=== PATIENT | female | born 1975 | race Caucasian/White ===

== ENCOUNTER 2021-09-25 18:17 | Emergency (ER) | payer OTHER, SELFPAY ==
[2021-09-25 18:35] VITALS: BP 117/68; PULSE 74; RESP 18; TEMP 36.6; O2SAT 99
--- NOTE | 2021-09-25 18:44 | ED.URI ---
HPI - URI/Sore Throat General Chief Complaint: Upper Respiratory Infection Stated Complaint: sorethroat,rt ear pain Source: patient Mode of arrival: ambulatory Limitations: no limitations History of Present Illness HPI Narrative: 46-year-old female presents to [facility] with complaints of right ear pain on and off for the past 2 weeks. Patient reports that pain became worse over the past couple days. Patient has been taking [id number] ibuprofen with minimal relief. Patient reports that she had COVID 1 month ago and continues with a dry lingering cough. Patient denies fever, bodies, chills, shortness of breath or wheezing. Patient is a non-smoker. Patient denies sick contacts. Patient denies recent travel MD elicited complaint: other (right ear pain ) Onset (ago): week(s) (2) Consistency: constant Able to tolerate fluids by mouth: Yes Exacerbating factors: swallowing Treatments prior to arrival: ibuprofen Related Data Home Medications Medication Instructions Recorded Confirmed atorvastatin 10 mg PO DAILY 09/25/21 09/25/21 citalopram 40 mg PO DAILY 09/25/21 09/25/21 levothyroxine 175 mcg PO DAILY 09/25/21 09/25/21 losartan 100 mg PO DAILY 09/25/21 09/25/21 Allergies Allergy/AdvReac Type Severity Reaction Status Date / Time Cephalosporins Allergy Intermediate Rash Verified 09/25/21 18:42 Review of Systems Constitutional: Constitutional: Denies chills, Denies fatigue, Denies fever(s) and Denies weakness ENT: Denies dysphagia, Denies dizziness, Denies epistaxis and Denies sore throat Comments: Right ear pain Cardiovascular: Cardiovascular: Denies chest pain, Denies rapid heart rate and Denies slow heart rate Respiratory: Respiratory: Denies chest congestion, Denies cough and Denies wheezing Gastrointestinal: Gastrointestinal: Denies abdominal pain, Denies diarrhea, Denies nausea and Denies vomiting Integumentary/Breasts: Skin/Breast: Denies rash Neurologic: Denies dizziness PMF Surgical History Surgical History (Updated 09/25/21 @ 18:48 by Emma Goldsmith APRN) H/O: hysterectomy History of carpal tunnel release Family History Family History (Updated 09/25/21 @ 18:48 by Emma Goldsmith APRN) Father Lung cancer Social History Social History (Updated 09/25/21 @ 18:48 by MARIBELL Post Smoking status: Never smoker Comments At time of signature, I agree with nursing past medical, surgical, social and family history. There is no relevant family history pertinent to the presenting complaint. Exam Const: General: no acute distress and alert Nutritional Appearance: well nourished Orientation/consciousness: patient oriented x3 HENMT: Head: normal to inspection Ears: external ears normal, EAC's normal and TM abnormal with fluid behind the TM on the right; not erythematous General nose exam: Normal external nose present and no nasal discharge noted Mouth: Yes moist mucous membranes Throat: posterior oropharynx normal and uvula midline Neck: Neck: normal visual inspection Resp: Effort & Inspection: normal respiratory effort, not labored and not tachypneic Auscultation: clear to auscultation bilaterally Cardio: Rate: regular rate, not bradycardic and not tachycardic Rhythm: regular rhythm Skin: General skin exam: normal color Rashes: no rashes Wounds: no wounds Neuro: General: patient oriented x3, moves all extremities and no meningeal signs Speech: normal speech Extrem: General: normal to inspection Psych: Appearance: grossly normal Mental Status: mental status grossly normal Affect: normal affect Attitude: cooperative Thought content: Yes Normal thought content present Course Course Level of Care: Express Care Visit Vital Signs Vital signs: Vital Signs Temperature 36.6 C 09/25/21 18:35 Pulse Rate 74 09/25/21 18:35 Respiratory Rate 18 09/25/21 18:35 Blood Pressure 117/68 09/25/21 18:35 Pulse Oximetry 99 09/25/21 18:35 Temperature 36.6
== END 2021-09-25 18:58 | disposition home or self-care (01) ==
PROVIDERS: Emergency Provider Nurse Practitioner Family
DX: H65.01 Acute serous otitis media, right ear (principal); E78.00 Pure hypercholesterolemia, unspecified; I10 Essential (primary) hypertension; E03.9 Hypothyroidism, unspecified
CPT/HCPCS: 87081; 87880; 99213; G0463

== ENCOUNTER 2023-07-12 10:56 | Emergency (ER) | payer OTHER, SELFPAY ==
[2023-07-12 11:09] VITALS: BP 130/67; PULSE 83; RESP 16; TEMP 36.7; O2SAT 99
--- NOTE | 2023-07-12 11:29 | ED.URI ---
HPI - URI/Sore Throat General Chief Complaint: Upper Respiratory Infection Stated Complaint: cough,congestion,bilateral ear pain Source: patient Mode of arrival: ambulatory Limitations: no limitations History of Present Illness HPI Narrative: 48-year-old female presents to [facility] with complaints of bilateral ear pain, left is worse than right, runny nose, cough and congestion since this morning. Patient reports that she traveled to [place] last week. Patient denies sick contacts. Patient is nonsmoker. Patient has been taking [id number] Zyrtec and ibuprofen with minimal relief. Patient denies nausea, vomiting, diarrhea, shortness of breath or wheezing. MD elicited complaint: rhinorrhea and nasal congestion Onset (ago): day(s) (1) Able to tolerate fluids by mouth: Yes Treatments prior to arrival: ibuprofen Related Data Home Medications Medication Instructions Recorded Confirmed citalopram 40 mg tablet 40 mg PO DAILY 09/25/21 07/12/23 levothyroxine 175 mcg tablet 175 mcg PO DAILY 09/25/21 07/12/23 losartan 100 mg tablet 100 mg PO DAILY 09/25/21 07/12/23 Allergies Allergy/AdvReac Type Severity Reaction Status Date / Time Cephalosporins AdvReac Mild Hives Verified 07/12/23 11:02 Review of Systems Constitutional: Constitutional: Denies chills, Denies fatigue, Denies fever(s) and Denies weakness ENT: Denies epistaxis, Reports nasal congestion and Denies sore throat Cardiovascular: Cardiovascular: Denies chest pain Respiratory: Respiratory: Reports cough, Denies dyspnea and Denies wheezing Gastrointestinal: Gastrointestinal: Denies diarrhea, Denies nausea and Denies vomiting Musculoskeletal: Musculoskeletal: Denies arthralgias and Denies joint swelling Integumentary/Breasts: Skin/Breast: Denies rash Neurologic: Denies vertigo, Denies dizziness, Denies syncope and Denies headache(s) [facility] Surgical History Surgical History H/O: hysterectomy History of carpal tunnel release Family History Family History Father Lung cancer Social History Social History Smoking status: Never smoker Comments At time of signature, I agree with nursing past medical, surgical, social and family history. There is no relevant family history pertinent to the presenting complaint. Exam Const: General: healthy appearing and no acute distress Nutritional Appearance: well nourished Orientation/consciousness: patient oriented x3 Limitations: no limitations HENMT: Head: normal to inspection Ears: external ears normal, EAC's normal and TM abnormal wth effusion serous bilateral and erythematous on the left Face and sinus: normal facial exam Mouth: Yes Normal oral and palatal mucosa present and Yes moist mucous membranes Teeth and gingiva: dentition normal Throat: posterior oropharynx normal and uvula midline Other: Bilateral nasal congestion noted Eyes: Conjunctivae: conjunctivae normal Neck: Neck: normal visual inspection Resp: Effort & Inspection: normal respiratory effort and not labored Auscultation: clear to auscultation bilaterally, no crackles, no rales, no rhonchi and no wheezes Cardio: Rate: regular rate Rhythm: regular rhythm Skin: General skin exam: normal color Rashes: no rashes Neuro: General: patient oriented x3 Speech: normal speech Gait exam (Neuro): Normal gait present Psych: Affect: normal affect Attitude: cooperative Course Course Level of Care: Express Care Visit Vital Signs Vital signs: Vital Signs Temperature 36.7 C 07/12/23 11:09 Pulse Rate 83 07/12/23 11:09 Respiratory Rate 16 07/12/23 11:09 Blood Pressure 130/67 07/12/23 11:09 Pulse Oximetry 99 07/12/23 11:09 Oxygen Delivery Room Air 07/12/23 11:09 Temperature 36.7 C 07/12/23 11:09 Pulse Rate 83 07/12/23 11:09 Respirator
== END 2023-07-12 11:38 | disposition home or self-care (01) ==
PROVIDERS: Emergency Provider Nurse Practitioner Family
DX: H66.92 Otitis media, unspecified, left ear (principal)
CPT/HCPCS: 99213; G0463

== ENCOUNTER 2023-07-29 10:14 | Emergency (ER) | payer OTHER, SELFPAY ==
--- NOTE | ~2023-07-29 | XR_ITS ---
EXAMINATION: XR chest 2V 07/29/2023 11:29 INDICATION: Cough and fever PROCEDURE: 2 view chest COMPARISON: No prior studies for comparison. FINDINGS: The lungs are clear. The cardiomediastinal silhouette is within normal limits. There are no pleural effusions. There is no pneumothorax suspected. IMPRESSION: 1: NO ACUTE CARDIOPULMONARY DISEASE. Reviewed, dictated and finalized at location L. K TECHNICIAN
[2023-07-29 10:32] VITALS: BP 119/68; PULSE 87; RESP 18; TEMP 36.8; O2SAT 100
--- NOTE | 2023-07-29 11:06 | ED.URI ---
HPI - URI/Sore Throat General Chief Complaint: Upper Respiratory Infection Stated Complaint: Cough/Ears/Fever Time Seen by Provider: 07/29/23 11:06 Source: patient, RN notes reviewed and old records reviewed Mode of arrival: ambulatory Limitations: no limitations History of Present Illness HPI Narrative: 48-year-old female presents to the [facility] with complaints of cough, continued ear discomfort and fevers. Symptoms started prior to the 12 of July. Patient is a smoker Onset (ago): week(s) Treatments prior to arrival: antibiotics and other (steriod) Related Data Home Medications Medication Instructions Recorded Confirmed citalopram 40 mg tablet 40 mg PO DAILY 09/25/21 07/29/23 levothyroxine 175 mcg tablet 175 mcg PO DAILY 09/25/21 07/29/23 losartan 100 mg tablet 100 mg PO DAILY 09/25/21 07/29/23 evolocumab 140 mg/mL subcutaneous 140 mg subcut [id number] 07/29/23 07/29/23 syringe (Repatha Syringe) Allergies Allergy/AdvReac Type Severity Reaction Status Date / Time Cephalosporins AdvReac Mild Hives Verified 07/29/23 10:38 Review of Systems Review of Systems: All systems reviewed & are unremarkable except as noted in HPI and below Constitutional: Constitutional: Reports no additional constitutional complaints Eyes: Eyes: Reports no additional eye complaints ENT: Reports as per HPI and Reports sore throat Cardiovascular: Cardiovascular: Reports no additional cardiovascular complaints, Denies chest pain and Denies dyspnea Respiratory: Respiratory: Reports as per HPI, Denies chest congestion, Denies cough and Denies dyspnea Gastrointestinal: Gastrointestinal: Reports no additional gastrointestinal complaints, Denies abdominal pain, Denies nausea and Denies vomiting Musculoskeletal: Musculoskeletal: Reports no additional musculoskeletal complaints Integumentary/Breasts: Skin/Breast: Reports system reviewed and no additional complaints, except as docu Neurologic: Reports system reviewed and no additional complaints, except as documented Psychiatric: Psychiatric: Reports no additional psychiatric complaints Allergic/Immunologic: Allergic/Immunologic: Reports no additional allergic/immunologic complaints [facility] Surgical History Surgical History H/O: hysterectomy History of carpal tunnel release Family History Family History Father Lung cancer Social History Social History Smoking status: Never smoker Comments At the time of my signature, I reviewed and agree with the nursing past medical, surgical, social, and family history. There is no relevant family history pertinent to the patient complaint. Exam Const: General: cooperative, healthy appearing, comfortable, no acute distress, well developed, alert and well nourished Nutritional Appearance: well nourished Orientation/consciousness: patient oriented x3 Limitations: no limitations HENMT: Head: normal to inspection Ears: hearing grossly normal bilaterally, external ears normal, mastoids normal, no periauricular adenopathy and TM abnormal wth effusion serous bilateral Face/Nose/Sinus: Normal external nose present, Normal nares present, Normal nasal mucous membranes and turbinates present, normal facial exam and face symmetric Face and sinus: normal facial exam and face symmetric Mouth: Yes Normal oral and palatal mucosa present, Yes lip normal and Yes moist mucous membranes Throat: posterior oropharynx normal and uvula midline Eyes: General: appearance normal, both eyes and all related structures Alignment and Position: alignment normal Periorbital: periorbital findings normal Pupils: Equal, round and reactive pupils present EOM: EOMs intact bilaterally Neck: Neck: normal visual inspection, full ROM, no lymphadenopathy and no meningeal signs Chest: Chest palpation & inspection:
== END 2023-07-29 11:57 | disposition home or self-care (01) ==
PROVIDERS: Emergency Provider Nurse Practitioner
DX: J40 Bronchitis, not specified as acute or chronic (principal); J32.9 Chronic sinusitis, unspecified; H65.03 Acute serous otitis media, bilateral; Z79.899 Other long term (current) drug therapy
CPT/HCPCS: 71046; 99213; G0463

== ENCOUNTER 2024-08-03 05:16 | Emergency (ER) | payer SELFPAY ==
[2024-08-03 05:19] VITALS: BP 150/45; PULSE 83; RESP 16; TEMP 36.9; O2SAT 96
--- NOTE | 2024-08-03 07:10 | PC.NURSE ---
PT NOT FOUND IN WAITING ROOM.
--- NOTE | 2024-08-03 07:10 | PC.NURSE ---
Patient did not answer page
--- OUTSIDE RECORDS SUMMARY | 2024-08-09 23:26 | XMS_ITS | Clinical Summary ---
Author Organization [facility] Address [facility] 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 Role Phone Unavailable Primary Care Provider Unavailabl e Social History Tobacco Use Types Packs/Day Years Used Date Smoking Tobacco: Never Assessed Comments Unknown Sex and Gender Information Value Date Recorded Sex Assigned at Not on file Legal Sex Female 7:02 PM CDT Gender Identity Not on file Sexual Orientation Not on file Plan of Treatment Health Maintenance Due Date Last Done Comments Cervical Cancer Screening Pa p Smear (Age 30 to 64) Every 3 Years 1973 Colorectal Cancer Screening Colonoscopy (10 Years) 1973 Annual Physical 02/01/1976 Hepatitis C 1991 DTaP, Tdap and Td Vaccines ( 1 - Tdap) 02/01/1992 Hepatitis B Vaccines (1 of 3 - 19+ 3-dose series) 02/01/1992 Cervical Cancer Screening Pa p with HPV Testing (Age 30 to 64) Every 5 Years 2003 Cervical Cancer Screening with HPV 2003 Mammogram Screening 2013 Zoster Vaccines (1 of 2) 2023 COVID-19 Vaccine (2023-2 5 season) 2024 Influenza Adult (#1) 2024 Meningococcal Vaccine Aged Out No majo janeth eligible based on patient's age to complete this topic Pneumococcal Vaccine: Pediat rics (0 to 5 Years) and At-Risk Patients (6 to 64 Years) Aged Out No longer eligible b ased on patient's age to complete this topic RSV Immunizations Under 20 Months Aged Out No longer eligible based on patient's age to complete this topic
--- OUTSIDE RECORDS SUMMARY | 2024-08-09 23:26 | XMS_ITS ---
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 Role Phone Cassius Ortega Primary Care Provider Anjali Zendejas [phone] REASON FOR VISIT RT achilles tendonitis Encounters Encounter Location Date Provider Diagnosis 1 OF Meenakshi Andrade [place] [address] [employer] [address] [address] 03/06/2024 Anjali Varela Plan Of Treatment No Information Progress Notes * Rafita ALFORDOB:[birth year] (49 yo F)Acc No.[id number]:03/06/2024 Progress Notes Patient:?Deejay ALFORD Provider:?Anjali Varela DPM :1975???Age:49 Y???Sex:Female D ate:03/06/2024 Address: [facility] Pcp:Cassius Ortega Subjective: * Chief Complaints: * ???1. RT achilles tendonitis . * HPI: ???MA assisting with visit::?HPI/Rooming:?......?Primary reason for visit::?Follow-up:?49 y/o female RTO for f/u of RT achilles tendonitis. At last visit, she was advised to continue doing her stretching exercises, RICE, try wearing her previous CAM walker boot consistently. Today, she reports.? * Medical History:? Objective: * Vitals:? * Examination: ???General Examination: ?Constitutional / Appearance: ?No acute distress , Well nourished, Appropriate personal hygiene.?Mental status: ?Cooperative, Oriented to person, place and time, Mood and affect: normal, Judgement and intellect: normal with appropriate response to questions.?Shoes today:?XXXXXX.?Lower Extremity VASCULAR: : ?Pulses:?DP and PT pulses, palpable, bilateral.?Temperature gradient: ?warm from proximal to distal, bilateral.?Pedal hair: ?present, bilateral.?Capillary refill at distal toes?less than 3 seconds.?Lower Extremity DERM: : ?Skin: ?well hydrated , no suspicious lesions, without interdigital maceration, bilateral.?Lower Extremity NEURO: : ?Neurological status: ?normal sensation to sharp/ dull with normal and symmetric muscle tone bilateral.?Lower Extremity MSK: : ?Gait?Gait unremarkable with normal posture, propulsion and balance.?Left lower extremity inspection and palpation: ?No palpable masses or nodules noted..?Right lower extremity inspection and palpation: ?No palpable masses or nodules noted. .? Assessment: Plan: * Treatment: * Images: * Electronic signature of Rosalind Varela DPM on 08/09/2024 at 11:26 PM CLINIC ASSISTANT Sign off status: Pending * Provider:?Anjali Varela DPM Date:?2023 Generated for Edwina marc/Deana/Yomaira on:?08/09/2024 11:26 PM CLINIC ASSISTANT History and Physical Notes * HPI (History of Present Illness) Category Sub-Category Detail Notes Category Not es Primary reason for visit: Follow-up: 49 y/o female RTO for f/u of RT achilles tendonitis. At last visit, she was advised to continue doing her stretching exercises, RICE, try wearing her previous CAM walker boot consistently. Today, she reports MA assisting with visit: HPI/Rooming: ..... Examination Category Sub-Category Detail Notes Category Not es General Examination Mental status: Cooperative, Oriented to person, place and time, Mood and affect: normal, Judgement and intellect: normal with appropriate response to questions Shoes today: XXXXXX Constitutional / Appearance: No acute di stress , Well nourished, Appropriate personal hygiene Lower Extremity VASCULAR: Pulses: DP and PT pulse s, palpable, bilateral Temperature gradient: warm from proximal to distal, bilateral Pedal hair: present, bilateral Capillary refill at distal toes less sandrita n 3 seconds Lower Extremity NEURO: Neurological status: norm al sensation to sharp/ dull with normal and symmetric muscle tone bilateral Lower Extremity MSK: Left lower extremit y inspection and palpation: No palpable masses or nodules noted. Right lower extremity inspec tion and palpation: No palpable masses or nodules noted. Gait Gait unremarkable wi th normal posture, propulsion and balance Lower Extremity DERM: Skin: well hydra dominique , no suspicious lesions, without interdigital maceration, bilateral
--- OUTSIDE RECORDS SUMMARY | 2024-08-09 23:26 | XMS_ITS | Patient Health Record ---
Author Organization 1 OF Meenakshi alexander [facility] Address [address] [place] [address] Care Team Providers Care Test Specialist Name Role Phone Cassius Ortega Primary Care Provider Anjali Zendejas Unavailable [phone] Allergies Allergen (clinical drug ingredient) Drug/Non Drug Allergy documented on EMR Reaction Allergy Type Onset Date Status Medicinal cephalosporin and acting as antibacterial agent (FN) Cephalosporins (uncoded) Unknown Allergy Active Reason For Referral No Information Medications Medication SIG (Take, Route, Fr equency, Duration) Notes Start Date End Date Status CeleXA Active Levothyroxine Sodium Active ibuprofen Active Repatha 140 MG/ML 1 mL Subcutaneous Active Losartan Potassium A ctive Social History Tobacco Use: Social History Observation Description Date Details (start date - stop date) Never Smoker NA - NA Tobacco Use/Smoking Question Answer Notes Are you a nonsmoker Tobacco Control (Standard) Question Answer Notes Tobacco use: Nonsmoker Problems Problem Type SNOMED Code ICD Code Onset Dates Problem Status W/U Status Risk Notes Problem 669232182 Gastrocnemius equinus of left lower extremity (M21.6X2) Active confirmed Vital Signs Height 65 in 02/02/2024 Weight 200 lbs 02/02/2024 BMI 33.28 kg/m2 02/02/2024 Encounters Encounter Location Date Provider Diagnosis 1 OF Meenakshi Andrade [facility] [address] [place] [address] 02/02/2024 Anjali Varela Right Achilles tendinitis M76.61 and Right foot pain M79.671 Assessments Encounter Date Diagnosis (ICD Code) Assessment Notes Treatment Notes Treatment Clinical Notes Section Notes 02/02/2024 Right foot pain (ICD-10 - M79.671) 02/02/2024 Right Achilles tendinitis (ICD-10 - M76.61) Patient visit today included a review of medical history, review of systems, physical exam and discussion of exam findings, diagnostic test results, and discussion of diagnoses and treatment options. Recommended initial treatment today consisting of resting the foot as much as possible, icing of the foot, continued use of the topical and oral anti-inflammatory medications. She was advised to continue doing the exercises that she was given by her friend. I discussed the potential use of heel lifts in her shoes. I recommended that she try wearing the Cam Walker boot that she has at home consistently to reduce inflammation in the Achilles tendon. I discussed the potential of ordering an MRI if her symptoms do not improve. All questions and concerns were addressed. Plan Of Treatment No Information Insurance Providers Payer Name Payer Address Payer Phone Subscriber Number Group Number Insured Name Patient Relationship to Insured Coverage Start Date Coverage End Date [address] [place] [address] [phone] [id number] Deejay Paz Self - patient is the insured Medical (General) History Medical History History ICD Code Anemia, GERD, high blood pressure, thyro id problems Surgical History Surgery Date(Month/Year) hysterectomy
--- OUTSIDE RECORDS SUMMARY | 2024-08-09 23:26 | XMS_ITS ---
Author Organization 1 OF Meenakshi alexander [facility] Address [address] [facility] [address] [place] [address] Care Team Providers Care Candy Supervisor Name Role Phone Cassius Ortega Primary Care Provider Anjali Zendejas Unavailable [phone] Allergies Allergen (clinical drug ingredient) Drug/Non Drug Allergy documented on EMR Reaction Allergy Type Onset Date Status Medicinal cephalosporin and acting as antibacterial agent (FN) Cephalosporins (uncoded) Unknown Allergy Active REASON FOR VISIT RT Achilles Medications Medication SIG (Take, Route, Fr equency, Duration) Notes Start Date End Date Status CeleXA Active Levothyroxine Sodium Active ibuprofen Active Repatha 140 MG/ML 1 mL Subcutaneous Active Losartan Potassium A ctive Social History Tobacco Use: Social History Observation Description Date Details (start date - stop date) Never Smoker NA - NA Tobacco Control (Standard) Question Answer Notes Tobacco use: Nonsmoker Vital Signs Height 65 in 02/02/2024 Weight 200 lbs 02/02/2024 BMI 33.28 kg/m2 02/02/2024 Encounters Encounter Location Date Provider Diagnosis 1 OF Meenakshi Andrade [facility] [address] [address] 02/02/2024 Anjali Varela Right Achilles tendinitis M76.61 and Right foot pain M79.671 Assessments Encounter Date Diagnosis (ICD Code) Assessment Notes Treatment Notes Treatment Clinical Notes Section Notes 02/02/2024 Right Achilles tendinitis (ICD-10 - M76.61) [...] improve. All questions and concerns were addressed. 02/02/2024 Right foot pain (ICD-10 - M79.671) Plan Of Treatment Treatment Notes Assessment Notes Right Achilles tendinitis Patient visit today included a review of [...] improve. All questions and concerns were addressed. Next Appt Details Follow Up: 1 month,Perlita barger on: Progress Notes * Rafita L[birth year]OB:[birth year] (49 yo F)Acc No.[id number]:02/02/2024 Progress Notes Patient:?Deejay ALFORD Provider:?Anjali Varela DPM :1975???Age:49 Y???Sex:Female D ate:02/02/2024 [facility] Pcp:Cassius Ortega Subjective: * Chief Complaints: * ???RT Achilles * HPI: ???MA assisting with visit::?HPI/Rooming:?Janie.?Primary reason for visit::?New Patient Evaluation: ?49 year old female, previous patient, PTO with chief complaint of RT heel pain of 6 months duration. Pt describes pain as sharp, aching, and burning and rates it as 7/10. Pt states the condition has worsened over time. Pt reports she has been RICEing and takes ibuprofen for the pain but has felt little relief.?Pt reports she had a similar issue in her LT heel a few years ago which has improved, but now states that the treatments she had used in the past are not helping her RT heel. She has been using diclofenac gel. She has her old CAM walker boot at home that she tried for one weekend. She states that her friend is a physical therapist and has been giving her exercises for it.? She denies any injury to it..? * ROS:?GENERAL:?NAUSEA, FEVER OR CHILLS?denies,?denies.?UNEXPLAINED LOSS OR GAIN OF WEIGHT?denies.?UNEXPLAINED FATIGUE OR LACK OF ENERGY?denies.?RECENT FALL?denies.?PERIPHERAL VASCULAR:?FATIGUE IN CALF MUSCLE WHILE WALKING? admits.?PAIN, SWELLING OR FEELING OF TIGHTNESS IN LEG ?denies.?FREQUENT OR CHRONIC SWELLING OF LEGS?denies.?TOES TURN BLUE, WHITE, PAINFUL WITH COLD TEMPERATURE?denies.?NEUROLOGICAL:?DIZZINESS, LIGHT HEADED OR FAINTING?denies.?WEAKNESS OR PARALYSIS?denies.?DIFFICULTY WITH BALANCE?denies.?PERIPHERAL NEUROLOGICAL:?BURNING, TINGLING, STINGING SENSATION OF FEET?denies.?NUMBNESS OF FOOT / FEET?denies.?WEAKNESS OF FOOT / FEET?denies.?GASTROINTESTINAL:?ABDOMINAL PAIN?denies.?BLOODY STOOL?denies.?FREQUENT HEARTBURN? admits.?FREQUENT NAUSEA OR VOMITING?denies.?SKIN:?EXCESSIVE SWEATING OF FEET / HANDS?denies.?CHRONIC OR RECURRENT SKIN RASH?denies.?NONHEALING SKIN LESIONS?denies.?TENDENCY TO FORM THICK SCARS (KELOIDS)?denies.?MUSCULOSKELETAL:?LOW BACK PAIN? admits.?HIP PAIN? admits.?KNEE PAIN?denies.?SWELLING / STIFFNESS JOINTS OF HANDS / FEET?denies.?ENDOCRINE:?DELAYED HEALING OF WOUNDS?denies.?INTOLERANCE TO HEAT OR COLD?denies.?EXCESSIVE THIRST?denies.?FREQUENT URINATION?denies.?HEMATOLOGY/ONCOLOGY:?ANEMIA?denies.?BLEED or BRUISE EASILY?denies.?ANTI-COAGULANT USE?denies.? * Medical History:? * Surgical History:?hysterecto my * Hospitalization/Major Diagno stic Procedure:? * Family History:? rheumatoid arthritis, cancer. * Social History:?Tobacco Use:?Tobacco Control (Standard)?Tobacco use:?Nonsmoker ???Drugs/Alcohol:?Alcohol use: Social alcohol use. ?Recreational drugs: Patient denies recreational drug use. ???Miscellaneous:?Exercise: Moderate. ?Living with: family. 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 * Medications:?TakingRepatha 1 40 MG/ML Solution Prefilled Syringe 1 mL Subcutaneous Losartan Potassium CeleXA Levothyroxine Sodium ibuprofen Medication List reviewed and reconciled with the patientTaking Repatha 140 MG/ML Solution Prefilled Syringe 1 mL Subcutaneous Taking Losartan Potassium Taking CeleXA Taking Levothyroxine Sodium Taking ibuprofen Medication List reviewed and reconciled with the patient * Allergies:?Cephalosporins Objective: * Vitals:?Wt:200lbs, Wt-k .72 kg, Ht:65in, BMI:33.28Index. * Examination: ???General Examination: ?Constitutional / Appearance: ?No acute distress , Well nourished, Appropriate personal hygiene.?Mental status: ?Cooperative, Oriented to person, place and time, Mood and affect: normal, Judgement and intellect: normal with appropriate response to questions.?Shoes today:?flip flops.?Lower Extremity VASCULAR: : ?Pulses:?DP and PT pulses, palpable, bilateral.?Temperature gradient: ?warm from proximal to distal, bilateral.?Pedal hair: ?present, bilateral.?Venous insufficiency edema:?No edema noted to the right ankle..?Capillary refill at distal toes? less than 3 seconds, bilateral.?Lower Extremity DERM: : ?Skin: ?well hydrated , no suspicious lesions, no ecchymosis, bilateral.?Lower Extremity MSK: : ?Gait? Gait unremarkable with normal posture, propulsion and balance.?Muscle strength: ?5/5, all 4 quadrants tested, bilateral.?Left lower extremity inspection and palpation: ?No palpable masses or nodules noted..?Right lower extremity inspection and palpation: ?No palpable masses or nodules noted. The Achilles tendon is intact. Pain with palpation along the course of the Achilles tendon, especially at the insertion. No significant thickening of the Achilles tendon noted. Pain with dorsiflexion of the foot against resistance.?Less than 10 degrees of ankle joint dorsiflexion noted with the knee extended, which increases with the knee flexed. No pain with lateral squeeze test of the calcaneus..?Lower Extremity NEURO: : ?General sensation appears? intact, bilateral.?Muscle tone? within normal limits, bilateral.?Diagnostic Studies: : ?X-rays of right lower extremity:?3 views of right foot: No acute fractures or dislocations noted.? No acute abnormalities noted to the calcaneus.? Small posterior calcaneal enthesopathy noted.? Pes cavus foot type with increased calcaneal inclination angle, decreased talar declination angle..? Assessment: * Assessment: 1.?Right foot pain - M79.671 ???2.?Right Achilles tendinitis - M76.61 (Primary)??? Plan: * Treatment: * Procedure Codes:?37763 X-RAY FOOT (3 views), Modifiers: RT * Follow Up:?1 month,prn * Images: * Sign off status: Completed true * Provider:Helga Varela DPM Date:?2023 Generated for Edwina marc/Deana/Yomaira on:?08/09/2024 11:26 PM BURRER OPERATOR History and Physical Notes * HPI (History of Present Illness) Category Sub-Category Detail Notes Category Not es Primary reason for visit: New Patient Evaluation: 49 year old female, previous patient, PTO with chief complaint of RT heel pain of 6 months duration. Pt describes pain as sharp, aching, and burning and rates it as 7/10. Pt states the condition has worsened over time. Pt reports she has been RICEing and takes ibuprofen for the pain but has felt little relief. Pt reports she had a similar issue in her LT heel a few years ago which has improved, but now states that the treatments she had used in the past are not helping her RT heel. She has been using diclofenac gel. She has her old CAM walker boot at home that she tried for one weekend. She states that her friend is a physical therapist and has been giving her exercises for it. She denies any injury to it. MA assisting with visit: HPI/Rooming: Janie Examination Category Sub-Category Detail Notes Category Not es General Examination Mental status: Cooperative, Oriented to person, place and time, Mood and affect: normal, Judgement and intellect: normal with appropriate response to questions Shoes today: flip flops Constitutional / Appearance: No acute di stress , Well nourished, Appropriate personal hygiene Lower Extremity VASCULAR: Venous insufficiency e donal: No edema noted to the right ankle. Pulses: DP and PT pulses, pa lpable, bilateral Temperature gradient: warm from proximal to distal, bilateral Pedal hair: present, bilateral Capillary refill at distal toes less sandrita n 3 seconds, bilateral Lower Extremity NEURO: General sensation appears intac t, bilateral Muscle tone within normal limits , bilateral Lower Extremity MSK: Muscle strength: 5/5, all 4 quadr ants tested, bilateral Left lower extremity inspect ion and palpation: No palpable masses or nodules noted. Right lower extremity inspec tion and palpation: No palpable masses or nodules noted. The Achilles tendon is intact. Pain with palpation along the course of the Achilles tendon, especially at the insertion. No significant thickening of the Achilles tendon noted. Pain with dorsiflexion of the foot against resistance. Less than 10 degrees of ankle joint dorsiflexion noted with the knee extended, which increases with the knee flexed. No pain with lateral squeeze test of the calcaneus. Gait Gait unremarkable wi th normal posture, propulsion and balance Diagnostic Studies: X-rays of right lowe r extremity: 3 views of right foot: No acute fractures or dislocations noted. No acute abnormalities noted to the calcaneus. Small posterior calcaneal enthesopathy noted. Pes cavus foot type with increased calcaneal inclination angle, decreased talar declination angle. Lower Extremity DERM: Skin: well hydra dominique , no suspicious lesions, no ecchymosis, bilateral
--- OUTSIDE RECORDS SUMMARY | 2024-08-09 23:27 | XMS_ITS | Encounter Summary ---
Author Organization [facility] Address [facility] [facility] [place] [address] [place] [address] Care Team Providers Care Meat Molder Name Role Phone Unavailable Primary Care Provider Unavailabl e Encounter Details Date Type Department Care Team (Late st Contact Info) Description 10/28/2014 Abstract [facility] [address] [place] [address] Eunice Benites MD [address] [place] [address] Social History Tobacco Use Types Packs/Day Years Used Date Smoking Tobacco: Never Assessed Comments Unknown Sex and Gender Information Value Date Recorded Sex Assigned at Not on file Legal Sex Female 7:02 PM CDT Gender Identity Not on file Sexual Orientation Not on file documented as of this encounter Plan of Treatment Not on file documented as of this encounter Visit Diagnoses Diagnosis Acute bronchitis documented in this encounter
--- OUTSIDE RECORDS SUMMARY | 2024-08-09 23:27 | XMS_ITS | Encounter Summary ---
Author Organization [facility] Address [facility] [place] [address] [place] [address] Care Team Providers Care Roll Wrapper Name Role Phone Unavailable Primary Care Provider Unavailabl e Encounter Details Date Type Department Care Team (Late st Contact Info) Description 12/22/2003 Abstract [facility] Emergency Services [address] [facility] [place] [id number] Raphael Gilbert, DO [address] [place] [id number] Social History Tobacco Use Types Packs/Day Years Used Date Smoking Tobacco: Never Assessed Comments Unknown Sex and Gender Information Value Date Recorded Sex Assigned at Not on file Legal Sex Female 7:02 PM CDT Gender Identity Not on file Sexual Orientation Not on file documented as of this encounter Plan of Treatment Not on file documented as of this encounter Visit Diagnoses Not on filedocumented in this encounter
--- OUTSIDE RECORDS SUMMARY | 2024-08-09 23:27 | XMS_ITS | Encounter Summary ---
Author Organization [facility] Address [facility] [facility] [place] [address] [place] [address] Care Team Providers Care Terrazzo Mechanic Name Role Phone Unavailable Primary Care Provider Unavailabl e Encounter Details Date Type Department Care Team (Late st Contact Info) Description 12/23/2014 Abstract [facility] [address] [place] [address] Eunice Benites MD [address] [place] [address] Social History Tobacco Use Types [...]
--- OUTSIDE RECORDS SUMMARY | 2024-08-09 23:27 | XMS_ITS | Encounter Summary ---
Author Organization [facility] Address [facility] [place] [address] [place] [address] Care Team Providers Care Continuous Improvement Specialist Name Role Phone Unavailable Primary Care Provider Unavailabl e Encounter Details Date Type Department Care Team (Late st Contact Info) Description 06/04/2013 Abstract [facility] Emergency Services [address] [place] [address] Omar Castañeda [place] [address] Social History Tobacco Use Types Packs/Day Years [...]
--- OUTSIDE RECORDS SUMMARY | 2024-08-09 23:28 | XMS_ITS | Encounter Summary ---
Author Organization [facility] Address [address] [place] [address] Care Team Providers Care Wallcovering Hanger Name Role Phone Cassius Ortega NP Primary Care Provider [phone] Roya Andre Unavailable [phone] Encounter Details Date Type Department Care Team (Late st Contact Info) Description 12/10/2023 3:30 PM CDT Lab [address] [address] Primary hypertension Social History Tobacco Use Types Packs/Day Years Used Date Smoking Tobacco: Never Cigarettes Smokeless Tobacco: Never Alcohol Use Standard Drinks/Week Comments Yes 0 (1 standard drink = 0.6 oz pur e alcohol) socially AUDIT-C Answer Date Recorded Q1: How often do you have a drink containing alc ohol? Monthly or less 04/09/2022 Average Number of Drinks Not on file 022 Frequency of Binge Drinking Not on file 03/2022 PHQ-2 Answer Date Recorded PHQ-2 Total Score (If total score is 3 or more points, staff should administer the PHQ-9) 0 01/08/2023 Personal Safety Answer Date Recorded Have you ever been in or are you currently in a harmful physical or emotional relationship or is someone making you feel afraid or unsafe? 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 <170 mg/dL ??Borderline high: ??170-199 mg/dL ??High: ? >or= 200 mg/dL Ages > or = 20 years ??Desirable: ?<200 mg/dL ??Borderline high: ??200-239 mg/dL ??High: ? >or= 240 mg/dL Literature References: 1. Expert Panel on Integrated Guidelines for Cardiovascular Health and Risk Reduction in Children and Adolescents. Pediatrics 2011;128:S213 2. NCEP Expert Panel. Circulation 2004;110:227 Current Interpretive Data was last revised on 2018. Triglycerides 137 <=149 mg/dL [facility] Comment: Interpretive Data Ages < or = 9 years ??Acceptable: ? <75 mg/dL ??Borderline high: ??75-99 mg/dL ??High: ? >or= 100 mg/dL Ages 10 to 20 years ??Acceptable: ? <90 mg/dL ??Borderline high: ??90-129 mg/dL ??High: ? >or= 130 mg/dL Ages > or = 20 years ??Desirable: ?<150 mg/dL ??Borderline high: ??150-199 mg/dL ??High: ? 200-499 mg/dL ?Very high: ?? >or= 499 mg/dL Literature References: 1. Expert Panel on Integrated Guidelines for Cardiovascular Health and Risk Reduction in Children and Adolescents. Pediatrics 2011;128:S213 2. NCEP Expert Panel. Circulation 2004;110:227 Current Interpretive Data was last revised on 2018. HDL 49 >=40 mg/dL [facility] Comment: Interpretive Data Ages < or = 19 years ??Acceptable: ? >45 mg/dL ??Borderline low: ?? 40-45 mg/dL ??Low: ? <40 mg/dL Ages > or = 20 years ??Desirable: ?>or= 60 mg/dL ??Low: ? <40 mg/dL Literature References: 1. Expert Panel on Integrated Guidelines for Cardiovascular Health and Risk Reduction in Children and Adolescents. Pediatrics 2011;128:S213 2. NCEP Expert Panel. Circulation 2004;110:227 Current Interpretive Data was last revised on 2018. LDL, calculated 59 <=129 mg/dL [facility] Comment: Interpretive Data Ages < or = 19 years ??Acceptable: ? <110 mg/dL ??Borderline high: ??110-129 mg/dL ??High: ?>or= 130 mg/dL Ages > or = 20 years ??Optimal: ? <100 mg/dL ??Near optimal: ?100-129 mg/dL ??Borderline high: ?? 130-159 mg/dL ??High: ?>160 mg/dL Literature References: 1. Expert Panel on Integrated Guidelines for Cardiovascular Health and Risk Reduction in Children and Adolescents. Pediatrics 2011;128:S213 2. NCEP Expert Panel. Circulation 2004;110:227 Current Interpretive Data was last revised on 2018. Non-HDL Cholesterol 86 mg/dL [facility] Comment: Interpretive Data Ages < or = 19 years ??Acceptable: ?<120 mg/dL ??Borderline high: ??120-144 mg/dL ??High: ?>145 mg/dL Ages > or = 20 years ??When triglycerides are >200 mg/dL, Non-HDL cholesterol is a secondary target of ? therapy with treatment goals that are 30 mg/dL greater than the LDL cholesterol target. ? Literature References: 1. Expert Panel on Integrated Guidelines for Cardiovascular Health and Risk Reduction in Children and Adolescents. Pediatrics 2011;128:S213 2. NCEP Expert Panel. Circulation 2004;110:227 Current Interpretive Data was last revised on 2018. Chol/HDL ratio 3 [facility] Blood 12/10/2023 3:29 PM CDT 12/10/2023 6:57 PM CDT us Charly Olson MD LAB BLOOD ORDERABLES Final Res ult [facility] [address] [address] Department [place] [address] documented in this encounter Visit Diagnoses Diagnosis Primary hypertension Unspecified essential hypertension documented in this encounter Care Teams Wallcovering Hanger Relationship Specialty Start [place] [address] [address] [place] [address] PCP - General Family Medicine 02/21/19 Roya Andre PA [address] [place] [address] [facility] [address] [place] [address] Physician Cook [employer]s Orthopedic Surgery 04/09/22 Alina Higginbotham LCSW [address] [facility] [address] [employer] Infectious Diseases 10/08/22 documented as of this encounter
--- OUTSIDE RECORDS SUMMARY | 2024-08-09 23:28 | XMS_ITS | Referral Summary ---
Author Organization [facility] Address [address] [place] [address] Care Team Providers Care In Store Banker Name Role Phone Cassius Ortega NP Primary Care Provider Roya Andre Unavailable Encounters Date Type Department Care Team Description 08/03/2024 9:02 PM RADIOLOGIST PHYSICIAN - 08/04/2024 12:58 AM RADIOLOGIST PHYSICIAN Emergency [facility] Emergency Department [address] [place] [address] Corby Mills MD Knight, Caleb, MD Carpal tunnel syndrome of right wrist (Primary Dx); Wrist swelling, right Discharge Disposition: Discharge to home or self care 08/03/2024 2:55 PM RADIOLOGIST PHYSICIAN Ancillary Procedure [facility] Imaging at [address] [address] Swelling of right hand 08/03/2024 2:50 PM RADIOLOGIST PHYSICIAN Ancillary Procedure [facility] Imaging at [address] [address] Swelling of right hand 08/03/2024 2:15 PM RADIOLOGIST PHYSICIAN Office Visit [facility] Convenient Care at [address] [address] Jane Petty NP Swelling of right hand (Primary Dx); Pain and swelling of right wrist 08/03/2024 Nurse Triage Family Care at [address] [address] Cassius Ortega, NAWAF from Last 3 Months Allergies Active Allergy Reactions Criticality Noted Date Comments Cefazolin Blisters,Redness High Xfwhmwg-Rer-Pzf Reductase Inhibitors Muscle pain,Joint pain Medium 03/26/2022 Medications ALPRAZolam (XANAX) 0.25 mg tablet Take 1 tablet (0.25 mg total) by mouth nightly as needed for anxiety 30 tablet 4 Active losartan (COZAAR) 100 mg tablet TAKE 1 TABLET BY MOUTH DAILY 90 tablet 3 4 Active citalopram (CeleXA) 40 mg tablet TAKE 1 TABLET BY MOUTH EVERY MORNING 90 tablet 3 4 Active levothyroxine (SYNTHROID) 175 mcg tablet TAKE 1 TABLET BY MOUTH DAILY 90 tablet 3 4 Active evolocumab (Repatha Syringe) syringe syringe Inject 1 mL (140 mg total) under the skin every 2 (two) weeks 6 mL 3 4 02/23/20 25 Active semaglutide (WEGOVY) 2.4 mg/0.75 mL auto-injector Inject 0.75 mL (2.4 mg total) under the skin every 7 days 3 mL 3 4 Active Additional Information Patient not taking.Reported on 08/03/2024 Active Problems Problem Noted Date Diagnosed Date Class 1 obesity due to exces s calories with serious comorbidity and body mass index (BMI) of 34.0 to 34.9 in adult 11/25/2023 Assessment & Plan (11/25/2023 11:21 AM CDT): Plan for weight loss is to decrease calories in diet and increase activity Multiple persistent symptoms after COVID-19 10/31 History of COVID-19 11/11/2022 Moderate obstructive sleep apnea 05/07/2021 Assessment & Plan (05/07/2021 2:36 PM CDT): Her sleep study from 05/01/2021 showed moderate sleep apnea. I recommend that she be on CPAP for treatment of her sleep apnea. I have initiated in order for CPAP at [facility] but I would like her to be evaluated by a sleep specialist for further adjustments of her CPAP. I have ordered a refer to Sleep Medicine for further evaluation and treatment. Achilles tendinitis of left lower extremity 08/03 Urinary frequency 09/22/2019 Primary hypertension 05/15/2019 Assessment & Plan (12/10/2023 3:33 PM CDT): Well controlled. Continue losartan. Assessment & Plan (02/19/2023 11:25 AM CDT): B/p goal <140/90 Today - 94/64 Continue - losartan Chronic stable condition Assessment & Plan (11/06/2022 3:14 PM CDT): Normal BP, Continue losartan. Assessment & Plan (05/08/2022 4:01 PM CDT): Continue losartan. Assessment & Plan (10/28/2021 3:31 PM CDT): -Well controlled continue current losartan 100 mg daily Assessment & Plan (05/02/2021 12:49 PM CDT): Controlled Assessment & Plan (04/14/2021 1:56 PM CDT): Continue losartan b/p stable and to goal at 126/76 - goal of less than 135/85 Assessment & Plan (11/01/2020 12:28 PM CDT): Continue on increased Losartan. Monitor BP at home. Assessment & Plan (05/15/2019 9:49 AM CDT): Nontraumatic incomplete tear of right rotator cu ff 08/11/2018 Overview (08/11/2018): Added automatically from request for surgery [id number] Arthritis of right acromioclavicular joint 08/11 Overview (08/11/2018): Added automatically from request for surgery [id number] Impingement syndrome of right shoulder 9 Overview (08/11/2018): Added automatically from request for surgery [id number] Biceps tendinitis of right upper extremity 08/11 Overview (08/11/2018): Added automatically from request for surgery [id number] Bloating 01/19/2018 Assessment & Plan (01/19/2018 8:51 PM CDT): Worsening. She was counseled about diet. Counseled to avoid dairy products and certain green vegetables such as broccoli, brussel sprouts. Anxiety 09/09/2017 Assessment & Plan (11/25/2023 11:20 AM CDT): Continue citalopram at this time Continue alprazolam as needed Revisit anxiety in November at next visit to determine if changes in SSRI are warranted Assessment & Plan (09/09/2017 9:21 AM RADIOLOGIST PHYSICIAN): Uncontrolled with recent stress with marriage and separation. Plan to increase Citalopram to 40 mg daily. Start Xanax 0.5 mg 1 every 8hrs prn. BMI 37.0-37.9, adult 09/09/2017 Assessment & Plan (10/28/2021 3:30 PM CDT): Weight Loss to Achieve Healthy BMI (18.5-24.9) ?? Eat a variety of vegetables such as dark green, red, and orange vegetables. You can also include canned vegetables low in sodium (salt) and frozen vegetables without added butter or sauces. ?? Eat a variety of fresh fruits , canned fruit in 100% juice, frozen fruit, and dried fruit. ?? Include whole grains. At least half of the grains you eat should be whole grains. Examples include whole-wheat bread, wheat pasta, brown rice, and whole-grain cereals such as oatmeal. ?? Eat a variety of protein foods such as seafood (fish and shellfish), lean meat, and poultry without skin (turkey and chicken). Examples of lean meats include pork leg, shoulder, or tenderloin, and beef round, sirloin, tenderloin, and extra lean ground beef. Other protein foods include eggs and egg substitutes, beans, peas, soy products, nuts, and seeds. ?? Choose low-fat dairy products such as skim or 1% milk or low-fat yogurt, cheese, and cottage cheese. ?? Limit unhealthy fats such as butter, hard margarine, and shortening. Assessment & Plan (10/29/2020 3:56 PM CDT): Continue working on weight loss Assessment & Plan (09/09/2017 9:22 AM RADIOLOGIST PHYSICIAN): Weight is unchanged. Discussed the patient's BMI. The BMI is above average; BMI management plan is completed. General weight loss/lifestyle modification strategies discussed (elicit support from others; identify saboteurs; non-food rewards, etc). Right upper quadrant abdominal pain 01/20/2017 Assessment & Plan (01/19/2018 8:46 PM CDT): Recurrent abdominal pain. Associated with tenderness. Differential diagnosis includes GB disease, biliary dyskinesia vs IBS However, US GB (2016) was negative for stones or wall thickness. Plan: Request Repeat US RUQ, HFP, CBC. If US negative, I will obtain HIDA scan with GB EF. Assessment & Plan (01/20/2017 3:06 PM CDT): New onset last 3 weeks. No improvement with PPI. Assoc with foods. RUQ pain on exam. Suspect GB pathology. ER precautions for worsening symptoms. Labs and GB US Vitamin D deficiency 12/16/2013 Overview (11/05/2016): Vitamin D deficiency Impaired fasting glucose 12/16/2013 Overview (11/05/2016): Impaired fasting glucose Hyperlipidemia 12/16/2013 Overview (11/05/2016): Hyperlipidemia Assessment & Plan (12/10/2023 3:33 PM CDT): Check lipid panel. Continue Repatha. Assessment & Plan (11/06/2022 3:15 PM CDT): Resume Repatha. Check labs including LFTs in 3 months. Assessment & Plan (05/08/2022 4:02 PM CDT): The patient to start Praluent and will check lipid panel in 3 months. Hypothyroidism 12/16/2013 Overview (04/13/2018): Hypothyroidism Assessment & Plan (02/19/2023 11:22 AM CDT): No new symptoms, condition stable on current dose of levothyroxine Assessment & Plan (10/28/2021 3:32 PM CDT): -No current symptoms, TSH today -Continue current levothyroxine 175 mcg am daily Assessment & Plan (04/14/2021 1:57 PM CDT): Needs TSH Spinal stenosis of lumbar region 07/24/2013 Benign neoplasm of skin of face 02/04/2012 Encounter for weight loss counseling 02/04/2012 Assessment & Plan (01/08/2023 10:01 AM CDT): Concerned about medication side effects history of PVCs- discussed avoiding phentermine history of anxiety- bupropion may be an option, Sent to pharmacy patient will consider diet and lifestyle changes encouraged Arthralgia of shoulder 07/22/2011 Carpal tunnel syndrome 05/26/2011 Resolved Problems Problem Noted Date Diagnosed Date Resolved Date Abnormal uterine bleeding 09/22/2019 Well female exam with routin e gynecological exam 09/09/2017 01/09/2020 Assessment & Plan (09/09/2017 9:18 AM RADIOLOGIST PHYSICIAN): Pap smear done. Will follow ACOG guidelines. Plan to obtain HSV, RPR, and HIV Screening for malignant neoplasm of cervix 09/09/2017 01/09/2020 Assessment & Plan (09/09/2017 9:18 AM RADIOLOGIST PHYSICIAN): As above. Screening mammogram, encounter for 09/09/2017 01/09/2020 Assessment & Plan (09/09/2017 9:18 AM RADIOLOGIST PHYSICIAN): RX for mammogram Mammogram abnormal 03/26/2014 0 Class 2 severe obesity due t o excess calories with serious comorbidity and body mass index (BMI) of 37.0 to 37.9 in adult 12/16/2013 4 Overview (11/04/2016): Obesity Assessment & Plan (02/19/2023 11:22 AM CDT): She has lost 8 lbs in a month with ozempic at 0.25 mg weekly, will increase to 0.5 mg weekly Continue diet and exercise Assessment & Plan (01/08/2023 9:51 AM CDT): Weight loss to achieve healthy BMI, diet and exercise counseling provided at today's visit Body mass index is 37.15 kg/m??. depression 12/16/20132019 Overview (11/05/2016): Depression Immunizations Name Administration Dates Next Due Hep B Vaccine 07/01/2021,04/14/2021 Influenza, Quadrivalent, Spl it, Preservative Free, Intramuscular 06/15/2022,05/07/2021 Influenza, Trivalent, Cell Culture-based MDCK, Preservative Free, Antibiotic Free, Intramuscular 05/30/2023 Influenza, Trivalent, IM (MDV) 05/02/2014,2008 Influenza, Unspecified 07/02/2022(Deferr ed: Patient Refused),03/02/2022(Deferred: Patient Refused),05/02/2019,05/02/2018, 017 Pfizer SARS-CoV-2 Monovalent Vaccination (12+ Yrs) PURPLE 10/09/2020,09/16/2020 Tdap 12/04/2020,06/18/2009 Social History Tobacco Use Types Packs/Day Years Used Date Smoking Tobacco: Never Cigarettes Smokeless Tobacco: Never Tobacco Cessation:Counseling Given: Not Answered Alcohol Use Standard Drinks/Week Comments Yes 0 [...] making you feel afraid or unsafe? 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 Not on file Last Filed Vital Signs Vital Sign Reading Time Taken Comments Blood Pressure 155/91 08/03/2024 7:29 PM RADIOLOGIST PHYSICIAN Pulse 72 08/03/2024 7:29 PM RADIOLOGIST PHYSICIAN Temperature 36.8 ??C (98.2 ??F) 08/03/2024 7:29 PM CS T Respiratory Rate 18 08/03/2024 5:24 PM RADIOLOGIST PHYSICIAN Oxygen Saturation 100% 08/03/2024 7:29 PM RADIOLOGIST PHYSICIAN Inhaled Oxygen Concentration - - Weight 99.8 kg (220 lb) 08/03/2024 5:24 PM RADIOLOGIST PHYSICIAN Height 165.1 cm (5' 5 ) 08/03/2024 5:24 PM RADIOLOGIST PHYSICIAN Body Mass Index 36.61 08/03/2024 5:24 PM RADIOLOGIST PHYSICIAN Plan of Treatment Not on file Medical Devices Implanted Type Area Brake Specialist Device Identifier Shelf Expiration Date Model / Serial / Lot [employer] Set Implant [employer] Fibertak Biceps Sterile Latex Free [id number]-[id number] - [id number] Implanted:Qty: 1 on 04/09/2022 by Cuate Mcmullen MD at [facility] Right: Shoulder [employer] 08/01/2026 AR-[id number] / / [id number] Procedures Procedure Name Priority Date/Time Associated Diagnosis Comments EGFR STAT 08/03/2024 10:19 PM RADIOLOGIST PHYSICIAN DIFFERENTIAL AUTO STAT 08/03/2024 10: 19 PM RADIOLOGIST PHYSICIAN CRP (ACUTE PHASE) STAT 08/03/2024 10: 19 PM RADIOLOGIST PHYSICIAN ERYTHROCYTE SEDIMENTATION RATE STAT 08/03/2024 10:19 PM RADIOLOGIST PHYSICIAN COMPREHENSIVE METABOLIC PANEL STAT 08/03/2024 10:19 PM RADIOLOGIST PHYSICIAN CBC WITH AUTO DIFFERENTIAL STAT 08/03/2024 10:19 PM RADIOLOGIST PHYSICIAN XR WRIST RIGHT 3 OR MORE VIEWS Schedule SRI, Read SRI (Appt Today, Awaiting Results) 08/03/2024 2:53 PM RADIOLOGIST PHYSICIAN Swelling of right hand XR HAND RIGHT 3 OR MORE VIEWS Schedule SRI, Read SRI (Appt Today, Awaiting Results) 08/03/2024 2:53 PM RADIOLOGIST PHYSICIAN Swelling of right hand SCREENING MAMMOGRAM BILATERAL W NGHIA Schedule Routine, Read Routine (OP Routine) 01/29/2023 8:17 AM CDT Encounter for screening mammogram for malignant neoplasm of breast HEPATITIS C ANTIBODY Routine 12/24/2022 2:16 PM CDT Routine screening for STI (sexually transmitted infection) COLONOSCOPY REPORT 02/25/2017 from Last 3 Months or Most Recently Relevant to Health Maintenance Results * eGFR (08/03/2024 10:19 PM RADIOLOGIST PHYSICIAN) eGFR >90 >=60 mL/min/1. 73 m2 Comment: Interpretive Data Reference Interval Normal ?>/= 90 mL/min/1.73m2 Mildly decreased* ? 60 - 89 mL/min/1.73m2 Mildly to moderately decreased ?45 - 59 mL/min/1.73m2 Moderately to severely decreased ??30 - 44 mL/min/1.73m2 Severely decreased ?15 - 29 mL/min/1.73m2 Kidney Failure ?< 15 ??mL/min/1.73m2 *Relative to young adult level Estimated glomerular filtration rate is determined by the 2020 CKD-EPI equation recommended by the National Kidney Foundation (A Unifying Approach to GFR Estimation: Recommendations of the NKF-ASK Task Force on Reassessing the Inclusion of Race in Diagnosing Kidney Disease, JASN 2020). The CKD-EPI equation should not be used for patients with unstable renal function and has not been validated in children and those over 70. Current interpretive data was last reviewed 2021. Blood 08/03/2024 10:1 9 PM RADIOLOGIST PHYSICIAN 08/03/2024 10:27 PM RADIOLOGIST PHYSICIAN us Andrea Martinez MD LAB BLOOD ORDERABLES Final Res ult [facility] Department [place] [address] * (ABNORMAL) Differential, auto (08/03/2024 10:19 PM RADIOLOGIST PHYSICIAN) Neutrophil abs 6.0 1.5 - 6.5 K/cumm Imm gran abs 0.0 0.0 - 0.1 K/cumm [facility] Lymphocyte abs 3.8(H) 0.8 - 3.3 K/cumm [facility] Monocyte abs 0.9(H) 0.2 - 0.8 K/cumm [facility] Eosinophil abs 0.1 0.0 - 0.5 K/cumm [facility] Basophil abs 0.0 0.0 - 0.1 K/cumm [facility] Neutrophil pct 55.4 % [facility] Comment: Interpretive Data Percent cell count reference ranges are not reported, since discordance with absolute values may lead to misinterpretation of CBC data. Current Interpretive Data was last revised on 2017. Imm gran pct 0.3 % [facility] Comment: Interpretive Data Percent cell count reference ranges are not reported, since discordance with absolute values may lead to misinterpretation of CBC data. Current Interpretive Data was last revised on 2017. Lymphocyte pct 34.8 % [facility] Comment: Interpretive Data Percent cell count reference ranges are not reported, since discordance with absolute values may lead to misinterpretation of CBC data. Current Interpretive Data was last revised on 2017. Monocyte pct 8.3 % [facility] Comment: Interpretive Data Percent cell count reference ranges are not reported, since discordance with absolute values may lead to misinterpretation of CBC data. Current Interpretive Data was last revised on 2017. Eosinophil pct 0.8 % [facility] Comment: Interpretive Data Percent cell count reference ranges are not reported, since discordance with absolute values may lead to misinterpretation of CBC data. Current Interpretive Data was last revised on 2017. Basophil pct 0.4 % [facility] Comment: Interpretive Data Percent cell count reference ranges are not reported, since discordance with absolute values may lead to misinterpretation of CBC data. Current Interpretive Data was last revised on 2017. Blood 08/03/2024 10:1 9 PM RADIOLOGIST PHYSICIAN 08/03/2024 10:27 PM RADIOLOGIST PHYSICIAN us Andrea Martinez MD LAB BLOOD ORDERABLES Final Res ult [facility] [place] [address] * (ABNORMAL) CBC with auto differential (08/03/2024 10:19 PM RADIOLOGIST PHYSICIAN) WBC 10.8(H) 3.8 - 9.9 K/cumm Hgb 11.7(L) 11.9 - 15.5 g/dL [facility] Hct 34.8(L) 35.6 - 45.5 % [facility] Plt 275 150 - 400 K/cumm [facility] MPV 9.0(L) 9.1 - 12.3 fL [facility] RBC 4.00 3.90 - 5.20 M/cumm [facility] MCV 87.0 81.3 - 96.4 fL [facility] MCH 29.3 27.1 - 33.3 pg [facility] MCHC 33.6 32.3 - 35.7 g/dL [facility] RDW CV 13.4 11.1 - 14.9 % [facility] RDW SD 41.9 35.7 - 48.1 fL [facility] NRBC abs 0.00 0.00 - 0.01 K/cumm [facility] Blood 08/03/2024 10:1 9 PM RADIOLOGIST PHYSICIAN 08/03/2024 10:27 PM RADIOLOGIST PHYSICIAN Andrea Martinez MD LAB BLOOD ORDERABLES Final Res ult Performing Organization Address [facility] Co de Phone Number [facility] Department [place] [address] * Erythrocyte sedimentation rate (08/03/2024 10:19 PM RADIOLOGIST PHYSICIAN) Erythrocyte sedimentation rate 21 1 - 30 mm/hr Blood 08/03/2024 10:1 9 PM RADIOLOGIST PHYSICIAN 08/03/2024 10:27 PM RADIOLOGIST PHYSICIAN Andrea Martinez MD LAB BLOOD ORDERABLES Final Res ult Performing Organization Address [facility] de Phone Number [facility] [place] [address] * (ABNORMAL) CRP (acute phase) (08/03/2024 10:19 PM RADIOLOGIST PHYSICIAN) CRP 13.7(H) <=10.0 mg/L Blood 08/03/2024 10:1 9 PM RADIOLOGIST PHYSICIAN 08/03/2024 10:27 PM RADIOLOGIST PHYSICIAN us Andrea Martinez MD LAB BLOOD ORDERABLES Final Res ult [facility] [place] [address] * Comprehensive metabolic panel (08/03/2024 10:19 PM RADIOLOGIST PHYSICIAN) Sodium 140 135 - 145 mmol/L Potassium, pl 4.1 3.3 - 4.9 mmol/L [facility] Chloride 104 97 - 110 mmol/L [facility] CO2 26 22 - 32 mmol/L [facility] Anion gap 10 2 - 15 mmol/L [facility] BUN 14 6 - 25 mg/dL [facility] Creatinine 0.67 0.60 - 1.10 mg/dL [facility] Glucose 102 70 - 199 mg/dL [facility] Comment: Interpretive Data Fasting glucose >/= 126 mg/dl is diagnostic for diabetes. ?? Fasting is defined as no caloric intake for at least 8 hours. Fasting glucose between 100 mg/dl to 125 mg/dl is diagnostic of prediabetes. In a patient with classic symptoms of hyperglycemia or hyperglycemic crisis, a random glucose >/= 200 mg/dl is diagnostic for diabetes. In the absence of unequivocal hyperglycemia, results should be confirmed by repeat testing. The classification and Diagnosis of Diabetes Diabetes Care 202; 46: S19-S40. Current interpretive data was last revised 2022. Calcium 9.9 8.5 - 10.3 mg/dL [facility] Bilirubin, total 0.3 0.1 - 1.2 mg/dL [facility] Protein, pl 7.9 6.5 - 8.5 g/dL [facility] Albumin 4.7 3.5 - 5.0 g/dL [facility] Alk phos 80 40 - 130 Units/L [facility] ALT 20 7 - 45 Units/L [facility] AST 20 10 - 45 Units/L [facility] Blood 08/03/2024 10:1 9 PM RADIOLOGIST PHYSICIAN 08/03/2024 10:27 PM RADIOLOGIST PHYSICIAN Andrea Martinez MD LAB BLOOD ORDERABLES Final Res ult [facility] [place] [address] * XR Wrist Right 3+ Vw (08/03/2024 2:53 PM RADIOLOGIST PHYSICIAN) Anatomical Region Laterality Modality Upper Extremities, Wrist Right Digital Radiography 08/03/2024 4:05 PM RADIOLOGIST PHYSICIAN Narrative 08/03/2024 4:09 PM RADIOLOGIST PHYSICIAN EXAM DESCRIPTION: XR WRIST RIGHT 3 OR MORE VIEWS; XR HAND RIGHT 3 OR MORE VIEWS REASON FOR STUDY: Septic arthritis suspected, wrist, no prior imaging ?? Pt complains of anterior right hand and wrist pain x 2 days. No known injury or prior surgery. Unable to flatten hand ??; Hand swelling/redness, cellulitis suspected ?? Pt complains of anterior right hand and wrist pain x 2 days. No known injury or prior surgery. Unable to flatten hand ? FINDINGS: Three views right wrist and three views right hand submitted without comparison. No acute fractures are identified. ??There is mild triscaphe joint osteoarthritis. ??There is polyarticular interphalangeal joint osteoarthritis. ?? Volar wrist calcification is present. ??There is no dorsal wrist soft tissue swelling. 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 Volar wrist calcification. ??This is nonspecific and can be further evaluated with cross-sectional imaging. THIS IS AN ELECTRONICALLY VERIFIED FINAL REPORT 08/03/2024 4:09 PM - Electronically signed by ??Raphael Flores M.D. D: ??08/03/2024 4:09 PM T: Report ID: [id number] Reading Location: ??[id number] Procedure Note Raphael Flores MD - 08/03/2024 EXAM DESCRIPTION: XR WRIST RIGHT 3 OR MORE VIEWS; XR HAND RIGHT 3 OR MORE VIEWS REASON FOR STUDY: Septic arthritis suspected, wrist, no prior imaging Pt complains of anterior right hand and wrist pain x 2 days. No knowninjury or prior surgery. Unable to flatten hand ; Hand swelling/redness,cellulitis suspected Pt complains of anterior right hand and wrist pain x 2 days. No knowninjury or prior surgery. Unable to flatten hand FINDINGS: Three views right wrist and three views right hand submittedwithout comparison. No acute fractures are identified. There is mild triscaphe joint osteoarthritis. There is polyarticular interphalangeal jointosteoarthritis. Volar wrist calcification is present. There is no dorsal wrist softtissue swelling. IMPRESSION: Mild right triscaphe and polyarticular interphalangeal jointosteoarthritis. Volar wrist calcification. This is nonspecific and can be furtherevaluated with cross-sectional imaging. THIS IS AN ELECTRONICALLY VERIFIED FINAL REPORT 08/03/2024 4:09 PM - Electronically signed by Raphael Flores M.D. T: Report ID: [id number] Reading Location: [place] [address] us Jane Petty NP IMG XR PROCEDURES Final Re sult * XR Hand Right 3+ Vw (08/03/2024 2:53 PM RADIOLOGIST PHYSICIAN) Anatomical Region Laterality Modality Upper Extremities, Hand Right Digital Radiography 08/03/2024 4:05 PM RADIOLOGIST PHYSICIAN Narrative 08/03/2024 4:09 PM RADIOLOGIST PHYSICIAN EXAM DESCRIPTION: XR WRIST RIGHT 3 OR MORE VIEWS; XR HAND RIGHT 3 OR MORE VIEWS REASON FOR STUDY: Septic arthritis suspected, wrist, no prior imaging ?? Pt complains of anterior right hand and wrist pain x 2 days. No known injury or prior surgery. Unable to flatten hand ??; Hand swelling/redness, cellulitis suspected ?? Pt complains of anterior right hand and wrist pain x 2 days. No known injury or prior surgery. Unable to flatten hand ? FINDINGS: Three views right wrist and three views right hand submitted without comparison. No acute fractures are identified. ??There is mild triscaphe joint osteoarthritis. ??There is polyarticular interphalangeal joint osteoarthritis. ?? Volar wrist calcification is present. ??There is no dorsal wrist soft tissue swelling. 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 Volar wrist calcification. ??This is nonspecific and can be further evaluated with cross-sectional imaging. THIS IS AN ELECTRONICALLY VERIFIED FINAL REPORT 08/03/2024 4:09 PM - Electronically signed by ??Raphael Flores M.D. D: ??08/03/2024 4:09 PM T: Report ID: [id number] Reading Location: ??[id number] Procedure Note Raphael Flores MD - 08/03/2024 EXAM DESCRIPTION: XR WRIST RIGHT 3 OR MORE VIEWS; XR HAND RIGHT 3 OR MORE VIEWS REASON FOR STUDY: Septic arthritis suspected, wrist, no prior imaging Pt complains of anterior right hand and wrist pain x 2 days. No knowninjury or prior surgery. Unable to flatten hand ; Hand swelling/redness,cellulitis suspected Pt complains of anterior right hand and wrist pain x 2 days. No knowninjury or prior surgery. Unable to flatten hand FINDINGS: Three views right wrist and three views right hand submittedwithout comparison. No acute fractures are identified. There is mild triscaphe joint osteoarthritis. There is polyarticular interphalangeal jointosteoarthritis. Volar wrist calcification is present. There is no dorsal wrist softtissue swelling. IMPRESSION: Mild right triscaphe and polyarticular interphalangeal jointosteoarthritis. Volar wrist calcification. This is nonspecific and can be furtherevaluated with cross-sectional imaging. THIS IS AN ELECTRONICALLY VERIFIED FINAL REPORT 08/03/2024 4:09 PM - Electronically signed by Raphael Flores M.D. T: Report ID: [id number] Reading Location: [id number] Jane Petty NP IMG XR PROCEDURES Final Re sult * SCREENING MAMMOGRAM BILATERAL W NGHIA (01/29/2023 8:17 AM CDT) Anatomical Region Laterality Modality Breast Bilateral Mammography 01/29/2023 8:26 AM CDT Impressions 01/29/2023 8:26 AM CDT No evidence of malignancy in either breast. FINAL ASSESSMENT: BI-RADS Category 1: Negative. RECOMMENDATION: Recommend return for annual screening mammogram in 12 months. ?? Electronically signed by: Omar Paulson II, D.O. Narrative 01/29/2023 8:26 AM CDT EXAMINATION: BILATERAL SCREENING MAMMOGRAM COMPARISON: Multiple prior studies, most recently 01/22/2022 and dating back to 12/10/2015. TECHNIQUE: Full-field 2D and digital breast tomosynthesis (DBT) images were obtained. CAD was utilized. BREAST PARENCHYMAL COMPOSITION: ??There are scattered areas of fibroglandular density. FINDINGS: There is no suspicious mass, calcification, or distortion in either breast. There has been no significant interval change from the prior study. Result [facility] Oma Crespo NP IMG MAMMO PROCEDURES Fi nal Result * Hepatitis C antibody (12/24/2022 2:16 PM CDT) Hep C Ab Nonreactive Nonreactive [facility] ([facility]) Comment: Interpretive Data Nonreactive: Antibodies to HCV not detected. Does NOT exclude the possibility of recent exposure to HCV. Equivocal: Equivocal for HCV antibodies. Supplemental molecular testing will be automatically performed to determine infection status in accordance with current CDC screening recommendations. ?? Reactive: Positive for HCV antibodies. ??This may represent current or past HCV infection. Supplemental molecular testing will be automatically performed to determine ??current infection status in accordance with current CDC screening recommendations. Interpretive data was last revised on 2019. Testing performed by: [facility], [address] [place] [address]., [address] Blood 12/24/2022 2:16 PM CDT 12/24/2022 6:01 PM CDT Oma Crespo NP LAB MICROBIOLOGY - GENE RAL ORDERABLES Edited Result - Final [facility] ([facility]) 1 [facility] [place] [address] * COLONOSCOPY REPORT (02/25/2017) Anatomical Region Laterality Modality Other Provider Scanning GI PROCEDURE ORDERABLES Final Result from Last 3 Months or Most Recently Relevant to Health Maintenance Insurance [facility] OPEN ACCESS [facility] O Advance Directives For more information, please contact: [phone] * Full Code (Latest Code Status on File) Date Activated Date Inactivated Comments 12/28/2019 12:36 PM 12/29/2019 4:32 PM Care Teams In Store Banker Relationship Specialty [place] [address] [address] [address] PCP - General Family Medicine 02/21/19 Roya Andre PA [address] [place] [address] [address] Physician Wind Turbine Mechanical Engineer Orthopedic Surgery 04/09/22 Alina Higginbotham, [facility] [address] [facility] [address] Principal Developer Infectious Diseases 10/08/22
--- OUTSIDE RECORDS SUMMARY | 2024-08-09 23:28 | XMS_ITS | Encounter Summary ---
Author Organization [facility] Healthcare Address [address] [place] [address] Care Team Providers Care Marking Room Supervisor Name Role Phone Cassius Ortega NP Primary Care Provider Roya Andre Unavailable [phone] Encounter Details Date Type Department Care Team (Late st Contact Info) Description 12/10/2023 Orders Only [place] Vocational Ed Instructor [address] [place] [id number] Charly Olson MD [address] [place] [address] [address] Primary hypertension (Primary Dx) Social History Tobacco Use Types Packs/Day Years [...] on file 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 Gender Identity Not on file Sexual Orientation [...] as of this encounter Visit Diagnoses Diagnosis Primary hypertension- Primary Unspecified essential hypertension documented in this encounter Care Teams Marking Room Supervisor Relationship Specialty [place] [address] [address] [address] PCP - General Family Medicine 02/21/19 Roya Andre PA [address] [place] [address] [facility] [address], [place] [address] Physician Family Lawyer Orthopedic Surgery 04/09/22 Alina Higginbotham LCSW [address] [facility] [address] Instrumentation Instructor Infectious Diseases 10/08/22 documented as of this encounter
--- OUTSIDE RECORDS SUMMARY | 2024-08-09 23:28 | XMS_ITS | Encounter Summary ---
Author Organization [facility] Healthcare Address [address] [place] [address] Care Team Providers Care Director Of Cardiac Rehabilitation Name Role Phone Cassius Ortega NP Primary Care Provider [phone] Roya Andre Unavailable [phone] Reason for Visit * Reason Onset Date Comments Documentation 04/28/2024 Encounter Details Date Type Department Care Team (Late st Contact Info) Description 04/28/2024 Telephone Family Care at [address] [phone] Cassius Ortega NP [address] [place] [address] [address] Documentation Social History Tobacco Use Types Packs/Day Years [...] on file 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 * Telephone Encounter - Yari Amaral MA - 05/01/2024 11:50 AM CDT PA response received: Has the patient lost at least 5 percent of baseline body weight OR has the patient continued to maintain their initial 5 percent weight loss? ACTION REQUIRED: If yes, then documentation is required for approval. Document the patient's weight prior to starting drug therapy for weight loss and the pat ient's current weight, including the dates the weights were taken: YES NO Yes was selected and per office note, pt has not lost at least 5% of base weight since being on this medication. Request denied. PA notes: RE: Denial of request for coverage of Wegovy (semaglutide injection) Dear DEEJAY ALFORD: You or your doctor recently requested prescription coverage for Wegovy (semaglutide injection). To approve or deny this request, we needed additional clinical information from your doctor. Because we did not receive this information within the time allowed to make a decision, the request is denied. This letter and the enclosed information will explain your options and help you decide what to do next. Why your request was denied: Your plan only covers this drug when you experience benefits from taking the drug. We have denied your request because you did not have good outcomes from the drug. We reviewed the information we had. Your request has been denied. Your doctor can send us any new or missing information for us to review. For this drug, you may have to meet other criteria. * Telephone Encounter - Yari Amaral MA - 04/28/2024 2:55 PM CDT PA started for Wegovy 2.4mg pen via Covermymeds. ([place]: [id number]) Rx #: [id number] documented in this encounter Plan of Treatment Not on file documented as of this encounter Visit Diagnoses Not on filedocumented in this encounter Care Teams Director Of Cardiac Rehabilitation Relationship Specialty Start [place] [address] [address]G [address] [place] [address] PCP - General Family Medicine 02/21/19 Roya Andre PA [address] [place] [address] [address] [address] Physician Neurology Technologist Orthopedic Surgery 04/09/22 Alina Higginbotham, SPECIMEN PREPARATION ASSISTANT [address] [facility] [address] Geospatial Applications Developer Infectious Diseases 10/08/22 documented as of this encounter
--- OUTSIDE RECORDS SUMMARY | 2024-08-09 23:28 | XMS_ITS | Clinical Summary ---
Author Organization [facility] Address [address] [place] [address] Care Team Providers Care Level Vial Setter Name Role Phone Cassius Ortega NP Primary Care Provider [phone] Roya Andre Unavailable [phone] Allergies Active Allergy Reactions Criticality Noted Date Comments Cefazolin Blisters,Redness High Swsdgph-Qhz-Oqy Reductase Inhibitors Muscle pain,Joint pain Medium 03/26/2022 [...] skin every 7 days 3 mL 3 Active Additional Information Patient not taking.Reported on [...] have initiated in order for CPAP at [facility] but I would like her to be [...] (08/11/2018): Added automatically from request for surgery [id number] Arthritis of right acromioclavicular joint 08/11 Overview (08/11/2018): Added automatically from request for surgery [id number] Impingement syndrome of right shoulder 9 Overview (08/11/2018): Added automatically from request for surgery [id number] Biceps tendinitis of right upper extremity 08/11 Overview (08/11/2018): Added automatically from request for surgery [id number] Bloating 01/19/2018 Assessment & Plan (01/19/2018 8:51 [...] warranted Assessment & Plan (09/09/2017 9:21 AM PACKER FUSER): Uncontrolled with recent stress with marriage and [...] loss Assessment & Plan (09/09/2017 9:22 AM PACKER FUSER): Weight is unchanged. Discussed the patient's BMI. The BMI is above average; BMI management plan is completed. General weight loss/lifestyle modification strategies discussed (elicit support from others; identify saboteurs; non-food rewards, etc). Right upper quadrant abdominal pain 01/20/2017 Assessment & Plan (01/19/2018 8:46 PM CDT): Recurrent abdominal pain. Associated with tenderness. Differential diagnosis includes GB disease, biliary dyskinesia vs IBS However, US GB (2017) was negative for stones or wall thickness. [...] 01/09/2020 Assessment & Plan (09/09/2017 9:18 AM PACKER FUSER): Pap smear done. Will follow ACOG guidelines. Plan to obtain HSV, RPR, and HIV Screening for malignant neoplasm of cervix 09/09/2017 01/09/2020 Assessment & Plan (09/09/2017 9:18 AM PACKER FUSER): As above. Screening mammogram, encounter for 09/09/2017 01/09/2020 Assessment & Plan (09/09/2017 9:18 AM PACKER FUSER): RX for mammogram Mammogram abnormal 03/26/2014 0 [...] 37.15 kg/m??. depression 12/16/20132019 Overview (11/05/2016): Depression Encounters Date Type Department Care Team Description 08/03/2024 9:02 PM PACKER FUSER - 08/04/2024 12:58 AM PACKER FUSER Emergency [facility] Emergency Department [address] [place] [address] Corby Mills MD Knight, Caleb, MD Carpal tunnel syndrome of right wrist (Primary Dx); Wrist swelling, right Discharge Disposition: Discharge to home or self care 08/03/2024 2:55 PM PACKER FUSER Ancillary Procedure [facility] Imaging at [address] [address] Swelling of right hand 08/03/2024 2:50 PM PACKER FUSER Ancillary Procedure [facility] Medical [facility] Imaging at [address] [address] Swelling of right hand 08/03/2024 2:15 PM PACKER FUSER Office Visit [facility] Con[facility] Care at [address] [address] Jane Petty NP Swelling of right hand (Primary Dx); Pain and swelling of right wrist 08/03/2024 Nurse Triage Family Care at [address] [id number] Cassius Ortega NP from Last 3 Months Immunizations Name Administration Dates Next Due Hep B Vaccine 07/01/2021,04/14/2021 Influenza, Quadrivalent, Spl it, Preservative Free, Intramuscular 06/15/2022,05/07/2021 Influenza, Trivalent, Cell Culture-based MDCK, Preservative Free, Antibiotic Free, Intramuscular 05/30/2023 Influenza, Trivalent, IM (MDV) 05/02/2014,2008 Influenza, Unspecified 07/02/2022(Deferr ed: Patient Refused),03/02/2022(Deferred: Patient Refused),05/02/2019,05/02/2018, 017 Pfizer SARS-CoV-2 Monovalent Vaccination (12+ Yrs) PURPLE 10/09/2020,09/16/2020 Tdap 12/04/2020,06/18/2009 Surgical History Surgery Date Site/Laterality Comments TUBAL LIGATION 08/02/2008 - 08/01/2009 Bilateral tubal ligation BREAST BIOPSY NEG LEFT LUMBAR SPINE SURGERY 08/02/2012 - 08/01/2013 herniated disc l4-5: lumbar spine surgery Dr. Burkett DILATION AND CURETTAGE OF UTERUS 08/02/2004 - 08/01/2005 D&C SECTION HYSTERECTOMY CARPAL TUNNEL RELEASE Bilateral with ulnar release SHOULDER ARTHROTOMY 04/09/2022 Right SPINE SURGERY 06/01/13 Medical History Medical History Date Comments Hypertension Thyroid disease Post depression 2003 +PPD Delayed emergence from general anesthesia slow to wake up PONV (postoperative nausea and vomiting) SHREYA (obstructive sleep apnea) 05/07/2021 Interstitial lung disease (CMS/HCC) (HCC) GERD (gastroesophageal reflux disease) 02/15 Family History Medical History Relation Name Comments Hyperlipidemia Brother Trevor Hyperlipidemi a; Cancer Father Red Lung cancer Father Red Cancer -lung; C ause of : Cancer -lung/Cancer, lung; Cause of : Cancer, lung Cancer Father's Sister 1 Joni Kidney disease Father's Sister 2 Mare Diabetes Maternal Grandmother Nilsa Hyperlipidemia Mother The warden Hyperlipidemi a; Hypertension Mother The warden Hypertension; Hypothyroidism Mother The warden hypothyroidis m; Thyroid disease Mother The warden Thyroid diso rder; Hypertension Other 1 Family history of Hypertension; Diabetes type II Other 2 Family hist ory of Diabetes -Type II; Coronary artery disease Other 3 Fami ly history of Coronary artery disease; Stroke Other 4 Family history of Stroke; Stroke Paternal Grandfather Marcel Arthritis Sister 1 Prachi Other Sister 1 Prachi hpothyroidism; Skin cancer Sister 2 Cancer, skin; Breast cancer Neg Hx Ovarian cancer Neg Hx Relation Name Status Comments Brother Trevor Father Red Father's Sister 1 Joni Father's Sister 2 Mare Maternal Grandmother Nilsa Mother The warden Other 1 Other 2 Other 3 Other 4 Paternal Grandfather Marcel Sister 1 Prachi Sister 2 Social History Tobacco Use Types Packs/Day Years [...] on file Legal Sex Female 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 AM PACKER FUSER Gender Identity Not on file Sexual Orientation Not on file 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 Not on file Obstetrics History Para Term AB IAB SAB Ectopic Multiple Livin g Live Births 3 2 2 1 1 2 2 Date Outcome GA Total Labor Labor/2nd/3rd Weight Sex Type Anes PTL Yoselyn A1 A5 Name Clin 2004 SAB 2006 Term CS-LT ranv Living 2008 Term CS-LT ranv Living Last Filed Vital Signs Vital Sign Reading Time Taken Comments Blood Pressure 155/91 08/03/2024 7:29 PM PACKER FUSER Pulse 72 08/03/2024 7:29 PM PACKER FUSER Temperature 36.8 ??C (98.2 ??F) 08/03/2024 7:29 PM CS T Respiratory Rate 18 08/03/2024 5:24 PM PACKER FUSER Oxygen Saturation 100% 08/03/2024 7:29 PM PACKER FUSER Inhaled Oxygen Concentration - - Weight 99.8 kg (220 lb) 08/03/2024 5:24 PM PACKER FUSER Height 165.1 cm (5' 5 ) 08/03/2024 5:24 PM PACKER FUSER Body Mass Index 36.61 08/03/2024 5:24 PM PACKER FUSER Plan of Treatment Health Maintenance Due Date Last Done Comments Zoster Vaccine (1 of 2) 2023 Regular Well Visit/Exam 18-64 12/24/2023 12/23/2022, 12/04/2020, 05/15/2019, Additional history exists Depression Screening 01/09/2024 01/08/2023, 12/08/2021, 12/04/2020, Additional history exists Breast Cancer Screening-Mammogram 01/30/2024 01/29/2023, 01/22/2022, 06/20/2020, Additional history exists Covid-19 Vaccine (3 - 2023- season) 2024 10/09/2020, 09/16/2020 Colon Cancer Screening-Colonoscopy 02/25/2027 02/25/2017 DTaP/Tdap/Td Vaccine (3 - Td or Tdap) 12/04/2030 12/04/2020, 06/18/2009 Hepatitis C Screening Completed 12/24/2022 Influenza Vaccine Completed 05/11/2024, , 06/15/2022, Additional history exists Pneumococcal vaccine <65 Aged Out No longer eligible based on patient's age to complete this topic Medical Devices Implanted Type Area Teacher Education Director Device Identifier Shelf Expiration Date Model / Serial / Lot [employer] Set Implant [employer]rex Fibertak Biceps Sterile Latex Free Ar-3670 - [id number] Implanted:Qty: 1 on 04/09/2022 by Cuate Mcmullen MD at [facility] Right: Shoulder [employer] 08/01/2026 AR-3670 / / [id number] Procedures Procedure Name Priority Date/Time Associated Diagnosis Comments EGFR STAT 08/03/2024 10:19 PM PACKER FUSER DIFFERENTIAL AUTO STAT 08/03/2024 10: 19 PM PACKER FUSER CRP (ACUTE PHASE) STAT 08/03/2024 10: 19 PM PACKER FUSER ERYTHROCYTE SEDIMENTATION RATE STAT 08/03/2024 10:19 PM PACKER FUSER COMPREHENSIVE METABOLIC PANEL STAT 08/03/2024 10:19 PM PACKER FUSER CBC WITH AUTO DIFFERENTIAL STAT 08/03/2024 10:19 PM PACKER FUSER XR WRIST RIGHT 3 OR MORE VIEWS Schedule SRI, Read SRI (Appt Today, Awaiting Results) 08/03/2024 2:53 PM PACKER FUSER Swelling of right hand XR HAND RIGHT 3 OR MORE VIEWS Schedule SRI, Read SRI (Appt Today, Awaiting Results) 08/03/2024 2:53 PM PACKER FUSER Swelling of right hand SCREENING MAMMOGRAM BILATERAL W GNHIA Schedule Routine, Read Routine (OP Routine) 01/29/2023 8:17 AM CDT Encounter for screening mammogram for malignant neoplasm of breast HEPATITIS C ANTIBODY Routine 12/24/2022 2:16 PM CDT Routine screening for STI (sexually transmitted infection) COLONOSCOPY REPORT 02/25/2017 from Last 3 Months or Most Recently Relevant to Health Maintenance Results * eGFR (08/03/2024 10:19 PM PACKER FUSER) eGFR >90 >=60 mL/min/1. 73 m2 Comment: [...] reviewed 2021. Blood 08/03/2024 10:1 9 PM PACKER FUSER 08/03/2024 10:27 PM PACKER FUSER us Andrea Martinez MD LAB BLOOD ORDERABLES Final Res ult [facility] One [facility] Department [place] [address] * (ABNORMAL) Differential, auto (08/03/2024 10:19 PM PACKER FUSER) Neutrophil abs 6.0 1.5 - 6.5 K/cumm Imm gran abs 0.0 0.0 - 0.1 K/cumm [facility] Lymphocyte abs 3.8(H) 0.8 - 3.3 K/cumm [facility] Monocyte abs 0.9(H) 0.2 - 0.8 K/cumm [facility] Eosinophil abs 0.1 0.0 - 0.5 K/cumm [facility] Basophil abs 0.0 0.0 - 0.1 K/cumm [facility] Neutrophil pct 55.4 % [facility] Comment: Interpretive Data Percent cell count reference ranges are not reported, since discordance with absolute values may lead to misinterpretation of CBC data. Current Interpretive Data was last revised on 2017. Imm gran pct 0.3 % [facility] Comment: Interpretive Data Percent cell count reference ranges are not reported, since discordance with absolute values may lead to misinterpretation of CBC data. Current Interpretive Data was last revised on 2017. Lymphocyte pct 34.8 % [facility] Comment: Interpretive Data Percent cell count reference ranges are not reported, since discordance with absolute values may lead to misinterpretation of CBC data. Current Interpretive Data was last revised on 2017. Monocyte pct 8.3 % [facility] Comment: Interpretive Data Percent cell count reference ranges are not reported, since discordance with absolute values may lead to misinterpretation of CBC data. Current Interpretive Data was last revised on 2017. Eosinophil pct 0.8 % [facility] Comment: Interpretive Data Percent cell count reference ranges are not reported, since discordance with absolute values may lead to misinterpretation of CBC data. Current Interpretive Data was last revised on 2017. Basophil pct 0.4 % [facility] Comment: Interpretive Data Percent cell count reference ranges are not reported, since discordance with absolute values may lead to misinterpretation of CBC data. Current Interpretive Data was last revised on 2017. Blood 08/03/2024 10:1 9 PM PACKER FUSER 08/03/2024 10:27 PM PACKER FUSER Andrea Martinez MD LAB BLOOD ORDERABLES Final Res ult [facility] [place] [address] * (ABNORMAL) CBC with auto differential (08/03/2024 10:19 PM PACKER FUSER) WBC 10.8(H) 3.8 - 9.9 K/cumm Hgb 11.7(L) 11.9 - 15.5 g/dL [facility] Hct 34.8(L) 35.6 - 45.5 % [facility] Plt 275 150 - 400 K/cumm [facility] MPV 9.0(L) 9.1 - 12.3 fL [facility] RBC 4.00 3.90 - 5.20 M/cumm [facility] MCV 87.0 81.3 - 96.4 fL [facility] MCH 29.3 27.1 - 33.3 pg [facility] MCHC 33.6 32.3 - 35.7 g/dL [facility] RDW CV 13.4 11.1 - 14.9 % [facility] RDW SD 41.9 35.7 - 48.1 fL [facility] NRBC abs 0.00 0.00 - 0.01 K/cumm [facility] Blood 08/03/2024 10:1 9 PM PACKER FUSER 08/03/2024 10:27 PM PACKER FUSER us Andrea Martinez MD LAB BLOOD ORDERABLES Final Res ult Performing Organization Address City/[facility]/ZIP Co de Phone Number [facility] Department [place] [address] * Erythrocyte sedimentation rate (08/03/2024 10:19 PM PACKER FUSER) Erythrocyte sedimentation rate 21 1 - 30 mm/hr Blood 08/03/2024 10:1 9 PM PACKER FUSER 08/03/2024 10:27 PM PACKER FUSER Andrea Martinez MD LAB BLOOD ORDERABLES Final Res ult Performing Organization Address [facility]/ZIP Co de Phone Number [facility] Department [place] [address] * (ABNORMAL) CRP (acute phase) (08/03/2024 10:19 PM PACKER FUSER) Pathologist [facility] CRP 13.7(H) <=10.0 mg/L Blood 08/03/2024 10:1 9 PM PACKER FUSER 08/03/2024 10:27 PM PACKER FUSER Andrea Martinez MD LAB BLOOD ORDERABLES Final Res ult Performing Organization Address [facility] Co de Phone Number [facility] [place] [address] * Comprehensive metabolic panel (08/03/2024 10:19 PM PACKER FUSER) Pathologist [facility] Sodium 140 135 - 145 mmol/L Potassium, pl 4.1 3.3 - 4.9 mmol/L [facility] Chloride 104 97 - 110 mmol/L [facility] CO2 26 22 - 32 mmol/L [facility] Anion gap 10 2 - 15 mmol/L [facility] BUN 14 6 - 25 mg/dL [facility] Creatinine 0.67 0.60 - 1.10 mg/dL [facility] Glucose 102 70 - 199 mg/dL [facility] Comment: Interpretive Data Fasting glucose >/= [...] classification and Diagnosis of Diabetes Diabetes Care 2021; 46: S19-S40. Current interpretive data was last revised 2022. Calcium 9.9 8.5 - 10.3 mg/dL [facility] Bilirubin, total 0.3 0.1 - 1.2 mg/dL [facility] Protein, pl 7.9 6.5 - 8.5 g/dL [facility] Albumin 4.7 3.5 - 5.0 g/dL [facility] Alk phos 80 40 - 130 Units/L [facility] ALT 20 7 - 45 Units/L [facility] AST 20 10 - 45 Units/L [facility] Blood 08/03/2024 10:1 9 PM PACKER FUSER 08/03/2024 10:27 PM PACKER FUSER us Andrea Martinez MD LAB BLOOD ORDERABLES Final Res ult [facility] One [facility] Department [place] [address] * XR Wrist Right 3+ Vw (08/03/2024 2:53 PM PACKER FUSER) Anatomical Region Laterality Modality Upper Extremities, Wrist Right Digital Radiography 08/03/2024 4:05 PM PACKER FUSER Narrative 08/03/2024 4:09 PM PACKER FUSER EXAM DESCRIPTION: XR WRIST RIGHT 3 OR [...] D: ??08/03/2024 4:09 PM T: Report ID: [id number] Reading Location: ??[id number] Procedure Note Raphael Flores MD - 08/03/2024 [...] by Raphael Flores M.D. T: Report ID: [id number] Reading Location: [id number] Jane Petty NP IMG XR PROCEDURES Final Re sult * XR Hand Right 3+ Vw (08/03/2024 2:53 PM PACKER FUSER) Anatomical Region Laterality Modality Upper Extremities, Hand Right Digital Radiography 08/03/2024 4:05 PM PACKER FUSER Narrative 08/03/2024 4:09 PM PACKER FUSER EXAM DESCRIPTION: XR WRIST RIGHT 3 OR [...] D: ??08/03/2024 4:09 PM T: Report ID: [id number] Reading Location: ??[id number] Procedure Note Raphael Flores MD - 08/03/2024 [...] by Raphael Flores M.D. T: Report ID: [id number] Reading Location: [place] [address] Jane Petty NP IMG XR PROCEDURES Final [...] significant interval change from the prior study. Oma Crespo CONTRACT PREPARER IMG MAMMO PROCEDURES Fi nal Result * [...] last revised on 2019. Testing performed by: [facility], [address] [place] [address], [place]., [address] Blood 12/24/2022 2:16 PM CDT 12/24/2022 6:01 PM CDT Oma Crespo NP LAB MICROBIOLOGY - [facility] ORDERABLES Edited Result - Final [facility] 1 [facility] Department [place] [address] * COLONOSCOPY REPORT (02/25/2017) Anatomical Region Laterality Modality Other us Provider Scanning GI PROCEDURE ORDERABLES Final Result from Last 3 Months or Most Recently Relevant to Health Maintenance Insurance [facility] OPEN ACCESS [facility] [address] [address] [facility] HMO Advance Directives For more information, please contact: [phone] * Full Code (Latest Code Status on File) Date Activated Date Inactivated Comments 12/28/2019 12:36 PM 12/29/2019 4:32 PM Care Teams Level Vial Setter Relationship Specialty [place] [address] [facility] [address] [address] PCP - General Family Medicine 02/21/19 Roya Andre PA [address] [place] [address] [address] [facility] [place] [address] Physician Marine Equipment Research Engineer Orthopedic Surgery 04/09/22 Alina Higginbotham, [address] [address] Wildlife Biostation Research Ecologist Infectious Diseases 10/08/22
--- OUTSIDE RECORDS SUMMARY | 2024-08-09 23:29 | XMS_ITS | Encounter Summary ---
Author Organization [facility] Healthcare Address [address] [place] [address] Care Team Providers Care Project Mgr Name Role Phone Cassius Ortega NP Primary Care Provider [phone] Roya Andre Unavailable [phone] Encounter Details Date Type Department Care Team (Late st Contact Info) Description 12/24/2022 2:10 PM CDT [address] [address] Screening for HIV (human immunodeficiency virus); Routine screening for STI (sexually transmitted infection) Social History Tobacco Use Types Packs/Day Years Used Date Smoking Tobacco: Never Smokeless Tobacco: Never Alcohol Use Standard Drinks/Week [...] points, staff should administer the PHQ-9) 0 12/08/2021 Comments No Sex and Gender Information Value Date Recorded Sex Assigned at Not on file 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 Gender Identity Not on file Sexual Orientation [...] Procedure Name Priority Date/Time Associated Diagnosis Comments HIV 1/2 ANTIBODY PLUS P24 ANTIGEN Routine 12/24/2022 2:16 PM CDT Screening for HIV (human immunodeficiency virus) HEPATITIS C ANTIBODY Routine 12/24/2022 2:16 PM CDT Routine screening for STI (sexually transmitted infection) RPR Routine 12/24/2022 2:16 PM CDT Routine screening for STI (sexually transmitted infection) documented in this encounter Results * RPR Blood (12/24/2022 2:16 PM CDT) RPR Nonreactive Nonreactive [facility] Comment:Testing performed by : [facility], [address] [place] [address], [facility] Blood 12/24/2022 2:16 PM CDT 12/24/2022 6:01 PM CDT Oma Crespo NP LAB MICROBIOLOGY - [facility] ORDERABLES Final Result [facility] 1 [facility] Department [place] [address] * Hepatitis C antibody (12/24/2022 2:16 PM [...] last revised on 2019. Testing performed by: [facility], [address] [place] [address]., [address] Blood 12/24/2022 2:16 PM CDT 12/24/2022 6:01 PM CDT Oma Crespo NP LAB MICROBIOLOGY - GENE RAL ORDERABLES Edited Result - Final Performing Organization Address [facility]/ZIP Co de Phone Number [facility] 1 [facility] [place] [address] * HIV 1/2 Antibody plus p24 Antigen Blood (12/24/2022 2:16 PM CDT) [facility] HIV 1/2 ab + p24 ag Nonreactive Nonreactive [facility] Comment: Nonreactive for HIV-1 antigen and HIV-1/HIV-2 antibodies. No laboratory evidence of HIV infection. If acute HIV infection is suspected, consider testing for HIV-1 RNA. Testing performed by: [facility], [address] [place] [address]., [address] Blood 12/24/2022 2:16 PM CDT 12/24/2022 6:01 PM CDT Oma Crespo NP LAB MICROBIOLOGY - GENE RAL ORDERABLES Final Result Performing Organization Address [facility] de Phone Number [facility] [address] [place] [address] documented in this encounter Visit Diagnoses Diagnosis Screening for HIV (human immunodeficiency virus) Special screening examination for other specified viral diseases Routine screening for STI (sexually transmitted infection) Screening examination for venereal disease documented in this encounter Care Teams Project Mgr Relationship Specialty Start [place] [address] [facility] [address] [address] PCP - General Family Medicine 02/21/19 Roya Andre PA [address] [place] [address] [facility] [address] [address] Physician Engravings Polisher Orthopedic Surgery 04/09/22 Alina Higginbotham LCSW [address] [facility] [address] Mapping Analyst Infectious Diseases 10/08/22 documented as of this encounter
--- OUTSIDE RECORDS SUMMARY | 2024-08-09 23:29 | XMS_ITS | Encounter Summary ---
Author Organization [facility] Healthcare Address [address] [place] [address] Care Team Providers Care Field Crop Ii Farmworker Name Role Phone Cassius Ortega NP Primary Care Provider [phone] Roya Andre Unavailable [phone] Encounter Details Date Type Department Care Team (Latest Contact Info) Description 10/08/2022 9:39 AM OFFENSIVE COORDINATOR - 10/08/2022 11:59 PM [facility] Hospital Encounter [address] [address] Discharge Disposition: Discharge to home or self care Social History Tobacco Use Types Packs/Day Years [...] on file Legal Sex Female 1:09 AM OFFENSIVE COORDINATOR Gender Identity Not on file Sexual Orientation Not on file 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 documented as of this encounter Medications at Time of Discharge alirocumab 150 mg/mL pen injector Inject 150 mg under the skin every 14 (fourteen) days 6 mL 1 05/14/2022 3 ascorbic acid (VITAMIN C) 500 mg tablet,chewable Take 1 tablet/chew tab (500 mg total) by mouth 2 (two) times a day 60 tablet/chew tab 04/09/2022 3 cholecalciferol (VITAMIN D-3) 2000 unit capsule Take 1 capsule (2,000 Units total) by mouth daily 30 capsule 04/09/2022 3 citalopram (CeleXA) 40 mg tablet TAKE 1 TABLET BY MOUTH EVERY DAY IN THE MORNING 90 tablet 1 09/24/2022 3 evolocumab (REPATHA) syringe syringe Inject 1 mL (140 mg total) under the skin every 14 (fourteen) days 6 mL 1 05/14/2022 3 levothyroxine (SYNTHROID) 175 mcg tablet TAKE 1 TABLET BY MOUTH EVERY DAY 90 tablet 1 09/24/2022 3 losartan (COZAAR) 100 mg tablet TAKE 1 TABLET BY MOUTH EVERY DAY 90 tablet 1 09/24/2022 3 ondansetron (ZOFRAN) 4 mg tabletIndication s:Prevention of Post-Operative Nausea and Vomiting Take 1 tablet (4 mg total) by mouth every 6 (six) hours as needed for nausea or vomiting 30 tablet 1 04/09/2022 3 oxyCODONE-acetam inophen (PERCOCET) 5-325 mg per tabletIndication s:Pain Take 1-2 tablets every 4-6 hours as needed for pain 30 tablet 04/09/2022 3 senna-docusate (PERICOLACE) 8.6-50 mg 1-2 times daily as needed for constipation 30 tablet 1 04/09/2022 3 documented as of this encounter Discharge Disposition Disposition Code Departure Means Destination Discharge to home or self care documented in this encounter Plan of Treatment Not on file documented as of this encounter Procedures Procedure Name Priority Date/Time Associated Diagnosis Comments BLOOD MISC TO [place] Routine 10/08/2022 9: 39 AM OFFENSIVE COORDINATOR documented in this encounter Results * BLOOD MISC TO [place] (10/08/2022 9:39 AM OFFENSIVE COORDINATOR) Test name, chem CCP EDGAR DEJESUS Misc See Footnote EDGAR DEJESUS Comment: Test ?Result ??Flag ??Unit ??RefValue Cyclic Citrullinated Peptide Ab, ?<15.6 ? U ??S ?-- REFERENCE VALUE -- ?<20.0 (Negative) ?Test Performed by: ?[facility] ?[address] [place] [address] ?Elementary Education Teacher: Timothy Renae M.D. Ph.D.; CLIA# [id number] Blood 10/08/2022 9:39 AM OFFENSIVE COORDINATOR 10/08/2022 2:01 PM OFFENSIVE COORDINATOR us Mray Quiroz MD LAB BLOOD ORDERABLES Final Result T[facility]OWILLIE ANJELICA [facility] Department [place] [address] documented in this encounter Visit Diagnoses Not on filedocumented in this encounter Care Teams Field Crop Ii Farmworker Relationship Specialty [place] [address] [address] [place] [address] PCP - General Family Medicine 02/21/19 Roya Andre PA [address] [place] [address] [address] [place] [address] Physician Rib Knitter Orthopedic Surgery 04/09/22 Alina Higginbotham [facility] [address] [facility] [address] Latex Thread Machine Operator Infectious Diseases 10/08/22 documented as of this encounter
--- OUTSIDE RECORDS SUMMARY | 2024-08-09 23:29 | XMS_ITS | Encounter Summary ---
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 [address], [place] [address] Physician Digital Operations Analyst Orthopedic Surgery 04/09/22 Alina Higginbotham LCSW [address] [place] [id number] Intake Assessor Infectious Diseases 10/08/22 documented as of this encounter
--- OUTSIDE RECORDS SUMMARY | 2024-08-09 23:29 | XMS_ITS | Encounter Summary ---
Author Organization [facility] Healthcare Address [address] [place] [address] Care Team Providers Care Social Director Name Role Phone Cassius Ortega NP Primary Care Provider [phone] Roya Andre Unavailable [phone] Encounter Details Date Type Department Care Team (Late st Contact Info) Description 05/06/2023 Telephone Family Care at [address] [address] Cassius Ortega NP [address] [place] [address] [address] Social History Tobacco Use Types Packs/Day Years [...] on file Legal Sex Female 1:09 AM ASL INTERPRETER Gender Identity Not on file Sexual Orientation Not on file 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 * Telephone Encounter - Amelia Amaral - 05/06/2023 10:23 AM CDT Called to get 06/04 appt r/s. Patient mentioned that she has been out of her ozempic for over a weekand needs a refil. She also states that she was on a different medication that she couldn't remember the name of but it had prefilled syringes and she would like a call back about that . documented in this encounter Plan of Treatment Not on file documented as of this encounter Visit Diagnoses Not on filedocumented in this encounter Care Teams Social Director Relationship Specialty [place] [address] [facility] [address] [place] [address] PCP - General Family Medicine 02/21/19 Roya Andre PA [address] [place] [address] [facility] [address] [address] Physician Mailroom Clerk Orthopedic Surgery 04/09/22 Alina Higginbotham, [facility] [address] [facility] [address] Project Executive Infectious Diseases 10/08/22 documented as of this encounter
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
--- OUTSIDE RECORDS SUMMARY | 2024-08-09 23:29 | XMS_ITS | Encounter Summary ---
Author Organization [facility] Address [address] [address] Care Team Providers Care Cream Dipper Name Role Phone Cassius Ortega NP Primary Care Provider [phone] Roya Andre Unavailable [phone] Reason for Visit * Reason Comments Weight Loss Weight loss Encounter Details Date Type Department Care Team (Late st Contact Info) Description 01/08/2023 8:45 AM CDT Office Visit [facility] at [facility] [address] [address] [place] [id number] [place] [address] Encounter for weight loss counseling (Primary Dx); Class 2 severe obesity due to excess calories with serious comorbidity and body mass index (BMI) of 37.0 to 37.9 in adult (HCC) Social History Tobacco Use Types Packs/Day Years Used Date Smoking Tobacco: Never Smokeless Tobacco: Never Tobacco Cessation:Counseling Given: Not [...] staff should administer the PHQ-9) 0 01/08/2023 Comments No Sex and Gender Information Value Date Recorded Sex Assigned at Not on file 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 Gender Identity Not on file Sexual Orientation Not on file 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 Not on file documented as of this encounter Last Filed Vital Signs Vital Sign Reading Time Taken Comments Blood Pressure 114/72 01/08/2023 8:43 AM CDT Pulse 60 01/08/2023 8:43 AM CDT Temperature 36.6 ??C (97.8 ??F) 01/08/2023 8:43 AM CD T Respiratory Rate 18 01/08/2023 8:43 AM CDT Oxygen Saturation 99% 01/08/2023 8:43 AM CDT Inhaled Oxygen Concentration - - Weight 99.7 kg (219 lb 12.8 oz) 01/08/2023 8:43 AM CDT Height 163.8 cm (5' 4.5 ) 01/08/2023 8:43 AM CDT Body Mass Index 37.15 01/08/2023 8:43 AM CDT documented in this encounter Ordered Prescriptions Prescription Sig Dispense Quantity Refills Last Filled Start Date End Date buPROPion XL (WELLBUTRIN XL) 150 mg 24 hr tabletIndications: Encounter for weight loss counseling Take 1 tablet (150 mg total) by mouth every morning 30 tablet 1 01/08/2023 3 documented in this encounter Progress Notes * Brook Powers NP - 01/08/2023 8:45 AM CDT Images from the original note were not included. Subjective/Objective Patient ID: Deejay Paz is a 47 y.o. female. Vital Signs Vitals: 01/08/23 0843 BP: 114/72 BP Location: Left arm Patient Position: Sitting Pulse: 60 Resp: 18 Temp: 36.6 ??C (97.8 ??F) SpO2: 99% Weight: 99.7 kg (219 lb 12.8 oz) Height: 163.8 cm (5' 4.5 ) Chief Complaint Weight Loss (Weight loss) Working on weight loss, reports unable to lose weight despite dietary changes and exercise. Interested in something to help jump-start weight loss. Concerned about possible side effects and cost of medications, declines referral to weight management due to time constraints. Review of Systems Constitutional: Negative for chills, fatigue and fever. HENT: Negative. Respiratory: Negative for chest tightness and shortness of breath. Cardiovascular: Negative for chest pain. Gastrointestinal: Negative for abdominal pain. Endocrine: Negative. Genitourinary: Negative. Musculoskeletal: Negative. Skin: Negative. Neurological: Negative. Negative for weakness. Psychiatric/Behavioral: Negative. Physical Exam Vitals reviewed. Constitutional: Appearance: Normal appearance. She is obese. HENT: Head: Normocephalic. Right Ear: Tympanic membrane normal. Left Ear: Tympanic membrane normal. Nose: Nose normal. Mouth/Throat: Mouth: Mucous membranes are moist. Eyes: Pupils: Pupils are equal, round, and reactive to light. Cardiovascular: Rate and Rhythm: Normal rate and regular rhythm. Heart sounds: Normal heart sounds. Pulmonary: Effort: Pulmonary effort is normal. Breath sounds: Normal breath sounds. Abdominal: General: Bowel sounds are normal. Palpations: Abdomen is soft. Musculoskeletal: General: Normal range of motion. Cervical back: Normal range of motion and neck supple. Skin: General: Skin is warm and dry. Neurological: General: No focal deficit present. Mental Status: She is alert and oriented to person, place, and time. Psychiatric: Mood and Affect: Mood normal. Judgment: Judgment normal. Assessment/Plan Diagnoses and all orders for this visit: Encounter for weight loss counseling (Z71.3) (Primary) Assessment & Plan: Concerned about medication side effects history of PVCs- discussed avoiding phentermine history of anxiety- bupropion may be an option, Sent to pharmacy patient will consider diet and lifestyle changes encouraged Orders: - buPROPion XL (WELLBUTRIN XL) 150 mg 24 hr tablet; Take 1 tablet (150 mg total) by mouth every morning Class 2 severe obesity due to excess calories with serious comorbidity and body mass index (BMI) of37.0 to 37.9 in adult (HCC) (E66.01, Z68.37) Assessment & Plan: Weight loss to achieve healthy BMI, diet and exercise counseling provided at today's visit Body mass index is 37.15 kg/m??. Brook Powers NP This note was generated in part or in whole with voice recognition software. Voice recognition is usually quite accurate but there are speech language pathologist travel areas that can and often occur. All attempts were made to correct these areas. I apologize for any typographical errors that were not detected and corrected. documented in this encounter Miscellaneous Notes * Assessment & Plan Note - Brook Powers NP - 01/08/2023 10:00 AM CDT Associated Problem(s): Encounter for weight loss counseling Concerned about medication side effects history of PVCs- discussed avoiding phentermine history of anxiety- bupropion may be an option, Sent to pharmacy patient will consider diet and lifestyle changes encouraged * Assessment & Plan Note - Brook Powers NP - 01/08/2023 9:51 AM CDT Associated Problem(s): Class 2 severe obesity due to excess calories with serious comorbidity and body mass index (BMI) of 37.0 to 37.9 in adult (HCC) (Resolved 11/25/2023) Weight loss to achieve healthy BMI, diet and exercise counseling provided at today's visit Body mass index is 37.15 kg/m??. documented in this encounter Plan of Treatment Not on file documented as of this encounter Visit Diagnoses Diagnosis Encounter for weight loss counseling- Primary Class 2 severe obesity due to excess calories with serious comorbidity and body mass index (BMI) of 37.0 to 37.9 in adult (HCC) documented in this encounter Care Teams Cream Dipper Relationship Specialty Start [place] [address] [address] [facility] [address] [address] PCP - General Family Medicine 02/21/19 Roya Andre PA [address] [place] [address] [place] [address] Physician Ergonomics Engineer Orthopedic Surgery 04/09/22 Alina Higginbotham, [facility] [address] [facility] [address] Production Line Infectious Diseases 10/08/22 documented as of this encounter
--- OUTSIDE RECORDS SUMMARY | 2024-08-09 23:29 | XMS_ITS | Encounter Summary ---
Author Organization [facility] Address [address] [place] [address] Care Team Providers Care Geoscience Specialist Name Role Phone Cassius Ortega NP Primary Care Provider [phone] Roya Andre Unavailable [phone] Reason for Referral * Diagnostic Imaging (Routine) - Closed Specialty Diagnoses / Procedures Referred By Cara alvarez Referred To Contact Diagnoses Encounter for screening mammogram for malignant neoplasm of breast Procedures SCREENING MAMMOGRAM BILATERAL W Oma Goff NP Phone: tel: fax: [facility] Referral ID Status Reason Start Date Expiration Date Visits Re quested Visits Authorized [id number] Closed 12/23/2022 01/22/2024 1 1 Reason for Visit * Diagnostic Imaging (Routine) - Closed Specialty Diagnoses / Procedures Referred By Cara alvarez Referred To Contact Diagnoses Encounter for screening mammogram for malignant neoplasm of breast Procedures SCREENING MAMMOGRAM BILATERAL W Oma Goff NP Phone: tel: fax: [facility] Referral ID Status Reason Start Date Expiration Date Visits Re quested Visits Authorized [id number] Closed 12/23/2022 01/22/2024 1 1 Encounter Details Date Type Department Care Team (Latest Contact Info) Description 01/29/2023 7:53 AM CDT - 01/29/2023 11:59 PM CDT Hospital Encounter [facility] Imaging and Radiology [address] [place] [address] Encounter for screening mammogram for malignant neoplasm of breast Discharge Disposition: Discharge to home or self [...] on file 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 Gender Identity Not on file Sexual Orientation [...] 01/11/2023 02/19/2023 documented as of this encounter Discharge Disposition Disposition Code Departure Means Destination Discharge to home or self care documented in this encounter Plan of Treatment Not on file documented as of this encounter Procedures Procedure Name Priority Date/Time Associated Diagnosis Comments SCREENING MAMMOGRAM BILATERAL W NGHIA Schedule Routine, Read Routine (OP Routine) 01/29/2023 8:17 AM CDT Encounter for screening mammogram for malignant neoplasm of breast documented in this encounter Results * SCREENING MAMMOGRAM BILATERAL W NGHIA (01/29/2023 [...] change from the prior study. Oma Crespo ALUMNI RELATIONS MANAGER IMG MAMMO PROCEDURES Fi nal Result documented in this encounter Visit Diagnoses Diagnosis Encounter for screening mammogram for malignant neoplasm of breast documented in this encounter Care Teams Geoscience Specialist Relationship Specialty Start [place] [address] [address] [facility] 2 [facility] [address] [place] [address] PCP - General Family Medicine 02/21/19 Roya Andre PA 4 [facility] [address] [address] Physician Chicken Boner Orthopedic Surgery 04/09/22 Alina Higginbotham, [facility] [address] [facility] [address] Director Of User Experience Infectious Diseases 10/08/22 documented as of this encounter
--- OUTSIDE RECORDS SUMMARY | 2024-08-09 23:29 | XMS_ITS | Encounter Summary ---
Author Organization [facility] Address [address] [facility] [address] [place] [address] Care Team Providers Care Spud Sorter Name Role Phone Cassius Ortega NP Primary Care Provider Roya Andre Unavailable Encounter Details Date Type Department Care Team (Late st Contact Info) Description 05/22/2022 Orders Only [facility] Orthopedics and Sports Medicine [address] [facility] [address] [place] [address] Cuate Mcmullen MD [address] [place] [address] [address] [facility] [address] [place] [address] Aftercare following surgery of the musculoskeletal system (Primary Dx) Social History Tobacco Use Types [...] on file 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 Gender Identity Not on file Sexual Orientation Not on file 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 documented as of this encounter Plan of Treatment Not on file documented as of this encounter Visit Diagnoses Diagnosis Aftercare following surgery of the musculoskeletal system- Primary Aftercare following surgery of the musculoskeletal system, NEC documented in this encounter Care Teams Spud Sorter Relationship Specialty [place] [address] [address] PCP - General Family Medicine 02/21/19 Roya Andre PA [address] [facility] [address], [place] [address] Physician Final Finisher Forging Dies Orthopedic Surgery 04/09/22 documented as of this encounter
--- OUTSIDE RECORDS SUMMARY | 2024-08-09 23:29 | XMS_ITS | Encounter Summary ---
Author Organization [facility] Address [address] [facility] [address] [place] [address] Phone Care Team Providers Care Roller Mill Operator Name Role Phone Cassius Ortega NP Primary Care Provider [phone] Roya Andre Unavailable [phone] Encounter Details Date Type Department Care Team (Late st Contact Info) Description 12/25/2022 Orders Only [facility] Obstetrics and Gynecology [address] [facility] 7th [address] [place] [address] Oma Crespo NP [address] [address] Social History Tobacco Use Types Packs/Day Years [...] on file 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 Gender Identity Not on file Sexual Orientation Not on file 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 Not on file documented as of this encounter Ordered Prescriptions Prescription Sig Dispense Quantity Refills Last Filled Start Date End Date metroNIDAZOLE (FLAGYL) 500 mg tablet Take 1 tablet (500 mg total) by mouth 2 (two) times a day for 7 days 14 tablet 12/25/2022 01/01/2023 documented in this encounter Plan of Treatment Not on file documented as of this encounter Visit Diagnoses Not on filedocumented in this encounter Care Teams Roller Mill Operator Relationship Specialty [place] [address] [address] PCP - General Family Medicine 02/21/19 Roya Andre PA [address] [facility] [address], [place] [address] Physician Supervisor Scenic Arts Orthopedic Surgery 04/09/22 Alina Higginbotham [facility] [address] [facility] [address] Diamond Sorter Infectious Diseases 10/08/22 documented as of this encounter
--- OUTSIDE RECORDS SUMMARY | 2024-08-09 23:29 | XMS_ITS | Encounter Summary ---
Author Organization [facility] Address [address] [facility] [address] [place] [address] Care Team Providers Care Slot Manager Name Role Phone Cassius Ortega NP Primary Care Provider [phone] Roya Andre Unavailable [phone] Reason for Referral * Consultation (Routine) - Closed Specialty Diagnoses / Procedures Referred By Cara alvarez Referred To Contact Infectious Diseases Diagnoses Multiple persistent symptoms after COVID-19 [place] [address] [address] [place] [address] Phone: tel: fax: [facility] Infectious Diseases [address] 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 Encounter Details Date Type Department Care Team (Late st Contact Info) Description 08/26/2022 Orders Only [facility] at [facility] [address] [address] [place] [address] [facility] [facility] [address] [place] [address] Multiple persistent symptoms after COVID-19 (Primary Dx) Social History Tobacco Use Types [...] on file 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 Gender Identity Not on file Sexual Orientation Not on file 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 documented as of this encounter Plan of Treatment Scheduled Referrals Name Type Priority Associated Diagnoses Order Schedule Ambulatory referral to Infectious Disease Outpatient Referral Routine Multiple persistent symptoms after COVID-19 Expected: 09/09/2022 (Approximate), Expires: 08/26/2023 documented as of this encounter Visit Diagnoses Diagnosis Multiple persistent symptoms after COVID-19- Primary documented in this encounter Care Teams Slot Manager Relationship Specialty Start [place] [address] [address] [address] PCP - General Family Medicine 02/21/19 Roya Andre PA [address] [place] [address] [address], [place] [address] Physician Ship Cleaner Orthopedic Surgery 04/09/22 documented as of this encounter
--- OUTSIDE RECORDS SUMMARY | 2024-08-09 23:29 | XMS_ITS | Encounter Summary ---
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 documented as of this encounter Plan of Treatment Not on file documented as of this encounter Procedures Procedure Name Priority Date/Time Associated Diagnosis Comments HEPATIC FUNCTION PANEL Routine 09/02/2022 3:16 PM ELECTRIC OPERATOR documented in this encounter Results * (ABNORMAL) Hepatic function panel (09/02/2022 3:16 PM ELECTRIC OPERATOR) Bilirubin, total 0.3 0.1 - 1.2 mg/dL [facility] Bilirubin, direct <0.2 0.1 - 0.3 mg/dL [facility] Protein, pl 7.4 6.5 - 8.5 g/dL [facility] Albumin 4.3 3.5 - 5.0 g/dL [facility] Alk phos 90 40 - 130 Units/L [facility] ALT 72(H) 7 - 45 Units/L [facility] AST 48(H) 10 - 45 Units/L [facility] Blood 09/02/2022 3:16 PM ELECTRIC OPERATOR 09/02/2022 3:22 PM ELECTRIC OPERATOR us Timothy Crouch MD LAB BLOOD ORDERABLES Fi nal Result [facility] [address] [address] Department [place] [address] documented in this encounter Visit Diagnoses Not on filedocumented in this encounter Care Teams Java J2Ee Software Engineer Relationship Specialty Start [place] [address] [address] [facility] [address] [place] [address] PCP - General Family Medicine 02/21/19 Roya Andre PA [address] [place] [address] [address] [place] [address] Physician Lard Tub Washer Orthopedic Surgery 04/09/22 documented as of this encounter
--- OUTSIDE RECORDS SUMMARY | 2024-08-09 23:29 | XMS_ITS | Encounter Summary ---
Author Organization [facility] Address [address] [place] [address] Phone Care Team Providers Care Financial Institution Branch Manager Name Role Phone Cassius Ortega NP Primary Care Provider [phone] Roya Andre Unavailable [phone] Reason for Referral * Diagnostic Imaging (Routine) - Closed Specialty Diagnoses / Procedures Referred By Cara alvarez Referred To Contact Diagnoses Encounter for screening mammogram for malignant neoplasm of breast Procedures SCREENING MAMMOGRAM BILATERAL W Oma Goff NP Phone: tel: fax: [facility] Referral ID Status Reason Start Date Expiration Date Visits Re quested Visits Authorized [id number] Closed 12/23/2022 01/22/2024 1 1 Reason for Visit * Reason Comments Gynecologic Exam Encounter Details Date Type Department Care Team (Latest Contact Info) Description 12/23/2022 7:15 AM CDT Office Visit [facility] Obstetrics and Gynecology [address] [facility] 1st [address] [place] [address] Oma Crespo NP [id number] [address] 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) w abnormal findings (Primary Dx); Urinary urgency; Routine screening for STI (sexually transmitted infection); Screening for HIV (human immunodeficiency virus); Vaginal discharge; Encounter for screening mammogram for malignant neoplasm of breast Social History Tobacco Use Types Packs/Day Years [...] on file Legal Sex Female 1:09 AM [employer] Gender Identity Not on file Sexual Orientation Not on file 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 Not on file documented as of this encounter Last Filed Vital Signs Vital Sign Reading Time Taken Comments Blood Pressure 134/88 12/23/2022 7:22 AM CDT aut omatic Pulse 69 12/23/2022 7:22 AM CDT Temperature - - Respiratory Rate - - Oxygen Saturation - - Inhaled Oxygen Concentration - - Weight 101.7 kg (224 lb 3.2 oz) 12/23/2022 7:22 AM CDT Height 163.8 cm (5' 4.49 ) 12/23/2022 7:22 AM CD T Body Mass Index 37.9 12/23/2022 7:22 AM CDT documented in this encounter Patient Instructions * Patient Instructions* Oma Crespo NP - 12/23/2022 7:15 AM CDT Images from the original note were not included. Treating Hot Flashes Hot flashes are the most common bothersome symptom of menopause. Your hot flashes may occur during the day or at night (also known as night sweats). Your hot flashes may be mild and tolerable, moderate and troublesome, or severe and debilitating. Hot flashes get better with time. Although most women have hot flashes for a few years, some women have them for decades. It is not known why some womenhave severe hot flashes for many years while others have no hot flashes or mild ones that resolve quickly. If your hot flashes are mild or moderate, you may find relief by changing your lifestyle. Ifyou have severe hot flashes, you may still benefit from lifestyle changes, but also may choose to ta ke a nonprescription remedy or a prescription medication, including hormones to help you manage your symptoms. Lifestyle changes Researchers find that women with hot flashes have more sensitive thermostats in their brain, so arecomfortable only in a small range of temperatures. Staying cool and reducing stress are the principal lifestyle changes to treat your hot flashes. Some women can find relief with these options: Avoid warm rooms, hot drinks, hot foods, alcohol, caffeine, excess stress, and cigarette smoking. Wear layers of clothing made from light, breathable fabrics, removing a layer or two when you're hot and replacing them when you're cooler. Cooling products, including sprays, gels, and the Chillow pillow may be helpful. To reduce stress and promote more restful sleep, exercise regularly, but not too close to bedtime. Meditation, yoga, qigong, lexii chi, biofeedback, acupuncture, or massage also will lower your stress levels. When a hot flash is starting, try ???paced respiration?? --slow, deep, abdominal breathing, in through your nose and out through your mouth. Breathe only 5 to 7 times per minute, much more slowly than usual. Try different strategies to stay cool while sleeping. Dress in light, breathable nightclothes. Use layered bedding that can be easily removed during the night. Cool down with a bedside fan. Keep a frozen cold pack or bag of frozen peas under your pillow, and turn the pillow often so that your head is always resting on a cool surface. If you wake at night, sip cool water. Try different techniques for getting back to sleep, such as meditation, paced respiration, or getting out of bed and reading until you become sleepy. Women who are overweight have more hot flashes, so maintain a healthy weight and exercise regularlyto decrease bothersome hot flashes and improve your overall health. Nonprescription remedies Although many nonprescription remedies reduce hot flashes, it's likely that this is because of the ???placebo effect.?? When nonprescription treatments are studied scientifically, they typically areas effective as a placebo (inactive medication). Even if relief is because of the placebo effect, you can expect your hot flashes to decrease by approximately 30% with most nonprescription remedies such as soy, herbs, or acupuncture. Nonprescription products do not receive careful oversight from the government and generally are notstudied carefully enough to know all potential risks and side effects, especially with long-term use. Consider purchasing products made in [facility] that follow good manufacturing practices. Let your healthcare provider know if you are taking a nonprescription remedy. Nonprescription remedies you may consider for hot flash relief include Soy: Eat one or two servings of soy foods daily (containing isoflavones), such as low-fat varietiesof tofu, tempeh, soymilk, or roasted soy nuts. Supplements containing soy isoflavones, such as Promensil, reduce hot flashes in some studies. Herbs: Supplements containing certain herbs like black cohosh, such as Remifemin, decrease hot flashes in some studies. Prescription therapies The following prescription medications reduce hot flashes more than placebos in scientific studies.They may be good options if you have frequent, bothersome hot flashes. Every medication has risks and side effects. Review your medical history with your healthcare provider when considering a prescription medication. Hormone options Prescription hormone therapy with estrogen is the most effective treatment for hot flashes. Although using hormones can increase your risk of breast cancer and cardiovascular disease, studies show that benefits may outweigh risks for healthy women younger than age 60 with moderate to severe hot flashes. The goal is to use the lowest dose of hormone therapy that treats your symptoms for the shortest time necessary. Women with a uterus need to combine estrogen with a progestogen. A new option for women with a uterus combines estrogen with bazedoxifene to protect the uterus (Tom). Bazedoxifene is an estrogen agonist/antagonist, which means it works like estrogen in some tissues and opposes estrogen's actions in others. If it has not been a full year since your last period and you are a healthy nonsmoker, you may consider a combination estrogen-progestin control pill. This will provide contraception, hot flashrelief, and regular periods. Nonhormone options You also may consider nonhormone medications. They are more effective than placebo in scientific studies, although not as effective as hormone therapy. Low-dose paroxetine (Brisdelle) is the only government-approved nonhormone option for treating hot flashes. Certain drugs approved to treat depression reduce hot flashes in women without depression. Effective drugs include paroxetine (Paxil), venlafaxine (Effexor), and escitalopram (Lexapro). You should not take paroxetine if you take tamoxifen for breast cancer. Gabapentin (Neurontin) is a drug approved to treat epilepsy, migraine, and nerve pain, but it also reduces hot flashes. It can cause excessive sleepiness, so it is an especially good option if you have bothersome night sweats and take your gabapentin at bedtime. Sleeping medications such as Ambien, Lunesta, and Benadryl will not reduce your hot flashes but mayhelp you sleep through them. Available by prescription and nonprescription. This MenoNote, developed by the Consumer Education Committee of [employer], provides current general information but not specific medical advice. It is not intended to substitute for the judgment of a person's healthcare provider. Additional information can be found at www. menopause.org. Copyright ?? 2015 [employer]. All rights reserved. [facility] grants permissionto healthcare providers to reproduce this MenoNote for distribution to women in their quest for good health. Made possible by donations to the [facility] Education and Research Fund. Deciding About Hormone Therapy Use Many women experience hot flashes, vaginal dryness, and other physical changes with menopause. For some women, the symptoms are mild and do not require any treatment. For others, symptoms are moderate or severe and interfere with daily activities. Hot flashes improve with time, but some women have bothersome hot flashes for many years. Menopause symptoms often improve with lifestyle changes and nonprescription remedies, but prescription therapies also are available, if needed. Government-approved treatments for bothersome hot flashes include hormone therapy (HT) containing estrogen, as well as a nonhormone medication (paroxetine). Hormone therapy involves taking estrogen in doses high enough to raise the level of estrogen in your blood in order to treat hot flashes and other symptoms. Because estrogen stimulates the lining of the uterus, women with a uterus need to take an additional hormone, progestogen, to protect the uterus. Women without a uterus just take estrogen. If you are bothered only by vaginal dryness, you can use very low doses of estrogen placed directly into the vagina. These low doses generally do not raise blood estrogen levels above postmenopause levels and do not treat hot flashes. You do not need totake a progestogen when using only low doses of estrogen in the vagina. (The MenoNote ???Vaginal Dryness?? covers this topic in detail.) Every woman is different, and you will decide about whether to use HT based on the severity of yoursymptoms, your personal and family health history, and your own beliefs about menopause treatments.Your healthcare professional will be able to help you with your decision. Potential benefits Hormone therapy is one of the most effective treatments available for bothersome hot flashes and night sweats. If hot flashes and night sweats are disrupting your daily activities and sleep, HT may improve sleep and fatigue, mood, ability to concentrate, and overall quality of life. Treatment of bothersome hot flashes and night sweats is the principal reason women use HT. Hormone therapy also simon ts vaginal dryness and painful sex associated with menopause. Hormone therapy keeps your bones strong by preserving bone density and decreasing your risk of osteoporosis and fractures. If preserving bone density is your only concern, and you do not have bothersome hot flashes, other treatments may be recommended instead of HT. Potential risks As with all medications, HT is associated with some potential risks. For healthy women with bothersome hot flashes aged younger than 60 years or within 10 years of menopause, the benefits of HT generally outweigh the risks. Hormone therapy might slightly increase your risk of stroke or blood clots in the legs or lungs (especially if taken in pill form). If started in women aged older than 65 years , HT might increase the risk of dementia. If you have a uterus and take estrogen with progestogen, there is no increased risk of cancer of the uterus. Hormone therapy (combined estrogen and progestogen) might slightly increase your risk of breast cancer if used for more than 4 to 5 years. Using estrogen alone (for women without a uterus) does not increase breast cancer risk at 7 years but may increase risk if used for a longer time. Some studies suggest that HT might be good for your heart if you start before age 60 or within 10 years of menopause. However, if you start HT further from menopause or after age 60, HT might slightly increase your risk of heart disease. Although there are risks associated with taking HT, they are not common, and most go away after you stop treatment. Potential adverse events Hormone therapy can cause breast tenderness, nausea, and irregular bleeding or spotting. These adverse effects are not serious but can be bothersome. Reducing your dose of HT or switching the form ofHT you use often can decrease adverse effects. Weight gain is a common problem for midlife women, associated with both aging and hormone changes. Hormone therapy is not associated with weight gain and may lower the chance of developing diabetes. Hormone therapy options Each woman must make her own decision about HT with the help of a healthcare professional. If you decide to take HT, the next step is to choose between the many HT options available to find the best dose and route for you. With guidance from your healthcare professional, you can try different formsof HT until you find the type and dose that treats your symptoms with few adverse effects. Pill or non-pill Hormone therapy is available as a daily pill, but it also may be taken as a skin patch, gel, cream,spray, or vaginal ring. Non-pill forms may be more convenient. Hormone therapy pills need to be taken every day, but skin patches are changed only once or twice weekly, and the HT vaginal ring is changed only every 3 months. Hormone therapy taken in non-pill form enters your blood stream more directly, with less effect on the liver. Studies suggest that this may lower the risk of blood clots in the legs and lungs compared with HT taken as a pill. Estrogen alone or estrogen plus progestogen If you have a uterus, you will need to take progestogen with your estrogen. Many pills and some patches contain both hormones together. Otherwise, you will need to take two separate hormones (eg, estrogen pill with progestogen pill or estrogen patch with progestogen pill). Taking both hormones every day usually results in no bleeding. Women who prefer regular periods can take estrogen every day and progestogen for about 2 weeks each month. Another option is to take estrogen combined with a nonhormone medication (bazedoxifene) to protect the uterus. If you do not have a uterus, you can take estrogen alone, without a progestogen. Dose of estrogen As with all medications, you should take the lowest dose of estrogen that relieves your hot flashes. You can work with your healthcare professional to find the right dose for you. It typically takes about 8 to 12 weeks for HT to have its full effect, so doses should be adjusted slowly. Even low doses of estrogen will preserve your bone density and reduce your risk of a fracture. Stopping hormone therapy There is no ???right?? time to stop HT. Many women try to stop HT after 4 to 5 years because of concerns about potential increased risk of breast cancer. Other women may lower doses or change to non-pill forms of HT. Hot flashes may or may not return after you stop HT. Although not proven by studies, slowly decreasing your dose of estrogen over several months or even over several years may reduce the chance that your hot flashes will come back. You and your healthcare professional will work together to decide the best time to stop HT. If very bothersome hot flashes or night sweats return when you stop HT, you will need to reassess your individual risks and benefits to decide whether to continue HT. Because there may be greater risks with longer duration of use and as you age, you and your healthcare professional will work together to decide what is the best option for you. This MenoNote, developed by the [employer] Education Committee of [employer] [place] [employer], provides current general information but not specific medical advice. It is not intended to substitute for the judgment of a person's healthcare professional. Additional information can be found at www. menopause.org. Copyright ?? 2021 The [employer]. All rights reserved. [facility] grants permissionto healthcare professionals to reproduce this MenoNote for distribution to women in their quest [facility]. Made possible by donations to the [facility] Education and Research Fund. Bioidentical Hormone Therapy: Custom Compounded versus Government Approved Many types of hormone therapy are available for you to use for your menopause symptoms. These include hormones that are manufactured to be chemically identical to the naturally occurring hormones produced by your ovaries during the reproductive years, principally estradiol, progesterone, and testosterone. Many of these products are derived from natural sources, including yams or soy. Although theterm bioidentical hormones often is used to refer to these identical copies of natural hormones (typically prescribed as custom mixes or compounds for an individual woman), bioidentical hormones is aterm invented by marketers and has no clear scientific meaning. Although natural hormones are not necessarily safer or more effective than other forms of estrogen and progestogen, some women prefer to use hormones after menopause that are identical to those theirovaries produced when they were younger. If you prefer to treat your bothersome menopause symptoms with hormones that are chemically identical to those you produced naturally before menopause, ask your healthcare provider to prescribe estradiol and progesterone products that are scientifically tested and government approved. Estradiol is available as an oral tablet, skin patch, topical gel, topical spray, and vaginal ring. Low doses of e stradiol used in the vagina (to treat vaginal dryness and painful intercourse but not hot flashes) are available as a vaginal tablet, cream, and ring. Progesterone is available as an oral capsule (see table below for product names). Bioidentical custom-compounded hormones Some healthcare providers prescribe custom-mixed (custom-compounded) bioidentical hormones containing one or more natural hormones mixed in differing amounts. These products not only contain the active hormone(s) but also other ingredients to create a cream, gel, lozenge, tablet, spray, or skin pellet. Healthcare providers who prescribe bioidentical hormones often claim that these products are more safe and effective than clinically tested and government- approved hormones produced by large pharmaceutical companies. They also may assert that bioidentical hormones slow the aging process. There is no scientific evidence to support any of these claims. Government-approved hormone products are required by law to come with a package insert that describes possible risks and side effects. Custom-compounded hormones are not required to come with this information, but this does not mean they are safer. They contain the same active hormones (such as estradiol and progesterone), so they share the same risks. Custom-compounded hormones allow for individualized doses and mixtures; however, this may result inreduced efficacy or greater risk. These compounds do not have government approval because individually mixed recipes are not tested to verify that the right amount of hormone is absorbed to provide predictable hormone levels in blood and tissue. If you have a uterus, there are no studies showing that the amount of progesterone in these custom-mixed hormones is enough to protect you from developing uterine cancer. There is a long history of pharmacies providing a wide range of compounded products, typically whenan equivalent government-approved product is not available. Because preparation methods vary from one pharmacist to another and between pharmacies, you may receive different amounts of active medication every time you fill the prescription. Inactive ingredients may vary from batch to batch as well.Sterile production technique and freedom from undesired contaminants are additional concerns. Expense is another issue, because most custom-compounded preparations are viewed as experimental drugs and are not covered by insurance plans. Determining the right dose The right dose of hormones for you is the lowest dose of estrogen that treats your menopause symptoms combined with enough progestogen to protect your uterus from cancer. It is not necessary to checkblood, urine, or saliva hormone levels to find the right dose. During reproductive life, estrogen levels vary throughout the menstrual cycle and during each day, so there is no perfect hormone level for any woman. Recommendations for natural hormone therapy options If you prefer to use hormones for your menopause symptoms that are identical to the hormones you produced naturally before menopause, ask your healthcare provider for government-approved products containing estradiol and progesterone. There is no benefit to using custom-compounded hormones, and there may be additional risks. Government-Approved Natural Hormone Therapy Products Systemic doses of estradiol/progesterone for treatment of hot flashes Estradiol oral tablet: Estrace, generics Estradiol skin patch: Karolyn, Climara, Esclim, Menostar, Vivelle (Dot), Estraderm, generics Estradiol skin gel/cream: EstroGel, Elestrin, Divigel, Estrasorb Estradiol skin spray: Evamist Estradiol vaginal ring: Femring Progesterone oral tablet: Prometrium, generics Estradiol plus progesterone combined oral capsule: Bijuva Low doses of vaginal estradiol for treatment of vaginal dryness and pain with intercourse Vaginal cream: Estrace vaginal cream Vaginal ring: Estring Vaginal tablet: Vagifem Vaginal insert: Imvexxy This MenoNote, developed by [employer], provides current general information but not specific medical advice. It is not intended to substitute for the judgment of a person'shealthcare provider. Additional information can be found at www.menopause.org. Copyright ?? 2020 The [employer]. All rights reserved. [facility] grants permissionto healthcare providers to reproduce this MenoNote for distribution to women in their quest for good health. Made possible by donations to the [facility] Education and Research Fund. Menopause and Sleep Problems Some women experience menopause-related sleep problems, especially if hormone changes cause hot flashes or sweats during the night. Lack of sleep and poor- quality sleep can make you tired, irritable,and keating. When you are tired, you may have difficulty concentrating, remembering things, working efficiently, and coping with daily stresses. You may be less patient with family and friends. Difficulty coping can lead to more stress, which can make sleep problems even worse. Adequate sleep is required for good health. You have had enough sleep when you can function in an alert state during waking hours. Most adults need between 7 and 9 hours of sleep each night. During the menopause transition, you may find that you have more trouble falling asleep, staying asleep, or waking up feeling refreshed. These interventions may improve your sleep: Lifestyle changes Maintain an environment that promotes sleep. Think quiet, cool, and dark. A white noise machine maybe helpful. If you have night sweats, try a bedside fan, light pajamas and bedding, and placing an ice pack under your pillow--turning the pillow over during the night so that your face rests on the cool side. Try relaxation techniques such as meditation or slow deep-breathing exercises. You can learn these techniques through books, videos, and classes. Avoid TV, computer screens, smart phones, and electronic readers for at least an hour before bedtime, because the light from these devices may disrupt sleep. Follow the 15-minute rule. If you do not fall asleep within 15 minutes, get up, leave the bedroom, and do something relaxing in another room, such as reading a book or magazine or listening to quiet music. Return to bed when you are drowsy. Follow a regular sleep routine. Try to wake up and go to bed at about the same time each day, even on weekends. Use the bedroom only for sleep and sex. Avoid stimulants such as alcohol, caffeine, and nicotine throughout the entire day, not just duringthe evening. Although alcohol is initially a sedative, it often results in disrupted sleep. The stimulant effects of caffeine may last up to 20 hours. Coffee, tea, and cola are not the only culprits.Many pain relievers, diuretics, allergy and cold medications, and weight-control aids also contain caffeine. Avoid eating a large meal or sweets right before bedtime. This may disrupt sleep--and also promote weight gain. If your sleep is disrupted by your partner's late-night activities or snoring, discuss how this is affecting your sleep and consider solutions. Snoring may be a sign of sleep apnea, so your partner may benefit from seeing his or her healthcare provider. Exercise almost every day. Daily exercise improves sleep, but avoid strenuous exercise close to bedtime. If your sleep problems do not respond to lifestyle changes, consult your healthcare provider about other treatment options and to rule out specific causes of sleep problems such as thyroid abnormalities, depression, anxiety, allergies, restless leg syndrome, or sleep apnea (breathing problems during sleep). Women with serious sleep disturbances may benefit from consultation with a sleep specialist. Treatments Herbs and supplements: Melatonin, valerian, chamomile, lavender, lemon balm, and passion flower maybe mild sedatives, although scientific data are limited. Government oversight of herbs and supplements is limited, so purchase products made in the [place] under good manufacturing practices. [id number] sleep aids: Many contain diphenhydramine (eg, Benadryl) and may help you fall asleep and stay asleep. Try low doses (25 mg or less) to reduce the risk of morning grogginess. Cognitive behavioral therapy (CBT): CBT is a specific form of psychotherapy that effectively treatsmany sleep problems. Prescription sleep medications: Medications approved to treat sleep problems may be helpful to break a cycle of insomnia but ideally should be used only as a short-term solution. Some result in morning fatigue, they can become less effective over time, and they can be habit forming. The grogginess associated with sleep medications can increase the risk of falls, so try to avoid sleep medications if you are at increased risk of falling. Treatments for night sweats: If you have bothersome hot flashes and/or night sweats that disrupt sleep, consider treating your nighttime symptoms to improve your sleep. Effective treatments for nightsweats include hormone therapy and nonhormonal medications such as certain low-dose antidepressants. Hormone therapy has other benefits and risks, so you should speak with your healthcare provider tosee whether hormones or other medications that treat night sweats are right for you. With any medication you choose for sleep, always use the lowest dose that treats your sleep problems for the shortest time needed. For more information about sleep problems, review Your Guide to Healthy Sleep (www.nhlbi.nih.gov/files/docs/public/sleep/healthy_sleep.pdf) from the National Heart, Lung, and Blood [place], as wellas the National Sleep Foundation website, www.sleepfoundation.org. This MenoNote, developed by the Consumer Education Committee of [employer], provides current general information but not specific medical advice. It is not intended to substitute for the judgment of a person's healthcare provider. Additional information can be found at www. menopause.org. Copyright ?? 2015 The [employer] [place] [employer]. All rights reserved. [facility] grants permissionto healthcare providers to reproduce this MenoNote for distribution to women in their quest for good health. Made possible by donations to the [facility] Education and Research Fund. Menopause and Depression Sensitivity to reproductive events In addition to the physical changes (hot flashes, night sweats, and vaginal dryness) that may happen as you transition into menopause, many women experience mood changes, depressive symptoms, and sometimes, severe depression during this time. Although each woman is different, many women have found that they are very sensitive to changes in hormone levels. These women may experience increases in symptoms such as depression and/or anxiety during times of hormone changes, such as during the premenstrual period, , and after having a baby (), as well as during the menopause transition or perimenopause. Like many women, you may find that you are experiencing depressive symptomsas you transition through menopause. Depressive and menopause symptoms Depressive symptoms may include being sad and anxious, not being interested in or enjoying your usual activities, being very tired and lacking energy, experiencing sleep problems and appetite changes, feeling hopeless and worthless, and having thoughts of or suicide. Depression, which also is described as a major depressive disorder or clinical depression, is a serious disorder that affectsyour daily life and activities. If you have these symptoms for 2 weeks or longer, you may be diagnosed with depression. It is important to note that not all midlife women experience mood problems, but some women are more vulnerable than others to developing either depressive symptoms or an episode of clinical depression during the menopause transition, especially those women who have had depression previously. The menopause transition is a time of physical and psychological change for many midlife women. Often the symptoms you may experience during perimenopause, such as hot flashes, night sweats, sleep and sexual disturbances, weight and energy changes, and memory lapses, can overlap with symptoms of depression, so it may be difficult for your healthcare practitioner to diagnose and treat you accordingly. In addition, you may be experiencing life stressors (changing lifestyle, aging parents, children leaving or returning home, financial issues, body image, and relationship problems) during midlifethat may affect your mood. Recognizing depressive symptoms and depression When you are transitioning into menopause, you should notify your healthcare practitioner whether you have suffered from depression in the past or whether you were particularly sensitive to hormone changes and have experienced premenstrual syndrome or depression. Be alert and notice whether these mood changes are mild and do not greatly affect your quality of life or whether they are severe and debilitating and interfere with your daily activities. Your healthcare practitioner will be aware of the factors that can put you at risk for depressive symptoms or even a severe depression during this time and can do an appropriate evaluation. This may include identifying what menopause stage you are in, assessing both your menopause and depressive symptoms, considering any additional risk factors you may have, and in some cases, asking you to complete a test to screen you for depression. Treatment Treatment will vary depending on whether you are suffering from mood symptoms or experiencing clinical depression. If you are having a major depressive episode, therapies that have been proven to help depression, such as antidepressants, cognitive behavior therapy, and other types of psychotherapy,will be recommended. Antidepressants. There are several antidepressant medications that have been shown to be effective and well tolerated. If you have had medication in the past that was helpful in treating depression, your healthcare practitioner will probably choose the same medication if the depression reoccurs during perimenopause. For those midlife women who are experiencing clinical depression for the first time, the effectiveness of the antidepressant medications, their side effects, and how they interact with the other medications you take will be considered. Many antidepressants used to treat menopause-related depression also have been shown to help improve menopause symptoms such as hot flashes. It also may be helpful to treat the sleep disturbances and night sweats that can occur at the same time as your depressive symptoms. Psychotherapy. Most healthcare practitioners will recommend some type of psychotherapy such as cognitive behavior therapy either alone or in combination with your antidepressant medication. Psychotherapy also will help you to cope with the stresses and losses that you may be experiencing during midlife. Estrogen therapy. Although FDA has not approved estrogen therapy to treat mood disorders, researchers have found that it may be almost as effective as the antidepressant medications typically used totreat depression in perimenopausal women, even when they're not suffering from hot flashes. Estrogen therapy also seems to improve mood and well-being in perimenopausal women, including those who arenot depressed. However, estrogen therapy isn't effective for treating depression in postmenopausal women. In addition, since most of the research only examined the effect of estrogen alone, more information is needed about different hormone therapies and combination regimens. Complementary medicine. There is not enough evidence to support whether complementary/alternative medicine, herbs, or supplements help to treat depression in perimenopausal women, but the consensus is that exercise may be useful in alleviating depressive symptoms. This MenoNote, developed by the MenoNotes Task Force of [employer], provides current general information but not specific medical advice. It is not intended to substitute for the judgment of a person's healthcare provider. Additional information can be found at www.menopause.org. Copyright ?? 2018 [employer]. All rights reserved. [facility] grants permissionto healthcare providers to reproduce this MenoNote for distribution to women in their quest for good health. Made possible by donations to the [facility] Education and Research Fund. Vaginal Dryness The genitourinary syndrome of menopause (GSM) includes bothersome vaginal, vulvar (lips of the vagina), and urinary symptoms that can affect quality of life, sexual satisfaction, and even your relationship with your partner. Unlike hot flashes, which typically improve with time, GSM usually worsensover time without treatment. Menopause and aging can affect the genitourinary system in these ways: Loss of estrogen at menopause may cause the vaginal tissues to become thin and dry, with decreased elasticity and lubrication, often resulting in pain with sexual activity, routine pelvic examinations, and even discomfort wiping after urination or wearing certain clothing. Symptoms such as burning, itching, or irritation of the vulva; lack of lubrication and vaginal dryness; and discomfort or pain with sexual activity are common Burning on urination, increased frequency or urgency of urination, and increased risk for urinary tract infections also can occur. Symptoms may be more severe in women who undergo menopause as a result of the surgical removal of both ovaries (surgical menopause) or because of chemotherapy for cancer treatment and in those who receive aromatase inhibitors for prevention or treatment of breast cancers. Treatment options There are many effective treatment options for GSM, including cmun-src-nkqhtie and prescription therapies. First-line therapies for less severe symptoms include nonhormone dnbw-srh-ljwlybr lubricantsused as needed for sexual activity and moisturizers used regularly (several times per week) to maintain moisture. Prescription therapies include low-dose vaginal estrogens, vaginal dehydroepiandrosterone inserts, and oral ospemifene. Nonhormone lubricants and moisturizers can be combined for optimal symptom relief and can be used in combination with prescription therapies for more severe symptoms. Nonhormone remedies Vaginal lubricants are used with sexual activity and reduce discomfort and increase pleasure by decreasing friction. These include water-, silicone-, and oil-based products. Oil-based lubricants may damage condoms and may increase the risk of vaginal infections. Lubricants should not contain flavors (sugar), warming properties, or solvents and preservatives such as propylene glycol and parabens that may cause irritation in some women. Vaginal moisturizers are used regularly, often several times weekly to maintain vaginal moisture, with a goal of reducing the daily symptoms of GSM. Regular sexual stimulation promotes vaginal blood flow and secretions. Sexual stimulation with a partner, alone, or with a device (such as a vibrator) can improve vaginal health. Expanding your views of sexual pleasure to include outercourse options, such as extended caressing,mutual masturbation, and massage, provide a way to remain sexually intimate in place of intercourse. Vaginal dilators can stretch and enlarge the vagina if it has become too short and narrow or if involuntary tightening occurs, preventing comfortable sexual activity. Dilators can be purchased and used with the guidance of a cold roll operator, physical therapist, or sex therapist. You can find dilators online or at specialty stores. Pelvic floor exercises can strengthen weak pelvic floor muscles and relax tight ones. Pelvic floor physical therapy is available with trained therapists or there are at-home devices to help strengthen the pelvic floor and treat incontinence. Vaginal hormone therapy An effective and safe treatment, low-dose local estrogen applied directly to the vagina relieves vaginal dryness and discomfort with sexual activity. Improvements usually occur within a few weeks or months with consistent use. FDA-approved low-dose vaginal estrogen products are available by prescription as vaginal creams (used two or three nights/wk), a vaginal estradiol tablet or insert (used twice/wk), and an estradiol vaginal ring (changed every 3 mo). Dehydroepiandrosterone (DHEA; prasterone) is a hormone-containing insert placed in the vagina nightly that reduces vaginal dryness and discomfort with sexual activity. Low-dose vaginal estrogen or DHEA may be options for women with a history of breast or uterine cancer after careful consideration of risks and benefits in collaboration with their primary patient care provider and their oncologists. Systemic estrogen therapy Systemic estrogen therapy provided for treatment hot flashes also treats vaginal dryness, although some women still benefit from additional low-dose vaginal hormone treatment. If only vaginal symptoms are present, low-dose vaginal hormone treatments are recommended. Other therapies Ospemifene is a prescription selective estrogen receptor modulator(SERM) available as an oral tablet taken daily for the treatment of vaginal dryness and sexual pain. Vaginal laser therapy such as fractional CO2 laser or radiofrequency devices are FDA cleared for vaginal use but not specifically for treatment of GSM. Treatments are costly and generally not coveredby insurance. Additional, longer- term studies are needed to establish efficacy and safety before these therapies can be routinely recommended for treatment of GSM. Treatment Options Summary Vaginal lubricants (nonprescription). Many available products. Vaginal moisturizers (nonprescription). Many available products. Vaginal estrogen therapy (prescription required). Estrace or Premarin vaginal cream (0.5-1 g placed in vagina 2-3 times/wk: generic available). Estring (small, flexible estradiol ring placed in vagina and changed every 3 mo: 7.5 ??g/d). Vagifem (estradiol tablet placed in vagina twice/wk, 10 ??g: generic available). Imvexxy (estradiol softgel insert placed in vagina twice/wk: 4 ??g, 10 ??g). Intravaginal dehydroepiandrosterone (Intrarosa; prescription required). A 6.5 mg vaginal insert used nightly. Ospemifene (Osphena; prescription required). Oral 60 mg tablet taken once daily. Vaginal ???exercise?? Sexual activity (with or without a partner). Stretching exercises with lubricated vaginal dilators. Pelvic floor physical therapy. Notes: Vaginal and vulvar symptoms not related to menopause include yeast infections, allergic reactions, and certain skin conditions, so consult your healthcare professional if symptoms do not improve with treatment. Compounded vaginal estrogen and testosterone are not FDA regulated or recommended for treatment of GSM in most cases. This MenoNote, developed by the [facility] Education Committee of [employer], provides current general information but not specific medical advice. It is not intended to substitute for the judgment of a person's healthcare professional. Additional information can be found at www. menopause.org. Copyright ?? 2021 [employer]. All rights reserved. [facility] grants permissionto healthcare professionals to reproduce this MenoNote for distribution to women in their quest forgood health. Made possible by donations to the [facility] Education and Research Postmenopausal Osteoporosis What are osteoporosis and osteopenia? Osteoporosis is a thinning of bones caused by a decrease of bone density beginning around the time of menopause. Bone loss is particularly rapid in the 5 to 10 years around the menopause transition because of loss of estrogen. During that rapid bone loss, the delicate structure of the skeleton is damaged, weakening the bone, increasing the risk of a broken bone or fracture. Osteoporosis is a risk factor for all fractures except those of the face, hands, and feet. Other important risk factors for fracture include older age, frequent falls, and a history of previous fracture, especially if the fracture happened in the previous year. In addition, many medical conditions such as celiac disease and medicines such as prednisone and aromatase inhibitors may contribute to bone loss and osteoporosis. The diagnosis of postmenopausal osteoporosis is made in women who have had a spine or hip fracture or who have a T-score of ?2.5 or less on a bone density test. Postmenopausal women with T-scores between ?1.0 and ?2.5 have low bone density or osteopenia. This category includes many women with low normal bone density who are at low fracture risk but also includes older women who have other risk factors placing them at high risk. Who should be tested? Bone density testing and fracture risk assessment should be performed in all postmenopausal women with risk factors for osteoporosis. This includes all postmenopausal women who have had a fracture, all women aged 65 years or older, and younger postmenopausal women with other risk factors including being thin, a family history of osteoporosis, smoking, or diseases or medicines that harm the bones. How can osteoporosis be prevented? General measures, including a healthy diet, regular weight-bearing activities such as walking, and avoiding harmful habits such as smoking, are important for bone health. A daily intake of 1,000 mg to 1,200 mg of calcium is recommended. For women with low dairy intake, supplements of 600 mg calciumdaily may be useful (a dairy-free diet usually contains about 300 mg of calcium). Vitamin D supplements of 1,000 IU to 2,000 IU daily are recommended for women known to have osteoporosis and for those at risk for vitamin D deficiency, including marked obesity or gastrointestinal problems affecting absorption. Higher doses of calcium and vitamin D are not helpful. Weight-bearing activity can slow bone loss, especially in older women, but none of these general measures can prevent the bone loss that happens around menopause, and none are adequate treatment for osteoporosis. Estrogen therapy should be considered to prevent bone loss in younger postmenopausal women at risk for osteoporosis, especially in women with menopause symptoms. Bone loss happens quickly when estrogen is stopped but can be prevented by switching to a bisphosphonate, a drug approved for osteoporosis prevention and treatment for a few years. For women who cannot take estrogen, bisphosphonates can prevent the rapid bone loss in early menopause and for some women may only be needed for a few years. How is osteoporosis treated? For women with osteoporosis, drug therapy, in addition to the general measures noted earlier, is necessary to strengthen the skeleton and decrease the risk of fracture. Because the benefits of all treatments go away when the drugs are stopped, managing osteoporosis requires long-term treatment. Formost patients, using different drugs in various sequences is the best way to treat osteoporosis. Raloxifene is an antiestrogen approved for the prevention and treatment of osteoporosis. It is lesspotent than the other bone medications and does not completely prevent bone loss in early menopauseor prevent hip fractures in women with osteoporosis. Raloxifene is also approved to prevent breast cancer in high- risk women. It increases hot flashes in some women but is an option for women with osteoporosis who are at high risk for breast cancer but not for hip fracture. Bisphosphonates and denosumab are the drugs most often used to treat osteoporosis. They work by slowing the activity of both the bone-dissolving cells and the bone-forming cells. These drugs increasebone density (4%-10% over 3 years), strengthen the bones, and significantly decrease the risk of spine, hip, and other fractures, but they do not rebuild the damaged bone structure. Bisphosphonates are available as tablets taken once weekly or monthly or as an intravenous infusiongiven once yearly or less often. Side effects of oral bisphosphonates include stomach upset and muscle pains, which are usually mild and temporary. Flu-like symptoms can occur after the first dose ofintravenous bisphosphonates but rarely occur with the next doses and can be minimized with acetaminophen. Bisphosphonates have been associated with poor healing after a dental implant or tooth extraction, a rare condition called osteonecrosis of the jaw. The risk of that happening is decreased by good dental hygiene before and careful prevention of infection during the procedure. The risk of unusual (atypical) fractures is very low during the first 5 years of bisphosphonate therapy but increases to about 1 in 1,000 patients after 8 to 10 years of treatment. Limiting bisphosphonate therapy to no more than 5 years at a time minimizes that risk. After 3 to 5 years of treatment, bisphosphonates can be temporarily stopped for a few years in women at modestrisk of fracture. However, for patients who remain at high risk of fracture, continuing treatment with a different drug is usually considered. Denosumab, a human antibody, is given as an injection every 6 months and can be used for many years. Bone density increases over at least 10 years of treatment. Side effects may include skin rash andhypersensitivity (allergy-like) reactions. Concern about an increased risk of infection was not observed in a large 10-year study. As with estrogen, bone density decreases rapidly, and protection from spine fractures is quickly lost when denosumab is stopped unless treatment with a bisphosphonate is begun. Osteoanabolic agents (bone-building drugs), including teriparatide, abaloparatide, and romosozumab,stimulate new bone formation and rebuild bone structure. Bone-building drugs are more effective than bisphosphonates at increasing bone density and reducing fractures. They are recommended for patient s at very high risk of fracture, including older women with very-low bone density or with recent ormultiple fractures. These drugs are given for 12 to 24 months at a time and are then followed by either a bisphosphonate or denosumab to maintain the bone-building benefits. Fall prevention Most fractures happen after a fall. Programs to improve muscle strength and balance such as Lexii Chi, correcting poor vision, and removing fall hazards from the home can reduce fall risk. Summary. All postmenopausal women experience bone loss and are at risk for osteoporosis. Estrogen therapy can prevent osteoporosis when started at the time of menopause. For women with osteoporosis, multiple treatment options are available that quickly and safely reduce the risk of painful and serious fractures. This MenoNote, developed by the NAMS Education Committee of The [employer], provides current general information but not specific medical advice. It is not intended to substitute for the judgment of a person's healthcare professional. Additional information can be found at www. menopause.org. Copyright ?? 2021 The [employer]. All rights reserved. [facility] grants permissionto healthcare professionals to reproduce this MenoNote for distribution to women in their [facility]. Made possible by donations to the [facility] Education and Research Fund. documented in this encounter Progress Notes * Oma Crespo NP - 12/23/2022 7:15 AM CDT Well Woman Exam Subjective Deejay Paz is a 47 y.o. female who presents for a well woman exam. S/p TLH/BS/Cysto 01/21 for AUB and urinary frequency. Pt states urgency is worse. 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 States she can get out of car , try to get stuff out of the trunk and have leaking. Working on losing wt and core exercises. Friend is a PF PT. Interested in a referral. Does endorse drinking water and diet Dr. Bryan Desires STI screening, no known exposure. VMS seem to be subsiding. Patient is . Menstrual History: Menarche Age: 12 years Patient's last menstrual period was 10/23/2019. Period Pattern: None Sexual History: Sexual History Gender of sexual partners: Men Sexually Transmitted Infection History: None OB History 3 Para 2 Term 2 AB 1 Living 2 SAB 1 IAB Ectopic Multiple Live Births 2 # Outcome Date GA Labor/2nd Weight Sex Delivery Anes PTL Lv A1 A5 1 SAB 2005 2 Term 2007 CS-LTranv Living 3 Term 2008 CS-LTranv Living Screening History Date of Last Pap if Known: 09/01/2019 negative hpv- History of Abnormal Paps: No Ever had an HPV vaccine?: No Ever used Hormone Replacement Therapy?: No Ever had a mammogram?: Yes Date of Mammogram: 01/22/2022 Mammogram result: Normal Ever had a colonoscopy?: Yes Date of Colonoscopy: 01/2017 Colonoscopy Result: Normal Ever had a bone-density test?: No Patient Active Problem List Diagnosis Adiposity Vitamin D deficiency Impaired fasting glucose Hyperlipidemia Hypothyroidism Right upper quadrant abdominal pain Anxiety BMI 37.0-37.9, adult Bloating Benign neoplasm of skin of face Carpal tunnel syndrome Spinal stenosis of lumbar region Arthralgia of shoulder Nontraumatic incomplete tear of right rotator cuff Arthritis of right acromioclavicular joint Impingement syndrome of right shoulder Biceps tendinitis of right upper extremity Primary hypertension Urinary frequency Achilles tendinitis of left lower extremity Moderate obstructive sleep apnea Multiple persistent symptoms after COVID-19 History of COVID-19 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 Thyroid disease Past Surgical History: Procedure Laterality Date BREAST BIOPSY NEG LEFT CARPAL TUNNEL RELEASE Bilateral with ulnar release SECTION DILATION AND CURETTAGE OF UTERUS 2005 D&C HYSTERECTOMY LUMBAR SPINE SURGERY 2013 herniated disc l4-5: lumbar spine surgery Dr. 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 Tobacco Use Smoking status: Never Smokeless tobacco: Never Vaping Use Vaping Use: Never used Substance and Sexual Activity Alcohol use: Yes Comment: socially Drug use: No Sexual activity: Yes Partners: Male control/protection: Tubal Ligation Other Topics Concern Not on file Social History Narrative Not on file Social Determinants of Health Financial Resource Strain: Not on file Food Insecurity: Not on file Transportation Needs: Not on file Physical Activity: Not on file Stress: Not on file Social Connections: Not on file Intimate Partner Violence: Not on file Housing Stability: Not on file Family History Problem Relation Age of Onset [...] Brother Hyperlipidemia; Skin cancer Sister Cancer, skin; Current Outpatient Medications: citalopram (CeleXA) 40 mg tablet, TAKE 1 TABLET BY MOUTH EVERY DAY IN THE MORNING, Disp: 90 tablet,Rfl: 1 levothyroxine (SYNTHROID) 175 mcg tablet, TAKE 1 TABLET BY MOUTH EVERY DAY, Disp: 90 tablet, Rfl: 1 losartan (COZAAR) 100 mg tablet, TAKE 1 TABLET BY MOUTH EVERY DAY, Disp: 90 tablet, Rfl: 1 Praluent Pen 150 mg/mL pen injector, INJECT 150 MG UNDER THE SKIN EVERY 14 (FOURTEEN) DAYS, Disp: 6mL, Rfl: 1 Allergies: Cefazolin and Remgszy-hya-cau reductase inhibitors Objective Vitals BP 134/88 (BP Location: Left arm, Patient Position: Sitting) Pulse 69 Ht 163.8 cm (5' 4.49 ) Wt 224 lb 3.2 oz (101.7 kg) LMP 10/23/2019 BMI 37.90 kg/m?? BP Readings from Last 3 Encounters: 12/23/22 134/88 11/06/22 118/78 10/08/22 126/80 Wt Readings from Last 3 Encounters: 12/23/22 224 lb 3.2 oz (101.7 kg) 11/06/22 221 lb (100.2 kg) 10/08/22 221 lb (100.2 kg) Exam Chaperoned by: Rae Jack Physical Exam Constitutional: Appearance: Normal appearance. She is well-developed. She is obese. HENT: Head: Normocephalic and atraumatic. Eyes: Pupils: Pupils are equal, round, and reactive to light. Neck: Thyroid: No thyromegaly. Cardiovascular: Comments: Normal peripheral vascular exam Pulmonary: Effort: Pulmonary effort is normal. Chest: Breasts: Right: Normal. No mass or skin change. Left: Normal. No mass or skin change. Abdominal: General: There is no distension. Palpations: Abdomen is soft. Tenderness: There is no abdominal tenderness. There is no guarding. Genitourinary: Pelvic exam was performed with patient supine. Right labia: normal. There is no rash, tenderness or lesion on the right labia. Left Labia: normal. There is no rash, tenderness or lesion on the left labia. Vaginal discharge present. Right adnexa: normal. Left adnexa: normal. Cervix is absent. Cervix: Surgically Absent. Uterus is Surgically absent. Rectum: No anal fissure or external hemorrhoid. Genitourinary Comments: White, homogeneous discharge Musculoskeletal: General: Normal range of motion. Cervical back: Normal range of motion. Lymphadenopathy: Upper Body: Right upper body: No axillary adenopathy. Left upper body: No axillary adenopathy. Lower Body: No right inguinal adenopathy. No left inguinal adenopathy. Skin: General: Skin is warm and dry. Neurological: Mental Status: She is alert and oriented to person, place, and time. Psychiatric: Speech: Speech normal. Behavior: Behavior normal. Thought Content: Thought content normal. Judgment: Judgment normal. Lipids/DM: Lab Results Component Value Date CHOL 238 (H) 03/26/2022 CHOL 266 (H) 07/16/2020 CHOL 229 (H) 05/15/2019 Lab Results Component Value Date HDL 41 03/26/2022 HDL 51 07/16/2020 HDL 45 05/15/2019 Lab Results Component Value Date LDLCALC 148 (H) 03/26/2022 LDLCALC 148 (H) 07/16/2020 LDLCALC 152 (H) 05/15/2019 LDL 163 (H) 04/06/2014 Lab Results Component Value Date TRIG 247 (H) 03/26/2022 TRIG 337 (H) 07/16/2020 TRIG 160 (H) 05/15/2019 Assessment and Plan Deejay Paz is a 47 y.o. female who presents for a well woman exam. 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) w abnormal findings Urinary urgency - Ambulatory referral order to Physical Therapy -; Future - Discussed bladder irritants Routine screening for STI (sexually transmitted infection)/Vaginal discharge - Hepatitis C antibody; Future - RPR Blood; Future - Sureswab(R) Advanced Vaginitis Plus, TMA Endocervical/vaginal; Future Screening for HIV (human immunodeficiency virus) - HIV 1/2 Antibody plus p24 Antigen Blood; Future Encounter for screening mammogram for malignant neoplasm of breast - SCREENING MAMMOGRAM BILATERAL W NGHIA; Future Pap smear: no longer indicated Breast health reviewed: SBE discussed, Mammogram: Recommended 01/22 STI screening: Performed Bone health: Calcium and vitamin D intake discussed. Dexa Scan: not indicated Colon Cancer Screening: Colonoscopy: Up to date 10 yr rpt Diet and exercise discussed. Body mass index is 37.9 kg/m??.; Reviewed recommendation/goal of >/= 150 minutes/week moderate-intensity aerobic exercise. Preventative health labs including lipid and diabetes screening per PCP Handouts provided: JEIMY Ayala Lifestyle habits RTO 1 year/prn Oma Crespo APRN, JESSI, NCMP 12/23/2022 documented in this encounter Miscellaneous Notes * Addendum Note - Kerri Church CLT - 12/23/2022 7:15 AM CDTAddended by: KERRI CHURCH on: 12/24/2022 02:11 PM Modules accepted: Orders documented in this encounter Plan of Treatment Not on file documented as of this encounter Procedures Procedure Name Priority Date/Time Associated Diagnosis Comments SURESWAB(R) ADVANCED VAGINITIS PLUS, TMA Routine 12/23/2022 7:40 AM CDT Routine screening for STI (sexually transmitted infection) Vaginal discharge documented in this encounter Results * SCREENING [...] change from the prior study. Oma Crespo NP IMG MAMMO PROCEDURES Fi nal Result * HIV 1/2 Antibody plus p24 Antigen Blood (12/24/2022 2:16 PM CDT) HIV 1/2 ab + p24 ag Nonreactive Nonreactive [facility] (REMSEN) Comment: Nonreactive for HIV-1 antigen and HIV-1/HIV-2 antibodies. No laboratory evidence of HIV infection. If acute HIV infection is suspected, consider testing for HIV-1 RNA. Testing performed by: [facility], [address] [place] [address], [place] [id number] Blood 12/24/2022 2:16 PM CDT 12/24/2022 6:01 PM CDT Oma Crespo NP LAB MICROBIOLOGY - GENE [facility] ORDERABLES Final Result EDGAR REGINALDO (IRMA) 1 [facility] Department of Laboratories [place] [id number] * Hepatitis C antibody (12/24/2022 2:16 PM CDT) Hep C Ab Nonreactive Nonreactive EDG[facility] (IRMA) Comment: Interpretive Data Nonreactive: Antibodies to [...] last revised on 2019. Testing performed by: [facility], [address] [place] [address], [place] [id number] Blood 12/24/2022 2:16 PM CDT 12/24/2022 6:01 PM CDT Oma Crespo NP LAB MICROBIOLOGY - GENE RAL ORDERABLES Edited Result - Final [facility] (REMSEN) 1 [facility] [place] [address] * RPR Blood (12/24/2022 2:16 PM CDT) RPR Nonreactive Nonreactive [facility] (REMSEN) Comment:Testing performed by : [facility], [address] [place] [address], [id number] Blood 12/24/2022 2:16 PM CDT 12/24/2022 6:01 PM CDT Oma Crespo NP LAB MICROBIOLOGY - GENE RAL ORDERABLES Final Result Performing Organization Address [facility]/ZIP Co de Phone Number [facility] (REMSEN) 1 [place] [address] * (ABNORMAL) Sureswab(R) Advanced Vaginitis Plus, TMA Endocervical/vaginal (12/23/2022 7:40 AM CDT) Pathologist [facility] SureSwab(R) ADV Bacterial vaginosis (BV), TMA POSITIVE(A) NEGATIVE [facility] Lulú species NOT DETECTED NOT DETECTED [facility] Lulú glabrata NOT DETECTED NOT DETECTED [facility] Comment: Lulú species C. albicans, C. tropicalis, C. parapsilosis, and/or C. dubliniensis can be detected, but not differentiated, in the Lulú spp. result. Trichomonas vaginalis (TV), TMA NOT DETECTED NOT DETECTED [facility] C. trachomatis RNA NOT DETECTED NOT DETECTED [facility] N. 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) w abnormal findings- Primary Urinary urgency Urgency of urination Routine screening for STI (sexually transmitted infection) Screening examination for venereal disease Screening for HIV (human immunodeficiency virus) Special screening examination for other specified viral diseases Vaginal discharge Leukorrhea, not specified as infective Encounter for screening mammogram for malignant neoplasm of breast Encounter for screening mammogram for malignant neoplasm of breast documented in this encounter Discontinued Medications Medication Sig Discontinue Reason Start Date End Da te ascorbic acid (VITAMIN C) 500 mg tablet,chewable Take 1 tablet/chew tab (500 mg total) by mouth 2 (two) times a day Patient Discharge 04/09/2022 12/23/2022 cholecalciferol (VITAMIN D-3) 2000 unit capsule Take 1 capsule (2,000 Units total) by mouth daily Patient Discharge 04/09/2022 12/23/2022 evolocumab (REPATHA) syringe syringe Inject 1 mL (140 mg total) under the skin every 14 (fourteen) days Patient Discharge 05/14/2022 12/23/2022 ondansetron (ZOFRAN) 4 mg tabletIndications:Pre vention of Post-Operative Nausea and Vomiting Take 1 tablet (4 mg total) by mouth every 6 (six) hours as needed for nausea or vomiting Patient Discharge 04/09/2022 12/23/2022 oxyCODONE-acetaminoph en (PERCOCET) 5-325 mg per tabletIndications:Murray n Take 1-2 tablets every 4-6 hours as needed for pain Patient Discharge 04/09/2022 12/23/2022 senna-docusate (PERICOLACE) 8.6-50 mg 1-2 times daily as needed for constipation Patient Discharge 04/09/2022 12/23/2022 documented as of this encounter Care Teams Financial Institution Branch Manager Relationship Specialty [place] [address] [address] PCP - General Family Medicine 02/21/19 Roya Andre PA [address] [place] [address] [facility] [address] [address] Physician Vat House Laborer Orthopedic Surgery 04/09/22 Alina Higginbotham LCSW [address] [facility] [address] Public Relations Supervisor Infectious Diseases 10/08/22 documented as of this encounter
--- OUTSIDE RECORDS SUMMARY | 2024-08-09 23:29 | XMS_ITS | Encounter Summary ---
Author Organization [facility] Address [address] [address] Care Team Providers Care Elementary Assistant Principal Name Role Phone Cassius Ortega NP Primary Care Provider Roya Andre Unavailable Reason for Visit * Reason Comments Follow-up Encounter Details Date Type Department Care Team (Late st Contact Info) Description 05/28/2022 11:15 AM CDT Office Visit [facility] Orthopedic and Sports Medicine [address] [place] [id number] Roya Andre PA [address] [place] [address] [address] Aftercare following surgery of the musculoskeletal system (Primary Dx); S/P arthroscopy of right shoulder Social History Tobacco Use Types Packs/Day Years [...] on file 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 Gender Identity Not on file Sexual Orientation Not on file 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 Post-Op Visit Note HPI: Patient is 7 weeks s/p right shoulder arthroscopy with subacromial decompression, distal clavicle excision, subpec biceps tenodesis, and rotator cuff debridement. Pain is well controlled. Patient is currently taking Tylenol or Aleve prn for pain. They report compliance with sling and HEP/activity re commendations. She has been completing outpatient PT at [facility] in [facility] Vital signs: height is 165.1 cm (5' 5 ) and weight is 102.5 kg (226 lb). Her blood pressure is 122/64 and her pulse is 66. Exam: Well approximated healing post operative portal holes. No active erythema, draining, or signs of infection present. Neurovascular status is intact. Full AROM of elbow, wrist and hand. PROM: 135 flexion; 110 abduction (as of 05/19 PT progress note). Today ROM is roughly 140 passive flexion/scaption and 100 active. Assessment: Diagnosis Plan 1. Aftercare following surgery of the musculoskeletal system 2. S/P arthroscopy of right shoulder Plan: Procedure, medications and post operative expectations reviewed with patient Continue PT Discussed RTW; will likely return in 2-4 week. 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 HEP reviewed as were activity restrictions/recommendations Follow up in 4-6 weeks. Patient demonstrates atrophy and weakness of right shoulder and would benefit from home E stim device. Questions were answered. Patient expressed full understanding and agreement of plan. Roya Andre PA-C ENT MANAGER documented in this encounter Plan of Treatment Not on file documented as of this encounter Visit Diagnoses Diagnosis Aftercare following surgery of the musculoskeletal system- Primary Aftercare following surgery of the musculoskeletal system, NEC S/P arthroscopy of right shoulder documented in this encounter Care Teams Elementary Assistant Principal Relationship Specialty [place] [address] [address] PCP - General Family Medicine 02/21/19 Roya Andre PA [address] [place] [address] [address] Physician Math Professor Orthopedic Surgery 04/09/22 documented as of this encounter
--- OUTSIDE RECORDS SUMMARY | 2024-08-09 23:29 | XMS_ITS | Encounter Summary ---
Author Organization [facility] Address [address] [facility] [address] [place] [address] Phone Care Team Providers Care Assistant Office Manager Name Role Phone Cassius Ortega NP Primary Care Provider [phone] Roya Andre Unavailable [phone] Encounter Details Date Type Department Care Team (Late st Contact Info) Description 12/01/2022 Telephone [facility] Obstetrics and Gynecology [facility] [place] [address] Gabriela Barnes BS Social History Tobacco Use Types Packs/Day Years [...] on file 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 PT is requesting check up with [facility] regarding hysterectomy done in 1999 per voicemail. documented in this encounter Plan of Treatment Not on file documented as of this encounter Visit Diagnoses Not on filedocumented in this encounter Care Teams Assistant Office Manager Relationship Specialty Start [place] [address] [address] [facility] [address] [address] PCP - General Family Medicine 02/21/19 Roya Andre PA [address] [place] [address] [facility] [address] [address] Physician Community Product Specialist Orthopedic Surgery 04/09/22 Alina Higginbotham LCSW [address] [place] [address] Incubator Operator Infectious Diseases 10/08/22 documented as of this encounter
--- OUTSIDE RECORDS SUMMARY | 2024-08-09 23:29 | XMS_ITS | Encounter Summary ---
Author Organization [facility] Healthcare Address [address] [place] [address] Care Team Providers Care Rabbit Dresser Name Role Phone Cassius Ortega NP Primary Care Provider [phone] Roya Andre Unavailable Reason for Visit * Reason Comments Hyperlipidemia Hypertension Encounter Details Date Type Department Care Team (Late st Contact Info) Description 12/10/2023 2:45 PM CDT Office Visit [place] [employer] Fermentation Attendant [address] [place] [phone] Cahrly Olson MD [address] [place] [address] [address] Primary hypertension (Primary Dx); Mixed hyperlipidemia Social History Tobacco Use Types Packs/Day Years [...] on file 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 Gender Identity Not on file Sexual Orientation Not on file 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 Not on file documented as of this encounter Last Filed Vital Signs Vital Sign Reading Time Taken Comments Blood Pressure 110/62 12/10/2023 2:55 PM CDT Pulse 70 12/10/2023 2:55 PM CDT Temperature - - Respiratory Rate 16 12/10/2023 2:55 PM CDT Oxygen Saturation 97% 12/10/2023 2:55 PM CDT Inhaled Oxygen Concentration - - Weight 92.5 kg (204 lb) 12/10/2023 2:55 PM CDT Height - - Body Mass Index 33.95 11/25/2023 8:15 AM CDT documented in this encounter Progress Notes * Charly Olson MD - 12/10/2023 2:45 PM CDT Cardiology note Reason for Office Visit: Chief Complaint Patient presents with Hyperlipidemia Hypertension History of Present Illness: Deejay Paz is a 48 y.o. female seen in follow up for HTN and Hyperlipidemia. She is intoleranty of statins with diffuse myalgia. She recently had right rotator cuff repair. Stress Echo on 05/09/20 was normal. 11/06/22:Doing well. Recovered for Covid. She had increase in LFT's with Covid , so PSK9 inhibitor onhold. 12/10/23: The patient is doing well. She is back on Repatha blood pressure is well controlled. She is exercising and has lost about 10 lb. Past Medical History: Diagnosis Date Delayed emergence from general anesthesia slow to wake up GERD (gastroesophageal reflux disease) 02/15 Hypertension Interstitial lung disease (CMS/HCC) (HCC) SHREYA (obstructive sleep apnea) 05/07/2021 PONV (postoperative nausea and vomiting) Post depression 2003 +PPD Thyroid disease Review of systems: Review of Systems All other systems reviewed and are negative. Family and Social history Family History Problem Relation Age of Onset Hypertension Mother Hypertension; Hypothyroidism Mother hypothyroidism; Hyperlipidemia Mother Hyperlipidemia; Thyroid disease Mother Thyroid disorder; Other Sister hpothyroidism; Arthritis Sister Skin cancer Sister Cancer, skin; Lung cancer Father 39 Cancer -lung; Cause of : Cancer -lung/Cancer, lung; Cause of : Cancer, lung Cancer Father Hyperlipidemia Brother Hyperlipidemia; Hypertension Other Family history of Hypertension; Diabetes type II Other Family history of Diabetes -Type II; Coronary artery disease Other Family history of Coronary artery disease; Stroke Other Family history of Stroke; Diabetes Maternal Grandmother Stroke Paternal Grandfather Cancer Father's Sister Kidney disease Father's Sister Breast cancer Neg Hx Ovarian cancer Neg Hx Social History Tobacco Use Smoking status: Never Smokeless tobacco: Never Substance and Sexual Activity Drug use: No Sexual activity: Yes Partners: Male control/protection: Tubal Ligation Alcohol Use: Unknown (04/09/2022) AUDIT-C Frequency of Alcohol Consumption: Monthly or less Average Number of Drinks: Not on file Frequency of Binge Drinking: Not on file Recent Concern: Alcohol Use - Alcohol Misuse (03/31/2022) AUDIT-C Frequency of Alcohol Consumption: 2-4 times a month Average Number of Drinks: 1 or 2 Frequency of Binge Drinking: Less than monthly Allergies Allergen Reactions Cefazolin Blisters and Redness Dzuqgyw-Sni-Mkk Reductase Inhibitors Muscle pain and Joint pain Medications: Current Outpatient Medications Medication Sig Dispense Refill ALPRAZolam (XANAX) 0.25 mg tablet Take 1 tablet (0.25 mg total) by mouth nightly as needed for anxiety 30 tablet 0 citalopram (CeleXA) 40 mg tablet Take 1 tablet (40 mg total) by mouth every morning 63 tablet 0 evolocumab (REPATHA) syringe syringe Inject 1 mL (140 mg total) under the skin every 14 (fourteen) days 6 mL 3 levothyroxine (SYNTHROID) 175 mcg tablet Take 1 tablet (175 mcg total) by mouth daily 63 tablet 0 losartan (COZAAR) 100 mg tablet Take 1 tablet (100 mg total) by mouth daily 63 tablet 0 cyclobenzaprine (FLEXERIL) 10 mg tablet Take 1 tablet (10 mg total) by mouth 2 (two) times a day asneeded for muscle spasms (Patient not taking: Reported on 11/25/2023) 20 tablet 0 Praluent Pen 150 mg/mL pen injector INJECT 150 MG UNDER THE SKIN EVERY 14 (FOURTEEN) DAYS (Patient not taking: Reported on 11/25/2023) 6 mL 1 semaglutide (WEGOVY) 1 mg/0.5 mL auto-injector Inject 0.5 mL (1 mg total) under the skin every 7 days At the end of the script call for the next higher dose (Patient not taking: Reported on 12/10/2023) 2 mL 0 No current facility-administered medications for this visit. Vital Signs: Vitals BP 110/62 (BP Location: Right arm, Patient Position: Sitting) Pulse 70 Resp 16 Wt 92.5 kg (204 lb) LMP 10/23/2019 SpO2 97% BMI 33.95 kg/m?? Vitals: 12/10/23 1455 BP: 110/62 Pulse: 70 Resp: 16 SpO2: 97% Wt Readings from Last 3 Encounters: 12/10/23 92.5 kg (204 lb) 11/25/23 92.8 kg (204 lb 9.6 oz) 02/19/23 95.7 kg (211 lb) Physical Exam: Physical Exam Vitals reviewed. Vitals reviewed. Constitutional: Appearance: Normal appearance. HENT: Head: Normocephalic and atraumatic. Eyes: General: No scleral icterus. Pupils: Pupils are equal, round, and reactive to light. Neck: Vascular: No carotid bruit. Cardiovascular: Rate and Rhythm: Normal rate and regular rhythm. Pulses: Normal pulses. Heart sounds: Normal heart sounds. Pulmonary: Effort: Pulmonary effort is normal. Breath sounds: Normal breath sounds. Abdominal: General: Bowel sounds are normal. Palpations: Abdomen is soft. Musculoskeletal: General: Normal range of motion. Cervical back: Normal range of motion and neck supple. Right lower leg: No edema. Left lower leg: No edema. Skin: General: Skin is warm and dry. Neurological: General: No focal deficit present. Mental Status: She is alert and oriented to person, place, and time. Labs: No lab exists for component: KPLASMA No lab exists for component: LABALBU Lab Results Component Value Date CHOL 139 01/19/2023 TRIG 167 (H) 01/19/2023 HDL 44 01/19/2023 LDL 163 (H) 04/06/2014 Lab Results Component Value Date TSH 0.52 10/08/2022 T3FREE 3.00 04/05/2013 FREET4 1.36 10/27/2021 Testing: No results found. No results found for this or any previous visit.] CARDIOGRAPHICS: ECG: SR, Normal ECG Impression and Plan: Diagnoses and all orders for this visit: Primary hypertension (Primary) Assessment & Plan: Well controlled. Continue losartan. Orders: - ECG 12 lead - Lipid panel; Future Mixed hyperlipidemia Assessment & Plan: Check lipid panel. Continue Repatha. DICTATION DISCLAIMER: This note is transcribed using the [employer] direct voice recognition system without human tier truck driver. In an effort to expedite patient care, this note has not been adjusted for typographical, grammatical, and syntax by a trained medical laboratory technicians. Portions of this note have been copied from the medical record, but edited appropriately to accurately reflect the patient's current clinical state. Thank you for the consult. We will be happy to follow in this patient's care. Charly Olson, MARTELL@3:34 PM Cc:Cassius Ortega EMBEDDED HARDWARE ENGINEER documented in this encounter Miscellaneous Notes * Assessment & Plan Note - Charly Olson MD - 12/10/2023 3:33 PM CDT Associated Problem(s): Primary hypertension Well controlled. Continue losartan. * Assessment & Plan Note - Charly Olson MD - 12/10/2023 3:33 PM CDT Associated Problem(s): Hyperlipidemia Check lipid panel. Continue Repatha. documented in this encounter Plan of Treatment Not on file documented as of this encounter Procedures Procedure Name Priority Date/Time Associated Diagnosis Comments ECG 12-LEAD Routine 12/10/2023 Primary hypertension documented in this encounter Results [...] on 2018. HDL 49 >=40 mg/dL [facility] FLOR Comment: Interpretive Data Ages [...] 3:29 PM CDT 12/10/2023 6:57 PM CDT Charly Olson MD LAB BLOOD ORDERABLES Final Res ult [facility] [address] [address] Department [place] [address] * ECG 12 lead (12/10/2023) Charly Olson MD ECG ORDERABLES Final Result documented in this encounter Visit Diagnoses Diagnosis Primary hypertension- Primary Unspecified essential hypertension Mixed hyperlipidemia documented in this encounter Discontinued Medications Medication Sig Discontinue Reason Start Date End Da te Praluent Pen 150 mg/mL pen injector INJECT 150 MG UNDER THE SKIN EVERY 14 (FOURTEEN) DAYS 11/10/2022 12/10/2023 cyclobenzaprine (FLEXERIL) 10 mg tablet Take 1 tablet (10 mg total) by mouth 2 (two) times a day as needed for muscle spasms 01/20/2023 12/10/2023 documented as of this encounter Care Teams Rabbit Dresser Relationship Specialty [place] [address] [facility] 2 [facility] [address] [place] [address] PCP - General Family Medicine 02/21/19 Roya Andre PA [address] [place] [address] [address], [place] [address] Physician Electrical Accessories I Assembler Orthopedic Surgery 04/09/22 Alina Higginbotham LCSW [address] [facility] [address] Direct Mail Clerk Infectious Diseases 10/08/22 documented as of this encounter
--- OUTSIDE RECORDS SUMMARY | 2024-08-09 23:29 | XMS_ITS | Encounter Summary ---
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 Gender Identity Not on file Sexual Orientation [...] Refills Last Filled Start Date End Date semaglutide (Wegovy) 0.5 mg/0.5 mL auto-injector Inject 0.5 mL (0.5 mg total) under the skin every 7 days 2 mL 10/12/2023 11/17/2023 documented in this encounter Plan of Treatment Not on file documented as of this encounter Visit Diagnoses Not on filedocumented in this encounter Care Teams Director Of Bands Relationship Specialty [place] [address] [address] PCP - General Family Medicine 02/21/19 Roya Andre PA [address] [place] [address] [address] Physician Director Microbiology Orthopedic Surgery 04/09/22 FOREIGN GoW [address] [facility] [address] Front Load Trash Truck Driver Infectious Diseases 10/08/22 documented as of this encounter
--- OUTSIDE RECORDS SUMMARY | 2024-08-09 23:29 | XMS_ITS | Encounter Summary ---
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 Llamas: [id number] ELING RAMPMAN documented in this encounter Plan of Treatment Not on file documented as of this encounter Visit Diagnoses Not on filedocumented in this encounter Care Teams Photo Stylist Relationship Specialty [place] [address] [address] [facility] [address] [address] PCP - General Family Medicine 02/21/19 Roya Andre PA [address] [facility] [address] [address] Physician Assembler Truck Trailer Orthopedic Surgery 04/09/22 Alina Higginbotham, [facility] [address] [facility] [address] Jet Operator Infectious Diseases 10/08/22 documented as of this encounter
--- OUTSIDE RECORDS SUMMARY | 2024-08-09 23:29 | XMS_ITS | Encounter Summary ---
Author Organization [facility] Healthcare Address [address] [place] [address] Care Team Providers Care Laborer Chemical Processing Name Role Phone Cassius Ortega NP Primary Care Provider [phone] Roya Andre Unavailable [phone] Reason for Referral * MRI/CAT/PET Scan (Routine) - Closed Specialty Diagnoses / Procedures [facility] Referred To Contact Radiology Diagnoses Other nonspecific abnormal finding of lung field Procedures [place] [address] [address] Phone: tel: fax: [address] [phone] Referral ID Status Reason Start Date Expiration Date Visits Re quested Visits Authorized [id number] Closed 10/07/2022 04/05/2023 1 1 Reason for Visit * MRI/CAT/PET Scan (Routine) - Closed Specialty Diagnoses / Procedures Referred By Cara alvarez Referred To Contact Radiology Diagnoses Other nonspecific abnormal finding of lung field Procedures [place] [address] [place] [address] Phone: tel: fax: [facility] [address] [place] [phone] Referral ID Status Reason Start Date Expiration Date Visits Re quested Visits Authorized [id number] Closed 10/07/2022 04/05/2023 1 1 Encounter Details Date Type Department Care Team (Latest Contact Info) Description 11/04/2022 11:30 AM CDT - 11/04/2022 11:59 PM CDT Hospital Encounter 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 Electronically signed by: Omar Paulson II, D.O. Narrative 11/04/2022 12:02 PM CDT EXAMINATION: ??Computed tomography of the chest without intravenous contrast HISTORY: Nonspecific lung abnormality. TECHNIQUE: ??Transaxial computed tomographic images of the chest were obtained without intravenous contrast according to the standard protocol. COMPARISON: None. FINDINGS: ?? No pulmonary nodule, pleural effusion, or pulmonary consolidation. Thoracic inlet structures are unremarkable. ??No mediastinal or hilar lymphadenopathy. ??No pericardial effusion. ??Nonobstructive nephrolithiasis in the left kidney. ??No acute osseous abnormality. Procedure Note Omar Paulson II, DO - 11/04/2022 EXAMINATION: Computed tomography of the chest without intravenous contrast HISTORY: Nonspecific lung abnormality. TECHNIQUE: Transaxial computed tomographic images of the chest were obtained without intravenous contrast according to the standard protocol. COMPARISON: None. FINDINGS: No pulmonary nodule, pleural effusion, or pulmonary consolidation. Thoracic inlet structures are unremarkable. No mediastinal or hilar lymphadenopathy. No pericardial effusion. Nonobstructive nephrolithiasis in the left kidney. No acute osseous abnormality. IMPRESSION: Normal noncontrast CT of the chest. Electronically signed by: Omar Paulson II, D.O. Timothy Crouch MD IMG CT PROCEDURES Final Result documented in this encounter Visit Diagnoses Diagnosis Other nonspecific abnormal finding of lung field documented in this encounter Care Teams Laborer Chemical Processing Relationship Specialty Start [place] [address] [facility] [address] [place] [address] PCP - General Family Medicine 02/21/19 Roya Andre PA [address] [place] [address] [address] [place] [address] Physician Ornamental Ironworking Supervisor Orthopedic Surgery 04/09/[address] [address] Tip Banding Machine Operator Infectious Diseases 10/08/22 documented as of this encounter
--- OUTSIDE RECORDS SUMMARY | 2024-08-09 23:29 | XMS_ITS | Encounter Summary ---
Author Organization [facility] Address [address] [facility] [address] [place] [address] Care Team Providers Care Supervisor International Reservations Name Role Phone Cassius Ortega NP Primary Care Provider [phone] Roya Andre Unavailable [phone] Encounter Details Date Type Department Care Team (Latest Contact Info) Description 11/06/2022 Orders Only [employer] Cyber Analyst [address] 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 documented as of this encounter Plan of Treatment Not on file documented as of this encounter Results * Hepatic function panel (01/19/2023 10:03 AM CDT) Bilirubin, total 0.5 0.1 - 1.2 mg/dL [facility] Bilirubin, direct <0.2 0.1 - 0.3 mg/dL [facility] Protein, pl 7.7 6.5 - 8.5 g/dL [facility] Albumin 4.7 3.5 - 5.0 g/dL [facility] Alk phos 70 40 - 130 Units/L [facility] ALT 28 7 - 45 Units/L [facility] AST 25 10 - 45 Units/L [facility] Blood 01/19/2023 10:0 3 AM CDT 01/19/2023 10:03 AM CDT us Charly Olson MD LAB BLOOD ORDERABLES Final Res ult [facility] [address] [address] Department of Laboratories [place] [id number] * (ABNORMAL) Lipid panel (01/19/2023 10:03 AM CDT) Cholesterol 139 30 - 199 mg/dL [facility] Comment: Interpretive Data Ages < or = [...] Data was last revised on 2018. Triglycerides 167(H) <=149 mg/dL [facility] Comment: Interpretive Data Ages < [...] Data was last revised on 2018. HDL 44 >=40 mg/dL [facility]AR Comment: Interpretive Data Ages [...] was last revised on 2018. LDL, calculated 62 <=129 mg/dL [facility] Comment: Interpretive Data Ages < [...] was last revised on 2018. Non-HDL Cholesterol 95 mg/dL [facility] FLOR Comment: Interpretive Data Ages [...] revised on 2018. Chol/HDL ratio 3 [facility] Blood 01/19/2023 10:0 3 AM CDT 01/19/2023 10:03 AM CDT us Charly Olson MD LAB BLOOD ORDERABLES Final Res ult [facility] [address] [address] Department [place] [address] documented in this encounter Visit Diagnoses Diagnosis Hypercholesterolemia- Primary Pure hypercholesterolemia documented in this encounter Care Teams Supervisor International Reservations Relationship Specialty Start [place] [address] [address] [place] [address] PCP - General Family Medicine 02/21/19 Roya Andre PA [address] [facility] [address], [place] [address] Physician Overlock Sewing Machine Operator Orthopedic Surgery 04/09/22 Alina Higginbotham, TOOL BUILDER [address] [facility] [address] Entertainment Usher Infectious Diseases 10/08/22 documented as of this encounter
--- OUTSIDE RECORDS SUMMARY | 2024-08-09 23:29 | XMS_ITS | Encounter Summary ---
Author Organization [facility] Address [address] [facility] [address] [place] [address] Phone Care Team Providers Care Contract Loader Name Role Phone Cassius Ortega NP Primary Care Provider [phone] Roya Andre Unavailable [phone] Reason for Visit * Reason Comments New Patient * Consultation (Routine) - Closed Specialty Diagnoses / Procedures Referred By Cara t Referred To Contact Infectious Diseases Diagnoses Multiple persistent symptoms after COVID-[place] [address] [place] [address] Phone: tel: fax: [facility] Infectious Diseases [address], [place] [address] Phone: tel: fax: Referral ID Status Reason Start Date Expiration Date V isits Requested Visits Authorized [id number] Closed Specialty Services Required 08/26/2022 09/25/2023 1 1 Encounter Details Date Type Department Care Team (Late st Contact Info) Description 10/08/2022 8:20 AM NUCLEAR POWERPLANT SUPERVISOR Office Visit [facility] Infectious Diseases [address] 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 documented as of this encounter Last Filed Vital Signs Vital Sign Reading Time Taken Comments Blood Pressure 126/80 10/08/2022 8:32 AM NUCLEAR POWERPLANT SUPERVISOR Pulse 62 10/08/2022 8:32 AM NUCLEAR POWERPLANT SUPERVISOR Temperature 36.6 ??C (97.8 ??F) 10/08/2022 8:32 AM CS T Respiratory Rate - - Oxygen Saturation - - Inhaled Oxygen Concentration - - Weight 100.2 kg (221 lb) 10/08/2022 8:32 AM NUCLEAR POWERPLANT SUPERVISOR Height 165 cm (5' 4.96 ) 10/08/2022 8:32 AM NUCLEAR POWERPLANT SUPERVISOR Body Mass Index 36.82 10/08/2022 8:32 AM NUCLEAR POWERPLANT SUPERVISOR documented in this encounter Patient Instructions * Patient Instructions* Mary Quiroz MD - 10/08/2022 8:20 AM NUCLEAR POWERPLANT SUPERVISOR Fatigue Management & Maximizing Energy: Returning to Daily Activities and Meaningful Occupations Fatigue is common in those recovering from COVID-19 and can be one of the most debilitating and long lasting symptoms. It is defined as ???a feeling of weariness, tiredness or lack or energy. It can be physical, cognitive, or emotional, mild to severe, intermittent to persistent, and impact a person???s energy, motivation and concentration.?? . These symptoms can fluctuate and while they typically slowly improve over time, additional interventions should be considered if the condition lasts longer than four weeks, is severe, or is negatively impacting an individual???s quality of life and ability to participate in meaningful activities oroccupations. (Flex et al., 202) All patients can benefit from self-management strategies such as the ???Stop, Rest, Pace?? and consider referring those with persistent fatigue to an Occupation Therapist to support patients return to activities and meaningful occupations. Common descriptors of fatigue in those recovering from COVID-19 include: Severe exhaustion after minimal physical or mental exertion The sense of being weighed down all day After having a ???good day??? of increased activity level, the feeling of ???crashing??? requiring several days recovery Persistent tiredness or exhaustion after sleep/upon waking Post-COVID fatigue may be multifactorial and influenced by sleep, nutrition, drug reactions, mood- anxiety/ depression, changes in routine, autoimmune, cardiac, respiratory, or endocrine disorders. These conditions should be addressed concurrently as part of a fatigue management plan. According to Noemi, et al. (202), the definitions of fatigue used in the Myalgic Encephalomyelitis/Chronic Fatigue Syndrome (ME/CFS) Clinical guideline (2007) can also be applied to Post-COVID fatigue: Mild Fatigue: independent with mobility, ADLs, and light housework (with difficulty); May be able to return to work/school but not participate in other, non-essential activities; May require modifications to daily routines or schedules. Moderate Fatigue: Decreased community mobility and Instrumental Activities of Daily Living (IADL); generally stop work/school and require frequent rest periods or naps. Severe Fatigue: Decreased Basic Activities of Daily Living (BADL) and mobility; mostly confined to home - leaving home may lead to prolonged after effects. Traditionally, fatigue management strategies have used the term energy conservation. Recently, however, the term energy maximization is being adopted as it emphasizes a strength-based, positive approach and better aligns with patient???s goals. Patients have expressed they do not want to ???save or conserve??? their energy but strive to utilize energy as efficiently as possible in order to participate in the activities or occupations that are most important to them. Using energy maximization strategies can help patients to avoid PostExertional Symptom Exacerbation (PESE)/Post-Exertional Malaise (PEM). Red Flags Significant Dyspnea Unexplained chest pain or tightness Yellow Flags Elevated heart rate o Heart rate (HR) may increase quickly due to significant deconditioning. HR and heart rate recovery (HRR) should be monitored closely during exercise. Psychological Changes o Repeated reports of ???low energy??? in combination with low mood, changes in appetite and/or sleep may be indicators of depression and may warrant further screening. Treatment Considerations: Principles and strategies for Energy Maximization Most COVID 19 patients anticipated a short-term illness and are coming to terms with making lifestyle adjustments to manage their recovery. It is not uncommon for those affected to experience anxiety, shame and frustration resulting from the experiencing a prolonged recovery and an inability to return to your usual routine. Collaborative goal setting conversations can be the first step in identifying goals and priorities for allocating and maximizing energy. Once goals have been established, tracking current activities and energy levels (and other post exertional symptoms) can be a valuable tool to understand energy utilization patterns and occupational participation. Symptom tracking including Rate of Perceived Exertion or Activity and Symptom trackers can support and develop an understanding of your current energy budget. It is important to develop awareness of your energy ???budget?? and the cost associated with individual PESE triggers. Ensure you have considered not just the cost of physical tasks but also emotional and cognitive energy outputs. There is a ???Push and Crash?? or ???Boom and Bust?? cycle that often has a causational relation to PESE/PEM. It is important to note that there can be a delay in experiencing a ???crash?? of 12- 72 hours. Recovery experience can be non-linear and progression of activity level should be based onavoidance of symptom exacerbation. Energy maximization strategies like pacing, are ways to avoid PESE and is a way to reduce symptoms, regain control, and support improvement. It is important for patients and families to understand that participating in cognitively, emotionally, or spiritually demanding activities also requires energy and that thoughts and emotions can be a barrier to successful implementation of energy maximization techniques. Energy Budget explained: ???Just like with money it is important to know how much energy you have so you don???t over spend and go into overdraft (PESE is like overdraft - you pay high interest when you take out more than you have). All activities require energy. Developing an understanding of your current energy budget and the cost of individual activities can help you plan to spend wisely and avoid PESE. You can make deposits to your account thru restorative activities like quality rest, deep breathing and relaxation. The Six P???s of Energy Maximization 1. Pacing with precaution - Identify your energy budget and problem solve around how you can pace yourself to stay within this budget. Breaking up activities and proactively building in frequent restbreaks are important features of pacing. 2. Positioning - Modify activities so they are more energy efficient. This can include the use of gadgets/aids and equipment as well as your body position during activities. Aids such as bathing or mobility aids may be useful in maximizing energy. 3. Planning - Using a journal/planner scheduler/agenda can assist with planning tasks on a daily or weekly basis as well as help reflection on energy reserves to avoid over exertion. Develop a sustainable routine with rest as the foundation and include activities that restore energy or rejuvenate you. 4. Prioritizing - Identify priorities for the day/week; ???what matters most to you???. Consider which activities you must complete and which could be delegated. 5. Problem solving - Look for new and energy efficient ways to engage in activities. Recognizing and celebrate successes. 6. Permission - Give yourself permission to do things differently than before COVID. It is important to be patient with yourself and acknowledge recovery can take time. Self - compassion skills can support this. Rules for rest Rest before you are fatigued. If you rest when you start to get tired rather than after you are exhausted you will require less recovery time. Take short, frequent rests. They can add up to less overall rest time. [place] with timing and length of rest. Plan rest into your schedule first, then schedule activities around rest. Think of rest as an activity and plan it into your day. Make rest a habit. To use budgeting terms, resting is making a deposit into your energy bank account. Progressing Activities Physical therapy clinic will help you to develop a symptom-guided rehabilitation program with shortand long goods drier goals where progressions are not based on timelines but are titrated based on the avoidance of symptom exacerbation. In order to break the Push/Crash Cycle, patients must develop new activity patterns by: 1. Recognizing individual symptoms of fatigue (PESE) and triggers. 2. Finding a current activity budget (activity levels that do not result in PESE) 3. Adapting activity budgets (learning to work within your budget) 4. Expanding limits based base on absence of symptom exacerbation [place]ORD MESSAGES: ? Guided discussions including activity analysis can support patients to incorporate the 6 P???s atthe task/day/week levels. ? Increasing or adding new activities is not based solely on target dates but on the absence of PESE. ? Support the development of new routines with an emphasis on pacing and avoidance of push/ crash cycles. ? A ashford feature of maximizing energy is rest and quaker SPECIAL AREAS FOR CONSIDERATION: Return to Work (RTW) or return to school for children, youth and young adults. In an online survey of 3762 individuals whose illness lasted over 28 days, Merrick et al (2020) found45.2% required a reduced work schedule compared to pre-illness and an additional 22.3% were not working at all due to illness. By seven months, many patients had not yet recovered (mainly from systemic and neurological/cognitive symptoms) and had not returned to previous levels of work. Determining readiness A successful return the work plan needs to be sustainable. Before looking at returning to work, it is important to consider if you are managing home life within your energy budget. Managing home lifecan be characterized by the ability to minimize push/crash cycles while engage in most home life activities. You still need to be able to prepare meals, do laundry, shower and commute to work in addition to doing your paid occupation. Having a plan to mitigate the home life energy demands through the use of strategies such as delegation may allow for return to work despite not yet returning to full home life activities. This will depend on the your priorities. Consider beginning by progressively practicing return to work activities like waking up closer to your work hours and simulating job duties. Making a plan to reduce the anxiety of RTW is also important, as this can be a trigger for PESE. Activity/ symptom logs can help determine if current activity levels are supportive of RTW. Abilityto engage in cognitive, physical, and emotional activities without frequent and prolonged PESE as well as adequate sleep schedules are factors that support return to work. Once it is determined that t here is a manageable home life plan, engaging in a job duty activity analysis can support making recommendations for appropriate accommodations (if needed) and return to work schedule. Job duty analysis can include developing a list the job demands (duties/tasks) and identifying physical, cognitiveand emotional PESE triggers. Once carriers/challenges as well as strengths for return to work are identified, you can problem solve through these barriers and enhance strengths. Return to work plans should be individualized and based on clinical judgement. Consider if aids, adaptation or work duty/ hours are required. Depending on the your needs, adaptations and aids could include ergonomic work environments, computer accessibility features, assistive devices and technology, mental wellness supports, a place to take rest break. Pacing and rest breaks are a ashford features in managing fatigue so accommodations in length of work day / days of work, frequency/ length of breaks can be supportive. If patients are using energy maximization strategies in their daily lives, they may find it useful to apply similar strategies in the work place. It is also important to consider that managing an illness takes energy and should be built this into RTW plan. Medical appointments should ideally be consider part of the work day. During the patient???s first few weeks returning to work, it can be supportive to reducethe home life work load by delegating, planning ahead and prioritizing. Progressive return to work planning People with Post COVID may require a more gradual RTW plan when compared to a musculoskeletal injury population. Progression should not be based on timelines but on ability to manage/ avoid PESE. If timelines are required, it is can be helpful to build an option in the plan to re-adjust timelines if progressions are not manageable. Avoid progressing more than one variable at a time (example: hours of work, days of work, duties). Working from home can reduce the energy demands of commuting. Sex and Intimacy Post COVID patients have expressed barriers to sex/intimacy including fatigue, brain fog, erectile dysfunction and irregular periods. Open communication between partners is essential to support sexual wellness when recovering from Post-COVID. Communication can support shared problem solving and combats the tendency to isolate. Consider applying the 6 P???s to sex/intimacy. Planning intimacy for atime of day when ones energy is best, is a supportive strategy. As well, consider positions that are energy efficient. Pacing can be supportive as some extra time may be required to support arousal. Relaxation techniques can also support managing anxiety and help support setting the scene for intimacy and connection. It can alsobe supportive to look at alternatives to intercourse for intimacy. EAR POWERPLANT SUPERVISOR EAR POWERPLANT SUPERVISOR EAR POWERPLANT SUPERVISOR EAR POWERPLANT SUPERVISOR * Attachments The following attachments cannot be sent through Care Everywhere. * Chronic Fatigue Syndrome (Discharge Care) (Yi) documented in this encounter Progress Notes * Mary Quiroz MD - 10/08/2022 8:20 AM CST [facility] Care and Recovery (CARE) from COVID Clinic Initial Visit Chief Complaint: Chief Complaint Patient presents with New Patient Fatigue, shortness of breath HPI: Олег Paz is a 47 y.o. White female presenting to [facility] for long COVID evaluation. Patient name: Олег Paz : 1975 P[place] [address] [address] [address] Race: White Sex at : female Gender identity: female Patient reports fatigue, way more tired than she has been. Trying to move more, she has started yoga and other exercises which have definitely helped with symptoms. One of things she has noticed is she has been sleeping through alarms which is new for her. She feels exhausted even after waking up after sleeping. Last year, she had body aches, muscle pains and was diagnosed with statin induced myopathy in the context of increased CK, elevated AST/ALT. All these normalized on follow up labs after statin was stopped. This was interesting for her because she had been on statins for quite some time when she developed these symptoms. Myalgia also resolved after being off statins. Symptoms particularly flared up after second infection in July. In August her PCP got autoimmune labs on her and BALDOMERO was highpositive, C3 was low and immunoglobulins were deranged. Initial COVID test in Jul was negative, butsymptoms continued to August. She had cough, shortness of breath. Never required hospital admission, O2 supplementation. Reports shortness of breath with exertion. If she walks up the stairs. Its ok when she sets her ownpace. Had sleep study and is waiting on her BIPAP. All CXR have been normal. PFTs have gotten worseover time. Meteorological Technician is planning on CT chest scan later. Currently no symptoms of fever, chills, rash, night sweats, weight loss, headache, swollen joints, muscle pain. She has no personal or immediate family history of autoimmune diseases or immunocompromising states. No h/o recurrent URI infections/ pneumonias/ SSTIs. 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 She has no past medical history of Acute respiratory failure requiring reintubation (CMS/HCC) ([facility]), Breast cancer (CMS/HCC) ([facility]), History of chemotherapy, History of radiation therapy, Postoperative delirium, Seizures (CMS/HCC) ([facility]), Smoking, or Stroke (CMS/HCC) ([facility]). Past Surgical History has a past surgical history that includes Tubal ligation (2008); Breast biopsy; Lumbar spine surgery (2012); Dilation and curettage of uterus (2004); section (); Hysterectomy; Carpal tunnel release (Bilateral); and Shoulder arthrotomy (Right, 04/09/2022). Past Social History reports that she has never smoked. She has never used smokeless tobacco. She reports that she does not use drugs. Medications Current Outpatient Medications: alirocumab 150 mg/mL pen injector, Inject 150 mg under the skin every 14 (fourteen) days, Disp: 6 mL, Rfl: 1 ascorbic acid (VITAMIN C) 500 mg tablet,chewable, Take 1 tablet/chew tab (500 mg total) by mouth 2 (two) times a day, Disp: 60 tablet/chew tab, Rfl: 0 cholecalciferol (VITAMIN D-3) 2000 unit capsule, Take 1 capsule (2,000 Units total) by mouth daily (Patient not taking: Reported on 05/08/2022), Disp: 30 capsule, Rfl: 0 citalopram (CeleXA) 40 mg tablet, TAKE 1 TABLET BY MOUTH EVERY DAY IN THE MORNING, Disp: 90 tablet,Rfl: 1 evolocumab (REPATHA) syringe syringe, Inject 1 mL (140 mg total) under the skin every 14 (fourteen)days, Disp: 6 mL, Rfl: 1 levothyroxine (SYNTHROID) 175 mcg tablet, TAKE 1 TABLET BY MOUTH EVERY DAY, Disp: 90 tablet, Rfl: 1 losartan (COZAAR) 100 mg tablet, TAKE 1 TABLET BY MOUTH EVERY DAY, Disp: 90 tablet, Rfl: 1 ondansetron (ZOFRAN) 4 mg tablet, Take 1 tablet (4 mg total) by mouth every 6 (six) hours as neededfor nausea or vomiting (Patient not taking: Reported on 05/28/2022), Disp: 30 tablet, Rfl: 1 oxyCODONE-acetaminophen (PERCOCET) 5-325 mg per tablet, Take 1-2 tablets every 4-6 hours as needed for pain, Disp: 30 tablet, Rfl: 0 senna-docusate (PERICOLACE) 8.6-50 mg, 1-2 times daily as needed for constipation (Patient not taking: Reported on 05/08/2022), Disp: 30 tablet, Rfl: 1 Allergies Allergies Allergen Reactions Cefazolin Blisters and Redness Gdkgjbs-Usd-Uel Reductase Inhibitors Muscle pain and Joint pain Family History Family history has been reviewed and is pertinent for: Father - lung cancer, sister - cervical cancer and SCC cancer. Dad's sister - lupus and Crohn's . Family History Problem Relation Age of Onset [...] Brother Hyperlipidemia; Skin cancer Sister Cancer, skin; Exam: LMP 10/23/2019 Comment: currently taking progesterone since November 2019- has breakthrough bleeding Physical Exam General: well dressed, well nourished, NAD HENT: NC/AT, EOMI, PERRL Neck: supple, no JVD, no cervical lymphadenopathy CV: RRR, S1 and S2, no m/g/r Pulm: CTAB, no wheezes, rales, or rhonchi GI: abdomen is soft, NT, ND, active bowel sounds Skin: warm and well perfused, no edema Neuro: A&Ox4, no focal deficits Psych: appropriate mood and affect Assessment & Plan: Post-Acute Sequelae of COVID-19 (PASC): no specific testing is currently available for [facility]. Initial assessment includes evaluating for non-COVID conditions that could be contributing to symptoms andevidence of end-organ dysfunction. Assessment and management derived from CDC guidelines, consensus statements, and expert guidance. Fatigue, PESE: most common symptom in [facility]. No current evidence of end-organ damage (e.g., heart failure, pulmonary fibrosis). Another concern here is her untreated SHREYA. Possible symptoms will get better with initiation of BIPAP. - Lab evaluation for reversible etiologies: CBC with differential, CMP, TSH, CK - [facility] behavioral recommendations: discussed importance of energy conservation, pacing, and rest. Reviewed need to avoid overexertion or activity that leads to increased fatigue or flares in symptoms(e.g., PEM/PESE). - Recommend activity tracking to identify triggers for PEM / PESE, particularly as flares can be delayed 12-48 hours after activity - Reviewed medications; no current medications likely to be contributing - Support and referrals: [facility] [place] ([facility]) Shortness of breath or dyspnea: patient had mild-moderate illness without hypoxemia and with SpO2>92% in office today. Patients who did not require hospitalization commonly experience dyspnea of unclear cause. - Patient already established with Pulmonology and has abnormal PFT and has been recommended BiPAP. - low concern for cardiac dyspnea based on history and exam; no current indication for cardiac evaluation such as TTE or stress testing Disrupted Sleep: - reviewed sleep hygiene, resources provided - has already been prescribed BIPAP for recently diagnosed SHREYA. Possible autoimmune condition - PCP evaluation in August showed elevated BALDOMERO, altered complements and Immunoglobulin panels. - repeated today BALDOMERO, RF, anti-CCP, ANCA, CK - Recommended patient get established with Rheumatology. COVID-19 Vaccination Eligible for vaccine. Since recent infection was in July, she will wait until October for booster. Cardiopulmonary Symptoms None Note and recommendations sent to patient's PCP, Cassius Ortega, TILE LAYER SUPERVISOR RTC PRN. Instructed to contact clinic with any concerns or questions. My total encounter time on 10/08/2022 was 65 minutes which was spent in the activities documented above. This includes time spent prior to the visit and after the visit in direct care of the patient.This time does not include time spent in any separately reportable services. Mary Quiroz MD * Alina Higginbotham LCSW - 10/08/2022 8:20 AM CST SW met with patient in the ID exam room. Introduced self and role within the COVID Clinic. Providedcontact information and encouraged patient to reach out with questions/concerns, or if she is needing Community Resources or any [employer] assistance. Patient acknowledged. Patient voiced good support from family. 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 No needs identified or expressed atthis time. SW will remain available to patient as needed. Cosigned by Mary Quiroz MD at 10/08/2022 10:18 AM NUCLEAR POWERPLANT SUPERVISOR EAR POWERPLANT SUPERVISOR EAR POWERPLANT SUPERVISOR documented in this encounter Plan of Treatment Not on file documented as of this encounter Procedures Procedure Name Priority Date/Time Associated Diagnosis Comments BALDOMERO QUALITATIVE WITH REFLEX TO BALDOMERO QUANTITATIVE Routine 10/08/2022 9:39 AM NUCLEAR POWERPLANT SUPERVISOR Multiple persistent symptoms after COVID-19 EGFR Routine 10/08/2022 9:39 AM NUCLEAR POWERPLANT SUPERVISOR Multiple persistent symptoms after COVID-19 DIFFERENTIAL AUTO Routine 10/08/2022 9:3 9 AM NUCLEAR POWERPLANT SUPERVISOR Multiple persistent symptoms after COVID-19 THYROID FUNCTION CASCADE Routine 10/08/2022 9:39 AM NUCLEAR POWERPLANT SUPERVISOR Multiple persistent symptoms after COVID-19 CBC WITH AUTO DIFFERENTIAL Routine 10/08/2022 9:39 AM NUCLEAR POWERPLANT SUPERVISOR Multiple persistent symptoms after COVID-19 CYCLIC CITRUL PEPTIDE ANTIBODY, IGG Routine 10/08/2022 9:39 AM NUCLEAR POWERPLANT SUPERVISOR Multiple persistent symptoms after COVID-19 RHEUMATOID FACTOR Routine 10/08/2022 9:3 9 AM NUCLEAR POWERPLANT SUPERVISOR Multiple persistent symptoms after COVID-19 PHOSPHORUS Routine 10/08/2022 9:39 AM NUCLEAR POWERPLANT SUPERVISOR Multiple persistent symptoms after COVID-19 MAGNESIUM Routine 10/08/2022 9:39 AM NUCLEAR POWERPLANT SUPERVISOR Multiple persistent symptoms after COVID-19 VITAMIN B12 Routine 10/08/2022 9:39 AM NUCLEAR POWERPLANT SUPERVISOR Multiple persistent symptoms after COVID-19 CREATINE KINASE (CK), TOTAL Routine 10/08/2022 9:39 AM NUCLEAR POWERPLANT SUPERVISOR Multiple persistent symptoms after COVID-19 COMPREHENSIVE METABOLIC PANEL Routine 10/08/2022 9:39 AM NUCLEAR POWERPLANT SUPERVISOR Multiple persistent symptoms after COVID-19 documented in this encounter Results * eGFR (10/08/2022 9:39 AM NUCLEAR POWERPLANT SUPERVISOR) eGFR >90 90 - 130 mL/min/1. 73 m2 [facility] Comment: Interpretive Data Reference Interval Normal ?>/= [...] interpretive data was last reviewed 2021. Blood 10/08/2022 9:39 AM NUCLEAR POWERPLANT SUPERVISOR 10/08/2022 2:01 PM NUCLEAR POWERPLANT SUPERVISOR Mary Quiroz MD LAB BLOOD ORDERABLES Final Result [facility] One [facility] [place] [address] * Differential, auto (10/08/2022 9:39 AM NUCLEAR POWERPLANT SUPERVISOR) Neutrophil abs 4.1 1.7 - 6.5 K/cumm [facility] Imm gran abs 0.0 0.0 - 0.1 K/cumm [facility] Lymphocyte abs 2.8 0.8 - 3.3 K/cumm [facility] Monocyte abs 0.6 0.2 - 0.8 K/cumm [facility] Eosinophil abs 0.1 0.0 - 0.5 K/cumm [facility] Basophil abs 0.0 0.0 - 0.1 K/cumm [facility] Neutrophil pct 53.5 % [facility] Comment: Interpretive Data Percent cell count reference ranges are not reported, since discordance with absolute values may lead to misinterpretation of CBC data. Current Interpretive Data was last revised on 2017. Imm gran pct 0.3 % [facility] Comment: Interpretive Data Percent cell count reference ranges are not reported, since discordance with absolute values may lead to misinterpretation of CBC data. Current Interpretive Data was last revised on 2017. Lymphocyte pct 36.5 % [facility] Comment: Interpretive Data Percent cell count reference ranges are not reported, since discordance with absolute values may lead to misinterpretation of CBC data. Current Interpretive Data was last revised on 2017. Monocyte pct 8.3 % [facility] Comment: Interpretive Data Percent cell count reference ranges are not reported, since discordance with absolute values may lead to misinterpretation of CBC data. Current Interpretive Data was last revised on 2017. Eosinophil pct 0.9 % [facility] Comment: Interpretive Data Percent cell count reference ranges are not reported, since discordance with absolute values may lead to misinterpretation of CBC data. Current Interpretive Data was last revised on 2017. Basophil pct 0.5 % [facility] Comment: Interpretive Data Percent cell count reference ranges are not reported, since discordance with absolute values may lead to misinterpretation of CBC data. Current Interpretive Data was last revised on 2017. Blood 10/08/2022 9:39 AM NUCLEAR POWERPLANT SUPERVISOR 10/08/2022 1:56 PM NUCLEAR POWERPLANT SUPERVISOR us Mary Quiroz MD LAB BLOOD ORDERABLES Final Result [facility] One [facility] Department [place] [address] * Phosphorus (10/08/2022 9:39 AM NUCLEAR POWERPLANT SUPERVISOR) Phosphorus, pl 3.3 2.3 - 4.5 mg/dL [facility] Blood 10/08/2022 9:39 AM NUCLEAR POWERPLANT SUPERVISOR 10/08/2022 1:56 PM NUCLEAR POWERPLANT SUPERVISOR us Mary Quiroz MD LAB BLOOD ORDERABLES Final Result Performing Organization Address [facility] [place] [address] * Magnesium (10/08/2022 9:39 AM NUCLEAR POWERPLANT SUPERVISOR) Magnesium 2.1 1.4 - 2.5 mg/dL [facility] Blood 10/08/2022 9:39 AM NUCLEAR POWERPLANT SUPERVISOR 10/08/2022 1:56 PM NUCLEAR POWERPLANT SUPERVISOR us Mary Quiroz MD LAB BLOOD ORDERABLES Final Result Performing Organization Address [facility] de Phone Number [facility] [employer] [place] [address] * Vitamin B12 (10/08/2022 9:39 AM NUCLEAR POWERPLANT SUPERVISOR) Vitamin B12 652 230 - 1,250 pg/mL [facility] Blood 10/08/2022 9:39 AM NUCLEAR POWERPLANT SUPERVISOR 10/08/2022 1:56 PM NUCLEAR POWERPLANT SUPERVISOR us Mary Quiroz MD LAB BLOOD ORDERABLES Final Result Performing Organization Address City/[facility] Co de Phone Number [facility] [place] [place] [address] * Creatine kinase (CK), total (10/08/2022 9:39 AM NUCLEAR POWERPLANT SUPERVISOR) CK 182 30 - 200 Units/L [facility] Blood 10/08/2022 9:39 AM NUCLEAR POWERPLANT SUPERVISOR 10/08/2022 1:56 PM NUCLEAR POWERPLANT SUPERVISOR us Mary Quiroz MD LAB BLOOD ORDERABLES Final Result Performing Organization Address City/[facility]/ZIP Co de Phone Number [facility] [place] [address] * TSH reflex to free T4 (10/08/2022 9:39 AM NUCLEAR POWERPLANT SUPERVISOR) [facility] TSH 0.52 0.30 - 4.20 mcIUnit/mL [facility] Blood 10/08/2022 9:39 AM NUCLEAR POWERPLANT SUPERVISOR 10/08/2022 1:56 PM NUCLEAR POWERPLANT SUPERVISOR Mary Quiroz MD LAB BLOOD ORDERABLES Final Result Performing Organization Address [facility] Co de Phone Number [facility] [place] [address] * (ABNORMAL) CBC with auto differential (10/08/2022 9:39 AM NUCLEAR POWERPLANT SUPERVISOR) [facility] WBC 7.7 3.8 - 9.9 K/cumm [facility] Hgb 11.8(L) 11.9 - 15.5 g/dL [facility] Hct 36.8 35.6 - 45.5 % [facility] Plt 283 150 - 400 K/cumm [facility] MPV 9.1 9.1 - 12.3 fL [facility] RBC 4.04 3.90 - 5.20 M/cumm [facility] MCV 91.1 81.3 - 96.4 fL [facility] MCH 29.2 27.1 - 33.3 pg [facility] MCHC 32.1(L) 32.3 - 35.7 g/dL [facility] RDW CV 14.6 11.1 - 14.9 % [facility] RDW SD 49.7(H) 35.7 - 48.1 fL [facility] NRBC abs 0.00 0.00 - 0.01 K/cumm [facility] Blood 10/08/2022 9:39 AM NUCLEAR POWERPLANT SUPERVISOR 10/08/2022 1:56 PM NUCLEAR POWERPLANT SUPERVISOR Result [facility] Mary Quiroz MD LAB BLOOD ORDERABLES Final Result Performing Organization Address [facility] de Phone Number [facility] [employer] [place] [address] * Cyclic citrul peptide antibody, IgG (10/08/2022 9:39 AM NUCLEAR POWERPLANT SUPERVISOR) Pathologist [facility] CCP Ab See Comment <=2.9 [facility] Comment: Testing performed by: [place] [address]. ??Results to follow. Interpretive data Negative: <3 units/mL Positive: > or equal to 3 units/mL Current interpretive data was last revised on 2016. Blood 10/08/2022 9:39 AM NUCLEAR POWERPLANT SUPERVISOR 10/08/2022 1:56 PM NUCLEAR POWERPLANT SUPERVISOR Result [facility] Mary Quiroz MD LAB BLOOD ORDERABLES Final Result Performing Organization Address [facility] de Phone Number [facility] [place] [address] * Rheumatoid factor (10/08/2022 9:39 AM NUCLEAR POWERPLANT SUPERVISOR) [facility] Rheumatoid factor, quant <10.0 0.1 - 15.0 IUnits/mL [facility] Blood 10/08/2022 9:39 AM NUCLEAR POWERPLANT SUPERVISOR 10/08/2022 1:56 PM NUCLEAR POWERPLANT SUPERVISOR Result [facility] Mary Quiroz MD LAB BLOOD ORDERABLES Final Result Performing Organization Address [facility] [place] [address] * BALDOMERO qualitative with reflex to BALDOMERO Quantitative (10/08/2022 9:39 AM NUCLEAR POWERPLANT SUPERVISOR) [facility] BALDOMERO Positive [facility] Comment: Interpretive Data Normal range for BALDOMERO Qualitative Antibody = Negative. 1. BALDOMERO is performed using indirect immunofluorescence against HEp-2 cells 2. BALDOMERO titers are performed on all positive qualitative results. 3. A significantly positive BALDOMERO result is defined as a positive nuclear fluorescence at a titer of 1:80 or greater. 4. 15% of normal people above age 65 have significantly positive BALDOMERO results. ??5% or less of normal people age 65 or under have significantly positive BALDOMERO results. Current interpretive data was last revised on 2020. BALDOMERO, quant 1:320 titer [facility] BALDOMERO, interp Speckled [facility] Blood 10/08/2022 9:39 AM NUCLEAR POWERPLANT SUPERVISOR 10/08/2022 1:56 PM NUCLEAR POWERPLANT SUPERVISOR Mary Quiroz MD LAB BLOOD ORDERABLES Final Result [facility] One [facility] Department [place] [address] * Comprehensive metabolic panel (10/08/2022 9:39 AM NUCLEAR POWERPLANT SUPERVISOR) Sodium 140 135 - 145 mmol/L [facility] Potassium, pl 3.9 3.3 - 4.9 mmol/L [facility] Chloride 103 97 - 110 mmol/L [facility] CO2 28 22 - 32 mmol/L [facility] Anion gap 9 2 - 15 mmol/L [facility] BUN 12 8 - 25 mg/dL [facility] Creatinine 0.69 0.60 - 1.10 mg/dL [facility] Glucose 77 70 - 199 mg/dL [facility] Comment: Interpretive Data Fasting glucose >/= 126 [...] interpretive data was last revised 2022. Calcium 9.8 8.5 - 10.3 mg/dL [facility] Bilirubin, total 0.3 0.1 - 1.2 mg/dL [facility] Protein, pl 8.2 6.5 - 8.5 g/dL [facility] Albumin 4.8 3.5 - 5.0 g/dL [facility] Alk phos 69 40 - 130 Units/L [facility] ALT 31 7 - 45 Units/L [facility] AST 28 10 - 45 Units/L [facility] Blood 10/08/2022 9:39 AM NUCLEAR POWERPLANT SUPERVISOR 10/08/2022 1:56 PM NUCLEAR POWERPLANT SUPERVISOR us Mary Quiroz MD LAB BLOOD ORDERABLES Final Result [facility] One [facility] Department [place] [address] documented in this encounter Visit Diagnoses Diagnosis Multiple persistent symptoms after COVID-19- Primary History of COVID-19 documented in this encounter Orders Outpatient Referral Count Last Ordered Date Fir st Ordered Date AMB REFERRAL TO INFECTIOUS DISEASE 1 2022 documented in this encounter Care Teams Contract Loader Relationship Specialty [place] [address] [address] [facility] [address] [place] [address] PCP - General Family Medicine 02/21/19 Roya Andre PA [address] [facility] [address] [place] [address] Physician Value Analyst Orthopedic Surgery 04/09/22 Alina Higginbotham LCSW [address] [facility] [address] Conduit Mechanic Infectious Diseases 10/08/22 documented as of this encounter
--- OUTSIDE RECORDS SUMMARY | 2024-08-09 23:29 | XMS_ITS | Encounter Summary ---
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 Denied due to pt not having a DM diagnosis. * Telephone Encounter - Yari Amaral MA - 05/11/2023 7:52 AM CDT PA started for Ozempic 2mg pen via [employer]. Llamas: [id number] documented in this encounter Plan of Treatment Not on file documented as of this encounter Visit Diagnoses Not on filedocumented in this encounter Care Teams Community Life Director Relationship Specialty [place] [address] [address] [facility] [address] [address] PCP - General Family Medicine 02/21/19 Roya Andre PA [address] [place] [address] [address] [place] [address] Physician Rock Splitter Orthopedic Surgery 04/09/22 Alina Higginbotham, [facility] [address] [facility] [address] Lip Of Shank Cutter Infectious Diseases 10/08/22 documented as of this encounter
--- OUTSIDE RECORDS SUMMARY | 2024-08-09 23:29 | XMS_ITS | Encounter Summary ---
Author Organization [facility] Healthcare Address [address] [place] [address] Care Team Providers Care Bath Mixer Name Role Phone Cassius Ortega NP Primary Care Provider [phone] Roya Andre Unavailable [phone] Reason for Visit * Reason Comments Anxiety Anxiety and stress f /u Stress Encounter Details Date Type Department Care Team (Late st Contact Info) Description 11/25/2023 8:15 AM CDT Office Visit Family Care at [address] [address] Cassius Ortega NP [address] [place] [address] [address] Anxiety (Primary Dx); Class 1 obesity due to excess calories with serious comorbidity and body mass index (BMI) of 34.0 to 34.9 in adult Social History Tobacco Use Types Packs/Day Years Used Date Smoking Tobacco: Never Smokeless Tobacco: Never Alcohol Use Standard Drinks/Week Comments Yes 0 (1 standard drink = 0.6 oz pur e alcohol) socially AUDIT-C Answer Date Recorded Q1: How often do you have a drink containing alc ohol? 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 Subjective/Objective Patient ID: Deejay Paz is a 48 y.o. female. Chief Complaint Anxiety (Anxiety and stress f/u) and Stress Pt here for follow up on her stress and anxiety which has increased recently. She feels overwhelmedand has moments she has emotional reactions sometimes through crying and other times just feeling like there is too much going on. 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 She states she has been on celexa for about 17 years and not sure if it is still helping. She states she has taken some previously prescribed xanax during an exacerbation of her anxiety and this has helped. Anxiety Presents for follow-up visit. Symptoms include decreased concentration, depressed mood, nervous/anxious behavior, palpitations and restlessness. Patient reports no chest pain, nausea or shortness of breath. Symptoms occur most days. The severity of symptoms is moderate. The quality of sleep is fair. Nighttime awakenings: occasional. Review of Systems Constitutional: Negative for fatigue and fever. HENT: Negative for congestion, rhinorrhea and sore throat. Respiratory: Negative for cough, chest tightness and shortness of breath. Cardiovascular: Positive for palpitations. Negative for chest pain and leg swelling. Gastrointestinal: Negative for abdominal pain and nausea. Endocrine: Negative for cold intolerance and heat intolerance. Neurological: Negative for headaches. Psychiatric/Behavioral: Positive for decreased concentration. Negative for sleep disturbance. The patient is nervous/anxious. Physical Exam Vitals reviewed. Constitutional: Appearance: She is well-developed. HENT: Head: Normocephalic and atraumatic. Right Ear: External ear normal. Left Ear: External ear normal. Nose: Nose normal. Eyes: General: No scleral icterus. Right eye: No discharge. Left eye: No discharge. Conjunctiva/sclera: Conjunctivae normal. Pupils: Pupils are equal, round, and reactive to light. Neck: Thyroid: No thyromegaly. Vascular: No JVD. Cardiovascular: Rate and Rhythm: Normal rate and regular rhythm. Heart sounds: Normal heart sounds. No murmur heard. No friction rub. No gallop. Pulmonary: Effort: Pulmonary effort is normal. No respiratory distress. Breath sounds: Normal breath sounds. No wheezing or rales. Chest: Chest wall: No tenderness. Abdominal: General: Bowel sounds are normal. Palpations: Abdomen is soft. Tenderness: There is no abdominal tenderness. Musculoskeletal: General: Normal range of motion. Cervical back: Normal range of motion and neck supple. Lymphadenopathy: Cervical: No cervical adenopathy. Skin: General: Skin is warm and dry. Neurological: Mental Status: She is alert and oriented to person, place, and time. Psychiatric: Behavior: Behavior normal. Assessment/Plan Diagnoses and all orders for this visit: Anxiety (F41.9) (Primary) Assessment & Plan: Continue citalopram at this time Continue alprazolam as needed Revisit anxiety in November at next visit to determine if changes in SSRI are warranted Class 1 obesity due to excess calories with serious comorbidity and body mass index (BMI) of 34.0 to 34.9 in adult (E66.09, Z68.34) Assessment & Plan: Plan for weight loss is to decrease calories in diet and increase activity Cassius Ortega NP documented in this encounter Miscellaneous Notes * Assessment & Plan Note - Cassius Ortega NP - 11/25/2023 11:21 AM CDT Associated Problem(s): Class 1 obesity due to excess calories with serious comorbidity and body mass index (BMI) of 34.0 to 34.9 in adult Plan for weight loss is to decrease calories in diet and increase activity * Assessment & Plan Note - Cassius Ortega NP - 11/25/2023 11:20 AM CDT Associated Problem(s): Anxiety Continue citalopram at this time Continue alprazolam as needed Revisit anxiety in November at next visit to determine if changes in SSRI are warranted documented in this encounter Plan of Treatment Not on file documented as of this encounter Visit Diagnoses Diagnosis Anxiety- Primary Anxiety state, unspecified Class 1 obesity due to excess calories with serious comorbidity and body mass index (BMI) of 34.0 to 34.9 in adult documented in this encounter Discontinued Medications Medication Sig Discontinue Reason Start Date End Da te buPROPion XL (WELLBUTRIN XL) 150 mg 24 hr tabletIndications:Encoun ter for weight loss counseling Take 1 tablet (150 mg total) by mouth every morning 02/18/2023 11/25/2023 documented as of this encounter Care Teams Bath Mixer Relationship Specialty Start [place] [address] [address] [facility] [address] [place] [address] PCP - General Family Medicine 02/21/19 Roya Andre PA [address] [place] [address] [address], [place] [address] Physician Home Builder Orthopedic Surgery 04/09/22 Alina Higginbotham, LAP CHECKER [address] [facility] [address] Layout Operator Infectious Diseases 10/08/22 documented as of this encounter
--- OUTSIDE RECORDS SUMMARY | 2024-08-09 23:29 | XMS_ITS | Encounter Summary ---
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 Triglycerides 167(H) <=149 mg/dL [facility]OR Comment: Interpretive Data [...] revised on 2018. Non-HDL Cholesterol 95 mg/dL [facility] Comment: Interpretive Data Ages [...] last revised on 2018. Chol/HDL ratio 3 [facility] Blood 01/19/2023 10:0 3 AM CDT 01/19/2023 10:03 AM CDT Charly Olson MD LAB BLOOD ORDERABLES Final Res ult Performing Organization Address City/State/[facility] [place] [address] [address] Department [place] [address] * Hepatic function panel (01/19/2023 10:03 AM [...] 3 AM CDT 01/19/2023 10:03 AM CDT Charly Olson MD LAB BLOOD ORDERABLES Final Res ult Performing Organization Address City/State/[facility] Co de Phone Number ED[facility] FLOR [address] [address] Department [place] [address] documented in this encounter Visit Diagnoses Diagnosis Hypercholesterolemia Pure hypercholesterolemia documented in this encounter Care Teams Digester Operator Relationship Specialty [place] [address] [address] [place] [address] PCP - General Family Medicine 02/21/19 Roya Andre PA 4 [facility] [address], [place] [address] Physician Pigment Pusher Orthopedic Surgery 04/09/22 Alina Higginbotham SALES REPRESENTATIVE GIRLS[employer]PAR[employer] 620 [facility] [address] Sewing Machine Operator Floorperson Infectious Diseases 10/08/22 documented as of this encounter
--- OUTSIDE RECORDS SUMMARY | 2024-08-09 23:29 | XMS_ITS | Encounter Summary ---
Author Organization [facility] Address [address] 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 Gender Identity Not on file Sexual Orientation [...] Refills Last Filled Start Date End Date evolocumab (REPATHA) syringe syringe Inject 1 mL (140 mg total) under the skin every 14 (fourteen) days 6 mL 3 03/17/2023 02/23/2024 documented in this encounter Plan of Treatment Not on file documented as of this encounter Visit Diagnoses Not on filedocumented in this encounter Care Teams J2Ee Java Developer Relationship Specialty [place] [address] [address] PCP - General Family Medicine 02/21/19 Roya Andre PA [address] [place] [address] [address] Physician Test Boring Crew Chief Orthopedic Surgery 04/09/22 Alina Higginbotham [address] [address] Horse Breaker Infectious Diseases 10/08/22 documented as of this encounter
--- OUTSIDE RECORDS SUMMARY | 2024-08-09 23:29 | XMS_ITS | Encounter Summary ---
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 DEEJAY ALFORD (Llamas: [id number]) - [phone] Wegovy 0.25MG/0.5ML auto-injectors Status: Created: August 04, [address] [facility] #[id number] ING PILOT INSTRUCTOR documented in this encounter Plan of Treatment Not on file documented as of this encounter Visit Diagnoses Not on filedocumented in this encounter Care Teams Sub Master Relationship Specialty [place] [address] [facility] [address] [address] PCP - General Family Medicine 02/21/19 Roya Andre PA [address] [place] [address] [facility] [address] [address] Physician Director Workforce Management Orthopedic Surgery 04/09/22 Alina Higginbotham LCSW 620 [facility] [address] Biometry Teacher Infectious Diseases 10/08/22 documented as of this encounter
--- OUTSIDE RECORDS SUMMARY | 2024-08-09 23:29 | XMS_ITS | Encounter Summary ---
Author Organization [facility] Address [address] [facility] [address] [place] [address] Phone Care Team Providers Care Licensed Prosthetist/Orthotist Name Role Phone Cassius Ortega NP Primary Care Provider [phone] Roya Andre Unavailable [phone] Encounter Details Date Type Department Care Team (Late st Contact Info) Description 01/08/2023 Orders Only [facility]ne[facility] [address] [facility] 7th Floor [address] [place] [address] Kelly Irizarry MD [facility]1 [facility] [phone] [place], [place] [id number] Social History Tobacco Use Types Packs/Day Years [...] on file 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 Gender Identity Not on file Sexual [...] on filedocumented in this encounter Care Teams Licensed Prosthetist/Orthotist Relationship Specialty [place] [address] [address] [facility] [address] [address] PCP - General Family Medicine 02/21/19 Roya Andre PA 4 [facility] [address] [address] Physician Emergency Vehicle Dispatcher Orthopedic Surgery 04/09/22 Alina Higginbotham, [facility] 620 [facility] [address] Museum Curator Infectious Diseases 10/08/22 documented as of this encounter
--- OUTSIDE RECORDS SUMMARY | 2024-08-09 23:29 | XMS_ITS | Encounter Summary ---
Author Organization [facility] Address [address] [address] Care Team Providers Care Network Security Architect Name Role Phone Cassius Ortega NP Primary Care Provider [phone] Roya Andre Unavailable [phone] Reason for Visit * Reason Comments Weight Check 1 month weight loss check this morning her weight is 208.0 lb Encounter Details Date Type Department Care Team (Late st Contact Info) Description 02/19/2023 9:15 AM CDT Office Visit Family Care at [address] [address] Cassius Ortega NP [address] [place] [address] Primary hypertension (Primary Dx); Hypothyroidism, unspecified type; Class 2 severe obesity due to excess [...] on file 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 Gender Identity Not on file Sexual Orientation Not on file 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 Not on file documented as of this encounter Last Filed Vital Signs Vital Sign Reading Time Taken Comments Blood Pressure 94/64 02/19/2023 9:08 AM CDT Pulse 68 02/19/2023 9:08 AM CDT Temperature - - Respiratory Rate - - Oxygen Saturation - - Inhaled Oxygen Concentration - - Weight 95.7 kg (211 lb) 02/19/2023 9:08 AM CDT Height 165.1 cm (5' 5 ) 02/19/2023 9:08 AM CDT Body Mass Index 35.11 02/19/2023 9:08 AM CDT documented in this encounter Ordered Prescriptions Prescription Sig Dispense Quantity Refills Last Filled Start Date End Date semaglutide 0.25 mg or 0.5 mg (2 mg/3 mL) pen injector injectionIndicatio ns:Weight Loss Management for Obese Patient (BMI >= 30) Inject 0.5 mg under the skin every 7 days 3 mL 02/19/2023 03/23/2023 documented in this encounter Progress Notes * Cassius Ortega, BANKING REPRESENTATIVE - 02/19/2023 9:15 AM CDT Subjective/Objective Patient ID: Deejay Paz is a 48 y.o. female. Chief Complaint Weight Check (1 month weight loss check this morning her weight is 208.0 lb ) Pt states she has lost weight and feeling like her clothes are loose on her. She states she has been able to take the ozempic with some mild nausea at times. She states she has been walking more and feeling better. Hypertension This is a chronic problem. The current episode started more than 1 year ago. The problem is unchanged. The problem is controlled. Pertinent negatives include no anxiety, chest pain, headaches, palpitations, peripheral edema, shortness of breath or sweats. The current treatment provides significant improvement. There are no compliance problems. Review of Systems Constitutional: Negative for fatigue and fever. HENT: Negative for congestion, rhinorrhea and sore throat. Respiratory: Negative for cough, chest tightness and shortness of breath. Cardiovascular: Negative for chest pain, palpitations and leg swelling. Gastrointestinal: Negative for abdominal pain and nausea. Endocrine: Negative for cold intolerance and heat intolerance. Neurological: Negative for headaches. Psychiatric/Behavioral: Negative for sleep disturbance. Physical Exam Vitals reviewed. Constitutional: Appearance: She [...] all orders for this visit: Primary hypertension (I10) (Primary) Assessment & Plan: B/p goal <140/90 Today - 94/64 Continue - losartan Chronic stable condition Hypothyroidism, unspecified type (E03.9) Assessment & Plan: No new symptoms, condition stable on current dose of levothyroxine Class 2 severe obesity due to excess calories with serious comorbidity and body mass index (BMI) of37.0 to 37.9 in adult (HCC) (E66.01, Z68.37) Assessment & Plan: She has lost 8 lbs in a month with ozempic at 0.25 mg weekly, will increase to 0.5 mg weekly Continue diet and exercise Orders: - semaglutide 0.25 mg or 0.5 mg (2 mg/3 mL) pen injector injection; Inject 0.5 mg under the skin every 7 days documented in this encounter Miscellaneous Notes * Assessment & Plan Note - Cassius Ortega NP - 02/19/2023 11:25 AM CDT Associated Problem(s): Primary hypertension B/p goal <140/90 Today - /64 Continue - losartan Chronic stable condition * Assessment & Plan Note - Cassius Ortega NP - 02/19/2023 11:22 AM CDT Associated Problem(s): Class 2 severe obesity due to excess calories with serious comorbidity and body mass index (BMI) of 37.0 to 37.9 in adult (HCC) (Resolved 11/25/2023) She has lost 8 lbs in a month with ozempic at 0.25 mg weekly, will increase to 0.5 mg weekly Continue diet and exercise * Assessment & Plan Note - Cassius Ortega NP - 02/19/2023 11:22 AM CDT Associated Problem(s): Hypothyroidism No new symptoms, condition stable on current dose of levothyroxine documented in this encounter Plan of Treatment Not on file documented as of this encounter Visit Diagnoses Diagnosis Primary hypertension- Primary Unspecified essential hypertension Hypothyroidism, unspecified type Class 2 severe obesity due to excess calories with serious comorbidity and body mass index (BMI) of 37.0 to 37.9 in adult (HCC) documented in this encounter Discontinued Medications Medication Sig Discontinue Reason Start Date End Da te semaglutide 0.25 mg or 0.5 mg (2 mg/3 mL) pen injector injectionIndications:Yuri ght Loss Management for Obese Patient (BMI >= 30) Inject 0.25 mg under the skin every 7 days Reorder 01/11/2023 02/19/2023 documented as of this encounter Care Teams Network Security Architect Relationship Specialty [place] [address] [address] [facility] [address] [address] PCP - General Family Medicine 02/21/19 Roya Andre PA [address] [facility] [address] [address] Physician Railroad Passenger Agent Orthopedic Surgery 04/09/22 Alina Higginbotham, [facility] 620 [facility] [address] Supervisor Force Adjustment Infectious Diseases 10/08/22 documented as of this encounter
--- OUTSIDE RECORDS SUMMARY | 2024-08-09 23:29 | XMS_ITS | Encounter Summary ---
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 Suggest further testing for anti-myeloperoxidase (anti-MPO) antibodies, if clinically indicated. ADDITIONAL INFORMATION This test was developed and its performance characteristics determined by [facility] in a manner consistent with CLIA requirements. This test has not been cleared or approved by the U.S. Food and Drug Administration. Test Performed by: [facility] [place] [address] [employer] Teacher: Timothy Renae M.D. Ph.D.; CLIA# [id number] Blood 10/26/2022 10:2 5 AM CDT 10/26/2022 10:56 AM CDT Timothy Crouch MD LAB BLOOD ORDERABLES [facility] Result [facility] [address] [address] Department [place] [address] * Hepatic function panel (10/26/2022 10:25 AM CDT) Bilirubin, total 0.3 0.1 - 1.2 mg/dL [facility] CH Bilirubin, direct <0.2 0.1 - 0.3 mg/dL [facility] Protein, pl 7.8 6.5 - 8.5 g/dL [facility] Albumin 4.6 3.5 - 5.0 g/dL [facility] Alk phos 73 40 - 130 Units/L [facility] ALT 27 7 - 45 Units/L [facility] AST 25 10 - 45 Units/L [facility] Blood 10/26/2022 10:2 5 AM CDT 10/26/2022 10:25 AM CDT us Timothy Crouch MD LAB BLOOD ORDERABLES nal Result [facility] [address] [address] Department [place] [address] documented in this encounter Visit Diagnoses Not on filedocumented in this encounter Care Teams Anesthetist Relationship Specialty [place] [address] [address] [email or web address] [address] [place] [address] PCP - General Family Medicine 02/21/19 Roya Andre PA [address] [place] [address] [facility] [[email or web address] [address] [address] Physician Oncology Research Rn Orthopedic Surgery 04/09/22 Alina Higginbotham LCSW 620 [facility] [address] Clean Out Driller Infectious Diseases 10/08/22 documented as of this encounter
--- OUTSIDE RECORDS SUMMARY | 2024-08-09 23:29 | XMS_ITS | Encounter Summary ---
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 Gender Identity Not on file Sexual Orientation Not on file 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 documented as of this encounter Plan of Treatment Not on file documented as of this encounter Procedures Procedure Name Priority Date/Time Associated Diagnosis Comments PULMONARY - RESULT SCAN 09/02/2022 documented in this encounter Results * PULMONARY - RESULT SCAN (09/02/2022) Anatomical Region Laterality Modality Other us Provider Scanning Final Result documented in this encounter Visit Diagnoses Not on filedocumented in this encounter Care Teams Sales Estimator Relationship Specialty [place] [address] [address] [facility] [address] [place] [address] PCP - General Family Medicine 02/21/19 Roya Andre PA [address] [place] [address] [address] [place] [address] Physician Assistant Golf Course Superintendent Orthopedic Surgery 04/09/22 Alina Higginbotham LCSW 620 [facility] [address] Customer Relations Coordinator Infectious Diseases 10/08/22 documented as of this encounter
--- OUTSIDE RECORDS SUMMARY | 2024-08-09 23:29 | XMS_ITS | Encounter Summary ---
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 Gender Identity Not on file Sexual Orientation Not on file 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 Not on file documented as of this encounter Medications at Time of Discharge ALPRAZolam (XANAX) 0.25 mg tablet Take 1 tablet (0.25 mg total) by mouth nightly as needed for anxiety 30 tablet 11/25/2023 citalopram (CeleXA) 40 mg tablet Take 1 tablet (40 mg total) by mouth every morning 63 tablet 10/05/2023 12/13/2023 cyclobenzaprine (FLEXERIL) 10 mg tablet Take 1 tablet (10 mg total) by mouth 2 (two) times a day as needed for muscle spasms 20 tablet 01/20/2023 12/10/2023 evolocumab (REPATHA) syringe syringe Inject 1 mL (140 mg total) under the skin every 14 (fourteen) days 6 mL 3 03/17/2023 02/23/2024 levothyroxine (SYNTHROID) 175 mcg tablet Take 1 tablet (175 mcg total) by mouth daily 63 tablet 10/05/2023 12/13/2023 losartan (COZAAR) 100 mg tablet Take 1 tablet (100 mg total) by mouth daily 63 tablet 10/05/2023 12/13/2023 Praluent Pen 150 mg/mL pen injector INJECT 150 MG UNDER THE SKIN EVERY 14 (FOURTEEN) DAYS 6 mL 1 11/10/2022 12/10/2023 semaglutide (WEGOVY) 1 mg/0.5 mL auto-injector Inject 0.5 mL (1 mg total) under the skin every 7 days At the end of the script call for the next higher dose 2 mL 11/17/2023 01/21/2024 documented as of this encounter Discharge Disposition Disposition Code Departure Means Destination Discharge to home or self care documented in this encounter Plan of Treatment Not on file documented as of this encounter Procedures Procedure Name Priority Date/Time Associated Diagnosis Comments XR CHEST PA LATERAL 2 VIEWS Schedule Routine, Read Routine (OP Routine) 12/08/2023 10:02 AM CDT Tuberculosis screening documented in this encounter Results * XR Chest PA Lateral 2 Views (12/08/2023 10:02 AM CDT) Anatomical Region Laterality Modality Body, Chest N/A Computed Radiogr aphy 12/08/2023 10:0 7 AM CDT Impressions 12/08/2023 10:07 AM CDT Normal study. Electronically signed by: Mehdi Law M.D. Narrative 12/08/2023 10:07 AM CDT EXAMINATION: XR CHEST PA LATERAL 2 VIEWS HISTORY: Suspect tuberculosis screening FINDINGS: Compared with study of 03/04/2022, heart size normal. ??Lungs clear. No radiographic evidence of active TB. Procedure Note Mehdi Law MD - 12/08/2023 EXAMINATION: XR CHEST PA LATERAL 2 VIEWS HISTORY: Suspect tuberculosis screening FINDINGS: Compared with study of 03/04/2022, heart size normal. Lungs clear. No radiographic evidence of active TB. IMPRESSION: Normal study. Electronically signed by: Mehdi Law M.D. Cassius Ortega DEVELOPMENT MANAGER IMG XR PROCEDURES Final Resul t documented in this encounter Visit Diagnoses Diagnosis Tuberculosis screening Screening examination for pulmonary tuberculosis documented in this encounter Care Teams Medical Scientist Relationship Specialty Start [place] [address] [address] [address] PCP - General Family Medicine 02/21/19 Roya Andre PA [address] [place] [address] [address] Physician House Parent Orthopedic Surgery 04/09/22 Alina Higginbotham, NEUROLOGICAL SURGEON 620 [facility] [address] Sales Producer Infectious Diseases 10/08/22 documented as of this encounter
--- OUTSIDE RECORDS SUMMARY | 2024-08-09 23:29 | XMS_ITS | Encounter Summary ---
Author Organization [facility] Address [address] [facility] [address] [place] [address] Care Team Providers Care Circuit Board Drafter Name Role Phone Cassius Ortega NP Primary Care Provider Roya Andre Unavailable [phone] Reason for Visit * Reason Comments Follow-up Encounter Details Date Type Department Care Team (Late st Contact Info) Description 11/06/2022 2:15 PM CDT Office Visit Shiro Lead Warehouse Associate [address] [address] Charly Olson MD [address] [place] [address] [address] Mixed hyperlipidemia (Primary Dx); Primary hypertension Social History Tobacco Use Types [...] on file 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 Gender Identity Not on file Sexual Orientation Not on file 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 documented as of this encounter Last Filed Vital Signs Vital Sign Reading Time Taken Comments Blood Pressure 118/78 11/06/2022 2:09 PM CDT Pulse 88 11/06/2022 2:09 PM CDT Temperature - - Respiratory Rate 16 11/06/2022 2:09 PM CDT Oxygen Saturation 96% 11/06/2022 2:09 PM CDT Inhaled Oxygen Concentration - - Weight 100.2 kg (221 lb) 11/06/2022 2:09 PM CDT Height 163.8 cm (5' 4.5 ) 11/06/2022 2:09 PM CDT Body Mass Index 37.35 11/06/2022 2:09 PM CDT documented in this encounter Progress Notes * Charly Olson MD - 11/06/2022 2:15 PM CDT Cardiology note Reason for Office Visit: Chief Complaint Patient presents with Follow-up History of Present Illness: Deejay Paz is a 47 y.o. female seen in follow up for HTN and Hyperlipidemia. She is intoleranty of statins with diffuse myalgia. She recently had right rotator cuff repair. Stress Echo on 05/09/20 was normal. 11/06/22:Doing well. Recovered for Covid. She had increase in LFT's with Covid , so PSK9 inhibitor onhold. 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 Thyroid disease Review of systems: Review [...] Partners: Male control/protection: Tubal Ligation Alcohol Use: Not At Risk Frequency of Alcohol Consumption: Monthly or less Average Number of Drinks: 1 or 2 Frequency of Binge Drinking: Less than monthly Allergies Allergen Reactions Cefazolin Blisters and Redness Yqugeaf-Tcj-Ojb Reductase Inhibitors Muscle pain and Joint pain Medications: Current Outpatient Medications Medication Sig Dispense Refill citalopram (CeleXA) 40 mg tablet TAKE 1 TABLET BY MOUTH EVERY DAY IN THE MORNING 90 tablet 1 levothyroxine (SYNTHROID) 175 mcg tablet TAKE 1 TABLET BY MOUTH EVERY DAY 90 tablet 1 losartan (COZAAR) 100 mg tablet TAKE 1 TABLET BY MOUTH EVERY DAY 90 tablet 1 alirocumab 150 mg/mL pen injector Inject 150 mg under the skin every 14 (fourteen) days (Patient not taking: Reported on 11/06/2022) 6 mL 1 ascorbic acid (VITAMIN C) 500 mg tablet,chewable Take 1 tablet/chew tab (500 mg total) by mouth 2 (two) times a day 60 tablet/chew tab 0 cholecalciferol (VITAMIN D-3) 2000 unit capsule Take 1 capsule (2,000 Units total) by mouth daily (Patient not taking: Reported on 05/08/2022) 30 capsule 0 evolocumab (REPATHA) syringe syringe Inject 1 mL (140 mg total) under the skin every 14 (fourteen) days (Patient not taking: Reported on 11/06/2022) 6 mL 1 ondansetron (ZOFRAN) 4 mg tablet Take 1 tablet (4 mg total) by mouth every 6 (six) hours as needed for nausea or vomiting (Patient not taking: Reported on 05/28/2022) 30 tablet 1 oxyCODONE-acetaminophen (PERCOCET) 5-325 mg per tablet Take 1-2 tablets every 4- 6 hours as needed for pain (Patient not taking: Reported on 11/06/2022) 30 tablet 0 senna-docusate (PERICOLACE) 8.6-50 mg 1-2 times daily as needed for constipation (Patient not taking: Reported on 05/08/2022) 30 tablet 1 No current facility-administered medications for this visit. Vital Signs: Vitals BP 118/78 (BP Location: Left arm, Patient Position: Sitting) Pulse 88 Resp 16 Ht 163.8 cm (5' 4.5 ) Wt 100.2 kg (221 lb) LMP 10/23/2019 SpO2 96% BMI 37.35 kg/m?? Vitals: 11/06/22 1409 BP: 118/78 Pulse: 88 Resp: 16 SpO2: 96% Wt Readings from Last 3 Encounters: 11/06/22 100.2 kg (221 lb) 10/08/22 100.2 kg (221 lb) 07/03/22 103.5 kg (228 lb 3.2 oz) Physical Exam: Physical Exam Vitals reviewed. Constitutional: Appearance: Normal appearance. HENT: [...] LABALBU Lab Results Component Value Date CHOL 238 (H) 03/26/2022 TRIG 247 (H) 03/26/2022 HDL 41 03/26/2022 LDL 163 (H) 04/06/2014 Lab Results Component Value Date TSH 0.52 10/08/2022 T3FREE 3.00 04/05/2013 FREET4 1.36 10/27/2021 Testing: No results found. No results found for this or any previous visit.] CARDIOGRAPHICS: Impression and Plan: Diagnoses and all orders for this visit: Mixed hyperlipidemia (Primary) Assessment & Plan: Resume Repatha. Check labs including LFTs in 3 months. Primary hypertension Assessment & Plan: Normal BP, Continue losartan. DICTATION DISCLAIMER: This note is transcribed using the Time Warden direct voice recognition system without human retail advisor. In an effort to expedite patient care, this note has not been adjusted for typographical, grammatical, and syntax by a trained front office medical assistant. Portions of this note have been copied from the medical record, but edited appropriately to accurately reflect the patient's current clinical state. Thank you for the consult. We will be happy to follow in this patient's care. MARTELL Campbell@3:15 PM Cc:Cassius Ortega NP documented in this encounter Miscellaneous Notes * Assessment & Plan Note - Charly Olson MD - 11/06/2022 3:14 PM CDT Associated Problem(s): Hyperlipidemia Resume Repatha. Check labs including LFTs in 3 months. * Assessment & Plan Note - Charly Olson MD - 11/06/2022 3:14 PM CDT Associated Problem(s): Primary hypertension Normal BP, Continue losartan. documented in this encounter Plan of Treatment Not on file documented as of this encounter Visit Diagnoses Diagnosis Mixed hyperlipidemia- Primary Primary hypertension Unspecified essential hypertension documented in this encounter Care Teams Circuit Board Drafter Relationship Specialty [place] [address] [address] PCP - General Family Medicine 02/21/19 Roya Andre PA [address] [place] [address] [address] [address] Physician Music Mixer Orthopedic Surgery 04/09/22 Alina Higginbotham, CAMPAIGN MARKETING SPECIALIST [address] [facility] [address] Glass Products Inspector Infectious Diseases 10/08/22 documented as of this encounter
--- OUTSIDE RECORDS SUMMARY | 2024-08-09 23:29 | XMS_ITS | Encounter Summary ---
Author Organization [facility] Address [address] [address] Care Team Providers Care Batch Roller Operator Name Role Phone Cassius Ortega NP Primary Care Provider Roya Andre Unavailable [phone] Reason for Visit * Reason Comments Follow-up Encounter Details Date Type Department Care Team (Latest Contact Info) Description 07/03/2022 1:45 PM JUNIOR LOAN PROCESSOR Office Visit [facility] Orthopedics and Sports Medicine [address] [facility] [address] [place] [id number] Roya Andre PA [address] [place] [address] [address] [place] [address] Aftercare following surgery of the musculoskeletal system [...] on file Legal Sex Female 1:09 AM JUNIOR 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 PROCESSOR Gender Identity Not on file Sexual Orientation Not on file 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 documented as of this encounter Last Filed Vital Signs Vital Sign Reading Time Taken Comments Blood Pressure 136/88 07/03/2022 1:45 PM JUNIOR LOAN PROCESSOR Pulse 73 07/03/2022 1:45 PM JUNIOR LOAN PROCESSOR Temperature - - Respiratory Rate - - Oxygen Saturation - - Inhaled Oxygen Concentration - - Weight 103.5 kg (228 lb 3.2 oz) 07/03/2022 1:45 PM JUNIOR LOAN PROCESSOR Height 165.1 cm (5' 5 ) 07/03/2022 1:45 PM JUNIOR LOAN PROCESSOR Body Mass Index 37.97 07/03/2022 1:45 PM JUNIOR LOAN PROCESSOR documented in this encounter Progress Notes * Roya Andre PA - 07/03/2022 1:45 PM CST Images from the original note were not included. Post-Op Visit Note HPI: Patient is 3 mos s/p right shoulder arthroscopy with subacromial decompression, distal clavicle excision, subpec biceps tenodesis, and rotator cuff debridement. She has been completing outpatient PT at [facility] in [facility] and is making great functional improvement. She denies any pain. She is back to full work duties. She overall is happy with current ROM and function. Vital signs: height is 165.1 cm (5' 5 ) and weight is 103.5 kg (228 lb 3.2 oz). Her blood pressure is 136/88 andher pulse is 73. Exam: Well approximated healing post operative portal holes. No active erythema, draining, or signs of infection present. Neurovascular status is intact. Full AROM of elbow, wrist and hand. Near full AROM of shoulder when compared bilaterally (limitations functional IR, although improving) Strength 5-/5 ER; 5/5 IR; 5-/5 flexion and scaption; 4+/5 supraspinatus Assessment: Diagnosis Plan 1. Aftercare following surgery of the musculoskeletal system 2. S/P arthroscopy of right shoulder Plan: Discussed with patient and reviewed ongoing expectations. Post surgical recommendations and precautions reviewed. The patient understands that continuing their prescribed physical therapy exercises is a necessary part of recovery and will help them regain functional use of the extremity. They will finish remaining outpatient physical therapy and continue advancing activities as tolerated and HEP. Follow up in prn. She was advised to contact us sooner if any worsening symptoms or concerns. Questions answered and patient expressed understanding of plan. Roya Andre PA-C OR LOAN PROCESSOR documented in this encounter Plan of Treatment Not on file documented as of this encounter Visit Diagnoses Diagnosis Aftercare following surgery of the musculoskeletal system- Primary Aftercare following surgery of the musculoskeletal system, NEC S/P arthroscopy of right shoulder documented in this encounter Care Teams Batch Roller Operator Relationship Specialty [place] [address] [address] [address] PCP - General Family Medicine 02/21/19 Roya Andre PA [address] [place] [address] [address], [place] [address] Physician Shoe Lay Out Planner Orthopedic Surgery 04/09/22 documented as of this encounter
--- OUTSIDE RECORDS SUMMARY | 2024-08-09 23:30 | XMS_ITS | Encounter Summary ---
Author Organization [facility] Address [address] [facility] [address] [place] [address] Care Team Providers Care Ground Water Contractor Name Role Phone Cassius Ortega NP Primary Care Provider [phone] Reason for Visit * Reason Onset Date Comments Surgical Clearance 04/01/2022 Encounter Details Date Type Department Care Team (Late st Contact Info) Description 04/01/2022 Telephone [facility] Orthopedics and Sports Medicine [address] [place] [address] [address], [place] [address] Allison Harris MA Surgical Clearance Social History Tobacco Use Types Packs/Day Years Used Date Smoking Tobacco: Never Smokeless Tobacco: Never Alcohol Use Standard Drinks/Week Comments Yes 0 (1 standard drink = 0.6 oz pur e alcohol) socially AUDIT-C Answer Date Recorded Q1: How often do you have a drink containing alc ohol? 2-4 times a month 03/31/2022 Q2: How many drinks containi ng alcohol do you have on a typical day when you are drinking? 1 or 2 03/31/2022 Q3: How often do you have si x or more drinks on one occasion? 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 Olson. Letter sent through [employer] * Telephone Encounter - Allison Harris MA - 04/01/2022 2:08 PM CDT Called and spoke with Kevin @ PCP office in regards to PCP clearance. She is sending message back to the clinical team and someone from their office will be in contact with me. * Telephone Encounter - Allison Harris MA - 04/01/2022 11:27 AM CDT Patient has been cleared for surgery by Pulmonology. Clearance scanned into media. Patient has been cleared for surgery by Cardiology. Letter sent through [employer]. documented in this encounter Plan of Treatment Not on file documented as of this encounter Visit Diagnoses Not on filedocumented in this encounter Care Teams Ground Water Contractor Relationship Specialty [place] [address] [address] [facility] [address] [address] PCP - General Family Medicine 02/21/19 documented as of this encounter
--- OUTSIDE RECORDS SUMMARY | 2024-08-09 23:30 | XMS_ITS | Encounter Summary ---
Author Organization [facility] Healthcare Address [address] [place] [address] Care Team Providers Care Shrinker Name Role Phone Cassius Ortega NP Primary Care Provider Roya Andre Unavailable [phone] Encounter Details Date Type Department Care Team (Late st Contact Info) Description 04/09/2022 9:43 AM CDT Anesthesia Event [facility] Operating Room [address] [place] [address] [place] [address] [facility] [address] [place] [address] Sunny Bullard MD [address] [place] [id number] Anesthesia Record Procedure Summary Procedure Name Responsible Anesthesiologist Anesthesia Start Time Anesthesia Stop Time Right shoulder arthroscopy, distal claviculectomy including distal articular surface, decompression of subacromial space with partial acromioplasty with coracoacromial release, and subpec biceps tenodesis (Right) Katy Tran MD 04/09/22 0943 04/09/22 1133 Events Date Time Event Comment 04/09/2022 0830 0943 An Start 0943 An Start Data 0944 In Room 0950 An Induction The patient was reevaluated immediately before moderate or deep sedation use and before anesthesia induction. 0951 An Intubation 0954 Anesthesia Ready [address] Tran gi ves break to Rigo Duque CRNA. ROLLER HAND remains immediately available. 1033 Proc Start 1035 Incision Start 1125 Quick Note 1128 Proc Fin 1132 An Extubation 1132 Out of Room 1132 an stop data 1133 An Stop Meds Name Total midazolam 2 mg fentaNYL 100 mcg propofol 200 mg lidocaine (cardiac) syringe 2 % 100 mg succinylcholine 120 mg ePHEDrine 15 mg ondansetron 4 mg EPINEPHrine 1:200,000-bupivacaine 0.25 % 20 mL tranexamic acid (CYKLOKAPRON) 2,000 mg i n sodium chloride 0.9% 100 mL 2,000 mg diphenhydrAMINE 12.5 mg dexamethasone 10 mg/mL 8 mg esmolol 50 mg famotidine (PEPCID) injection 20 mg 20 m g phenylephrine (IVAN-SYNEPHRIN E) 25,000 mcg in sodium chloride 0.9% 250 mL (100 mcg/mL) infusion 1.52 mg Lactated Ringer's (LR) infusion 1,000 mL * Agents Name O2 Air Sevoflurane Inspired Sevoflurane * Blood No blood administrations on file. Lines, Drains, and Airways Type Details Placement Removal RETIRED Surgical Site 12/28/19; 922; Abdomen; 07/04/24 (Retired LDA, Removed/Completed by [facility] with LDA Utility); 1213 (Retired LDA, Removed/Completed by [facility] with LDA Utility) 12/28/19922 by Arian Vizcaino RN 07/04/24 1213 by Discharge Provider, Automatic Peripheral IV Placement Date: 04/09/22; Placement Time: 826; Orientation: Left, Posterior; Location: Wrist; Site Prep: Chlorhexidine; Insertion Attempts: 1; Patient Tolerance: Tolerated well; Removal Date: 04/09/22; Removal Time: 1416; Removal Reason: Discharge 04/09/22826 by Bree Lamb, ELTON 04/09/221416 by Bree Lamb, RN PNB catheter Placement Date: 04/09/22; Placement Time: 925 (created via procedure documentation); Inserted by: Katy Tran MD; Pt Tolerance: brachial plexus - interscalene; Removal Date: Injectable, Topical, None; Removal Time: Tolerated well; 08/04/24; 0058 (not present on arrival) 04/09/22 09 by Katy Tran MD 08/04/24 0058 by Daysi Stinson RN ETT Placement Date: 04/09/22; Placement Time: 1011 (created via procedure documentation); Mask Ventilation: 0; Technique: Direct laryngoscopy; Type: ETT - single; Single Lumen Tube Size: 7 mm; Cuffed: Yes; Laryngoscope: Ortega; Blade Size: 2; Grade View: Grade IIa; Insertion Attempts: 1; Placement Verification: Auscultation, Capnometry; Removal Date: 04/09/22; Removal Time: 1132 04/09/22 1011 by Bethany Duque, ROLLER HAND 04/09/22 1132 by Katy Tran MD RETIRED Surgical Site 04/09/22; 1038; Right; Shoulder; 07/04/24 (Retired LDA, Removed/Completed by [facility] with LDA Utility); 1213 (Retired LDA, Removed/Completed by [facility] with LDA Utility) 04/09/22 1038 by Gladys Carlson RN 07/04/24 1213 by Discharge Provider, Automatic documented in this encounter Social History Tobacco Use Types Packs/Day Years [...] on file Legal Sex Female 1:09 AM [employer] Gender Identity Not on file Sexual Orientation Not on file 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 documented as of this encounter OR Notes * Anesthesia Postprocedure Evaluation - Katy Tran MD - 04/09/2022 3:34 PM CDT Patient: Deejay Paz Procedure Summary Date: 04/09/22 Room / Location: [address] OPERATING ROOM Anesthesia Start: 942 Anesthesia Stop: 1132 Procedure: Right shoulder arthroscopy, distal claviculectomy including distal articular surface, decompression of subacromial space with partial acromioplasty with coracoacromial release, and subpec biceps tenodesis (Right) Diagnosis: Impingement syndrome of right shoulder Biceps tendinitis on right Arthritis of right acromioclavicular joint Nontraumatic incomplete tear of right rotator cuff (Impingement syndrome of right shoulder [M75.41]) (Biceps tendinitis on right [M75.21]) (Arthritis of right acromioclavicular joint [M19.011]) (Nontraumatic incomplete tear of right rotator cuff [M75.111]) Providers: Cuate Mcmullen MD Responsible Provider: Katy Tran MD Anesthesia Type: general, regional for postop pain per surgeon request, PNB - continuous catheter ASA Status: 3 Anesthesia Type: general, regional for postop pain per surgeon request, PNB - continuous catheter Last vitals BP 110/61 Pulse 77 Temp 36.3 ??C (97.3 ??F) (Temporal) Resp 18 SpO2 96% Anesthesia Post Evaluation Patient location during evaluation: PACU Patient participation: complete - patient participated Level of consciousness: fully awake Pain management: satisfactory to patient Airway patency: adequate Cardiovascular status: acceptable Respiratory status: acceptable Hydration status: acceptable Pt is: normothermic Nausea/Vomiting status: none No notable events documented. * Anesthesia Procedure Notes - Bethany Duque CRNA - 04/09/2022 10:11 AM CDTAssociated Order(s): Airway Airway Patient location: OR Urgency: elective Indications for airway management: anesthesia Difficult airway: no Staff: Placed by: ROLLER HAND: Bethany Duque CRNA Emergent airway documentation: Risks and benefits discussed: yes Consent obtained: yes Consent given by: patient Airway prep: Preoxygenated: yes Patient position: sniffing Mask difficulty assessment: 0 - not attempted Spontaneous ventilation during airway: absent Sedation level during airway: GA Final airway details: Final airway type: endotracheal airway Tube type: ETT ETT size: 7.0 mm Cuffed: yes Technique used for successful ETT placement: direct laryngoscopy Blade type: Ortega Blade size: 2 Cormack-Lehane (direct): grade IIa - partial view of glottis Cuff volume: 7 mL Cuff inflated with: air ETT to lips: 21 cm Placement verified by: auscultation and CO2 detection Airway secured with: silk tape Number of attempts: 1no * Anesthesia Procedure Notes - Katy Tran MD - 04/09/2022 9:26 AM CDTAssociated Order(s): Peripheral Block Peripheral Block Patient location during procedure: block room End time: 04/09/2022 9:20 AM Reason for block: post-op pain management per surgeon request Ultrasound image in chart or stored: yes Block type: catheter continuous infusion Laterality: right Block type: brachial plexus - interscalene Staff: Placed by: Anesthesiologist: Katy Tran MD Procedure prep: Preprocedure checklist: patient identified, procedure contraindications assessed, site marked, procedure consent, surgical consent, IV checked, risks, benefits and alternatives discussed, monitors and equipment checked and timeout performed Patient position: supine and head of bed elevated Procedure performed while patient: sedate with meaningful contact Monitoring: ECG, oximetry, blood pressure and capnography Supplemental O2: nasal cannula Prep solution: chlorhexidine/alcohol PPE: provider hat/mask, sterile gloves, sterile drape and sterile probe cover and gel Skin infiltrated with lidocaine 1%: yes Peripheral nerve block: Technique: ultrasound guided Needle type: insulated Needle gauge: 18 G Needle length: 100 mm Injection assessment: injection made incrementally with constant monitoring, local visualized surrounding nerve on ultrasound, negative aspiration for heme, no paresthesias noted and see flowsheet for medication details Assessment: Block success: full evaluation pending Events: patient tolerated procedure well with no complications * Anesthesia Preprocedure Evaluation - Katy Tran MD - 04/09/2022 8:16 AM CDT Images from the original note were not included. Anesthesia Evaluation Deejay Paz is a 47 y.o. female Procedure(s): Right shoulder arthroscopy, distal claviculectomy including distal articular surface, decompressionof subacromial space with partial acromioplasty with coracoacromial release, rotator cuff repair and subpec biceps tenodesis arthroscopy equipment, Montalvo/Nephew vapor, Breg Sling shot 2 sling with abd uction pillow, NMES, Montalvo/Nephew anchors, Spider, Arthrex anchors, beach chair, polar care, bicepstenodesis set Arthrex on hold (subpec) Art/Arabella conf 04/02 BS) Pre-Op Diagnosis Codes: * Impingement syndrome of right shoulder [M75.41] * Biceps tendinitis on right [M75.21] * Arthritis of right acromioclavicular joint [M19.011] * Nontraumatic incomplete tear of right rotator cuff [M75.111] HISTORY Past Medical History Information obtained from: patient and chart. Cardiovascular + Hypertension Respiratory + Sleep apnea (SHREYA) Prescribed device: CPAP. Musculoskeletal/Pain + Osteoarthritis Endocrine / Other + Thyroid disease - hypothyroidism + Obesity (BMI >30) Day of Surgery assessments + Possibility of assessed - ruled out by patient's provided history. Patient Active Problem List Diagnosis ??? Adiposity ??? Vitamin D deficiency ??? Impaired fasting glucose ??? Hyperlipidemia ??? Hypothyroidism ??? Right upper quadrant abdominal pain ??? Anxiety ??? BMI 37.0-37.9, adult ??? Bloating ??? Benign neoplasm of skin of face ??? Carpal tunnel syndrome ??? Spinal stenosis of lumbar region ??? Arthralgia of shoulder ??? Nontraumatic incomplete tear of right rotator cuff ??? Arthritis of right acromioclavicular joint ??? Impingement syndrome of right shoulder ??? Biceps tendinitis of right upper extremity ??? Hypertension ??? Urinary frequency ??? Achilles tendinitis of left lower extremity ??? Moderate obstructive sleep apnea Past Medical History: Diagnosis Date ??? Delayed emergence from general anesthesia slow to wake up ??? Hypertension ??? Interstitial lung disease (CMS/HCC) (HCC) ??? SHREYA (obstructive sleep apnea) 05/07/2021 ??? PONV (postoperative nausea and vomiting) ??? 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 Thyroid disease Past Surgical History: Procedure Laterality Date ??? BREAST BIOPSY NEG LEFT ??? CARPAL TUNNEL RELEASE Bilateral with ulnar release ??? SECTION ??? DILATION AND CURETTAGE OF UTERUS 2005 D&C ??? HYSTERECTOMY ??? LUMBAR SPINE SURGERY 2013 herniated disc l4-5: lumbar spine surgery Dr. Burkett ??? TUBAL LIGATION 2008 Bilateral tubal ligation OB History 3 Para 2 Term 2 AB 1 Living 2 SAB 1 IAB Ectopic Multiple Live Births 2 Allergies Allergen Reactions ??? Cefazolin Blisters and Redness ??? Uqserwh-Ilp-Rap Reductase Inhibitors Muscle pain and Joint pain Med List Status: Nurse Complete Set By: Kelly Moncada RN at 03/31/2022 4:25 PM Taking? Last Dose Start Date End Date Provider alirocumab (Praluent Pen) 150 mg/mL pen injector -- 03/27/22 -- Charly Olson MD Inject 150 mg under the skin every 14 (fourteen) days Notes: Replaces Repatha citalopram (CeleXA) 40 mg tablet -- 03/27/22 -- Charly Olson MD TAKE 1 TABLET BY MOUTH EVERY MORNING levothyroxine (SYNTHROID) 175 mcg tablet -- 03/27/22 -- Charly Olson MD TAKE 1 TABLET BY MOUTH EVERY DAY losartan (COZAAR) 100 mg tablet -- 03/27/22 -- Charly Olson MD TAKE 1 TABLET BY MOUTH EVERY DAY Current Facility-Administered Medications: ??? acetaminophen (TYLENOL) tablet 1,000 mg, 1,000 mg, oral, Once ??? benzoyl peroxide 5 % external liquid, , topical, Once ??? Carrier Fluids for Secondary Infusion - 0.9% Sodium Chloride, 30 mL, intravenous, PRN ??? celecoxib (CeleBREX) capsule 200 mg, 200 mg, oral, Once ??? clindamycin (CLEOCIN) 900 mg/50 mL in dextrose 5% (premix) 900 mg, 900 mg, intravenous, Once ??? EPINEPHrine 3 mg in Lactated Ringer's (LR) 3,000 mL irrigation solution, , irrigation, Once ??? EPINEPHrine 3 mg in Lactated Ringer's (LR) 3,000 mL irrigation solution, , irrigation, Once ??? Lactated Ringer's (LR) infusion, 30 mL/hr, intravenous, Continuous ??? scopolamine patch 72 hour 1 patch, 1 patch, transdermal, Once ??? sodium chloride 0.9% flush 0.5-20 mL, 0.5-20 mL, intra-catheter, PRN ??? tranexamic acid (CYKLOKAPRON) 2,000 mg in sodium chloride 0.9% 100 mL, 15 mg/kg, intravenous, Once ??? vancomycin 1500 mg/250 mL in sodium chloride 0.9% (premix) 1,500 mg, 1,500 mg, intravenous, Once Social History Tobacco Use Smoking Status Never Smokeless Tobacco Never Alcohol Use: Heavy Drinker ??? Frequency of Alcohol Consumption: 2-4 times a month ??? Average Number of Drinks: 1 or 2 ??? Frequency of Binge Drinking: Less than monthly Substance and Sexual Activity Drug Use No Family History Problem Relation Age of Onset ??? Lung cancer Father 39 Cancer -lung; Cause of : Cancer -lung/Cancer, lung; Cause of : Cancer, lung ??? Hypertension Mother Hypertension; ??? Hypothyroidism Mother hypothyroidism; ??? Hyperlipidemia Mother Hyperlipidemia; ??? Thyroid disease Mother Thyroid disorder; ??? Hypertension Other Family history of Hypertension; ??? Diabetes type II Other Family history of Diabetes -Type II; ??? Coronary artery disease Other Family history of Coronary artery disease; ??? Stroke Other Family history of Stroke; ??? Other Sister hpothyroidism; ??? Hyperlipidemia Brother Hyperlipidemia; ??? Skin cancer Sister Cancer, skin; There were no vitals filed for this visit. PT: No results found for requested labs within last 720 hours. INR: No results found for requested labs within last 720 hours. APTT: No results found for requested labs within last 720 hours. Hgb A1C: No results found for requested labs within last 720 hours. CBC RBC: No results found for requested labs within last 720 hours. RDW: No results found for requested labs within last 720 hours. MCHC: No results found for requested labs within last 720 hours. MCH: No results found for requested labs within last 720 hours. MCV: No results found for requested labs within last 720 hours. Hct: No results found for requested labs within last 720 hours. Hgb: No results found for requested labs within last 720 hours. WBC: No results found for requested labs within last 720 hours. MPV: No results found for requested labs within last 720 hours. Platelets: No results found for requested labs within last 720 hours. RDW CV: No results found for requested labs within last 720 hours. RDW Sd: No results found for requested labs within last 720 hours. BMP Glucose: No results found for requested labs within last 720 hours. Calcium: No results found for requested labs within last 720 hours. Sodium: No results found for requested labs within last 720 hours. Potassium: No results found for requested labs within last 720 hours. CO2: No results found for requested labs within last 720 hours. Chloride: No results found for requested labs within last 720 hours. BUN: No results found for requested labs within last 720 hours. Creatinine: No results found for requested labs within last 720 hours. STOP-Bang Total Score: 4 DOS Physical Exam Medical history, medications, and allergies reviewed. Attestation: This PAT evaluation 04/09/2022. Airway Exam: Mallampati: II Cervical ROM: FROM TM distance: >4 Cardiovascular Exam: Rate: regular Rhythm: regular Pulmonary Exam: LCTA, bilat Current state: Patient's current state is cooperative. Anesthesia Plan ASA 3 My patient is approved for the Anesthesia Controlled Medication protocol when under care of a ROLLER HAND Planned anesthesia: General, regional for postop pain per surgeon request and PNB - continuous catheter Team communication plan: oral ET tube Upper extremity: brachial plexus - interscalene Induction: Induction: intravenous. Postoperative Plan: Postoperative administration opioids intended. No postoperative mechanical ventilation intended. Informed Consent: Discussed plan with attending. Anesthesia plan and risks discussed with patient. Consent and Attending signature: I and/or my designee have discussed the anesthesia plan, benefits, possible alternatives, parental presence at time of induction (if indicated), and clinically relevant risks that may include dental injury, unintentional awareness, and/or other complications. The patient and/or parent/legal guardian understand, and agree to proceed. All questions answered. documented in this encounter Plan of Treatment Not on file documented as of this encounter Procedures Procedure Name Priority Date/Time Associated Diagnosis Comments [place] AN ELECTIVE ENDOTRACHEAL AIRWAY Routine 04/09/2022 10:11 AM CDT ANESTHESIA PERIPHERAL BLOCK Routine 04/09/2022 9:26 AM CDT documented in this encounter Results * IL AN ELECTIVE ENDOTRACHEAL AIRWAY (04/09/2022 10:11 AM CDT) Narrative Bethany Duque CRNA - 04/09/2022 10:11 AM CDT Bethany Duque CRNA ? 04/09/2022 10:11 AM Airway Patient location: OR Urgency: elective Indications for airway management: anesthesia Difficult airway: no Staff: Placed by: ROLLER HAND: Bethany Duque CRNA Emergent airway documentation: Risks and benefits discussed: yes Consent obtained: yes Consent given by: patient Airway prep: Preoxygenated: yes Patient position: sniffing Mask difficulty assessment: 0 - not attempted Spontaneous ventilation during airway: absent Sedation level during airway: GA Final airway details: Final airway type: endotracheal airway Tube type: ETT ETT size: 7.0 mm Cuffed: yes Technique used for successful ETT placement: direct laryngoscopy Blade type: Ortega Blade size: 2 Cormack-Lehane (direct): grade IIa - partial view of glottis Cuff volume: 7 mL Cuff inflated with: air ETT to lips: 21 cm Placement verified by: auscultation and CO2 detection Airway secured with: silk tape Number of attempts: 1no us Katy Tran MD ANESTHESIA ORDERABLES Fi nal Result * BW IP ANE LDA PERIPHERAL NERVE CATHETER (04/09/2022 9:26 AM CDT) Narrative Katy Tran MD - 04/09/2022 9:26 AM CDT Katy Tran MD ? 04/09/2022 ??9:26 AM Peripheral Block Patient location during procedure: block room End time: 04/09/2022 9:20 AM Reason for block: post-op pain management per surgeon request Ultrasound image in chart or stored: yes Block type: catheter continuous infusion Laterality: right Block type: brachial plexus - interscalene Staff: Placed by: Anesthesiologist: Katy Tran MD Procedure prep: Preprocedure checklist: patient identified, procedure contraindications assessed, site marked, procedure consent, surgical consent, IV checked, risks, benefits and alternatives discussed, monitors and equipment checked and timeout performed Patient position: supine and head of bed elevated Procedure performed while patient: sedate with meaningful contact Monitoring: ECG, oximetry, blood pressure and capnography Supplemental O2: nasal cannula Prep solution: chlorhexidine/alcohol PPE: provider hat/mask, sterile gloves, sterile drape and sterile probe cover and gel Skin infiltrated with lidocaine 1%: yes Peripheral nerve block: Technique: ultrasound guided Needle type: insulated Needle gauge: 18 G Needle length: 100 mm Injection assessment: injection made incrementally with constant monitoring, local visualized surrounding nerve on ultrasound, negative aspiration for heme, no paresthesias noted and see flowsheet for medication details Assessment: Block success: full evaluation pending Events: patient tolerated procedure well with no complications us Katy Tran MD ANESTHESIA ORDERABLES Fi nal Result documented in this encounter Visit Diagnoses Not on filedocumented in this encounter Administered Medications Inactive Administered Medications - up to 3 most recent administrations Medication Order MAR Action Action Date Dose Rate Site bupivacaine-EPINEPHrine (MARCAINE with EPI) 0.25 %-1:200,000 preservative free injection other, As needed, Starting on Jacquie 04/09/22 at 0915, Anesthesia Intra-op Given 04/09/2022 9:15 AM CDT 20 mL dexAMETHasone (DECADRON) injection solution intravenous, Administer over 2 Minutes, As needed, Starting on Jacquie 04/09/22 at 1008, Anesthesia Intra-op Given 04/09/2022 10:08 AM CDT 8 mg diphenhydrAMINE (BENADRYL) injection intravenous, Administer over 2 Minutes, As needed, Starting on Jacquie 04/09/22 at 1008, Anesthesia Intra-op Given 04/09/2022 10:08 AM CDT 12.5 mg ePHEDrine injection intravenous, Administer over 5 Minutes, As needed, Starting on Jacquie 04/09/22 at 1036, Anesthesia Intra-op Given 04/09/2022 10:51 AM CDT 10 mg Given 04/09/2022 10:36 AM CDT 5 mg esmoloL (BREVIBLOC) injection intravenous, Administer over 1 Minutes, As needed, Starting on Jacquie 04/09/22 at 0950, Anesthesia Intra-op Given 04/09/2022 9:50 AM CDT 50 mg famotidine (PEPCID) injection 20 mg 20 mg, intravenous, Administer over 2 Minutes, Once, On Jacquie 04/09/22 at 1045, For 1 dose, Intra-Op Given 04/09/2022 10:16 AM CDT 20 mg fentaNYL (SUBLIMAZE) preservative free injection intravenous, As needed, Starting on Jacquie 04/09/22 at 0915, Anesthesia Intra-op Given 04/09/2022 9:15 AM CDT 100 mcg Lactated Ringer's (LR) infusion 30 mL/hr, intravenous, Continuous, Starting on Jacquie 04/09/22 at 0900, Pre-Op, Restarted 04/09/2022 9:43 AM CDT New Bag 04/09/2022 8:39 AM CDT 30 mL/hr 30 mL/hr lidocaine (XYLOCAINE) 20 mg/mL (2 %) preservative free injection intravenous, As needed, Starting on Jacquie 04/09/22 at 0950, Anesthesia Intra-op Given 04/09/2022 9:50 AM CDT 100 mg midazolam (VERSED) 1 mg/mL preservative free injection intravenous, Administer over 2 Minutes, As needed, Starting on Jacquie 04/09/22 at 0915, Anesthesia Intra-op Given 04/09/2022 9:15 AM CDT 2 mg ondansetron (ZOFRAN) injection intravenous, Administer over 2 Minutes, As needed, Starting on Jacquie 04/09/22 at 1122, Anesthesia Intra-op Given 04/09/2022 11:22 AM CDT 4 mg phenylephrine (IVAN-SYNEPHRINE) 25,000 mcg in sodium chloride 0.9% 250 mL (100 mcg/mL) infusion intravenous, Continuous PRN, Starting on Jacquie 04/09/22 at 1000, Anesthesia Intra-op New Bag 04/09/2022 10:00 AM CDT 0.5 mcg/kg/min 30.39 mL/hr propofoL (DIPRIVAN) 10 mg/mL IV intravenous, As needed, Starting on Jacquie 04/09/22 at 0950, Anesthesia Intra-op Given 04/09/2022 9:50 AM CDT 200 mg succinylcholine (ANECTINE) injection intravenous, As needed, Starting on Jacquie 04/09/22 at 0950, Anesthesia Intra-op Given 04/09/2022 9:50 AM CDT 120 mg tranexamic acid (CYKLOKAPRON) 2,000 mg in sodium chloride 0.9% 100 mL 2,000 mg (rounded from 1,525.5 mg = 15 mg/kg ? 101.7 kg), intravenous, Once, On Jacquie 04/09/22 at 0900, For 1 dose, Intra-Op, Administer at time of incision, Indications: Prophylaxis, SurgicalIndications:Prophylax is, Surgical New Bag 04/09/2022 10:06 AM CDT 2,000 mg documented in this encounter Care Teams Shrinker Relationship Specialty [place] [address] [address] [address] PCP - General Family Medicine 02/21/19 Roya Andre PA [address] [place] [address] DR CAMPOS [address] [place] [id number] Physician Corporate Administrator Orthopedic Surgery 04/09/22 documented as of this encounter
--- OUTSIDE RECORDS SUMMARY | 2024-08-09 23:30 | XMS_ITS | Encounter Summary ---
Author Organization [facility] Address [address] [facility] [address] [place] [address] Care Team Providers Care Lead Retail Sales Associate Name Role Phone Cassius Ortega NP Primary Care Provider [phone] Roya Andre Unavailable [phone] Encounter Details Date Type Department Care Team (Late st Contact Info) Description 04/09/2022 Telephone [facility] [address] [facility] [address] [place] [address] Daniele Morse MD [address] [place] [address] [address] [place] [address] Social History Tobacco Use Types Packs/Day Years [...] on file Legal Sex Female 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 * Telephone Encounter - Jv Mckeon - 04/09/2022 2:39 PM CDT Whitney from [facility] is requesting the next step for patient's after most recent sleep study. Isshe needing to be switched to a Bipap? Please advise. documented in this encounter Plan of Treatment Not on file documented as of this encounter Visit Diagnoses Not on filedocumented in this encounter Care Teams Lead Retail Sales Associate Relationship Specialty [place] [id number] [facility] [address] [address] PCP - General Family Medicine 02/21/19 Roya Andre PA [address] [place] [address] [facility] [address] [place] [address] Physician Head Sulfide Operator Orthopedic Surgery 04/09/22 documented as of this encounter
--- OUTSIDE RECORDS SUMMARY | 2024-08-09 23:30 | XMS_ITS | Encounter Summary ---
Author Organization [facility] Healthcare Address [address] [place] [address] Care Team Providers Care Vp Production Name Role Phone Cassius Ortega NP Primary Care Provider [phone] Roya Andre Unavailable [phone] Encounter Details Date Type Department Care Team (Latest Contact Info) Description 04/09/2022 7:53 AM CDT - 04/09/2022 2:33 PM CDT Hospital Encounter [facility] Operating Room [address] [place] [address] Cuate Mcmullen MD [address] [place] [address] [address] [place] [address] Discharge Disposition: Discharge to home or self [...] on file 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 Gender Identity Not on file Sexual Orientation Not on file 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 documented as of this encounter Last Filed Vital Signs Vital Sign Reading Time Taken Comments Blood Pressure 110/61 04/09/2022 1:28 PM CDT Pulse 77 04/09/2022 1:28 PM CDT Temperature 36.3 ??C (97.3 ??F) 04/09/2022 1 2:35 PM CDT Respiratory Rate 18 04/09/2022 1:28 PM CDT Oxygen Saturation 96% 04/09/2022 1:28 PM CDT Inhaled Oxygen Concentration - - Weight 101.3 kg (223 lb 5.2 oz) 04/09/2022 8:28 AM CDT Height 165.1 cm (5' 5 ) 04/09/2022 8:28 AM CDT Body Mass Index 37.16 04/09/2022 8:28 AM CDT documented in this encounter Discharge Diagnoses Diagnosis Incomplete rotator cuff tear or rupture of right shoulder, not specified as traumatic - INCOMPLETE ROTATOR CUFF TEAR OR RUPTURE OF RIGHT SHOULDER, NOT SPECIFIED TRAUMATIC Impingement syndrome of right shoulder - IMPINGEMENT SYNDROME OF RIGHT SHOULDER Bicipital tendinitis, right shoulder - BICIPITAL TENDINITIS, RIGHT SHOULDER Primary osteoarthritis, right shoulder - PRIMARY OSTEOARTHRITIS, RIGHT SHOULDER Other articular cartilage disorders, right shoulder - OTHER ARTICULAR CARTILAGE DISORDERS, RIGHT SHOULDER Essential (primary) hypertension - ESSENTIAL (PRIMARY) HYPERTENSION Unspecified essential hypertension Obstructive sleep apnea (adult) (pediatric) - OBSTRUCTIVE SLEEP APNEA (ADULT) (PEDIATRIC) Hypothyroidism, unspecified - HYPOTHYROIDISM, UNSPECIFIED Obesity, unspecified - OBESITY, UNSPECIFIED Body mass index (BMI) 37.0-37.9, adult - BODY MASS INDEX [BMI] 37.0-37.9, ADULT Other jail (current) drug therapy - OTHER SHELTER (CURRENT) DRUG THERAPY documented in this encounter Discharge Instructions * Attachments The following attachments cannot be sent through Care Everywhere. * General Anesthesia (Discharge Care) ([place]) * Ascorbic Acid (Vitamin C) (By mouth) ([place]) * Vitamin D (By mouth) ([place]) * Ondansetron (By mouth, Into the mouth) ([place]) * Oxycodone/Acetaminophen (By mouth) ([place]) * Senna (By mouth) ([place]) * Peripheral Nerve Block (Discharge Care) ([place]) documented in this encounter Medications at Time of Discharge alirocumab (Praluent Pen) 150 mg/mL pen injector Inject 150 mg under the skin every 14 (fourteen) days 6 mL 1 03/27/2022 2 ascorbic acid (VITAMIN C) 500 mg tablet,chewable Take 1 tablet/chew tab (500 mg total) by mouth 2 (two) times a day 60 tablet/chew tab 04/09/2022 3 cholecalciferol (VITAMIN D-3) 2000 unit capsule Take 1 capsule (2,000 Units total) by mouth daily 30 capsule 04/09/2022 3 citalopram (CeleXA) 40 mg tablet TAKE 1 TABLET BY MOUTH EVERY MORNING 90 tablet 03/27/2022 2 levothyroxine (SYNTHROID) 175 mcg tablet TAKE 1 TABLET BY MOUTH EVERY DAY 90 tablet 03/27/2022 2 losartan (COZAAR) 100 mg tablet TAKE 1 TABLET BY MOUTH EVERY DAY 90 tablet 1 03/27/2022 3 ondansetron (ZOFRAN) 4 mg tabletIndication s:Prevention [...] 04/09/2022 3 documented as of this encounter Ordered Prescriptions Prescription Sig Dispense Quantity Refills Last Filled Start Date End Date oxyCODONE-acetami nophen (PERCOCET) 5-325 mg per tabletIndications :Pain Take 1-2 tablets every 4-6 hours as needed for pain 30 tablet 04/09/2022 3 senna-docusate (PERICOLACE) 8.6-50 mg 1-2 times daily as needed for constipation 30 tablet 1 04/09/2022 3 ondansetron (ZOFRAN) 4 mg tabletIndications :Prevention of Post-Operative Nausea and Vomiting Take 1 tablet (4 mg total) by mouth every 6 (six) hours as needed for nausea or vomiting 30 tablet 1 04/09/2022 3 cholecalciferol (VITAMIN D-3) 2000 unit capsule Take 1 capsule (2,000 Units total) by mouth daily 30 capsule 04/09/2022 3 ascorbic acid (VITAMIN C) 500 mg tablet,chewable Take 1 tablet/chew tab (500 mg total) by mouth 2 (two) times a day 60 tablet/chew tab 04/09/2022 3 documented in this encounter Discharge Disposition Disposition Code Departure Means Destination Discharge to home or self care documented in this encounter H&P Notes * Cuate Mcmullen MD - 04/09/2022 8:26 AM CDT I have reviewed the H&P, examined the patient, and endorse the findings as written. Plan of Care : Based on the above findings, I consider Deejay Paz to be an acceptable risk for : Procedure(s): Right shoulder arthroscopy, distal claviculectomy including distal articular surface, decompressionof subacromial space with partial acromioplasty with coracoacromial release, rotator cuff repair and subpec biceps tenodesis arthroscopy equipment, Montalvo/Nephew vapor, Breg Sling shot 2 sling with abd uction pillow, NMES, Montalvo/Nephew anchors, Spider, Arthrex anchors, beach chair, polar care, bicepstenodesis set Arthrex on hold (subpec) Art/Arabella barth 04/02 BS) Source Note - Kelechi Gloria NP - 04/08/2022 4:17 PM CDT Images from the original note were not included. NEW PATIENT VISIT This patient has been reviewed and COVID-19 risk has been assessed. Based on our clinical judgement, we find it appropriate to see this patient in clinic today. Our staff performed proper precautionsand wore appropriate PPE when caring for this patient in office today. Both myself and the patient wore a mask throughout the visit. The patient understands current COVID-19 risks and wished to be seen today. Subjective CHIEF COMPLAINT She had concerns including Pain of the Right Shoulder. HISTORY OF PRESENT ILLNESS Patient chief complaint right shoulder pain going on for 4 years is gotten worse the last 3 months.Problem started with her activities of daily living. Pain is burning dull and achy moderate to severe she uses Voltaren gel every day Aleve rest makes her better and activity of daily makes it worse her pain is continuous she has had physical therapy steroid injections massage anti- inflammatories without relief she has been trying to put off surgery for over 2 years now her pain is keeps getting worse she like discuss surgical options. Infrastructure Consultant completed by using M*Modal Fluency Direct speaking software, therefore, transcriptionvariances may occur. Pain Assessment Pain Assessment: 0-10 Pain Score: 6 PAST MEDCIAL HISTORY She has a past medical history of Delayed emergence from general anesthesia, Hypertension, SHREYA (obstructive sleep apnea) (05/07/2021), PONV (postoperative nausea and vomiting), Post depression (2002), and Thyroid disease. She has no past medical history of Acute respiratory failure requiring reintubation ([facility]) ([facility]), Breast cancer ([facility]) ([facility]), History of chemotherapy, History of radiation therapy, Postoperative delirium, or Smoking. PAST SURGICAL HISTORY She has a past surgical history that includes Tubal ligation (2008); Breast biopsy; Lumbar spine surgery (2012); Dilation and curettage of uterus (2004); section (); and Hysterectomy. MEDICATIONS She has a current medication list which includes the following prescription(s): atorvastatin, citalopram, levothyroxine, losartan, albuterol hfa, and azithromycin. ALLERGIES She is allergic to cefazolin. SOCIAL HISTORY She reports that she has never smoked. She has never used smokeless tobacco. She reports current alcohol use. She reports that she does not use drugs. FAMILY HISTORY Her family history includes Coronary artery disease in an other family member; Diabetes type II in an other family member; Hyperlipidemia in her brother and mother; Hypertension in her mother and another family member; Hypothyroidism in her mother; Lung cancer (age of onset: 39) in her father; Other in her sister; Skin cancer in her sister; Stroke in an other family member; Thyroid disease in hermother. REVIEW OF SYSTEMS Review of Systems Constitutional: Negative for activity change, appetite change, chills and fever. HENT: Negative for congestion, dental problem, ear pain, hearing loss and voice change. Eyes: Negative for pain and visual disturbance. Respiratory: Positive for cough. Negative for apnea, chest tightness and shortness of breath. Cardiovascular: Negative for chest pain, palpitations and leg swelling. Gastrointestinal: Negative for blood in stool, constipation, diarrhea, nausea and vomiting. Endocrine: Negative for cold intolerance and heat intolerance. Genitourinary: Negative for difficulty urinating and hematuria. Skin: Negative for color change, rash and wound. Allergic/Immunologic: Negative for environmental allergies. Neurological: Negative for dizziness, syncope, numbness and headaches. Hematological: Negative for adenopathy. Does not bruise/bleed easily. Psychiatric/Behavioral: Negative for confusion. The patient is not nervous/anxious and is not hyperactive. Objective PHYSICAL EXAM BP (!) 129/1 Pulse 63 Ht 165.1 cm (5' 5 ) Wt 101.1 kg (222 lb 14.4 oz) LMP 10/23/2019 Comment: currently taking progesterone since November 2019- has breakthrough bleeding BMI 37.09 kg/m?? Right shoulder Inspection Erythema: absent Swelling: absent Skin temperature: normal AC joint deformity: absent Surgical scar/wound: absent. Palpation Tenderness is present. The patient has tenderness in the biceps tendon, acromioclavicular joint, aneterior shoulder and lateral shoulder area(s). Range of motion The patient has reduced range of motion of the right shoulder. The patient does not have pain with range of motion of the right shoulder. Active forward flexion: 150 degrees. Active external rotation at 0 degrees: 60 degrees. Active abduction: 160 degrees. Active adduction: 40 degrees. Stability Th patient has normal stability of the right shoulder. Strength The patient has 5/5 strength throughout the right shoulder. Shoulder abduction: 5/5 and painful External rotation 5/5 and pain free Supraspinatus: painful and 4/5 Bicep: 4/5 and painful Neurovascular The patient has normal vascular on the right side of her body. She has normal sensation on the right side of her body. Median: normal Radial: normal Ulnar: normal Tests Apprehension: negative Belly press: negative Cross arm: positive Hawkin's test: positive Impingement signs: positive Maicol's: positive Speed's: positive Comments: Severe tenderness bicipital groove Left shoulder The patient has normal inspection, palpation, range of motion, strength, and stability of the left shoulder. REVIEW OF X-RAYS/STUDIES/LABS XR Shoulder Right 2 or More Views Four views right shoulder show no fracture subluxation dislocation type 2 acromion AC joint arthritis COMPARISON: 09/03/2014 TECHNIQUE: Axial proton density SPAIR and T1; Coronal T2 fat sat, proton density, and proton density SPAIR; Sagittal T2. FINDINGS: Again noted is thickening and increased signal in the supraspinous tendon suggesting tendinosis or partial tear. The presence of fluid in the subacromial bursa suggest a tear. The subscapularis, teres minor tendons appear intact. The long head of the biceps is maintained in an anatomic location. No muscular atrophy is noted. No fluid is seen in the subacromial or subdeltoid bursa. Spurring of the acromioclavicular joint is seen. No obvious abnormality of the labral capsular complex is seen. IMPRESSION: 1. Tendinosis or partial tear of the supraspinatus tendon. 2. Osteoarthrosis of the acromioclavicular joint. Assessment Assessment/Plan Deejay was seen today for pain. Diagnoses and all orders for this visit: Right shoulder pain, unspecified chronicity - XR Shoulder Right 2 or More Views Pre-operative exam - XR Chest Pa Lateral 2 Views; Future - Erythrocyte sedimentation rate; Future - CRP (acute phase); Future - D-dimer, quantitative; Future Impingement syndrome of right shoulder Biceps tendinitis of right upper extremity Arthritis of right acromioclavicular joint Nontraumatic incomplete tear of right rotator cuff Procedures PLAN I discussed the nature of the patient's condition in the clinic today. We discussed arthroscopic rotator cuff repair rotation medical implant, distal clavicle excision, with subacromial decompression, sub Pec biceps tenodesis. Risks and benefits of the procedure were discussed the patient to include bleeding, infection, damage to surrounding structures including nerves and vessels, persistent stiffness, retear, and possible fracture. The patient understood these risks and agreed to proceed withsurgery as described above and informed consent was established in the office today. TARIK Strong MD Reviewed and no changes to surgical plan since patient was last evaluated and consent was established. Kelechi Gloria NP Cosigned by Cuate Mcmullen MD at 04/09/2022 8:26 AM CDT * Kelechi Gloria NP - 04/08/2022 4:17 PM CDT Images from the original note were not included. NEW PATIENT VISIT This patient has been reviewed and COVID-19 risk has been assessed. Based on our clinical judgement, we find it appropriate to see this patient in clinic today. Our staff performed proper precautionsand wore appropriate PPE when caring for this patient in office today. Both myself and the patient wore a mask throughout the visit. The patient understands current COVID-19 risks and wished to be seen today. Subjective CHIEF COMPLAINT She had concerns including Pain of the Right Shoulder. HISTORY OF PRESENT ILLNESS Patient chief complaint right shoulder pain going on for 4 years is gotten worse the last 3 months. Problem started with her activities of daily living. Pain is burning dull and achy moderate to severe she uses Voltaren gel every day Aleve rest makes her better and activity of daily makes it worseher pain is continuous she has had physical therapy steroid injections massage anti-inflammatories w ithout relief she has been trying to put off surgery for over 2 years now her pain is keeps gettingworse she like discuss surgical options. Infrastructure Consultant completed by using M*Modal Fluency Direct speaking software, therefore, transcriptionvariances may occur. Pain Assessment Pain Assessment: 0-10 Pain Score: 6 PAST MEDCIAL HISTORY She has a past medical history of Delayed emergence from general anesthesia, Hypertension, SHREYA (obstructive sleep apnea) (05/07/2021), PONV (postoperative nausea and vomiting), Post depression (2002), and Thyroid disease. She has no past medical history of Acute respiratory failure requiring reintubation ([facility]) ([facility]), Breast cancer ([facility]) ([facility]), History of chemotherapy, History of radiation therapy, Postoperative delirium, or Smoking. PAST SURGICAL HISTORY She has a past surgical history that includes Tubal ligation (2008); Breast biopsy; Lumbar spine surgery (2012); Dilation and curettage of uterus (2004); section (); and Hysterectomy. MEDICATIONS She has a current medication list which includes the following prescription(s): atorvastatin, citalopram, levothyroxine, losartan, albuterol hfa, and azithromycin. ALLERGIES She is allergic to cefazolin. SOCIAL HISTORY She reports that she has never smoked. She has never used smokeless tobacco. She reports current alcohol use. She reports that she does not use drugs. FAMILY HISTORY Her family history includes Coronary artery disease in an other family member; Diabetes type II in an other family member; Hyperlipidemia in her brother and mother; Hypertension in her mother and another family member; Hypothyroidism in her mother; Lung cancer (age of onset: 39) in her father; Other in her sister; Skin cancer in her sister; Stroke in an other family member; Thyroid disease in hermother. REVIEW OF SYSTEMS Review of Systems Constitutional: Negative for activity change, appetite change, chills and fever. HENT: Negative for congestion, dental problem, ear pain, hearing loss and voice change. Eyes: Negative for pain and visual disturbance. Respiratory: Positive for cough. Negative for apnea, chest tightness and shortness of breath. Cardiovascular: Negative for chest pain, palpitations and leg swelling. Gastrointestinal: Negative for blood in stool, constipation, diarrhea, nausea and vomiting. Endocrine: Negative for cold intolerance and heat intolerance. Genitourinary: Negative for difficulty urinating and hematuria. Skin: Negative for color change, rash and wound. Allergic/Immunologic: Negative for environmental allergies. Neurological: Negative for dizziness, syncope, numbness and headaches. Hematological: Negative for adenopathy. Does not bruise/bleed easily. Psychiatric/Behavioral: Negative for confusion. The patient is not nervous/anxious and is not hyperactive. Objective PHYSICAL EXAM BP (!) 129/1 Pulse 63 Ht 165.1 cm (5' 5 ) Wt 101.1 kg (222 lb 14.4 oz) LMP 10/23/2019 Comment: currently taking progesterone since November 2019- has breakthrough bleeding BMI 37.09 kg/m?? Right shoulder Inspection Erythema: absent Swelling: absent Skin temperature: normal AC joint deformity: absent Surgical scar/wound: absent. Palpation Tenderness is present. The patient has tenderness in the biceps tendon, acromioclavicular joint, aneterior shoulder and lateral shoulder area(s). Range of motion The patient has reduced range of motion of the right shoulder. The patient does not have pain with range of motion of the right shoulder. Active forward flexion: 150 degrees. Active external rotation at 0 degrees: 60 degrees. Active abduction: 160 degrees. Active adduction: 40 degrees. Stability Th patient has normal stability of the right shoulder. Strength The patient has 5/5 strength throughout the right shoulder. Shoulder abduction: 5/5 and painful External rotation 5/5 and pain free Supraspinatus: painful and 4/5 Bicep: 4/5 and painful Neurovascular The patient has normal vascular on the right side of her body. She has normal sensation on the right side of her body. Median: normal Radial: normal Ulnar: normal Tests Apprehension: negative Belly press: negative Cross arm: positive Hawkin's test: positive Impingement signs: positive Maciol's: positive Speed's: positive Comments: Severe tenderness bicipital groove Left shoulder The patient has normal inspection, palpation, range of motion, strength, and stability of the left shoulder. REVIEW OF X-RAYS/STUDIES/LABS XR Shoulder Right 2 or More Views Four views right shoulder show no fracture subluxation dislocation type 2 acromion AC joint arthritis COMPARISON: 09/03/2014 TECHNIQUE: Axial proton density SPAIR and T1; Coronal T2 fat sat, proton density, and proton density SPAIR; Sagittal T2. FINDINGS: Again noted is thickening and increased signal in the supraspinous tendon suggesting tendinosis or partial tear. The presence of fluid in the subacromial bursa suggest a tear. The subscapularis, teres minor tendons appear intact. The long head of the biceps is maintained in an anatomic location. No muscular atrophy is noted. No fluid is seen in the subacromial or subdeltoid bursa. Spurring of the acromioclavicular joint is seen. No obvious abnormality of the labral capsular complex is seen. IMPRESSION: 1. Tendinosis or partial tear of the supraspinatus tendon. 2. Osteoarthrosis of the acromioclavicular joint. Assessment Assessment/Plan Deejay was seen today for pain. Diagnoses and all orders for this visit: Right shoulder pain, unspecified chronicity - XR Shoulder Right 2 or More Views Pre-operative exam - XR Chest Pa Lateral 2 Views; Future - Erythrocyte sedimentation rate; Future - CRP (acute phase); Future - D-dimer, quantitative; Future Impingement syndrome of right shoulder Biceps tendinitis of right upper extremity Arthritis of right acromioclavicular joint Nontraumatic incomplete tear of right rotator cuff Procedures PLAN I discussed the nature of the patient's condition in the clinic today. We discussed arthroscopic rotator cuff repair rotation medical implant, distal clavicle excision, with subacromial decompression, sub Pec biceps tenodesis. Risks and benefits of the procedure were discussed the patient to include bleeding, infection, damage to surrounding structures including nerves and vessels, persistent stiffness, retear, and possible fracture. The patient understood these risks and agreed to proceed withsurgery as described above and informed consent was established in the office today. TARIK Strong MD Reviewed and no changes to surgical plan since patient was last evaluated and consent was established. Kelechi Gloria NP Cosigned by Cuate Mcmullen MD at 04/09/2022 8:26 AM CDT documented in this encounter Nursing Notes * Kelly Moncada RN - 03/31/2022 4:34 PM CDT 03/31/22 1617 Sleep Apnea Questions Have you ever had a sleep study? Yes Have you ever been diagnosed with sleep apnea? Yes Do you use a machine to help you breathe at night? No STOP-Bang Questionnaire Do you snore loudly? 1 Do you often feel tired or fatigued after you sleep? 0 Has anyone ever observed you stop breathing in your sleep? 1 Do you have or are you being treated for high blood pressure? 1 Recent BMI (Calculated) 37.3 Is BMI greater than 35 kg/m2? 1=Yes Age older than 50 years old? 0=No Neck Circumference Greater Than (17 inches Male) or (16 inches Female) 0 Gender - Male 0=No STOP-Bang Total Score 4 Discharge instructions for sleep apnea placed in patients chart. documented in this encounter Miscellaneous Notes * Perioperative Nursing Note - Bree Lamb RN - 04/09/2022 2:18 PM CDT Pt ambulatory with no difficulty at time of discharge and was able to void. * Op Note - Cuate Mcmullen MD - 04/09/2022 10:35 AM CDT Images from the original note were not included. Operative Report SURGEON: Cuate Mcmullen MD Permanent Waver: Gladys Mcgraw Scrub: Mc Vaughn RN; Tamara Amin ST MD ASST: Nolan Bernard PA SURGICAL TEAM: Surgeon(s) and Role: * Cuate Mcmullen MD - Primary DATE OF SURGERY : 04/09/2022 PREOPERATIVE DIAGNOSIS: See preoperative H and P POSTOPERATIVE DIAGNOSIS: Post-op Diagnosis * Impingement syndrome of right shoulder [M75.41] * Biceps tendinitis on right [M75.21] * Arthritis of right acromioclavicular joint [M19.011] * Nontraumatic incomplete tear of right rotator cuff [M75.111] PROCEDURE: Right shoulder arthroscopy, distal claviculectomy including distal articular surface, decompressionof subacromial space with partial acromioplasty with coracoacromial release, and subpec biceps tenodesis rotator cuff debridement (R) ANESTHESIA: General with other Regional IMPLANTS: Implant Name Type Inv. Item Serial No. Real Estate Inspector Lot No. LRB No. Used Action [employer] SET IMPLANT AR[employer] FIBERTAK BICEPS STERILE LATEX FREE [id number] - [id number] AR[employer] INCSET IMPLANT AR[employer]REX FIBERTAK BICEPS STERILE LATEX FREE AR- 3670 [employer] [id number] Right 1 Implanted Estimated Blood Loss: 10 mL Operation in detail: Patient taken OR general is form placed in a beach chair position all extremities well-padded rightupper extremity was cleaned with alcohol and prepped and draped in standard sterile technique. Arm placed in spider arm white after time-out was performed bony landmarks were marked posterior capsule and subacromial space was injected with lidocaine with epi. Standard posterior portals placed diagnostic arthroscopy performed posterior inferior labral tear was noted biceps tendonitis was noted using outside in technique anterior ports placed and the shoulder was inspected the rotator cuff was noted be undersurface tear less than 10% this was debrided with a shaver. the biceps was cut at the superior labrum was debrided. Went to the subacromial space debride the subacromial subdeltoid bursal tissue released the coracoacromial ligament using outside in technique a lateral portals placed. Remove soft tissue off the distal clavicle. Using standard cutting block technique with a type 2 acromion to a type 1 acromion. Using the bur approximately 10 mm distal clavicle was removed. suction was used remove arthroscopic fluid Approximately 2.5 cm incision was marked and the axillary crease just below the pack. Blunt dissection was taken down to the along with the biceps tendon retractors placed to pull the pectoralis major laterally. The tendon was pulled out. The bicipital groove was prepared with small drill holes. And then drilled unit cortically all tape anchor was impacted and excellent fixation was obtained. Themuscle tendinous junction of the biceps was then whip stitch and then pulled in tied down to complete the biceps tenodesis. portals closed with 4 Monocryl Mastisol Steri-Strips Xeroform 4x4s ABDs Medipore tape a sling was placed. The patient was extubated taken recovery in stable condition needle count sponge counts were counts correct in the case postoperative plan patient loss standard biceps tenodesis protocol. Complications: None Condition on Discharge from the operating room was stable Cuate Mcmullen MD Date: 04/09/2022 Time: 11:57 AM Infrastructure Consultant completed by using M*Modal Fluency Direct speaking software, therefore, transcriptionvariances may occur. * Perioperative Nursing Note - Kelly Moncada RN - 03/31/2022 4:32 PM CDT Covid screening on 04-07-22 here at [facility]. * Pre-Procedure Instructions - Kelly Moncada RN - 03/31/2022 4:25 PM CDT We are pleased that you and your doctor have chosen [facility] for your surgery. We hope that the following information will help make your visit a pleasant one. Surgery Date: 04/09/2022 Before your surgery: Notify your doctor of ANY change in your health such as a cold, sore throat, fever, any infection or a change in the problem for which you are having your surgery. Follow any instructions given to you by your doctor or surgeon. Check with your doctor if you need to STOP taking: Aspirin (ordered by your doctor) Plavix Coumadin One week before surgery STOP taking: All herbal supplements Aspirin (not ordered by your doctor) Aleve, Advil, Motrin, Ibuprofen, or other similar medications (Tylenol is okay). 24 hours before your surgery: No smoking or alcoholic drinks. Night before your surgery: Do not eat or drink anything after midnight. Follow surgeon's instructions for anti-bacterial shower night before and morning of surgery. Day of surgery: Do not swallow any water when you brush your teeth. ONLY take these pills with a tiny sip of water. Pre-Surgery Instructions: Medication Instructions alirocumab (Praluent Pen) 150 mg/mL pen injector Stop taking 1 days prior to surgery citalopram (CeleXA) 40 mg tablet Take morning of surgery levothyroxine (SYNTHROID) 175 mcg tablet Take morning of surgery losartan (COZAAR) 100 mg tablet Take morning of surgery Use no make-up, nail zambian, lotions, oils or powders on your skin. Wear comfortable clothes that will not be tight in the area of your surgery. Leave all valuables and jewelry (including all body piercing jewelry) at home. If you use a CPAP machine, please bring it with you to wear after your surgery. Please bring your a photo ID and insurance cards with you. After your Outpatient Surgery: You must have a responsible adult to drive you home, you will not be allowed to drive or take a cabhome. We recommend you have someone stay with you for 24 hours after your surgery. What to bring if you are spending the night with us: Bring toiletry items such as: robe, slippers, toothbrush, toothpaste, brush or comb. Bring contact lens, hearing aids, glass cases and denture container if you use any of these items. The hospital will provide you with a gown. Questions or concerns: If you have any questions or concerns regarding your procedure, contact your surgeon as soon as possible. If you have questions regarding your Pre-Admission Testing, please call us. We can be reached at the number posted at the top of the page. documented in this encounter Plan of Treatment Not on file documented as of this encounter Procedures Procedure Name Priority Date/Time Associated Diagnosis Comments ARTHROSCOPY SHOULDER 04/09/2022 9:24 AM CDT Impingement syndrome of right shoulder Biceps tendinitis on right Arthritis of right acromioclavicular joint Nontraumatic incomplete tear of right rotator cuff Special Needs arthroscopy equipment, Montalvo/Nephew vapor, Breg Sling shot 2 sling with abduction pillow, NMES, Montalvo/Nephew anchors, Spider, Arthrex anchors, beach chair, polar care, biceps tenodesis set Arthrex on hold (subpec) documented in this encounter Visit Diagnoses Diagnosis Impingement syndrome of right shoulder Biceps tendinitis of right upper extremity Arthritis of right acromioclavicular joint Nontraumatic incomplete tear of right rotator cuff documented in this encounter Admitting Diagnoses Diagnosis Impingement syndrome of right shoulder Biceps tendinitis of right upper extremity Arthritis of right acromioclavicular joint Nontraumatic incomplete tear of right rotator cuff documented in this encounter Administered Medications Inactive Administered Medications - up to 3 most recent administrations Medication Order MAR Action Action Date Dose Rate Site acetaminophen (TYLENOL) tablet 1,000 mg 1,000 mg, oral, Once, On Jacquie 04/09/22 at 0900, For 1 dose, Pre-Op, Indications: Pre-Emptive AnalgesiaIndications:Pre-Empti ve Analgesia Given 04/09/2022 8:39 AM CDT 1,000 mg bupivacaine preservative free 0.125 % in On-Q reservoir 640 ML 6 mL/hr, perineural, Continuous, Starting on Jacquie 04/09/22 at 1100, Phase I & Post-op Floor, Do NOT squeeze the On-Q pump. Make sure tubing clamp is open. If the tubing appears kinked/crimped, massage area of tubing to facilitate flow. Make sure the dressing over the catheter site remains clean and dry. Do NOT remove remove dressing as this may dislodge the catheter. If wound drainage is present and/or dressing is not secure, reinforce and call MD. Do NOT tape over the in-line filter. This can affect flow rate. Do NOT use cold therapy or ice around the infuser. To be started during procedure., Catheter Site: Interscalene, Catheter Side: Right, Indications: Postoperative PainIndications:Postoperative Pain New Bag 04/09/2022 11:56 AM CDT 6 mL/hr 6 mL/hr celecoxib (CeleBREX) capsule 200 mg 200 mg, oral, Once, On Jacquie 04/09/22 at 0900, For 1 dose, Pre-Op, Indications: Pre-Emptive PainIndications:Pre-Emptive Pain Given 04/09/2022 8:39 AM CDT 200 mg clindamycin (CLEOCIN) 900 mg/50 mL in dextrose 5% (premix) 900 mg 900 mg, intravenous, Once, On Jacquie 04/09/22 at 0900, For 1 dose, Pre-Op, Indications: Prophylaxis, SurgicalIndications:Prophylaxi s, Surgical New Bag 04/09/2022 8:41 AM CDT 900 mg Lactated Ringer's (LR) infusion 30 mL/hr, intravenous, Continuous, Starting on Jacquie 04/09/22 at 0900, Pre-Op, Restarted 04/09/2022 9:43 AM CDT New Bag 04/09/2022 8:39 AM CDT 30 mL/hr 30 mL/hr scopolamine patch 72 hour 1 patch 1 patch, transdermal, Administer over 72 Hours, Once, On Jacuqie 04/09/22 at 0900, For 1 dose, Pre-Op Medication Applied 04/09/2022 8:40 AM CDT 1 patch Behind Left Ear vancomycin 1500 mg/250 mL in sodium chloride 0.9% (premix) 1,500 mg 1,500 mg, intravenous, Administer over 90 Minutes, Once, On Jacquie 04/09/22 at 0900, For 1 dose, Pre-Op, Administer within 120 minutes of incision., Indications: Prophylaxis, SurgicalIndications:Pro phylaxis, Surgical New Bag 04/09/2022 9:25 AM CDT 1,500 mg documented in this encounter Discontinued Medications Medication Sig Discontinue Reason Start Date End Da te albuterol HFA (PROVENTIL HFA,VENTOLIN HFA,PROAIR HFA) 90 mcg/actuation inhaler INHALE 2 PUFFS BY MOUTH EVERY 6 HOURS NEEDED FOR WHEEZING Therapy completed 01/13/2022 03/31/2022 loratadine (CLARITIN) 10 mg tablet Take 10 mg by mouth daily Therapy completed 09/25/2021 03/31/2022 promethazine-codeine (PHENERGAN with CODEINE) 1.25-2 mg/mL syrup Take 5-10 mL by mouth every 4 (four) hours as needed for cough Therapy completed 12/15/2021 03/31/2022 documented as of this encounter Active and Recently Administered Medications Times are shown in CDT. Scheduled Medication Order 04/07/2022 04/08/2022 04/09/2022 acetaminophen (TYLENOL) tablet 1,000 mg (COMPLETED) 1,000 mg, oral, Once, On Jacquie 04/09/22 at 0900, For 1 dose, Pre-Op, Indications: Pre-Emptive Analgesia 0839 (Given - Provid er: Bree Lamb RN) celecoxib (CeleBREX) capsule 200 mg (COMPLETED) 200 mg, oral, Once, On Jacquie 04/09/22 at 0900, For 1 dose, Pre-Op, Indications: Pre-Emptive Pain 0839 (Given - Provid er: Bree Lamb RN) clindamycin (CLEOCIN) 900 mg/50 mL in dextrose 5% (premix) 900 mg (COMPLETED) 900 mg, intravenous, Once, On Jacquie 04/09/22 at 0900, For 1 dose, Pre-Op, Indications: Prophylaxis, Surgical 0841 (New Bag - Prov ider: Bree Lamb RN) EPINEPHrine 3 mg in Lactated Ringer's (LR) 3,000 mL irrigation solution (COMPLETED) irrigation, Once, On Jacquie 04/09/22 at 0900, For 1 dose, Intra-Op, Bag #1 0900 (Due)1035 (Give n - Provider: Cuate Mcmullen MD) EPINEPHrine 3 mg in Lactated Ringer's (LR) 3,000 mL irrigation solution (COMPLETED) irrigation, Once, On Jacquie 04/09/22 at 0900, For 1 dose, Intra-Op, Bag #2 0900 (Due)1035 (Give n - Provider: Cuate Mcmullen MD) famotidine (PEPCID) injection 20 mg (COMPLETED) 20 mg, intravenous, Administer over 2 Minutes, Once, On Jacquie 04/09/22 at 1045, For 1 dose, Intra-Op 1016 (Given - Provid er: Bethany Duque CRNA) scopolamine patch 72 hour 1 patch 1 patch, transdermal, Administer over 72 Hours, Once, On Jacquie 04/09/22 at 0900, For 1 dose, Pre-Op 0840 (Medication Nayely lied - Provider: Bree Lamb RN)1433 (Due: Medication Removed - Provider: Automatic Discharge Provider - Comment: Time automatically adjusted from order being discontinued) tranexamic acid (CYKLOKAPRON) 2,000 mg in sodium chloride 0.9% 100 mL (COMPLETED) 2,000 mg (rounded from 1,525.5 mg = 15 mg/kg ? 101.7 kg), intravenous, Once, On Jacquie 04/09/22 at 0900, For 1 dose, Intra-Op, Administer at time of incision, Indications: Prophylaxis, Surgical 1006 (New Bag - Prov ider: Bethany Duque CRNA) vancomycin 1500 mg/250 mL in sodium chloride 0.9% (premix) 1,500 mg (COMPLETED) 1,500 mg, intravenous, Administer over 90 Minutes, Once, On Jacquie 04/09/22 at 0900, For 1 dose, Pre-Op, Administer within 120 minutes of incision., Indications: Prophylaxis, Surgical 0925 (New Bag - Prov ider: Bree Lamb RN) Continuous Medication Order 04/07/2022 04/08/2022 04/09/2022 bupivacaine preservative free 0.125 % in On-Q reservoir 640 ML 6 mL/hr, perineural, Continuous, Starting on Jacquie 04/09/22 at 1100, Phase I & Post-op Floor, Do NOT squeeze the On-Q pump. Make sure tubing clamp is open. If the tubing appears kinked/crimped, massage area of tubing to facilitate flow. Make sure the dressing over the catheter site remains clean and dry. Do NOT remove remove dressing as this may dislodge the catheter. If wound drainage is present and/or dressing is not secure, reinforce and call MD. Do NOT tape over the in-line filter. This can affect flow rate. Do NOT use cold therapy or ice around the infuser. To be started during procedure., Catheter Site: Interscalene, Catheter Side: Right, Indications: Postoperative Pain 1156 (New Bag - Prov ider: Tawanna Teixeira RN)1833 (Due: Stopped) Lactated Ringer's (LR) infusion 30 mL/hr, intravenous, Continuous, Starting on Jacquie 04/09/22 at 0900, Pre-Op, 0839 (New Bag - Prov ider: Bree Lamb RN)0942 (Paused - Provider: Bethany Duque CRNA - Comment: Switch to gravity)0943 (Restarted - Provider: Bethany Duque CRNA)1055 (Anesthesia Volume Adjustment - Provider: Bethany Duque CRNA)1833 (Due: Stopped) PRN Medication Order 04/07/2022 04/08/2022 04/09/2022 Lactated Ringer's (LR) irrigation (CANCELED) As needed, Starting on Jacquie 04/09/22 at 1113, Intra-Op 1113 (Given - Provid er: Cuate Mcmullen MD) lidocaine-EPINEPHrine (XYLOCAINE with EPI) 1 %-1:200,000 preservative free injection (CANCELED) As needed, Starting on Jacquie 04/09/22 at 1036, Intra-Op, Indications: Administration of Local Anesthesia 1036 (Given - Provid er: Cuate Mcmullen MD) documented in this encounter Orders Medications Ordered That Segundo ht Not Have Been Administered Count Last Ordered Date First Ordered Date benzoyl peroxide 5 % external liquid 1 03/2022 bupivacaine-EPINEPHrine (MAR DANIELLE with EPI) 0.25 %-1:200,000 preservative free injection - ADS Override Pull 1 04/09/2022 Carrier Fluids for Secondary Infusion - 0.9% Sodium Chloride 1 04/09/2022 diphenhydrAMINE (BENADRYL) i njection 12.5 mg 1 04/09/2022 ePHEDrine 50 mg/mL injection - ADS Override Pull 1 04/09/2022 EPINEPHrine 3 mg in Lactated Ringer's (LR) 3,000 mL irrigation solution 2 04/09/2022 famotidine (PEPCID) injection 20 mg 1 04/09 fentaNYL (SUBLIMAZE) 50 mcg/ mL preservative free injection - ADS Override Pull 2 04/09/2022 fentaNYL (SUBLIMAZE) preserv ative free injection 25 mcg 1 04/09/2022 Lactated Ringer's (LR) irrigation 1 022 lidocaine-EPINEPHrine (XYLOC LUISANA with EPI) 1 %-1:200,000 preservative free injection 1 04/09/2022 midazolam (VERSED) 1 mg/mL p reservative free injection - ADS Override Pull 1 04/09/2022 naloxone (NARCAN) 0.4 mg/mL injection 0.04-0.4 mg 1 04/09/2022 ondansetron (ZOFRAN) injection 4 mg 1 04/09 prochlorperazine (COMPAZINE) injection 10 mg 1 04/09/2022 sodium chloride 0.9% flush 0.5-20 mL 1 03/2022 tranexamic acid (CYKLOKAPRON ) 2,000 mg in sodium chloride 0.9% 100 mL 1 04/09/2022 Diet Count Last Ordered Date First Orde red Date ADULT DISCHARGE DIET 1 04/09/2022 Nursing Count Last Ordered Date First Orde red Date DISCHARGE ACTIVITY 5 04/09/2022 DISCHARGE CALL PROVIDER 5 04/09/2022 DISCHARGE DRESSING 2 04/09/2022 DISCHARGE INSTRUCTIONS 2 04/09/2022 FOLLOW UP WITH ESTABLISHED PROVIDER 1 04/09 documented in this encounter Care Teams Vp Production Relationship Specialty [place] [id number] [address] [facility] [address] [address] PCP - General Family Medicine 02/21/19 Roya Andre PA [address] [place] [address] [address] [place] [id number] Physician Salesperson Women'S Dresses Orthopedic Surgery 04/09/22 documented as of this encounter
--- OUTSIDE RECORDS SUMMARY | 2024-08-09 23:30 | XMS_ITS | Encounter Summary ---
Author Organization [facility] Address [address] [facility] [address] [place] [address] Care Team Providers Care Food Runner Name Role Phone Cassius Ortega NP Primary Care Provider [phone] Roya Andre Unavailable [phone] Reason for Visit * Reason Comments Follow-up Encounter Details Date Type Department Care Team (Late st Contact Info) Description 05/08/2022 1:00 PM CDT Office Visit [facility] [id number] [id number] Charly Olson MD [address] [place] [address] [id number] Regular check-up (Primary Dx); Primary hypertension; Moderate obstructive sleep apnea; Mixed hyperlipidemia Social History Tobacco Use Types [...] on file Legal Sex Female 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 Gender Identity Not on file Sexual Orientation Not on file 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 documented as of this encounter Last Filed Vital Signs Vital Sign Reading Time Taken Comments Blood Pressure 130/78 05/08/2022 1:17 PM CDT Pulse 82 05/08/2022 1:17 PM CDT Temperature - - Respiratory Rate 16 05/08/2022 1:17 PM CDT Oxygen Saturation 96% 05/08/2022 1:17 PM CDT Inhaled Oxygen Concentration - - Weight 102.6 kg (226 lb 3.2 oz) 05/08/2022 1:17 PM CDT Height 165.1 cm (5' 5 ) 05/08/2022 1:17 PM CDT Body Mass Index 37.64 05/08/2022 1:17 PM CDT documented in this encounter Progress Notes * Charly Olson MD - 05/08/2022 1:00 PM CDT Cardiology note Reason for Office Visit: Chief Complaint Patient presents with Follow-up History of Present Illness: Deejay Paz is a 47 y.o. female seen in follow up for HTN and Hyperlipidemia. She is intoleranty of statins with diffuse myalgia. She recently had right rotator cuff repair. Stress Echo on 05/09/20 was normal. Past Medical History: Diagnosis Date Delayed emergence [...] Allergies Allergen Reactions Cefazolin Blisters and Redness Gheiuxq-Igy-Abt Reductase Inhibitors Muscle pain and Joint pain Medications: Current Outpatient Medications Medication Sig Dispense Refill alirocumab (Praluent Pen) 150 mg/mL pen injector Inject 150 mg under the skin every 14 (fourteen) days 6 mL 1 ascorbic acid (VITAMIN C) 500 mg tablet,chewable Take 1 tablet/chew tab (500 mg total) by mouth 2 (two) times a day 60 tablet/chew tab 0 citalopram (CeleXA) 40 mg tablet TAKE 1 TABLET BY MOUTH EVERY MORNING 90 tablet 0 levothyroxine (SYNTHROID) 175 mcg tablet TAKE 1 TABLET BY MOUTH EVERY DAY 90 tablet 0 losartan (COZAAR) 100 mg tablet TAKE 1 TABLET BY MOUTH EVERY DAY 90 tablet 1 ondansetron (ZOFRAN) 4 mg tablet Take 1 tablet (4 mg total) by mouth every 6 (six) hours as needed for nausea or vomiting 30 tablet 1 cholecalciferol (VITAMIN D-3) 2000 unit capsule Take 1 capsule (2,000 Units total) by mouth daily (Patient not taking: Reported on 05/08/2022) 30 capsule 0 oxyCODONE-acetaminophen (PERCOCET) 5-325 mg per tablet Take 1-2 tablets every 4- 6 hours as needed for pain (Patient not taking: No sig reported) 30 tablet 0 senna-docusate (PERICOLACE) 8.6-50 mg 1-2 times daily as needed for constipation (Patient not taking: Reported on 05/08/2022) 30 tablet 1 No current facility-administered medications for this visit. Vital Signs: Vitals BP 130/78 (BP Location: Left arm, Patient Position: Sitting) Pulse 82 Resp 16 Ht 165.1 cm (5' 5 ) Wt 102.6 kg (226 lb 3.2 oz) LMP 10/23/2019 SpO2 96% BMI 37.64 kg/m?? Vitals: 05/08/22 1317 BP: 130/78 Pulse: 82 Resp: 16 SpO2: 96% Wt Readings from Last 3 Encounters: 05/08/22 102.6 kg (226 lb 3.2 oz) 04/22/22 101.2 kg (223 lb) 04/09/22 101.3 kg (223 lb 5.2 oz) Physical Exam: Physical Exam Vitals reviewed. [...] 04/06/2014 Lab Results Component Value Date TSH 0.21 (L) 10/27/2021 T3FREE 3.00 04/05/2013 FREET4 1.36 10/27/2021 Testing: No results found. No results found for this or any previous visit.] CARDIOGRAPHICS: ECG: SR, Normal ECG Impression and Plan: Diagnoses and all orders for this visit: Regular check-up (Primary) - ECG 12 lead Primary hypertension Assessment & Plan: Continue losartan. Moderate obstructive sleep apnea Mixed hyperlipidemia Assessment & Plan: The patient to start Praluent and will check lipid panel in 3 months. Thank you for the consult. We will be happy to follow in this patient's care. Charly Olson, MARTELL@4:02 PM Cc:Cassius Ortega NP documented in this encounter Miscellaneous Notes * Assessment & Plan Note - Charly Olson MD - 05/08/2022 4:02 PM CDT Associated Problem(s): Hyperlipidemia The patient to start Praluent and will check lipid panel in 3 months. * Assessment & Plan Note - Charly Olson MD - 05/08/2022 4:01 PM CDT Associated Problem(s): Primary hypertension Continue losartan. documented in this encounter Plan of Treatment Not on file documented as of this encounter Procedures Procedure Name Priority Date/Time Associated Diagnosis Comments ECG 12-LEAD Routine 05/08/2022 Regular check-up documented in this encounter Results * ECG 12 lead (05/08/2022) Charly Olson MD ECG ORDERABLES Edited Result - Final documented in this encounter Visit Diagnoses Diagnosis Regular check-up- Primary Routine general medical examination at a health care facility Primary hypertension Unspecified essential hypertension Moderate obstructive sleep apnea Mixed hyperlipidemia documented in this encounter Care Teams Food Runner Relationship Specialty [place] [address] [address] [facility] [address] [place] [address] PCP - General Family Medicine 02/21/19 Roya Andre PA [address] [facility] [address], [place] [address] Physician Care Support Representative Orthopedic Surgery 04/09/22 documented as of this encounter
--- OUTSIDE RECORDS SUMMARY | 2024-08-09 23:30 | XMS_ITS | Encounter Summary ---
Author Organization [facility] Healthcare Address [address] [place] [address] Care Team Providers Care Community Liaison Officer Name Role Phone Cassius Ortega NP Primary Care Provider [phone] Reason for Referral * Sleep Medicine (Routine) - Closed Specialty Diagnoses / Procedures Referred By Cara alvarez Referred To Contact Diagnoses SHREYA (obstructive sleep apnea) Procedures PSG-Sleep Provider Use Only Daniele Morse MD Phone: tel: fax: [address] [phone] Referral ID Status Reason Start Date Expiration Date Visits Re quested Visits Authorized [id number] Closed 03/20/2022 09/16/2022 1 1 Reason for Visit * Sleep Medicine (Routine) - Closed Specialty Diagnoses / Procedures Referred By Cara alvarez Referred To Contact Diagnoses SHREYA (obstructive sleep apnea) Procedures PSG-Sleep Provider Use Only Daniele Morse MD Phone: tel: fax: [address] [phone] Referral ID Status Reason Start Date Expiration Date Visits Re quested Visits Authorized [id number] Closed 03/20/2022 09/16/2022 1 1 Encounter Details Date Type Department Care Team (Latest Contact Info) Description 03/26/2022 6:19 PM CDT - 03/26/2022 11:59 PM CDT Hospital Encounter [facility] [address] [place] [address] Daniele Morse MD [address] [place] [address] [address] CATES [address] [place] [address] SHREYA (obstructive sleep apnea) Discharge Disposition: Discharge to home or self [...] on file Legal Sex 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 Gender Identity Not on file Sexual Orientation Not on file 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 documented as of this encounter Medications at Time of Discharge albuterol HFA (PROVENTIL HFA,VENTOLIN HFA,PROAIR HFA) 90 mcg/actuation inhaler INHALE 2 PUFFS BY MOUTH EVERY 6 HOURS NEEDED FOR WHEEZING 8.5 g 1 01/13/2022 2 citalopram (CeleXA) 40 mg tablet TAKE 1 TABLET BY MOUTH EVERY MORNING 90 tablet 12/30/2021 2 evolocumab (REPATHA) syringe syringeIndication s:Statin intolerance Inject 1 mL (140 mg total) under the skin every 14 (fourteen) days 6 mL 1 03/26/2022 08/26/202 2 levothyroxine (SYNTHROID) 175 mcg tablet TAKE 1 TABLET BY MOUTH EVERY DAY 90 tablet 12/30/2021 2 loratadine (CLARITIN) 10 mg tablet Take 10 mg by mouth daily 09/25/2021 2 losartan (COZAAR) 100 mg tablet TAKE 1 TABLET BY MOUTH EVERY DAY 90 tablet 1 10/01/2021 2 promethazine-code ine (PHENERGAN with CODEINE) 1.25-2 mg/mL syrup Take 5-10 mL by mouth every 4 (four) hours as needed for cough 120 mL 12/15/2021 2 documented as of this encounter Discharge Disposition Disposition Code Departure Means Destination Discharge to home or self care documented in this encounter Progress Notes * Daniele Morse MD - 03/26/2022 7:00 PM CDT Indication for study: Ms Paz is a 47-year-old with status diagnosis of moderate obstructive sleep apnea syndrome who demonstrates poor tolerance to continuous positive pressure therapy. The present study was ordered as a titration study to assess palpable therapy and mask fit. vital statistics: Age: 47 years Height: 65 in Weight: 224 lb BMI: 37.3 Procedure: A polysomnographic sleep study was performed. Variables monitored and recorded during the study; EEG, EOG, EKG, Chin EMG, snoring, lower extremity EMG, nasal and oral airflow, chest and abdominal wall movements, oxygen saturation and audio/video monitoring . Unless otherwise noted, polysomnogram was recorded and scored in accordance with recommended parameters as outlined in the AASM Manual for the Scoring of Sleep and Associated Events, Version 2.6. Hypopneas were scored in accordance with acceptable parameters as outlined in Chapter VIII, Part 1: Rules for Adults, Category D, Section 1B. Description of polysomnographic findings: The patient's total time in bed was 449.3 minute. 392 minutes of total sleep was present. Sleep efficiency was 87.3%. Latency from lights out to stage N1 was 10 minutes, latency to stage N2 from sleep onset was 0.5 minute, latency stage N3 from sleep onset was 18 minutes, and latency to REM from sleep was 116.5 minute. Sleep stage recording revealed stage wake of 58 minutes. Stage non-REM comprised 265 minutes (67.7% of total sleep time). This included stage N1 of 18 minute (4.6% of total sleep time), stage N2 of 226 minute (57.7% of total sleep time), and stage N3 of 21.5 minutes (5.5% total sleep time). Stage REM comprised 126.5 minute (32.3% of total sleep time). Positive pressure therapy was attempted , and continuous positive pressure therapy of 6-9 cm water were obtained. Subsequently bilevel therapy was initiated. Inspiratory positive airway pressure of 9-13 cm, and expiratory positive airway pressure 5-8 cm were attempted. Bilevel therapy with inspiratory positive airway pressure of 13 cm, and expiratory positive airway pressure of 8 cm seems to be the optimal settings. Total recording time was 75.5 minutes. Sleep efficiency was 94.7%. Adequate REMsupine was obtained. The residual AHI was 0 . The lowest saturation was 93%. A Eson size small maskwas used. Limb movement recording did not reveal any periodic limb movements. Average heart rate during wake was 63.7, and during sleep was 61.4. Impression: 1. Mild reduction of sleep efficiency. 2. Bilevel therapy with inspiratory positive airway pressure of 13 cm and expiratory positive airway pressure of 8 cm was found to be optimal 3. Eson size small mask was used. 4. Sleep hygiene should be reviewed to assess factors that may improve sleep quality. 5.Weight management and regular exercise should be initiated or continued 6.Avoid alcohol sedatives and other ENGINEERING OPERATOR depression that may worsen sleep apnea and disrupt normal sleep architecture 7. Patients with sleep apnea may have significant daytime hypersomnolence. If that is the case, driving or handling heavy machinery should be avoided until the apnea and excessive sleepiness have resolved. documented in this encounter Plan of Treatment Not on file documented as of this encounter Procedures Procedure Name Priority Date/Time Associated Diagnosis Comments PSG (COMPLEX) Routine 03/30/2022 SHREYA (obstructive sleep apnea) documented in this encounter Results * PSG-Sleep Provider Use Only (03/30/2022) Impressions Daniele Morse MD - 03/30/2022 Indication for study: Ms Paz is a 47-year-old with status diagnosis of moderate obstructive sleep apnea syndrome who demonstrates poor tolerance to continuous positive pressure therapy. ??The present study was ordered as a titration study to assess palpable therapy and mask fit. ?? vital statistics: ??Age: ??47 years ?? Height: ??65 in ?Weight: 224 lb ?BMI: ??37.3 Procedure: ??A polysomnographic sleep study was performed. Variables monitored and recorded during the study; EEG, EOG, EKG, Chin EMG, snoring, lower extremity EMG, nasal and oral airflow, chest and abdominal wall movements, oxygen saturation and ??audio/video monitoring . Unless otherwise noted, polysomnogram was recorded and scored in accordance with recommended parameters as outlined in the AASM Manual for the Scoring of Sleep and Associated Events, Version 2.6. Hypopneas were scored in accordance with acceptable parameters as outlined in Chapter VIII, Part 1: Rules for Adults, Category D, Section 1B. Description of polysomnographic findings: ??The patient's total time in bed ??was 449.3 minute. ??392 minutes of total sleep was present. ??Sleep efficiency was 87.3%. ?? Latency from lights out to stage N1 was 10 minutes, latency to stage N2 from sleep onset was 0.5 minute, latency stage N3 from sleep onset was 18 minutes, and latency to REM from sleep was 116.5 minute. ??Sleep stage recording revealed stage wake of 58 minutes. ??Stage non-REM comprised 265 minutes (67.7% ??of total sleep time). ??This included stage N1 of 18 minute (4.6% of total sleep time), stage N2 of 226 minute (57.7% of total sleep time), and stage N3 of 21.5 minutes (5.5% total sleep time). ??Stage REM comprised 126.5 minute (32.3% of total sleep time). Positive pressure therapy was attempted , and continuous positive pressure therapy of 6-9 cm water were obtained. ??Subsequently bilevel therapy was initiated. ??Inspiratory positive airway pressure of 9-13 cm, and expiratory positive airway pressure 5-8 cm were attempted. ??Bilevel therapy with inspiratory positive airway pressure of 13 cm, and expiratory positive airway pressure of 8 cm seems to be the optimal settings. ??Total recording time was 75.5 minutes. ??Sleep efficiency was 94.7%. ??Adequate REM supine was obtained. ??The residual AHI was 0 . ??The lowest saturation was 93%. ??A Eson size small mask was used. ?? Limb movement recording did not reveal any periodic limb movements. ??Average heart rate during wake was 63.7, and during sleep was 61.4. ?? Impression: 1. Mild reduction of sleep efficiency. ?? 2. Bilevel therapy with inspiratory positive airway pressure of 13 cm and expiratory positive airway pressure of 8 cm was found to be optimal 3. Eson size small mask was used. ?? 4. Sleep hygiene should be reviewed to assess factors that may improve sleep quality. 5.Weight management and regular exercise should be initiated or continued 6.Avoid alcohol sedatives and other ENGINEERING OPERATOR depression that may worsen sleep apnea and disrupt normal sleep architecture 7. Patients with sleep apnea may have significant daytime hypersomnolence. If that is the case, driving or handling heavy machinery should be avoided until the apnea and excessive sleepiness have resolved. Narrative Daniele Morse MD - 03/30/2022 In lab study is ready for review us Daniele Morse MD SLEEP CENTER ORDERABLES Final Re sult documented in this encounter Visit Diagnoses Diagnosis SHREYA (obstructive sleep apnea) Obstructive sleep apnea (adult) (pediatric) documented in this encounter Care Teams Community Liaison Officer Relationship Specialty [place] [address] [address] [facility] [address] [address] PCP - General Family Medicine 02/21/19 documented as of this encounter
--- OUTSIDE RECORDS SUMMARY | 2024-08-09 23:30 | XMS_ITS | Encounter Summary ---
Author Organization [facility] Address [address] [facility] [address] [place] [address] Care Team Providers Care Boil Off Worker Name Role Phone Cassius Ortega NP Primary Care Provider [phone] Reason for Referral * Sleep Medicine (Routine) - Closed Specialty Diagnoses / Procedures Referred By Contac t Referred To Contact Diagnoses SHREYA (obstructive sleep apnea) Procedures PSG-Sleep Provider Use Only Daniele Morse MD Phone: tel: fax: [facility] [address] [place] [address] Referral ID Status Reason Start Date Expiration Date Visits Re quested Visits Authorized [id number] Closed 03/20/2022 09/16/2022 1 1 Encounter Details Date Type Department Care Team (Late st Contact Info) Description 02/26/2022 1:15 PM CDT Office Visit [facility] [address] [facility] [address] [place] [address] Daniele Morse MD [address] [place] [address] [address] [place] [address] SHREYA (obstructive sleep apnea) (Primary Dx); Hypersomnia with sleep apnea; Severe obesity (BMI 35.0-35.9 with comorbidity) (CMS/HCC) (HCC) Social History Tobacco Use Types Packs/Day Years Used Date Smoking Tobacco: Never Smokeless Tobacco: Never Alcohol Use Standard Drinks/Week Comments Yes 0 (1 standard drink = 0.6 oz pur e alcohol) socially AUDIT-C Answer Date Recorded Q1: How often do you have a drink containing alc ohol? Monthly or less 12/08/2021 Q2: How many drinks containi ng alcohol do you have on a typical day when you are drinking? 1 or 2 12/08/2021 Q3: How often do you have si x or more drinks on one occasion? 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 Moderate obstructive sleep apnea syndrome Ms.. Paz presents for follow- up. She is a very pleasant 46-year-old with recent diagnosis of moderate obstructive sleep apnea syndrome following herinitial visit in August was set up with automatic positive pressure therapy. She reports compliance above therapy. She reports that she goes to bed between 10 and 11:00 p.m., and awakens between 6 and 8:00 a.m.. Takes 15 minutes to fall asleep. Patient reports continued struggle with positive pressure therapy. She is intolerant to the mask as well as the Continuous positive airway pressure. She takes the mask off in the middle of the night. As a consequence she awakens unrested 2. Hypersomnia with sleep apnea: Endorses persistent daytime fatigue. Watson Sleepiness Scale score is 5. 3. Severe obesity: Stable weight since last visit Physical Exam BP 103/70 Pulse 71 Ht 165.1 cm (5' 5 ) Wt 101.7 kg (224 lb 3.2 oz) LMP 10/23/2019 Comment: currently taking progesterone since November 2019- has breakthrough bleeding BMI 37.31 kg/m?? Constitutional: Obese female in no distress HENT: Head: Normocephalic and atraumatic. Mouth/Throat: Oropharynx is clear and moist. Eyes: Conjunctivae and EOM are normal. eye exhibits no discharge. No scleral icterus. Neck: Normal range of motion. Neck supple. No thyromegaly present. Cardiovascular: Normal rate, regular rhythm and normal heart sounds. Exam reveals no gallop and no friction rub. No murmur heard. Pulmonary/Chest: Effort normal and breath sounds normal. No respiratory distress. has no wheezes. has no rales. Exhibits no tenderness. Abdominal: Soft. exhibits no distension and no mass. There is no tenderness. Musculoskeletal: Normal passive range of movements; no muscle tenderness Neurological: Alert and oriented to person, place, and time. No cranial nerve deficit. Exhibits normal muscle tone. Skin: Skin is warm. No rash noted. No erythema. Psychiatric: normal mood and affect. Judgment normal. Review of data: Screening mammography from 01/22/2022: No evidence of malignancy. CBC from 12/15/2021 WBC 9.7, hemoglobin 11.8, hematocrit 37.1 platelets 191923. Progress notes from 12/24/2021 of Ms. Everett NP was reviewed summary of the report reveals a 47-year-old with allergic rhinitis and dysfunction of both eustachian tube. Has evidence of recurrent ear congestion. Uses Q-tips. Onset of bronchitis in July. Had COVID in September. Recommend discontinuation of Q- tips. Saline and Flonase daily. Follow-up in 1 month with audiogram. AP 1. Moderate Obstructive sleep apnea syndrome: Patient has moderate obstructive sleep apnea syndrome. Has demonstrated poor tolerance to continuous positive pressure therapy. Recommend the patient undergo a Continuous positive airway pressure/Bilevel positive airway pressure titration study to assess optimal therapy. Mask fitting was also be an issue. The physiology of sleep disordered breathing and its increased association with hypertension, diabetes, heart arrhythmia, strokes, heart attacks, heart failure, hypersomnia, obesity and mood disorders was discussed. Verbalizes understanding. Patient's compliance download reveals 57% usage averaging 1 hour 18 minutes of therapy. Residual AHI 1.3. 2. Hypersomnia with sleep apnea: Continue to monitor. 3. Severe obesity: Stable weight since last visit. The effects of obesity obstructive sleep apnea syndrome and other morbidities was discussed. Recommended diet and exercise in losing weight. Patientverbalizes an understanding. documented in this encounter Plan of Treatment Not on file documented as of this encounter Results * PSG-Sleep Provider Use [...] or continued 6.Avoid alcohol sedatives and other PROCESS DEVELOPMENT ENGINEER depression that may worsen sleep apnea and disrupt normal sleep architecture 7. Patients with sleep apnea may have significant daytime hypersomnolence. If that is the case, driving or handling heavy machinery should be avoided until the apnea and excessive sleepiness have resolved. Narrative Daniele Morse MD - 03/30/2022 In lab study is ready for review Daniele Morse MD SLEEP CENTER ORDERABLES Final Re sult * COVID-19 Coronavirus RNA Nasopharyngeal (03/25/2022 10:33 AM CDT) COVID-19 RNA Not Detected [facility] ([facility]) Comment: Interpretive Data Synonyms for this test include: PCR and NAAT . ??Testing performed by the [facility] Molecular Infectious Disease Laboratory. The 2019-Novel Coronavirus Assay (COVID-19) Real Time RT-PCR assay is for in vitro diagnostic use under FDA emergency use authorization only. A negative RT-PCR result does not preclude infection with COVID-19 and should not be used as the sole basis for treatment or other patient management decisions. ??Additional sample types have been validated according to CLIA regulations. ?? Current Interpretive Data was last revised on September 05, 2020. Testing performed by: [facility], [address] [place]., [address] Nasopharyngeal 03/25/2022 10 :33 AM CDT 03/25/2022 2:15 PM CDT Narrative [facility] ([facility]) - 03/26/2022 5:19 AM CDT Is the patient experiencing any symptoms consistent with COVID (eg. Fever, cough, shortness of breath)?->No What is the reason for testing?->Screening prior to scheduled??procedure or surgery??(Batched) Daniele Morse MD LAB MICROBIOLOGY - GENERAL ORDER NOAH Final Result [facility] ([facility]) [address] [facility] Department of Laboratories [place], [place] [id number] documented in this encounter Visit Diagnoses Diagnosis SHREYA (obstructive sleep apnea)- Primary Obstructive sleep apnea (adult) (pediatric) Hypersomnia with sleep apnea Hypersomnia with sleep apnea, unspecified Severe obesity (BMI 35.0-35.9 with comorbidity) (HCC) SHREYA (obstructive sleep apnea) Obstructive sleep apnea (adult) (pediatric) SHREYA (obstructive sleep apnea) Obstructive sleep apnea (adult) (pediatric) documented in this encounter Care Teams Boil Off Worker Relationship Specialty [place] [address] [address] [facility] [address] [place] [phone] PCP - General Family Medicine 02/21/19 documented as of this encounter
--- OUTSIDE RECORDS SUMMARY | 2024-08-09 23:30 | XMS_ITS | Encounter Summary ---
Author Organization [facility] Address [address] [facility] [address] [place] [address] Care Team Providers Care Pheresis Specialist Name Role Phone Cassius Ortega NP Primary Care Provider [phone] Encounter Details Date Type Department Care Team (Late st Contact Info) Description 03/26/2022 Telephone [facility] Orthopedics and Sports Medicine [address] [facility] [address] [place] [address] Cuate Mcmullen MD [address] [place] [address] [address] [place] [address] Social History Tobacco Use Types Packs/Day Years [...] on file 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 They approved rotator cuff repair however they do not approve patches. Either a complete repair or just debridement * Telephone Encounter - Vaishali Burton - 03/26/2022 10:13 AM CDT Partial denial for surgery. Peer to peer set up for 4 pm today documented in this encounter Plan of Treatment Not on file documented as of this encounter Visit Diagnoses Not on filedocumented in this encounter Care Teams Pheresis Specialist Relationship Specialty [place] [address] [address] [facility] [address] [address] PCP - General Family Medicine 02/21/19 documented as of this encounter
--- OUTSIDE RECORDS SUMMARY | 2024-08-09 23:30 | XMS_ITS | Encounter Summary ---
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 Gender Identity Not on file Sexual Orientation Not on file 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 documented as of this encounter Discharge Disposition Disposition Code Departure Means Destination Discharge to home or self care documented in this encounter Plan of Treatment Not on file documented as of this encounter Procedures Procedure Name Priority Date/Time Associated Diagnosis Comments COVID-19 CORONAVIRUS RNA Routine 03/25/2022 10:33 AM CDT SHREYA (obstructive sleep apnea) documented in this encounter Results * COVID-19 Coronavirus RNA Nasopharyngeal (03/25/2022 10:33 AM CDT) COVID-19 RNA Not Detected [facility] ([facility]) Comment: Interpretive Data Synonyms for this test include: PCR and NAAT . ??Testing performed by the [facility] Molecular Infectious Disease Laboratory. The 2019-Novel [...] on September 05, 2020. Testing performed by: [facility], [address] [place]., [address] Nasopharyngeal 03/25/2022 10 :33 AM CDT 03/25/2022 2:15 PM CDT Narrative [facility] ([facility]) - 03/26/2022 5:19 AM CDT Is the patient experiencing any symptoms consistent with COVID (eg. Fever, cough, shortness of breath)?->No What is the reason for testing?->Screening prior to scheduled??procedure or surgery??(Batched) Daniele Morse MD LAB MICROBIOLOGY - GENERAL ORDER NOAH Final Result [facility]) [address] [facility] [place] [address] documented in this encounter Visit Diagnoses Diagnosis SHREYA (obstructive sleep apnea) Obstructive sleep apnea (adult) (pediatric) documented in this encounter Care Teams Automatic Coil Machine Operator Relationship Specialty Start [place] [address] [address] [facility] [address] [place] [address] PCP - General Family Medicine 02/21/19 documented as of this encounter
--- OUTSIDE RECORDS SUMMARY | 2024-08-09 23:30 | XMS_ITS | Encounter Summary ---
Author Organization [facility] Address [address] [facility] [address] [place] [address] Care Team Providers Care Weaving Teacher Name Role Phone Cassius Ortega NP Primary Care Provider [phone] Roya Andre Unavailable [phone] Encounter Details Date Type Department Care Team (Late st Contact Info) Description 04/10/2022 Telephone [facility] Orthopedics and Sports Medicine 4 [facility] [address] [place] [address] Cuate Mcmullen MD [address] [place] [address] [address] CATES [facility] [address] [place] [address] Social History Tobacco Use Types [...] on file Legal Sex Female 1:09 AM C ARCHITECT Gender Identity Not on file Sexual Orientation Not on file 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 documented as of this encounter Miscellaneous Notes * Telephone Encounter - Kalyani Covarrubias - 04/10/2022 4:08 PM CDT Patient left message for you to call her back--has some questions documented in this encounter Plan of Treatment Not on file documented as of this encounter Visit Diagnoses Not on filedocumented in this encounter Care Teams Weaving Teacher Relationship Specialty [place] [address] [address] [facility] [address] [address] PCP - General Family Medicine 02/21/19 Roya Andre PA [address] [place] [address] [address]OS [address] [place] [address] Physician Metal Trim Erector Orthopedic Surgery 04/09/22 documented as of this encounter
--- OUTSIDE RECORDS SUMMARY | 2024-08-09 23:30 | XMS_ITS | Encounter Summary ---
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 Triglycerides 247(H) <=149 mg/dL [facility] ([facility]) Comment: Interpretive Data Ages < or = [...] Data was last revised on 2018. HDL 41 >=40 mg/dL [facility] ([facility]) Comment: Interpretive Data Ages < or = [...] was last revised on 2018. LDL, calculated 148(H) <=129 mg/dL [facility] ([facility]) Comment: Interpretive Data Ages < or = [...] was last revised on 2018. Non-HDL Cholesterol 197 mg/dL [facility] ([facility]) Comment: Interpretive Data Ages < or = [...] was last revised on 2018. Chol/HDL ratio 6 [facility] ([facility]) Blood 03/26/2022 12:4 5 PM CDT 03/26/2022 1:48 PM CDT us Charly Olson MD LAB BLOOD ORDERABLES Final Res ult [facility] ([facility]) 1 [facility] [place] [address] * Hepatic function panel (03/26/2022 12:45 PM CDT) Bilirubin, total 0.2 0.1 - 1.2 mg/dL [facility] ([facility]) Bilirubin, direct <0.2 0.1 - 0.3 mg/dL [facility] ([facility]) Protein, pl 7.2 6.5 - 8.5 g/dL [facility] ([facility]) Albumin 4.5 3.5 - 5.0 g/dL [facility] ([facility]) Alk phos 62 40 - 130 Units/L [facility] ([facility]) ALT 20 7 - 45 Units/L [facility] ([facility]) AST 19 10 - 45 Units/L [facility] ([facility]) Blood 03/26/2022 12:4 5 PM CDT 03/26/2022 1:48 PM CDT us Charly Olson MD LAB BLOOD ORDERABLES Final Res ult [facility] ([place]) 1 [facility] Department [place] [address] documented in this encounter Visit Diagnoses Diagnosis Statin intolerance documented in this encounter Care Teams Retention Manager Relationship Specialty [place] [address] [address] [facility] [address] [address] PCP - General Family Medicine 02/21/19 documented as of this encounter
--- OUTSIDE RECORDS SUMMARY | 2024-08-09 23:30 | XMS_ITS | Encounter Summary ---
Author Organization [facility] Healthcare Address [address] [place] [address] Care Team Providers Care Impregnator Operator Name Role Phone Cassius Ortega NP Primary Care Provider [phone] Reason for Referral * Diagnostic Imaging (Routine) - Closed Specialty Diagnoses / Procedures Referred By Cara alvarez Referred To Contact Diagnoses Other forms of dyspnea Procedures XR Chest Pa Lateral 2 Views Timothy Crouch MD [address] [place], [place] [id number] Phone: tel: fax: [address] [address] Referral ID Status Reason Start Date Expiration Date Visits Re quested Visits Authorized [id number] Closed 03/04/2022 04/03/2023 1 1 Reason for Visit * Diagnostic Imaging (Routine) - Closed Specialty Diagnoses / Procedures Referred By Cara alvarez Referred To Contact Diagnoses Other forms of dyspnea Procedures XR Chest Pa Lateral 2 Views Timothy Crouch MD [address] [place] [address] Phone: tel: fax: [address] [address] Referral ID Status Reason Start Date Expiration Date Visits Re quested Visits Authorized [id number] Closed 03/04/2022 04/03/2023 1 1 Encounter Details Date Type Department Care Team (Latest Contact Info) Description 03/04/2022 12:13 PM CDT - 03/04/2022 11:59 PM CDT Hospital Encounter [facility] Diagnostic Imaging [address] [id number] [place] [address] [facility] [address] [place] [address] Other forms of dyspnea Discharge Disposition: Discharge to home or self [...] on file 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 Gender Identity Not on file Sexual Orientation Not on file 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 documented as of this encounter Medications at Time of Discharge albuterol HFA (PROVENTIL HFA,VENTOLIN HFA,PROAIR HFA) 90 mcg/actuation inhaler INHALE 2 PUFFS BY MOUTH EVERY 6 HOURS NEEDED FOR WHEEZING 8.5 g 1 01/13/2022 03/31/2022 atorvastatin (LIPITOR) 10 mg tablet TAKE 1 TABLET BY MOUTH EVERY DAY 90 tablet 12/30/2021 03/26/2022 citalopram (CeleXA) 40 mg tablet TAKE 1 TABLET BY MOUTH EVERY MORNING 90 tablet 12/30/2021 03/27/2022 levothyroxine (SYNTHROID) 175 mcg tablet TAKE 1 TABLET BY MOUTH EVERY DAY 90 tablet 12/30/2021 03/27/2022 loratadine (CLARITIN) 10 mg tablet Take 10 mg by mouth daily 09/25/2021 03/31/2022 losartan (COZAAR) 100 mg tablet TAKE 1 TABLET BY MOUTH EVERY DAY 90 tablet 1 10/01/2021 03/27/2022 promethazine-cod eine (PHENERGAN with CODEINE) 1.25-2 mg/mL syrup Take 5-10 mL by mouth every 4 (four) hours as needed for cough 120 mL 12/15/2021 03/31/2022 documented as of this encounter Discharge Disposition Disposition Code Departure Means Destination Discharge to home or self care documented in this encounter Plan of Treatment Not on file documented as of this encounter Procedures Procedure Name Priority Date/Time Associated Diagnosis Comments XR CHEST PA LATERAL 2 VIEWS Schedule Routine, Read Routine (OP Routine) 03/04/2022 12:19 PM CDT Other forms of dyspnea documented in this encounter Results * XR Chest Pa Lateral 2 Views (03/04/2022 12:19 PM CDT) Anatomical Region Laterality Modality Body, Chest N/A Computed Radiogr aphy 03/04/2022 12:2 0 PM CDT Impressions 03/04/2022 12:20 PM CDT NO ACUTE PULMONARY CHANGE. Electronically signed by: Александр Underwood M.D. Narrative 03/04/2022 12:20 PM CDT EXAMINATION: XR CHEST PA LATERAL 2 VIEWS HISTORY: Dyspnea ORDER DATE: 03/04/2022 12:15 PM FINDINGS: The lungs are clear of infiltrate. ??The cardiac and mediastinal outlines are unremarkable. There are no significant pleural effusions . No significant abnormalities are noted in the spine or remainder of the bony thorax. Procedure Note Александр Underwood MD - 03/04/2022 EXAMINATION: XR CHEST PA LATERAL 2 VIEWS HISTORY: Dyspnea ORDER DATE: 03/04/2022 12:15 PM FINDINGS: The lungs are clear of infiltrate. The cardiac and mediastinal outlines are unremarkable. There are no significant pleural effusions . No significant abnormalities are noted in the spine or remainder of the bony thorax. IMPRESSION: NO ACUTE PULMONARY CHANGE. Electronically signed by: Александр Underwood M.D. Timothy Crouch MD IMG XR PROCEDURES Final Result documented in this encounter Visit Diagnoses Diagnosis Other forms of dyspnea documented in this encounter Care Teams Impregnator Operator Relationship Specialty [place] [address] [facility] [facility] [address] [address] PCP - General Family Medicine 02/21/19 documented as of this encounter
--- OUTSIDE RECORDS SUMMARY | 2024-08-09 23:30 | XMS_ITS | Encounter Summary ---
Author Organization [facility] Address [address] [facility] [address] [place] [address] Care Team Providers Care Strategic Planning Analyst Name Role Phone Cassius Ortega NP Primary Care Provider [phone] Roya Andre Unavailable [phone] Reason for Visit * Reason Onset Date Comments disability paperwork 04/13/2022 Encounter Details Date Type Department Care Team (Late st Contact Info) Description 04/13/2022 Telephone [facility] Orthopedics and Sports Medicine [address] [place] [address] [address], [place] [address] Minal [place], [place] disability paperwork Social History Tobacco Use Types Packs/Day Years [...] on file 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 documented in this encounter Plan of Treatment Not on file documented as of this encounter Visit Diagnoses Not on filedocumented in this encounter Care Teams Strategic Planning Analyst Relationship Specialty [place] [address] [address] [facility] [address] [address] PCP - General Family Medicine 02/21/19 Roya Andre PA [address] [place] [address] [facility] [address] [place] [address] Physician Marketing Strategy Lead Orthopedic Surgery 04/09/22 documented as of this encounter
--- OUTSIDE RECORDS SUMMARY | 2024-08-09 23:30 | XMS_ITS | Encounter Summary ---
Author Organization [facility] Address [address] [facility] [address] [place] [address] Care Team Providers Care Gas Generator Operator Name Role Phone Cassius Ortega NP Primary Care Provider [phone] Encounter Details Date Type Department Care Team (Late st Contact Info) Description 03/26/2022 Orders Only [place] [employer] Supervisor [address] [facility] [address] [place] [address] Charly Olson MD [address] [place] [address] [address] Statin intolerance (Primary Dx) Social History Tobacco Use Types [...] on file 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 Olson patient sent him a message documented in this encounter Plan of Treatment Not on file documented as of this encounter Results * Hepatic function panel (03/26/2022 12:45 PM [...] Final Res ult [facility] ([facility]) [address] [facility] Department [place] [address] * (ABNORMAL) Lipid panel (03/26/2022 12:45 PM CDT) [facility] Cholesterol 238(H) 30 - 199 mg/dL [facility] [...] revised on 2018. Non-HDL Cholesterol 197 mg/dL [facility] ([facility]) Comment: Interpretive Data [...] last revised on 2018. Chol/HDL ratio 6 [facility] ([facility]) Blood 03/26/2022 12:4 5 PM CDT 03/26/2022 1:48 PM CDT us Charly Olson MD LAB BLOOD ORDERABLES Final Res ult [facility] ([place]) [address] [facility] Department [place] [address] documented in this encounter Visit Diagnoses Diagnosis Statin intolerance- Primary documented in this encounter Discontinued Medications Medication Sig Discontinue Reason Start Date End Da te atorvastatin (LIPITOR) 10 mg tablet TAKE 1 TABLET BY MOUTH EVERY DAY Side effects 12/30/2021 03/26/2022 documented as of this encounter Care Teams Gas Generator Operator Relationship Specialty [place] [address] [address] [facility] [address] [address] PCP - General Family Medicine 02/21/19 documented as of this encounter
--- OUTSIDE RECORDS SUMMARY | 2024-08-09 23:30 | XMS_ITS | Encounter Summary ---
Author Organization [facility] Healthcare Address [address] [place], [place] [address] Care Team Providers Care Marketing Co Op Name Role Phone Cassius Ortega NP Primary Care Provider [phone] Reason for Referral * Diagnostic Imaging (Routine) - Closed Specialty Diagnoses / Procedures Referred By Cara avlarez Referred To Contact Diagnoses Encounter for screening mammogram for malignant neoplasm of breast Procedures Screening Mammogram Bilateral W Kelly Madera MD [address] [facility] [phone] [place] [address] Phone: tel: fax: [address] [address] Referral ID Status Reason Start Date Expiration Date Visits Re quested Visits Authorized [id number] Closed 01/22/2022 02/21/2023 1 1 Reason for Visit * Diagnostic Imaging (Routine) - Closed Specialty Diagnoses / Procedures Referred By Cara alvarez Referred To Contact Diagnoses Encounter for screening mammogram for malignant neoplasm of breast Procedures Screening Mammogram Bilateral W Kelly Madera MD [address] [facility] [phone] [place] [address] Phone: tel: fax: [address] [address] Referral ID Status Reason Start Date Expiration Date Visits Re quested Visits Authorized [id number] Closed 01/22/2022 02/21/2023 1 1 Encounter Details Date Type Department Care Team (Latest Contact Info) Description 01/22/2022 10:39 AM CDT - 01/22/2022 11:59 PM CDT Hospital Encounter [facility] Imaging and Radiology [address] [place] [address] Kelly Irizarry MD [address] 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 FINAL ASSESSMENT: BI-RADS Category 1: Negative. RECOMMENDATION: Recommend return for annual screening mammogram in 12 months. ?? Electronically signed by: Ana Reinoso 01/22/2022 12:53 PM CDT EXAMINATION: BILATERAL SCREENING MAMMOGRAM COMPARISON: Multiple prior studies, most recently 06/20/2020 and dating back to 02/16/2014. TECHNIQUE: Full-field 2D and digital breast tomosynthesis (DBT) images were obtained. CAD was utilized. BREAST PARENCHYMAL COMPOSITION: ??There are scattered areas of fibroglandular density. FINDINGS: There is no suspicious mass, calcification, or distortion in either breast. There has been no significant interval change from the prior study. us Kelly Maria Irizarry MD IMG MAMMO PROC EDURES Final Result documented in this encounter Visit Diagnoses Diagnosis Encounter for screening mammogram for malignant neoplasm of breast documented in this encounter Care Teams Marketing Co Op Relationship Specialty [place] [address] [address] [address] PCP - General Family Medicine 02/21/19 documented as of this encounter
--- OUTSIDE RECORDS SUMMARY | 2024-08-09 23:30 | XMS_ITS | Encounter Summary ---
Author Organization [facility] Medical Group Address [address] [facility] [address] [place] [address] Care Team Providers Care Lead Software Test Engineer Name Role Phone Cassius Ortega NP Primary Care Provider [phone] Encounter Details Date Type Department Care Team (Late st Contact Info) Description 03/27/2022 Orders Only [place] [employer] [place] [address] [facility] [address] [place] [address] Charly Olson MD [address] [place] [address] [address] CAMPOS [address] [place] [address] Social History Tobacco Use Types Packs/Day Years [...] on file 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 Gender Identity Not on file Sexual Orientation Not on file 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 documented as of this encounter Ordered Prescriptions Prescription Sig Dispense Quantity Refills Last Filled Start Date End Date alirocumab (Praluent Pen) 150 mg/mL pen injector Inject 150 mg under the skin every 14 (fourteen) days 6 mL 1 03/27/2022 05/14/2022 documented in this encounter Plan of Treatment Not on file documented as of this encounter Visit Diagnoses Not on filedocumented in this encounter Discontinued Medications Medication Sig Discontinue Reason Start Date End Da te evolocumab (REPATHA) syringe syringeIndications:Statin intolerance Inject 1 mL (140 mg total) under the skin every 14 (fourteen) days Alternate therapy 03/26/2022 03/27/2022 documented as of this encounter Care Teams Lead Software Test Engineer Relationship Specialty [place] [address] [address] [facility] [address] [address] PCP - General Family Medicine 02/21/19 documented as of this encounter
--- OUTSIDE RECORDS SUMMARY | 2024-08-09 23:30 | XMS_ITS | Encounter Summary ---
Author Organization [facility] Medical Group Address [address] [facility] [address] [place] [address] Care Team Providers Care Hide Dyer Name Role Phone Cassius Ortega NP Primary Care Provider [phone] Reason for Visit * Reason Onset Date Comments Medical Question/Miscellaneous 04/01/2022 Encounter Details Date Type Department Care Team (Late st Contact Info) Description 04/01/2022 Telephone Family Care at [address] [address] Cassius Ortega NP [address] [place] [address] [address] Medical Question/Miscellaneous Social History Tobacco Use Types Packs/Day Years [...] on file 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 Gender Identity Not on file Sexual Orientation Not on file 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 Please f/u. Caller???s Call back #: [phone] Does message need to be routed?Yes-Action Needed documented in this encounter Plan of Treatment Not on file documented as of this encounter Visit Diagnoses Not on filedocumented in this encounter Care Teams Hide Dyer Relationship Specialty [place] [address] [facility] [address] [place] [address] PCP - General Family Medicine 02/21/19 documented as of this encounter
--- OUTSIDE RECORDS SUMMARY | 2024-08-09 23:30 | XMS_ITS | Encounter Summary ---
Author Organization [facility] Address [address] [facility] [address] [place] [address] Care Team Providers Care Antisqueak Filler Name Role Phone Cassius Ortega NP Primary Care Provider [phone] Roya Andre Unavailable [phone] Reason for Visit * Reason Comments Post-op Encounter Details Date Type Department Care Team (Latest Contact Info) Description 04/22/2022 1:15 PM CDT Office Visit [facility] Orthopedics and Sports Medicine [address] [facility] [address] [place] [phone] Roya Andre PA [address] [place] [address] [address] [place] [address] Aftercare following surgery of the musculoskeletal system [...] on file 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 Gender Identity Not on file Sexual Orientation Not on file 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 Post-Op Visit Note HPI: Patient is 2 weeks s/p right shoulder arthroscopy with subacromial decompression, distal clavicle excision, subpec biceps tenodesis, and rotator cuff debridement. Pain is well controlled. Patient is currently taking Tylenol or Aleve prn for pain. They report compliance with sling and HEP/activity re commendations. She has started outpatient PT at [facility] in [facility] Vital signs: height is 165.1 cm (5' 5 ) and weight is 101.2 kg (223 lb). Her blood pressure is 123/74 and her pulse is 85. Exam: Well approximated healing post operative portal holes. No active erythema, draining, or signs of infection present. Neurovascular status is intact. Full AROM of elbow, wrist and hand. PROM: 100 flexion; 80 abduction Assessment: Diagnosis Plan 1. Aftercare following surgery of the musculoskeletal system 2. S/P arthroscopy of right shoulder Plan: Procedure, medications and post operative expectations reviewed with patient Continue PT Discussed RTW; will likely return 6-8 weeks. 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 HEP reviewed as were activity restrictions/recommendations Follow up in 4 weeks and reassess for possible RTW. Patient demonstrates atrophy and weakness of right shoulder and would benefit from home E stim device. Questions were answered. Patient expressed full understanding and agreement of plan. Roya Andre PA-C documented in this encounter Plan of Treatment Not on file documented as of this encounter Visit Diagnoses Diagnosis Aftercare following surgery of the musculoskeletal system- Primary Aftercare following surgery of the musculoskeletal system, NEC S/P arthroscopy of right shoulder documented in this encounter Care Teams Antisqueak Filler Relationship Specialty Start [place] [address] [address] [facility] [address] [address] PCP - General Family Medicine 02/21/19 Roya Andre PA [address] [place] [address] [address], [place] [address] Physician Heating Fixture Tender Orthopedic Surgery 04/09/22 documented as of this encounter
--- OUTSIDE RECORDS SUMMARY | 2024-08-09 23:30 | XMS_ITS | Encounter Summary ---
Author Organization [facility] Address [address] [place] [address] Care Team Providers Care Medical Superintendent Name Role Phone Cassius Ortega NP Primary Care Provider [phone] Roya Andre Unavailable Encounter Details Date Type Department Care Team (Late st Contact Info) Description 04/09/2022 9:50 AM CDT - 04/09/2022 12:10 PM CDT Surgery [facility] Operating Room [address] [place] [address] Cuate Mcmullen MD [address] [place] [address] DR CATES [address] [place] [address] Right shoulder arthroscopy, distal claviculectomy including distal articular surface, decompression of subacromial space with partial acromioplasty with coracoacromial release, and subpec biceps tenodesis Surgery Details Date/Time Status Location OR Service Patient Class Case Class Case Type Trauma Case? 04/09/2022 9:50 AM Posted [facility] OPERATING RO[facility] OR Orthopaedics Outpatient Elective Panel 1 Procedure LRB Anes Op Region Wound Class Comments Right shoulder arthroscopy, distal claviculectomy including distal articular surface, decompression of subacromial space with partial acromioplasty with coracoacromial release, and subpec biceps tenodesis Right General with other Regional Class I - Clean on q pain pump Surgeon Surgeon Role Service Panel Cuate Mcmullen MD Primary Orthopaedics 1 Special Needs arthroscopy equipment, Montalvo/Nephew vapor, Breg Sling shot 2 sling with abduction pillow, NMES, Montalvo/Nephew anchors, Spider, Arthrex anchors, beach chair, polar care, biceps tenodesis set Arthrex on hold (subpec) documented in this encounter Social History Tobacco [...] on file 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 Gender Identity Not on file Sexual Orientation Not on file 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 documented as of this encounter Last Filed Vital Signs Vital Sign Reading Time Taken Comments Blood Pressure 123/59 04/09/2022 12:10 PM CDT Pulse 85 04/09/2022 12:10 PM CDT Temperature 36.5 ??C (97.7 ??F) 04/09/2022 1 1:36 AM CDT Respiratory Rate 26 04/09/2022 12:1 0 PM CDT Oxygen Saturation 94% 04/09/2022 12: 10 PM CDT Inhaled Oxygen Concentration - - Weight 101.3 kg (223 lb 5.2 oz) 04/09/2022 8:28 AM CDT Height 165.1 cm (5' 5 ) 04/09/2022 8:28 AM CDT Body Mass Index 37.16 04/09/2022 8:28 AM CDT documented in this encounter Discharge Instructions * Attachments The following attachments cannot be sent through Care Everywhere. * General Anesthesia (Discharge Care) (Zambian) * Ascorbic Acid (Vitamin C) (By mouth) ([place]ian) * Vitamin D (By mouth) ([place]ian) * Ondansetron (By mouth, Into the mouth) ([place]ian) * Oxycodone/Acetaminophen (By mouth) ([place]ian) * Senna (By mouth) ([place]ian) * Peripheral Nerve Block (Discharge Care) ([place]ian) documented in this encounter Medications at Time [...] Based on the above findings, I consider Олег Paz to be an acceptable risk for [...] Art/Arabella barth 04/02 BS) Source Note - FaizanKelechiNAWAF - 04/08/2022 4:17 PM CDT Images from [...] getting worse she like discuss surgical options. Service Center Supervisor completed by using M*Modal Fluency Direct speaking [...] Acute respiratory failure requiring reintubation (CMS/HCC) ([facility]), Breast cancer (CMS/HCC) ([facility]), History of chemotherapy, History of radiation therapy, [...] Osteoarthrosis of the acromioclavicular joint. Assessment Assessment/Plan Олег was seen today for pain. Diagnoses and [...] getting worse she like discuss surgical options. Service Center Supervisor completed by using M*Modal Fluency Direct speaking [...] history of Acute respiratory failure requiring reintubation ([facility]) ([facility]), Breast cancer ([facility]) ([facility]), History of chemotherapy, History of radiation therapy, [...] Osteoarthrosis of the acromioclavicular joint. Assessment Assessment/Plan Олег was seen today for pain. Diagnoses and [...] understood these risks and agreed to proceed with surgery as described above and informed consent was established in the office today. TARIK Strong MD Reviewed and no changes to surgical plan since patient was last evaluated and consent was established. Kelechi Gloria NP Cosigned by Cuate Mcmullen MD at 04/09/2022 8:26 AM CDT documented in this encounter Nursing Notes * Kelly Moncada RN - 03/31/2022 4:34 PM CDT 03/31/22 6097 Sleep Apnea Questions Have you ever had [...] included. Operative Report SURGEON: Cuate Mcmullen MD Director Of Promotions: Gladys Mcgraw Scrub: Mc Vaughn RN; Tamara [...] Implant Name Type Inv. Item Serial No. Field Enumerator Lot No. LRB No. Used Action [employer] SET IMPLANT AR[employer]REX FIBERTAK BICEPS STERILE LATEX FREE AR-3670 - [id number] [employer] SET IMPLANT ARTHREX FIBERTAK BICEPS STERILE LATEX FREE AR-3670 [employer] [id number] Right 1 Implanted Estimated Blood Loss: 10 [...] Mcmullen MD Date: 04/09/2022 Time: 11:57 AM Service Center Supervisor completed by using M*Modal Fluency Direct speaking software, therefore, transcriptionvariances may occur. * Perioperative Nursing Note - Kelly Moncada RN - 03/31/2022 4:32 PM CDT Covid screening on 04-07-22 here at [facility] AT [facility]. * Pre-Procedure Instructions - Kelly Moncada RN - 03/31/2022 4:25 PM CDT We are pleased that you and your doctor have chosen [facility] for your surgery. We hope that the [...] morning of surgery Use no make-up, nail grenadian, lotions, oils or powders on your skin. [...] Nontraumatic incomplete tear of right rotator cuff Impingement syndrome of right shoulder Biceps tendinitis [...] 0900, For 1 dose, Pre-Op, Indications: Pre-Emptive AnalgesiaIndications:Pre- Emptive Analgesia Given 04/09/2022 8:39 AM CDT 1,000 [...] Site: Interscalene, Catheter Side: Right, Indications: Postoperative PainIndications:Postopera tive Pain New Bag 04/09/2022 11:56 AM CDT 6 mL/hr 6 mL/hr celecoxib (CeleBREX) capsule 200 mg 200 mg, oral, Once, On Jacquie 04/09/22 at 0900, For 1 dose, Pre-Op, Indications: Pre-Emptive PainIndications:Pre-Empti ve Pain Given 04/09/2022 8:39 AM CDT 200 mg clindamycin (CLEOCIN) 900 mg/50 mL in dextrose 5% (premix) 900 mg 900 mg, intravenous, Once, On Jacquie 04/09/22 at 0900, For 1 dose, Pre-Op, Indications: Prophylaxis, SurgicalIndications:Proph ylaxis, Surgical New Bag 04/09/2022 8:41 AM CDT 900 mg EPINEPHrine 3 mg in Lactated Ringer's (LR) 3,000 mL irrigation solution irrigation, Once, On Jacquie 04/09/22 at 0900, For 1 dose, Intra-Op, Bag #1 Given 04/09/2022 10:35 AM CDT 3,000 mL Surgical Site EPINEPHrine 3 mg in Lactated Ringer's (LR) 3,000 mL irrigation solution irrigation, Once, On Jacquie 04/09/22 at 0900, For 1 dose, Intra-Op, Bag #2 Given 04/09/2022 10:35 AM CDT 3,000 mL Surgical Site Lactated Ringer's (LR) infusion 30 mL/hr, intravenous, Continuous, Starting on Jacquie 04/09/22 at 0900, Pre-Op, Restarted 04/09/2022 9:43 AM CDT New Bag 04/09/2022 8:39 AM CDT 30 mL/hr 30 mL/hr Lactated Ringer's (LR) irrigation As needed, Starting on Jacquie 04/09/22 at 1113, Intra-Op Given 04/09/2022 11:13 AM CDT 3,000 mL Surgical Site lidocaine-EPINEPHrine (XYLOCAINE with EPI) 1 %-1:200,000 preservative free injection As needed, Starting on Jacquie 04/09/22 at 1036, Intra-Op, Indications: Administration of Local AnesthesiaIndications:Adm inistration of Local Anesthesia Given 04/09/2022 10:36 AM CDT 20 mL Surgical Site scopolamine patch 72 hour 1 patch 1 [...] within 120 minutes of incision., Indications: Prophylaxis, SurgicalIndications:Proph ylaxis, Surgical New Bag 04/09/2022 9:25 AM CDT [...] injection - ADS Override Pull 1 04/09/2022 famotidine (PEPCID) injection 20 mg 1 04/09 fentaNYL (SUBLIMAZE) 50 mcg/ mL preservative free injection - ADS Override Pull 2 04/09/2022 fentaNYL (SUBLIMAZE) preserv ative free injection 25 mcg 1 04/09/2022 midazolam (VERSED) 1 mg/mL p [...] 04/09 documented in this encounter Care Teams Medical Superintendent Relationship Specialty Start [place] [address] [facility] [address] [address] PCP - General Family Medicine 02/21/19 Roya Andre PA [address] [place] [address] DR CAMPOS [address] [place] [id number] Physician Coil Maker Orthopedic Surgery 04/09/22 documented as of this encounter
--- OUTSIDE RECORDS SUMMARY | 2024-08-09 23:30 | XMS_ITS | Encounter Summary ---
Author Organization [facility] Address [address] [address] Care Team Providers Care Systems Analyst Engineer Name Role Phone Cassius Ortega NP Primary Care Provider [phone] Roya Andre Unavailable Reason for Visit * Reason Onset Date Comments Post-op 04/10/2022 Encounter Details Date Type Department Care Team (Late st Contact Info) Description 04/10/2022 Telephone [facility] Orthopedic and Sports Medicine [address] [place] [id number] Eliane Mattson ATC Post-op Social History Tobacco Use Types Packs/Day Years [...] on file Legal Sex Female 1:09 AM BREAKER UP Gender Identity Not on file Sexual Orientation Not on file 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 She informed me that she re-read her discharge paperworkand she has no questions at this time. Pt denies s/s of infection at this time. Pt did not have PO PT set up so an order was faxed to [facility] per pt's request. PO appointment verified. She is to call the office with any issues. Understanding with POC was met and call ended. * Telephone Encounter - Eliane Mattson ATC - 04/10/2022 1:44 PM CDT I called the pt and left a VM asking her to call the office back with an update for PO day 1. documented in this encounter Plan of Treatment Not on file documented as of this encounter Visit Diagnoses Diagnosis S/P arthroscopy of right shoulder- Primary documented in this encounter Care Teams Systems Analyst Engineer Relationship Specialty [place] [address] [facility] [address] [place] [address] PCP - General Family Medicine 02/21/19 Roya Andre PA [address] [place] [address] [address], [place] [address] Physician Strip Cleaner Orthopedic Surgery 04/09/22 documented as of this encounter
--- OUTSIDE RECORDS SUMMARY | 2024-08-09 23:30 | XMS_ITS | Encounter Summary ---
Author Organization [facility] Address [address] [place] [address] Care Team Providers Care Senior International Tax Manager Name Role Phone Cassius Ortega NP Primary Care Provider [phone] Encounter Details Date Type Department Care Team (Late st Contact Info) Description 04/07/2022 9:50 AM CDT Lab [address] [phone] Cuate Mcmullen MD [address] [place] [address] [address] CATES [address] [address] Impingement syndrome of right shoulder; Biceps tendinitis on right; Arthritis of right acromioclavicular joint; Nontraumatic incomplete tear of right rotator cuff Discharge Disposition: Discharge to home or self [...] on file 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 ??Testing performed by the [facility] Molecular Infectious Disease Laboratory. The 2019-Novel Coronavirus [...] on September 05, 2020. Testing performed by: [facility], [address] [facility], [place]., [address] Nasopharyngeal 04/07/2022 9: 48 AM CDT 04/07/2022 3:15 PM CDT Narrative [facility] ([facility]) - 04/08/2022 12:24 AM CDT Is the patient experiencing any symptoms consistent with COVID (eg. Fever, cough, shortness of breath)?->No What is the reason for testing?->Screening prior to scheduled??procedure or surgery??(Batched) us Cuate Mcmullen MD LAB MICROBIOLOGY - GENERAL O RDERACHASE Final Result [facility] ([place]) 1 [facility] Department [place] [address] documented in this encounter Visit Diagnoses Diagnosis Impingement syndrome of right shoulder Biceps tendinitis on right Arthritis of right acromioclavicular joint Nontraumatic incomplete tear of right rotator cuff documented in this encounter Care Teams Senior International Tax Manager Relationship Specialty [place] [address] [address] [facility] [address] [address] PCP - General Family Medicine 02/21/19 documented as of this encounter
--- OUTSIDE RECORDS SUMMARY | 2024-08-09 23:30 | XMS_ITS | Encounter Summary ---
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 documented in this encounter Plan of Treatment Not on file documented as of this encounter Visit Diagnoses Not on filedocumented in this encounter Care Teams Strategic Buyer Relationship Specialty [place] [address] [address] [facility] [address] [address] PCP - General Family Medicine 02/21/19 documented as of this encounter
--- OUTSIDE RECORDS SUMMARY | 2024-08-09 23:31 | XMS_ITS | Encounter Summary ---
Author Organization [facility] Address [address] [address] Care Team Providers Care Switchgear Repairer Name Role Phone Cassius Ortega NP Primary Care Provider [phone] Reason for Referral * Diagnostic Imaging (Routine) - Closed Specialty Diagnoses / Procedures Referred By Contac t Referred To Contact Diagnoses Right shoulder pain, unspecified chronicity Procedures XR Shoulder Right 2 or More Views Cuate Mcmullen MD [address] [facility] [address] [place] [address] [address] Phone: tel: fax: [facility] Referral ID Status Reason Start Date Expiration Date Visits Re quested Visits Authorized [id number] Closed 09/12/2021 10/12/2022 1 1 CE FILLER Reason for Visit * Reason Comments Pain Encounter Details Date Type Department Care Team (Latest Contact Info) Description 09/12/2021 10:00 AM TIERCE FILLER Office Visit [facility] Orthopedic and Sports Medicine [address] [place] [phone] Cuate Mcmullen MD [address] [facility] [address] [place] [address] [place] [address] Right shoulder pain, unspecified chronicity (Primary Dx); Pre-operative exam; Impingement syndrome of right shoulder; Biceps tendinitis of right upper extremity; Arthritis of right acromioclavicular joint; Nontraumatic incomplete tear of right rotator cuff Social History Tobacco Use Types Packs/Day Years Used Date Smoking Tobacco: Never Smokeless Tobacco: Never Alcohol Use Standard Drinks/Week Comments Yes 0 (1 standard drink = 0.6 oz pur e alcohol) socially PHQ-2 Answer Date Recorded PHQ-2 Total Score (If total score is 3 or more points, staff should administer the PHQ-9) 2 12/04/2020 Comments No Sex and Gender Information Value Date Recorded Sex Assigned at Not on file Legal Sex Female 1:09 AM TIERCE FILLER Gender Identity Not on file Sexual Orientation Not on file 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 documented as of this encounter Last Filed Vital Signs Vital Sign Reading Time Taken Comments Blood Pressure 129/1 09/12/2021 10:05 AM TIERCE FILLER Pulse 63 09/12/2021 10:05 AM TIERCE FILLER Temperature - - Respiratory Rate - - Oxygen Saturation - - Inhaled Oxygen Concentration - - Weight 101.1 kg (222 lb 14.4 oz) 2021 10:05 AM TIERCE FILLER Height 165.1 cm (5' 5 ) 09/12/2021 10:0 5 AM TIERCE FILLER Body Mass Index 37.09 09/12/2021 10:05 AM TIERCE FILLER documented in this encounter Progress Notes * Cuate Mcmullen MD - 09/12/2021 10:00 AM CST Images from the original note were [...] getting worse she like discuss surgical options. Vision Mixer completed by using M*Modal Fluency Direct speaking [...] history of Acute respiratory failure requiring reintubation ([facility]) ([facility]), Breast cancer ([facility]) ([facility]), History of chemotherapy, History of [...] 2 acromion AC joint arthritis COMPARISON: 09/03/2014 ?? TECHNIQUE: Axial proton density SPAIR and T1; Coronal T2 fat sat, proton density, and proton density SPAIR; Sagittal T2. ?? FINDINGS: Again noted is thickening and increased [...] of the labral capsular complex is seen. ?? IMPRESSION: ?? 1. Tendinosis or partial tear of the supraspinatus tendon. 2. Osteoarthrosis of the acromioclavicular joint. Assessment/Plan Олег was seen today for pain. [...] in the office today. TARIK Strong MD CE FILLER documented in this encounter Plan of Treatment Not on file documented as of this encounter Procedures Procedure Name Priority Date/Time Associated Diagnosis Comments XR SHOULDER RIGHT 2 OR MORE VIEWS Schedule Routine, Read Routine (OP Routine) 09/12/2021 10:15 AM TIERCE FILLER Right shoulder pain, unspecified chronicity documented in this encounter Results * XR Shoulder Right 2 or More Views (09/12/2021 10:15 AM TIERCE FILLER) Anatomical Region Laterality Modality Upper Extremities, Shoulder Right Digi joe Radiography Narrative 09/12/2021 10:54 AM TIERCE FILLER Four views right shoulder show no fracture subluxation dislocation type 2 acromion AC joint arthritis us Cuate Mcmullen MD IMG XR PROCEDURES Final Resu lt documented in this encounter Visit Diagnoses Diagnosis Right shoulder pain, unspecified chronicity- Primary Pre-operative exam Unspecified pre-operative examination Impingement syndrome of right shoulder Biceps tendinitis of right upper extremity Arthritis of right acromioclavicular joint Nontraumatic incomplete tear of right rotator cuff documented in this encounter Care Teams Switchgear Repairer Relationship Specialty [place] [address] [address] [facility] [address] [address] PCP - General Family Medicine 02/21/19 documented as of this encounter
--- OUTSIDE RECORDS SUMMARY | 2024-08-09 23:31 | XMS_ITS | Encounter Summary ---
Author Organization [facility] Address [address] [facility] [address] [place] [address] Care Team Providers Care Ton Container Shipper Name Role Phone Cassius Ortega NP Primary Care Provider Reason for Visit * Cardiology (Routine) - Closed Specialty Diagnoses / Procedures Referred By Cara alvarez Referred To Contact Diagnoses Palpitations Procedures Event Monitor, 30 Day Event Charly Olson MD Phone: tel: fax: 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 The basic rhythm was sinusrhythm with sinus tachycardia. There were PVCs including ventricular trigeminy. There was no atrialfibrillation or supraventricular tachycardia. There was no ventricular tachycardia. There was no pauses or bradycardic events.. Catheterization there were 53 patient triggered events which were sinusrhythm sinus tachycardia with isolated PVCs. documented in this encounter Plan of Treatment Not on file documented as of this encounter Procedures Procedure Name Priority Date/Time Associated Diagnosis Comments EVENT MONITOR Routine 01/05/2022 9:39 AM CDT Palpitations documented in this encounter Results * Event Monitor, 30 Day Event (01/05/2022 9:39 AM CDT) Anatomical Region Laterality Modality Electrocardiogra phy Charly Olson MD [facility] PROCEDURES Edited Result - Final documented in this encounter Visit Diagnoses Diagnosis Palpitations documented in this encounter Care Teams Ton Container Shipper Relationship Specialty Start [place] [address] [facility] [address] [place] [address] PCP - General Family Medicine 02/21/19 documented as of this encounter
--- OUTSIDE RECORDS SUMMARY | 2024-08-09 23:31 | XMS_ITS | Encounter Summary ---
Author Organization [facility] Medical Group Address [address] [facility] [address] [place] [address] Care Team Providers Care Manager Trust Name Role Phone Cassius Ortega NP Primary Care Provider [phone] Encounter Details Date Type Department Care Team (Late st Contact Info) Description 12/15/2021 10:15 AM CDT Telemedicine Family Care at [address] [address] Cassius Ortega NP [address] [place] [address] [address] Long COVID (Primary Dx); Cough; Fatigue, unspecified type Social History Tobacco Use Types Packs/Day Years [...] on file Legal Sex Female 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 Subjective/Objective Patient ID: Deejay Paz is a 46 y.o. female. Chief Complaint No chief complaint on file. Pt having coughing, congestion, fatigue off and on from July. She tested positive for Covid in August. She has had several rounds of steroid. She states she feels like she never really improved completely. Review of Systems Constitutional: Positive for fatigue. Negative for fever. HENT: Negative for congestion, rhinorrhea and sore throat. Respiratory: Positive for cough and shortness of breath. Negative for chest tightness. Cardiovascular: Negative for chest pain and leg swelling. Gastrointestinal: Negative for abdominal pain and nausea. Endocrine: Negative for cold intolerance and heat intolerance. Neurological: Positive for weakness. Negative for headaches. Psychiatric/Behavioral: Negative for sleep disturbance. Physical Exam Assessment/Plan Diagnoses and all orders for this visit: Long COVID (U09.9) (Primary) Comments: she was referred to the long covid clinic at [facility]. Cough (R05.9) Comments: will get chest xray to check for any other source of cough. get labs also Fatigue, unspecified type (R53.83) Comments: check labs for source of fatigue This was a telemedicine visit with Deejay Paz alone which took place via Telephone No Internet/Computer. During the visit, I was located in the office and the patient was located in her home in the state of [place]. The patient visit started at 1115 and ended at 1145. My total encounter time on 12/15/2021 was 30 minutes which was spent in the activities documented in the note. This includes timespent prior to the visit and after the visit in direct care of the patient. This time does not include time spent in any separately reportable services. The patient: has been informed that the visit may not be secure and acknowledged the information. The option of participating in a telephone or video visit during the COVID-19 [facility] center emergencywas explained to them. After being given an opportunity to ask questions about and discuss this type of visit, they verbally consented to proceeding with the telephone/video visit and understand thatthis service replaces an office visit. documented in this encounter Plan of Treatment Not on file documented as of this encounter Visit Diagnoses Diagnosis Long COVID- Primary Cough Fatigue, unspecified type documented in this encounter Care Teams Manager Trust Relationship Specialty Start [place] [address] JAIR ARNOLD [facility] [address] [address] PCP - General Family Medicine 02/21/19 documented as of this encounter
--- OUTSIDE RECORDS SUMMARY | 2024-08-09 23:31 | XMS_ITS | Encounter Summary ---
Author Organization [facility] Medical Group Address [address] [address] Care Team Providers Care Food Clerk Name Role Phone Cassius Ortega NP Primary Care Provider [phone] Reason for Visit * Cardiology (Routine) - Closed Specialty Diagnoses / Procedures Referred By Contac t Referred To Contact Diagnoses SOB (shortness of breath) Procedures Transthoracic Echo Complete W Doppler/CF Charly Olson MD Phone: tel: fax: [facility] Referral ID Status Reason Start Date Expiration Date Visits Re quested Visits Authorized [id number] Closed 12/18/2021 01/17/2023 1 1 Encounter Details Date Type Department Care Team (Latest Contact Info) Description 01/02/2022 9:00 AM CDT Ancillary Procedure [facility] [address] [address] SOB (shortness of breath) Social History Tobacco Use Types Packs/Day Years [...] on file 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 Gender Identity Not on file Sexual Orientation Not on file 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 documented as of this encounter Plan of Treatment Not on file documented as of this encounter Procedures Procedure Name Priority Date/Time Associated Diagnosis Comments TRANSTHORACIC ECHO (TTE) COMPLETE W DOPPLER/CF WO CONTRAST Routine 01/02/2022 9:38 AM CDT SOB (shortness of breath) documented in this encounter Results * TRANSTHORACIC ECHO (TTE) COMPLETE W DOPPLER/CF WO CONTRAST (01/02/2022 9:38 AM CDT) Anatomical Region Laterality Modality Ultrasound us Charly Olson MD CV ECHO PROCEDURES Final Resul t documented in this encounter Visit Diagnoses Diagnosis SOB (shortness of breath) Shortness of breath documented in this encounter Care Teams Food Clerk Relationship Specialty [place] [address] JAIR ARNOLD [facility] [address] [address] PCP - General Family Medicine 02/21/19 documented as of this encounter
--- OUTSIDE RECORDS SUMMARY | 2024-08-09 23:31 | XMS_ITS | Encounter Summary ---
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 Gender Identity Not on file Sexual Orientation Not on file 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
--- OUTSIDE RECORDS SUMMARY | 2024-08-09 23:31 | XMS_ITS | Encounter Summary ---
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 73 m2 [facility] Comment: Interpretive Data Reference Interval Normal ?>/= [...] interpretive data was last reviewed 2021. Blood 12/15/2021 12:4 4 PM CDT 12/15/2021 5:14 PM CDT us Cassius Ortega NP LAB BLOOD ORDERABLES Final Re sult [facility] [id number] [address] Department [place] [address] * (ABNORMAL) Differential, auto (12/15/2021 12:44 PM CDT) Neutrophil abs 7.8(H) 1.7 - 6.5 K[facility]cumm [facility] Imm gran abs 0.1 0.0 - 0.1 K/cumm [facility] Lymphocyte abs 1.6 0.8 - 3.3 K/cumm [facility] Monocyte abs 0.2 0.2 - 0.8 K/cumm [facility] Eosinophil abs 0.0 0.0 - 0.5 K/cumm [facility] Basophil abs 0.0 0.0 - 0.1 K/cumm [facility] Neutrophil pct 81.1 % [facility] Comment: Interpretive Data Percent cell count reference ranges are not reported, since discordance with absolute values may lead to misinterpretation of CBC data. Current Interpretive Data was last revised on 2017. Imm gran pct 0.6 % [facility] Comment: Interpretive Data Percent cell count reference ranges are not reported, since discordance with absolute values may lead to misinterpretation of CBC data. Current Interpretive Data was last revised on 2017. Lymphocyte pct 16.3 % [facility] Comment: Interpretive Data Percent cell count reference ranges are not reported, since discordance with absolute values may lead to misinterpretation of CBC data. Current Interpretive Data was last revised on 2017. Monocyte pct 1.6 % [facility] Comment: Interpretive Data Percent cell count reference ranges are not reported, since discordance with absolute values may lead to misinterpretation of CBC data. Current Interpretive Data was last revised on 2017. Eosinophil pct 0.1 % [facility] Comment: Interpretive Data Percent cell count reference ranges are not reported, since discordance with absolute values may lead to misinterpretation of CBC data. Current Interpretive Data was last revised on 2017. Basophil pct 0.3 % [facility] Comment: Interpretive Data Percent cell count reference ranges are not reported, since discordance with absolute values may lead to misinterpretation of CBC data. Current Interpretive Data was last revised on 2017. Blood 12/15/2021 12:4 4 PM CDT 12/15/2021 4:40 PM CDT us Cassius Ortega INVESTIGATOR FRAUD LAB BLOOD ORDERABLES Final Re sult [facility] [address] [address] Department [place] [address] * (ABNORMAL) CBC with auto differential (12/15/2021 12:44 PM CDT) WBC 9.7 3.8 - 9.9 K/cumm [facility] Hgb 11.8(L) 11.9 - 15.5 g/dL [facility] Hct 37.1 35.6 - 45.5 % [facility] Plt 275 150 - 400 K/cumm [facility] MPV 9.4 9.1 - 12.[address] [facility] RBC 4.02 3.90 - 5.20 M/cumm [facility] MCV 92.3 81.3 - 96.[address] [facility] MCH 29.4 27.1 - 33.[address] [facility] MCHC 31.8(L) 32.3 - 35.7 g/dL [facility] RDW CV 13.4 11.1 - 14.9 % [facility] RDW SD 45.3 35.7 - 48.[address] [facility] NRBC abs 0.00 0.00 - 0.01 K/cumm [facility] Blood 12/15/2021 12:4 4 PM CDT 12/15/2021 4:40 PM CDT us Cassius Ortega INVESTIGATOR FRAUD LAB BLOOD ORDERABLES Final Re sult [facility] [address] [address] Department [place] [address] * (ABNORMAL) Comprehensive metabolic panel (12/15/2021 12:44 PM CDT) Pathologist [facility] Sodium 138 135 - 145 mmol/L [facility] Potassium, pl 4.0 3.3 - 4.9 mmol/L [facility] Chloride 101 97 - 110 mmol/L [facility] CO2 21(L) 22 - 32 mmol/L [facility] Anion gap 16(H) 2 - 15 mmol/L [facility] BUN 13 8 - 25 mg/dL [facility] Creatinine 0.73 0.60 - 1.10 mg/dL [facility] Glucose 242(H) 70 - 199 mg/dL [facility] Comment: Interpretive Data Fasting glucose >/= 126 [...] classification and Diagnosis of Diabetes Diabetes Care 2017;40 (Suppl. 1):S11. Current interpretive data was last revised 2017. Calcium 9.6 8.5 - 10.3 mg/dL [facility] Bilirubin, total 0.2 0.1 - 1.2 mg/dL [facility] Protein, pl 7.4 6.5 - 8.5 g/dL [facility] Albumin 4.3 3.5 - 5.0 g/dL [facility] Alk phos 62 40 - 130 Units/L [facility] ALT 21 7 - 45 Units/L [facility] AST 19 10 - 45 Units/L [facility] Blood 12/15/2021 12:4 4 PM CDT 12/15/2021 4:40 PM CDT us Cassius Ortega NP LAB BLOOD ORDERABLES Final Re sult [facility] [address] [address] Department [place] [address] documented in this encounter Visit Diagnoses Diagnosis Cough documented in this encounter Care Teams Plant Electrical Engineer Relationship Specialty Start Date End Date Cassius Ortega, NAWAF [address] [address] [place] [address] PCP - General Family Medicine 02/21/19 documented as of this encounter
--- OUTSIDE RECORDS SUMMARY | 2024-08-09 23:31 | XMS_ITS | Encounter Summary ---
Author Organization [facility] Medical Group Address [address] [address] Care Team Providers Care Healthcare Facility Administrator Name Role Phone Cassius Ortega NP Primary Care Provider Reason for Visit * Reason Comments Earache Encounter Details Date Type Department Care Team (Late st Contact Info) Description 12/08/2021 12:45 PM CDT Office Visit Family Care at [address] [address] Cassius Ortega NP [address] [place] [address] [address] Non-recurrent acute serous otitis media of right ear (Primary Dx) Social History Tobacco Use Types [...] on file 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28 12/08/2021 12:45 PM CDT documented in this encounter Ordered Prescriptions Prescription Sig Dispense Quantity Refills Last Filled Start Date End Date predniSONE (DELTASONE) 20 mg tablet Take 2 tablets (40 mg) by mouth daily for 5 days 10 tablet 12/08/2021 documented in this encounter Progress Notes * Cassius Ortega, DRAFTER LANDSCAPE - 12/08/2021 12:45 PM CDT Images from the original note were not included. Subjective/Objective Patient ID: Deejay Paz is a 46 y.o. female. Chief Complaint Earache Pt states she has had pains in her right ear for about a month. She had covid twice and has had earpain after each infection, this time the pains have persisted. She has no fever, no cough, no congestion no rhinorrhea just the ear pains. Review of Systems Constitutional: Negative for fatigue and fever. HENT: Positive for ear pain. Negative for congestion, rhinorrhea and sore throat. Respiratory: Negative for cough, chest tightness and shortness of breath. Cardiovascular: Negative for chest pain and leg swelling. Gastrointestinal: Negative for abdominal pain and nausea. Endocrine: Negative for cold intolerance and heat intolerance. Neurological: Negative for headaches. Psychiatric/Behavioral: Negative for sleep disturbance. Physical Exam Vitals reviewed. Constitutional: Appearance: She is well-developed. HENT: Head: Normocephalic and atraumatic. Right Ear: External ear normal. Tenderness present. A middle ear effusion is present. Left Ear: External ear normal. Nose: Nose [...] Diagnoses and all orders for this visit: Non-recurrent acute serous otitis media of right ear (H65.01) (Primary) Comments: will give afive days course of prednisone and if not better refer to ENT Other orders - predniSONE (DELTASONE) 20 mg tablet; Take 2 tablets (40 mg) by mouth daily for 5 days documented in this encounter Plan of Treatment Not on file documented as of this encounter Visit Diagnoses Diagnosis Non-recurrent acute serous otitis media of right ear- Primary documented in this encounter Care Teams Healthcare Facility Administrator Relationship Specialty Start [place] [address] [address] [address] PCP - General Family Medicine 02/21/19 documented as of this encounter
--- OUTSIDE RECORDS SUMMARY | 2024-08-09 23:31 | XMS_ITS | Encounter Summary ---
Author Organization [facility] Medical [facility] Address [address] [facility] [address] [place] [address] Care Team Providers Care Fish Egg Packer Name Role Phone Cassius Ortega NP Primary Care Provider [phone] Reason for Referral * Cardiology (Routine) - Closed Specialty Diagnoses / Procedures Referred By Contac t Referred To Contact Diagnoses SOB (shortness of breath) Procedures Transthoracic Echo Complete W Doppler/CF Charly Olson MD Phone: tel: fax: [facility] Referral ID Status Reason Start Date Expiration Date Visits Re quested Visits Authorized [id number] Closed 12/18/2021 01/17/2023 1 1 Encounter Details Date Type Department Care Team (Late st Contact Info) Description 12/18/2021 Orders Only [place] Continuous Improvement Manager [address] [facility] [address] [place] [address] Charly Olson MD [address] [place] [address] [address] [place] [id number] SOB (shortness of breath) (Primary Dx) Social History Tobacco Use Types [...] on file 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 Gender Identity Not on file Sexual Orientation Not on file 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 documented as of this encounter Plan of Treatment Not on file documented as of this encounter Results * TRANSTHORACIC ECHO (TTE) COMPLETE W DOPPLER/CF WO CONTRAST (01/02/2022 9:38 AM CDT) Anatomical Region Laterality Modality Ultrasound us Charly Olson MD CV ECHO PROCEDURES Final Resul t documented in this encounter Visit Diagnoses Diagnosis SOB (shortness of breath)- Primary Shortness of breath documented in this encounter Care Teams Fish Egg Packer Relationship Specialty Start [place] [address] JAIR AR[address] [facility] [address] [address] PCP - General Family Medicine 02/21/19 documented as of this encounter
--- OUTSIDE RECORDS SUMMARY | 2024-08-09 23:31 | XMS_ITS | Encounter Summary ---
Author Organization [facility] Medical Group Address [address] [facility] [address] [place] [address] Care Team Providers Care Configuration Management Specialist Name Role Phone Cassius Ortega NP Primary Care Provider [phone] Reason for Referral * Consultation (Routine) - Closed Specialty Diagnoses / Procedures Referred By Cara alvarez Referred To Contact Otolaryngology Diagnoses Bilateral chronic serous otitis media Cassius Ortega NP [address] [place] [address] [address] Phone: tel: fax: [facility]) - [facility] ENT [address] [place] [address] Medical Office Building [address] [place] [address] Phone: tel: fax: Referral ID Status Reason Start Date Expiration Date V isits Requested Visits Authorized [id number] Closed Specialty Services Required 12/15/2021 08/01/2022 12 12 Question Answer Please select the performing region: [facility] (All Locations) [[id number]] # of visits: 1 Comments [facility] Encounter Details Date Type Department Care Team (Late st Contact Info) Description 12/15/2021 Orders Only Family Care at [address] [place] [address] [place] [address] [facility] 2 [facility] [address] [place] [address] Bilateral chronic serous otitis media (Primary Dx); Long COVID Social History Tobacco Use Types Packs/Day Years [...] on file 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 Gender Identity Not on file Sexual Orientation Not on file 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 documented as of this encounter Ordered Prescriptions Prescription Sig Dispense Quantity Refills Last Filled Start Date End Date albuterol HFA (PROVENTIL HFA,VENTOLIN HFA,PROAIR HFA) 90 mcg/actuation inhaler Inhale 2 puffs every 6 (six) hours as needed for wheezing 1 each 12/15/2021 2 documented in this encounter Plan of Treatment Scheduled Referrals Name Type Priority Associated Diagnoses Order Schedule Ambulatory referral to ENT Outpatient Referral Routine Bilateral chronic serous otitis media Expected: 12/29/2021 (Approximate), Expires: 12/15/2022 documented as of this encounter Visit Diagnoses Diagnosis Bilateral chronic serous otitis media- Primary Simple or unspecified chronic serous otitis media Long COVID documented in this encounter Care Teams Configuration Management Specialist Relationship Specialty Start [place] [address] [facility] 2 [facility] [address] [place] [address] PCP - General Family Medicine 02/21/19 documented as of this encounter
--- OUTSIDE RECORDS SUMMARY | 2024-08-09 23:31 | XMS_ITS | Encounter Summary ---
Author Organization [facility] Healthcare Address [address] [place] [address] Care Team Providers Care Street Department Dispatcher Name Role Phone Cassius Ortega NP Primary Care Provider [phone] Reason for Referral * Diagnostic Imaging (Routine) - Closed Specialty Diagnoses / Procedures Referred By Cara t Referred To Contact Diagnoses Cough Procedures XR Chest Pa Lateral 2 [place] [address] [address] [facility] [address] [place] [id number] Phone: tel: fax: [address] [address] Referral ID Status Reason Start Date Expiration Date Visits Re quested Visits Authorized [id number] Closed 12/15/2021 01/14/2023 1 1 Reason for Visit * Diagnostic Imaging (Routine) - Closed Specialty Diagnoses / Procedures Referred By Contac t Referred To Contact Diagnoses Cough Procedures XR Chest Pa Lateral 2 [place] [address] [address] [facility] [address] [place] [id number] Phone: tel: fax: [address] [phone] Referral ID Status Reason Start Date Expiration Date Visits Re quested Visits Authorized [id number] Closed 12/15/2021 01/14/2023 1 1 Encounter Details Date Type Department Care Team (Latest Contact Info) Description 12/15/2021 1:07 PM CDT - 12/15/2021 11:59 PM CDT Hospital Encounter [facility] Diagnostic Imaging [address] [place] [address] [place] [address] 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 documented as of this encounter Medications at Time of Discharge albuterol HFA (PROVENTIL HFA,VENTOLIN HFA,PROAIR HFA) 90 mcg/actuation inhaler Inhale 2 puffs every 6 (six) hours as needed for wheezing 1 each 12/15/2021 01/12/2022 atorvastatin (LIPITOR) 10 mg tablet Take 1 tablet (10 mg total) by mouth daily 90 tablet 3 02/20/2021 12/30/2021 citalopram (CeleXA) 40 mg tabletIndication s:Anxiety with Depression Take 1 tablet (40 mg total) by mouth every morning 90 tablet 3 02/20/2021 12/30/2021 levothyroxine (SYNTHROID) 175 mcg tablet Take 1 tablet (175 mcg total) by mouth daily 30 tablet 11 02/20/2021 12/30/2021 loratadine (CLARITIN) 10 mg tablet Take 10 [...] VIEWS Schedule Routine, Read Routine (OP Routine) 12/15/2021 1:10 PM CDT Cough documented in this encounter Results * XR Chest Pa Lateral 2 Vw (12/15/2021 1:10 PM CDT) Anatomical Region Laterality Modality Body, Chest N/A Computed Radiogr aphy 12/15/2021 1:15 PM CDT Impressions 12/15/2021 1:15 PM CDT Normal study. Electronically signed by: Mehdi Law M.D. Narrative 12/15/2021 1:15 PM CDT EXAMINATION: XR CHEST PA LATERAL 2 VIEWS HISTORY: Coughing for 5 months 46-year-old woman 2 views FINDINGS: Comparison is made to study of 12/04/2020. Heart size normal. No infiltrates fluid or failure Procedure Note Mehdi Law MD - 12/15/2021 EXAMINATION: XR CHEST PA LATERAL 2 VIEWS HISTORY: Coughing for 5 months 46-year-old woman 2 views FINDINGS: Comparison is made to study of 12/04/2020. Heart size normal. No infiltrates fluid or failure IMPRESSION: Normal study. Electronically signed by: Mehdi Law M.D. Cassius Ortega VULCANIZING PRESS OPERATOR IMG XR PROCEDURES Final Resul t documented in this encounter Visit Diagnoses Diagnosis Cough documented in this encounter Care Teams Street Department Dispatcher Relationship Specialty Start Date End Date Cassius Ortega, NAWAF [address] [address] [facility] [address] [address] PCP - General Family Medicine 02/21/19 documented as of this encounter
--- OUTSIDE RECORDS SUMMARY | 2024-08-09 23:31 | XMS_ITS | Encounter Summary ---
Author Organization [facility] Address [address] [place] [address] Care Team Providers Care Rail Filler Name Role Phone Cassius Ortega NP Primary Care Provider Encounter Details Date Type Department Care Team (Late st Contact Info) Description 10/13/2021 Telephone [facility] Orthopedics and Sports Medicine [address] [facility] [address] [place] [address] Cuate Mcmullen MD [address] [place] [address] [address] [place] [address] Social History Tobacco Use Types Packs/Day Years [...] on file Legal Sex Female 1:09 AM SOFTWARE APPLICATIONS ARCHITECT Gender Identity Not on file Sexual Orientation Not on file 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 * Telephone Encounter - Roya Blanchard - 10/14/2021 1:15 PM CDT Left message for patient to call the office to schedule 2 week post op. * Telephone Encounter - Vaishali Burton - 10/13/2021 3:42 PM CDT Patient needing to move her surgery from 10 30 21 until after November 10. Patient's new surgery date will be 12 10 documented in this encounter Plan of Treatment Not on file documented as of this encounter Visit Diagnoses Not on filedocumented in this encounter Care Teams Rail Filler Relationship Specialty [place] [address] [address] [facility] [address] [address] PCP - General Family Medicine 02/21/19 documented as of this encounter
--- OUTSIDE RECORDS SUMMARY | 2024-08-09 23:31 | XMS_ITS | Encounter Summary ---
Author Organization [facility] Address [address] [address] Care Team Providers Care Senior Compliance Analyst Name Role Phone Cassius Ortega NP Primary Care Provider [phone] Encounter Details Date Type Department Care Team (Late st Contact Info) Description 07/17/2021 3:00 PM SEPARATOR OPERATOR Office Visit [facility] Respiratory Clinic [address] [place] [address] Inocencio Greenwood MD [address] [place] [address] [address] Bronchitis (Primary Dx) Social History Tobacco Use Types [...] on file Legal Sex Female 1:09 AM SEPARATOR OPERATOR Gender Identity Not on file Sexual Orientation Not on file 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 documented as of this encounter Last Filed Vital Signs Vital Sign Reading Time Taken Comments Blood Pressure - - Pulse - - Temperature 36.3 ??C (97.4 ??F) 07/17/2021 2:55 PM CS T Respiratory Rate - - Oxygen Saturation 99% 07/17/2021 2:55 PM SEPARATOR OPERATOR Inhaled Oxygen Concentration - - Weight - - Height - - Body Mass Index - - documented in this encounter Ordered Prescriptions Prescription Sig Dispense Quantity Refills Last Filled Start Date End Date guaiFENesin-codein e (GUAITUSS AC) liquid 100-10 mg/5 mLIndications:Coug h Take 10 mL by mouth 3 (three) times a day as needed for cough for up to 7 days 240 mL 1 07/17/2021 07/24/2021 azithromycin (ZITHROMAX) 250 mg tabletIndications: Bronchitis Take 2 tabs (500 mg) by mouth today, than 1 daily for 4 days. 6 tablet 07/17/2021 10/28/2021 documented in this encounter Progress Notes * Inocencio Greenwood MD - 07/17/2021 3:00 PM CST Images from the original note were not included. [facility] Res[facility] @ [facility] (Covid-19) Visit date: 07/17/2021 Patient presents to clinic for assessment of No chief complaint on file. . Focused HPI: HPI Patient ID: Олег Paz is a 46 y.o. female followed by Cassius Ortega NP Олег Paz contacted the Respiratory Clinic today for Respiratory/Covid- 19 evaluation. Covid Vaccinated Yes Last Covid tested NA The patient-submitted questionnaire was assessed for pertinent information and the patient's problem list, medication list, and allergies were reviewed. The chart was updated to identify any changes in these areas. Symptoms: Wet Cough Duration: 1week(s) Plus High Risk Comorbidity : none Exposure risk (travel or close contact): No Past Medical History: Diagnosis Date ??? Delayed emergence from general anesthesia slow to wake up ??? Hypertension ??? SHREYA (obstructive sleep apnea) 05/07/2021 ??? PONV (postoperative nausea and vomiting) ??? 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 Thyroid disease Past Surgical History: Procedure Laterality Date ??? BREAST BIOPSY NEG LEFT ??? SECTION ??? DILATION AND CURETTAGE OF UTERUS 2005 D&C ??? HYSTERECTOMY ??? LUMBAR SPINE SURGERY 2013 herniated disc l4-5: lumbar spine surgery Dr. Burkett ??? TUBAL LIGATION 2008 Bilateral tubal ligation Allergies Allergen Reactions ??? Cefazolin Blisters and Redness Social History Tobacco Use ??? Smoking status: Never Smoker ??? Smokeless tobacco: Never Used Substance Use Topics ??? Alcohol use: Yes Comment: socially Family History Problem Relation Age of Onset [...] Hyperlipidemia; ??? Skin cancer Sister Cancer, skin; Immunization History Administered Date(s) Administered ??? Hep B Vaccine 04/14/2021, 07/01/2021 ??? Influenza, Trivalent, Intramuscular 05/02/2009, 05/02/2014 ??? Influenza, Unspecified 06/02/2017, 05/02/2018, 05/02/2019 ??? Pfizer SARS-CoV-2 Vaccination (12+ yrs) 09/16/2020, 10/09/2020 ??? Tdap 06/18/2009, 12/04/2020 Social History Tobacco Use Smoking Status Never Smoker Smokeless Tobacco Never Used Current Medications: Outpatient Encounter Medications as of 07/17/2021 Medication Sig Dispense Refill ??? atorvastatin (LIPITOR) 10 mg tablet Take 1 tablet (10 mg total) by mouth daily 90 tablet 3 ??? azithromycin (ZITHROMAX) 250 mg tablet Take 2 tabs (500 mg) by mouth today, than 1 daily for 4 days. 6 tablet 0 ??? citalopram (CeleXA) 40 mg tablet Take 1 tablet (40 mg total) by mouth every morning 90 tablet 3 ??? guaiFENesin-codeine (GUAITUSS AC) liquid 100-10 mg/5 mL Take 10 mL by mouth 3 (three) times a day as needed for cough for up to 7 days 240 mL 1 ??? levothyroxine (SYNTHROID) 175 mcg tablet Take 1 tablet (175 mcg total) by mouth daily 30 [id number] ??? losartan (COZAAR) 100 mg tablet Take 1 tablet (100 mg total) by mouth daily 30 tablet 11 ??? methylPREDNISolone (MEDROL DOSEPACK) 4 mg Dosepack Take as directed on package 1 packet 0 No facility-administered encounter medications on file as of 07/17/2021. No flowsheet data found. Review of Systems: Please see HPI. Review of Systems Constitutional: Negative for fatigue, fever and unexpected weight change. Respiratory: Positive for cough. Negative for shortness of breath. Cardiovascular: Negative for chest pain and palpitations. Gastrointestinal: Negative for abdominal pain. Endocrine: Negative for cold intolerance and heat intolerance. Skin: Negative for rash. Neurological: Negative for headaches. Psychiatric/Behavioral: Negative for agitation, behavioral problems and confusion. Physical exam Vitals: 07/17/21 1455 Temp: 36.3 ??C (97.4 ??F) TempSrc: Temporal SpO2: 99% General appearance: In obvious distress No Neuro: Alert Yes Physical Exam Vitals and nursing note reviewed. Constitutional: General: She is not in acute distress. Appearance: She is well-developed. She is not diaphoretic. HENT: Head: Normocephalic and atraumatic. Eyes: Pupils: Pupils are equal, round, and reactive to light. Cardiovascular: Rate and Rhythm: Normal rate and regular rhythm. Heart sounds: Normal heart sounds. Pulmonary: Effort: Pulmonary effort is normal. Breath sounds: Normal breath sounds. Musculoskeletal: Cervical back: Normal range of motion and neck supple. Neurological: Mental Status: She is alert and oriented to person, place, and time. Psychiatric: Behavior: Behavior normal. Thought Content: Thought content normal. Judgment: Judgment normal. Assessment and Recommendations: Patient does not meet both criteria of COVID-19 specific symptoms and high risk comorbidities COVID testing indicated No Diagnoses and all orders for this visit: Bronchitis (Primary) - azithromycin (ZITHROMAX) 250 mg tablet; Take 2 tabs (500 mg) by mouth today, than 1 daily for 4 days. - guaiFENesin-codeine (GUAITUSS AC) liquid 100-10 mg/5 mL; Take 10 mL by mouth 3 (three) times a day as needed for cough for up to 7 days Antibiotics: as prescribed. No orders of the defined types were placed in this encounter. Additional guidance: 1. Recommend Over the counter symptomatic treatment or seek PCP's advise or ER depending on worsening degree of symptoms. 2. Patient to look at [employer] for additional specific information regarding COVID-19 or See patientinstructions for test center selection. Discussed COVID testing reasoning Reviewed isolation/quarantine protocols Discussed symptomatic relief of symptoms Discussed need to return to ER for further evaluation including worsening fevers, shortness of breath, of other concerning symptoms Advised to rest and stay adequately hydrated Advised to stay out of work and excuse given explaining when patient can return to work The patient was given information regarding any new medication(s) prescribed, if applicable, as well as any [id number] remedies. she was given instructions regarding follow up and timeframe if symptoms worsen or don???t improve. These instructions were included in the [employer] message reply tothe patient. Patient Instructions were included in the message reply to patient. Inocencio Greenwood MD RATOR OPERATOR documented in this encounter Plan of Treatment Not on file documented as of this encounter Visit Diagnoses Diagnosis Bronchitis- Primary Bronchitis, not specified as acute or chronic documented in this encounter Additional Health Concerns Infection Onset Date Last Indicated Resolved Time COVID: Suspected 07/15/2021 07/15/2021 07/29/2021 3:05 AM SEPARATOR OPERATOR documented as of this encounter Care Teams Senior Compliance Analyst Relationship Specialty Start [place] [address] [address] [address] PCP - General Family Medicine 02/21/19 documented as of this encounter
--- OUTSIDE RECORDS SUMMARY | 2024-08-09 23:31 | XMS_ITS | Encounter Summary ---
Author Organization [facility] Address [address] [address] Care Team Providers Care Carroting Machine Operator Name Role Phone Cassius Ortega NP Primary Care Provider Encounter Details Date Type Department Care Team (Late st Contact Info) Description 08/25/2021 Telephone [facility] Orthopedic and Sports Medicine [address] [place] [phone] Allison Harris MA Social History Tobacco Use Types Packs/Day [...] on file Legal Sex Female 1:09 AM RASPBERRY CHECKER Gender Identity Not on file Sexual Orientation Not on file 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 Mcmullen per patients request BERRY CHECKER * Telephone Encounter - Allison Harris MA - 08/25/2021 5:24 PM RASPBERRY CHECKER Patient called and left voicemail. She would like to schedule with Dr. Mcmullen to discuss surgery. Please call patient to schedule. BERRY CHECKER documented in this encounter Plan of Treatment Not on file documented as of this encounter Visit Diagnoses Not on filedocumented in this encounter Care Teams Carroting Machine Operator Relationship Specialty [place] [address] [address] PCP - General Family Medicine 02/21/19 documented as of this encounter
--- OUTSIDE RECORDS SUMMARY | 2024-08-09 23:31 | XMS_ITS | Encounter Summary ---
Author Organization [facility] Address [address] [address] Care Team Providers Care Furniture Painter Name Role Phone Cassius Ortega NP Primary Care Provider [phone] Reason for Visit * Diagnostic Imaging (Routine) - Closed Specialty Diagnoses / Procedures Referred By Contac t Referred To Contact Diagnoses Right shoulder pain, unspecified chronicity Procedures XR Shoulder Right 2 or More Views Cuate Mcmullen MD [address] [place] [address] [address] CATES [address] [address] Phone: tel: fax: [facility] Referral ID Status Reason Start Date Expiration Date Visits Re quested Visits Authorized [id number] Closed 09/12/2021 10/12/2022 1 1 Encounter Details Date Type Department Care Team (Late st Contact Info) Description 09/12/2021 8:05 AM POTATO CHIP PACKAGING MACHINE OPERATOR Ancillary Procedure [facility] Imaging at [address] [address] Social History Tobacco Use Types Packs/Day Years [...] on file Legal Sex Female 1:09 AM POTATO CHIP PACKAGING MACHINE OPERATOR Gender Identity Not on file [...] Read Routine (OP Routine) 09/12/2021 10:15 AM POTATO CHIP PACKAGING MACHINE OPERATOR Right shoulder pain, unspecified chronicity documented in this encounter Results * XR Shoulder Right 2 or More Views (09/12/2021 10:15 AM POTATO CHIP PACKAGING MACHINE OPERATOR) Anatomical Region Laterality Modality Upper Extremities, Shoulder Right Digi joe Radiography Narrative 09/12/2021 10:54 AM POTATO CHIP PACKAGING MACHINE OPERATOR Four views right shoulder show no fracture subluxation dislocation type 2 acromion AC joint arthritis us Cuate Mcmullen MD IMG XR PROCEDURES Final Resu lt documented in this encounter Visit Diagnoses Not on filedocumented in this encounter Care Teams Furniture Painter Relationship Specialty [place] [address] [address] [address] [address] PCP - General Family Medicine 02/21/19 documented as of this encounter
--- OUTSIDE RECORDS SUMMARY | 2024-08-09 23:31 | XMS_ITS | Encounter Summary ---
Author Organization [facility] Address [address] [facility] [address] [place] [address] Phone Care Team Providers Care Paint Stock Clerk Name Role Phone Cassius Ortega NP Primary Care Provider [phone] Reason for Visit * Reason Comments Ear Problem Fluid in ear * Consultation (Routine) - Closed Specialty Diagnoses / Procedures Referred By Cara alvarez Referred To Contact Otolaryngology Diagnoses Bilateral chronic [place] [address] [facility] [address] [place] [address] Phone: tel: fax: [facility]) - [facility] ENT [address] [facility] Office Building [address] [place] [address] Phone: tel: fax: Referral ID Status Reason Start Date Expiration Date V isits Requested Visits Authorized [id number] Closed Specialty Services Required 12/15/2021 08/01/2022 12 12 Encounter Details Date Type Department Care Team (Late st Contact Info) Description 12/24/2021 2:00 PM CDT [facility] Visit [facility] [address] [facility] 2nd Floor, [address] [place] [address] Kennedi Floyd NP [address] [place] [address] Allergic rhinitis, unspecified seasonality, unspecified trigger (Primary Dx); Dysfunction of both eustachian tubes; Nasal congestion; TMJ arthralgia; COVID-19 long hauler Social History Tobacco Use Types Packs/Day Years [...] on file Legal Sex Female 1:[address] PLANE CAPTAIN Gender Identity Not on file Sexual Orientation Not on file 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 Paz is seen for ear concerns. Chief Complaints: (J30.9) Allergic rhinitis, unspecified seasonality, unspecified trigger (primary encounter diagnosis) (H69.83) Dysfunction of both eustachian tubes Plan: Ambulatory referral to ENT (R09.81) Nasal congestion (M26.629) TMJ arthralgia HPI: Олег Paz is a 46 y.o. female who presents today for evaluation of ears. Recurrent earcongestion, discomfort. Uses qtips. Onset after bronchitis in July. Flew in September. Had covid. Treated with antibiotics, oral steroids. Worse in September with allergy flare. In October told she had fluid. Started Cpap in Sep., has had difficulty with adjusting to cpap. Has been clenching jaw. Is un bonny stress. Sense of taste and smell fluctuate. Hearing flutuates. Will be flying in a few weeks. Review of Systems: As above and on the new patients intake form, otherwise the balance of 11 systems was negative. Vital Signs: LMP 10/23/2019 Comment: currently taking progesterone since November 2019- has breakthrough bleeding Exam: Ears: Right external normal, auditory canal overly cleaned tympanic membrane intact, middle ear space aerated. Left external ear normal, auditory canaloverly cleaned tympanic membrane intact, middle space aerated. Tympanic sclerosis both ears. Nose: Inflamed, bluish mucosa, clear rhinnorhea, no deviation of nasal septum. Mouth: Uvula midline, pink mucosa, no lesions. Squeezed but patent oropharynx. Neck: no masses. ASSESSMENT (J30.9) Allergic rhinitis, unspecified seasonality, unspecified trigger (primary encounter diagnosis) (H69.83) Dysfunction of both eustachian tubes Plan: Ambulatory referral to ENT (R09.81) Nasal congestion (M26.629) TMJ arthralgia PLAN: 1. DC qtips 2. Saline, flonase daily 3. Fu 1 month with audiogram 4. Discussed tmj arthalgia, NSAID, analgesic cream and moist heat documented in this encounter Plan of Treatment Not on file documented as of this encounter Visit Diagnoses Diagnosis Allergic rhinitis, unspecified seasonality, unspecified trigger- Primary Dysfunction of both eustachian tubes Nasal congestion Other diseases of nasal cavity and sinuses TMJ arthralgia Arthralgia of temporomandibular joint COVID-19 cynthia yun documented in this encounter Orders Outpatient Referral Count Last Ordered Date Fir st Ordered Date AMB REFERRAL TO ENT 1 12/24/2021 documented in this encounter Care Teams Paint Stock Clerk Relationship Specialty Start [place] [address] [place] [address] PCP - General Family Medicine 02/21/19 documented as of this encounter
--- OUTSIDE RECORDS SUMMARY | 2024-08-09 23:31 | XMS_ITS | Encounter Summary ---
Author Organization [facility] Medical Group Address [address] [facility] [address] [place] [address] Care Team Providers Care Manager Council Name Role Phone Cassius Ortega NP Primary Care Provider Encounter Details Date Type Department Care Team (Late st Contact Info) Description 08/19/2021 1:15 PM SENIOR ELECTRICAL CONTROLS ENGINEER Office Visit [facility] [address] [facility] [address] [place] [address] Daniele Morse MD [address] [place] [address] [address] [place] [address] Moderate obstructive sleep apnea (Primary Dx); Hypersomnia with sleep apnea; Severe obesity (BMI 35.0-35.9 with comorbidity) (CMS/HCC) ([facility]) Social History Tobacco Use Types Packs/Day Years [...] file Legal Sex Female 1:09 AM SENIOR ELECTRICAL CONTROLS ENGINEER Gender Identity Not on file Sexual Orientation Not on file 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 documented as of this encounter Last Filed Vital Signs Vital Sign Reading Time Taken Comments Blood Pressure 119/79 08/19/2021 1:19 PM SENIOR ELECTRICAL CONTROLS ENGINEER Pulse 67 08/19/2021 1:19 PM SENIOR ELECTRICAL CONTROLS ENGINEER Temperature - - Respiratory Rate - - Oxygen Saturation - - Inhaled Oxygen Concentration - - Weight 102.2 kg (225 lb 3.2 oz) 08/19/2021 1:19 PM SENIOR ELECTRICAL CONTROLS ENGINEER Height 165.1 cm (5' 5 ) 08/19/2021 1:19 PM SENIOR ELECTRICAL CONTROLS ENGINEER Body Mass Index 37.48 08/19/2021 1:19 PM SENIOR ELECTRICAL CONTROLS ENGINEER documented in this encounter Progress Notes * Daniele Morse MD - 08/19/2021 1:15 PM CST Chief complaints: Snoring, unrefereshing sleep and hypersomnia HPI Mr. Paz presents for consultation. She has been requested seen in consult by Mr. Jordan NP for opinion regarding her above symptoms. She is a very pleasant 46-year-old reports that she goes tobed between 10 and 11:00 p.m., and awakens between 6 and 8:00 a.m.. Takes 15 minutes to fall asleep. Endorses symptoms of loud snoring awakening gasping for air, talking sleep and awakening with transplanter orchid headaches. Denies witnessed stoppage with while sleeping, restless sleep, talking walking sleep, creepy crawly feeling legs, leg jerks, urge to move her legs and nighttime wheezing awakens 2-3 times, occasionally go to the restroom. Takes less than 5 minutes to fall asleep. Awakens with a p erception of usually non refreshing sleep. Does feel fatigued and tired in the daytime [place] Sleepiness Scale score is 4. Does not take daytime naps. Denies symptoms of cataplexy, hypnagogic hallucinations sleep paralysis. Patient underwent a sleep study in May. Review of Systems Past Medical History: Diagnosis Date ??? Delayed emergence from general anesthesia slow to wake up ??? Hypertension ??? SHREYA (obstructive sleep apnea) 05/07/2021 ??? PONV (postoperative nausea and vomiting) ??? 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 Thyroid disease Social History Socioeconomic History ??? Marital status: Spouse name: Not on file ??? Number of children: 2 ??? Years of education: Not on file ??? Highest education level: Not on file Occupational History ??? Occupation: Addictive Employer: [employer] Tobacco Use ??? Smoking status: Never Smoker ??? Smokeless tobacco: Never Used Vaping Use ??? Vaping Use: Never used Substance and Sexual Activity ??? Alcohol use: Yes Comment: socially ??? Drug use: No ??? Sexual activity: Yes Partners: Male control/protection: Tubal Ligation Other Topics Concern ??? Not on file Social History Narrative ??? Not on file Social Determinants of Health [...] Hyperlipidemia; ??? Skin cancer Sister Cancer, skin; Physical Exam BP 119/79 Pulse 67 Ht 165.1 cm (5' 5 ) Wt 102.2 kg (225 lb 3.2 oz) LMP 10/23/2019 Comment: currently taking progesterone since November 2019- has breakthrough bleeding BMI 37.48 kg/m?? Constitutional: Pleasant female in no distress HENT: Head: Normocephalic [...] and affect. Judgment normal. Review of data: X-ray of the chest from 12/04/2020: Negative TSH: 0.33 CBC: WBC 9.6 hemoglobin 12.5 hematocrit 38.2 platelets [address] Mendieta from 07/17/2021 was reviewed summer the report reveals a 46-year-old presenting for weight coughing going on for the past 1 week. Recommend azithromycin and 1 if Anacin. Did not meet criteria for COVID-19. AP 1. Moderate Obstructive sleep apnea: Endorses symptoms suggestive of obstructive sleep apnea syndrome. Patient's home polysomnography from 05/2021 confirms moderate obstructive sleep apnea syndrome with severe in the supine position. The physiology of sleep disordered breathing and its increased association with hypertension, diabetes, heart arrhythmia, strokes, heart attacks, heart failure, hypersomnia, obesity and mood disorders was discussed. The patient would be set automatic positive therapy 4-14 cm with a N 30 I mask. Optimize therapy further with compliance download. Patient's polysomnography was reviewed baseline AHI 16.7. Supine AHI 38.4. 2. Hypersomnia with sleep at: Primarily from sleep fragmentation associated with uncontrolled sleepdisordered breathing. Monitor response to therapy for the above. 3. Severe Obesity:The effects of obesity obstructive sleep apnea syndrome and other morbidities wasdiscussed. Recommended diet and exercise in losing weight. Patient verbalizes an understanding. OR ELECTRICAL CONTROLS ENGINEER OR ELECTRICAL CONTROLS ENGINEER documented in this encounter Plan of Treatment Not on file documented as of this encounter Visit Diagnoses Diagnosis Moderate obstructive sleep apnea- Primary Hypersomnia with sleep apnea Hypersomnia with sleep apnea, unspecified Severe obesity (BMI 35.0-35.9 with comorbidity) ([facility]) documented in this encounter Care Teams Manager Council Relationship Specialty [place] [address] [place] [address] PCP - General Family Medicine 02/21/19 documented as of this encounter
--- OUTSIDE RECORDS SUMMARY | 2024-08-09 23:31 | XMS_ITS | Encounter Summary ---
Author Organization [facility] Medical Group Address [address] [facility] [address] [place] [address] Care Team Providers Care Machine Marker Name Role Phone Cassius Ortega NP Primary Care Provider [phone] Reason for Referral * Cardiology (Routine) - Closed Specialty Diagnoses / Procedures Referred By Contjennifer alvarez Referred To Contact Diagnoses Palpitations Procedures Event Monitor, 30 Day Event Charly Olson MD Phone: tel: fax: [facility] Medical Group Referral ID Status Reason Start Date Expiration Date Visits Re quested Visits Authorized [id number] Closed 01/05/2022 02/04/2023 1 1 Encounter Details Date Type Department Care Team (Late st Contact Info) Description 01/05/2022 Orders Only [place] Director Of Instruction [id number] [facility] [address] [place] [address] Charly Olson MD [address] [place] [address] [place] [address] Palpitations (Primary Dx) Social History Tobacco Use Types [...] on file 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 Gender Identity Not on file Sexual Orientation Not on file 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 documented as of this encounter Plan of Treatment Not on file documented as of this encounter Results * Event Monitor, 30 Day Event (01/05/2022 9:39 AM CDT) Anatomical Region Laterality Modality Electrocardiogra phy Charly Olson MD [facility] CARDIAC SERVICES PROCEDURES Edited Result - Final documented in this encounter Visit Diagnoses Diagnosis Palpitations- Primary documented in this encounter Care Teams Machine Marker Relationship Specialty [place] [address] [address] [facility] [address] [facility] [address] [place] [address] PCP - General Family Medicine 02/21/19 documented as of this encounter
--- OUTSIDE RECORDS SUMMARY | 2024-08-09 23:31 | XMS_ITS | Encounter Summary ---
Author Organization [facility] Medical Group Address [address] [address] Care Team Providers Care Education General Manager Name Role Phone Cassius Ortega NP Primary Care Provider Encounter Details Date Type Department Care Team (Late st Contact Info) Description 07/15/[address] 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 Date of Symptom Onset 07/12/2021 ?? Testing site patient will be sent to: [facility] ?? Date testing requested: 07/15/2021 ?? Testin-in-1--(COVID, FLU A/B) ?? Does the patient currently work in a healthcare facility with direct patient contact? No ?? Is the patient a resident of a congregate care or living setting? No ?? ? No ?? Please select the performing region: [facility] ?? Referral Notes ID SUPERINTENDENT documented in this encounter Plan of Treatment Not on file documented as of this encounter Visit Diagnoses Diagnosis Exposure to SARS-associated coronavirus- Primary documented in this encounter Additional Health Concerns Infection Onset Date Last Indicated Resolved Time COVID: Suspected 07/15/2021 07/15/2021 07/29/2021 3:05 AM ORCHID SUPERINTENDENT documented as of this encounter Care Teams Education General Manager Relationship Specialty [place] [address] [address] [facility] [address] [address] PCP - General Family Medicine 02/21/19 documented as of this encounter
--- OUTSIDE RECORDS SUMMARY | 2024-08-09 23:31 | XMS_ITS | Encounter Summary ---
Author Organization [facility] Medical Group Address [address] [facility] [address] [place] [address] Care Team Providers Care Abstract Manager Name Role Phone Cassius Ortega NP Primary Care Provider [phone] Reason for Visit * Reason Comments Follow-up Thyroid levels and h ep B vaccine Encounter Details Date Type Department Care Team (Late st Contact Info) Description 10/27/2021 3:00 PM CDT Office Visit [facility] [address] [address] [place] [address] [address] Primary hypertension (Primary Dx); Hypothyroidism, unspecified type; BMI 37.0-37.9, adult Social History Tobacco Use Types Packs/Day [...] on file 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 Gender Identity Not on file Sexual Orientation Not on file 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 documented as of this encounter Last Filed Vital Signs Vital Sign Reading Time Taken Comments Blood Pressure 100/64 10/27/2021 2:57 PM CDT Pulse 70 10/27/2021 2:57 PM CDT Temperature 36.1 ??C (97 ??F) 10/27/2021 2:57 PM CDT Respiratory Rate - - Oxygen Saturation 97% 10/27/2021 2:57 PM CDT Inhaled Oxygen Concentration - - Weight 102.5 kg (226 lb) 10/27/2021 2:57 PM CDT Height 165.1 cm (5' 5 ) 10/27/2021 2:57 PM CDT Body Mass Index 37.61 10/27/2021 2:57 PM CDT documented in this encounter Progress Notes * Brook Powers, NAWAF - 10/27/2021 3:00 PM CDT Images from the original note were not included. Subjective/Objective Patient ID: Deejay Paz is a 46 y.o. female. Vital Signs Vitals: 10/27/21 1457 BP: 100/64 BP Location: Left arm Patient Position: Sitting Pulse: 70 Temp: 36.1 ??C (97 ??F) SpO2: 97% Weight: 102.5 kg (226 lb) Height: 165.1 cm (5' 5 ) Chief Complaint Follow-up (Thyroid levels and hep B vaccine) Hypertension This is a chronic problem. The current episode started more than 1 year ago. The problem is controlled. Pertinent negatives include no anxiety, blurred vision, chest pain, headaches or peripheral edema. Agents associated with hypertension include thyroid hormones. Risk factors for coronary artery disease include obesity. Past treatments include angiotensin blockers. The current treatment providessignificant improvement. There is no history of angina, kidney disease, CAD/CT or CVA. Identifiablecauses of hypertension include a thyroid problem. Thyroid Problem Presents for follow-up visit. Patient reports no depressed mood, dry skin or fatigue. The symptoms have been stable. Review of Systems Constitutional: Negative for fatigue. Eyes: Negative for blurred vision. Cardiovascular: Negative for chest pain. Neurological: Negative for headaches. Physical Exam Vitals reviewed. Constitutional: Appearance: Normal [...] Primary hypertension (I10) (Primary) Assessment & Plan: -Well controlled continue current losartan 100 mg daily Orders: - Comprehensive metabolic panel; Future Hypothyroidism, unspecified type (E03.9) Assessment & Plan: -No current symptoms, TSH today -Continue current levothyroxine 175 mcg am daily Orders: - TSH reflex to free T4; Future BMI 37.0-37.9, adult (Z68.37) Assessment & Plan: Weight Loss to Achieve Healthy BMI (18.5-24.9) ?? Eat a variety of vegetables such as dark green, red, and orange vegetables. You can also includecanned vegetables low in sodium (salt) and frozen vegetables without added butter or sauces. ?? Eat a variety of fresh fruits , canned fruit in 100% juice, frozen fruit, and dried fruit. ?? Include whole grains. At least half of the grains you eat should be whole grains. Examples include whole-wheat bread, wheat pasta, brown rice, and whole- grain cereals such as oatmeal. ?? Eat a variety of protein foods such as seafood (fish and shellfish), lean meat, and poultry without skin (turkey and chicken). Examples of lean meats include pork leg, shoulder, or tenderloin, andbeef round, sirloin, tenderloin, and extra lean ground beef. Other protein foods include eggs and egg substitutes, beans, peas, soy products, nuts, and seeds. ?? Choose low-fat dairy products such as skim or 1% milk or low-fat yogurt, cheese, and cottage cheese. ?? Limit unhealthy fats such as butter, hard margarine, and shortening. Brook Powers NP This note was generated in part or in whole with voice recognition software. Voice recognition is usually quite accurate but there are power reactor supervisor areas that can and often occur. All attempts were made to correct these areas. I apologize for any typographical errors that were not detected and corrected. documented in this encounter Miscellaneous Notes * Assessment & Plan Note - Brook Powers NP - 10/28/2021 3:31 PM CDT Associated Problem(s): Hypothyroidism -No current symptoms, TSH today -Continue current levothyroxine 175 mcg am daily * Assessment & Plan Note - Brook Powers NP - 10/28/2021 3:30 PM CDT Associated Problem(s): Primary hypertension -Well controlled continue current losartan 100 mg daily * Assessment & Plan Note - Brook Powers NP - 10/28/2021 3:29 PM CDT Associated Problem(s): BMI 37.0-37.9, adult Weight Loss to Achieve Healthy BMI (18.5-24.9) ?? Eat a variety of vegetables such as dark green, red, and orange vegetables. You can also includecanned vegetables low in sodium (salt) and frozen vegetables without added butter or sauces. ?? Eat a variety of fresh fruits , canned fruit in 100% juice, frozen fruit, and dried fruit. ?? Include whole grains. At least half of the grains you eat should be whole grains. Examples include whole-wheat bread, wheat pasta, brown rice, and whole- grain cereals such as oatmeal. ?? Eat a variety of protein foods such as seafood (fish and shellfish), lean meat, and poultry without skin (turkey and chicken). Examples of lean meats include pork leg, shoulder, or tenderloin, andbeef round, sirloin, tenderloin, and extra lean ground beef. Other protein foods include eggs and egg substitutes, beans, peas, soy products, nuts, and seeds. ?? Choose low-fat dairy products such as skim or 1% milk or low-fat yogurt, cheese, and cottage cheese. ?? Limit unhealthy fats such as butter, hard margarine, and shortening. documented in this encounter Plan of Treatment Not on file documented as of this encounter Results * (ABNORMAL) Comprehensive metabolic panel (10/27/2021 3:44 PM CDT) Pathologist [facility] Sodium 138 135 - 145 mmol/L [facility] Potassium, pl 4.2 3.3 - 4.9 mmol/L [facility] Chloride 103 97 - 110 mmol/L [facility] CO2 23 22 - 32 mmol/L [facility] Anion gap 12 2 - 15 mmol/L [facility] BUN 12 8 - 25 mg/dL [facility] Creatinine 0.58(L) 0.60 - 1.10 mg/dL [facility] Glucose 93 70 - 199 mg/dL CERNER Comment: Interpretive Data Fasting glucose >/= 126 [...] interpretive data was last revised 2017. Calcium 9.3 8.5 - 10.3 mg/dL [facility] Bilirubin, total 0.2 0.1 - 1.2 mg/dL [facility] Protein, pl 7.3 6.5 - 8.5 g/dL [facility] Albumin 4.5 3.5 - 5.0 g/dL [facility] Alk phos 60 40 - 130 Units/L [facility] ALT 23 7 - 45 Units/L [facility] AST 21 10 - 45 Units/L [facility] Blood 10/27/2021 3:44 PM CDT 10/27/2021 8:55 PM CDT Brook Powers FLEET MANAGER LAB BLOOD ORDERABLES Final Result Performing Organization Address City/[facility]/ZIP Co de Phone Number [facility] [address] [address] [employer] [place], [place] [id number] * (ABNORMAL) TSH reflex to free T4 (10/27/2021 3:44 PM CDT) TSH 0.21(L) 0.30 - 4.20 mcIUnit/mL [facility] CH Blood 10/27/2021 3:44 PM CDT 10/27/2021 8:55 PM CDT Brook Powers FLEET MANAGER LAB BLOOD ORDERABLES Final Result Performing Organization Address [facility] Co de Phone Number [facility] [address] [address] [place] [address] documented in this encounter Visit Diagnoses Diagnosis Primary hypertension- Primary Unspecified essential hypertension Hypothyroidism, unspecified type BMI 37.0-37.9, adult documented in this encounter Discontinued Medications Medication Sig Discontinue Reason Start Date End Da te albuterol HFA (ProAir HFA) 90 mcg/actuation inhaler Inhale 2 puffs every 4 (four) hours as needed for wheezing or shortness of breath 08/05/2021 10/28/2021 azithromycin (ZITHROMAX) 250 mg tabletIndications:Bronc hitis Take 2 tabs (500 mg) by mouth today, than 1 daily for 4 days. 07/17/2021 10/28/2021 documented as of this encounter Historical Medications * This list may reflect changes made after this encounter. loratadine (CLARITIN) 10 mg tablet Take 10 mg by mouth daily 09/25/2021 03/31/2022 added in this encounter Care Teams Abstract Manager Relationship Specialty [place] [address] [address] [facility] [address] [address] PCP - General Family Medicine 02/21/19 documented as of this encounter
--- OUTSIDE RECORDS SUMMARY | 2024-08-09 23:31 | XMS_ITS | Encounter Summary ---
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 Thanks documented in this encounter Plan of Treatment Not on file documented as of this encounter Procedures Procedure Name Priority Date/Time Associated Diagnosis Comments EGFR Routine 10/27/2021 3:44 PM CDT Primary hypertension THYROID FUNCTION CASCADE Routine 10/27/2021 3:44 PM CDT Hypothyroidism, unspecified type T4, FREE Routine 10/27/2021 3:44 PM CDT Hypothyroidism, unspecified type COMPREHENSIVE METABOLIC PANEL Routine 10/27/2021 3:44 PM CDT Primary hypertension documented in this encounter Results * eGFR (10/27/2021 3:44 PM CDT) [facility] eGFR 112 mL/min/1. 73 m2 [facility] Comment: Interpretive [...] of Race in Diagnosing Kidney Disease, JASN 202). The CKD-EPI equation should not be used for patients with unstable renal function and has not been validated in children and those over 70. Current interpretive data was last reviewed 2021. Blood 10/27/2021 3:44 PM CDT 10/27/2021 8:58 PM CDT Brook Powers REED CLEANER LAB BLOOD ORDERABLES Final Result Performing Organization Address City/[facility] Co de Phone Number [facility] [address] [address] Department of [employer] [place] [address] * T4, free (10/27/2021 3:44 PM CDT) Free T4 1.36 0.90 - 1.70 ng/dL [facility] Blood 10/27/2021 3:44 PM CDT 10/27/2021 8:58 PM CDT Brook Powers NP LAB BLOOD ORDERABLES Final Result Performing Organization Address City/[facility] Co de Phone Number [facility] [address] [address] Department of [employer] [address] * (ABNORMAL) Comprehensive metabolic panel (10/27/2021 3:44 PM CDT) Sodium 138 135 - 145 mmol/L CERNER [...] Glucose 93 70 - 199 mg/dL [facility] CH Comment: [...] CDT 10/27/2021 8:55 PM CDT Brook Powers REED CLEANER LAB BLOOD ORDERABLES Final Result Performing Organization Address City/[facility]/ZIP Co de Phone Number [facility] [place] [address] [address] [place] [address] * (ABNORMAL) TSH reflex to free T4 (10/27/2021 3:44 PM CDT) TSH 0.21(L) 0.30 - 4.20 mcIUnit/mL [facility] Blood 10/27/2021 3:44 PM CDT 10/27/2021 8:55 PM CDT Brook Powers NP LAB BLOOD ORDERABLES Final Result Performing Organization Address City/[facility]/ZIP Co de Phone Number [facility] [place] [address] [address] Department of [facility] [place] [address] documented in this encounter Visit Diagnoses Diagnosis Hypothyroidism, unspecified type Primary hypertension Unspecified essential hypertension documented in this encounter Care Teams Hand Folder Relationship Specialty Start [place] [address] [address] [facility] [address] [place] [address] PCP - General Family Medicine 02/21/19 documented as of this encounter
--- OUTSIDE RECORDS SUMMARY | 2024-08-09 23:31 | XMS_ITS | Encounter Summary ---
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 ? MILD difficulty breathing (e.g., minimal/no SOB at rest, SOB with walking, pulse <100) and still present when not coughing Protocols used: [id number] ACTION NEEDED: Please call Pt [phone] to schedule appointment tomorrow. Pt states on Wednesday started to have a cough, sore throat, felt winded walking. Pt took Home Covid-19 test-negative Wednesday. Pt had E-visit yesterday and was prescribed Medrol dose pack. Pt states her Niece is a PAPER MILL SUPERINTENDENT and was told left lung diminished breath sounds, ears are good. Pt states she has a little phlegm but not able to cough it up, throat is not as sore as it was, cough is bad, feels SOB with walking or a lot of talking. Pt denies fever, severe difficulty breathing, bluish discoloration to face or lips, chest pain, wheezing, SOB at rest. Hx HTN, HLD, SHREYA. Go to office now. Pt wants to be seen in person. RN unable to schedule at [facility] and called backline Lashell who advised RN to task to Admin to schedule OV. Care advice: Fluids,warm fluids, cough drops, normal saline nasal spray, humidifier, warm salt water gargle, steamy bathroom. Call Back If: Difficulty breathing, chest pain, severe pain, fever, wheezing,or any worsening sx. Pt verbalizes understanding and is agreeable with this plan. HP TASK ADMIN. MARSHAL * Telephone Encounter - Ko Martin RN - 07/16/2021 1:50 PM AIR MARSHAL Regarding: Cough, winded ----- Message from Janeth Martin sent at 07/16/2021 1:45 PM AIR MARSHAL ----- Symptom Based Call Chief Complaint: Cough, winded Did you review 911/Red Flag List?Yes Duration: Started on Wednesday Why was appointment not scheduled? Red Flag Caller's Callback #: [phone] Additional Comments: Pt is calling stating she is winded and did a evisit yesterday on [employer]. Pt states she is on a z noy but think she has bronchitis. Pt states her niece who is a PAPER MILL SUPERINTENDENT listened to her and stated she has congestion in her lung Does message need to be routed? Yes-Action Needed Symptoms:(!) Yes (Cough, congestion, runny nose, congestion) (07/16/2021 1:41 PM)Exposure: No (07/16/2021 1:41 PM)Positive COVID-19 test within the last 14 days:No (07/16/2021 1:41 PM) Following [facility] COVID-19 Scheduling Guidelines MARSHAL documented in this encounter Plan of Treatment Not on file documented as of this encounter Visit Diagnoses Not on filedocumented in this encounter Additional Health Concerns Infection Onset Date Last Indicated Resolved Time COVID: Suspected 07/15/2021 07/15/2021 07/29/2021 3:05 AM AIR MARSHAL documented as of this encounter Care Teams City Auditor Relationship Specialty [place] [address] [address] [address] PCP - General Family Medicine 02/21/19 documented as of this encounter
--- OUTSIDE RECORDS SUMMARY | 2024-08-09 23:31 | XMS_ITS | Encounter Summary ---
Author Organization [facility] Address [address] [address] Care Team Providers Care Tile Layer Name Role Phone Cassius Ortega NP Primary Care Provider [phone] Reason for Referral * Diagnostic Imaging (Routine) - Closed Specialty Diagnoses / Procedures Referred By Contjennifer t Referred To Contact Diagnoses Cough Procedures XR Chest Pa Lateral 2 [place] [address] [address] [facility] [address] [address] Phone: tel: fax: [address] [address] Referral ID Status Reason Start Date Expiration Date Visits Re quested Visits Authorized [id number] Closed 12/15/2021 01/14/2023 1 1 Encounter Details Date Type Department Care Team (Late st Contact Info) Description 12/15/2021 Orders Only Family Care at [address] [address] [place] [address] [address] [facility] [address] [address] Cough (Primary Dx) Social History Tobacco Use Types [...] on file 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 Electronically signed by: Mehdi Law M.D. us Cassius Ortega PNEUMATIC HOIST OPERATOR IMG XR PROCEDURES Final Resul t * (ABNORMAL) Comprehensive metabolic panel (12/15/2021 12:44 PM CDT) Sodium 138 135 - 145 [...] 12/15/2021 4:40 PM CDT us Cassius Ortega PNEUMATIC HOIST OPERATOR LAB BLOOD ORDERABLES Final Re sult [facility] [address] [address] Department [place] [address] * (ABNORMAL) CBC with auto differential (12/15/2021 12:44 PM CDT) WBC 9.7 3.8 - 9.9 K/cumm [facility] Hgb 11.8(L) 11.9 - 15.5 g/dL [facility] Hct 37.1 35.6 - 45.5 % [facility] Plt 275 150 - 400 K/cumm [facility] MPV 9.4 9.1 - 12.3 fL [facility] RBC 4.02 3.90 - 5.20 M/cumm [facility] MCV 92.3 81.3 - 96.4 fL [facility] MCH 29.4 27.1 - 33.3 pg [facility] MCHC 31.8(L) 32.3 - 35.7 g/dL [facility] RDW CV 13.4 11.1 - 14.9 % [facility] RDW SD 45.3 35.7 - 48.1 fL [facility] NRBC abs 0.00 0.00 - 0.01 K/cumm [facility] Blood 12/15/2021 12:4 4 PM CDT 12/15/2021 4:40 PM CDT us Cassius Ortega PNEUMATIC HOIST OPERATOR LAB BLOOD ORDERABLES Final Re sult [facility] [address] [address] Department [place] [address] documented in this encounter Visit Diagnoses Diagnosis Cough- Primary Cough documented in this encounter Care Teams Tile Layer Relationship Specialty Start Date End Date Cassius Ortega, NAWAF [address] [address] [place] [address] PCP - General Family Medicine 02/21/19 documented as of this encounter
--- OUTSIDE RECORDS SUMMARY | 2024-08-09 23:31 | XMS_ITS | Encounter Summary ---
Author Organization [facility] Address [address] [facility] [address] [place] [address] Care Team Providers Care Missile Technician Name Role Phone Cassius Ortega NP Primary Care Provider [phone] Reason for Visit * Reason Onset Date Comments surgery clearance 11/17/2021 Encounter Details Date Type Department Care Team (Late st Contact Info) Description 11/17/2021 Telephone [facility] Orthopedics and Sports Medicine [address] [place] [address] [address] [place] [address] Tiffanie Majano RMA surgery clearance Social History Tobacco Use Types Packs/Day Years [...] on file 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 Clearance scanned into media. * Telephone Encounter - Allison Harris MA - 11/26/2021 1:08 PM CDT Noted and updated in clearance book. * Telephone Encounter - Vaishali Burton - 11/24/2021 3:40 PM CDT Spoke with patient and she has moved surgery to [id number] * Telephone Encounter - Vaishali Burton - 11/21/2021 10:38 AM CDT Called patient and message was left * Telephone Encounter - Tiffanie Majano MA - 11/17/2021 11:21 AM CDT Called patient to check on surgery clearances from her PCP and human services professional. She stated that she needs to reschedule her surgery. Please call the patient to schedule. She would like sometime in fall. documented in this encounter Plan of Treatment Not on file documented as of this encounter Visit Diagnoses Not on filedocumented in this encounter Care Teams Missile Technician Relationship Specialty [place] [address] [address] [facility] [address] [place] [address] PCP - General Family Medicine 02/21/19 documented as of this encounter
--- OUTSIDE RECORDS SUMMARY | 2024-08-09 23:31 | XMS_ITS | Encounter Summary ---
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 Gender Identity Not on file Sexual Orientation Not on file 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 The patient-submitted questionnaire was assessed for pertinent information and the patient's problem list, medication list, and allergies were reviewed as part of the e-visit. The chart was updated to identify any changes in these areas. Assessment: Diagnosis Plan 1. Viral upper respiratory tract infection with cough Plan: The patient was given information regarding any new medication(s) prescribed, if applicable, as well as any ksbi-mip-[id number] remedies. She was given instructions regarding follow up and timeframe if symptoms worsen or don???t improve. These instructions were included in the [employer] message reply tothe patient. Patient Instructions were included in the message reply to patient. New Medications Ordered This Visit ??? methylPREDNISolone (MEDROL DOSEPACK) 4 mg Dosepack Sig: Take as directed on package Dispense: 1 packet Refill: 0 Orders Placed This Encounter Procedures ??? Request for Ambulatory Collection Site Testing - Adult Standing Status: Future Standing Expiration Date: 07/15/2022 Referral Priority: Routine Referral Type: Consultation Referral Reason: Specialty Services Required Referral Location: [facility] Requested Specialty: Family Medicine Number of Visits Requested: 1 Martha Norton NP STRIAL TRUCK MECHANIC documented in this encounter Plan of Treatment Not on file documented as of this encounter Visit Diagnoses Diagnosis Viral upper respiratory tract infection with cough- Primary documented in this encounter Care Teams Applied Biology Professor Relationship Specialty [place] [address] [address] [facility] [address] [place] [address] PCP - General Family Medicine 02/21/19 documented as of this encounter
--- OUTSIDE RECORDS SUMMARY | 2024-08-09 23:32 | XMS_ITS | Encounter Summary ---
Author Organization [facility] Address [address] [facility] [address] [place] [address] Care Team Providers Care Mixer Helper Name Role Phone Cassius Ortega NP Primary Care Provider Reason for Visit * Reason Comments Hypertension Follow-up Dizziness light headed Encounter Details Date Type Department Care Team (Late st Contact Info) Description 11/01/2020 10:30 AM CDT Office Visit [place] [employer] [address] [address] Charly Olson MD [address] [place] [address] [address] Essential hypertension (Primary Dx); Lightheadedness Social History Tobacco Use Types Packs/Day Years Used Date Smoking Tobacco: Never Smokeless Tobacco: Never Alcohol Use Standard Drinks/Week Comments Yes 0 (1 standard drink = 0.6 oz pur e alcohol) socially PHQ-2 Answer Date Recorded PHQ-2 Total Score (If total score is 3 or more points, staff should administer the PHQ-9) 0 10/29/2020 Comments No Sex and Gender Information Value Date Recorded Sex Assigned at Not on file 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 Gender Identity Not on file Sexual Orientation Not on file 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 documented as of this encounter Last Filed Vital Signs Vital Sign Reading Time Taken Comments Blood Pressure 110/80 11/01/2020 10:30 AM CDT Pulse 91 11/01/2020 10:30 AM CDT Temperature 36.8 ??C (98.2 ??F) 11/01/2020 10:30 AM C DT Respiratory Rate 18 11/01/2020 10:30 AM CDT Oxygen Saturation 96% 11/01/2020 10:30 AM CDT Inhaled Oxygen Concentration - - Weight 101.2 kg (223 lb) 11/01/2020 10:30 AM CDT Height 165.1 cm (5' 5 ) 11/01/2020 10:30 AM CDT Body Mass Index 37.11 11/01/2020 10:30 AM CDT documented in this encounter Progress Notes * Charly Olson MD - 11/01/2020 10:30 AM CDT Cardiology note Reason for Office Visit: Chief Complaint Patient presents with ??? Hypertension ??? Follow-up ??? Dizziness light headed History of Present Illness: Олег Paz is a 45 y.o. female seen in follow up for HTN. Stress Echo on 05/09/20 was normal. She is here today for rising BP Her losartan was doubled two days ago, She was having headaches. Also her TSH has been rising and her thyroid dose has been adjusted. Past Medical History: Diagnosis Date ??? Delayed emergence from general anesthesia slow to wake up ??? Hypertension ??? PONV (postoperative nausea and vomiting) ??? 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 Thyroid disease Review of systems: Review of Systems Neurological: Positive for headaches. All other systems reviewed and are negative. [...] Hyperlipidemia; ??? Skin cancer Sister Cancer, skin; Social History Tobacco Use ??? Smoking status: Never Smoker ??? Smokeless tobacco: Never Used Substance Use Topics ??? Alcohol use: Yes Comment: socially ??? Drug use: No Allergies Allergen Reactions ??? Cefazolin Blisters and Redness Medications: Current Outpatient Medications Medication Sig Dispense Refill ??? atorvastatin (LIPITOR) 10 mg tablet Take 1 tablet (10 mg total) by mouth daily 90 tablet 3 ??? citalopram (CeleXA) 40 mg tablet Take 1 tablet (40 mg total) by mouth every morning 90 tablet 3 ??? ibuprofen (ADVIL,MOTRIN) 600 mg tablet Take 1 tablet (600 mg total) by mouth 4 (four) times a day as needed for pain (pain) 90 tablet 0 ??? levothyroxine (SYNTHROID) 175 mcg tablet Take 1 tablet (175 mcg total) by mouth daily 30 [id number] ??? losartan (COZAAR) 50 mg tablet Take 1 tablet by mouth once daily 90 tablet 0 No current facility-administered medications for this visit. Vital Signs: Vitals BP 110/80 Pulse 91 Temp 36.8 ??C (98.2 ??F) Resp 18 Ht 165.1 cm (5' 5 ) Wt 101.2 kg (223 lb) LMP 10/23/2019 SpO2 96% BMI 37.11 kg/m?? Vitals: 11/01/20 1030 BP: 110/80 Pulse: 91 Resp: 18 Temp: 36.8 ??C (98.2 ??F) SpO2: 96% Wt Readings from Last 3 Encounters: 11/01/20 101.2 kg (223 lb) 08/14/20 101.2 kg (223 lb) 07/01/20 103.2 kg (227 lb 9.6 oz) Physical Exam: Physical Exam Constitutional: She appears well-developed and well-nourished. HENT: Head: Normocephalic and atraumatic. Eyes: No scleral icterus. Cardiovascular: Normal rate and regular rhythm. No murmur heard. Pulmonary/Chest: Effort normal and breath sounds normal. Labs: Recent Labs Lab Units 10/29/20 1446 SODIUM mmol/L 136 POTASSIUM PLASMA mmol/L 4.3 CHLORIDE mmol/L 104 CO2 mmol/L 24 BUN SERUM mg/dL 15 CREATININE mg/dL 0.71 NLO-OLO-ZJLQUHP mL/min/1.73 m2 101 GLUCOSE mg/dL 89 CALCIUM mg/dL 9.4 ALBUMIN g/dL 4.6 Recent Labs Lab Units 10/29/20 1446 ALK PHOS Units/L 63 BILIRUBIN TOTAL mg/dL 0.2 TOTAL PROTEIN g/dL 7.5 ALT Units/L 22 AST Units/L 23 Recent Labs Lab Units 10/29/20 1446 WBC K/cumm 9.6 HEMOGLOBIN g/dL 12.5 HEMATOCRIT % 38.4 PLATELETS K/cumm 293 Lab Results Component Value Date CHOL 266 (H) 07/16/2020 TRIG 337 (H) 07/16/2020 HDL 51 07/16/2020 LDL 163 (H) 04/06/2014 Lab Results Component Value Date TSH 10.02 (H) 10/29/2020 T3FREE 3.00 04/05/2013 FREET4 1.01 04/05/2013 Testing: No results found. No results found for this or any previous visit.] CARDIOGRAPHICS: ECG: Sinus Rhythm, LAE Impression and Plan: Diagnoses and all orders for this visit: Essential hypertension (Primary) Assessment & Plan: Continue on increased Losartan. Monitor BP at home. Lightheadedness Thank you for the consult. We will be happy to follow in this patient's care. MARTELL Campbell@12:28 PM Cc:Cassius Ortega NP documented in this encounter Miscellaneous Notes * Assessment & Plan Note - Charly Olson MD - 11/01/2020 12:23 PM CDT Associated Problem(s): Primary hypertension Continue on increased Losartan. Monitor BP at home. documented in this encounter Plan of Treatment Not on file documented as of this encounter Visit Diagnoses Diagnosis Essential hypertension- Primary Unspecified essential hypertension Lightheadedness Dizziness and giddiness documented in this encounter Care Teams Mixer Helper Relationship Specialty Start [place] [address] [facility] [address] [place] [address] PCP - General Family Medicine 02/21/19 documented as of this encounter
--- OUTSIDE RECORDS SUMMARY | 2024-08-09 23:32 | XMS_ITS | Encounter Summary ---
Author Organization 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 Gender Identity Not on file Sexual [...] Priority Date/Time Associated Diagnosis Comments EGFR Routine 10/29/2020 2:46 PM CDT Fatigue, unspecified type Bradycardia DIFFERENTIAL AUTO Routine 10/29/2020 2:4 6 PM CDT Fatigue, unspecified type Bradycardia CBC WITH AUTO DIFFERENTIAL Routine 10/29/2020 2:46 PM CDT Fatigue, unspecified type Bradycardia TSH Routine 10/29/2020 2:46 PM CDT Fatigue, unspecified type Bradycardia COMPREHENSIVE METABOLIC PANEL Routine 10/29/2020 2:46 PM CDT Fatigue, unspecified type Bradycardia documented in this encounter Results * eGFR (10/29/2020 2:46 PM CDT) [facility] eGFR 101 mL/min/1.7 3 m2 [facility] Comment: Interpretive Data Reference Interval Normal ?>/= 90 mL/min/1.73m2 Mildly decreased* ? 60 - 89 mL/min/1.73m2 Mildly to moderately decreased ?45 - 59 mL/min/1.73m2 Moderately to severely decreased ??30 - 44 mL/min/1.73m2 Severely decreased ?15 - 29 mL/min/1.73m2 Kidney Failure ?< 15 ??mL/min/1.73m2 *Relative to young adult level Estimated glomerular filtration rate is determined by the CKD-EPI equation recommended by the National Kidney Foundation (KDIGO 2012 Clinical Practice Guideline for the Evaluation and Management of Chronic Kidney Disease. Kidney Intnl Suppl Aug 2012;3:1). The CKD-EPI equation should not be used for patients with unstable renal function and has not been validated in children and those over 70. Current interpretive data was last reviewed 2020 Blood specimen (specimen) 10/29/2020 2:46 PM CDT 10/29/2020 4:15 PM CDT us Cassius Ortega BUFF WHEEL FABRICATOR LAB BLOOD ORDERABLES Final Re sult [facility] [address] Department [place] [address] * Differential, auto (10/29/2020 2:46 PM CDT) Neutrophil abs 6.4 1.7 - 6.5 K/cumm [facility] Imm gran abs 0.0 0.0 - 0.1 K/cumm [facility] Lymphocyte abs 2.3 0.8 - 3.3 K[facility]cumm [facility] Monocyte abs 0.7 0.2 - 0.8 K/cumm [facility] Eosinophil abs 0.1 0.0 - 0.5 K/cumm [facility] Basophil abs 0.0 0.0 - 0.1 K/cumm [facility] Neutrophil pct 66.7 % [facility] Comment: Interpretive Data Percent cell count reference ranges are not reported, since discordance with absolute values may lead to misinterpretation of CBC data. Current Interpretive Data was last revised on 2017. Imm gran pct 0.4 % [facility] Comment: Interpretive Data Percent cell count reference ranges are not reported, since discordance with absolute values may lead to misinterpretation of CBC data. Current Interpretive Data was last revised on 2017. Lymphocyte pct 24.5 % [facility] Comment: Interpretive Data Percent cell count reference ranges are not reported, since discordance with absolute values may lead to misinterpretation of CBC data. Current Interpretive Data was last revised on 2017. Monocyte pct 7.2 % [facility] Comment: Interpretive Data Percent cell count reference ranges are not reported, since discordance with absolute values may lead to misinterpretation of CBC data. Current Interpretive Data was last revised on 2017. Eosinophil pct 0.8 % [facility] Comment: Interpretive Data Percent cell count reference ranges are not reported, since discordance with absolute values may lead to misinterpretation of CBC data. Current Interpretive Data was last revised on 2017. Basophil pct 0.4 % [facility] Comment: Interpretive Data Percent cell count reference ranges are not reported, since discordance with absolute values may lead to misinterpretation of CBC data. Current Interpretive Data was last revised on 2017. Blood specimen (specimen) 10/29/2020 2:46 PM CDT 10/29/2020 3:13 PM CDT Cassius Ortega BUFF WHEEL FABRICATOR LAB BLOOD ORDERABLES Final Re sult [facility] [address] Department [place] [address] * CBC with auto differential (10/29/2020 2:46 PM CDT) WBC 9.6 3.8 - 9.9 K/cumm [facility] Hgb 12.5 11.9 - 15.5 g/dL [facility] Hct 38.4 35.6 - 45.5 % [facility] Plt 293 150 - 400 K/cumm [facility] MPV 9.2 9.1 - 12.3 fL [facility] RBC 4.15 3.90 - 5.20 M/cumm [facility] MCV 92.5 81.3 - 96.4 fL [facility] MCH 30.1 27.1 - 33.3 pg [facility] MCHC 32.6 32.3 - 35.7 g/dL [facility] RDW CV 13.1 11.1 - 14.9 % [facility] RDW SD 44.8 35.7 - 48.1 fL [facility] NRBC abs 0.00 0.00 - 0.01 K/cumm [facility] Blood specimen (specimen) 10/29/2020 2:46 PM CDT 10/29/2020 3:13 PM CDT Cassius Ortega BUFF WHEEL FABRICATOR LAB BLOOD ORDERABLES Final Re sult Performing Organization Address City/[facility]/ZIP Co de Phone Number [facility] [address] Department [place] [address] * Comprehensive metabolic panel (10/29/2020 2:46 PM CDT) Sodium 136 135 - 145 mmol/L [facility] Potassium, pl 4.3 3.3 - 4.9 mmol/L [facility] Chloride 104 97 - 110 mmol/L [facility] CO2 24 22 - 32 mmol/L [facility] Anion gap 8 2 - 15 mmol/L [facility] BUN 15 8 - 25 mg/dL [facility] Creatinine 0.71 0.60 - 1.10 mg/dL [facility] Glucose 89 70 - 199 mg/dL [facility] Comment: [...] interpretive data was last revised 2017. Calcium 9.4 8.5 - 10.3 mg/dL [facility] Bilirubin, total 0.2 0.1 - 1.2 mg/dL [facility] Protein, pl 7.5 6.5 - 8.5 g/dL [facility] Albumin 4.6 3.5 - 5.0 g/dL [facility] Alk phos 63 40 - 130 Units/L [facility] ALT 22 7 - 45 Units/L [facility] AST 23 10 - 45 Units/L [facility] Blood specimen (specimen) 10/29/2020 2:46 PM CDT 10/29/2020 3:13 PM CDT Cassius Ortega BUFF WHEEL FABRICATOR LAB BLOOD ORDERABLES Final Re sult [facility] [address] Department [place] [address] * (ABNORMAL) TSH (10/29/2020 2:46 PM CDT) Thyroid Stimulating Hormone 10.02(H) 0.30 - 4.20 mcIUnit/mL [facility] Blood specimen (specimen) 10/29/2020 2:46 PM CDT 10/29/2020 3:13 PM CDT Cassius Ortega NP LAB BLOOD ORDERABLES Final Re sult Performing Organization Address [facility] Co de Phone Number [facility] [address] Department [place] [address] documented in this encounter Visit Diagnoses Diagnosis Fatigue, unspecified type Bradycardia Other specified cardiac dysrhythmias documented in this encounter Care Teams Printing Machine Operator Tape Rules Relationship Specialty [place] [address] [address] [facility] [address] [place] [address] PCP - General Family Medicine 02/21/19 documented as of this encounter
--- OUTSIDE RECORDS SUMMARY | 2024-08-09 23:32 | XMS_ITS | Encounter Summary ---
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 documented in this encounter Plan of Treatment Not on file documented as of this encounter Visit Diagnoses Not on filedocumented in this encounter Care Teams Contact Worker Relationship Specialty [place] [address] [address] [address] PCP - General Family Medicine 02/21/19 documented as of this encounter
--- OUTSIDE RECORDS SUMMARY | 2024-08-09 23:32 | XMS_ITS | Encounter Summary ---
Author Organization [facility] Medical Group Address [address] [facility] [address] [place] [address] Care Team Providers Care Etcher Hand Name Role Phone Cassius Ortega NP Primary Care Provider [phone] Reason for Visit * Reason Onset Date Comments Staff Anesthesiologist any - General Medical Question 03/24/2021 Encounter Details Date Type Department Care Team (Late st Contact Info) Description 03/24/2021 Telephone Family Care at [address] [address] Cassius Ortega NP [address] [place] [address] [address] Nawaf ortega - General Medical Question Social History Tobacco Use Types Packs/Day Years [...] file 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 * Telephone Encounter - Cassius Ortega NP - 03/24/2021 2:16 PM CDT We need to see her and check her pressure. * Telephone Encounter - Che Durán - 03/24/2021 11:27 AM CDT General Medical Question/Miscellaneous-Sent Message: Caller's Concern: Due to patient's busy schedule, wants to know if she can just have labs done and then come in if needed. Ok if NAWAF Ortega wants an appointmen. Caller's Callback #: [phone] Did you relay expectation for processing (up to 24 hours)? yes documented in this encounter Plan of Treatment Not on file documented as of this encounter Visit Diagnoses Not on filedocumented in this encounter Care Teams Etcher Hand Relationship Specialty [place] [address] [address] PCP - General Family Medicine 02/21/19 documented as of this encounter
--- OUTSIDE RECORDS SUMMARY | 2024-08-09 23:32 | XMS_ITS | Encounter Summary ---
Author Organization [facility] Medical Group Address [address] [place] [address] [place] [address] Care Team Providers Care Project Lead Name Role Phone Cassius Ortega NP Primary Care Provider [phone] Reason for Visit * Reason Onset Date Comments Medical Question/Miscellaneous 06/16/2021 Encounter Details Date Type Department Care Team (Late st Contact Info) Description 06/16/2021 Telephone Family Care at [facility] [address] [address] Cassius Ortega NP [address] [place] [address] 2 [facility] [address] [place] [address] Medical Question/Miscellaneous Social History Tobacco Use [...] on file 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 Transferred to backline Caller???s Call back #: [phone] Does message need to be routed?No COORDINATOR documented in this encounter Plan of Treatment Not on file documented as of this encounter Visit Diagnoses Not on filedocumented in this encounter Additional Health Concerns Infection Onset Date Last Indicated Resolved Time COVID: Suspected 07/15/2021 07/15/2021 07/29/2021 3:05 AM ACO COORDINATOR documented as of this encounter Care Teams Project Lead Relationship Specialty [place] [address] [address] [facility] [address] [address] PCP - General Family Medicine 02/21/19 documented as of this encounter
--- OUTSIDE RECORDS SUMMARY | 2024-08-09 23:32 | XMS_ITS | Encounter Summary ---
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 Gender Identity Not on file Sexual Orientation [...] Procedure Name Priority Date/Time Associated Diagnosis Comments TSH Routine 05/02/2021 11:59 AM CDT Hypothyroidism, unspecified type documented in this encounter Results * TSH (05/02/2021 11:59 AM CDT) Thyroid Stimulating Hormone 0.33 0.30 - 4.20 mcIUnit/mL [facility] Blood 05/02/2021 11:5 9 AM CDT 05/02/2021 5:14 PM CDT us Cassius Ortega NP LAB BLOOD ORDERABLES Final Re sult [facility] [address] [address] Department [place] [address] documented in this encounter Visit Diagnoses Diagnosis Hypothyroidism, unspecified type documented in this encounter Care Teams Director Sports Relationship Specialty Start [place] [address] [address] [place] [address] PCP - General Family Medicine 02/21/19 documented as of this encounter
--- OUTSIDE RECORDS SUMMARY | 2024-08-09 23:32 | XMS_ITS | Encounter Summary ---
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 documented in this encounter Plan of Treatment Not on file documented as of this encounter Visit Diagnoses Not on filedocumented in this encounter Discontinued Medications Medication Sig Discontinue Reason Start Date End Da te losartan (COZAAR) 50 mg tablet Take 1 tablet by mouth once daily 10/21/2020 11/26/2020 documented as of this encounter Care Teams Bus Assistant Relationship Specialty [place] [address] [facility] [address] [address] PCP - General Family Medicine 02/21/19 documented as of this encounter
--- OUTSIDE RECORDS SUMMARY | 2024-08-09 23:32 | XMS_ITS | Encounter Summary ---
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 Jordan - nurse visit 11/21/2020 Encounter Details Date Type Department Care Team (Late st Contact Info) Description 11/21/2020 Telephone Family Care at [address] [address] Cassius Ortega, NAWAF [address] [place] [address] [address] COMMERCIAL CONSTRUCTION ESTIMATOR Jordan - nurse visit Social History Tobacco Use Types Packs/Day Years [...] on file 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 * Telephone Encounter - Lita Murguia MA - 11/21/2020 10:23 AM CDT Left message to call office regarding inject. Pt has not been seen since 2019. Pt needs an visit with Cassius Ortega before a shot can be given. * Telephone Encounter - Savita Garcia - 11/21/2020 8:38 AM CDT Initial request for labs, injections, and/or nurse visit: Type of Service Requested: nurse visit Reason for request (reason/symptom): tetanus shot for work Does patient want to have service performed at practice? Yes If patient wants service performed outside of practice, where (facility name, address, phone, and/or fax or is patient picking up order): no Caller???s Callback #: [phone] Additional Comments: Did you relay expectation for processing (allow up to 24 hours for call back)? Yes documented in this encounter Plan of Treatment Not on file documented as of this encounter Visit Diagnoses Not on filedocumented in this encounter Care Teams Supplier Specialist Relationship Specialty [place] [address] [facility] [address] [place] [address] PCP - General Family Medicine 02/21/19 documented as of this encounter
--- OUTSIDE RECORDS SUMMARY | 2024-08-09 23:32 | XMS_ITS | Encounter Summary ---
Author Organization [facility] Medical Group Address [address] [facility] [address] [place] [address] Care Team Providers Care Agency Sales Management Assistant Name Role Phone Cassius Ortega NP Primary Care Provider Reason for Visit * Reason Onset Date Comments Test Results 10/30/2020 Ortega- Call Back 10/30/2020 Encounter Details Date Type Department Care Team (Late st Contact Info) Description 10/30/2020 Telephone Family Care at [address] [place] [address] Lita Murguia CMA Test Results; Ortega- Call Back Social History Tobacco Use Types Packs/Day Years [...] on file 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 HAKEEM relayed message from below and patient expressed understanding. * Telephone Encounter - Lita Murguia MA - 10/30/2020 11:49 AM CDT Left message to call office regarding test results. * Telephone Encounter - Lita Murguia MA - 10/30/2020 11:47 AM CDT ----- Message from Cassius Ortega NP sent at 10/30/2020 8:23 AM CDT ----- Please let the pt know her thyroid level is elevated, I will send in an increased dose of thyroid medication. She will need to repeat the test in 8 weeks. documented in this encounter Plan of Treatment Not on file documented as of this encounter Visit Diagnoses Not on filedocumented in this encounter Care Teams Agency Sales Management Assistant Relationship Specialty Start [place] [address] [address] [address] PCP - General Family Medicine 02/21/19 documented as of this encounter
--- OUTSIDE RECORDS SUMMARY | 2024-08-09 23:32 | XMS_ITS | Encounter Summary ---
Author Organization 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 Gender Identity Not on file Sexual Orientation Not on file 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
--- OUTSIDE RECORDS SUMMARY | 2024-08-09 23:32 | XMS_ITS | Encounter Summary ---
Author Organization [facility] Healthcare Address [address] [place] [address] Care Team Providers Care Manager Of Quality Name Role Phone Cassius Ortega NP Primary Care Provider [phone] Reason for Visit * Reason Onset Date Comments COVID-19 EVALUATION 10/28/2020 Encounter Details Date Type Department Care Team (Late st Contact Info) Description 10/28/2020 Telephone [facility] [address] [place] [address] Room 3420 (Third Floor) [place] [address] Aye Ballard, RN COVID-19 EVALUATION Social History Tobacco Use Types Packs/Day Years [...] on file 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 Gender Identity Not on file Sexual Orientation Not on file 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 Employee Employee Employee Employer: [employer] Employee Facility: [facility] Does your job primarily involve providing care for bone marrow transplant patients? 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 On-site On-site On-site Have you been tested for Covid-19 previously? Yes Yes Yes What was the date of your prior test? 12/26/2019 - - What was the result of your prior test? Negative - - Have you ever had a positive COVID-19 swab or saliva test? - No No What was the date of your most recent negative test? - 05/03/2020 05/03/2020 Have you had a known, specific COVID exposure within the last 14 days? Yes No Yes Did the exposure take place at work / on campus? No - No Date of exposure: 05/01/2020 - 10/23/2020 Date of Exposure Comment - - Symptoms began 10/20/2020 Name of the COVID-19 positive person to whom you were exposed: Arsalan Paz - Александр Was the person to whom you were exposed wearing a mask/face covering? No - No Date of the COVID-19 test for the person to whom you were exposed: 05/03/2020 - 10/28/2020 Test result of the person to whom you were exposed: Positive - Positive What PPE was employee wearing? 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 Yes No Yes Symptoms at Work Comment - - was at work fo two hours Date symptoms started: 05/03/2020 10/10/2020 10/25/2020 Date last worked: 05/03/2020 10/09/2020 10/28/2020 Do you currently live with, or have ongoing contact with, someone known or suspected to have COVID-19? No No No Live with Someone Comment Person does not live with patient - - Exposure Risk (See Exposure Guide): High No known or low risk exposure Known significant exposure Assessment: Symptomatic, non-occupational Symptomatic, unknown exposure Symptomatic, non-occupational Plan: (A) Stay home and test (F) Vaccine Reaction - Defer testing (A) Stay home and test for symptoms Testing Site Location: [facility] Notes: - - Patient will have someone drive her to the testing site as she is still dizzy or will wait until she is feeling better Script A1 (Stay home and test) for symptomatic HCW with known significant exposure Given your symptoms, you should not come to work and will be referred for testing. ??? Please go to the employee testing site at [place] [address] [place] [address]. ??? You will be tested for both COVID-19 and Influenza A and B ??? While you are awaiting testing and results, you must remain off work. ??? While waiting for results, home quarantine guidance still applies. You should isolate yourself at home, avoid contact with any household members as much as possible, and stay in your home withoutleaving except for medical care. If your symptoms worsen, please call back or call 911 - let your providers, ER or EMS know that you are being tested for COVID-19. ??? Once your results are back, you will receive further instruction from Occupational Health. Don't return to work until you hear from [facility]. 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 ??? Should your test result positive, [facility] will work with you to identify any close contacts you may have had at work. [facility] will then alert your work contacts directly; you do not have to. Your supervisor bonding should consult with [facility] if they have any questions and before any communication with coworkers about a positive test. [facility] will help ensure that coworkers potentially at risk are notified and given appropriate advice without unnecessary disclosure of personal health information. ??? We will send you an email with self-quarantine instructions (see [facility] Guidance for At-Home Isolation: Employees). ??? You must follow any additional isolation or quarantine instructions provided to you from federal, state or local public health authorities. ??? You should let your supervisor bonding know that you will not be coming to work. Although the Call Center will email your supervisor bonding to confirm that you have been instructed not to come to work, it is still your responsibility to notify your supervisor bonding as you would for any other work absence. You should receive an email from the call center with these instructions. The email will come from [email or web address]; if you do not receive it, please check to see if your email traffic observer has automatically routed it to [email or web address]. documented in this encounter Plan of Treatment Not on file documented as of this encounter Results * Influenza A/B and COVID-19 PCR ([facility] ONLY) Nasopharyngeal (10/28/2020 3:21 PM CDT) COVID-19 RNA Not Detected [facility] Comment: Interpretive Data Synonyms for this test include: PCR and NAAT . ??Testing performed by the [facility]. The 2019-Novel Coronavirus [...] was last revised on September 05, 2020. Influenza A RNA Not Detected [facility] Influenza B RNA Not Detected [facility] Comment: Interpretive Data Testing performed by the [facility]. This test is performed using the jessica Influenza A/B Assay. This is a real-time RT-PCR test for the qualitative detection of nucleic acid from Influenza A and Influenza B. This assay has been reviewed by the FDA for Emergency Use Authorization (EUA). The performance characteristics have been verified by the [facility]. Results should be interpreted in combination with clinical context and a negative result does not rule out infection. ?? Interpretive data last revised 2020. First COVID-19 test? No [facility] Employeed in healthcare? Yes [facility] status? No [facility] Group care resident? No [facility] Hospitalized? No [facility] Is patient in ICU? No [facility] Symptomatic as defined by CDC? Yes [facility] Nasopharyngeal 10/28/2020 3: 21 PM CDT 10/28/2020 7:23 PM CDT Narrative [facility] - 10/29/2020 6:14 AM CDT Patient is employed by/enrolled at:->[employer] Date of Symptom Onset->10/25/20 us Alley Ricketts MD LAB MICROBIOLOGY - GENERAL ORDERABLES Final Result [facility] Department [place] [address] documented in this encounter Visit Diagnoses Diagnosis Diarrhea, unspecified type- Primary Diarrhea, unspecified type documented in this encounter Additional Health Concerns Infection Onset Date Last Indicated Resolved Time COVID: Suspected 10/28/2020 10/28/2020 10/29/2020 6:16 AM CDT documented as of this encounter Care Teams Manager Of Quality Relationship Specialty [place] [address] [address] PCP - General Family Medicine 02/21/19 documented as of this encounter
--- OUTSIDE RECORDS SUMMARY | 2024-08-09 23:32 | XMS_ITS | Encounter Summary ---
Author Organization [facility] Medical Group Address [address] [address] Care Team Providers Care Ferry Engineer Name Role Phone Cassius Ortega NP Primary Care Provider [phone] Reason for Referral * Sleep Medicine (Routine) - Closed Specialty Diagnoses / Procedures Referred By Cara alvarez Referred To Contact Diagnoses Obstructive sleep apnea syndrome Procedures Portable/[place] [address] [address] [facility] [address] [address] Phone: tel: fax: [address] [address] Referral ID Status Reason Start Date Expiration Date Visits Re quested Visits Authorized [id number] Closed 04/18/2021 07/17/2021 1 1 Encounter Details Date Type Department Care Team (Late st Contact Info) Description 04/14/2021 9:30 AM CDT Office Visit Family Care at [address] [address] [place] [address] [address] [facility] [address] [address] Hypothyroidism, unspecified type (Primary Dx); Obstructive sleep apnea syndrome; Need for hepatitis B vaccination; Primary hypertension Social History Tobacco Use Types [...] on file 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 Gender Identity Not on file Sexual Orientation Not on file 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 female. Chief Complaint No chief complaint on file. Pt here for follow up on her htn and hypothyroidism. She states she has had a couple of episodes ofheart fluttering/palpitations which was directly followed by a cough. She states she has been told she has sleep apnea - a RIB CLOTH KNITTER advised her that when she was sedated she had sleep apnea. She states she has been told she snores vigorously. She states she has gained weight since her hysterectomy and this concerns her. Hypertension This is a chronic problem. The current episode started more than 1 year ago. The problem is unchanged. The problem is controlled. Pertinent negatives include no anxiety, chest pain, headaches or shortness of breath. The current treatment provides significant improvement. Review of Systems Constitutional: Negative for fatigue [...] Diagnoses and all orders for this visit: Hypothyroidism, unspecified type (E03.9) (Primary) Assessment & Plan: Needs TSH Orders: - TSH; Future Obstructive sleep apnea syndrome (G47.33) Comments: will have home sleep study Orders: - Portable/Home Sleep Study; Future Need for hepatitis B vaccination (Z23) - Hepatitis B vaccine adult IM Primary hypertension (I10) Assessment & Plan: Continue losartan b/p stable and to goal at 126/76 - goal of less than 135/85 documented in this encounter Miscellaneous Notes * Assessment & Plan Note - Cassius Ortega NP - 04/14/2021 1:56 PM CDT Associated Problem(s): Hypothyroidism Needs TSH * Assessment & Plan Note - Cassius Ortega NP - 04/14/2021 1:56 PM CDT Associated Problem(s): Primary hypertension Continue losartan b/p stable and to goal at 126/76 - goal of less than 135/85 documented in this encounter Plan of Treatment Not on file documented as of this encounter Results * Portable/Home Sleep Study (05/05/2021) Impressions Daniele Morse MD - 05/05/2021 Indication for study: ??Ms. Paz is a 46-year-old with chief complaints of snoring, unrefreshing sleep and excessive daytime fatigue and sleepiness. ?? Vital statistics: ??Age: ??46 years ? Height: ??65 in ? Weight: ??227 lb ?BMI: ??37.9 ?? Procedure: ??The patient underwent a ??single night diagnostic study utilizing unattended FDA approved ResMed apnea link home air portable monitoring device investigating for obstructive sleep apnea. ??The patient was provided instruction of the device and application by the registered mechatronics technologist at the [facility]. ??The study included channels of heart rate, body position, respiratory effort, respiratory airflow, snoring and oxygen saturation analysis. ??The study was a analyzed by the mechatronics technologist and the raw data was reviewed by the board certified sleep physician. ?? Description of polysomnography findings: ??The patient had 7 hours and 25 minutes of monitored time. ??6 hours and 41 minutes of flow evaluation was present. ??7 hours and 9 minutes of oxygen saturation analysis was present. ?? The apnea-hypopnea index was 16.7. ??The AHI was 38.4 in supine position, and 8.5 in the nonsupine position. ??There were 13 obstructive apneas and 99 hypopneas recorded. ??Baseline oxygen saturation 97%. ??Lowest oxygen saturation was 77%. ??Average oxygen saturation was 94%. ??The oxygen desaturation index was 21.1. ??There were 151 oxygen desaturation episodes recorded. ?? Pulse evaluation revealed maximum 106 beats per minute, minimum 56 beats minute average of 66 beats per minute. ?? Impression: 1. Moderate obstructive sleep apnea syndrome. 2. This is severe in the supine position. 3. Consider Positive Airway Pressure (PAP) devices such as continuous PAP (CPAP), auto-adjusting PAP (APAP), and bi-level PAP (Bi-PAP). 4. CPAP titration to determine optimal pressure required to alleviate sleep disordered breathing 5. Sleep hygiene should be reviewed to assess factors that may improve sleep quality. 6. Weight management and regular exercise should be initiated or continued 7. Avoid alcohol sedatives and other PREDATORY ANIMAL EXTERMINATOR depression that may worsen sleep apnea and disrupt normal sleep architecture 8. Patients with sleep apnea may have significant daytime hypersomnolence. If that is the case, driving or handling heavy machinery should be avoided until the apnea and excessive sleepiness have resolved. ? Limitations of the study: 1. A sleep EEG was not recorded; therefore, the actual amount of time spent in sleep, stages of sleep and respiratory events associated with arousals cannot be determined by this study. 2. All indexes are computed against monitoring time, not total sleep time. For this reason, the degree of severity may be underestimated 3. The severity of the sleep apnea may vary from night to night depending on body position during sleep, REM sleep and sleep efficiency. These factors should be taken into consideration.? * Please note: The severity of the sleep apnea may vary from night to night depending on body position during sleep, REM sleep and sleep efficiency. These factors should be taken into consideration. us Cassius Ortega CO FOUNDER [employer] CTO SLEEP CENTER ORDERABLES Final Result * TSH (05/02/2021 11:59 AM CDT) Thyroid Stimulating Hormone 0.33 0.30 - 4.20 mcIUnit/mL [facility] Blood 05/02/2021 11:5 9 AM CDT 05/02/2021 5:14 PM CDT us Cassius Ortega NP LAB BLOOD ORDERABLES Final Re sult [facility] [address] [address] Department [place] [address] documented in this encounter Visit Diagnoses Diagnosis Hypothyroidism, unspecified type- Primary Obstructive sleep apnea syndrome Obstructive sleep apnea (adult) (pediatric) Need for hepatitis B vaccination Primary hypertension Unspecified essential hypertension Obstructive sleep apnea syndrome Obstructive sleep apnea (adult) (pediatric) documented in this encounter Orders Immunization/Injection Count Last Ordered Date First Ordered Date HEPATITIS B VACCINE ADULT IM 1 04/14/2021 documented in this encounter Care Teams Ferry Engineer Relationship Specialty Start Date End Date Cassius Ortega, NAWAF [address] [address] [facility] [address] [address] PCP - General Family Medicine 02/21/19 documented as of this encounter
--- OUTSIDE RECORDS SUMMARY | 2024-08-09 23:32 | XMS_ITS | Encounter Summary ---
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 [employer]LE[employer] Gender Identity Not on file Sexual Orientation Not on file 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 documented as of this encounter Ordered Prescriptions Prescription Sig Dispense Quantity Refills Last Filled Start Date End Date levothyroxine (SYNTHROID) 175 mcg tablet Take 1 tablet (175 mcg total) by mouth daily 30 tablet 11 10/30/2020 02/20/2021 documented in this encounter Plan of Treatment Not on file documented as of this encounter Visit Diagnoses Not on filedocumented in this encounter Discontinued Medications Medication Sig Discontinue Reason Start Date End Da te levothyroxine (SYNTHROID) 150 mcg tabletIndications:hypot hyroidism Take 1 tablet (150 mcg total) by mouth weight loss sales consultant before breakfast 07/01/2020 10/30/2020 documented as of this encounter Care Teams Reservations Agent Relationship Specialty [place] [address] [address] [facility] [address] [address] PCP - General Family Medicine 02/21/19 documented as of this encounter
--- OUTSIDE RECORDS SUMMARY | 2024-08-09 23:32 | XMS_ITS | Encounter Summary ---
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 * Telephone Encounter - Lita Murguia MA - 12/04/2020 2:51 PM CDT ----- Message from Cassius Ortega NP sent at 12/04/2020 2:50 PM CDT ----- Please let the pt know her xray was normal documented in this encounter Plan of Treatment Not on file documented as of this encounter Visit Diagnoses Not on filedocumented in this encounter Care Teams Senior Integration Architect Relationship Specialty Start [place] [address] [address] [address] PCP - General Family Medicine 02/21/19 documented as of this encounter
--- OUTSIDE RECORDS SUMMARY | 2024-08-09 23:32 | XMS_ITS | Encounter Summary ---
Author Organization [facility] Healthcare Address [address] [place] [address] Care Team Providers Care Skewer Up Name Role Phone Cassius Ortega NP Primary Care Provider [phone] Reason for Referral * Diagnostic Imaging (Routine) - Closed Specialty Diagnoses / Procedures Referred By Cara alvarez Referred To Contact Diagnoses Screening-pulmonary TB Procedures XR Chest 1 [place] [address] [address] [facility] [address] [place] [id number] Phone: tel: fax: [address] [address] Referral ID Status Reason Start Date Expiration Date Visits Re quested Visits Authorized [id number] Closed 12/04/2020 01/03/2022 1 1 Reason for Visit * Diagnostic Imaging (Routine) - Closed Specialty Diagnoses / Procedures Referred By Contac t Referred To Contact Diagnoses Screening-pulmonary TB Procedures XR Chest 1 [place] [address] [address] [facility] [address] [place] [id number] Phone: tel: fax: [address] [phone] Referral ID Status Reason Start Date Expiration Date Visits Re quested Visits Authorized [id number] Closed 12/04/2020 01/03/2022 1 1 Encounter Details Date Type Department Care Team (Latest Contact Info) Description 12/04/2020 1:20 PM CDT - 12/04/2020 11:59 PM CDT Hospital Encounter [facility] Imaging [address] [place] [address] [place] [address] [address] [place] [address] [facility] [address] [address] Screening-pulmonary TB Discharge Disposition: Discharge to home or self [...] on file Legal Sex Female 1:09 AM COP Gender Identity Not on file Sexual Orientation Not on file 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 documented as of this encounter Medications at Time of Discharge ibuprofen (ADVIL,MOTRIN) 600 mg tablet Take 1 tablet (600 mg total) by mouth 4 (four) times a day as needed for pain (pain) 90 tablet 12/29/2019 12/28/2020 atorvastatin (LIPITOR) 10 mg tablet Take 1 tablet (10 mg total) by mouth daily 90 tablet 3 07/23/2020 02/20/2021 citalopram (CeleXA) 40 mg tabletIndications :Anxiety with Depression Take 1 tablet (40 mg total) by mouth every morning 90 tablet 3 07/01/2020 02/20/2021 levothyroxine (SYNTHROID) 175 mcg tablet Take 1 tablet (175 mcg total) by mouth daily 30 tablet 11 10/30/2020 02/20/2021 losartan (COZAAR) 100 mg tablet Take 1 tablet (100 mg total) by mouth daily 30 tablet 11 11/26/2020 02/20/2021 documented as of this encounter Discharge Disposition Disposition Code Departure Means Destination Discharge to home or self care documented in this encounter Plan of Treatment Not on file documented as of this encounter Procedures Procedure Name Priority Date/Time Associated Diagnosis Comments XR CHEST 1 VIEW Schedule Routine, Read Routine (OP Routine) 12/04/2020 1:26 PM CDT Screening-pulmonar y TB documented in this encounter Results * XR Chest 1 Vw (12/04/2020 1:26 PM CDT) Anatomical Region Laterality Modality Body, Chest N/A Computed Radiogr aphy 12/04/2020 1:29 PM CDT Impressions 12/04/2020 1:29 PM CDT Negative study. Electronically signed by: Jostin Barger M.D. Narrative 12/04/2020 1:29 PM CDT EXAMINATION: XR CHEST 1 VIEW HISTORY: The patient is a 45-year-old female has a positive skin test for TB. Comparison is made with the previous study dated 04/13/2019. TECHNIQUE: Single PA view of the chest. FINDINGS: Lungs clear. ??Cardiovascular structures unremarkable. Procedure Note Jostin Barger MD - 12/04/2020 EXAMINATION: XR CHEST 1 VIEW HISTORY: The patient is a 45-year-old female has a positive skin test for TB. Comparison is made with the previous study dated 04/13/2019. TECHNIQUE: Single PA view of the chest. FINDINGS: Lungs clear. Cardiovascular structures unremarkable. IMPRESSION: Negative study. Electronically signed by: Jostin Barger M.D. Cassius Ortega NP IMG XR PROCEDURES Final Resul t documented in this encounter Visit Diagnoses Diagnosis Screening-pulmonary TB Screening examination for pulmonary tuberculosis documented in this encounter Care Teams Skewer Up Relationship Specialty Start [place] [address] [address] [facility] [address] [address] PCP - General Family Medicine 02/21/19 documented as of this encounter
--- OUTSIDE RECORDS SUMMARY | 2024-08-09 23:32 | XMS_ITS | Encounter Summary ---
Author Organization [facility] Healthcare Address [address] [place] [address] Care Team Providers Care Route Delivery Supervisor Name Role Phone Cassius Ortega NP Primary Care Provider [phone] Reason for Referral * Sleep Medicine (Routine) - Closed Specialty Diagnoses / Procedures Referred By Cara alvarez Referred To Contact Diagnoses Obstructive sleep apnea syndrome Procedures Portable/[place] [address] [address] [facility] [address] [place] [address] Phone: tel: fax: [address] [phone] Referral ID Status Reason Start Date Expiration Date Visits Re quested Visits Authorized [id number] Closed 04/18/2021 07/17/2021 1 1 Reason for Visit * Sleep Medicine (Routine) - Closed Specialty Diagnoses / Procedures Referred By Cara alvarez Referred To Contact Diagnoses Obstructive sleep apnea syndrome Procedures Portable/[place] [address] [address] [facility] [address] [place] [address] Phone: tel: fax: [address] [phone] Referral ID Status Reason Start Date Expiration Date Visits Re quested Visits Authorized [id number] Closed 04/18/2021 07/17/2021 1 1 Encounter Details Date Type Department Care Team (Latest Contact Info) Description 05/01/2021 2:00 PM CDT - 05/01/2021 11:59 PM CDT Hospital Encounter [facility] [address] [place] [phone] [place] [address] [facility] [address] [place] [address] [place] [address] [address] [facility] [address] [place] [address] Obstructive sleep apnea syndrome Discharge Disposition: Discharge to home or self [...] on file 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 Gender Identity Not on file Sexual Orientation Not on file 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 documented as of this encounter Medications at Time of Discharge atorvastatin (LIPITOR) 10 mg tablet Take 1 tablet (10 mg total) by mouth daily 90 tablet 3 02/20/2021 12/30/2021 citalopram (CeleXA) 40 mg tabletIndications :Anxiety with Depression Take 1 tablet (40 mg total) by mouth every morning 90 tablet 3 02/20/2021 12/30/2021 levothyroxine (SYNTHROID) 175 mcg tablet Take 1 tablet (175 mcg total) by mouth daily 30 tablet 11 02/20/2021 12/30/2021 losartan (COZAAR) 100 mg tablet Take 1 tablet (100 mg total) by mouth daily 30 tablet 11 02/20/2021 10/01/2021 documented as of this encounter Discharge Disposition Disposition Code Departure Means Destination Discharge to home or self care documented in this encounter Progress Notes * Daniele Morse MD - 05/01/2021 2:00 PM CDT Indication for study: Ms. Paz is a 46-year-old with chief complaints of snoring, unrefreshingsleep and excessive daytime fatigue and sleepiness. Vital statistics: Age: 46 years Height: 65 in Weight: 227 lb BMI: 37.9 Procedure: The patient underwent a single night diagnostic study utilizing unattended FDA approved [employer] apnea link home air portable monitoring device investigating for obstructive sleep apnea. Thepatient was provided instruction of the device and application by the registered chief cardiopulmonary technologist at the [facility]. The study included channels of heart rate, body position, respiratory effort, respiratory airflow, snoring and oxygen saturation analysis. The study was a analyzed by the chief cardiopulmonary technologist and the raw data was reviewed by the board certified sleep physician. Description of polysomnography findings: The patient had 7 hours and 25 minutes of monitored time. 6 hours and 41 minutes of flow evaluation was present. 7 hours and 9 minutes of oxygen saturation analysis was present. The apnea-hypopnea index was 16.7. The AHI was 38.4 in supine position, and 8.5 in the nonsupine position. There were 13 obstructive apneas and 99 hypopneas recorded. Baseline oxygen saturation 97%. Lowest oxygen saturation was 77%. Average oxygen saturation was 94%. The oxygen desaturation index was 21.1. There were 151 oxygen desaturation episodes recorded. Pulse evaluation revealed maximum 106 beats per minute, minimum 56 beats minute average of 66 beatsper minute. Impression: 1. Moderate obstructive sleep apnea syndrome. [...] continued 7. Avoid alcohol sedatives and other FEED MANAGER depression that may worsen sleep apnea and disrupt normal sleep architecture 8. Patients with sleep apnea may have significant daytime hypersomnolence. If that is the case, driving or handling heavy machinery should be avoided until the apnea and excessive sleepiness have resolved. Limitations of the study: 1. A sleep [...] efficiency. These factors should be taken into consideration.?? * Please note: The severity of the sleep apnea may vary from night to night depending on body position during sleep, REM sleep and sleep efficiency. These factors should be taken into consideration. documented in this encounter Miscellaneous Notes * Addendum Note - Daniele Morse MD - 05/01/2021 2:00 PM CDTEncounter addended by: Daniele Morse MD on: 05/05/2021 12:38 PM Actions taken: Clinical Note Signed, Charge Capture section accepted, Result filed documented in this encounter Plan of Treatment Not on file documented as of this encounter Procedures Procedure Name Priority Date/Time Associated Diagnosis Comments PORTABLE/HOME SLEEP STUDY Routine 05/05/2021 Obstructive sleep apnea syndrome documented in this encounter Results * Portable/Home Sleep Study [...] the device and application by the registered chief cardiopulmonary technologist at the [facility]. ??The study included channels of heart rate, body position, respiratory effort, respiratory airflow, snoring and oxygen saturation analysis. ??The study was a analyzed by the chief cardiopulmonary technologist and the raw data was reviewed [...] continued 7. Avoid alcohol sedatives and other FEED MANAGER depression that may worsen sleep apnea and [...] These factors should be taken into consideration. Cassius Ortega NP SLEEP CENTER ORDERABLES Final Result documented in this encounter Visit Diagnoses Diagnosis Obstructive sleep apnea syndrome Obstructive sleep apnea (adult) (pediatric) documented in this encounter Care Teams Route Delivery Supervisor Relationship Specialty Start Date End Date Cassius Ortega, NAWAF [address] [address] [facility] [address] [address] PCP - General Family Medicine 02/21/19 documented as of this encounter
--- OUTSIDE RECORDS SUMMARY | 2024-08-09 23:32 | XMS_ITS | Encounter Summary ---
Author Organization [facility] Healthcare Address [address] [place] [address] Care Team Providers Care Frame Assembler Name Role Phone Cassius Ortega NP Primary Care Provider [phone] Reason for Visit * Reason Onset Date Comments COVID-19 EVALUATION 10/11/2020 Encounter Details Date Type Department Care Team (Late st Contact Info) Description 10/11/2020 Telephone [facility] Healthcare Occupaticount includes the [facility] Health [address] [place] [address] Room [address] (Third Floor) [place] [address] Irene Wang RN COVID-19 EVALUATION Social History Tobacco Use Types Packs/Day Years Used Date Smoking Tobacco: Never Smokeless Tobacco: Never Alcohol Use Standard Drinks/Week Comments Yes 0 (1 standard drink = 0.6 oz pur e alcohol) socially PHQ-2 Answer Date Recorded PHQ-2 Score 2 05/15/2019 Comments No Sex and Gender Information Value Date Recorded Sex Assigned at Not on file Legal Sex Female 1:09 AM INFORMATION DIRECTOR Gender Identity Not on file Sexual Orientation Not on file 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 Employee Employee Employer: [employer] Employee Facility: [facility] Does your job primarily involve providing care for bone marrow transplant patients? 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 On-site On-site Have you been tested for Covid-19 previously? Yes Yes What was the date of your prior test? 12/26/2019 - What was the result of your prior test? Negative - Have you ever had a positive COVID-19 swab or saliva test? - No What was the date of your most recent negative test? - 05/03/2020 Have you had a known, specific COVID exposure within the last 14 days? Yes No Did the exposure take place at work / on campus? No - Date of exposure: 05/01/2020 - Name of the COVID-19 positive person to whom you were exposed: Arsalan Paz - Was the person to whom you were exposed wearing a mask/face covering? No - Date of the COVID-19 test for the person to whom you were exposed: 05/03/2020 - Test result of the person to whom you were exposed: Positive - What PPE was employee wearing? None - Description of exposure: Working together putting in a ceiling fan - Employee Symptoms: Yes Yes Date of employee symptom onset: 05/03/2020 10/10/2020 Date of Symptoms Comment - pm Description of Symptoms: Sore Throat Fever;Other Temperature: - 99.8 Other Symptoms: - headache Did you have symptoms at work? Yes No Date symptoms started: 05/03/2020 10/10/2020 Date last worked: 05/03/2020 10/09/2020 Do you currently live with, or have ongoing contact with, someone known or suspected to have COVID-19? No No Live with Someone Comment Person does not live with patient - Exposure Risk (See Exposure Guide): High No known or low risk exposure Assessment: Symptomatic, non-occupational Symptomatic, unknown exposure Plan: (A) Stay home and test (F) Vaccine Reaction - Defer testing Testing Site Location: [facility] - Because you have symptoms, you should NOT report to work (or school). Because your symptoms might be due to a vaccine reaction, if your symptoms completely resolve within 48 hours, you may go back towork (or school) without restrictions. If your symptoms persist for more than 48 hours, you should call back for re-assessment. i. Because your symptoms may be a vaccine reaction, we do not recommend COVID testing at this time. ii. You should monitor your symptoms at home. If you develop any respiratory symptoms (cough, congestion, shortness of breath), please call us back for re-assessment. iii. You should let your telesales supervisor know that you will not be coming to work. Although the Call Center will email your telesales supervisor to confirm that you have been instructed not to come to work, it is still your responsibility to notify your telesales supervisor as you would for any other work absence. RMATION DIRECTOR documented in this encounter Plan of Treatment Not on file documented as of this encounter Visit Diagnoses Not on filedocumented in this encounter Care Teams Frame Assembler Relationship Specialty [place] [address] [address] PCP - General Family Medicine 02/21/19 documented as of this encounter
--- OUTSIDE RECORDS SUMMARY | 2024-08-09 23:32 | XMS_ITS | Encounter Summary ---
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 Gender Identity Not on file Sexual Orientation [...] Procedure Name Priority Date/Time Associated Diagnosis Comments MEASLES IGG ANTIBODY Routine 12/04/2020 1:00 PM CDT Annual physical exam HEPATITIS B CORE ANTIBODY, TOTAL Routine 12/04/2020 1:00 PM CDT Annual physical exam RUBELLA IGG Routine 12/04/2020 1:00 PM CDT Annual physical exam VARICELLA ZOSTER ANTIBODY, IGG Routine 12/04/2020 1:00 PM CDT Annual physical exam MUMPS IGG ANTIBODY Routine 12/04/2020 1: 00 PM CDT Annual physical exam documented in this encounter Results * (ABNORMAL) Mumps antibody, IgG (12/04/2020 1:00 PM CDT) Mumps IgG Positive( A) Negative [facility] Comment: Interpretive Data Negative: No detectable IgG antibody to mumps. Such individuals are presumed to be uninfected with the mumps and to be susceptible to primary infection. Equivocal: Presence or absence of the Mumps IgG antibody cannot be determined. Positive: Indicates presence of detectable IgG antibody to mumps. Indicative of current or previous infection or vaccination. The individual may be at risk of transmitting mumps infection, but is not necessarily currently contagious. Current interpretive data was last revised on 2016. Testing performed by: [facility], [address] [facility], [place]., [address] Blood specimen (specimen) 12/04/2020 1:00 PM CDT 12/05/2020 8:49 AM CDT us Cassius Ortega NP LAB MICROBIOLOGY - GENERAL OR DERABLES Final Result [facility] [address] [place] [address] * Rubella IgG (12/04/2020 1:00 PM CDT) Pathologist [facility] Rubella IgG Reactive [facility] Comment: Interpretive Data Nonreactive: ??No detectable antibody to rubella. Such individuals are presumed to be uninfected with rubella and to be susceptible to primary infection. Equivocal: Presence or absence of detectable antibody to rubella cannot be determined and test should be repeated. ?? Reactive: Indicates the presence of detectable antibody to rubella. ??Indicative of current or past infection or vaccination. Current Interpretive Data was last revised on 2020. Testing performed by: [facility], [address] [place] [address]., [address] Blood specimen (specimen) 12/04/2020 1:00 PM CDT 12/05/2020 8:49 AM CDT Cassius Ortega NP LAB MICROBIOLOGY - GENERAL OR DERABLES Final Result Performing Organization Address [facility] de Phone Number [facility] [address] [facility] [place] [address] * (ABNORMAL) Rubeola antibody IgG (12/04/2020 1:00 PM CDT) Pathologist [facility] Measles IgG Positive(A ) Negative [facility] Comment:Testing performed by : [facility], [address] [place] [address]., [address] Blood specimen (specimen) 12/04/2020 1:00 PM CDT 12/05/2020 8:49 AM CDT Cassius Ortega NP LAB MICROBIOLOGY - GENERAL OR DERABLES Final Result Performing Organization Address [facility] Co de Phone Number [facility] [address] [place] [address] * Varicella Zoster (VZV) IgG Blood (12/04/2020 1:00 PM CDT) VZV IgG Reactive Nonreactive [facility] Comment: IgG antibodies to Varicella Zoster virus detected.?? This may indicate that the patient was exposed to Varicella Zoster through??infection or vaccination. Testing performed by: [facility], [address] [place] [address]., [address] Blood specimen (specimen) 12/04/2020 1:00 PM CDT 12/05/2020 8:49 AM CDT Cassius Ortega NP LAB MICROBIOLOGY - GENERAL OR DERABLES Final Result [facility] [address] [place] [address] * Hepatitis B core antibody, total (12/04/2020 1:00 PM CDT) Pathologist [facility] Hep B core IgG/IgM Nonreactive Nonreactive [facility] Comment:Testing performed by : [facility], [address] [facility], [place]., [address] Blood specimen (specimen) 12/04/2020 1:00 PM CDT 12/05/2020 8:50 AM CDT Cassius Ortega NP LAB MICROBIOLOGY - GENERAL OR DERABLES Edited Result - Final [facility] [address] [place] [address] documented in this encounter Visit Diagnoses Diagnosis Annual physical exam Routine general medical examination at a health care facility documented in this encounter Care Teams Yeast Maker Relationship Specialty [place] [address] [address] [facility] [address] [place] [address] PCP - General Family Medicine 02/21/19 documented as of this encounter
--- OUTSIDE RECORDS SUMMARY | 2024-08-09 23:32 | XMS_ITS | Encounter Summary ---
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 * Telephone Encounter - Cassius Ortega NP - 12/09/2020 11:13 AM CDT I have sent the letter through [employer]. * Telephone Encounter - Lita Murguia MA - 12/09/2020 10:45 AM CDT Pt was given her test results and states that Cassius Ortega will be putting this all in a letter forher. * Telephone Encounter - Lita Murguia MA - 12/09/2020 10:43 AM CDT ----- Message from Cassius Ortega NP sent at 12/09/2020 10:12 AM CDT ----- Please let the pt know her titers are back, the only one she did not show immunity to was her hep B. documented in this encounter Plan of Treatment Not on file documented as of this encounter Visit Diagnoses Not on filedocumented in this encounter Care Teams Quality Control Relationship Specialty Start [place] [address] [address] [facility] [address] [address] PCP - General Family Medicine 02/21/19 documented as of this encounter
--- OUTSIDE RECORDS SUMMARY | 2024-08-09 23:32 | XMS_ITS | Encounter Summary ---
Author Organization [facility] Medical Group Address [address] [address] Care Team Providers Care Environmental Health Manager Name Role Phone Cassius Ortega NP Primary Care Provider [phone] Reason for Referral * Diagnostic Imaging (Routine) - Closed Specialty Diagnoses / Procedures Referred By Contjennifer t Referred To Contact Diagnoses Screening-pulmonary TB Procedures XR Chest 1 [place] [address] [address] [address] Phone: tel: fax: [address] [address] Referral ID Status Reason Start Date Expiration Date Visits Re quested Visits Authorized [id number] Closed 12/04/2020 01/03/2022 1 1 Reason for Visit * Reason Comments Preventative Care physical exam Encounter Details Date Type Department Care Team (Late st Contact Info) Description 12/04/2020 12:30 PM CDT Office Visit Family Care at [address] [address] [place] [address] [address] [address] Annual physical exam (Primary Dx); Need for tetanus booster; Screening-pulmonary TB; Hypothyroidism, unspecified type Social History Tobacco Use Types [...] on file 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 Gender Identity Not on file Sexual Orientation Not on file 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 documented as of this encounter Last Filed Vital Signs Vital Sign Reading Time Taken Comments Blood Pressure 104/67 12/04/2020 12:29 PM CDT Pulse 77 12/04/2020 12:29 PM CDT Temperature 36.8 ??C (98.2 ??F) 12/04/2020 1 2:29 PM CDT Respiratory Rate - - Oxygen Saturation - - Inhaled Oxygen Concentration - - Weight 103.3 kg (227 lb 12.8 oz) 2020 12:29 PM CDT Height 165.1 cm (5' 5 ) 12/04/2020 12:2 9 PM CDT Body Mass Index 37.91 12/04/2020 12:29 PM CDT documented in this encounter Progress Notes * Cassius Ortega NUMERICAL CONTROL DRILL PRESS OPERATOR - 12/04/2020 12:30 PM CDT Images from the original note were not included. Subjective/Objective Patient ID: Олег Paz is a 45 y.o. female. Chief Complaint Preventative Care (physical exam ) Pt here for physical/preventative exam. She states she has been feeling generally well. She has no chest pain or shortness of breath. Her heart rate has become normal. Her blood pressure is stable. She has been taking her blood pressure medications regularly. She is starting a new job and requiringtesting for Tb and titers for routine immunizations. Review of Systems Constitutional: Negative for fatigue [...] rhythm. Heart sounds: Normal heart sounds. No murmur. No friction rub. No gallop. Pulmonary: Effort: [...] Diagnoses and all orders for this visit: Annual physical exam (Z00.00) (Primary) - Mumps antibody, IgG; Future - Rubella IgG; Future - Rubeola antibody IgG; Future - Varicella Zoster (VZV) IgG Blood; Future - Hepatitis B core antibody, total; Future Need for tetanus booster (Z23) - Tdap vaccine greater than or equal to 7yo IM Screening-pulmonary TB (Z11.1) - XR Chest 1 Vw; Future Hypothyroidism, unspecified type (E03.9) - TSH; Future documented in this encounter Plan of Treatment Not on file documented as of this encounter Results * XR Chest 1 [...] NP IMG XR PROCEDURES Final Resul t * Hepatitis B core antibody, total (12/04/2020 1:00 PM CDT) Pathologist [facility] Hep B core IgG/IgM Nonreactive Nonreactive [facility] Comment:Testing performed by : [facility], [address] [facility], [place]., [address] Blood specimen (specimen) 12/04/2020 1:00 PM CDT 12/05/2020 8:50 AM CDT Cassius Ortega NP LAB MICROBIOLOGY - GENERAL OR DERABLES Edited Result - Final [facility] [address] [address] Department [place] [address] * Varicella Zoster (VZV) IgG Blood (12/04/2020 1:00 PM CDT) VZV IgG Reactive Nonreactive [facility] Comment: IgG antibodies to Varicella Zoster virus detected.?? This may indicate that the patient was exposed to Varicella Zoster through??infection or vaccination. Testing performed by: [facility], [address] [place] [address]., [address] Blood specimen (specimen) 12/04/2020 1:00 PM CDT 12/05/2020 8:49 AM CDT Cassius Ortega NUMERICAL CONTROL DRILL PRESS OPERATOR LAB MICROBIOLOGY - GENERAL OR DERABLES Final Result Performing Organization Address [facility] Co de Phone Number [facility] [address] [address] [facility] [place] [address] * (ABNORMAL) Rubeola antibody IgG (12/04/2020 1:00 PM CDT) Pathologist [facility] Measles IgG Positive(A ) Negative [facility] Comment:Testing performed by : [facility], [address] [place] [address]., [address] Blood specimen (specimen) 12/04/2020 1:00 PM CDT 12/05/2020 8:49 AM CDT Cassius Ortega NUMERICAL CONTROL DRILL PRESS OPERATOR LAB MICROBIOLOGY - GENERAL OR DERABLES Final Result Performing Organization Address [facility] Co de Phone Number [facility] [address] [address] [facility] [place] [address] * Rubella IgG (12/04/2020 1:00 PM CDT) Pathologist [facility] Rubella IgG Reactive [facility] Comment: Interpretive Data Nonreactive: ??No detectable antibody [...] last revised on 2020. Testing performed by: [facility], [address] [place] [address] [place]., [address] Blood specimen (specimen) 12/04/2020 1:00 PM CDT 12/05/2020 8:49 AM CDT Cassius Ortega NP LAB MICROBIOLOGY - GENERAL OR DERABLES Final Result Performing Organization Address [facility] Co de Phone Number [place] [address] [address] [place] [address] * (ABNORMAL) Mumps antibody, IgG (12/04/2020 1:00 [...] last revised on 2016. Testing performed by: [facility], [address] [place]., [address] Blood specimen (specimen) 12/04/2020 1:00 PM CDT 12/05/2020 8:49 AM CDT Cassius Ortega NP LAB MICROBIOLOGY - GENERAL OR DERABLES Final Result Performing Organization Address [facility] Co de Phone Number [facility] [address] [address] [place] [address] documented in this encounter Visit Diagnoses Diagnosis Annual physical exam- Primary Routine general medical examination at a health care facility Need for tetanus booster Screening-pulmonary TB Screening examination for pulmonary tuberculosis Hypothyroidism, unspecified type Screening-pulmonary TB Screening examination for pulmonary tuberculosis documented in this encounter Orders Immunization/Injection Count Last Ordered Date First Ordered Date TDAP VACCINE GREATER THAN OR EQUAL TO 7YO IM 1 12/04/2020 documented in this encounter Care Teams Environmental Health Manager Relationship Specialty [place] [address] [address] [facility] [address] [place] [address] PCP - General Family Medicine 02/21/19 documented as of this encounter
--- OUTSIDE RECORDS SUMMARY | 2024-08-09 23:32 | XMS_ITS | Encounter Summary ---
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 ??Testing performed by the [facility] Molecular Infectious Disease Laboratory. The 2018-Novel Coronavirus Assay (COVID-19) Real Time RT-PCR assay [...] 05, 2020. Influenza A RNA Not Detected [facility] Influenza B RNA Not Detected [facility] Comment: Interpretive Data Testing performed by the [facility] Molecular Infectious Disease Laboratory. This test is performed using the jessica Influenza A/B Assay. This is a real-time RT-PCR test for the qualitative detection of nucleic acid from Influenza A and Influenza B. This assay has been reviewed by the FDA for Emergency Use Authorization (EUA). The performance characteristics have been verified by the [facility] Laboratory. Results should be interpreted in combination with clinical context and a negative result does not rule out infection. ?? Interpretive data last revised 2020. First COVID-19 test? No [facility] Employeed in healthcare? Yes [facility] status? No [facility] Group care resident? No [facility] Hospitalized? No [facility] Is patient in ICU? No [facility] Symptomatic as defined by CDC? Yes [facility] Nasopharyngeal 10/28/2020 3: 21 PM CDT 10/28/2020 7:23 PM CDT Narrative [facility] - 10/29/2020 6:14 AM CDT Patient is employed by/enrolled at:->[employer] Date of Symptom Onset->3/26/21 us Alley Ricketts MD LAB MICROBIOLOGY - GENERAL ORDERABLES Final Result [facility] Department [place] [address] documented in this encounter Visit Diagnoses Diagnosis Diarrhea, unspecified type documented in this encounter Additional Health Concerns Infection Onset Date Last Indicated Resolved Time COVID: Suspected 10/28/2020 10/28/2020 10/29/2020 6:16 AM CDT documented as of this encounter Care Teams Hog Ringer Relationship Specialty Start [place] [address] [address] [facility] [address] [address] PCP - General Family Medicine 02/21/19 documented as of this encounter
--- OUTSIDE RECORDS SUMMARY | 2024-08-09 23:32 | XMS_ITS | Encounter Summary ---
Author Organization [facility] Medical Group Address [address] [facility] [address] [place] [address] Care Team Providers Care Legal Collector Name Role Phone Cassius Ortega NP Primary Care Provider [phone] Reason for Visit * Reason Comments Dizziness Fatigue Encounter Details Date Type Department Care Team (Late st Contact Info) Description 10/29/2020 1:00 PM CDT Telemedicine Family Care at [address] [address] Cassius Ortega NP [address] [place] [address] [address] Fatigue, unspecified type (Primary Dx); Bradycardia; BMI 37.0-37.9, adult Social History Tobacco Use [...] on file 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 Gender Identity Not on file Sexual Orientation Not on file 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 Subjective/Objective Patient ID: Deejay Paz is a 45 y.o. female. Chief Complaint Dizziness and Fatigue Pt states she had some episodes of GI distress over the weekend. The next day she felt a little dizzy and fatigued. When she got to work her blood pressure was a little elevated and her heart rate was 55 which is low for her. She states she has been feeling off for the last few days. She had covid in June and the vaccine in September then a possible exposure again in September. She does not feel likeshe has the energy she had had before this weekend. Review of Systems Constitutional: Positive for fatigue. Negative for fever. HENT: Negative for congestion, rhinorrhea and sore throat. Respiratory: Negative for cough, chest tightness and shortness of breath. Cardiovascular: Negative for chest pain and leg swelling. Gastrointestinal: Negative for abdominal pain and nausea. Endocrine: Negative for cold intolerance and heat intolerance. Neurological: Positive for dizziness, weakness and light-headedness. Negative for headaches. Psychiatric/Behavioral: Negative for sleep disturbance. Physical Exam Constitutional: Appearance: Normal appearance. HENT: Head: Normocephalic and atraumatic. Pulmonary: Effort: Pulmonary effort is normal. Neurological: Mental Status: She is alert. Assessment/Plan Diagnoses and all orders for this visit: Fatigue, unspecified type (R53.83) (Primary) Comments: check labs for thyroid, anemia, electrolyte, glucose changes - return to cardiology for evaluation of bradycardia Orders: - CBC with auto differential; Future - Comprehensive metabolic panel; Future - TSH; Future Bradycardia (R00.1) Comments: return to cardiology for evaluation of bradycardia Orders: - CBC with auto differential; Future - Comprehensive metabolic panel; Future - TSH; Future BMI 37.0-37.9, adult (Z68.37) Assessment & Plan: Continue working on weight loss documented in this encounter Miscellaneous Notes * Assessment & Plan Note - Cassius Ortega NP - 10/29/2020 3:56 PM CDT Associated Problem(s): BMI 37.0-37.9, adult Continue working on weight loss documented in this encounter Plan of Treatment Not on file documented as of this encounter Results * (ABNORMAL) TSH (10/29/2020 2:46 PM CDT) Thyroid Stimulating Hormone 10.02(H) 0.30 - 4.20 mcIUnit/mL [facility] Blood specimen (specimen) 10/29/2020 2:46 PM CDT 10/29/2020 3:13 PM CDT Cassius Ortega NP LAB BLOOD ORDERABLES Final Re sult [facility] [address] [address] Department [place] [address] * Comprehensive metabolic panel (10/29/2020 2:46 PM CDT) Sodium 136 135 - 145 mmol/L [facility] Potassium, pl 4.3 3.3 - 4.9 mmol/L [facility] Chloride 104 97 - 110 mmol/L [facility] CH CO2 24 22 - 32 mmol/L [facility] Anion gap 8 2 - 15 mmol/L [facility] BUN 15 8 - 25 mg/dL [facility] Creatinine 0.71 0.60 - 1.10 mg/dL [facility] Glucose 89 70 - 199 mg/dL [facility] Comment: Interpretive Data Fasting glucose >/= 126 [...] CDT 10/29/2020 3:13 PM CDT Cassius Ortega RN HOUSE SUPERVISOR LAB BLOOD ORDERABLES Final Re sult [facility] [address] [place] [address] * CBC with auto differential (10/29/2020 2:46 PM CDT) WBC 9.6 3.8 - 9.9 K/cumm [facility] Hgb 12.5 11.9 - 15.5 g/dL [facility] CH Hct 38.4 35.6 - 45.5 % [facility] CH Plt 293 150 - 400 K/cumm [facility] CH MPV 9.2 9.1 - 12.3 fL [facility] CH RBC 4.15 3.90 - 5.20 M/cumm [facility] CH MCV 92.5 81.3 - 96.4 fL [facility] MCH 30.1 27.1 - 33.3 pg [facility] MCHC 32.6 32.3 - 35.7 g/dL [facility] RDW CV 13.1 11.1 - 14.9 % [facility] RDW SD 44.8 35.7 - 48.1 fL [facility] NRBC abs 0.00 0.00 - 0.01 K/cumm [facility] Blood specimen (specimen) 10/29/2020 2:46 PM CDT 10/29/2020 3:13 PM CDT Cassius Ortega NP LAB BLOOD ORDERABLES Final Re sult [facility] [address] [address] Department [place] [address] documented in this encounter Visit Diagnoses Diagnosis Fatigue, unspecified type- Primary Bradycardia Other specified cardiac dysrhythmias BMI 37.0-37.9, adult documented in this encounter Care Teams Legal Collector Relationship Specialty Start Date End Date Cassius Ortega, RN HOUSE SUPERVISOR [address] [address] [place] [address] PCP - General Family Medicine 02/21/19 documented as of this encounter
--- OUTSIDE RECORDS SUMMARY | 2024-08-09 23:32 | XMS_ITS | Encounter Summary ---
Author Organization [facility] Medical Group Address [address] [facility] [address] [place] [address] Care Team Providers Care Plasterer Spot Name Role Phone Cassius Ortega NP Primary Care Provider [phone] Reason for Visit * Reason Onset Date Comments Dizziness 10/28/2020 Encounter Details Date Type Department Care Team (Late st Contact Info) Description 10/28/2020 Nurse Triage Family Care at [facility] [address] [place] [address] Cassius Ortega NP [address] [place] [address] [address] Social History Tobacco Use Types [...] on file 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 Spinning or tilting sensation (vertigo) present now Protocols used: [id number]-SP 45 y/o pt c/o severe dizziness when she got to work. Room spinning, off balance, swaying, and lightheaded. Had to lay down, fell asleep. BP 101/62 HR 55, now 127/68 HR 66. Had coffee on way to work and water. Denies H/A, sinus symptoms, ear symptoms, N/V. Has had some loose stools x 5 days, but feels she drinks enough water. Takes Losartan. Denies any Hx of vertigo. Works at [employer], but declines wanting to go to ED. Advised NAWAF Ortega out of office, UC for evaluation today. Pt having someone pick her up from work, and plans UC. Will call back with f/u needs. Advised less caffeine, more water, and add gatorade if having loose stools. Verbalized understanding. * Telephone Encounter - Leilani Streeter RN - 10/28/2020 9:06 AM CDT Regarding: Really dizzy (red flag), not feeling well ----- Message from Seema Cooper sent at 10/28/2020 8:56 AM CDT ----- Symptom Based Call COVID-19 Screening: Symptoms: No (10/28/2020 8:54 AM) Exposure: No (10/28/2020 8:54 AM) Positive COVID-19 test within the last 14 days: No (10/28/2020 8:54 AM) Chief Complaint: Really dizzy (red flag), not feeling well Duration: This morning Why was appointment not scheduled?attempted no soon Caller's Callback #: [phone] Additional Comments: N/a Did you relay expectation for call back (sugar refiner: Red Flag 10-15 min; non- emergent up to 3 hours)(Practice: Red Flag warm transfer; non-emergent up to 24 hours)? Yes documented in this encounter Plan of Treatment Not on file documented as of this encounter Visit Diagnoses Not on filedocumented in this encounter Care Teams Plasterer Spot Relationship Specialty [place] [address] [address] [facility] [address] [place] [address] PCP - General Family Medicine 02/21/19 documented as of this encounter
--- OUTSIDE RECORDS SUMMARY | 2024-08-09 23:32 | XMS_ITS | Encounter Summary ---
Author Organization [facility] Medical Group Address [address] [facility] [address] [place] [address] Care Team Providers Care Transportation Agent Name Role Phone Cassius Ortega NP Primary Care Provider [phone] Reason for Visit * Reason Comments Hypertension Follow-up Encounter Details Date Type Department Care Team (Late st Contact Info) Description 05/02/2021 11:15 AM CDT Office Visit [place] Slubber Operator [address] [place] [phone] Charly Olson MD [address] [place] [address] [address] Primary hypertension (Primary Dx); Hyperlipidemia, unspecified hyperlipidemia type; Hypothyroidism, unspecified type Social History Tobacco Use [...] on file 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 Gender Identity Not on file Sexual Orientation Not on file 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 documented as of this encounter Last Filed Vital Signs Vital Sign Reading Time Taken Comments Blood Pressure 112/68 05/02/2021 11:07 AM CDT Large Adult Cuff Pulse 76 05/02/2021 11:07 AM CDT Temperature - - Respiratory Rate 16 05/02/2021 11:0 7 AM CDT Oxygen Saturation 98% 05/02/2021 11: 07 AM CDT Inhaled Oxygen Concentration - - Weight 101.2 kg (223 lb 3.2 oz) 05/02/2021 11:07 AM CDT Height 165.1 cm (5' 5 ) 05/02/2021 11:0 7 AM CDT Body Mass Index 37.14 05/02/2021 11:07 AM CDT documented in this encounter Progress Notes * Charly Olson MD - 05/02/2021 11:15 AM CDT Cardiology note Reason for Office Visit: Chief Complaint Patient presents with ??? Hypertension ??? Follow-up History of Present Illness: Deejay Paz is a 46 y.o. female seen in follow up for HTN. Stress Echo on 05/09/20 was normal.?? She did sleep study last night. Has had palpitations with cough,. Otherwise no symptoms. Past Medical History: Diagnosis Date ??? Delayed [...] Use ??? Vaping Use: Never used Substance Use Topics ??? Alcohol use: Yes [...] mouth every morning 90 tablet 3 ??? levothyroxine (SYNTHROID) 175 mcg tablet Take 1 tablet (175 mcg total) by mouth daily 30 [id number] ??? losartan (COZAAR) 100 mg tablet Take 1 tablet (100 mg total) by mouth daily 30 tablet 11 No current facility-administered medications for this visit. Vital Signs: Vitals BP 112/68 (BP Location: Left arm, Patient Position: Sitting) Pulse 76 Resp 16 Ht 165.1 cm (5' 5 ) Wt 101.2 kg (223 lb 3.2 oz) LMP 10/23/2019 SpO2 98% BMI 37.14 kg/m?? Vitals: 05/02/21 1107 BP: 112/68 Comment: Large Adult Cuff Pulse: 76 Resp: 16 SpO2: 98% Wt Readings from Last 3 Encounters: 05/02/21 101.2 kg (223 lb 3.2 oz) 04/14/21 102.2 kg (225 lb 3.2 oz) 12/04/20 103.3 kg (227 lb 12.8 oz) Physical Exam: Physical Exam Constitutional: She appears??well-developed??and well-nourished. HENT: Head:??Normocephalic??and atraumatic. Eyes:??No scleral icterus. Cardiovascular:??Normal rate??and regular rhythm.?? No murmur??heard. Pulmonary/Chest:??Effort normal??and breath sounds normal.? Labs: No lab exists for component: KPLASMA No lab exists for component: LABALBU Lab Results Component Value Date CHOL 266 [...] visit: Primary hypertension (Primary) Assessment & Plan: Controlled Hyperlipidemia, unspecified hyperlipidemia type Hypothyroidism, unspecified type Thank you for the consult. We will be happy to follow in this patient's care. MARTELL Campbell@12:53 PM Cc:Cassius Ortega NP documented in this encounter Miscellaneous Notes * Assessment & Plan Note - Charly Olson MD - 05/02/2021 12:48 PM CDT Associated Problem(s): Primary hypertension Controlled documented in this encounter Plan of Treatment Not on file documented as of this encounter Visit Diagnoses Diagnosis Primary hypertension- Primary Unspecified essential hypertension Hyperlipidemia, unspecified hyperlipidemia type Hypothyroidism, unspecified type documented in this encounter Care Teams Transportation Agent Relationship Specialty [place] [address] [address] [address] PCP - General Family Medicine 02/21/19 documented as of this encounter
--- OUTSIDE RECORDS SUMMARY | 2024-08-09 23:32 | XMS_ITS | Encounter Summary ---
Author Organization [facility] Address [address] 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 Order has been faxed * Assessment & Plan Note - Marisol West NP - 05/07/2021 2:35 PM CDT Associated Problem(s): Moderate obstructive sleep apnea Her sleep study from 05/01/2021 showed moderate sleep apnea. I recommend that she be on CPAP for treatment of her sleep apnea. I have initiated in order for CPAP at [facility] but I would like her to be evaluated by a sleep specialist for further adjustments of her CPAP. I have ordered a refer to Sleep Medicine for further evaluation and treatment. * Telephone Encounter - Marisol West NP - 05/07/2021 2:35 PM CDT Please call patient with results: Her sleep study from 05/01/2021 showed moderate sleep apnea. I recommend that she be on CPAP for treatment of her sleep apnea. I have initiated in order for CPAP at [facility] but I would like her to be evaluated by a sleep specialist for further adjustments of her CPAP. I have ordered a refer to Sleep Medicine for further evaluation and treatment. documented in this encounter Plan of Treatment Not on file documented as of this encounter Visit Diagnoses Diagnosis SHREYA (obstructive sleep apnea)- Primary Obstructive sleep apnea (adult) (pediatric) documented in this encounter Care Teams Supervisor Intermediates Relationship Specialty [place] [address] [address] [place] [address] PCP - General Family Medicine 02/21/19 documented as of this encounter
--- OUTSIDE RECORDS SUMMARY | 2024-08-09 23:33 | XMS_ITS | Encounter Summary ---
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
--- OUTSIDE RECORDS SUMMARY | 2024-08-09 23:33 | XMS_ITS | Encounter Summary ---
Author Organization [facility] Healthcare Address [address] [place] [address] Care Team Providers Care Bank Cashier Name Role Phone Cassius Ortega NP Primary Care Provider [phone] Reason for Referral * Diagnostic Imaging (Routine) - Closed Specialty Diagnoses / Procedures Referred By Cara alvarez Referred To Contact Radiology Diagnoses Achilles tendinitis, left leg Procedures MRI Ankle Left WO Contrast Anjali Varela DPM Phone: tel: fax: [place] [address] [place] [address] Referral ID Status Reason Start Date Expiration Date Visits Re quested Visits Authorized [id number] Closed 05/01/2020 10/28/2020 1 1 Reason for Visit * Diagnostic Imaging (Routine) - Closed Specialty Diagnoses / Procedures Referred By Cara alvarez Referred To Contact Radiology Diagnoses Achilles tendinitis, left leg Procedures MRI Ankle Left WO Contrast Anjali Varela DPM Phone: tel: fax: [place] [address] [place] [address] Referral ID Status Reason Start Date Expiration Date Visits Re quested Visits Authorized [id number] Closed 05/01/2020 10/28/2020 1 1 Encounter Details Date Type Department Care Team (Latest Contact Info) Description 05/23/2020 5:05 PM CDT - 05/23/2020 11:59 PM CDT Hospital Encounter [facility] [address] [place] [id number] Anjali Varela, DPOlivia [address] [address] Achilles tendinitis, left leg Discharge Disposition: Discharge to home or self [...] on file 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 Gender Identity Not on file Sexual Orientation [...] needed for pain (pain) 90 tablet 12/29/2019 1 citalopram (CeleXA) 40 mg tablet Take 1 tablet (40 mg total) by mouth daily 90 tablet 3 05/17/2019 0 levothyroxine (SYNTHROID) 150 mcg tablet Take 1 tablet (150 mcg total) by mouth potato chip packaging machine operator before breakfast 90 tablet 3 05/17/2019 0 losartan (COZAAR) 50 mg tablet Take 1 tablet (50 mg total) by mouth daily 90 tablet 3 04/22/2020 0 documented as of this encounter Discharge Disposition Disposition Code Departure Means Destination Discharge to home or self care documented in this encounter Plan of Treatment Not on file documented as of this encounter Procedures Procedure Name Priority Date/Time Associated Diagnosis Comments MRI ANKLE LEFT WO CONTRAST Schedule Routine, Read Routine (OP Routine) 05/23/2020 5:59 PM CDT Achilles tendinitis, left leg documented in this encounter Results * MRI Ankle Left WO Contrast (05/23/2020 5:59 PM CDT) Anatomical Region Laterality Modality Lower Extremities Left Magnetic Reson ance 05/23/2020 6:04 PM CDT Impressions 05/23/2020 6:12 PM CDT 1. Mild to moderate Achilles tendinopathy. 2. ??Mild peroneus longus and brevis tendinopathy. 3. ??Mild degenerative changes. Electronically signed by: Omero Corbin M.D. Narrative 05/23/2020 6:12 PM CDT EXAM: ??MRI OF THE LEFT ANKLE HISTORY: ??Left Achilles tendinitis. ??Left ankle pain. COMPARISON: ??None available. TECHNIQUE: Standard MR imaging of the ankle was performed. FINDINGS: Joint spaces, cartilage and marrow: There is mild tibiotalar, subtalar and midfoot degenerative change. ??There is no evidence of fracture or malalignment. ??No osteocartilaginous defects are identified. Anterior tendon group: The extensor hallucis longus, extensor digitorum longus and anterior tibialis tendons are intact and within normal limits for age. Medial tendon group: The posterior tibial, flexor digitorum longus and flexor hallucis longus tendons are intact. The tendons are normal for age. Lateral tendon group: There is mild peroneus longus and brevis tendinopathy. Achilles tendon: There is mild to moderate Achilles tendinopathy. Plantar fascia: The plantar fascia is intact. Anterior and posterior tibiofibular ligament: The ligaments are intact. There is no evidence of strain or tear. Anterior and posterior talofibular ligament: The ligaments are intact. There is no evidence of strain or tear. Deltoid ligament: The ligament is intact. There is no evidence of strain or tear. Calcaneofibular ligament: The ligament is intact. There is no evidence of strain or tear. Joint fluid: There is a physiologic amount of joint fluid. Soft tissues: The overlying soft tissues are normal. No abnormal mass or fluid collection is identified. Procedure Note Omero Corbin MD - 05/23/2020 EXAM: MRI OF THE LEFT ANKLE HISTORY: Left Achilles tendinitis. Left ankle pain. COMPARISON: None available. TECHNIQUE: Standard MR imaging of the ankle was performed. FINDINGS: Joint spaces, cartilage and marrow: There is mild tibiotalar, subtalar and midfoot degenerative change. There is no evidence of fracture or malalignment. No osteocartilaginous defects are identified. Anterior tendon group: The extensor hallucis longus, extensor digitorum longus and anterior tibialis tendons are intact and within normal limits for age. Medial tendon group: The posterior tibial, flexor digitorum longus and flexor hallucis longus tendons are intact. The tendons are normal for age. Lateral tendon group: There is mild peroneus longus and brevis tendinopathy. Achilles tendon: There is mild to moderate Achilles tendinopathy. Plantar fascia: The plantar fascia is intact. Anterior and posterior tibiofibular ligament: The ligaments are intact. There is no evidence of strain or tear. Anterior and posterior talofibular ligament: The ligaments are intact. There is no evidence of strain or tear. Deltoid ligament: The ligament is intact. There is no evidence of strain or tear. Calcaneofibular ligament: The ligament is intact. There is no evidence of strain or tear. Joint fluid: There is a physiologic amount of joint fluid. Soft tissues: The overlying soft tissues are normal. No abnormal mass or fluid collection is identified. IMPRESSION: 1. Mild to moderate Achilles tendinopathy. 2. Mild peroneus longus and brevis tendinopathy. 3. Mild degenerative changes. Electronically signed by: Omero Corbin M.D. Anjali Varela DPOlivia IMG MRI PROCEDURES Final Res ult documented in this encounter Visit Diagnoses Diagnosis Achilles tendinitis, left leg documented in this encounter Care Teams Bank Cashier Relationship Specialty [place] [address] [address] [address] PCP - General Family Medicine 02/21/19 documented as of this encounter
--- OUTSIDE RECORDS SUMMARY | 2024-08-09 23:33 | XMS_ITS | Encounter Summary ---
Author Organization [facility] Medical Group Address [address] [facility] [address] [place] [address] Care Team Providers Care Veterans Rehabilitation Counselor Name Role Phone Cassius Ortega NP Primary Care Provider [phone] Encounter Details Date Type Department Care Team (Late st Contact Info) Description 07/17/2020 Telephone [place] Printer Slotter Helper [address] [facility] [address] [place] [address] Charly Olson MD [address] [place] [address] [address] Social History Tobacco Use Types Packs/Day Years Used Date Smoking Tobacco: Never Smokeless Tobacco: Never Alcohol Use Standard Drinks/Week Comments Yes 0 (1 standard drink = 0.6 oz pur e alcohol) socially PHQ-2 Answer Date Recorded PHQ-2 Score 2 05/15/2019 Comments No Sex and Gender Information Value Date Recorded Sex Assigned at Not on file Legal Sex Female 1:09 AM SURVEILLANCE OFFICER Gender Identity Not on file Sexual Orientation Not on file 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 documented as of this encounter Ordered Prescriptions Prescription Sig Dispense Quantity Refills Last Filled Start Date End Date atorvastatin (LIPITOR) 10 mg tablet Take 1 tablet (10 mg total) by mouth daily 90 tablet 3 07/23/2020 02/20/2021 documented in this encounter Miscellaneous Notes * Addendum Note - Pavan Jackson MA - 07/23/2020 11:48 AM CSTAddended by: PAVAN JACKSON on: 07/23/2020 11:48 AM Modules accepted: Orders EILLANCE OFFICER * Telephone Encounter - Pavan Jackson MA - 07/23/2020 11:45 AM CST Pt aware otp and would like rx to go to [facility] EILLANCE OFFICER * Telephone Encounter - Pavan Jackson MA - 07/23/2020 9:30 AM CST lmom lt EILLANCE OFFICER * Telephone Encounter - Charly Olson MD - 07/23/2020 8:57 AM CST Total Chol 266, LDL-C 148 Start atorvastatin 10 mg daily Recheck lipids in 4 weeks. EILLANCE OFFICER * Telephone Encounter - Pavan Jackson MA - 07/17/2020 8:52 AM CST There is a new lab in the chart for you to view. Results? EILLANCE OFFICER documented in this encounter Plan of Treatment Not on file documented as of this encounter Visit Diagnoses Not on filedocumented in this encounter Care Teams Veterans Rehabilitation Counselor Relationship Specialty [place] [address] [address] [facility] [address] [address] PCP - General Family Medicine 02/21/19 documented as of this encounter
--- OUTSIDE RECORDS SUMMARY | 2024-08-09 23:33 | XMS_ITS | Encounter Summary ---
Author Organization [facility] Medical Group Address [address] [facility] [address] [place] [address] Care Team Providers Care Gridcap Machine Operator Name Role Phone Cassius Ortega NP Primary Care Provider [phone] Reason for Visit * Reason Onset Date Comments Appointment 07/03/2020 Encounter Details Date Type Department Care Team (Late st Contact Info) Description 07/03/2020 Telephone Family Care at [address] [address] Lita Murguia CMA Appointment Social History Tobacco Use Types Packs/Day Years Used Date Smoking Tobacco: Never Smokeless Tobacco: Never Alcohol Use Standard Drinks/Week Comments Yes 0 (1 standard drink = 0.6 oz pur e alcohol) socially PHQ-2 Answer Date Recorded PHQ-2 Score 2 05/15/2019 Comments No Sex and Gender Information Value Date Recorded Sex Assigned at Not on file Legal Sex Female 1:09 AM TRIAGE CLINICIAN Gender Identity Not on file Sexual Orientation Not on file 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 GE CLINICIAN * Telephone Encounter - Lita Murguia MA - 07/03/2020 3:10 PM CST Received a fax from Dr Mcmullen office asking for medical clearnce to be faxed for pt's surgery. Per cassius Ortega, patient needs an appointment for clearance before this can be done. Left message to call office regarding appt. GE CLINICIAN documented in this encounter Plan of Treatment Not on file documented as of this encounter Visit Diagnoses Not on filedocumented in this encounter Care Teams Gridcap Machine Operator Relationship Specialty [place] [address] [address] PCP - General Family Medicine 02/21/19 documented as of this encounter
--- OUTSIDE RECORDS SUMMARY | 2024-08-09 23:33 | XMS_ITS | Encounter Summary ---
Author Organization [facility] Medical Group Address [address] [facility] [address] [place] [address] Care Team Providers Care Psychologist Military Personnel Name Role Phone Cassius Ortega NP Primary Care Provider [phone] Reason for Visit * Reason Comments Hyperlipidemia Hypertension Follow-up Encounter Details Date Type Department Care Team (Late st Contact Info) Description 07/16/2020 2:30 PM COASTAL/HARBOR DEFENSE OFFICER Office Visit [place] Tongue Stitcher [address] [place] [address] Charly Olson MD [address] [place] [address] [address] Essential hypertension (Primary Dx); Hyperlipidemia, unspecified hyperlipidemia type Social History Tobacco Use Types Packs/Day Years Used Date Smoking Tobacco: Never Smokeless Tobacco: Never Alcohol Use Standard Drinks/Week Comments Yes 0 (1 standard drink = 0.6 oz pur e alcohol) socially PHQ-2 Answer Date Recorded PHQ-2 Score 2 05/15/2019 Comments No Sex and Gender Information Value Date Recorded Sex Assigned at Not on file Legal Sex Female 1:09 AM COASTAL/HARBOR DEFENSE OFFICER Gender Identity Not on file Sexual Orientation Not on file 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 documented as of this encounter Last Filed Vital Signs Vital Sign Reading Time Taken Comments Blood Pressure 126/78 07/16/2020 2:27 PM COASTAL/HARBOR DEFENSE OFFICER Pulse 80 07/16/2020 2:27 PM COASTAL/HARBOR DEFENSE OFFICER Temperature 36.9 ??C (98.4 ??F) 07/16/2020 2:27 PM CS T Respiratory Rate 18 07/16/2020 2:27 PM COASTAL/HARBOR DEFENSE OFFICER Oxygen Saturation 96% 07/16/2020 2:27 PM COASTAL/HARBOR DEFENSE OFFICER Inhaled Oxygen Concentration - - Weight - - Height 165.1 cm (5' 5 ) 07/16/2020 2:27 PM COASTAL/HARBOR DEFENSE OFFICER Body Mass Index - - documented in this encounter Progress Notes * Charly Olson MD - 07/16/2020 2:30 PM CST Cardiology note Reason for Office Visit: Chief Complaint Patient presents with ??? Hyperlipidemia ??? Hypertension ??? Follow-up History of Present Illness: Олег Paz is a 45 y.o. female seen in follow up for HTN. Stress Echo on 05/09/20 was normal. Since last visit she has had hysterectomy and now has acute achilles tendonitis-- wearing a boot. No chest pain or shortness of breath. She asks about lipid therapy Past Medical History: Diagnosis Date ??? Delayed [...] Outpatient Medications Medication Sig Dispense Refill ??? citalopram (CeleXA) 40 mg tablet Take 1 tablet (40 mg total) by mouth every morning 90 tablet 3 ??? ibuprofen (ADVIL,MOTRIN) 600 mg tablet Take 1 tablet (600 mg total) by mouth 4 (four) times a day as needed for pain (pain) 90 tablet 0 ??? levothyroxine (SYNTHROID) 150 mcg tablet Take 1 tablet (150 mcg total) by mouth network operations technician before breakfast 90 tablet 3 ??? losartan (COZAAR) 50 mg tablet Take 1 tablet (50 mg total) by mouth daily 30 tablet 0 No current facility-administered medications for this visit. Vital Signs: Vitals BP 126/78 Pulse 80 Temp 36.9 ??C (98.4 ??F) Resp 18 Ht 165.1 cm (5' 5 ) LMP 10/23/2019 SpO2 96% BMI 37.87 kg/m?? Vitals: 07/16/20 1427 BP: 126/78 Pulse: 80 Resp: 18 Temp: 36.9 ??C (98.4 ??F) SpO2: 96% Wt Readings from Last 3 Encounters: 07/01/20 103.2 kg (227 lb 9.6 oz) 01/24/20 98 kg (216 lb) 01/08/20 97.6 kg (215 lb 3.2 oz) Physical Exam: Physical Exam Constitutional: She appears well-developed and well-nourished. HENT: Head: Normocephalic and atraumatic. Eyes: No scleral icterus. Cardiovascular: Normal rate and regular rhythm. No murmur heard. Pulmonary/Chest: Effort normal and breath sounds normal. Labs: No lab exists for component: KPLASMA No lab exists for component: LABALBU Lab Results Component Value Date CHOL 229 (H) 05/15/2019 TRIG 160 (H) 05/15/2019 HDL 45 05/15/2019 LDL 163 (H) 04/06/2014 Lab Results Component Value Date TSH 0.87 05/15/2019 T3FREE 3.00 04/05/2013 FREET4 1.01 04/05/2013 Testing: No results found. No results found for this or any previous visit.] Impression and Plan: Diagnoses and all orders for this visit: Essential hypertension (Primary) Hyperlipidemia, unspecified hyperlipidemia type Get updated lipid panel. Probably start atorvastatin. Continue losartan for HTN. RTC 1year Thank you for the consult. We will be happy to follow in this patient's care. MARTELL Campbell@4:00 PM Cc:Cassius Ortega NP TAL/HARBOR DEFENSE OFFICER documented in this encounter Plan of Treatment Not on file documented as of this encounter Visit Diagnoses Diagnosis Essential hypertension- Primary Unspecified essential hypertension Hyperlipidemia, unspecified hyperlipidemia type documented in this encounter Care Teams Psychologist Military Personnel Relationship Specialty Start [place] [address] [address] [facility] [address] [address] PCP - General Family Medicine 02/21/19 documented as of this encounter
--- OUTSIDE RECORDS SUMMARY | 2024-08-09 23:33 | XMS_ITS | Encounter Summary ---
Author Organization [facility] Address [address] [facility] [address] [place] [address] Phone Care Team Providers Care Shadowgraph Operator Name Role Phone Cassius Ortega NP Primary Care Provider [phone] Reason for Visit * Reason Comments Post-op Visit Encounter Details Date Type Department Care Team (Late st Contact Info) Description 01/08/2020 2:30 PM CDT Office Visit [facility] Obstetrics and Gynecology [facility] Outpatient Health 7th Floor [address] [place] [address] Kelly Irizarry MD [address] [place] [address] MSC [phone] [place] [address] Hematuria, unspecified type (Primary Dx); Postop check Social History Tobacco Use Types Packs/Day Years Used Date Smoking Tobacco: Never Smokeless Tobacco: Never Alcohol Use Standard Drinks/Week Comments Yes 0 (1 standard drink = 0.6 oz pur e alcohol) socially PHQ-2 Answer Date Recorded PHQ-2 Score 2 05/15/2019 Comments No Sex and Gender Information Value Date Recorded Sex Assigned at Not on file Legal Sex Female 1:09 AM FLAT LOCK OPERATOR Gender Identity Not on file Sexual Orientation Not on file 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 documented as of this encounter Last Filed Vital Signs Vital Sign Reading Time Taken Comments Blood Pressure 136/82 01/08/2020 2:26 PM CDT Pulse - - Temperature - - Respiratory Rate - - Oxygen Saturation - - Inhaled Oxygen Concentration - - Weight 97.6 kg (215 lb 3.2 oz) 01/08/2020 2:26 P M CDT Height 165.1 cm (5' 5 ) 01/08/2020 2:26 PM CDT Body Mass Index 35.81 01/08/2020 2:26 PM CDT documented in this encounter Progress Notes * Kelly Irizarry MD - 01/08/2020 2:30 PM CDT RATE QUOTING OPERATOR visit note Chief Complaint: Chief Complaint Post-op Visit Subjective: Олег Paz is a 44 y.o. year old female who presents for evaluation of possible blood in herurine. Post op from Vaginal hysterectomy by 1.5 weeks. She states that she had bleeding starting 2 days ago when she had been very active. It was on a pad and she thought it was in the urine. Afterward, she has had a small amount of bleeding when she wipes. It has lightened up today, but she is still seeing it. Additionally, she has had a little nausea and cramping, kind of like when her menses were coming in the past with dysmenorrhea. She noticed blood on her pad, but felt like it was more inthe front, so likely from the bladder. Menstrual History: No LMP recorded. Sexual History: OB History 3 Para 2 Term 2 AB 1 Living 2 SAB 1 TAB Ectopic Multiple Live Births 2 # Outcome Date GA Labor/2nd Weight Sex Delivery Anes PTL Lv A1 A5 1 SAB 2005 2 Term 2007 CS-LTranv Living 3 Term 2009 CS-LTranv Living Patient Active Problem List Diagnosis ??? Adiposity ??? depression ??? Vitamin D deficiency ??? Impaired fasting glucose ??? Hyperlipidemia ??? Hypothyroidism ??? Right upper quadrant abdominal pain ??? Well female exam with routine gynecological exam ??? Screening for malignant neoplasm of cervix ??? Anxiety ??? Screening mammogram, encounter for ??? BMI 35.0-35.9,adult ??? Bloating ??? Benign neoplasm of skin of face ??? Carpal tunnel syndrome ??? Encounter for cosmetic surgery ??? Spinal stenosis of lumbar region ??? Mammogram abnormal ??? Arthralgia of shoulder ??? Incomplete tear of right rotator cuff ??? Arthritis of right acromioclavicular joint ??? Impingement syndrome of right shoulder ??? Biceps tendinitis of right upper extremity ??? Hypertension ??? Abnormal uterine bleeding ??? Urinary frequency Past Medical History: Diagnosis Date ??? Delayed emergence from general anesthesia slow to wake up ??? Hypertension ??? PONV (postoperative nausea and vomiting) ??? 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 Thyroid disease Past Surgical History: Procedure Laterality Date ??? BREAST BIOPSY NEG LEFT ??? SECTION 2006/2008 ??? DILATION AND CURETTAGE OF UTERUS 2005 D&C ??? LUMBAR SPINE SURGERY 2013 herniated disc l4-5: lumbar spine surgery Dr. Burkett ??? TUBAL LIGATION 2009 Bilateral tubal ligation Social History Socioeconomic History ??? Marital status: Spouse name: None ??? Number of children: 2 ??? Years of education: None ??? Highest education level: None Occupational History ??? 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 Financial resource strain: None ??? Food insecurity Worry: None Inability: None ??? Transportation needs Medical: None Non-medical: None Tobacco Use ??? Smoking status: Never Smoker ??? Smokeless tobacco: Never Used Substance and Sexual Activity ??? Alcohol use: Yes Comment: socially ??? Drug use: No ??? Sexual activity: Defer Partners: Male control/protection: Tubal Ligation Lifestyle ??? Physical activity Days per week: None Minutes per session: None ??? Stress: None Relationships ??? Social connections Talks on phone: None Gets together: None Attends mandaeism service: None Active member of club or organization: None Attends meetings of clubs or organizations: None Relationship status: None ??? Intimate partner violence Fear of current or ex partner: None Emotionally abused: None Physically abused: None Forced sexual activity: None Other Topics Concern ??? None Social History Narrative ??? None Allergies: Allergies Allergen Reactions ??? Cefazolin Blisters and Redness Medications: Current Outpatient Medications: ??? acetaminophen 500 mg capsule, Take 2 capsules (1,000 mg total) by mouth every 6 (six) hours, Disp: 30 tablet, Rfl: 0 ??? citalopram (CeleXA) 40 mg tablet, Take 1 tablet (40 mg total) by mouth daily (Patient taking differently: Take 40 mg by mouth every morning ), Disp: 90 tablet, Rfl: 3 ??? ibuprofen (ADVIL,MOTRIN) 600 mg tablet, Take 1 tablet (600 mg total) by mouth 4 (four) times a day as needed for pain (pain), Disp: 90 tablet, Rfl: 0 ??? levothyroxine (SYNTHROID) 150 mcg tablet, Take 1 tablet (150 mcg total) by mouth operations support specialist before breakfast (Patient taking differently: Take 150 mcg by mouth operations support specialist before breakfast ), Disp: 90 tablet, Rfl: 3 ??? losartan (COZAAR) 50 mg tablet, Take 50 mg by mouth every morning , Disp: , Rfl: 3 ??? polyethylene glycol (MIRALAX) 17 gram packet, Take 1 packet (17 g total) by mouth 2 (two) timesa day, Disp: 15 packet, Rfl: 0 ??? ferrous sulfate (iron) 325 mg (65 mg of elemental iron) tablet, Take 65 mg of elemental iron bymouth every other day , Disp: , Rfl: Family History Problem Relation Age of Onset [...] Hyperlipidemia; ??? Skin cancer Sister Cancer, skin; Review of Systems: Review of Systems Objective: BP 136/82 Ht 165.1 cm (5' 5 ) Wt 215 lb 3.2 oz (97.6 kg) BMI 35.81 kg/m?? Physical Exam Genitourinary: Labia: Right: No rash or tenderness. Left: No rash or tenderness. Comments: Vaginal cuff with a small amount of pink discharge. No active bleeding, no abnormal discharge. Vaginal cuff appears intact and no sutures are visible. Straight cath of bladder performed after cleaning urethra with hibiclens. Clear yellow urine drained. UA from cath without blood on urine dip. Neurological: Mental Status: She is alert. Assessment and Plan: Олег Paz is a 44 y.o. female Олег was seen today for post-op visit. Diagnoses and all orders for this visit: Hematuria, unspecified type - POCT urinalysis dipstick - Cancel: Urine culture Urine, in and out catheter; Future - Urine culture Urine, in and out catheter; Future Bleeding consistent with vaginal cuff bleeding and is minimal now. Cath specimen without blood. Will send culture. Reassuring. Kelly Irizarry MD 01/08/2020 documented in this encounter Plan of Treatment Not on file documented as of this encounter Procedures Procedure Name Priority Date/Time Associated Diagnosis Comments POCT URINALYSIS DIPSTICK Routine 01/08/2020 2:45 PM CDT Hematuria, unspecified type documented in this encounter Results * Urine culture Urine, in and out catheter (01/08/2020 3:01 PM CDT) Report Final Report: No growth [facility] Urine, in and out catheter 01/08/2020 3:01 PM CDT 01/08/2020 6:06 PM CDT Narrative [facility] - 01/09/2020 7:25 PM CDT Testing performed by [facility] ([phone]) us Kelly Irizarry MD LAB MICROBIOLO GY - GENERAL ORDERABLES Final Result [facility] Department [place] [address] * (ABNORMAL) POCT urinalysis dipstick (01/08/2020 2:45 PM CDT) Color, Urine, POC Yellow Clarity, ur, POC Cloudy(A) Clear Glucose, ur, POC Negative Negative mg/dL Bilirubin, ur, POC Negative Negative, Small, Moderate, Large Ketones, ur, POC Negative Negative Specific [place], POC 1.010 1.005 - 1.030 Blood, ur, POC Small(A) Negative pH, ur, POC 6.0 5.0 - 8.0 Protein, ur, POC Negative Negative Urobilinogen, urine, POC 0.2 0.2 - 1.0 mg/dL Nitrite, ur, POC Negative Negative Leukocytes, ur, POC Negative Negative Lot Number [id number] Urine 01/08/2020 2:45 PM CDT Kelly Irizarry MD POINT OF CARE TEST ORDERABLES Final Result documented in this encounter Visit Diagnoses Diagnosis Hematuria, unspecified type- Primary Postop check Follow-up examination, following unspecified surgery Hematuria, unspecified type documented in this encounter Discontinued Medications Medication Sig Discontinue Reason Start Date End Da te docusate sodium (COLACE) 250 mg capsule Take 1 capsule (250 mg total) by mouth daily for 10 days Therapy completed 12/29/2019 01/08/2020 oxyCODONE (ROXICODONE) 5 mg immediate release tabletIndications:Pain Take 1 tablet (5 mg total) by mouth every 4 (four) hours as needed for pain Therapy completed 12/29/2019 01/08/2020 documented as of this encounter Care Teams Shadowgraph Operator Relationship Specialty [place] [address] [address] [address] PCP - General Family Medicine 02/21/19 documented as of this encounter
--- OUTSIDE RECORDS SUMMARY | 2024-08-09 23:33 | XMS_ITS | Encounter Summary ---
Author Organization [facility] Address [address] [place] [address] Care Team Providers Care Lock And Dam Repairer Name Role Phone Cassius Ortega NP Primary Care Provider [phone] Reason for Visit * Reason Onset Date Comments COVID-19 EVALUATION 05/03/2020 Encounter Details Date Type Department Care Team (Late st Contact Info) Description 05/03/2020 Telephone [facility] [address] [place] [address] Room 3420 (Third Floor) [place] [address] Aye Ballard RN COVID-19 EVALUATION Social History Tobacco Use Types Packs/Day Years Used Date Smoking Tobacco: Never Smokeless Tobacco: Never Alcohol Use Standard Drinks/Week Comments Yes 0 (1 standard drink = 0.6 oz pur e alcohol) socially PHQ-2 Answer Date Recorded PHQ-2 Score 2 05/15/2019 Comments No Sex and Gender Information Value Date Recorded Sex Assigned at Not on file Legal Sex Female 1:09 AM COLLECTION SYSTEMS ADMINISTRATOR Gender Identity Not on file Sexual Orientation Not on file 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 Employee Employer: [employer] Employee Facility: [facility] Does your job primarily involve providing care for bone marrow transplant patients? 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 On-site Have you been tested for Covid-19 previously? Yes What was the date of your prior test? 12/26/2019 What was the result of your prior test? Negative Have you had a known, specific COVID exposure? Yes Did the exposure take place at work / on campus? No Date of exposure: 05/01/2020 Name of the COVID-19 positive person to whom you were exposed: Arsalan Troy Was the person to whom you were exposed wearing a mask/face covering? No Date of the COVID-19 test for the person to whom you were exposed: 05/03/2020 Test result of the person to whom you were exposed: Positive What PPE was employee wearing? None Description of exposure: Working together putting in a ceiling fan Employee Symptoms: Yes Date of employee symptom onset: 05/03/2020 Description of Symptoms: Sore Throat Did you have symptoms at work? Yes Date symptoms started: 05/03/2020 Date last worked: 05/03/2020 Do you currently live with, or have ongoing contact with, someone known or suspected to have COVID-19? No Live with Someone Comment Person does not live with patient Exposure Risk (See Exposure Guide): High Assessment: Symptomatic, non-occupational Plan: (A) Stay home and test Testing Site Location: [facility] Script A (Stay home and test) Based on your symptoms and/or exposures, you should not come to work and will be referred for testing. ?? If you are working on site, you must leave work now. Notify your power plant supervisor that you have been directed to do so by the Occupational Health Employee Covid- 19 Call Center. ?? Please go to the testing site as directed for a Covid-19 test. They should be expecting you; if there is any confusion, please call us at [phone]. ?? While you are awaiting testing and results, you must remain away from any on- site work. You should isolate yourself at home, avoid contact with any household members as much as possible, and stay in your home without leaving except for medical care. If you are in a role that you can perform remotely at home, please discuss with your perennial house manager. ?? If your symptoms worsen, please call your physician or call 911 - let your providers, ER or EMS now that you are being tested for COVID19 and provide them results once you know them. ?? Once your results are back, you will receive further instruction from Occupational Health. Don'treturn to on-site work until you hear from Occupational Health. Occupational Health will notify youand your manager environmental services when you can return to work. ?? Should your test result positive, Occupational Health (OH) will work with you to identify any close contacts you may have had at work. OH will then alert your work contacts directly; you do not have to. Your power plant supervisor should consult with OH if they have any questions and before any communication with coworkers about a positive test. [facility] will help ensure that coworkers potentially at risk are no tified and given appropriate advice without unnecessary disclosure of personal health information. ?? You must follow any additional isolation or quarantine instructions provided to you from federal, state or local public health authorities. ?? We will notify you of your results, which are usually available within 24-48 hours. Your resultswill also post to your [facility] account ([email or web address]) We will send you an email with home quarantine instructions. If you have any questions, please callus at [phone] documented in this encounter Plan of Treatment Not on file documented as of this encounter Results * COVID-19 Coronavirus RNA Nasopharyngeal (05/03/2020 11:45 AM CDT) COVID-19 RNA Not Detected [facility] Comment: Interpretive Data Testing performed at [facility] Molecular Infectious Disease Laboratory. The 2019-Novel Coronavirus Assay (COVID-19) Real Time RT-PCR assay is for in vitro diagnostic use under FDA emergency use authorization only. A negative RT-PCR result does not preclude infection with COVID-19 and should not be used as the sole basis for treatment or other patient management decisions. Additional sample types have been validated according to CLIA regulations. ?? Current Interpretive Data was last revised on 2019. Testing performed by: [facility], [address] [place] [address], [id number] First COVID-19 test? No [facility] Comment:Testing performed by : [facility], [address] [place] [address], [id number] Employeed in healthcare? Yes [facility] Comment:Testing performed by : [facility], [address] [place] [address], [id number] status? No [facility] Comment:Testing performed by : [facility], [address] [place] [address], [id number] Group care resident? No [facility] Comment:Testing performed by : [facility], [address] [facility], [address] Hospitalized? No [facility] Comment:Testing performed by : [facility], [address] [place] [address], [id number] Is patient in ICU? No [facility] Comment:Testing performed by : [facility], [address] [place] [address], [address] Symptomatic as defined by CDC? Yes [facility] Comment:Testing performed by : [address], [address] Nasopharyngeal 05/03/2020 11 :45 AM CDT 05/04/2020 8:25 AM CDT Narrative [facility] - 05/04/2020 5:02 PM CDT Patient is employed by/enrolled at:->[facility] What is the reason for testing?->Symptoms compatible with COVID-19 in high-risk group (defined above in process inst.) Date of symptom onset->05/03/20 us Alley Ricketts MD LAB MICROBIOLOGY - GENERAL ORDERABLES Final Result [facility] [address] Department [place] [address] documented in this encounter Visit Diagnoses Diagnosis Sore throat- Primary Acute pharyngitis Sore throat Acute pharyngitis documented in this encounter Additional Health Concerns Infection Onset Date Last Indicated Resolved Time COVID: Suspected 05/03/2020 05/03/2020 05/04/2020 5:04 PM CDT documented as of this encounter Care Teams Lock And Dam Repairer Relationship Specialty [place] [address] [address] [facility] [address] [address] PCP - General Family Medicine 02/21/19 documented as of this encounter
--- OUTSIDE RECORDS SUMMARY | 2024-08-09 23:33 | XMS_ITS | Encounter Summary ---
Author Organization [facility] Healthcare Address [address] [place] [address] Care Team Providers Care An/Sqq 89(V)15 Sonar System Journeyman Name Role Phone Cassius Ortega NP Primary Care Provider [phone] Encounter Details Date Type Department Care Team (Late st Contact Info) Description 07/16/2020 3:40 PM HIGH WORKER Lab [address] [address] Charly Olson MD [address] [place] [address] [address] Hyperlipidemia, unspecified hyperlipidemia type Discharge Disposition: Discharge to home or [...] on file Legal Sex Female 1:09 AM HIGH WORKER Gender Identity Not on file Sexual [...] Date/Time Associated Diagnosis Comments LIPID PANEL Routine 07/16/2020 3:39 PM HIGH WORKER Hyperlipidemia, unspecified hyperlipidemia type documented in this encounter Results * (ABNORMAL) Lipid panel (07/16/2020 3:39 PM HIGH WORKER) Cholesterol 266(H) 30 - 199 mg/dL [facility] Comment: [...] Data was last revised on 2018. Triglycerides 337(H) <=149 mg/dL [facility] Comment: Interpretive Data [...] Data was last revised on 2018. HDL 51 >=40 mg/dL [facility] Comment: Interpretive Data [...] 2018. LDL, calculated 148(H) <=129 mg/dL [facility] Comment: Interpretive Data [...] was last revised on 2018. Non-HDL Cholesterol 215 mg/dL [facility] Comment: Interpretive Data Ages [...] was last revised on 2018. Chol/HDL ratio 5 [facility] Blood specimen (specimen) 07/16/2020 3:39 PM HIGH WORKER 07/16/2020 7:50 PM HIGH WORKER us Charly Olson MD LAB BLOOD ORDERABLES Final Res [place] [address] [address] Department [place] [address] documented in this encounter Visit Diagnoses Diagnosis Hyperlipidemia, unspecified hyperlipidemia type documented in this encounter Care Teams An/Sqq 89(V)15 Sonar System Journeyman Relationship Specialty [place] [address] [address] [place] [address] PCP - General Family Medicine 02/21/19 documented as of this encounter
--- OUTSIDE RECORDS SUMMARY | 2024-08-09 23:33 | XMS_ITS | Encounter Summary ---
Author Organization [facility] Address [address] [facility] [address] [place] [address] Phone Care Team Providers Care Trash Hauler Name Role Phone Cassius Ortega NP Primary Care Provider [phone] Encounter Details Date Type Department Care Team (Late st Contact Info) Description 01/08/2020 Telephone [facility] Obstetrics and Gynecology [address] [facility] Outpatient Health 7th Floor [address] [place] [address] Shila Hatch NP [address] [address] Social History Tobacco Use Types Packs/Day Years Used Date Smoking Tobacco: Never Smokeless Tobacco: Never Alcohol Use Standard Drinks/Week Comments Yes 0 (1 standard drink = 0.6 oz pur e alcohol) socially PHQ-2 Answer Date Recorded PHQ-2 Score 2 05/15/2019 Comments No Sex and Gender Information Value Date Recorded Sex Assigned at Not on file Legal Sex Female 1:09 AM DISH CARRIER Gender Identity Not on file Sexual Orientation Not on file 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 For now she is on the OB team ( we had room ). So she will be in rooms 4-8. I will add to your calendar. * Telephone Encounter - Kelly Irizarry MD - 01/08/2020 9:14 AM CDT Can I see her in the office today or tomorrow for the blood in her urine? * Telephone Encounter - Shila Hatch RN - 01/08/2020 9:08 AM CDT Pt called and report blood in her urine. She denies cramping, frequency or pain with urination.No blood noted on underwear from vagina or rectum. 1st urine of the day no blood, but after the 2nd all day. Started 01/06/20. 11 days post op. documented in this encounter Plan of Treatment Not on file documented as of this encounter Visit Diagnoses Not on filedocumented in this encounter Care Teams Trash Hauler Relationship Specialty [place] [address] [address] [address] PCP - General Family Medicine 02/21/19 documented as of this encounter
--- OUTSIDE RECORDS SUMMARY | 2024-08-09 23:33 | XMS_ITS | Encounter Summary ---
Author Organization [facility] Address [address] [facility] [address] [place] [address] Care Team Providers Care Distribution Designer Name Role Phone Cassius Ortega NP Primary Care Provider [phone] Reason for Visit * Reason Comments Pain Encounter Details Date Type Department Care Team (Latest Contact Info) Description 07/01/2020 11:30 AM SCIENTIFIC DIRECTOR Office Visit [facility] Orthopedics and Sports Medicine [address] [facility] [address] [place] [id number] Cuate Mcmullen MD [address] [place] [address] [facility] [address] [place] [address] Nontraumatic incomplete tear of right rotator cuff (Primary Dx); Biceps tendinitis of right upper extremity; Arthritis of right acromioclavicular joint Social History Tobacco Use Types Packs/Day Years Used Date Smoking Tobacco: Never Smokeless Tobacco: Never Alcohol Use Standard Drinks/Week Comments Yes 0 (1 standard drink = 0.6 oz pur e alcohol) socially PHQ-2 Answer Date Recorded PHQ-2 Score 2 05/15/2019 Comments No Sex and Gender Information Value Date Recorded Sex Assigned at Not on file Legal Sex Female 1:09 AM SCIENTIFIC DIRECTOR Gender Identity Not on file Sexual Orientation Not on file 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 documented as of this encounter Last Filed Vital Signs Vital Sign Reading Time Taken Comments Blood Pressure 111/78 07/01/2020 11:34 AM SCIENTIFIC DIRECTOR Pulse 67 07/01/2020 11:34 AM SCIENTIFIC DIRECTOR Temperature 35.9 ??C (96.7 ??F) 07/01/2020 1 1:34 AM SCIENTIFIC DIRECTOR Respiratory Rate - - Oxygen Saturation - - Inhaled Oxygen Concentration - - Weight 103.2 kg (227 lb 9.6 oz) 020 11:34 AM SCIENTIFIC DIRECTOR Height 165.1 cm (5' 5 ) 07/01/2020 11:3 4 AM SCIENTIFIC DIRECTOR Body Mass Index 37.87 07/01/2020 11:34 AM SCIENTIFIC DIRECTOR documented in this encounter Progress Notes * Cuate Mcmullen MD - 07/01/2020 11:30 AM CST Images from the original note [...] the Right Shoulder. HISTORY OF PRESENT ILLNESS Right shoulder pain for the past 2 years the pain has gotten worse the past month. Problem started when using her knee roller. Her pain is burning dull and achy. It is moderate in severity. Aleve Janette someone make her better. Using her shoulder and reaching out makes her worse. Her pain is continuous activity related and she has night pain. She has had steroid injections massage physical therapyanti-inflammatories the past if she is not here for surgical consultation. Collar Stay Fuser Tender completed by using M*Modal Fluency Direct speaking software, therefore, transcriptionvariances may occur. Pain Assessment Pain Assessment: 0-10 Pain Score: 7 PAST MEDCIAL HISTORY She has a past medical history of Delayed emergence from general anesthesia, Hypertension, PONV (postoperative nausea and vomiting), Post depression (2002), and Thyroid disease. She also has no past medical history of Acute respiratory failure requiring reintubation ([facility]), Breast cancer ([facility]), History of chemotherapy, History of radiation therapy, Postoperative delirium, or Smoking. PAST SURGICAL HISTORY She has a past surgical history that includes Tubal ligation (2008); Breast biopsy; Lumbar spine surgery (2012); Dilation and curettage of uterus (2004); section (); and Hysterectomy. MEDICATIONS She has a current medication list which includes the following prescription(s): ibuprofen, citalopram, levothyroxine, and losartan. ALLERGIES She is allergic to cefazolin. SOCIAL [...] pain and visual disturbance. Respiratory: Negative for apnea, cough, chest tightness and shortness of breath. [...] is not hyperactive. Objective PHYSICAL EXAM BP 111/78 Pulse 67 Temp (!) 35.9 ??C (96.7 ??F) Ht 165.1 cm (5' 5 ) Wt 103.2 kg (227 lb 9.6oz) LMP 10/23/2019 Comment: currently taking progesterone since November 2019- has breakthrough bleeding BMI 37.87 kg/m?? Right shoulder Inspection Erythema: absent Swelling: absent Skin temperature: normal AC joint deformity: absent Surgical scar/wound: present. The surgical scar/wound is healed and no evidence of infection. Thereis no drainage present. Palpation Tenderness is present. The patient has [...] 5/5 and pain free Supraspinatus: painful and 3/5 Bicep: 4/5 and painful Neurovascular The patient has normal vascular on the right side of her body. She has normal sensation on the right side of her body. Median: normal Radial: normal Ulnar: normal Tests Apprehension: negative Belly press: negative Cross arm: positive Hawkin's test: positive Impingement signs: positive Maicol's: positive Speed's: positive Left shoulder The patient has normal inspection, palpation, range of motion, strength, and stability of the left shoulder. REVIEW OF X-RAYS/STUDIES/LABS EXAM: Right shoulder MRI 2017 ?? HISTORY: Pain in right shoulder. ?? COMPARISON: 09/03/2014 ?? TECHNIQUE: Axial proton density [...] Diagnoses and all orders for this visit: Nontraumatic incomplete tear of right rotator cuff Biceps tendinitis of right upper extremity Arthritis of right acromioclavicular joint Procedures PLAN I discussed the nature of the patient's condition in the clinic today. We discussed arthroscopic rotator cuff repair possible bioinductive medical implant, distal clavicle excision, with subacromial decompression, biceps tenodesis. Risks and benefits of the procedure were discussed the patient to in clude bleeding, infection, damage to surrounding structures including nerves and vessels, persistent stiffness, retear, and possible fracture. The patient understood these risks and agreed to proceedwith surgery as described above and informed consent was established in the office today. Recommenddecreasing BMI prior to surgery goal decreasing BMI below 30. TARIK Thomas MD NTIFIC DIRECTOR documented in this encounter Plan of Treatment Not on file documented as of this encounter Visit Diagnoses Diagnosis Nontraumatic incomplete tear of right rotator cuff- Primary Biceps tendinitis of right upper extremity Arthritis of right acromioclavicular joint documented in this encounter Care Teams Distribution Designer Relationship Specialty [place] [address] [address] [address] PCP - General Family Medicine 02/21/19 documented as of this encounter
--- OUTSIDE RECORDS SUMMARY | 2024-08-09 23:33 | XMS_ITS | Encounter Summary ---
Author Organization [facility] Healthcare Address [address] [place] [address] Care Team Providers Care Industrial Cafeteria Manager Name Role Phone Cassius Ortega NP Primary Care Provider [phone] Roya Andre Unavailable [phone] Encounter Details Date Type Department Care Team (Late st Contact Info) Description 05/22/[address] [facility] - Imaging [address] [place] [address] Transcribed Order, Provider Social History Tobacco Use Types Packs/Day Years Used Date Smoking Tobacco: Never Smokeless Tobacco: Never Alcohol Use Standard Drinks/Week Comments Yes 0 (1 standard drink = 0.6 oz pur e alcohol) socially PHQ-2 Answer Date Recorded PHQ-2 Score 2 05/15/2019 Comments No Sex and Gender Information Value Date Recorded Sex Assigned at Not on file Legal Sex Female 1:09 AM PATTERNMAKER PLASTICS Gender Identity Not on file Sexual Orientation [...] Suspected 10/28/2020 10/28/2020 10/29/2020 6:16 AM CDT COVID: Suspected 07/15/2021 07/15/2021 07/29/2021 3:05 AM PATTERNMAKER PLASTICS documented as of this encounter Care Teams Industrial Cafeteria Manager Relationship Specialty [place] [address] [address] [facility] [address] [facility] [address] [place] [address] PCP - General Family Medicine 02/21/19 Roya Andre PA [address] [place] [address] [facility] [address] [address] Physician Air Pumper Orthopedic Surgery 04/09/22 Alina Higginbotham, [facility] [address] [facility] [address] Rag Boiler Infectious Diseases 10/08/22 documented as of this encounter
--- OUTSIDE RECORDS SUMMARY | 2024-08-09 23:33 | XMS_ITS | Encounter Summary ---
Author Organization [facility] Healthcare Address [address] [place] [address] Care Team Providers Care Manager Care Name Role Phone Cassius Ortega NP Primary Care Provider [phone] Reason for Referral * Diagnostic Imaging (Routine) - Closed Specialty Diagnoses / Procedures Referred By Cara t Referred To Contact Diagnoses Encounter for screening mammogram for malignant neoplasm of breast Procedures Screening Mammogram Bilateral W [place] Screening Mammogram, Self [address] [address] Referral ID Status Reason Start Date Expiration Date Visits Re quested Visits Authorized [id number] Closed 06/19/2020 07/19/2021 1 1 NSTRATOR KNITTING Reason for Visit * Diagnostic Imaging (Routine) - Closed Specialty Diagnoses / Procedures Referred By Cara alvarez Referred To Contact Diagnoses Encounter for screening mammogram for malignant neoplasm of breast Procedures Screening Mammogram Bilateral [place] Screening Mammogram, Self [address] [address] Referral ID Status Reason Start Date Expiration Date Visits Re quested Visits Authorized [id number] Closed 06/19/2020 07/19/2021 1 1 Encounter Details Date Type Department Care Team (Latest Contact Info) Description 06/20/2020 4:23 PM DEMONSTRATOR KNITTING - 06/20/2020 11:59 PM DEMONSTRATOR KNITTING Hospital Encounter [facility] Imaging and Radiology [address] [place] [address] Screening Mammogram, Self Encounter for screening mammogram for malignant neoplasm [...] on file Legal Sex Female 1:09 AM DEMONSTRATOR KNITTING Gender Identity Not on file Sexual Orientation [...] 1 tablet (150 mcg total) by mouth repairing calibrator before breakfast 90 tablet 3 05/17/2019 0 [...] NGHIA Schedule Routine, Read Routine (OP Routine) 06/20/2020 4:41 PM DEMONSTRATOR KNITTING Encounter for screening mammogram for malignant neoplasm of breast documented in this encounter Results * Screening Mammogram Bilateral W [place] (06/20/2020 4:41 PM DEMONSTRATOR KNITTING) Anatomical Region Laterality Modality Breast Bilateral Mammography 06/21/2020 7:33 AM DEMONSTRATOR KNITTING Impressions 06/21/2020 7:37 AM DEMONSTRATOR KNITTING BI-RADS Category 2, benign. ?? Annual screening mammography. ?? Electronically signed by: Izabella Patton M.D. Narrative 06/21/2020 7:37 AM DEMONSTRATOR KNITTING Examination: Bilateral screening digital mammography with CAD and tomosynthesis Order Date: 06/20/2020 4:30 PM History: Routine screening, benign left breast biopsy 2013 Comparison: 05/15/2019, 12/22/2016, 11/20/2015, Findings: Craniocaudal and mediolateral oblique views of both breasts were obtained utilizing full field digital mammography. The breasts are almost entirely fatty. The parenchymal pattern is stable. There is no suspicious dominant mass, clustered microcalcification or architectural distortion. This examination has been subjected to R2/CAD analysis. us Self Screening Mammogram IMG MAMMO PROCEDURES Fi nal Result documented in this encounter Visit Diagnoses Diagnosis Encounter for screening mammogram for malignant neoplasm of breast documented in this encounter Care Teams Manager Care Relationship Specialty [place] [address] [address] [facility] [address] [address] PCP - General Family Medicine 02/21/19 documented as of this encounter
--- OUTSIDE RECORDS SUMMARY | 2024-08-09 23:33 | XMS_ITS | Encounter Summary ---
Author Organization [facility] Healthcare Address [address] [place] [address] Care Team Providers Care Interior Wirer Name Role Phone Cassius Ortega NP Primary Care Provider [phone] Encounter Details Date Type Department Care Team (Late st Contact Info) Description 01/08/2020 5:50 PM CDT Lab [address] [address] Hematuria, unspecified type Social History Tobacco Use Types Packs/Day Years Used Date Smoking Tobacco: Never Smokeless Tobacco: Never Alcohol Use Standard Drinks/Week Comments Yes 0 (1 standard drink = 0.6 oz pur e alcohol) socially PHQ-2 Answer Date Recorded PHQ-2 Score 2 05/15/2019 Comments No Sex and Gender Information Value Date Recorded Sex Assigned at Not on file Legal Sex Female 1:09 AM 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 Gender Identity Not on file Sexual Orientation Not on file 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 documented as of this encounter Plan of Treatment Not on file documented as of this encounter Procedures Procedure Name Priority Date/Time Associated Diagnosis Comments URINE CULTURE Routine 01/08/2020 3:01 PM CDT Hematuria, unspecified type documented in this encounter Results * Urine culture Urine, in and out catheter (01/08/2020 3:01 PM CDT) Report Final Report: [facility] Urine, in and out catheter 01/08/2020 3:01 PM CDT 01/08/2020 6:06 PM CDT Narrative EDGAR HARDIN - 01/09/2020 7:25 PM CDT Testing performed by [facility] Microbiology Laboratory ([phone]) us Kelly Maria Irizarry MD LAB MICROBIOLO GY - GENERAL ORDERABLES Final Result [facility] Department [place] [address] documented in this encounter Visit Diagnoses Diagnosis Hematuria, unspecified type documented in this encounter Care Teams Interior Wirer Relationship Specialty [place] [address] [facility] [address] [place] [address] PCP - General Family Medicine 02/21/19 documented as of this encounter
--- OUTSIDE RECORDS SUMMARY | 2024-08-09 23:33 | XMS_ITS | Encounter Summary ---
Author Organization [facility] Address [address] [facility] [address] [place] [address] Care Team Providers Care Wares Sorter Name Role Phone Cassius Ortega NP Primary Care Provider [phone] Encounter Details Date Type Department Care Team (Late st Contact Info) Description 07/30/2020 Telephone [facility] Orthopedics and Sports Medicine [address] [facility] [address] [place] [address] Cuate Mcmullen MD [address] [place] [address] [address] [place] [address] Social History Tobacco Use Types Packs/Day Years Used Date Smoking Tobacco: Never Smokeless Tobacco: Never Alcohol Use Standard Drinks/Week Comments Yes 0 (1 standard drink = 0.6 oz pur e alcohol) socially PHQ-2 Answer Date Recorded PHQ-2 Score 2 05/15/2019 Comments No Sex and Gender Information Value Date Recorded Sex Assigned at Not on file Legal Sex Female 1:09 AM PROPAGATOR LABORER Gender Identity Not on file Sexual Orientation Not on file 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 Patient was going check herschedule and call back AGATOR LABORER documented in this encounter Plan of Treatment Not on file documented as of this encounter Visit Diagnoses Not on filedocumented in this encounter Care Teams Wares Sorter Relationship Specialty [place] [address] [address] [facility] [address] [address] PCP - General Family Medicine 02/21/19 documented as of this encounter
--- OUTSIDE RECORDS SUMMARY | 2024-08-09 23:33 | XMS_ITS | Encounter Summary ---
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 - not OB, had question about surgery Encounter Details Date Type Department Care Team (Late st Contact Info) Description 01/07/2020 Nurse Triage [address] [address] Ashley Blanchard, RN Social History Tobacco Use Types Packs/Day Years Used Date Smoking Tobacco: Never Smokeless Tobacco: Never Alcohol Use Standard Drinks/Week Comments Yes 0 (1 standard drink = 0.6 oz pur e alcohol) socially PHQ-2 Answer Date Recorded PHQ-2 Score 2 05/15/2019 Comments No Sex and Gender Information Value Date Recorded Sex Assigned at Not on file Legal Sex Female 1:09 AM 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 [1] Vaginal discharge is main symptom AND [2] small amount of blood Answer Assessment - Initial Assessment Questions 1. AMOUNT: Describe the bleeding that you are having. - SPOTTING: spotting, or pinkish / brownish mucous discharge; does not fill panti-liner or pad - MILD: less than 1 pad / hour; less than patient's usual menstrual bleeding - MODERATE: 1-2 pads / hour; small-medium blood clots (e.g., pea, grape, small coin) - SEVERE: soaking 2 or more pads/hour for 2 or more hours; bleeding not contained by pads or continuous red blood from vagina; large blood clots (e.g., golf ball, large coin) Spotting, noticed some blood when she urinated 2. ONSET: When did the bleeding begin? Is it continuing now? today 3. MENSTRUAL PERIOD: When was the last normal menstrual period? How is this different than your period? POD 10 from hysterectomy 4. REGULARITY: How regular are your periods? POD 10 from laparoscopic hysterectomy 5. ABDOMINAL PAIN: Do you have any pain? How bad is the pain? (e.g., Scale 1-10; mild, moderate, or severe) - MILD (1-3): doesn't interfere with normal activities, abdomen soft and not tender to touch - MODERATE (4-7): interferes with normal activities or awakens from sleep, tender to touch - SEVERE (8-10): excruciating pain, doubled over, unable to do any normal activities Dull , mild pain in lower belly 6. : Could you be ? Are you sexually active? Did you recently give ? no 7. : Are you ? no 8. HORMONES: Are you taking any hormone medications, prescription or OTC? (e.g., control pills, estrogen) *No Answer* 9. BLOOD THINNERS: Do you take any blood thinners? (e.g., Coumadin/warfarin, Pradaxa/dabigatran, aspirin) *No Answer* 10. CAUSE: What do you think is causing the bleeding? (e.g., recent peoplesoft hrms developer surgery, recent peoplesoft hrms developer procedure; known bleeding disorder, cervical cancer, polycystic ovarian disease, fibroids) Post surgical, I over did things today . 11. HEMODYNAMIC STATUS: Are you weak or feeling lightheaded? If so, ask: Can you stand and walk normally? no, not weak Yes, can walk normally 12. OTHER SYMPTOMS: What other symptoms are you having with the bleeding? (e.g., passed tissue, vaginal discharge, fever, menstrual-type cramps) feeling a little nauseated Answer Assessment - Initial Assessment Questions 1. DISCHARGE: Describe the discharge. (e.g., white, yellow, green, mccormick, foamy, cottage cheese-like) blood 2. ODOR: Is there a bad odor? none 3. ONSET: When did the discharge begin? today 4. RASH: Is there a rash in that area? If so, ask: Describe it. (e.g., redness, blisters, sores, bumps) no 5. ABDOMINAL PAIN: Are you having any abdominal pain? If yes: What does it feel like? (e.g., crampy, dull, intermittent, constant) Lower pressure 6. ABDOMINAL PAIN SEVERITY: If present, ask: How bad is it? (e.g., mild, moderate, severe) - MILD - doesn't interfere with normal activities - MODERATE - interferes with normal activities or awakens from sleep - SEVERE - patient doesn't want to move (R/O peritonitis) mild 7. CAUSE: What do you think is causing the discharge? Have you had the same problem before? Whathappened then? From my surgery, I over did it today 8. OTHER SYMPTOMS: Do you have any other symptoms? (e.g., fever, itching, vaginal bleeding, pain with urination, injury to genital area, vaginal foreign body) none 9. : Is there any chance you are ? When was your last menstrual period? no Protocols used: VAGINAL BLEEDING - [id number], VAGINAL [id number] After speaking with the pt. She states I over did it today and has some lower abd pain , she is POD 10 from a hysterectomy done laparoscopically. She noticed some blood when she urinated. The bleeding was scant. Denies pain upon urination. She said she is due for some ibuprofen and was going to rest. I told her if her pain or the bleeding get worse to go to the ED. I also advised her to call Dr. Irizarry office first thing tomorrow to see if they would like to see her prior to her appointment on 01/24/20. documented in this encounter Plan of Treatment Not on file documented as of this encounter Visit Diagnoses Not on filedocumented in this encounter Care Teams Ingot Caster Relationship Specialty [place] [address] [address] [address] [address] PCP - General Family Medicine 02/21/19 documented as of this encounter
--- OUTSIDE RECORDS SUMMARY | 2024-08-09 23:33 | XMS_ITS | Encounter Summary ---
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 The 2018-Novel Coronavirus [...] last revised on 2019. Testing performed by: [facility], [address] [place] [address], [id number] First COVID-19 test? No [facility] Comment:Testing performed by : 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, [address] [place] [address], [address] status? No [facility] Comment:Testing performed by : [facility], [address] [place] [address], [address] Group care resident? No [facility] Comment:Testing performed by : [facility], [address] [place] [address], [address] Hospitalized? No [facility] Comment:Testing performed by : [address], [address] Is patient in ICU? No [facility] Comment:Testing performed by : [address], [address] Symptomatic as defined by CDC? Yes [facility] Comment:Testing performed by : [facility], [address] [facility], [place]., [address] Nasopharyngeal 05/03/2020 11 :45 AM CDT 05/04/2020 8:25 AM CDT [facility]ative [facility] - 05/04/2020 5:02 PM CDT Patient is employed by/enrolled at:->[facility] What is the reason for testing?->Symptoms compatible with COVID-19 in high-risk group (defined above in process inst.) Date of symptom onset->05/03/20 us Alley Ricketts MD LAB MICROBIOLOGY - GENERAL ORDERABLES Final Result [facility] [address] Department of Laboratories [place], [place] [id number] documented in this encounter Visit Diagnoses Diagnosis Sore throat Acute pharyngitis documented in this encounter Additional Health Concerns Infection Onset Date Last Indicated Resolved Time COVID: Suspected 05/03/2020 05/03/2020 05/04/2020 5:04 PM CDT documented as of this encounter Care Teams Technical Support 1 Software Engineer Relationship Specialty [place] [address] [address] [facility] [address] [address] PCP - General Family Medicine 02/21/19 documented as of this encounter
--- OUTSIDE RECORDS SUMMARY | 2024-08-09 23:33 | XMS_ITS | Encounter Summary ---
Author Organization [facility] Medical Group Address [address] [facility] [address] [place] [address] Care Team Providers Care Grocery Clerk Marking Name Role Phone Cassius Ortega NP Primary Care Provider Encounter Details Date Type Department Care Team (Late st Contact Info) Description 07/16/2020 [place] [address] [facility] [address] [place] [address] Charly Olson MD [address] [place] [address] [address] Hyperlipidemia, unspecified hyperlipidemia type (Primary Dx) Social History Tobacco Use Types Packs/Day Years Used Date Smoking Tobacco: Never Smokeless Tobacco: Never Alcohol Use Standard Drinks/Week Comments Yes 0 (1 standard drink = 0.6 oz pur e alcohol) socially PHQ-2 Answer Date Recorded PHQ-2 Score 2 05/15/2019 Comments No Sex and Gender Information Value Date Recorded Sex Assigned at Not on file Legal Sex Female 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 AM 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 ASSISTANT Gender Identity Not on file Sexual Orientation Not on file 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 documented as of this encounter Plan of Treatment Not on file documented as of this encounter Results * (ABNORMAL) Lipid panel (07/16/2020 3:39 PM CARPENTER ASSISTANT) [facility] Cholesterol 266(H) 30 - 199 mg/dL ED[facility] [...] FLOR Blood specimen (specimen) 07/16/2020 3:39 PM CARPENTER ASSISTANT 07/16/2020 7:50 PM CARPENTER ASSISTANT us Charly Olson MD LAB BLOOD ORDERABLES Final Res ult [place] [address] [address] Department [place] [address] documented in this encounter Visit Diagnoses Diagnosis Hyperlipidemia, unspecified hyperlipidemia type- Primary documented in this encounter Care Teams Grocery Clerk Marking Relationship Specialty [place] [address] [address] [facility] [address] [place] [address] PCP - General Family Medicine 02/21/19 documented as of this encounter
--- OUTSIDE RECORDS SUMMARY | 2024-08-09 23:33 | XMS_ITS | Encounter Summary ---
Author Organization [facility] Medical Group Address [address] [facility] [address] [place] [address] Care Team Providers Care Disease Case Manager Rn Name Role Phone Cassius Ortega NP Primary Care Provider Encounter Details Date Type Department Care Team (Late st Contact Info) Description 04/15/2020 Telephone Emery Housing Installer [address] [facility] [address] [place] [address] Charly Olson MD [address] [place] [id number] Social History Tobacco Use Types Packs/Day Years Used Date Smoking Tobacco: Never Smokeless Tobacco: Never Alcohol Use Standard Drinks/Week Comments Yes 0 (1 standard drink = 0.6 oz pur e alcohol) socially PHQ-2 Answer Date Recorded PHQ-2 Score 2 05/15/2019 Comments No Sex and Gender Information Value Date Recorded Sex Assigned at Not on file Legal Sex Female 1:09 AM SAMPLE 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 * Telephone Encounter - Britton Youngblood MA - 04/15/2020 12:27 PM CDT Pt is requesting a refill on losartan. Has never been seen in office besides stress echo 05/2019. Would you like to fill? documented in this encounter Plan of Treatment Not on file documented as of this encounter Visit Diagnoses Not on filedocumented in this encounter Care Teams Disease Case Manager Rn Relationship Specialty [place] [address] [address] [facility] [address] [address] PCP - General Family Medicine 02/21/19 documented as of this encounter
--- OUTSIDE RECORDS SUMMARY | 2024-08-09 23:33 | XMS_ITS | Encounter Summary ---
Author Organization [facility] Medical Group Address [address] [address] Care Team Providers Care Tobacco Prizer Name Role Phone Cassius Ortega NP Primary Care Provider [phone] Reason for Visit * Reason Comments Pain Encounter Details Date Type Department Care Team (Late st Contact Info) Description 08/14/2020 3:45 PM SEA FOAM KISS MAKER Office Visit [facility] Orthopedics and Sports Medicine [address] [place] [phone] Cuate Mcmullen MD [address] [place] [address] [address] CATES [address] [address] Achilles tendinitis of left lower extremity (Primary Dx); Body mass index (BMI) 37.0-37.9, adult Social History Tobacco Use Types Packs/Day Years Used Date Smoking Tobacco: Never Smokeless Tobacco: Never Alcohol Use Standard Drinks/Week Comments Yes 0 (1 standard drink = 0.6 oz pur e alcohol) socially PHQ-2 Answer Date Recorded PHQ-2 Score 2 05/15/2019 Comments No Sex and Gender Information Value Date Recorded Sex Assigned at Not on file Legal Sex Female 1:09 AM SEA FOAM KISS MAKER Gender Identity Not on file Sexual Orientation Not on file 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 documented as of this encounter Last Filed Vital Signs Vital Sign Reading Time Taken Comments Blood Pressure 127/74 08/14/2020 3:58 PM SEA FOAM KISS MAKER Pulse 72 08/14/2020 3:58 PM SEA FOAM KISS MAKER Temperature 36.4 ??C (97.6 ??F) 08/14/2020 3:58 PM CS T Respiratory Rate - - Oxygen Saturation - - Inhaled Oxygen Concentration - - Weight 101.2 kg (223 lb) 08/14/2020 3:58 PM SEA FOAM KISS MAKER Height 165.1 cm (5' 5 ) 08/14/2020 3:58 PM SEA FOAM KISS MAKER Body Mass Index 37.11 08/14/2020 3:58 PM SEA FOAM KISS MAKER documented in this encounter Progress Notes * Cuate Mcmullen MD - 08/14/2020 3:45 PM CST Images from the original note were not included. NEW PATIENT VISIT This patient has been reviewed and COVID-19 risk has been assessed. Based on our clinical judgment,we find it appropriate to see this patient in clinic today. Or staff performed proper precautions and wore appropriate PPE when caring for this patient in office today. Both myself and the patient wore a mask throughout the visit. The patient understands current COVID-19 risks and wished to be seen today. Subjective CHIEF COMPLAINT She had concerns including Pain of the Left Ankle. HISTORY OF PRESENT ILLNESS Left Achilles tendon pain for the past 1 year. The pain is not recently gotten worse. Problem started walking. Pain is burning dull and achy in severe. A boot NSAIDs cream and oral medications make her. No move makes her worse. Her pain is activity related and she has night pain. She has miss work because his problem. She had physical therapy massage anti-inflammatories and a boot and is here for 2nd opinion. Diesel Power Mechanic completed by using M*Modal Fluency Direct speaking software, therefore, transcriptionvariances may occur. Pain Assessment Pain Assessment: 0-10 Pain Score: 3 Pain Location: Ankle Pain Orientation: Left Pain Descriptors: Aching, Burning, Dull Pain Frequency: Constant/continuous PAST MEDCIAL HISTORY She has a past medical history of Delayed emergence from general anesthesia, Hypertension, PONV (postoperative nausea and vomiting), Post depression (2002), and Thyroid disease. She also has no past medical history of Acute respiratory failure requiring reintubation ([facility]), Breast cancer ([facility]), History of chemotherapy, History of radiation therapy, Postoperative delirium, or Smoking. PAST SURGICAL HISTORY She has a past surgical history that includes Tubal ligation (2008); Breast biopsy; Lumbar spine surgery (2012); Dilation and curettage of uterus (2004); section (); and Hysterectomy. MEDICATIONS She has a current medication list which includes the following prescription(s): atorvastatin, citalopram, ibuprofen, levothyroxine, and losartan. ALLERGIES She is allergic [...] is not hyperactive. Objective PHYSICAL EXAM BP 127/74 Pulse 72 Temp 36.4 ??C (97.6 ??F) Ht 165.1 cm (5' 5 ) Wt 101.2 kg (223 lb) LMP 10/23/2019 Comment: currently taking progesterone since November 2019- has breakthrough bleeding BMI 37.11 kg/m?? Right foot/ankle The patient has normal inspection, palpation, range of motion, strength, and stability of the rightfoot. Left foot Inspection The patient has normal inspection of the left foot. Deformity: absent Edema: absent Gait: antalgic Heel: Achilles insertion: yes Achilles non insertion: yes Haglands: no Med-Lat compression: yes .Range of motion The patient has normal range of motion of the left foot and ankle. The patient has pain with range of motion of the left foot and ankle. Stability The patient has normal stability of the left foot and ankle. Strength The patient has 5/5 strength throughout with exceptions as noted below. Gastroc/Soleus (sitting) (S1,S2): 4/5 and pain limits strength Neurovascular The patient has normal vascular on the left side of their body. The patient has normal sensation on the left side of their body. REVIEW OF X-RAYS/STUDIES/LABS Assessment/Plan Олег was seen today for pain. Diagnoses and all orders for this visit: Achilles tendinitis of left lower extremity Body mass index (BMI) 37.0-37.9, adult Other orders - Estrogens, fractionated Procedures PLAN Recommend the patient to see a weight loss specialist or a weight loss surgeon recommend decreasingBMI below 30. Possible Aqua PT along with home exercise program. Continue non op treatment. TARIK Juarez MD FOAM KISS MAKER documented in this encounter Plan of Treatment Not on file documented as of this encounter Procedures Procedure Name Priority Date/Time Associated Diagnosis Comments ESTROGENS, FRACTIONATED Routine 08/20/2020 8:38 AM SEA FOAM KISS MAKER documented in this encounter Results * Estrogens, fractionated (08/20/2020 8:38 AM SEA FOAM KISS MAKER) Estrone 81 pg/mL [facility] Comment: REFERENCE VALUE Premenopausal :17-200 Postmenopausal : 7-40 ADDITIONAL INFORMATION This test was developed and its performance characteristics determined by [facility] in a manner consistent with CLIA requirements. This test has not been cleared or approved by the U.S. Food and Drug Administration. Estradiol 33 pg/mL [facility] FLOR Comment: REFERENCE VALUE Premenopausal: 15-350 (E2 levels vary widely through the menstrual cycle.) Postmenopausal: <10 ADDITIONAL INFORMATION This test was developed and its performance characteristics determined by [facility] in a manner consistent with CLIA requirements. This test has not been cleared or approved by the U.S. Food and Drug Administration. Test Performed by: [facility] [place] [address] Continuous Churn Buttermaker: Timothy Renae M.D. Ph.D.; CLIA# [id number] Blood specimen (specimen) 08/20/2020 8:38 AM SEA FOAM KISS MAKER 08/20/2020 11:51 AM SEA FOAM KISS MAKER Anjali Varela DPM LAB BLOOD ORDERABLES Final R esult [place] [address] [address] Department [place] [address] documented in this encounter Visit Diagnoses Diagnosis Achilles tendinitis of left lower extremity- Primary Body mass index (BMI) 37.0-37.9, adult documented in this encounter Care Teams Tobacco Prizer Relationship Specialty [place] [address] [address] [facility] [address] [place] [address] PCP - General Family Medicine 02/21/19 documented as of this encounter
--- OUTSIDE RECORDS SUMMARY | 2024-08-09 23:33 | XMS_ITS | Encounter Summary ---
Author Organization [facility] Medical Group Address [address] [facility] [address] [place] [address] Care Team Providers Care Irrigation Equipment Remover Name Role Phone Cassius Ortega NP Primary Care Provider Encounter Details Date Type Department Care Team (Late st Contact Info) Description 07/22/2020 Telephone [facility] Orthopedics and Sports Medicine [address] [facility] [address] [address] Eva Spann MA Social History Tobacco Use Types Packs/Day Years Used Date Smoking Tobacco: Never Smokeless Tobacco: Never Alcohol Use Standard Drinks/Week Comments Yes 0 (1 standard drink = 0.6 oz pur e alcohol) socially PHQ-2 Answer Date Recorded PHQ-2 Score 2 05/15/2019 Comments No Sex and Gender Information Value Date Recorded Sex Assigned at Not on file Legal Sex Female 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 Quinonez LE INSPECTOR * Telephone Encounter - Eva Spann MA - 07/22/2020 3:09 PM CST Patient is requesting a second opinion from you. The patient has been under the care of Dr. Varela, Achilles tendinitis, left leg. She continues to have issues and would like your advice. Please advise. Thank you MRI Report scanned into [employer] [phone] LE INSPECTOR documented in this encounter Plan of Treatment Not on file documented as of this encounter Visit Diagnoses Not on filedocumented in this encounter Care Teams Irrigation Equipment Remover Relationship Specialty [place] [address] [address] [facility] [address] [address] PCP - General Family Medicine 02/21/19 documented as of this encounter
--- OUTSIDE RECORDS SUMMARY | 2024-08-09 23:33 | XMS_ITS | Encounter Summary ---
Author Organization [facility] Address [address] [facility] [address] [place] [address] Phone Care Team Providers Care Corporate Scheduler Name Role Phone Cassius Ortega NP Primary Care Provider Reason for Visit * Reason Comments Follow-up Encounter Details Date Type Department Care Team (Late st Contact Info) Description 01/24/2020 1:20 PM CDT Office Visit [facility] Obstetrics and Gynecology [address] [facility] [address] [place] [address] Kelly Irizarry MD [address] [place] [address] [facility] [phone] [place] [address] Postop check (Primary Dx) Social History Tobacco Use Types Packs/Day Years Used Date Smoking Tobacco: Never Smokeless Tobacco: Never Alcohol Use Standard Drinks/Week Comments Yes 0 (1 standard drink = 0.6 oz pur e alcohol) socially PHQ-2 Answer Date Recorded PHQ-2 Score 2 05/15/2019 Comments No Sex and Gender Information Value Date Recorded Sex Assigned at Not on file Legal Sex Female 1:09 AM STAMP PAD FINISHER Gender Identity Not on file Sexual Orientation Not on file 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 female who presents to the office 4 weeks status post TLH/BSfor abnormal uterine bleeding and fibroids. Eating a regular diet without difficulty. Bowel movements are normal. The patient is not having any pain. She continues to have leakage of urine with coughing, sneezing, etc. Crampy RLQ pain, improving and mostly with walking long distances. Vitals BP 136/84 Ht 165.1 cm (5' 5 ) Wt 216 lb (98 kg) LMP 10/23/2019 BMI 35.94 kg/m?? General: appears stated age and cooperative Abdomen: soft, non-tender Incision: healing well, no drainage, no erythema, no hernia, no seroma, no swelling, no dehiscence,incision well approximated Vaginal cuff intact, still a small amount of non-foul light pink drainage Assessment/Plan Олег Paz is Doing well postoperatively. Operative findings again reviewed. Pathology report discussed. Leakage of urine consistent with stress incontinence. Given uterus was adhesed to her bladder, completed hysterectomy prior to determining if need for TVT. Kegel is 4/5 today, Will start kegel exercises and plan referral to urogyn in 2- 3 months if inadequate improvement. 1. Continue any current medications. 2. Wound care discussed. 3. Activity restrictions: work after 6 weeks, no heavy lifting until after 6 weeks, walking OK, swimming OK 4. Anticipated return to work: 2-3 weeks. 5. Follow up: 1 year. documented in this encounter Plan of Treatment Not on file documented as of this encounter Visit Diagnoses Diagnosis Postop check- Primary Follow-up examination, following unspecified surgery documented in this encounter Discontinued Medications Medication Sig Discontinue Reason Start Date End Da te polyethylene glycol (MIRALAX) 17 gram packetIndications:const ipation Take 1 packet (17 g total) by mouth 2 (two) times a day Therapy completed 12/29/2019 01/24/2020 ferrous sulfate (iron) 325 mg (65 mg of elemental iron) tabletIndications:Iron Deficiency Anemia Take 65 mg of elemental iron by mouth every other day Therapy completed 01/24/2020 acetaminophen 500 mg capsuleIndications:Pain Take 2 capsules (1,000 mg total) by mouth every 6 (six) hours 12/29/2019 01/24/2020 documented as of this encounter Care Teams Corporate Scheduler Relationship Specialty [place] [address] [address] [facility] [address] [address] PCP - General Family Medicine 02/21/19 documented as of this encounter
--- OUTSIDE RECORDS SUMMARY | 2024-08-09 23:34 | XMS_ITS | Encounter Summary ---
Author Organization [facility] Address [address] [facility] [address] [place] [address] Phone Care Team Providers Care City Plant Supervisor Name Role Phone Cassius Ortega NP Primary Care Provider [phone] Encounter Details Date Type Department Care Team (Late st Contact Info) Description 12/27/2019 Orders Only [facility] Obstetrics and Gynecology [address] [facility] [facility] 7[address] [place] [address] Kelly Irizarry MD [address] [facility] [phone] [place] [address] Social History Tobacco Use Types Packs/Day Years Used Date Smoking Tobacco: Never Smokeless Tobacco: Never Alcohol Use Standard Drinks/Week Comments Yes 0 (1 standard drink = 0.6 oz pur e alcohol) socially PHQ-2 Answer Date Recorded PHQ-2 Score 2 05/15/2019 Comments No Sex and Gender Information Value Date Recorded Sex Assigned at Not on file Legal Sex Female 1:09 AM HEALTH INFORMATICS INSTRUCTOR Gender Identity Not on file Sexual Orientation Not on file 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 Fermín is on back up, that we will planfor TLH/BS/cysto, but will do a LYNNE/BS/Cysto if needed, which would mostl likely be due to bladder adhesions. If stage 4 endo and it looks like best treatment would be BSO, she is OK with that, but otherwise wants to keep her ovaries. documented in this encounter Plan of Treatment Not on file documented as of this encounter Visit Diagnoses Not on filedocumented in this encounter Care Teams City Plant Supervisor Relationship Specialty [place] [address] [address] [address] [address] PCP - General Family Medicine 02/21/19 documented as of this encounter
--- OUTSIDE RECORDS SUMMARY | 2024-08-09 23:34 | XMS_ITS | Encounter Summary ---
Author Organization [facility] Address [address] [facility] [address] [place] [address] Care Team Providers Care Rabies Inspector Name Role Phone Cassius Ortega NP Primary Care Provider [phone] Reason for Visit * Reason Onset Date Comments Test Results 05/17/2019 Encounter Details Date Type Department Care Team (Late st Contact Info) Description 05/17/2019 Telephone Family Care at [address] [id number] Lita Murguia CMA Test Results Social History Tobacco Use Types Packs/Day Years Used Date Smoking Tobacco: Never Smokeless Tobacco: Never Alcohol Use Standard Drinks/Week Comments Yes 0 (1 standard drink = 0.6 oz pur e alcohol) PHQ-2 Answer Date Recorded PHQ-2 Score 2 05/15/2019 Comments No Sex and Gender Information Value Date Recorded Sex Assigned at Not on file Legal Sex Female 1:09 AM [employer] Gender Identity Not on file Sexual Orientation Not on file 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 Patient does not want any additional medications and will work on diet to lower her cholesterol. * Telephone Encounter - Lita Murguia MA - 05/17/2019 8:42 AM CDT ----- Message from Cassius Ortega NP sent at 05/16/2019 1:14 PM CDT ----- Please let the pt know her mammogram was normal, she should repeat this in one year. Please let thepatient know their cholesterol is too high. Elevated cholesterol can increase the risk for vasculardisease like heart attack and stroke. They can help lower this by eating more fresh vegetables and fiber and less red meats and fried foods. They can also take a medication for this . If they would like a medication please let me know and I will call it in. Her LDL was 152 this year. documented in this encounter Plan of Treatment Not on file documented as of this encounter Visit Diagnoses Not on filedocumented in this encounter Care Teams Rabies Inspector Relationship Specialty [place] [id number] [facility] [address] [id number] PCP - General Family Medicine 02/21/19 documented as of this encounter
--- OUTSIDE RECORDS SUMMARY | 2024-08-09 23:34 | XMS_ITS | Encounter Summary ---
Author Organization [facility] Healthcare Address [address] [place] [address] Care Team Providers Care Woods Boss Name Role Phone Cassius Ortega NP Primary Care Provider [phone] Encounter Details Date Type Department Care Team (Late st Contact Info) Description 12/28/2019 7:30 AM CDT - 12/28/2019 10:50 AM CDT Surgery [facility] Operating Room [address] [place] [address] Kelly Irizarry MD [address] [facility] [phone] [place] [address] LAPAROSCOPIC HYSTERECTOMY Surgery Details Date/Time Status Location OR Service Patient Class Case Cl ass Case Type Trauma Case? 12/28/2019 7:[address] 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 No / Unsure 10/20/2019 8:17 AM CDT documented as of this encounter Last Filed Vital Signs Vital Sign Reading Time Taken Comments Blood Pressure 116/56 12/28/2019 10:50 AM CDT Pulse 83 12/28/2019 10:50 AM CDT Temperature 36.4 ??C (97.5 ??F) 12/28/2019 10:36 AM C DT Respiratory Rate 14 12/28/2019 10:50 AM CDT Oxygen Saturation 98% 12/28/2019 10:50 AM CDT Inhaled Oxygen Concentration - - Weight - - Height - - Body Mass Index - - documented in this encounter Discharge Summaries * Lorraine Sheth MD - 12/29/2019 7:01 AM CDT Inpatient Discharge Summary BRIEF OVERVIEW Admitting Provider: Kelly Irizarry MD Discharge Provider: Kelly Irizarry MD Primary Care Physician at Discharge: Cassius Ortega NP [phone] Admission Date: 12/28/2019 Discharge Date: 12/29/2019 Admission Location: [facility] Problems/Diagnoses: Active Problems: Abnormal uterine bleeding Urinary frequency Resolved Problems: No resolved hospital problems. DETAILS OF HOSPITAL STAY Presenting Problem/History of Present Illness: Jaz Alford??is a 44 y.o.??year old female??who presents for evaluation of abnormal uterine bleeding. She is having very heavy menses as below.? Besides history below, also frequent urination Pain and discharge with ovulation. ?? Prior hx per Christin Alan??Has been having heavy menses??for the last year. However she did have 2 menses in July. Her monthly menses last about 7 days. 3/7 are heavy using at least 10 or more pads those heavy days. Her GP physician did a pap on her 3 years ago and this was normal. Hasn't seen a [employer] in at least [address] Irizarry. Hx of Thyroid disorder and is on meds for this. Had labs done from different physician in May and Hbg was 11.5. No pelvic pain but does have intermittent pelvic pressure. Hx of BTL. Had coitus last 06/2019 with not a regular partner. Ok for std testing today. Has noticed for couple of months when she ovulates has excessive watery discharge that only last a few days during ovulation. No abnl vag discharge any other time.?? Hospital Course: Patient underwent an uncomplicated TLH/BS/Cysto and was subsequently admitted for routine postoperative care. 1) Infectious disease - The patient received IV Gent/Clinda prior to skin incision. The patient wasafebrile and had no other signs or symptoms of infection throughout her hospital course. 2) Heme - The patient had an estimated blood loss of 25 mL. Her hemoglobin preoperatively was 11.4 and subsequently found to be 10.7 on postoperative day #1. Patient had no signs or symptoms of acuteblood loss anemia. 3) Cardiovascular/Pulmonary - The patient's vital signs were stable throughout her admission. She was weaned to room air on postoperative day #0 and was encouraged to use her incentive spirometer q1hr while awake. Her losartan was held on admission and was restarted on POD#1. 4) Gastrointestinal/Genitourinary - The patient was advanced to a regular diet on the evening of surgery, which she tolerated well. Patient was initiated on a bowel regimen postoperatively and sent home with a prescription for Miralax. Patient passed her VT on POD #0 and was voiding spontaneously prior to discharge. 5) Neurologic- Patient's pain was initially controlled with IV toradol, PO tylenol, and PO oxycodone. On POD #1 her IV Toradol was transitioned to ibuprofen. Patient pain was adequately controlled upon discharge and she was discharged home with prescriptions for her pain medications. She was continued on her home SSRI on admission. 6) Endocrine- Patient's home Synthroid was continued throughout admission. 7) Prophylaxis- Patient had sequential compression devices placed prior to surgery and were maintained throughout her admission. Active Issues Requiring Follow-up: Post-operative follow up Test Results Pending at Discharge: Pending Labs Order Current Status Surgical pathology In process Operative Procedures Performed: Procedure(s): LAPAROSCOPIC HYSTERECTOMY CYSTOSCOPY SALPINGO-OOPHORECTOMY Other Procedures: None Pertinent Test Results: None Discharge Details Physical Exam at Discharge: Discharge Condition: good Pulse: 70 Resp: 17 BP: 127/61 Temp: 98.1 ??F Weight: 216 lb (98 kg) Pertinent Exam Findings at Discharge: See progress note from day of discharge Discharge Disposition: Code Status at Discharge: Full Code Discharge Instructions: See AVS Discharge Medications: Current Medications TAKE these medications acetaminophen 500 mg capsule Take 2 capsules (1,000 mg total) by mouth every 6 (six) hours For: pain citalopram 40 mg tablet Take 1 tablet (40 mg total) by mouth daily Commonly known as: CeleXA docusate sodium 250 mg capsule Take 1 capsule (250 mg total) by mouth daily for 10 days Commonly known as: COLACE ibuprofen 600 mg tablet Take 1 tablet (600 mg total) by mouth 4 (four) times a day as needed for pain (pain) Commonly known as: ADVILMOTRIN iron 325 mg (65 mg of elemental iron) tablet Take 65 mg of elemental iron by mouth every other day For: anemia from inadequate iron Generic drug: ferrous sulfate levothyroxine 150 mcg tablet Take 1 tablet (150 mcg total) by mouth collator before breakfast Commonly known as: SYNTHROID losartan 50 mg tablet Take 50 mg by mouth every morning For: high blood pressure Commonly known as: COZAAR oxyCODONE 5 mg immediate release tablet Take 1 tablet (5 mg total) by mouth every 4 (four) hours as needed for pain For: pain Commonly known as: ROXICODONE polyethylene glycol 17 gram packet Take 1 packet (17 g total) by mouth 2 (two) times a day For: constipation Commonly known as: MIRALAX Outpatient Follow-Up: To be arranged by office Cosigned by Kelly Irizarry MD at 12/29/2019 1:48 PM CDT documented in this encounter Discharge Instructions * Discharge Instructions* Lorraine Sheth MD - 12/29/2019 12:03 PM CDT Call Your Doctor If: * You have a fever more than 101 degrees. * You have nausea or vomiting that is not controlled with medication. * You do not have a bowel movement for 3 days. * Your pain medication is not helping with your pain. * You have foul smelling drainage from your vagina or your incision. * You are bleeding more than you do during your regular period or you have heavy vaginal bleeding that fills 1 or more sanitary pads in 1 hour Diet: * You may eat a regular diet. * Drink at least 8-10 cups of water a day. * Avoid alcohol and caffeine. Activity: * Do NOT drive if you are taking narcotic pain medications. It is safe to drive when you are no longer taking pain medication and you can move your foot from the gas to the break without hesitation. * Do NOT place anything in your vagina for 6 weeks or until the doctor says it???s OK. (No tampons,douching or sexual intercourse.) * It is normal to have vaginal dryness after surgery. When you return to having sexual intercourse,you may need to use a water-soluble lubricant in your vagina, such as K-Y Jelly. Longer foreplay may also help. * Do not lift objects heavier than 25 pounds for 6 weeks. * It is OK to slowly climb stairs. * Staying active is very important to keep your bowels moving and improving circulation. * Take short walks every day. * Do NOT do any strenuous activity for 2 weeks. Care Instructions: Wound/Skin Care: * You may shower. Let the water run over incision. Pat wounds dry with a clean towel. Do not rub. * No tub baths/soaking or pools/hot tubs for 4 weeks or as directed. * Keep incision clean and dry between showers. * You may have paper strips over your wound. It is OK to shower but do NOT scrub them. The paper strips will fall off in 5-7 days. If they don???t fall off on their own you may remove them. Special Instructions: Normal Changes After Surgery: * You feel puffy and bloated for 1-2 weeks. * You may have some bruising on your belly. * A small amount of bleeding from your incision is normal. * You may have bleeding and discharge from your vagina for up to 6 weeks. * You may have mild shoulder pain from gas used during your surgery; this will get better with time. Follow Up: * It is important that you keep your follow up appointment in 6 weeks. * If you have not been notified with an appointment within 48h, please call the office. * If you need to make changes to your scheduled appointment, please call the office. Medications: -You should alternate between ibuprofen and tylenol. You can take 600mg Ibuprofen (three regular strength tablets) every 6 hours and 1000mg tylenol (two extra strength tablets) every 6 hours. -We recommend you alternate every 3 hours, so take tylenol then 3 hours later take ibuprofen then 3hours later take Tylenol again. -Take Oxycodone only as needed, do not take it if your pain is controlled with ibuprofen and tylenol. -Take Miralax as needed because you can be constipated after surgery or with oxycodone use. Take a capful once a day and if after a couple days you are still constipated, you may increase to twice a day. If you begin to experience diarrhea, decrease usage to only as needed. documented in this encounter Medications at Time of Discharge ibuprofen (ADVIL,MOTRIN) 600 mg tablet Take 1 tablet (600 mg total) by mouth 4 (four) times a day as needed for pain (pain) 90 tablet 12/29/2019 1 acetaminophen 500 mg capsuleIndicatio ns:Pain Take 2 capsules (1,000 mg total) by mouth every 6 (six) hours 30 tablet 12/29/2019 0 citalopram (CeleXA) 40 mg tablet Take 1 tablet (40 mg total) by mouth daily 90 tablet 3 05/17/2019 0 docusate sodium (COLACE) 250 mg capsule Take 1 capsule (250 mg total) by mouth daily for 10 days 30 capsule 12/29/2019 0 ferrous sulfate (iron) 325 mg (65 mg of elemental iron) tabletIndication s:Iron Deficiency Anemia Take 65 mg of elemental iron by mouth every other day 0 levothyroxine (SYNTHROID) 150 mcg tablet Take 1 tablet (150 mcg total) by mouth collator before breakfast 90 tablet 3 05/17/2019 0 losartan (COZAAR) 50 mg tabletIndication s:hypertension Take 50 mg by mouth every morning 3 05/09/2019 0 oxyCODONE (ROXICODONE) 5 mg immediate release tabletIndication s:Pain Take 1 tablet (5 mg total) by mouth every 4 (four) hours as needed for pain 20 tablet 12/29/2019 0 polyethylene glycol (MIRALAX) 17 gram packetIndication s:constipation Take 1 packet (17 g total) by mouth 2 (two) times a day 15 packet 12/29/2019 0 documented as of this encounter Ordered Prescriptions Prescription Sig Dispense Quantity Refills Last Filled Start Date End Date oxyCODONE (ROXICODONE) 5 mg immediate release tabletIndications: Pain Take 1 tablet (5 mg total) by mouth every 4 (four) hours as needed for pain 20 tablet 12/29/2019 0 docusate sodium (COLACE) 250 mg capsule Take 1 capsule (250 mg total) by mouth daily for 10 days 30 capsule 12/29/2019 0 ibuprofen (ADVIL,MOTRIN) 600 mg tablet Take 1 tablet (600 mg total) by mouth 4 (four) times a day as needed for pain (pain) 90 tablet 12/29/2019 1 polyethylene glycol (MIRALAX) 17 gram packetIndications: constipation Take 1 packet (17 g total) by mouth 2 (two) times a day 15 packet 12/29/2019 0 oxyCODONE (ROXICODONE) 5 mg immediate release tabletIndications: Pain Take 1 tablet (5 mg total) by mouth every 4 (four) hours as needed for pain 10 tablet 12/29/2019 0 acetaminophen 500 mg capsuleIndications :Pain Take 2 capsules (1,000 mg total) by mouth every 6 (six) hours 30 tablet 12/29/2019 0 documented in this encounter Discharge Disposition Disposition Code Departure Means Destination Discharge to home or self care documented in this encounter Progress Notes * Emily Canela RN - 12/29/2019 10:00 AM CDT 12/29/19 1000 Discharge Summary Chart reviewed For Medical Necessity Does patient have a planned readmission to hospital planned? No Discharge Disposition Home Equipment/Provider Needs No Home Needs Identified Discharge Additional Assistance Does the patient need discharge transport arranged? No Discharging to home, pod 1 tlh. No home care needs indicated. CM available for any discharge assistance. Add 12/29/19 * Lorraine Sheth MD - 12/29/2019 6:38 AM CDT 12/29/19 Jaz Alford is a 44 y.o. POD#1 s/p total laparoscopic hysterectomy, bilateral salpingectomy, cystoscopy. No acute events overnight. Denies fevers/chills/CP/SOB/N/V. Pain well controlled. Tolerating PO. Voiding spontaneously. Minimal vaginal spotting. Vital signs: BP 127/61 (BP Location: Left arm, Patient Position: Lying) Pulse 70 Temp 98.1 ??F (Oral) Resp 17 Ht 165.1 cm (5' 5 ) Wt 216 lb (98 kg) SpO2 99% BMI 35.94 kg/m?? UOP: 200/1000/1000 Gen: NAD. Sitting up in chair. A&Ox4. CV: RRR, no appreciable m/r/g. Pulm: CTAB, no wheezing/crackles. Unlabored. Abdomen: Soft, non-distended, appropriately tender to palpation. No guarding/rebound. Incision: Port sites c/d/i with bandages overtop Extremities: WWP. No b/l JOYCE/CT. Labs: Recent Results (from the past 12 hour(s)) CBC without differential Collection Time: 12/28/19 9:38 PM Result Value Ref Range WBC 12.7 (H) 3.8 - 9.9 K/cumm Hgb 10.7 (L) 11.9 - 15.5 g/dL Hct 32.1 (L) 35.6 - 45.5 % Plt 299 150 - 400 K/cumm MPV 9.4 9.1 - 12.3 fL RBC 3.63 (L) 3.90 - 5.20 M/cumm MCV 88.4 81.3 - 96.4 fL MCH 29.5 27.1 - 33.3 pg MCHC 33.3 32.3 - 35.7 g/dL RDW CV 13.9 11.1 - 14.9 % RDW SD 44.8 35.7 - 48.1 fL NRBC abs 0.00 0.00 - 0.01 K/cumm A/P: 44 y.o. POD#1 s/p total laparoscopic hysterectomy, bilateral salpingectomy, cystoscopy 1. ID: Afebrile. Status post perioperative Gent/clinda. No signs/symptoms infection. 2. Heme: EBL 25cc. Preoperative Hgb 11.4 to postoeprative Hgb 10.7. No signs/symptoms acute blood loss anemia. 3. CV/Pulm: VSS. Asymptomatic. #HTN- continue home anti-hypertensives 4. GI/: Tolerating regular diet. Voiding spontaneously. SLIV. 5. Pain: Well controlled. Continue oral regimen. 6. PPx: SCDs, ambulating. 7. Psych: #Anx/depression- continue home SSRI 8. Endo- #HypoT: continue home synthroid 9. Dispo: Stable for discharge home today Lorraine Sheth MD Cosigned by Kelly Irizarry MD at 12/29/2019 1:48 PM CDT Associated attestation - Kelly Irizarry MD - 12/29/2019 1:48 PM CDT I have seen and examined the patient on 12/29/19. I agree with the findings and plan of care as documented in the resident's/fellow's note. * Carmel Andrade MD - 12/28/2019 1:31 PM CDT Surgery: total laparoscopic hysterectomy, bilateral salpingectomy, cystoscopy Subjective: The patient's pain is well controlled. She denies nausea, vomiting, chest pain, shortness of breath. VS: BP 108/53 (BP Location: Left arm, Patient Position: Lying) Pulse 84 Temp 98.1 ??F (Oral) Resp 18 Ht 165.1 cm (5' 5 ) Wt 216 lb (98 kg) SpO2 97% BMI 35.94 kg/m?? Exam: NAD RRR CTAB Abd: non-tender, mildly distended, incisions clean/dry/intact with bandaids on place SCDs in place Plan: ID: afebrile, sp periop Clinda/Gent Heme: EBL No blood loss documented. Check AM CBC. CV/Pulm: VS normal. Encourage IS. GI/: undergoing void trial. Adult Diet Regular diet PPx: SCDs and ambulation Pain: toradol, tylenol, oxycodone Carmel Andrade MD PGY4 documented in this encounter H&P Notes * Carmel Andrade MD - 12/28/2019 6:39 AM CDT CLINICAL SUPPORT TECH Pre-Op Chief Complaint: scheduled surgery HPI: Jaz Alford is a 44 y.o. year old female who presents for evaluation of abnormal uterine bleeding. She is having very heavy menses as below. ?? Besides history below, also frequent urination Pain and discharge with ovulation. ?? Prior hx per Christin Alan Has been having heavy menses??for the last year. However she did have 2menses in July. Her monthly menses last about 7 days. 3/7 are heavy using at least 10 or more pads those heavy days. Her GP physician did a pap on her 3 years ago and this was normal. Hasn't jesus [employer] in at least [address] Irizarry. Hx of Thyroid disorder and is on meds for this. Had labs done from different physician in May and Hbg was 11.5. No pelvic pain but does have intermittent pelvic pressure. Hx of BTL. Had coitus last 06/2019 with not a regular partner. Ok for std testing today. Has noticed for couple of months when she ovulates has excessive watery discharge that only last a few days during ovulation. No abnl vag discharge any other time.?? Past Medical History: Diagnosis Date ??? Delayed [...] ??? TUBAL LIGATION 2008 Bilateral tubal ligation CLINICAL SUPPORT TECH History: No LMP recorded. Pap History: No history of abnormal pap HRT: Premenopausal OB History Para Term AB Living 3 2 2 0 1 2 SAB TAB Ectopic Multiple Live Births 1 0 0 0 2 HOME MEDICATIONS : citalopram (CeleXA) 40 mg tablet ferrous sulfate (iron) 325 mg (65 mg of elemental iron) tablet levothyroxine (SYNTHROID) 150 mcg tablet losartan (COZAAR) 50 mg tablet norethindrone (AYGESTIN) 5 mg tablet Family History Problem Relation Age of Onset [...] Skin cancer Sister Cancer, skin; Social History Socioeconomic History ??? Marital status: Spouse name: Not on file ??? Number of children: 2 ??? Years of education: Not on file ??? Highest education level: Not on file Tobacco Use ??? Smoking status: Never Smoker ??? Smokeless tobacco: Never Used Substance and Sexual Activity ??? Alcohol use: Yes Comment: socially ??? Drug use: No ??? Sexual activity: Defer Partners: Male control/protection: Tubal Ligation Review of Systems: Review of systems per HPI and otherwise all other systems are negative VITALS: Vitals: 12/28/19 0557 12/28/19 0600 BP: 125/69 Pulse: 70 Resp: 11 Temp: 97.5 ??F TempSrc: Temporal SpO2: 99% Physical Exam: General: NAD, mood appropriate Pulmonary: non-labored and clear to ausculation bilaterally Cardiovascular: Regular rate and rhythm Abdomen: Soft, non-tender, non-distended and palpable mass Extremities: Warm and well perfused Lymphatic: not assessed GENITAL EXAM: Deferred Lab/Imaging Review No results found for: CA125 Recent Labs Lab Units 12/26/19 1507 WBC K/cumm 9.8 HEMOGLOBIN g/dL 11.4* HEMATOCRIT % 35.1* PLATELETS K/cumm 323 SODIUM mmol/L 141 POTASSIUM PLASMA mmol/L 4.0 ANIONGAP mmol/L 9 CREATININE mg/dL 0.76 GLUCOSE mg/dL 91 CALCIUM mg/dL 9.2 Screening Mammogram Bilateral W Connor Narrative: RESULT: Examination: Bilateral screening digital mammography with CAD and tomosynthesis History: Routine screening, benign left breast biopsy. Comparison: 12/22/2016, 11/28/2015, 02/16/2014. Findings: Craniocaudal and mediolateral oblique views of both breasts were obtained utilizing full field digital mammography. The breasts are predominantly fatty. Bilateral stable scattered fibroglandular densities are seen. Mild distortion of the upper part of the left breast is seen due to previous biopsy. There is no suspicious dominant mass, clustered microcalcification . This examination has been subjected to R2/CAD analysis. Impression: 1. BI-RADS Category 2, benign. 2. Annual screening mammography, monthly self breast examinations and yearly breast examination by a physician are recommended. Electronically signed by: Ana Reinoso is a 44 y.o. with AUB who is being admitted for scheduled surgery. #AUB -Patient counseled about risks/benefits/alternatives of surgery. Discussed plan for TLH/BS/Cysto, however possible conversion to LYNEN may be needed due to history of two prior CS. Discussed if evidence of stage IV endo, would like to proceed with bilateral salpingo-oophorectomy. -Plan to admit overnight for observation -All questions answered Carmel Andrade MD 206:39 AM Cosigned by Kelly Irizarry MD at 12/28/2019 7:28 AM CDT Associated attestation - Kelly Irizarry MD - 12/28/2019 7:28 AM CDT I have seen and examined the patient on 12/28/19. I agree with the findings and plan of care as documented in the resident's/fellow's note. documented in this encounter Nursing Notes * Shantel Lin RN - 12/29/2019 12:23 PM CDT Patient is being discharged to home care. RN has gone over post op discharge plans with her and shestates understanding. Her sister is picking her up to take her home from the hospital. Patient reports no pain and met all discharge needs. documented in this encounter Miscellaneous Notes * Plan of Care - Shantel Lin RN - 12/29/2019 8:57 AM CDT Problem: Health Behavior: Goal: Understanding of discharge needs will improve Outcome: Progressing Problem: Bowel/Gastric: Goal: Gastrointestinal status for postoperative course will improve Outcome: Progressing Goals: Clinical Goals for the Shift: void by 1630, pain control, tolerate food Summary: patient will be discharged to home care this afternoon * Plan of Care - Dexter Hernandez RN - 12/29/2019 6:45 AM CDT Goals: Pain management Summary: patient is progressing toward goals. * Hospital Course - Lorraine Sheth MD - 12/28/2019 5:30 PM CDT Patient underwent an uncomplicated TLH/BS/Cysto and was subsequently admitted for routine postoperative care. 1) Infectious disease - The patient received IV Gent/Clinda prior to skin incision. The patient wasafebrile and had no other signs or symptoms of infection throughout her hospital course. 2) Heme - The patient had an estimated blood loss of 25 mL. Her hemoglobin preoperatively was 11.4 and subsequently found to be 10.7 on postoperative day #1. Patient had no signs or symptoms of acuteblood loss anemia. 3) Cardiovascular/Pulmonary - The patient's vital signs were stable throughout her admission. She was weaned to room air on postoperative day #0 and was encouraged to use her incentive spirometer q1hr while awake. Her losartan was held on admission and was restarted on POD#1. 4) Gastrointestinal/Genitourinary - The patient was advanced to a regular diet on the evening of surgery, which she tolerated well. Patient was initiated on a bowel regimen postoperatively and sent home with a prescription for Miralax. Patient passed her VT on POD #0 and was voiding spontaneously prior to discharge. 5) Neurologic- Patient's pain was initially controlled with IV toradol, PO tylenol, and PO oxycodone. On POD #1 her IV Toradol was transitioned to ibuprofen. Patient pain was adequately controlled upon discharge and she was discharged home with prescriptions for her pain medications. She was continued on her home SSRI on admission. 6) Endocrine- Patient's home Synthroid was continued throughout admission. 7) Prophylaxis- Patient had sequential compression devices placed prior to surgery and were maintained throughout her admission. * Plan of Care - Juyd Omer RN - 12/28/2019 3:19 PM CDT Goals: Clinical Goals for the Shift: void by 1630, pain control, tolerate food Problem: Health Behavior: Goal: Understanding of discharge needs will improve Outcome: Progressing Problem: Bowel/Gastric: Goal: Gastrointestinal status for postoperative course will improve Outcome: Progressing Problem: Lack of Knowledge: Goal: Understanding of discharge needs will improve Outcome: Progressing Problem: Physical Regulation: Goal: Postoperative complications will be avoided or minimized Outcome: Progressing Problem: Respiratory: Goal: Will maintain a patent airway Outcome: Progressing Problem: Sensory: Goal: Pain level will decrease Outcome: Progressing Problem: Skin Integrity: Goal: Will remain free from wound infection Outcome: Progressing Summary: Patient arrived to floor at 1230 and is progressing towards all goals. Patient reports pain 4/10, which is manageable, but started her on oral medications and educated her on pain medicationregimen. Patient attempted to void but has not be able to yet. Void trial due at 1630. Patient reports no nausea but has not had an appetite yet. She is tolerating clear liquids. Surgical incisions are clean, dry, and covered with TX bandaids. There is scant shadowing on the R dressing. Will continue to monitor patient's progress. * Op Note - Carmel Andrade MD - 12/28/2019 8:07 AM CDT Total Laparoscopic Hysterectomy Operative Note Patient Name: Jaz Alford Date of Service: 12/28/2019 Surgeon: Kelly Irizarry MD Assistants: Surgeon(s) and Role: * Kelly Irizarry MD - Primary * Carmel Andrade MD - Resident - Assisting Anesthesia: General, endotracheal Preoperative Diagnosis: 1. Abnormal uterine bleeding Postoperative Diagnosis: same Name of Operation: 1. Total laparoscopic hysterectomy 2. bilateral salpingectomy 3. Cysto Indication for Procedure: This is a 44 y.o. presenting with abnormal uterine bleeding. She was initially managed withhormonal therapy but continued to have bothersome bleeding and bothersome bladder symptoms so the patient desired definitive management. She was counseled regarding risks, benefits and alternatives. Consents were signed. Operative Findings: EUA: Mobile, non-enlarged uterus. No palpable masses Laparoscopic: Adhesions from omentum to the anterior abdominal wall without involvement of the bowel. Normal appearing uterus but with adhesions noted to the anterior abdominal wall and the bladder, normal bilateral tubes (prior partial salpingectomy noted) and ovaries, normal appearing liver and upper abdomen. Rectus muscle diastasis was noted. Cysto: Bilateral uterteral jets seen with no evidence of accidental cystotomy or stitches in the bladder Description of Procedure: After obtaining the appropriate operative consents, the patient was takento the operating room, where SCDs were placed for VTE prophylaxis. General anesthesia was obtained without difficulty and found to be adequate. She was positioned in the dorsal lithotomy position in yellowfins and examined under anesthesia with the above operative findings. She was then prepped and draped in the normal sterile fashion. A bivalve speculum was placed in thepatient's vagina, and a single tooth tenaculum was placed on the anterior lip of the cervix and a V-care uterine manipulator was inserted in the usual fashion. The single tooth tenaculum and bivalve speculum were removed. A mendoza catheter was inserted.The patient received gentamycin and clindamycinprior to incision due to Ancef allergy. Attention was then turned to the patient???s abdomen where 0.25% marcaine was infiltrated into the inferior aspect of the umbilical fold and a 5 mm skin incision was then made at this site. Abdominalaccess was obtained using direct optical insertion technique. Pneumoperitoneum was obtained and a survey of the abdomen and pelvis was performed with the above findings noted. 5mm skin incisions werethen made in the right and left lower quadrants and two 5 millimeter trocars were placed under direct visualization. The laparoscope was then replaced in a lateral trocar to visualize the umbilical trocar and found to be without injusry. Laparoscope was returned to the midline port. The ligasure was then used to take down omental adhesions. No bowel was involved in the adhesions. The ureters were identified bilaterally and traced down to the cardinal ligament along the pelvic sidewall. Blunt graspers and marylands were used to take down adhesions from the uterus to the anterior abdominal wall and bladder. The Ligasure device was then used to coagulate and cut the round ligament on the left. The anterior and posterior leaflets of the broad were opened and a bladder flap was created. The mesosalpinx was incised to separate the fallopian tube from the ovary and the uterineovarian vessels were coagulated and cut. The remnants of the fallopian tubes were then removed fromthe lateral trocars. The posterior leaf of the broad was taken down and the uterine arteries were taken just above the level of the cup. The same procedure was then repeated on the right. The uterus was inspected and noted to be devascularized. 200ml of sterile saline was then instilled into the bladder and the bladder was noted to have been taken down from the bladder flap. Esperanza type crossbody bites were taken to drop the uterine pedicles down just past the level of the cervical cup andthe bladder flap was further continued until the pubovesical cervical fascia was exposed anteriorly. Colpotomy was then performed using the Bovie L hook device and additional bites with the Ligasure as needed to ensure hemostasis. The uterus was then pulled through the vagina. An Acepto bulb was placed in the vagina with a 0-V-lock 180 suture to maintain pneumoperitoneum. The right uterine pediclewas noted to have some oozing which was coagulated with the ligasure device after the ureter was identified and noted to be running inferior and lateral to the area of bleeding. The vaginal cuff was then closed using 0-V-Lock 180 suture in a running fashion with incorporation of the uterosacral ligaments. 5ml floseal was then placed on the R uterine pedicle. The pressure was brought down to <8mm Hg and no bleeding was noted. All pedicles were noted to be hemostatic. Cystoscopy was performed with above operative findings. The trocars were then removed and the gas was allowed to escape. The incisions were closed with 4-0 Monocryl sub-dermal stitches. Bandaids wereapplied. Patient was taken to recovery room in stable condition. Complications: none Estimated Blood Loss: 25cc Intraoperative Fluids: 1000cc crystalloid Urine Output: 125cc clear urine at end of procedure Sponge/Instrument/Needle Counts: The sponge, lap and needle counts were correct x2. Specimens Removed: uterus and bilateral tubes The attending, Kelly Irizarry MD, was present for the entire procedure. Carmel Andrade MD Cosigned by Kelly Irizarry MD at 12/29/2019 1:49 PM CDT Associated attestation - Kelly Irizarry MD - 12/29/2019 1:49 PM CDT I was present for the entire procedure. documented in this encounter Plan of Treatment Not on file documented as of this encounter Procedures Procedure Name Priority Date/Time Associated Diagnosis Comments CBC WITHOUT DIFFERENTIAL Routine 12/28/2019 9:38 PM CDT SURGICAL PATHOLOGY Routine 12/28/2019 9: 44 AM CDT Abnormal uterine bleeding Urinary frequency SALPINGO-OOPHORECTOM Y 12/28/2019 7:30 AM CDT Abnormal uterine bleeding Urinary frequency Case Notes Tier 2a - Proceed 12/28/19 bcsCOVID CYSTOSCOPY 12/28/2019 7:30 AM CDT Abnormal uterine bleeding Urinary frequency Case Notes Tier 2a - Proceed 12/28/19 bcsCOVID LAPAROSCOPIC HYSTERECTOMY - ABDOMINAL BILATERAL SALPINGO-OOPHORECTOM Y 12/28/2019 7:30 AM CDT Abnormal uterine bleeding Urinary frequency Case Notes Tier 2a - Proceed 12/28/19 bcsCOVID POCT HCG, URINE Routine 12/28/2019 6:27 AM CDT CBC WITHOUT DIFFERENTIAL STAT 12/28/2019 6:10 AM CDT BASIC METABOLIC PANEL STAT 12/28/2019 6:10 AM CDT documented in this encounter Results * (ABNORMAL) CBC without differential (12/28/2019 9:38 PM CDT) WBC 12.7(H) 3.8 - 9.9 K/cumm [facility] Hgb 10.7(L) 11.9 - 15.5 g/dL [facility] Hct 32.1(L) 35.6 - 45.5 % [facility] Plt 299 150 - 400 K/cumm [facility] MPV 9.4 9.1 - 12.3 fL [facility] RBC 3.63(L) 3.90 - 5.20 M/cumm [facility] MCV 88.4 81.3 - 96.4 fL [facility] MCH 29.5 27.1 - 33.3 pg [facility] MCHC 33.3 32.3 - 35.7 g/dL [facility] RDW CV 13.9 11.1 - 14.9 % [facility] RDW SD 44.8 35.7 - 48.1 fL [facility] NRBC abs 0.00 0.00 - 0.01 K/cumm [facility] Blood specimen (specimen) 12/28/2019 9:38 PM CDT 12/28/2019 10:29 PM CDT us Kelly Irizarry MD LAB BLOOD ORDLukas WOLFE Final Result [facility] [place] [address] * Surgical pathology (12/28/2019 9:44 AM CDT) Tissue (Uterus with/without tubes & ovaries, Non-neoplastic) 12/28/2019 9:44 AM CDT Narrative PATHOLOGY [facility] - 01/02/2020 3:34 PM CDT EPIC results best viewed via link to PDF [facility] [place] [address] SURGICAL PATHOLOGY REPORT FINAL Patient Name: ?? JAZ ALFORD Gender: ??F : ??1975 (Age: 44) Address: ??[address], [place], [place] ??[address] Hospital #: ??[id number] Taken:12/28/2019 Received:12/28/2019 Reported: 01/02/2020 Patient Type: [facility] Observation ?? Service: Surgery Location: [facility] 4239 Physician(s): ??Kelly Irizarry M.D. Cassius Ortega NP Diagnosis: Uterus, cervix, and bilateral tubes, laparoscopic hysterectomy and bilateral salpingectomy ? - Endometrium ? - Glandular and stromal breakdown - No evidence of hyperplasia or malignancy ? - Myometrium ? - Leiomyoma ? - Serosa ? - Adhesions ? - Cervix ? - Microglandular hyperplasia with squamous metaplasia ? - Fallopian tubes, right and left ? - No histopathologic abnormality [facility]/01/01/2020 14:06 By this signature, I attest that the above diagnosis is based upon my personal examination of the slides(and/or other material indicated in the diagnosis). Edilberto Norwood M.D., Ph.D. Report Electronically Reviewed and Signed Out By ??Edilberto Norwood M.D., Ph.D. 01/02/2020 15:34:07 Microscopic Description and Comment: Microscopic examination substantiates the above cited diagnosis. García Keene D.O. History: The patient is a 44-year-old woman with abnormal uterine bleeding and urinary frequency. Operative procedure: hysterectomy. Specimen(s) Received: A: Uterus,cervix,bilateral tubes and ovaries Gross Description: Received in a single formalin filled container labeled with the patient's name and uterus, cervix, bilateral tubes is a 170 g uterus (10.0 cm from fundus to cervix by 8.1 cm from cornu to cornu by 5.9 cm from anterior to posterior) with detached, bilateral, unoriented, fimbriated, purple-mccormick fallopian tubes (3.7 cm in length by 0.5 cm in diameter, and 5.4 cm in length by 0.5 cm in diameter). ??The serosa is pink-shaffer, smooth, and glistening with roughening on the anterior surface. ??The ectocervix is covered by unremarkable, glistening, pale pink-shaffer mucosa, measures 3.2 x 2.8 cm, and has an eccentrically located, oval-shaped os measuring 0.4 cm in diameter. ??Sections through the cervix show a rubbery, white-shaffer, fibrous cut surface with scattered nabothian cysts. ??The endocervical canal is lined by glistening, purple-shaffer mucosa and measures 3.5 cm in length by 0.3 cm in diameter. ??The triangular shaped endometrial cavity measures 3.2 x 3.0 cm and is lined by glistening, brown-shaffer endometrium measuring 0.1 cm in thickness. ??Sections through the uterus show rubbery, trabecular pink-shaffer myometrium measuring 2.5 cm in thickness. ??Sections through the tubes show pinpoint lumens. ??Labeled A1 to A2 - 12 and 6 o'clock cervix, respectively; A3 to A4 - anterior endomyometrium, installation service representative full-thickness sections with roughened serosa included in A3; A5 to A6 - posterior endomyometrium, bisected installation service representative full-thickness section; A7 - installation service representative shorter fallopian tube; A8 - installation service representative longer fallopian tube. ??Jar 2. mr2/12/29/2019 09:25 PA(s): Maria Arias MS, PA ([facility]) By this signature, I attest that the above diagnosis is based upon my personal examination of the slides(and/or other material). The performance characteristics of some immunohistochemical stains, fluorescence in-situ hybridization tests and immunophenotyping by flow cytometry cited in this report (if any) were determined by the Surgical Pathology Department at [facility] as part of an ongoing quality consultant program and in compliance with federally mandated regulations drawn from the Clinical Laboratory Improvement Act of 1988 (CLIA '88). ??Some of these tests rely on the use of analyte specific reagents and are subject to specific labeling requirements by the US Food and Drug Administration. ??Such diagnostic tests may only be performed in a facility that is certified by the Department of Health and Human Services as a high complexity laboratory under CLIA '88. ??The FDA has determined that such clearance or approval is not necessary. ??This test is used for clinical purposes. ??It should not be regarded as investigational or for research. ??Nevertheless, federal rules concerning the medical use of analyte specific reagents require that the following disclaimer be attached to the report: This test was developed and its performance characteristics determined by the Surgical Pathology Department of [facility]. ??It has not been cleared or approved by the U. S. Food and Drug Administration. IMAGES AND SCANNED DOCUMENTS, IF INCLUDED, ONLY VIEWABLE IN PDF VERSION OF REPORT us Kelly Maria Irizarry MD LAB PATHOLOGY ORDERABLES Final Result PATHOLOGY [facility] 3rd Floor [place], [place] [phone] * POCT hCG, urine (12/28/2019 6:27 AM CDT) HCG, ur, POC Negative Lot Number [id number] QC Backgroud Clear Acceptable QC Control Line Acceptable Urine 12/28/2019 6:27 AM CDT Shonna Knight NP POINT OF CARE TEST ORDERABLES Final Result * (ABNORMAL) CBC without differential (12/28/2019 6:10 AM CDT) Pathologist [facility] WBC 7.5 3.8 - 9.9 K/cumm [facility] Hgb 11.4(L) 11.9 - 15.5 g/dL [facility] Hct 34.5(L) 35.6 - 45.5 % [facility] Plt 283 150 - 400 K/cumm [facility] MPV 9.0(L) 9.1 - 12.3 fL [facility] RBC 3.98 3.90 - 5.20 M/cumm [facility] MCV 86.7 81.3 - 96.4 fL [facility] MCH 28.6 27.1 - 33.3 pg [facility] MCHC 33.0 32.3 - 35.7 g/dL [facility] RDW CV 13.8 11.1 - 14.9 % [facility] RDW SD 43.6 35.7 - 48.1 fL [facility] NRBC abs 0.00 0.00 - 0.01 K/cumm [facility] Blood specimen (specimen) 12/28/2019 6:10 AM CDT 12/28/2019 6:27 AM CDT us Kellyfam Irizarry MD LAB BLOOD ORDE RABLES Final Result [facility] [place] [address] * (ABNORMAL) Basic metabolic panel (12/28/2019 6:10 AM CDT) Sodium 136 135 - 145 mmol/L [facility] Potassium, pl 4.2 3.3 - 4.9 mmol/L [facility] Chloride 105 97 - 110 mmol/L [facility] CO2 21(L) 22 - 32 mmol/L [facility] Anion gap 10 2 - 15 mmol/L [facility] BUN 8 8 - 25 mg/dL [facility] Creatinine 0.67 0.60 - 1.10 mg/dL [facility] Glucose 100 70 - 199 mg/dL [facility] Comment: Interpretive Data Fasting glucose >/= [...] interpretive data was last revised 2017. Calcium 9.0 8.5 - 10.3 mg/dL [facility] Blood specimen (specimen) 12/28/2019 6:10 AM CDT 12/28/2019 6:27 AM CDT us Kelly Irizarry MD LAB BLOOD SETH WOLFE Final Result [facility] [place] [address] documented in this encounter Visit Diagnoses Diagnosis Abnormal uterine bleeding Unspecified disorder of menstruation and other abnormal bleeding from female genital tract Urinary frequency Abnormal uterine bleeding Unspecified disorder of menstruation and other abnormal bleeding from female genital tract Urinary frequency Abnormal uterine bleeding Unspecified disorder of menstruation and other abnormal bleeding from female genital tract Urinary frequency documented in this encounter Admitting Diagnoses Diagnosis Abnormal uterine bleeding Unspecified disorder of menstruation and other abnormal bleeding from female genital tract Urinary frequency documented in this encounter Administered Medications Inactive Administered Medications - up to 3 most recent administrations Medication Order MAR Action Action Date Dose Rate Site acetaminophen (TYLENOL) tablet 1,000 mg 1,000 mg, oral, Every 6 hours scheduled, First dose on Wed12/29/19 at 0300, When NSAIDS are ordered, alternate acetaminophen with NSAIDS (03:00; 9:00, 15:00, 21:00), Indications: PainIndications:Pain Given 12/29/2019 8:41 AM CDT 1,000 mg Given 12/29/2019 3:46 AM CDT 1,000 mg bupivacaine (MARCAINE) 0.25 % (2.5 mg/mL) preservative free injection As needed, Starting on Jacquie 12/28/19 at 0807, Intra-Op Given 12/28/2019 8:07 AM CDT 20 mL citalopram (CeleXA) tablet 40 mg 40 mg, oral, Every morning, First dose on Wed12/29/19 at 0900, Indications: Anxiety with DepressionIndications:Anxiety with Depression Given 12/29/2019 8:41 AM CDT 40 mg fentaNYL (SUBLIMAZE) preservative free injection 50 mcg 50 mcg, intravenous, Once as needed, breakthrough pain, Starting on Jacquie 12/28/19 at 1033, For 1 dose, Phase I, Administer for uncontrolled or increasing pain while in PACU only. Then proceed to PACU 1st line analgesic., Indications: PainIndications:Pain Given 12/28/2019 10:50 AM CDT 50 mcg HYDROmorphone (DILAUDID) injection 0.2 mg 0.2 mg, intravenous, Administer over 2 Minutes, Every 10 min PRN, 1st line for pain, Starting on Jacquie 12/28/19 at 1033, Phase I, Notify Anesthesiologist if total PACU dose reaches 2 mg and pain score 5/10 or more., Indications: PainIndications:Pain Given 12/28/2019 11:32 AM CDT 0. 2 mg ketorolac (TORADOL) injection 30 mg 30 mg, intravenous, Every 6 hours scheduled, First dose on Jacquie 12/28/19 at 1630, For 24 hours, Indications: PainIndications:Pain Given 12/29/2019 5:46 AM CDT 30 mg Given 12/29/2019 12:28 AM CDT 30 mg Given 12/28/2019 4:30 PM CDT 30 mg Lactated Ringer's (LR) infusion 30 mL/hr, intravenous, Continuous, Starting on Jacquie 12/28/19 at 0630 New Bag 12/28/2019 6:25 AM CDT 30 mL/hr 30 mL/hr Lactated Ringer's (LR) infusion 125 mL/hr, intravenous, Continuous, Starting on Wed12/28/19 at 1130, Phase I & Post-op Floor, Saline lock when tolerating PO well. New Bag 12/28/2019 10:52 AM CDT 125 mL/hr 125 mL/hr levothyroxine (SYNTHROID) tablet 150 mcg 150 mcg, oral, Daily (early AM), First dose on Wed12/29/19 at 0600, Administer on an empty stomach, preferably 30 minutes before breakfast. Take 4 hours apart from antacids, iron and calcium products. Given 12/29/2019 5:47 AM CDT 150 mcg ondansetron (ZOFRAN) injection 4 mg 4 mg, intravenous, Administer over 2 Minutes, Every 6 hours PRN, nausea, vomiting, if not tolerating PO, Starting on Wed12/28/19 at 1236, Indications: Nausea and VomitingIndications:Nausea and Vomiting ondansetron ODT (ZOFRAN-ODT) disintegrating tablet 4 mg 4 mg, oral, Every 6 hours PRN, nausea, vomiting, Starting on Wed12/28/19 at 1236, Indications: Nausea and VomitingIndications:Nausea and Vomiting oxyCODONE (ROXICODONE) tablet 5 mg 5 mg, oral, Every 4 hours PRN, 1st line for pain, Starting on Wed12/28/19 at 1236, Indications: PainIndications:Pain Given 12/29/2019 10:25 AM CDT 5 mg Given 12/28/2019 9:28 PM CDT 5 mg Given 12/28/2019 1:17 PM CDT 5 mg polyethylene glycol (MIRALAX) packet 17 g 17 g, oral, 2 times daily, First dose on Wed12/28/19 at 1315, Hold if diarrhea., Indications: constipationIndications:co nstipation Given 12/29/2019 8:41 AM CDT 17 g scopolamine patch 72 hour 1 patch 1 patch, transdermal, Administer over 72 Hours, Once, On Jacquie 12/28/19 at 0730, For 1 dose Medication Applied 12/28/2019 7:25 AM CDT 1 patch Behind Right Ear simethicone (MYLICON) chewable tablet 80 mg 80 mg, oral, 4 times daily PRN, flatulence, bloating, fullness, and discomfort of gastrointestinal gas, Starting on Jacquie 12/28/19 at 1236, Indications: FlatulenceIndications:Flat ulence Given 12/28/2019 9:29 PM CDT 80 mg sodium chloride 0.9 % irrigation As needed, Starting on Jacquie 12/28/19 at 0908, Intra-Op Given 12/28/2019 9:08 AM CDT 1,000 mL Surgical Site Given 12/28/2019 8:07 AM CDT 2,000 mL Vera rgical Site sterile water irrigation As needed, Starting on Jacquie 12/28/19 at 0807, Intra-Op Given 12/28/2019 8:07 AM CDT 1,000 mL Other (Comment) documented in this encounter Discontinued Medications Medication Sig Discontinue Reason Start Date End Da te oxyCODONE (ROXICODONE) 5 mg immediate release tabletIndications:Pain Take 1 tablet (5 mg total) by mouth every 4 (four) hours as needed for pain 12/29/2019 12/29/2019 norethindrone (AYGESTIN) 5 mg tablet Take 2 tablets (10 mg total) by mouth daily Stop Taking at Discharge 11/30/2019 12/29/2019 documented as of this encounter Active and Recently Administered Medications Times are shown in CDT. Scheduled Medication Order 12/27/2019 12/28/2019 12/29/2019 acetaminophen (TYLENOL) tablet 1,000 mg 1,000 mg, oral, Every 6 hours scheduled, First dose on Wed12/29/19 at 0300, When NSAIDS are ordered, alternate acetaminophen with NSAIDS (03:00; 9:00, 15:00, 21:00), Indications: Pain 0346 (Given - Provid er: Dexter Hernandez RN)0841 (Given - Provider: Shantel Lin RN) citalopram (CeleXA) tablet 40 mg 40 mg, oral, Every morning, First dose on Wed12/29/19 at 0900, Indications: Anxiety with Depression 0841 (Given - Provid er: Shantel Lin RN) clindamycin (CLEOCIN) 900 mg/50 mL in sodium chloride 0.9% (premix) piggyback 900 mg (COMPLETED)(Linked Group 1) 900 mg, intravenous, at 100 mL/hr, Administer over 30 Minutes, Once, On Jacquie 12/28/19 at 0630, For 1 dose, Pre-Op, Administer within in 60 minutes of incision., Indications: Prophylaxis, Surgical 0750 (Given - Provider: Micaela Murguia CRNA) gentamicin (GARAMYCIN) 370 mg in sodium chloride 0.9% 37 mL (10 mg/mL) syringe (COMPLETED)(Linked Group 1) 370 mg (rounded from 367 mg = 5 mg/kg ? 73.4 kg Adjusted weight), intravenous, Administer over 30 Minutes, Once, On Jacquie 12/28/19 at 0630, For 1 dose, Pre-Op, Administer within 60 minutes of incision., Indications: Prophylaxis, Surgical 0748 (New Bag - Provider: Micaela Murguia CRNA) ketorolac (TORADOL) injection 30 mg 30 mg, intravenous, Every 6 hours scheduled, First dose on Jacquie 12/28/19 at 1630, For 24 hours, Indications: Pain 1630 (Given - Provider: Judy Omer RN) 0028 (Given - Provider: Dexter Hernandez RN)0546 (Given - Provider: Dexter Hernandez RN)1200 (Due) levothyroxine (SYNTHROID) tablet 150 mcg 150 mcg, oral, Daily (early AM), First dose on Wed12/29/19 at 0600, Administer on an empty stomach, preferably 30 minutes before breakfast. Take 4 hours apart from antacids, iron and calcium products. 0547 (Given - Provid er: Dexter Hernandez RN) polyethylene glycol (MIRALAX) packet 17 g 17 g, oral, 2 times daily, First dose on Jacquie 12/28/19 at 1315, Hold if diarrhea., Indications: constipation 1317 (Not Given - Provider: Judy Omer RN - Reason: Other - Comment: not tolerating PO yet)2128 (Not Given - Provider: Dexter Hernandez RN - Reason: Patient/family refused) 0841 (Given - Provider: Shantel Lin RN) scopolamine patch 72 hour 1 patch (COMPLETED) 1 patch, transdermal, Administer over 72 Hours, Once, On Jacquie 12/28/19 at 0730, For 1 dose 0725 (Medication Applied - Provider: Helen Yeboah RN)1530 (Medication Removed - Provider: Judy Omer RN) sodium chloride 0.9% flush 0.5-20 mL 0.5-20 mL, intra-catheter, Every 8 hours scheduled, First dose on Jacquie 12/28/19 at 1400, Flush volume based on line type and size. , Indications: Flushing 1317 (Not Given - Provider: Judy Omer RN - Reason: IV Infusing)212 (Lab Draw - Provider: Dexter Hernandez RN) 0542 (Not Given - Provider: Dexter Hernandez RN - Reason: Other) Continuous Medication Order 12/27/2019 12/28/2019 12/29/2019 Lactated Ringer's (LR) infusion (CANCELED) 30 mL/hr, intravenous, Continuous, Starting on Jacquie 12/28/19 at 0630 0625 (New Bag - Provider: Helen Yeboah RN)1028 (Anesthesia Volume Adjustment - Provider: Micaela Murguia CRNA) Lactated Ringer's (LR) infusion 125 mL/hr, intravenous, Continuous, Starting on Jacquie 12/28/19 at 1130, Phase I & Post-op Floor, Saline lock when tolerating PO well. 1052 (New Bag - Provider: Ira Tineo, ELTON)1630 (Stopped - Provider: Judy Omer, ELTON) PRN Medication Order 12/27/2019 12/28/2019 12/29/2019 bupivacaine (MARCAINE) 0.25 % (2.5 mg/mL) preservative free injection (CANCELED) As needed, Starting on Jacquie 12/28/19 at 0807, Intra-Op 0807 (Given - Provider: Kelly Irizarry MD) calcium carbonate (TUMS) chewable tablet 500 mg 500 mg, oral, 4 times daily PRN, heartburn, Starting on Jacquie 12/28/19 at 1236, Indications: Dyspepsia fentaNYL (SUBLIMAZE) preservative free injection 50 mcg (COMPLETED) 50 mcg, intravenous, Once as needed, breakthrough pain, Starting on Jacquie 12/28/19 at 1033, For 1 dose, Phase I, Administer for uncontrolled or increasing pain while in PACU only. Then proceed to PACU 1st line analgesic., Indications: Pain 1050 (Given - Provider: Ira Tineo RN) HYDROmorphone (DILAUDID) injection 0.2 mg (CANCELED) 0.2 mg, intravenous, Administer over 2 Minutes, Every 10 min PRN, 1st line for pain, Starting on Jacquie 12/28/19 at 1033, Phase I, Notify Anesthesiologist if total PACU dose reaches 2 mg and pain score 5/10 or more., Indications: Pain 1132 (Given - Provider: Ira Tineo RN) ondansetron (ZOFRAN) injection 4 mg(Linked Group 2) 4 mg, intravenous, Administer over 2 Minutes, Every 6 hours PRN, nausea, vomiting, if not tolerating PO, Starting on Jacquie 12/28/19 at 1236, Indications: Nausea and Vomiting ondansetron ODT (ZOFRAN-ODT) disintegrating tablet 4 mg(Linked Group 2) 4 mg, oral, Every 6 hours PRN, nausea, vomiting, Starting on Jacquie 12/28/19 at 1236, Indications: Nausea and Vomiting oxyCODONE (ROXICODONE) tablet 5 mg 5 mg, oral, Every 4 hours PRN, 1st line for pain, Starting on Jacquie 12/28/19 at 1236, Indications: Pain 1317 (Given - Provider: Judy Omer RN)2128 (Given - Provider: Dexter Hernandez RN) 1025 (Given - Provider: Shantel Lin RN) simethicone (MYLICON) chewable tablet 80 mg 80 mg, oral, 4 times daily PRN, flatulence, bloating, fullness, and discomfort of gastrointestinal gas, Starting on Jacquie 12/28/19 at 1236, Indications: Flatulence 2128 (Given - Provider: Dexter Hernandez, ELTON) sodium chloride 0.9 % irrigation (CANCELED) As needed, Starting on Jacquie 12/28/19 at 0908, Intra-Op 0807 (Given - Provider: Kelly Irizarry MD)0908 (Given - Provider: Carmel Andrade MD) sodium chloride 0.9% flush 0.5-20 mL 0.5-20 mL, intra-catheter, As needed, line care, Starting on Jacquie 12/28/19 at 1236, Flush volume based on line type and size. Flush before and after each use. , Indications: Flushing sterile water irrigation (CANCELED) As needed, Starting on Jacquie 12/28/19 at 0807, Intra-Op 0807 (Given - Provider: Kelly Irizarry MD - Comment: Instruments) Linked Groups Order Group 1: clindamycin (CLEOCIN) 900 mg/50 mL in sodium chloride 0.9% (premix) piggyback 900 mg (COMPLETED)Jump to med 900 mg, intravenous, at 100 mL/hr, Administer over 30 Minutes, Once, On Jacquie 12/28/19 at 0630, For 1 dose, Pre-Op, Administer within in 60 minutes of incision., Indications: Prophylaxis, Surgical And gentamicin (GARAMYCIN) 370 mg in sodium chloride 0.9% 37 mL (10 mg/mL) syringe (COMPLETED)Jump to med 370 mg (rounded from 367 mg = 5 mg/kg ? 73.4 kg Adjusted weight), intravenous, Administer over 30 Minutes, Once, On Jacquie 12/28/19 at 0630, For 1 dose, Pre-Op, Administer within 60 minutes of incision., Indications: Prophylaxis, Surgical Group 2: ondansetron ODT (ZOFRAN-ODT) disintegrating tablet 4 mgJump to med 4 mg, oral, Every 6 hours PRN, nausea, vomiting, Starting on Jacquie 12/28/19 at 1236, Indications: Nausea and Vomiting Or ondansetron (ZOFRAN) injection 4 mgJump to med 4 mg, intravenous, Administer over 2 Minutes, Every 6 hours PRN, nausea, vomiting, if not tolerating PO, Starting on Jacquei 12/28/19 at 1236, Indications: Nausea and Vomiting documented in this encounter Orders Medications Ordered That Segundo ht Not Have Been Administered Count Last Ordered Date First Ordered Date calcium carbonate (TUMS) kendra wable tablet 500 mg 1 12/28/2019 clindamycin (CLEOCIN) 900 mg /50 mL in sodium chloride 0.9% (premix) piggyback 900 mg 1 12/28/2019 gentamicin (GARAMYCIN) 370 m g in sodium chloride 0.9% 37 mL (10 mg/mL) syringe 1 12/28/2019 naloxone (NARCAN) 0.4 mg/mL injection 0.04-0.4 mg 1 12/28/2019 ondansetron (ZOFRAN) injection 4 mg 2 12/27 ondansetron ODT (ZOFRAN-ODT) disintegrating tablet 4 mg 1 12/28/2019 prochlorperazine (COMPAZINE) injection 10 mg 1 12/28/2019 sodium chloride 0.9% flush 0.5-20 mL 4 12/01 CORE MEASURES Count Last Ordered Date First Ord ered Date REASON FOR NO VTE PROPHYLAXIS AT ADMISSION 1 12/28/2019 documented in this encounter Care Teams Woods Boss Relationship Specialty [place] [address] [address] [facility] [address] [address] PCP - General Family Medicine 02/21/19 documented as of this encounter
--- OUTSIDE RECORDS SUMMARY | 2024-08-09 23:34 | XMS_ITS | Encounter Summary ---
Author Organization [facility] Healthcare Address [address] [place] [address] Care Team Providers Care Box Toe Flanger Stitchdowns Name Role Phone Cassius Ortega NP Primary Care Provider [phone] Encounter Details Date Type Department Care Team (Late st Contact Info) Description 05/15/2019 10:20 AM CDT Lab [address] [address] Brittani Agosto [place] [id number] [place] [address] [place] [address] [employer] [facility] [facility] [address] [place] [address] Annual physical exam; Hypothyroidism, unspecified type; Essential hypertension Discharge Disposition: Discharge to home or [...] on file 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 Gender Identity Not on file Sexual [...] Priority Date/Time Associated Diagnosis Comments EGFR Routine 05/15/2019 10:17 AM CDT Annual physical exam Hypothyroidism, unspecified type Essential hypertension DIFFERENTIAL AUTO Routine 05/15/2019 10: 17 AM CDT Annual physical exam Hypothyroidism, unspecified type Essential hypertension CBC WITH AUTO DIFFERENTIAL Routine 05/15/2019 10:17 AM CDT Annual physical exam Hypothyroidism, unspecified type Essential hypertension TSH Routine 05/15/2019 10:17 AM CDT Annual physical exam Hypothyroidism, unspecified type Essential hypertension HEMOGLOBIN A1C Routine 05/15/2019 10:17 AM CDT Annual physical exam Hypothyroidism, unspecified type Essential hypertension LIPID PANEL Routine 05/15/2019 10:17 AM CDT Annual physical exam Hypothyroidism, unspecified type Essential hypertension COMPREHENSIVE METABOLIC PANEL Routine 05/15/2019 10:17 AM CDT Annual physical exam Hypothyroidism, unspecified type Essential hypertension documented in this encounter Results * eGFR (05/15/2019 10:17 AM CDT) [facility] eGFR 109 mL/min/1.7 3 m2 [facility] Comment: Interpretive Data Reference Interval Normal ?>/= 90 mL/min/1.73m2 Mildly decreased* ? 60 - 89 mL/min/1.73m2 Mildly to moderately decreased ?45 - 59 mL/min/1.73m2 Moderately to severely decreased ??30 - 44 mL/min/1.73m2 Severely decreased ?15 - 29 mL/min/1.73m2 Kidney Failure ?< 15 ??mL/min/1.73m2 *Relative to young adult level If -Haitian multiply value by 1.16. Estimated glomerular filtration rate is determined by [...] 70. Current interpretive data was last reviewed 2016. Blood specimen (specimen) 05/15/2019 10:17 AM CDT 05/15/2019 12:15 PM CDT us Cassius Ortega NP LAB BLOOD ORDERABLES Final Re sult [facility] [address] [place] [address] * Differential, auto (05/15/2019 10:17 AM CDT) Neutrophil abs 4.3 1.7 - 6.5 K/cumm [facility] Imm gran abs 0.0 0.0 - 0.1 K/cumm [facility] Lymphocyte abs 2.2 0.8 - 3.3 K/cumm [facility] Monocyte abs 0.6 0.2 - 0.8 K/cumm [facility] Eosinophil abs 0.1 0.0 - 0.5 K/cumm [facility] Basophil abs 0.0 0.0 - 0.1 K/cumm [facility] Neutrophil pct 59.9 % [facility] Comment: Interpretive Data Percent cell count reference ranges are not reported, since discordance with absolute values may lead to misinterpretation of CBC data. Current Interpretive Data was last revised on 2017. Imm gran pct 0.4 % [facility] Comment: Interpretive Data Percent cell count reference ranges are not reported, since discordance with absolute values may lead to misinterpretation of CBC data. Current Interpretive Data was last revised on 2017. Lymphocyte pct 30.4 % [facility] Comment: Interpretive Data Percent cell count reference ranges are not reported, since discordance with absolute values may lead to misinterpretation of CBC data. Current Interpretive Data was last revised on 2017. Monocyte pct 7.6 % [facility] Comment: Interpretive Data Percent cell count reference ranges are not reported, since discordance with absolute values may lead to misinterpretation of CBC data. Current Interpretive Data was last revised on 2017. Eosinophil pct 1.3 % [facility] Comment: Interpretive Data Percent cell count reference ranges are not reported, since discordance with absolute values may lead to misinterpretation of CBC data. Current Interpretive Data was last revised on 2017. Basophil pct 0.4 % [facility] Comment: Interpretive Data Percent cell count reference ranges are not reported, since discordance with absolute values may lead to misinterpretation of CBC data. Current Interpretive Data was last revised on 2017. Blood specimen (specimen) 05/15/2019 10:17 AM CDT 05/15/2019 11:30 AM CDT Cassius Ortega NP LAB BLOOD ORDERABLES Final Re sult [facility] [address] [place] [address] * (ABNORMAL) CBC with auto differential (05/15/2019 10:17 AM CDT) WBC 7.2 3.8 - 9.9 K/cumm [facility] Hgb 11.5(L) 11.9 - 15.5 g/dL [facility] Hct 36.1 35.6 - 45.5 % [facility] Plt 328 150 - 400 K/cumm [facility] MPV 9.5 9.1 - 12.3 fL [facility] RBC 4.17 3.90 - 5.20 M/cumm [facility] MCV 86.6 81.3 - 96.4 fL [facility] MCH 27.6 27.1 - 33.3 pg [facility] MCHC 31.9(L) 32.3 - 35.7 g/dL [facility] RDW CV 13.7 11.1 - 14.9 % [facility] RDW SD 43.5 35.7 - 48.1 fL [facility] NRBC abs 0.00 0.00 - 0.01 K/cumm [facility] Blood specimen (specimen) 05/15/2019 10:17 AM CDT 05/15/2019 11:30 AM CDT Cassius Ortega CLOSER ON LAB BLOOD [place] [address] [place] [address] * Comprehensive metabolic panel (05/15/2019 10:17 AM CDT) Sodium 138 135 - 145 mmol/L [facility] Potassium, pl 4.2 3.3 - 4.9 mmol/L [facility] Chloride 102 97 - 110 mmol/L [facility] CO2 25 22 - 32 mmol/L [facility] Anion gap 11 2 - 15 mmol/L [facility] BUN 10 8 - 25 mg/dL [facility] Creatinine 0.60 0.60 - 1.10 mg/dL [facility] Glucose [...] interpretive data was last revised 2017. Calcium 9.5 8.5 - 10.3 mg/dL [facility] Bilirubin, total 0.3 0.1 - 1.2 mg/dL [facility] Protein, pl 8.0 6.5 - 8.5 g/dL [facility] Albumin 4.7 3.5 - 5.0 g/dL [facility] Alk phos 53 40 - 130 Units/L [facility] ALT 19 7 - 45 Units/L [facility] AST 21 10 - 45 Units/L [facility] Blood specimen (specimen) 05/15/2019 10:17 AM CDT 05/15/2019 11:30 AM CDT us Cassius Ortega CLOSER ON LAB BLOOD ORDERABLES Final Re sult [facility] [address] [place] [address] * (ABNORMAL) Lipid panel (05/15/2019 10:17 AM CDT) Cholesterol 229(H) 30 - 199 mg/dL [facility] Comment: Interpretive Data Ages < [...] Data was last revised on 2018. Triglycerides 160(H) <=149 mg/dL [facility] Comment: Interpretive Data Ages [...] Data was last revised on 2018. HDL 45 >=40 mg/dL [facility] Comment: Interpretive Data [...] was last revised on 2018. LDL, calculated 152(H) <=129 mg/dL [facility] Comment: Interpretive Data [...] was last revised on 2018. Non-HDL Cholesterol 184 mg/dL [facility] Comment: Interpretive Data Ages [...] revised on 2018. Chol/HDL ratio 5 [facility] Blood specimen (specimen) 05/15/2019 10:17 AM CDT 05/15/2019 11:30 AM CDT Cassius Ortega CLOSER ON LAB BLOOD ORDERABLES Final Re sult Performing Organization Address [facility] de Phone Number [facility] [address] [place] [address] * TSH (05/15/2019 10:17 AM CDT) Thyroid Stimulating Hormone 0.87 0.30 - 4.20 mcIUnit/mL [facility] Blood specimen (specimen) 05/15/2019 10:17 AM CDT 05/15/2019 11:30 AM CDT Cassius Ortega CLOSER ON LAB BLOOD ORDERABLES Final Re sult Performing Organization Address [facility] de Phone Number [facility] [address] [place] [address] * Hemoglobin A1c (05/15/2019 10:17 AM CDT) Hgb A1C 5.6 4.0 - 5.6 % [facility] Estimated Average Glucose 114 mg/dL [facility] Comment: The ADA recommends reporting an estimated Average Glucose (eAG) with all Hemoglobin A1c results using the equation derived from a study of 507 normal and diabetic adults. ??Minority populations were underrepresented and children were not included. ?? (Diabetes Care 31:2823-0163, 2008). ??The eAG is not equivalent to a fasting glucose. Blood specimen (specimen) 05/15/2019 10:17 AM CDT 05/15/2019 11:30 AM CDT Cassius Ortega NP LAB BLOOD ORDERABLES Final Re sult Performing Organization Address City/State/[facility] Co de Phone Number [facility] [address] [place] [address] documented in this encounter Visit Diagnoses Diagnosis Annual physical exam Routine general medical examination at a health care facility Hypothyroidism, unspecified type Essential hypertension Unspecified essential hypertension documented in this encounter Care Teams Box Toe Flanger Stitchdowns Relationship Specialty [place] [address] [facility] [address] [address] PCP - General Family Medicine 02/21/19 documented as of this encounter
--- OUTSIDE RECORDS SUMMARY | 2024-08-09 23:34 | XMS_ITS | Encounter Summary ---
Author Organization [facility] Healthcare Address [address] [place] [address] Care Team Providers Care Generator Switchboard Operator Name Role Phone Cassius Ortega NP Primary Care Provider [phone] Reason for Referral * Diagnostic Imaging (Routine) - Closed Specialty Diagnoses / Procedures Referred By Cara alvarez Referred To Contact Diagnoses Screening mammogram, encounter for Annual physical exam Hypothyroidism, unspecified type Essential hypertension Procedures Screening Mammogram Bilateral W Cassius Palmer NP Phone: tel: fax: [address] [phone] Referral ID Status Reason Start Date Expiration Date Visits Re quested Visits Authorized [id number] Closed 05/15/2019 11/23/2020 1 1 Reason for Visit * Diagnostic Imaging (Routine) - Closed Specialty Diagnoses / Procedures Referred By Cara alvarez Referred To Contact Diagnoses Screening mammogram, encounter for Annual physical exam Hypothyroidism, unspecified type Essential hypertension Procedures Screening Mammogram Bilateral W Cassius Palmer NP Phone: tel: fax: [address] [phone] Referral ID Status Reason Start Date Expiration Date Visits Re quested Visits Authorized [id number] Closed 05/15/2019 11/23/2020 1 1 Encounter Details Date Type Department Care Team (Latest Contact Info) Description 05/15/2019 11:19 AM CDT - 05/15/2019 11:59 PM CDT Hospital Encounter [facility] Imaging and Radiology [address] [phone] [place] [address] [id number] [place] [address] [facility] [address] [address] Screening mammogram, encounter for; Annual physical exam; Hypothyroidism, unspecified type; Essential [...] on file 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 30 tablet 09/09/2017 0 citalopram (CeleXA) 40 mg tablet Take 1 tablet (40 mg total) by mouth daily 15 tablet 05/02/2019 9 levothyroxine (SYNTHROID) 150 mcg tablet Take 1 tablet (150 mcg total) by mouth early years teacher before breakfast 15 tablet 05/02/2019 9 losartan (COZAAR) 50 mg tabletIndication s:hypertension Take 50 mg by mouth every morning 3 05/09/2019 0 documented as of this encounter Discharge Disposition Disposition Code Departure Means Destination Discharge to home or self care documented in this encounter Plan of Treatment Not on file documented as of this encounter Procedures Procedure Name Priority Date/Time Associated Diagnosis Comments SCREENING MAMMOGRAM BILATERAL W CONNOR Schedule Routine, Read Routine (OP Routine) 05/15/2019 11:58 AM CDT Screening mammogram, encounter for Annual physical exam Hypothyroidism, unspecified type Essential hypertension documented in this encounter Results * Screening Mammogram Bilateral W Connor (05/15/2019 11:58 AM CDT) Anatomical Region Laterality Modality Breast Bilateral Mammography 05/16/2019 7:51 AM CDT Impressions 05/16/2019 7:55 AM CDT 1. ??BI-RADS Category 2, benign. 2. ??Annual screening mammography, monthly self breast examinations and yearly breast examination by a physician are recommended. Electronically signed by: Izabella Patton M.D. Narrative 05/16/2019 7:55 AM CDT RESULT: Examination: Bilateral screening digital mammography with CAD and tomosynthesis History: Routine screening, benign left breast biopsy. ?? Comparison: 12/22/2016, 11/28/2015, 02/16/2014. Findings: Craniocaudal and mediolateral oblique views of both breasts were obtained utilizing full field digital mammography. The breasts are predominantly fatty. ??Bilateral stable scattered fibroglandular densities are seen. ??Mild distortion of the upper part of the left breast is seen due to previous biopsy. ??There is no suspicious dominant mass, clustered microcalcification . This examination has been subjected to R2/CAD analysis. us Cassius Ortega NP IMG MAMMO PROCEDURES Final Re sult documented in this encounter Visit Diagnoses Diagnosis Screening mammogram, encounter for Annual physical exam Routine general medical examination at a health care facility Hypothyroidism, unspecified type Essential hypertension Unspecified essential hypertension documented in this encounter Care Teams Generator Switchboard Operator Relationship Specialty [place] [address] [address] [facility] [address] [address] PCP - General Family Medicine 02/21/19 documented as of this encounter
--- OUTSIDE RECORDS SUMMARY | 2024-08-09 23:34 | XMS_ITS | Encounter Summary ---
Author Organization [facility] Address [address] [facility] [[email or web address]] [address] [place] [address] Phone Care Team Providers Care Freight Breaker Name Role Phone Cassius Ortega NP Primary Care Provider [phone] Encounter Details Date Type Department Care Team (Late st Contact Info) Description 10/24/2019 Orders Only [facility] Obstetrics and Gynecology [address] [facility] 7th Floor [address] [place] [address] Kelly Irizarry MD [address] [facility] [phone] [place] [address] Social History Tobacco Use Types Packs/Day Years Used Date Smoking Tobacco: Never Smokeless Tobacco: Never Alcohol Use Standard Drinks/Week Comments Yes 0 (1 standard drink = 0.6 oz pur e alcohol) PHQ-2 Answer Date Recorded PHQ-2 Score 2 05/15/2019 Comments No Sex and Gender Information Value Date Recorded Sex Assigned at Not on file 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 She agrees and will start the norethindrone 2.5mg daily to see if she can get some relief from her dysmenorrhea. documented in this encounter Plan of Treatment Not on file documented as of this encounter Visit Diagnoses Not on filedocumented in this encounter Care Teams Freight Breaker Relationship Specialty [place] [address] [address] [address] PCP - General Family Medicine 02/21/19 documented as of this encounter
--- OUTSIDE RECORDS SUMMARY | 2024-08-09 23:34 | XMS_ITS | Encounter Summary ---
Author Organization [facility] Facility Care Team Providers Care Adoption Specialist Name Role Phone Cassius Ortega NP Primary Care Provider Encounter Details Date Type Department Care Team (Latest Contact Info) Description 10/20/2019 Travel Social History Tobacco Use Types Packs/Day Years Used Date Smoking Tobacco: Never Smokeless Tobacco: Never Alcohol Use Standard Drinks/Week Comments Yes 0 (1 standard drink = 0.6 oz pur e alcohol) PHQ-2 Answer Date Recorded PHQ-2 Score 2 05/15/2019 Comments No Sex and Gender Information Value Date Recorded Sex Assigned at Not on file 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
--- OUTSIDE RECORDS SUMMARY | 2024-08-09 23:34 | XMS_ITS | Encounter Summary ---
Author Organization [facility] Facility Care Team Providers Care Ruffler Name Role Phone Cassius Ortega NP Primary Care Provider [phone] Encounter Details Date Type Department Care Team (Latest Contact Info) Description 05/15/2019 Travel Social History Tobacco Use Types Packs/Day Years Used Date Smoking Tobacco: Never Smokeless Tobacco: Never Alcohol Use Standard Drinks/Week Comments Yes 0 (1 standard drink = 0.6 oz pur e alcohol) PHQ-2 Answer Date Recorded PHQ-2 Score 2 05/15/2019 Comments No Sex and Gender Information Value Date Recorded Sex Assigned at Not on file 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
--- OUTSIDE RECORDS SUMMARY | 2024-08-09 23:34 | XMS_ITS | Encounter Summary ---
Author Organization [facility] Healthcare Address [address] [place] [address] Care Team Providers Care Agricultural Research Technician Name Role Phone Cassius Ortega NP Primary Care Provider Encounter Details Date Type Department Care Team (Late st Contact Info) Description 12/28/2019 7:25 AM CDT Anesthesia Event [facility] Operating Room [address] [place] [id number] Janeth Soares MD [address] [place] [address] Melquiades Porter MD [address] [place] [address] Anesthesia Record Procedure Summary Procedure Name Responsible Anesthesiologist Anesthesia Start Time Anesthesia Stop Time LAPAROSCOPIC HYSTERECTOMY (Abdomen) Janeth Soares MD 12/28/19 0725 12/28/19 1038 Events Date Time Event Comment 12/28/2019 0705 0725 An Start 0730 An Start Data 0730 In Room 0738 An Induction The patient was reevaluated immediately before moderate or deep sedation use and before anesthesia induction. 0740 An Intubation 0741 Anesthesia Ready 0745 IV Placed 0747 Proc Start 0807 Incision Start 1022 Proc Fin 1026 An Extubation 1030 an stop data 1030 Out of Room 1038 Handoff to RN I completed my handoff to the receiving nurse during which we: 1. Patient identified 2. Responsible provider identified 3. Pertinent medical history reviewed 4. Procedure type and surgical course discussed 5. Intraoperative anesthetic management and any significant issues discussed 6. Expectations and concerns for postop period discussed 7. Questions solicited from receiving nurse 8. Patient disposition at the time of handoff: PACU 1038 An Stop Meds Name Total midazolam PF 2 mg lidocaine 1 % PF 100 mg fentaNYL 250 mcg propofol 150 mg rocuronium 60 mg succinylcholine 100 mg phenylephrine 100 mcg/mL 100 mcg ePHEDrine 25 mg HYDROmorphone 2 mg/mL 0.6 mg ondansetron PF (ZOFRAN) 2 mg/mL injectio n 4 mg glycopyrrolate 1 mg neostigmine injection 1 mg/mL 5 mg gentamicin (GARAMYCIN) 370 m g in sodium chloride 0.9% 37 mL (10 mg/mL) syringe 370 mg clindamycin (CLEOCIN) 900 mg /50 mL in sodium chloride 0.9% (premix) piggyback 900 mg 900 mg dexamethasone 4 mg/ml 4 mg famotidine PF 20 mg ketorolac 30 mg LR 300 mL Lactated Ringer's (LR) infusion 900 mL * Agents Name O2% N2O O2 Air Sevoflurane Inspired Sevoflurane * Blood No blood administrations on file. Lines, Drains, and Airways Type Details Placement Removal Peripheral IV Placement Date: 04/13/19; Placement Time: 917; Existing LDA Placed by: EMS; Catheter Size: 20 G; Orientation: Right; Location: Antecubital; Removal Date: 04/09/22; Removal Time: 825; Removal Reason: Removal date unknown/not present on admission 04/13/19917 by Mark Lee RN 04/09/22825 by Bree Lamb RN Peripheral IV Placement Date: 12/28/19; Placement Time: 623; Catheter Size: 20 G; Orientation: Left; Location: Hand; Site Prep: Chlorhexidine; Inserted by: Helen Yeboah RN; Insertion Attempts: 1; Patient Tolerance: Tolerated well; Removal Date: 12/28/19; Removal Time: 181; Removal Reason: Removed by patient 12/28/19623 by Helen Yeboah RN 12/28/19 1815 by Judy Snowden NP ETT Placement Date: 12/28/19; Placement Time: 0740 (created via procedure documentation); Mask Ventilation: 0; Technique: Direct laryngoscopy; Type: ETT - single; Single Lumen Tube Size: 7 mm; Cuffed: Yes; Blade Size: 2; Location: Oral; Grade View: Grade IIa; Insertion Attempts: 1; Placement Verification: Auscultation, Capnometry; Removal Date: 12/28/19; Removal Time: 1026 12/28/19 0740 by Micaela Murguia CRNA 12/28/19 1026 by Micaela Murguia CRNA Peripheral IV Placement Date: 12/28/19; Placement Time: 0745 (created via procedure documentation); Catheter Size: 18 G; Orientation: Right; Location: Hand; Site Prep: Alcohol; Insertion Attempts: 1; Removal Date: 12/29/19; Removal Time: 1208; Removal Reason: Per protocol 12/28/19 0745 by Micaela Murguia CRNA 12/29/19 1208 by Shantel Lin RN Urethral Catheter Placement Date: 12/28/19; Placement Time: 0755; Inserted by: Clive Andrade MD ; Type: Non-latex, Straight-tip; Size: 16 Fr.; Balloon Size: 10 mL; Urine Returned: Yes; Removal Date: 12/28/19; Removal Time: 1021 12/28/19 0755 by Arian Vizcaino RN 12/28/19 1021 by Arian Vizcaino, ELTON RETIRED Surgical Site 12/28/19; 0923; Abdomen; 07/04/24 (Retired LDA, Removed/Completed by Crisp[employer] with LDA Utility); 1213 (Retired LDA, Removed/Completed by [employer] with LDA Utility) 12/28/19 0923 by Arian Vizcaino, ELTON 07/04/24 1213 by Discharge Provider, Automatic RETIRED Surgical Site 12/28/19; 0923; Perineum; 04/09/22; 0828; Removal date unknown/not present on admission 12/28/19 0923 by Arian Vizcaino RN 04/09/22 0828 by Bree Lamb, RN documented in this encounter Social History Tobacco [...] on file 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 Gender Identity Not on file Sexual Orientation Not on file 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 documented as of this encounter OR Notes * Anesthesia Postprocedure Evaluation - Janeth Soares MD - 12/28/2019 11:31 AM CDT Patient: Олег Paz Procedure Summary Date: 12/28/19 Room / Location: [facility] OR POD 1 ROOM 321 / [facility] OR POD 1 Anesthesia Start: 724 Anesthesia Stop: 1038 Procedures: LAPAROSCOPIC HYSTERECTOMY (N/A Abdomen) CYSTOSCOPY (N/A Urethra) SALPINGO-OOPHORECTOMY (Bilateral Abdomen) Diagnosis: Abnormal uterine bleeding Urinary frequency (Abnormal uterine bleeding [N93.9]) (Urinary frequency [R35.0]) Surgeon: Kelly Irizarry MD Responsible Provider: Janeth Soares MD Anesthesia Type: general ASA Status: 3 Anesthesia Type: general Last vitals BP 109/69 Pulse 85 Temp 36.4 ??C (97.5 ??F) Resp 12 SpO2 (!) 88% Anesthesia Post Evaluation Patient location during evaluation: PACU Patient participation: complete - patient participated Level of consciousness: fully awake Pain score: 4 Pain management: satisfactory to patient Airway patency: adequate Evidence of recall: no Anesthetic complications: no Cardiovascular status: acceptable, hemodynamically stable and blood pressure returned to baseline Respiratory status: acceptable and room air Hydration status: acceptable Pt is: normothermic Nausea/Vomiting status: none Comments: Олег Paz has been evaluated and is comfortable and ready for discharge from the PACU. * Anesthesia Procedure Notes - Micaela Murguia CRNA - 12/28/2019 8:05 AM CDTAssociated Order(s): Peripheral IV Catheter Peripheral IV Catheter Patient location: OR Start time: 12/28/2019 7:45 AM End time: 12/28/2019 7:45 AM Staff: Placed by: TRANSITION MANAGER: Micaela Murguia CRNA Preprocedure prep: Prep solution: alcohol PPE: gloves and provider hat/mask PIV line: Laterality: right Site: hand Catheter size: 18 g Technique: direct visualization Procedure details: good blood return and occlusive dressing applied Number of attempts: 1 Assessment: Events: patient tolerated procedure well with no complications * Anesthesia Procedure Notes - Micaela Murguia CRNA - 12/28/2019 8:02 AM CDTAssociated Order(s): Airway Airway Patient location: OR Urgency: elective Date/time: 12/28/2019 7:40 AM Indications for airway management: anesthesia Difficult airway: no Staff: Supervising provider: Janeth Soares MD Placed by: TRANSITION MANAGER: Micaela Murguia CRNA Emergent airway documentation: Risks and benefits [...] used for successful ETT placement: direct laryngoscopy Devices/Methods used in placement: intubating stylet Insertion site: oral Blade size: 2 Cormack-Lehane (direct): grade IIa - partial view of glottis Cuff volume: 8 mL Cuff inflated with: air ETT to teeth: 21 cm Placement verified by: auscultation and CO2 detection Airway secured with: silk tape Number of attempts: 1 * Anesthesia Preprocedure Evaluation - Janeth Soares MD - 12/26/2019 3:00 PM CDT Images from the original note were not included. [facility] Preoperative [facility] Planning Preoperative Evaluation Record Evaluation type/location: CPAP [facility] Planned procedure site: [facility] PVT OR (Pod 1) Date: 12/26/19 Anesthesia Evaluation Олег Paz is a 44 y.o. female Procedure(s): LAPAROSCOPIC HYSTERECTOMY CYSTOSCOPY SALPINGO-OOPHORECTOMY Pre-Op Diagnosis Codes: * Abnormal uterine bleeding [N93.9] * Urinary frequency [R35.0] HISTORY HPI Олег Paz is a 44 y.o. female who is being evaluated prior to undergoing laparoscopic hysterectomy, salpingo-oophorectomy and cystoscopy with Dr. Irizarry. Past Medical History Information obtained from: patient and chart. Neurological + Psychiatric history - anxiety and depression Pertinent negatives: seizures; neuromuscular disease; CVA/stroke; TIA; CEA; ICA stenosis; dementia/mild cognitive impairment and carotid artery stent Cardiovascular + Hypertension Hypertension year diagnosed: 2018. Typical systolic BP - 120 Typical diastolic BP - 70 + Hyperlipidemia (not currently on statin therapy) Pertinent negatives: CAD ; MD ; CABG ; valvular heart disease; valve replacement; atrial fibrillation; arrhythmia; pacemaker/ICD; PVD; DVT/PE; negative for CHF; drug-eluting stent(s); bare metal stent(s) and coronary angioplasty Comments: Follows with Dr. King TERRELL 06/2019 Respiratory wheezing negative Pertinent negatives: COPD; asthma; sleep apnea (SHREYA); pulmonary hypertension; no O2 use outside thehospital and non-smoker Hepatic / Heme + History of anemia (on oral supplement ) - iron deficiency Pertinent negatives: liver disease; history of thrombocytopenia and history of Nishi positive Gastrointestinal + GERD - PRN medication use only. Asymptomatic. Pertinent negatives: hiatal hernia Renal / Pertinent negatives: renal disease; dialysis and nephrolithiasis Musculoskeletal/Pain Pertinent negatives: chronic pain; chronic opioid use and previous treatment for opioid use disorder Endocrine / Other + Thyroid disease - hypothyroidism + Obesity (BMI >30) (BMI 35.9) Pertinent negatives: diabetes mellitus; cancer history; rheumatological disease and transplanted organ Functional Capacity Functional capacity: 4-6 METs Comments: Can climb 2 flights of stairs without CP or SOB at moderate pace Review of Systems + heavy menses (history of, currently on progesterone) + vision loss (wears corrective lenses) Pertinent negatives: productive cough; wheezing; SOB; recent cold/flu; fever; chest pain; palpitations; orthopnea; pedal edema; PND; Sickle Cell disease/trait; previous transfusion; transfusion reaction; melena/hematochezia; easy bruising; bleeding problems; syncope; dizziness; muscle weakness; chronic pain; numbness/tingling; hard of hearing; heartburn; nausea; dysphagia; diarrhea; dentures/partials; chipped/loose teeth; abdominal pain; diaphoresis and no unexpected weight change PAT Summary and Plans Cardiac risk classification of planned procedure: intermediate cardiac risk. Preoperative assessment status: complete pending laboratory results. Additional comments: Олег Paz is a 44 y.o. female who is being evaluated prior to undergoing an intermediate cardiac risk surgery. Revised Cardiac Risk Index factors are (none) for a total RCRI of 0 out of 6. Functional capacity is 4-6 METs. Obstructive sleep apnea (SHREYA) screening status is STOP-Bang=3 suggesting moderate risk for SHREYA, bicarbonate value pending. The patient is at elevated risk for obstructive sleep apnea (SHREYA) per STOP-BANG screening questionnaire results. Patient informed of the possibility that they have undiagnosed SHREYA, which may increasetheir risk for perioperative respiratory events. Patient also informed of the possible long-term health problems associated with SHREYA. Because we do not feel that preoperative SHREYA testing is likely tooutweigh the downsides of delaying surgery, we have recommended that the patient talk to their primary doctor or other clinician after surgery about getting tested for SHREYA. Blood bank needs for day of procedure: Type and Screen only Pending labs/tests include: CBC BMP T&S Patient with No known exposure to COVID19 and no concerning symptoms of COVID19. Plan for pre-procedure COVID19 testing: Surgery date within 3 days. Pre- procedure COVID19 testing performed at CPAP. Result pending. Preoperative evaluation performed by Shonna Knight NP on 12/26/19 at 3:03 PM. I have interviewed and examined the patient and agree with this Pre-Procedural Assessment performedby the above primary evaluating ONLINE TUTOR, who is currently in the CPAP ONLINE TUTOR Orientation interval. Signed by: Kelly Terrazas NP on 12/26/19 at 3:30 PM . Follow up note Labs reviewed and are without significant findings. Surgeon's office reviews laboratory results independently. CPAP process complete. Follow-up completed by: Lola Bentley NP on 12/27/19 at 7:58 AM Patient Active Problem List Diagnosis ??? Adiposity [...] ??? TUBAL LIGATION 2009 Bilateral tubal ligation OB History 3 Para 2 Term 2 AB 1 Living 2 SAB 1 TAB Ectopic Multiple Live Births 2 Allergies Allergen Reactions ??? Cefazolin Blisters and Redness Med List Status: Provider Complete Set By: Isabel Espitia RN at 12/26/2019 2:49 PM Taking? Last Dose Start Date End Date Provider citalopram (CeleXA) 40 mg tablet 05/17/19 -- Cassius Ortega NP Take 1 tablet (40 mg total) by mouth daily Patient taking differently: Take 40 mg by mouth every morning ferrous sulfate (iron) 325 mg (65 mg of elemental iron) tablet -- -- Historical Provider, levothyroxine (SYNTHROID) 150 mcg tablet 05/17/19 -- Cassius Ortega NP Take 1 tablet (150 mcg total) by mouth medical doctor before breakfast Patient taking differently: Take 150 mcg by mouth medical doctor before breakfast losartan (COZAAR) 50 mg tablet 05/09/19 -- Historical Provider, norethindrone (AYGESTIN) 5 mg tablet 11/30/19 11/29/20 Klely Irizarry MD Take 2 tablets (10 mg total) by mouth daily Patient taking differently: Take 10 mg by mouth every morning Current Outpatient Medications: ??? citalopram (CeleXA) 40 mg tablet ??? ferrous sulfate (iron) 325 mg (65 mg of elemental iron) tablet ??? levothyroxine (SYNTHROID) 150 mcg tablet ??? losartan (COZAAR) 50 mg tablet ??? norethindrone (AYGESTIN) 5 mg tablet Social History Tobacco Use Smoking Status Never Smoker Smokeless Tobacco Never Used Substance and Sexual Activity Alcohol Use Yes Comment: socially Substance and Sexual Activity Drug Use No [...] Hyperlipidemia; ??? Skin cancer Sister Cancer, skin; PAT Physical Exam Airway Exam: Mallampati: II Cervical ROM: FROM TM distance: 3 Cardiovascular Exam: Rate: regular Rhythm: regular Negative for Murmur No extra heart sounds appreciated Negative for peripheral edema Pulmonary Exam: LCTA negative EENT Exam: trachea midline Dental Exam: Appears intact Skin Exam: Skin is warm and dry. Abdominal exam: Abdomen is soft. Bowel sounds are present. Current state: Patient's current state is cooperative. Vitals: 12/26/19 1449 12/26/19 1450 BP: 118/67 123/68 Pulse: 76 Resp: 18 SpO2: 98% Relevant diagnostics: ECG(s): 04/13/19 Sinus rhythm 72 bpm Possible left atrial enlargement Possible right ventricular conduction delay Echocardiogram(s): 04/13/19 Conclusions: Normal left ventricular size. Normal left ventricular systolic function with no focal wall motion abnormalities. Normal left ventricular diastolic function. Ejection fraction is measured at 71 %. Normal Doppler with normal valvular structure and function. Stress test(s): N/A Cardiac catheterization(s): N/A PFT(s): N/A Vascular studies: N/A Other: N/A PT: No results found for requested labs [...] within last 720 hours. STOP-Bang Total Score: 3 Johann index score: 100 DOS Physical Exam Medical history, medications, and allergies reviewed. Attestation: I endorse the findings of the anesthesia pre-evaluation assessment dated: 12/26/2019. Airway Exam: Mallampati: III Cervical ROM: FROM TM distance: 3.5 Jaw ROM: full Cardiovascular Exam: Rate: regular Rhythm: regular Negative for Murmur Pulmonary Exam: LCTA, bilat Rhonchi negative Wheezing negative Rales negative EENT Exam: trachea midline Dental Exam: Appears intact Skin Exam: Skin is warm. Abdominal Exam: Abdomen is soft. Current state: Patient's current state is cooperative and interactive. Anesthesia Plan ASA 3 My patient is approved for the Anesthesia Controlled Medication protocol when under care of a TRANSITION MANAGER Planned anesthesia: General Team communication plan: oral ET tube Induction: Induction: intravenous. Postoperative Plan: Postoperative administration opioids intended. Informed Consent: Discussed plan with TRANSITION MANAGER. Anesthesia plan and risks discussed with patient. [...] Procedure Name Priority Date/Time Associated Diagnosis Comments KS AN PROCEDURE PLACEHOLDER Routine 12/28/2019 8:05 AM CDT KS AN PROCEDURE PLACEHOLDER Routine 12/28/2019 8:02 AM CDT KS AN ELECTIVE ENDOTRACHEAL AIRWAY Routine 12/28/2019 8:02 AM CDT documented in this encounter Results * KS AN PROCEDURE PLACEHOLDER (12/28/2019 8:05 AM CDT) Micaela Pelayo CRNA - 12/28/2019 8:05 AM CDT Micaela Murguia CRNA ? 12/28/2019 ??8:06 AM Peripheral IV Catheter Patient location: OR Start time: 12/28/2019 7:45 AM End time: 12/28/2019 7:45 AM Staff: Placed by: TRANSITION MANAGER: Micaela Murguia CRNA Preprocedure prep: Prep solution: alcohol PPE: gloves and provider hat/mask PIV line: Laterality: right Site: hand Catheter size: 18 g Technique: direct visualization Procedure details: good blood return and occlusive dressing applied Number of attempts: 1 Assessment: Events: patient tolerated procedure well with no complications Janeth Soares MD ANESTHESIA ORDERABLE S Final Result * KS AN ELECTIVE ENDOTRACHEAL AIRWAY, KS AN PROCEDURE PLACEHOLDER (12/28/2019 8:02 AM CDT) Micaela Pelayo CRNA - 12/28/2019 8:02 AM CDT Micaela Murguia CRNA ? 12/28/2019 ??8:04 AM Airway Patient location: OR Urgency: elective Date/time: 12/28/2019 7:40 AM Indications for airway management: anesthesia Difficult airway: no Staff: Supervising provider: Janeth Soares MD Placed by: TRANSITION MANAGER: Micaela Murguia CRNA Emergent airway documentation: Risks and benefits [...] used for successful ETT placement: direct laryngoscopy Devices/Methods used in placement: intubating stylet Insertion site: oral Blade size: 2 Cormack-Lehane (direct): grade IIa - partial view of glottis Cuff volume: 8 mL Cuff inflated with: air ETT to teeth: 21 cm Placement verified by: auscultation and CO2 detection Airway secured with: silk tape Number of attempts: 1 Janeth Soares MD ANESTHESIA ORDERABLE S Final Result documented in this encounter Visit Diagnoses Not on filedocumented in this encounter Administered Medications Inactive Administered Medications - up to 3 most recent administrations Medication Order MAR Action Action Date Dose Rate Site clindamycin (CLEOCIN) 900 mg/50 mL in sodium chloride 0.9% (premix) piggyback 900 mg 900 mg, intravenous, at 100 mL/hr, Administer over 30 Minutes, Once, On Jacquie 12/28/19 at 0630, For 1 dose, Pre-Op, Administer within in 60 minutes of incision., Indications: Prophylaxis, SurgicalIndications:Prophylaxis, Surgical Given 12/28/2019 7:50 AM CDT 900 mg dexAMETHasone (DECADRON) 4 mg/mL injection Administer over 2 Minutes, As needed, Starting on Jacquie 12/28/19 at 0830, Anesthesia Intra-op Given 12/28/2019 8:30 AM CDT 4 mg ePHEDrine injection intravenous, Administer over 5 Minutes, As needed, Starting on Jacquie 12/28/19 at 0749, Anesthesia Intra-op Given 12/28/2019 7:58 AM CDT 5 mg Given 12/28/2019 7:53 AM CDT 10 mg Given 12/28/2019 7:49 AM CDT 10 mg famotidine (PEPCID) injection Administer over 2 Minutes, As needed, Starting on Jacquie 12/28/19 at 0830, Anesthesia Intra-op Given 12/28/2019 8:30 AM CDT 20 mg fentaNYL (SUBLIMAZE) preservative free injection intravenous, As needed, Starting on Jacquie 12/28/19 at 0745, Anesthesia Intra-op Given 12/28/2019 7:45 AM CDT 100 mcg Given 12/28/2019 7:38 AM CDT 150 mcg gentamicin (GARAMYCIN) 370 mg in sodium chloride 0.9% 37 mL (10 mg/mL) syringe 370 mg (rounded from 367 mg = 5 mg/kg ? 73.4 kg Adjusted weight), intravenous, Administer over 30 Minutes, Once, On Jacquie 12/28/19 at 0630, For 1 dose, Pre-Op, Administer within 60 minutes of incision., Indications: Prophylaxis, SurgicalIndications:Prophylaxis, Surgical New Bag 12/28/2019 7:48 AM CDT 370 mg glycopyrrolate (ROBINUL) injection intravenous, Administer over 1 Minutes, As needed, Starting on Jacquie 12/28/19 at 1020, Anesthesia Intra-op Given 12/28/2019 10:20 AM CDT 1 mg HYDROmorphone (DILAUDID) injection intravenous, Administer over 2 Minutes, As needed, Starting on Jacquie 12/28/19 at 1034, Anesthesia Intra-op Given 12/28/2019 10:34 AM CDT 0.6 mg ketorolac (TORADOL) injection As needed, Starting on Jacquie 12/28/19 at 1023, Anesthesia Intra-op Given 12/28/2019 10:23 AM CDT 30 mg Lactated Ringer's (LR) infusion Continuous PRN, Starting on Jacquie 12/28/19 at 0745, Anesthesia Intra-op New Bag 12/28/2019 7:45 AM CDT lidocaine PF (XYLOCAINE) 10 mg/mL (1 %) preservative free injection As needed, Starting on Jacquie 12/28/19 at 0738, Anesthesia Intra-op Given 12/28/2019 7:38 AM CDT 100 mg midazolam (VERSED) preservative free injection intravenous, Administer over 2 Minutes, As needed, Starting on Jacquie 12/28/19 at 0725, Anesthesia Intra-op Given 12/28/2019 7:25 AM CDT 2 mg neostigmine (PROSTIGMIN) injection intravenous, Administer over 3 Minutes, As needed, Starting on Jacquie 12/28/19 at 1020, Anesthesia Intra-op Given 12/28/2019 10:20 AM CDT 5 mg ondansetron (ZOFRAN) injection intravenous, Administer over 2 Minutes, As needed, Starting on Jacquie 12/28/19 at 1023, Anesthesia Intra-op Given 12/28/2019 10:23 AM CDT 4 mg phenylephrine (IVAN-SYNEPHRINE) 0.5 mg/5 mL (100 mcg/mL) in sodium chloride 0.9% (premix) intravenous, As needed, Starting on Jacquie 12/28/19 at 0805, Anesthesia Intra-op Given 12/28/2019 8:05 AM CDT 100 mcg propofoL (DIPRIVAN) IV intravenous, As needed, Starting on Jacquie 12/28/19 at 0738, Anesthesia Intra-op Given 12/28/2019 7:38 AM CDT 150 mg rocuronium (ZEMURON) injection intravenous, As needed, Starting on Jacquie 12/28/19 at 0745, Anesthesia Intra-op Given 12/28/2019 9:33 AM CDT 20 mg Given 12/28/2019 8:26 AM CDT 20 mg Given 12/28/2019 7:45 AM CDT 20 mg succinylcholine (ANECTINE) injection intravenous, As needed, Starting on Jacquie 12/28/19 at 0739, Anesthesia Intra-op Given 12/28/2019 7:39 AM CDT 100 mg documented in this encounter Care Teams Agricultural Research Technician Relationship Specialty Start [place] [address] [address] [address] PCP - General Family Medicine 02/21/19 documented as of this encounter
--- OUTSIDE RECORDS SUMMARY | 2024-08-09 23:34 | XMS_ITS | Encounter Summary ---
Author Organization [facility] Address [address] [facility] [address] [place] [address] Phone Care Team Providers Care Yard Stocker Name Role Phone Cassius Ortega NP Primary Care Provider [phone] Reason for Visit * Reason Onset Date Comments Med Refill 09/22/2019 Encounter Details Date Type Department Care Team (Late st Contact Info) Description 09/22/2019 Telephone [facility] Obstetrics and Gynecology [facility] Out[facility] Health 7th Floor [address] [place] [address] Kelly Irizarry MD [facility] [phone] [place] [address] Med Refill Social History Tobacco Use Types Packs/Day Years Used Date Smoking Tobacco: Never Smokeless Tobacco: Never Alcohol Use Standard Drinks/Week Comments Yes 0 (1 standard drink = 0.6 oz pur e alcohol) PHQ-2 Answer Date Recorded PHQ-2 Score 2 05/15/2019 Comments No Sex and Gender Information Value Date Recorded Sex Assigned at Not on file Legal Sex Female 1:09 AM BLEACH CHLORINATOR Gender Identity Not on file Sexual Orientation Not on file 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 Thanks! CH CHLORINATOR * Telephone Encounter - Bethany Holder - 09/22/2019 9:00 AM CST Please clarify norethindrone dose and instructions. Rx has two different direction on it. Thank you CH CHLORINATOR documented in this encounter Plan of Treatment Not on file documented as of this encounter Visit Diagnoses Not on filedocumented in this encounter Care Teams Yard Stocker Relationship Specialty [place] [address] [address] [facility] [address] [address] PCP - General Family Medicine 02/21/19 documented as of this encounter
--- OUTSIDE RECORDS SUMMARY | 2024-08-09 23:34 | XMS_ITS | Encounter Summary ---
Author Organization [facility] Address [address] [facility] [address] [place] [address] Phone Care Team Providers Care Solid Glass Rod Dowel Machine Operator Name Role Phone Cassius Ortega NP Primary Care Provider [phone] Reason for Referral * Diagnostic Imaging (Routine) - Closed Specialty Diagnoses / Procedures Referred By Cara alvarez Referred To Contact Diagnoses Abnormal uterine bleeding (AUB) Bulky or enlarged uterus Procedures US Pelvis Complete Christin Morrison NP [address] [facility] [phone] [place] [address] Phone: tel: fax: [facility] (All Locations) Referral ID Status Reason Start Date Expiration Date Visits Re quested Visits Authorized [id number] Closed 09/01/2019 03/12/2021 1 1 CARE PHYSICAL THERAPIST Reason for Visit * Reason Comments irregular cycles Encounter Details Date Type Department Care Team (Late st Contact Info) Description 09/01/2019 9:00 AM HOME CARE PHYSICAL THERAPIST Office Visit [facility] Obstetrics and Gynecology [address] [place] [address] Health 7th Floor [address] [place] [address] Christin Morrison NP [address] [facility] [phone] [place] [address] Abnormal uterine bleeding (AUB) (Primary Dx); Bulky or enlarged uterus; Vaginal odor Social History Tobacco Use Types Packs/Day Years Used Date Smoking Tobacco: Never Smokeless Tobacco: Never Alcohol Use Standard Drinks/Week Comments Yes 0 (1 standard drink = 0.6 oz pur e alcohol) PHQ-2 Answer Date Recorded PHQ-2 Score 2 05/15/2019 Comments No Sex and Gender Information Value Date Recorded Sex Assigned at Not on file Legal Sex Female 1:09 AM HOME CARE PHYSICAL THERAPIST Gender Identity Not on file Sexual Orientation Not on file 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 documented as of this encounter Last Filed Vital Signs Vital Sign Reading Time Taken Comments Blood Pressure 124/80 09/01/2019 9:11 AM HOME CARE PHYSICAL THERAPIST Pulse - - Temperature - - Respiratory Rate - - Oxygen Saturation - - Inhaled Oxygen Concentration - - Weight 96.1 kg (211 lb 12.8 oz) 09/01/2019 9:11 AM HOME CARE PHYSICAL THERAPIST Height 165.1 cm (5' 5 ) 09/01/2019 9:11 AM HOME CARE PHYSICAL THERAPIST Body Mass Index 35.25 09/01/2019 9:11 AM HOME CARE PHYSICAL THERAPIST documented in this encounter Ordered Prescriptions Prescription Sig Dispense Quantity Refills Last Filled Start Date End Date metroNIDAZOLE (FLAGYL) 500 mg tablet Take 1 tablet (500 mg total) by mouth 2 (two) times a day for 7 days 14 tablet 09/01/2019 09/08/2019 documented in this encounter Progress Notes * Christin Morrison NP - 09/01/2019 9:00 AM CST Problem Visit SUBJECTIVE HPI: Олег Paz is a 44 y.o. 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 Previous pt of Dr Irizarry. Has been having heavy menses for the last year. However she didhave 2 menses in July. Her monthly menses last about 7 days. 3/7 are heavy using at least 10 ormore pads those heavy days. Her GP physician did a pap on her 3 years ago and this was normal. Hasn't seen a Sales And Marketing Manager in at least 5 years. Last saw [...] of months when she ovulates has excessive waterydischarge that only last a few days during ovulation. No abnl vag discharge any other time. Problem List Unprioritized Carpal tunnel syndrome Arthralgia of shoulder Benign neoplasm of skin of face Encounter for cosmetic surgery Spinal stenosis of lumbar region Adiposity Hyperlipidemia Hypothyroidism Impaired fasting glucose depression Vitamin D deficiency Mammogram abnormal Right upper quadrant abdominal pain Anxiety BMI 35.0-35.9,adult Screening for malignant neoplasm of cervix Screening mammogram, encounter for Well female exam with routine gynecological exam Bloating Arthritis of right acromioclavicular joint Biceps tendinitis of right upper extremity Impingement syndrome of right shoulder Incomplete tear of right rotator cuff Hypertension OB History Para Term AB Living 3 2 2 1 2 SAB TAB Ectopic Multiple Live Births 1 2 # Outcome Date GA Lbr Chad/2nd Weight Sex Delivery Anes PTL Lv 3 Term 2008 CS-LTranv NII 2 Term 2007 CS-LTranv NII 1 SAB 2004 Past Medical History: Diagnosis Date ??? HX OTHER MEDICAL 2003 +PPD ??? HX OTHER MEDICAL herniated disc l4-5 ??? HX OTHER MEDICAL 2006 Caesarean section; Comments: [facility] 04/06/2014 - ??? HX OTHER MEDICAL 2008 C section; Comments: [facility] 04/06/2014 - ??? HX OTHER MEDICAL 05/2013 l4/l5 dissection; Comments: [facility] 04/06/2014 - ??? HX OTHER MEDICAL 2008 Tubaligation; Comments: [facility] 04/06/2014 - ??? 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 HX OTHER MEDICAL asymmetrical breast mass ??? Hypertension ??? Thyroid disease Past Surgical History: Procedure Laterality Date ??? BREAST BIOPSY NEG LEFT ??? OTHER SURGICAL HISTORY 2002 +PPD: Drug therapy ??? OTHER SURGICAL HISTORY 2005 D&C ??? OTHER SURGICAL HISTORY 2012 herniated disc l4-5: lumbar spine surgery Dr. Burkett ??? OTHER SURGICAL HISTORY asymmetrical breast mass: planning stereotatic bx ??? TUBAL LIGATION 2009 Bilateral tubal ligation Social History Socioeconomic History ??? Marital status: Spouse name: Not on file ??? Number of children: 2 ??? Years of education: Not on file ??? Highest education level: Not on file Occupational History ??? 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 Financial resource strain: Not on file ??? Food insecurity: Worry: Not on file Inability: Not on file ??? Transportation needs: Medical: Not on file Non-medical: Not on file Tobacco Use ??? Smoking status: Never Smoker ??? Smokeless tobacco: Never Used Substance and Sexual Activity ??? Alcohol use: Yes ??? Drug use: No ??? Sexual activity: Yes Partners: Male Lifestyle ??? Physical activity: Days per week: Not on file Minutes per session: Not on file ??? Stress: Not on file Relationships ??? Social connections: Talks on phone: Not on file Gets together: Not on file Attends sabianism service: Not on file Active member of club or organization: Not on file Attends meetings of clubs or organizations: Not on file Relationship status: Not on file ??? Intimate partner violence: Fear of current or ex partner: Not on file Emotionally abused: Not on file Physically abused: Not on file Forced sexual activity: Not on file Other Topics Concern ??? Not on file Social History Narrative ??? Not on file Family History Problem Relation [...] Hyperlipidemia; ??? Skin cancer Sister Cancer, skin; Allergies Allergen Reactions ??? Cefazolin Blisters and Redness Reaction: redness, blister, Current Outpatient Medications: ??? citalopram (CeleXA) 40 mg tablet, Take 1 tablet (40 mg total) by mouth daily, Disp: 90 tablet, Rfl: 3 ??? levothyroxine (SYNTHROID) 150 mcg tablet, Take 1 tablet (150 mcg total) by mouth fly tier before breakfast, Disp: 90 tablet, Rfl: 3 ??? losartan (COZAAR) 50 mg tablet, Take 50 mg by mouth daily, Disp: , Rfl: 3 ??? metroNIDAZOLE (FLAGYL) 500 mg tablet, Take 1 tablet (500 mg total) by mouth 2 (two) times a dayfor 7 days, Disp: 14 tablet, Rfl: 0 Review of Systems OBJECTIVE Vitals: Arrival Vitals [09/01/19 0911] Temp Pulse Resp BP 124/80 SpO2 Temp src Heart Rate Source Patient Position BP Location FiO2 (%) Physical Exam Genitourinary: General: Normal vulva. Exam position: Supine. Labia: Right: No rash or lesion. Left: No rash or lesion. Vagina: Normal. No vaginal discharge or erythema. Cervix: Normal. Uterus: Not enlarged (enlarged 16-18 week size/bulky), not fixed and not tender. Adnexa: Right adnexa normal and left adnexa normal. Right: No mass, tenderness or fullness. Left: No mass, tenderness or fullness. ASSESSMENT / PLAN Олег Paz is a 44 y.o. female 1. AUB 2. Significantly enlarged/bulky uterus 3. STD testing w/ Pap today 4. After exam pt feels like she has an odor. No appreciate discharge on exam 5. --r/o BV Plan: Pap w/cotesting collected with std DNA Labs: CBC ordered Pelvic us ordered- Rx Flagyl 500mg po bid #14 F/u appt with Dr Irizarry in 3-4 weeks to discuss results/management Christin Morrison NP 09/01/2019 CARE PHYSICAL THERAPIST documented in this encounter Plan of Treatment Not on file documented as of this encounter Results * US Pelvis Complete (09/18/2019 2:58 PM HOME CARE PHYSICAL THERAPIST) Cul de Sac No free fluid visualized [facility] Endometrial Thickness 7.9 mm&millim eters [facility] Anatomical Region Laterality Modality Pelvis N/A Ultrasound 09/18/2019 3:00 PM HOME CARE PHYSICAL THERAPIST Christin Morrison NP IMG US PROCEDURES Final Re sult * (ABNORMAL) CBC with auto differential (09/01/2019 10:03 AM HOME CARE PHYSICAL THERAPIST) WBC 7.3 3.8 - 9.9 K/cumm [facility] Hgb 10.9(L) 11.9 - 15.5 g/dL [facility] Hct 33.1(L) 35.6 - 45.5 % [facility] Plt 306 150 - 400 K/cumm [facility] MPV 9.0(L) 9.1 - 12.3 fL [facility] RBC 3.89(L) 3.90 - 5.20 M/cumm [facility] MCV 85.1 81.3 - 96.4 fL [facility] MCH 28.0 27.1 - 33.3 pg [facility] MCHC 32.9 32.3 - 35.7 g/dL [facility] RDW CV 14.3 11.1 - 14.9 % [facility] RDW SD 44.1 35.7 - 48.1 fL [facility] NRBC abs 0.00 0.00 - 0.01 K/cumm [facility] Blood specimen (specimen) 09/01/2019 10:03 AM HOME CARE PHYSICAL THERAPIST 09/01/2019 10:21 AM HOME CARE PHYSICAL THERAPIST Christin Morrison NP LAB BLOOD ORDERABLES Final Result [facility] Department [place] [address] documented in this encounter Visit Diagnoses Diagnosis Abnormal uterine bleeding (AUB)- Primary Bulky or enlarged uterus Hypertrophy of uterus Vaginal odor Unspecified symptom associated with female genital organs documented in this encounter Discontinued Medications Medication Sig Discontinue Reason Start Date End Da te ALPRAZolam (XANAX) 0.5 mg tablet Take 1 tablet (0.5 mg total) by mouth 3 (three) times a day as needed for anxiety. Other 09/09/2017 09/01/2019 documented as of this encounter Care Teams Solid Glass Rod Dowel Machine Operator Relationship Specialty Start [place] [address] [address] [facility] [address] [address] PCP - General Family Medicine 02/21/19 documented as of this encounter
--- OUTSIDE RECORDS SUMMARY | 2024-08-09 23:34 | XMS_ITS | Encounter Summary ---
Author Organization [facility] Address [address] [facility] [address] [place] [address] Phone Care Team Providers Care Veneer Jointer Helper Name Role Phone Cassius Ortega NP Primary Care Provider [phone] Encounter Details Date Type Department Care Team (Late st Contact Info) Description 10/18/2019 Orders Only [facility] Obstetrics and Gynecology [address] [facility] Outpatient Health 7th Floor [address] [place] [address] Kelly Irizarry MD [address] [facility] [phone] [place] [address] Social History Tobacco Use Types Packs/Day Years Used Date Smoking Tobacco: Never Smokeless Tobacco: Never Alcohol Use Standard Drinks/Week Comments Yes 0 (1 standard drink = 0.6 oz pur e alcohol) PHQ-2 Answer Date Recorded PHQ-2 Score 2 05/15/2019 Comments No Sex and Gender Information Value Date Recorded Sex Assigned at Not on file Legal Sex Female 1:09 AM SOCIAL MEDIA COMMUNITY MANAGER Gender Identity Not on file Sexual [...] AM CDT documented as of this encounter Ordered Prescriptions Prescription Sig Dispense Quantity Refills Last Filled Start Date End Date ondansetron (ZOFRAN) 4 mg tablet Take 1 tablet (4 mg total) by mouth 2 (two) times a day as needed for nausea 20 tablet 2 10/18/2019 11/17/2019 documented in this encounter Progress Notes * Kelly Irizarry MD - 10/18/2019 4:23 PM CDT documented in this encounter Plan of Treatment Not on file documented as of this encounter Visit Diagnoses Not on filedocumented in this encounter Care Teams Veneer Jointer Helper Relationship Specialty Start [place] [address] [facility] [address] [address] PCP - General Family Medicine 02/21/19 documented as of this encounter
--- OUTSIDE RECORDS SUMMARY | 2024-08-09 23:34 | XMS_ITS | Encounter Summary ---
Author Organization [facility] Address [address] [facility] [address] [place] [address] Care Team Providers Care Community Service Representative Name Role Phone Cassius Ortega NP Primary Care Provider Encounter Details Date Type Department Care Team (Late st Contact Info) Description 11/07/2019 Orders Only [facility] [address] [facility] [address] [place] [address] [place]ius [place] [id number] [place] [address] 2 [facility] [address] [place] [address] Social History Tobacco Use Types Packs/Day Years Used Date Smoking Tobacco: Never Smokeless Tobacco: Never Alcohol Use Standard Drinks/Week Comments Yes 0 (1 standard drink = 0.6 oz pur e alcohol) PHQ-2 Answer Date Recorded PHQ-2 Score 2 05/15/2019 Comments No Sex and Gender Information Value Date Recorded Sex Assigned at Not on file Legal Sex Female 1:09 AM POLICE SERGEANT Gender Identity Not on file Sexual Orientation [...] Refills Last Filled Start Date End Date tiZANidine (ZANAFLEX) 4 mg tablet Take 1 tablet (4 mg total) by mouth every 6 (six) hours as needed for muscle spasms 30 tablet 11/07/2019 12/26/2019 documented in this encounter Plan of Treatment Not on file documented as of this encounter Visit Diagnoses Not on filedocumented in this encounter Care Teams Community Service Representative Relationship Specialty [place] [address] [address] [facility] [address] [address] PCP - General Family Medicine 02/21/19 documented as of this encounter
--- OUTSIDE RECORDS SUMMARY | 2024-08-09 23:34 | XMS_ITS | Encounter Summary ---
Author Organization [facility] Healthcare Address [address] [place] [address] Care Team Providers Care Day Habilitation Supervisor Name Role Phone Cassius Ortega NP Primary Care Provider [phone] Reason for Visit * Reason Onset Date Comments [facility] 11/09/2019 Encounter Details Date Type Department Care Team (Late st Contact Info) Description 11/09/2019 Telephone [facility] HealthCare/ Physicians [address] [place] [address] [place] [address] [facility] [address] [address] [facility] Medical Social History Tobacco Use Types Packs/Day Years Used Date Smoking Tobacco: Never Smokeless Tobacco: Never Alcohol Use Standard Drinks/Week Comments Yes 0 (1 standard drink = 0.6 oz pur e alcohol) PHQ-2 Answer Date Recorded PHQ-2 Score 2 05/15/2019 Comments No Sex and Gender Information Value Date Recorded Sex Assigned at Not on file Legal Sex Female 1:09 AM ADDRESS CHANGE CLERK Gender Identity Not on file Sexual Orientation [...] AM CDT documented as of this encounter Miscellaneous Notes * Telephone Encounter - Cassius Ortega NP - 11/09/2019 10:17 AM CDT Noted thanks * Telephone Encounter - Arianna Masterson - 11/09/2019 10:09 AM CDT General Medical Question/Miscellaneous-Sent Message: Caller's Concern: Isabel called to advised she is now seeing the patient for physical therapy at this time. She does not need an order this is a courtesy call to advise. Caller's Callback #: [phone] Did you relay expectation for processing (up to 24 hours)? Sending as FYI documented in this encounter Plan of Treatment Not on file documented as of this encounter Visit Diagnoses Not on filedocumented in this encounter Care Teams Day Habilitation Supervisor Relationship Specialty Start [place] [address] [address] [facility] [address] [address] PCP - General Family Medicine 02/21/19 documented as of this encounter
--- OUTSIDE RECORDS SUMMARY | 2024-08-09 23:34 | XMS_ITS | Encounter Summary ---
Author Organization [facility] Healthcare Address [address] [place] [address] Care Team Providers Care Powder Worker Name Role Phone Cassius Ortega NP Primary Care Provider [phone] Encounter Details Date Type Department Care Team (Late st Contact Info) Description 10/20/2019 11:45 AM CDT Lab [facility] PATHOLOGY [address] [place] [address] Social History Tobacco Use Types Packs/Day Years Used Date Smoking Tobacco: Never Smokeless Tobacco: Never Alcohol Use Standard Drinks/Week Comments Yes 0 (1 standard drink = 0.6 oz pur e alcohol) PHQ-2 Answer Date Recorded PHQ-2 Score 2 05/15/2019 Comments No Sex and Gender Information Value Date Recorded Sex Assigned at Not on file 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SHUTTLE VENEERING Gender Identity Not on file Sexual Orientation [...] Procedure Name Priority Date/Time Associated Diagnosis Comments SURGICAL PATHOLOGY Routine 10/20/2019 8: 55 AM CDT documented in this encounter Results * Surgical pathology (10/20/2019 8:55 AM CDT) 10/20/2019 8:55 AM CDT 10/20/2019 11:18 AM CDT Narrative 10/23/2019 8:56 PM CDT EPIC results best viewed via link to PDF [facility] [place] [address] SURGICAL PATHOLOGY REPORT FINAL Patient Name: ?? DEEJAY ALFORD Gender: ??F : ??1975 (Age: 44) Address: ??[address] [place] [address] Hospital #: ??[id number] Taken:10/20/2019 Received:10/20/2019 Reported: 10/23/2019 Patient Type: [facility] Ref Lab ?? Service: Gynecology Location: [facility] Physician(s): ??Kelly Irizarry M.D. Diagnosis: Uterus, endometrium, biopsy ? - Secretory endometrium - No evidence of endometrial hyperplasia or malignancy ?? rls/10/23/2019 08:08 By this signature, I attest that the above diagnosis is based upon my personal examination of the slides(and/or other material indicated in the diagnosis). Lily Soria M.D., Ph.D. Report Electronically Reviewed and Signed Out By ??Lily Soria M.D., Ph.D. 10/23/2019 20:56:32 Microscopic Description and Comment: Microscopic examination substantiates the above cited diagnosis. Rd Samuel M.D. History: The patient is a 44-year-old woman with thickened endometrium. ??Operative procedure: Uterine lining. Specimen(s) Received: A: Uterine lining Gross Description: Received in formalin labeled the patient's name, date of and uterine lining and consists of a collection of translucent mucoid material, clots and shaffer- red stringy tissue measuring 3.0 x 2.5 x 0.3 cm in aggregate. ??Labeled A1. Jar 0. dy10/20/2019 15:45 PA(s): ANGE Hinojosa By this signature, I attest that the above diagnosis is based upon my personal examination of the slides(and/or other material). The performance characteristics of some immunohistochemical stains, fluorescence in-situ hybridization tests and immunophenotyping by flow cytometry cited in this report (if any) were determined by the Surgical Pathology Department at [facility] as part of an ongoing cloth tester quality program and in compliance with federally mandated [...] determined by the Surgical Pathology Department of [facility]. ??It has not been cleared or approved by the U. S. Food and Drug Administration. IMAGES AND SCANNED DOCUMENTS, IF INCLUDED, ONLY VIEWABLE IN PDF VERSION OF REPORT us Kelly Maria Irizarry MD LAB PATHOLOGY ORDERABLES Final Result documented in this encounter Visit Diagnoses Not on filedocumented in this encounter Care Teams Powder Worker Relationship Specialty Start [place] [address] [address] [facility] [address] [place] [address] PCP - General Family Medicine 02/21/19 documented as of this encounter
--- OUTSIDE RECORDS SUMMARY | 2024-08-09 23:34 | XMS_ITS | Encounter Summary ---
Author Organization [facility] Address [address] [facility] [address] [place] [address] Phone Care Team Providers Care Shank Stapler Name Role Phone Cassius Ortega NP Primary Care Provider [phone] Reason for Visit * Reason Comments Follow up from ultrasound Encounter Details Date Type Department Care Team (Late st Contact Info) Description 09/20/2019 4:30 PM HOSPICE PLAN ADMINISTRATOR Office Visit [facility] Obstetrics and Gynecology [facility] Outpatient Health 7th Floor [address] [place] [address] Kelly Irizarry MD [address] [place] [address] [id number] [place] [address] Abnormal uterine bleeding (Primary Dx); Urinary frequency Social History Tobacco Use Types Packs/Day Years Used Date Smoking Tobacco: Never Smokeless Tobacco: Never Alcohol Use Standard Drinks/Week Comments Yes 0 (1 standard drink = 0.6 oz pur e alcohol) PHQ-2 Answer Date Recorded PHQ-2 Score 2 05/15/2019 Comments No Sex and Gender Information Value Date Recorded Sex Assigned at Not on file Legal Sex Female 1:09 AM HOSPICE PLAN ADMINISTRATOR Gender Identity Not on file Sexual Orientation Not on file 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 documented as of this encounter Last Filed Vital Signs Vital Sign Reading Time Taken Comments Blood Pressure 125/85 09/20/2019 4:30 PM HOSPICE PLAN ADMINISTRATOR Pulse - - Temperature - - Respiratory Rate - - Oxygen Saturation - - Inhaled Oxygen Concentration - - Weight 98.1 kg (216 lb 6 oz) 09/20/2019 4:30 PM HOSPICE PLAN ADMINISTRATOR Height 165.1 cm (5' 5 ) 09/20/2019 4:30 PM HOSPICE PLAN ADMINISTRATOR Body Mass Index 36.01 09/20/2019 4:30 PM HOSPICE PLAN ADMINISTRATOR documented in this encounter Ordered Prescriptions Prescription Sig Dispense Quantity Refills Last Filled Start Date End Date norethindrone (AYGESTIN) 5 mg tablet Take 0.5 tablets (2.5 mg total) by mouth daily 15 tablet 3 09/22/2019 0 norethindrone (AYGESTIN) 5 mg tablet Take 0.5 tablets (2.5 mg total) by mouth daily 1 po qhs for hot flashes 15 tablet 3 09/20/2019 0 documented in this encounter Progress Notes * Kelly Irizarry MD - 09/20/2019 4:30 PM CST TARE WORKER visit note Chief Complaint: Chief Complaint Follow up from ultrasound Subjective: Олег Paz is a 44 y.o. year old female who presents for evaluation of abnormal uterine bleeding. She is having very heavy menses as below. Besides history below, also frequent urination Pain and discharge with ovulation. Prior hx per Christin Alan Has been having heavy menses for the last year. However she did have 2 menses in July. Her monthly menses last about 7 days. 3/7 are heavy using at least 10 or more pads those heavy days. Her GP physician did a pap on her 3 years ago and this was normal. Hasn't seen a Ice Skating Instructor in at least 5 years. Last saw [...] No abnl vag discharge any other time. Menstrual History: Patient's last menstrual period was 08/25/2019. Sexual History: OB History 3 Para 2 [...] frequency Past Medical History: Diagnosis Date ??? HX OTHER MEDICAL 2002 +PPD ??? HX OTHER MEDICAL herniated disc l4-5 ??? HX OTHER MEDICAL 2006 Caesarean section; Comments: [facility] 04/06/2014 - ??? HX OTHER MEDICAL 2008 C section; Comments: [facility] 04/06/2014 - ??? HX OTHER MEDICAL 05/2013 l4/l5 dissection; Comments: [facility] 04/06/2014 - ??? HX OTHER MEDICAL 2008 Tubaligation; Comments: [facility] 04/06/2014 - ??? HX OTHER MEDICAL postpardum [...] level: None Occupational History ??? 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 Financial resource strain: None ??? Food insecurity Worry: None Inability: None ??? Transportation needs Medical: None Non-medical: None Tobacco Use ??? Smoking status: Never Smoker ??? Smokeless tobacco: Never Used Substance and Sexual Activity ??? Alcohol use: Yes ??? Drug use: No ??? Sexual activity: Yes Partners: Male control/protection: Tubal Ligation Lifestyle ??? Physical activity Days per week: None Minutes per session: None ??? Stress: None Relationships ??? Social connections Talks on phone: None Gets together: None Attends restorationism service: None Active member of club or organization: None Attends meetings of clubs or organizations: None Relationship status: None ??? Intimate partner violence Fear of current or ex partner: None Emotionally abused: None Physically abused: None Forced sexual activity: None Other Topics Concern ??? None Social History Narrative ??? None Allergies: Allergies Allergen Reactions ??? Cefazolin Blisters and Redness Reaction: redness, blister, Medications: Current Outpatient Medications: ??? citalopram (CeleXA) 40 mg tablet, Take 1 tablet (40 mg total) by mouth daily, Disp: 90 tablet, Rfl: 3 ??? levothyroxine (SYNTHROID) 150 mcg tablet, Take 1 tablet (150 mcg total) by mouth crusher and blender operator before breakfast, Disp: 90 tablet, Rfl: 3 ??? losartan (COZAAR) 50 mg tablet, Take 50 mg by mouth daily, Disp: , Rfl: 3 ??? norethindrone (AYGESTIN) 5 mg tablet, Take 0.5 tablets (2.5 mg total) by mouth daily, Disp: 15 tablet, Rfl: 3 Family History Problem Relation Age of Onset [...] skin; Review of Systems: Review of Systems Constitutional: Negative for fever. Respiratory: Negative for chest tightness and shortness of breath. Cardiovascular: Negative for chest pain. Gastrointestinal: Negative for abdominal pain, nausea and vomiting. Endocrine: Negative for cold intolerance and heat intolerance. Genitourinary: Positive for urgency. Negative for dysuria. Skin: Negative for rash. Neurological: Negative for headaches. All other systems reviewed and are negative. Objective: BP 125/85 Ht 165.1 cm (5' 5 ) Wt 216 lb 6 oz (98.1 kg) LMP 08/25/2019 BMI 36.01 kg/m?? Physical Exam Vitals signs reviewed. Constitutional: Appearance: Normal appearance. Abdominal: General: Abdomen is flat. There is no distension. Palpations: Abdomen is soft. Tenderness: There is no abdominal tenderness. Genitourinary: Labia: Right: No rash or tenderness. Left: No rash or tenderness. Vagina: Normal. Cervix: Normal. Uterus: Deviated and enlarged. Adnexa: Right adnexa normal and left adnexa normal. Comments: Uterus is anteflexed and pushing on the bladder. Neurological: Mental Status: She is alert. Assessment and Plan: Олег Paz is a 44 y.o. female Олег was seen today for follow up from ultrasound. Diagnoses and all orders for this visit: Abnormal uterine bleeding Urinary frequency Other orders - Discontinue: norethindrone (AYGESTIN) 5 mg tablet; Take 0.5 tablets (2.5 mg total) by mouth daily1 po qhs for hot flashes - norethindrone (AYGESTIN) 5 mg tablet; Take 0.5 tablets (2.5 mg total) by mouth daily Reviewed with patient her normal ultrasound and medical options and ablation for abnormal uterine bleeding as well as hysterectomy, however, in the process of our discussion we reviewed her urinary symptoms. She feels like she has to void very frequently and even when she has just gone, she has pressure on her bladder. After the exam, I feel that she is likely best served with hysterectomy. Although her uterus is just slightly enlarged, it is anteflexed with pressure in the suprapubic region and the bladder. She is interested in whatever treatment will treat the urinary pressure as well as the AUB. I think she is a good candidate for TLH and BS with cysto. She had had 2 prior C/S and I will review those records. I would not recommend TVH. I reviewed the risks of TLS/BS procedure including bleeding, infection, and damage to nearby structures including bladder, bowel, ureters and blood vessels and possible need for open surgery. She wishes to proceed. Will plan for EMBX due to age of 44 and slightly thickened EM. Addendum: 10/13/19 2nd C/S was reviewed and it is noted that the patient's bladder was adhesed to the lower uterine segment and a J uterine incision was made. The bladder adhesions were not fully released, but an adhesion barrier was placed over the J incision. Will review findings with patient and that this increases possible need for laparotomy at the time of planned TLH. Additionally, she states a cefazolin allergy, will plan for gent and clinda per protocol. Kelly Irizarry MD 09/20/2019 documented in this encounter Plan of Treatment Not on file documented as of this encounter Visit Diagnoses Diagnosis Abnormal uterine bleeding- Primary Unspecified disorder of menstruation and other abnormal bleeding from female genital tract Urinary frequency documented in this encounter Discontinued Medications Medication Sig Discontinue Reason Start Date End Da te norethindrone (AYGESTIN) 5 mg tablet Take 0.5 tablets (2.5 mg total) by mouth daily 1 po qhs for hot flashes 09/20/2019 09/22/2019 documented as of this encounter Care Teams Shank Stapler Relationship Specialty [place] [address] [address] [address] PCP - General Family Medicine 02/21/19 documented as of this encounter
--- OUTSIDE RECORDS SUMMARY | 2024-08-09 23:34 | XMS_ITS | Encounter Summary ---
Author Organization [facility] Address [address] [facility] [address] [place] [address] Phone Care Team Providers Care It Applications Manager Name Role Phone Cassius Ortega NP Primary Care Provider [phone] Reason for Visit * Consultation (Routine) - Closed Specialty Diagnoses / Procedures Referred By Cara alvarez Referred To Contact Obstetrics and Gynecology Diagnoses Thickened endometrium Kelly Irizarry MD [address] [facility] [phone] [place] [address] Phone: tel: fax: [facility] (All Locations) Referral ID Status Reason Start Date Expiration Date V isits Requested Visits Authorized [id number] Closed Specialty Services Required 10/18/2019 04/28/2021 1 1 Encounter Details Date Type Department Care Team (Late st Contact Info) Description 10/20/2019 9:15 AM CDT Procedure visit [facility] Obstetrics and Gynecology [facility] Outpatient Health 7th Floor [address] [place] [address] Kelly Irizarry MD [address] [facility] [id number] [place] [address] Thickened endometrium Social History Tobacco Use Types Packs/Day Years Used Date Smoking Tobacco: Never Smokeless Tobacco: Never Alcohol Use Standard Drinks/Week Comments Yes 0 (1 standard drink = 0.6 oz pur e alcohol) PHQ-2 Answer Date Recorded PHQ-2 Score 2 05/15/2019 Comments No Sex and Gender Information Value Date Recorded Sex Assigned at Not on file Legal Sex Female 1:09 AM 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 Gender Identity Not on file Sexual Orientation [...] Sign Reading Time Taken Comments Blood Pressure 116/62 10/20/2019 8:20 AM CDT Pulse - - Temperature - - Respiratory Rate - - Oxygen Saturation - - Inhaled Oxygen Concentration - - Weight 98.2 kg (216 lb 6.4 oz) 10/20/2019 8:20 A M CDT Height 165.1 cm (5' 5 ) 10/20/2019 8:20 AM CDT Body Mass Index 36.01 10/20/2019 8:20 AM CDT documented in this encounter Progress Notes * Kelly Irizarry MD - 10/20/2019 9:15 AM CDT 10/20/2019 Deejay Paz 1975 Procedure: Endometrial biopsy Indication: Abnormal uterine bleeding Cervix Prepped with: Betadine Tenaculum Applied: Yes Os dilated: Yes Uterus: anteverted Endocervical curettage performed: No Endometrial biopsy performed with adequate specimen obtained. Complications: none Tenaculum site was noted to be hemostatic after silver nitrate Post procedure instructions reviewed and information sheet given Specimen to pathology. Recommendations: Await pathology, planning hysterectomy documented in this encounter Plan of Treatment Not on file documented as of this encounter Visit Diagnoses Diagnosis Thickened endometrium Nonspecific (abnormal) findings on radiological and other examination of genitourinary organs documented in this encounter Historical Medications * This list may reflect changes made after this encounter. ferrous sulfate (iron) 325 mg (65 mg of elemental iron) tabletIndication s:Iron Deficiency Anemia Take 65 mg of elemental iron by mouth every other day 0 added in this encounter Orders Outpatient Referral Count Last Ordered Date Fir st Ordered Date AMB REFERRAL TO OB-SOLIDWORKS DESIGNER 1 10/20/2019 documented in this encounter Care Teams It Applications Manager Relationship Specialty Start [place] [address] [address] [facility] [address] [address] PCP - General Family Medicine 02/21/19 documented as of this encounter
--- OUTSIDE RECORDS SUMMARY | 2024-08-09 23:34 | XMS_ITS | Encounter Summary ---
Author Organization [facility] Healthcare Address [address] [place] [address] Care Team Providers Care Hydraulic Dredge Operator Name Role Phone Cassius Ortega NP Primary Care Provider [phone] Encounter Details Date Type Department Care Team (Late st Contact Info) Description 09/04/2019 3:20 PM STYLIST APPRENTICE Lab [address] [address] Social History Tobacco Use Types Packs/Day Years Used Date Smoking Tobacco: Never Smokeless Tobacco: Never Alcohol Use Standard Drinks/Week Comments Yes 0 (1 standard drink = 0.6 oz pur e alcohol) PHQ-2 Answer Date Recorded PHQ-2 Score 2 05/15/2019 Comments No Sex and Gender Information Value Date Recorded Sex Assigned at Not on file Legal Sex Female 1:09 AM STYLIST APPRENTICE Gender Identity Not on file Sexual Orientation Not on file 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 GONORRHOEAE/C. TRACHOMATIS AMPLIFICATION Routine 09/01/2019 8:25 AM STYLIST APPRENTICE documented in this encounter Results * N. gonorrhoeae/C. trachomatis Amplification Thin prep (09/01/2019 8:25 AM STYLIST APPRENTICE) C. trachomatis Not detected Not detected EDGAR FLOR N. gonorrhoeae Not detected Not detected EDGAR FLOR Comment: Testing performed by the [facility]. This assay detects Chlamydia trachomatis and Neisseria gonorrhoeae by nucleic acid amplification testing (NAAT). This test is approved by the [place] Food and Drug Administration and the performance characteristics have been verified by the laboratory. The performance characteristics of this test have not been evaluated in women or individuals less than 16 years of age. Thin prep 09/01/2019 8:25 AM STYLIST APPRENTICE 09/05/2019 8:25 AM STYLIST APPRENTICE Narrative EDGAR - 09/06/2019 11:51 AM STYLIST APPRENTICE [id number] us Physician No LAB MICROBIOLOGY - GENERAL ORDER NOAH Final Result EDGAR FLOR [address] Department [place] [address] documented in this encounter Visit Diagnoses Not on filedocumented in this encounter Care Teams Hydraulic Dredge Operator Relationship Specialty [place] [address] [address] [place] [address] PCP - General Family Medicine 02/21/19 documented as of this encounter
--- OUTSIDE RECORDS SUMMARY | 2024-08-09 23:34 | XMS_ITS | Encounter Summary ---
Author Organization [facility] Healthcare Address [address] [place] [address] Care Team Providers Care Intramural Director Name Role Phone Cassius Ortega NP Primary Care Provider [phone] Encounter Details Date Type Department Care Team (Late st Contact Info) Description 09/01/2019 10:05 AM SENIOR QA ENGINEER Lab [facility] [address] [facility] [place], [place] [id number] Christin Morrison NP [address] [facility] [id number] [place], [place] [id number] Abnormal uterine bleeding (AUB) Discharge Disposition: Discharge to home or self [...] file Legal Sex Female 1:09 AM SENIOR QA ENGINEER Gender Identity Not on file Sexual Orientation Not on file 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 CBC c/w mild Anemia and I recommended Feso4 325mg po daily. I attempted to reach pt of these recent test results. Pt was not available but I did leave a voicemail of these results and recommendations. Pt to keep upcoming pelvic us ordered and she also has afollow up appt with Dr Irizarry. Christin Morrison NP OR QA ENGINEER documented in this encounter Plan of Treatment Not on file documented as of this encounter Procedures Procedure Name Priority Date/Time Associated Diagnosis Comments CYTOLOGY Routine 09/01/2019 10:38 AM SENIOR QA ENGINEER DIFFERENTIAL AUTO Routine 09/01/2019 10: 03 AM SENIOR QA ENGINEER Abnormal uterine bleeding (AUB) CBC WITH AUTO DIFFERENTIAL Routine 09/01/2019 10:03 AM SENIOR QA ENGINEER Abnormal uterine bleeding (AUB) documented in this encounter Results * Cytology (09/01/2019 10:38 AM SENIOR QA ENGINEER) 09/01/2019 10:3 8 AM SENIOR QA ENGINEER 09/01/2019 12:11 PM SENIOR QA ENGINEER Narrative 09/07/2019 10:27 AM SENIOR QA ENGINEER EPIC results best viewed via link to PDF [facility] Alise Gallo Laboratory of Surgical [place] [address] CYTOPATHOLOGY REPORT FINAL Patient Name: ??DEEJAY ALFORDMaurice Gender: ??F : ??1975 (Age: 44) Address: ??[address] [place] [address] [place], [place] ??[address] Hospital #: ??[id number] Service: ??Gynecology Location: ??[facility] Patient Type: ??[facility] Ancillary Taken: ??09/01/2019 Received: ??09/01/2019 Accessioned: ??09/01/2019 Reported: ??09/07/2019 Physician(s): ??Christin Morrison M.D. ?? FINAL INTERPRETATION SOURCE OF SPECIMEN: ? Liquid based pap test, ThinPrep STATEMENT OF ADEQUACY: ?- Satisfactory for evaluation ?- Endocervical cells/transformation zone sample present GENERAL CATEGORY: ?- Negative for squamous intraepithelial lesion or malignancy DESCRIPTION: ?- Shift in gill suggestive of bacterial vaginosis Comments HPV Result: ??NEGATIVE for high risk types of Human Papilloma Virus (HPV) RNA This probe detects the presence of HPV types: 16, 18, 31, 33, 35, 39, 45, 51, 52, 56, 58, 59, 66 and 68. ??This HPV test was performed at [facility] in [place], [place] utilizing the Gen-Probe Aptima assay. /09/07/2019 10:27 CLARIBEL Glover(ASCP) Report Electronically Reviewed and Signed Out By CLARIBEL Glover(ASCP) 09/07/2019 10:27:13 Cervicovaginal Cytology (Pap Test) Disclaimer: The Pap test is a screening test used to detect cervical cancer and its precursors; it is not a diagnostic procedure. False negative and false positive results do occur. Pap test results should be interpreted in the context of pertinent clinical information and biopsy results as indicated. Gross Description A. ??Liquid based pap test, ThinPrep: ??Cervical/vaginal - Diagnostic ThinPrep with HPV ?? Clinical Diagnosis and History Last Menstrual Period: 08/25/2019 Contraceptive History: No The patient is a 44 year old woman with last pap two years ago w/ her GP/normal, having AUB. The [place] [address]. The Gonorrhea/Chlamydia [place] [address]. Report Images and scanned documents, if included only viewable in PDF version The performance characteristics of some immunohistochemical stains, in-situ hybridization and fluorescence in-situ hybridization tests and immunophenotyping by flow cytometry cited in this report (if any) were determined by the Surgical Pathology Department at [facility] as part of an ongoing quality assurance consultant program and in compliance with federally [...] determined by the Surgical Pathology Department of [facility]. ??It has not been cleared or approved by the U. S. Food and Drug Administration. Christin Morrison PERSONALIZATION SPECIALIST LAB CYTOLOGY ORDERABLES Fi nal Result * Differential, auto (09/01/2019 10:03 AM SENIOR QA ENGINEER) Neutrophil abs 4.2 1.7 - 6.5 K/cumm [facility] Imm gran abs 0.0 0.0 - 0.1 K/cumm [facility] Lymphocyte abs 2.4 0.8 - 3.3 K/cumm [facility] Monocyte abs 0.6 0.2 - 0.8 K/cumm [facility] Eosinophil abs 0.0 0.0 - 0.5 K/cumm [facility] Basophil abs 0.0 0.0 - 0.1 K/cumm [facility] Neutrophil pct 57.1 % [facility] Comment: Interpretive Data Percent cell count reference ranges are not reported, since discordance with absolute values may lead to misinterpretation of CBC data. Current Interpretive Data was last revised on 2017. Imm gran pct 0.3 % [facility] Comment: Interpretive Data Percent cell count reference ranges are not reported, since discordance with absolute values may lead to misinterpretation of CBC data. Current Interpretive Data was last revised on 2017. Lymphocyte pct 32.9 % [facility] Comment: Interpretive Data Percent cell count reference ranges are not reported, since discordance with absolute values may lead to misinterpretation of CBC data. Current Interpretive Data was last revised on 2017. Monocyte pct 8.6 % [facility] Comment: Interpretive Data Percent cell count reference ranges are not reported, since discordance with absolute values may lead to misinterpretation of CBC data. Current Interpretive Data was last revised on 2017. Eosinophil pct 0.7 % [facility] Comment: Interpretive Data Percent cell count reference ranges are not reported, since discordance with absolute values may lead to misinterpretation of CBC data. Current Interpretive Data was last revised on 2017. Basophil pct 0.4 % [facility] Comment: Interpretive Data Percent cell count reference ranges are not reported, since discordance with absolute values may lead to misinterpretation of CBC data. Current Interpretive Data was last revised on 2017. Blood specimen (specimen) 09/01/2019 10:03 AM SENIOR QA ENGINEER 09/01/2019 10:21 AM SENIOR QA ENGINEER Christin Morrison PERSONALIZATION SPECIALIST LAB BLOOD ORDERABLES Final Result [facility] Department [place] [address] * (ABNORMAL) CBC with auto differential (09/01/2019 10:03 AM SENIOR QA ENGINEER) WBC 7.3 3.8 - 9.9 K/cumm [facility] Hgb 10.9(L) 11.9 - 15.5 g/dL [facility] Hct 33.1(L) 35.6 - 45.5 % [facility] Plt 306 150 - 400 K/cumm [facility] MPV 9.0(L) 9.1 - 12.3 fL [facility] RBC 3.89(L) 3.90 - 5.20 M/cumm [facility] MCV 85.1 81.3 - 96.4 fL [facility] MCH 28.0 27.1 - 33.3 pg [facility] MCHC 32.9 32.3 - 35.7 g/dL [facility] RDW CV 14.3 11.1 - 14.9 % [facility] SD 44.1 35.7 - 48.1 fL [facility] NRBC abs 0.00 0.00 - 0.01 K/cumm [facility] Blood specimen (specimen) 09/01/2019 10:03 AM SENIOR QA ENGINEER 09/01/2019 10:21 AM SENIOR QA ENGINEER Christin Morrison NP LAB BLOOD ORDERABLES Final Result Performing Organization Address City/State/[facility] Co de Phone Number [facility] Department [place] [address] documented in this encounter Visit Diagnoses Diagnosis Abnormal uterine bleeding (AUB) documented in this encounter Care Teams Intramural Director Relationship Specialty Start [place] [address] [facility] [address] [place] [address] PCP - General Family Medicine 02/21/19 documented as of this encounter
--- OUTSIDE RECORDS SUMMARY | 2024-08-09 23:34 | XMS_ITS | Encounter Summary ---
Author Organization [facility] Healthcare Address [address] [place] [address] Care Team Providers Care Direct Marketing Analyst Name Role Phone Cassius Ortega NP Primary Care Provider [phone] Encounter Details Date Type Department Care Team (Latest Contact Info) Description 12/28/2019 5:37 AM CDT - 12/29/2019 12:25 PM CDT Hospital Encounter [facility] [address] [place] [address] Kelly Irizarry MD [address] [facility] [phone] [place], [place] [id number] Abnormal uterine bleeding; Urinary frequency Discharge Disposition: Discharge to home or self [...] on file Legal 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 Gender Identity Not on file Sexual [...] Sign Reading Time Taken Comments Blood Pressure 107/59 12/29/2019 8:50 AM CDT Pulse 82 12/29/2019 8:50 AM CDT Temperature 36.8 ??C (98.2 ??F) 12/29/2019 8:50 AM CD T Respiratory Rate 18 12/29/2019 8:50 AM CDT Oxygen Saturation 99% 12/29/2019 8:50 AM CDT Inhaled Oxygen Concentration - - Weight 98 kg (216 lb) 12/28/2019 12:44 PM CDT Height 165.1 cm (5' 5 ) 12/28/2019 12:44 PM CDT Body Mass Index 35.94 12/28/2019 12:44 PM CDT documented in this encounter Discharge Diagnoses Diagnosis Abnormal uterine and vaginal bleeding, unspecified - ABNORMAL UTERINE AND VAGINAL BLEEDING, UNSPECIFIED Frequency of micturition - FREQUENCY OF MICTURITION Urinary frequency Anxiety disorder, unspecified - ANXIETY DISORDER, UNSPECIFIED Major depressive disorder, single episode, unspecified - MAJOR DEPRESSIVE DISORDER, SINGLE EPISODE, UNSPECIFIED Essential (primary) hypertension - ESSENTIAL (PRIMARY) HYPERTENSION Unspecified essential hypertension Hyperlipidemia, unspecified - HYPERLIPIDEMIA, UNSPECIFIED Iron deficiency anemia, unspecified - IRON DEFICIENCY ANEMIA, UNSPECIFIED Gastro-esophageal reflux disease without esophagitis - GASTRO-ESOPHAGEAL REFLUX DISEASE WITHOUT ESOPHAGITIS Hypothyroidism, unspecified - HYPOTHYROIDISM, UNSPECIFIED Obesity, unspecified - OBESITY, UNSPECIFIED Body mass index (BMI) 35.0-35.9, adult - BODY MASS INDEX (BMI) 35.0-35.9, ADULT Other supervisor intermediates (current) drug therapy - OTHER LEVEL VIAL MARKER (CURRENT) DRUG THERAPY documented in this encounter Discharge Summaries * Lorraine Sheth MD - 12/29/2019 7:01 AM CDT Inpatient Discharge Summary BRIEF OVERVIEW Admitting Provider: Kelly Irizarry MD Discharge Provider: Kelly Irizarry MD Primary Care Physician at Discharge: Csasius Ortega NP [phone] Admission Date: 12/28/2019 Discharge Date: 12/29/2019 Admission Location: [facility] Problems/Diagnoses: Active Problems: Abnormal uterine bleeding Urinary [...] and this was normal. Hasn't seen a Marketing Program Coordinator in at least 5 years. 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 Hasn't jesus Marketing Program Coordinator in at least 5 years. Last saw [...] (postoperative nausea and vomiting) ??? 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 Thyroid disease Past Surgical History: Procedure Laterality Date ??? BREAST BIOPSY NEG LEFT ??? SECTION ??? DILATION AND CURETTAGE OF UTERUS 2004 D&C ??? LUMBAR SPINE SURGERY 2013 herniated disc l4-5: lumbar spine surgery Dr. Burkett ??? 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 Pap History: No [...] recommended. Electronically signed by: Izabella Patton M.D. Aura Jaz Alford is a 44 y.o. with AUB who is being admitted for scheduled surgery. #AUB -Patient counseled about risks/benefits/alternatives of surgery. Discussed plan for TLH/BS/Cysto, however possible conversion to LYNNE may be needed due to history of [...] her admission. * Plan of Care - Judy Omer RN - 12/28/2019 3:19 PM CDT [...] [facility] and examined under anesthesia with the above [...] CDT) WBC 12.7(H) 3.8 - 9.9 K/cumm [facility] Hgb 10.7(L) 11.9 - 15.5 g/dL [facility] Hct 32.1(L) 35.6 - 45.5 % [facility] Plt 299 150 - 400 K/cumm [facility] MPV 9.4 9.1 - 12.3 fL [facility] RBC 3.63(L) 3.90 - 5.20 M/cumm [facility] MCV 88.4 81.3 - 96.4 fL [facility] MCH 29.5 27.1 - 33.3 pg [facility] MCHC 33.3 32.3 - 35.7 g/dL [facility] RDW CV 13.9 11.1 - 14.9 % [facility] RDW SD 44.8 35.7 - 48.1 fL [facility] NRBC abs 0.00 0.00 - 0.01 K/cumm [facility] Blood specimen (specimen) 12/28/2019 9:38 PM CDT 12/28/2019 10:29 PM CDT us Kellyfam Irizarry MD LAB BLOOD SETH WOLFE Final Result [facility] [place] [address] * Surgical pathology (12/28/2019 9:44 AM CDT) Tissue (Uterus with/without tubes & ovaries, Non-neoplastic) 12/28/2019 9:44 AM CDT Narrative PATHOLOGY [facility] - 01/02/2020 3:34 PM CDT EPIC results best viewed via link to PDF [facility] Alise Gallo [facility] [place] [address] SURGICAL PATHOLOGY REPORT FINAL Patient Name: ?? JAZ ALFORD Gender: ??F : ??1975 (Age: 44) Address: ??[address] [place], [place] ??[address] [facility] #: ??[id number] Taken:12/28/2019 Received:12/28/2019 Reported: 01/02/2020 Patient Type: [facility] Observation ?? Service: Surgery Location: [place] [address] Physician(s): ??Kelly Irizarry M.D. Cassius Ortega NP [...] and left ? - No histopathologic abnormality cab/01/01/2020 14:06 By this signature, I attest that [...] respectively; A3 to A4 - anterior endomyometrium, technical sales representatives full-thickness sections with roughened serosa included in A3; A5 to A6 - posterior endomyometrium, bisected technical sales representatives full-thickness section; A7 - technical sales representatives shorter fallopian tube; A8 - technical sales representatives longer fallopian tube. ??Jar 2. 09/06/2812/29/2019 09:25 PA(s): Maria Arias MS, PA ([facility]) By this signature, I attest that the above diagnosis is based upon my personal examination of the slides(and/or other material). The performance characteristics of some immunohistochemical stains, fluorescence in-situ hybridization tests and immunophenotyping by flow cytometry cited in this report (if any) were determined by the Surgical Pathology Department at [facility] as part of an ongoing type disk quality control supervisor program and in compliance with federally mandated [...] determined by the Surgical Pathology Department of [facility]. ??It has not been cleared or approved by the U. S. Food and Drug Administration. IMAGES AND SCANNED DOCUMENTS, IF INCLUDED, ONLY VIEWABLE IN PDF VERSION OF REPORT Kelly Irizarry MD LAB PATHOLOGY ORDERABLES Final Result PATHOLOGY [facility] 3rd Floor [place], [place] [phone] * POCT hCG, urine (12/28/2019 6:27 AM CDT) [facility] HCG, ur, POC Negative Lot Number [id number] QC Backgroud Clear Acceptable QC Control Line Acceptable Urine 12/28/2019 6:27 AM CDT Shonna Knight NP POINT OF CARE TEST ORDERABLES Final Result * (ABNORMAL) CBC without differential (12/28/2019 6:10 AM CDT) [facility] WBC 7.5 3.8 - 9.9 K/cumm [facility] Hgb 11.4(L) 11.9 - 15.5 g/dL [facility] Hct 34.5(L) 35.6 - 45.5 % [facility] Plt 283 150 - 400 K/cumm [facility] MPV 9.0(L) 9.1 - 12.3 fL [facility] RBC 3.98 3.90 - 5.20 M/cumm [facility] MCV 86.7 81.3 - 96.4 fL [facility] MCH 28.6 27.1 - 33.3 pg [facility] MCHC 33.0 32.3 - 35.7 g/dL [facility] RDW CV 13.8 11.1 - 14.9 % [facility] RDW SD 43.6 35.7 - 48.1 fL [facility] NRBC abs 0.00 0.00 - 0.01 K/cumm [facility] Blood specimen (specimen) 12/28/2019 6:10 AM CDT 12/28/2019 6:27 AM CDT us Kelly Maria Irizarry MD LAB BLOOD ORDE YANETH Final Result [facility] [place] [address] * (ABNORMAL) Basic metabolic panel (12/28/2019 6:10 AM CDT) [facility] Sodium 136 135 - 145 mmol/L [facility] Potassium, pl 4.2 3.3 - 4.9 mmol/L [facility] Chloride 105 97 - 110 mmol/L [facility] CO2 21(L) 22 - 32 mmol/L [facility] Anion gap 10 2 - 15 mmol/L [facility] BUN 8 8 - 25 mg/dL [facility] Creatinine 0.67 0.60 - 1.10 mg/dL [facility] Glucose 100 70 - 199 mg/dL [facility] Comment: Interpretive Data Fasting glucose >/= [...] 2017. Calcium 9.0 8.5 - 10.3 mg/dL [facility] Blood specimen (specimen) 12/28/2019 6:10 AM CDT 12/28/2019 6:27 AM CDT us Kelly Maria Irizarry MD LAB BLOOD ORDE YANETH Final Result Performing Organization Address City/[facility]/ZIP Co de Phone Number [facility] [place] [address] documented in this encounter Visit Diagnoses Diagnosis [...] Given 12/29/2019 3:46 AM CDT 1,000 mg citalopram (CeleXA) tablet 40 mg 40 mg, [...] Jacquie 12/28/19 at 1236, Indications: Nausea and VomitingIndications:Nausea and Vomiting ondansetron ODT (ZOFRAN-ODT) disintegrating tablet 4 mg 4 mg, oral, Every 6 hours PRN, nausea, vomiting, Starting on Jacquie 12/28/19 at 1236, Indications: Nausea and VomitingIndications:Nausea and Vomiting oxyCODONE (ROXICODONE) tablet 5 mg 5 mg, oral, Every 4 hours PRN, 1st line for pain, Starting on Jacquie 12/28/19 at 1236, Indications: PainIndications:Pain Given 12/29/2019 10:25 AM CDT 5 mg Given 12/28/2019 9:28 PM CDT 5 mg Given 12/28/2019 1:17 PM CDT 5 mg polyethylene glycol (MIRALAX) packet 17 g 17 g, oral, 2 times daily, First dose on Wed12/28/19 at 1315, Hold if diarrhea., Indications: constipationIndications:con stipation Given 12/29/2019 8:41 AM CDT 17 g scopolamine patch 72 hour 1 patch 1 patch, transdermal, Administer over 72 Hours, Once, On Wed12/28/19 at 0730, For 1 dose Medication Applied 12/28/2019 7:25 AM CDT 1 patch Behind Right Ear simethicone (MYLICON) chewable tablet 80 mg 80 mg, oral, 4 times daily PRN, flatulence, bloating, fullness, and discomfort of gastrointestinal gas, Starting on Wed12/28/19 at 1236, Indications: FlatulenceIndications:Flatu lence Given 12/28/2019 9:29 PM CDT 80 mg documented in this encounter Discontinued Medications [...] Every 6 hours scheduled, First dose on Wed12/28/19 at 1630, For 24 hours, Indications: Pain [...] Wed12/28/19 at 1315, Hold if diarrhea., Indications: constipation 1317 (Not Given - Provider: Judy Omer RN - Reason: Other - Comment: not tolerating PO yet)2129 (Not Given - Provider: Dexter Hernandez RN - Reason: Patient/family refused) 0841 (Given - Provider: Shantel Lin RN) scopolamine patch 72 hour 1 patch (COMPLETED) 1 patch, transdermal, Administer over 72 Hours, Once, On Wed12/28/19 at 0730, For 1 dose 0725 (Medication Applied - Provider: Helen Yeboah RN)1530 (Medication Removed - Provider: Judy Omer, ELTON) sodium chloride 0.9% flush 0.5-20 mL 0.5-20 mL, intra-catheter, Every 8 hours scheduled, First dose on Jacquie 12/28/19 at 1400, Flush volume based on line type and size. , Indications: Flushing 1317 (Not Given - Provider: Judy Omer RN - Reason: IV Infusing)2129 (Lab Draw - Provider: Dexter Hernandez, ELTON) 0542 (Not Given - Provider: Dexter Hernandez, ELTON - Reason: Other) Continuous Medication Order 12/27/2019 [...] well. 1052 (New Bag - Provider: Ira Tineo RN)1630 (Stopped - Provider: Judy Omer, ELTNO) PRN Medication Order 12/27/2019 12/28/2019 12/29/2019 bupivacaine [...] Indications: Flatulence 2128 (Given - Provider: Dexter Hernandez RN) sodium chloride 0.9 % irrigation (CANCELED) As [...] Count Last Ordered Date First Ordered Date bupivacaine (MARCAINE) 0.25 % (2.5 mg/mL) preservative free injection 1 12/28/2019 calcium carbonate (TUMS) kendra wable tablet 500 [...] injection 10 mg 1 12/28/2019 sodium chloride 0.9 % irrigation 1 12/28/19 20 sodium chloride 0.9% flush 0.5-20 mL 4 12/01 sterile water irrigation 1 12/28/2019 CORE MEASURES Count Last Ordered Date First Ord ered Date REASON FOR NO VTE PROPHYLAXIS AT ADMISSION 1 12/28/2019 documented in this encounter Care Teams Direct Marketing Analyst Relationship Specialty [place] [address] [address] [facility] [facility] [address] [address] PCP - General Family Medicine 02/21/19 documented as of this encounter
--- OUTSIDE RECORDS SUMMARY | 2024-08-09 23:34 | XMS_ITS | Encounter Summary ---
Author Organization [facility] Address [address] [facility] [address] [place] [address] Phone Care Team Providers Care Compound Machine Operator Name Role Phone Cassius Ortega NP Primary Care Provider [phone] Encounter Details Date Type Department Care Team (Late st Contact Info) Description 11/28/2019 Orders Only [facility] Obstetrics and Gynecology [address] 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 Gender Identity Not on file Sexual Orientation Not on file 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 documented as of this encounter Ordered Prescriptions Prescription Sig Dispense Quantity Refills Last Filled Start Date End Date norethindrone (AYGESTIN) 5 mg tablet Take 1/2 to 1 tab daily 30 tablet 1 11/28/2019 11/30/2019 documented in this encounter Plan of Treatment Not on file documented as of this encounter Visit Diagnoses Not on filedocumented in this encounter Discontinued Medications Medication Sig Discontinue Reason Start Date End Da te norethindrone (AYGESTIN) 5 mg tablet Take 0.5 tablets (2.5 mg total) by mouth daily Reorder 10/26/2019 11/28/2019 documented as of this encounter Care Teams Compound Machine Operator Relationship Specialty [place] [address] [address] [facility] [address] [place] [address] PCP - General Family Medicine 02/21/19 documented as of this encounter
--- OUTSIDE RECORDS SUMMARY | 2024-08-09 23:34 | XMS_ITS | Encounter Summary ---
Author Organization [facility] Healthcare Address [address] [place] [id number] Care Team Providers Care District Medical Examiner Name Role Phone Cassius Ortega NP Primary Care Provider [phone] Reason for Referral * Diagnostic Imaging (Routine) - Closed Specialty Diagnoses / Procedures Referred By Cara alvarez Referred To Contact Diagnoses Abnormal uterine bleeding (AUB) Bulky or enlarged uterus Procedures US Pelvis Complete Christin Morrison NP [address] [facility] [phone] [place] [address] Phone: tel: fax: [facility] (All Locations) Referral ID Status Reason Start Date Expiration Date Visits Re quested Visits Authorized [id number] Closed 09/01/2019 03/12/2021 1 1 SCHOOL PROFESSIONAL Reason for Visit * Diagnostic Imaging (Routine) - Closed Specialty Diagnoses / Procedures Referred By Cara alvarez Referred To Contact Diagnoses Abnormal uterine bleeding (AUB) Bulky or enlarged uterus Procedures US Pelvis Complete Christin Morrison NP [address] [facility] [phone] [place] [address] Phone: tel: fax: [facility] (All Locations) Referral ID Status Reason Start Date Expiration Date Visits Re quested Visits Authorized [id number] Closed 09/01/2019 03/12/2021 1 1 Encounter Details Date Type Department Care Team (Latest Contact Info) Description 09/18/2019 2:58 PM HIGH SCHOOL PROFESSIONAL - 09/18/2019 11:59 PM HIGH SCHOOL PROFESSIONAL Hospital Encounter [facility] Ultrasound [address] 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 documented as of this encounter Medications at Time of Discharge citalopram (CeleXA) 40 mg tablet Take 1 tablet (40 mg total) by mouth daily 90 tablet 3 05/17/2019 0 levothyroxine (SYNTHROID) 150 mcg tablet Take 1 tablet (150 mcg total) by mouth technical sales support manager before breakfast 90 tablet 3 05/17/2019 0 losartan (COZAAR) 50 mg tabletIndication s:hypertension Take 50 mg by mouth every morning 3 05/09/2019 0 documented as of this encounter Discharge Disposition Disposition Code Departure Means Destination Discharge to home or self care documented in this encounter Progress Notes * Christin Morrison NP - 09/18/2019 3:15 PM CST Pelvic us results reviewed and showed normal uterus and bilateral ovaries. The shape of the uterus is globular which may suggest some underlying Adenomyosis changes. Pt has hx of BTL. Has upcoming appt with Dr Irizarry who can discuss with her tx options for cycle control. I attempted to reach pt today regarding this pelvic us results. No answer but LVM of my call/overall pelvic us results. Christin Morrison NP SCHOOL PROFESSIONAL documented in this encounter Plan of Treatment Not on file documented as of this encounter Procedures Procedure Name Priority Date/Time Associated Diagnosis Comments US PELVIS COMPLETE Schedule Routine, Read Routine (OP Routine) 09/18/2019 2:58 PM HIGH SCHOOL PROFESSIONAL Abnormal uterine bleeding (AUB) Bulky or enlarged uterus documented in this encounter Results * US Pelvis Complete (09/18/2019 2:58 PM HIGH SCHOOL PROFESSIONAL) Cul de Sac No free fluid visualized VIEWPOINT Endometrial Thickness 7.9 mm&millim eters VIEWPOINT Anatomical Region Laterality Modality Pelvis N/A Ultrasound 09/18/2019 3:00 PM HIGH SCHOOL PROFESSIONAL us Christin Morrison NP IMG US PROCEDURES Final Re sult documented in this encounter Visit Diagnoses Diagnosis Abnormal uterine bleeding (AUB) Bulky or enlarged uterus Hypertrophy of uterus documented in this encounter Care Teams District Medical Examiner Relationship Specialty Start [place] [address] [address] [facility] [address] [address] PCP - General Family Medicine 02/21/19 documented as of this encounter
--- OUTSIDE RECORDS SUMMARY | 2024-08-09 23:35 | XMS_ITS | Encounter Summary ---
Author Organization [facility] Healthcare Address [address] [place] [address] Care Team Providers Care Front End Technician Name Role Phone Cassius Ortega NP Primary Care Provider [phone] Encounter Details Date Type Department Care Team (Late st Contact Info) Description 04/13/2019 9:19 AM CDT - 04/13/2019 11:59 PM CDT Hospital Encounter [facility] Diagnostic Imaging [address] [place] [address] [place] [address] [facility] [address] [place] [address] Discharge Disposition: Discharge to home or self care Social History Tobacco Use Types Packs/Day Years Used Date Smoking Tobacco: Never Smokeless Tobacco: Never Alcohol Use Standard Drinks/Week Comments Yes 0 (1 standard drink = 0.6 oz pur e alcohol) Comments No Sex and Gender Information Value Date Recorded Sex Assigned at Not on file 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 30 capsule 3 01/26/2018 9 famotidine (PEPCID) 20 mg tablet Take 20 mg by mouth daily. 9 levothyroxine (SYNTHROID, LEVOTHROID) 150 mcg tablet Take 1 tablet (150 mcg total) by mouth field machinist before breakfast 30 tablet 02/21/2019 9 traMADol (ULTRAM) 50 mg tablet 1 06/30/2018 9 documented as of this encounter Discharge Disposition Disposition Code Departure Means Destination Discharge to home or self care documented in this encounter Plan of Treatment Not on file documented as of this encounter Procedures Procedure Name Priority Date/Time Associated Diagnosis Comments XR CHEST 1 VIEW ED 04/13/2019 9:30 AM CDT documented in this encounter Results * XR Chest 1 Vw Portable (04/13/2019 9:30 AM CDT) Anatomical Region Laterality Modality Body, Chest N/A Computed Radiogr aphy 04/13/2019 9:34 AM CDT Impressions 04/13/2019 9:34 AM CDT NO ACUTE PULMONARY CHANGE. Electronically signed by: Александр Underwood M.D. Narrative 04/13/2019 9:34 AM CDT RESULT: HISTORY: Chest pain EXAMINATION: XR CHEST 1 VIEW ORDER DATE: 04/13/2019 9:20 AM FINDINGS: There are small scattered parenchymal and perihilar granulomatous calcifications. The cardiac and mediastinal outlines are unremarkable. There are no pleural effusions or infiltrates. No significant abnormalities are noted in the spine or remainder of the bony thorax. Procedure Note Александр Underwood MD - 04/13/2019 RESULT: HISTORY: Chest pain EXAMINATION: XR CHEST 1 VIEW ORDER DATE: 04/13/2019 9:20 AM FINDINGS: There are small scattered parenchymal and perihilar granulomatous calcifications. The cardiac and mediastinal outlines are unremarkable. There are no pleural effusions or infiltrates. No significant abnormalities are noted in the spine or remainder of the bony thorax. IMPRESSION: NO ACUTE PULMONARY CHANGE. Electronically signed by: Александр Underwood M.D. Libertad Suazo MD IMG XR PROCEDURES Final Result documented in this encounter Visit Diagnoses Not on filedocumented in this encounter Care Teams Front End Technician Relationship Specialty Start [place] [address] [address] [facility] [address] [place] [address] PCP - General Family Medicine 02/21/19 documented as of this encounter
--- OUTSIDE RECORDS SUMMARY | 2024-08-09 23:35 | XMS_ITS | Encounter Summary ---
Author Organization [facility] Address [address] [facility] [address] [place] [address] Care Team Providers Care Vehicle Painter Name Role Phone Brittani Agosto MD Primary Care Provider [phone] Reason for Visit * Reason Onset Date Comments cancel surgery 08/16/2018 Encounter Details Date Type Department Care Team (Late st Contact Info) Description 08/16/2018 Telephone [facility] Orthopedics and Sports Medicine 4 [facility] [address] [place] [address] Cuate Mcmullen MD [address] [place] [address] [address] [facility] [address] [place] [address] cancel surgery Social History Tobacco Use Types Packs/Day Years Used Date Smoking Tobacco: Never Smokeless Tobacco: Never Alcohol Use Standard Drinks/Week Comments Yes 0 (1 standard drink = 0.6 oz pur e alcohol) Comments No Sex and Gender Information Value Date Recorded Sex Assigned at Not on file Legal Sex Female 1:09 AM BUFFING TURNER AND COUNTER Gender Identity Not on file Sexual Orientation Not on file 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 Will call us back later in year to re-schedule. Called Kelly in OR scheduling and cancelled. Sent cancel to [facility] ING TURNER AND COUNTER documented in this encounter Plan of Treatment Not on file documented as of this encounter Visit Diagnoses Not on filedocumented in this encounter Care Teams Vehicle Painter Relationship Specialty [place] [id number] [address] PCP - General Family Medicine 06/21/18 02/19/19 documented as of this encounter
--- OUTSIDE RECORDS SUMMARY | 2024-08-09 23:35 | XMS_ITS | Encounter Summary ---
Author Organization [facility] Address [address] [address] Care Team Providers Care Franchise Sales Manager Name Role Phone Brittani Agosto MD Primary Care Provider [phone] Reason for Referral * Injectables (Routine) - Closed Specialty Diagnoses / Procedures Referred By Contac t Referred To Contact Diagnoses Nontraumatic incomplete tear of right rotator cuff Procedures Large Joint (Hip, Knee, Shoulder) Injection: R subacromial bursa Nolan Bernard PA Phone: tel: fax: [facility] Referral ID Status Reason Start Date Expiration Date Visits Re quested Visits Authorized [id number] Closed 11/28/2018 06/08/2020 1 1 Reason for Visit * Reason Comments Follow-up Encounter Details Date Type Department Care Team (Latest Contact Info) Description 11/28/2018 1:00 PM CDT Office Visit [facility] Orthopedics and Sports Medicine [address] [place] [id number] Nolan Bernard PA [address] [place] [address] [place] [address] Nontraumatic incomplete tear of right rotator cuff (Primary Dx); Impingement syndrome of right shoulder; Biceps tendinitis [...] on file Legal Sex 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 Gender Identity Not on file Sexual Orientation Not on file 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 documented as of this encounter Last Filed Vital Signs Vital Sign Reading Time Taken Comments Blood Pressure 122/79 11/28/2018 12:56 PM CDT Pulse 73 11/28/2018 12:56 PM CDT Temperature - - Respiratory Rate - - Oxygen Saturation - - Inhaled Oxygen Concentration - - Weight 93.9 kg (207 lb) 11/28/2018 12:56 PM CDT Height 165.1 cm (5' 5 ) 11/28/2018 12:56 PM CDT Body Mass Index 34.45 11/28/2018 12:56 PM CDT documented in this encounter Progress Notes * Nolan Bernard PA - 11/28/2018 1:00 PM CDTAssociated Order(s): Large Joint (Hip, Knee, Shoulder) Injection: R subacromial bursa Post-Procedure Diagnose(s): Nontraumatic incomplete tear of right rotator cuff Images from the original note were not included. FOLLOW UP VISIT Subjective CHIEF COMPLAINT She had concerns including Follow-up of the Right Shoulder. HISTORY OF PRESENT ILLNESS Follow up for right shoulder, she was scheduled for surgery but had to postpone. She has changed jobs and at this time cannot take the time off for her surgery. MEDICATIONS She has a current medication list which includes the following prescription(s): citalopram, dicyclomine, famotidine, levothyroxine, tramadol, and alprazolam. REVIEW OF SYSTEMS Review of Systems Constitutional: Negative for chills, fatigue and fever. HENT: Negative for sore throat. Respiratory: Negative for cough and shortness of breath. Cardiovascular: Negative for chest pain. Gastrointestinal: Negative for constipation, nausea and vomiting. Musculoskeletal: Positive for arthralgias. Neurological: Negative for dizziness, light-headedness and headaches. Objective PHYSICAL EXAM There were no vitals taken for this visit. Right shoulder Inspection Erythema: absent Swelling: absent Skin temperature: normal AC joint deformity: absent Surgical scar/wound: present. The surgical scar/wound is healed and no evidence of infection. Thereis no drainage present. Palpation Tenderness is present. The patient has tenderness in the biceps tendon area(s). Range of motion The patient does not have pain with range of motion of the right shoulder. Active forward flexion: 150 degrees. Active external rotation at 0 degrees: 60 degrees. Active abduction: 160 degrees. Active adduction: 40 degrees. Strength The patient has 5/5 strength throughout [...] of the left shoulder. REVIEW OF X-RAYS/STUDIES/LABS Assessment/Plan Deejay was seen today for follow-up. Diagnoses and all orders for this visit: Nontraumatic incomplete tear of right rotator cuff Impingement syndrome of right shoulder Biceps tendinitis of right upper extremity Arthritis of right acromioclavicular joint Large Joint (Hip, Knee, Shoulder) Injection: R subacromial bursa Date/Time: 11/28/2018 1:13 PM Performed by: VLAD Sparrow Authorized by: VLAD Sparrow Large Joint Injection/Aspiration: Consent Given by: Patient Site marked: the procedure site was marked Timeout: prior to procedure the correct patient, procedure, and site was verified Verbal consent obtained: Yes Supporting Documentation: Indications: Pain Procedure Details: Location: Shoulder Site: R subacromial bursa Prep: patient was prepped and draped in usual sterile fashion Needle Size: 22 G Approach: Posterior Medications: 80 mg methylPREDNISolone acetate 80 mg/mL Patient tolerance: Patient tolerated the procedure well with no immediate complications PLAN We will proceed with CSI today. Post injection instructions were provided to the patient. My hope is that this will give her pain relief to give her more time before surgery, she plans to still have the surgery done. She will continue her HEP as well. All questions were addressed today and the patient was instructed to call the office with any questions or concerns. VLAD Sparrow documented in this encounter Plan of Treatment Not on file documented as of this encounter Procedures Procedure Name Priority Date/Time Associated Diagnosis Comments AK ARTHROCENTESIS ASPIR&/INJ MAJOR JT/BURSA W/O US Routine 11/28/2018 1:00 PM CDT Nontraumatic incomplete tear of right rotator cuff documented in this encounter Results * AK ARTHROCENTESIS ASPIR&/INJ MAJOR JT/BURSA W/O US (11/28/2018 1:00 PM CDT) Narrative Nolan Bernard PA - 11/28/2018 1:00 PM CDT VLAD Sparrow ? 11/29/2018 ??3:39 PM Large Joint (Hip, Knee, Shoulder) Injection: R subacromial bursa Date/Time: 11/28/2018 1:13 PM Performed by: VLAD Sparrow Authorized by: VLAD Sparrow Large Joint Injection/Aspiration: ??Consent Given by: ??Patient ??Site marked: the procedure site was marked ?Timeout: prior to procedure the correct patient, procedure, and site was verified ?Verbal consent obtained: Yes ?? Supporting Documentation: ??Indications: ??Pain Procedure Details: ??Location: ??Shoulder ??Site: ??R subacromial bursa ??Prep: patient was prepped and draped in usual sterile fashion ?Needle Size: ??22 G ??Approach: ??Posterior ??Medications: ??80 mg methylPREDNISolone acetate 80 mg/mL ??Patient tolerance: ??Patient tolerated the procedure well with no immediate complications us Nolan CHU IN CLINIC/BEDSIDE ORDERABLE S Final Result documented in this encounter Visit Diagnoses Diagnosis Nontraumatic incomplete tear of right rotator cuff- Primary Impingement syndrome of right shoulder Biceps tendinitis of right upper extremity Arthritis of right acromioclavicular joint documented in this encounter Administered Medications Inactive Administered Medications - up to 3 most recent administrations Medication Order MAR Action Action Date Dose Rate Site methylPREDNISolone acetate (DEPO-medrol) injection 80 mg 80 mg, intra-articular, One-Time Injection, Starting on Wed11/28/18 at 1313, For 1 doseIndications:Nontraumatic incomplete tear of right rotator cuff Given 11/28/2018 1:13 PM CDT 80 mg documented in this encounter Orders Medications Ordered That Segundo ht Not Have Been Administered Count Last Ordered Date First Ordered Date methylPREDNISolone acetate ( DEPO-medrol) injection 80 mg 1 11/29/2018 documented in this encounter Care Teams Franchise Sales Manager Relationship Specialty [place] [address] [address] PCP - General Family Medicine 06/21/18 02/19/19 documented as of this encounter
--- OUTSIDE RECORDS SUMMARY | 2024-08-09 23:35 | XMS_ITS | Encounter Summary ---
Author Organization [facility] Address [address] [facility] [address] [place] [address] Care Team Providers Care Saw Grinder Name Role Phone Brittani Agosto MD Primary Care Provider [phone] Reason for Visit * Reason Onset Date Comments Appt for med refill. 09/06/2018 Encounter Details Date Type Department Care Team (Late st Contact Info) Description 09/06/2018 Telephone [facility] at [address] [place] [address] Wilma Soriano MA Appt for med refill. 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 30 tablet 09/06/2018 9 levothyroxine (SYNTHROID, LEVOTHROID) 150 mcg tablet Take 1 tablet (150 mcg total) by mouth microfilm technician before breakfast. 30 tablet 09/06/2018 9 documented in this encounter Miscellaneous Notes * Telephone Encounter - Wilma Soriano MA - 09/06/2018 9:03 AM CST Called patient, lmom informed Rx's sent. tg R SCHOOL MUSIC TEACHER * Telephone Encounter - Brittani Agosto MD - 09/06/2018 8:48 AM LOWER SCHOOL MUSIC TEACHER Rx's sent R SCHOOL MUSIC TEACHER * Telephone Encounter - Wilma Soriano MA - 09/06/2018 8:19 AM CST Called patient, she stated that she would make an appointment. Patient stated that she needs Levothyroxine refilled as well. Patient is scheduled to see Dr. Oconnell on Wednesday09/23/2018 @ 8:00 am. tg R SCHOOL MUSIC TEACHER documented in this encounter Plan of Treatment Not on file documented as of this encounter Visit Diagnoses Not on filedocumented in this encounter Discontinued Medications Medication Sig Discontinue Reason Start Date End Da te levothyroxine (SYNTHROID, LEVOTHROID) 150 mcg tablet TAKE 1 TABLET BY MOUTH EVERY DAY 03/26/2017 12/18/2017 levothyroxine (SYNTHROID, LEVOTHROID) 150 mcg tablet Take 150 mcg by mouth microfilm technician before breakfast. Reorder 09/06/2018 citalopram (CeleXA) 40 mg tablet Take 1 tablet (40 mg total) by mouth daily. Reorder 09/09/2017 09/06/2018 documented as of this encounter Care Teams Saw Grinder Relationship Specialty [place] [address] [address] PCP - General Family Medicine 06/21/18 02/19/19 documented as of this encounter
--- OUTSIDE RECORDS SUMMARY | 2024-08-09 23:35 | XMS_ITS | Encounter Summary ---
Author Organization [facility] Address [address] [facility] [address] [place] [address] Care Team Providers Care Cook Frozen Dessert Name Role Phone Cassius Ortega NP Primary Care Provider [phone] Reason for Referral * Diagnostic Imaging (Routine) - Closed Specialty Diagnoses / Procedures Referred By Cara alvarez Referred To Contact Diagnoses Screening mammogram, encounter for Annual physical exam Hypothyroidism, unspecified type Essential hypertension Procedures Screening Mammogram Bilateral W Cassius Palmer NP Phone: tel: fax: [address] [address] Referral ID Status Reason Start Date Expiration Date Visits Re quested Visits Authorized [id number] Closed 05/15/2019 11/23/2020 1 1 Reason for Visit * Reason Comments Preventative Care physical exam Encounter Details Date Type Department Care Team (Late st Contact Info) Description 05/15/2019 9:30 AM CDT Office Visit Family Care at [address] [address] Cassius Ortega NP [address] [place] [address] [address] [place] [address] Annual physical exam (Primary Dx); Screening mammogram, encounter for; Hypothyroidism, unspecified type; Essential hypertension; BMI 35.0-35.9,adult Social History Tobacco Use Types Packs/Day Years Used Date Smoking Tobacco: Never Smokeless Tobacco: Never Alcohol Use Standard Drinks/Week Comments Yes 0 (1 standard drink = 0.6 oz pur e alcohol) PHQ-2 Answer Date Recorded PHQ-2 Score 2 05/15/2019 Comments No Sex and Gender Information Value Date Recorded Sex Assigned at Not on file 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 Sex Female 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 Gender Identity Not on file Sexual Orientation Not on file 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 documented as of this encounter Last Filed Vital Signs Vital Sign Reading Time Taken Comments Blood Pressure 117/78 05/15/2019 9:35 AM CDT Pulse 76 05/15/2019 9:35 AM CDT Temperature 36.8 ??C (98.2 ??F) 05/15/2019 9:35 AM CD T Respiratory Rate - - Oxygen Saturation - - Inhaled Oxygen Concentration - - Weight 96.2 kg (212 lb) 05/15/2019 9:35 AM CDT Height 165.1 cm (5' 5 ) 05/15/2019 9:35 AM CDT Body Mass Index 35.28 05/15/2019 9:35 AM CDT documented in this encounter Progress Notes * Cassius Ortega, TITLE MANAGER - 05/15/2019 9:30 AM CDT Subjective/Objective Patient ID: Олег Paz is a 44 y.o. female. Chief Complaint Preventative Care (physical exam ) Pt here for preventative visit. She has been feeling well, she has no chest pain or shortness of breath. She has some issues with fatigue at times and increase in stress. She states she has been managing well and getting better. Review of Systems Constitutional: Negative for fatigue and fever. HENT: Negative for congestion, rhinorrhea and sore throat. Respiratory: Negative for cough, chest tightness and shortness of breath. Cardiovascular: Negative for chest pain and leg swelling. Gastrointestinal: Negative for abdominal pain and nausea. Endocrine: Negative for cold intolerance and heat intolerance. Neurological: Negative for headaches. Psychiatric/Behavioral: Negative for sleep disturbance. Physical Exam Constitutional: She is oriented to person, place, and time. She appears well-developed. HENT: Head: Normocephalic and atraumatic. Right Ear: External ear normal. Left Ear: External ear normal. Nose: Nose normal. Eyes: Pupils are equal, round, and reactive to light. Conjunctivae are normal. Right eye exhibits no discharge. Left eye exhibits no discharge. No scleral icterus. Neck: Normal range of motion. Neck supple. No JVD present. No thyromegaly present. Cardiovascular: Normal rate, regular rhythm and normal heart sounds. Exam reveals no gallop and no friction rub. No murmur heard. Pulmonary/Chest: Effort normal and breath sounds normal. No respiratory distress. She has no wheezes. She has no rales. She exhibits no tenderness. Abdominal: Soft. Bowel sounds are normal. There is no tenderness. Musculoskeletal: Normal range of motion. Lymphadenopathy: She has no cervical adenopathy. Neurological: She is alert and oriented to person, place, and time. Skin: Skin is warm and dry. Psychiatric: Her behavior is normal. Vitals reviewed. Assessment/Plan Diagnoses and all orders for this visit: Annual physical exam (Z00.00) (Primary) - Screening Mammogram Bilateral W Connor; Future - CBC with auto differential; Future - Comprehensive metabolic panel; Future - Lipid panel; Future - TSH; Future - Hemoglobin A1c; Future Screening mammogram, encounter for (Z12.31) - Screening Mammogram Bilateral W Connor; Future Hypothyroidism, unspecified type (E03.9) - Screening Mammogram Bilateral W Connor; Future - CBC with auto differential; Future - Comprehensive metabolic panel; Future - Lipid panel; Future - TSH; Future - Hemoglobin A1c; Future Essential hypertension (I10) Assessment & Plan: Orders: - Screening Mammogram Bilateral W Connor; Future - CBC with auto differential; Future - Comprehensive metabolic panel; Future - Lipid panel; Future - TSH; Future - Hemoglobin A1c; Future BMI 35.0-35.9,adult (Z68.35) documented in this encounter Miscellaneous Notes * Assessment & Plan Note - Cassius Ortega NP - 05/15/2019 9:48 AM CDT Associated Problem(s): Primary hypertension documented in this encounter Plan of Treatment Not on file documented as of this encounter Results * Screening Mammogram Bilateral [...] examination has been subjected to R2/CAD analysis. Cassius Ortega NP IMG MAMMO PROCEDURES Final Re sult * Hemoglobin A1c (05/15/2019 10:17 AM CDT) Hgb A1C 5.6 4.0 - 5.6 % [facility] Estimated Average Glucose 114 mg/dL [facility] Comment: The ADA recommends reporting an estimated Average Glucose (eAG) with all Hemoglobin A1c results using the equation derived from a study of 507 normal and diabetic adults. ??Minority populations were underrepresented and children were not included. ?? (Diabetes Care 31:4381-8852, 2007). ??The eAG is not equivalent to a fasting glucose. Blood specimen (specimen) 05/15/2019 10:17 AM CDT 05/15/2019 11:30 AM CDT Cassius Ortega TITLE MANAGER LAB BLOOD ORDERABLES Final Re sult Performing Organization Address [facility] de Phone Number [facility] [address] [place] [address] * TSH (05/15/2019 10:17 AM CDT) Thyroid Stimulating Hormone 0.87 0.30 - 4.20 mcIUnit/mL [facility] Blood specimen (specimen) 05/15/2019 10:17 AM CDT 05/15/2019 11:30 AM CDT Cassius Ortega TITLE MANAGER LAB BLOOD ORDERABLES Final Re sult Performing Organization Address [facility] de Phone Number [facility] [address] [place] [address] * (ABNORMAL) Lipid panel (05/15/2019 10:17 AM [...] revised on 2018. Non-HDL Cholesterol 184 mg/dL [facility] Comment: Interpretive Data Ages [...] last revised on 2018. Chol/HDL ratio 5 [facility] Blood specimen (specimen) 05/15/2019 10:17 AM CDT 05/15/2019 11:30 AM CDT us Cassius Ortega TITLE MANAGER LAB BLOOD ORDERABLES Final Re sult [facility] [address] [place] [address] * Comprehensive metabolic panel (05/15/2019 10:17 AM [...] LAB BLOOD ORDERABLES Final Re sult [facility] [address] [place] [address] * (ABNORMAL) CBC with auto differential (05/15/2019 10:17 AM CDT) WBC 7.2 3.8 - 9.9 K/cumm [facility] Hgb 11.5(L) 11.9 - 15.5 g/dL [facility] Hct 36.1 35.6 - 45.5 % [facility] Plt 328 150 - 400 K/cumm [facility] MPV 9.5 9.1 - 12.3 fL [facility] RBC 4.17 3.90 - 5.20 M/cumm [facility] MCV 86.6 81.3 - 96.4 fL [facility] MCH 27.6 27.1 - 33.3 pg [facility] MCHC 31.9(L) 32.3 - 35.7 g/dL [facility] RDW CV 13.7 11.1 - 14.9 % [facility] RDW SD 43.5 35.7 - 48.1 fL [facility] NRBC abs 0.00 0.00 - 0.01 K/cumm [facility] Blood specimen (specimen) 05/15/2019 10:17 AM CDT 05/15/2019 11:30 AM CDT Cassius Ortega NP LAB BLOOD ORDERABLES Final Re sult [facility] [address] [place] [address] documented in this encounter Visit Diagnoses Diagnosis Annual physical exam- Primary Routine general medical examination at a health care facility Screening mammogram, encounter for Hypothyroidism, unspecified type Essential hypertension Unspecified essential hypertension BMI 35.0-35.9,adult Screening mammogram, encounter for Annual physical exam Routine general medical examination at a health care facility Hypothyroidism, unspecified type Essential hypertension Unspecified essential hypertension documented in this encounter Discontinued Medications Medication Sig Discontinue Reason Start Date End Da te dicyclomine (BENTYL) 10 mg capsule Take 1 capsule (10 mg total) by mouth 4 (four) times a day before meals and nightly. Patient Discharge 01/26/2018 05/15/2019 famotidine (PEPCID) 20 mg tablet Take 20 mg by mouth daily. Patient Discharge 05/15/2019 traMADol (ULTRAM) 50 mg tablet Patient Discharge 06/30/2018 05/15/2019 documented as of this encounter Historical Medications * This list may reflect changes made after this encounter. losartan (COZAAR) 50 mg tabletIndications :hypertension Take 50 mg by mouth every morning 3 05/09/2019 04/22/2020 added in this encounter Care Teams Cook Frozen Dessert Relationship Specialty [place] [address] [address] [place] [address] PCP - General Family Medicine 02/21/19 documented as of this encounter
--- OUTSIDE RECORDS SUMMARY | 2024-08-09 23:35 | XMS_ITS | Encounter Summary ---
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
--- OUTSIDE RECORDS SUMMARY | 2024-08-09 23:35 | XMS_ITS | Encounter Summary ---
Author Organization [facility] Address [address] [place] [address] Care Team Providers Care Belt Cleaner Name Role Phone Brittani Agosto MD Primary Care Provider [phone] Encounter Details Date Type Department Care Team (Late st Contact Info) Description 08/11/2018 Orders Only [facility] Orthopedics and Sports Medicine [address] [place] [id number] Cuate Mcmullen MD [address] [place] [address] [address] [place] [address] Incomplete tear of right rotator cuff (Primary Dx); Arthritis of right acromioclavicular joint; Impingement syndrome of right shoulder; Biceps tendinitis of right upper extremity Social History Tobacco Use Types Packs/Day Years Used Date Smoking Tobacco: Never Smokeless Tobacco: Never Alcohol Use Standard Drinks/Week Comments Yes 0 (1 standard drink = 0.6 oz pur e alcohol) Comments No Sex and Gender Information Value Date Recorded Sex Assigned at Not on file 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 Sex 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 Gender Identity Not on file Sexual Orientation Not on file 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 documented as of this encounter Plan of Treatment Not on file documented as of this encounter Visit Diagnoses Diagnosis Incomplete tear of right rotator cuff- Primary Arthritis of right acromioclavicular joint Impingement syndrome of right shoulder Biceps tendinitis of right upper extremity documented in this encounter Orders General Supply Count Last Ordered Date First Or dered Date NEUROMUSCULAR ELECTRICAL STI MULATION (NMES) 1 08/11/2018 documented in this encounter Care Teams Belt Cleaner Relationship Specialty [place] [id number] [place] [id number] PCP - General Family Medicine 06/21/18 02/19/19 documented as of this encounter
--- OUTSIDE RECORDS SUMMARY | 2024-08-09 23:35 | XMS_ITS | Encounter Summary ---
Author Organization [facility] Address [address] [place] [address] Care Team Providers Care Furnace Repairer Helper Name Role Phone Brittani Agosto MD Primary Care Provider [phone] Reason for Visit * Reason Onset Date Comments Triny...medical question 09/12/2018 Encounter Details Date Type Department Care Team (Late st Contact Info) Description 09/12/2018 Telephone [facility] [address] [phone] [place]ani Agosto [place] [id number] [place] [id number] Triny...medical question Social History Tobacco Use Types Packs/Day Years Used Date Smoking Tobacco: Never Smokeless Tobacco: Never Alcohol Use Standard Drinks/Week Comments Yes 0 (1 standard drink = 0.6 oz pur e alcohol) Comments No Sex and Gender Information Value Date Recorded Sex Assigned at Not on file Legal Sex Female 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 30 tablet 09/12/2018 02/21/2019 documented in this encounter Miscellaneous Notes * Telephone Encounter - Brittani Agosto MD - 09/12/2018 12:56 PM INFORMATION CLERK CASHIER sent RMATION CLERK CASHIER * Telephone Encounter - Estefani Rangel - 09/12/2018 12:28 PM CST Patient is calling because office sent her Celexa to wrong pharmacy. Her current pharmacy is [facility] at [phone] in [place]. Please resend script to correct pharmacy. She is just about out ofher medication. Patient can be reached at [phone]..Sending HP RMATION CLERK CASHIER documented in this encounter Plan of Treatment Not on file documented as of this encounter Visit Diagnoses Not on filedocumented in this encounter Discontinued Medications Medication Sig Discontinue Reason Start Date End Da te citalopram (CeleXA) 40 mg tablet Take 1 tablet (40 mg total) by mouth daily. Reorder 09/06/2018 09/12/2018 documented as of this encounter Care Teams Furnace Repairer Helper Relationship Specialty Start [place] [id number] [address] PCP - General Family Medicine 06/21/18 02/19/19 documented as of this encounter
--- OUTSIDE RECORDS SUMMARY | 2024-08-09 23:35 | XMS_ITS | Encounter Summary ---
Author Organization [facility] Address [address] [place] [address] Care Team Providers Care Acupuncturist Name Role Phone Cassius Ortega NP Primary Care Provider [phone] Reason for Visit * Reason Comments Chest Pain Encounter Details Date Type Department Care Team (Late st Contact Info) Description 04/13/2019 8:58 AM CDT - 04/13/2019 3:34 PM T Emergency [facility] Emergency Department [address] [place] [address] [place] [address] 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 documented as of this encounter Last Filed Vital Signs Vital Sign Reading Time Taken Comments Blood Pressure 122/71 04/13/2019 12:45 PM CDT Pulse 70 04/13/2019 9:15 AM CDT Temperature 36.9 ??C (98.5 ??F) 04/13/2019 8:56 AM CD T Respiratory Rate 17 04/13/2019 9:15 AM CDT Oxygen Saturation 100% 04/13/2019 9:15 AM CDT Inhaled Oxygen Concentration - - Weight 93.9 kg (207 lb 0.2 oz) 04/13/2019 8:56 A M CDT Height 165.1 cm (5' 5 ) 04/13/2019 8:56 AM CDT Body Mass Index 34.45 04/13/2019 8:56 AM CDT documented in this encounter Discharge Diagnoses Diagnosis Chest pain - CHEST PAIN, UNSPECIFIED Unspecified chest pain Essential (primary) hypertension - ESSENTIAL (PRIMARY) HYPERTENSION Unspecified essential hypertension Hypothyroidism - HYPOTHYROIDISM, UNSPECIFIED Unspecified hypothyroidism Hyperlipidemia - HYPERLIPIDEMIA, UNSPECIFIED Other and unspecified hyperlipidemia documented in this encounter Discharge Instructions * Discharge Instructions* Libertad Suazo MD - 04/13/2019 3:02 PM CDT Advised to take the blood pressure medication as prescribed by Dr. almonte * Attachments The following attachments cannot be sent through Care Everywhere. 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 female with previous history of hypothyroidism, hyperlipidemia, chronic back pain. She arrived at work and started having chest pain and tingling in her left pinky finger and came to the ED for further evaluation. She took her blood pressure at work where it was reported to be 200/100. She denies any stressors more than usual. She has no prior history of hypertension and usually runs 114/70. Past Medical History: Diagnosis Date ??? HX OTHER MEDICAL 2003 +PPD ??? HX OTHER MEDICAL herniated disc l4-5 ??? HX OTHER MEDICAL 2006 Caesarean section; Comments: [facility] 04/06/2014 - ??? HX OTHER MEDICAL 2008 C section; Comments: [facility] 04/06/2014 - ??? HX OTHER MEDICAL 05/2013 l4/l5 dissection; Comments: [facility] 04/06/2014 - ??? HX OTHER MEDICAL 2008 Tubaligation; Comments: [facility] 04/06/2014 - ??? 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 HX OTHER MEDICAL asymmetrical breast mass Review of systems: As above, the remainder is negative Past Surgical History: Procedure Laterality Date ??? OTHER SURGICAL HISTORY 2002 +PPD: Drug therapy ??? OTHER SURGICAL HISTORY 2005 D&C ??? OTHER SURGICAL HISTORY 2012 herniated disc l4-5: lumbar spine surgery Dr. Burkett ??? OTHER SURGICAL HISTORY asymmetrical breast mass: planning stereotatic bx ??? TUBAL LIGATION 2009 Bilateral tubal ligation Family and social history Family History Problem Relation Age of [...] education level: None Occupational History ??? Occupation: [employer] Employer: [employer] Social Needs ??? Financial resource strain: None ??? Food insecurity: Worry: None Inability: None ??? Transportation needs: Medical: None Non-medical: None Tobacco Use ??? Smoking status: Never Smoker ??? Smokeless tobacco: Never Used Substance and Sexual Activity ??? Alcohol use: Yes ??? Drug use: No ??? Sexual activity: None Lifestyle ??? Physical activity: Days per week: None Minutes per session: None ??? Stress: None Relationships ??? Social connections: Talks on phone: None Gets together: None Attends confucianism service: None Active member of club or organization: None Attends meetings of clubs or organizations: None Relationship status: None ??? Intimate partner violence: Fear of current or ex partner: None Emotionally abused: None Physically abused: None Forced sexual activity: None Other Topics Concern ??? None Social History Narrative ??? None Allergies Allergen Reactions ??? Cefazolin Blisters and Redness Reaction: redness, blister, ??? Sertraline Muscle pain Reaction: muscle cramps, ??? Bacitracin Unknown ??? Lidocaine Unknown ??? Neomycin Unknown ??? Polymyxin B Unknown ??? Pramoxine Unknown Vital Signs: Arrival Vitals [04/13/19 0856] Temp 36.9 ??C (98.5 ??F) Pulse 68 Resp 18 BP 164/85 SpO2 100 % Temp src Oral Heart Rate Source Monitor Patient Position Sitting BP Location Right arm FiO2 (%) Vitals: 04/13/19 1200 04/13/19 1215 04/13/19 1230 04/13/19 1245 BP: 135/83 139/78 129/83 122/71 BP Location: Patient Position: Pulse: Resp: Temp: TempSrc: SpO2: Weight: Height: No intake or output data in the 24 hours ending 04/13/19 1314 Wt Readings from Last 3 Encounters: 04/13/19 93.9 kg (207 lb 0.2 oz) 11/28/18 93.9 kg (207 lb) 07/08/18 92.1 kg (203 lb 0.7 oz) Physical Exam: General: Well developed, well nourished, in no acute distress, oriented to person, place, and time. Skin: Warm and dry Head: Normocephalic, oral mucosa and conjunctivae normal Neck: No thyromegaly or bruits. Carotid pulses 2+ Lungs: Clear to auscultation and percussion. Respirations unlabored Cardiac: PMI and JVP normal, S1 and S2 normal, no murmur, no gallop or rub Abd: Soft, nontender, BS active, no hepatosplenomegaly or masses, no abdominal bruit or enlarged aortic pulsation Extremities: No clubbing, cyanosis. No edema. Femoral pulses 2+. Pedal pulses 2+ Musculoskeletal: Muscle strength normal. No scoliosis. Neurologic: Oriented to person, place, and time. Mood not depressed. Home Medications: Prior to Admission medications Medication Sig Start Date End Date Taking? Authorizing Provider ALPRAZolam (XANAX) 0.5 mg tablet Take 1 tablet (0.5 mg total) by mouth 3 (three) times a day as needed for anxiety. 09/09/17 05/07/18 Brittani Agosto MD citalopram (CeleXA) 40 mg tablet Take 1 tablet (40 mg total) by mouth daily 02/21/19 Brittani Agosto MD dicyclomine (BENTYL) 10 mg capsule Take 1 capsule (10 mg total) by mouth 4 (four) times a day before meals and nightly. 01/26/18 Jennifer Zazueta MD famotidine (PEPCID) 20 mg tablet Take 20 mg by mouth daily. 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 02/21/19 Brittani Agosto MD traMADol (ULTRAM) 50 mg tablet 06/30/18 Historical Provider, Labs: Recent Labs Lab Units 04/13/19 0911 SODIUM mmol/L 137 POTASSIUM PLASMA mmol/L 4.2 CHLORIDE mmol/L 101 CO2 mmol/L 23 BUN SERUM mg/dL 12 CREATININE mg/dL 0.69 [id number]-[id number] mL/min/1.73 m2 104 GLUCOSE mg/dL 103 CALCIUM mg/dL 9.7 ALBUMIN g/dL 4.6 Recent Labs Lab Units 04/13/19 0911 ALK PHOS Units/L 55 BILIRUBIN TOTAL mg/dL 0.3 TOTAL PROTEIN g/dL 7.8 ALT Units/L 19 AST Units/L 25 Recent Labs Lab Units 04/13/19 0911 WBC K/cumm 7.6 HEMOGLOBIN g/dL 12.0 HEMATOCRIT % 37.3 PLATELETS K/cumm 322 Recent Labs Lab Units 04/13/19 0911 INR 0.93 Lab Results Component Value Date CHOL 255 (H) 09/27/2017 TRIG 170 (H) 09/27/2017 HDL 51 09/27/2017 LDL 163 (H) 04/06/2014 Lab Results Component Value Date TSH 2.36 09/27/2017 T3FREE 3.00 04/05/2013 FREET4 1.01 04/05/2013 No results found for: BNP Testing: Cardiac Rhythm: Normal sinus rhythm (04/13/19 0917) Xr Chest 1 Vw Portable Result Date: 04/13/2019 NO ACUTE PULMONARY CHANGE. Electronically signed by: Александр Underwood M.D. No results found for this or any previous visit.] Echo (04/13/19): Normal ECHO Impression: 1. Hypothyroidism 2. HLD 3. Chronic back pain 4. HTN Plan: Echocardiogram Addendum: OK to discharge. Amlodipine 5 mg prn SBP>160. Check Renal Artery Doppler and 24 hour urine collection to evaluate for pheochromocytoma. CC: documented in this encounter ED Notes * Libertad Suazo MD - 04/13/2019 9:14 AM CDTAssociated Order(s): ECG 12 lead HPI Chief Complaint Patient presents with ??? 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 She reports the pain starts in her chest and radiates to her back and into her LUE. Pt also states she has numbness in LUE, nausea, and notes SOB. Pt states her BP was 209/108 at work. She is currently taking Celexa. She denies history of smoking or any pain upon deep inspiration. 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 Incomplete tear of right rotator cuff 08/11/2018 ??? Arthritis of right acromioclavicular joint 08/11/2018 ??? Impingement syndrome of right shoulder 08/11/2018 ??? Biceps tendinitis of right upper extremity 08/11/2018 ??? Bloating 01/19/2018 ??? Well female exam with routine gynecological exam 09/09/2017 ??? Screening for malignant neoplasm of cervix 09/09/2017 ??? Anxiety 09/09/2017 ??? Screening mammogram, encounter for 09/09/2017 ??? BMI 37.0-37.9, adult 09/09/2017 ??? Right upper quadrant abdominal pain 01/20/2017 ??? Mammogram abnormal 03/26/2014 ??? Adiposity 12/16/2013 Class: Chronic ??? depression 12/16/2013 Class: Chronic ??? Vitamin D deficiency 12/16/2013 Class: Chronic ??? Impaired fasting glucose 12/16/2013 Class: Chronic ??? Hyperlipidemia 12/16/2013 Class: Chronic ??? Hypothyroidism 12/16/2013 Class: Chronic ??? Spinal stenosis of lumbar region 07/24/2013 ??? Benign neoplasm of skin of face 02/04/2012 ??? Encounter for cosmetic surgery 02/04/2012 ??? Arthralgia of shoulder 07/22/2011 ??? Carpal tunnel syndrome 05/26/2011 Past Medical History: Diagnosis Date ??? HX OTHER MEDICAL 2003 +PPD ??? HX OTHER MEDICAL herniated disc l4-5 ??? HX OTHER MEDICAL 2006 Caesarean section; Comments: [facility] 04/06/2014 - ??? HX OTHER MEDICAL 2008 C section; Comments: [facility] 04/06/2014 - ??? HX OTHER MEDICAL 05/2013 l4/l5 dissection; Comments: [facility] 04/06/2014 - ??? HX OTHER MEDICAL 2008 Tubaligation; Comments: [facility] 04/06/2014 - ??? 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 HX OTHER MEDICAL asymmetrical breast mass Past Surgical History: Procedure Laterality Date ??? OTHER SURGICAL HISTORY 2002 +PPD: Drug therapy ??? OTHER SURGICAL HISTORY 2005 D&C ??? OTHER SURGICAL HISTORY 2012 herniated disc l4-5: lumbar spine surgery Dr. Burkett ??? OTHER SURGICAL HISTORY asymmetrical breast mass: planning stereotatic bx ??? TUBAL LIGATION 2009 Bilateral tubal ligation Family History Problem Relation [...] Substance Use Topics ??? Alcohol use: Yes ??? Drug use: No Social History Social History Narrative ??? Not on file Review of Systems Review of Systems Constitutional: Negative for chills, fatigue and fever. HENT: Negative for congestion, ear discharge, ear pain, postnasal drip, sinus pressure, sinus pain and sore throat. Eyes: Negative for discharge, redness and visual disturbance. Respiratory: Positive for shortness of breath. Negative for cough and wheezing. Cardiovascular: Positive for chest pain. Negative for palpitations. Gastrointestinal: Positive for nausea. Negative for abdominal pain, blood in stool, diarrhea and vomiting. Endocrine: Negative for cold intolerance, polydipsia and polyuria. Genitourinary: Negative for difficulty urinating, dysuria, flank pain, hematuria and urgency. Musculoskeletal: Negative for back pain, joint swelling, myalgias, neck pain and neck stiffness. Skin: Negative for pallor and rash. Allergic/Immunologic: Negative for environmental allergies and food allergies. Neurological: Positive for numbness (LUE). Negative for dizziness, facial asymmetry, speech difficulty, weakness, light-headedness and headaches. Hematological: Negative for adenopathy. Psychiatric/Behavioral: Negative for agitation, confusion and hallucinations. All other systems reviewed and are negative. Physical Exam ED Triage Vitals [04/13/19 0856] Temp Pulse Resp BP SpO2 36.9 ??C (98.5 ??F) 68 18 164/85 100 % Temp src Heart Rate Source Patient Position BP Location FiO2 (%) Oral Monitor Sitting Right arm -- Physical Exam Constitutional: She is oriented to person, place, and time. She appears well- developed and well-nourished. No distress. HENT: Head: Normocephalic and atraumatic. Mouth/Throat: No oropharyngeal exudate. Eyes: Pupils are equal, round, and reactive to light. Conjunctivae and EOM are normal. Neck: Neck supple. No tracheal deviation present. Cardiovascular: Normal rate and regular rhythm. Exam reveals no gallop and no friction rub. No murmur heard. Pulmonary/Chest: Effort normal and breath sounds normal. No respiratory distress. She has no wheezes. She has no rales. Abdominal: Soft. Bowel sounds are normal. She exhibits no distension. There is no tenderness. Thereis no rebound and no guarding. Musculoskeletal: Normal range of motion. She exhibits no edema, tenderness or deformity. Lymphadenopathy: She has no cervical adenopathy. Neurological: She is alert and oriented to person, place, and time. She displays normal reflexes. No cranial nerve deficit or sensory deficit. She exhibits normal muscle tone. Coordination normal. Skin: Skin is dry. Psychiatric: She has a normal mood and affect. Her behavior is normal. Nursing note and vitals reviewed. ECG 12 lead Date/Time: 04/13/2019 9:32 AM Performed by: Libertad Suazo MD Authorized by: Yin You MD Comments: NSR Rate: 72; non-specific ST changes MDM BP 122/71 Pulse 70 Temp 36.9 ??C (98.5 ??F) (Oral) Resp 17 Ht 165.1 cm (5' 5 ) Wt 93.9 kg(207 lb 0.2 oz) LMP 04/13/2019 SpO2 100% BMI 34.45 kg/m?? Labs Reviewed CBC WITH AUTO DIFFERENTIAL - Abnormal Result Value WBC 7.6 Hgb 12.0 Hct 37.3 Plt 322 MPV 9.3 RBC 4.29 MCV 86.9 MCH 28.0 MCHC 32.2 (*) RDW CV 13.3 RDW SD 42.5 NRBC abs 0.00 D-DIMER, QUANTITATIVE - Abnormal D-dimer <150 (*) COMPREHENSIVE METABOLIC PANEL Sodium 137 Potassium, pl 4.2 Chloride 101 CO2 23 Anion gap 13 BUN 12 Creatinine 0.69 Glucose 103 Calcium 9.7 Bilirubin, total 0.3 Protein, pl 7.8 Albumin 4.6 Alk phos 55 ALT 19 AST 25 PROTIME-INR PT 10.9 INR 0.93 TROPONIN T 5TH GEN SERIES (BASELINE, 3HR, 6HR) Troponin T, Baseline 5th Gen <6 DIFFERENTIAL AUTO Neutrophil abs 4.7 Imm gran abs 0.0 Lymphocyte abs 2.1 Monocyte abs 0.7 Eosinophil abs 0.1 Basophil abs 0.0 Neutrophil pct 61.5 Imm gran pct 0.3 Lymphocyte pct 28.0 Monocyte pct 9.0 Eosinophil pct 0.8 Basophil pct 0.4 TROPONIN T, 3 HOUR 5TH GEN Troponin T, 3 Hr 5th Gen 6 Troponin T, 3 Hr Delta 0 EGFR GFR 104 TROPONIN T, 6 HOUR 5TH GEN Transthoracic Echo Complete W Doppler/CF Final Result XR Chest 1 Vw Portable Final Result NO ACUTE PULMONARY CHANGE. Electronically signed by: Александр Underwood M.D. [facility] Number of Diagnoses or Management Options Chest pain, unspecified type: Essential hypertension: Amount and/or Complexity of Data Reviewed Clinical lab tests: ordered and reviewed Tests in the radiology section of CPT??: ordered and reviewed Tests in the medicine section of CPT??: ordered and reviewed Independent visualization of images, tracings, or specimens: yes ED Course as of Apr 13 1504 Time: 04/13 1001 Value: BP: 164/85 Comment: Pre-hypertension/Hypertension: The patient has been informed that they may have pre-hypertension or Hypertension based on a blood pressure reading in the Emergency Department. I recommend that the patient call the primary care provider listed on their discharge instructions or a physician of their choice this week to arrange follow up for further evaluation of possible pre- hypertension or Hypertension. By: Kassandra Murguia Time: 04/13 1134 Comment: Discussed patient's case with Grace Flores, for Dr. Almonte, who will come to the ED to see the patient. By: Kassandra Murguia Time: 04/13 1315 Comment: Discussed patient's case with Dr. Almonte, clinical nursing intern, who agree with plan for discharge following results of second troponin and will see patient before discharge.s By: Lionel Sin Chest pain, unspecified type Essential hypertension Lionel Sin scribed for Libertad Suazo MD in the doctor's presence. I electronically signed this note at 9:40 AM on 04/13/2019. I, Dr. Lakeisha MUIR, have personally performed the services described in the documentation , reviewed the documentation, as recorded by the scribe in my presence, and it accurately and completely records my words and actions. Libertad Suazo MD 04/13/19 1504 * Sumaya Bowman RN - 04/13/2019 8:55 AM CDT Pt to ED with c/o chest pain since 0700. Pt states she took BP at work and it was 200/something. Pt denies hx of HTN. documented in this encounter Plan of Treatment Not on file documented as of this encounter Procedures Procedure Name Priority Date/Time Associated Diagnosis Comments TROPONIN T, 3 HOUR 5TH GEN Timed 04/13/2019 12:30 PM CDT TRANSTHORACIC ECHO (TTE) COMPLETE W DOPPLER/CF WO CONTRAST Routine 04/13/2019 11:18 AM CDT XR CHEST 1 VIEW ED 04/13/2019 9:30 AM CDT TROPONIN T 5TH GEN SERIES (BASELINE, 3HR, 6HR) STAT 04/13/2019 9:11 AM CDT EGFR STAT 04/13/2019 9:11 AM CDT DIFFERENTIAL AUTO STAT 04/13/2019 9:1 1 AM CDT CBC WITH AUTO DIFFERENTIAL STAT 04/13/2019 9:11 AM CDT PROTIME-INR STAT 04/13/2019 9:11 AM CDT D-DIMER, QUANTITATIVE STAT 04/13/2019 9:11 AM CDT COMPREHENSIVE METABOLIC PANEL STAT 04/13/2019 9:11 AM CDT ECG 12-LEAD STAT 04/13/2019 9:00 AM CDT documented in this encounter Results * Troponin T, 3 Hour 5th Gen (04/13/2019 12:30 PM CDT) Troponin T, 3 Hr 5th Gen 6 6 - 14 ng/L [facility] Troponin T, 3 Hr Delta 0 ng/L [facility] Blood specimen (specimen) 04/13/2019 12:30 PM CDT 04/13/2019 12:40 PM CDT us Libertad Suazo MD LAB BLOOD ORDERABLES Fi nal Result [facility] [address] [place] [address] * TRANSTHORACIC ECHO (TTE) COMPLETE W DOPPLER/CF WO CONTRAST (04/13/2019 11:18 AM CDT) Anatomical Region Laterality Modality Ultrasound 04/13/2019 10:4 4 AM CDT Narrative 04/13/2019 11:[place] [address] Echocardiogram Report Patient Name: JAZ ALFORD : 1975 Study Date: 04/13/2019 10:44:45 AM Gender: F Tech: Location: ED03 Ref.Provider: LIBERTAD SUAZO Height(Cm): 165 BSA: 6.53 Weight(Kg): 931 Heart Rate: 65 BP: 147/80 Quality: Good Order Provider: NGUYEN MELGOZA NP Procedures: Echocardiographic Report: Transthoracic echocardiogram with complete 2D, M-Mode, and color Doppler examination. Indications: Chest Pain. Measurements: 2D/M Mode ?Doppler ? Measurement ?Value ?Normal Range ? Measurement ?Value ?Normal Range ? EF Teich 2D ?65.1 ? [ 55.0 - 70.0 ] percent ?JOLANTA Vmax ? 2.06 ? [ 2.00 - 4.00 ] cm2 ? EF Mod 4C ?71.4 ? [ 55.0 - 70.0 ] percent ?AV Mean PG ? 5 ?[ 2 - 4 ] mmHg ? LVIDd 2D ? 4.59 ? [ 3.90 - 5.30 ] cm ? AV Peak Jaquan ?1.41 ? [ 1.00 - 1.70 ] m/s ? LVIDs 2D ? 2.96 ? [ 2.30 - 3.90 ] cm ? AV VTI ? 21.76 ?cm ? LVPWd 2D ? 0.81 ? [ 0.60 - 1.00 ] cm ? LVOT Diam ?1.94 ? [ 1.70 - 2.10 ] cm ? IVSd 2D ?0.67 ? [ 0.60 - 0.90 ] cm ? LVOT Peak Jaquan ?0.99 ? [ 0.70 - 1.10 ] m/s ? LA Dimension MM ?3.61 ? [ 2.70 - 3.80 ] cm ? LVOT VTI ? 22.20 ?[ 20.00 - 30.00 ] cm ? AoR Diam MM ?3.17 ? [ 2.60 - 3.70 ] cm ? MV E Peak Jaquan ?0.78 ? [ 0.60 - 1.30 ] m/s ? LA Volume Index ?5.87 ? [ 16.00 - 28.00 ] cc/m2 ?MV A Peak Jaquan ?0.48 ? [ 1.00 - 1.20 ] m/s ? ACS MM ? 1.81 ? cm ? MV PHT ? 65 ? [ 20 - 100 ] msec ? MVA ?3.40 ? MV Decel Time ?250 ?[ 104 - 258 ] msec ? PV Peak Jaquan ?0.96 ? [ 0.40 - 0.80 ] m/s ? TR Peak Jaquan ?2.27 ? [ 1.00 - 2.80 ] m/s ? TR Peak PG ? 21 ? mmHg ? RVSP ? 26.00 ?[ 10.00 - 36.00 ] mmHg ? E' ? 0.13 ? E/E' ? 6.17 ? Findings: Atrial Septum: Normal atrial septum. Left Ventricle: Normal left ventricular size. Normal left ventricular systolic function with no focal wall motion abnormalities. Normal left ventricular diastolic function. Ejection fraction is measured at 71 %. Left Atrium: The left atrium is normal in size. Right Ventricle: Normal right ventricular size. Normal right ventricular systolic function. Right Atrium: The right atrium is normal in size. Aortic Valve: Normal structure of the aortic valve. Mitral Valve: Normal structure of the mitral valve. Pulmonic Valve: Normal structure of the pulmonic valve. Tricuspid Valve: Normal structure of the tricuspid valve. Normal right ventricular systolic pressure. Pericardium: Normal pericardium with no significant pericardial effusion. Aorta: Normal aortic root. IVC: Normal size and normal respiratory collapse consistent with normal right atrial pressure (<5 mmHg). Pulmonary Artery: Normal pulmonary artery size. Conclusions: Normal left ventricular size. Normal left ventricular systolic function with no focal wall motion abnormalities. Normal left ventricular diastolic function. Ejection fraction is measured at 71 %. Normal Doppler with normal valvular structure and function. Electronically Signed By: Charly Almonte MD, [facility] 2019-04-13 11:27:45 CDT Procedure Note Charly Almonte MD - 04/13/2019 [place] [address] Echocardiogram Report Patient Name: JAZ ALFORDPatient ID: [id number] : [id number] Date: 04/13/2019 10:44:45 AM Gender: FAccession #: [id number] Tech: JCLocation: ED03 Ref.Provider: Tracy SUAZOt(Cm): 165 BSA: 6.53Weight(Kg): 931 Heart Rate: 65BP: 147/80 Quality: GoodOrder Provider: NGUYEN MELGOZA NP Procedures: Echocardiographic Report: Transthoracic echocardiogram with complete 2D, M-Mode, and color Dopplerexamination. Indications: Chest Pain. Measurements: 2D/M Mode Doppler Measurement Value Normal Range MeasurementValue Normal Range EF Teich 2D 65.1 [ 55.0 - 70.0 ] percent JOLANTA Vmax2.06 [ 2.00 - 4.00 ] cm2 EF Mod 4C 71.4 [ 55.0 - 70.0 ] percent AV Mean PG 5[ 2 - 4 ] mmHg LVIDd 2D 4.59 [ 3.90 - 5.30 ] cm AV Peak Vel1.41 [ 1.00 - 1.70 ] m/s LVIDs 2D 2.96 [ 2.30 - 3.90 ] cm AV VTI21.76 cm LVPWd 2D 0.81 [ 0.60 - 1.00 ] cm LVOT Diam1.94 [ 1.70 - 2.10 ] cm IVSd 2D 0.67 [ 0.60 - 0.90 ] cm LVOT Peak Vel0.99 [ 0.70 - 1.10 ] m/s LA Dimension MM 3.61 [ 2.70 - 3.80 ] cm LVOT VTI22.20 [ 20.00 - 30.00 ] cm AoR Diam MM 3.17 [ 2.60 - 3.70 ] cm MV E Peak Vel0.78 [ 0.60 - 1.30 ] m/s LA Volume Index 5.87 [ 16.00 - 28.00 ] cc/m2 MV A Peak Vel0.48 [ 1.00 - 1.20 ] m/s ACS MM 1.81 cm MV PHT 65[ 20 - 100 ] msec MVA3.40 MV Decel [id number] [ 104 - 258 ] msec PV Peak Vel0.96 [ 0.40 - 0.80 ] m/s TR Peak Vel2.27 [ 1.00 - 2.80 ] m/s TR Peak PG 21mmHg RVSP26.00 [ 10.00 - 36.00 ] mmHg E'0.13 E/E'6.17 Findings: Atrial Septum: Normal atrial septum. Left Ventricle: Normal left ventricular size. Normal left ventricular systolic functionwith no focal wall motion abnormalities. Normal left ventricular diastolic function.Ejection fraction is measured at 71 %. Left Atrium: The left atrium is normal in size. Right Ventricle: Normal right ventricular size. Normal right ventricular systolicfunction. Right Atrium: The right atrium is normal in size. Aortic Valve: Normal structure of the aortic valve. Mitral Valve: Normal structure of the mitral valve. Pulmonic Valve: Normal structure of the pulmonic valve. Tricuspid Valve: Normal structure of the tricuspid valve. Normal right ventricular systolicpressure. Pericardium: Normal pericardium with no significant pericardial effusion. Aorta: Normal aortic root. IVC: Normal size and normal respiratory collapse consistent with normal rightatrial pressure (<5 mmHg). Pulmonary Artery: Normal pulmonary artery size. Conclusions: Normal left ventricular size. Normal left ventricular systolic functionwith no focal wall motion abnormalities. Normal left ventricular diastolic function.Ejection fraction is measured at 71 %. Normal Doppler with normal valvular structure and function. Electronically Signed By: Charly Almonte MD, [facility] 2019-04-13 11:27:45 CDT us Nguyen Melgoza SAW MAKER CV ECHO PROCEDURES Final Result * XR Chest 1 Vw Portable (04/13/2019 [...] ACUTE PULMONARY CHANGE. Electronically signed by: Александр Unedrwood M.D. us Libertad Suazo MD IMG XR PROCEDURES Final Result * eGFR (04/13/2019 9:11 AM CDT) Pathologist [facility] eGFR 104 mL/min/1.7 3 m2 [facility] Comment: Interpretive Data Reference Interval Normal ?>/= 90 mL/min/1.73m2 Mildly decreased* ? 60 - 89 mL/min/1.73m2 Mildly to moderately decreased ?45 - 59 mL/min/1.73m2 Moderately to severely decreased ??30 - 44 mL/min/1.73m2 Severely decreased ?15 - 29 mL/min/1.73m2 Kidney Failure ?< 15 ??mL/min/1.73m2 *Relative to young adult level If -Dutch multiply value by 1.16. Estimated glomerular filtration [...] was last reviewed 2016. Blood specimen (specimen) 04/13/2019 9:11 AM CDT 04/13/2019 9:21 AM CDT Libertad Suazo MD LAB BLOOD ORDERABLES [facility] Result [facility] [address] [place] [address] * Differential, auto (04/13/2019 9:11 AM CDT) Neutrophil abs 4.7 1.7 - 6.5 K/cumm [facility] Imm gran abs 0.0 0.0 - 0.1 K/cumm [facility] Lymphocyte abs 2.1 0.8 - 3.3 K/cumm [facility] Monocyte abs 0.7 0.2 - 0.8 K/cumm [facility] Eosinophil abs 0.1 0.0 - 0.5 K/cumm [facility] Basophil abs 0.0 0.0 - 0.1 K/cumm [facility] Neutrophil pct 61.5 % [facility] Comment: Interpretive Data Percent cell count reference ranges are not reported, since discordance with absolute values may lead to misinterpretation of CBC data. Current Interpretive Data was last revised on 2017. Imm gran pct 0.3 % [facility] Comment: Interpretive Data Percent cell count reference ranges are not reported, since discordance with absolute values may lead to misinterpretation of CBC data. Current Interpretive Data was last revised on 2017. Lymphocyte pct 28.0 % [facility] Comment: Interpretive Data Percent cell count reference ranges are not reported, since discordance with absolute values may lead to misinterpretation of CBC data. Current Interpretive Data was last revised on 2017. Monocyte pct 9.0 % [facility] Comment: Interpretive Data Percent cell count reference ranges are not reported, since discordance with absolute values may lead to misinterpretation of CBC data. Current Interpretive Data was last revised on 2017. Eosinophil pct 0.8 % [facility] Comment: Interpretive Data Percent cell count reference ranges are not reported, since discordance with absolute values may lead to misinterpretation of CBC data. Current Interpretive Data was last revised on 2017. Basophil pct 0.4 % [facility] Comment: Interpretive Data Percent cell count reference ranges are not reported, since discordance with absolute values may lead to misinterpretation of CBC data. Current Interpretive Data was last revised on 2017. Blood specimen (specimen) 04/13/2019 9:11 AM CDT 04/13/2019 9:20 AM CDT Libertad Suazo MD LAB BLOOD ORDERABLES [facility] Result [facility] [address] [place] [address] * (ABNORMAL) D-dimer, quantitative (04/13/2019 9:11 AM CDT) D-dimer <150(L) 150 - 230 ng/mL D-DU [facility] Comment: Interpretive Data This D-dimer test is approved by the FDA to exclude suspected PE and DVT in outpatients when the result is <230 ng/ml D-DU in conjunction with a pre-test probability score of low or moderate using the Wells Criteria. Current Interpretive Data was last revised on 2015. Blood specimen (specimen) 04/13/2019 9:11 AM CDT 04/13/2019 9:20 AM CDT Libertad Suazo MD LAB BLOOD ORDERABLES Fi nal Result Performing Organization Address [facility] de Phone Number [facility] [address] [place] [address] * Troponin T 5th Gen series (Baseline, 3hr, 6hr) (04/13/2019 9:11 AM CDT) Troponin T, Baseline 5th Gen <6 6 - 14 ng/L [facility] Blood specimen (specimen) 04/13/2019 9:11 AM CDT 04/13/2019 9:21 AM CDT Libertad Suazo MD LAB BLOOD ORDERABLES Fi nal Result Performing Organization Address [facility] de Phone Number [facility] [address] [place] [address] * Protime-INR (04/13/2019 9:11 AM CDT) PT 10.9 9.5 - 13.0 sec [facility] IN[facility] 0.93 0.90 - 1.20 [facility] Blood specimen (specimen) 04/13/2019 9:11 AM CDT 04/13/2019 9:20 AM CDT Libertad Suazo MD LAB BLOOD ORDERABLES Fi nal Result Performing Organization Address [facility] de Phone Number [facility] [address] [place] [address] * Comprehensive metabolic panel (04/13/2019 9:11 AM CDT) Sodium 137 135 - 145 mmol/L [facility] Potassium, pl 4.2 3.3 - 4.9 mmol/L [facility] Chloride 101 97 - 110 mmol/L [facility] CO2 23 22 - 32 mmol/L [facility] Anion gap 13 2 - 15 mmol/L [facility] BUN 12 8 - 25 mg/dL [facility] Creatinine 0.69 0.60 - 1.10 mg/dL [facility] Glucose 103 70 - 199 mg/dL [facility] Comment: [...] interpretive data was last revised 2017. Calcium 9.7 8.5 - 10.3 mg/dL [facility] Bilirubin, total 0.3 0.1 - 1.2 mg/dL [facility] Protein, pl 7.8 6.5 - 8.5 g/dL [facility] Albumin 4.6 3.5 - 5.0 g/dL [facility] Alk phos 55 40 - 130 Units/L [facility] ALT 19 7 - 45 Units/L [facility] AST 25 10 - 45 Units/L [facility] Blood specimen (specimen) 04/13/2019 9:11 AM CDT 04/13/2019 9:21 AM CDT us Libertad Suazo MD LAB BLOOD ORDERABLES Fi nal Result [facility] [address] [place] [address] * (ABNORMAL) CBC with auto differential (04/13/2019 9:11 AM CDT) WBC 7.6 3.8 - 9.9 K/cumm [facility] Hgb 12.0 11.9 - 15.5 g/dL [facility] Hct 37.3 35.6 - 45.5 % [facility] Plt 322 150 - 400 K/cumm [facility] MPV 9.3 9.1 - 12.3 fL [facility] RBC 4.29 3.90 - 5.20 M/cumm [facility] MCV 86.9 81.3 - 96.[address] [facility] MCH 28.0 27.1 - 33.[address] [facility] MCHC 32.2(L) 32.3 - 35.7 g/dL [facility] RDW CV 13.3 11.1 - 14.9 % [facility] RDW SD 42.5 35.7 - 48.[address] [facility] NRBC abs 0.00 0.00 - 0.01 K/cumm [facility] Blood specimen (specimen) 04/13/2019 9:11 AM CDT 04/13/2019 9:20 AM CDT Libertad Suazo MD LAB BLOOD ORDERABLES Fi nal Result Performing Organization Address [facility] de Phone Number [facility] [address] [place] [address] * ECG 12 lead (04/13/2019 9:00 AM CDT) 04/13/2019 9:00 AM CDT Narrative [facility] - 04/13/2019 3:25 PM CDT Vent Rate: 72 bpm RR Interval: 823 msec TX Interval: 174 msec QRS Duration: 88 msec QT Interval: 400 msec QTC Interval: 425 msec P-R-T [place]: 63 - 15 - 35 degrees SINUS RHYTHM POSSIBLE LEFT ATRIAL ENLARGEMENT POSSIBLE RIGHT VENTRICULAR CONDUCTION DELAY BORDERLINE ECG Electronically Signed By: Nathaniel Villatoro MD Yin You MD ECG ORDERABLES Final Result Performing Organization Address [facility] de Phone Number [facility] [employer] [facility] documented in this encounter Visit Diagnoses Diagnosis Chest pain, unspecified type- Primary Essential hypertension Unspecified essential hypertension documented in this encounter Administered Medications Inactive Administered Medications - up to 3 most recent administrations Medication Order MAR Action Action Date Dose Rate Site acetaminophen (TYLENOL) tablet 650 mg 650 mg, oral, Once, On Jacquie 04/13/19 at 1146, For 1 dose Given 04/13/2019 12:14 PM CDT 650 mg acetaminophen (TYLENOL) tablet 650 mg 650 mg, oral, Once, On Jacquie 04/13/19 at 1248, For 1 dose Given 04/13/2019 12:50 PM CDT 650 mg aspirin chewable tablet 324 mg 324 mg, oral, Once, On Jacquie 04/13/19 at 0909, For 1 dose Given 04/13/2019 9:14 AM CDT 324 mg ondansetron (ZOFRAN) injection 4 mg 4 mg, intravenous, Administer over 2 Minutes, Once, On Jacquie 04/13/19 at 0912, For 1 dose, Indications: Nausea, VomitingIndications:Nausea,Vomiti ng Given 04/13/2019 9:15 AM CDT 4 mg documented in this encounter Active and Recently Administered Medications Times are shown in CDT. Scheduled Medication Order 04/11/2019 04/12/2019 04/13/2019 acetaminophen (TYLENOL) tablet 650 mg (COMPLETED) 650 mg, oral, Once, On Jacquie 04/13/19 at 1146, For 1 dose 1214 (Given - Provid er: Shey Ng RN) acetaminophen (TYLENOL) tablet 650 mg (COMPLETED) 650 mg, oral, Once, On Jacquie 04/13/19 at 1248, For 1 dose 1250 (Given - Provid er: Mark Lee RN) aspirin chewable tablet 324 mg (COMPLETED) 324 mg, oral, Once, On Jacquie 04/13/19 at 0909, For 1 dose 0914 (Given - Provid er: Mark Lee RN) ondansetron (ZOFRAN) injection 4 mg (COMPLETED) 4 mg, intravenous, Administer over 2 Minutes, Once, On Jacquie 04/13/19 at 0912, For 1 dose, Indications: Nausea, Vomiting 0915 (Given - Provid er: Mark Lee RN) documented in this encounter Care Teams Acupuncturist Relationship Specialty [place] [address] [address] [facility] [address] [address] PCP - General Family Medicine 02/21/19 documented as of this encounter
--- OUTSIDE RECORDS SUMMARY | 2024-08-09 23:35 | XMS_ITS | Encounter Summary ---
Author Organization [facility] Address [address] [place] [address] Care Team Providers Care Community Relations Representative Name Role Phone Brittani Agosto MD Primary Care Provider [phone] Encounter Details Date Type Department Care Team (Late st Contact Info) Description 08/17/2018 Orders Only [facility] Orthopedics and Sports Medicine [address] [place] [address] Nolan Bernard PA [address] [place] [address] [address] [place] [address] Social History Tobacco Use Types Packs/Day Years Used Date Smoking Tobacco: Never Smokeless Tobacco: Never Alcohol Use Standard Drinks/Week Comments Yes 0 (1 standard drink = 0.6 oz pur e alcohol) Comments No Sex and Gender Information Value Date Recorded Sex Assigned at Not on file Legal Sex Female 1:09 AM 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 Surgery 08/10/2018 08/17/2018 documented as of this encounter Care Teams Community Relations Representative Relationship Specialty [place] [address] [address] PCP - General Family Medicine 06/21/18 02/19/19 documented as of this encounter
--- OUTSIDE RECORDS SUMMARY | 2024-08-09 23:35 | XMS_ITS | Encounter Summary ---
Author Organization [facility] Address [address] [place] [address] Care Team Providers Care Disaster Director Name Role Phone Brittani Agosto MD Primary Care Provider [phone] Reason for Visit * Reason Onset Date Comments Med Refill 09/12/2018 Encounter Details Date Type Department Care Team (Late st Contact Info) Description 09/12/2018 Telephone [facility] [id number] [place] [address] [address], [place] [address] [place] Zazueta [place] [id number] [place] [address] [address] [place] [address] Med Refill Social History Tobacco Use Types Packs/Day Years Used Date Smoking Tobacco: Never Smokeless Tobacco: Never Alcohol Use Standard Drinks/Week Comments Yes 0 (1 standard drink = 0.6 oz pur e alcohol) Comments No Sex and Gender Information Value Date Recorded Sex Assigned at Not on file Legal Sex Female 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 OV ING CENTER MANAGER * Telephone Encounter - Irina Camarillo MA - 09/13/2018 11:56 AM IMAGING CENTER MANAGER Please see request below from patient and direct. Pt has not been seen since December/2017 and is requesting rx for Bentyl ING CENTER MANAGER * Telephone Encounter - Joni Hill - 09/13/2018 8:30 AM CST 01/19/18 Espitia 03/19/18 No Show Espitia NFS The patient called the office to request a rx for Bentyl be sent to [facility] ING CENTER MANAGER documented in this encounter Plan of Treatment Not on file documented as of this encounter Visit Diagnoses Not on filedocumented in this encounter Care Teams Disaster Director Relationship Specialty [place] [address] [address] PCP - General Family Medicine 06/21/18 02/19/19 documented as of this encounter
--- OUTSIDE RECORDS SUMMARY | 2024-08-09 23:35 | XMS_ITS | Encounter Summary ---
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
--- OUTSIDE RECORDS SUMMARY | 2024-08-09 23:35 | XMS_ITS | Encounter Summary ---
Author Organization [facility] Healthcare Address [address] [place] [address] Care Team Providers Care Product Assembler Name Role Phone Cassius Ortega NP Primary Care Provider [phone] Encounter Details Date Type Department Care Team (Late st Contact Info) Description 04/05/2019 9:30 AM CDT Lab [place] [address] [place] [address] No, Physician Discharge Disposition: Discharge to home or self care Social History Tobacco Use Types Packs/Day Years Used Date Smoking Tobacco: Never Smokeless Tobacco: Never Alcohol Use Standard Drinks/Week Comments Yes 0 (1 standard drink = 0.6 oz pur e alcohol) Comments No Sex and Gender Information Value Date Recorded Sex Assigned at Not on file 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 Gender Identity Not on file Sexual [...] Procedure Name Priority Date/Time Associated Diagnosis Comments CATECHOLAMINES, FRACTIONATED, URINE, 24 HOUR RESULT Routine 04/30/2019 6:00 PM CDT VMA, URINE, 24 HOUR RESULT Routine 04/30/2019 6:00 PM CDT T-SPOT.TB Routine 04/05/2019 9:28 AM CDT documented in this encounter Results * Catecholamines, fractionated, urine, 24 hour (04/30/2019 6:00 PM CDT) Epinephrine, free 24 hour ur 1.7 <21 mcg/24H [facility] Norepinephrine, free 24 hour ur 30 15 - 80 mcg/24H [facility] Dopamine, free 24 hour ur 244 65 - 400 mcg/24H [facility] Comment: ADDITIONAL INFORMATION This test was developed and its performance characteristics determined by [facility] in a manner consistent with CLIA requirements. This test has not been cleared or approved by the U.S. Food and Drug Administration. Test Performed by: [place] [address] Clinical Molecular Geneticist: Timothy Renae M.D. Ph.D.; CLIA# [id number] Urine 04/30/2019 6:00 PM CDT 05/01/2019 7:22 AM CDT us Charly Olson MD LAB URINE ORDERABLES Final Res ult [facility] [address] [place] [address] * VMA, urine, 24 hour (04/30/2019 6:00 PM CDT) VMA, adult, ur 4.5 <8.0 mg/24H [facility] Comment: Performed by: ??[facility] [employer] [facility] ??[address] [place], [place] [address] [address] ??Clinical Molecular Geneticist: Timothy Renae II, MD, PhD VMA, child, ur Not Reported [facility] Urine 04/30/2019 6:00 PM CDT 05/01/2019 7:14 AM CDT us Charly Olson MD LAB URINE ORDERABLES Final Res ult [facility] [address] [place] [address] * T-SPOT.TB (04/05/2019 9:28 AM CDT) T-SPOT.TB Negative Negative [facility] Comment: Limitations from the T-SPOT.TB Package Insert p.15 Results from T-SPOT.TB testing must be used in conjunction with each individual's epidemiological history, current medical status and results of other diagnostic evaluations.The performance of T-SPOT.TB has not been adequately evaluated with specimens from individuals younger than 17 years, in women, and in patients with hemophilia. A false positive result was obtained for T-SPOT.TB when tested in subjects with M. xenopi, M. kansasii and M. gordonae. While ESAT-6 and CFP10 antigens are absent from BCG strains of M. bovis and from most environmental mycobacteria, it is possible that a positive T-SPOT.TB result may be due to infection with M. kansasii, M. szulgai, M. gordonae or M. marinum. Alternative tests would be required if these infections are suspected. A negative test result does not exclude the possibility of exposure to, or infection with M. tuberculosis. Patients with recent exposure to TB infected individuals exhibiting a negative T-SPOT.TB result should be considered for retesting within 6 weeks or if other relevant clinical symptoms indicate possible infection. A positive test result does not rule in active TB disease; other tests should be performed to confirm the diagnosis of active TB disease such as sputum smear and culture, PCR, and chest radiography. T-SPOT.TB has not been evaluated in subjects who have received >1 month of anti-TB therapy. Refrigerated and frozen samples are not recommended for use with T-SPOT.TB test. T-Spot testing performed by [employer], [address] [place] [address]. [id number] A negative test result does not exclude the possibility of exposure to or infection with Mycobacterium tuberculosis (M. tuberculosis). ??Patients with recent exposure to TB infected individuals exhibiting a negative T-SPOT.TB result should be considered for retesting within 6 weeks or if other relevant clinical symptoms indicate. ??Results from T-SPOT.TB testing must be used in conjunction with each individual's epidemiological history, current medical status, and results of other diagnostic evaluations. ??The T-SPOT.TB test is qualitative and results are reported as positive, borderline or negative, given that the test controls perform as expected. In line with the Centers for Disease Control and Prevention's 2010 recommendation to report quantitative measurements alongside the qualitative result, the laboratory provides spot counts for informational purposes only. ??The T-SPOT.TB test should not be interpreted as a quantitative test. T-SPOT.TB Panel A Spot Count 0 [facility] T-SPOT.TB Panel B Spot Count 0 [facility] T-SPOT.TB Negative Control Passed [facility] T-SPOT.TB Positive Control Passed [facility] Blood specimen (specimen) 04/05/2019 9:28 AM CDT 04/05/2019 5:21 PM CDT us Notinfile Unknown LAB MICROBIOLOGY - GENERAL ORD ERABLES Final Result [facility] [address] [place] [address] documented in this encounter Visit Diagnoses Not on filedocumented in this encounter Care Teams Product Assembler Relationship Specialty [place] [address] [address] [place] [address] PCP - General Family Medicine 02/21/19 documented as of this encounter
--- OUTSIDE RECORDS SUMMARY | 2024-08-09 23:35 | XMS_ITS | Encounter Summary ---
Author Organization [facility] Healthcare Address [address] [place] [address] Care Team Providers Care Destination Coordinator Name Role Phone Cassius Ortega NP Primary Care Provider Encounter Details Date Type Department Care Team (Late st Contact Info) Description 05/01/2019 7:30 AM CDT Lab [address] [id number] Charly Olson MD [address] [place] [address] [address] [place] [address] Discharge Disposition: Discharge to home or self care Social History Tobacco Use Types Packs/Day Years Used Date Smoking Tobacco: Never Smokeless Tobacco: Never Alcohol Use Standard Drinks/Week Comments Yes 0 (1 standard drink = 0.6 oz pur e alcohol) Comments No Sex and Gender Information Value Date Recorded Sex Assigned at Not on file 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 Gender Identity Not on file Sexual [...] Procedure Name Priority Date/Time Associated Diagnosis Comments METANEPHRINES, URINE, 24 HOUR RESULT Routine 04/30/2019 6:00 PM CDT documented in this encounter Results * Metanephrines, urine, 24 hour (04/30/2019 6:00 PM CDT) Metanephrines Comment Not Reported [facility] Metanephrines, 24 hr ur 66 mcg/24H [facility] Comment: REFERENCE VALUE 30-180 (Normotensive) <400 (Hypertensive) Normetanephrine, 24 hour ur 227 mcg/24H [facility] Comment: REFERENCE VALUE 119-451 (Normotensive) <900 (Hypertensive) Metanephrine, Total, 24 Hour Urine 293 mcg/24H [facility] Comment: REFERENCE VALUE [phone] (Normotensive) <1300 (Hypertensive) Performed by: ??[facility] ??[address] [place] [address] ??Toolmaker Helper: Timothy Renae II, MD, PhD Urine 04/30/2019 6:00 PM CDT 05/01/2019 10:19 AM CDT us Charly Olson MD LAB URINE ORDERABLES Final Res ult [facility] [address] [place] [address] documented in this encounter Visit Diagnoses Not on filedocumented in this encounter Care Teams Destination Coordinator Relationship Specialty [place] [address] [address] [place] [address] PCP - General Family Medicine 02/21/19 documented as of this encounter
--- OUTSIDE RECORDS SUMMARY | 2024-08-09 23:35 | XMS_ITS | Encounter Summary ---
Author Organization [facility] Healthcare Address [address] [place] [address] Care Team Providers Care Fashion Coordinator Name Role Phone Cassius Ortega NP Primary Care Provider [phone] Reason for Referral * Diagnostic Imaging (Routine) - Closed Specialty Diagnoses / Procedures Referred By Contac t Referred To Contact Diagnoses Atherosclerosis of renal artery (HCC) Procedures US Renal Doppler Charly Olson MD Phone: tel: fax: [address] [address] Referral ID Status Reason Start Date Expiration Date Visits Re quested Visits Authorized [id number] Closed 04/14/2019 10/23/2020 1 1 Reason for Visit * Diagnostic Imaging (Routine) - Closed Specialty Diagnoses / Procedures Referred By Contac t Referred To Contact Diagnoses Atherosclerosis of renal artery (HCC) Procedures US Renal Doppler Charly Olson MD Phone: tel: fax: [address] [address] Referral ID Status Reason Start Date Expiration Date Visits Re quested Visits Authorized [id number] Closed 04/14/2019 10/23/2020 1 1 Encounter Details Date Type Department Care Team (Latest Contact Info) Description 04/24/2019 8:27 AM CDT - 04/24/2019 11:59 PM CDT Hospital Encounter [facility] [address] [place] [address] Charly Olson MD [address] [facility] [address] [place] [id number] Atherosclerosis of renal artery (CMS/HCC) Discharge Disposition: Discharge to home or self care Social History Tobacco Use Types Packs/Day Years Used Date Smoking Tobacco: Never Smokeless Tobacco: Never Alcohol Use Standard Drinks/Week Comments Yes 0 (1 standard drink = 0.6 oz pur e alcohol) Comments No Sex and Gender Information Value Date Recorded Sex Assigned at Not on file 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 Sex 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 Gender Identity Not on file Sexual [...] 1 tablet (150 mcg total) by mouth mash preparatory operator before breakfast 30 tablet 02/21/2019 9 traMADol (ULTRAM) 50 mg tablet 1 06/30/2018 9 documented as of this encounter Discharge Disposition Disposition Code Departure Means Destination Discharge to home or self care documented in this encounter Plan of Treatment Not on file documented as of this encounter Procedures Procedure Name Priority Date/Time Associated Diagnosis Comments US RENAL DOPPLER Schedule Routine, Read Routine (OP Routine) 04/24/2019 9:00 AM CDT Atherosclerosis of renal artery (CMS/HCC) documented in this encounter Results * US Renal Doppler (04/24/2019 9:00 AM CDT) Anatomical Region Laterality Modality Vascular N/A Ultrasound 04/24/2019 1:13 PM CDT Impressions 04/24/2019 1:15 PM CDT There is no duplex evidence of renal artery stenosis in the right and the left renal artery. Electronically signed by: Jostin Barger M.D. Narrative 04/24/2019 1:15 PM CDT RESULT: HISTORY: The patient is a 44-year-old female who presents with essential hypertension. TECHNIQUE: Bilateral renal artery duplex study was performed. FINDINGS: The right kidney measures 10.5 x 4.0 x 4.9 cm and the left kidney measures 10.3 x 5.8 x 4.9 cm in diameter dimensions. ??No hydronephrosis, calculi or perinephric fluid collection. Peak systolic velocity in the origin of the right renal artery is 1 43 cm/s, in the proximal ICA is 1 97 cm/s, the mid is 131 cm/s and the hilum is 148 cm/s with a right renal artery/aorta ratio of 1.8. Peak systolic velocity in the origin of the left renal artery 62 cm/s, in the proximal is 75 cm/s, the mid is 1 23 cm/s and the hilum is 84 cm/s with a left renal artery/aorta ratio 1.2. Procedure Note Jostin Barger MD - 04/24/2019 RESULT: HISTORY: The patient is a 44-year-old female who presents with essential hypertension. TECHNIQUE: Bilateral renal artery duplex study was performed. FINDINGS: The right kidney measures 10.5 x 4.0 x 4.9 cm and the left kidney measures 10.3 x 5.8 x 4.9 cm in diameter dimensions. No hydronephrosis, calculi or perinephric fluid collection. Peak systolic velocity in the origin of the right renal artery is 1 43 cm/s, in the proximal ICA is 1 97 cm/s, the mid is 131 cm/s and the hilum is 148 cm/s with a right renal artery/aorta ratio of 1.8. Peak systolic velocity in the origin of the left renal artery 62 cm/s, in the proximal is 75 cm/s, the mid is 1 23 cm/s and the hilum is 84 cm/s with a left renal artery/aorta ratio 1.2. IMPRESSION: There is no duplex evidence of renal artery stenosis in the right and the left renal artery. Electronically signed by: Jostin Barger M.D. Charly Olson MD [facility] PROCEDURES Final Result documented in this encounter Visit Diagnoses Diagnosis Atherosclerosis of renal artery (HCC) Atherosclerosis of renal artery documented in this encounter Care Teams Fashion Coordinator Relationship Specialty [place] [address] [address] [address] PCP - General Family Medicine 02/21/19 documented as of this encounter
--- OUTSIDE RECORDS SUMMARY | 2024-08-09 23:36 | XMS_ITS | Encounter Summary ---
Author Organization [facility] Address [address] [address] Care Team Providers Care Brigadier Name Role Phone Kelly Olson NP Primary Care Provider [phone] Reason for Referral * Injectables (Routine) - Closed Specialty Diagnoses / Procedures Referred By Cara t Referred To Contact Diagnoses Impingement syndrome of right shoulder Biceps tendinitis of right upper extremity Procedures Large Joint Arthrocentesis Brook Singer PA Phone: tel: fax: Referral ID Status Reason Start Date Expiration Date Visits Re quested Visits Authorized [id number] Closed 05/10/2018 11/19/2019 1 1 Reason for Visit * Reason Comments Pain Encounter Details Date Type Department Care Team (Late st Contact Info) Description 05/10/2018 3:30 PM CDT Office Visit [facility] Orthopedics and Sports Medicine [address] [place] [address] [address] [place] [address] Brook Singer PA [address] [place] [address] [address] [place] [address] Impingement syndrome of right shoulder (Primary Dx); Biceps tendinitis of right upper extremity Social History Tobacco Use Types Packs/Day Years Used Date Smoking Tobacco: Never Smokeless Tobacco: Never Alcohol Use Standard Drinks/Week Comments Yes 0 (1 standard drink = 0.6 oz pur e alcohol) Comments No Sex and Gender Information Value Date Recorded Sex Assigned at Not on file 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 Gender Identity Not on file Sexual Orientation Not on file 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 documented as of this encounter Last Filed Vital Signs Vital Sign Reading Time Taken Comments Blood Pressure 123/79 05/10/2018 3:30 PM CDT Pulse 69 05/10/2018 3:30 PM CDT Temperature - - Respiratory Rate - - Oxygen Saturation - - Inhaled Oxygen Concentration - - Weight 98 kg (216 lb) 05/10/2018 3:30 PM CDT Height 160 cm (5' 3 ) 05/10/2018 3:30 PM CDT Body Mass Index 38.26 05/10/2018 3:30 PM CDT documented in this encounter Progress Notes * Brook Singer PA - 05/10/2018 3:30 PM CDTAssociated Order(s): LARGE JOINT ARTHROCENTESIS Post-Procedure Diagnose(s): Impingement syndrome of right shoulder; Biceps tendinitis of right upper extremity Images from the original note were not included. FOLLOW UP VISIT Subjective CHIEF COMPLAINT She had concerns including Pain of the Right Shoulder. HISTORY OF PRESENT ILLNESS Patient presents for FU on right shoulder. Patient was previously seen 6 mo ago and received CSI. Patient notes recently pain has subsided. Patient completed PT and noted relief. She would like a repeat CSI today in clinic. Pain Assessment Pain Assessment: 0-10 Pain Score: 8 MEDICATIONS She has a current medication list which includes the following prescription(s): dicyclomine, famotidine, levothyroxine, alprazolam, and citalopram. REVIEW OF SYSTEMS Review of Systems Constitutional: [...] is not hyperactive. Objective PHYSICAL EXAM BP 123/79 Pulse 69 Ht 160 cm (5' 3 ) Wt 98 kg (216 lb) BMI 38.26 kg/m?? Right shoulder Inspection Erythema: absent Swelling: absent Skin temperature: normal AC joint deformity: absent Surgical scar/wound: present. The surgical scar/wound is healed and no evidence of infection. Thereis no drainage present. Palpation Tenderness is absent. Range of motion The patient does not have pain with range of motion of the right shoulder. Active forward flexion: 150 degrees. Active external rotation at 0 degrees: 60 degrees. Active abduction: 160 degrees. Active adduction: 40 degrees. Strength The patient has 5/5 strength throughout the right shoulder. Shoulder abduction: pain free, 5/5 and painful External rotation 5/5 and pain free Supraspinatus: 5/5 and painful Bicep: 4/5 and pain free Neurovascular Radial pulse: 2+ Median: normal Radial: normal Ulnar: normal Tests Apprehension: negative Belly press: negative Cross arm: positive Hawkin's test: positive Impingement signs: positive Speed's: positive Left shoulder The patient has normal inspection, palpation, range of motion, strength, and stability of the left shoulder. REVIEW OF X-RAYS/STUDIES/LABS Assessment/Plan Олег was seen today for pain. Diagnoses and all orders for this visit: Impingement syndrome of right shoulder Biceps tendinitis of right upper extremity Other orders - Large Joint Arthrocentesis Large Joint (Hip, Knee, Shoulder) Injection Date/Time: 05/10/2018 3:56 PM Performed by: BROOK SINGER Authorized by: BROOK SINGER Large Joint Injection/Aspiration: Consent Given by: Patient Site marked: the procedure site was marked Verbal consent obtained: Yes Supporting Documentation: Indications: Pain Procedure Details: Location: Shoulder Site: R subacromial bursa Needle Size: 22 G Approach: Posterior Medications: 3 mL lidocaine 20 mg/mL (2 %); 80 mg methylPREDNISolone acetate 80 mg/mL PLAN The right shoulder was prepped with ethyl chloride. Using sterile technique the shoulder was then injected with 80mg DepoMedrol and 3cc of 2% lidocaine without epinephrine. A sterile band-aid was applied at the conclusion. The patient tolerated the procedure well. Post Injection instructions provided to patient. Patient to FU in 8 weeks for re-eval at that time if symptoms persist will have MRI ordered. Patient to continue HEP given to her by [facility] PT. VLAD Colin documented in this encounter Plan of Treatment Not on file documented as of this encounter Procedures Procedure Name Priority Date/Time Associated Diagnosis Comments FL ARTHROCENTESIS ASPIR&/INJ MAJOR JT/BURSA W/O US Routine 05/10/2018 3:30 PM CDT Impingement syndrome of right shoulder Biceps tendinitis of right upper extremity documented in this encounter Results * FL ARTHROCENTESIS ASPIR&/INJ MAJOR JT/BURSA W/O US (05/10/2018 3:30 PM CDT) Narrative Brook Singer PA - 05/10/2018 3:30 PM CDT VLAD Colin ? 05/10/2018 ??3:57 PM Large Joint (Hip, Knee, Shoulder) Injection Date/Time: 05/10/2018 3:56 PM Performed by: BROOK SINGER Authorized by: BROOK SINGER Large Joint Injection/Aspiration: ??Consent Given by: ??Patient ??Site marked: the procedure site was marked ?Verbal consent obtained: Yes ?? Supporting Documentation: ??Indications: ??Pain Procedure Details: ??Location: ??Shoulder ??Site: ??R subacromial bursa ??Needle Size: ??22 G ??Approach: ??Posterior ??Medications: ??3 mL lidocaine 20 mg/mL (2 %); 80 mg methylPREDNISolone acetate 80 mg/mL Brook CHU IN CLINIC/BEDSIDE OR DERABLES Final Result documented in this encounter Visit Diagnoses Diagnosis Impingement syndrome of right shoulder- Primary Biceps tendinitis of right upper extremity documented in this encounter Administered Medications Inactive Administered Medications - up to 3 most recent administrations Medication Order MAR Action Action Date Dose Rate Site lidocaine (XYLOCAINE) 20 mg/mL (2 %) injection 3 mL 3 mL, One-Time Injection, Starting on Wed05/10/18 at 1556, For 1 dose, Indications: Administration of Local AnesthesiaIndications:Administratio n of Local Anesthesia Given 05/10/2018 3:56 PM CDT 3 mL methylPREDNISolone acetate (DEPO-medrol) injection 80 mg 80 mg, intra-articular, One-Time Injection, Starting on Wed05/10/18 at 1556, For 1 doseIndications:Impingement syndrome of right shoulder,Biceps tendinitis of right upper extremity Given 05/10/2018 3:56 PM CDT 80 mg documented in this encounter Care Teams Brigadier Relationship Specialty [place] [address] [place] [address] PCP - General 03/15/17 06/20/18 documented as of this encounter
--- OUTSIDE RECORDS SUMMARY | 2024-08-09 23:36 | XMS_ITS | Encounter Summary ---
Author Organization [facility] Address [address] [facility] [address] [place] [address] Care Team Providers Care Lease Analyst Name Role Phone Kelly Olson NP Primary Care Provider [phone]- [phone] Encounter Details Date Type Department Care Team (Late st Contact Info) Description 01/24/2018 Telephone [facility] [address] [facility] [address] [place] [address] Jennifer Zazueta MD [id number] [place] [address] [address] [place] [address] Social History Tobacco Use Types Packs/Day Years Used Date Smoking Tobacco: Never Smokeless Tobacco: Never Alcohol Use Standard Drinks/Week Comments Yes 0 (1 standard drink = 0.6 oz pur e alcohol) Comments No Sex and Gender Information Value Date Recorded Sex Assigned at Not on file 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 documented in this encounter Plan of Treatment Not on file documented as of this encounter Visit Diagnoses Not on filedocumented in this encounter Care Teams Lease Analyst Relationship Specialty [place] [address] [address] PCP - General 03/15/17 06/20/18 documented as of this encounter
--- OUTSIDE RECORDS SUMMARY | 2024-08-09 23:36 | XMS_ITS | Encounter Summary ---
Author Organization [facility] Address [address] [facility] [address] [place] [address] Care Team Providers Care Bottom Precipitator Operator Name Role Phone Kelly Olson NP Primary Care Provider [phone] Encounter Details Date Type Department Care Team (Late st Contact Info) Description 01/21/2018 Telephone [facility] [address] 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 Scheduling dept will contact pt to schedule test,if you have any questions please call [phone] opt 2 or the pt can call to schedule test * Telephone Encounter - Martha Sanchez MA - 01/24/2018 1:38 PM CDT Spoke with pt about lab results and she asked if she could call and schedule her HIDA Scan yet? To Sherry * Telephone Encounter - Martha Sanchez MA - 01/21/2018 12:53 PM CDT PT informed and voiced understanding To Rae and Sherry for scheduling * Telephone Encounter - Martha Sanchez MA - 01/21/2018 12:52 PM CDT ----- Message from Irina Camarillo MA sent at 01/21/2018 12:19 PM CDT ----- ----- Message ----- From: Jennifer Zazueta MD Sent: 01/20/2018 11:44 AM To: Irina Camarillo MA Inform the patient that US GB is normal. I will order HIDA scan with GB EF documented in this encounter Plan of Treatment Not on file documented as of this encounter Visit Diagnoses Not on filedocumented in this encounter Care Teams Bottom Precipitator Operator Relationship Specialty [place] [address] [address] PCP - General 03/15/17 06/20/18 documented as of this encounter
--- OUTSIDE RECORDS SUMMARY | 2024-08-09 23:36 | XMS_ITS | Encounter Summary ---
Author Organization [facility] Address [address] [address] Care Team Providers Care Bearing Maker Name Role Phone Brittani Agosto MD Primary Care Provider [phone] Cassius Ortega NP Primary Care Provider [phone] Encounter Details Date Type Department Care Team (Late st Contact Info) Description 06/30/2018 Orders Only [facility] Health Information Management [address] [place] [address] Scanning, Provider Social History Tobacco Use Types Packs/Day Years Used Date Smoking Tobacco: Never Smokeless Tobacco: Never Alcohol Use Standard Drinks/Week Comments Yes 0 (1 standard drink = 0.6 oz pur e alcohol) PHQ-2 Answer Date Recorded PHQ-2 Score 2 05/15/2019 Comments No Sex and Gender Information Value Date Recorded Sex Assigned at Not on file 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 Gender Identity Not on file Sexual Orientation [...] Procedure Name Priority Date/Time Associated Diagnosis Comments SCAN - RADIOLOGY/IMAGING 06/30/2018 documented in this encounter Results * SCAN - RADIOLOGY/IMAGING (06/30/2018) Anatomical Region Laterality Modality Other us Provider Scanning Final Result documented in this encounter Visit Diagnoses Not on filedocumented in this encounter Additional Health Concerns Infection Onset Date Last Indicated Resolved Time COVID: Suspected 05/03/2020 05/03/2020 05/04/2020 5:04 PM CDT Respiratory Infection (SOLANGE), contact + droplet Comment:Automatically added due to negative COVID-19 result. 05/04/2020 05/04/2020 05/18/2020 3:0 6 AM CDT documented as of this encounter Care Teams Bearing Maker Relationship Specialty Start [place] [address] [address] [place] [address] PCP - General Family Medicine 06/21/18 02/19/19 [place] [address] [address] [place] [address] PCP - General Family Medicine 02/21/19 documented as of this encounter
--- OUTSIDE RECORDS SUMMARY | 2024-08-09 23:36 | XMS_ITS | Encounter Summary ---
Author Organization [facility] Healthcare Address [address] [place] [address] Care Team Providers Care Twenty One Dealer Name Role Phone Brittani Agosto MD Primary Care Provider [phone] Reason for Visit * Diagnostic Imaging (Routine) - Closed Specialty Diagnoses / Procedures Referred By Cara alvarez Referred To Contact Radiology Diagnoses Acute pain of right shoulder Rotator cuff insufficiency of right shoulder Procedures MRI Shoulder Right WO Contrast Nolan Bernard PA Phone: tel: fax: [address] [address] Referral ID Status Reason Start Date Expiration Date Visits Re quested Visits Authorized [id number] Closed 06/21/2018 12/31/2019 1 1 Encounter Details Date Type Department Care Team (Latest Contact Info) Description 07/04/2018 6:46 PM WEATHER STRIP INSTALLER - 07/04/2018 11:59 PM WEATHER STRIP INSTALLER Hospital Encounter [facility] [address] [place] [address] Nolan Bernard PA [address] [place] [address] [address] [place] [address] Cuate Mcmullen MD [address] [place] [address] [address] [place] [address] Discharge Disposition: Discharge to home or self care Social History Tobacco Use Types Packs/Day Years Used Date Smoking Tobacco: Never Smokeless Tobacco: Never Alcohol Use Standard Drinks/Week Comments Yes 0 (1 standard drink = 0.6 oz pur e alcohol) Comments No Sex and Gender Information Value Date Recorded Sex Assigned at Not on file 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 30 tablet 09/09/2017 09/01/2019 citalopram (CeleXA) 40 mg tablet Take 1 tablet (40 mg total) by mouth daily. 30 tablet 5 09/09/2017 09/06/2018 dicyclomine (BENTYL) 10 mg capsule Take 1 capsule (10 mg total) by mouth 4 (four) times a day before meals and nightly. 30 capsule 3 01/26/2018 05/15/2019 famotidine (PEPCID) 20 mg tablet Take 20 mg by mouth daily. 05/15/2019 levothyroxine (SYNTHROID, LEVOTHROID) 150 mcg tablet Take 150 mcg by mouth auto claims adjuster before breakfast. 09/06/2018 traMADol (ULTRAM) 50 mg tablet 1 06/30/2018 05/15/2019 documented as of this encounter Discharge Disposition Disposition Code Departure Means Destination Discharge to home or self care documented in this encounter Plan of Treatment Not on file documented as of this encounter Procedures Procedure Name Priority Date/Time Associated Diagnosis Comments MRI SHOULDER RIGHT WO CONTRAST Schedule Routine, Read Routine (OP Routine) 07/04/2018 7:24 PM WEATHER STRIP INSTALLER Acute pain of right shoulder Rotator cuff insufficiency of right shoulder documented in this encounter Results * MRI Shoulder Right WO Contrast (07/04/2018 7:24 PM WEATHER STRIP INSTALLER) Anatomical Region Laterality Modality Upper Extremities Right Magnetic Reson ance 07/04/2018 8:56 PM WEATHER STRIP INSTALLER Impressions 07/04/2018 8:57 PM WEATHER STRIP INSTALLER 1. ??Tendinosis or partial tear of the supraspinatus tendon. 2. ??Osteoarthrosis of the acromioclavicular joint. Electronically signed by: Jani Guevara M.D. Narrative 07/04/2018 8:57 PM WEATHER STRIP INSTALLER EXAM: Right shoulder MRI HISTORY: Pain in right shoulder. COMPARISON: 09/03/2014 TECHNIQUE: Axial proton density SPAIR and T1; Coronal T2 fat sat, proton density, ? and proton density SPAIR; Sagittal T2. FINDINGS: Again noted is thickening and increased signal in the supraspinous tendon suggesting tendinosis or partial tear. ??The presence of fluid in the subacromial bursa suggest a tear. ??The subscapularis, teres minor tendons appear intact. ??The long head of the biceps is maintained in an anatomic location. ??No muscular atrophy is noted. No fluid is seen in the subacromial or subdeltoid bursa. ??Spurring of the acromioclavicular joint is seen. ??No obvious abnormality of the labral capsular complex is seen. Procedure Note Jani Guevara MD - 07/04/2018 EXAM: Right shoulder MRI HISTORY: Pain in right shoulder. COMPARISON: 09/03/2014 TECHNIQUE: Axial proton density SPAIR [...] tendon. 2. Osteoarthrosis of the acromioclavicular joint. Electronically signed by: Jani Guevara M.D. Nolan CHU IML[facility] MRI PROCEDURES Final Re sult documented in this encounter Visit Diagnoses Not on filedocumented in this encounter Care Teams Twenty One Dealer Relationship Specialty Start [place] [address] [address] PCP - General Family Medicine 06/21/18 02/19/19 documented as of this encounter
--- OUTSIDE RECORDS SUMMARY | 2024-08-09 23:36 | XMS_ITS | Encounter Summary ---
Author Organization [facility] Address [address] [facility] [address] [place] [address] Care Team Providers Care Jewelry Engraver Name Role Phone Kelly Olson NP Primary Care Provider +1- [phone] Encounter Details Date Type Department Care Team (Late st Contact Info) Description 01/26/2018 Telephone [facility] [place] [facility] [address] [facility] [address] [place] [address] Angelique Zazueta [place] [id number] [place] [address] [address] [place] [address] Social History Tobacco Use Types Packs/Day Years Used Date Smoking Tobacco: Never Smokeless Tobacco: Never Alcohol Use Standard Drinks/Week Comments Yes 0 (1 standard drink = 0.6 oz pur e alcohol) Comments No Sex and Gender Information Value Date Recorded Sex Assigned at Not on file 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 30 capsule 3 01/26/2018 10/14/201 9 documented in this encounter Miscellaneous Notes * Telephone Encounter - Irina Camarillo MA - 01/26/2018 2:29 PM CDT LMOR to notify pt that rx has been sent to pharm. * Addendum Note - Angelique Zazueta MD - 01/26/2018 1:55 PM CDTAddended by: ANGELIQUE ZAZUETA on: 01/26/2018 01:55 PM Modules accepted: Orders * Telephone Encounter - Angelique Zazutea MD - 01/26/2018 1:53 PM CDT I'll prescribe bentyl * Telephone Encounter - Martha Sanchez MA - 01/26/2018 8:22 AM CDT NIDHI 01/19/18 NOV 03/09/18 Pt informed and voiced understanding. Pt stated she has had diarrhea since the test yesterday. She is also cramping and very bloated Is there something she can take? Please advise * Telephone Encounter - Martha Sanchez MA - 01/26/2018 8:20 AM CDT ----- Message from Angelique Zazueta MD sent at 01/25/2018 2:54 PM CDT ----- Inform the patient that hepatobiliary scan revealed no evidence of acute gallbladder disease. The ejection fraction is borderline low (36%) documented in this encounter Plan of Treatment Not on file documented as of this encounter Visit Diagnoses Not on filedocumented in this encounter Care Teams Jewelry Engraver Relationship Specialty [place] [address] [address] PCP - General 03/15/17 06/20/18 documented as of this encounter
--- OUTSIDE RECORDS SUMMARY | 2024-08-09 23:36 | XMS_ITS | Encounter Summary ---
Author Organization [facility] Address [address] [facility] [address] [place] [address] Care Team Providers Care Commercial Credit Head Name Role Phone Kelly Olson NP Primary Care Provider +1- [phone] Encounter Details Date Type Department Care Team (Late st Contact Info) Description 01/24/2018 Orders Only [facility] [address] [facility] [address] [place] [address] [place] [address] 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
--- OUTSIDE RECORDS SUMMARY | 2024-08-09 23:36 | XMS_ITS | Encounter Summary ---
Author Organization [facility] Address [address] [facility] [address] [place] [address] Care Team Providers Care Real Estate Office Manager Name Role Phone Brittani Agosto MD Primary Care Provider +1 -[phone] Reason for Referral * Diagnostic Imaging (Routine) - Closed Specialty Diagnoses / Procedures Referred By Cara alvarez Referred To Contact Radiology Diagnoses Acute pain of right shoulder Rotator cuff insufficiency of right shoulder Procedures MRI Shoulder Right WO Contrast Nolan Bernard PA Phone: tel: fax: [address] [address] Referral ID Status Reason Start Date Expiration Date Visits Re quested Visits Authorized [id number] Closed 06/21/2018 12/31/2019 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 Reason for Visit * Reason Comments Follow-up Encounter Details Date Type Department Care Team (Late st Contact Info) Description 06/21/2018 3:00 PM OTR 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 Office Visit [facility] and [facility] Medicine [address] [facility] [address] [place] [id number] Nolan Bernard PA [address] [place] [address] [address] [place] [address] Acute pain of right shoulder (Primary Dx); Rotator cuff insufficiency of right shoulder; Impingement syndrome of right shoulder; Biceps tendinitis of right upper extremity Social History Tobacco Use Types Packs/Day Years Used Date Smoking Tobacco: Never Smokeless Tobacco: Never Alcohol Use Standard Drinks/Week Comments Yes 0 (1 standard drink = 0.6 oz pur e alcohol) Comments No Sex and Gender Information Value Date Recorded Sex Assigned at Not on file Legal Sex 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 Gender Identity Not on file Sexual Orientation Not on file 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 documented as of this encounter Last Filed Vital Signs Vital Sign Reading Time Taken Comments Blood Pressure 124/69 06/21/2018 3:40 PM 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 FOLLOW UP VISIT Subjective CHIEF COMPLAINT She had concerns including Follow-up of the Right Shoulder. HISTORY OF PRESENT ILLNESS Pt is here after CSI and PT. She has not improved and is using OTC tylenol and ibuprofen for pain control Pain Assessment Pain Assessment: 0-10 Pain Score: 6 MEDICATIONS She has a current medication list [...] dizziness, light-headedness and headaches. Objective PHYSICAL EXAM BP 124/69 (BP Location: Left arm, Patient Position: Sitting) Pulse 67 Ht 160 cm (5' 3 ) Wt 98kg (216 lb) BMI 38.26 kg/m?? Right shoulder [...] X-RAYS/STUDIES/LABS Assessment/Plan Олег was seen today for follow-up. Diagnoses and all orders for this visit: Acute pain of right shoulder - MRI Shoulder Right WO Contrast; Future Rotator cuff insufficiency of right shoulder - MRI Shoulder Right WO Contrast; Future PLAN I would like to obtain an MRI of the right and I will call with results. She will follow up with Dr Mcmullen. 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 ??Tendinosis or partial tear of the supraspinatus tendon. 2. ??Osteoarthrosis of the acromioclavicular joint. Electronically signed by: Jani Guevara M.D. Narrative 07/04/2018 8:57 PM OTR 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 EXAM: Right shoulder MRI HISTORY: Pain in [...] signed by: Jani Guevara M.D. Nolan [facility] MRI PROCEDURES Final Re sult documented in this encounter Visit Diagnoses Diagnosis Acute pain of right shoulder- Primary Rotator cuff insufficiency of right shoulder Impingement syndrome of right shoulder Biceps tendinitis of right upper extremity documented in this encounter Care Teams Real Estate Office Manager Relationship Specialty [place] [address] [address] [place] [id number] PCP - General Family Medicine 06/21/18 02/19/19 documented as of this encounter
--- OUTSIDE RECORDS SUMMARY | 2024-08-09 23:36 | XMS_ITS | Encounter Summary ---
Author Organization [facility] Address [address] [place] [address] Care Team Providers Care Network Support Manager Name Role Phone Kelly Olson NP Primary Care Provider +1- [phone] Encounter Details Date Type Department Care Team (Late st Contact Info) Description 01/20/2018 9:45 AM CDT Lab [address] [address] Right upper quadrant abdominal pain Social History Tobacco Use Types Packs/Day Years Used Date Smoking Tobacco: Never Smokeless Tobacco: Never Alcohol Use Standard Drinks/Week Comments Yes 0 (1 standard drink = 0.6 oz pur e alcohol) Comments No Sex and Gender Information Value Date Recorded Sex Assigned at Not on file 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 Gender Identity Not on file Sexual Orientation Not on file 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 documented as of this encounter Plan of Treatment Not on file documented as of this encounter Procedures Procedure Name Priority Date/Time Associated Diagnosis Comments DIFFERENTIAL AUTO Routine 01/20/2018 9:3 7 AM CDT Right upper quadrant abdominal pain CBC WITH AUTO DIFFERENTIAL Routine 01/20/2018 9:37 AM CDT Right upper quadrant abdominal pain HEPATIC FUNCTION PANEL Routine 01/20/2018 9:37 AM CDT Right upper quadrant abdominal pain documented in this encounter Results * Differential, auto (01/20/2018 9:37 AM CDT) Neutrophil abs 4.3 1.7 - 6.5 K/cumm [facility] Imm gran abs 0.0 0.0 - 0.1 K/cumm [facility] Lymphocyte abs 2.4 0.8 - 3.3 K/cumm [facility] Monocyte abs 0.6 0.2 - 0.8 K/cumm [facility] Eosinophil abs 0.1 0.0 - 0.5 K/cumm [facility] Basophil abs 0.0 0.0 - 0.1 K/cumm [facility] Neutrophil pct 58.6 % [facility] Comment: Interpretive Data Percent cell count reference ranges are not reported, since discordance with absolute values may lead to misinterpretation of CBC data. Current Interpretive Data was last revised on 2017. Imm gran pct 0.3 % [facility] Comment: Interpretive Data Percent cell count reference ranges are not reported, since discordance with absolute values may lead to misinterpretation of CBC data. Current Interpretive Data was last revised on 2017. Lymphocyte pct 32.2 % [facility] Comment: Interpretive Data Percent cell count reference ranges are not reported, since discordance with absolute values may lead to misinterpretation of CBC data. Current Interpretive Data was last revised on 2017. Monocyte pct 7.7 % [facility] Comment: Interpretive Data Percent cell count reference ranges are not reported, since discordance with absolute values may lead to misinterpretation of CBC data. Current Interpretive Data was last revised on 2017. Eosinophil pct 0.8 % [facility] Comment: Interpretive Data Percent cell count reference ranges are not reported, since discordance with absolute values may lead to misinterpretation of CBC data. Current Interpretive Data was last revised on 2017. Basophil pct 0.4 % [facility] Comment: Interpretive Data Percent cell count reference ranges are not reported, since discordance with absolute values may lead to misinterpretation of CBC data. Current Interpretive Data was last revised on 2017. Blood specimen (specimen) 01/20/2018 9:37 AM CDT 01/20/2018 10:14 AM CDT Narrative [facility] - 01/20/2018 10:37 AM CDT Jennifer Zazueta MD LAB BLOOD ORDERABLES Fi nal Result Performing Organization Address [facility] de Phone Number [facility] [address] Department [place], [place] [id number] * (ABNORMAL) CBC with auto differential (01/20/2018 9:37 AM CDT) WBC 7.4 3.8 - 9.9 K/cumm [facility] RBC 3.87(L) 3.90 - 5.20 M/cumm [facility] Hgb 11.2(L) 11.9 - 15.5 g/dL [facility] Hct 35.0(L) 35.6 - 45.5 % [facility] MCV 90.4 81.3 - 96.4 fL [facility] MCH 28.9 27.1 - 33.3 pg [facility] MCHC 32.0(L) 32.3 - 35.7 g/dL [facility] RDW CV 13.4 11.1 - 14.9 % [facility] RDW SD 44.3 35.7 - 48.1 fL [facility] Plt 248 150 - 400 K/cumm [facility] MPV 9.2 9.1 - 12.3 fL [facility] NRBC abs 0.00 0.00 - 0.01 K/cumm [facility] Blood specimen (specimen) 01/20/2018 9:37 AM CDT 01/20/2018 10:14 AM CDT Narrative [facility] - 01/20/2018 10:37 AM CDT Jennifer Zazueta MD LAB BLOOD ORDERABLES Fi nal Result Performing Organization Address [facility] Co de Phone Number [facility] [address] Department [place], [place] [id number] * Hepatic function panel (01/20/2018 9:37 AM CDT) AST 20 7 - 40 Units/L [facility] ALT 16 1 - 45 Units/L [facility] Alk phos 45 30 - 110 Units/L [facility] Bilirubin, total 0.50 0.10 - 1.30 mg/dL [facility] Bilirubin, direct <0.10 0.00 - 0.40 mg/dL [facility] Protein, pl 6.9 6.0 - 8.3 g/dL [facility] Albumin 3.8 3.2 - 4.8 g/dL [facility] Blood specimen (specimen) 01/20/2018 9:37 AM CDT 01/20/2018 10:14 AM CDT Narrative [facility] - 01/20/2018 10:52 AM CDT us Jennifer Zazueta MD LAB BLOOD ORDERABLES Fi nal Result Performing Organization Address City/State/[facility] Co de Phone Number [facility] [address] [place] [address] documented in this encounter Visit Diagnoses Diagnosis Right upper quadrant abdominal pain documented in this encounter Care Teams Network Support Manager Relationship Specialty [place] [address] [address] PCP - General 03/15/17 06/20/18 documented as of this encounter
--- OUTSIDE RECORDS SUMMARY | 2024-08-09 23:36 | XMS_ITS | Encounter Summary ---
Author Organization [facility] Address [address] [facility] [address] [place] [address] Care Team Providers Care Contracts Specialist Name Role Phone Kelly Olson NP Primary Care Provider +1- [phone] Encounter Details Date Type Department Care Team (Late st Contact Info) Description 01/19/2018 Telephone [facility] [address] [facility] [address] [place] [address] Jennifer Zazueta [place] [id number] [place] [address] [address] [place] [address] Social History Tobacco Use Types Packs/Day Years Used Date Smoking Tobacco: Never Smokeless Tobacco: Never Alcohol Use Standard Drinks/Week Comments Yes 0 (1 standard drink = 0.6 oz pur e alcohol) Comments No Sex and Gender Information Value Date Recorded Sex Assigned at Not on file 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 Pt was given the scheduling dept phone# of [phone] opt 2 for test scheduling documented in this encounter Plan of Treatment Not on file documented as of this encounter Visit Diagnoses Not on filedocumented in this encounter Care Teams Contracts Specialist Relationship Specialty [place] [address] [place] [address] PCP - General 03/15/17 06/20/18 documented as of this encounter
--- OUTSIDE RECORDS SUMMARY | 2024-08-09 23:36 | XMS_ITS | Encounter Summary ---
Author Organization [facility] Address [address] [facility] [address] [place] [address] Care Team Providers Care Rat Poisoner Name Role Phone Kelly Olson NP Primary Care Provider +1- [phone] Reason for Referral * Diagnostic Imaging (Routine) - Closed Specialty Diagnoses / Procedures Referred By Contac t Referred To Contact Diagnoses Right upper quadrant abdominal pain Procedures US RUQ Jennifer Zazueta MD Phone: tel: fax: [facility] [id number] [place] [phone] Referral ID Status Reason Start Date Expiration Date Visits Re quested Visits Authorized [id number] Closed 01/19/2018 07/31/2019 1 1 Reason for Visit * Reason Comments Epigastric Pain Bloated Encounter Details Date Type Department Care Team (Late st Contact Info) Description 01/19/2018 11:30 AM CDT Office Visit [facility] [address] 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 documented as of this encounter Last Filed Vital Signs Vital Sign Reading Time Taken Comments Blood Pressure 116/64 01/19/2018 11:39 AM CDT Pulse 65 01/19/2018 11:39 AM CDT Temperature - - Respiratory Rate 12 01/19/2018 11:39 AM CDT Oxygen Saturation - - Inhaled Oxygen Concentration - - Weight 98.1 kg (216 lb 3.2 oz) 01/19/2018 11:39 AM CDT Height 161.3 cm (5' 3.5 ) 01/19/2018 11:39 AM CD T Body Mass Index 37.7 01/19/2018 11:39 AM CDT documented in this encounter Patient Instructions * Patient Instructions* Jennifer Zazueta MD - 01/19/2018 11:30 AM CDT Patient Education Gas and Bloating WHAT YOU NEED TO KNOW: What is gas and bloating? Gas forms inside your body when you eat certain foods or swallow too muchair. Bloating is the tight, full feeling you get from too much gas. What causes gas and bloating? ?? Vegetables, such as beans, cabbage, and broccoli ?? Starches, such as potatoes, corn, wheat, and pasta ?? Dairy products ?? High-fiber cereals and breads ?? High-fat foods ?? Carbonated drinks ?? Chewing gum, smoking, and loose dentures What are the symptoms of gas and bloating? ?? Abdominal pain ?? Bloating that is worse during the day and better at night ?? Burping or passing gas more often than usual ?? Constipation How is gas and bloating diagnosed? Your healthcare provider will ask about what you eat and examineyour abdomen. You may need any of the following tests to check for a medical condition that may be causing your symptoms: ?? Blood tests: You may need blood taken to give caregivers information about how your body is working. The blood may be taken from your hand, arm, or IV. ?? Imaging tests: These tests can help healthcare providers find a blockage in your bowels. ?? Endoscopy: This test uses a scope to see the inside of your digestive system. A scope is a long,flexible tube with a light and tiny camera on the end. This test is used to check for blockage or other problems. Samples may be taken from your bowels and sent to a lab for tests. How is gas and bloating treated? Gas relief medicines may help decrease gas pain and bloating. These can be bought without a doctor's order. How do I manage my symptoms? ?? Keep a log: Write down what you eat and drink and how often you pass gas each day. ?? Eat and drink slowly: Choose foods that do not cause gas, such as meat, poultry, fish, and eggs.Avoid high-fat foods and vegetables or starches that can cause gas. Do not drink carbonated drinks.Add foods back into your diet one at a time after 1 week. If the food causes symptoms, avoid it. ?? Exercise: Exercise can help relieve gas. ?? Do not smoke or chew gum: This can cause you to swallow air. ?? Make sure your dentures fit properly: Have your dentures fixed if they are loose. Loose denturescan cause you to swallow too much air. When should I call my healthcare provider? ?? You have a fever. ?? You vomit or have diarrhea. ?? You lose weight without trying. ?? You have questions or concerns about your condition or care. When should I seek immediate care? ?? You have severe abdominal pain. ?? You have blood in your bowel movement. CARE AGREEMENT: You have the right to help plan your care. Learn about your health condition and how it may be treated. Discuss treatment options with your caregivers to decide what care you want to receive. You always have the right to refuse treatment. The above information is an biological science aide only. It is not intended as medical advice for individual conditions or treatments. Talk to your doctor, nurse or pharmacist before following any medical regimen to see if it is safe and effective for you. ?? 2016 [employer] Information is for End User's use only and may not be sold, redistributed or otherwise used for commercial purposes. All illustrations and images included in CareNotes?? are the copyrighted property of [employer] or [employer]. documented in this encounter Progress Notes * Jennifer Zazueta MD - 01/19/2018 11:30 AM CDT Images from the original note were not included. [facility] Gastroenterology Subjective/Objective Patient ID: Олег Paz is a 42 y.o. White female. Assessment/Plan Diagnoses and all orders for this visit: Bloating (Primary) Assessment & Plan: Worsening. She was counseled about diet. Counseled to avoid dairy products and certain green vegetables such as broccoli, brussel sprouts. Right upper quadrant abdominal pain Assessment & Plan: Recurrent abdominal pain. Associated with tenderness. Differential diagnosis includes GB disease, biliary dyskinesia vs IBS However, US GB (2017) was negative for stones or wall thickness. Plan: Request Repeat US RUQ, HFP, CBC. If US negative, I will obtain HIDA scan with GB EF. Orders: - US RUQ; Future - Hepatic function panel; Future - CBC with auto differential; Future Advise High fiber diet. Avoid use of nonsteroidal antiinflammatory drugs. Weight loss is recommended/regular exercise. Avoid excessive alcohol ingestion and cigarette smoking. Chief Complaint Epigastric Pain and Bloated Abdominal Pain This is a recurrent problem. The current episode started in the past 7 days. The problem occurs constantly. The problem has been gradually worsening. Associated symptoms include abdominal pain. Pertinent negatives include no chest pain, chills, fever, nausea or vomiting. Associated symptoms comments: +bloating. The symptoms are aggravated by stress. She has tried nothing for the symptoms. Patient Active Problem List Diagnosis ??? Adiposity ??? depression ??? Vitamin D deficiency ??? Impaired fasting glucose ??? Hyperlipidemia ??? Hypothyroidism ??? Right upper quadrant abdominal pain ??? Well female exam with routine gynecological exam ??? Screening for malignant neoplasm of cervix ??? Anxiety ??? Screening mammogram, encounter for ??? BMI 37.0-37.9, adult ??? Bloating Allergies Allergen Reactions ??? Cefazolin Blisters and Redness Reaction: redness, blister, ??? Sertraline Muscle pain Reaction: muscle cramps, ??? Bacitracin Unknown ??? Lidocaine Unknown ??? Neomycin Unknown ??? Polymyxin B Unknown ??? Pramoxine Unknown Past Surgical History: Procedure Laterality Date ??? [...] Hyperlipidemia; ??? Skin cancer Sister Cancer, skin; HOME MEDICATIONS : citalopram (CeleXA) 40 mg tablet famotidine (PEPCID) 20 mg tablet levothyroxine (SYNTHROID, LEVOTHROID) 150 mcg tablet ALPRAZolam (XANAX) 0.5 mg tablet Review of Systems Constitutional: Negative for appetite change, chills, fever and unexpected weight change. Cardiovascular: Negative for chest pain. Gastrointestinal: Positive for abdominal pain. Negative for abdominal distention, anal bleeding, blood in stool, constipation, diarrhea, nausea, rectal pain and vomiting. +bloating Genitourinary: Negative for dysuria. Skin: Negative for color change. Vitals: 01/19/18 1139 BP: 116/64 Pulse: 65 Resp: 12 Body mass index is 37.7 kg/m??. Physical Exam Constitutional: She appears well-developed. HENT: Head: Normocephalic. Mouth/Throat: Oropharynx is clear and moist. Eyes: Conjunctivae are normal. Cardiovascular: Normal heart sounds. Pulmonary/Chest: Breath sounds normal. Abdominal: Soft. Bowel sounds are normal. She exhibits no shifting dullness, no fluid wave, no ascites, no pulsatile midline mass and no mass. There is no hepatosplenomegaly. There is no tenderness. No hernia. Nursing note and vitals reviewed. LABS Lab Results Component Value Date WBC 11.71 (H) 09/27/2017 HGB 12.2 09/27/2017 HCT 37.2 09/27/2017 MCV 87.9 09/27/2017 Chemistry Component Value Date/Time SODIUM 134 (L) 09/27/2017 1340 POTASSIUM 3.5 09/27/2017 1340 CHLORIDE 100 09/27/2017 1340 CO2 25 09/27/2017 1340 BUNSER 13 09/27/2017 1340 CREATININE 0.79 09/27/2017 1340 GLUCOSE 112 09/27/2017 1340 Component Value Date/Time CALCIUM 9.5 09/27/2017 1340 ALKPHOS 47 09/27/2017 1340 AST 17 09/27/2017 1340 ALT 14 09/27/2017 1340 BILITOT 0.50 09/27/2017 1340 Lab Results Component Value Date ALT 14 09/27/2017 AST 17 09/27/2017 ALKPHOS 47 09/27/2017 BILITOT 0.50 09/27/2017 Lab Results Component Value Date AMYLASE 50 02/17/2017 IMAGING STUDIES Colonoscopy (January 2017) normal. Random mucosa biopsy benign. EGD revealed esophagitis and gastritis. Gastric and duodenal biopsies negative. Jennifer Zazueta MD documented in this encounter Miscellaneous Notes * Assessment & Plan Note - Jennifer Zazueta MD - 01/19/2018 8:46 PM CDT Associated Problem(s): Bloating Worsening. She was counseled about diet. Counseled to avoid dairy products and certain green vegetables such as broccoli, brussel sprouts. * Assessment & Plan Note - Jennifer Zazueta MD - 01/19/2018 8:40 PM CDT Associated Problem(s): Right upper quadrant abdominal pain Recurrent abdominal pain. Associated with tenderness. Differential diagnosis includes GB disease, biliary dyskinesia vs IBS However, US GB (2017) was negative for stones or wall thickness. Plan: Request Repeat US RUQ, HFP, CBC. If US negative, I will obtain HIDA scan with GB EF. documented in this encounter Plan of Treatment Not on file documented as of this encounter Results * (ABNORMAL) CBC with auto differential (01/20/2018 9:37 AM CDT) WBC 7.4 3.8 - 9.9 K/cumm [facility] RBC 3.87(L) 3.90 - 5.20 M/cumm [facility] Hgb 11.2(L) 11.9 - 15.5 g/dL [facility] Hct 35.0(L) 35.6 - 45.5 % [facility] MCV 90.4 81.3 - 96.4 fL [facility] MCH 28.9 27.1 - 33.3 pg [facility] MCHC 32.0(L) 32.3 - 35.7 g/dL [facility] RDW CV 13.4 11.1 - 14.9 % [facility] RDW SD 44.3 35.7 - 48.1 fL [facility] Plt 248 150 - 400 K/cumm [facility] MPV 9.2 9.1 - 12.3 fL [facility] NRBC abs 0.00 0.00 - 0.01 K/cumm [facility] Blood specimen (specimen) 01/20/2018 9:37 AM CDT 01/20/2018 10:14 AM CDT Narrative [facility] - 01/20/2018 10:37 AM CDT Jennifer Zazueta MD LAB BLOOD ORDERABLES [facility] Result Performing Organization Address [facility] Co de Phone Number EDGAR FLOR [address] [address] [facility] [place] [address] [place] [address] * Hepatic function panel (01/20/2018 9:37 AM [...] [facility] - 01/20/2018 10:52 AM CDT Jennifer Zazueta MD LAB BLOOD ORDERABLES [facility] Result Performing Organization Address [facility] de Phone Number EDGAR FLOR [address] [address] [facility] [place] [address] [place] [address] * US RUQ (01/20/2018 9:35 AM CDT) Anatomical Region Laterality Modality Abdomen N/A Ultrasound 01/20/2018 10:5 0 AM CDT Impressions 01/20/2018 10:53 AM CDT Normal gallbladder and biliary tree. ??Borderline hepatomegaly. Electronically signed by: Jostin Barger M.D. Narrative 01/20/2018 10:53 AM CDT RESULT: HISTORY: The patient is a 42-year-old female who presents with right upper quadrant pain. ??Comparison made with the previous study dated 01/25/2017. TECHNIQUE: Supine and erect view of the abdomen. FINDINGS: The gallbladder is normal in appearance with no calculi within it. No gallstones seen nor is any gallbladder wall thickening or pericholecystic fluid. ??Biliary tree not dilated with the common duct measuring 4 mm in diameter. The liver is enlarged measuring 20.8 cm in sagittal length. Echotexture is normal. ??Portal vein patent with normal hepatopedal flow within it. Pancreas normal in size and echotexture. ??The right kidney measures 10.8 x 4.3 cm in sagittal length and has a normal sonographic appearance. ?? The abdominal aorta and inferior vena cava are normal in appearance. ??No ascites seen. Procedure Note Jostin Barger MD - 01/20/2018 RESULT: HISTORY: The patient is a 42-year-old female who presents with right upper quadrant pain. Comparison made with the previous study dated 01/25/2017. TECHNIQUE: Supine and erect view of the abdomen. FINDINGS: The gallbladder is normal in appearance with no calculi within it. No gallstones seen nor is any gallbladder wall thickening or pericholecystic fluid. Biliary tree not dilated with the common duct measuring 4 mm in diameter. The liver is enlarged measuring 20.8 cm in sagittal length. Echotexture is normal. Portal vein patent with normal hepatopedal flow within it. Pancreas normal in size and echotexture. The right kidney measures 10.8 x 4.3 cm in sagittal length and has a normal sonographic appearance. The abdominal aorta and inferior vena cava are normal in appearance. No ascites seen. IMPRESSION: Normal gallbladder and biliary tree. Borderline hepatomegaly. Electronically signed by: Jostin Barger M.D. us Jennifer Zazueta MD IMG US PROCEDURES Final Result documented in this encounter Visit Diagnoses Diagnosis Bloating- Primary Flatulence, eructation, and gas pain Right upper quadrant abdominal pain Right upper quadrant abdominal pain Right upper quadrant abdominal pain documented in this encounter Historical Medications * This list may reflect changes made after this encounter. levothyroxine (SYNTHROID, LEVOTHROID) 150 mcg tablet Take 150 mcg by mouth cd storage and materials make up helper before breakfast. 09/06/2018 added in this encounter Care Teams Rat Poisoner Relationship Specialty [place] [address] [facility] [address] [place] [address] PCP - General 03/15/17 06/20/18 documented as of this encounter
--- OUTSIDE RECORDS SUMMARY | 2024-08-09 23:36 | XMS_ITS | Encounter Summary ---
Author Organization [facility] Address [address] [facility] [address] [place] [address] Care Team Providers Care Roll Grinder Name Role Phone Kelly Olson NP Primary Care Provider +1- [phone] Reason for Visit * Reason Onset Date Comments MRI order 05/03/2018 Encounter Details Date Type Department Care Team (Late st Contact Info) Description 05/03/2018 Telephone [facility] Orthopedics and Sports Medicine [address] [facility] [address] [place] [address] Cuate Mcmullen MD [address] [place] [address] [address] [facility] [address] [place], [place] [id number] MRI order Social History Tobacco Use Types Packs/Day Years Used Date Smoking Tobacco: Never Smokeless Tobacco: Never Alcohol Use Standard Drinks/Week Comments Yes 0 (1 standard drink = 0.6 oz pur e alcohol) Comments No Sex and Gender Information Value Date Recorded Sex Assigned at Not on file 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 * Telephone Encounter - Eva Spann MA - 05/03/2018 1:18 PM CDT Insurance company is not going to authorize her MRI without specific information. I would say she needs to be seen again for insurance purposes, see what has changed, etc....Thank you * Telephone Encounter - Alise Arzate - 05/03/2018 1:00 PM CDT Patient was seen in Sep for her Right shoulder. She would like to be seen again as she is still in pain. Per Dr Mcmullen's note he would like patient to get an MRI, is that something that can be ordered prior to an updated office visit or does she need to see a PA first? She updated her insurance since last being seen here as well. Please advise. documented in this encounter Plan of Treatment Not on file documented as of this encounter Visit Diagnoses Not on filedocumented in this encounter Care Teams Roll Grinder Relationship Specialty [place] [address] [address] PCP - General 03/15/17 06/20/18 documented as of this encounter
--- OUTSIDE RECORDS SUMMARY | 2024-08-09 23:36 | XMS_ITS | Encounter Summary ---
Author Organization [facility] Address [address] [place] [address] Care Team Providers Care Aeronautical Inspector Name Role Phone Kelly Olson NP Primary Care Provider +1- [phone] Reason for Visit * Diagnostic Imaging (Routine) - Closed Specialty Diagnoses / Procedures Referred By Contac t Referred To Contact Diagnoses Right upper quadrant pain Procedures NM Hepatobiliary Imaging W Pharmaceutical Intervention NM Hepatobiliary Imaging W Gallbladder Jennifer Zazueta MD Phone: tel: fax: [address] [address] Referral ID Status Reason Start Date Expiration Date Visits Re quested Visits Authorized [id number] Closed 01/24/2018 08/05/2019 1 1 Encounter Details Date Type Department Care Team (Late st Contact Info) Description 01/25/2018 9:00 AM CDT - 01/25/2018 11:59 PM CDT Hospital Encounter [facility] Nuclear Medicine [address] [place] [address] [place] [id number] [address] Right upper quadrant pain Discharge Disposition: Discharge to home or self care Social History Tobacco Use Types Packs/Day Years Used Date Smoking Tobacco: Never Smokeless Tobacco: Never Alcohol Use Standard Drinks/Week Comments Yes 0 (1 standard drink = 0.6 oz pur e alcohol) Comments No Sex and Gender Information Value Date Recorded Sex Assigned at Not on file 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 30 tablet 5 09/09/2017 09/06/2018 famotidine (PEPCID) 20 mg tablet Take 20 mg by mouth daily. 05/15/2019 levothyroxine (SYNTHROID, LEVOTHROID) 150 mcg tablet Take 150 mcg by mouth e merchant before breakfast. 09/06/2018 documented as of this encounter Discharge Disposition Disposition Code Departure Means Destination Discharge to home or self care documented in this encounter Plan of Treatment Not on file documented as of this encounter Procedures Procedure Name Priority Date/Time Associated Diagnosis Comments NM HEPATOBILIARY IMAGING W PHARMACEUTICAL INTERVENTION Schedule Routine, Read Routine (OP Routine) 01/25/2018 1:07 PM CDT Right upper quadrant pain documented in this encounter Results * NM Hepatobiliary Imaging W Pharmaceutical Intervention (01/25/2018 1:07 PM CDT) Anatomical Region Laterality Modality Body N/A Nuclear Medicine 01/25/2018 2:34 PM CDT Impressions 01/25/2018 2:39 PM CDT 1. No scintigraphic finding to suggest acute cholecystitis. 2. Lower normal gallbladder ejection fraction at 36%. Electronically signed by: Jessica Lilly M.D. Narrative 01/25/2018 2:39 PM CDT Examination: Hepatobiliary scintigraphy with sincalide administration Radiopharmaceutical: 7.37 mCi Tc-99m mebrofenin History: Right upper quadrant abdominal pain Comparison: Abdominal sonogram dated 01/20/2018. Findings: Following intravenous administration of radiotracer, sequential abdominal images were obtained through 60 minutes. There is prompt, uniform accumulation of the tracer by the liver. There is normal filling of the intrahepatic ducts, common bile duct and gallbladder and normal excretion of the tracer into the duodenum. ??Gallbladder was 1st visualized 15 minutes through the examination. Following administration of CCK, sequential images of the abdomen were obtained for additional 60 minutes. ??Gallbladder ejection fraction is 36%. Procedure Note Jessica Lilly MD - 01/25/2018 Examination: Hepatobiliary scintigraphy with sincalide administration Radiopharmaceutical: 7.37 mCi Tc-99m mebrofenin History: Right upper quadrant abdominal pain Comparison: Abdominal sonogram dated 01/20/2018. Findings: Following intravenous administration of radiotracer, sequential abdominal images were obtained through 60 minutes. There is prompt, uniform accumulation of the tracer by the liver. There is normal filling of the intrahepatic ducts, common bile duct and gallbladder and normal excretion of the tracer into the duodenum. Gallbladder was 1st visualized 15 minutes through the examination. Following administration of CCK, sequential images of the abdomen were obtained for additional 60 minutes. Gallbladder ejection fraction is 36%. IMPRESSION: 1. No scintigraphic finding to suggest acute cholecystitis. 2. Lower normal gallbladder ejection fraction at 36%. Electronically signed by: Jessica Lilly M.D. Jennifer Zazueta MD [facility] PROCEDURES Final Result documented in this encounter Visit Diagnoses Diagnosis Right upper quadrant pain Abdominal pain, right upper quadrant documented in this encounter Administered Medications Inactive Administered Medications - up to 3 most recent administrations Medication Order MAR Action Action Date Dose Rate Site sincalide (KINEVAC) 2 mcg in sodium chloride 0.9% 100 mL IVPB 2 mcg (rounded from 1.962 mcg = 0.02 mcg/kg ? 98.1 kg), intravenous, Administer over 60 Minutes, Once, On 01/25/18 at 1345, For 1 dose New Bag 01/25/2018 11:00 AM CDT 2 mcg Right Antecubital tc-99m mebrofenin (choletec) injection 7.37 millicurie 7.37 millicurie, intravenous, Once in imaging, radiopharmaceutical, Starting on Wed01/25/18 at 1005, For 1 dose, Indications: Diagnostic RadiographyIndicatio ns:Diagnostic Radiography Given 01/25/2018 9:30 AM CDT 7.37 millicuries documented in this encounter Orders Medications Ordered That Segundo ht Not Have Been Administered Count Last Ordered Date First Ordered Date tc-99m mebrofenin (choletec) injection 7.37 millicurie 1 01/25/2018 documented in this encounter Care Teams Aeronautical Inspector Relationship Specialty [place] [address] [place] [id number] PCP - General 03/15/17 06/20/18 documented as of this encounter
--- OUTSIDE RECORDS SUMMARY | 2024-08-09 23:36 | XMS_ITS | Encounter Summary ---
Author Organization [facility] Address [address] [address] Care Team Providers Care Tool Marker Name Role Phone Brittani Agosto MD Primary Care Provider [phone] [phone] Encounter Details Date Type Department Care Team (Late st Contact Info) Description 08/10/2018 Orders Only [facility] Orthopedics and Sports Medicine [address] [place] [phone] Nolan Bernard PA [address] [place] [address] DR CAMPOS [address] [place] [address] Social History Tobacco Use Types Packs/Day Years Used Date Smoking Tobacco: Never Smokeless Tobacco: Never Alcohol Use Standard Drinks/Week Comments Yes 0 (1 standard drink = 0.6 oz pur e alcohol) Comments No Sex and Gender Information Value Date Recorded Sex Assigned at Not on file Legal Sex Female 1:09 AM 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 Gender Identity Not on file Sexual Orientation Not on file 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 documented as of this encounter Ordered Prescriptions Prescription Sig Dispense Quantity Refills Last Filled Start Date End Date oxyCODONE-acetamin ophen (PERCOCET) 5-325 mg per tabletIndications: Pain Take 1-2 tablets by mouth every 4-6 hours as needed for pain 33 tablet 08/10/2018 9 ascorbic acid (VITAMIN C) 500 mg tablet,chewable Take 1 tablet by mouth 2 times daily until finished 60 tablet/chew tab 08/10/2018 9 ondansetron (ZOFRAN) 4 mg tablet Take 1 tablet by mouth every 4-6 hours as needed for nausea 30 tablet 08/10/2018 9 senna-docusate (PERICOLACE) 8.6-50 mg Take 1-2 tablets by mouth daily. 30 tablet 08/10/2018 9 documented in this encounter Plan of Treatment Not on file documented as of this encounter Visit Diagnoses Not on filedocumented in this encounter Care Teams Tool Marker Relationship Specialty Start [place] [address] [address] PCP - General Family Medicine 06/21/18 02/19/19 documented as of this encounter
--- OUTSIDE RECORDS SUMMARY | 2024-08-09 23:36 | XMS_ITS | Encounter Summary ---
Author Organization [facility] Address [address] [address] Care Team Providers Care Finish Production Manager Name Role Phone Brittani Agosto MD Primary Care Provider [phone] [phone] Reason for Visit * Reason Comments Pain Encounter Details Date Type Department Care Team (Latest Contact Info) Description 07/08/2018 8:30 AM DIRECTOR OF RESEARCH AND DEVELOPMENT Office Visit [facility] Orthopedics and Sports Medicine [address] [place] [phone] Cuate Mcmullen MD [address] [place] [address] DR CATES [address] [address] Incomplete tear of right rotator cuff (Primary [...] Legal Sex Female 1:09 AM DIRECTOR OF RESEARCH AND DEVELOPMENT Gender Identity Not on file Sexual Orientation Not on file 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 documented as of this encounter Last Filed Vital Signs Vital Sign Reading Time Taken Comments Blood Pressure 119/75 07/08/2018 8:51 AM DIRECTOR OF RESEARCH AND DEVELOPMENT Pulse 65 07/08/2018 8:51 AM DIRECTOR OF RESEARCH AND DEVELOPMENT Temperature - - Respiratory Rate - - Oxygen Saturation - - Inhaled Oxygen Concentration - - Weight 92.1 kg (203 lb) 07/08/2018 8:51 AM DIRECTOR OF RESEARCH AND DEVELOPMENT Height 165.1 cm (5' 5 ) 07/08/2018 8:51 AM DIRECTOR OF RESEARCH AND DEVELOPMENT Body Mass Index 33.78 07/08/2018 8:51 AM DIRECTOR OF RESEARCH AND DEVELOPMENT documented in this encounter Progress Notes * Cuate Mcmullen MD - 07/08/2018 8:30 AM CST NEW PATIENT VISIT Subjective CHIEF COMPLAINT She had concerns including Pain of the Right Shoulder. HISTORY OF PRESENT ILLNESS Right shoulder pain for the past 2 years. Her pain is recently gotten worse in the past month. Her pain started by doing her daily activities. Her pain is achy dull and burning. Her pain is moderate in severity ibuprofen ibuprofen sometimes helps her daily activities make her worse. Pain is continuous and unpredictable. This not work comp did not start work. She has tried steroid injections and ph ysical therapy with no relief is here for surgical consultation she has a history of MRI in 2014 which showed a supraspinatus tendon tear Pain Assessment Pain Assessment: 0-10 Pain Score: 8 PAST MEDCIAL HISTORY She has a past medical history of OTHER MEDICAL (2002); OTHER MEDICAL; OTHER MEDICAL (2006); OTHER MEDICAL (2008); OTHER MEDICAL (05/2013); OTHER MEDICAL (2008); OTHER MEDICAL; and OTHER MEDICAL. PAST SURGICAL HISTORY She has a past surgical history that includes Other surgical history (2002); Other surgical history(2004); Tubal ligation (2008); Other surgical history (2012); and Other surgical history. MEDICATIONS She has a current medication list which includes the following prescription(s): dicyclomine, famotidine, levothyroxine, tramadol, alprazolam, and citalopram. ALLERGIES She is allergic to cefazolin; sertraline; bacitracin; lidocaine; neomycin; polymyxin b; and pramoxine. SOCIAL HISTORY She reports that she has never smoked. She has never used smokeless tobacco. She reports that she drinks alcohol. She reports that she does not use [...] is not hyperactive. Objective PHYSICAL EXAM BP 119/75 Pulse 65 Ht 165.1 cm (5' 5 ) Wt 92.1 kg (203 lb) BMI 33.78 kg/m?? Right shoulder Inspection Erythema: absent Swelling: absent Skin temperature: normal AC joint deformity: absent Surgical scar/wound: present. The surgical scar/wound is healed and no evidence of infection. There is no drainage present. Palpation Tenderness is present. [...] REVIEW OF X-RAYS/STUDIES/LABS EXAM: Right shoulder MRI ?? HISTORY: Pain in right shoulder. ?? [...] tendon. 2. Osteoarthrosis of the acromioclavicular joint. ?? Electronically signed by: Jani Guevara M.D. Assessment/Plan Олег was seen today for pain. Diagnoses and all orders for this visit: Incomplete tear of right rotator cuff Arthritis of right acromioclavicular joint Impingement syndrome of right shoulder Biceps tendinitis of right upper extremity Procedures PLAN I discussed the nature of [...] these risks and agreed to proceed with surgeryas described above and informed consent was established in the office today. TARIK Strong MD CTOR OF RESEARCH AND DEVELOPMENT documented in this encounter Plan of Treatment Not on file documented as of this encounter Visit Diagnoses Diagnosis Incomplete tear of right rotator cuff- Primary Arthritis of right acromioclavicular joint Impingement syndrome of right shoulder Biceps tendinitis of right upper extremity documented in this encounter Historical Medications * This list may reflect changes made after this encounter. Medication Sig Dispense Quantity Refills Last Filled Start D ate End Date traMADol (ULTRAM) 50 mg tablet 1 06/30/2018 05/15/2019 added in this encounter Care Teams Finish Production Manager Relationship Specialty Start [place] [address] [place] [address] PCP - General Family Medicine 06/21/18 02/19/19 documented as of this encounter
--- OUTSIDE RECORDS SUMMARY | 2024-08-09 23:36 | XMS_ITS | Encounter Summary ---
Author Organization [facility] Address [address] [place] [address] Care Team Providers Care Smart Energy Specialist Name Role Phone Kelly Olson NP Primary Care Provider [phone]- [phone] Reason for Referral * Diagnostic Imaging (Routine) - Closed Specialty Diagnoses / Procedures Referred By Contac t Referred To Contact Diagnoses Right upper quadrant abdominal pain Procedures US Jennifer Gil MD Phone: tel: fax: [address] [phone] Referral ID Status Reason Start Date Expiration Date Visits Re quested Visits Authorized [id number] Closed 01/19/2018 07/31/2019 1 1 Reason for Visit * Diagnostic Imaging (Routine) - Closed Specialty Diagnoses / Procedures Referred By Contac t Referred To Contact Diagnoses Right upper quadrant abdominal pain Procedures US Jennifer Gil MD Phone: tel: fax: [address] [address] Referral ID Status Reason Start Date Expiration Date Visits Re quested Visits Authorized [id number] Closed 01/19/2018 07/31/2019 1 1 Encounter Details Date Type Department Care Team (Late st Contact Info) Description 01/20/2018 8:55 AM CDT - 01/20/2018 11:59 PM CDT Hospital Encounter [facility] ` [address] [place] [address] [place] [address] [facility] [address] [place] [address] Right upper quadrant abdominal pain Discharge Disposition: Discharge to home or self care Social History Tobacco Use Types Packs/Day Years Used Date Smoking Tobacco: Never Smokeless Tobacco: Never Alcohol Use Standard Drinks/Week Comments Yes 0 (1 standard drink = 0.6 oz pur e alcohol) Comments No Sex and Gender Information Value Date Recorded Sex Assigned at Not on file Legal Sex Female 1:09 AM DIRECTOR VOLUNTEER SERVICES Gender Identity Not on file Sexual [...] mcg tablet Take 150 mcg by mouth grease maker before breakfast. 09/06/2018 documented as of this encounter Discharge Disposition Disposition Code Departure Means Destination Discharge to home or self care documented in this encounter Plan of Treatment Not on file documented as of this encounter Procedures Procedure Name Priority Date/Time Associated Diagnosis Comments US RUQ Schedule Routine, Read Routine (OP Routine) 01/20/2018 9:35 AM CDT Right upper quadrant abdominal pain documented in this encounter Results * US RUQ (01/20/2018 9:35 AM CDT) [...] hepatomegaly. Electronically signed by: Jostin Barger M.D. Jennifer Zazueta MD [facility] PROCEDURES Final Result documented in this encounter Visit Diagnoses Diagnosis Right upper quadrant abdominal pain documented in this encounter Care Teams Smart Energy Specialist Relationship Specialty [place] [address] [address] PCP - General 03/15/17 06/20/18 documented as of this encounter
--- OUTSIDE RECORDS SUMMARY | 2024-08-09 23:36 | XMS_ITS | Encounter Summary ---
Author Organization [facility] Address [address] [address] Care Team Providers Care Land Use Planner Name Role Phone Kelly Olson NP Primary Care Provider [phone]- [phone] Reason for Visit * Reason Onset Date Comments Medical Question 06/17/2018 Encounter Details Date Type Department Care Team (Late st Contact Info) Description 06/17/[address] [facility] Orthopedics and Sports Medicine [address] [place] [phone] Cuate Mcmullen MD [address] [place] [address] [address] CATES [address] [address] Medical Question Social History Tobacco Use Types Packs/Day Years Used Date Smoking Tobacco: Never Smokeless Tobacco: Never Alcohol Use Standard Drinks/Week Comments Yes 0 (1 standard drink = 0.6 oz pur e alcohol) Comments No Sex and Gender Information Value Date Recorded Sex Assigned at Not on file Legal Sex Female 1:09 AM CRITICAL CARE REGISTERED NURSE Gender Identity Not on file Sexual Orientation Not on file 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 ICAL CARE REGISTERED NURSE * Telephone Encounter - Nolan Bernard PA - 06/17/2018 1:04 PM CRITICAL CARE REGISTERED NURSE Please let her know that she needs to continue to alternate tylenol and ibuprofen but to not exceedmore than 2400mg per day of ibuprofen and 4000mg of tylenol. We will order an MRI but she does not need to come in to see me on Wednesday, I cannot re inject her. Please order MRI ICAL CARE REGISTERED NURSE * Telephone Encounter - Alise Arzate - 06/17/2018 11:51 AM CST Patient is scheduled for the next available appointment with PA for Dr. Mcmullen on 06/21/18. She isexperiencing worsening shoulder pain from her last visit in May. She states she is taking IBU 1,000mg Q 6 hours and started to take Tylenol today also 1,000mg and her her pain is not subsiding. She would like to know what else she can do for pain relief or any suggestions it hurts to move her arm. Please advise. ICAL CARE REGISTERED NURSE documented in this encounter Plan of Treatment Not on file documented as of this encounter Visit Diagnoses Not on filedocumented in this encounter Care Teams Land Use Planner Relationship Specialty [place] [address] [address] PCP - General 03/15/17 06/20/18 documented as of this encounter
--- OUTSIDE RECORDS SUMMARY | 2024-08-09 23:37 | XMS_ITS | Encounter Summary ---
Author Organization [facility] Address [address] [place] [address] Care Team Providers Care Planting Machine Crewman Name Role Phone Brittani Agosto MD Primary Care Provider [phone] [phone] Encounter Details Date Type Department Care Team (Late st Contact Info) Description 01/20/2017 4:00 PM CDT Lab [address] [phone] Right upper quadrant pain Social History Tobacco Use Types Packs/Day Years Used Date Smoking Tobacco: Never Smokeless Tobacco: Never Alcohol Use Standard Drinks/Week Comments Yes 0 (1 standard drink = 0.6 oz pur e alcohol) Comments No Sex and Gender Information Value Date Recorded Sex Assigned at Not on file Legal Sex Female 1:09 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 I saw this patient for belly pain. She is getting a RUQ US. documented in this encounter Plan of Treatment Not on file documented as of this encounter Procedures Procedure Name Priority Date/Time Associated Diagnosis Comments EGFR Routine 01/20/2017 3:57 PM CDT DIFFERENTIAL AUTO Routine 01/20/2017 3:5 7 PM CDT CBC WITH AUTO DIFFERENTIAL Routine 01/20/2017 3:57 PM CDT Right upper quadrant pain COMPREHENSIVE METABOLIC PANEL Routine 01/20/2017 3:57 PM CDT Right upper quadrant pain documented in this encounter Results * eGFR (01/20/2017 3:57 PM CDT) eGFR 99 mL/min/1.7 3 m2 [facility] Comment: Interpretive Data Reference Interval Normal ?>/= 90 mL/min/1.73m2 Mildly decreased* ? 60 - 89 mL/min/1.73m2 Mildly to moderately decreased ?45 - 59 mL/min/1.73m2 Moderately to severely decreased ??30 - 44 mL/min/1.73m2 Severely decreased ?15 - 29 mL/min/1.73m2 Kidney Failure ?< 15 ??mL/min/1.73m2 *Relative to young adult level If -Citizen Of [place] multiply value by 1.16. Estimated glomerular filtration [...] was last reviewed 2016. Blood specimen (specimen) 01/20/2017 3:57 PM CDT 01/20/2017 7:29 PM CDT us Brittani Agosto MD LAB BLOOD ORDERABLES Tahira l Result Performing Organization Address City/[facility] Co de Phone Number EDGAR [address] [address] Department [place] [address] * (ABNORMAL) Differential, auto (01/20/2017 3:57 PM CDT) Neutrophil pct 58.1 % [facility] Imm gran pct 0.4 % [facility] Lymphocyte pct 31.9 % [facility] Monocyte pct 8.6 % [facility] Eosinophil pct 0.1 % [facility] Basophil pct 0.4 % [facility] Neutrophil abs 5.43 1.70 - 6.50 K/cumm [facility] Imm gran abs 0.04 0.00 - 0.10 K/cumm [facility] Lymphocyte abs 2.99 0.80 - 3.30 K/cumm [facility] Monocyte abs 0.81(H) 0.20 - 0.80 K/cumm [facility] Eosinophil abs 0.06 0.00 - 0.50 K/cumm [facility] Basophil abs 0.04 0.00 - 0.10 K/cumm [facility] Blood specimen (specimen) 01/20/2017 3:57 PM CDT 01/20/2017 7:12 PM CDT us Brittani Agosto MD LAB BLOOD ORDERABLES Tahira l Result Performing Organization Address [facility] de Phone Number EDGAR FLOR [address] [address] Department of Laboratories [place], [place] [id number] * (ABNORMAL) CBC with auto differential (01/20/2017 3:57 PM CDT) WBC 9.37 3.80 - 9.90 K/cumm [facility] RBC 3.88(L) 3.90 - 5.20 M/cumm [facility] Hgb 11.3(L) 11.9 - 15.5 g/dL [facility] Hct 35.2(L) 35.6 - 45.5 % [facility] MCV 90.7 81.3 - 96.4 fL [facility] MCH 29.1 27.1 - 33.3 pg [facility] MCHC 32.1(L) 32.3 - 35.7 g/dL [facility] RDW CV 13.2 11.1 - 14.9 % [facility] RDW SD 43.5 35.7 - 48.1 fL [facility] Plt 295 150 - 400 K/cumm [facility] MPV 9.5 9.1 - 12.3 fL [facility] NRBC 0.0 0.0 - 0.2 % [facility] NRBC abs 0.00 0.00 - 0.01 K/cumm [facility] Blood specimen (specimen) 01/20/2017 3:57 PM CDT 01/20/2017 7:12 PM CDT Brittani Agosto MD LAB BLOOD ORDERABLES [place] [address] [address] Department [place] [address] * Comprehensive metabolic panel (01/20/2017 3:57 PM CDT) Pathologist [facility] Sodium 137 135 - 145 mmol/L [facility] Potassium, pl 3.8 3.5 - 5.1 mmol/L [facility] CO2 24 22 - 32 mmol/L [facility] BUN 10 8 - 24 mg/dL [facility] Glucose 87 70 - 199 mg/dL [facility] Creatinine 0.74 0.60 - 1.30 mg/dL [facility] Calcium 9.4 8.4 - 10.5 mg/dL [facility] Chloride 103 100 - 114 mmol/L [facility] Albumin 4.1 3.2 - 4.8 g/dL [facility] AST 23 7 - 40 Units/L [facility] ALT 21 1 - 45 Units/L [facility] Alk phos 46 30 - 110 Units/L [facility] Bilirubin, total 0.20 0.10 - 1.30 mg/dL [facility] Protein, pl 7.0 6.0 - 8.3 g/dL [facility] Anion gap 14 8 - 16 mmol/L [facility] Blood specimen (specimen) 01/20/2017 3:57 PM CDT 01/20/2017 7:12 PM CDT us Brittani Agosto MD LAB BLOOD ORDERABLES Tahira l Result EDGAR [address] [address] Department [place] [address] documented in this encounter Visit Diagnoses Diagnosis Right upper quadrant pain Abdominal pain, right upper quadrant documented in this encounter Care Teams Planting Machine Crewman Relationship Specialty [place] [address] [address] PCP - General 12/22/16 03/14/17 documented as of this encounter
--- OUTSIDE RECORDS SUMMARY | 2024-08-09 23:37 | XMS_ITS | Encounter Summary ---
Author Organization [facility] Address [address] [facility] [address] [place] [address] Care Team Providers Care Jacquard Fixer Name Role Phone Brittani Agosto MD Primary Care Provider [phone] Reason for Visit * Reason Onset Date Comments Triny - Test Results 01/27/2017 Encounter Details Date Type Department Care Team (Late st Contact Info) Description 01/27/2017 Telephone [facility] at [facility] [address] [phone] [place] [address] [address] Triny - Test Results Social History Tobacco Use Types Packs/Day Years Used Date Smoking Tobacco: Never Smokeless Tobacco: Never Alcohol Use Standard Drinks/Week Comments Yes 0 (1 standard drink = 0.6 oz pur e alcohol) Comments No Sex and Gender Information Value Date Recorded Sex Assigned at Not on file Legal Sex Female 1:09 AM GLUER Gender Identity Not on file Sexual Orientation Not on file documented as of this encounter Miscellaneous Notes * Telephone Encounter - Corrine Stafford - 01/27/2017 1:59 PM CDT Test Result- Present: Type of test: U/S Date of test: 6/21/17 Where test was performed: lab Results communicated to patient from the following chart location: No notes avail to communicate Additional Questions/Comments: please contact patient with results documented in this encounter Plan of Treatment Not on file documented as of this encounter Visit Diagnoses Not on filedocumented in this encounter Care Teams Jacquard Fixer Relationship Specialty Start [place] [address] [address] PCP - General 12/22/16 03/14/17 documented as of this encounter
--- OUTSIDE RECORDS SUMMARY | 2024-08-09 23:37 | XMS_ITS | Encounter Summary ---
Author Organization [facility] Healthcare Address [address] [place] [address] Care Team Providers Care Corporate Travel Manager Name Role Phone Brittani Agosto MD Primary Care Provider [phone] [phone] Encounter Details Date Type Department Care Team (Late st Contact Info) Description 02/17/2017 2:45 PM CDT Lab [address] [address] Epigastric pain; Bloating Social History Tobacco Use Types Packs/Day Years Used Date Smoking Tobacco: Never Smokeless Tobacco: Never Alcohol Use Standard Drinks/Week Comments Yes 0 (1 standard drink = 0.6 oz pur e alcohol) Comments No Sex and Gender Information Value Date Recorded Sex Assigned at Not on file Legal Sex Female 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 Gender Identity Not on file Sexual Orientation Not on file documented as of this encounter Plan of Treatment Not on file documented as of this encounter Procedures Procedure Name Priority Date/Time Associated Diagnosis Comments TISSUE TRANSGLUTAMINASE, IGA Routine 02/17/2017 2:41 PM CDT Bloating CRP, HIGH SENSITIVITY Routine 02/17/2017 2:41 PM CDT Bloating AMYLASE Routine 02/17/2017 2:41 PM CDT Epigastric pain documented in this encounter Results * TTG IgA (02/17/2017 2:41 PM CDT) TTG ab, IgA <1.2 <4.0 (Negative) units/mL [facility]OR Comment:Test Performed by: Olivia [address] [address] Blood specimen (specimen) 02/17/2017 2:41 PM CDT 02/17/2017 2:41 PM CDT us Jennifer Zazueta MD LAB BLOOD ORDERABLES Fi nal Result EDGAR [address] [address] Department [place] [address] * CRP (02/17/2017 2:41 PM CDT) hsCRP 1.8 0.0 - 2.9 mg/L [facility] FLOR Comment: Interpretive Data This test is used to evaluate cardiac risk. ??When using hs- CRP ??to assess cardiovascular risk, two measurements should be ??taken, two weeks or more apart (averaging results) at baseline ??health. ??The high-risk tertile has an approximate two-fold ??increase in relative risk compared with the low-risk tertile. If hs- CRP is being used to assess cardiac risk and hs-CRP ??is >9.9 mg/L, the patient should be examined for sources of ??infection or inflammation and the test should be repeated ?? after resolution. -- Reference Interval (18 years and older): ?? Low risk tertile: ?<1.0 mg/L ?? Average risk tertile: 1.0 - 3.0 mg/L ?? High risk tertile: ? >3.0 mg/L ?? Acute Inflammation: ?>9.9 mg/L Current interpretive data was last revised on 2016 Blood specimen (specimen) 02/17/2017 2:41 PM CDT 02/17/2017 2:41 PM CDT Jennifer Zazueta MD LAB BLOOD ORDERABLES Fi nal Result Performing Organization Address City/[facility] Co de Phone Number EDGAR FLOR [address] [place] [address] * Amylase (02/17/2017 2:41 PM CDT) Amylase 50 35 - 100 Units/L EGDAR Blood specimen (specimen) 02/17/2017 2:41 PM CDT 02/17/2017 2:41 PM CDT Jennifer Zazueta MD LAB BLOOD ORDERABLES Fi nal Result Performing Organization Address [facility] de Phone Number EDGAR [address] [place] [address] documented in this encounter Visit Diagnoses Diagnosis Epigastric pain Abdominal pain, epigastric Bloating Flatulence, eructation, and gas pain documented in this encounter Care Teams Corporate Travel Manager Relationship Specialty [place] [address] [address] PCP - General 12/22/16 03/14/17 documented as of this encounter
--- OUTSIDE RECORDS SUMMARY | 2024-08-09 23:37 | XMS_ITS | Encounter Summary ---
Author Organization [facility] Address [address] [facility] [address] [place] [address] Care Team Providers Care Mounter Sousaphones Name Role Phone Brittani Agosto MD Primary Care Provider [phone] [phone] Reason for Visit * Reason Comments Abdominal Pain Bloated Nausea Encounter Details Date Type Department Care Team (Late st Contact Info) Description 02/17/2017 11:00 AM CDT Office Visit [facility] [id number] [place] [address] [address], [place] [address] [place] Zazu[place] [id number] [place] [address] [address] [place] [address] Bloating (Primary Dx); Epigastric pain; Diarrhea, unspecified type Social History Tobacco Use Types Packs/Day Years Used Date Smoking Tobacco: Never Smokeless Tobacco: Never Alcohol Use Standard Drinks/Week Comments Yes 0 (1 standard drink = 0.6 oz pur e alcohol) Comments No Sex and Gender Information Value Date Recorded Sex Assigned at Not on file Legal Sex Female 1:09 AM HEEL LAYER Gender Identity Not on file Sexual Orientation Not on file documented as of this encounter Last Filed Vital Signs Vital Sign Reading Time Taken Comments Blood Pressure 104/62 02/17/2017 11:15 AM CDT Pulse 70 02/17/2017 11:15 AM CDT Temperature - - Respiratory Rate 16 02/17/2017 11:15 AM CDT Oxygen Saturation - - Inhaled Oxygen Concentration - - Weight 97 kg (213 lb 14.4 oz) 02/17/2017 11:15 A M CDT Height 161.3 cm (5' 3.5 ) 02/17/2017 11:15 AM CD T Body Mass Index 37.3 02/17/2017 11:15 AM CDT documented in this encounter Progress Notes * Jennifer Zazueta MD - 02/17/2017 11:00 AM CDT [facility] Gastroenterology Subjective/Objective Patient ID: Deejay Paz is a 42 y.o. female. Chief Complaint Abdominal Pain; Bloated; and Nausea Nausea / Vomiting Patient complains of nausea and vomiting. Onset of symptoms was several months ago. Patient describes nausea as moderate. Vomiting has occurred a few times over the past 1 months. Vomitus is described as normal gastric contents. Symptoms have been associated with moderate abdominal pain. Patient denies alcohol overuse, fever and hematemesis. Symptoms have been intermittent. Evaluation to date hasbeen none. Treatment to date has been none. Abdominal Pain This is a new problem. The current episode started more than 1 month ago. The problem occurs daily.Associated symptoms include abdominal pain and nausea. Pertinent negatives include no arthralgias, chest pain, chills, coughing, fatigue, fever, joint swelling, rash, sore throat or vomiting. The symptoms are aggravated by eating. Treatments tried: famotidine. The treatment provided no relief. Past Medical History: Diagnosis Date ??? HX OTHER MEDICAL 2003 +PPD ??? HX OTHER MEDICAL herniated disc l4-5 ??? HX OTHER MEDICAL 2006 Caesarean section; Comments: [facility] 04/06/2014 - ??? HX OTHER MEDICAL 2008 C section; Comments: [facility] 04/06/2014 - ??? HX OTHER MEDICAL 05/2013 l4/l5 dissection; Comments: [facility] 04/06/2014 - ??? HX OTHER MEDICAL 2008 Tubaligation; Comments: [facility] 04/06/2014 - ??? 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 HX OTHER MEDICAL asymmetrical breast mass Past Surgical History: Procedure Laterality Date ??? OTHER SURGICAL HISTORY 2002 +PPD: Drug therapy ??? OTHER SURGICAL HISTORY 2005 D&C ??? OTHER SURGICAL HISTORY 2013 herniated disc l4-5: lumbar spine surgery Dr. Burkett ??? OTHER SURGICAL HISTORY asymmetrical breast mass: planning stereotatic bx ??? TUBAL LIGATION 2009 Bilateral tubal ligation Social History Substance Use Topics ??? Smoking status: Never Smoker ??? Smokeless tobacco: Never Used ??? Alcohol use Yes Family History Problem Relation Age of Onset [...] Sister Cancer, skin; Allergies Allergen Reactions ??? Bacitracin ??? Cefazolin Redness and Blisters Reaction: redness, blister, ??? Lidocaine ??? Neomycin ??? Polymyxin B ??? Pramoxine ??? Sertraline Other (See comments) Reaction: muscle cramps, HOME MEDICATIONS : ALPRAZolam (XANAX) 0.25 mg tablet citalopram (CeleXA) 20 mg tablet famotidine (PEPCID) 20 mg tablet levothyroxine (SYNTHROID, LEVOTHROID) 150 mcg tablet Review of Systems Constitutional: Negative for appetite change, chills, fatigue, fever and unexpected weight change. HENT: Negative for drooling, mouth sores, postnasal drip, sore throat, trouble swallowing and voicechange. Eyes: Negative for redness. Respiratory: Negative for cough and wheezing. Cardiovascular: Negative for chest pain. Gastrointestinal: Positive for abdominal pain, diarrhea and nausea. Negative for abdominal distention, anal bleeding, blood in stool, constipation, rectal pain and vomiting. Endocrine: Negative for cold intolerance, heat intolerance, polydipsia and polyuria. Genitourinary: Negative for difficulty urinating and urgency. Musculoskeletal: Negative for arthralgias, back pain and joint swelling. Skin: Negative for color change, pallor and rash. Allergic/Immunologic: Negative for food allergies and immunocompromised state. Neurological: Negative for dizziness and seizures. Hematological: Negative for adenopathy. Does not bruise/bleed easily. Psychiatric/Behavioral: Negative for hallucinations, self-injury and suicidal ideas. Blood pressure 104/62, pulse 70, resp. rate 16, height 161.3 cm (5' 3.5 ), weight 97 kg (213 lb 14.4 oz), last menstrual period 01/06/2017. Physical Exam Constitutional: She is oriented to person, place, and time. She appears well-developed. Obese HENT: Head: Normocephalic. Mouth/Throat: Oropharynx is clear and moist. Eyes: Conjunctivae and EOM are normal. Pupils are equal, round, and reactive to light. Neck: Normal range of motion. Cardiovascular: Normal rate and normal heart sounds. Pulmonary/Chest: Effort normal and breath sounds normal. Abdominal: Soft. Bowel sounds are normal. There is tenderness. Musculoskeletal: Normal range of motion. Neurological: She is oriented to person, place, and time. Skin: Skin is warm. Psychiatric: She has a normal mood and affect. Thought content normal. LABS Lab Results Component Value Date ALT 21 01/20/2017 AST 23 01/20/2017 ALKPHOS 46 01/20/2017 BILITOT 0.20 01/20/2017 No results found for: AMYLASE Lab Results Component Value Date WBC 9.37 01/20/2017 HGB 11.3 (L) 01/20/2017 HCT 35.2 (L) 01/20/2017 MCV 90.7 01/20/2017 Chemistry Component Value Date/Time CO2 24 01/20/2017 1557 CREATININE 0.74 01/20/2017 1557 Component Value Date/Time CALCIUM 9.4 01/20/2017 1557 ALKPHOS 46 01/20/2017 1557 AST 23 01/20/2017 1557 ALT 21 01/20/2017 1557 BILITOT 0.20 01/20/2017 1557 Mild anemia Imaging/Studies Ultrasound RUQ negative for gallbladder dz. Assessment/Plan Diagnoses and all orders for this visit: 1. Bloating (Primary) Comments: Differential diagnoses include GERD, IBS, Disaccharidase deficiency. Check EGD, TTG. Counseled about diet. Orders: - CRP; Future - TTG IgA; Future 2. Epigastric pain Comments: GERD vs Peptic ulcer dz. Pancreatitis considered. Wiil check amylase level. EGD. Orders: - EGD -; Future - Amylase; Future 3. Diarrhea, unspecified type Comments: Has FH of Crohn's dz. Check CRP. Colonoscopy is recommended. Orders: - Colonoscopy; Future Advised high fiber low fat diet. Advised to avoid NSAIDS. Advised to avoid alcohol and smoking. Regular physical activity and weight loss advised. Jennifer Zazueta MD documented in this encounter Plan of Treatment Not on file documented as of this encounter Results * TTG IgA (02/17/2017 2:41 PM CDT) Pathologist [facility] TTG ab, IgA <1.2 <4.0 (Negative) units/mL [facility] Comment:Test Performed by: [place] [address] Blood specimen (specimen) 02/17/2017 2:41 PM CDT 02/17/2017 2:41 PM CDT Jennifer Zazueta MD LAB BLOOD ORDERABLES nal Result [facility] [address] [facility] Department [place] [address] * CRP (02/17/2017 2:41 PM CDT) Pathologist [facility] hsCRP 1.8 0.0 - 2.9 mg/L [facility] Comment: Interpretive Data This test is used [...] ORDERABLES Fi nal Result Performing Organization Address [facility] Co de Phone Number [facility] [address] [place] [address] * Amylase (02/17/2017 2:41 PM CDT) Amylase 50 35 - 100 Units/L [facility] Blood specimen (specimen) 02/17/2017 2:41 PM CDT 02/17/2017 2:41 PM CDT Jennifer Zazueta MD LAB BLOOD ORDERABLES Fi nal Result Performing Organization Address [facility] de Phone Number [facility] [address] [place] [address] documented in this encounter Visit Diagnoses Diagnosis Bloating- Primary Flatulence, eructation, and gas pain Epigastric pain Abdominal pain, epigastric Diarrhea, unspecified type documented in this encounter Historical Medications * This list may reflect changes made after this encounter. famotidine (PEPCID) 20 mg tablet Take 20 mg by mouth daily. 05/15/2019 added in this encounter Care Teams Mounter Sousaphones Relationship Specialty [place] [address] [address] PCP - General 12/22/16 03/14/17 documented as of this encounter
--- OUTSIDE RECORDS SUMMARY | 2024-08-09 23:37 | XMS_ITS | Encounter Summary ---
Author Organization [facility] Address [address] [facility] [address] [place] [address] Care Team Providers Care Regional Vice President Life Sales Name Role Phone Kelly Olson NP Primary Care Provider +- [phone] Encounter Details Date Type Department Care Team (Late st Contact Info) Description 04/07/2017 Nurse Triage [facility] [place] [id number] [facility] [address] [place] [address] Evi Espinoza RN Social History Tobacco Use Types Packs/Day Years Used Date Smoking Tobacco: Never Smokeless Tobacco: Never Alcohol Use Standard Drinks/Week Comments Yes 0 (1 standard drink = 0.6 oz pur e alcohol) Comments No Sex and Gender Information Value Date Recorded Sex Assigned at Not on file Legal Sex Female 1:09 AM ANIMAL ASSISTED THERAPIST Gender Identity Not on file Sexual Orientation Not on file documented as of this encounter Miscellaneous Notes * Telephone Encounter - Evi Espinoza RN - 04/07/2017 4:57 PM CDT 3rd and final attempt to reach pt, left detailed message for pt to call back to exchange if triage is still needed. Call closed * Telephone Encounter - Evi Espinoza RN - 04/07/2017 4:18 PM CDT Regarding: Pain in ears ----- Message from Charis Oglesby sent at 04/07/2017 4:17 PM CDT ----- Symptom Based Call Chief Complaint: Pain in ears Appointment Details: No appointments availability until June Additional Comments: N/A documented in this encounter Plan of Treatment Not on file documented as of this encounter Visit Diagnoses Not on filedocumented in this encounter Care Teams Regional Vice President Life Sales Relationship Specialty [place] [address] [address] [place] [id number] PCP - General 03/15/17 06/20/18 documented as of this encounter
--- OUTSIDE RECORDS SUMMARY | 2024-08-09 23:37 | XMS_ITS | Encounter Summary ---
Author Organization [facility] Address [address] [address] Care Team Providers Care Pleating Supervisor Name Role Phone Kelly Olson NP Primary Care Provider [phone]- [phone] Encounter Details Date Type Department Care Team (Latest Contact Info) Description 09/24/2017 10:01 AM ENDBAND CUTTER HAND - 09/24/2017 11:59 PM ENDBAND CUTTER HAND Hospital Encounter [facility] Orthopedics and Sports Medicine [address] [place] [phone] Discharge Disposition: Discharge to home or self care Social History Tobacco Use Types Packs/Day Years Used Date Smoking Tobacco: Never Smokeless Tobacco: Never Alcohol Use Standard Drinks/Week Comments Yes 0 (1 standard drink = 0.6 oz pur e alcohol) Comments No Sex and Gender Information Value Date Recorded Sex Assigned at Not on file Legal Sex Female 1:09 AM ENDBAND CUTTER HAND Gender Identity Not on file Sexual Orientation [...] 05/15/2019 levothyroxine (SYNTHROID, LEVOTHROID) 150 mcg tablet TAKE 1 TABLET BY MOUTH EVERY DAY 90 tablet 03/26/2017 12/18/2017 documented as of this encounter Discharge Disposition Disposition Code Departure Means Destination Discharge to home or self care documented in this encounter Plan of Treatment Not on file documented as of this encounter Procedures Procedure Name Priority Date/Time Associated Diagnosis Comments XR SHOULDER RIGHT 2 OR MORE VIEWS Schedule Routine, Read Routine (OP Routine) 09/24/2017 10:10 AM ENDBAND CUTTER HAND Right shoulder pain, unspecified chronicity documented in this encounter Results * XR Shoulder Right 4 Views (09/24/2017 10:10 AM ENDBAND CUTTER HAND) Anatomical Region Laterality Modality Upper Extremities, Shoulder Right Radi ographic Imaging Narrative 09/24/2017 10:39 AM ENDBAND CUTTER HAND Four views 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
--- OUTSIDE RECORDS SUMMARY | 2024-08-09 23:37 | XMS_ITS | Encounter Summary ---
Author Organization [facility] Medical [facility] Address [address] [facility] [address] [place] [address] Care Team Providers Care Leveling Machine Operator Name Role Phone Brittani Agosto MD Primary Care Provider [phone] [phone] Encounter Details Date Type Department Care Team (Late st Contact Info) Description 02/17/2017 Telephone [facility] [address], [place] [address] Deanne Maher MA Social History Tobacco Use Types Packs/Day Years Used Date Smoking Tobacco: Never Smokeless Tobacco: Never Alcohol Use Standard Drinks/Week Comments Yes 0 (1 standard drink = 0.6 oz pur e alcohol) Comments No Sex and Gender Information Value Date Recorded Sex Assigned at Not on file Legal Sex Female 1:09 AM STAVE BOLT EQUALIZER Gender Identity Not on file Sexual Orientation Not on file documented as of this encounter Miscellaneous Notes * Telephone Encounter - Deanne Maher MA - 02/17/2017 12:25 PM CDT Faxed orders to gi lab * Telephone Encounter - Deanne Maher MA - 02/17/2017 12:24 PM CDT surpep sent to pharmacy * Telephone Encounter - Deanne Maher MA - 02/17/2017 12:23 PM CDT COLON /EGD COMBO Screening Questions: referring provider // Triny prev colon // sx's n/v; constipation; diarrhea; rectal bleed // yes on coumadin, plavix, warfarin, ibuprofen, aspirin, aleve, iron/prescriber // no dm oral or insulin // no renal or kidney issues // no pharm // updated Provider // OO date/time 45 MINUTES // 02-25-17 @ 11:45am Ordering: instructions given by who; in office or via phone // deanne, via phone, mailed meds to stop // none Prep // surpep Authorization/referral // Not required order created // yes paperwork ready for gi lab // yes BLOOD THINNER STOP CALL PRESCRIBER AND NOTIFY PT // no documented in this encounter Plan of Treatment Not on file documented as of this encounter Visit Diagnoses Not on filedocumented in this encounter Care Teams Leveling Machine Operator Relationship Specialty [place] [address] [address] PCP - General 12/22/16 03/14/17 documented as of this encounter
--- OUTSIDE RECORDS SUMMARY | 2024-08-09 23:37 | XMS_ITS | Encounter Summary ---
Author Organization [facility] Address [address] [place] [address] Care Team Providers Care Equipment Engineer Name Role Phone Brittani Agosto MD Primary Care Provider [phone] [phone] Encounter Details Date Type Department Care Team (Latest Contact Info) Description 01/20/2017 3:52 PM CDT - 01/20/2017 11:59 PM CDT Hospital Encounter [place] [address] [address] Discharge Disposition: Discharge to home or self care Social History Tobacco Use Types Packs/Day Years Used Date Smoking Tobacco: Never Smokeless Tobacco: Never Alcohol Use Standard Drinks/Week Comments Yes 0 (1 standard drink = 0.6 oz pur e alcohol) Comments No Sex and Gender Information Value Date Recorded Sex Assigned at Not on file Legal Sex Female 1:09 AM WHEELCHAIR DRIVER Gender Identity Not on file Sexual Orientation Not on file documented as of this encounter Medications at Time of Discharge ALPRAZolam (XANAX) 0.25 mg tablet take 1 tablet by ORAL route every day at bedtime 30 0 10/25/2015 09/09/2017 citalopram (CeleXA) 20 mg tablet TAKE 1 TABLET BY ORAL ROUTE EVERY DAY 30 tablet 5 01/07/2017 04/08/2017 levothyroxine (SYNTHROID, LEVOTHROID) 150 mcg tablet TAKE 1 TABLET BY MOUTH EVERY DAY 90 2 04/28/2011 03/26/2017 documented as of this encounter Discharge Disposition Disposition Code Departure Means Destination Discharge to home or self care documented in this encounter Plan of Treatment Not on file documented as of this encounter Visit Diagnoses Not on filedocumented in this encounter Care Teams Equipment Engineer Relationship Specialty [place] [address] [address] [place] [id number] PCP - General 12/22/16 03/14/17 documented as of this encounter
--- OUTSIDE RECORDS SUMMARY | 2024-08-09 23:37 | XMS_ITS | Encounter Summary ---
Author Organization [facility] Address [address] [facility] [address] [place] [address] Phone Care Team Providers Care Hotel Front Office Manager Name Role Phone Kelly Olson NP Primary Care Provider [phone]- [phone] Brittani Agosto MD Primary Care Provider [phone] Cassius Ortega NP Primary Care Provider Roya Andre Unavailable [phone] Encounter Details Date Type Department Care Team (Late st Contact Info) Description 09/09/2017 Orders Only [facility] ProviderAnais MD [address] [place] [address] Social History Tobacco Use Types Packs/Day Years Used Date Smoking Tobacco: Never Smokeless Tobacco: Never Alcohol Use Standard Drinks/Week Comments Yes 0 (1 standard drink = 0.6 oz pur e alcohol) Comments No Sex and Gender Information Value Date Recorded Sex Assigned at Not on file Legal Sex Female 1:09 AM RESEARCH PROJECT MANAGER Gender Identity Not on file Sexual Orientation Not on file 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 Historical Provider MD LAB CYTOLOGY ORDERABLES F inal Result * DISCHARGE LABORATORY CUMULATIVE REPORT (09/09/2017 12:00 AM RESEARCH PROJECT MANAGER) Narrative 09/09/2017 12:00 AM RESEARCH PROJECT MANAGER Ordered by an unspecified provider. Historical Provider MD LAB BLOOD ORDERABLES Tahira l Result documented in this encounter Visit Diagnoses Not on filedocumented in this encounter Additional Health Concerns Infection Onset Date Last Indicated Resolved Time COVID: Suspected 05/03/2020 05/03/2020 05/04/2020 5:04 PM CDT Respiratory Infection ([place]), contact + droplet Comment:Automatically added due to negative COVID-19 result. 05/04/2020 05/04/2020 05/18/2020 3:0 6 AM CDT COVID: Suspected 10/28/2020 10/28/2020 10/29/2020 6:16 AM CDT COVID: Suspected 07/15/2021 07/15/2021 07/29/2021 3:05 AM RESEARCH PROJECT MANAGER documented as of this encounter Care Teams Hotel Front Office Manager Relationship Specialty [place] [address] [address] [facility] [address] [place] [address] PCP - General 03/15/17 06/20/18 [place] [address] [address] [address] [place] [address] PCP - General Family Medicine 06/21/18 02/19/19 [place] [address] [facility] [address] [place] [address] PCP - General Family Medicine 02/21/19 Roya Andre PA [address] [facility] [address] [place] [address] Physician Airplane Electrician Orthopedic Surgery 04/09/22 Alina Higginbotham PEDIATRIC LPN [address] [facility] [address] Delivery Nurse Infectious Diseases 10/08/22 documented as of this encounter
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
--- OUTSIDE RECORDS SUMMARY | 2024-08-09 23:37 | XMS_ITS | Encounter Summary ---
Author Organization [facility] Medical [facility] Address [address] [facility] [address] [place] [address] Care Team Providers Care Guard Chief Name Role Phone Kelly Olson NP Primary Care Provider + [phone] Reason for Visit * Reason Onset Date Comments Whitney- Appt Request 08/24/2017 Encounter Details Date Type Department Care Team (Late st Contact Info) Description 08/24/2017 Telephone Family Care at [facility] [address] [address] Kelly Olson NP [id number] [place] [address] Whitney- Appt Request Social History Tobacco Use Types Packs/Day Years Used Date Smoking Tobacco: Never Smokeless Tobacco: Never Alcohol Use Standard Drinks/Week Comments Yes 0 (1 standard drink = 0.6 oz pur e alcohol) Comments No Sex and Gender Information Value Date Recorded Sex Assigned at Not on file 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 L ATTENDANT * Telephone Encounter - Lindsay Murguia - 08/24/2017 9:53 AM CST To Lorri L ATTENDANT * Telephone Encounter - Kendra Sloan - 08/24/2017 9:33 AM CST Patient called with anxiety concerns and attempted to schedule but states she needs to be seen sooner than first available in October and would like call back to further discuss if a sooner appt could be accommodated. Please advise. L ATTENDANT documented in this encounter Plan of Treatment Not on file documented as of this encounter Visit Diagnoses Not on filedocumented in this encounter Care Teams Guard Chief Relationship Specialty [place] [address] [address] PCP - General 03/15/17 06/20/18 documented as of this encounter
--- OUTSIDE RECORDS SUMMARY | 2024-08-09 23:37 | XMS_ITS | Encounter Summary ---
Author Organization [facility] Healthcare Address [address] [place] [address] Care Team Providers Care Director Of Science Name Role Phone Brittani Agosto MD Primary Care Provider [phone] Encounter Details Date Type Department Care Team (Late st Contact Info) Description 02/25/2017 10:31 AM CDT - 02/25/2017 2:11 PM CDT Hospital Encounter [facility] [address] [place] [address] [place] [id number] [address] Discharge Disposition: Discharge to home or self care Social History Tobacco Use Types Packs/Day Years Used Date Smoking Tobacco: Never Smokeless Tobacco: Never Alcohol Use Standard Drinks/Week Comments Yes 0 (1 standard drink = 0.6 oz pur e alcohol) Comments No Sex and Gender Information Value Date Recorded Sex Assigned at Not on file 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 9 levothyroxine (SYNTHROID, LEVOTHROID) 150 mcg tablet TAKE 1 TABLET BY MOUTH EVERY DAY 90 2 04/28/2011 7 sodium, potassium & mag sulfates (SUPREP BOWEL KIT) 17.5-3.13-1.6 gram recon solnIndications: Bowel Evacuation Mix bottle of Suprep with water and drink at 4pm, repeat and drink at 10pm day before procedure 354 mL 02/17/2017 8 documented as of this encounter Discharge Disposition Disposition Code Departure Means Destination Discharge to home or self care documented in this encounter Plan of Treatment Not on file documented as of this encounter Procedures Procedure Name Priority Date/Time Associated Diagnosis Comments SURGICAL PATHOLOGY Routine 02/25/2017 2: 33 PM CDT UPPER GASTROINTESTINAL ENDOSCOPY REPORT 02/25/2017 COLONOSCOPY REPORT 02/25/2017 SURGICAL PATHOLOGY 02/25/2017 12 :00 AM CDT documented in this encounter Results * Surgical pathology (02/25/2017 2:33 PM CDT) 02/25/2017 2:33 PM CDT 02/25/2017 2:33 PM CDT Narrative 03/01/2017 11:46 AM CDT [facility] Department of Pathology [address] [place] [id number] Final Report ?Patient Name: DEEJAY ALFORD Address: [address] [place] [address] Service: Gastro [place] ??[id number] Location: GI Lab Taken: 02/25/2017 Gender: F Received 02/25/2017 : 1975 (Age: 42) Hospital #: [id number] Accessioned: 02/25/2017 ?? Patient Type: CH SDS Reported 03/01/2017 Physician(s): Dr. Jennifer Zazueta M.D. Dr. Brittani Agosto M.D. ?? Diagnosis: A.. ??Gastric antrum, biopsy: ? - Antral-type mucosa showing mild chronic inactive gastritis with focal lymphoid aggregate. - Negative for intestinal metaplasia and dysplasia. - Negative for Helicobacter-like organisms. B.. ??Duodenum, second part, biopsy: ? - No significant histopathologic alteration. C.. ??Colon, biopsy: ? - Specimen did not survive histologic processing. ?? Raphael Bradley M.D. ??Report Electronically Reviewed and Signed Out By ??Rahpael Bradley M.D. ??03/01/2017 11:46:30 Specimen(s) Received: A: Gastric antrum B: 2nd part of the duodenum C: Entire examined colon Microscopic Description: A. ?Microscopic review of the gastric antral biopsy shows antral- type mucosa showing mild chronic inactive gastritis. ??There is a focal lymphoid aggregate with no evidence of germinal center formation. ??There is no evidence of intestinal metaplasia or dysplasia. ??An immunohistochemical stain for H. pylori was performed with adequate controls and is negative. ? B. ?Microscopic review of the duodenal biopsy shows normal duodenal mucosa. ??There is no blunting of the villi and no increased intraepithelial lymphocytes are seen. ??No significant chronic changes are seen. ??No active inflammation is identified. There is no dysplasia or foveolar metaplasia. ??Shadia glands are present. ??No organisms are identified. C. ?Specimen did not survive histologic processing. ?? Clinical History: Nausea with vomiting, family history of Crohn's disease in the first degree relative. Clinically significant diarrhea of unexplained origin Procedure: Upper GI endoscopy, colonoscopy Finding: Gastric antrum ??erythematous (hyperemic), 2nd part duodenum ??normal, entire examined colon - normal Gross Description: The specimen is received in 3 parts all labeled with the patient's name. A. ??The container is labeled antrum . ??It is a 5 mm pink-shaffer tissue fragment. ??Entirely submitted in one cassette. B. ??The container is labeled duodenum . ??It is a 4 mm pink-shaffer tissue fragment. ??Entirely submitted in one cassette. C. the container is labeled ascending entire colon . ??It is a less than 1 mm shaffer tissue fragment entirely submitted in one cassette ??VLAD Winter/Tonny Olson M.D. The performance characteristics of some immunohistochemical stains, fluorescence in-situ hybridization tests and immunophenotyping by flow cytometry cited in this report (if any) were determined by the Surgical Pathology Department at [facility] as part of an ongoing software quality automation engineer program and in compliance with federally mandated [...] a high complexity laboratory under CLIA '88. The FDA has determined that such clearance or approval is not necessary. ??This test is used for clinical purposes. ??It should not be regarded as investigational or for research. ??Nevertheless, federal rules concerning the medical use of analyte specific reagents require that the following disclaimer be attached to the report: This test was developed and its performance characteristics determined by the Surgical Pathology Department [facility]. ??It has not been cleared or approved by the U. S. Food and Drug Administration. Jennifer Zazueta MD LAB PATHOLOGY ORDERABLE S Final Result * SURGICAL PATHOLOGY (02/25/2017 12:00 AM CDT) Narrative 02/25/2017 12:00 AM CDT Ordered by an unspecified provider. Historical Provider LAB PATHOLOGY ORDERABLES Final Result * COLONOSCOPY REPORT (02/25/2017) Anatomical Region Laterality Modality Other Provider Scanning GI PROCEDURE ORDERABLES Final Result * UPPER GASTROINTESTINAL ENDOSCOPY REPORT (02/25/2017) Anatomical Region Laterality Modality Other us Provider Scanning GI PROCEDURE ORDERABLES Final Result documented in this encounter Visit Diagnoses Not on filedocumented in this encounter Care Teams Director Of Science Relationship Specialty Start [place] [address] [address] [place] [id number] PCP - General 12/22/16 03/14/17 documented as of this encounter
--- OUTSIDE RECORDS SUMMARY | 2024-08-09 23:37 | XMS_ITS | Encounter Summary ---
Author Organization [facility] Address [address] [address] Care Team Providers Care Powertrain Engineer Name Role Phone Kelly Olson NP Primary Care Provider +- [phone] Reason for Visit * Reason Comments Preventative Care Well women exam Anxiety Encounter Details Date Type Department Care Team (Latest Contact Info) Description 09/09/2017 7:45 AM RN DOCUMENT IMPROVEMENT Office Visit Family Care at [facility] [address] [address] Kelly Olson NP [id number] [place] [id number] Well female exam with routine gynecological exam (Primary Dx); Screening for malignant neoplasm of cervix; Hypothyroidism, unspecified type; Anxiety; Screening mammogram, encounter for; BMI 37.0-37.9, adult Social History Tobacco Use Types Packs/Day Years Used Date Smoking Tobacco: Never Smokeless Tobacco: Never Alcohol Use Standard Drinks/Week Comments Yes 0 (1 standard drink = 0.6 oz pur e alcohol) Comments No Sex and Gender Information Value Date Recorded Sex Assigned at Not on file Legal Sex Female 1:09 AM RN DOCUMENT IMPROVEMENT Gender Identity Not on file Sexual Orientation Not on file 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 documented as of this encounter Last Filed Vital Signs Vital Sign Reading Time Taken Comments Blood Pressure 142/66 09/09/2017 7:57 AM RN DOCUMENT IMPROVEMENT Pulse 81 09/09/2017 7:57 AM RN DOCUMENT IMPROVEMENT Temperature 36.6 ??C (97.8 ??F) 09/09/2017 7:57 AM CS T Respiratory Rate - - Oxygen Saturation - - Inhaled Oxygen Concentration - - Weight 98.4 kg (217 lb) 09/09/2017 7:57 AM RN DOCUMENT IMPROVEMENT Height 161.3 cm (5' 3.5 ) 09/09/2017 7:57 AM RN DOCUMENT IMPROVEMENT Body Mass Index 37.84 09/09/2017 7:57 AM RN DOCUMENT IMPROVEMENT documented in this encounter Ordered Prescriptions Prescription Sig Dispense Quantity Refills Last Filled Start Date End Date ALPRAZolam (XANAX) 0.5 mg tablet Take 1 tablet (0.5 mg total) by mouth 3 (three) times a day as needed for anxiety. 30 tablet 09/09/2017 09/01/2019 citalopram (CeleXA) 40 mg tablet Take 1 tablet (40 mg total) by mouth daily. 30 tablet 5 09/09/2017 09/06/2018 documented in this encounter Progress Notes * Kelly Olson, HOSPITAL SALES REPRESENTATIVE - 09/09/2017 7:45 AM CST Subjective/Objective Patient ID: Deejay Alford is a 42 y.o. female. Chief Complaint Preventative Care (Well women exam) and Anxiety Here for [employer]. Needing screening for STD- with extra marital affair. Now . More stress. Children in counseling. Anxiety Symptoms include decreased concentration and nervous/anxious behavior. Patient reports no nausea orshortness of breath. Review of Systems Constitutional: Negative for chills and fever. HENT: Negative. Eyes: Negative. Respiratory: Negative for cough, shortness of breath and wheezing. Cardiovascular: Negative. Gastrointestinal: Negative for abdominal pain, constipation, diarrhea, nausea and vomiting. Endocrine: Negative. Genitourinary: Negative for difficulty urinating, dysuria, frequency, hematuria, menstrual problem and vaginal discharge. Musculoskeletal: Negative. Skin: Negative. Allergic/Immunologic: Negative. Neurological: Negative. Hematological: Negative. Psychiatric/Behavioral: Positive for decreased concentration and sleep disturbance. The patient is nervous/anxious. Using melatonin to get to sleep Will often wake up thru night Breast: Negative. Physical Exam Constitutional: She is oriented to person, place, and time. She appears well- developed and well-nourished. HENT: Head: Normocephalic. Right Ear: External ear normal. Left Ear: External ear normal. Nose: Nose normal. Mouth/Throat: Oropharynx is clear and moist. Eyes: Conjunctivae and EOM are normal. Pupils are equal, round, and reactive to light. Neck: Normal range of motion. Neck supple. No JVD present. No tracheal deviation present. No thyromegaly present. Cardiovascular: Normal rate, regular rhythm, normal heart sounds and intact distal pulses. Pulmonary/Chest: Effort normal and breath sounds normal. Right breast exhibits no inverted nipple, no mass, no nipple discharge, no skin change and no tenderness. Left breast exhibits no inverted nipple, no mass, no nipple discharge, no skin change and no tenderness. Abdominal: Soft. Bowel sounds are normal. She exhibits no distension. There is no tenderness. Thereis no rebound and no guarding. No hernia. Hernia confirmed negative in the right inguinal area and confirmed negative in the left inguinal area. Genitourinary: Vagina normal and uterus normal. There is no rash, tenderness or lesion on the rightlabia. There is no rash, tenderness or lesion on the left labia. Cervix exhibits no discharge and no friability. Right adnexum displays no mass, no tenderness and no fullness. Left adnexum displays no mass, no tenderness and no fullness. Musculoskeletal: Normal range of motion. She exhibits no edema or tenderness. Lymphadenopathy: She has no cervical adenopathy. Right: No inguinal adenopathy present. Left: No inguinal adenopathy present. Neurological: She is alert and oriented to person, place, and time. She has normal reflexes. No cranial nerve deficit. Skin: Skin is warm and dry. Capillary refill takes less than 2 seconds. No rash noted. Psychiatric: She has a normal mood and affect. Her behavior is normal. Judgment and thought contentnormal. Assessment/Plan Diagnoses and all orders for this visit: Well female exam with routine gynecological exam (Primary) Assessment & Plan: Pap smear done. Will follow ACOG guidelines. Plan to obtain HSV, RPR, and HIV Orders: - Cytology; Future - CBC with auto differential; Future - Comprehensive metabolic panel; Future - TSH; Future - Lipid panel; Future - HIV-1 and HIV-2 antibody with P24 antigen immunoassay; Future - HSV 1 and 2 antibodies IgG, IgM; Future - RPR, serum; Future Screening for malignant neoplasm of cervix Assessment & Plan: As above. Hypothyroidism, unspecified type - TSH; Future Anxiety Assessment & Plan: Uncontrolled with recent stress with marriage and separation. Plan to increase Citalopram to 40 mg daily. Start Xanax 0.5 mg 1 every 8hrs prn. Screening mammogram, encounter for Assessment & Plan: RX for mammogram BMI 37.0-37.9, adult Assessment & Plan: Weight is unchanged. Discussed the patient's BMI. The BMI is above average; BMI management plan is completed. General weight loss/lifestyle modification strategies discussed (elicit support from others; identify saboteurs; non-food rewards, etc). Other orders - citalopram (CeleXA) 40 mg tablet; Take 1 tablet (40 mg total) by mouth daily. - ALPRAZolam (XANAX) 0.5 mg tablet; Take 1 tablet (0.5 mg total) by mouth 3 (three) times a day as needed for anxiety. DOCUMENT IMPROVEMENT documented in this encounter Miscellaneous Notes * Assessment & Plan Note - Kelly Olson NP - 09/09/2017 9:22 AM RN DOCUMENT IMPROVEMENT Associated Problem(s): BMI 37.0-37.9, adult Weight is unchanged. Discussed the patient's BMI. The BMI is above average; BMI management plan is completed. General weight loss/lifestyle modification strategies discussed (elicit support from others; identify saboteurs; non-food rewards, etc). DOCUMENT IMPROVEMENT * Assessment & Plan Note - Kelly Olson NP - 09/09/2017 9:19 AM RN DOCUMENT IMPROVEMENT Associated Problem(s): Anxiety Uncontrolled with recent stress with marriage and separation. Plan to increase Citalopram to 40 mg daily. Start Xanax 0.5 mg 1 every 8hrs prn. DOCUMENT IMPROVEMENT * Assessment & Plan Note - Kelly Olson NP - 09/09/2017 9:18 AM RN DOCUMENT IMPROVEMENT Associated Problem(s): Screening mammogram, encounter for (Resolved 01/09/2020) RX for mammogram DOCUMENT IMPROVEMENT * Assessment & Plan Note - Kelly Olson NP - 09/09/2017 9:18 AM RN DOCUMENT IMPROVEMENT Associated Problem(s): Screening for malignant neoplasm of cervix (Resolved 01/09/2020) As above. DOCUMENT IMPROVEMENT * Assessment & Plan Note - Kelly Olson NP - 09/09/2017 9:16 AM RN DOCUMENT IMPROVEMENT Associated Problem(s): Well female exam with routine gynecological exam (Resolved 01/09/2020) Pap smear done. Will follow ACOG guidelines. Plan to obtain HSV, RPR, and HIV DOCUMENT IMPROVEMENT documented in this encounter Plan of Treatment Not on file documented as of this encounter Procedures Procedure Name Priority Date/Time Associated Diagnosis Comments CYTOLOGY Routine 09/09/2017 7:42 AM RN DOCUMENT IMPROVEMENT Well female exam with routine gynecological exam documented in this encounter Results * RPR, serum (09/27/2017 1:40 PM RN DOCUMENT IMPROVEMENT) RPR Non-Reactiv e Non-Reactiv e TADOENER Blood specimen (specimen) 09/27/2017 1:40 PM RN DOCUMENT IMPROVEMENT 09/27/2017 2:54 PM RN DOCUMENT IMPROVEMENT Narrative [facility] - 09/28/2017 12:06 PM RN DOCUMENT IMPROVEMENT Kelly Olson NP LAB MICROBIOLOGY - GENERAL ORDERABLES Final Result [facility] [address] [place] [address] * HSV 1 and 2 antibodies IgG, IgM (09/27/2017 1:40 PM RN DOCUMENT IMPROVEMENT) Pathologist [facility] HSV 1 IgG Positive Negative [facility] HSV 2 IgG Negative Negative [facility] HSV 1/2 IgM Negative Negative [facility] Comment: ADDITIONAL INFORMATION This test has been modified from the log deckman's instructions. Its performance characteristics were determined by [facility] in a manner consistent with CLIA requirements. This test has not been cleared or approved by the U.S. Food and Drug Administration. Test Performed by: [facility] [address] [place] [address] Blood specimen (specimen) 09/27/2017 1:40 PM RN DOCUMENT IMPROVEMENT 09/27/2017 2:54 PM RN DOCUMENT IMPROVEMENT Narrative [facility] - 09/29/2017 7:12 PM RN DOCUMENT IMPROVEMENT Kelly Olson NP LAB MICROBIOLOGY - GENERAL ORDERABLES Final Result Performing Organization Address City/[facility]/ZIP Co de Phone Number [facility] [address] [place] [address] * HIV-1 and HIV-2 antibody with P24 antigen immunoassay (09/27/2017 1:40 PM RN DOCUMENT IMPROVEMENT) Pathologist [facility] HIV 1/2 ab + p24 ag Nonreactive [facility] Blood specimen (specimen) 09/27/2017 1:40 PM RN DOCUMENT IMPROVEMENT 09/27/2017 2:54 PM RN DOCUMENT IMPROVEMENT Narrative [facility] - 09/27/2017 4:17 PM RN DOCUMENT IMPROVEMENT Kelly Olson NP LAB MICROBIOLOGY - GENERAL ORDERABLES Final Result [facility] [address] [place] [address] * (ABNORMAL) Lipid panel (09/27/2017 1:40 PM RN DOCUMENT IMPROVEMENT) [facility] Signature Cholesterol 255(H) 100 - 200 mg/dL [facility] Comment: Interpretive Data Desirable: ?<200 mg/dL Borderline high: ??200-239 mg/dL High: ? >240 mg/dL Current interpretive data was last revised on 2016. Triglycerides 170(H) 10 - 150 mg/dL [facility] Comment: Interpretive Data Desirable: ? < 150 ? mg/dL Borderline High: ? 150 - 199 mg/dL High: ?200 - 499 mg/dL Very High: ? > or = 499 ??mg/dL Current interpretive data was last revised on 2016. HDL 51 40 - 59 mg/dL [facility] Comment: Interpretive Data Less than 40 mg/dL - Low; A major risk factor for heart disease. Greater than or equal to 60 mg/dL - High; ??Considered protective of heart disease. Current interpretive data was last revised on 2016. LDL, calculated 170(H) 60 - 129 mg/dL [facility] Comment: Interpretive Data Optimal: ? < 100 mg/dL Near Optimal: ?100 - 129 mg/dL Borderline High: ?? 130 - 159 mg/dL High: ?> 160 mg/dL Current interpretive data was last revised on 2016. Non-HDL Cholesterol 204 mg/dL [facility] Comment: Interpretive Data When triglycerides are >200 mg/dL, non-HDL C is a secondary target of therapy, with a goal 30 mg/dL higher than the identified LDL-C goal. Current interpretive data was last revised 2016. Blood specimen (specimen) 09/27/2017 1:40 PM RN DOCUMENT IMPROVEMENT 09/27/2017 2:54 PM RN DOCUMENT IMPROVEMENT Narrative [facility] - 09/27/2017 3:32 PM RN DOCUMENT IMPROVEMENT Kelly Olson HOSPITAL SALES REPRESENTATIVE LAB BLOOD ORDERABLES Final Result Performing Organization Address [facility] Co de Phone Number [facility] [address] [place] [address] * TSH (09/27/2017 1:40 PM RN DOCUMENT IMPROVEMENT) Pathologist [facility] Thyroid Stimulating Hormone 2.36 0.45 - 5.33 mcIUnit/mL [facility] Blood specimen (specimen) 09/27/2017 1:40 PM RN DOCUMENT IMPROVEMENT 09/27/2017 2:54 PM RN DOCUMENT IMPROVEMENT Narrative [facility] - 09/27/2017 3:37 PM RN DOCUMENT IMPROVEMENT Kelly Olson HOSPITAL SALES REPRESENTATIVE LAB BLOOD ORDERABLES Final Result Performing Organization Address [facility] Co de Phone Number [facility] [place]OR [address] [address] [place] [address] * (ABNORMAL) Comprehensive metabolic panel (09/27/2017 1:40 PM RN DOCUMENT IMPROVEMENT) Pathologist [facility] Sodium 134(L) 135 - 145 mmol/L [facility] Potassium, pl 3.5 3.5 - 5.1 mmol/L [facility] CO2 25 22 - 32 mmol/L [facility] BUN 13 8 - 24 mg/dL [facility] Glucose 112 70 - 199 mg/dL [facility] Comment: Interpretive Data Fasting glucose [...] Current interpretive data was last revised 2017. Creatinine 0.79 0.60 - 1.30 mg/dL [facility] Calcium 9.5 8.4 - 10.5 mg/dL [facility] Chloride 100 100 - 114 mmol/L [facility] Albumin 4.6 3.2 - 4.8 g/dL [facility] AST 17 7 - 40 Units/L [facility] ALT 14 1 - 45 Units/L [facility] Alk phos 47 30 - 110 Units/L [facility] Bilirubin, total 0.50 0.10 - 1.30 mg/dL [facility] Protein, pl 7.9 6.0 - 8.3 g/dL [facility] Anion gap 12 8 - 16 mmol/L [facility] Blood specimen (specimen) 09/27/2017 1:40 PM RN DOCUMENT IMPROVEMENT 09/27/2017 2:54 PM RN DOCUMENT IMPROVEMENT Narrative [facility] - 09/27/2017 3:32 PM RN DOCUMENT IMPROVEMENT Kelly Olson HOSPITAL SALES REPRESENTATIVE LAB [place]LOOD [place] [address] [address] Department [place] [address] * (ABNORMAL) CBC with auto differential (09/27/2017 1:40 PM RN DOCUMENT IMPROVEMENT) WBC 11.71(H) 3.80 - 9.90 K/cumm [facility] RBC 4.23 3.90 - 5.20 M/cumm [facility] Hgb 12.2 11.9 - 15.5 g/dL [facility] Hct 37.2 35.6 - 45.5 % [facility] MCV 87.9 81.3 - 96.4 fL [facility] MCH 28.8 27.1 - 33.3 pg [facility] MCHC 32.8 32.3 - 35.7 g/dL [facility] RDW CV 14.0 11.1 - 14.9 % [facility] RDW SD 45.3 35.7 - 48.1 fL [facility] Plt 316 150 - 400 K/cumm [facility] MPV 9.3 9.1 - 12.3 fL [facility] NRBC abs 0.00 0.00 - 0.01 K/cumm [facility] Blood specimen (specimen) 09/27/2017 1:40 PM RN DOCUMENT IMPROVEMENT 09/27/2017 2:54 PM RN DOCUMENT IMPROVEMENT Narrative [facility] - 09/27/2017 3:30 PM RN DOCUMENT IMPROVEMENT Kelly Olson HOSPITAL SALES REPRESENTATIVE LAB BLOOD ORDERABLES Final Result [facility] [address] Department [place] [address] * Cytology (09/09/2017 7:42 AM RN DOCUMENT IMPROVEMENT) Fluid 09/09/2017 7:42 AM RN DOCUMENT IMPROVEMENT 09/09/2017 7:42 AM RN DOCUMENT IMPROVEMENT Narrative PATHOLOGY - 09/10/2017 3:13 PM RN DOCUMENT IMPROVEMENT [facility] Department of Pathology [address] [place] [address] Final Report with Addendum ?Patient Name: DEEJAY ALFORD Address: [address] [place] [address] Service: Laboratory ??[place], [place] ??[id number] Location: Lab Taken: 09/09/2017 Gender: F Received 09/09/2017 : 1975 (Age: 42) Hospital #: [id number] Accessioned: 09/10/2017 ?? Patient Type: Ref Lab Reported 09/10/2017 Physician(s): Klely Olson NCarmen. Kelly Olson N.Mattie. ?? Diagnosis: Source of Specimen: ? Imaged Thinprep Pap Test plus HPV - Liner Installer Cytologic Material Specimen Adequacy: ?- Satisfactory for evaluation; endocervical/transformation zone component present General Category: ?- Negative for intraepithelial lesion or malignancy ?? CLARIBEL Sage(ASCP) Report Electronically Reviewed and Signed Out By ??CLARIBEL Sage(ASCP) ??09/10/2017 15:13:50 ??Addenda: HPV RNA Test Interpretation NEGATIVE for types 16, 18, 31, 33, 35, 39, 45, 51, 52, 56, 58, 59, 66 and 68. Test performed utilizing Gen-Probe Aptima assay. ?? CLARIBEL Huffman(ASCP) ??Report Electronically Reviewed and Signed Out By ??CLARIBEL Huffman(ASCP) ??09/10/2017 14:20:10 ? Specimen(s) Received: A: Imaged Thinprep Pap Test plus HPV - Liner Installer Cytologic Material Clinical History: Last Menstrual Period: 09/06/17 Menstrual History: Previous Negative Pap The Pap test is a screening test used to aid in the detection of cervical cancer and its precursors. ??It should not be the sole means by which malignant and premalignant lesions are diagnosed. ??Both false negative and false positive results may occur. ?? It also has poor sensitivity for the detection of endometrial lesions and should not be used to evaluate suspected endometrial abnormalities. ??For these reasons it is most important to obtain Pap tests at regular intervals. The performance characteristics of some immunohistochemical stains, fluorescence in-situ hybridization tests and immunophenotyping by flow cytometry cited in this report (if any) were determined by the Surgical Pathology Department at [facility] as part of an ongoing quality assurance clerk program and in compliance with federally mandated [...] characteristics determined by the Surgical Pathology Department [facility]. ??It has not been cleared or approved by the U. S. Food and Drug Administration. Kelly Olson NP LAB CYTOLOGY ORDERABLES Fi nal Result PATHOLOGY [address] [place] [address] documented in this encounter Visit Diagnoses Diagnosis Well female exam with routine gynecological exam- Primary Routine gynecological examination Screening for malignant neoplasm of cervix Screening for malignant neoplasm of the cervix Hypothyroidism, unspecified type Anxiety Anxiety state, unspecified Screening mammogram, encounter for BMI 37.0-37.9, adult Well female exam with routine gynecological exam Routine gynecological examination Hypothyroidism, unspecified type documented in this encounter Discontinued Medications Medication Sig Discontinue Reason Start Date End Da te sodium, potassium & mag sulfates (SUPREP BOWEL KIT) 17.5-3.13-1.6 gram recon solnIndications:Bowel Evacuation Mix bottle of Suprep with water and drink at 4pm, repeat and drink at 10pm day before procedure Therapy completed 02/17/2017 09/09/2017 citalopram (CeleXA) 20 mg tablet Take 1 tablet (20 mg total) by mouth daily. 04/08/2017 09/09/2017 ALPRAZolam (XANAX) 0.25 mg tablet take 1 tablet by ORAL route every day at bedtime 10/25/2015 09/09/2017 documented as of this encounter Care Teams Powertrain Engineer Relationship Specialty [place] [address] [address] PCP - General 03/15/17 06/20/18 documented as of this encounter
--- OUTSIDE RECORDS SUMMARY | 2024-08-09 23:37 | XMS_ITS | Encounter Summary ---
Author Organization [facility] Healthcare Address [address] [place] [address] Care Team Providers Care Chimney Construction Supervisor Name Role Phone Kelly Olson NP Primary Care Provider [phone]- [phone] Encounter Details Date Type Department Care Team (Late st Contact Info) Description 09/27/2017 1:45 PM EYEGLASS FITTER Lab [place] [id number] [place] [address] Britt[place] [id number] [place] [place] [address] [place] [address] [place] [address] Well female exam with routine gynecological exam; Hypothyroidism, unspecified type Discharge Disposition: Discharge to home or self care Social History Tobacco Use Types Packs/Day Years Used Date Smoking Tobacco: Never Smokeless Tobacco: Never Alcohol Use Standard Drinks/Week Comments Yes 0 (1 standard drink = 0.6 oz pur e alcohol) Comments No Sex and Gender Information Value Date Recorded Sex Assigned at Not on file Legal Sex Female 1:09 AM EYEGLASS FITTER Gender Identity Not on file Sexual Orientation [...] Priority Date/Time Associated Diagnosis Comments EGFR Routine 09/27/2017 1:40 PM EYEGLASS FITTER Well female exam with routine gynecological exam DIFFERENTIAL AUTO Routine 09/27/2017 1:4 0 PM EYEGLASS FITTER Well female exam with routine gynecological exam HSV 1 AND 2 ANTIBODIES, IGG, IGM Routine 09/27/2017 1:40 PM EYEGLASS FITTER Well female exam with routine gynecological exam HIV 1/2 ANTIBODY PLUS P24 ANTIGEN Routine 09/27/2017 1:40 PM EYEGLASS FITTER Well female exam with routine gynecological exam CBC WITH AUTO DIFFERENTIAL Routine 09/27/2017 1:40 PM EYEGLASS FITTER Well female exam with routine gynecological exam RPR Routine 09/27/2017 1:40 PM EYEGLASS FITTER Well female exam with routine gynecological exam TSH Routine 09/27/2017 1:40 PM EYEGLASS FITTER Well female exam with routine gynecological exam Hypothyroidism, unspecified type LIPID PANEL Routine 09/27/2017 1:40 PM EYEGLASS FITTER Well female exam with routine gynecological exam COMPREHENSIVE METABOLIC PANEL Routine 09/27/2017 1:40 PM EYEGLASS FITTER Well female exam with routine gynecological exam DISCHARGE LABORATORY CUMULATIVE REPORT 09/27/2017 12:00 AM EYEGLASS FITTER documented in this encounter Results * eGFR (09/27/2017 1:40 PM EYEGLASS FITTER) [facility] eGFR 91 mL/min/1.7 3 m2 [facility] Comment: Interpretive Data Reference Interval Normal ?>/= 90 mL/min/1.73m2 Mildly decreased* ? 60 - 89 mL/min/1.73m2 Mildly to moderately decreased ?45 - 59 mL/min/1.73m2 Moderately to severely decreased ??30 - 44 mL/min/1.73m2 Severely decreased ?15 - 29 mL/min/1.73m2 Kidney Failure ?< 15 ??mL/min/1.73m2 *Relative to young adult level If -Marshallese multiply value by 1.16. Estimated glomerular filtration [...] was last reviewed 2016. Blood specimen (specimen) 09/27/2017 1:40 PM EYEGLASS FITTER 09/27/2017 3:02 PM EYEGLASS FITTER Narrative [facility] - 09/27/2017 3:32 PM EYEGLASS FITTER us Kelly Olson MARKLOGIC DEVELOPER LAB BLOOD ORDERABLES Final Result [facility] [address] Department [place] [address] * (ABNORMAL) Differential, auto (09/27/2017 1:40 PM EYEGLASS FITTER) Neutrophil pct 65.7 % [facility] Imm gran pct 0.4 % [facility] Lymphocyte pct 26.5 % [facility] Monocyte pct 6.7 % [facility] Eosinophil pct 0.0 % [facility] Basophil pct 0.4 % [facility] Neutrophil abs 7.69(H) 1.70 - 6.50 K/cumm [facility] Imm gran abs 0.05 0.00 - 0.10 K/cumm [facility] Lymphocyte abs 3.10 0.80 - 3.30 K/cumm [facility] Monocyte abs 0.79 0.20 - 0.80 K/cumm [facility] Eosinophil abs 0.03 0.00 - 0.50 K/cumm [facility] Basophil abs 0.05 0.00 - 0.10 K/cumm [facility] Blood specimen (specimen) 09/27/2017 1:40 PM EYEGLASS FITTER 09/27/2017 2:54 PM EYEGLASS FITTER Narrative [facility] - 09/27/2017 3:30 PM EYEGLASS FITTER Kelly Olson NP LAB BLOOD ORDERABLES Final Result Performing Organization Address [facility] Co de Phone Number [facility] [address] [address] [facility] [place] [address] * RPR, serum (09/27/2017 1:40 PM EYEGLASS FITTER) Pathologist [facility] RPR Non-Reactiv e Non-Reactiv e [facility] Blood specimen (specimen) 09/27/2017 1:40 PM EYEGLASS FITTER 09/27/2017 2:54 PM EYEGLASS FITTER Narrative [facility] - 09/28/2017 12:06 PM EYEGLASS FITTER Kelly Olson NP LAB MICROBIOLOGY - GENERAL ORDERABLES Final Result Performing Organization Address [facility] de Phone Number [facility] [address] [address] [facility] [place] [address] * HSV 1 and 2 antibodies IgG, IgM (09/27/2017 1:40 PM EYEGLASS FITTER) Pathologist [facility] HSV 1 IgG Positive Negative [facility] HSV 2 IgG Negative Negative [facility] HSV 1/2 IgM Negative Negative [facility] Comment: ADDITIONAL INFORMATION This test has been modified from the rehab nurse's instructions. Its performance characteristics were determined by [facility] in a manner consistent with CLIA requirements. This test has not been cleared or approved by the U.S. Food and Drug Administration. Test Performed by: [facility] - [address] [address] Blood specimen (specimen) 09/27/2017 1:40 PM EYEGLASS FITTER 09/27/2017 2:54 PM EYEGLASS FITTER Narrative [facility] - 09/29/2017 7:12 PM EYEGLASS FITTER Kelly Olson NP LAB MICROBIOLOGY - GENERAL ORDERABLES Final Result Performing Organization Address [facility] de Phone Number [facility] [address] [address] [facility] [place] [address] * HIV-1 and HIV-2 antibody with P24 antigen immunoassay (09/27/2017 1:40 PM EYEGLASS FITTER) [facility] HIV 1/2 ab + p24 ag Nonreactive [facility] Blood specimen (specimen) 09/27/2017 1:40 PM EYEGLASS FITTER 09/27/2017 2:54 PM EYEGLASS FITTER Narrative [facility] - 09/27/2017 4:17 PM EYEGLASS FITTER Kelly Olson NP LAB MICROBIOLOGY - GENERAL ORDERABLES Final Result Performing Organization Address [facility] Phone Number [facility] [address] [place] [address] * (ABNORMAL) Lipid panel (09/27/2017 1:40 PM EYEGLASS FITTER) [facility] Cholesterol 255(H) 100 - 200 mg/dL [facility] Comment: Interpretive Data Desirable: ?<200 mg/dL Borderline high: ??200-239 mg/dL High: ? >240 mg/dL Current interpretive data was last revised on 2016. Triglycerides 170(H) 10 - 150 mg/dL [facility] Comment: Interpretive Data Desirable: ? < 150 ? mg/dL Borderline High: ? 150 - 199 mg/dL High: ?200 - 499 mg/dL Very High: ? > or = 499 ??mg/dL Current interpretive data was last revised on 2016. HDL 51 40 - 59 mg/dL [facility] Comment: Interpretive Data Less than 40 mg/dL [...] revised on 2016. Non-HDL Cholesterol 204 mg/dL [facility] Comment: Interpretive Data When triglycerides are >200 mg/dL, non-HDL C is a secondary target of therapy, with a goal 30 mg/dL higher than the identified LDL-C goal. Current interpretive data was last revised 2016. Blood specimen (specimen) 09/27/2017 1:40 PM EYEGLASS FITTER 09/27/2017 2:54 PM EYEGLASS FITTER Narrative [facility] - 09/27/2017 3:32 PM EYEGLASS FITTER Kelly Olson NP LAB BLOOD ORDERABLES Final Result Performing Organization Address [facility] Co de Phone Number [place] [address] [place] [address] * TSH (09/27/2017 1:40 PM EYEGLASS FITTER) Thyroid Stimulating Hormone 2.36 0.45 - 5.33 mcIUnit/mL [facility] Blood specimen (specimen) 09/27/2017 1:40 PM EYEGLASS FITTER 09/27/2017 2:54 PM EYEGLASS FITTER Narrative [facility] - 09/27/2017 3:37 PM EYEGLASS FITTER Kelly Olson NP LAB BLOOD ORDERABLES Final Result Performing Organization Address City/[facility] Co de Phone Number [place] [address] [place] [address] * (ABNORMAL) Comprehensive metabolic panel (09/27/2017 1:40 PM EYEGLASS FITTER) Sodium 134(L) 135 - 145 mmol/L [facility] Potassium, pl 3.5 3.5 - 5.1 mmol/L [facility] CO2 25 22 - 32 mmol/L [facility] BUN 13 8 - 24 mg/dL [facility] Glucose 112 70 - 199 mg/dL [facility] Comment: [...] Chloride 100 100 - 114 mmol/L [facility] Albumin 4.6 3.2 - 4.8 g/dL CERNER [...] CH Blood specimen (specimen) 09/27/2017 1:40 PM EYEGLASS FITTER 09/27/2017 2:54 PM EYEGLASS FITTER Narrative [facility] - 09/27/2017 3:32 PM EYEGLASS FITTER us Kelly Olson NP LAB BLOOD ORDERABLES Final Result [facility] [address] Department [place] [address] * (ABNORMAL) CBC with auto differential (09/27/2017 1:40 PM EYEGLASS FITTER) WBC 11.71(H) 3.80 - 9.90 K/cumm [facility] RBC 4.23 3.90 - 5.20 M/cumm [facility] Hgb 12.2 11.9 - 15.5 g/dL [facility] Hct 37.2 35.6 - 45.5 % [facility] MCV 87.9 81.3 - 96.4 fL [facility] MCH 28.8 27.1 - 33.3 pg [facility]ERNER MCHC 32.8 32.3 - 35.7 g/dL [facility] RDW CV 14.0 11.1 - 14.9 % [facility] RDW SD 45.3 35.7 - 48.1 fL [facility] Plt 316 150 - 400 K/cumm [facility] MPV 9.3 9.1 - 12.3 fL [facility] NRBC abs 0.00 0.00 - 0.01 K/cumm [facility] Blood specimen (specimen) 09/27/2017 1:40 PM EYEGLASS FITTER 09/27/2017 2:54 PM EYEGLASS FITTER Narrative [facility] - 09/27/2017 3:30 PM EYEGLASS FITTER Kelly Olson NP LAB BLOOD ORDERABLES Final Result [facility] [address] [address] Department [place] [address] * DISCHARGE LABORATORY CUMULATIVE REPORT (09/27/2017 12:00 AM EYEGLASS FITTER) Narrative 09/27/2017 12:00 AM EYEGLASS FITTER Ordered by an unspecified provider. Historical Provider LAB BLOOD ORDERABLES Tahira l Result documented in this encounter Visit Diagnoses Diagnosis Well female exam with routine gynecological exam Routine gynecological examination Hypothyroidism, unspecified type documented in this encounter Care Teams Chimney Construction Supervisor Relationship Specialty Start Date End Date Kelly Olson, NAWAF [address] [address] PCP - General 03/15/17 06/20/18 documented as of this encounter
--- OUTSIDE RECORDS SUMMARY | 2024-08-09 23:37 | XMS_ITS | Encounter Summary ---
Author Organization [facility] Address [address] [address] Care Team Providers Care Metal Gauge Maker Name Role Phone Kelly Olson NP Primary Care Provider [phone]- [phone] Reason for Visit * Reason Comments Pain Encounter Details Date Type Department Care Team (Late st Contact Info) Description 09/24/2017 9:15 AM LION HUNTER Office Visit [facility] Orthopedics and Sports Medicine [address] [place] [phone] Cuate Mcmullen MD [address] [place] [address] [address]ES [address] [address] Impingement syndrome of right shoulder (Primary Dx); Right shoulder pain, unspecified chronicity; Superior glenoid labrum lesion of right shoulder, initial encounter; Biceps tendinitis of right upper extremity Social History Tobacco Use Types Packs/Day Years Used Date Smoking Tobacco: Never Smokeless Tobacco: Never Alcohol Use Standard Drinks/Week Comments Yes 0 (1 standard drink = 0.6 oz pur e alcohol) Comments No Sex and Gender Information Value Date Recorded Sex Assigned at Not on file Legal Sex Female 1:09 AM LION HUNTER Gender Identity Not on file Sexual Orientation Not on file 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 documented as of this encounter Last Filed Vital Signs Vital Sign Reading Time Taken Comments Blood Pressure 134/88 09/24/2017 10:05 AM LION HUNTER Pulse 67 09/24/2017 10:05 AM LION HUNTER Temperature - - Respiratory Rate - - Oxygen Saturation - - Inhaled Oxygen Concentration - - Weight 98.4 kg (217 lb) 09/24/2017 10:05 AM LION HUNTER Height 161.3 cm (5' 3.5 ) 09/24/2017 10:05 AM CS T Body Mass Index 37.84 09/24/2017 10:05 AM LION HUNTER documented in this encounter Progress Notes * Cuate Mcmullen MD - 09/24/2017 9:15 AM CSTAssociated Order(s): LARGE JOINT ARTHROCENTESIS Post-Procedure Diagnose(s): Impingement syndrome of right shoulder; Biceps tendinitis of right upper extremity NEW PATIENT VISIT Subjective CHIEF COMPLAINT She had concerns including Pain of the Right Shoulder. 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 ALLERGIES She is allergic to cefazolin; sertraline; bacitracin; lidocaine; neomycin; polymyxin b; and pramoxine. SOCIAL HISTORY She reports that she has never smoked. She has never used smokeless tobacco. She reports that she drinks alcohol. She reports that she does not use drugs. FAMILY HISTORY Her family history includes Coronary artery disease in her other; Diabetes type II in her other; Hyperlipidemia in her brother and mother; Hypertension in her mother and other; Hypothyroidism in her mother; Lung cancer (age of onset: 39) in her father; Other in her sister; Skin cancer in her sister; Stroke in her other; Thyroid disease in her mother. REVIEW OF SYSTEMS Review of Systems Constitutional: [...] is not hyperactive. Objective PHYSICAL EXAM BP 134/88 Pulse 67 Ht 161.3 cm (5' 3.5 ) Wt 98.4 kg (217 lb) LMP 08/30/2017 BMI 37.84 kg/m?? Right shoulder Inspection Erythema: absent Swelling: [...] at 0 degrees: 60 degrees. Active abduction: 150 degrees. Active adduction: 40 degrees. Strength The patient has 5/5 strength throughout the right shoulder. Shoulder abduction: pain free, 5/5 and painful External rotation 5/5 and pain free Supraspinatus: 4/5 and pain free Bicep: 4/5 and pain free Neurovascular Radial pulse: 2+ Median: normal Radial: normal Ulnar: normal Tests Apprehension: positive Belly press: negative Cross arm: negative Speed's: positive Left shoulder The patient has normal inspection, palpation, range of motion, strength, and stability of the left shoulder. REVIEW OF X-RAYS/STUDIES/LABS XR Shoulder Right 4 Views Four views right shoulder shows type 3 acromion AC joint arthritis no fracture subluxation dislocation normal axillary view Assessment/Plan Олег was seen today for pain. Diagnoses and all orders for this visit: Impingement syndrome of right shoulder Right shoulder pain, unspecified chronicity - XR Shoulder Right 4 Views Superior glenoid labrum lesion of right shoulder, initial encounter Biceps tendinitis of right upper extremity Other orders - Ambulatory referral order to Physical Therapy -PT Evaluate and Treat; Future - Large Joint Arthrocentesis Large Joint (Hip, Knee, Shoulder) Injection Date/Time: 09/24/2017 10:43 AM Performed by: CUATE MCMULLEN Authorized by: CUATE MCMULLEN Consent Given by: Patient Timeout: prior to procedure the correct patient, procedure, and site was verified Verbal consent obtained: Yes Indications: Pain Location: Shoulder Site: R glenohumeral Needle Size: 22 G Approach: Posterior Medications: 80 mg methylPREDNISolone acetate 80 mg/mL Patient tolerance: Patient tolerated the procedure well with no immediate complications PLAN Injection physical therapy follow up me in 3 months to re-evaluate if she does not improve recommend arthroscopic subacromial decompression biceps tenodesis will get MRI before her next follow-up HUNTER documented in this encounter Plan of Treatment Not on file documented as of this encounter Procedures Procedure Name Priority Date/Time Associated Diagnosis Comments XR SHOULDER RIGHT 2 OR MORE VIEWS Schedule Routine, Read Routine (OP Routine) 09/24/2017 10:10 AM LION HUNTER Right shoulder pain, unspecified chronicity W[place] ARTHROCENTESIS ASPIR&/INJ MAJOR JT/BURSA W/O US Routine 09/24/2017 9:15 AM LION HUNTER Impingement syndrome of right shoulder Biceps tendinitis of right upper extremity documented in this encounter Results * XR Shoulder Right 4 Views (09/24/2017 10:10 AM LION HUNTER) Anatomical Region Laterality Modality Upper Extremities, Shoulder Right Radi ographic Imaging Narrative 09/24/2017 10:39 AM LION HUNTER Four views right shoulder shows type 3 acromion AC joint arthritis no fracture subluxation dislocation normal axillary view us Cuate Mcmullen MD IMG XR PROCEDURES Final Resu lt * W[place] ARTHROCENTESIS ASPIR&/INJ MAJOR JT/BURSA W/O US (09/24/2017 9:15 AM LION HUNTER) Narrative Cuate Mcmullen MD - 09/24/2017 9:15 AM LION HUNTER Cuate Mcmullen MD ? 09/24/2017 ??4:27 PM Large Joint (Hip, Knee, Shoulder) Injection Date/Time: 09/24/2017 10:43 AM Performed by: CUATE MCMULLEN Authorized by: CUATE MCMULLEN Consent Given by: ??Patient Timeout: prior to procedure the correct patient, procedure, and site was verified ?? Verbal consent obtained: Yes ?? Indications: ??Pain Location: ??Shoulder Site: ??R glenohumeral Needle Size: ??22 G Approach: ??Posterior Medications: ??80 mg methylPREDNISolone acetate 80 mg/mL Patient tolerance: ??Patient tolerated the procedure well with no immediate complications Cuate Mcmullen MD IN CLINIC/BEDSIDE ORDERABLES Final Result documented in this encounter Visit Diagnoses Diagnosis Impingement syndrome of right shoulder- Primary Right shoulder pain, unspecified chronicity Superior glenoid labrum lesion of right shoulder, initial encounter Biceps tendinitis of right upper extremity documented in this encounter Administered Medications Inactive Administered Medications - up to 3 most recent administrations Medication Order MAR Action Action Date Dose Rate Site methylPREDNISolone acetate (DEPO-medrol) injection 80 mg 80 mg, intra-articular, One-Time Injection, Starting on Wed09/24/17 at 1043, For 1 doseIndications:Impingement syndrome of right shoulder,Biceps tendinitis of right upper extremity Given 09/24/2017 10:43 AM LION HUNTER 80 mg documented in this encounter Care Teams Metal Gauge Maker Relationship Specialty [place] [address] [address] PCP - General 03/15/17 06/20/18 documented as of this encounter
--- OUTSIDE RECORDS SUMMARY | 2024-08-09 23:37 | XMS_ITS | Encounter Summary ---
Author Organization [facility] Address [address] [facility] [address] [place] [address] Care Team Providers Care Regenerator Operator Name Role Phone Brittani Agosto MD Primary Care Provider Encounter Details Date Type Department Care Team (Late st Contact Info) Description 02/17/2017 Orders Only [facility] [address] [facility] [address] [place] [address] Jennifer Zazueta [place] [id number] [place] [address] [address] [place] [address] Social History Tobacco Use Types Packs/Day Years Used Date Smoking Tobacco: Never Smokeless Tobacco: Never Alcohol Use Standard Drinks/Week Comments Yes 0 (1 standard drink = 0.6 oz pur e alcohol) Comments No Sex and Gender Information Value Date Recorded Sex Assigned at Not on file Legal Sex Female 1:09 AM DRUG ABUSE RESISTANCE EDUCATION OFFICER Gender Identity Not on file Sexual Orientation Not on file documented as of this encounter Ordered Prescriptions Prescription Sig Dispense Quantity Refills Last Filled Start Date End Date sodium, potassium & mag sulfates (SUPREP BOWEL KIT) 17.5-3.13-1.6 gram recon solnIndications:Markie wel Evacuation Mix bottle of Suprep with water and drink at 4pm, repeat and drink at 10pm day before procedure 354 mL 02/17/2017 8 documented in this encounter Plan of Treatment Not on file documented as of this encounter Visit Diagnoses Not on filedocumented in this encounter Care Teams Regenerator Operator Relationship Specialty Start [place] [address] [address] PCP - General 12/22/16 03/14/17 documented as of this encounter
--- OUTSIDE RECORDS SUMMARY | 2024-08-09 23:37 | XMS_ITS | Encounter Summary ---
Author Organization [facility] Address [address] [facility][note 3] [address] [place] [address] Care Team Providers Care Contract Serviceman Name Role Phone Brittani Agosto MD Primary Care Provider + -[phone] Encounter Details Date Type Department Care Team (Late st Contact Info) Description 03/10/2017 Telephone [facility] [id number] [place] [address] [address], [place] [address] Irina Camarillo CMA Social History Tobacco Use Types Packs/Day Years Used Date Smoking Tobacco: Never Smokeless Tobacco: Never Alcohol Use Standard Drinks/Week Comments Yes 0 (1 standard drink = 0.6 oz pur e alcohol) Comments No Sex and Gender Information Value Date Recorded Sex Assigned at Not on file Legal Sex Female 1:09 AM PEDIATRICIAN Gender Identity Not on file Sexual Orientation Not on file documented as of this encounter Miscellaneous Notes * Telephone Encounter - Irina Camarillo MA - 03/10/2017 3:46 PM CDT Pt notified of lab results * Telephone Encounter - Irina Camarillo MA - 03/10/2017 3:46 PM CDT ----- Message from Jennifer Zazueta MD sent at 02/24/2017 9:14 AM CDT ----- Inform patient that CRP, Amylase and TTG are normal. * Telephone Encounter - Irina Camarillo MA - 03/10/2017 3:46 PM CDT Pt notified of testing results * Telephone Encounter - Irina Camarillo MA - 03/10/2017 3:46 PM CDT ----- Message from Jennifer Zazueta MD sent at 03/01/2017 6:43 PM CDT ----- Inform patient that duodenal biopsy is benign Inform patient that gastric biopsy is benign. Helicobacter is negative. Inform the patient that colon biopsy is benign documented in this encounter Plan of Treatment Not on file documented as of this encounter Visit Diagnoses Not on filedocumented in this encounter Care Teams Contract Serviceman Relationship Specialty Start [place] [id number] [address] PCP - General 12/22/16 03/14/17 documented as of this encounter
--- OUTSIDE RECORDS SUMMARY | 2024-08-09 23:37 | XMS_ITS | Encounter Summary ---
Author Organization [facility] Healthcare Address [address] [place] [address] Care Team Providers Care Rn Mental Health Name Role Phone Kelly Olson NP Primary Care Provider +1- [phone] Encounter Details Date Type Department Care Team (Late st Contact Info) Description 09/09/2017 8:05 PM ANGIO TECHNOLOGIST Lab [address] [address] Social History Tobacco Use Types Packs/Day Years Used Date Smoking Tobacco: Never Smokeless Tobacco: Never Alcohol Use Standard Drinks/Week Comments Yes 0 (1 standard drink = 0.6 oz pur e alcohol) Comments No Sex and Gender Information Value Date Recorded Sex Assigned at Not on file Legal Sex Female 1:09 AM ANGIO TECHNOLOGIST Gender Identity Not on file Sexual Orientation Not on file 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 documented as of this encounter Plan of Treatment Not on file documented as of this encounter Procedures Procedure Name Priority Date/Time Associated Diagnosis Comments GONORRHEA DNA, THIN PREP Routine 09/09/2017 8:25 AM ANGIO TECHNOLOGIST CHLAMYDIA DNA, THIN PREP Routine 09/09/2017 8:25 AM ANGIO TECHNOLOGIST documented in this encounter Results * Gonorrhea DNA, Thin Prep (09/09/2017 8:25 AM ANGIO TECHNOLOGIST) Gonorrheae (GC) DNA, thin prep Negative Negative [facility] Comment: Interpretive Data This test has been developed to maximize the sensitivity of detection of infection while minimizing false positives, with the combined goals of enabling treatment of infection and interrupting the spread of infection, and is intended for medical purposes. Any result should be interpreted together with the clinical presentation and risk assessment, particularly the prevalence of infection in the patient's demographic group. ??Significant discrepancies should be evaluated by additional measures. Current Interpretive Data was last revised on 2016 Thin prep 09/09/2017 8:25 AM ANGIO TECHNOLOGIST 09/09/2017 8:04 PM ANGIO TECHNOLOGIST Narrative [facility] - 09/10/2017 11:24 AM ANGIO TECHNOLOGIST Kelly Olson NP LAB BLOOD ORDERABLES Final Result Performing Organization Address City/[facility]/ZIP Co de Phone Number [facility] [address] [place] [address] * Chlamydia DNA, Thin Prep (09/09/2017 8:25 AM ANGIO TECHNOLOGIST) Chlamydia Amplified RNA, Liquid-based pap Negative Negative [facility] Comment: Interpretive Data This test has been developed to maximize the sensitivity of detection of infection while minimizing false positives, with the combined goals of enabling treatment of infection and interrupting the spread of infection, and is intended for medical purposes. Any result should be interpreted together with the clinical presentation and risk assessment, particularly the prevalence of infection in the patient's demographic group. ??Significant discrepancies should be evaluated by additional measures. Current Interpretive Data was last revised on 2016 Thin prep 09/09/2017 8:25 AM ANGIO TECHNOLOGIST 09/09/2017 8:04 PM ANGIO TECHNOLOGIST Narrative [facility] - 09/10/2017 11:24 AM ANGIO TECHNOLOGIST Kelly Olson NP LAB BLOOD ORDERABLES Final Result [facility] [address] [facility] [place] [address] documented in this encounter Visit Diagnoses Not on filedocumented in this encounter Care Teams Rn Mental Health Relationship Specialty [place] [address] [address] [place] [id number] PCP - General 03/15/17 06/20/18 documented as of this encounter
--- OUTSIDE RECORDS SUMMARY | 2024-08-09 23:37 | XMS_ITS | Encounter Summary ---
Author Organization [facility] Address [address] [facility] [address] [place] [address] Care Team Providers Care Cad Drafter Name Role Phone Brittani Agosto MD Primary Care Provider [phone] Encounter Details Date Type Department Care Team (Late st Contact Info) Description 01/25/2017 Telephone Family Care at [facility] [address] [facility] [address] [place] [address] [place] [address] [facility] [address] [place] [address] Social History Tobacco Use Types Packs/Day Years Used Date Smoking Tobacco: Never Smokeless Tobacco: Never Alcohol Use Standard Drinks/Week Comments Yes 0 (1 standard drink = 0.6 oz pur e alcohol) Comments No Sex and Gender Information Value Date Recorded Sex Assigned at Not on file Legal Sex Female 1:09 AM VALET Gender Identity Not on file Sexual Orientation Not on file documented as of this encounter Miscellaneous Notes * Telephone Encounter - Mehdi Tang MA - 01/28/2017 4:27 PM CDT Called and left pt a message to call and schedule an [place] with Dr Mayers. * Telephone Encounter - Mehdi Tang MA - 01/28/2017 1:[address] Mayers [phone] * Telephone Encounter - Brittani Agosto MD - 01/28/2017 12:55 PM CDT Spoke with Kelly (kelly's patient). Agree with referral to GI - Dr. Mayers/[place]. Harding - could you call patient and give her contact information for Gi? Thank you documented in this encounter Plan of Treatment Not on file documented as of this encounter Visit Diagnoses Not on filedocumented in this encounter Care Teams Cad Drafter Relationship Specialty [place] [address] [address] PCP - General 12/22/16 03/14/17 documented as of this encounter
--- OUTSIDE RECORDS SUMMARY | 2024-08-09 23:37 | XMS_ITS | Encounter Summary ---
Author Organization [facility] Healthcare Address [address] [place] [address] Care Team Providers Care Asthma Educator Name Role Phone Brittani Agosto MD Primary Care Provider [phone] -[phone] Reason for Referral * Diagnostic Imaging (Routine) - Closed Specialty Diagnoses / Procedures Referred By Contac t Referred To Contact Diagnoses Right upper quadrant pain Procedures US Abdomen Limited Brittani Agosto MD Phone: tel: fax: Referral ID Status Reason Start Date Expiration Date Visits Re quested Visits Authorized [id number] Closed 01/20/2017 07/19/2017 1 1 Encounter Details Date Type Department Care Team (Latest Contact Info) Description 01/25/2017 10:59 AM CDT - 01/25/2017 11:59 PM CDT Hospital Encounter [place] [address] [address] Right upper quadrant pain Discharge Disposition: Discharge to home or self care Social History Tobacco Use Types Packs/Day Years Used Date Smoking Tobacco: Never Smokeless Tobacco: Never Alcohol Use Standard Drinks/Week Comments Yes 0 (1 standard drink = 0.6 oz pur e alcohol) Comments No Sex and Gender Information Value Date Recorded Sex Assigned at Not on file Legal Sex Female 1:09 AM ASSISTANT BUYER Gender Identity Not on file Sexual Orientation [...] Name Priority Date/Time Associated Diagnosis Comments US ABDOMEN LIMITED Schedule Routine, Read Routine (OP Routine) 01/25/2017 4:33 PM CDT Right upper quadrant pain documented in this encounter Results * US Abdomen Limited (01/25/2017 4:33 PM CDT) Anatomical Region Laterality Modality Abdomen N/A Ultrasound 01/25/2017 4:33 PM CDT Narrative 01/25/2017 4:33 PM CDT DATE OF EXAM: ??Jan 25 2017 11:33AM Acc#: ??[id number] ??EUS [id number] - US RUQ ?? DIAGNOSIS: ??RIGHT UPPER QUADRANT PAIN CLINICAL HISTORY: ?? RUQ PAIN RESULT: HISTORY: The patient 41-year-old female who presents with right upper quadrant pain. TECHNIQUE: Transverse and sagittal images were obtained along with color Doppler imaging. FINDINGS: The gallbladder is normal in appearance with no calculi within it. ??No gallbladder wall thickening seen nor was any pericholecystic fluid noted. ??Biliary tree not dilated with the common duct measuring 4 mm in diameter. The liver is normal in appearance with no focal liver lesion identified. ??Portal vein patent with normal hepatopedal flow within it. ??The liver measures 17.7 cm in sagittal length. The pancreas is normal in size and echotexture. ??The right kidney by 4.4 cm in size and has a normal sonographic appearance. ??The abdominal aorta and visualized portion of inferior vena cava are normal in appearance. IMPRESSION: Negative study. ?? Electronically signed by: Shreyas Barger M.D. ? ARBOREAL SCIENTIST: ??PSC TRANSCRIBE DATE/TIME: ??Jan 25 2017 ??2:18P RADIOLOGIST: ??SHREYAS BARGER M.D. ??READ ON: ??Jan 25 2017 ??2:22P ORDERING DR: BRITTANI AGOSTO M.D. ? THIS DOCUMENT HAS BEEN ELECTRONICALLY SIGNED BY: ??PARUL Perez, SHREYAS ??ON: ??Jan 25 2017 ??2:18P Attending: ??ROBB, ??BRITTANI Requesting: ??ROBB, ??BRITTANI Requesting Fax: ??[phone] Attending Fax: ??[phone] Attending ID: ??[id number] Requesting ID: ??[id number] Report To 1 ID: ?? Report To 1 Name: ??, ?? Report To 1 FAX: ??-- Report To 2 ID: ?? Report To 2 Name: ??, ?? Report To 2 FAX: ??-- NextGen Order #: ??[id number] Procedure Note Miscellaneous, Not In File / Provider, MD Anais - 01/25/2017 DATE OF EXAM: Jan 25 2017 11:33AM Acc#: [id number] EUS [id number] - US RUQ DIAGNOSIS: RIGHT UPPER QUADRANT PAIN CLINICAL HISTORY: RUQ PAIN RESULT: HISTORY: The patient 41-year-old female who presents with right upper quadrant pain. TECHNIQUE: Transverse and sagittal images were obtained along with color Doppler imaging. FINDINGS: The gallbladder is normal in appearance with no calculi within it. No gallbladder wall thickening seen nor was any pericholecystic fluid noted. Biliary tree not dilated with the common duct measuring 4 mm in diameter. The liver is normal in appearance with no focal liver lesion identified. Portal vein patent with normal hepatopedal flow within it. The liver measures 17.7 cm in sagittal length. The pancreas is normal in size and echotexture. The right kidney by 4.4 cm in size and has a normal sonographic appearance. The abdominal aorta and visualized portion of inferior vena cava are normal in appearance. IMPRESSION: Negative study. Electronically signed by: Shreyas Barger M.D. ARBOREAL SCIENTIST: KATARZYNA TRANSCRIBE DATE/TIME: Jan 25 2017 2:18P RADIOLOGIST: SHREYAS BARGER M.D. READ ON: Jan 25 2017 2:22P ORDERING DR: BRITTANI AGOSTO M.D. THIS DOCUMENT HAS BEEN ELECTRONICALLY SIGNED BY: SHREYAS BARGER M.D. ON: Jan 25 2017 2:18P Attending: BRITTANI AGOSTO Requesting: BRITTANI AGOSTO Requesting Attending Attending ID: [id number] Requesting ID: [id number] Report To 1 ID: Report To 1 Name: , Report To 1 FAX: -- Report To 2 ID: Report To 2 Name: , Report To 2 FAX: -- NextGen Order #: [id number] us Brittani Agosto MD IMG US PROCEDURES Final R esult documented in this encounter Visit Diagnoses Diagnosis Right upper quadrant pain Abdominal pain, right upper quadrant documented in this encounter Care Teams Asthma Educator Relationship Specialty Start [place] [address] [address] PCP - General 12/22/16 03/14/17 documented as of this encounter
--- OUTSIDE RECORDS SUMMARY | 2024-08-09 23:37 | XMS_ITS | Encounter Summary ---
Author Organization [facility] Address [address] [facility] [address] [place] [address] Care Team Providers Care Automotive Glass Installer Name Role Phone Brittani Agsoto MD Primary Care Provider [phone] Encounter Details Date Type Department Care Team (Late st Contact Info) Description 01/20/2017 Telephone Family Care at [facility] [address] [address] [place] [address] [facility] [address] [place] [address] Social History Tobacco Use Types Packs/Day Years Used Date Smoking Tobacco: Never Smokeless Tobacco: Never Alcohol Use Standard Drinks/Week Comments Yes 0 (1 standard drink = 0.6 oz pur e alcohol) Comments No Sex and Gender Information Value Date Recorded Sex Assigned at Not on file Legal Sex Female 1:09 AM 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 documented in this encounter Plan of Treatment Not on file documented as of this encounter Visit Diagnoses Not on filedocumented in this encounter Care Teams Automotive Glass Installer Relationship Specialty Start [place] [address] [address] PCP - General 12/22/16 03/14/17 documented as of this encounter
--- OUTSIDE RECORDS SUMMARY | 2024-08-09 23:37 | XMS_ITS | Encounter Summary ---
Author Organization [facility] Address [address] [facility] [address] [place] [address] Care Team Providers Care Ferry Captain Name Role Phone Brittani Agosto MD Primary Care Provider [phone] [phone] Reason for Visit * Reason Onset Date Comments Procedure 02/17/2017 Encounter Details Date Type Department Care Team (Late st Contact Info) Description 02/17/[address] 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 CONTROL TECH Gender Identity Not on file Sexual Orientation Not on file documented as of this encounter Miscellaneous Notes * Telephone Encounter - Rae Maher MA - 02/18/2017 6:49 AM CDT completed * Telephone Encounter - Paz Paul - 02/17/2017 4:12 PM CDT Patient is scheduled for colon//egd 02/25/17 @11:45am documented in this encounter Plan of Treatment Not on file documented as of this encounter Visit Diagnoses Not on filedocumented in this encounter Care Teams Ferry Captain Relationship Specialty Start [place] [address] [address] [place] [id number] PCP - General 12/22/16 03/14/17 documented as of this encounter
--- OUTSIDE RECORDS SUMMARY | 2024-08-09 23:37 | XMS_ITS | Encounter Summary ---
Author Organization [facility] Address [address] [facility] [address] [place] [address] Care Team Providers Care Parachute Inspector Name Role Phone Kelly Olson NP Primary Care Provider [phone] Brittani Agosto MD Primary Care Provider [phone] Cassius Ortega NP Primary Care Provider [phone] Encounter Details Date Type Department Care Team (Late st Contact Info) Description 04/07/2017 Telephone Family Care at [address] [address] Kelly Olson NP [address] [place] [address] Social History Tobacco Use Types Packs/Day Years Used Date Smoking Tobacco: Never Smokeless Tobacco: Never Alcohol Use Standard Drinks/Week Comments Yes 0 (1 standard drink = 0.6 oz pur e alcohol) PHQ-2 Answer Date Recorded PHQ-2 Score 2 05/15/2019 Comments No Sex and Gender Information Value Date Recorded Sex Assigned at Not on file Legal Sex Female 1:09 AM PONY ROUGHER Gender Identity Not on file Sexual Orientation Not on file COVID-19 Exposure Response Date [...] documented as of this encounter Care Teams Parachute Inspector Relationship Specialty [place] [address] [address] PCP - General 03/15/17 06/20/18 [place] [address] [address] [address] PCP - General Family Medicine 06/21/18 02/19/19 [place] [address] [address] [facility] [address] [address] PCP - General Family Medicine 02/21/19 documented as of this encounter
--- OUTSIDE RECORDS SUMMARY | 2024-08-09 23:37 | XMS_ITS | Encounter Summary ---
Author Organization [facility] Healthcare Address [address] [place] [address] Care Team Providers Care Composition Molder Name Role Phone Brittani Agosto MD Primary Care Provider [phone] Encounter Details Date Type Department Care Team (Late st Contact Info) Description 02/17/2017 2:29 PM CDT - 02/17/2017 11:59 PM CDT Hospital Encounter [place] [address] [address] Discharge Disposition: Discharge to home or self care Social History Tobacco Use Types Packs/Day Years Used Date Smoking Tobacco: Never Smokeless Tobacco: Never Alcohol Use Standard Drinks/Week Comments Yes 0 (1 standard drink = 0.6 oz pur e alcohol) Comments No Sex and Gender Information Value Date Recorded Sex Assigned at Not on file Legal Sex Female 1:09 AM 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 us Historical Provider LAB BLOOD ORDERABLES Tahira l Result documented in this encounter Visit Diagnoses Not on filedocumented in this encounter Care Teams Composition Molder Relationship Specialty Start [place] [address] [address] PCP - General 12/22/16 03/14/17 documented as of this encounter
--- OUTSIDE RECORDS SUMMARY | 2024-08-09 23:37 | XMS_ITS | Encounter Summary ---
Author Organization [facility] Address [address] [facility] [address] [place] [address] Care Team Providers Care Cable Installer Repairer Name Role Phone Brittani Agosto MD Primary Care Provider [phone] Reason for Visit * Reason Onset Date Comments Dr. Farah/Nishant Mera 01/22/2017 Encounter Details Date Type Department Care Team (Late st Contact Info) Description 01/22/2017 Telephone Family Care at [facility] [address] [address] [place] [address] [address] [address] 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 documented in this encounter Plan of Treatment Not on file documented as of this encounter Visit Diagnoses Not on filedocumented in this encounter Care Teams Cable Installer Repairer Relationship Specialty [place] [address] [address] PCP - General 12/22/16 03/14/17 documented as of this encounter
--- OUTSIDE RECORDS SUMMARY | 2024-08-09 23:38 | XMS_ITS | Encounter Summary ---
Author Organization [facility] Care Team Providers Care Sweet Goods Machine Operator Name Role Phone Kelly Olson NP Primary Care Provider [phone]- [phone] Encounter Details Date Type Department Care Team (Late st Contact Info) Description 05/09/2015 - 05/09/2015 11:59 PM CDT Hospital Encounter [facility] Chance MD [address] [facility] [place] [address] Social History Tobacco Use Types Packs/Day Years Used Date Smoking Tobacco: Never Alcohol Use Standard Drinks/Week Comments Yes 0 (1 standard drink = 0.6 oz pur e alcohol) Comments Unknown Sex and Gender Information Value Date Recorded Sex Assigned at Not on file Legal Sex Female 1:09 AM SAUTE CHEF Gender Identity Not on file Sexual Orientation Not on file documented as of this encounter Medications at Time of Discharge levothyroxine (SYNTHROID, LEVOTHROID) 150 mcg tablet TAKE 1 TABLET BY MOUTH EVERY DAY 90 2 04/28/2011 03/26/2017 documented as of this encounter Plan of Treatment Not on file documented as of this encounter Visit Diagnoses Not on filedocumented in this encounter Care Teams Sweet Goods Machine Operator Relationship Specialty [place] [address] [facility] [address] [place] [address] PCP - General 08/20/14 12/21/16 documented as of this encounter
--- OUTSIDE RECORDS SUMMARY | 2024-08-09 23:38 | XMS_ITS | Encounter Summary ---
Author Organization [facility] Facility Care Team Providers Care Fur Matcher Name Role Phone Kelly Olson NP Primary Care Provider +1- [phone] Encounter Details Date Type Department Care Team (Late st Contact Info) Description 04/29/2015 10:10 AM CDT - 04/29/2015 4:00 PM CDT Hospital Encounter [facility] CLINCONV Rob[place], Rd Kathleen MD [address] [facility] [place] [address] Carpal tunnel syndrome; Lesion of ulnar nerve Social History Tobacco Use Types Packs/Day Years Used Date Smoking Tobacco: Never Alcohol Use Standard Drinks/Week Comments Yes 0 (1 standard drink = 0.6 oz pur e alcohol) Comments Unknown Sex and Gender Information Value Date Recorded Sex Assigned at Not on file Legal Sex Female 1:09 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 Surgeon: Rd Chance M.D. Dictating: Rd Chance M.D. Service Dt: 04/29/2015 OPERATIVE REPORT FIRST COMMUNICATION PROFESSOR: Parviz Galvez MD ANESTHESIA: General. PREOPERATIVE DIAGNOSIS (ES): 1. Left carpal tunnel syndrome. 2. Left cubital tunnel syndrome. POSTOPERATIVE DIAGNOSIS (ES): 1. Left carpal tunnel syndrome. 2. Left cubital tunnel syndrome. NAME OF OPERATION: 1. Left carpal tunnel release. 2. Left ulnar nerve decompression at the elbow. INDICATIONS FOR PROCEDURE: This patient has had persistent symptoms left side and neurologic symptoms consistent with carpal and cubital tunnel syndrome. I offered her the above procedure at this time. I went over the risks and benefits of surgery with risks including but not limited to risk of anesthesia, bleeding, infection, nerve injury, tendon injury, possibility of persistent symptoms. She understood and wished to proceed. DESCRIPTION OF PROCEDURE: After consent was reviewed and the operative side was marked, the patient was brought to the operating room and kept supine on the operative stretcher. She underwent induction of general anesthesia. Preoperative antibiotics were given. The left arm was prepped and draped with chlorhexidine with a high-arm tourniquet. We had a verbal time out to verify the above information. We exsanguinated the limb and inflated the tourniquet. We started the case with a longitudinal incision in the palm just radial to the hook of the hamate. This was carried sharply through the skin, subcutaneous tissue, and palmar fascia. I visualized the transverse carpal ligament. There were no aberrant motor nerve branches seen. We incised the ligament under direct vision along its ulnar border into the fat pad of the palm distally and through the antebrachial fascia of the forearm proximally. The contents of the canal were normal. We irrigated the wound. We closed the skin with 4-0 nylon suture. We turned the attention to the left elbow. We made a short longitudinal incision over the ulnar nerve just distal to the medial epicondyle. This was carried sharply through the skin. We spread through subcutaneous tissue to preserve sensory nerve branches. We were able to visualize the fascia. We incised between the two heads of the FCU muscle. Bluntly going through the muscle, we were able to see the ulnar nerve. We incised the deep fascia heading distally about 6 cm distal to the medial epicondyle. We then turned and went back proximally going through the formal roof of the cubital tunnel and then releasing the fascia overlying the ulnar nerve between the medial head of the triceps and the medial intermuscular septum. The ulnar nerve was completely freed at this point. There was no surrounding fibrosis. We were able to flex and extend the elbow. No further constricting structures, and the ulnar nerve was stable. We irrigated the wound. We closed the skin with Vicryl suture and nylon suture. Marcaine 0.5% with no epinephrine was injected to both incision sites. A soft dressing was applied. The patient was awakened and taken to recovery in stable condition. SPECIMENS REMOVED: None. ESTIMATED BLOOD LOSS: Minimal. INTRAOPERATIVE FLUIDS: Per the anesthesia record. SPONGE/INSTRUMENT/NEEDLE COUNTS: Correct. CONDITION ON DISCHARGE FROM OPERATING ROOM: Stable to recovery. COMPLICATIONS: None. ATTESTATION STATEMENT: I was present for the entire case. Electronically Signed By Rd Chance M.D. 05/08/2015 07:[address] Chance M.D[address] [facility]/douglas #[id number] Editing MT: TD: 04/29/2015 13:28:00 cc: Orthopedic Billing Rd Chance M.D. documented in this encounter Plan of Treatment Not on file documented as of this encounter Visit Diagnoses Diagnosis Carpal tunnel syndrome Lesion of ulnar nerve documented in this encounter Care Teams Fur Matcher Relationship Specialty [place] [address] [place] [address] PCP - General 08/20/14 12/21/16 documented as of this encounter
--- OUTSIDE RECORDS SUMMARY | 2024-08-09 23:38 | XMS_ITS | Encounter Summary ---
Author Organization [facility] Healthcare Address [address] [place] [address] Care Team Providers Care Rouge Miller Name Role Phone Kelly Olson NP Primary Care Provider +1- [phone] Encounter Details Date Type Department Care Team (Late st Contact Info) Description 11/20/2015 10:39 AM CDT - 11/20/2015 11:59 PM T Hospital Encounter [facility] Kelly Wood MD [address] [facility] [id number] [place] [address] Encounter for screening mammogram for malignant neoplasm of breast; Other abnormal and inconclusive findings on diagnostic imaging of breast Social History Tobacco Use Types Packs/Day Years Used Date Smoking Tobacco: Never Alcohol Use Standard Drinks/Week Comments Yes 0 (1 standard drink = 0.6 oz pur e alcohol) Comments Unknown Sex and Gender Information Value Date Recorded Sex Assigned at Not on file 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 Gender Identity Not on file Sexual Orientation Not on file documented as of this encounter Medications at Time of Discharge ALPRAZolam (XANAX) 0.25 mg tablet take 1 tablet by ORAL route every day at bedtime 30 0 10/25/2015 09/09/2017 citalopram (CeleXA) 20 mg tablet TAKE 1 TABLET BY ORAL ROUTE EVERY DAY 30 5 10/25/2015 01/07/2017 levothyroxine (SYNTHROID, LEVOTHROID) 150 mcg tablet TAKE 1 TABLET BY MOUTH EVERY DAY 90 2 04/28/2011 03/26/2017 documented as of this encounter Plan of Treatment Not on file documented as of this encounter Procedures Procedure Name Priority Date/Time Associated Diagnosis Comments DIGITAL MAMMOGRAPHY Routine 11/20/2015 4 :10 PM CDT documented in this encounter Results * DIGITAL MAMMOGRAPHY (11/20/2015 4:10 PM CDT) Anatomical Region Laterality Modality Breast Mammography 11/20/2015 4:10 PM CDT Narrative 11/21/2015 8:42 AM CDT Acc#: ??[id number] JENNIFER [id number] - Screening Mamm BI DATE OF EXAM: ??Nov 20 2015 ??4:10PM DIAGNOSIS: ??ENCNTR SCREEN MAMMOGRAM FOR MALIGNANT NE CLINICAL HISTORY: ??SCREENING RESULT: ?\ EXAM: ??BILATERAL DIGITAL SCREENING MAMMOGRAM DATE: ??11/20/2015 CLINICAL HISTORY: ??Screening in an asymptomatic late childbearing patient with a history of negative left breast biopsy and no personal or family history of breast cancer ?? TECHNIQUE: ??Bilateral full field digital mammography was performed in the CC and MLO projections. ??Comparison was made to prior bilateral mammograms from February 16, 2014 and June 14, 2012 and a prior diagnostic left breast mammogram from March 28, 2014. ??CAD was utilized. FINDINGS: ??Scattered fibroglandular densities are again seen in both breasts. ??The irregular area of increased density in the deep upper outer left breast has increased in size and density since the 2013 exam. ??A biopsy clip is seen in this area. ??The parenchymal pattern of the right breast is unchanged. ??There are no suspicious microcalcifications. ? IMPRESSION: 1. BIRADS CATEGORY 0, INCOMPLETE: ??NEEDS ADDITIONAL IMAGING EVALUATION. ?? A DIAGNOSTIC LEFT BREAST MAMMOGRAM, INCLUDING AN ML VIEW AND SPOT COMPRESSION VIEWS, IS RECOMMENDED. ??AN ULTRASOUND WILL LIKELY BE NECESSARY. 2. ??RIGHT BREAST FINDINGS ARE BENIGN AND A REPEAT RIGHT BREAST MAMMOGRAM IS RECOMMENDED IN 12 MONTHS. IMPRESSION OF OVERALL ASSESSMENT CATEGORY 0 -- INCOMPLETE, NEEDS ADDITIONAL IMAGING EVALUATION. Dr. Sapp TECHNOLOGIST: ?? EDWARD BRADSHAWTECHNOLOGIST MEDICAL IMAGING PAINT SPRAYER SANDBLASTER: ??PW2 TRANSCRIBE DATE/TIME: ??Nov 20 2015 ??8:25P RADIOLOGIST: ??BILLIE SAPP M.D. ??READ ON: ??Nov 20 2015 ??4:33P ORDERING DR: KELLY PARSONS M.D. THIS DOCUMENT HAS BEEN ELECTRONICALLY SIGNED BY: ??BILLIE SAPP M.D. ??ON: ??Nov 21 2015 ??8:42A ? PAINT SPRAYER SANDBLASTER: ??PW2 TRANSCRIBE DATE/TIME: ??Nov 20 2015 ??8:25P RADIOLOGIST: ??BILLIE SAPP M.D. ??READ ON: ??Nov 20 2015 ??4:33P ORDERING DR: KELLY PARSONS M.D. THIS DOCUMENT HAS BEEN ELECTRONICALLY SIGNED BY: ??BILLIE SAPP M.D. ??ON: ??Nov 21 2015 ??8:42A Attending: ??ISSA, ??KELLY Requesting: ??ISSA, ??KELLY Requesting Fax: ??[phone] Attending Fax: ??[phone] Attending ID: ??[id number] Requesting ID: ??[id number] Report To 1 ID: ?? Report To 1 Name: ??, ?? Report To 1 FAX: ??-- Report To 2 ID: ?? Report To 2 Name: ??, ?? Report To 2 FAX: ??-- NextGen Order #: ?? Procedure Note Provider, MD Anais - 11/28/2016 Acc#: [id number] JENNIFER [id number] - Screening Mamm BI DATE OF EXAM: Nov 20 2015 4:10PM DIAGNOSIS: ENCNTR SCREEN MAMMOGRAM FOR MALIGNANT NE CLINICAL HISTORY: SCREENING RESULT: \ EXAM: BILATERAL DIGITAL SCREENING MAMMOGRAM DATE: 11/20/2015 CLINICAL HISTORY: Screening in an asymptomatic late childbearing patient with a history of negative left breast biopsy and no personal or family history of breast cancer TECHNIQUE: Bilateral full field digital mammography was performed in the CC and MLO projections. Comparison was made to prior bilateral mammograms from February 16, 2014 and June 14, 2012 and a prior diagnostic left breast mammogram from March 28, 2014. CAD wasutilized. FINDINGS: Scattered fibroglandular densities are again seen in both breasts. The irregular area of increased density in the deep upper outer left breast has increased in size and density since the 2014 exam. A biopsy clip is seen in this area. The parenchymal pattern of the right breast is unchanged. There are no suspicious microcalcifications. IMPRESSION: 1. BIRADS CATEGORY 0, INCOMPLETE: NEEDS ADDITIONAL IMAGING EVALUATION. A DIAGNOSTIC LEFT BREAST MAMMOGRAM, INCLUDING AN ML VIEW AND SPOT COMPRESSION VIEWS, IS RECOMMENDED. AN ULTRASOUND WILL LIKELY BE NECESSARY. 2. RIGHT BREAST FINDINGS ARE BENIGN AND A REPEAT RIGHT BREAST MAMMOGRAM IS RECOMMENDED IN 12 MONTHS. IMPRESSION OF OVERALL ASSESSMENT CATEGORY 0 -- INCOMPLETE, NEEDS ADDITIONAL IMAGING EVALUATION. Dr. Sapp TECHNOLOGIST: EDWARD BRADSHAWTECHNOLOGIST MEDICAL IMAGING PAINT SPRAYER SANDBLASTER: JAY JAY TRANSCRIBE DATE/TIME: Nov 20 2015 8:25P RADIOLOGIST: BILLIE SAPP M.D. READ ON: Nov 20 2015 4:33P ORDERING DR: KELLY PARSONS M.D. THIS DOCUMENT HAS BEEN ELECTRONICALLY SIGNED BY: BILLIE SAPP M.D. ON: Nov 21 2015 8:42A PAINT SPRAYER SANDBLASTER: JAY JAY TRANSCRIBE DATE/TIME: Nov 20 2015 8:25P RADIOLOGIST: BILLIE SAPP M.D. READ ON: Nov 20 2015 4:33P ORDERING DR: KELLY PARSONS M.D. THIS DOCUMENT HAS BEEN ELECTRONICALLY SIGNED BY: BILLIE SAPP M.D. ON: Nov 21 2015 8:42A Attending: KELLY PARSONS Requesting: KELLY PARSONS Requesting Attending Attending ID: [id number] Requesting ID: [id number] Report To 1 ID: Report To 1 Name: , Report To 1 FAX: -- Report To 2 ID: Report To 2 Name: , Report To 2 FAX: -- NextGen Order #: us Historical Provider MD MCMANUS MAMMO PROCEDURES Tahira l Result documented in this encounter Visit Diagnoses Diagnosis Encounter for screening mammogram for malignant neoplasm of breast Other abnormal and inconclusive findings on diagnostic imaging of breast documented in this encounter Care Teams Rouge Miller Relationship Specialty [place] [address] [place] [address] PCP - General 08/20/14 12/21/16 documented as of this encounter
--- OUTSIDE RECORDS SUMMARY | 2024-08-09 23:38 | XMS_ITS | Encounter Summary ---
Author Organization [facility] Healthcare Address [address] [place] [address] Care Team Providers Care Classroom Coordinator Name Role Phone Kelly Olson NP Primary Care Provider +1- [phone] Encounter Details Date Type Department Care Team (Latest Contact Info) Description 08/28/2014 3:39 PM COSTUMED CHARACTER ENTERTAINER - 08/28/2014 11:59 PM [facility] Hospital [place] [address] [phone] [place] [address] [id number] Disturbance of skin sensation; Other nonspecific abnormal findings on radiological and other examinations of body structure Social History Tobacco Use Types Packs/Day Years Used Date Smoking Tobacco: Never Alcohol Use Standard Drinks/Week Comments Yes 0 (1 standard drink = 0.6 oz pur e alcohol) Comments Unknown Sex and Gender Information Value Date Recorded Sex Assigned at Not on file Legal Sex Female 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 Gender Identity Not on file Sexual Orientation Not on file documented as of this encounter Medications at Time of Discharge levothyroxine (SYNTHROID, LEVOTHROID) 150 mcg tablet TAKE 1 TABLET BY MOUTH EVERY DAY 90 2 04/28/2011 03/26/2017 documented as of this encounter Plan of Treatment Not on file documented as of this encounter Visit Diagnoses Diagnosis Disturbance of skin sensation Other nonspecific abnormal findings on radiological and other examinations of body structure documented in this encounter Care Teams Classroom Coordinator Relationship Specialty [place] [address] [place] [address] PCP - General 08/20/14 12/21/16 documented as of this encounter
--- OUTSIDE RECORDS SUMMARY | 2024-08-09 23:38 | XMS_ITS | Encounter Summary ---
Author Organization [facility] Healthcare Address [address] [place] [address] Care Team Providers Care Wheel And Caster Repairer Name Role Phone Brittani Agosto MD Primary Care Provider +1 -[phone] Encounter Details Date Type Department Care Team (Latest Contact Info) Description 12/22/2016 8:17 AM CDT - 12/22/2016 11:59 PM CDT Hospital Encounter [place] [address] [address] [place] [address] [address] Discharge Disposition: Discharge to home or self care Social History Tobacco Use Types Packs/Day Years Used Date Smoking Tobacco: Never Alcohol Use Standard Drinks/Week Comments Yes 0 (1 standard drink = 0.6 oz pur e alcohol) Comments Unknown Sex and Gender Information Value Date Recorded Sex Assigned at Not on file Legal Sex Female 1:09 AM 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 TECHNOLOGIST MAMMOGRAM Gender Identity Not on file Sexual Orientation Not on file documented as of this encounter Medications at Time of Discharge ALPRAZolam (XANAX) 0.25 mg tablet take 1 tablet by ORAL route every day at bedtime 30 0 10/25/2015 09/09/2017 citalopram (CeleXA) 20 mg tablet TAKE 1 TABLET BY ORAL ROUTE EVERY DAY 30 5 10/25/2015 01/07/2017 clindamycin (CLEOCIN) 300 mg capsule take 1 capsule by oral route every 12 hours 20 0 08/28/2016 01/20/2017 levothyroxine (SYNTHROID, LEVOTHROID) 150 mcg tablet TAKE 1 TABLET BY MOUTH EVERY DAY 90 2 04/28/2011 03/26/2017 predniSONE (DELTASONE) 10 mg tablet take 1 tablet by oral route 2 times every day 10 0 08/28/2016 01/20/2017 documented as of this encounter Discharge Disposition Disposition Code Departure Means Destination Discharge to home or self care documented in this encounter Plan of Treatment Not on file documented as of this encounter Procedures Procedure Name Priority Date/Time Associated Diagnosis Comments DIAGNOSTIC MAMMOGRAM BILATERAL W CONNOR Routine 12/22/2016 1:46 PM CDT documented in this encounter Results * Diagnostic Mammogram Bilateral W Connor (12/22/2016 1:46 PM CDT) Anatomical Region Laterality Modality Breast Bilateral Mammography 12/22/2016 1:46 PM CDT Narrative 12/22/2016 1:46 PM CDT Acc#: ??[id number] JENNIFER [id number] - Screening Mamm W Connor Bi DATE OF EXAM: ??Dec 22 2016 ??8:46AM DIAGNOSIS: ??ENCOUNTER FOR OTH SCREENING FOR MALIGNAN CLINICAL HISTORY: ??SCREENING RESULT: Examination: Bilateral screening digital mammography with CAD and tomosynthesis History: Routine screening, benign stereotactic guided left breast biopsy in 2013 and excisional biopsy in 2016 which demonstrated fibrocystic change with apocrine metaplasia, columnar cell hyperplasia, pseudoangiomatous stromal hyperplasia, fibrosis and foreign body giant cell reaction. Comparison: 11/20/2015, 03/28/2014, 02/16/2014 and 06/14/2012. Findings: Craniocaudal and mediolateral oblique views of both breasts were obtained utilizing full field digital mammography. There are scattered fibroglandular densities. ??A mole marker has been placed on upper right breast. ??A scar marker has been placed on upper outer left breast. ??Since the prior examination, the biopsy marker clip in the area of focal asymmetry in upper outer left breast at posterior depth has been removed with interval decreased density of the focal asymmetry representing new postsurgical change. ??Scattered benign-appearing calcifications are seen in the left breast. ??There is no suspicious dominant mass, clustered microcalcification or new architectural distortion. This examination has been subjected to R2/CAD analysis. ? IMPRESSION: 1. ??BI-RADS Category 2, benign. 2. ??Annual screening mammography, monthly self breast examinations and yearly breast examination by a physician are recommended. Electronically signed by: Jessica Pena M.D. ? TECHNOLOGIST: ?? JAY RANDLE, TECHNOLOGIST MEDICAL IMAGING FORM TAMPER OPERATOR: ??[facility] TRANSCRIBE DATE/TIME: ??Dec 22 2016 10:01A RADIOLOGIST: ??JESSICA PENA M.D. ??READ ON: ??Dec 22 2016 10:05A ORDERING DR: KELLY MURPHY N.P. ? THIS DOCUMENT HAS BEEN ELECTRONICALLY SIGNED BY: ??BECKY Perez, JESSICA ??ON: ??Dec 22 2016 10:01A Attending: ??JEFFREY, ??KELLY Requesting: ??JEFFREY, ??KELLY Requesting Fax: ??[phone] Attending Fax: ??[phone] Attending ID: ??[id number] Requesting ID: ??[id number] Report To 1 ID: ?? Report To 1 Name: ??, ?? Report To 1 FAX: ??-- Report To 2 ID: ?? Report To 2 Name: ??, ?? Report To 2 FAX: ??-- NextGen Order #: ?? Procedure Note Miscellaneous, Not In File / Provider, MD Anais - 12/27/2016 Acc#: [id number] JENNIFER [id number] - Screening Mamm W Connor Bi DATE OF EXAM: Dec 22 2016 8:46AM DIAGNOSIS: ENCOUNTER FOR [facility] SCREENING FOR MALIGNAN CLINICAL HISTORY: SCREENING RESULT: Examination: Bilateral screening digital mammography with CAD and tomosynthesis History: Routine screening, benign stereotactic guided left breast biopsy in 2014 and excisional biopsy in 2016 which demonstrated fibrocystic change with apocrine metaplasia, columnar cell hyperplasia, pseudoangiomatous stromal hyperplasia, fibrosis and foreign body giant cell reaction. Comparison: 11/20/2015, 03/28/2014, 02/16/2014 and 06/14/2012. Findings: Craniocaudal and mediolateral oblique views of both breasts were obtained utilizing full field digital mammography. There are scattered fibroglandular densities. A mole marker has been placed on upper right breast. A scar marker has been placed on upper outer left breast. Since the prior examination, the biopsy marker clip in the area of focal asymmetry in upper outer left breast at posterior depth has been removed with interval decreased density of the focal asymmetry representing new postsurgical change. Scattered benign-appearing calcifications are seen in the left breast. There is no suspicious dominant mass, clustered microcalcification or new architectural distortion. This examination has been subjected to R2/CAD analysis. IMPRESSION: 1. BI-RADS Category 2, benign. 2. Annual screening mammography, monthly self breast examinations and yearly breast examination by a physician are recommended. Electronically signed by: Jessica Pena M.D. TECHNOLOGIST: JAY RANDLE TECHNOLOGIST MEDICAL IMAGING FORM TAMPER OPERATOR: [facility] TRANSCRIBE DATE/TIME: Dec 22 2016 10:01A RADIOLOGIST: JESSICA PENA M.D. READ ON: Dec 22 2016 10:05A ORDERING DR: KELLY MURPHY N.P. THIS DOCUMENT HAS BEEN ELECTRONICALLY SIGNED BY: JESSICA PENA M.D. ON: Dec 22 2016 10:01A Attending: KELLY MURPHY Requesting: KELLY MURPHY Requesting Attending Attending ID: [id number] Requesting ID: [id number] Report To 1 ID: Report To 1 Name: , Report To 1 FAX: -- Report To 2 ID: Report To 2 Name: , Report To 2 FAX: -- NextGen Order #: us Not In File Miscellaneous IMG MAMMO PROCEDURES F inal Result documented in this encounter Visit Diagnoses Not on filedocumented in this encounter Care Teams Wheel And Caster Repairer Relationship Specialty [place] [address] [place] [address] PCP - General 12/22/16 03/14/17 documented as of this encounter
--- OUTSIDE RECORDS SUMMARY | 2024-08-09 23:38 | XMS_ITS | Encounter Summary ---
Author Organization [facility] Healthcare Address [address] [place] [address] Care Team Providers Care Wax Coating Machine Tender Name Role Phone Kelly Olson NP Primary Care Provider +1- [phone] Encounter Details Date Type Department Care Team (Late st Contact Info) Description 10/25/2015 4:38 PM CDT - 10/25/2015 11:59 PM CDT Hospital Encounter [place] [address] [address] [place] [address] [address] Hypothyroidism Social History Tobacco Use Types Packs/Day Years Used Date Smoking Tobacco: Never Alcohol Use Standard Drinks/Week Comments Yes 0 (1 standard drink = 0.6 oz pur e alcohol) Comments Unknown Sex and Gender Information Value Date Recorded Sex Assigned at Not on file 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
--- OUTSIDE RECORDS SUMMARY | 2024-08-09 23:38 | XMS_ITS | Encounter Summary ---
Author Organization [facility] Facility Care Team Providers Care Director Of Revenue Cycle Management Name Role Phone Kelly Olson NP Primary Care Provider [phone]- [phone] Encounter Details Date Type Department Care Team (Late st Contact Info) Description 01/17/2016 7:27 AM CDT - 01/17/2016 3:50 PM CDT Hospital Encounter [facility] Brayton, Bethany Gardner MD [address] [facility] [address] [place] [address] Other specified disorders of breast; Benign neoplasm of peripheral nerves and autonomic nervous system, unspecified; Hypertrophy of breast; Other group home (current) drug therapy Social History Tobacco Use Types Packs/Day Years Used Date Smoking Tobacco: Never Alcohol Use Standard Drinks/Week Comments Yes 0 (1 standard drink = 0.6 oz pur e alcohol) Comments Unknown Sex and Gender Information Value Date Recorded Sex Assigned at Not on file Legal Sex Female 1:09 AM [employer] Gender Identity Not on file Sexual Orientation Not on file documented as of this encounter Last Filed Vital Signs Vital Sign Reading Time Taken Comments Blood Pressure - - Pulse - - Temperature - - Respiratory Rate - - Oxygen Saturation - - Inhaled Oxygen Concentration - - Weight - - Height 165.1 cm (5' 5 ) 05/31/2013 9:37 AM CDT Body Mass Index - - documented in this encounter Medications at Time [...] encounter Miscellaneous Notes * Op Note - Provider, MD Anais - 01/17/2016 12:00 AM CDT Patient: JAZ ALFORD Reg No: [id number] U H #: [id number] Admit Dt.: 01/17/2016 : 1975 Pt Type: [facility] Room No: Attending: Bethany Corcoran M.D. Surgeon: Bethany Corcoran M.D. Dictating: Bethany Corcoran M.D. Service Dt: 01/17/2016 OPERATIVE REPORT Facility: [facility] FIRST PHYSICIAN ANESTHESIOLOGIST: Dr. Dottie Huerta SECOND/THIRD PHYSICIAN ANESTHESIOLOGIST: ANESTHESIA: Monitored anesthesia care and local. PREOPERATIVE DIAGNOSIS (ES): Left breast asymmetry. POSTOPERATIVE DIAGNOSIS (ES): Left breast asymmetry. NAME OF OPERATION: Left breast excisional biopsy with needle localization. INDICATIONS FOR PROCEDURE: This is an otherwise healthy woman who is now status post two biopsies of an asymmetry in the left breast. The one two years ago revealed benign findings and most recently revealed only benign breast tissue, which was discordant. She is here today for surgical excision with needle localization. Preoperatively, she and I discussed surgery, its expected postoperative course, and risks including bleeding and infection. OPERATIVE FINDINGS: DESCRIPTION OF PROCEDURE: Jaz went [facility] for needle localization and the operative site was correctly identified. No specific deep venous thrombosis prophylaxis was required as this was not a general anesthetic. IV antibiotics were given for antibiotic prophylaxis. Left breast was prepped and draped. Local anesthetic was infiltrated in the far lateral breast in the 3 o'clock radian and a small incision was made. Electrocautery was used to create flaps and to dissect out a piece of tissue over on the needle localizing wire. This tissue was soft and rubbery and clinically consistent with PASH. This tissue was dissected free and marked with a short stitch superior and a long stitch lateral. Specimen radiography confirmed the presence of the asymmetry within the tissue. Hemostasis was obtained throughout using electrocautery. The cavity was copiously irrigated and local anesthetic was used throughout the case as needed. Ultimately, skin was closed with 3-0 Vicryl and a 4-0 Monocryl subcuticular suture. At the conclusion of the case, the wound was dressed with Dermabond. She was awakened and taken to PACU in stable condition. SPECIMENS REMOVED: Left breast excisional biopsy, short stitch superior, long stitch lateral. ESTIMATED BLOOD LOSS: Minimal. INTRAOPERATIVE FLUIDS: SPONGE/INSTRUMENT/NEEDLE COUNTS: CONDITION ON DISCHARGE FROM OPERATING ROOM: Stable. COMPLICATIONS: None. ATTESTATION OF PRESENCE: I was present in the operating room from anesthetic induction until skin closure, for which I was readily available. Electronically Authenticated by: Bethany Corcoran MD On 01/24/2016 01:15 PM CDT Bethany Corcoran M.D. AEC:sp #[id number] Editing MT: TD: 01/19/2016 02:58 PM documented in this encounter Plan of Treatment Not on file documented as of this encounter Procedures Procedure Name Priority Date/Time Associated Diagnosis Comments RADIOLOGIC EXAMINATION OF SURGICAL SPECIMEN Routine 01/17/2016 11:35 AM CDT MAMMO GUIDED LOCALIZATION BREAST Routine 01/17/2016 8:51 AM CDT SURGICAL PATHOLOGY 01/17/2016 documented in this encounter Results * SURGICAL SPECIMEN (01/17/2016 11:35 AM CDT) Anatomical Region Laterality Modality Breast N/A Mammography 01/17/2016 11:3 5 AM CDT Narrative 01/17/2016 4:17 PM CDT ARLEY MORA M.D. TERESA ENGLE M.D. FINAL REPORT The radiology attending physician has personally reviewed this study, and has reviewed and/or edited this written report and agrees with it. ACC# ??Date Time ??Exam [id number] Jan 17, 2016 08:51:00 [facility] [id number] Breast Localz Mamm Gd L [id number] Jan 17, 2016 11:35:00 [facility] 60740 Rad Exam Surgical Specimen L EXAMINATION: ?? LEFT BREAST WIRE LOCALIZATION UTILIZING DIGITAL MAMMOGRAPHIC GUIDANCE AND SURGICAL SPECIMEN RADIOGRAPH. HISTORY: 40-year-old woman with an asymmetry in the upper outer left breast. Prior stereotactic guided core biopsy in 2013 showed stromal fibrosis and columnar cell hyperplasia. Subsequent ultrasound guided core biopsy in December 2015 demonstrated benign fibroadipose tissue. This was considered a discordant finding hence surgical excision was recommended. Wire needle localization of this asymmetry is requested prior to surgical excision PROCEDURE AND FINDINGS: The procedure was discussed with the patient and informed consent was obtained. The breast was placed in a compression grid, and the area of interest was localized with digital mammography. ?? After sterile preparation of the skin, 1% lidocaine was utilized for local anesthesia. A hook-wire system was advanced into the area of interest in the breast from a lateral approach utilizing digital mammographic guidance. Orthogonal views were obtained to confirm appropriate needle/wire position. The patient tolerated the procedure well and there was no evidence of immediate complication. The images were marked for the surgeon, and the patient was transferred to the operating suite for surgical excision. A surgical specimen was subsequently received from the operating room and digital radiography was performed. The lesion of interest is included within the surgical specimen. These findings were communicated to the surgeon. The attending radiologist, Dr. Mora, was present throughout the entire procedure. Dr. Engle (diagnostic president [employer]) also participated in this examination. IMPRESSION: ?? Successful wire localization of the area of interest within the LEFT breast utilizing digital mammographic guidance. Requested By: Dictated By: ?? TERESA ENGLE M.D. ??on Jan 17 2016 11:58A This document has been electronically signed by: ARLEY MORA M.D. on Jan 17 2016 ??4:17P [id number] Procedure Note Provider, MD Anais - 11/28/2016 ARLEY MORA M.D. TERESA ENGLE M.D. FINAL REPORT The radiology attending physician has personally reviewed this study, and has reviewed and/or edited this written report and agrees with it. ACC# Date Time Exam [id number] Jan 17, 2016 08:51:00 [facility] 82342 Breast Localz Mamm Gd L [id number] Jan 17, 2016 11:35:00 [facility] 32074 Rad Exam Surgical Specimen L EXAMINATION: LEFT BREAST WIRE LOCALIZATION UTILIZING DIGITAL MAMMOGRAPHIC GUIDANCE AND SURGICAL SPECIMEN RADIOGRAPH. HISTORY: 40-year-old woman with an asymmetry in the upper outer left breast. Prior stereotactic guided core biopsy in 2013 showed stromal fibrosis and columnar cell hyperplasia. Subsequent ultrasound guided core biopsy in December 2015 demonstrated benign fibroadipose tissue. This was considered a discordant finding hence surgical excision was recommended. Wire needle localization of this asymmetry is requested prior to surgical excision PROCEDURE AND FINDINGS: The procedure was discussed with the patient and informed consent was obtained. The breast was placed in a compression grid, and the area of interest was localized with digital mammography. After sterile preparation of the skin, 1% lidocaine was utilized for local anesthesia. A hook-wire system was advanced into the area of interest in the breast from a lateral approach utilizing digital mammographic guidance. Orthogonal views were obtained to confirm appropriate needle/wire position. The patient tolerated the procedure well and there was no evidence of immediate complication. The images were marked for the surgeon, and the patient was transferred to the operating suite for surgical excision. A surgical specimen was subsequently received from the operating room and digital radiography was performed. The lesion of interest is included within the surgical specimen. These findings were communicated to the surgeon. The attending radiologist, Dr. Mora, was present throughout the entire procedure. Dr. Engle (diagnostic president [employer]) also participated in this examination. IMPRESSION: Successful wire localization of the area of interest within the LEFT breast utilizing digital mammographic guidance. Requested By: Dictated By: TERESA ENGLE M.D. on Jan 17 2016 11:58A This document has been electronically signed by: ARLEY MORA M.D. on Jan 17 2016 4:17P [id number] us Historical Provider MD [facility] MAMMO PROCEDURES Tahira l Result * Mammo Guided Localization Breast (01/17/2016 8:51 AM CDT) Anatomical Region Laterality Modality Breast Mammography 01/17/2016 8:51 AM CDT Narrative 01/17/2016 4:17 PM CDT ARLEY MORA M.D. TERESA ENGLE M.D. FINAL REPORT The radiology attending physician has personally reviewed this study, and has reviewed and/or edited this written report and agrees with it. ACC# ??Date Time ??Exam [id number] Jan 17, 2016 08:51:00 [facility] 39301 Breast Localz Mamm Gd L [id number] Jan 17, 2016 11:35:00 [facility] 43275 Rad Exam Surgical Specimen L EXAMINATION: ?? LEFT BREAST WIRE LOCALIZATION UTILIZING DIGITAL MAMMOGRAPHIC GUIDANCE AND SURGICAL SPECIMEN RADIOGRAPH. HISTORY: 40-year-old woman with an asymmetry in the upper outer left breast. Prior stereotactic guided core biopsy in 2013 showed stromal fibrosis and columnar cell hyperplasia. Subsequent ultrasound guided core biopsy in December 2015 demonstrated benign fibroadipose tissue. This was considered a discordant finding hence surgical excision was recommended. Wire needle localization of this asymmetry is requested prior to surgical excision PROCEDURE AND FINDINGS: The procedure was discussed with the patient and informed consent was obtained. The breast was placed in a compression grid, and the area of interest was localized with digital mammography. ?? After sterile preparation of the skin, 1% lidocaine was utilized for local anesthesia. A hook-wire system was advanced into the area of interest in the breast from a lateral approach utilizing digital mammographic guidance. Orthogonal views were obtained to confirm appropriate needle/wire position. The patient tolerated the procedure well and there was no evidence of immediate complication. The images were marked for the surgeon, and the patient was transferred to the operating suite for surgical excision. A surgical specimen was subsequently received from the operating room and digital radiography was performed. The lesion of interest is included within the surgical specimen. These findings were communicated to the surgeon. The attending radiologist, Dr. Mora, was present throughout the entire procedure. Dr. Engle (diagnostic president [employer]) also participated in this examination. IMPRESSION: ?? Successful wire localization of the area of interest within the LEFT breast utilizing digital mammographic guidance. Requested By: Dictated By: ?? TERESA ENGLE M.D. ??on Jan 17 2016 11:58A This document has been electronically signed by: ARLEY MORA M.D. on Jan 17 2016 ??4:17P [id number] Procedure Note Provider, MD Anais - 11/28/2016 ARLEY MORA M.D. TERESA ENGLE M.D. FINAL REPORT The radiology attending physician has personally reviewed this study, and has reviewed and/or edited this written report and agrees with it. ACC# Date Time Exam [id number] Jan 17, 2016 08:51:00 [facility] 06336 Breast Localz Mamm Gd L [id number] Jan 17, 2016 11:35:00 [facility] 19058 Rad Exam Surgical Specimen L EXAMINATION: LEFT BREAST WIRE LOCALIZATION UTILIZING DIGITAL MAMMOGRAPHIC GUIDANCE AND SURGICAL SPECIMEN RADIOGRAPH. HISTORY: 40-year-old woman with an asymmetry in the upper outer left breast. Prior stereotactic guided core biopsy in 2013 showed stromal fibrosis and columnar cell hyperplasia. Subsequent ultrasound guided core biopsy in December 2015 demonstrated benign fibroadipose tissue. This was considered a discordant finding hence surgical excision was recommended. Wire needle localization of this asymmetry is requested prior to surgical excision PROCEDURE AND FINDINGS: The procedure was discussed with the patient and informed consent was obtained. The breast was placed in a compression grid, and the area of interest was localized with digital mammography. After sterile preparation of the skin, 1% lidocaine was utilized for local anesthesia. A hook-wire system was advanced into the area of interest in the breast from a lateral approach utilizing digital mammographic guidance. Orthogonal views were obtained to confirm appropriate needle/wire position. The patient tolerated the procedure well and there was no evidence of immediate complication. The images were marked for the surgeon, and the patient was transferred to the operating suite for surgical excision. A surgical specimen was subsequently received from the operating room and digital radiography was performed. The lesion of interest is included within the surgical specimen. These findings were communicated to the surgeon. The attending radiologist, Dr. Mora, was present throughout the entire procedure. Dr. Engle (diagnostic president [employer]) also participated in this examination. IMPRESSION: Successful wire localization of the area of interest within the LEFT breast utilizing digital mammographic guidance. Requested By: Dictated By: TERESA ENGLE M.D. on Jan 17 2016 11:58A This document has been electronically signed by: ARLEY MORA M.D. on Jan 17 2016 4:17P [id number] us Historical Provider [facility] MAMMO PROCEDURES Tahira l Result * Surgical pathology (01/17/2016) Narrative 01/17/2016 Ordered by an unspecified provider. 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
--- OUTSIDE RECORDS SUMMARY | 2024-08-09 23:38 | XMS_ITS | Encounter Summary ---
Author Organization [facility] Facility Care Team Providers Care Electric Solderer Name Role Phone Kelly Olson NP Primary Care Provider [phone]- [phone] Encounter Details Date Type Department Care Team (Late st Contact Info) Description 12/03/2015 - 12/03/2015 11:59 PM CDT Hospital Encounter [facility] Kelly Irizarry MD [address] [facility] [phone] [place], [place] [id number] Other specified disorders of breast Social History Tobacco Use Types Packs/Day Years Used Date Smoking Tobacco: Never Alcohol Use Standard Drinks/Week Comments Yes 0 (1 standard drink = 0.6 oz pur e alcohol) Comments Unknown Sex and Gender Information Value Date Recorded Sex Assigned at Not on file Legal Sex Female 1:09 AM [employer] Gender Identity Not on file Sexual [...] Name Priority Date/Time Associated Diagnosis Comments US BREAST LIMITED Routine 12/03/2015 4:1 6 PM CDT DIGITAL MAMMOGRAPHY, UNILATERAL Routine 12/03/2015 4:06 PM CDT DIAGNOSTIC MAMMOGRAM LEFT W CONNOR Routine 12/03/2015 4:06 PM CDT documented in this encounter Results * US Breast Limited (12/03/2015 4:16 PM CDT) Anatomical Region Laterality Modality Breast N/A Ultrasound 12/03/2015 4:16 PM CDT Narrative 12/05/2015 9:52 AM CDT MELODIE FERNANDEZ M.D. GALEN CAMP, FINAL REPORT The radiology attending physician has personally reviewed this study, and has reviewed and/or edited this written report and agrees with it. ACC# ??Date Time ??Exam [id number] December 03, 2015 16:06:00 C 67388 Diag Mammogram Unilateral L ?? Technologist(s): Yoanna Chanel; ; [id number] December 03, 2015 16:16:00 C 25384 Breast US unilateral, ltd L [id number] December 03, 2015 16:06:00 [facility] 94784 DigBreast Connor uni L ?? Technologist(s): Yoanna Chanel; ; ACC# ??Date Time ??Exam [id number] December 03, 2015 16:06:00 C 92200 Diag Mammogram Unilateral L ?? Technologist(s): Yoanna Chanel; ; [id number] December 03, 2015 16:16:00 C 87684 Breast US unilateral, ltd L [id number] December 03, 2015 16:06:00 C 31247 DigBreast Connor uni L ?? Technologist(s): Yoanna Chanel; ; EXAMINATION: ?? LEFT ??FULL FIELD DIGITAL DIAGNOSTIC MAMMOGRAM, DIGITAL LEFT BREAST TOMOSYNTHESIS, AND LEFT BREAST SONOGRAM HISTORY: Abnormal outside mammogram from [facility] for asymmetry in the upper outer quadrant of the left breast. Patient has had a previous stereotactic biopsy in the same area back in April 2014. 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 MAMMOGRAM TECHNIQUE: Additional views of LEFT were obtained utilizing full field digital mammography. Digital breast tomosynthesis was performed and reviewed as a part of this examination. COMPARISON: [id number], 06/14/2012, 11/20/2015 BREAST PARENCHYMAL COMPOSITION: There are scattered areas of fibroglandular density. MAMMOGRAM FINDINGS: There is increasing density identified within the upper outer quadrant of the left breast, posterior depth when compared to multiple prior mammograms. Biopsy clip from the 2014 biopsy is identified within the same area of focal asymmetry. SONOGRAM FINDINGS: Directed sonogram of the upper outer quadrant, 2:00 left breast about 12 cm from the nipple was performed. There is a hypoechoic asymmetry measuring 7 x 9 millimeters with very Obl acoustic shadowing. A precise measurement of this area is difficult due to the irregular shape of the finding. The biopsy clip is identified adjacent to this area. Directed physical examination of the area of concern demonstrates no definite suspicious palpable abnormality at this time. ?? IMPRESSION: 1) Suspicious developing asymmetry in the upper outer quadrant of the left breast, posterior depth in an area of prior benign biopsy in 2013. Directed sonogram in the 2:00 left breast demonstrates an associated hypoechoic asymmetry. Given that the benign biopsy diagnosis did not reveal proliferative changes repeat biopsy of this area to include the hypoechoic asymmetry using ultrasound guidance is recommended. The above findings and recommendations were discussed with the patient at the conclusion of the examination and were subsequently telephoned to [place] at the office of the referring physician, Dr. Kelly Irizarry, by Dr. Camp on 12/04/2015 at 8:56 a.m. The patient has been scheduled to return to [facility] for an ultrasound-guided core needle biopsy of the LEFT breast on 12/10/2015 at 12:15 p.m.. OVERALL FINAL ASSESSMENT: BI-RADS Category 4A: Suspicious abnormality. ?? Low suspicion for malignancy. ?? Requested By: Dictated By: ?? GALEN ACMP, ?? on November ??2015 ??8:57A This document has been electronically signed by: MELODIE FERNANDEZ M.D. on November ??5 2015 ??9:52A [id number] Procedure Note Provider, MD Anais - 11/28/2016 MELODIE FERNANDEZ M.D. GALEN CAMP, FINAL REPORT The radiology attending physician has personally reviewed this study, and has reviewed and/or edited this written report and agrees with it. ACC# Date Time Exam [id number] December 03, 2015 16:06:00 [facility] 49130 Diag Mammogram Unilateral L Technologist(s): Yoanna Chanel; ; [id number] December 03, 2015 16:16:00 [facility] 85913 Breast US unilateral, ltd L [id number] December 03, 2015 16:06:00 C 15436 DigBreast Connor uni L Technologist(s): Yoanna Chanel; ; ACC# Date Time Exam [id number] December 03, 2015 16:06:00 C 99984 Diag Mammogram Unilateral L Technologist(s): Yoanna Chanel; ; [id number] December 03, 2015 16:16:00 C 42033 Breast US unilateral, ltd L [id number] December 03, 2015 16:06:00 C 38077 DigBreast Connor uni L Technologist(s): Yoanna Chanel; ; EXAMINATION: LEFT FULL FIELD DIGITAL DIAGNOSTIC MAMMOGRAM, DIGITAL LEFT BREAST TOMOSYNTHESIS, AND LEFT BREAST SONOGRAM HISTORY: Abnormal outside mammogram from [facility] for asymmetry in the upper outer quadrant of the left breast. Patient has had a previous stereotactic biopsy in the same area back in April 2014. 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 MAMMOGRAM TECHNIQUE: Additional views of LEFT were obtained utilizing full field digital mammography. Digital breast tomosynthesis was performed and reviewed as a part of this examination. COMPARISON: [id number], 06/14/2012, 11/20/2015 BREAST PARENCHYMAL COMPOSITION: There are scattered areas of fibroglandular density. MAMMOGRAM FINDINGS: There is increasing density identified within the upper outer quadrant of the left breast, posterior depth when compared to multiple prior mammograms. Biopsy clip from the 2014 biopsy is identified within the same area of focal asymmetry. SONOGRAM FINDINGS: Directed sonogram of the upper outer quadrant, 2:00 left breast about 12 cm from the nipple was performed. There is a hypoechoic asymmetry measuring 7 x 9 millimeters with very Obl acoustic shadowing. A precise measurement of this area is difficult due to the irregular shape of the finding. The biopsy clip is identified adjacent to this area. Directed physical examination of the area of concern demonstrates no definite suspicious palpable abnormality at this time. IMPRESSION: 1) Suspicious developing asymmetry in the upper outer quadrant of the left breast, posterior depth in an area of prior benign biopsy in 2013. Directed sonogram in the 2:00 left breast demonstrates an associated hypoechoic asymmetry. Given that the benign biopsy diagnosis did not reveal proliferative changes repeat biopsy of this area to include the hypoechoic asymmetry using ultrasound guidance is recommended. The above findings and recommendations were discussed with the patient at the conclusion of the examination and were subsequently telephoned to Alana at the office of the referring physician, Dr. Kelly Irizarry, by Dr. Camp on 12/04/2015 at 8:56 a.m. The patient has been scheduled to return to the [facility] for an ultrasound-guided core needle biopsy of the LEFT breast on 12/10/2015 at 12:15 p.m.. OVERALL FINAL ASSESSMENT: BI-RADS Category 4A: Suspicious abnormality. Low suspicion for malignancy. Requested By: Dictated By: GALEN CAMP, on Dec 04 2015 8:57A This document has been electronically signed by: MELODIE FERNANDEZ M.D. on Dec 05 2015 9:52A [id number] us Historical Provider MD [facility] US PROCEDURES Final R esult * Diagnostic Mammogram Left W Connor (12/03/2015 4:06 PM CDT) Anatomical Region Laterality Modality Breast Left Mammography 12/03/2015 4:06 PM CDT Narrative 12/05/2015 9:52 AM CDT MELODIE FERNANDEZ M.D. GALEN CAMP, FINAL REPORT The radiology attending physician has personally reviewed this study, and has reviewed and/or edited this written report and agrees with it. ACC# ??Date Time ??Exam [id number] December 03, 2015 16:06:00 [facility] 44160 Diag Mammogram Unilateral L ?? Technologist(s): Yoanna Chanel; ; [id number] December 03, 2015 16:16:00 [facility] 80762 Breast US unilateral, ltd L [id number] December 03, 2015 16:06:00 [facility] 35984 DigBreast Connor uni L ?? Technologist(s): Yoanna Chanel; ; ACC# ??Date Time ??Exam [id number] December 03, 2015 16:06:00 [facility] 42319 Diag Mammogram Unilateral L ?? Technologist(s): Yoanna Chanel; ; [id number] December 03, 2015 16:16:00 [facility] 29408 Breast US unilateral, ltd L [id number] December 03, 2015 16:06:00 [facility] 06175 DigBreast Connor uni L ?? Technologist(s): Yoanna Chanel; ; EXAMINATION: ?? LEFT ??FULL FIELD DIGITAL DIAGNOSTIC MAMMOGRAM, DIGITAL LEFT BREAST TOMOSYNTHESIS, AND LEFT BREAST SONOGRAM HISTORY: Abnormal outside mammogram from [facility] for asymmetry in the upper outer quadrant of the left breast. Patient has had a previous stereotactic biopsy in the same area back in April 2014. 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 MAMMOGRAM TECHNIQUE: Additional views of LEFT were obtained utilizing full field digital mammography. Digital breast tomosynthesis was performed and reviewed as a part of this examination. COMPARISON: [id number], 06/14/2012, 11/20/2015 BREAST PARENCHYMAL COMPOSITION: There are scattered areas of fibroglandular density. MAMMOGRAM FINDINGS: There is increasing density identified within the upper outer quadrant of the left breast, posterior depth when compared to multiple prior mammograms. Biopsy clip from the 2014 biopsy is identified within the same area of focal asymmetry. SONOGRAM FINDINGS: Directed sonogram of the upper outer quadrant, 2:00 left breast about 12 cm from the nipple was performed. There is a hypoechoic asymmetry measuring 7 x 9 millimeters with very Obl acoustic shadowing. A precise measurement of this area is difficult due to the irregular shape of the finding. The biopsy clip is identified adjacent to this area. Directed physical examination of the area of concern demonstrates no definite suspicious palpable abnormality at this time. ?? IMPRESSION: 1) Suspicious developing asymmetry in the upper outer quadrant of the left breast, posterior depth in an area of prior benign biopsy in 2013. Directed sonogram in the 2:00 left breast demonstrates an associated hypoechoic asymmetry. Given that the benign biopsy diagnosis did not reveal proliferative changes repeat biopsy of this area to include the hypoechoic asymmetry using ultrasound guidance is recommended. The above findings and recommendations were discussed with the patient at the conclusion of the examination and were subsequently telephoned to Alana at the office of the referring physician, Dr. Kelly Irizarry, by Dr. Camp on 12/04/2015 at 8:56 a.m. The patient has been scheduled to return to [facility] for an ultrasound-guided core needle biopsy of the LEFT breast on 12/10/2015 at 12:15 p.m.. OVERALL FINAL ASSESSMENT: BI-RADS Category 4A: Suspicious abnormality. ?? Low suspicion for malignancy. ?? Requested By: Dictated By: ?? GALEN CAMP, ?? on November ??2015 ??8:57A This document has been electronically signed by: MELODIE FERNANDEZ M.D. on November ??2015 ??9:52A [id number] Procedure Note Provider, MD Anais - 11/28/2016 MELODIE FERNANDEZ M.D. GALEN CAMP, FINAL REPORT The radiology attending physician has personally reviewed this study, and has reviewed and/or edited this written report and agrees with it. ACC# Date Time Exam [id number] December 03, 2015 16:06:00 [facility] 87653 Diag Mammogram Unilateral L Technologist(s): Yoanna Chanel; ; [id number] December 03, 2015 16:16:00 [facility] 41659 Breast US unilateral, ltd L [id number] December 03, 2015 16:06:00 [facility] 44243 DigBreast Connor uni L Technologist(s): Yoanna Chanel; ; ACC# Date Time Exam [id number] December 03, 2015 16:06:00 [facility] 17154 Diag Mammogram Unilateral L Technologist(s): Yoanna Chanel; ; [id number] December 03, 2015 16:16:00 [facility] 63559 Breast US unilateral, ltd L [id number] December 03, 2015 16:06:00 [facility] 00232 DigBreast Connor uni L Technologist(s): Yoanna Chanel; ; EXAMINATION: LEFT FULL FIELD DIGITAL DIAGNOSTIC MAMMOGRAM, DIGITAL LEFT BREAST TOMOSYNTHESIS, AND LEFT BREAST SONOGRAM HISTORY: Abnormal outside mammogram from [facility] for asymmetry in the upper outer quadrant of the left breast. Patient has had a previous stereotactic biopsy in the same area back in April 2014. 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 MAMMOGRAM TECHNIQUE: Additional views of LEFT were obtained utilizing full field digital mammography. Digital breast tomosynthesis was performed and reviewed as a part of this examination. COMPARISON: [id number], 06/14/2012, 11/20/2015 BREAST PARENCHYMAL COMPOSITION: There are scattered areas of fibroglandular density. MAMMOGRAM FINDINGS: There is increasing density identified within the upper outer quadrant of the left breast, posterior depth when compared to multiple prior mammograms. Biopsy clip from the 2014 biopsy is identified within the same area of focal asymmetry. SONOGRAM FINDINGS: Directed sonogram of the upper outer quadrant, 2:00 left breast about 12 cm from the nipple was performed. There is a hypoechoic asymmetry measuring 7 x 9 millimeters with very Obl acoustic shadowing. A precise measurement of this area is difficult due to the irregular shape of the finding. The biopsy clip is identified adjacent to this area. Directed physical examination of the area of concern demonstrates no definite suspicious palpable abnormality at this time. IMPRESSION: 1) Suspicious developing asymmetry in the upper outer quadrant of the left breast, posterior depth in an area of prior benign biopsy in 2013. Directed sonogram in the 2:00 left breast demonstrates an associated hypoechoic asymmetry. Given that the benign biopsy diagnosis did not reveal proliferative changes repeat biopsy of this area to include the hypoechoic asymmetry using ultrasound guidance is recommended. The above findings and recommendations were discussed with the patient at the conclusion of the examination and were subsequently telephoned to Alana at the office of the referring physician, Dr. Kelly Irizarry, by Dr. Camp on 12/04/2015 at 8:56 a.m. The patient has been scheduled to return to the [facility] for an ultrasound-guided core needle biopsy of the LEFT breast on 12/10/2015 at 12:15 p.m.. OVERALL FINAL ASSESSMENT: BI-RADS Category 4A: Suspicious abnormality. Low suspicion for malignancy. Requested By: Dictated By: GALEN CAMP, on Dec 04 2015 8:57A This document has been electronically signed by: MELODIE FERNANDEZ M.D. on Dec 05 2015 9:52A [id number] us Historical Provider MD [facility] MAMMO PROCEDURES Tahira l Result * DIGITAL MAMMOGRAPHY, UNILATERAL (12/03/2015 4:06 PM CDT) Anatomical Region Laterality Modality Breast Mammography 12/03/2015 4:06 PM CDT Narrative 12/05/2015 9:52 AM CDT MELODIE FERNANDEZ M.D. GALEN TOLEDOYara, FINAL REPORT The radiology attending physician has personally reviewed this study, and has reviewed and/or edited this written report and agrees with it. ACC# ??Date Time ??Exam [id number] December 03, 2015 16:06:00 [facility] 51754 Diag Mammogram Unilateral L ?? Technologist(s): Yoanna Chanel; ; [id number] December 03, 2015 16:16:00 [facility] 07457 Breast US unilateral, ltd L [id number] December 03, 2015 16:06:00 [facility] 72140 DigBreast Connor uni L ?? Technologist(s): Yoanna Chanel; ; ACC# ??Date Time ??Exam [id number] December 03, 2015 16:06:00 C 38345 Diag Mammogram Unilateral L ?? Technologist(s): Yoanna Chanel; ; [id number] December 03, 2015 16:16:00 [facility] 47251 Breast US unilateral, ltd L [id number] December 03, 2015 16:06:00 [facility] 35835 DigBreast Connor uni L ?? Technologist(s): Yoanna Chanel; ; EXAMINATION: ?? LEFT ??FULL FIELD DIGITAL DIAGNOSTIC MAMMOGRAM, DIGITAL LEFT BREAST TOMOSYNTHESIS, AND LEFT BREAST SONOGRAM HISTORY: Abnormal outside mammogram from [facility] for asymmetry in the upper outer quadrant of the left breast. Patient has had a previous stereotactic biopsy in the same area back in April 2014. 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 MAMMOGRAM TECHNIQUE: Additional views of LEFT were obtained utilizing full field digital mammography. Digital breast tomosynthesis was performed and reviewed as a part of this examination. COMPARISON: [id number], 06/14/2012, 11/20/2015 BREAST PARENCHYMAL COMPOSITION: There are scattered areas of fibroglandular density. MAMMOGRAM FINDINGS: There is increasing density identified within the upper outer quadrant of the left breast, posterior depth when compared to multiple prior mammograms. Biopsy clip from the 2014 biopsy is identified within the same area of focal asymmetry. SONOGRAM FINDINGS: Directed sonogram of the upper outer quadrant, 2:00 left breast about 12 cm from the nipple was performed. There is a hypoechoic asymmetry measuring 7 x 9 millimeters with very Obl acoustic shadowing. A precise measurement of this area is difficult due to the irregular shape of the finding. The biopsy clip is identified adjacent to this area. Directed physical examination of the area of concern demonstrates no definite suspicious palpable abnormality at this time. ?? IMPRESSION: 1) Suspicious developing asymmetry in the upper outer quadrant of the left breast, posterior depth in an area of prior benign biopsy in 2014. Directed sonogram in the 2:00 left breast demonstrates an associated hypoechoic asymmetry. Given that the benign biopsy diagnosis did not reveal proliferative changes repeat biopsy of this area to include the hypoechoic asymmetry using ultrasound guidance is recommended. The above findings and recommendations were discussed with the patient at the conclusion of the examination and were subsequently telephoned to Alana at the office of the referring physician, Dr. Kelly Irizarry, by Dr. Camp on 12/04/2015 at 8:56 a.m. The patient has been scheduled to return to the [facility] for an ultrasound-guided core needle biopsy of the LEFT breast on 12/10/2015 at 12:15 p.m.. OVERALL FINAL ASSESSMENT: BI-RADS Category 4A: Suspicious abnormality. ?? Low suspicion for malignancy. ?? Requested By: Dictated By: ?? GALEN CAMP, ?? on November ??2015 ??8:57A This document has been electronically signed by: MELODIE FERNANDEZ M.D. on November ??2015 ??9:52A Procedure Note Provider, MD Anais - 11/28/2016 MELODIE FERNANDEZ M.D. GALEN CAMP, FINAL REPORT The radiology attending physician has personally reviewed this study, and has reviewed and/or edited this written report and agrees with it. ACC# Date Time Exam [id number] December 03, 2015 16:06:00 [facility] 78629 Diag Mammogram Unilateral L Technologist(s): Yoanna Chanel; ; [id number] December 03, 2015 16:16:00 [facility] 13849 Breast US unilateral, ltd L [id number] December 03, 2015 16:06:00 [facility] 58435 DigBreast Connor uni L Technologist(s): Yoanna Chanel; ; ACC# Date Time Exam [id number] December 03, 2015 16:06:00 [facility] 61194 Diag Mammogram Unilateral L Technologist(s): Yoanna Chanel; ; [id number] December 03, 2015 16:16:00 [facility] 27372 Breast US unilateral, ltd L [id number] December 03, 2015 16:06:00 [facility] 60383 DigBreast Connor uni L Technologist(s): Yoanna Chanel; ; EXAMINATION: LEFT FULL FIELD DIGITAL DIAGNOSTIC MAMMOGRAM, DIGITAL LEFT BREAST TOMOSYNTHESIS, AND LEFT BREAST SONOGRAM HISTORY: Abnormal outside mammogram from [facility] for asymmetry in the upper outer quadrant of the left breast. Patient has had a previous stereotactic biopsy in the same area back in April 2014. 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 MAMMOGRAM TECHNIQUE: Additional views of LEFT were obtained utilizing full field digital mammography. Digital breast tomosynthesis was performed and reviewed as a part of this examination. COMPARISON: [id number], 06/14/2012, 11/20/2015 BREAST PARENCHYMAL COMPOSITION: There are scattered areas of fibroglandular density. MAMMOGRAM FINDINGS: There is increasing density identified within the upper outer quadrant of the left breast, posterior depth when compared to multiple prior mammograms. Biopsy clip from the 2014 biopsy is identified within the same area of focal asymmetry. SONOGRAM FINDINGS: Directed sonogram of the upper outer quadrant, 2:00 left breast about 12 cm from the nipple was performed. There is a hypoechoic asymmetry measuring 7 x 9 millimeters with very Obl acoustic shadowing. A precise measurement of this area is difficult due to the irregular shape of the finding. The biopsy clip is identified adjacent to this area. Directed physical examination of the area of concern demonstrates no definite suspicious palpable abnormality at this time. IMPRESSION: 1) Suspicious developing asymmetry in the upper outer quadrant of the left breast, posterior depth in an area of prior benign biopsy in 2013. Directed sonogram in the 2:00 left breast demonstrates an associated hypoechoic asymmetry. Given that the benign biopsy diagnosis did not reveal proliferative changes repeat biopsy of this area to include the hypoechoic asymmetry using ultrasound guidance is recommended. The above findings and recommendations were discussed with the patient at the conclusion of the examination and were subsequently telephoned to [place] at the office of the referring physician, Dr. eKlly Irizarry, by Dr. Camp on 12/04/2015 at 8:56 a.m. The patient has been scheduled to return to [facility] for an ultrasound-guided core needle biopsy of the LEFT breast on 12/10/2015 at 12:15 p.m.. OVERALL FINAL ASSESSMENT: BI-RADS Category 4A: Suspicious abnormality. Low suspicion for malignancy. Requested By: Dictated By: GALEN CAMP on Dec 04 2015 8:57A This document has been electronically signed by: MELODIE FERNANDEZ M.D. on Dec 05 2015 9:52A us Historical Provider MD [facility] MAMMO PROCEDURES Tahira l Result documented in this encounter Visit Diagnoses Diagnosis Other specified disorders of breast documented in this encounter Care Teams Electric Solderer Relationship Specialty [place] [id number] [address] PCP - General 08/20/14 12/21/16 documented as of this encounter
--- OUTSIDE RECORDS SUMMARY | 2024-08-09 23:38 | XMS_ITS | Encounter Summary ---
Author Organization [facility] Facility Care Team Providers Care [employer] Name Role Phone Kelly Olson NP Primary Care Provider +- [phone] Encounter Details Date Type Department Care Team (Latest Contact Info) Description 12/10/2015 - 12/10/2015 11:59 PM T Hospital Encounter [facility] Kelly Olson [address] [address] [place] [address] Fibroadenosis of left breast Social History Tobacco Use Types Packs/Day Years Used Date Smoking Tobacco: Never Alcohol Use Standard Drinks/Week Comments Yes 0 (1 standard drink = 0.6 oz pur e alcohol) Comments Unknown Sex and Gender Information Value Date Recorded Sex Assigned at Not on file Legal Sex Female 1:09 AM [employer] Gender Identity Not on file Sexual [...] Priority Date/Time Associated Diagnosis Comments DIAGNOSTIC MAMMOGRAM 2D LEFT Routine 12/10/2015 2:17 PM CDT US GUIDED LOCALIZATION BREAST Routine 12/10/2015 2:03 PM CDT SURGICAL PATHOLOGY 12/10/2015 documented in this encounter Results * DIAGNOSTIC MAMMOGRAM 2D LEFT (12/10/2015 2:17 PM CDT) Anatomical Region Laterality Modality Breast Left Mammography 12/10/2015 2:17 PM CDT Narrative 12/23/2015 10:38 AM CDT MARIA ZAMORA M.D. FINAL REPORT The radiology attending physician has personally reviewed this study, and has reviewed and/or edited this written report and agrees with it. ACC# ??Date Time ??Exam [id number] December 10, 2015 14:03:00 [facility] 50644 Breast Bx Incl Loc Sono L [id number] December 10, 2015 14:17:00 [facility] [id number] Mamm Unilat Post Bx Films L ?? Technologist(s): Brenda Mabry; ; ACC# ??Date Time ??Exam [id number] December 10, 2015 14:03:00 [facility] 38879 Breast Bx Incl Loc Sono L [id number] December 10, 2015 14:17:00 [facility] [id number] Mamm Unilat Post Bx Films L ?? Technologist(s): Brenda Mabry; ; EXAMINATION: ?? ULTRASOUND-GUIDED CORE BIOPSY LEFT BREAST, TISSUE MARKER CLIP PLACEMENT, AND LEFT UNILATERAL DIGITAL MAMMOGRAM HISTORY: 40-year-old woman with a screen-detected developing asymmetry in the upper-outer left breast. Ultrasound showed an ill-defined hypoechoic asymmetry at this location. Prior biopsy of this area in 2013 showed stromal fibrosis and columnar cell hyperplasia. Ultrasound-guided core needle biopsy is requested to evaluate for malignancy. PROCEDURE AND FINDINGS: The risks and potential benefits of the procedure were discussed with the patient and written informed consent was obtained. After sterile preparation of the skin, 1% lidocaine was utilized for local anesthesia. ??A small skin incision was made with a #11 scalpel blade. ??A 14-gauge spring-loaded biopsy device needle was then advanced through the skin incision to the edge of the lesion of interest from a lateral approach utilizing sonographic guidance. A total of 4 tissue cores were obtained through the lesion. An UltraClip ribbon-shaped tissue marker clip was then placed at the biopsy site. Hemostasis was achieved. A sterile bandage and an ice pack were applied. The patient tolerated the procedure well and there was no evidence of immediate complication. The patient was given verbal as well as written post-procedural instructions prior to release from the department. ??The tissue cores were submitted to surgical pathology in formalin for histologic analysis. A two view left unilateral digital mammogram was obtained post-procedure and this demonstrates that the tissue marker clip is 1.5 cm lateral to the expected position, however, biopsy site changes with in the lesion of interest are noted. The attending radiologist, Dr. Zamora, was present throughout the entire procedure. Dr. Rodriguez and Dr. Kingston (diagnostic radiology residents) also participated in this examination. ?? IMPRESSION: ?Successful ultrasound-guided core needle biopsy of the area of interest in the left breast. ??Pathology pending. ?? ADDENDUM #1 by Roya Willis, [facility] ACNS- for Dr. Maria Zamora on 12/19/15 at 12:40pm: Histopathology from the core needle biopsy of the area of interest in the LEFT breast demonstrated benign fibroadipose tissue. There was no evidence of malignancy. While these findings are benign, they are considered DISCORDANT with the imaging findings. Surgical excision is recommended. The patient was notified of the biopsy results and recommendations by Roya Willis, MSN ACNS-BC of the Breast [facility] [[email or web address] on 12/17/15, and is scheduled to see Dr. Bethany Corcoran for surgical consultation on 12/19/15. Requested By: Dictated By: ?? TARYN RODRIGUEZ M.D. ??on Dec 10 2015 ??2:19P This document has been electronically signed by: MARIA ZAMORA M.D. on Dec 10 2015 ??4:27P Addendum Dictated by: JOY ZAFAR on Dec 19 2015 12:45P This Addendum has been electronically signed by: MARIA ZAMORA M.D. on Dec 23 2015 10:38A [id number] Procedure Note Provider, MD Anais - 11/28/2016 MARIA ZAMORA M.D. FINAL REPORT The radiology attending physician has personally reviewed this study, and has reviewed and/or edited this written report and agrees with it. ACC# Date Time Exam [id number] December 10, 2015 14:03:00 [facility] 15381 Breast Bx Incl Loc Sono L [id number] December 10, 2015 14:17:00 [facility] [id number] Mamm Unilat Post Bx Films L Technologist(s): Brenda Mabry; ; ACC# Date Time Exam [id number] December 10, 2015 14:03:00 C 18040 Breast Bx Incl Loc Sono L [id number] December 10, 2015 14:17:00 [facility] 15631M Mamm Unilat Post Bx Films L Technologist(s): Brenda Mabry; ; EXAMINATION: ULTRASOUND-GUIDED CORE BIOPSY LEFT BREAST, TISSUE MARKER CLIP PLACEMENT, AND LEFT UNILATERAL DIGITAL MAMMOGRAM HISTORY: 40-year-old woman with a screen-detected developing asymmetry in the upper-outer left breast. Ultrasound showed an ill-defined hypoechoic asymmetry at this location. Prior biopsy of this area in 2013 showed stromal fibrosis and columnar cell hyperplasia. Ultrasound-guided core needle biopsy is requested to evaluate for malignancy. PROCEDURE AND FINDINGS: The risks and potential benefits of the procedure were discussed with the patient and written informed consent was obtained. After sterile preparation of the skin, 1% lidocaine was utilized for local anesthesia. A small skin incision was made with a #11 scalpel blade. A 14-gauge spring-loaded biopsy device needle was then advanced through the skin incision to the edge of the lesion of interest from a lateral approach utilizing sonographic guidance. A total of 4 tissue cores were obtained through the lesion. An UltraClip ribbon-shaped tissue marker clip was then placed at the biopsy site. Hemostasis was achieved. A sterile bandage and an ice pack were applied. The patient tolerated the procedure well and there was no evidence of immediate complication. The patient was given verbal as well as written post-procedural instructions prior to release from the department. The tissue cores were submitted to surgical pathology in formalin for histologic analysis. A two view left unilateral digital mammogram was obtained post-procedure and this demonstrates that the tissue marker clip is 1.5 cm lateral to the expected position, however, biopsy site changes with in the lesion of interest are noted. The attending radiologist, Dr. Zamora, was present throughout the entire procedure. Dr. Rodriguez and Dr. Kingston (diagnostic radiology residents) also participated in this examination. IMPRESSION: Successful ultrasound-guided core needle biopsy of the area of interest in the left breast. Pathology pending. ADDENDUM #1 by Roya Willis, [facility] ACNS-BC for Dr. Maria Zamora on 12/19/15 at 12:40pm: Histopathology from the core needle biopsy of the area of interest in the LEFT breast demonstrated benign fibroadipose tissue. There was no evidence of malignancy. While these findings are benign, they are considered DISCORDANT with the imaging findings. Surgical excision is recommended. The patient was notified of the biopsy results and recommendations by STEVEN Zafar ACNS-BC of the [facility] on 12/17/15, and is scheduled to see Dr. Bethany Corcoran for surgical consultation on 12/19/15. Requested By: Dictated By: TARYN RODRIGUEZ M.D. on Dec 10 2015 2:19P This document has been electronically signed by: MARIA ZAMORA M.D. on Dec 10 2015 4:27P Addendum Dictated by: ROYA WILLIS [facility] on Dec 19 2015 12:45P This Addendum has been electronically signed by: MARIA ZAMORA M.D. on Dec 23 2015 10:38A [id number] us Historical Provider MD [facility] MAMMO PROCEDURES Tahira l Result * US Guided Localization Breast (12/10/2015 2:03 PM CDT) Anatomical Region Laterality Modality Breast N/A Ultrasound 12/10/2015 2:03 PM CDT Narrative 12/23/2015 10:38 AM CDT MARIA ZAMORA M.D. FINAL REPORT The radiology attending physician has personally reviewed this study, and has reviewed and/or edited this written report and agrees with it. ACC# ??Date Time ??Exam [id number] December 10, 2015 14:03:00 [facility] 40465 Breast Bx Incl Loc Sono L [id number] December 10, 2015 14:17:00 [facility] [id number] Mamm Unilat Post Bx Films L ?? Technologist(s): Brenda Mabry; ; ACC# ??Date Time ??Exam [id number] December 10, 2015 14:03:00 [facility] 12123 Breast Bx Incl Loc Sono L [id number] December 10, 2015 14:17:00 [facility] 37976M Mamm Unilat Post Bx Films L ?? Technologist(s): Brenda Mabry; ; EXAMINATION: ?? ULTRASOUND-GUIDED CORE BIOPSY LEFT BREAST, TISSUE MARKER CLIP PLACEMENT, AND LEFT UNILATERAL DIGITAL MAMMOGRAM HISTORY: 40-year-old woman with a screen-detected developing asymmetry in the upper-outer left breast. Ultrasound showed an ill-defined hypoechoic asymmetry at this location. Prior biopsy of this area in 2013 showed stromal fibrosis and columnar cell hyperplasia. Ultrasound-guided core needle biopsy is requested to evaluate for malignancy. PROCEDURE AND FINDINGS: The risks and potential benefits of the procedure were discussed with the patient and written informed consent was obtained. After sterile preparation of the skin, 1% lidocaine was utilized for local anesthesia. ??A small skin incision was made with a #11 scalpel blade. ??A 14-gauge spring-loaded biopsy device needle was then advanced through the skin incision to the edge of the lesion of interest from a lateral approach utilizing sonographic guidance. A total of 4 tissue cores were obtained through the lesion. An UltraClip ribbon-shaped tissue marker clip was then placed at the biopsy site. Hemostasis was achieved. A sterile bandage and an ice pack were applied. The patient tolerated the procedure well and there was no evidence of immediate complication. The patient was given verbal as well as written post-procedural instructions prior to release from the department. ??The tissue cores were submitted to surgical pathology in formalin for histologic analysis. A two view left unilateral digital mammogram was obtained post-procedure and this demonstrates that the tissue marker clip is 1.5 cm lateral to the expected position, however, biopsy site changes with in the lesion of interest are noted. The attending radiologist, Dr. Zamora, was present throughout the entire procedure. Dr. Rodriguez and Dr. Kingston (diagnostic radiology residents) also participated in this examination. ?? IMPRESSION: ?Successful ultrasound-guided core needle biopsy of the area of interest in the left breast. ??Pathology pending. ?? ADDENDUM #1 by STEVEN Zafar ACNS-BC for Dr. Maria Zamora on 12/19/15 at 12:40pm: Histopathology from the core needle biopsy of the area of interest in the LEFT breast demonstrated benign fibroadipose tissue. There was no evidence of malignancy. While these findings are benign, they are considered DISCORDANT with the imaging findings. Surgical excision is recommended. The patient was notified of the biopsy results and recommendations by STEVEN Zafar ACNS-BC of the [facility] on 12/17/15, and is scheduled to see Dr. Bethany Corcoran for surgical consultation on 12/19/15. Requested By: Dictated By: ?? TARYN RODRIGUEZ M.D. ??on Dec 10 2015 ??2:19P This document has been electronically signed by: MARIA ZAMORA M.D. on Dec 10 2015 ??4:27P Addendum Dictated by: JOY ZAFAR on Dec 19 2015 12:45P This Addendum has been electronically signed by: MARIA ZAMORA M.D. on Dec 23 2015 10:38A [id number] Procedure Note Provider, MD Anais - 11/28/2016 MARIA ZAMORA M.D. FINAL REPORT The radiology attending physician has personally reviewed this study, and has reviewed and/or edited this written report and agrees with it. ACC# Date Time Exam [id number] December 10, 2015 14:03:00 [facility] 82763 Breast Bx Incl Loc Sono L [id number] December 10, 2015 14:17:00 [facility] [id number] Mamm Unilat Post Bx Films L Technologist(s): Brenda Mabry; ; ACC# Date Time Exam [id number] December 10, 2015 14:03:00 [facility] 79428 Breast Bx Incl Loc Sono L [id number] December 10, 2015 14:17:00 [facility] 10382E Mamm Unilat Post Bx Films L Technologist(s): Brenda Mabry; ; EXAMINATION: ULTRASOUND-GUIDED CORE BIOPSY LEFT BREAST, TISSUE MARKER CLIP PLACEMENT, AND LEFT UNILATERAL DIGITAL MAMMOGRAM HISTORY: 40-year-old woman with a screen-detected developing asymmetry in the upper-outer left breast. Ultrasound showed an ill-defined hypoechoic asymmetry at this location. Prior biopsy of this area in 2013 showed stromal fibrosis and columnar cell hyperplasia. Ultrasound-guided core needle biopsy is requested to evaluate for malignancy. PROCEDURE AND FINDINGS: The risks and potential benefits of the procedure were discussed with the patient and written informed consent was obtained. After sterile preparation of the skin, 1% lidocaine was utilized for local anesthesia. A small skin incision was made with a #11 scalpel blade. A 14-gauge spring-loaded biopsy device needle was then advanced through the skin incision to the edge of the lesion of interest from a lateral approach utilizing sonographic guidance. A total of 4 tissue cores were obtained through the lesion. An UltraClip ribbon-shaped tissue marker clip was then placed at the biopsy site. Hemostasis was achieved. A sterile bandage and an ice pack were applied. The patient tolerated the procedure well and there was no evidence of immediate complication. The patient was given verbal as well as written post-procedural instructions prior to release from the department. The tissue cores were submitted to surgical pathology in formalin for histologic analysis. A two view left unilateral digital mammogram was obtained post-procedure and this demonstrates that the tissue marker clip is 1.5 cm lateral to the expected position, however, biopsy site changes with in the lesion of interest are noted. The attending radiologist, Dr. Zamora, was present throughout the entire procedure. Dr. Rodriguez and Dr. Kingston (diagnostic radiology residents) also participated in this examination. IMPRESSION: Successful ultrasound-guided core needle biopsy of the area of interest in the left breast. Pathology pending. ADDENDUM #1 by STEVEN Zafar [facility]- for Dr. Maria Zamora on 12/19/15 at 12:40pm: Histopathology from the core needle biopsy of the area of interest in the LEFT breast demonstrated benign fibroadipose tissue. There was no evidence of malignancy. While these findings are benign, they are considered DISCORDANT with the imaging findings. Surgical excision is recommended. The patient was notified of the biopsy results and recommendations by STEVEN Zafar ACNS-BC of the [facility] [[email or web address] on 12/17/15, and is scheduled to see Dr. Bethany Corcoran for surgical consultation on 12/19/15. Requested By: Dictated By: TARYN RODRIGUEZ M.D. on Dec 10 2015 2:19P This document has been electronically signed by: MARIA ZAMORA M.D. on Dec 10 2015 4:27P Addendum Dictated by: JOY ZAFAR on Dec 19 2015 12:45P This Addendum has been electronically signed by: MARIA ZAMORA M.D. on Dec 23 2015 10:38A [id number] us Historical Provider IMG US PROCEDURES Final R esult * Surgical pathology (12/10/2015) Narrative 12/10/2015 Ordered by an unspecified provider. Historical Provider LAB PATHOLOGY ORDERABLES Final Result documented in this encounter Visit Diagnoses Diagnosis Fibroadenosis of left breast documented in this encounter Care Teams [employer] Relationship Specialty [place] [id number] [place] [id number] PCP - General 08/20/14 12/21/16 documented as of this encounter
--- OUTSIDE RECORDS SUMMARY | 2024-08-09 23:38 | XMS_ITS | Encounter Summary ---
Author Organization [facility] Medical [facility] Address [address] [facility] [address] [place] [address] Care Team Providers Care Analyst Programmer Name Role Phone Marco A Agosto MD Primary Care Provider [phone] [phone] Reason for Referral * Diagnostic Imaging (Routine) - Closed Specialty Diagnoses / Procedures Referred By Contac t Referred To Contact Diagnoses Right upper quadrant pain Procedures US Abdomen Limited Marco A Agosto MD Phone: tel: fax: Referral ID Status Reason Start Date Expiration Date Visits Re quested Visits Authorized [id number] Closed 01/20/2017 07/19/2017 1 1 Reason for Visit * Reason Comments Abdominal Pain c/o cramping, bloati ng, x 3 weeks Encounter Details Date Type Department Care Team (Late st Contact Info) Description 01/20/2017 2:15 PM CDT Office Visit [facility] at [facility] [address] [facility] [address] [place] [phone] Marco A Agosto MD [address] [place] [address] [address] [place] [address] Right upper quadrant pain (Primary Dx); Severe obesity (BMI 35.0-39.9) with comorbidity (CMS/HCC); BMI 35.0-35.9,adult Social History Tobacco Use Types Packs/Day Years Used Date Smoking Tobacco: Never Smokeless Tobacco: Never Alcohol Use Standard Drinks/Week Comments Yes 0 (1 standard drink = 0.6 oz pur e alcohol) Comments No Sex and Gender Information Value Date Recorded Sex Assigned at Not on file Legal Sex Female 1:09 AM 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 MACHINE TENDER Gender Identity Not on file Sexual Orientation Not on file documented as of this encounter Last Filed Vital Signs Vital Sign Reading Time Taken Comments Blood Pressure 126/80 01/20/2017 2:38 PM CDT Pulse 64 01/20/2017 2:38 PM CDT Temperature 36.8 ??C (98.2 ??F) 01/20/2017 2:38 PM CD T Respiratory Rate 12 01/20/2017 2:38 PM CDT Oxygen Saturation - - Inhaled Oxygen Concentration - - Weight 98 kg (216 lb) 01/20/2017 2:38 PM CDT Height 165.1 cm (5' 5 ) 01/20/2017 2:38 PM CDT Body Mass Index 35.94 01/20/2017 2:38 PM CDT documented in this encounter Progress Notes * Marco A Agosto MD - 01/20/2017 2:15 PM CDT [address] [place] [id number] Dept: [phone] Subjective/Objective Patient ID: Олег Paz is a 41 y.o. female. Chief Complaint Abdominal Pain (c/o cramping, bloating, x 3 weeks) Here today for an acute visit for abdominal pain and bloating. Patient of my partner, Kelly Lindo. Has tried prevacid, and it didn't help No history of similar Cramping type pain. Still has appendix, gallbladder, uterus, and ovaries No change in abdominal discomfort with Bms. No change in abdominal discvofort with urination. No new OTC meds Ibuprofen 600 mg ~ 5 times a month at the most. Abdominal Pain This is a new problem. The current episode started 1 to 4 weeks ago. The onset quality is gradual. The problem occurs intermittently. The most recent episode lasted 4 hours. The problem has been waxing and waning. The pain is located in the epigastric region. The quality of the pain is cramping. The abdominal pain does not radiate. Associated symptoms include nausea. Pertinent negatives include no constipation, diarrhea, dysuria, fever or vomiting. Exacerbated by: eating makes it a bit worse, but can happen when she doesn't eat. The pain is relieved by nothing. She has tried proton pump inhibitors for the symptoms. The treatment provided no relief. Past Medical History: Diagnosis Date ??? HX OTHER MEDICAL 2003 +PPD ??? HX OTHER MEDICAL herniated disc l4-5 ??? HX OTHER MEDICAL 2006 Caesarean section; Comments: [facility] 04/06/2014 - ??? HX OTHER MEDICAL 2008 C section; Comments: [facility] 04/06/2014 - ??? HX OTHER MEDICAL 05/2013 l4/l5 dissection; Comments: [facility] 04/06/2014 - ??? HX OTHER MEDICAL 2008 Tubaligation; Comments: [facility] 04/06/2014 - ??? HX OTHER MEDICAL postpardum [...] ??? TUBAL LIGATION 2009 Bilateral tubal ligation Patient Active Problem List Diagnosis Date Noted ??? Right upper quadrant pain 01/20/2017 ??? Adiposity 12/16/2013 Class: Chronic Obesity ??? depression 12/16/2013 Class: Chronic Depression ??? Vitamin D deficiency 12/16/2013 Class: Chronic Vitamin D deficiency ??? Impaired fasting glucose 12/16/2013 Class: Chronic Impaired fasting glucose ??? Hyperlipidemia 12/16/2013 Class: Chronic Hyperlipidemia ??? Hypothyroidism 12/16/2013 Class: Chronic Hypothyroidism HOME MEDICATIONS : ALPRAZolam (XANAX) 0.25 mg tablet citalopram (CeleXA) 20 mg tablet levothyroxine (SYNTHROID, LEVOTHROID) 150 mcg tablet clindamycin (CLEOCIN) 300 mg capsule predniSONE (DELTASONE) 10 mg tablet Allergies Allergen Reactions ??? Bacitracin ??? Cefazolin Redness and Blisters Reaction: redness, blister, ??? Lidocaine ??? Neomycin ??? Polymyxin B ??? Pramoxine ??? Sertraline Other (See comments) Reaction: muscle cramps, Family History Problem Relation Age of Onset [...] Skin cancer Sister Cancer, skin; Social History Substance Use Topics ??? Smoking status: Never Smoker ??? Smokeless tobacco: Never Used ??? Alcohol use Yes Review of Systems Constitutional: Negative for fever. Gastrointestinal: Positive for abdominal pain and nausea. Negative for blood in stool, constipation, diarrhea and vomiting. Genitourinary: Negative for dysuria and vaginal discharge. Vitals: 01/20/17 1438 BP: 126/80 BP Location: Right arm Patient Position: Sitting Pulse: 64 Resp: 12 Temp: 36.8 ??C (98.2 ??F) TempSrc: Oral Weight: 98 kg (216 lb) Height: 165.1 cm (5' 5 ) Physical Exam Constitutional: She is oriented to person, place, and time. obese Cardiovascular: Normal rate, regular rhythm, normal heart sounds and intact distal pulses. Exam reveals no gallop and no friction rub. No murmur heard. Pulmonary/Chest: Effort normal and breath sounds normal. No respiratory distress. She has no wheezes. She has no rales. She exhibits no tenderness. Abdominal: Soft. Bowel sounds are normal. She exhibits no distension and no mass. There is no hepatosplenomegaly. There is tenderness in the right upper quadrant. There is positive Dinero's sign. There is no rebound and no guarding. No hernia. Neurological: She is alert and oriented to person, place, and time. Psychiatric: She has a normal mood and affect. Her behavior is normal. Thought content normal. Assessment/Plan Diagnoses and all orders for this visit: 1. Right upper quadrant pain (Primary) Assessment & Plan: New onset last 3 weeks. No improvement with PPI. Assoc with foods. RUQ pain on exam. Suspect GB pathology. ER precautions for worsening symptoms. Labs and GB US Orders: - Comprehensive metabolic panel; Future - CBC with auto differential; Future - US Abdomen Limited; Future 2. Severe obesity (BMI 35.0-39.9) with comorbidity (CMS/HCC) Comments: encouraged healthy diet, exercise, and adequate sleep 3. BMI 35.0-35.9,adult Marco A Agosto MD documented in this encounter Miscellaneous Notes * Assessment & Plan Note - Marco A Agosto MD - 01/20/2017 3:05 PM CDTAssociated Problem(s): Right upper quadrant abdominal pain New onset last 3 weeks. No improvement with PPI. Assoc with foods. RUQ pain on exam. Suspect GB pathology. ER precautions for worsening symptoms. Labs and GB US documented in this encounter Plan of Treatment Not on file documented as of this encounter Results * US Abdomen Limited (01/25/2017 4:33 PM CDT) Anatomical Region Laterality Modality Abdomen N/A Ultrasound 01/25/2017 4:33 PM CDT Narrative 01/25/2017 4:33 PM CDT DATE OF EXAM: ??Jan 25 2017 11:33AM Acc#: ??[id number] ??EUS [id number] - US RUQ ?? DIAGNOSIS: [...] Electronically signed by: Shreyas Barger M.D. ? PT SITTER: ??PSC TRANSCRIBE DATE/TIME: ??Jan 25 2017 ??2:18P RADIOLOGIST: ??SHREYAS BARGER M.D. ??READ ON: ??Jan 25 2017 ??2:22P ORDERING DR: MARCO A AGOSTO M.D. ? THIS DOCUMENT HAS BEEN ELECTRONICALLY SIGNED BY: ??PARUL Perez, SHREYAS ??ON: ??Jan 25 2017 ??2:18P Attending: ??ROBB, ??MARCO A Requesting: ??ROBB, ??MARCO A Requesting Fax: ??[phone] Attending Fax: ??[phone] Attending ID: ??[id number] Requesting ID: ??[id number] Report To 1 ID: ?? Report To 1 Name: ??, ?? Report To 1 FAX: ??-- Report To 2 ID: ?? Report To 2 Name: ??, ?? Report To 2 FAX: ??-- NextGen Order #: ??[id number] Procedure Note Miscellaneous, Not In File / Provider, MD Anais - 01/25/2017 DATE OF EXAM: Jan 25 2017 11:33AM Acc#: [id number] EUS [id number] - US RUQ DIAGNOSIS: RIGHT [...] study. Electronically signed by: Shreyas Barger M.D. PT SITTER: PSC TRANSCRIBE DATE/TIME: Jan 25 2017 2:18P RADIOLOGIST: SHREYAS BARGER M.D. READ ON: Jan 25 2017 2:22P ORDERING DR: MARCO A AGOSTO M.D. THIS DOCUMENT HAS BEEN ELECTRONICALLY SIGNED BY: SHREYAS BARGER M.D. ON: Jan 25 2017 2:18P Attending: MARCO A AGOSTO Requesting: MARCO A AGOSTO Requesting Attending Attending ID: [id number] Requesting ID: [id number] Report To 1 ID: Report To 1 Name: , Report To 1 FAX: -- Report To 2 ID: Report To 2 Name: , Report To 2 FAX: -- NextGen Order #: [id number] us Marco A Agosto MD IMG US PROCEDURES Final R esult * (ABNORMAL) CBC with auto differential (01/20/2017 3:57 PM CDT) WBC 9.37 3.80 - 9.90 K/cumm CERNER RBC 3.88(L) 3.90 - 5.20 M/cumm CERNER Hgb 11.3(L) 11.9 - 15.5 g/dL CERNER Hct 35.2(L) 35.6 - 45.5 % CERNER MCV 90.7 81.3 - 96.4 fL C[facility]ER MCH 29.1 27.1 - 33.3 pg CERNER MCHC 32.1(L) 32.3 - 35.7 g/dL CERNER CH RDW CV 13.2 11.1 - 14.9 % CERNER CH RDW SD 43.5 35.7 - 48.1 fL CERNER Plt 295 150 - 400 K/cumm CERNER CH MPV 9.5 9.1 - 12.3 fL CERNER CH NRBC 0.0 0.0 - 0.2 % CERNER CH NRBC abs 0.00 0.00 - 0.01 K/cumm CERNER CH Blood specimen (specimen) 01/20/2017 3:57 PM CDT 01/20/2017 7:12 PM CDT Marco A Agosto MD LAB BLOOD ORDERABLES Tahira l Result Performing Organization Address City/[facility]/ZIP Co de Phone Number [facility] [address] [address] * Comprehensive metabolic panel (01/20/2017 3:57 PM CDT) Sodium 137 135 - 145 mmol/L [...] 3:57 PM CDT 01/20/2017 7:12 PM CDT Marco A Agosto MD LAB BLOOD ORDERABLES Tahira l Result Performing Organization Address City/[facility]/ZIP Co de Phone Number [facility] [address] Department [place] [employer] [address] documented in this encounter Visit Diagnoses Diagnosis Right upper quadrant pain- Primary Abdominal pain, right upper quadrant Severe obesity (BMI 35.0-39.9) with comorbidity (HCC) BMI 35.0-35.9,adult Right upper quadrant pain Abdominal pain, right upper quadrant documented in this encounter Discontinued Medications Medication Sig Discontinue Reason Start Date End Da te predniSONE (DELTASONE) 10 mg tablet take 1 tablet by oral route 2 times every day 08/28/2016 01/20/2017 clindamycin (CLEOCIN) 300 mg capsule take 1 capsule by oral route every 12 hours 08/28/2016 01/20/2017 documented as of this encounter Care Teams Analyst Programmer Relationship Specialty [place] [address] [place] [address] PCP - General 12/22/16 03/14/17 documented as of this encounter
--- OUTSIDE RECORDS SUMMARY | 2024-08-09 23:38 | XMS_ITS | Encounter Summary ---
Author Organization [facility] Healthcare Address [address] [place] [address] Care Team Providers Care Wood And Wood Products Factory Worker Name Role Phone Eagle Murphy NP Primary Care Provider +1- [phone] Encounter Details Date Type Department Care Team (Late st Contact Info) Description 09/03/2014 4:38 PM GUM ROLLING MACHINE TENDER - 09/03/2014 11:59 PM [facility] Hospital [place] [address] [phone] [place] [address] [id number] Pain in joint, shoulder region Social History Tobacco Use Types Packs/Day Years Used Date Smoking Tobacco: Never Alcohol Use Standard Drinks/Week Comments Yes 0 (1 standard drink = 0.6 oz pur e alcohol) Comments Unknown Sex and Gender Information Value Date Recorded Sex Assigned at Not on file Legal Sex Female 1:09 AM GUM ROLLING MACHINE TENDER Gender Identity Not on file [...] Name Priority Date/Time Associated Diagnosis Comments MRI UPPER EXTREMITY JOINT W CONTRAST Routine 09/03/2014 5:37 PM GUM ROLLING MACHINE TENDER documented in this encounter Results * MRI Upper Extremity Joint W Contrast (09/03/2014 5:37 PM GUM ROLLING MACHINE TENDER) Anatomical Region Laterality Modality Upper Extremities N/A Magnetic Reson ance 09/03/2014 5:37 PM GUM ROLLING MACHINE TENDER Narrative 09/04/2014 12:36 PM GUM ROLLING MACHINE TENDER MRI SHOULDER - RIGHT Acc#: ??[id number] DATE OF EXAM: ??Sep ??2014 CLINICAL HISTORY: [age] year old female complains of six month history of right shoulder pain. ??No stated prior history of injury or surgery. RESULT: PROTOCOL: Standard shoulder imaging was performed using axial gradient echo; sagittal T2; and paracoronal T1, fat suppressed T2, and PD weighted sequences. FINDINGS: The osseous structures of the shoulder are normal. ??There is no evidence of fracture, marrow edema or focal osseous lesion. ??A physiologic amount of fluid is present within the glenohumeral joint. The muscles and tendons of the rotator cuff are intact. ??There is mild abnormal signal within the distal supraspinatus which may represent mild tendinopathy. ??There is no evidence of full thickness tear or muscle belly atrophy. ??The long head of the biceps tendon is normal in position and morphology. ??The biceps anchor and superior labrum appear normal. The surrounding soft tissues and muscular structures are unremarkable. IMPRESSION: 1. MILD TENDINOPATHY OF THE DISTAL SUPRASPINATUS. 2. OTHERWISE NORMAL MRI OF THE RIGHT SHOULDER. Interpreting Physician: ??DR NOAM FAM M.D. ??Read on: ??Sep ??3 2014 9:30A Transcribed by: ??tisha ??On: Sep ??3 2014 10:43A Approved Electronically by: ??SARWAT Perez, DR SANTACRUZ ??on: ??Sep ??3 2014 12:36P Attending: ??NO, NAME Requesting: ??EAGLE MURPHY Requesting Fax: ??-- Attending Fax: ??-- Attending ID: ?? Requesting ID: ??[id number] Report To 1 ID: ??[id number] Report To 1 Name: ??EAGLE MURPHY Report To 1 FAX: ??-- NextGen Order #: Procedure Note Provider, MD Anais - 11/28/2016 MRI SHOULDER - RIGHT Acc#: [id number] DATE OF EXAM: Sep 03 2014 CLINICAL HISTORY: [age] year old female complains of six month history of rightshoulder pain. No stated prior history of injury or surgery. RESULT: PROTOCOL: Standard shoulder imaging was performed using axial gradient echo;sagittal T2; and paracoronal T1, fat suppressed T2, and PD weightedsequences. FINDINGS: The osseous structures of the shoulder are normal. There is no evidenceof fracture, marrow edema or focal osseous lesion. A physiologic amountof fluid is present within the glenohumeral joint. The muscles and tendonsof the rotator cuff are intact. There is mild abnormal signal within thedistal supraspinatus which may represent mild tendinopathy. There is noevidence of full thickness tear or muscle belly atrophy. The long head ofthe biceps tendon is normal in position and morphology. The biceps anchorand superior labrum appear normal. The surrounding soft tissues andmuscular structures are unremarkable. IMPRESSION: 1. MILD TENDINOPATHY OF THE DISTAL SUPRASPINATUS. 2. OTHERWISE NORMAL MRI OF THE RIGHT SHOULDER. Interpreting Physician: DR NOAM FAM M.D. Read on: Sep 04 20149:30A Transcribed by: tisha On: Sep 04 2014 10:43A Approved Electronically by: SARWAT Perez, DR SANTACRUZ on: Sep 04 201412:36P Attending: NO, NAME Requesting: EAGLE MURPHY Requesting Fax: -- Attending Fax: -- Attending ID: Requesting ID: [id number] Report To 1 ID: [id number] Report To 1 Name: EAGLE MURPHY Report To 1 FAX: -- NextGen Order #: Historical Provider MD MCMANUS MRI PROCEDURES Final Result documented in this encounter Visit Diagnoses Diagnosis Pain in joint, shoulder region documented in this encounter Care Teams Wood And Wood Products Factory Worker Relationship Specialty [place] [address] [place] [address] PCP - General 08/20/14 12/21/16 documented as of this encounter
--- OUTSIDE RECORDS SUMMARY | 2024-08-09 23:38 | XMS_ITS | Encounter Summary ---
Author Organization [facility] Facility Care Team Providers Care Vehicle Maintenance Supervisor Name Role Phone Kelly Olson NP Primary Care Provider +1- [phone] Encounter Details Date Type Department Care Team (Late st Contact Info) Description 10/11/2014 5:57 AM CDT - 10/11/2014 4:00 PM CDT [facility] MD [address] 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 Surgeon: Rd Chance M.D. Dictating: Rd Chance M.D. Service Dt: 10/11/2014 OPERATIVE REPORT FIRST BOAT LOADER HELPER: Peter Gonsales MD ANESTHESIA: Favian block. PREOPERATIVE DIAGNOSIS (ES): Right carpal tunnel syndrome. POSTOPERATIVE DIAGNOSIS (ES): Right carpal tunnel syndrome. NAME OF OPERATION: Right carpal tunnel release. INDICATIONS FOR PROCEDURE: This patient has had bilateral carpal tunnel syndrome and at this point with persistent symptoms wished to undergo operative management. I have offered an operation. She thought she would do both, but now she thought she would just do the right side. I thought this was reasonable. We went over the risks and benefits of surgery. The risks including but not limited to risk of anesthesia, bleeding, infection, nerve injury, tendon injury, possibility of persistent symptoms. She understood and wished to proceed. DESCRIPTION OF PROCEDURE: After consent was reviewed and the operative site was marked, the patient was brought to the operating room and kept supine on the operative stretcher. She underwent induction of sedation anesthesia. The right arm was prepped and draped with chlorhexidine with a forearm tourniquet. We performed a verbal time out to verify the above information. We then put up the [place] block and were able to start our case with a longitudinal incision in the palm just radial to the hook of the hamate. This was carried sharply through the skin, subcutaneous tissue, and palmar fascia. I visualized the transverse carpal ligament. There were no aberrant motor nerve branches seen. I incised the ligament under direct vision along its ulnar border into the fat pad of the palm distally and through the antebrachial fascia of the forearm proximally. Contents of the canal were normal. We irrigated the wound. We closed the skin with nylon suture. We injected 0.5% Marcaine with no epinephrine. A soft dressing was applied. The patient was awakened and taken Recovery in stable condition. SPECIMENS REMOVED: None. INTRAOPERATIVE FLUIDS: Per the anesthesia record. SPONGE/INSTRUMENT/NEEDLE COUNTS: Correct. CONDITION ON DISCHARGE FROM OPERATING ROOM: Stable to recovery. COMPLICATIONS: None. ATTESTATION STATEMENT: I was present for the entire case. Electronically Signed By Rd Chance M.D. 10/18/2014 12:[address] Chance M.D. [facility]/cxl #[id number] Editing MT: TD: 10/11/2014 11:33:00 cc: Orthopedic Billing Rd Chance M.D. documented in this encounter Plan of Treatment Not on file documented as of this encounter Visit Diagnoses Diagnosis Carpal tunnel syndrome documented in this encounter Care Teams Vehicle Maintenance Supervisor Relationship Specialty [place] [address] [address] PCP - General 08/20/14 12/21/16 documented as of this encounter
--- OUTSIDE RECORDS SUMMARY | 2024-08-09 23:38 | XMS_ITS | Encounter Summary ---
Author Organization [facility] Facility Care Team Providers Care Sheeting Puller Name Role Phone Kelly Olson NP Primary Care Provider +1- [phone] Encounter Details Date Type Department Care Team (Late st Contact Info) Description 10/19/2014 - 10/19/2014 11:59 PM CDT [facility] [place] [address] [facility] [address] [place] [address] Social History Tobacco Use Types Packs/Day Years Used Date Smoking Tobacco: Never Alcohol Use Standard Drinks/Week Comments Yes 0 (1 standard drink = 0.6 oz pur e alcohol) Comments Unknown Sex and Gender Information Value Date Recorded Sex Assigned at Not on file Legal Sex Female 1:09 AM 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
--- OUTSIDE RECORDS SUMMARY | 2024-08-09 23:39 | XMS_ITS | Encounter Summary ---
Author Organization [facility] Facility Care Team Providers Care Rangeland Management Specialist Name Role Phone Kelly Olson NP Primary Care Provider +1- [phone] Encounter Details Date Type Department Care Team (Late st Contact Info) Description 04/07/2013 - 04/07/2013 11:59 PM CDT Hospital Encounter [facility] TARAHCONYesy Jha MD [address] [place] [address] Cramp of limb Social History Tobacco Use Types Packs/Day Years Used Date Smoking Tobacco: Never Assessed Comments Unknown Sex and Gender Information Value Date Recorded Sex Assigned at Not on file 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 [facility] ? Department of Laboratories ?[place] [address] ?[facility] ?[address] [address] ?[place] [address] Patient Name: ? DEEJAY ALFROD Med Rec Number: ?? [id number] Date of : ?1975 Gender/Age: ? Female 38 years Doctor: ? Yesy Haro M.D. Report Date/Time: 04/07/2013 17:14 ?* Abnormal ??C Critical ??f Footnote ??^ Corrected ??L Low ??H High ?i Interp Data ??@ Reference Lab ?Chart Type: Cumulative ?URINALYSIS ?04/07/2013 ?13:49:37 Test ?Units ??Reference Color ? Colorless ?[Yellow] Clarity ? Cloudy ??* ?[Clear] Specific [place] ??1.005 ?[1.003-1.030] pH ?5.5 ?[5.0-8.0] Albumin ? Negative ? [Trace] Glucose ? Negative ? [Negative] Ketones ? Negative ? [Negative] Bilirubin ? Negative ? [Negative] Blood ? Negative ? [Negative] Urobilinogen ?<2.0 ?mg/dL ??[0.0-2.0] Nitrite ? Negative ? [Negative] Leuk Esterase ? 1+ ??* ?[Negative] Epithl Squam ?>20 ? /LPF Mucus Thrds ? Small ? /HPF RBC Ur ?1 ? /HPF ?? [0-3] WBC Ur ?2 ? /HPF ?? [0-5] Bacteria Ur ? Trace ?[Trace] Epithl Renl Ur ?0 ? /HPF ?? [0-0] us Historical Provider MD LAB BLOOD ORDERABLES Tahira granger Result HISTORICAL RESULTS * (ABNORMAL) Urinalysis (04/07/2013 1:49 PM CDT) Color, ur Colorless Yellow HISTORICAL RESULTS Clarity, ur Cloudy(A) Clear HISTORIC AL RESULTS Specific gravity, ur 1.005 1.003 - 1.030 HISTORICAL RESULTS pH, ur 5.5 5.0 - 8.0 HISTORICAL RESULTS Protein, ur Negative Trace HISTORIC AL RESULTS Glucose, ur Negative Negative HISTORIC AL RESULTS Ketones, ur Negative Negative HISTORIC AL RESULTS Bilirubin, ur Negative Negative HISTOR ICAL RESULTS U Blood Negative Negative HISTORICAL RESULTS Urobilinogen, quant, ur <2.0 0.0 - 2.0 mg/dl HISTORICAL RESULTS Nitrites, ur Negative Negative HISTORI BOONE RESULTS Leukocyte esterase, ur 1+(A) Negative HISTORICAL RESULTS Urine 04/07/2013 1:49 PM CDT Yesy Haro MD LAB BLOOD ORDERABLES Fin al Result Performing Organization Address City/[facility]/ZIP Co de Phone Number HISTORICAL RESULTS * Urine microscopy (04/07/2013 1:49 PM CDT) RBC, ur 1 0 - 3 /hpf HISTORICA L RESULTS WBC, ur 2 0 - 5 /hpf HISTORICA L RESULTS Bacteria, ur Trace Trace HISTORI BOONE RESULTS Epithelial cells, renal, ur 0 0 - 0 /hpf HISTORICAL RESULTS Epithelial cells, squamous, ur >20 /lpf HISTORICAL RESULTS Mucus, ur Small /hpf HISTORICAL RESULTS Urine 04/07/2013 1:49 PM CDT Yesy Haro MD LAB BLOOD ORDERABLES Fin al Result Performing Organization Address [facility] de Phone Number HISTORICAL RESULTS documented in this encounter Visit Diagnoses Diagnosis Cramp of limb documented in this encounter Care Teams Rangeland Management Specialist Relationship Specialty [place] [address] [address] PCP - General 09/15/12 08/19/14 documented as of this encounter
--- OUTSIDE RECORDS SUMMARY | 2024-08-09 23:39 | XMS_ITS | Encounter Summary ---
Author Organization [facility] Facility Care Team Providers Care Chute Feeder Name Role Phone Kelly Olson NP Primary Care Provider +1- [phone] Encounter Details Date Type Department Care Team (Late st Contact Info) Description 07/28/2011 - 07/28/2011 11:59 PM RESIDENTIAL INSTRUCTOR Hospital Encounter [facility] [place] [address] [place], [place] [id number] Pain in joint, shoulder region Social History Tobacco Use Types Packs/Day Years Used Date Smoking Tobacco: Never Assessed Comments Unknown Sex and Gender Information Value Date Recorded Sex Assigned at Not on file 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 Gender Identity Not on file Sexual Orientation Not on file documented as of this encounter Medications at Time of Discharge levothyroxine (SYNTHROID, LEVOTHROID) 150 mcg tablet TAKE 1 TABLET BY MOUTH EVERY DAY 90 2 04/28/2011 03/26/2017 documented as of this encounter Plan of Treatment Not on file documented as of this encounter Visit Diagnoses Diagnosis Pain in joint, shoulder region documented in this encounter Care Teams Chute Feeder Relationship Specialty [place] [address] [place] [address] PCP - General 11/07/10 09/14/12 documented as of this encounter
--- OUTSIDE RECORDS SUMMARY | 2024-08-09 23:39 | XMS_ITS | Encounter Summary ---
Author Organization [facility] Facility Care Team Providers Care Acting Manager Name Role Phone Kelly Olson NP Primary Care Provider +1- [phone] Encounter Details Date Type Department Care Team (Late st Contact Info) Description 03/22/2013 - 03/22/2013 11:59 PM CDT Hospital Encounter [facility] TARAHCONYesy Jha MD [address] [place] [address] Cramp of limb Social History Tobacco Use Types Packs/Day Years Used Date Smoking Tobacco: Never Assessed Comments Unknown Sex and Gender Information Value Date Recorded Sex Assigned at Not on file 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 [facility] ? Department of Laboratories ?[facility] [address] ?[facility] ?Outpatient ?Physician Patient Name: ? DEEJAY ALFORD Med Rec Number: ?? [id number] Date of : ?1975 Gender/Age: ? Female 38 years Doctor: ? Yesy Haro M.D. Report Date/Time: 03/22/2013 17:08 ?* Abnormal ??C Critical ??f Footnote ??^ Corrected ??L Low ??H High ?i Interp Data ??@ Reference Lab ?Chart Type: Cumulative ? CHEMISTRY ? Standard Blood Chemistry ?03/22/2013 ?10:45:00 Test ?Units ?Reference Total CK ??157 ? Units/L ??20-170 Aldolase ??4.8 ? Units/L ??0.0-8.0 03/22/2013 10:45:00 ??Aldolase: Testing performed by: [place] [address] us Historical Provider LAB BLOOD ORDERABLES Tahira l Result Performing Organization Address [facility] de Phone Number HISTORICAL RESULTS * Serum creatine kinase (CK) (03/22/2013 10:45 AM CDT) CK 157 20 - 170 Units/L HISTORICAL RESULTS Serum 03/22/2013 10:4 5 AM CDT Yesy Haro MD LAB BLOOD ORDERABLES Fin al Result Performing Organization Address [facility] de Phone Number HISTORICAL RESULTS * Serum aldolase (03/22/2013 10:45 AM CDT) Aldolase 4.8 0.0 - 8.0 Units/L HISTORICAL RESULTS Serum 03/22/2013 10:4 5 AM CDT Yesy Haro MD LAB BLOOD ORDERABLES Fin al Result Performing Organization Address [facility] de Phone Number HISTORICAL RESULTS documented in this encounter Visit Diagnoses Diagnosis Cramp of limb documented in this encounter Care Teams Acting Manager Relationship Specialty [place] [address] [address] [place] [address] PCP - General 09/15/12 08/19/14 documented as of this encounter
--- OUTSIDE RECORDS SUMMARY | 2024-08-09 23:39 | XMS_ITS | Encounter Summary ---
Author Organization [facility] Address [address] [place] [address] Care Team Providers Care Motor Scooter Mechanic Name Role Phone Kelly Olson NP Primary Care Provider +1- [phone] Encounter Details Date Type Department Care Team (Late st Contact Info) Description 03/28/2014 8:52 AM CDT - 03/28/2014 11:59 PM CDT Hospital Encounter [facility] Kelly Wood MD [address] [phone] [place] [address] Abnormal mammogram Social History Tobacco Use Types Packs/Day Years Used Date Smoking Tobacco: Never Alcohol Use Standard Drinks/Week Comments Yes 0 (1 standard drink = 0.6 oz pur e alcohol) Comments Unknown Sex and Gender Information Value Date Recorded Sex Assigned at Not on file 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 Gender Identity Not on file Sexual Orientation Not on file documented as of this encounter Medications at Time of Discharge levothyroxine (SYNTHROID, LEVOTHROID) 150 mcg tablet TAKE 1 TABLET BY MOUTH EVERY DAY 90 2 04/28/2011 03/26/2017 documented as of this encounter Plan of Treatment Not on file documented as of this encounter Procedures Procedure Name Priority Date/Time Associated Diagnosis Comments SCREENING MAMMOGRAM Routine 03/28/2014 9 :42 AM CDT documented in this encounter Results * Screening Mammogram (03/28/2014 9:42 AM CDT) Anatomical Region Laterality Modality Breast N/A Mammography 03/28/2014 9:42 AM CDT Narrative 03/28/2014 8:45 PM CDT Acc#: ??[id number] JENNIFER 0049 - Diag Mamm Connor Addl views Uni L DATE OF EXAM: ??Mar 28 2014 ??9:42AM DIAGNOSIS: ??LUMP OR MASS IN BREAST CLINICAL HISTORY: ??ABN MAMM RESULT: ?\ UNILATERAL DIGITAL DIAGNOSTIC FOLLOW-UP MAMMOGRAM WITH CAD AND TOMOSYNTHESIS Additional view of left breast in the lateromedial projection is obtained. ??Spot compressions are obtained in oblique and CC projections to evaluate the density in the upper outer quadrant of the left breast seen on the examination of 02/16/2014 and compared with the examination of 06/14/2012. ??This density is new since 06/14/2012. ??It persists on spot compressions. This could be a malignancy. ??MRI is recommended for further evaluation. IMPRESSION: ?\ CATEGORY 0 -- LEFT BREAST, INCOMPLETE. ??RECOMMEND MRI FOR FURTHER EVALUATION. TECHNOLOGIST: ?? JAY RANDLE, TECHNOLOGIST MEDICAL IMAGING PROFESSOR OF FOREST PLANNING: ??DM2 TRANSCRIBE DATE/TIME: ??Mar 28 2014 ??8:15P RADIOLOGIST: ??REZA MCNEAL M.D. ??READ ON: ??Mar 28 2014 ??5:13P ORDERING DR: KELLY PARSONS M.D. THIS DOCUMENT HAS BEEN ELECTRONICALLY SIGNED BY: ??REZA MCNEAL M.D. ??ON: ??Mar 28 2014 ??8:45P Requesting Fax: ??[phone] Procedure Note Provider, MD Anais - 11/28/2016 Acc#: [id number] JENNIFER 0049 - Diag Mamm Connor Addl views Uni L DATE OF EXAM: Mar 28 2014 9:42AM DIAGNOSIS: LUMP OR MASS IN BREAST CLINICAL HISTORY: ABN MAMM RESULT: \ UNILATERAL DIGITAL DIAGNOSTIC FOLLOW-UP MAMMOGRAM WITH CAD AND TOMOSYNTHESIS Additional view of left breast in the lateromedial projection is obtained. Spot compressions are obtained in oblique and CC projections to evaluate the density in the upper outer quadrant of the left breast seen on the examination of 02/16/2014 and compared with the examination of 06/14/2012. This density is new since 06/14/2012. It persists on spot compressions. This could be a malignancy. MRI is recommended for further evaluation. IMPRESSION: \ CATEGORY 0 -- LEFT BREAST, INCOMPLETE. RECOMMEND MRI FOR FURTHER EVALUATION. TECHNOLOGIST: JAY RANDLE, TECHNOLOGIST MEDICAL IMAGING PROFESSOR OF FOREST PLANNING: DM2 TRANSCRIBE DATE/TIME: Mar 28 2014 8:15P RADIOLOGIST: REZA MCNEAL M.D. READ ON: Mar 28 2014 5:13P ORDERING DR: KELLY PARSONS M.D. THIS DOCUMENT HAS BEEN ELECTRONICALLY SIGNED BY: REZA MCNEAL M.D. ON: Mar 28 2014 8:45P Requesting us Historical Provider MD [facility] MAMMO PROCEDURES Tahira l Result documented in this encounter Visit Diagnoses Diagnosis Abnormal mammogram Abnormal mammogram, unspecified documented in this encounter Care Teams Motor Scooter Mechanic Relationship Specialty [place] [address] [address] PCP - General 09/15/12 08/19/14 documented as of this encounter
--- OUTSIDE RECORDS SUMMARY | 2024-08-09 23:39 | XMS_ITS | Encounter Summary ---
Author Organization 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 Sex Female 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 Gender Identity Not on file Sexual Orientation [...] CUMULATIVE REPORT Routine 04/07/2013 5:14 PM CDT SERUM TRIIODOTHYRONINE (T3), FREE Routine 04/05/2013 4:47 PM CDT SERUM THYROXINE (T4), FREE Routine 04/05/2013 4:47 PM CDT SERUM THYROID-STIMULATING HORMONE (TSH) Routine 04/05/2013 4:47 PM CDT SERUM LACTATE DEHYDROGENASE (LDH) Routine 04/05/2013 4:47 PM CDT SERUM CREATINE KINASE (CK) Routine 04/05/2013 4:47 PM CDT SERUM C-REACTIVE PROTEIN Routine 013 4:47 PM CDT SERUM ASPARTATE TRANSAMINASE (AST) Routine 04/05/2013 4:47 PM CDT SERUM ALDOLASE Routine 04/05/2013 4:47 PM CDT SERUM ALANINE TRANSAMINASE (ALT) Routine 04/05/2013 4:47 PM CDT BLOOD ERYTHROCYTE SEDIMENTATION RATE (ESR) Routine 04/05/2013 4:47 PM CDT BLOOD CELL COUNT (CBC) Routine 3 4:47 PM CDT documented in this encounter Results * Discharge Laboratory Cumulative Report (04/07/2013 5:14 PM CDT) 04/07/2013 5:14 PM CDT Narrative HISTORICAL RESULTS - 04/07/2013 5:14 PM CDT ? [facility] ? Department of Laboratories ?[facility] [address] ?[facility] ?[address] ?[place] [address] Patient Name: ? DEEJAY ALFORD Med Rec Number: ?? [id number] Date of : ?1975 Gender/Age: ? Female 38 years Doctor: ? Yesy Haro M.D. Report Date/Time: 04/07/2013 17:14 ?* Abnormal ??C Critical ??f Footnote ??^ Corrected ??L Low ??H High ?i Interp Data ??@ Reference Lab ?Chart Type: Cumulative ? CHEMISTRY ? Standard Blood Chemistry ?04/05/2013 ?16:47:50 Test ?Units ?Reference ALT ? 21 ?Units/L ??7-53 AST ? 21 ?Units/L ??11-47 Total LD ??199 ? Units/L ??100-250 Total CK ??231 ??H ?Units/L ??20-170 Aldolase ??6.1 ? Units/L ??0.0-8.0 ? Hormones ?04/05/2013 ?16:47:50 Test ?Units ? Reference TSH i ? 4.66 ?mcIUnit/mL ??0.35-5.50 Free T4 (Free Thyroxine) ??1.01 ?ng/dL ? 0.90-1.80 Free T3 ? 3.0 ? pg/mL ? 2.3-4.2 04/05/2013 16:47:50 TSH: Interpretive Data Hyperthyroid: ??<0.1 mcIUnit/mL Hypothyroid: ??>12.0 mcIUnit/mL Current interpretive data was last revised on 00. 04/05/2013 16:47:50 ??T3 Free: Testing performed by: [facility], [place] [address] ?HEMATOLOGY ?Standard Hematology ?04/05/2013 ?16:47:50 Test ?Units ?? Reference WBC ? 9.1 ? K/cumm ??3.8-9.8 RBC ? 3.77 ??L ? M/cumm ??3.90-5.00 ?HEMATOLOGY ?Standard Hematology ?04/05/2013 ?16:47:50 Test ?Units ?? Reference Hgb ? 11.0 ??L ? g/dL ?12.1-15.1 Hct ? 33.1 ??L ? % ? 36.1-44.[address] ? 269 ? K/cumm ??140-440 MCV ? 87.9 ?fL ?80.0-97.6 MCH ? 29.3 ?pg ?26.7-33.7 MCHC ?33.3 ?g/dL ?32.7-35.5 RDW ? 13.8 ?% ? 11.8-14.6 MPV ? 7.6 ? fL ?6.8-10.4 Neut Pct Auto ?? 50.4 ?% ? 38.7-74.5 Lymph Pct Auto ??42.0 ?% ? 20.0-54.3 [place] Pct Auto ?? 6.5 ? % ? 4.3-13.5 Eos Pct Auto ?0.8 ? % ? 0.0-6.0 Baso Pct Auto ?? 0.3 ? % ? 0.0-3.0 Neut Abs Auto ?? 4.6 ? K/cumm ??1.8-6.6 Lymph Abs Auto ??3.8 ??H ?K/cumm ??1.2-3.3 [place] Abs Auto ?? 0.6 ? K/cumm ??0.2-1.2 Eos Abs Auto ?0.1 ? K/cumm ??0.0-0.5 Baso Abs Auto ?? 0.0 ? K/cumm ??0.0-0.2 ?04/05/2013 ?16:47:50 Test ?Units ??Reference ESR ?? 29 ??H ? mm/H ?? 0-25 ? SEROLOGY ?04/05/2013 ?16:47:00 Test ?Units ??Reference C-Reactive Protein ??1.0 ? mg/L ?? 0.0-9.9 us Historical Provider MD LAB BLOOD ORDERABLES Tahira l Result Performing Organization Address [facility] Phone Number HISTORICAL RESULTS * Serum alanine transaminase (ALT) (04/05/2013 4:47 PM CDT) ALT 21 7 - 53 Units/L HISTORICAL RESULTS Serum 04/05/2013 4:47 PM CDT Yesy Haro MD LAB BLOOD ORDERABLES Fin al Result Performing Organization Address [facility] de Phone Number HISTORICAL RESULTS * Serum aspartate transaminase (AST) (04/05/2013 4:47 PM CDT) AST 21 11 - 47 Units/L HISTORICAL RESULTS Serum 04/05/2013 4:47 PM CDT Yesy Haro MD LAB BLOOD ORDERABLES Fin al Result Performing Organization Address [facility] de Phone Number HISTORICAL RESULTS * Serum thyroid-stimulating hormone (TSH) (04/05/2013 4:47 PM CDT) TSH 4.66 0.35 - 5.50 mcIUnits/m l HISTORICAL RESULTS Comment: Interpretive Data Hyperthyroid: ??<0.1 mcIUnit/mL Hypothyroid: ??>12.0 mcIUnit/mL Current interpretive data was last revised on 00. Serum 04/05/2013 4:4 7 PM CDT Yesy Haro MD LAB BLOOD ORDERABLES Fin al Result Performing Organization Address [facility] Phone Number HISTORICAL RESULTS * Serum lactate dehydrogenase (LDH) (04/05/2013 4:47 PM CDT) Pathologist [facility] Lactate dehydrogenase (LDH) 199 100 - 250 Units/L HISTORICAL RESULTS Serum 04/05/2013 4:47 PM CDT Yesy Haro MD LAB BLOOD ORDERABLES Fin al Result Performing Organization Address [facility] Phone Number HISTORICAL RESULTS * (ABNORMAL) Serum creatine kinase (CK) (04/05/2013 4:47 PM CDT) CK 231(H) 20 - 170 Units/L HISTORICAL RESULTS Serum 04/05/2013 4:47 PM CDT Yesy Haro MD LAB BLOOD ORDERABLES Fin al Result Performing Organization Address [facility] de Phone Number HISTORICAL RESULTS * Serum C-reactive protein (04/05/2013 4:47 PM CDT) C-RP 1.0 0.0 - 9.9 mg/L HISTORICAL RESULTS Serum 04/05/2013 4:47 PM CDT Yesy Haro MD LAB BLOOD ORDERABLES Fin al Result Performing Organization Address [facility] de Phone Number HISTORICAL RESULTS * Serum triiodothyronine (T3), free (04/05/2013 4:47 PM CDT) Free T3 3.00 2.30 - 4.20 pg/ml HISTORICAL RESULTS Serum 04/05/2013 4:47 PM CDT Result [facility] Ysey Haro MD LAB BLOOD ORDERABLES Fin al Result Performing Organization Address [facility] de Phone Number HISTORICAL RESULTS * Serum aldolase (04/05/2013 4:47 PM CDT) Pathologist [facility] Aldolase 6.1 0.0 - 8.0 Units/L HISTORICAL RESULTS Serum 04/05/2013 4:47 PM CDT Yesy Haro MD LAB BLOOD ORDERABLES Fin al Result Performing Organization Address [facility] de Phone Number HISTORICAL RESULTS * Serum thyroxine (T4), free (04/05/2013 4:47 PM CDT) Free T4 1.01 0.90 - 1.80 ng/dl HISTORICAL RESULTS Serum 04/05/2013 4:47 PM CDT Yesy Haro MD LAB BLOOD ORDERABLES Fin al Result Performing Organization Address [facility] de Phone Number HISTORICAL RESULTS * (ABNORMAL) Blood cell count (CBC) (04/05/2013 4:47 PM CDT) Pathologist [facility] WBC 9.1 3.8 - 9.8 K/cumm HISTORICAL RESULTS RBC 3.77(L) 3.90 - 5.00 M/cumm HISTORICAL RESULTS Hgb 11.0(L) 12.1 - 15.1 g/dl HISTORICAL RESULTS Hct 33.1(L) 36.1 - 44.3 % HISTORICAL RESULTS MCV 87.9 80.0 - 97.6 fl HISTORICAL RESULTS MCH 29.3 26.7 - 33.7 pg HISTORICAL RESULTS MCHC 33.3 32.7 - 35.5 g/dl HISTORICAL RESULTS Rdw 13.8 11.8 - 14.6 % HISTORICAL RESULTS Platelets 269 140 - 440 K/cumm HISTORICAL RESULTS MPV 7.6 6.8 - 10.4 fl HISTORICAL RESULTS Neutrophils 50.4 38.7 - 74.5 % HISTORICAL RESULTS Lymphocytes 42.0 20.0 - 54.3 % HISTORICAL RESULTS Monos 6.5 4.3 - 13.5 % HISTORICAL RESULTS Eosinophils 0.8 0.0 - 6.0 % HISTORICAL RESULTS Basophils 0.3 0.0 - 3.0 % HISTORICAL RESULTS Neutrophils, abs 4.6 1.8 - 6.6 K/cumm HISTORICAL RESULTS Lymphocytes, abs 3.8(H) 1.2 - 3.3 K/cumm HISTORICAL RESULTS Monocytes, absolute 0.6 0.2 - 1.2 K/cumm HISTORICAL RESULTS Eosinophils, abs 0.1 0.0 - 0.5 K/cumm HISTORICAL RESULTS Basophils, abs 0.0 0.0 - 0.2 K/cumm HISTORICAL RESULTS Blood specimen (specimen) 04/05/2013 4:47 PM CDT Yesy Haro MD LAB BLOOD ORDERABLES Fin al Result HISTORICAL RESULTS * (ABNORMAL) Blood erythrocyte sedimentation rate (ESR) (04/05/2013 4:47 PM CDT) Erythrocyte sedimentation rate 29.0(H) 0.0 - 25.0 mm/hr HISTORICAL RESULTS Blood specimen (specimen) 04/05/2013 4:47 PM CDT Yesy Haro MD LAB BLOOD ORDERABLES Fin al Result HISTORICAL RESULTS documented in this encounter Visit Diagnoses Diagnosis Cramp of limb documented in this encounter Care Teams Fork Lift Truck Operator Relationship Specialty [place] [address] [address] PCP - General 09/15/12 08/19/14 documented as of this encounter
--- OUTSIDE RECORDS SUMMARY | 2024-08-09 23:39 | XMS_ITS | Encounter Summary ---
Author Organization [facility] Facility Care Team Providers Care Production Solderer Name Role Phone Kelly Olson NP Primary Care Provider [phone]- [phone] Encounter Details Date Type Department Care Team (Latest Contact Info) Description 05/06/2013 - 05/06/2013 11:59 PM CDT Hospital Encounter [facility] Low back pain; Degeneration of lumbar or lumbosacral intervertebral disc Social History Tobacco Use Types Packs/Day Years Used Date Smoking Tobacco: Never Assessed Comments Unknown Sex and Gender Information Value Date Recorded Sex Assigned at Not on file 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 Gender Identity Not on file Sexual Orientation Not on file documented as of this encounter Medications at Time of Discharge levothyroxine (SYNTHROID, LEVOTHROID) 150 mcg tablet TAKE 1 TABLET BY MOUTH EVERY DAY 90 2 04/28/2011 03/26/2017 documented as of this encounter Plan of Treatment Not on file documented as of this encounter Procedures Procedure Name Priority Date/Time Associated Diagnosis Comments MRI LUMBAR SPINE WO CONTRAST Routine 05/06/2013 1:40 PM CDT documented in this encounter Results * MRI Lumbar Spine WO Contrast (05/06/2013 1:40 PM CDT) Anatomical Region Laterality Modality Spine N/A Magnetic Resonan ce 05/06/2013 1:40 PM CDT Narrative 05/06/2013 4:24 PM CDT JULIO LOPEZ M.D. VIRGEN JOHNSON M.D. FINAL REPORT The radiology attending physician has personally reviewed this study, and has reviewed and/or edited this written report and agrees with it. ACC# ??Date Time ??Exam [id number] May 06, 2013 13:40:00 [id number] MRI Lumbar Spine wo cont ACC# ??Date Time ??Exam [id number] May 06, 2013 13:40:00 [id number] MRI Lumbar Spine wo cont ?? EXAMINATION: ?? Lumbar spine magnetic resonance imaging (MRI) without contrast. ? HISTORY: Worsening lower back pain TECHNIQUE: Multiplanar multi-weighted magnetic resonance imaging of the lumbar spine was performed without administration of intravenous gadolinium contrast according to the degenerative disc disease protocol. Contrast information: None given. Comparison: None available. FINDINGS: The lumbar spine is in the normal anatomic alignment. Vertebral bodies are of normal height without compression fractures. The bone marrow demonstrates normal signal intensity on all sequences except for T1/T2 hyperintensity at the L4-L5 disc space representing type II Modic changes.. ??The conus medullaris terminates at the level of L1-L2 and the distal spinal cord signal intensity is normal. Intervertebral discs show normal height and T2 signal intensity except for desiccation loss of height at the L4-L5 level. Annular fissures are not identified. No soft tissue abnormality within the limited views of the abdomen and pelvis is identified.The aorta is normal. L1-L2: The disc is normal in configuration. There is no facet arthropathy. There is no neural foraminal narrowing. There is no central canal stenosis. L2-L3: The disc is normal in configuration. There is no facet arthropathy. There is no neural foraminal narrowing. There is no central canal stenosis. L3-L4: The disc is normal in configuration. There is no facet arthropathy. There is no neural foraminal narrowing. There is no central canal stenosis. L4-L5: There is a broad-based disc bulge with right foraminal/subarticular zone extrusion. This extrusion abuts the traversing L5 nerve root. ??There is no facet arthropathy. There is moderate right and mild left neural foraminal narrowing. There is no central canal stenosis. L5-S1: The disc is normal in configuration. There is mild bilateral facet arthropathy. There is no neural foraminal narrowing. There is no central canal stenosis. ?? IMPRESSION: ?? Type II Modic changes are seen at the L4-L5 disc space with right disc extrusion resulting in abuttment of the subarticular right L5 nerve root. Requested By: CASSANDRA MAGANA ??MAdam. Dictated By: ?? VIRGEN JOHNSON M.D. ??on May ??2012 ??4:14P This document has been electronically signed by: JULIO LOPEZ M.D. on May ??2012 ??4:24P Procedure Note Provider, MD Anais - 11/28/2016 JULIO LOPEZ M.D. VIRGEN JOHNSON M.D. FINAL REPORT The radiology attending physician has personally reviewed this study, and has reviewed and/or edited this written report and agrees with it. ACC# Date Time Exam [id number] May 06, 2013 13:40:00 [id number] MRI Lumbar Spine wo cont ACC# Date Time Exam [id number] May 06, 2013 13:40:00 [id number] MRI Lumbar Spine wo cont EXAMINATION: Lumbar spine magnetic resonance imaging (MRI) without contrast. HISTORY: Worsening lower back pain TECHNIQUE: Multiplanar multi-weighted magnetic resonance imaging of the lumbar spine was performed without administration of intravenous gadolinium contrast according to the degenerative disc disease protocol. Contrast information: None given. Comparison: None available. FINDINGS: The lumbar spine is in the normal anatomic alignment. Vertebral bodies are of normal height without compression fractures. The bone marrow demonstrates normal signal intensity on all sequences except for T1/T2 hyperintensity at the L4-L5 disc space representing type II Modic changes.. The conus medullaris terminates at the level of L1-L2 and the distal spinal cord signal intensity is normal. Intervertebral discs show normal height and T2 signal intensity except for desiccation loss of height at the L4-L5 level. Annular fissures are not identified. No soft tissue abnormality within the limited views of the abdomen and pelvis is identified.The aorta is normal. L1-L2: The disc is normal in configuration. There is no facet arthropathy. There is no neural foraminal narrowing. There is no central canal stenosis. L2-L3: The disc is normal in configuration. There is no facet arthropathy. There is no neural foraminal narrowing. There is no central canal stenosis. L3-L4: The disc is normal in configuration. There is no facet arthropathy. There is no neural foraminal narrowing. There is no central canal stenosis. L4-L5: There is a broad-based disc bulge with right foraminal/subarticular zone extrusion. This extrusion abuts the traversing L5 nerve root. There is no facet arthropathy. There is moderate right and mild left neural foraminal narrowing. There is no central canal stenosis. L5-S1: The disc is normal in configuration. There is mild bilateral facet arthropathy. There is no neural foraminal narrowing. There is no central canal stenosis. IMPRESSION: Type II Modic changes are seen at the L4-L5 disc space with right disc extrusion resulting in abuttment of the subarticular right L5 nerve root. Requested By: CASSANDRA MAGANA M.D. Dictated By: VIRGEN JOHNSON M.D. on May 06 2013 4:14P This document has been electronically signed by: JULIO LOPEZ M.D. on May 06 2013 4:24P us Historical Provider MD [facility] MRI PROCEDURES Final Result documented in this encounter Visit Diagnoses Diagnosis Low back pain Lumbago Degeneration of lumbar or lumbosacral intervertebral disc documented in this encounter Care Teams Production Solderer Relationship Specialty [place] [address] [address] PCP - General 09/15/12 08/19/14 documented as of this encounter
--- OUTSIDE RECORDS SUMMARY | 2024-08-09 23:39 | XMS_ITS | Encounter Summary ---
Author Organization [facility] Facility Care Team Providers Care Warehouse Man Name Role Phone Kelly Olson NP Primary Care Provider +1- [phone] Encounter Details Date Type Department Care Team (Late st Contact Info) Description 03/02/2013 - 03/02/2013 11:59 PM CDT Hospital Encounter [facility] Yesy Haro MD [address] [facility] [address] [place] [address] Cramp of limb Social History Tobacco Use Types Packs/Day Years Used Date Smoking Tobacco: Never Assessed Comments Unknown Sex and Gender Information Value Date Recorded Sex Assigned at Not on file 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 [facility] ? Department of Laboratories ?[facility] [address] ?[facility] ?Outpatient ?Physician Patient Name: ? DEEJAY ALFORD Med Rec Number: ?? [id number] Date of : ?1975 Gender/Age: ? Female 38 years Doctor: ? Yesy Haro M.D. Report Date/Time: 03/03/2013 09:07 ?* Abnormal ??C Critical ??f Footnote ??^ Corrected ??L Low ??H High ?i Interp Data ??@ Reference Lab ?Chart Type: Cumulative ? CHEMISTRY ? Standard Blood Chemistry ?03/02/2013 ?15:30:00 Test ?Units ?Reference Total CK ??175 ??H ?Units/L ??20-170 Amylase ?? 55 ?Units/L ??28-100 us Historical Provider LAB BLOOD ORDERABLES Tahira l Result Performing Organization Address [facility] de Phone Number HISTORICAL RESULTS * (ABNORMAL) Serum creatine kinase (CK) (03/02/2013 3:30 PM CDT) CK 175(H) 20 - 170 Units/L HISTORICAL RESULTS Serum 03/02/2013 3:30 PM CDT Yesy Haro MD LAB BLOOD ORDERABLES Fin al Result Performing Organization Address [facility] de Phone Number HISTORICAL RESULTS * Plasma amylase (03/02/2013 3:30 PM CDT) [place], [address] 28 - 100 Units/L HISTORICAL RESULTS Plasma 03/02/2013 3:30 PM CDT Yesy Haro MD LAB BLOOD ORDERABLES Fin al Result Performing Organization Address [facility] de Phone Number HISTORICAL RESULTS documented in this encounter Visit Diagnoses Diagnosis Cramp of limb documented in this encounter Care Teams Warehouse Man Relationship Specialty [place] [address] [address] [place] [address] PCP - General 09/15/12 08/19/14 documented as of this encounter
--- OUTSIDE RECORDS SUMMARY | 2024-08-09 23:39 | XMS_ITS | Encounter Summary ---
Author Organization [facility] Facility Care Team Providers Care Commissary Helper Name Role Phone Kelly Olson NP Primary Care Provider +1- [phone] Encounter Details Date Type Department Care Team (Latest Contact Info) Description 11/24/2012 - 11/24/2012 11:59 PM CDT Hospital Encounter [facility] Arthralgia of temporomandibular joint; History of other injury Social History Tobacco Use Types Packs/Day Years Used Date Smoking Tobacco: Never Assessed Comments Unknown Sex and Gender Information Value Date Recorded Sex Assigned at Not on file 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 Gender Identity Not on file Sexual Orientation Not on file documented as of this encounter Medications at Time of Discharge levothyroxine (SYNTHROID, LEVOTHROID) 150 mcg tablet TAKE 1 TABLET BY MOUTH EVERY DAY 90 2 04/28/2011 03/26/2017 documented as of this encounter Plan of Treatment Not on file documented as of this encounter Procedures Procedure Name Priority Date/Time Associated Diagnosis Comments XR SKULL LESS THAN 4 VIEWS Routine 11/24/2012 10:08 AM CDT XR ORTHOPANTOGRAM/PANOREX Routine 2012 9:48 AM CDT XR TEMPOROMANDIBULAR JOINTS BILATERAL Routine 11/24/2012 9:15 AM CDT documented in this encounter Results * XR Skull < 4 View (11/24/2012 10:08 AM CDT) Anatomical Region Laterality Modality Head and Neck N/A Radiographic Leti ging 11/24/2012 10:0 8 AM CDT Narrative 11/24/2012 2:47 PM CDT BOBBI PANDYA M.D. JOHNIE ORTIZ, FINAL REPORT The radiology attending physician has personally reviewed this study, and has reviewed and/or edited this written report and agrees with it. ACC# ??Date Time ??Exam [id number] Nov 24, 2012 10:08:00 23791 Skull < 4 views EXAMINATION: ?Skull less than 4 views HISTORY: Pain after trauma right TMJ FINDINGS: ?? Three views of the skull were submitted for interpretation without comparison. Multiple dental restorations are noted. No fractures are identified. The sinuses are well aerated. If clinically suspicious for head trauma, a dedicated head CT is recommended to further evaluate. IMPRESSION: ?? No fractures identified. If clinically suspicious for head trauma, a dedicated head CT is recommended to further evaluate. Requested By: JOSE D WANG ??Ana Dictated By: ?? JOHNIE ORTIZ, ?? on Nov 24 2012 ??2:42P This document has been electronically signed by: BOBBI PANDYA M.D. on Nov 24 2012 ??2:46P Procedure Note Provider, MD Anais - 11/28/2016 BOBBI PANDYA M.D. JOHNIE ORTIZ, FINAL REPORT The radiology attending physician has personally reviewed this study, and has reviewed and/or edited this written report and agrees with it. ACC# Date Time Exam [id number] Nov 24, 2012 10:08:00 [id number] Skull < 4 views EXAMINATION: Skull less than 4 views HISTORY: Pain after trauma right TMJ FINDINGS: Three views of the skull were submitted for interpretation without comparison. Multiple dental restorations are noted. No fractures are identified. The sinuses are well aerated. If clinically suspicious for head trauma, a dedicated head CT is recommended to further evaluate. IMPRESSION: No fractures identified. If clinically suspicious for head trauma, a dedicated head CT is recommended to further evaluate. Requested By: JOSE D WANG M.D. Dictated By: JOHNIE ORTIZ, on Nov 24 2012 2:42P This document has been electronically signed by: BOBBI PANDYA M.D. on Nov 24 2012 2:46P us Historical Provider MD [facility] XR PROCEDURES Final R esult * XR Orthopantogram/Panorex (11/24/2012 9:48 AM CDT) Anatomical Region Laterality Modality Head and Neck N/A Radiographic Leti ging 11/24/2012 9:48 AM CDT Narrative 11/24/2012 9:30 PM CDT WOLF MOCK M.D. JOHNIE HANSEN M.D. FINAL REPORT The radiology attending physician has personally reviewed this study, and has reviewed and/or edited this written report and agrees with it. ACC# ??Date Time ??Exam [id number] Nov 24, 2012 09:15:00 40540 TMJ Bilateral Open/Closed L [id number] Nov 24, 2012 09:48:00 [id number] Orthopantogram ACC# ??Date Time ??Exam [id number] Nov 24, 2012 09:15:00 94886 TMJ Bilateral Open/Closed L [id number] Nov 24, 2012 09:48:00 [id number] Orthopantogram EXAMINATION: ? 1. Bilateral temporomandibular joints open/closed 2. Orthopantogram HISTORY: ??Left temporomandibular joint trauma and pain; dental caries FINDINGS: ?? Open and closed mouth frontal and lateral views of the bilateral temporomandibular joints as well as an orthopantogram are submitted for interpretation without comparison. The bilateral mandibular condyles are seated normally within the condylar fossae on frontal views. The right temporomandibular joint is in normal anatomic alignment in both open and closed mouth lateral views. The left temporomandibular joint is not well seen on lateral views. The patient was offered a repeat examination at no charge, but the patient declined as an orthopantogram was already scheduled for the patient. Orthopantogram: ??The following teeth are missin,16,17, 20, 29 and 32. A bridge spans teeth numbers 19-21. Multiple dental restorations are present. There are no dental caries. There are no periapical lucencies to suggest infection. The bilateral condyles project within the condylar fossae.No fractures of the mandible are seen. ?? IMPRESSION: ?? 1. Multiple missing teeth and dental restorations as described above. 2. Normal radiographic examination of the right temporomandibular joint. 3. Limited examination of the left temporomandibular joint. However, no mandibular fractures are seen and the left mandibular condyle is seated normally within the condylar fossae on frontal views. :: ?? Requested By: JOSE D WANG ??MLisa Dictated By: ?? JOHNIE HANSEN M.D. ??on Nov 24 2012 ??2:52P This document has been electronically signed by: WOLF MOCK M.D. on Nov 24 2012 ??9:29P Procedure Note Provider, MD Anais - 11/28/2016 Ana PIMENTEL M.D. FINAL REPORT The radiology attending physician has personally reviewed this study, and has reviewed and/or edited this written report and agrees with it. ACC# Date Time Exam [id number] Nov 24, 2012 09:15:00 07054 TMJ Bilateral Open/Closed L [id number] Nov 24, 2012 09:48:00 43753 Orthopantogram ACC# Date Time Exam [id number] Nov 24, 2012 09:15:00 26916 TMJ Bilateral Open/Closed L [id number] Nov 24, 2012 09:48:00 [id number] Orthopantogram EXAMINATION: 1. Bilateral temporomandibular joints open/closed 2. Orthopantogram HISTORY: Left temporomandibular joint trauma and pain; dental caries FINDINGS: Open and closed mouth frontal and lateral views of the bilateral temporomandibular joints as well as an orthopantogram are submitted for interpretation without comparison. The bilateral mandibular condyles are seated normally within the condylar fossae on frontal views. The right temporomandibular joint is in normal anatomic alignment in both open and closed mouth lateral views. The left temporomandibular joint is not well seen on lateral views. The patient was offered a repeat examination at no charge, but the patient declined as an orthopantogram was already scheduled for the patient. Orthopantogram: The following teeth are missin,16,17, 20, 29 and 32. A bridge spans teeth numbers 19-21. Multiple dental restorations are present. There are no dental caries. There are no periapical lucencies to suggest infection. The bilateral condyles project within the condylar fossae.No fractures of the mandible are seen. IMPRESSION: 1. Multiple missing teeth and dental restorations as described above. 2. Normal radiographic examination of the right temporomandibular joint. 3. Limited examination of the left temporomandibular joint. However, no mandibular fractures are seen and the left mandibular condyle is seated normally within the condylar fossae on frontal views. :: Requested By: JOSE D WANG M.D. Dictated By: JOHNIE HANSEN M.D. on Nov 24 2012 2:52P This document has been electronically signed by: WOLF MOCK M.D. on Nov 24 2012 9:29P us Historical Provider MD [facility] XR PROCEDURES Final R esult * XR Temporomandibular Joints Bilateral (11/24/2012 9:15 AM CDT) Anatomical Region Laterality Modality Head and Neck Bilateral Radiographic Leti ging 11/24/2012 9:15 AM CDT Narrative 11/24/2012 9:30 PM CDT Ana PIMENTEL M.D. FINAL REPORT The radiology attending physician has personally reviewed this study, and has reviewed and/or edited this written report and agrees with it. ACC# ??Date Time ??Exam [id number] Nov 24, 2012 09:15:00 56057 TMJ Bilateral Open/Closed L [id number] Nov 24, 2012 09:48:00 48834 Orthopantogram ACC# ??Date Time ??Exam [id number] Nov 24, 2012 09:15:00 [id number] TMJ Bilateral Open/Closed L [id number] Nov 24, 2012 09:48:00 [id number] Orthopantogram EXAMINATION: ? 1. Bilateral temporomandibular joints open/closed 2. Orthopantogram HISTORY: ??Left temporomandibular joint trauma and pain; dental caries FINDINGS: ?? Open and closed mouth frontal and lateral views of the bilateral temporomandibular joints as well as an orthopantogram are submitted for interpretation without comparison. The bilateral mandibular condyles are seated normally within the condylar fossae on frontal views. The right temporomandibular joint is in normal anatomic alignment in both open and closed mouth lateral views. The left temporomandibular joint is not well seen on lateral views. The patient was offered a repeat examination at no charge, but the patient declined as an orthopantogram was already scheduled for the patient. Orthopantogram: ??The following teeth are missin,16,17, 20, 29 and 32. A bridge spans teeth numbers 19-21. Multiple dental restorations are present. There are no dental caries. There are no periapical lucencies to suggest infection. The bilateral condyles project within the condylar fossae.No fractures of the mandible are seen. ?? IMPRESSION: ?? 1. Multiple missing teeth and dental restorations as described above. 2. Normal radiographic examination of the right temporomandibular joint. 3. Limited examination of the left temporomandibular joint. However, no mandibular fractures are seen and the left mandibular condyle is seated normally within the condylar fossae on frontal views. :: ?? Requested By: JOSE D WANG ??MMauriceDMaurice Dictated By: ?? JOHNIE HANSEN M.D. ??on Nov 24 2012 ??2:52P This document has been electronically signed by: WOLF MOCK M.D. on Nov 24 2012 ??9:29P Procedure Note Provider, MD Anais - 11/28/2016 WOLF MOCK M.D. JOHNIE HANSEN M.D. FINAL REPORT The radiology attending physician has personally reviewed this study, and has reviewed and/or edited this written report and agrees with it. ACC# Date Time Exam [id number] Nov 24, 2012 09:15:00 [id number] TMJ Bilateral Open/Closed L [id number] Nov 24, 2012 09:48:00 [id number] Orthopantogram ACC# Date Time Exam [id number] Nov 24, 2012 09:15:00 59578 TMJ Bilateral Open/Closed L [id number] Nov 24, 2012 09:48:00 [id number] Orthopantogram EXAMINATION: 1. Bilateral temporomandibular joints open/closed 2. Orthopantogram HISTORY: Left temporomandibular joint trauma and pain; dental caries FINDINGS: Open and closed mouth frontal and lateral views of the bilateral temporomandibular joints as well as an orthopantogram are submitted for interpretation without comparison. The bilateral mandibular condyles are seated normally within the condylar fossae on frontal views. The right temporomandibular joint is in normal anatomic alignment in both open and closed mouth lateral views. The left temporomandibular joint is not well seen on lateral views. The patient was offered a repeat examination at no charge, but the patient declined as an orthopantogram was already scheduled for the patient. Orthopantogram: The following teeth are missin,16,17, 20, 29 and 32. A bridge spans teeth numbers 19-21. Multiple dental restorations are present. There are no dental caries. There are no periapical lucencies to suggest infection. The bilateral condyles project within the condylar fossae.No fractures of the mandible are seen. IMPRESSION: 1. Multiple missing teeth and dental restorations as described above. 2. Normal radiographic examination of the right temporomandibular joint. 3. Limited examination of the left temporomandibular joint. However, no mandibular fractures are seen and the left mandibular condyle is seated normally within the condylar fossae on frontal views. :: Requested By: JOSE D WANG M.D. Dictated By: JOHNIE HANSEN M.D. on Nov 24 2012 2:52P This document has been electronically signed by: WOLF MOCK M.D. on Nov 24 2012 9:29P Historical Provider MD [facility] XR PROCEDURES Final R esult documented in this encounter Visit Diagnoses Diagnosis Arthralgia of temporomandibular joint History of other injury documented in this encounter Care Teams Commissary Helper Relationship Specialty [place] [address] [address] PCP - General 09/15/12 08/19/14 documented as of this encounter
--- OUTSIDE RECORDS SUMMARY | 2024-08-09 23:39 | XMS_ITS | Encounter Summary ---
Author Organization [facility] Facility Care Team Providers Care Payroll Consultant Name Role Phone Kelly Olson NP Primary Care Provider [phone]- [phone] Encounter Details Date Type Department Care Team (Late st Contact Info) Description 04/09/2014 - 04/09/2014 11:59 PM CDT Hospital Encounter [facility] Kelly Irizarry MD [address] [facility] [address] [id number] [place], [place] [id number] Hypertrophy of breast; Fibrosclerosis of breast Social History Tobacco Use Types Packs/Day Years Used Date Smoking Tobacco: Never Alcohol Use Standard Drinks/Week Comments Yes 0 (1 standard drink = 0.6 oz pur e alcohol) Comments Unknown Sex and Gender Information Value Date Recorded Sex Assigned at Not on file 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 FINAL REPORT The radiology attending physician has personally reviewed this study, and has reviewed and/or edited this written report and agrees with it. ACC# ??Date Time ??Exam [id number] Apr 09, 2014 14:06:00 [facility] 45035 Breast Bx Incl Loc Stereo L [id number] Apr 09, 2014 14:17:00 [facility] [id number] Mamm Unilat Post Bx Films L ACC# ??Date Time ??Exam [id number] Apr 09, 2014 14:06:00 [facility] 40730 Breast Bx Incl Loc Stereo L [id number] Apr 09, 2014 14:17:00 [facility] [id number] Mamm Unilat Post Bx Films L EXAMINATION: ?? VACUUM-ASSISTED CORE BIOPSY OF THE LEFT BREAST UTILIZING STEREOTACTIC GUIDANCE, TISSUE MARKER CLIP PLACEMENT AND LEFT UNILATERAL DIGITAL MAMMOGRAM HISTORY: 39-year-old woman with an abnormal mammogram from another facility. Outside mammograms dated 03/28/2014 and 02/16/2014 demonstrated interval development of a focal asymmetry in the posterior upper outer quadrant of the left breast. By report, a directed left breast sonogram dated 04/03/2014 demonstrated no specific correlate. Stereotactic-guided core needle biopsy is requested to evaluate for malignancy. PROCEDURE AND FINDINGS: The risks and potential benefits of the procedure were discussed with the patient and written informed consent was obtained. The patient was placed in the prone position on the stereotactic table with the breast in lateromedial compression and the area of interest was localized and targeted utilizing digital imaging with stereotaxis. After sterile preparation of the skin, 1% Polocaine was utilized for local anesthesia at the skin puncture site and for deeper local anesthesia about the biopsy site. Lidocaine was not used because the patient reported a questionable history of prior reaction to lidocaine. A small skin incision was made with a #11 scalpel blade. ??A 9 gauge Suros vacuum-assisted biopsy needle was then advanced through the skin incision to the level of the focal asymmetry of interest from a lateral approach utilizing stereotactic guidance and a total of 6 tissue cores were obtained. A SecurMark tissue marker clip was then placed at the biopsy site. The needle was removed and hemostasis was achieved. A sterile bandage and an ice pack were applied. The patient tolerated the procedure well and there is no evidence of significant immediate complication. The patient was given verbal as well as written post procedural instructions prior to release from the department. The tissue cores were submitted to surgical pathology in formalin for histologic analysis. A two-view left unilateral digital mammogram was obtained post procedure and this demonstrates that the tissue marker clip is in the expected position. The attending radiologist, Dr. Lloyd, was present throughout the entire procedure. Dr. Hammonds (diagnostic vice president medical affairs) and Dr. Cardozo (diagnostic vice president medical affairs) also participated in this examination. ?? IMPRESSION: ?Successful vacuum-assisted core needle biopsy of the focal asymmetry of interest in the posterior upper outer quadrant of the left breast utilizing stereotactic guidance. ??Pathology pending. ?? ADDENDUM #1 by Magda Campbell RN for Dr. Jacqui Lloyd on 04/16/2014 at 11:50 a.m.: Pathology evaluation by Dr. Pina Duran demonstrated columnar cell hyperplasia and stromal fibrosis. ??By report, there were no atypical or malignant findings. ??These findings are benign and concordant with the imaging findings. ??Annual screening mammography is recommended, in accordance with the [place] breast cancer screening guidelines. ??The patient was notified of the biopsy results and recommendation by Roya Willis, MSN, ACNS-BC of the [facility] on 04/13/2014. ?? Requested By: Dictated By: ?? LE HAMMONDS, ?? on Apr ??2013 ??2:37P This document has been electronically signed by: JACQUI LLOYD M.D. on Apr ??2013 ??3:01P on Apr 16 2014 11:50A This Addendum has been electronically signed by: JACQUI LLODY M.D. on Apr 16 2014 ??1:48P Procedure Note Provider, MD Anais - 11/28/2016 JACQUI LLOYD M.D. FINAL REPORT The radiology attending physician has personally reviewed this study, and has reviewed and/or edited this written report and agrees with it. ACC# Date Time Exam [id number] Apr 09, 2014 14:06:00 [facility] 96620 Breast Bx Incl Loc Stereo L [id number] Apr 09, 2014 14:17:00 [facility] [id number] Mamm Unilat Post Bx Films L ACC# Date Time Exam [id number] Apr 09, 2014 14:06:00 [facility] 95084 Breast Bx Incl Loc Stereo L [id number] Apr 09, 2014 14:17:00 [facility] [id number] Mamm Unilat Post Bx Films L EXAMINATION: VACUUM-ASSISTED CORE BIOPSY OF THE LEFT BREAST UTILIZING STEREOTACTIC GUIDANCE, TISSUE MARKER CLIP PLACEMENT AND LEFT UNILATERAL DIGITAL MAMMOGRAM HISTORY: 39-year-old woman with an abnormal mammogram from another facility. Outside mammograms dated 03/28/2014 and 02/16/2014 demonstrated interval development of a focal asymmetry in the posterior upper outer quadrant of the left breast. By report, a directed left breast sonogram dated 04/03/2014 demonstrated no specific correlate. Stereotactic-guided core needle biopsy is requested to evaluate for malignancy. PROCEDURE AND FINDINGS: The risks and potential benefits of the procedure were discussed with the patient and written informed consent was obtained. The patient was placed in the prone position on the stereotactic table with the breast in lateromedial compression and the area of interest was localized and targeted utilizing digital imaging with stereotaxis. After sterile preparation of the skin, 1% Polocaine was utilized for local anesthesia at the skin puncture site and for deeper local anesthesia about the biopsy site. Lidocaine was not used because the patient reported a questionable history of prior reaction to lidocaine. A small skin incision was made with a #11 scalpel blade. A 9 gauge Airec vacuum-assisted biopsy needle was then advanced through the skin incision to the level of the focal asymmetry of interest from a lateral approach utilizing stereotactic guidance and a total of 6 tissue cores were obtained. A Q-gourMark tissue marker clip was then placed at the biopsy site. The needle was removed and hemostasis was achieved. A sterile bandage and an ice pack were applied. The patient tolerated the procedure well and there is no evidence of significant immediate complication. The patient was given verbal as well as written post procedural instructions prior to release from the department. The tissue cores were submitted to surgical pathology in formalin for histologic analysis. A two-view left unilateral digital mammogram was obtained post procedure and this demonstrates that the tissue marker clip is in the expected position. The attending radiologist, Dr. Lloyd, was present throughout the entire procedure. Dr. Hammonds (diagnostic vice president medical affairs) and Dr. Cardozo (diagnostic vice president medical affairs) also participated in this examination. IMPRESSION: Successful vacuum-assisted core needle biopsy of the focal asymmetry of interest in the posterior upper outer quadrant of the left breast utilizing stereotactic guidance. Pathology pending. ADDENDUM #1 by Magda Campbell RN for Dr. Jacqui Lloyd on 04/16/2014 at 11:50 a.m.: Pathology evaluation by Dr. Pina Duran demonstrated columnar cell hyperplasia and stromal fibrosis. By report, there were no atypical or malignant findings. These findings are benign and concordant with the imaging findings. Annual screening mammography is recommended, in accordance with the [place] [employer] breast cancer screening guidelines. The patient was notified of the biopsy results and recommendation by Roya Willis, MSN, ACNS-BC of the [facility] on 04/13/2014. Requested By: Dictated By: LE HAMMONDS, on Apr 09 2014 2:37P This document has been electronically signed by: JACQUI LLOYD M.D. on Apr 09 2014 3:01P on Apr 16 2014 11:50A This Addendum has been electronically signed by: JACQUI LLOYD M.D. on Apr 16 2014 1:48P us Historical Provider MD [facility] MAMMO PROCEDURES Tahira l Result * Steriotactic Breast Biopsy (04/09/2014 2:06 PM CDT) Anatomical Region Laterality Modality Breast N/A Mammography 04/09/2014 2:06 PM CDT Narrative 04/16/2014 1:48 PM CDT JACQUI LLOYD M.D. FINAL REPORT The radiology attending physician has personally reviewed this study, and has reviewed and/or edited this written report and agrees with it. ACC# ??Date Time ??Exam [id number] Apr 09, 2014 14:06:00 [facility] 05624 Breast Bx Incl Loc Stereo L [id number] Apr 09, 2014 14:17:00 [facility] 55095C Mamm Unilat Post Bx Films L ACC# ??Date Time ??Exam [id number] Apr 09, 2014 14:06:00 [facility] 24135 Breast Bx Incl Loc Stereo L [id number] Apr 09, 2014 14:17:00 [facility] [id number] Mamm Unilat Post Bx Films L EXAMINATION: ?? VACUUM-ASSISTED CORE BIOPSY OF THE LEFT BREAST UTILIZING STEREOTACTIC GUIDANCE, TISSUE MARKER CLIP PLACEMENT AND LEFT UNILATERAL DIGITAL MAMMOGRAM HISTORY: 39-year-old woman with an abnormal mammogram from another facility. Outside mammograms dated 03/28/2014 and 02/16/2014 demonstrated interval development of a focal asymmetry in the posterior upper outer quadrant of the left breast. By report, a directed left breast sonogram dated 04/03/2014 demonstrated no specific correlate. Stereotactic-guided core needle biopsy is requested to evaluate for malignancy. PROCEDURE AND FINDINGS: The risks and potential benefits of the procedure were discussed with the patient and written informed consent was obtained. The patient was placed in the prone position on the stereotactic table with the breast in lateromedial compression and the area of interest was localized and targeted utilizing digital imaging with stereotaxis. After sterile preparation of the skin, 1% Polocaine was utilized for local anesthesia at the skin puncture site and for deeper local anesthesia about the biopsy site. Lidocaine was not used because the patient reported a questionable history of prior reaction to lidocaine. A small skin incision was made with a #11 scalpel blade. ??A 9 gauge Airec vacuum-assisted biopsy needle was then advanced through the skin incision to the level of the focal asymmetry of interest from a lateral approach utilizing stereotactic guidance and a total of 6 tissue cores were obtained. A Q-gourMark tissue marker clip was then placed at the biopsy site. The needle was removed and hemostasis was achieved. A sterile bandage and an ice pack were applied. The patient tolerated the procedure well and there is no evidence of significant immediate complication. The patient was given verbal as well as written post procedural instructions prior to release from the department. The tissue cores were submitted to surgical pathology in formalin for histologic analysis. A two-view left unilateral digital mammogram was obtained post procedure and this demonstrates that the tissue marker clip is in the expected position. The attending radiologist, Dr. Lloyd, was present throughout the entire procedure. Dr. Hammonds (diagnostic vice president medical affairs) and Dr. Cardozo (diagnostic vice president medical affairs) also participated in this examination. ?? IMPRESSION: ?Successful vacuum-assisted core needle biopsy of the focal asymmetry of interest in the posterior upper outer quadrant of the left breast utilizing stereotactic guidance. ??Pathology pending. ?? ADDENDUM #1 by Magda Campbell RN for Dr. Jacqui Lloyd on 04/16/2014 at 11:50 a.m.: Pathology evaluation by Dr. Pina Duran demonstrated columnar cell hyperplasia and stromal fibrosis. ??By report, there were no atypical or malignant findings. ??These findings are benign and concordant with the imaging findings. ??Annual screening mammography is recommended, in accordance with the [place] [employer] breast cancer screening guidelines. ??The patient was notified of the biopsy results and recommendation by Roya Willis, MSN, ACNS- of the [facility] on 04/13/2014. ?? Requested By: Dictated By: ?? LE HAMMONDS, ?? on Apr ??2013 ??2:37P This document has been electronically signed by: JACQUI LLOYD M.D. on Apr ??2013 ??3:01P on Apr 16 2014 11:50A This Addendum has been electronically signed by: JACQUI LLOYD M.D. on Apr 16 2014 ??1:48P Procedure Note Provider, MD Anais - 11/28/2016 JACQUI LLOYD M.D. FINAL REPORT The radiology attending physician has personally reviewed this study, and has reviewed and/or edited this written report and agrees with it. ACC# Date Time Exam [id number] Apr 09, 2014 14:06:00 [facility] 32365 Breast Bx Incl Loc Stereo L [id number] Apr 09, 2014 14:17:00 [facility] [id number] Mamm Unilat Post Bx Films L ACC# Date Time Exam [id number] Apr 09, 2014 14:06:00 [facility] 08948 Breast Bx Incl Loc Stereo L [id number] Apr 09, 2014 14:17:00 [facility] [id number] Mamm Unilat Post Bx Films L EXAMINATION: VACUUM-ASSISTED CORE BIOPSY OF THE LEFT BREAST UTILIZING STEREOTACTIC GUIDANCE, TISSUE MARKER CLIP PLACEMENT AND LEFT UNILATERAL DIGITAL MAMMOGRAM HISTORY: 39-year-old woman with an abnormal mammogram from another facility. Outside mammograms dated 03/28/2014 and 02/16/2014 demonstrated interval development of a focal asymmetry in the posterior upper outer quadrant of the left breast. By report, a directed left breast sonogram dated 04/03/2014 demonstrated no specific correlate. Stereotactic-guided core needle biopsy is requested to evaluate for malignancy. PROCEDURE AND FINDINGS: The risks and potential benefits of the procedure were discussed with the patient and written informed consent was obtained. The patient was placed in the prone position on the stereotactic table with the breast in lateromedial compression and the area of interest was localized and targeted utilizing digital imaging with stereotaxis. After sterile preparation of the skin, 1% Polocaine was utilized for local anesthesia at the skin puncture site and for deeper local anesthesia about the biopsy site. Lidocaine was not used because the patient reported a questionable history of prior reaction to lidocaine. A small skin incision was made with a #11 scalpel blade. A 9 gauge Airec vacuum-assisted biopsy needle was then advanced through the skin incision to the level of the focal asymmetry of interest from a lateral approach utilizing stereotactic guidance and a total of 6 tissue cores were obtained. A SecurMark tissue marker clip was then placed at the biopsy site. The needle was removed and hemostasis was achieved. A sterile bandage and an ice pack were applied. The patient tolerated the procedure well and there is no evidence of significant immediate complication. The patient was given verbal as well as written post procedural instructions prior to release from the department. The tissue cores were submitted to surgical pathology in formalin for histologic analysis. A two-view left unilateral digital mammogram was obtained post procedure and this demonstrates that the tissue marker clip is in the expected position. The attending radiologist, Dr. Lloyd, was present throughout the entire procedure. Dr. Hammonds (diagnostic vice president medical affairs) and Dr. Cardozo (diagnostic vice president medical affairs) also participated in this examination. IMPRESSION: Successful vacuum-assisted core needle biopsy of the focal asymmetry of interest in the posterior upper outer quadrant of the left breast utilizing stereotactic guidance. Pathology pending. ADDENDUM #1 by Magda Campbell RN for Dr. Jacqui Lloyd on 04/16/2014 at 11:50 a.m.: Pathology evaluation by Dr. Pina Duran demonstrated columnar cell hyperplasia and stromal fibrosis. By report, there were no atypical or malignant findings. These findings are benign and concordant with the imaging findings. Annual screening mammography is recommended, in accordance with the [place] breast cancer screening guidelines. The patient was notified of the biopsy results and recommendation by Roya Willis, MSN, ACNS-BC of the [facility] on 04/13/2014. Requested By: Dictated By: LE HAMMONDS on Apr 09 2014 2:37P This document has been electronically signed by: JACQUI LLOYD M.D. on Apr 09 2014 3:01P on Apr 16 2014 11:50A This Addendum has been electronically signed by: JACQUI LLOYD M.D. on Apr 16 2014 1:48P us Historical Provider IMG MAMMO PROCEDURES Tahira l Result * Surgical pathology (04/09/2014) Narrative 04/09/2014 Ordered by an unspecified provider. us Historical Provider LAB PATHOLOGY ORDERABLES Final Result documented in this encounter Visit Diagnoses Diagnosis Hypertrophy of breast Fibrosclerosis of breast documented in this encounter Care Teams Payroll Consultant Relationship Specialty [place] [id number] [address] PCP - General 09/15/12 08/19/14 documented as of this encounter
--- OUTSIDE RECORDS SUMMARY | 2024-08-09 23:39 | XMS_ITS | Encounter Summary ---
Author Organization [facility] Facility Care Team Providers Care Rack Production Worker Name Role Phone Kelly Olson NP Primary Care Provider +1- [phone] Encounter Details Date Type Department Care Team (Late st Contact Info) Description 02/24/2013 - 02/24/2013 11:59 PM CDT Hospital Encounter [facility] TARAHCONYesy Jha MD [address] [place] [address] Cramp of limb Social History Tobacco Use Types Packs/Day Years Used Date Smoking Tobacco: Never Assessed Comments Unknown Sex and Gender Information Value Date Recorded Sex Assigned at Not on file 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 Gender Identity Not on file Sexual Orientation [...] Diagnosis Comments DISCHARGE LABORATORY CUMULATIVE REPORT Routine 02/25/2013 9:08 AM CDT SERUM THYROID-STIMULATING HORMONE (TSH) Routine 02/24/2013 3:06 PM CDT SERUM MAGNESIUM Routine 02/24/2013 3:06 PM CDT SERUM GLUCOSE Routine 02/24/2013 3:06 PM CDT SERUM CREATINE KINASE (CK) Routine 02/24/2013 3:06 PM CDT SERUM 25-HYDROXYCHOLECALCIFE ROL (VITAMIN D) Routine 02/24/2013 3:06 PM CDT PLASMA BASIC METABOLIC PANEL Routine 02/24/2013 3:06 PM CDT BLOOD ERYTHROCYTE SEDIMENTATION RATE (ESR) Routine 02/24/2013 3:06 PM CDT documented in this encounter Results * Discharge Laboratory Cumulative Report (02/25/2013 9:08 AM CDT) 02/25/2013 9:08 AM CDT Narrative HISTORICAL RESULTS - 02/25/2013 9:08 AM CDT ? [facility] ? Department of Laboratories ?[facility] [address] ?[facility] ?[address] ?[place] [address] Patient Name: ? DEEJAY ALFORD Med Rec Number: ?? [id number] Date of : ?1975 Gender/Age: ? Female 38 years Doctor: ? Yesy Haro M.D. Report Date/Time: 02/25/2013 09:08 ?* Abnormal ??C Critical ??f Footnote ??^ Corrected ??L Low ??H High ?i Interp Data ??@ Reference Lab ?Chart Type: Cumulative ? CHEMISTRY ? Standard Blood Chemistry ?02/24/2013 ?15:06:00 Test ?Units ?Reference Sodium ?139 ? mmol/L ?? 135-145 Plasma Potassium ??4.0 ? mmol/L ?? 3.3-4.9 Chloride ?103 ? mmol/L ?? 97-110 Total CO2 ? 25 ?mmol/L ?? 22-32 Anion Gap ? 11 ?mmol/L ?? 0-16 BUN ? 13 ?mg/dL ?8-25 Creatinine ?0.61 ?mg/dL ?0.60-1.10 Glucose ? 94 ?mg/dL ?65-199 Magnesium ? 2.3 ? mg/dL ?1.4-2.5 Total Calcium ? 9.7 ? mg/dL ?8.6-10.3 Total CK ?178 ??H ?Units/L ??20-170 ? Hormones ? 02/24/2013 ? 15:06:00 Test ? Units ? Reference TSH ([place]) i ??1.22 ?mcIUnit/mL ??0.35-5.50 02/24/2013 15:06:00 TSH ([place]): Interpretive Data Hyperthyroid: ??<0.1 mcIUnit/mL Hypothyroid: ??>12.0 mcIUnit/mL Current interpretive data was last revised on 00. ?Other Chemistry ?02/24/2013 ?15:06:00 Test ?Units ??Reference 25 Hydroxy Vitamin D ??26 ??L ? ng/mL ??30-100 ?HEMATOLOGY ?02/24/2013 ?15:06:00 Test ?Units ??Reference ESR ?? 13 ?mm/H ?? 0-25 us Historical Provider LAB BLOOD ORDERABLES Tahira l Result Performing Organization Address [facility] de Phone Number HISTORICAL RESULTS * Serum thyroid-stimulating hormone (TSH) (02/24/2013 3:06 PM CDT) TSH 1.22 0.35 - 5.50 mcIUnits/m l HISTORICAL RESULTS Comment: Interpretive Data Hyperthyroid: ??<0.1 mcIUnit/mL Hypothyroid: ??>12.0 mcIUnit/mL Current interpretive data was last revised on 00. Serum 02/24/2013 3:06 PM CDT us Yesy Haro MD LAB BLOOD ORDERABLES Fin al Result Performing Organization Address [facility] de Phone Number HISTORICAL RESULTS * (ABNORMAL) Serum creatine kinase (CK) (02/24/2013 3:06 PM CDT) CK 178(H) 20 - 170 Units/L HISTORICAL RESULTS Serum 02/24/2013 3:06 PM CDT Yesy Haro MD LAB BLOOD ORDERABLES Fin al Result Performing Organization Address [facility] de Phone Number HISTORICAL RESULTS * (ABNORMAL) Serum 25-hydroxycholecalciferol (vitamin D) (02/24/2013 3:06 PM CDT) 25-OH Vit D 26(L) 30 - 100 ng/ml HISTORICAL RESULTS Serum 02/24/2013 3:06 PM CDT Yesy Haro MD LAB BLOOD ORDERABLES Fin al Result Performing Organization Address [facility] de Phone Number HISTORICAL RESULTS * Plasma basic metabolic panel (02/24/2013 3:06 PM CDT) Pathologist [facility] Sodium 139 135 - 145 mmol/L HISTORICAL RESULTS K, pl 4.0 3.3 - 4.9 mmol/L HISTORICAL RESULTS Chloride 103 97 - 110 mmol/L HISTORICAL RESULTS CO2 25 22 - 32 mmol/L HISTORICAL RESULTS A. gap 11 0 - 16 mmol/L HISTORICAL RESULTS BUN 13 8 - 25 mg/dl HISTORICAL RESULTS Creatinine 0.61 0.60 - 1.10 mg/dl HISTORICAL RESULTS Calcium 9.7 8.6 - 10.3 mg/dl HISTORICAL RESULTS Plasma 02/24/2013 3:06 PM CDT Yesy Haro MD LAB BLOOD ORDERABLES Fin al Result Performing Organization Address [facility] Co de Phone Number HISTORICAL RESULTS * Serum magnesium (02/24/2013 3:06 PM CDT) Pathologist [facility] Magnesium 2.3 1.4 - 2.5 mg/dl HISTORICAL RESULTS Serum 02/24/2013 3:06 PM CDT Yesy Haro MD LAB BLOOD ORDERABLES Fin al Result Performing Organization Address [facility] de Phone Number HISTORICAL RESULTS * Serum glucose (02/24/2013 3:06 PM CDT) Glucose 94 65 - 199 mg/dl HISTORICAL RESULTS Serum 02/24/2013 3:06 PM CDT Yesy Haro MD LAB BLOOD ORDERABLES Fin al Result Performing Organization Address [facility] de Phone Number HISTORICAL RESULTS * Blood erythrocyte sedimentation rate (ESR) (02/24/2013 3:06 PM CDT) Erythrocyte sedimentation rate 13.0 0.0 - 25.0 mm/hr HISTORICAL RESULTS Blood specimen (specimen) 02/24/2013 3:06 PM CDT Yesy Haro MD LAB BLOOD ORDERABLES Fin al Result Performing Organization Address [facility] de Phone Number HISTORICAL RESULTS documented in this encounter Visit Diagnoses Diagnosis Cramp of limb documented in this encounter Care Teams Rack Production Worker Relationship Specialty [place] [address] [address] PCP - General 09/15/12 08/19/14 documented as of this encounter
--- OUTSIDE RECORDS SUMMARY | 2024-08-09 23:39 | XMS_ITS | Encounter Summary ---
Author Organization [facility] Facility Care Team Providers Care Grades 9 Thru 12 Visiting Teacher Name Role Phone Kelly Olson NP Primary Care Provider +1- [phone] Encounter Details Date Type Department Care Team (Late st Contact Info) Description 04/03/2014 - 04/03/2014 11:59 PM CDT Hospital Encounter [facility] Kelly Irizarry MD [address] [facility] [id number] [place], [place] [id number] Other breast disorders Social History Tobacco Use Types Packs/Day Years Used Date Smoking Tobacco: Never Alcohol Use Standard Drinks/Week Comments Yes 0 (1 standard drink = 0.6 oz pur e alcohol) Comments Unknown Sex and Gender Information Value Date Recorded Sex Assigned at Not on file 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 LE HAMMONDS, FINAL REPORT The radiology attending physician has personally reviewed this study, and has reviewed and/or edited this written report and agrees with it. ACC# ??Date Time ??Exam [id number] Apr 03, 2014 09:12:00 [facility] EM[facility] [id number] Sono Breast (Unilateral) L EXAMINATION: ?? LEFT BREAST SONOGRAM HISTORY: ??Recent diagnostic mammogram performed at an outside institution on 03/28/2014 revealed a developing asymmetry in the upper outer left breast. Further evaluation with sonography is requested. FINDINGS: Directed sonogram of the upper outer quadrant of the left breast was performed. ??No focal abnormal solid or cystic lesion is identified in the vicinity of the mammographic finding of concern. IMPRESSION: ?? No specific sonographic correlate is identified for the finding of concern on recent mammogram. Given the developing asymmetry in the upper-outer left breast, stereotactic guided left breast biopsy is recommended. OVERALL FINAL ASSESSMENT: BI-RADS Category 4B: Suspicious abnormality on mammography. Moderate suspicion for malignancy. The above findings and recommendations were discussed with the patient at the conclusion of the examination and were subsequently telephoned to the office of the referring physician, Dr. Kelly Irizarry, by Dr. Le Hammonds on 04/03/2014 at 10:15 a.m.. ??The patient has been scheduled to return to the [facility] for a stereotactic-guided core needle biopsy of the left breast on WednesdayApril 09 at 12:30 p.m.. Requested By: Dictated By: ?? LE HAMMONDS, ?? on Apr ??2013 10:27A This document has been electronically signed by: BHAVESH COOK M.D. on Apr ??2013 11:10A Procedure Note Provider, MD Anais - 11/28/2016 BHAVESH COOK M.D. LE HAMMONDS, FINAL REPORT The radiology attending physician has personally reviewed this study, and has reviewed and/or edited this written report and agrees with it. [facility]# Date Time Exam [id number] Apr 03, 2014 09:12:00 [facility] EM[facility] [id number] Sono Breast (Unilateral) L EXAMINATION: LEFT BREAST SONOGRAM HISTORY: Recent diagnostic mammogram performed at an outside institution on 03/28/2014 revealed a developing asymmetry in the upper outer left breast. Further evaluation with sonography is requested. FINDINGS: Directed sonogram of the upper outer quadrant of the left breast was performed. No focal abnormal solid or cystic lesion is identified in the vicinity of the mammographic finding of concern. IMPRESSION: No specific sonographic correlate is identified for the finding of concern on recent mammogram. Given the developing asymmetry in the upper-outer left breast, stereotactic guided left breast biopsy is recommended. OVERALL FINAL ASSESSMENT: BI-RADS Category 4B: Suspicious abnormality on mammography. Moderate suspicion for malignancy. The above findings and recommendations were discussed with the patient at the conclusion of the examination and were subsequently telephoned to the office of the referring physician, Dr. Kelly Irizarry, by Dr. Le Hammonds on 04/03/2014 at 10:15 a.m.. The patient has been scheduled to return to the [facility] for a stereotactic-guided core needle biopsy of the left breast on WednesdayApril 09 at 12:30 p.m.. Requested By: Dictated By: LE HAMMONDS on Apr 03 2014 10:27A This document has been electronically signed by: BHAVESH COOK M.D. on Apr 03 2014 11:10A us Historical Provider MD MCMANUS US PROCEDURES Final R esult documented in this encounter Visit Diagnoses Diagnosis Other breast disorders documented in this encounter Care Teams Grades 9 Thru 12 Visiting Teacher Relationship Specialty [place] [address] [address] PCP - General 09/15/12 08/19/14 documented as of this encounter
--- OUTSIDE RECORDS SUMMARY | 2024-08-09 23:39 | XMS_ITS | Encounter Summary ---
Author Organization [facility] Care Team Providers Care Cargo And Container Inspector Name Role Phone Kelly Olson NP Primary Care Provider +1- [phone] Encounter Details Date Type Department Care Team (Late st Contact Info) Description 03/17/2012 - 03/17/2012 11:59 PM T Hospital Encounter [facility] Tonny Zepeda MD [address] [facility] [address] [place] [address] Benign neoplasm of eyelid; Benign neoplasm of skin of other and unspecified parts of face Social History Tobacco Use Types Packs/Day Years Used Date Smoking Tobacco: Never Assessed Comments Unknown Sex and Gender Information Value Date Recorded Sex Assigned at Not on file 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 Gender Identity Not on file Sexual Orientation Not on file documented as of this encounter Medications at Time of Discharge levothyroxine (SYNTHROID, LEVOTHROID) 150 mcg tablet TAKE 1 TABLET BY MOUTH EVERY DAY 90 2 04/28/2011 03/26/2017 documented as of this encounter Plan of Treatment Not on file documented as of this encounter Visit Diagnoses Diagnosis 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
--- OUTSIDE RECORDS SUMMARY | 2024-08-09 23:39 | XMS_ITS | Encounter Summary ---
Author Organization [facility] Facility Care Team Providers Care Electrical Equipment Tester Name Role Phone Kelly Olson NP Primary Care Provider +1- [phone] Encounter Details Date Type Department Care Team (Late st Contact Info) Description 05/09/2013 - 05/09/2013 11:59 PM CDT Hospital Encounter [facility] Yesy Haro MD [address] [place] [address] Antibody response examination Social History Tobacco Use Types Packs/Day Years Used Date Smoking Tobacco: Never Alcohol Use Standard Drinks/Week Comments Yes 0 (1 standard drink = 0.6 oz pur e alcohol) Comments Unknown Sex and Gender Information Value Date Recorded Sex Assigned at Not on file 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 [facility] ? Department of Laboratories ?[facility] [address] ?[facility] ?Outpatient ?Physician Patient Name: ? ROCÍODEEJAY Med Rec Number: ?? [id number] Date of : ?1975 Gender/Age: ? Female 38 years Doctor: ? Yesy Haro M.D. Report Date/Time: 05/10/2013 17:11 ?* Abnormal ??C Critical ??f Footnote ??^ Corrected ??L Low ??H High ?i Interp Data ??@ Reference Lab ?Chart Type: Cumulative ? SEROLOGY ?05/09/2013 ?15:55:00 Test ? Units ??Reference Rubeola Ab ??Positive ??* ? Negative us Historical Provider LAB BLOOD ORDERABLES Tahira l Result Performing Organization Address [facility] de Phone Number HISTORICAL RESULTS * (ABNORMAL) Serum Rubeola ab, IgG (05/09/2013 3:55 PM CDT) Rubeola ab, IgG Positive(A ) Negative HISTORICAL RESULTS Serum 05/09/2013 3:55 PM CDT Yesy Haro MD LAB BLOOD ORDERABLES Fin al Result Performing Organization Address [facility] de Phone Number HISTORICAL RESULTS documented in this encounter Visit Diagnoses Diagnosis Antibody response examination documented in this encounter Care Teams Electrical Equipment Tester Relationship Specialty [place] [address] [address] PCP - General 09/15/12 08/19/14 documented as of this encounter
--- OUTSIDE RECORDS SUMMARY | 2024-08-09 23:39 | XMS_ITS | Encounter Summary ---
Author Organization [facility] Facility Care Team Providers Care Portfolio Lead Name Role Phone Kelly Olson NP Primary Care Provider [phone]- [phone] Encounter Details Date Type Department Care Team (Late st Contact Info) Description 05/31/2013 9:13 AM CDT - 06/02/2013 5:43 PM CDT Hospital Encounter [facility] Social History Tobacco Use Types Packs/Day Years Used Date Smoking Tobacco: Never Alcohol Use Standard Drinks/Week Comments Yes 0 (1 standard drink = 0.6 oz pur e alcohol) Comments Unknown Sex and Gender Information Value Date Recorded Sex Assigned at Not on file 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 Dictating: Kendra Yee M.D. ADMISSION HISTORY PHYSICAL ADMISSION DIAGNOSIS (ES): Back pain. CHIEF COMPLAINT: Back pain. HISTORY OF PRESENT ILLNESS: Ms. Alford is a 38-year-old female with a history of hypothyroidism as well as a known L4-L5 disc herniation, followed by Dr. Buchanan with the Physical Medicine and Rehabilitation Service, who presents to the emergency room on 05/30/13 with a chief complaint of increased back pain. The patient reports that she has been experiencing back pain since 12/12. This back pain was initially mild; however, has been worsening in the subsequent months. In March, the patient went to Dr. Buchanan for evaluation at which point her L4-L5 disc herniation was diagnosed. Since November, she has experienced 4/10 pain at baseline with acute episodes of worsening to 9-10/10 pain which happened intermittently. These episodes have occurred more frequently in the past 2-3 weeks when she has been experiencing associated tingling inside of her right leg as well as two discrete episodes of right lower extremity numbness medially on her right calf and foot. The patient does not that, on Wednesday two days prior to admission, she did see a new chiropractor who did some stretching exercises as well as manipulation. She initially felt better immediately following her visit; however, later that evening she became increasingly stiff and awoke on Wednesday with 10/10 pain. In addition, she noted increasing weakness and was requiring crutches in order to ambulate. Because her pain was 10/10, she came into the emergency room for further evaluation. Of note, the patient was attempting to treat her pain at home with Ibuprofen, Meloxicam 15 mg and Tramadol 50 mg every 6-8 hours. This led to only mild improvement in her symptoms. The nature of the pain is sharp and originates in the center of her back before radiating to her right hip. This pain often awakens her from sleep. With the medications previously mentioned, her symptoms usually alleviate within approximately 1 hour to her baseline of 4/10 pain. She has associated back stiffness as well as right quadriceps cramping. Walking used to improve the symptoms; however, recently, walking has made the symptoms worse. She has had significant limitation in her normal activities due to this feeling of pain as well as associated heaviness . She denies any incontinence to urine or stool. She denies any saddle anesthesia. She, otherwise, reports being in good health. In the emergency room, L-spine magnetic resonance imaging was performed which, on initial read, appeared to be unchanged from her prior films. The patient was seen by orthopedic surgery as well as neurosurgery who will discuss the case further before recommending treatment. Her pain was treated with Dilaudid, a total of 3 mg, Lorazepam 1 mg, Diazepam 10 mg, Oxycodone/Acetaminophen 5/325, 4 tablets total, Dexamethasone 6 mg times two, which was used to decrease inflammation. Of note, this was not a specific recommendation of orthopedic surgery or neurosurgery. The patient also received Ketorolac times 60 mg total. She notes some improvement with her pain on these regimens; however, has not been pain free since her admission. Her vitals were stable in the emergency room; pulse 58-72, blood pressure systolic 129-144/ diastolic 60-90, 100% on room air. PAST MEDICAL/SURGICAL HISTORY: 1. Hypothyroidism, treated on Synthroid. 2. She has had two previous sections. 3. She has been evaluated previously for carpal tunnel with abnormal nerve conduction studies performed; however, her symptoms resolved prior to surgery. 4. She has also had episodes of right shoulder bursitis which has subsequently resolved. MEDICATIONS: 1. Ibuprofen as needed. 2. Meloxicam 15 mg 1 tablet daily as needed for pain. 3. Mircette 0.15-0.02/ 0.01 mg p.o. 1 tablet every day for contraception. Of note, the patient is not currently taking this medication. 4. Synthroid 150 mcg 1 tablet every day. 5. Tramadol 50 mg 1 tablet every 6-8 hours as needed for pain. 6. Metaxalone 800 mg 1 tablet three times daily as needed for muscle relaxation. ALLERGIES: The patient has no known drug allergies. FAMILY HISTORY: The patient's father is at the age of 39 of an unspecified cancer. The patient's mother is still alive and has thyroid issues. The patient's sister has squamous cell carcinoma of the eye. The patient's grandmother and grandfather both suffered from cerebrovascular accidents, myocardial infarctions as well as hypertension. 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 She lives in [place], [place] with her two children who are 4 and 6 years old. She is . The patient denies smoking, drinks only socially and has no other toxic habits. REVIEW OF SYSTEMS: The patient's review of systems is negative except for what is mentioned in the history of present illness. PHYSICAL EXAMINATION: Vital Signs: Temperature 36.1, pulse 82, blood pressure 106/61, respiratory rate 18, 94% on room air. Constitutional: The patient is a pleasant female who is resting comfortably in bed. She does experience some pain during her physical examination but is otherwise in no acute distress. HEENT: Normocephalic, atraumatic, pupils 2-3 mm minimally reactive to light, extra ocular movements are intact, moist mucous membranes. Neck: Soft, supple, no lymphadenopathy. Chest: Regular rate and rhythm, normal S1S2, no murmurs, rubs or gallops. Lungs: Clear to auscultation bilaterally. No wheezes, rhonchi or rales. Abdomen: Soft, non-tender, non-distended, normoactive bowel sounds, no organomegaly appreciated. Extremities: No cyanosis, clubbing or edema noted. Neurologic: Extra ocular movements are intact, no diplopia, full facial movement, facial sensation intact to light touch in V1-V3 distribution. The palate elevates symmetric at midline. Sternocleidomastoid strength full. The patient had 5/5 strength in her biceps and triceps, 5/5 strength to wrist flexion, wrist extension, finger flexion, finger extension, finger abduction and finger adduction. Lower extremities - on the right, the patient has 5- strength at hip flexion and hip extension, 5+ at knee flexion and extension, 5+ on dorsiflexion and plantarflexion. Of note, this examination is somewhat limited by strength; however, the patient does appear to have full strength on maximal exertion. The patient has 5+ strength on the left at hip flexion/extension, keen flexion, knee extension, plantar flexion and dorsiflexion. Reflexes 2+ at biceps, triceps, brachioradialis, and symmetric bilaterally; 3+ at patella, symmetric bilaterally with minimal cost reflexes noted; 2+ at Achilles' bilaterally. Babinski mute bilaterally. The patient has intact sensation to light touch on lateral and medial hips. No saddle anesthesia appreciated. Decreased sensation to light touch and pin prick on right medial and lateral calf as well as foot. No tenderness to palpation on right hip. LABORATORY AND X-RAY DATA: No labs were available at the time of this dictation. Imaging: Lumbar spine magnetic resonance imaging - the lumbar spine is in normal anatomic alignment, L4-L5 right paramedian disc extrusion resulting in mild narrowing of the right neural foramen and moderate narrowing of the right lateral recess at this level. ASSESSMENT: Ms. Alford is a 38-year-old female with a known L4-L5 disc herniation, who presents to the emergency room with acute worsening of back pain. PLAN: 1. L4-L5 disc herniation: The orthopedic surgery and neurosurgery consult services were contacted while the patient was in the emergency room and the neurosurgical service felt that no acute surgical intervention is required at this point. We will contact the patient's physical, medicine and rehabilitation physician, Dr. Buchanan, to see whether her outpatient scheduled injection might be able to be pursued while the patient is admitted. We will ask for any further recommendations in the management of her care while she is here. We will treat the patient's pain symptomatically with Hydromorphone 0.5-1 mg intravenous every 4 hours as needed for pain as well as Oxycodone 5-10 mg every 4 hours as needed. Our goal will be to transition the patient to p.o. pain medications prior to her discharge. We will place a physical therapy consult. The patient received crutches in the emergency room. We will ask physical therapy for any recommendations and exercises that she might be able to do to regain strength as well as mobility. 2. Hypothyroidism: We will continue the patient on her home dose of Synthroid 150 mcg. 3. Fluids/electrolytes/nutrition: We will place the patient on a regular diet with activity as tolerated. 4. Prophylaxis: We will start the patient on subcutaneous Heparin 5,000 three times daily for deep venous thrombosis prophylaxis. 5. Code status: The patient is FULL CODE. Kendra Yee M.D. Electronically Signed By Jeffry Javed M.D. 05/31/2013 02:02 P Jeffry Javed M.D. EWS/pxv #[id number] Editing MT: TD: 05/31/2013 11:48:00 cc: Ana Sterling M.D. documented in this encounter Consult Notes * Provider, MD Anais - 05/30/2013 12:00 AM CDT Patient: Jaz Alford Reg No: [id number] [facility] #: [id number] Admit Dt.: 05/30/2013 : 1975 Room No: [id number] Attending: Medicine Medicine Consulting: Gold Burkett M.D. Dictating: Jignesh Butts M.D. Service Dt: 05/30/2013 CONSULTATION REPORT REASON FOR CONSULTATION: L4-5 disk. BRIEF HISTORY: History of present illness: The patient is a 38-year-old female with a history of hypothyroidism and a known L4-5 disk being followed by Dr. Buchanan with Physical Medicine and Rehabilitation who presents with increasing back pain. The patient reports that she has had back pain since November, that acutely got worse in March when the L4-5 disk was diagnosed. The patient reports some numbness to her feet with no bowel or bladder symptoms. The patient does report she is scheduled to get the lumbar spine injection with Dr. Buchanan on Wednesday. The patient does state that over the last three days, she has had a right leg, foot numbness and has been having inability to walk secondary to pain. No weakness. No saddle anesthesia. PAST MEDICAL AND SURGICAL HISTORY: Past medical history is significant for hypothyroidism. Past surgeries: Two sections. ALLERGIES: No known drug allergies. MEDICATIONS: Synthroid and pain medications. FAMILY HISTORY: Lung cancer, hypothyroidism, stroke, myocardial infarction. SOCIAL HISTORY: The patient does not smoke. Does not drink. Does not use illicit drugs. 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 Has two children and one . REVIEW OF SYSTEMS: Review of systems otherwise as per history of present illness. PHYSICAL EXAMINATION: Constitutional / Neurologic: The patient is alert, awake, and oriented times three. Opens eyes. Regards. Follows commands. Face is equal. Tongue is midline. Moves all extremities well 5/5 with no drift. Sensation intact to light touch except diminished in the right lateral thigh, right medial and lateral leg and right foot. No saddle anesthesia. Positive straight leg raise on right to 45 degrees. Toes downgoing bilaterally. +2 left patellar reflex. +2 reflexes throughout. HEENT / Neck: Pupils are equal, round, and reactive to light. Extraocular muscle movements are intact. LABORATORY AND X-RAY DATA: Imaging: No imaging available at this time. IMPRESSION AND RECOMMENDATIONS: The patient is a 38-year-old female with a known L4-5 disk who presents with increasing back pain, neurosurgery consultation for increasing back pain and follow-up for L4-5 disk. RECOMMENDATIONS: 1. Recommend lumbar spine magnetic resonance imaging. 2. Will discuss further management with staff. Jignesh Butts M.D. Electronically Signed By Gold Burkett M.D. 06/04/2013 08:37 A Ana Ortiz/lei #[id number] Editing MT: TD: 05/31/2013 07:38:00 cc: Jignesh Butts M.D. Medicine Medicine Gold Burkett M.D. documented in this encounter Miscellaneous Notes * Op Note - Provider, MD Anais - 06/01/2013 12:00 AM CDT Patient: Jaz Alford Reg No: [id number] [facility] #: [id number] Admit Dt.: 05/31/2013 : 1975 Pt Type: 100 Room No: [id number] Attending: Gold Burkett M.D. Surgeon: Gold Burkett M.D. Dictating: Gold Burkett M.D. 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 ANESTHESIA: GENERAL ENDOTRACHEAL ANESTHESIA. PREOPERATIVE DIAGNOSIS (ES): Right L5 radiculopathy secondary to an L4-5 herniated disk. POSTOPERATIVE DIAGNOSIS (ES): Right L5 radiculopathy secondary to an L4-5 herniated disk. NAME OF OPERATION: 1. Right L4-5 partial hemilaminectomy and removal of an underlying herniated disk. 2. Use of intraoperative microscope. INDICATIONS FOR PROCEDURE: This is a 38-year-old female admitted to the medical service on 05/31/2013 with a history of intractable low back and right radicular leg pain. The patient reports a history of pain in her lower back over the past few months. Her symptoms worsened and she developed radiating pain extending from her right hip down the back of her thigh and lateral calf into her heel. There was associated numbness in her right foot. The pain became increasingly severe to the point the patient was seen in the emergency room yesterday. She did not respond to treatment with analgesics and was admitted to the medical service for further pain control. We were consulted to see the patient while she was in the emergency room and following her hospitalization. The patient had an magnetic resonance imaging of her lumbar spine done 05/30/2013 that shows evidence of a right L4-5 herniated disk asymmetric on the right side. There was encroachment of the right lateral recess at that level. The patient's examination was remarkable for severe right radicular leg pain. The patient could not ambulate without pain. She had mild weakness in her right foot on dorsiflexion and decreased sensation over the dorsum of her foot. Straight leg raising was positive on the right side at about 20 to 30 degrees. The patient was told of treatment options including continued non surgical management, treatment with nerve root injection or consideration of surgery, the rationale for going ahead with surgery for removal of herniated disk was discussed. After discussion of treatment options with the patient she wished to go ahead with surgery as recommended. DESCRIPTION OF PROCEDURE: The patient was taken to the operating room where general anesthesia was administered. She was placed on the operating room table in a prone position on the OSI bed with the use of the Vito frame. Her back was prepped with Hibiclens, alcohol and Betadine solution. The patient received preoperative antibiotics and appropriate timeout was done. A small incision was made over the L4-5 lumbar space in the midline over the L4-5 level in the midline. The location was verified with use of lateral fluoroscopy. The subcutaneous tissue was sharply divided. Bleeding was controlled with electrocautery. The underlying fascia was then divided with electrocautery and the paraspinal muscles were stripped in a subperiosteal fashion at the L4-5 level. The intralaminar space was identified. A small laminotomy was done removing a portion of the inferior aspect of the L4 lamina and a small portion of the superior aspect of the L5 lamina. The underlying ligamentum flavum was removed with a Cloward rongeur. The underlying epidural fat was then gently retracted. The dura overlying the herniated disk in the right lateral aspect of the spinal canal was tense. The nerve root was tented upward. The operating microscope was brought into use. With microsurgical dissection several adhesions were divided from around the dural edge and the underlying nerve root was gently retracted medially. There was a large underlying herniated disk. The ligament was divided and several large pieces of disk fragments were removed from beneath the nerve root. This decompressed the nerve root nicely. The herniated disk fragments were followed into the intervertebral space at the L4-5 level. With the pituitary rongeur multiple pieces of degenerative disk fragment were removed. A curet was used to try to remove any additional loose pieces of disk material. At this point in time we had removed all of the loose disk fragments and the overlying nerve root was well decompressed. The wound was irrigated thoroughly. Hemostasis was achieved. The laminotomy site was covered with a small fat graft soaked in Depo-Medrol. The paraspinal muscles and fascia were closed with 0-Vicryl suture. The subcutaneous tissue was approximated with a layer of 0-Vicryl sutures and 3-0 Vicryl sutures. Skin edges were approximated with Dermabond glue. The patient was allowed to awaken from anesthesia. She was taken to the recovery room in stable condition. ATTESTATION OF PRESENT STATEMENT: It should be noted that I was present and scrubbed throughout the entire surgical procedure from opening skin incision through closure of the skin incision. Electronically Signed By Gold Burkett M.D. 06/04/2013 10:00 A Ana Ortiz/ricardo #[id number] Editing MT: TD: 06/03/2013 17:00:00 cc: Ana Ortiz M.D. documented in this encounter Plan of Treatment Not on file documented as of this encounter Procedures Procedure Name Priority Date/Time Associated Diagnosis Comments URINE CHORIONIC GONADOTROPIN (HCG) Routine 06/02/2013 6:02 AM CDT DISCHARGE LABORATORY CUMULATIVE REPORT Routine 06/02/2013 12:00 AM CDT URINE CHORIONIC GONADOTROPIN (HCG) Routine 06/01/2013 11:20 AM CDT URINE (AEROBIC) CULTURE, CDR Routine 05/31/2013 7:49 PM CDT URINE MICROSCOPY Routine 05/31/2013 7:49 PM CDT PLASMA PARTIAL THROMBOPLASTIN TIME (PTT) Routine 05/31/2013 7:49 PM CDT URINALYSIS Routine 05/31/2013 7:49 PM CDT BLOOD ABO, RH, INDIRECT AB SCREEN Routine 05/31/2013 7:49 PM CDT CHEST RADIOGRAPHY, FRONTAL (AP), LATERAL Routine 05/31/2013 6:50 PM CDT PLASMA PROTHROMBIN TIME (PT) Routine 05/31/2013 10:51 AM CDT PLASMA PARTIAL THROMBOPLASTIN TIME (PTT) Routine 05/31/2013 10:51 AM CDT PLASMA COMPREHENSIVE METABOLIC PANEL Routine 05/31/2013 10:51 AM CDT BLOOD CELL COUNT (CBC) Routine 3 10:51 AM CDT ELECTROCARDIOGRAPHY (ECG) 05/31/2013 ALL MICROBIOLOGY REPORT SECTION Routine 05/31/2013 12:00 AM CDT MRI LUMBAR SPINE WO CONTRAST Routine 05/30/2013 10:11 PM CDT EMG/NCV 04/14/2013 documented in this encounter Results * Urine chorionic gonadotropin (HCG) (06/02/2013 6:02 AM CDT) HCG, ur Negative HISTORICAL RESULTS Urine 06/02/2013 6:02 AM CDT Sherry Fletcher CARE NURSE RN LAB BLOOD ORDERABLES Final Result HISTORICAL RESULTS * Discharge Laboratory Cumulative Report (06/02/2013 12:00 AM CDT) 06/02/2013 Narrative HISTORICAL RESULTS - 06/02/2013 7:18 PM CDT ?[facility] ?Department of Laboratories ? [address] [facility] [place] ? [place], [place] [address] Patient Name: ??JAZ ALFORD Rec Number: [id number] Fin Number: ?[id number] Date: ?1975 Sex/Age: ? Female 38 years Admit Date: ?05/31/2013 Discharge Date: 06/02/2013 Doctor: ?[facility] , [address] Facility: ?[facility] Location: ?[id number] Chart Printed: 06/02/2013 19:18 ?? * Abnormal ?? C Critical ?? f Footnote ?? ^ Corrected ?? L Low ?? H High ? i Interp Data ?? @ Reference Lab ?Chart Type:Cumulative ? SELECTED ELECTROLYTES ?Test: Sodium ? Plasma Potassium ??Chloride ? Reference: [135-145] ??[3.3-4.9] ? [97-110] ? Units: mmol/L ? mmol/L ?mmol/L 05/31/2013 ?? 10:51:00 ?? 138 ?4.0 ? 104 ?Test: Total CO2 ??Anion Gap ? Reference: [22-32] ?[0-16] ? Units: mmol/L ? mmol/L 05/31/2013 ?? 10:51:00 ?? 23 ? 11 ? STANDARD BLOOD CHEMISTRY ?Test: BUN ? Creatinine ?? Total Bilirubin ??Glucose ? Reference: [8-25] ??[0.60-1.10] ??[0.3-1.1] ?[70- 199] ? Units: mg/dL ?? mg/dL ?mg/dL ?mg/dL 05/31/2013 ?? 10:51:00 ?? 10 ?0.60 ? 0.3 ?111 ?Test: Total Calcium ??Plasma Total Protein ??Albumin ? Reference: [8.6-10.3] ? [6.5-8.5] ? [3.6- 5.0] ? Units: mg/dL ?g/dL ?g/dL 05/31/2013 ?? 10:51:00 ?? 10.0 ? 8.2 ? 4.8 ?ENZYMES ?Test: Alkaline Phosphatase ??ALT ?AST ? Reference: [38-126] ?[7-53] ?? [11-47] ? Units: Units/L ? Units/L ??Units/L 05/31/2013 ?? 10:51:00 ?? 55 ?27 ? 27 ?URINE HORMONES ?Test: Ur hCG, Qual ??Ur hCG, Qual ? Reference: ? Units: 06/02/2013 ?? 06:02:00 ?? Negative ?Negative 06/01/2013 ?? 11:20:00 ?? Negative ?Negative ?URINALYSIS ?Macroscopic ?Test: Color ? Clarity ??Specific [place] ? Reference: [Yellow] ?[Clear] ??[1.003-1.030] ? Units: 05/31/2013 ?? 19:49:00 ?? Light-Yellow ??Clear ?1.005 ?Test: pH ? Albumin ?? Glucose ? Ketones ? Reference: [5.0-8.0] ??[Trace] ?? [Negative] ??[Negative] ? Units: 05/31/2013 ?? 19:49:00 ?? 5.5 ?Negative ??Negative ?Negative ?Test: Bilirubin ?? Blood ? Urobilinogen ? Reference: [Negative] ??[Negative] ??[0.0-2.0] ? Units: ? mg/dL 05/31/2013 ?? 19:49:00 ?? Negative ?Negative ?<2.0 ?Test: Nitrite ? Leuk Esterase ? Reference: [Negative] ??[Negative] ? Units: 05/31/2013 ?? 19:49:00 ?? Negative ?Negative ?Microscopic ?Test: Epithl Squam ??Mucus Thrds ??RBC Ur ??WBC Ur ? Reference: ?[0-3] ?? [0-5] ? Units: /LPF ?/HPF ? /HPF ?/HPF 05/31/2013 ?? 19:49:00 ?? >20 ? Small ?0 ? 0 ?Test: Bacteria Ur ??Epithl Renl Ur ??Hyaline Cast ? Reference: [Trace] ?[0-0] ? [0-0] ? Units: ?/HPF ?/LPF 05/31/2013 ?? 19:49:00 ?? Negative ? 0 ? 1 ??H ? COMPLETE BLOOD COUNT ?Test: WBC ?RBC ?Hgb ? Reference: [3.8-9.8] ??[3.90-5.00] ??[12.1-15.1] ? Units: K/cumm ? M/cumm ? g/dL 05/31/2013 ?? 10:51:00 ?? 12.8 ??H ?4.55 ? 13.1 ?Test: Hct ?Platelet Ct ??MCV ? Reference: [36.1-44.3] ??[140-440] ?[80.0-97.6] ? Units: % ?K/cumm ? fL 05/31/2013 ?? 10:51:00 ?? 39.9 ? 337 ?87.7 ?Test: MCH ?MCHC ? RDW ? Reference: [26.7-33.7] ??[32.7-35.5] ??[11.8-14.6] ? Units: pg ? g/dL ? % 05/31/2013 ?? 10:51:00 ?? 28.7 ? 32.8 ? 14.0 ?Test: MPV ? Reference: [6.8-10.4] ? Units: fL 05/31/2013 ?? 10:51:00 ?? 7.5 ? AUTOMATED WHITE CELL DIFFERENTIAL ?Test: Neut Pct Auto ??Lymph Pct Auto ??Whitfield Pct Auto ? Reference: [38.7-74.5] ?[20.0-54.3] ? [4.3-13.5] ? Units: % ?% ? % 05/31/2013 ?? 10:51:00 ?? 91.2 ??H ?6.9 ??L ?1.8 ??L ?Test: Eos Pct Auto ??Baso Pct Auto ??Neut Abs Auto ? Reference: [0.0-6.0] ? [0.0-3.0] ?[1.8-6.6] ? Units: % ? % ?K/cumm 05/31/2013 ?? 10:51:00 ?? 0.0 ? 0.1 ?11.7 ??H ?Test: Lymph Abs Auto ??Whitfield Abs Auto ??Eos Abs Auto ? Reference: [1.2-3.3] ? [0.2-1.2] ?[0.0-0.5] ? Units: K/cumm ?K/cumm ? K/cumm 05/31/2013 ?? 10:51:00 ?? 0.9 ??L ?0.2 ?0.0 ?Test: Baso Abs Auto ? Reference: [0.0-0.2] ? Units: K/cumm 05/31/2013 ?? 10:51:00 ?? 0.0 ? HEMOSTASIS AND THROMBOSIS ?Routine Coagulation Studies ?Test: PT ?INR i ?aPTT ? Reference: [9.0-12.0] ??[0.90-1.20] ??[25.0-37.0] ? Units: sec ?sec 05/31/2013 ?? 19:49:00 ?30.0 05/31/2013 ?? 10:51:00 ?? 10.2 ?0.97 ? 30.2 05/31/2013 10:51:00 INR: Interpretive Data Inpatient therapeutic ranges* Atrial fibrillation ?2.0-3.0 INR Venous thrombo-embolism ?2.0-3.0 INR Bioprosthetic heart valve ?* Mechanical heart valve, bileaflet or tilting disk,aortic position ? 2.0-3.0 INR All other,or bileaflet or tilting disk, in mitral position ? 2.5-3.5 INR *See the pharmacy resource directory (PHRED) for an updated copy of the Tool Book at [email or web address] Current Interpretive Data was last revised 2011. 05/31/2013 10:51:00 aPTT: Interpretive Data Therapeutic heparin range:60.0 - 94.0 sec based on correlation with therapeutic heparin activity range of 0.3 -0.7 Units/mL. Current interpretive data was last revised on 2011. ? TRANSFUSION MEDICINE ?Test: Indirect Nishi. ??ABO/Rh Pat Interp ? Reference: ? Units: 05/31/2013 ?? 19:49:00 ?? Negative ?A Positive ? MICROBIOLOGY - ALL TESTS ? PROCEDURE: Urine Culture ?SOURCE: Urine, bladder COLLECTED: 05/31/13 ??1949 ? BODY SITE: STARTED: 05/31/13 ??2009 FREE TEXT SOURCE: FINAL REPORT REPORTED: 06/02/13 1448 Insignificant growth based on current clinical standards. ? MICROBIOLOGY - URINE ? PROCEDURE: Urine Culture ?SOURCE: Urine, bladder COLLECTED: 05/31/13 ??1949 ? BODY SITE: STARTED: 05/31/13 ??2009 FREE TEXT SOURCE: FINAL REPORT REPORTED: 06/02/13 1448 Insignificant growth based on current clinical standards. ? CANCELLED TESTS Date ?Time ?Test ?Cancel Reason 05/31/2013 ??21:00:00 ??Basic Met Plas 05/31/2013 ??21:00:00 ??CBC 05/31/2013 ??21:00:00 ??aPTT 05/31/2013 ??21:00:00 ??PT Historical Provider LAB BLOOD ORDERABLES Tahira l Result Performing Organization Address [facility] de Phone Number HISTORICAL RESULTS * Urine chorionic gonadotropin (HCG) (06/01/2013 11:20 AM CDT) HCG, ur Negative HISTORICAL RESULTS Urine 06/01/2013 11:2 0 AM CDT Jeffry Javed MD LAB BLOOD ORDERABLES Tahira l Result Performing Organization Address [facility] de Phone Number HISTORICAL RESULTS * Urine (aerobic) culture (05/31/2013 7:49 PM CDT) Urine, bladder (Unknown) 05/31/2013 7:49 PM CDT 05/31/2013 8:10 PM CDT Narrative HISTORICAL RESULTS - 06/02/2013 2:48 PM CDT Insignificant growth based on current clinical standards. Historical Provider LAB MICROBIOLOGY - GENERA L ORDERABLES Final Result Performing Organization Address [facility] de Phone Number HISTORICAL RESULTS * Urinalysis (05/31/2013 7:49 PM CDT) Color, ur Light-Yellow Yellow HISTORI BOONE RESULTS Clarity, ur Clear Clear HISTORIC AL RESULTS Specific gravity, ur [...] Negative HISTORI BOONE RESULTS Leukocyte esterase, ur Negative Negative HISTORICAL RESULTS Urine 05/31/2013 7:49 PM CDT Usama Hill MD LAB BLOOD ORDERABLES F inal Result Performing Organization Address [facility] de Phone Number HISTORICAL RESULTS * (ABNORMAL) Urine microscopy (05/31/2013 7:49 PM CDT) RBC, ur 0 0 - 3 /hpf HISTORICA L RESULTS WBC, ur 0 0 - 5 /hpf HISTORICA L RESULTS Bacteria, ur Negative Trace HISTORI BOONE RESULTS Epithelial cells, renal, ur 0 0 - 0 /hpf HISTORICAL RESULTS Epithelial cells, squamous, ur >20 /lpf HISTORICAL RESULTS Mucus, ur Small /hpf HISTORICAL RESULTS Hyaline casts 1(H) 0 - 0 /lpf HISTO RICAL RESULTS Urine 05/31/2013 7:49 PM CDT Usama Hill MD LAB BLOOD ORDERABLES F inal Result Performing Organization Address [facility] de Phone Number HISTORICAL RESULTS * Plasma partial thromboplastin time (PTT) (05/31/2013 7:49 PM CDT) APTT 30.0 25.0 - 37.0 seconds HISTORICAL RESULTS Comment: Interpretive Data Therapeutic heparin range:60.0 - 94.0 sec based on correlation with therapeutic heparin activity range of 0.3 -0.7 Units/mL. Current interpretive data was last revised on 2011. Plasma 05/31/2013 7:49 PM CDT Usama Hill MD LAB BLOOD ORDERABLES F inal Result Performing Organization Address [facility] de Phone Number HISTORICAL RESULTS * Blood ABO, Rh, indirect ab screen (05/31/2013 7:49 PM CDT) ABO, Rho(D) A Positive HISTORI BOONE RESULTS Nishi, indirect Negative HISTORICAL RESULTS Blood specimen (specimen) 05/31/2013 7:49 PM CDT Usama Hill MD LAB BLOOD ORDERABLES F inal Result HISTORICAL RESULTS * CHEST RADIOGRAPHY, FRONTAL (AP), LATERAL (05/31/2013 6:50 PM CDT) Anatomical Region Laterality Modality N/A Radiographic Leti ging 05/31/2013 6:50 PM CDT Narrative 06/01/2013 8:00 AM CDT BRIDGETT BANKS M.D. FINAL REPORT ACC# ??Date Time ??Exam [id number] May 31, 2013 18:50:00 11922 Chest 2 views Front&Lat EXAMINATION: ?? PA and Lateral Chest IMPRESSION: ?? The heart and mediastinal contours are normal. There are no masses or infiltrates. There are no pleural effusions and no pneumothoraces. . Requested By: USAMA HILL M.D. Dictated By: ?? BRIDGETT BANKS M.D. ??on Jun 01 2013 ??8:00A This document has been electronically signed by: BRIDGETT BANKS M.D. on Jun 01 2013 ??8:00A Procedure Note Provider, MD Anais - 11/28/2016 BRIDGETT BANKS M.D. FINAL REPORT ACC# Date Time Exam [id number] May 31, 2013 18:50:00 [id number] Chest 2 views Front&Lat EXAMINATION: PA and Lateral Chest IMPRESSION: The heart and mediastinal contours are normal. There are no masses or infiltrates. There are no pleural effusions and no pneumothoraces. . Requested By: USAMA HILL M.D. Dictated By: BRIDGETT BANKS M.D. on Jun 01 2013 8:00A This document has been electronically signed by: BRIDGETT BANKS M.D. on Jun 01 2013 8:00A us Historical Provider MD MCMANUS XR PROCEDURES Final R esult * Plasma comprehensive metabolic panel (05/31/2013 10:51 AM CDT) Sodium 138 135 - 145 mmol/L HISTORICAL RESULTS K, pl 4.0 3.3 - 4.9 mmol/L HISTORICAL RESULTS Chloride 104 97 - 110 mmol/L HISTORICAL RESULTS CO2 23 22 - 32 mmol/L HISTORICAL RESULTS A. gap 11 0 - 16 mmol/L HISTORICAL RESULTS Glucose 111 70 - 199 mg/dl HISTORICAL RESULTS BUN 10 8 - 25 mg/dl HISTORICAL RESULTS Creatinine 0.60 0.60 - 1.10 mg/dl HISTORICAL RESULTS Calcium 10.0 8.6 - 10.3 mg/dl HISTORICAL RESULTS Protein, pl 8.2 6.5 - 8.5 g/dl HISTORICAL RESULTS Alb 4.8 3.6 - 5.0 g/dl HISTORICAL RESULTS Bilirubin 0.3 0.3 - 1.1 mg/dl HISTORICAL RESULTS Alk phos 55 38 - 126 Units/L HISTORICAL RESULTS AST 27 11 - 47 Units/L HISTORICAL RESULTS ALT 27 7 - 53 Units/L HISTORICAL RESULTS Plasma 05/31/2013 10:5 1 AM CDT Naheed Jimenez MD LAB BLOOD ORDERABLES Final Result Performing Organization Address City/State/[facility] Co de Phone Number HISTORICAL RESULTS * Plasma partial thromboplastin time (PTT) (05/31/2013 10:51 AM CDT) APTT 30.2 25.0 - 37.0 seconds HISTORICAL RESULTS Comment: Interpretive Data Therapeutic heparin range:60.0 - 94.0 sec based on correlation with therapeutic heparin activity range of 0.3 -0.7 Units/mL. Current interpretive data was last revised on 2011. Plasma 05/31/2013 10:5 1 AM CDT Naheed Jimenez MD LAB BLOOD ORDERABLES Final Result HISTORICAL RESULTS * Plasma prothrombin time (PT) (05/31/2013 10:51 AM CDT) Prothrombin time (PT) 10.2 9.0 - 12.0 seconds HISTORICAL RESULTS INR 0.97 0.90 - 1.20 HISTORIC AL RESULTS Comment: Interpretive Data Inpatient therapeutic ranges* Atrial fibrillation ?2.0-3.0 INR Venous thrombo-embolism ?2.0-3.0 INR Bioprosthetic heart valve ?* Mechanical heart valve, bileaflet or tilting disk,aortic position ? 2.0-3.0 INR All other,or bileaflet or tilting disk, in mitral position ? 2.5-3.5 INR *See the pharmacy resource directory (PHRED) for an updated copy of the Tool Book at [email or web address] Current Interpretive Data was last revised 2011. Plasma 05/31/2013 10:5 1 AM CDT us Naheed Jimenez MD LAB BLOOD ORDERABLES Final Result HISTORICAL RESULTS * (ABNORMAL) Blood cell count (CBC) (05/31/2013 10:51 AM CDT) Pathologist [facility] [place] WBC 12.8(H) 3.8 - 9.8 K/cumm HISTORICAL RESULTS RBC 4.55 3.90 - 5.00 M/cumm HISTORICAL RESULTS Hgb 13.1 12.1 - 15.1 g/dl HISTORICAL RESULTS Hct 39.9 36.1 - 44.3 % HISTORICAL RESULTS MCV 87.7 80.0 - 97.6 fl HISTORICAL RESULTS MCH 28.7 26.7 - 33.7 pg HISTORICAL RESULTS MCHC 32.8 32.7 - 35.5 g/dl HISTORICAL RESULTS Rdw 14.0 11.8 - 14.6 % HISTORICAL RESULTS Platelets 337 140 - 440 K/cumm HISTORICAL RESULTS MPV 7.5 6.8 - 10.4 fl HISTORICAL RESULTS Neutrophils 91.2(H) 38.7 - 74.5 % HISTORICAL RESULTS Lymphocytes 6.9(L) 20.0 - 54.3 % HISTORICAL RESULTS Monos 1.8(L) 4.3 - 13.5 % HISTORICAL RESULTS Eosinophils 0.0 0.0 - 6.0 % HISTORICAL RESULTS Basophils 0.1 0.0 - 3.0 % HISTORICAL RESULTS Neutrophils, abs 11.7(H) 1.8 - 6.6 K/cumm HISTORICAL RESULTS Lymphocytes, abs 0.9(L) 1.2 - 3.3 K/cumm HISTORICAL RESULTS Monocytes, absolute 0.2 0.2 - 1.2 K/cumm HISTORICAL RESULTS Eosinophils, abs 0.0 0.0 - 0.5 K/cumm HISTORICAL RESULTS Basophils, abs 0.0 0.0 - 0.2 K/cumm HISTORICAL RESULTS Blood specimen (specimen) 05/31/2013 10:51 AM CDT us Naheed Jimenez MD LAB BLOOD ORDERABLES Final Result HISTORICAL RESULTS * All Microbiology Report Section (05/31/2013 12:00 AM CDT) 05/31/2013 Narrative HISTORICAL RESULTS - 06/02/2013 4:49 PM CDT ? [facility] ?[address] [facility] [address] ?[place], [place] [address] ? Patient Name: ??ROCÍOPARAM PAULAN Brianne ? Med Rec Number: [id number] ? Fin Number: ?[id number] ? Date: ?1975 ? Sex/Age: ? Female 38 years ? Admit Date: ?05/31/2013 ? Discharge Date: ? Doctor: ?MEDICINE , 1302 ? Facility: ?[facility] ? Location: ?0115 [id number] 01 ?* Abnormal ??A Alert ??f Footnote ??^ Corrected ??L Low ??H High ?i Interp Data ??@ Ref Lab ? Chart Type:Cumulative ?* * * * MICROBIOLOGY - URINE * * * * ?PROCEDURE: Urine Culture ? SOURCE: Urine, bladder ? COLLECTED: 10/30/13 ??1949 ?BODY SITE: ? STARTED: 10/30/13 ??2010 ? FREE TEXT SOURCE: ? FINAL REPORT ? REPORTED: 06/02/13 1448 ? Insignificant growth based on current clinical standards. Historical Provider LAB MICROBIOLOGY - GENERA L ORDERABLES Final Result HISTORICAL RESULTS * ELECTROCARDIOGRAPHY (ECG) (05/31/2013) Narrative 05/31/2013 Ordered by an unspecified provider. Historical Provider ECG ORDERABLES Final Res ult * MRI Lumbar Spine WO Contrast (05/30/2013 10:11 PM CDT) Anatomical Region Laterality Modality Spine N/A Magnetic Resonan ce 05/30/2013 10:1 1 PM CDT Narrative 05/31/2013 10:44 AM CDT REJI SCHOFIELD M.D. KELLY AUGUSTE, FINAL REPORT The radiology attending physician has personally reviewed this study, and has reviewed and/or edited this written report and agrees with it. ACC# ??Date Time ??Exam [id number] May 30, 2013 22:11:00 [id number] MRI Lumbar Spine wo cont EXAMINATION: ?? Lumbar spine magnetic resonance imaging (MRI) without contrast. ? HISTORY: Low back pain. TECHNIQUE: Multiplanar multi-weighted magnetic resonance imaging of the lumbar spine was performed without and with administration of intravenous gadolinium contrast according to the degenerative disc disease protocol. Comparison: None available. FINDINGS: The lumbar spine is in the normal anatomic alignment. Vertebral bodies are of normal height without compression fractures. Modic type II changes are seen at L4-L5. ??The conus medullaris terminates at the level of L1 ?? and the distal spinal cord signal intensity is normal. An annular fissure and disc extrusion are seen at L4-L5. No soft tissue abnormality within the limited views of the abdomen and pelvis is identified.The aorta is normal. L1-L2: The disc is normal in configuration. There is mild facet arthropathy. There is no neural foraminal narrowing. There is no central canal stenosis. L2-L3: The disc is normal in configuration. There is mild facet arthropathy. There is no neural foraminal narrowing. There is no central canal stenosis. L3-L4: The disc is normal in configuration. There is no facet arthropathy. There is no neural foraminal narrowing. There is no central canal stenosis. L4-L5: There is a right paramedian disc extrusion superimposed on circumferential disc bulge. There is no facet arthropathy. There is mild right neural foraminal narrowing as well as moderate narrowing of the right lateral recess at this level. There is no central canal stenosis. L5-S1: The disc is normal in configuration. There is mild facet arthropathy. There is no neural foraminal narrowing. There is no central canal stenosis. IMPRESSION: ?? 1. L4-L5 right paramedian disc extrusion resulting in mild narrowing of the right neural foramen and moderate narrowing of the right lateral recess at this level. A preliminary version of this report was discussed with Sheila ??taking care of the patient at 10:50 p.m. on 05/30/[address] Ramon Campbell, neuroradiology fellow. Requested By: ENRIQUE COLLINS M.D. Dictated By: ?? KELLY AUGUSTE, ?? on May 31 2013 10:29A This document has been electronically signed by: REJI SCHOFIELD M.D. on May 31 2013 10:44A Procedure Note Provider, MD Anais - 11/28/2016 REJI SCHOFIELD M.D. KELLY AUGUSTE, FINAL REPORT The radiology attending physician has personally reviewed this study, and has reviewed and/or edited this written report and agrees with it. ACC# Date Time Exam [id number] May 30, 2013 22:11:00 [id number] MRI Lumbar Spine wo cont EXAMINATION: Lumbar spine magnetic resonance imaging (MRI) without contrast. HISTORY: Low back pain. TECHNIQUE: Multiplanar multi-weighted magnetic resonance imaging of the lumbar spine was performed without and with administration of intravenous gadolinium contrast according to the degenerative disc disease protocol. Comparison: None available. FINDINGS: The lumbar spine is in the normal anatomic alignment. Vertebral bodies are of normal height without compression fractures. Modic type II changes are seen at L4-L5. The conus medullaris terminates at the level of L1 and the distal spinal cord signal intensity is normal. An annular fissure and disc extrusion are seen at L4-L5. No soft tissue abnormality within the limited views of the abdomen and pelvis is identified.The aorta is normal. L1-L2: The disc is normal in configuration. There is mild facet arthropathy. There is no neural foraminal narrowing. There is no central canal stenosis. L2-L3: The disc is normal in configuration. There is mild facet arthropathy. There is no neural foraminal narrowing. There is no central canal stenosis. L3-L4: The disc is normal in configuration. There is no facet arthropathy. There is no neural foraminal narrowing. There is no central canal stenosis. L4-L5: There is a right paramedian disc extrusion superimposed on circumferential disc bulge. There is no facet arthropathy. There is mild right neural foraminal narrowing as well as moderate narrowing of the right lateral recess at this level. There is no central canal stenosis. L5-S1: The disc is normal in configuration. There is mild facet arthropathy. There is no neural foraminal narrowing. There is no central canal stenosis. IMPRESSION: 1. L4-L5 right paramedian disc extrusion resulting in mild narrowing of the right neural foramen and moderate narrowing of the right lateral recess at this level. A preliminary version of this report was discussed with Sheila taking care of the patient at 10:50 p.m. on 05/30/[address] Ramon Campbell, neuroradiology fellow. Requested By: ENRIQUE COLLINS M.D. Dictated By: KELLY AUGUSTE, on May 31 2013 10:29A This document has been electronically signed by: REJI SCHOFIELD M.D. on May 31 2013 10:44A us Historical Provider IMG MRI PROCEDURES Final Result * EMG (04/14/2013) Anatomical Region Laterality Modality Other Narrative 04/14/2013 Ordered by an unspecified provider. us Historical Provider NEUROLOGY ORDERABLES Tahira l Result documented in this encounter Visit Diagnoses Not on filedocumented in this encounter Care Teams Portfolio Lead Relationship Specialty [place] [address] [place] [address] PCP - General 09/15/12 08/19/14 documented as of this encounter
--- OUTSIDE RECORDS SUMMARY | 2024-08-09 23:39 | XMS_ITS | Encounter Summary ---
Author Organization [facility] Facility Care Team Providers Care Assistant Toddler Teacher Name Role Phone Kelly Olson NP Primary Care Provider [phone]- [phone] Encounter Details Date Type Department Care Team (Late st Contact Info) Description 03/30/2014 - 03/30/2014 11:59 PM CDT Hospital Encounter [facility] Kelly Irizarry MD [address] [facility] [address] [facility] [phone] [place] [address] Other breast disorders Social History Tobacco Use Types Packs/Day Years Used Date Smoking Tobacco: Never Alcohol Use Standard Drinks/Week Comments Yes 0 (1 standard drink = 0.6 oz pur e alcohol) Comments Unknown Sex and Gender Information Value Date Recorded Sex Assigned at Not on file 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[employer] Gender Identity Not on file Sexual Orientation Not on file documented as of this encounter Medications at Time of Discharge levothyroxine (SYNTHROID, LEVOTHROID) 150 mcg tablet TAKE 1 TABLET BY MOUTH EVERY DAY 90 2 04/28/2011 03/26/2017 documented as of this encounter Plan of Treatment Not on file documented as of this encounter Procedures Procedure Name Priority Date/Time Associated Diagnosis Comments XR CONSULT OF OUTSIDE FILMS (PEDS ONLY) Routine 03/30/2014 2:52 PM CDT documented in this encounter Results * XR Interpretation Of Outside Films (03/30/2014 2:52 PM CDT) Anatomical Region Laterality Modality N/A Radiographic Leti ging 03/30/2014 2:52 PM CDT Narrative 03/30/2014 3:10 PM CDT LORIN DAVIS M.D. FINAL REPORT ACC# ??Date Time ??Exam [id number] Mar 30, 2014 14:52:00 [facility] [id number] Consult Out Films (read) EXAMINATION: ?? READING OF OUTSIDE IMAGING EXAMINATION - left unilateral diagnostic full-field digital mammogram on 03/28/2004 (4 images) is from [facility] and bilateral full-field digital screening mammogram with tomosynthesis from [facility] dated 02/16/2014 (4 images). DATE OF INTERPRETATION: 03/30/2014 HISTORY: Abnormal mammogram from another institution. Interpretation of the patient's outside mammogram is requested by Dr. Kelly Irizarry. COMPARISON: 06/14/2012 BREAST PARENCHYMAL COMPOSITION: The breasts are almost entirely fatty. FINDINGS: In the interim between 2011 and 2013 the patient developed a focal asymmetry in the upper outer left breast which persisted on spot magnification images. No spiculated masses or accompanying microcalcifications were identified. An outside ultrasound was not performed. Recommendation at the outside facility was for breast MRI. IMPRESSION: ?? Developing asymmetry in the upper outer left breast. This evaluation is incomplete. Recommend ultrasound for further evaluation. If this asymmetry is occult on breast ultrasound, stereotactic core needle biopsy could be performed for diagnosis. NOTE: The findings, conclusions and recommendations within this report do not replace the initial findings, conclusions and recommendations made at the facility where the study was performed based upon the imaging and clinical condition at that time. ??Review of the prior report and correlation with the clinical history are necessary. The provided images may or may not represent the [place] source data set and thus may contain changes which may lower the sensitivity in the second opinion interpretation. Requested By: Dictated By: ?? LORIN DAVIS M.D. ??on Mar 30 2014 ??3:09P This document has been electronically signed by: LORIN DAVIS M.D. on Mar 30 2014 ??3:09P Procedure Note Provider, MD Anais - 11/28/2016 LORIN DAVIS M.D. FINAL REPORT ACC# Date Time Exam [id number] Mar 30, 2014 14:52:00 [facility] [id number] Consult Out Films (read) EXAMINATION: READING OF OUTSIDE IMAGING EXAMINATION - left unilateral diagnostic full-field digital mammogram on 03/28/2004 (4 images) is from [facility] and bilateral full-field digital screening mammogram with tomosynthesis from [facility] dated 02/16/2014 (4 images). DATE OF INTERPRETATION: 03/30/2014 HISTORY: Abnormal mammogram from another institution. Interpretation of the patient's outside mammogram is requested by Dr. Kelly Irizarry. COMPARISON: 06/14/2012 BREAST PARENCHYMAL COMPOSITION: The breasts are almost entirely fatty. FINDINGS: In the interim between 2011 and 2013 the patient developed a focal asymmetry in the upper outer left breast which persisted on spot magnification images. No spiculated masses or accompanying microcalcifications were identified. An outside ultrasound was not performed. Recommendation at the outside facility was for breast MRI. IMPRESSION: Developing asymmetry in the upper outer left breast. This evaluation is incomplete. Recommend ultrasound for further evaluation. If this asymmetry is occult on breast ultrasound, stereotactic core needle biopsy could be performed for diagnosis. NOTE: The findings, conclusions and recommendations within this report do not replace the initial findings, conclusions and recommendations made at the facility where the study was performed based upon the imaging and clinical condition at that time. Review of the prior report and correlation with the clinical history are necessary. The provided images may or may not represent the [place] source data set and thus may contain changes which may lower the sensitivity in the second opinion interpretation. Requested By: Dictated By: LORIN DAVIS M.D. on Mar 30 2014 3:09P This document has been electronically signed by: LORIN DAVIS M.D. on Mar 30 2014 3:09P Historical Provider MD MCMANUS XR PROCEDURES Final R esult documented in this encounter Visit Diagnoses Diagnosis Other breast disorders documented in this encounter Care Teams Assistant Toddler Teacher Relationship Specialty [place] [address] [address] PCP - General 09/15/12 08/19/14 documented as of this encounter
--- OUTSIDE RECORDS SUMMARY | 2024-08-09 23:39 | XMS_ITS | Encounter Summary ---
Author Organization [facility] Facility Care Team Providers Care Microwave Radio Technician Name Role Phone Kelly Olson NP Primary Care Provider [phone]- [phone] Encounter Details Date Type Department Care Team (Late st Contact Info) Description 06/14/2012 - 06/14/2012 11:59 PM [facility] Hospital Encounter [facility] Oma Portillo NP [address] [place] [address] Other screening mammogram Social History Tobacco Use Types Packs/Day Years Used Date Smoking Tobacco: Never Assessed Comments Unknown Sex and Gender Information Value Date Recorded Sex Assigned at Not on file 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 Gender Identity Not on file Sexual Orientation Not on file documented as of this encounter Medications at Time of Discharge levothyroxine (SYNTHROID, LEVOTHROID) 150 mcg tablet TAKE 1 TABLET BY MOUTH EVERY DAY 90 2 04/28/2011 03/26/2017 documented as of this encounter Plan of Treatment Not on file documented as of this encounter Visit Diagnoses Diagnosis Other screening mammogram documented in this encounter Care Teams Microwave Radio Technician Relationship Specialty [place] [address] [facility] [address] [place], [place] [id number] PCP - General 11/07/10 09/14/12 documented as of this encounter
--- OUTSIDE RECORDS SUMMARY | 2024-08-09 23:39 | XMS_ITS | Encounter Summary ---
Author Organization [facility] Facility Care Team Providers Care Porcelain Mixer Name Role Phone Kelly Olson NP Primary Care Provider +1- [phone] Encounter Details Date Type Department Care Team (Late st Contact Info) Description 04/28/2013 - 04/28/2013 11:59 PM CDT Hospital Encounter [facility] Yesy Haro MD [address] [facility] [place] [address] Antibody response examination Social History Tobacco Use Types Packs/Day Years Used Date Smoking Tobacco: Never Assessed Comments Unknown Sex and Gender Information Value Date Recorded Sex Assigned at Not on file Legal Sex Female 1:09 AM INTERNAL CONTROL ANALYST Gender Identity Not on file Sexual [...] Diagnosis Comments DISCHARGE LABORATORY CUMULATIVE REPORT Routine 05/01/2013 5:08 PM CDT SERUM MUMPS AB, IGG SCREEN Routine 04/28/2013 8:44 AM CDT documented in this encounter Results * Discharge Laboratory Cumulative Report (05/01/2013 5:08 PM CDT) 05/01/2013 5:08 PM CDT Narrative HISTORICAL RESULTS - 05/01/2013 5:08 PM CDT ? [facility] ? Department of Laboratories ?[place] [address] ?[facility] ?Outpatient ?Physician Patient Name: ? DEEJAY ALFORD Brianne Med Rec Number: ?? [id number] Date of : ?1975 Gender/Age: ? Female 38 years Doctor: ? Yesy Haro M.D. Report Date/Time: 05/01/2013 17:08 ?* Abnormal ??C Critical ??f Footnote ??^ Corrected ??L Low ??H High ?i Interp Data ??@ Reference Lab ?Chart Type: Cumulative ? SEROLOGY ? 04/28/2013 ? 08:44:00 Test ?Units ??Reference Mumps IgG i ??Positive ??* ? Negative 04/28/2013 08:44:00 Mumps IgG: Interpretive Data Negative: No detectable IgG antibody to mumps by the MICHAEL test. Such individuals are presumed to be uninfected with the mumps and to be susceptible to primary infection. Equivocal: Presence or absence of the Mumps IgG antibody cannot be determined. Positive: Indicates presence of detectable IgG antibody to mumps by the MICHAEL test. Indicativie of current or previous infection. The individual may be at risk of transmitting mumps infection, but is not necessarily currently contagious. Current interpretive data was last revised on 2010. Historical Provider LAB BLOOD ORDERABLES Tahira granger Result Performing Organization Address City/[facility] Co de Phone Number HISTORICAL RESULTS * (ABNORMAL) Serum mumps ab, IgG screen (04/28/2013 8:44 AM CDT) Mumps ab, IgG Positive( A) Negative HISTORICAL RESULTS Comment: Interpretive Data Negative: No detectable IgG antibody to mumps by the MICHAEL test. Such individuals are presumed to be uninfected with the mumps and to be susceptible to primary infection. Equivocal: Presence or absence of the Mumps IgG antibody cannot be determined. Positive: Indicates presence of detectable IgG antibody to mumps by the MICHAEL test. Indicativie of current or previous infection. The individual may be at risk of transmitting mumps infection, but is not necessarily currently contagious. Current interpretive data was last revised on 2010. Serum 04/28/2013 8:44 AM CDT Yesy Haro MD LAB BLOOD ORDERABLES Fin al Result Performing Organization Address [facility] Co de Phone Number HISTORICAL RESULTS documented in this encounter Visit Diagnoses Diagnosis Antibody response examination documented in this encounter Care Teams Porcelain Mixer Relationship Specialty [place] [address] [address] [place] [address] PCP - General 09/15/12 08/19/14 documented as of this encounter
--- OUTSIDE RECORDS SUMMARY | 2024-08-09 23:39 | XMS_ITS | Encounter Summary ---
Author Organization [facility] Healthcare Address [address] [place] [address] Care Team Providers Care Housekeeper/Laundry Assistant Name Role Phone Kelly Murphy NP Primary Care Provider +1- [phone] Encounter Details Date Type Department Care Team (Late st Contact Info) Description 08/21/2014 12:31 PM CHEMISTRY DEPARTMENT CHAIR - 08/21/2014 11:59 PM [facility] Hospital [place]counter [place] [address] [address] [place] [address] [address] Disturbance of skin sensation; Cervical spondylosis without myelopathy Social History Tobacco Use Types Packs/Day Years Used Date Smoking Tobacco: Never Alcohol Use Standard Drinks/Week Comments Yes 0 (1 standard drink = 0.6 oz pur e alcohol) Comments Unknown Sex and Gender Information Value Date Recorded Sex Assigned at Not on file Legal Sex Female 1:09 AM CHEMISTRY DEPARTMENT CHAIR Gender Identity Not on file Sexual Orientation Not on file documented as of this encounter Medications at Time of Discharge levothyroxine (SYNTHROID, LEVOTHROID) 150 mcg tablet TAKE 1 TABLET BY MOUTH EVERY DAY 90 2 04/28/2011 03/26/2017 documented as of this encounter Plan of Treatment Not on file documented as of this encounter Procedures Procedure Name Priority Date/Time Associated Diagnosis Comments XR SPINE CERVICAL W FLEXION AND EXTENSION 6 OR MORE VIEWS Routine 08/21/2014 4:17 PM CHEMISTRY DEPARTMENT CHAIR PLASMA FERRITIN Routine 08/21/2014 12:37 PM CHEMISTRY DEPARTMENT CHAIR PLASMA CYANOCOBALAMIN (VITAMIN B12) Routine 08/21/2014 12:37 PM CHEMISTRY DEPARTMENT CHAIR DISCHARGE LABORATORY CUMULATIVE REPORT 08/21/2014 documented in this encounter Results * XR Spine Cervical Rtn W Flexion And Extension 6+ View (08/21/2014 4:17 PM CHEMISTRY DEPARTMENT CHAIR) Anatomical Region Laterality Modality Spine N/A Radiographic Leti ging 08/21/2014 4:17 PM CHEMISTRY DEPARTMENT CHAIR Narrative 08/22/2014 8:35 AM CHEMISTRY DEPARTMENT CHAIR DATE OF EXAM: ??Aug 21 2014 ??4:17PM Acc#: ??[id number] ??EDX 0023 - XR Cerv. Spine Routine W Flex/Ex ?? DIAGNOSIS: ??SKIN SENSATION DISTURB CLINICAL HISTORY: ?? NUMBNESS RESULT: \ EXAM: CERVICAL SPINE ROUTINE WITH FLEXION AND EXTENSION VIEWS DATE: 08/21/2014 CLINICAL HISTORY: Neck pain and left upper extremity radiculopathy for 8-9 months without injury FINDINGS: AP, lateral, lateral flexion, lateral extension, two odontoid and two oblique views of the cervical spine were submitted for review without prior for comparison. There is loss of the normal cervical lordosis. Bony alignment is otherwise normal. The vertebral body heights are normal without evidence of fracture. The intervertebral disc spaces are well maintained. There is no abnormal motion on flexion or extension. There is mild uncovertebral joint osteoarthritis from C3-C4 to C6-C7. The C1 and C2 lateral masses are symmetric. There is no evidence of odontoid fracture. The bilateral neural foramina are widely patent. The prevertebral soft tissues are normal. IMPRESSION: ?\ MILD MULTI-LEVEL UNCOVERTEBRAL JOINT OSTEOARTHRITIS, DESCRIBED ABOVE. ?? GLASS TECHNOLOGIST: ??DM2 TRANSCRIBE DATE/TIME: ??Aug 21 2014 ??8:49P RADIOLOGIST: ??BILLIE QUIROS M.D. ??READ ON: ??Aug 21 2014 ??5:24P ORDERING DR: KELLY MURPHY N.P. THIS DOCUMENT HAS BEEN ELECTRONICALLY SIGNED BY: ??CHULA Perez, BILLIE ??ON: ??Aug 22 2014 ??8:35A Attending: ??JEFFREY, ??KELLY Requesting: ??JEFFREY, ??KELLY Requesting Fax: ??[phone] Attending Fax: ??[phone] Attending ID: ??[id number] Requesting ID: ??[id number] Report To 1 ID: ?? Report To 1 Name: ??, ?? Report To 1 FAX: ??-- Report To 2 ID: ?? Report To 2 Name: ??, ?? Report To 2 FAX: ??-- NextGen Order #: ?? Procedure Note Provider, MD Anais - 11/28/2016 DATE OF EXAM: Aug 21 2014 4:17PM Acc#: [id number] EDX 0023 - XR Cerv. Spine Routine W Flex/Ex DIAGNOSIS: SKIN SENSATION DISTURB CLINICAL HISTORY: NUMBNESS RESULT: \ EXAM: CERVICAL SPINE ROUTINE WITH FLEXION AND EXTENSION VIEWS DATE: 08/21/2014 CLINICAL HISTORY: Neck pain and left upper extremity radiculopathy for 8-9 months without injury FINDINGS: AP, lateral, lateral flexion, lateral extension, two odontoid and two oblique views of the cervical spine were submitted for review without prior for comparison. There is loss of the normal cervical lordosis. Bony alignment is otherwise normal. The vertebral body heights are normal without evidence of fracture. The intervertebral disc spaces are well maintained. There is no abnormal motion on flexion or extension. There is mild uncovertebral joint osteoarthritis from C3-C4 to C6-C7. The C1 and C2 lateral masses are symmetric. There is no evidence of odontoid fracture. The bilateral neural foramina are widely patent. The prevertebral soft tissues are normal. IMPRESSION: \ MILD MULTI-LEVEL UNCOVERTEBRAL JOINT OSTEOARTHRITIS, DESCRIBED ABOVE. GLASS TECHNOLOGIST: EDUARDO TRANSCRIBE DATE/TIME: Aug 21 2014 8:49P RADIOLOGIST: BILLIE QUIROS M.D. READ ON: Aug 21 2014 5:24P ORDERING DR: KELLY MURPHY N.P. THIS DOCUMENT HAS BEEN ELECTRONICALLY SIGNED BY: BILLIE QUIROS M.D. ON: Aug 22 2014 8:35A Attending: KELLY MURPHY Requesting: KELLY MURPHY Requesting Attending Attending ID: [id number] Requesting ID: [id number] Report To 1 ID: Report To 1 Name: , Report To 1 FAX: -- Report To 2 ID: Report To 2 Name: , Report To 2 FAX: -- NextGen Order #: Historical Provider IMG XR PROCEDURES Final R esult * Plasma ferritin (08/21/2014 12:37 PM CHEMISTRY DEPARTMENT CHAIR) Ferritin 24 11 - 310 ng/ml HISTORICAL RESULTS Plasma 08/21/2014 12:3 7 PM CHEMISTRY DEPARTMENT CHAIR Result [facility] Kelly Murphy PHONE SCREENER LAB BLOOD ORDERABLES Final Result Performing Organization Address City/[facility] Facility de Phone Number HISTORICAL RESULTS * Plasma cyanocobalamin (vitamin B12) (08/21/2014 12:37 PM CHEMISTRY DEPARTMENT CHAIR) Cyanocobalamin (Vit B12) 298 180 - 920 pg/ml HISTORICAL RESULTS Comment: B12 Reference Ranges: (greater than 1 year of age) ?Normal: ?180 - 920 pg/ml Indeterminate: ??145 - 180 pg/ml ?? Deficient: ? <145 pg/ml Plasma 08/21/2014 12:3 7 PM CHEMISTRY DEPARTMENT CHAIR Result [facility] Kelly Murphy PHONE SCREENER LAB BLOOD ORDERABLES Final Result Performing Organization Address City/[facility] Co de Phone Number HISTORICAL RESULTS * DISCHARGE LABORATORY CUMULATIVE REPORT (08/21/2014) Narrative 08/21/2014 Ordered by an unspecified provider. Historical Provider LAB BLOOD ORDERABLES Tahira l Result documented in this encounter Visit Diagnoses Diagnosis Disturbance of skin sensation Cervical spondylosis without myelopathy documented in this encounter Care Teams Housekeeper/Laundry Assistant Relationship Specialty Start Date End Date Kelly Murphy, PHONE SCREENER [address] [address] PCP - General 08/20/14 12/21/16 documented as of this encounter
--- OUTSIDE RECORDS SUMMARY | 2024-08-09 23:39 | XMS_ITS | Encounter Summary ---
Author Organization [facility] Facility Care Team Providers Care Him Manager Name Role Phone Kelly Olson NP Primary Care Provider +1- [phone] Encounter Details Date Type Department Care Team (Late st Contact Info) Description 09/15/2012 - 09/15/2012 11:59 PM SCALE AND SKIP CAR OPERATOR Hospital Encounter [facility]ha MD [address] [place] [address] Pain in joint, lower leg Social History Tobacco Use Types Packs/Day Years Used Date Smoking Tobacco: Never Assessed Comments Unknown Sex and Gender Information Value Date Recorded Sex Assigned at Not on file Legal Sex Female 1:09 AM SCALE AND SKIP CAR OPERATOR Gender Identity Not on file Sexual Orientation Not on file documented as of this encounter Medications at Time of Discharge levothyroxine (SYNTHROID, LEVOTHROID) 150 mcg tablet TAKE 1 TABLET BY MOUTH EVERY DAY 90 2 04/28/2011 03/26/2017 documented as of this encounter Plan of Treatment Not on file documented as of this encounter Procedures Procedure Name Priority Date/Time Associated Diagnosis Comments XR KNEE 4+ VW Routine 09/15/2012 3:32 PM SCALE AND SKIP CAR OPERATOR documented in this encounter Results * XR Knee 4+ VW (09/15/2012 3:32 PM SCALE AND SKIP CAR OPERATOR) Anatomical Region Laterality Modality N/A Radiographic Leti ging 09/15/2012 3:32 PM SCALE AND SKIP CAR OPERATOR Narrative 09/16/2012 4:16 PM SCALE AND SKIP CAR OPERATOR LIDIA LOZOYA M.D. REJI BRANNON, FINAL REPORT The radiology attending physician has personally reviewed this study, and has reviewed and/or edited this written report and agrees with it. ACC# ??Date Time ??Exam [id number] Sep 15, 2012 15:32:00 [id number] Knee Complete min 4 views L EXAMINATION: ?Left knee complete minimum 4 views HISTORY: ??Medial knee pain FINDINGS: ?? Four views of the left knee are performed without comparison. Alignment is normal. There is no fracture or bone abnormality. Joint spaces are normal. There is no effusion. ?? IMPRESSION: 1. Normal examination of the left knee. ?? Requested By: CASSANDRA MAGANA ??Lauren. Dictated By: ?? REJI BRANNON, ?? on Sep 15 2012 ??4:26P This document has been electronically signed by: LIDIA LOZOYA M.D. on Sep 16 2012 ??4:16P Procedure Note Provider, Anais, - 11/28/2016 LIDIA LOZOYA M.D. REJI BRANNON, FINAL REPORT The radiology attending physician has personally reviewed this study, and has reviewed and/or edited this written report and agrees with it. ACC# Date Time Exam [id number] Sep 15, 2012 15:32:00 [id number] Knee Complete min 4 views L EXAMINATION: Left knee complete minimum 4 views HISTORY: Medial knee pain FINDINGS: Four views of the left knee are performed without comparison. Alignment is normal. There is no fracture or bone abnormality. Joint spaces are normal. There is no effusion. IMPRESSION: 1. Normal examination of the left knee. Requested By: CASSANDRA MAGANA M.D. Dictated By: REJI BRANNON, on Sep 15 2012 4:26P This document has been electronically signed by: LIDIA LOZOYA M.D. on Sep 16 2012 4:16P us Historical Provider MD MCMANUS XR PROCEDURES Final R esult documented in this encounter Visit Diagnoses Diagnosis Pain in joint, lower leg documented in this encounter Care Teams Him Manager Relationship Specialty [place] [address] [address] PCP - General 09/15/12 08/19/14 documented as of this encounter
--- OUTSIDE RECORDS SUMMARY | 2024-08-09 23:39 | XMS_ITS | Encounter Summary ---
Author Organization [facility] Healthcare Address [address] [place] [address] Care Team Providers Care Seaman Officer Name Role Phone Kelly Olson NP Primary Care Provider +1- [phone] Encounter Details Date Type Department Care Team (Late st Contact Info) Description 02/16/2014 1:32 PM CDT - 02/16/2014 11:59 PM CDT Hospital Encounter [facility] Kelly Wood MD [address] [facility] [id number] [place], [place] [id number] Other screening mammogram; Inconclusive mammogram Social History Tobacco Use Types Packs/Day Years Used Date Smoking Tobacco: Never Alcohol Use Standard Drinks/Week Comments Yes 0 (1 standard drink = 0.6 oz pur e alcohol) Comments Unknown Sex and Gender Information Value Date Recorded Sex Assigned at Not on file Legal Sex Female 1:09 AM QUALITY AUDIT REPRESENTATIVE Gender Identity Not on file Sexual [...] Date/Time Associated Diagnosis Comments SCREENING MAMMOGRAM Routine 02/16/2014 2 :08 PM CDT documented in this encounter Results * Screening Mammogram (02/16/2014 2:08 PM CDT) Anatomical Region Laterality Modality Breast N/A Mammography 02/16/2014 2:08 PM CDT Narrative 03/19/2014 11:41 PM CDT Acc#: ??[id number] JENNIFER 0047 - Screening Mamm W Connor Bi DATE OF EXAM: ??Feb 16 2014 ??2:08PM DIAGNOSIS: ??SCREENING MAMMOGRAM CLINICAL HISTORY: ??SCREENING RESULT: ?\ EXAMINATION: BILATERAL SCREENING DIGITAL MAMMOGRAPHY WITH CAD AND TOMOSYNTHESIS HISTORY: ??Routine screening. ?? COMPARISON: No prior mammographic examination is currently available for comparison. ??The patient has signed a consent form to obtain the outside mammographic study. FINDINGS: ?? Craniocaudal and mediolateral oblique views of both breasts were obtained utilizing full field digital mammography. ?? The breast parenchyma is almost entirely fatty. ??A mole marker has been placed on upper right breast. There is an asymmetric density in outer left breast near the chest wall which could represent residual fibroglandular tissues. No clustered microcalcification or architectural distortions are identified. Scattered benign-appearing calcifications are seen in the right breast. ?? This examination has been subjected to R2-CAD analysis. ? IMPRESSION: 1. ??BIRADS CATEGORY 0, INCOMPLETE. 2. ??COMPARISON WITH PRIOR OUTSIDE MAMMOGRAPHIC EXAMINATION IS RECOMMENDED TO DOCUMENT STABILITY OF BREAST PARENCHYMA. ??ATTEMPTS WILL BE MADE TO OBTAIN THE OUTSIDE STUDY. ?? ADDENDUM: Prior outside mammographic examination dated 06/14/2012 from [facility] is now available for comparison. The previously described asymmetric density in upper outer left breast was not seen on the prior examination. There has, otherwise, been no significant interval change in the appearance of the breast parenchyma. IMPRESSION: 1. BIRADS CATEGORY 0, INCOMPLETE. 2. FURTHER MAMMOGRAPHIC EVALUATION OF THE LEFT BREAST WITH SPOT COMPRESSION VIEWS AND POSSIBLY ULTRASOUND IS RECOMMENDED. 3. ANNUAL SCREENING MAMMOGRAPHY OF THE RIGHT BREAST IS RECOMMENDED. TECHNOLOGIST: ?? LINDA ROBISON, TECHNOLOGIST MEDICAL IMAGING CHEMICAL EQUIPMENT SALES ENGINEER: ??PW2 TRANSCRIBE DATE/TIME: ??Feb 16 2014 ??5:20P RADIOLOGIST: ??HARYR PENA M.D. ??READ ON: ??Feb 16 2014 ??3:49P ORDERING DR: KELLY PARSONS M.D. THIS DOCUMENT HAS BEEN ELECTRONICALLY SIGNED BY: ??HARRY PENA M.D. ??ON: ??Mar 19 2014 11:41P ? CHEMICAL EQUIPMENT SALES ENGINEER: ??PW2 TRANSCRIBE DATE/TIME: ??Feb 16 2014 ??5:20P RADIOLOGIST: ??HARRY PENA M.D. ??READ ON: ??Feb 16 2014 ??3:49P ORDERING DR: KELLY PARSONS M.D. THIS DOCUMENT HAS BEEN ELECTRONICALLY SIGNED BY: ??HARRY PENA M.D. ??ON: ??Mar 19 2014 11:41P ? CHEMICAL EQUIPMENT SALES ENGINEER: ??PW2 TRANSCRIBE DATE/TIME: ??Feb 16 2014 ??5:20P RADIOLOGIST: ??HARRY PENA M.D. ??READ ON: ??Feb 16 2014 ??3:49P ORDERING DR: KELLY PARSONS M.D. THIS DOCUMENT HAS BEEN ELECTRONICALLY SIGNED BY: ??HARRY PENA M.D. ??ON: ??Mar 19 2014 11:41P Requesting Fax: ??[phone] Procedure Note Provider, MD Anais - 11/28/2016 Acc#: [id number] JENNIFER 0047 - Screening Mamm W Connor Bi DATE OF EXAM: Feb 16 2014 2:08PM DIAGNOSIS: SCREENING MAMMOGRAM CLINICAL HISTORY: SCREENING RESULT: \ EXAMINATION: BILATERAL SCREENING DIGITAL MAMMOGRAPHY WITH CAD AND TOMOSYNTHESIS HISTORY: Routine screening. COMPARISON: No prior mammographic examination is currently available for comparison. The patient has signed a consent form to obtain the outside mammographic study. FINDINGS: Craniocaudal and mediolateral oblique views of both breasts were obtained utilizing full field digital mammography. The breast parenchyma is almost entirely fatty. A mole marker has been placed on upper right breast. There is an asymmetric density in outer left breast near the chest wall which could represent residual fibroglandular tissues. No clustered microcalcification or architectural distortions are identified. Scattered benign-appearing calcifications are seen in the right breast. This examination has been subjected to R2-CAD analysis. IMPRESSION: 1. BIRADS CATEGORY 0, INCOMPLETE. 2. COMPARISON WITH PRIOR OUTSIDE MAMMOGRAPHIC EXAMINATION IS RECOMMENDED TO DOCUMENT STABILITY OF BREAST PARENCHYMA. ATTEMPTS WILL BE MADE TO OBTAIN THE OUTSIDE STUDY. ADDENDUM: Prior outside mammographic examination dated 06/14/2012 from [facility] is now available for comparison. The previously described asymmetric density in upper outer left breast was not seen on the prior examination. There has, otherwise, been no significant interval change in the appearance of the breast parenchyma. IMPRESSION: 1. BIRADS CATEGORY 0, INCOMPLETE. 2. FURTHER MAMMOGRAPHIC EVALUATION OF THE LEFT BREAST WITH SPOT COMPRESSION VIEWS AND POSSIBLY ULTRASOUND IS RECOMMENDED. 3. ANNUAL SCREENING MAMMOGRAPHY OF THE RIGHT BREAST IS RECOMMENDED. TECHNOLOGIST: LINDA ROBISON, TECHNOLOGIST MEDICAL IMAGING CHEMICAL EQUIPMENT SALES ENGINEER: JAY JAY TRANSCRIBE DATE/TIME: Feb 16 2014 5:20P RADIOLOGIST: HARRY PENA M.D. READ ON: Feb 16 2014 3:49P ORDERING DR: KELLY PARSONS M.D. THIS DOCUMENT HAS BEEN ELECTRONICALLY SIGNED BY: HARRY PENA M.D. ON: Mar 19 2014 11:41P CHEMICAL EQUIPMENT SALES ENGINEER: JAY JAY TRANSCRIBE DATE/TIME: Feb 16 2014 5:20P RADIOLOGIST: HARRY PENA M.D. READ ON: Feb 16 2014 3:49P ORDERING DR: KELLY PARSONS M.D. THIS DOCUMENT HAS BEEN ELECTRONICALLY SIGNED BY: HARRY PENA M.D. ON: Mar 19 2014 11:41P CHEMICAL EQUIPMENT SALES ENGINEER: JAY JAY TRANSCRIBE DATE/TIME: Feb 16 2014 5:20P RADIOLOGIST: HARRY PENA M.D. READ ON: Feb 16 2014 3:49P ORDERING DR: KELLY PARSONS M.D. THIS DOCUMENT HAS BEEN ELECTRONICALLY SIGNED BY: HARRY PENA M.D. ON: Mar 19 2014 11:41P Requesting us Historical Provider MD [facility]US MAMMO PROCEDURES Tahira l Result documented in this encounter Visit Diagnoses Diagnosis Other screening mammogram Inconclusive mammogram documented in this encounter Care Teams Seaman Officer Relationship Specialty [place] [address] [place] [address] PCP - General 09/15/12 08/19/14 documented as of this encounter
--- OUTSIDE RECORDS SUMMARY | 2024-08-09 23:39 | XMS_ITS | Encounter Summary ---
Author Organization [facility] Facility Care Team Providers Care Supervisor Plastics Name Role Phone Kelly Olson NP Primary Care Provider +- [phone] Encounter Details Date Type Department Care Team (Late st Contact Info) Description 03/15/2012 - 03/15/2012 11:59 PM T Hospital Encounter [facility] Yesy Haro MD [address] [facility] [place] [address] [place] [address] Routine general medical examination at a health care facility Social History Tobacco Use Types Packs/Day Years Used Date Smoking Tobacco: Never Assessed Comments Unknown Sex and Gender Information Value Date Recorded Sex Assigned at Not on file Legal Sex Female 1:09 AM SPECIAL FORCES SPECIALIST Gender Identity Not on file Sexual Orientation Not on file documented as of this encounter Medications at Time of Discharge levothyroxine (SYNTHROID, LEVOTHROID) 150 mcg tablet TAKE 1 TABLET BY MOUTH EVERY DAY 90 2 04/28/2011 03/26/2017 documented as of this encounter Plan of Treatment Not on file documented as of this encounter Visit Diagnoses Diagnosis Routine general medical examination at a health care facility documented in this encounter Care Teams Supervisor Plastics Relationship Specialty [place] [address] [facility] [address] [place] [address] PCP - General 11/07/10 09/14/12 documented as of this encounter
--- OUTSIDE RECORDS SUMMARY | 2024-08-09 23:40 | XMS_ITS | Encounter Summary ---
Author Organization [facility] Facility Care Team Providers Care Stereotype Finisher Name Role Phone Kelly Olson NP Primary Care Provider +- [phone] Encounter Details Date Type Department Care Team (Late st Contact Info) Description 04/16/2011 - 04/16/2011 11:59 PM T Hospital Encounter [facility] Yesy Haro MD [address] [facility] [address] [place] [address] Pain in joint, forearm Social History Tobacco Use Types Packs/Day Years Used Date Smoking Tobacco: Never Assessed Comments Unknown Sex and Gender Information Value Date Recorded Sex Assigned at Not on file Legal Sex Female 1:09 AM YOUTH DEVELOPMENT PROFESSIONAL Gender Identity Not on file Sexual Orientation Not on file documented as of this encounter Plan of Treatment Not on file documented as of this encounter Visit Diagnoses Diagnosis Pain in joint, forearm documented in this encounter Care Teams Stereotype Finisher Relationship Specialty [place] [address] [facility] [address] [place] [address] PCP - General 11/07/10 09/14/12 documented as of this encounter
--- OUTSIDE RECORDS SUMMARY | 2024-08-09 23:40 | XMS_ITS | Encounter Summary ---
Author Organization [facility] Facility Care Team Providers Care Spice [employer] Name Role Phone Unavailable Primary Care Provider Unavailabl e Encounter Details Date Type Department Care Team (Late st Contact Info) Description 11/26/2008 - 11/26/2008 11:59 PM CDT Hospital Encounter [facility] Kisha Osborn MD [address] [facility] [address] [phone] [place] [address] Screening for malignant neoplasm of cervix Social History Tobacco Use Types Packs/Day Years Used Date Smoking Tobacco: Never Assessed Comments Unknown Sex and Gender Information Value Date Recorded Sex Assigned at Not on file Legal Sex Female 1:09 AM CHURCH SUPERVISOR Gender Identity Not on file Sexual Orientation Not on file documented as of this encounter Plan of Treatment Not on file documented as of this encounter Visit Diagnoses Diagnosis Screening for malignant neoplasm of cervix Screening for malignant neoplasm of the cervix documented in this encounter
--- OUTSIDE RECORDS SUMMARY | 2024-08-09 23:40 | XMS_ITS | Encounter Summary ---
Author Organization [facility] Facility Care Team Providers Care Triage Technician Name Role Phone Unavailable Primary Care Provider Unavailabl e Encounter Details Date Type Department Care Team (Late st Contact Info) Description 09/17/2006 - 09/17/2006 11:59 PM GASOLINE PLANT OPERATOR Hospital Encounter [facility] Dexter Joy MD [address] [place] [address] Social History Tobacco Use Types Packs/Day Years Used Date Smoking Tobacco: Never Assessed Comments Unknown Sex and Gender Information Value Date Recorded Sex Assigned at Not on file Legal Sex Female 1:09 AM GASOLINE PLANT OPERATOR Gender Identity Not on file Sexual Orientation Not on file documented as of this encounter Plan of Treatment Not on file documented as of this encounter Visit Diagnoses Not on filedocumented in this encounter
--- OUTSIDE RECORDS SUMMARY | 2024-08-09 23:40 | XMS_ITS | Encounter Summary ---
Author Organization [facility] Facility Care Team Providers Care Gin Operator Name Role Phone Kelly Olson NP Primary Care Provider + [phone] Encounter Details Date Type Department Care Team (Late st Contact Info) Description 07/19/2009 - 07/19/2009 11:59 PM HIGH RISK OB Hospital Encounter [facility] Dexter Webb MD [address] [place] [address] Hypothyroidism Social History Tobacco Use Types Packs/Day Years Used Date Smoking Tobacco: Never Assessed Comments Unknown Sex and Gender Information Value Date Recorded Sex Assigned at Not on file Legal Sex Female 1:09 AM HIGH RISK OB Gender Identity Not on file Sexual Orientation Not on file documented as of this encounter Plan of Treatment Not on file documented as of this encounter Visit Diagnoses Diagnosis Hypothyroidism Unspecified hypothyroidism documented in this encounter Care Teams Gin Operator Relationship Specialty [place] [address] [address] [place] [address] PCP - General 06/18/09 11/06/10 documented as of this encounter
--- OUTSIDE RECORDS SUMMARY | 2024-08-09 23:40 | XMS_ITS | Encounter Summary ---
Author Organization [facility] Facility Care Team Providers Care Planning Aide Name Role Phone Kelyl Olson NP Primary Care Provider +1- [phone] Encounter Details Date Type Department Care Team (Late st Contact Info) Description 07/17/2011 - 07/17/2011 11:59 PM BEHAVIORAL HEALTH WORKER Hospital Encounter [facility] [address] [place], [place] [id number] Exostosis Social History Tobacco Use Types Packs/Day Years Used Date Smoking Tobacco: Never Assessed Comments Unknown Sex and Gender Information Value Date Recorded Sex Assigned at Not on file Legal Sex Female 1:09 AM BEHAVIORAL HEALTH WORKER Gender Identity Not on file Sexual Orientation Not on file documented as of this encounter Medications at Time of Discharge levothyroxine (SYNTHROID, LEVOTHROID) 150 mcg tablet TAKE 1 TABLET BY MOUTH EVERY DAY 90 2 04/28/2011 03/26/2017 documented as of this encounter Plan of Treatment Not on file documented as of this encounter Visit Diagnoses Diagnosis Exostosis Exostosis of unspecified site documented in this encounter Care Teams Planning Aide Relationship Specialty [place] [address] [place] [id number] PCP - General 11/07/10 09/14/12 documented as of this encounter
--- OUTSIDE RECORDS SUMMARY | 2024-08-09 23:40 | XMS_ITS | Encounter Summary ---
Author Organization [facility] Facility Care Team Providers Care Director Global Sales Name Role Phone Unavailable Primary Care Provider Unavailabl e Encounter Details Date Type Department Care Team (Late st Contact Info) Description 08/01/2007 - 08/01/2007 11:59 PM ENGINEERING DRAFTER Hospital Encounter [facility] Dexter Joy MD [address] [place] [address] Social History Tobacco Use Types Packs/Day Years Used Date Smoking Tobacco: Never Assessed Comments Unknown Sex and Gender Information Value Date Recorded Sex Assigned at Not on file Legal Sex Female 1:09 AM ENGINEERING DRAFTER Gender Identity Not on file Sexual Orientation Not on file documented as of this encounter Plan of Treatment Not on file documented as of this encounter Visit Diagnoses Not on filedocumented in this encounter
--- OUTSIDE RECORDS SUMMARY | 2024-08-09 23:40 | XMS_ITS | Encounter Summary ---
Author Organization [facility] Facility Care Team Providers Care Scalder Name Role Phone Unavailable Primary Care Provider Unavailabl e Encounter Details Date Type Department Care Team (Late st Contact Info) Description 06/28/2007 - 06/28/2007 11:59 PM BOTTLER Hospital Encounter [facility] Dexter Joy MD [address] [place] [address] Social History Tobacco Use Types Packs/Day Years Used Date Smoking Tobacco: Never Assessed Comments Unknown Sex and Gender Information Value Date Recorded Sex Assigned at Not on file Legal Sex Female 1:09 AM BOTTLER Gender Identity Not on file Sexual Orientation Not on file documented as of this encounter Plan of Treatment Not on file documented as of this encounter Visit Diagnoses Not on filedocumented in this encounter
--- OUTSIDE RECORDS SUMMARY | 2024-08-09 23:40 | XMS_ITS | Encounter Summary ---
Author Organization [facility] Facility Care Team Providers Care Telegraph Mechanic Name Role Phone Unavailable Primary Care Provider Unavailabl e Encounter Details Date Type Department Care Team (Late st Contact Info) Description 10/25/2006 4:02 PM CDT - 10/30/2006 11:21 AM T Hospital Encounter [facility] Kelly Wood MD [address] [facility] [address] [phone] [place], [place] [id number] Transient hypertension of , with delivery; Post term , delivered; Other current maternal conditions classifiable elsewhere, with delivery; Other and unspecified uterine inertia, with delivery; Carrier or suspected carrier of group B Streptococcus; Delivery outcome of single liveborn infant Social History Tobacco Use Types Packs/Day Years Used Date Smoking Tobacco: Never Assessed Comments Unknown Sex and Gender Information Value Date Recorded Sex Assigned at Not on file Legal Sex Female 1:09 AM LAWN MOWER OPERATOR Gender Identity Not on file Sexual Orientation Not on file documented as of this encounter Plan of Treatment Not on file documented as of this encounter Visit Diagnoses Diagnosis Transient hypertension of , with delivery Post term , delivered Post term , delivered with or without mention of antepartum condition Other current maternal conditions classifiable elsewhere, with delivery Other and unspecified uterine inertia, with delivery Carrier or suspected carrier of group B Streptococcus Carrier or suspected carrier of Group B streptococcus Delivery outcome of single liveborn documented in this encounter
--- OUTSIDE RECORDS SUMMARY | 2024-08-09 23:40 | XMS_ITS | Encounter Summary ---
Author Organization [facility] Facility Care Team Providers Care Commercial Sales Representative Name Role Phone Unavailable Primary Care Provider Unavailabl e Encounter Details Date Type Department Care Team (Late st Contact Info) Description 03/08/2008 - 03/08/2008 11:59 PM CDT Hospital Encounter [facility] Dexter Joy MD [address] [place] [address] Social History Tobacco Use Types Packs/Day Years Used Date Smoking Tobacco: Never Assessed Comments Unknown Sex and Gender Information Value Date Recorded Sex Assigned at Not on file Legal Sex Female 1:09 AM ASSEMBLER SMALL PRODUCTS Gender Identity Not on file Sexual Orientation Not on file documented as of this encounter Plan of Treatment Not on file documented as of this encounter Visit Diagnoses Not on filedocumented in this encounter
--- OUTSIDE RECORDS SUMMARY | 2024-08-09 23:40 | XMS_ITS | Encounter Summary ---
Author Organization [facility] Facility Care Team Providers Care Hospice Plan Administrator Name Role Phone Unavailable Primary Care Provider Unavailabl e Encounter Details Date Type Department Care Team (Late st Contact Info) Description 10/11/2008 12:44 PM CDT - 10/15/2008 11:44 AM CDT Hospital Encounter [facility] Kelly Wood MD [address] [facility] [facility] [address] [phone] [place], [place] [id number] Failed induction of labor, delivered; Previous delivery, delivered; Maternal thyroid dysfunction with delivery; Hypothyroidism; Maternal mental disorder, with delivery; Other depressive disorder; Advanced maternal age, delivered; Post term , delivered; Abnormality in heart rate/rhythm, delivered; Delivery outcome of single liveborn ; Encounter for sterilization Social History Tobacco Use Types Packs/Day Years Used Date Smoking Tobacco: Never Assessed Comments Unknown Sex and Gender Information Value Date Recorded Sex Assigned at Not on file Legal Sex Female 1:09 AM FINANCIAL PLANNING CONSULTANT Gender Identity Not on file Sexual Orientation Not on file documented as of this encounter Plan of Treatment Not on file documented as of this encounter Visit Diagnoses Diagnosis Failed induction of labor, delivered Failed medical or unspecified induction of labor, delivered Previous delivery, delivered Previous delivery, delivered, with or without mention of antepartum condition Maternal thyroid dysfunction with delivery Thyroid dysfunction of mother, with delivery Hypothyroidism Unspecified hypothyroidism Maternal mental disorder, with delivery Mental disorders of mother, with delivery Other depressive disorder Advanced maternal age, delivered Elderly multigravida delivered, with mention of antepartum condition Post term , delivered Post term , delivered with or without mention of antepartum condition Abnormality in heart rate/rhythm, delivered Delivery outcome of single liveborn infant Encounter for sterilization Sterilization documented in this encounter
--- OUTSIDE RECORDS SUMMARY | 2024-08-09 23:40 | XMS_ITS | Encounter Summary ---
Author Organization [facility] Facility Care Team Providers Care Pediatric Psychiatrist Name Role Phone Kelly Olson NP Primary Care Provider + [phone] Encounter Details Date Type Department Care Team (Late st Contact Info) Description 06/18/2009 - 06/18/2009 11:59 PM CERTIFIED ENERGY MANAGER Hospital Encounter [facility] Brant Gregorio MD [address] [facility] [address] [place], [place] [id number] Benign neoplasm of other specified sites of skin Social History Tobacco Use Types Packs/Day Years Used Date Smoking Tobacco: Never Assessed Comments Unknown Sex and Gender Information Value Date Recorded Sex Assigned at Not on file Legal Sex Female 1:09 AM CERTIFIED ENERGY MANAGER Gender Identity Not on file Sexual Orientation Not on file documented as of this encounter Plan of Treatment Not on file documented as of this encounter Visit Diagnoses Diagnosis Benign neoplasm of other specified sites of skin documented in this encounter Care Teams Pediatric Psychiatrist Relationship Specialty [place] [address] [facility] [address] [place] [address] PCP - General 06/18/09 11/06/10 documented as of this encounter
--- OUTSIDE RECORDS SUMMARY | 2024-08-09 23:40 | XMS_ITS | Encounter Summary ---
Author Organization [facility] Facility Care Team Providers Care Storage Center Manager Name Role Phone Kelly Olson NP Primary Care Provider + [phone] Encounter Details Date Type Department Care Team (Late st Contact Info) Description 03/06/2010 - 03/06/2010 11:59 PM CDT Hospital Encounter [facility] Dexter Webb MD [facility] [address] [facility] [address], [place] [address] Screening for malignant neoplasm of cervix Social History Tobacco Use Types Packs/Day Years Used Date Smoking Tobacco: Never Assessed Comments Unknown Sex and Gender Information Value Date Recorded Sex Assigned at Not on file Legal Sex Female 1:[address] Gender Identity Not on file Sexual Orientation Not on file documented as of this encounter Plan of Treatment Not on file documented as of this encounter Visit Diagnoses Diagnosis Screening for malignant neoplasm of cervix Screening for malignant neoplasm of the cervix documented in this encounter Care Teams Storage Center Manager Relationship Specialty [place] [address] [facility] [address] [place] [address] PCP - General 06/18/09 11/06/10 documented as of this encounter
--- OUTSIDE RECORDS SUMMARY | 2024-08-09 23:40 | XMS_ITS | Encounter Summary ---
Author Organization [facility] Facility Care Team Providers Care Template Checker Name Role Phone Unavailable Primary Care Provider Unavailabl e Encounter Details Date Type Department Care Team (Late st Contact Info) Description 08/30/2008 - 08/30/2008 11:59 PM LIQUID FLOOR AND WALL APPLIER Hospital Encounter [facility] Kelly Wood MD [address] [facility] [address] [phone] [place], [place] [id number] Encounter for supervision of normal in multigravida Social History Tobacco Use Types Packs/Day Years Used Date Smoking Tobacco: Never Assessed Comments Unknown Sex and Gender Information Value Date Recorded Sex Assigned at Not on file Legal Sex Female 1:09 AM LIQUID FLOOR AND WALL APPLIER Gender Identity Not on file Sexual Orientation Not on file documented as of this encounter Plan of Treatment Not on file documented as of this encounter Visit Diagnoses Diagnosis Encounter for supervision of normal in multigravida documented in this encounter
--- OUTSIDE RECORDS SUMMARY | 2024-08-09 23:40 | XMS_ITS | Encounter Summary ---
Author Organization [facility] Facility Care Team Providers Care Multi Punch Operator Name Role Phone Unavailable Primary Care Provider Unavailabl e Encounter Details Date Type Department Care Team (Late st Contact Info) Description 12/07/2008 - 12/07/2008 11:59 PM CDT Hospital Encounter [facility] Kisha Osborn MD [address] [facility] [address] [phone] [place] [address] Other specified episodic mood disorder Social History Tobacco Use Types Packs/Day Years Used Date Smoking Tobacco: Never Assessed Comments Unknown Sex and Gender Information Value Date Recorded Sex Assigned at Not on file Legal Sex Female 1:09 AM ACCESS RN Gender Identity Not on file Sexual Orientation Not on file documented as of this encounter Plan of Treatment Not on file documented as of this encounter Visit Diagnoses Diagnosis Other specified episodic mood disorder documented in this encounter
--- OUTSIDE RECORDS SUMMARY | 2024-08-09 23:40 | XMS_ITS | Encounter Summary ---
Author Organization [facility] Facility Care Team Providers Care Patient Registration Specialist Name Role Phone Unavailable Primary Care Provider Unavailabl e Encounter Details Date Type Department Care Team (Late st Contact Info) Description 03/23/2008 - 03/23/2008 11:59 PM CDT Hospital Encounter [facility] Dexter Joy MD [address] [place] [address] Social History Tobacco Use Types Packs/Day Years Used Date Smoking Tobacco: Never Assessed Comments Unknown Sex and Gender Information Value Date Recorded Sex Assigned at Not on file Legal Sex Female 1:09 AM ITEM PROCESSING CLERK Gender Identity Not on file Sexual Orientation Not on file documented as of this encounter Plan of Treatment Not on file documented as of this encounter Visit Diagnoses Not on filedocumented in this encounter
--- OUTSIDE RECORDS SUMMARY | 2024-08-09 23:40 | XMS_ITS | Encounter Summary ---
Author Organization [facility] Facility Care Team Providers Care Manager Labor Delivery Name Role Phone Unavailable Primary Care Provider Unavailabl e Encounter Details Date Type Department Care Team (Late st Contact Info) Description 12/28/2006 - 12/28/2006 11:59 PM CDT Hospital Encounter [facility] Dexter Joy MD [address] [place] [address] Social History Tobacco Use Types Packs/Day Years Used Date Smoking Tobacco: Never Assessed Comments Unknown Sex and Gender Information Value Date Recorded Sex Assigned at Not on file Legal Sex Female 1:09 AM MANAGER TECHNICAL TRAINING Gender Identity Not on file Sexual Orientation Not on file documented as of this encounter Plan of Treatment Not on file documented as of this encounter Visit Diagnoses Not on filedocumented in this encounter
--- OUTSIDE RECORDS SUMMARY | 2024-08-09 23:40 | XMS_ITS | Encounter Summary ---
Author Organization [facility] Facility Care Team Providers Care Electric Tape Slitter Name Role Phone Unavailable Primary Care Provider Unavailabl e Encounter Details Date Type Department Care Team (Late st Contact Info) Description 06/18/2008 - 06/18/2008 11:59 PM WAREHOUSE SHIPPING CLERK Hospital Encounter [facility] Dexetr Joy MD [address] [place] [address] Other specified screening Social History Tobacco Use Types Packs/Day Years Used Date Smoking Tobacco: Never Assessed Comments Unknown Sex and Gender Information Value Date Recorded Sex Assigned at Not on file Legal Sex Female 1:09 AM WAREHOUSE SHIPPING CLERK Gender Identity Not on file Sexual Orientation Not on file documented as of this encounter Plan of Treatment Not on file documented as of this encounter Visit Diagnoses Diagnosis Other specified screening documented in this encounter
--- OUTSIDE RECORDS SUMMARY | 2024-08-09 23:40 | XMS_ITS | Encounter Summary ---
Author Organization [facility] Facility Care Team Providers Care Fine Patcher Name Role Phone Unavailable Primary Care Provider Unavailabl e Encounter Details Date Type Department Care Team (Late st Contact Info) Description 06/12/2009 - 06/12/2009 11:59 PM HOUSING MANAGER Hospital Encounter [facility] Dexter Joy MD [address] [place] [address] Hypothyroidism Social History Tobacco Use Types Packs/Day Years Used Date Smoking Tobacco: Never Assessed Comments Unknown Sex and Gender Information Value Date Recorded Sex Assigned at Not on file Legal Sex Female 1:09 AM HOUSING MANAGER Gender Identity Not on file Sexual Orientation Not on file documented as of this encounter Plan of Treatment Not on file documented as of this encounter Visit Diagnoses Diagnosis Hypothyroidism Unspecified hypothyroidism documented in this encounter
--- OUTSIDE RECORDS SUMMARY | 2024-08-09 23:40 | XMS_ITS | Encounter Summary ---
Author Organization [facility] Facility Care Team Providers Care Stitch Burnisher Name Role Phone Unavailable Primary Care Provider Unavailabl e Encounter Details Date Type Department Care Team (Late st Contact Info) Description 05/21/2008 - 05/21/2008 11:59 PM CDT Hospital Encounter [facility] Dexter Joy MD [address] [place] [address] Social History Tobacco Use Types Packs/Day Years Used Date Smoking Tobacco: Never Assessed Comments Unknown Sex and Gender Information Value Date Recorded Sex Assigned at Not on file Legal Sex Female 1:09 AM PRESS TENDER Gender Identity Not on file Sexual Orientation Not on file documented as of this encounter Plan of Treatment Not on file documented as of this encounter Visit Diagnoses Not on filedocumented in this encounter
--- OUTSIDE RECORDS SUMMARY | 2024-08-09 23:40 | XMS_ITS | Encounter Summary ---
Author Organization [facility] Facility Care Team Providers Care Behavioral Health Assistant Name Role Phone Unavailable Primary Care Provider Unavailabl e Encounter Details Date Type Department Care Team (Late st Contact Info) Description 02/09/2008 - 02/09/2008 11:59 PM CDT Hospital Encounter [facility] Dexter Joy MD [address] [place] [address] Social History Tobacco Use Types Packs/Day Years Used Date Smoking Tobacco: Never Assessed Comments Unknown Sex and Gender Information Value Date Recorded Sex Assigned at Not on file Legal Sex Female 1:09 AM RADIO MECHANIC APPRENTICE Gender Identity Not on file Sexual Orientation Not on file documented as of this encounter Plan of Treatment Not on file documented as of this encounter Visit Diagnoses Not on filedocumented in this encounter
--- OUTSIDE RECORDS SUMMARY | 2024-08-09 23:40 | XMS_ITS | Encounter Summary ---
Author Organization [facility] Facility Care Team Providers Care Meter Reader Inspector Name Role Phone Kelly Olson NP Primary Care Provider +1- [phone] Encounter Details Date Type Department Care Team (Late st Contact Info) Description 09/17/2010 - 09/17/2010 11:59 PM BALANCER SCALE Hospital Encounter [facility] Yesy Talbert MD [address] [facility] [address] [place] [address] Hypothyroidism; Other abnormal glucose; Pure hypercholesterolemia Social History Tobacco Use Types Packs/Day Years Used Date Smoking Tobacco: Never Assessed Comments Unknown Sex and Gender Information Value Date Recorded Sex Assigned at Not on file Legal Sex Female 1:09 AM BALANCER SCALE Gender Identity Not on file Sexual Orientation Not on file documented as of this encounter Plan of Treatment Not on file documented as of this encounter Visit Diagnoses Diagnosis Hypothyroidism Unspecified hypothyroidism Other abnormal glucose Pure hypercholesterolemia documented in this encounter Care Teams Meter Reader Inspector Relationship Specialty [place] [address] [facility] [address] [place] [address] PCP - General 06/18/09 11/06/10 documented as of this encounter
--- OUTSIDE RECORDS SUMMARY | 2024-08-09 23:40 | XMS_ITS | Encounter Summary ---
Author Organization [facility] Facility Care Team Providers Care Cow Washer Name Role Phone Unavailable Primary Care Provider Unavailabl e Encounter Details Date Type Department Care Team (Latest Contact Info) Description 07/04/2008 - 07/04/2008 11:59 PM GROCERY TEAM MEMBER Hospital Encounter [facility] Dexter Joy MD [address] [facility] [address] [place] [address] Encounter for supervision of normal in multigravida Social History Tobacco Use Types Packs/Day Years Used Date Smoking Tobacco: Never Assessed Comments Unknown Sex and Gender Information Value Date Recorded Sex Assigned at Not on file Legal Sex Female 1:09 AM GROCERY TEAM MEMBER Gender Identity Not on file Sexual Orientation Not on file documented as of this encounter Plan of Treatment Not on file documented as of this encounter Visit Diagnoses Diagnosis Encounter for supervision of normal in multigravida documented in this encounter
--- OUTSIDE RECORDS SUMMARY | 2024-08-09 23:40 | XMS_ITS | Encounter Summary ---
Author Organization [facility] Facility Care Team Providers Care Quality Assurance Supervisor Final Name Role Phone Unavailable Primary Care Provider Unavailabl e Encounter Details Date Type Department Care Team (Late st Contact Info) Description 05/10/2008 - 05/10/2008 11:59 PM CDT Hospital Encounter [facility] Kelly Wood MD [address] [facility] [phone] [place], [place] [id number] Social History Tobacco Use Types Packs/Day Years Used Date Smoking Tobacco: Never Assessed Comments Unknown Sex and Gender Information Value Date Recorded Sex Assigned at Not on file Legal Sex Female 1:09 AM ASSURANCE ANALYST Gender Identity Not on file Sexual Orientation Not on file documented as of this encounter Plan of Treatment Not on file documented as of this encounter Visit Diagnoses Not on filedocumented in this encounter
--- OUTSIDE RECORDS SUMMARY | 2024-08-09 23:40 | XMS_ITS | Encounter Summary ---
Author Organization [facility] Facility Care Team Providers Care Paint Prepper Name Role Phone Kelly Olson NP Primary Care Provider +1- [phone] Encounter Details Date Type Department Care Team (Late st Contact Info) Description 02/20/2010 - 02/20/2010 11:59 PM T Hospital Encounter [facility] Yesy Haro MD [address] [facility] [place] [address] [place] [address] Maternal thyroid dysfunction, antepartum; Hypothyroidism; Maternal mental disorder, antepartum; Other complication of , antepartum; Other and unspecified hyperlipidemia Social History Tobacco Use Types Packs/Day Years Used Date Smoking Tobacco: Never Assessed Comments Unknown Sex and Gender Information Value Date Recorded Sex Assigned at Not on file Legal Sex Female 1:09 AM FIRST COAT SANDER Gender Identity Not on file Sexual Orientation Not on file documented as of this encounter Plan of Treatment Not on file documented as of this encounter Visit Diagnoses Diagnosis Maternal thyroid dysfunction, antepartum Thyroid dysfunction, antepartum Hypothyroidism Unspecified hypothyroidism Maternal mental disorder, antepartum Mental disorders of mother, antepartum Other complication of , antepartum Other and unspecified hyperlipidemia documented in this encounter Care Teams Paint Prepper Relationship Specialty [place] [address] [facility] [address] [place] [address] PCP - General 06/18/09 11/06/10 documented as of this encounter
--- OUTSIDE RECORDS SUMMARY | 2024-08-09 23:40 | XMS_ITS | Encounter Summary ---
Author Organization [facility] Facility Care Team Providers Care Disability Specialist Name Role Phone Unavailable Primary Care Provider Unavailabl e Encounter Details Date Type Department Care Team (Late st Contact Info) Description 08/09/2006 - 08/09/2006 11:59 PM LAB ANIMAL TECHNOLOGIST Hospital Encounter [facility] Dexter Joy MD [address] [place] [address] Social History Tobacco Use Types Packs/Day Years Used Date Smoking Tobacco: Never Assessed Comments Unknown Sex and Gender Information Value Date Recorded Sex Assigned at Not on file Legal Sex Female 1:09 AM LAB ANIMAL TECHNOLOGIST Gender Identity Not on file Sexual Orientation Not on file documented as of this encounter Plan of Treatment Not on file documented as of this encounter Visit Diagnoses Not on filedocumented in this encounter
--- OUTSIDE RECORDS SUMMARY | 2024-08-09 23:40 | XMS_ITS | Encounter Summary ---
Author Organization [facility] Facility Care Team Providers Care First Line Supervisor Name Role Phone Kelly Olson NP Primary Care Provider + [phone] Encounter Details Date Type Department Care Team (Late st Contact Info) Description 09/06/2009 - 09/06/2009 11:59 PM IT SOLUTIONS SALES CONSULTANT Hospital Encounter [facility] Dexter Webb MD [address] [facility] [address], [place] [id number] Maternal thyroid dysfunction, antepartum Social History Tobacco Use Types Packs/Day Years Used Date Smoking Tobacco: Never Assessed Comments Unknown Sex and Gender Information Value Date Recorded Sex Assigned at Not on file Legal Sex Female 1:09 AM IT SOLUTIONS SALES CONSULTANT Gender Identity Not on file Sexual Orientation Not on file documented as of this encounter Plan of Treatment Not on file documented as of this encounter Visit Diagnoses Diagnosis Maternal thyroid dysfunction, antepartum Thyroid dysfunction, antepartum documented in this encounter Care Teams First Line Supervisor Relationship Specialty [place] [address] [facility] [facility] [address] [place] [address] PCP - General 06/18/09 11/06/10 documented as of this encounter
--- OUTSIDE RECORDS SUMMARY | 2024-08-09 23:40 | XMS_ITS | Encounter Summary ---
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
--- OUTSIDE RECORDS SUMMARY | 2024-08-09 23:40 | XMS_ITS | Encounter Summary ---
Author Organization [facility] Facility Care Team Providers Care Ip Architect Name Role Phone Unavailable Primary Care Provider Unavailabl e Encounter Details Date Type Department Care Team (Late st Contact Info) Description 03/19/2008 - 03/19/2008 11:59 PM CDT Hospital Encounter [facility] Dexter Joy MD [address] [place] [address] Social History Tobacco Use Types Packs/Day Years Used Date Smoking Tobacco: Never Assessed Comments Unknown Sex and Gender Information Value Date Recorded Sex Assigned at Not on file Legal Sex Female 1:09 AM MURAL PAINTER Gender Identity Not on file Sexual Orientation Not on file documented as of this encounter Plan of Treatment Not on file documented as of this encounter Visit Diagnoses Not on filedocumented in this encounter
--- OUTSIDE RECORDS SUMMARY | 2024-08-09 23:40 | XMS_ITS | Encounter Summary ---
Author Organization [facility] Facility Care Team Providers Care Apprenticeship Training Representative Name Role Phone Unavailable Primary Care Provider Unavailabl e Encounter Details Date Type Department Care Team (Late st Contact Info) Description 09/16/2007 - 09/16/2007 11:59 PM SPEECH THERAPIST TECHNICIAN Hospital Encounter [facility] Dexter Joy MD [address] [place] [address] Social History Tobacco Use Types Packs/Day Years Used Date Smoking Tobacco: Never Assessed Comments Unknown Sex and Gender Information Value Date Recorded Sex Assigned at Not on file Legal Sex Female 1:09 AM SPEECH THERAPIST 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
--- OUTSIDE RECORDS SUMMARY | 2024-08-09 23:40 | XMS_ITS | Encounter Summary ---
Author Organization [facility] Facility Care Team Providers Care Dairy Cattle Farmer Name Role Phone Unavailable Primary Care Provider Unavailabl e Encounter Details Date Type Department Care Team (Late st Contact Info) Description 02/13/2008 - 02/13/2008 11:59 PM CDT Hospital Encounter [facility] Dexter Joy MD [address] [place] [address] Social History Tobacco Use Types Packs/Day Years Used Date Smoking Tobacco: Never Assessed Comments Unknown Sex and Gender Information Value Date Recorded Sex Assigned at Not on file Legal Sex Female 1:09 AM CLINICAL RESEARCH ADMINISTRATOR Gender Identity Not on file Sexual Orientation Not on file documented as of this encounter Plan of Treatment Not on file documented as of this encounter Visit Diagnoses Not on filedocumented in this encounter
--- OUTSIDE RECORDS SUMMARY | 2024-08-09 23:40 | XMS_ITS | Encounter Summary ---
Author Organization [facility] Facility Care Team Providers Care Measuring Machine Operator Name Role Phone Unavailable Primary Care Provider Unavailabl e Encounter Details Date Type Department Care Team (Latest Contact Info) Description 09/30/2008 2:37 AM VISUAL DESIGNER - 09/30/2008 4:23 AM VISUAL DESIGNER Hospital Encounter [facility] Dexter Joy MD [address] [place] [address] Other current maternal conditions classifiable elsewhere, antepartum Social History Tobacco Use Types Packs/Day Years Used Date Smoking Tobacco: Never Assessed Comments Unknown Sex and Gender Information Value Date Recorded Sex Assigned at Not on file Legal Sex Female 1:09 AM VISUAL DESIGNER Gender Identity Not on file Sexual Orientation Not on file documented as of this encounter Plan of Treatment Not on file documented as of this encounter Visit Diagnoses Diagnosis Other current maternal conditions classifiable elsewhere, antepartum documented in this encounter
--- OUTSIDE RECORDS SUMMARY | 2024-08-09 23:40 | XMS_ITS | Encounter Summary ---
Author Organization [facility] Facility Care Team Providers Care Associate Faculty Name Role Phone Kelly Olson NP Primary Care Provider +1- [phone] Encounter Details Date Type Department Care Team (Late st Contact Info) Description 04/17/2011 - 04/17/2011 11:59 PM T Hospital Encounter [facility] Yesy Haro MD [address] [facility] [address] [place] [address] Hypothyroidism; Vitamin D deficiency; Impaired fasting glucose; Other and unspecified hyperlipidemia Social History Tobacco Use Types Packs/Day Years Used Date Smoking Tobacco: Never Assessed Comments Unknown Sex and Gender Information Value Date Recorded Sex Assigned at Not on file Legal Sex Female 1:09 AM TRANSPLANT WORKER Gender Identity Not on file Sexual Orientation Not on file documented as of this encounter Plan of Treatment Not on file documented as of this encounter Visit Diagnoses Diagnosis Hypothyroidism Unspecified hypothyroidism Vitamin D deficiency Impaired fasting glucose Other and unspecified hyperlipidemia documented in this encounter Care Teams Associate Faculty Relationship Specialty [place] [address] [facility] [address] [place] [address] PCP - General 11/07/10 09/14/12 documented as of this encounter
--- OUTSIDE RECORDS SUMMARY | 2024-08-10 | XMS_ITS | Clinical Summary ---
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 Active citalopram (CeleXA) 40 mg tablet Take 40 mg by mouth daily. Active Social History Tobacco Use Types Packs/Day Years Used Date Smoking Tobacco: Never Sex and Gender Information Value Date Recorded Sex Assigned at Not on file Gender Identity Not on file Sexual Orientation Not on file Last Filed Vital Signs Vital Sign Reading Time Taken Comments Blood Pressure 126/61 03/08/2019 11:50 AM CDT Pulse 69 03/08/2019 11:50 AM CDT Temperature 36.4 ??C (97.6 ??F) 03/08/2019 11:50 AM C DT Respiratory Rate 14 03/08/2019 11:50 AM CDT Oxygen Saturation 99% 03/08/2019 11:50 AM CDT Inhaled Oxygen Concentration - - Weight 89.8 kg (198 lb) 03/08/2019 11:50 AM CDT Height 165.1 cm (5' 5 ) 03/08/2019 11:50 AM CDT Body Mass Index 32.95 03/08/2019 11:50 AM CDT Plan of Treatment Health Maintenance Due Date Last Done Comments DTAP/TDAP/TD VACCINES (1 - Tdap) 02/01/1992 HEPATITIS B VACCINES (1 of 3 - 19+ 3-dose series) 02/01/1992 CERVICAL CANCER SCREENING 2003 BREAST CANCER SCREENING 2013 COLORECTAL SCREENING 2018 Colorectal Cancer Screening 2018 FIT-DNA Q 3 years 2018 FIT/FOBT Q 1 year 2018 Flex Sig/CT Colonography Q 5 years 2018 ZOSTER VACCINE (1 of 2) 2023 INFLUENZA VACCINE (#1) 2024 PNEUMOCOCCAL VACCINE 0-64 YEARS Aged Out No longer eligible based on patient's age to complete this topic Care Teams Pediatric Care Coordinator Relationship Specialty [place] [address] [place] [address] PCP - General Family Practice 03/08/19
--- OUTSIDE RECORDS SUMMARY | 2024-08-10 | XMS_ITS | Encounter Summary ---
Author Organization [facility] Address [address] [place] [address] Care Team Providers Care Hairspring Vibrator Name Role Phone Brittani Agosto MD Primary Care Provider Reason for Visit * Reason Comments Body fluid exposure Encounter Details Date Type Department Care Team (Latest Contact Info) Description 03/08/2019 11:44 AM CDT - 03/08/2019 12:14 PM CDT Hospital Encounter [facility] [address] [place] [address] Exposure to blood-borne pathogen (Primary Dx); Needle stick injury of finger of left hand, initial encounter; Employee exposure to blood Discharge Disposition: Home or Self Care Social History Tobacco Use Types Packs/Day Years [...] Mass Index 32.95 03/08/2019 11:50 AM CDT documented in this encounter Discharge Instructions * Discharge Instructions* Stefan Lopez PA - 03/08/2019 12:11 PM CDT [facility] Pipe Supervisor [phone] Work Status Report Date of Injury: 03/08/2019 Visit Date: 03/08/2019 Time Out: 12:06 PM Patient Information: Patient Name: : Deejay Paz 1975 Employer Information: Employer Name: [employer] Patient Description of Incident: patient was stuck in left index finger while picking up a needle that she thought was capped while cleaning up after procedure. Chief Complaint Patient presents with Body fluid exposure Diagnosis: ICD-10-CM ICD-9-CM 1. Exposure to blood-borne pathogen Z77.21 V15.85 2. Needle stick injury of finger of left hand, initial encounter S61.239A 883.0 W27.3XXA 3. Employee exposure to blood Z57.8 V15.85 Work Status: Regular duty Restrictions (if applicable): No limitations After Care Instructions (if applicable): Orders Placed This Encounter ALT HEPATITIS B SURFACE AB, QUAL HEPATITIS C ANTIBODY W REFLEX HIV RAPID SCREEN Next Appointment Date: 03/22/2019 Anticipated Date of Maximum Medical Improvement: 09/08/2019 If your condition worsens, call the treating [facility] at [phone] if your injury/illness requires emergency treatment, contact your employer for instruction and authorization to treat at an emergency room. Employer Notice The prescribed activity recommendations are suggested guidelines to assist in the patient's treatment and rehabilitation. Your employee has been informedthat the activity prescription is expected to be followed at work and away from work. I understand the above instructions: Verbal Confirmation Return Confirmation Provider: VLAD Varma 03/08/2019 X Patient or Guardian: Deejay Paz 03/08/2019 X Contact us if you have any questions or problems. The clinic will call within one to 2 days to report lab results currently not available (call the clinic if you have not heard from us in that time frame). Certain precautions must be maintained for 6 months until all blood work has been reported asnegative. Precautions include no sharing of toothbrushes or razors. Precautions also include practicing safe sex until instructed otherwise by [facility]. Follow up is in (appropriate interval per checklist) for further testing per post exposure protocol. * Attachments The following attachments cannot be sent through Care Everywhere. 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 citalopram (CeleXA) 40 mg tablet Take 40 mg by mouth daily. documented as of this encounter Nursing Notes * Manda Griffin RN - 03/08/2019 11:47 AM CDT Patient presents to the with a new work comp injury. The patient works at [employer]. She was reaching for what she thought was a capped Lidocaine syringe the cap fell off and she and was stuck in her left index finger. The source patient is Margareth Jaime and exposure panel will be drawn on that patient also. 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 female, presents with fingerstick to left index finger that happened about 2 hours ago while cleaning up a field after a procedure. Patient believed the needle was cappedand accidentally stuck the distal finger pad of her left index finger. Patient squeezed blood and cleansed aggressively and then has come to this clinic for evaluation regarding blood borne pathogen exposure. Patient reports that she had a tetanus vaccination up-to-date within the past year. Patient also reports having had the hepatitis B 3 shot series and also having had reactive titers. Patientpatient's personal status is that she has negative for HIV or hepatitis to her knowledge. Patient has no health problems or liver problems. Patient denies possible due to lack of activity. Patient reports that the source of the potential blood- borne pathogen exposure has agreed to submit a sample for lab testing as well. Did injury occur at work? Yes Employer: [employer] Was the injury witnessed? No Did you report the injury? Yes If yes, to whom? Binding Nicker Prior injury in past? No Symptoms have been present for 2 hours Character/severity of symptoms: Minimal Associated symptoms include none. Aggravating factors: None Alleviating factors: none Treatments so far initiated by patient: None except cleansing Course is new onset. Past Medical History: Diagnosis Date ??? Hypothyroidism Past Surgical History: Procedure Laterality Date ??? HX CARPAL TUNNEL RELEASE ??? HX SECTION ??? HX MICRODISCECTOMY LUMBAR ??? HX ULNAR NERVE REPAIR Social History Tobacco Use ??? Smoking status: Never Smoker Substance Use Topics ??? Alcohol use: Not on file ??? Drug use: Not on file No family history on file. Patient's last menstrual period was 02/15/2019. Patient's Home Medications Current Home Medications CITALOPRAM (CELEXA) 40 MG TABLET LEVOTHYROXINE 150 MCG TABLET Medications Modified during this Encounter Medications Discontinued during this Encounter Allergies Allergen Reactions ??? Cefazolin Rash REVIEW OF SYSTEMS APPROPRIATE Review of Systems ROS as in HPI above and GEN: as above HENT: no ear pain or sore throat PULM: no wheeze or cough GI: no abdominal pain, no vomiting, no diarrhea SKIN: No rashes NEURO: no headaches PSYCH: no behavioral changes. Physical Exam Vitals: 03/08/19 1150 BP: 126/61 Pulse: 69 Resp: 14 Temp: 97.6 ??F (36.4 ??C) TempSrc: Temporal SpO2: 99% Weight: 89.8 kg (198 lb) Height: 5' 5 (1.651 m) Constitutional: Patient is alert and oriented x 3 Patient is well developed, well nourished adult Patient is in NAD Patient communicates appropriately and easily. Eye: EOMI, PERRL. No injection, edema, exudate. No periorbital erythema or edema ENT: EARS: External ears normal. Chest: Normal rise and fall. Breathing unlabored. Skin: dry, no rashes noted. There is a tiny puncture site visible in the distal finger pad of the left index finger. There is no associated erythema, edema, or tenderness. Capillary refill is less than 1 second. Extremities: No cyanosis, no edema. Neurological: no gross focal deficits UC Course and Results Orders Placed This Encounter ??? ALT ??? HEPATITIS B SURFACE AB, QUAL ??? HEPATITIS C ANTIBODY W REFLEX ??? HIV RAPID SCREEN Meds Given in UC Medications - No data to display Medical Decision Making Note: Differential Dx: DDx includes: URI, influenza, sinusitis, pneumonia, bronchitis Management: Management options include but not limited to : IV access and oral or IV/ IM medications. Case discussion with other physician _Brittani Agosto MD Data reviewed: All current, pertinent and timely studies (laboratory, imaging, and procedures) wereordered and results reviewed by VLAD Varma unless otherwise noted. Triage notes and available nursing notes reviewed. Previous medical record reviewed when available. All vital signs from the encounter reviewed PCP: Brittani Agosto MD Assessment and Plan ICD-10-CM ICD-9-CM 1. Exposure to blood-borne pathogen Z77.21 V15.85 2. Needle stick injury of finger of left hand, initial encounter S61.239A 883.0 W27.3XXA 3. Employee exposure to blood Z57.8 V15.85 PLAN: Patient counseled regarding intermittent application of cold pack and use of OTC Tylenol or ibuprofen if tolerated and no allergy. Causation: work related Work Status: Regular duty Restrictions: None Return Date: April 13, 2019 documented in this encounter Plan of Treatment Not on file documented as of this encounter Procedures Procedure Name Priority Date/Time Associated Diagnosis Comments HIV RAPID SCREEN Stat 03/08/2019 11:4 0 AM CDT HEPATITIS B SURFACE AB, QUAL Stat 03/08/2019 11:40 AM CDT HEPATITIS C ANTIBODY Stat 03/08/2019 11:40 AM CDT ALT Stat 03/08/2019 11:40 AM CDT documented in this encounter Results * HIV RAPID SCREEN (03/08/2019 11:40 AM CDT) [facility] RAPID HIV SCREEN NON-REACTI VE Non-Reacti ve 03/09/2019 2:10 AM CDT [facility] HIV-1 P24 ANTIGEN Non-Reacti ve 03/09/2019 2:10 AM CDT [facility] HIV-1 AND/OR HIV-2 ANTIBODY Non-Reacti ve 03/09/2019 2:[address] [facility] Blood 03/08/2019 11:4 0 AM CDT 03/09/2019 2:09 AM CDT Александр Moody MD CHEMISTRY ORDERABLE S [facility] CLIA# [id number] [address] [place] [address] * HEPATITIS C ANTIBODY W REFLEX (03/08/2019 11:40 AM CDT) HEPATITIS C AB NON-REACTI VE Non-reacti ve 03/08/2019 7:[address] [facility] Blood Venipuncture / Unknown 03/08/2019 11:40 AM CDT 03/08/2019 6:16 PM CDT Александр Moody MD CHEMISTRY ORDERABLE S Performing Organization Address City/[facility]/ZIP Co de Phone Number [facility] CLIA# [id number] [place] [address] * (ABNORMAL) HEPATITIS B SURFACE AB, QUAL (03/08/2019 11:40 AM CDT) HEPATITIS B SURFACE AB, QUAL Reactive(A ) Non-react yosi 03/08/2019 10:55 PM CDT [facility] Comment:Patient is considere d to be immune to infection with HBV. Blood Venipuncture / Unknown 03/08/2019 11:40 AM CDT 03/08/2019 6:19 PM CDT Александр Moody MD CHEMISTRY ORDERABLE S [facility] CLIA# [id number] [address] [place] [address] * ALT (03/08/2019 11:40 AM CDT) ALT 13 0 - 33 U/L 03/08/2019 6:44 PM CDT [facility]OR[facility] Blood Venipuncture / Unknown 03/08/2019 11:40 AM CDT 03/08/2019 6:15 PM CDT Александр Moody MD CHEMISTRY ORDERABLE S [facility] [employer] CLIA# [id number] [address] [place] [address] documented in this encounter Visit Diagnoses Diagnosis Exposure to blood-borne pathogen- Primary Needle stick injury of finger of left hand, initial encounter Employee exposure to blood Personal history of contact with and (suspected) exposure to potentially hazardous body fluids documented in this encounter Care Teams Hairspring Vibrator Relationship Specialty [place] [address] [place] [address] PCP - General Family Practice 03/08/19 documented as of this encounter
--- OUTSIDE RECORDS SUMMARY | 2024-08-10 02:05 | XMS_ITS | Clinical Summary ---
Author Organization [facility] Address [facility] [place] [address] [place] [address] Care Team Providers Care Community Health Navigator Name Role Phone Unavailable Primary Care Provider [...]
--- OUTSIDE RECORDS SUMMARY | 2024-08-10 02:05 | XMS_ITS | Encounter Summary ---
Author Organization [facility] Address [facility] [place] [address] [place] [address] Care Team Providers Care Histopathology Technician Name Role Phone Unavailable Primary Care Provider Unavailabl e Encounter Details Date Type Department Care Team (Late st Contact Info) Description 12/23/2014 Abstract [facility] [address] [place] [address] Eunice Benites MD [address] [place] [address] Social History Tobacco Use Types [...]
--- OUTSIDE RECORDS SUMMARY | 2024-08-10 02:05 | XMS_ITS ---
Author Organization 1 OF Meenakshi alexander DPM [facility] Address [facility] [address] [address] Care Team Providers Care General I Farmworker Name Role Phone Cassius Ortega Primary Care Provider Anjali Zendejas [phone] REASON FOR VISIT RT achilles tendonitis Encounters Encounter Location Date Provider Diagnosis 1 OF Meenakshi Andrade [place] [address] [address] [address] 03/06/2024 Anjali Varela Plan Of Treatment No Information Progress Notes * Rafita ALFORDOB:[birth year] (49 yo F)Acc No.[id number]:03/06/2024 Progress Notes Patient:?Deejay ALFORD Provider:?Anjali Varela DPM :1975???Age:49 Y???Sex:Female D ate:03/06/2024 [facility] Pcp:Cassius Ortega Subjective: * Chief Complaints: * [...] Electronic signature of Rosalind Varela DPM on 08/10/2024 at 02:04 AM BEAM DYER OPERATOR Sign off status: Pending * Provider:?Anjali Varela DPM Date:?2023 Generated for Edwina marc/Deana/Yomaira on:?08/10/2024 02:04 AM BEAM DYER OPERATOR History and Physical Notes * HPI [...]
--- OUTSIDE RECORDS SUMMARY | 2024-08-10 02:05 | XMS_ITS | Encounter Summary ---
Author Organization [facility] Address [facility] [place] [address] [place] [address] Care Team Providers Care Cushion Former Name Role Phone Unavailable Primary Care Provider Unavailabl e Encounter Details Date Type Department Care Team (Late st Contact Info) Description 12/22/2003 Abstract [facility] [address] [facility] [place] [id number] Raphael Gilbert, DO [address] [place] [id number] Social History Tobacco Use Types Packs/Day Years [...]
--- OUTSIDE RECORDS SUMMARY | 2024-08-10 02:05 | XMS_ITS ---
Author Organization 1 OF Meenakshi alexander [facility] Address [address] [facility] [address] [place] [address] Care Team Providers Care Igniter Assembler Name Role Phone Cassius Ortega Primary Care Provider Anjali Zendejas Unavailable [phone] Allergies Allergen (clinical drug ingredient) Drug/Non Drug [...] Date Provider Diagnosis 1 OF Meenakshi Andrade [facility] [address] [facility] [address] [place] [address] 02/02/2024 Anjali Varela Right Achilles tendinitis M76.61 [...] month,Perlita barger on: Progress Notes * Rafita ALFORDOB:[birth year] (49 yo F)Acc No.[id number]:02/02/2024 Progress Notes Patient:?Deejay ALFORD Provider:?Anjali Varela DPM :1975???Age:49 Y???Sex:Female D ate:02/02/2024 [facility] Pcp:Cassius Ortega Subjective: * Chief Complaints: * [...] M76.61 (Primary)??? Plan: * Treatment: * Procedure Codes:?24853 X-RAY FOOT (3 views), Modifiers: RT * Follow Up:?1 month,prn * Images: * Sign off status: Completed true * Provider:Helga Varela DPM Date:?2023 Generated for Edwina marc/Deana/Yomaira on:?08/10/2024 02:05 AM DIRECTOR OF EARLY CHILDHOOD EDUCATION History and Physical Notes * HPI (History [...]
--- OUTSIDE RECORDS SUMMARY | 2024-08-10 02:05 | XMS_ITS | Encounter Summary ---
Author Organization [facility] Address [facility] [place] [address] [place] [address] Care Team Providers Care Enterprise Mobility Architect Name Role Phone Unavailable Primary Care Provider Unavailabl e Encounter Details Date Type Department Care Team (Late st Contact Info) Description 10/28/2014 Abstract [facility] [address] [place] [address] Eunice Benites MD [address] [place] [address] Social History Tobacco Use Types [...]
--- OUTSIDE RECORDS SUMMARY | 2024-08-10 02:05 | XMS_ITS | Patient Health Record ---
Author Organization 1 OF Meenakshi alexander [facility] Address [address] [place] [address] Care Team Providers Care Earth Auger Operator Name Role Phone Cassius Ortega Primary Care Provider Anjali Zendejas Unavailable [phone] Allergies Allergen (clinical drug ingredient) Drug/Non Drug [...] Problem Status W/U Status Risk Notes Problem [id number] Gastrocnemius equinus of left lower extremity (M21.6X2) Active confirmed Vital Signs Height 65 in 02/02/2024 Weight 200 lbs 02/02/2024 BMI 33.28 kg/m2 02/02/2024 Encounters Encounter Location Date Provider Diagnosis 1 OF Meenakshi Andrade [facility] [address] [place] [address] 02/02/2024 Anjali Varela Right Achilles tendinitis M76.61 [...] Start Date Coverage End Date [address] [place] [address] [id number] Deejay Paz Self - patient is the insured Medical (General) History Medical History History ICD Code Anemia, GERD, high blood pressure, thyro id problems Surgical History Surgery Date(Month/Year) hysterectomy
--- OUTSIDE RECORDS SUMMARY | 2024-08-10 02:05 | XMS_ITS | Encounter Summary ---
Author Organization [facility] Address [facility] [place] [address] [place] [address] Care Team Providers Care Extraction Operator Name Role Phone Unavailable Primary Care Provider Unavailabl e Encounter Details Date Type Department Care Team (Late st Contact Info) Description 06/04/2013 Abstract [facility] Emergency Services [address] [place] [address] Omar Castañeda MD [place] [address] Social History Tobacco Use Types Packs/Day Years [...]
--- OUTSIDE RECORDS SUMMARY | 2024-08-10 02:07 | XMS_ITS | Clinical Summary ---
Author Organization [facility] [address] [place] [address] Address [address] [place] [address] Care Team Providers Care Door Fitter Name Role Phone Brittani Agosto MD Primary Care Provider Allergies Active Allergy Reactions Criticality Noted Date Comments Cefazolin Rash Low 03/08/2019 Medications Medication Sig Dispensed Refills Start Date End Date Status levothyroxine 150 mcg tablet Take 150 mcg by mouth daily cheese blender. Active citalopram (CeleXA) 40 mg tablet Take [...] age to complete this topic Care Teams Door Fitter Relationship Specialty [place] [address] [place] [address] PCP - General Family Practice 03/08/19
--- OUTSIDE RECORDS SUMMARY | 2024-08-10 02:07 | XMS_ITS | Encounter Summary ---
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 DEEJAY ALFORD (Llamas: [id number]) - [phone] Wegovy 0.25MG/0.5ML auto-injectors Status: Created: August 04, 2023 By [id number] S MECHANIC documented in this encounter Plan of Treatment Not on file documented as of this encounter Visit Diagnoses Not on filedocumented in this encounter Care Teams Honey Grader And Blender Relationship Specialty [place] [address] [facility] [address] [address] PCP - General Family Medicine 02/21/19 Roya Andre PA [address] [place] [address] [facility] [address], [place] [address] Physician Pot Puncher Orthopedic Surgery 04/09/22 Alina Higginbotham LCSW [address] [facility] [address] Partnership Development Manager Infectious Diseases 10/08/22 documented as of this encounter
--- OUTSIDE RECORDS SUMMARY | 2024-08-10 02:07 | XMS_ITS | Encounter Summary ---
Author Organization [facility] Address [address] [facility] [facility] [address] [place] [address] Phone Care Team Providers Care Clay Press Operator Name Role Phone Cassius Ortega NP Primary Care Provider [phone] Roya Andre Unavailable [phone] Encounter Details Date Type Department Care Team (Late st Contact Info) Description 12/25/[address] 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
--- OUTSIDE RECORDS SUMMARY | 2024-08-10 02:07 | XMS_ITS | Encounter Summary ---
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 [address] Fashion Marketer Infectious Diseases 10/08/22 documented as of this encounter
--- OUTSIDE RECORDS SUMMARY | 2024-08-10 02:07 | XMS_ITS | Encounter Summary ---
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
--- OUTSIDE RECORDS SUMMARY | 2024-08-10 02:07 | XMS_ITS | Encounter Summary ---
Author Organization [facility] Healthcare Address [address] [place] [address] Care Team Providers Care Physical Science Technician Name Role Phone Cassius Ortega NP Primary Care Provider [phone] Roya Andre Unavailable [phone] Reason for Referral * MRI/CAT/PET Scan (Routine) - Closed Specialty Diagnoses / Procedures [facility] Referred To Contact Radiology Diagnoses Other nonspecific abnormal finding of lung field Procedures [place] [address] [address] Phone: tel: fax: [address] [address] Referral ID Status Reason Start Date Expiration Date Visits Re quested Visits Authorized [id number] Closed 10/07/2022 04/05/2023 1 1 Reason for Visit * MRI/CAT/PET Scan (Routine) - Closed Specialty Diagnoses / Procedures Referred By Cara alvarez Referred To Contact Radiology Diagnoses Other nonspecific abnormal finding of lung field Procedures [place] [address] [place] [address] Phone: tel: fax: [facility] [address] [place] [address] Referral ID Status Reason Start Date Expiration Date Visits Re quested Visits Authorized [id number] Closed 10/07/2022 04/05/2023 1 1 Encounter Details Date Type Department Care Team (Latest Contact Info) Description 11/04/2022 11:30 AM CDT - 11/04/2022 11:59 PM CDT Hospital Encounter 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
--- OUTSIDE RECORDS SUMMARY | 2024-08-10 02:07 | XMS_ITS | Encounter Summary ---
Author Organization [facility] Healthcare Address [address] [place] [address] Care Team Providers Care Business Test Analyst Name Role Phone Cassius Ortega NP Primary Care Provider [phone] Roya Andre Unavailable [phone] Reason for Referral * Diagnostic Imaging (Routine) - Closed Specialty Diagnoses / Procedures Referred By Cara alvarez Referred To Contact Diagnoses Encounter for screening mammogram for malignant neoplasm of breast Procedures SCREENING MAMMOGRAM BILATERAL W Oma Goff NP Phone: tel: fax: [facility] Referral ID Status Reason Start Date Expiration Date Visits Re quested Visits Authorized [id number] Closed 12/23/2022 01/22/2024 1 1 Reason for Visit * Diagnostic Imaging (Routine) - Closed Specialty Diagnoses / Procedures Referred By Cara alvarez Referred To Contact Diagnoses Encounter for screening mammogram for malignant neoplasm of breast Procedures SCREENING MAMMOGRAM BILATERAL W Oma Goff NP Phone: tel: fax: [facility] Referral ID Status Reason Start Date Expiration Date Visits Re quested Visits Authorized [id number] Closed 12/23/2022 01/22/2024 1 1 Encounter Details Date Type Department Care Team (Latest Contact Info) Description 01/29/2023 7:53 AM CDT - 01/29/2023 11:59 PM CDT Hospital Encounter 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 Oma Crespo BLANKET BINDER IMG MAMMO PROCEDURES Fi nal Result documented in this encounter Visit Diagnoses Diagnosis Encounter for screening mammogram for malignant neoplasm of breast documented in this encounter Care Teams Business Test Analyst Relationship Specialty Start [place] [address] [address] [facility] [address] [place] [address] PCP - General Family Medicine 02/21/19 Roya Andre PA 4 [facility] [address], [place] [address] Physician Head Strength And Conditioning Coach Orthopedic Surgery 04/09/22 Alina Higginbotham, [facility] 620 [facility] [address] Wallcovering Texturer Infectious Diseases 10/08/22 documented as of this encounter
--- OUTSIDE RECORDS SUMMARY | 2024-08-10 02:07 | XMS_ITS | Encounter Summary ---
Author Organization [facility] Address [address] [place] [address] Care Team Providers Care Liberal Arts Dean Name Role Phone Brittani Agosto MD Primary Care Provider Reason for Visit * Reason Comments Body fluid exposure Encounter Details Date Type Department Care Team (Latest Contact Info) Description 03/08/2019 11:44 AM CDT - 03/08/2019 12:14 PM CDT Hospital Encounter [facility] [address] [place]áz[place] [address] [...] Lopez PA - 03/08/2019 12:11 PM CDT [facility] Cement Kiln Operator [phone] Work Status Report Date of Injury: 03/08/2019 Visit Date: 03/08/2019 Time Out: 12:06 PM Patient Information: Patient Name: : Deejay Paz 1975 Employer Information: Employer Name: [employer] Patient Description of Incident: patient was stuck [...] If your condition worsens, call the treating [facility] at [phone] if your injury/illness requires emergency treatment, contact [...] practicing safe sex until instructed otherwise by [facility]. Follow up is in (appropriate interval per checklist) for further testing per post exposure protocol. * Attachments The following attachments cannot be sent through Care Everywhere. * Exposure: Blood and Body Fluids (Citizen Of [place]) * Puncture Wounds (Citizen Of [place]) documented in this encounter Medications at Time of Discharge Medication Sig Dispensed Refills Start Date End Date levothyroxine 150 mcg tablet Take 150 mcg by mouth daily supervisor fleshing. citalopram (CeleXA) 40 mg tablet Take 40 mg by mouth daily. documented as of this encounter Nursing Notes * Manda Griffin RN - 03/08/2019 11:47 AM CDT Patient presents to the with a new work comp injury. The patient works at [employer]. She was reaching for what she thought was a capped Lidocaine syringe the cap fell off and she and was stuck in her left index finger. The source patient is Margareth Jaime and exposure panel will be drawn on that patient also. 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 Yes Employer: [employer] Was the injury witnessed? No Did you report the injury? Yes If yes, to whom? [employer] Developer Prior injury in past? No Symptoms have [...] HIV RAPID SCREEN (03/08/2019 11:40 AM CDT) [facility] RAPID HIV SCREEN NON-REACTI VE Non-Reacti ve 03/09/2019 2:10 AM CDT [facility] [employer] [facility] HIV-1 P24 ANTIGEN Non-Reacti ve 03/09/2019 2:10 AM CDT [facility] [employer] [facility] HIV-1 AND/OR HIV-2 ANTIBODY Non-Reacti ve 03/09/2019 2:10 AM CDT [facility] Blood 03/08/2019 11:4 0 AM CDT 03/09/2019 2:09 AM CDT Александр Moody MD CHEMISTRY ORDERABLE S [facility] CLIA# [id number] [address] [place] [address] * HEPATITIS C ANTIBODY W REFLEX (03/08/2019 11:40 AM CDT) HEPATITIS C AB NON-REACTI VE Non-reacti ve 03/08/2019 7:02 PM CDT [facility] Blood Venipuncture / Unknown 03/08/2019 11:40 AM CDT 03/08/2019 6:16 PM CDT Александр Moody MD CHEMISTRY ORDERABLE S Performing Organization Address City/[facility]/ZIP Co de Phone Number [facility] CLIA# [id number] [address] [place] [address] * (ABNORMAL) HEPATITIS B SURFACE AB, QUAL (03/08/2019 11:40 AM CDT) HEPATITIS B SURFACE AB, QUAL Reactive(A ) Non-react yosi 03/08/2019 10:55 PM CDT [facility] Comment:Patient is considere d to be immune to infection with HBV. Blood Venipuncture / Unknown 03/08/2019 11:40 AM CDT 03/08/2019 6:19 PM CDT Александр Moody MD CHEMISTRY ORDERABLE S [facility] [employer] [facility] CLIA# [id number] [address] [place] [address] * ALT (03/08/2019 11:40 AM CDT) ALT 13 0 - 33 U/L 03/08/2019 6:44 PM CDT [facility] Blood Venipuncture / Unknown 03/08/2019 11:40 AM CDT 03/08/2019 6:15 PM CDT Александр Moody MD CHEMISTRY ORDERABLE S [facility] [employer] [facility] CLIA# [id number] [address] [place] [address] documented in this encounter Visit Diagnoses Diagnosis Exposure to blood-borne pathogen- Primary Needle stick injury of finger of left hand, initial encounter Employee exposure to blood Personal history of contact with and (suspected) exposure to potentially hazardous body fluids documented in this encounter Care Teams Liberal Arts Dean Relationship Specialty Start [place] [address] [address] [place] [address] PCP - General Family Practice 03/08/19 documented as of this encounter
--- OUTSIDE RECORDS SUMMARY | 2024-08-10 02:07 | XMS_ITS | Encounter Summary ---
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 Gender Identity Not on file Sexual Orientation [...] BLOOD ORDERABLES Final Res ult [place] [address] [address] Department [place] [address] documented in this encounter Visit Diagnoses Diagnosis Primary hypertension Unspecified essential hypertension documented in this encounter Care Teams Research Interviewer Relationship Specialty [place] [address] [address] [place] [address] PCP - General Family Medicine 02/21/19 Roya Andre PA [address] [place] [address] [facility] [address] [place] [address] Physician Photography Coordinator Orthopedic Surgery 04/09/22 Alina Higginbotham LCSW [address] [facility] [address] Customer Service Rep Infectious Diseases 10/08/22 documented as of this encounter
--- OUTSIDE RECORDS SUMMARY | 2024-08-10 02:07 | XMS_ITS | Encounter Summary ---
Author Organization [facility] Address [address] 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 In an effort to expedite patient care, this note has not been adjusted for typographical, grammatical, and syntax by a trained ophthalmic medical technician. Portions of this note have been copied [...] hypertension documented in this encounter Care Teams It Help Desk Analyst Relationship Specialty [place] [address] [address] PCP - General Family Medicine 02/21/19 Roya Andre PA [address] [place] [address] [address] [address] Physician Director Apparel Orthopedic Surgery 04/09/22 Alina Higginbotham, PHOTOGRAPHIC PRINTER 620 [facility] [address] Arts Manager Infectious Diseases 10/08/22 documented as of this encounter
--- OUTSIDE RECORDS SUMMARY | 2024-08-10 02:07 | XMS_ITS | Encounter Summary ---
Author Organization [facility] Address [address] [facility] [address] [place] [address] Care Team Providers Care Armature Winder Automotive Name Role Phone Cassius Ortega NP Primary Care Provider [phone] Roya Andre Unavailable [phone] Encounter Details Date Type Department Care Team (Late st Contact Info) Description 03/17/2023 Orders Only [place] Site Promotion Agent [address] [facility] [place] [address] [place] [address] Charly Olson MD [address] [place] [address] [address] Social History Tobacco Use Types Packs/Day Years [...] on file 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
--- OUTSIDE RECORDS SUMMARY | 2024-08-10 02:07 | XMS_ITS | Encounter Summary ---
Author Organization [facility] Address [address] [facility] [address] [place] [address] Phone Care Team Providers Care Child Development Associate Teacher Name Role Phone Cassius Ortega NP Primary Care Provider [phone] Roya Andre Unavailable [phone] Encounter Details Date Type Department Care Team (Late st Contact Info) Description 01/08/2023 Orders Only [facility] Obstetrics and Gynecology [address] 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 Gender Identity Not on file Sexual [...] on filedocumented in this encounter Care Teams Child Development Associate Teacher Relationship Specialty Start [place] [address] JA[address] ARN[address] [facility] [address] [address] PCP - General Family Medicine 02/21/19 Roya Andre PA 4 [facility] [address] [address] Physician Gasket Inspector Orthopedic Surgery 04/09/22 Alina Higginbotham, [facility] 620 [facility] [address] Bridge Instructor Infectious Diseases 10/08/22 documented as of this encounter
--- OUTSIDE RECORDS SUMMARY | 2024-08-10 02:07 | XMS_ITS | Encounter Summary ---
Author Organization [facility] Healthcare Address [address] [place] [address] Care Team Providers Care Financial Planning Advisor Name Role Phone Cassius Ortega NP Primary Care Provider [phone] Roya Andre Unavailable [phone] Reason for Visit * Reason Onset Date Comments Documentation 04/28/2024 Encounter Details Date Type Department Care Team (Late st Contact Info) Description 04/28/2024 Telephone Family Care at [address] [address] Cassius Ortega NP [address] [place] [address] [address] Documentation Social History Tobacco Use [...] on file Legal Sex Female 1:09 AM 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 ([place]: [id number]) Rx #: [id number] documented in this encounter Plan of Treatment Not on file documented as of this encounter Visit Diagnoses Not on filedocumented in this encounter Care Teams Financial Planning Advisor Relationship Specialty [place] [address] [address] [place] [address] PCP - General Family Medicine 02/21/19 Roya Andre PA [address] [place] [address] [address], [place] [address] Physician Return Clerk Orthopedic Surgery 04/09/22 Alnia Higginbotham, REHABILITATION CASEWORKER 620 [facility] [address] Unit Control Worker Infectious Diseases 10/08/22 documented as of this encounter
--- OUTSIDE RECORDS SUMMARY | 2024-08-10 02:07 | XMS_ITS | Referral Summary ---
Author Organization [facility] Address [address] [place] [address] Care Team Providers Care Marine Mammal Trainer Name Role Phone Cassius Ortega NP Primary Care Provider Roya Andre Unavailable [phone] Encounters Date Type Department Care Team Description 08/03/2024 9:02 PM AMMONIA REFRIGERATION TECHNICIAN - 08/04/2024 12:58 AM AMMONIA REFRIGERATION TECHNICIAN Emergency [facility] Emergency Department [address] [place] [address] Corby Mills MD Knight, Caleb, MD Carpal tunnel syndrome of right wrist (Primary Dx); Wrist swelling, right Discharge Disposition: Discharge to home or self care 08/03/2024 2:55 PM AMMONIA REFRIGERATION TECHNICIAN Ancillary Procedure [facility] Imaging at [address] [address] Swelling of right hand 08/03/2024 2:50 PM AMMONIA REFRIGERATION TECHNICIAN Ancillary Procedure [facility] Imaging at [address] [address] Swelling of right hand 08/03/2024 2:15 PM AMMONIA REFRIGERATION TECHNICIAN Office Visit [facility] Convenient Care at [address] [address] Jane Petty NP Swelling of right hand (Primary Dx); Pain and swelling of right wrist 08/03/2024 Nurse Triage Family Care at [address] [address] Cassius Ortega, NAWAF from Last 3 Months Allergies Active Allergy Reactions Criticality Noted Date Comments Cefazolin Blisters,Redness High Tsieqtt-Cal-Cbj Reductase Inhibitors Muscle pain,Joint pain Medium 03/26/2022 [...] have initiated in order for CPAP at [facility] but I would like her to be [...] (08/11/2018): Added automatically from request for surgery [id number] Arthritis of right acromioclavicular joint 08/11 Overview (08/11/2018): Added automatically from request for surgery [id number] Impingement syndrome of right shoulder 9 Overview (08/11/2018): Added automatically from request for surgery [id number] Biceps tendinitis of right upper extremity 08/11 Overview (08/11/2018): Added automatically from request for surgery [id number] Bloating 01/19/2018 Assessment & Plan (01/19/2018 8:51 [...] warranted Assessment & Plan (09/09/2017 9:21 AM AMMONIA REFRIGERATION TECHNICIAN): Uncontrolled with recent stress with marriage and [...] loss Assessment & Plan (09/09/2017 9:22 AM AMMONIA REFRIGERATION TECHNICIAN): Weight is unchanged. Discussed the patient's BMI. [...] 01/09/2020 Assessment & Plan (09/09/2017 9:18 AM AMMONIA REFRIGERATION TECHNICIAN): Pap smear done. Will follow ACOG guidelines. Plan to obtain HSV, RPR, and HIV Screening for malignant neoplasm of cervix 09/09/2017 01/09/2020 Assessment & Plan (09/09/2017 9:18 AM AMMONIA REFRIGERATION TECHNICIAN): As above. 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 Not on file Last Filed Vital Signs Vital Sign Reading Time Taken Comments Blood Pressure 155/91 08/03/2024 7:29 PM AMMONIA REFRIGERATION TECHNICIAN Pulse 72 08/03/2024 7:29 PM AMMONIA REFRIGERATION TECHNICIAN Temperature 36.8 ??C (98.2 ??F) 08/03/2024 7:29 PM CS T Respiratory Rate 18 08/03/2024 5:24 PM AMMONIA REFRIGERATION TECHNICIAN Oxygen Saturation 100% 08/03/2024 7:29 PM AMMONIA REFRIGERATION TECHNICIAN Inhaled Oxygen Concentration - - Weight 99.8 kg (220 lb) 08/03/2024 5:24 PM AMMONIA REFRIGERATION TECHNICIAN Height 165.1 cm (5' 5 ) 08/03/2024 5:24 PM AMMONIA REFRIGERATION TECHNICIAN Body Mass Index 36.61 08/03/2024 5:24 PM AMMONIA REFRIGERATION TECHNICIAN Plan of Treatment Not on file Medical Devices Implanted Type Area Top Bottom Attaching Machine Operator Device Identifier Shelf Expiration Date Model / Serial / Lot [employer] Set Implant Ar[employer]rex Fibertak Biceps Sterile Latex Free [id number]-[id number] - [id number] Implanted:Qty: 1 on 04/09/2022 by Cuate Mcmullen MD at [facility] Right: Shoulder [employer] 08/01/2026 AR-3670 / / [id number] Procedures Procedure Name Priority Date/Time Associated Diagnosis Comments EGFR STAT 08/03/2024 10:19 PM AMMONIA REFRIGERATION TECHNICIAN DIFFERENTIAL AUTO STAT 08/03/2024 10: 19 PM AMMONIA REFRIGERATION TECHNICIAN CRP (ACUTE PHASE) STAT 08/03/2024 10: 19 PM AMMONIA REFRIGERATION TECHNICIAN ERYTHROCYTE SEDIMENTATION RATE STAT 08/03/2024 10:19 PM AMMONIA REFRIGERATION TECHNICIAN COMPREHENSIVE METABOLIC PANEL STAT 08/03/2024 10:19 PM AMMONIA REFRIGERATION TECHNICIAN CBC WITH AUTO DIFFERENTIAL STAT 08/03/2024 10:19 PM AMMONIA REFRIGERATION TECHNICIAN XR WRIST RIGHT 3 OR MORE VIEWS Schedule SRI, Read SRI (Appt Today, Awaiting Results) 08/03/2024 2:53 PM AMMONIA REFRIGERATION TECHNICIAN Swelling of right hand XR HAND RIGHT 3 OR MORE VIEWS Schedule SRI, Read SRI (Appt Today, Awaiting Results) 08/03/2024 2:53 PM AMMONIA REFRIGERATION TECHNICIAN Swelling of right hand SCREENING MAMMOGRAM BILATERAL W NGHIA Schedule Routine, Read Routine (OP Routine) 01/29/2023 8:17 AM CDT Encounter for screening mammogram for malignant neoplasm of breast HEPATITIS C ANTIBODY Routine 12/24/2022 2:16 PM CDT Routine screening for STI (sexually transmitted infection) COLONOSCOPY REPORT 02/25/2017 from Last 3 Months or Most Recently Relevant to Health Maintenance Results * eGFR (08/03/2024 10:19 PM AMMONIA REFRIGERATION TECHNICIAN) eGFR >90 >=60 mL/min/1. 73 m2 Comment: [...] reviewed 2021. Blood 08/03/2024 10:1 9 PM AMMONIA REFRIGERATION TECHNICIAN 08/03/2024 10:27 PM AMMONIA REFRIGERATION TECHNICIAN us Andrea Martinez MD LAB BLOOD ORDERABLES Final Res ult [facility] [place] [address] * (ABNORMAL) Differential, auto (08/03/2024 10:19 PM AMMONIA REFRIGERATION TECHNICIAN) Neutrophil abs 6.0 1.5 - 6.5 K/cumm Imm gran abs 0.0 0.0 - 0.1 K/cumm [facility] Lymphocyte abs 3.8(H) 0.8 - 3.3 K/cumm [facility] Monocyte abs 0.9(H) 0.2 - 0.8 K/cumm [facility] Eosinophil abs 0.1 0.0 - 0.5 K/cumm [facility] Basophil abs 0.0 0.0 - 0.1 K/cumm [facility] Neutrophil pct 55.4 % [facility] Comment: Interpretive Data Percent cell count reference ranges are not reported, since discordance with absolute values may lead to misinterpretation of CBC data. Current Interpretive Data was last revised on 2017. Imm gran pct 0.3 % [facility] Comment: Interpretive Data Percent cell count reference ranges are not reported, since discordance with absolute values may lead to misinterpretation of CBC data. Current Interpretive Data was last revised on 2017. Lymphocyte pct 34.8 % [facility] Comment: Interpretive Data Percent cell count reference ranges are not reported, since discordance with absolute values may lead to misinterpretation of CBC data. Current Interpretive Data was last revised on 2017. Monocyte pct 8.3 % [facility] Comment: Interpretive Data Percent cell count reference ranges are not reported, since discordance with absolute values may lead to misinterpretation of CBC data. Current Interpretive Data was last revised on 2017. Eosinophil pct 0.8 % [facility] Comment: Interpretive Data Percent cell count reference ranges are not reported, since discordance with absolute values may lead to misinterpretation of CBC data. Current Interpretive Data was last revised on 2017. Basophil pct 0.4 % [facility] Comment: Interpretive Data Percent cell count reference ranges are not reported, since discordance with absolute values may lead to misinterpretation of CBC data. Current Interpretive Data was last revised on 2017. Blood 08/03/2024 10:1 9 PM AMMONIA REFRIGERATION TECHNICIAN 08/03/2024 10:27 PM AMMONIA REFRIGERATION TECHNICIAN us Andrea Martinez MD LAB BLOOD ORDERABLES Final Res ult [facility] [place] [address] * (ABNORMAL) CBC with auto differential (08/03/2024 10:19 PM AMMONIA REFRIGERATION TECHNICIAN) WBC 10.8(H) 3.8 - 9.9 K/cumm Hgb 11.7(L) 11.9 - 15.5 g/dL [facility] Hct 34.8(L) 35.6 - 45.5 % [facility] Plt 275 150 - 400 K/cumm [facility] MPV 9.0(L) 9.1 - 12.3 fL [facility] RBC 4.00 3.90 - 5.20 M/cumm [facility] MCV 87.0 81.3 - 96.4 fL [facility] MCH 29.3 27.1 - 33.3 pg [facility] MCHC 33.6 32.3 - 35.7 g/dL [facility] RDW CV 13.4 11.1 - 14.9 % [facility] RDW SD 41.9 35.7 - 48.1 fL [facility] NRBC abs 0.00 0.00 - 0.01 K/cumm [facility] Blood 08/03/2024 10:1 9 PM AMMONIA REFRIGERATION TECHNICIAN 08/03/2024 10:27 PM AMMONIA REFRIGERATION TECHNICIAN Andrea Martinez MD LAB BLOOD ORDERABLES Final Res ult Performing Organization Address [facility] Co de Phone Number [facility] [place] [address] * Erythrocyte sedimentation rate (08/03/2024 10:19 PM AMMONIA REFRIGERATION TECHNICIAN) Erythrocyte sedimentation rate 21 1 - 30 mm/hr Blood 08/03/2024 10:1 9 PM AMMONIA REFRIGERATION TECHNICIAN 08/03/2024 10:27 PM AMMONIA REFRIGERATION TECHNICIAN Andrea Martinez MD LAB BLOOD ORDERABLES Final Res ult Performing Organization Address [facility] de Phone Number [facility] [place] [address] * (ABNORMAL) CRP (acute phase) (08/03/2024 10:19 PM AMMONIA REFRIGERATION TECHNICIAN) CRP 13.7(H) <=10.0 mg/L Blood 08/03/2024 10:1 9 PM AMMONIA REFRIGERATION TECHNICIAN 08/03/2024 10:27 PM AMMONIA REFRIGERATION TECHNICIAN us Andrea Martinez MD LAB BLOOD ORDERABLES Final Res ult [facility] [place] [address] * Comprehensive metabolic panel (08/03/2024 10:19 PM AMMONIA REFRIGERATION TECHNICIAN) Sodium 140 135 - 145 mmol/L Potassium, pl 4.1 3.3 - 4.9 mmol/L [facility] Chloride 104 97 - 110 mmol/L [facility] CO2 26 22 - 32 mmol/L [facility] Anion gap 10 2 - 15 mmol/L [facility] BUN 14 6 - 25 mg/dL [facility] Creatinine 0.67 0.60 - 1.10 mg/dL [facility] Glucose 102 70 - 199 mg/dL [facility] Comment: Interpretive Data Fasting glucose [...] 2022. Calcium 9.9 8.5 - 10.3 mg/dL [facility] Bilirubin, total 0.3 0.1 - 1.2 mg/dL [facility] Protein, pl 7.9 6.5 - 8.5 g/dL [facility] Albumin 4.7 3.5 - 5.0 g/dL [facility] Alk phos 80 40 - 130 Units/L [facility] ALT 20 7 - 45 Units/L [facility] AST 20 10 - 45 Units/L [facility] Blood 08/03/2024 10:1 9 PM AMMONIA REFRIGERATION TECHNICIAN 08/03/2024 10:27 PM AMMONIA REFRIGERATION TECHNICIAN Andrea Martinez MD LAB BLOOD ORDERABLES Final Res ult [facility] [place] [address] * XR Wrist Right 3+ Vw (08/03/2024 2:53 PM AMMONIA REFRIGERATION TECHNICIAN) Anatomical Region Laterality Modality Upper Extremities, Wrist Right Digital Radiography 08/03/2024 4:05 PM AMMONIA REFRIGERATION TECHNICIAN Narrative 08/03/2024 4:09 PM AMMONIA REFRIGERATION TECHNICIAN EXAM DESCRIPTION: XR WRIST RIGHT 3 OR [...] D: ??08/03/2024 4:09 PM T: Report ID: [id number] Reading Location: ??[id number] Procedure Note Raphael Flores MD - 08/03/2024 [...] by Raphael Flores M.D. T: Report ID: [id number] Reading Location: [place] [address] us Jane Petty NP IMG XR PROCEDURES Final Re sult * XR Hand Right 3+ Vw (08/03/2024 2:53 PM AMMONIA REFRIGERATION TECHNICIAN) Anatomical Region Laterality Modality Upper Extremities, Hand Right Digital Radiography 08/03/2024 4:05 PM AMMONIA REFRIGERATION TECHNICIAN Narrative 08/03/2024 4:09 PM AMMONIA REFRIGERATION TECHNICIAN EXAM DESCRIPTION: XR WRIST RIGHT 3 OR [...] D: ??08/03/2024 4:09 PM T: Report ID: [id number] Reading Location: ??[id number] Procedure Note Raphael Flores MD - 08/03/2024 [...] by Raphael Flores M.D. T: Report ID: [id number] Reading Location: [id number] Jane Petty NP IMG XR PROCEDURES Final [...] interval change from the prior study. Result [facility] Oma Crespo NP IMG MAMMO PROCEDURES Fi [...] last revised on 2019. Testing performed by: [facility], [address] [place] [address]., [id number] Blood 12/24/2022 2:16 PM CDT 12/24/2022 6:01 PM CDT Oma Crespo NP LAB MICROBIOLOGY - GENE RAL ORDERABLES Edited Result - Final [facility] Department [place] [address] * COLONOSCOPY REPORT (02/25/2017) Anatomical Region Laterality Modality Other Provider Scanning GI PROCEDURE ORDERABLES Final Result from Last 3 Months or Most Recently Relevant to Health Maintenance Insurance [facility] OPEN [facility] O Advance Directives For more information, please contact: [phone] * Full Code (Latest Code Status on File) Date Activated Date Inactivated Comments 12/28/2019 12:36 PM 12/29/2019 4:32 PM Care Teams Marine Mammal Trainer Relationship Specialty [place] [address] [address] [address] PCP - General Family Medicine 02/21/19 Roya Andre PA [address] [place] [address] [address] Physician Sales Appointment Coordinator Orthopedic Surgery 04/09/22 Alina Higginbotham, [facility] [address] [facility] [address] Supervisor Advice Infectious Diseases 10/08/22
--- OUTSIDE RECORDS SUMMARY | 2024-08-10 02:07 | XMS_ITS | Encounter Summary ---
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 AIDE TEACHER Gender Identity Not on file Sexual [...] on filedocumented in this encounter Care Teams Xerox Machine Assembler Relationship Specialty [place] [address] [facility] [address] [place] [address] PCP - General Family Medicine 02/21/19 Roya Andre PA [address] [place] [address] [facility] [address] [place] [address] Physician Faculty Head Orthopedic Surgery 04/09/22 Alina Higginbotham, [facility] [address] [facility] [address] Utility Operator Yarn Infectious Diseases 10/08/22 documented as of this encounter
--- OUTSIDE RECORDS SUMMARY | 2024-08-10 02:07 | XMS_ITS | Encounter Summary ---
Author Organization [facility] Healthcare Address [address] [place] [address] Care Team Providers Care Aquatic Physiotherapist Name Role Phone Cassius Ortega NP Primary Care Provider [phone] Roya Andre Unavailable [phone] Encounter Details Date Type Department Care Team (Late st Contact Info) Description 08/04/2023 Documentation Family Care at [address] [address] Alina Roberto MA Social History [...] on file Legal Sex Female 1:09 AM WALLET ASSEMBLER Gender Identity Not on file Sexual [...] MA - 08/04/2023 3:25 PM CST Error ET ASSEMBLER documented in this encounter Plan of Treatment Not on file documented as of this encounter Visit Diagnoses Not on filedocumented in this encounter Care Teams Aquatic Physiotherapist Relationship Specialty [place] [address] [address] PCP - General Family Medicine 02/21/19 Roya Andre PA [address] [place] [address] [facility] [address], [place] [address] Physician Cylinder Block Mechanic Orthopedic Surgery 04/09/22 Alina Higginbotham LCSW [address] [place] [address] Bioinformatics Assistant Infectious Diseases 10/08/22 documented as of this encounter
--- OUTSIDE RECORDS SUMMARY | 2024-08-10 02:07 | XMS_ITS | Encounter Summary ---
Author Organization [facility] Healthcare Address [address] [place] [address] Care Team Providers Care Retail Sales Associate Name Role Phone Cassius Ortega NP Primary Care Provider [phone] Roya Andre Unavailable [phone] Reason for Visit * Reason Comments Anxiety Anxiety and stress f /u Stress Encounter Details Date Type Department Care Team (Late st Contact Info) Description 11/25/2023 8:15 AM CDT Office Visit Family Care at [address] [address] Cassius Ortega NP [address] [place] [address] [address] Anxiety (Primary Dx); Class 1 [...] on file Legal Sex Female 1:09 AM OCEAN TRANSPORTATION INTERMEDIARY Gender Identity Not on file Sexual Orientation [...] this encounter Progress Notes * Cassius Ortega, MANNEQUIN SANDER AND FINISHER - 11/25/2023 8:15 AM CDT Images from [...] seriously ill and 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 She states she has been on celexa [...] documented as of this encounter Care Teams Retail Sales Associate Relationship Specialty [place] [address] [address] [facility] [address] [place] [address] PCP - General Family Medicine 02/21/19 Roya Andre PA [address] [place] [address] [address] [address] Physician Environmental Services Aide Orthopedic Surgery 04/09/22 Alina Higginbotham, MATHEMATICS IMPROVEMENT TEACHER [address] [facility] [address] Delivery Architect Infectious Diseases 10/08/22 documented as of this encounter
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
--- OUTSIDE RECORDS SUMMARY | 2024-08-10 02:07 | XMS_ITS | Encounter Summary ---
Author Organization [facility] Address [address] [place] [address] Phone Care Team Providers Care Pattern Changer And Repairer Name Role Phone Cassius Ortega NP Primary Care Provider [phone] Roya Andre Unavailable [phone] Reason for Referral * Diagnostic Imaging (Routine) - Closed Specialty Diagnoses / Procedures Referred By Cara alvarez Referred To Contact Diagnoses Encounter for screening mammogram for malignant neoplasm of breast Procedures SCREENING MAMMOGRAM BILATERAL W Oma Goff NP Phone: tel: fax: [facility] Referral ID Status Reason Start Date Expiration Date Visits Re quested Visits Authorized [id number] Closed 12/23/2022 01/22/2024 1 1 Reason for Visit * Reason Comments Gynecologic Exam Encounter Details Date Type Department Care Team (Latest Contact Info) Description 12/23/2022 7:15 AM CDT Office Visit [facility] Obstetrics and Gynecology [address] [facility] 1st Floor [address] [place] [address] Oma Crespo NP [address] [address] 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 Consider purchasing products made in [facility] that follow good manufacturing practices. Let your [...] the Consumer Education Committee of The [place] [employer], provides current general information but not specific medical advice. It is not intended to substitute for the judgment of a person's healthcare provider. Additional information can be found at www. menopause.org. Copyright ?? 2015 The [place] Men[employer]. All rights reserved. [facility] grants permissionto healthcare providers to reproduce this MenoNote for distribution to women in their quest for good health. Made possible by donations to the [facility] Education and Research Fund. Deciding About Hormone [...] for you. This MenoNote, developed by the [facility] Education Committee of The [place] Men[employer], provides current general information but not specific medical advice. It is not intended to substitute for the judgment of a person's healthcare professional. Additional information can be found at www. menopause.org. Copyright ?? 2021 The [place] [employer]. All rights reserved. [facility] grants permissionto healthcare professionals to reproduce this MenoNote for distribution to women in their quest [facility] [employer]. Made possible by donations to the [facility] Education and Research Fund. Bioidentical Hormone Therapy: [...] Imvexxy This MenoNote, developed by The [place] [employer], provides current general information but not specific medical advice. It is not intended to substitute for the judgment of a person'shealthcare provider. Additional information can be found at www.menopause.org. Copyright ?? 2020 The [place] [employer]. All rights reserved. [facility] grants permissionto healthcare providers to reproduce this MenoNote for distribution to women in their quest for good health. Made possible by donations to the [facility] Education and Research Fund. Menopause and Sleep [...] limited, so purchase products made in the [place] under good manufacturing practices. Jwyb-ghy-dabbvcu sleep aids: Many contain diphenhydramine (eg, Benadryl) [...] from the National Heart, Lung, and Blood [place], as wellas the National Sleep Foundation website, www.sleepfoundation.org. This MenoNote, developed by the Consumer Education Committee of The [place] [employer], provides current general information but not specific medical advice. It is not intended to substitute for the judgment of a person's healthcare provider. Additional information can be found at www. menopause.org. Copyright ?? 2015 The [place] [employer]. All rights reserved. [facility] grants permissionto healthcare providers to reproduce this MenoNote for distribution to women in their quest for good health. Made possible by donations to the [facility] Education and Research Fund. Menopause and Depression [...] the MenoNotes Task Force of The [place] [employer], provides current general information but not specific medical advice. It is not intended to substitute for the judgment of a person's healthcare provider. Additional information can be found at www.menopause.org. Copyright ?? 2018 The [place] [employer]. All rights reserved. [facility] grants permissionto healthcare providers to reproduce this MenoNote for distribution to women in their quest for good health. Made possible by donations to the [facility] Education and Research Fund. Vaginal Dryness The [...] many effective treatment options for GSM, including coel-kkk-ewcxrqf and prescription therapies. First-line therapies for less severe symptoms include nonhormone vzbw-arv-gnirbtc lubricantsused as needed for sexual activity and [...] and used with the guidance of a software sales manager, physical therapist, or sex therapist. You can [...] and benefits in collaboration with their primary rn palliative care and their oncologists. Systemic estrogen therapy Systemic [...] most cases. This MenoNote, developed by the [facility] Education Committee of The [place] [employer], provides current general information but not specific medical advice. It is not intended to substitute for the judgment of a person's healthcare professional. Additional information can be found at www. menopause.org. Copyright ?? 2021 The [place] Men[employer]. All rights reserved. [facility] grants permissionto healthcare professionals to reproduce this MenoNote for distribution to women in their quest forgood health. Made possible by donations to the [facility] Education and Research Postmenopausal Osteoporosis What are [...] the [facility] Education Committee of The [place] [employer], provides current general information but not specific medical advice. It is not intended to substitute for the judgment of a person's healthcare professional. Additional information can be found at www. menopause.org. Copyright ?? 2021 The [place] Men[employer]. All rights reserved. [facility] grants permissionto healthcare professionals to reproduce this MenoNote for distribution to women in their quest [facility]. Made possible by donations to the [facility] Education and Research Fund. 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 No laboratory evidence of HIV infection. If acute HIV infection is suspected, consider testing for HIV-1 RNA. Testing performed by: , [address] [place] [address], [place] [address] Blood 12/24/2022 2:16 PM CDT 12/24/2022 6:01 PM CDT Oma Crespo NP LAB MICROBIOLOGY - GENE [facility] ORDERABLES Final Result [facility] RE[facility]ALDO ([facility]) 1 [facility] Department of Laboratories [place] [id number] * Hepatitis C antibody (12/24/2022 2:16 PM CDT) Hep C Ab Nonreactive Nonreactive [facility] REPLACED BY [facility] ([facility]) Comment: Interpretive Data Nonreactive: Antibodies to [...] last revised on 2019. Testing performed by: , [address] [place] [address], [place] [address] Blood 12/24/2022 2:16 PM CDT 12/24/2022 6:01 PM CDT Oma Crespo NP LAB MICROBIOLOGY - GENE [facility] ORDERABLES Edited Result - Final [facility] 1 [facility] [place] [address] * RPR Blood (12/24/2022 2:16 PM CDT) RPR Nonreactive Nonreactive [facility] ([place]) Comment:Testing performed by : , [address] [place] [address], [address] Blood 12/24/2022 2:16 PM CDT 12/24/2022 6:01 PM CDT Oma Crespo NP LAB MICROBIOLOGY - GENE [facility] ORDERABLES Final Result Performing Organization Address [facility]/ZIP Co de Phone Number [facility] ([place]) 1 [place] [address] * (ABNORMAL) Sureswab(R) Advanced Vaginitis Plus, TMA Endocervical/vaginal (12/23/2022 7:40 AM CDT) Pathologist [facility] SureSwab(R) ADV Bacterial vaginosis (BV), TMA POSITIVE(A) NEGATIVE [facility] Lulú species NOT DETECTED NOT DETECTED [facility] Lulú glabrata NOT DETECTED NOT DETECTED [facility] Comment: Lulú species C. albicans, C. tropicalis, C. parapsilosis, and/or C. dubliniensis can be detected, but not differentiated, in the Lulú spp. result. Trichomonas vaginalis (TV), TMA NOT DETECTED NOT DETECTED [facility] C. trachomatis RNA NOT DETECTED NOT DETECTED [facility] N. gonorrhoeae RNA NOT DETECTED NOT DETECTED [facility] Comment: For additional information, please refer to https://education.1Lay/faq/XFV030 (This link is being provided for information/ educational purposes only.) Endocervical/vag inal 12/23/2022 7:40 AM CDT 12/23/2022 8:43 PM CDT Oma Crespo NP LAB MICROBIOLOGY - GENE RAL ORDERABLES Final Result [facility] [email or web address] [address] [address] [id number] documented in this encounter Visit Diagnoses Diagnosis Encntr for senior underwriter exam (general) (routine) w abnormal findings- Primary [...] documented as of this encounter Care Teams Pattern Changer And Repairer Relationship Specialty Start [place] [address] [address] PCP - General Family Medicine 02/21/19 Roya Andre PA [address] [place] [address] [facility] [address] [address] Physician High Lead Yarder Orthopedic Surgery 04/09/22 Alina Higginbotham LCSW [address] [facility] [address] Economic Geographer Infectious Diseases 10/08/22 documented as of this encounter
--- OUTSIDE RECORDS SUMMARY | 2024-08-10 02:07 | XMS_ITS | Encounter Summary ---
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 Cassius Ortega NITROGEN OPERATOR IMG XR PROCEDURES Final Resul t documented in this encounter Visit Diagnoses Diagnosis Tuberculosis screening Screening examination for pulmonary tuberculosis documented in this encounter Care Teams Medical Grade Shoemaker Relationship Specialty [place] [address] [address] [address] PCP - General Family Medicine 02/21/19 Roya Andre PA [address] [place] [address] [address] Physician Basin Cleaner Orthopedic Surgery 04/09/22 Alina Higginbotham, TICKET SELLER 620 [facility] [address] Pattern Layout Worker Infectious Diseases 10/08/22 documented as of this encounter
--- OUTSIDE RECORDS SUMMARY | 2024-08-10 02:07 | XMS_ITS | Encounter Summary ---
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 Gender Identity Not on file [...] ORDERABLES Final Res ult Performing Organization Address City/State/[facility] [place] [address] [address] Department [place] [address] * Hepatic function panel (01/19/2023 10:03 AM [...] ORDERABLES Final Res ult Performing Organization Address City/State/[facility] Co de Phone Number [facility] [place] [address] [address] Department [place] [address] documented in this encounter Visit Diagnoses Diagnosis Hypercholesterolemia Pure hypercholesterolemia documented in this encounter Care Teams Matcher Leather Parts Relationship Specialty [place] [address] [address] [place] [address] PCP - General Family Medicine 02/21/19 Roya Andre PA 4 [facility] [address] [address] Physician Business Info Consultant Orthopedic Surgery 04/09/22 Alina Higginbotham FORESTRY AIDE 620 [facility] [address] Cotton Picker Operator Infectious Diseases 10/08/22 documented as of this encounter
--- OUTSIDE RECORDS SUMMARY | 2024-08-10 02:07 | XMS_ITS | Encounter Summary ---
Author Organization 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 Testing performed by: [facility], [address] [place] [address]., [address] Blood 12/24/2022 2:16 PM CDT 12/24/2022 6:01 PM CDT Oma Crespo NP LAB MICROBIOLOGY - GENE RAL ORDERABLES Edited Result - Final Performing Organization Address [facility]/ZIP Co de Phone Number [facility] ([place]) 1 [facility] [place] [address] * HIV 1/2 Antibody plus p24 Antigen Blood (12/24/2022 2:16 PM CDT) [facility] HIV 1/2 ab + p24 ag Nonreactive Nonreactive [facility] ([place]) Comment: Nonreactive for HIV-1 antigen and HIV-1/HIV-2 antibodies. No laboratory evidence of HIV infection. If acute HIV infection is suspected, consider testing for HIV-1 RNA. Testing performed by: [facility], [address] [place] [address]., [address] Blood 12/24/2022 2:16 PM CDT 12/24/2022 6:01 PM CDT Oma Crespo NP LAB MICROBIOLOGY - GENE RAL ORDERABLES Final Result Performing Organization Address [facility] de Phone Number [facility] 1 [place] [address] documented in this encounter Visit Diagnoses Diagnosis Screening for HIV (human immunodeficiency virus) Special screening examination for other specified viral diseases Routine screening for STI (sexually transmitted infection) Screening examination for venereal disease documented in this encounter Care Teams Insulator Technician Relationship Specialty [place] [address] [facility] [address] [address] PCP - General Family Medicine 02/21/19 Roya Andre PA [address] [place] [address] [facility] [address] [address] Physician Brim Welt Sewing Machine Operator Orthopedic Surgery 04/09/22 Alina Higginbotham LCSW [address] [facility] [address] [address] Driver Infectious Diseases 10/08/22 documented as of this encounter
--- OUTSIDE RECORDS SUMMARY | 2024-08-10 02:07 | XMS_ITS | Encounter Summary ---
Author Organization [facility] Address [address] [facility] [address] [place] [address] Phone Care Team Providers Care Shot Bagger Name Role Phone Cassius Ortega NP Primary Care Provider [phone] Roya Andre Unavailable [phone] Encounter Details Date Type Department Care Team (Late st Contact Info) Description 12/01/2022 Telephone [facility] Obstetrics and Gynecology [facility] [place] [address] Gabriela Barnes BS Social History [...] on file 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
--- OUTSIDE RECORDS SUMMARY | 2024-08-10 02:07 | XMS_ITS | Clinical Summary ---
Author Organization [facility] Address [address] [place] [address] Care Team Providers Care Medical Educator Name Role Phone Cassius Ortega NP Primary Care Provider [phone] Roya Andre Unavailable [phone] Allergies Active Allergy Reactions Criticality Noted Date Comments Cefazolin Blisters,Redness High Qwbciop-Mwn-Kvm Reductase Inhibitors Muscle pain,Joint pain Medium 03/26/2022 [...] have initiated in order for CPAP at [facility] but I would like her to be [...] (08/11/2018): Added automatically from request for surgery [id number] Arthritis of right acromioclavicular joint 08/11 Overview (08/11/2018): Added automatically from request for surgery [id number] Impingement syndrome of right shoulder 9 Overview (08/11/2018): Added automatically from request for surgery [id number] Biceps tendinitis of right upper extremity 08/11 Overview (08/11/2018): Added automatically from request for surgery [id number] Bloating 01/19/2018 Assessment & Plan (01/19/2018 8:51 [...] warranted Assessment & Plan (09/09/2017 9:21 AM AREA SAFETY MANAGER): Uncontrolled with recent stress with marriage and [...] loss Assessment & Plan (09/09/2017 9:22 AM AREA SAFETY MANAGER): Weight is unchanged. Discussed the patient's BMI. [...] 01/09/2020 Assessment & Plan (09/09/2017 9:18 AM AREA SAFETY MANAGER): Pap smear done. Will follow ACOG guidelines. Plan to obtain HSV, RPR, and HIV Screening for malignant neoplasm of cervix 09/09/2017 01/09/2020 Assessment & Plan (09/09/2017 9:18 AM AREA SAFETY MANAGER): As above. Screening mammogram, encounter for 09/09/2017 01/09/2020 Assessment & Plan (09/09/2017 9:18 AM AREA SAFETY MANAGER): RX for mammogram Mammogram abnormal 03/26/2014 0 [...] Department Care Team Description 08/03/2024 9:02 PM AREA SAFETY MANAGER - 08/04/2024 12:58 AM AREA SAFETY MANAGER Emergency [facility] Emergency Department [address] [place] [address] Corby Mills MD Knight, Caleb, MD Carpal tunnel syndrome of right wrist (Primary Dx); Wrist swelling, right Discharge Disposition: Discharge to home or self care 08/03/2024 2:55 PM AREA SAFETY MANAGER Ancillary Procedure [facility] Imaging at [address] [address] Swelling of right hand 08/03/2024 2:50 PM AREA SAFETY MANAGER Ancillary Procedure [facility] Medical [facility] Imaging at [address] [address] Swelling of right hand 08/03/2024 2:15 PM AREA SAFETY MANAGER Office Visit [facility] Convenient Care at [address] [address] Jane Petty NP Swelling of right hand (Primary Dx); Pain and swelling of right wrist 08/03/2024 Nurse Triage Family Care at [address] [phone] Cassius Ortega NP from Last 3 Months [...] on file Legal Sex Female 1:09 AM AREA SAFETY MANAGER Gender Identity Not on file Sexual [...] Comments Blood Pressure 155/91 08/03/2024 7:29 PM AREA SAFETY MANAGER Pulse 72 08/03/2024 7:29 PM AREA SAFETY MANAGER Temperature 36.8 ??C (98.2 ??F) 08/03/2024 7:29 PM CS T Respiratory Rate 18 08/03/2024 5:24 PM AREA SAFETY MANAGER Oxygen Saturation 100% 08/03/2024 7:29 PM AREA SAFETY MANAGER Inhaled Oxygen Concentration - - Weight 99.8 kg (220 lb) 08/03/2024 5:24 PM AREA SAFETY MANAGER Height 165.1 cm (5' 5 ) 08/03/2024 5:24 PM AREA SAFETY MANAGER Body Mass Index 36.61 08/03/2024 5:24 PM AREA SAFETY MANAGER Plan of Treatment Health Maintenance Due Date [...] this topic Medical Devices Implanted Type Area Building Insulation Supervisor Device Identifier Shelf Expiration Date Model / Serial / Lot [employer] Set Implant Ar[employer]rex Fibertak Biceps Sterile Latex Free Ar-3670 - [id number] Implanted:Qty: 1 on 04/09/2022 by Cuate Mcmullen MD at [facility] Right: Shoulder [employer] 08/01/2026 AR-3670 / / [id number] Procedures Procedure Name Priority Date/Time Associated Diagnosis Comments EGFR STAT 08/03/2024 10:19 PM AREA SAFETY MANAGER DIFFERENTIAL AUTO STAT 08/03/2024 10: 19 PM AREA SAFETY MANAGER CRP (ACUTE PHASE) STAT 08/03/2024 10: 19 PM AREA SAFETY MANAGER ERYTHROCYTE SEDIMENTATION RATE STAT 08/03/2024 10:19 PM AREA SAFETY MANAGER COMPREHENSIVE METABOLIC PANEL STAT 08/03/2024 10:19 PM AREA SAFETY MANAGER CBC WITH AUTO DIFFERENTIAL STAT 08/03/2024 10:19 PM AREA SAFETY MANAGER XR WRIST RIGHT 3 OR MORE VIEWS Schedule SRI, Read SRI (Appt Today, Awaiting Results) 08/03/2024 2:53 PM AREA SAFETY MANAGER Swelling of right hand XR HAND RIGHT 3 OR MORE VIEWS Schedule SRI, Read SRI (Appt Today, Awaiting Results) 08/03/2024 2:53 PM AREA SAFETY MANAGER Swelling of right hand SCREENING MAMMOGRAM BILATERAL W NGHIA Schedule Routine, Read Routine (OP Routine) 01/29/2023 8:17 AM CDT Encounter for screening mammogram for malignant neoplasm of breast HEPATITIS C ANTIBODY Routine 12/24/2022 2:16 PM CDT Routine screening for STI (sexually transmitted infection) COLONOSCOPY REPORT 02/25/2017 from Last 3 Months or Most Recently Relevant to Health Maintenance Results * eGFR (08/03/2024 10:19 PM AREA SAFETY MANAGER) eGFR >90 >=60 mL/min/1. 73 m2 Comment: [...] reviewed 2021. Blood 08/03/2024 10:1 9 PM AREA SAFETY MANAGER 08/03/2024 10:27 PM AREA SAFETY MANAGER us Andrea Martinez MD LAB BLOOD ORDERABLES Final Res ult [facility] Department [place] [address] * (ABNORMAL) Differential, auto (08/03/2024 10:19 PM AREA SAFETY MANAGER) Neutrophil abs 6.0 1.5 - 6.5 K/cumm Imm gran abs 0.0 0.0 - 0.1 K/cumm [facility] Lymphocyte abs 3.8(H) 0.8 - 3.3 K/cumm [facility] Monocyte abs 0.9(H) 0.2 - 0.8 K/cumm [facility] Eosinophil abs 0.1 0.0 - 0.5 K/cumm [facility] Basophil abs 0.0 0.0 - 0.1 K/cumm [facility] Neutrophil pct 55.4 % [facility] Comment: Interpretive Data Percent cell count reference ranges are not reported, since discordance with absolute values may lead to misinterpretation of CBC data. Current Interpretive Data was last revised on 2017. Imm gran pct 0.3 % [facility] Comment: Interpretive Data Percent cell count reference ranges are not reported, since discordance with absolute values may lead to misinterpretation of CBC data. Current Interpretive Data was last revised on 2017. Lymphocyte pct 34.8 % [facility] Comment: Interpretive Data Percent cell count reference ranges are not reported, since discordance with absolute values may lead to misinterpretation of CBC data. Current Interpretive Data was last revised on 2017. Monocyte pct 8.3 % [facility] Comment: Interpretive Data Percent cell count reference ranges are not reported, since discordance with absolute values may lead to misinterpretation of CBC data. Current Interpretive Data was last revised on 2017. Eosinophil pct 0.8 % [facility] Comment: Interpretive Data Percent cell count reference ranges are not reported, since discordance with absolute values may lead to misinterpretation of CBC data. Current Interpretive Data was last revised on 2017. Basophil pct 0.4 % [facility] Comment: Interpretive Data Percent cell count reference ranges are not reported, since discordance with absolute values may lead to misinterpretation of CBC data. Current Interpretive Data was last revised on 2017. Blood 08/03/2024 10:1 9 PM AREA SAFETY MANAGER 08/03/2024 10:27 PM AREA SAFETY MANAGER Andrea Martinez MD LAB BLOOD ORDERABLES Final Res ult [facility] Department [place] [address] * (ABNORMAL) CBC with auto differential (08/03/2024 10:19 PM AREA SAFETY MANAGER) WBC 10.8(H) 3.8 - 9.9 K/cumm Hgb 11.7(L) 11.9 - 15.5 g/dL [facility] Hct 34.8(L) 35.6 - 45.5 % [facility] Plt 275 150 - 400 K/cumm [facility] MPV 9.0(L) 9.1 - 12.3 fL [facility] RBC 4.00 3.90 - 5.20 M/cumm [facility] MCV 87.0 81.3 - 96.4 fL [facility] MCH 29.3 27.1 - 33.3 pg [facility] MCHC 33.6 32.3 - 35.7 g/dL [facility] RDW CV 13.4 11.1 - 14.9 % [facility] RDW SD 41.9 35.7 - 48.1 fL [facility] NRBC abs 0.00 0.00 - 0.01 K/cumm [facility] Blood 08/03/2024 10:1 9 PM AREA SAFETY MANAGER 08/03/2024 10:27 PM AREA SAFETY MANAGER us Andrea Martinez MD LAB BLOOD ORDERABLES Final Res ult Performing Organization Address City/[facility]/ZIP Co de Phone Number [facility] Department [place] [address] * Erythrocyte sedimentation rate (08/03/2024 10:19 PM AREA SAFETY MANAGER) Erythrocyte sedimentation rate 21 1 - 30 mm/hr Blood 08/03/2024 10:1 9 PM AREA SAFETY MANAGER 08/03/2024 10:27 PM AREA SAFETY MANAGER Andrea Martinez MD LAB BLOOD ORDERABLES Final Res ult Performing Organization Address [facility]/ZIP Co de Phone Number [facility] Department [place] [address] * (ABNORMAL) CRP (acute phase) (08/03/2024 10:19 PM AREA SAFETY MANAGER) Pathologist [facility] CRP 13.7(H) <=10.0 mg/L Blood 08/03/2024 10:1 9 PM AREA SAFETY MANAGER 08/03/2024 10:27 PM AREA SAFETY MANAGER Andrea Martinez MD LAB BLOOD ORDERABLES Final Res ult Performing Organization Address [facility] Co de Phone Number [facility] [place] [address] * Comprehensive metabolic panel (08/03/2024 10:19 PM AREA SAFETY MANAGER) Pathologist [facility] Sodium 140 135 - 145 mmol/L Potassium, pl 4.1 3.3 - 4.9 mmol/L [facility] Chloride 104 97 - 110 mmol/L [facility] CO2 26 22 - 32 mmol/L [facility] Anion gap 10 2 - 15 mmol/L [facility] BUN 14 6 - 25 mg/dL [facility] Creatinine 0.67 0.60 - 1.10 mg/dL [facility] Glucose 102 70 - 199 mg/dL [facility] Comment: Interpretive Data Fasting glucose >/= 126 [...] Calcium 9.9 8.5 - 10.3 mg/dL [facility] Bilirubin, total 0.3 0.1 - 1.2 mg/dL [facility] Protein, pl 7.9 6.5 - 8.5 g/dL [facility] Albumin 4.7 3.5 - 5.0 g/dL [facility] Alk phos 80 40 - 130 Units/L [facility] ALT 20 7 - 45 Units/L [facility] AST 20 10 - 45 Units/L [facility] Blood 08/03/2024 10:1 9 PM AREA SAFETY MANAGER 08/03/2024 10:27 PM AREA SAFETY MANAGER us Andrea Martinez MD LAB BLOOD ORDERABLES Final Res ult [facility] Department [place] [address] * XR Wrist Right 3+ Vw (08/03/2024 2:53 PM AREA SAFETY MANAGER) Anatomical Region Laterality Modality Upper Extremities, Wrist Right Digital Radiography 08/03/2024 4:05 PM AREA SAFETY MANAGER Narrative 08/03/2024 4:09 PM AREA SAFETY MANAGER EXAM DESCRIPTION: XR WRIST RIGHT 3 OR [...] D: ??08/03/2024 4:09 PM T: Report ID: [id number] Reading Location: ??[id number] Procedure Note Raphael Flores MD - 08/03/2024 [...] by Raphael Flores M.D. T: Report ID: [id number] Reading Location: [id number] Jane Petty NP IMG XR PROCEDURES Final Re sult * XR Hand Right 3+ Vw (08/03/2024 2:53 PM AREA SAFETY MANAGER) Anatomical Region Laterality Modality Upper Extremities, Hand Right Digital Radiography 08/03/2024 4:05 PM AREA SAFETY MANAGER Narrative 08/03/2024 4:09 PM AREA SAFETY MANAGER EXAM DESCRIPTION: XR WRIST RIGHT 3 OR [...] D: ??08/03/2024 4:09 PM T: Report ID: [id number] Reading Location: ??[id number] Procedure Note Raphael Flores MD - 08/03/2024 [...] by Raphael Flores M.D. T: Report ID: [id number] Reading Location: [place] [address] Jane Petty NP IMG XR PROCEDURES Final [...] change from the prior study. Oma Crespo STAFFING PROGRAM MANAGER IMG MAMMO PROCEDURES Fi nal Result * [...] last revised on 2019. Testing performed by: [facility], [address] [place] [address], [place]., [address] Blood 12/24/2022 2:16 PM CDT 12/24/2022 6:01 PM CDT Oma Crespo NP LAB MICROBIOLOGY - GENE RAL ORDERABLES Edited Result - Final [facility] Department [place] [address] * COLONOSCOPY REPORT (02/25/2017) Anatomical Region Laterality Modality Other us Provider Scanning GI PROCEDURE ORDERABLES Final Result from Last 3 Months or Most Recently Relevant to Health Maintenance Insurance [facility] [place] [address] [facility] HMO Advance Directives For more information, please contact: [phone] * Full Code (Latest Code Status on File) Date Activated Date Inactivated Comments 12/28/2019 12:36 PM 12/29/2019 4:32 PM Care Teams Medical Educator Relationship Specialty [place] [address] JAIR ARNOLD [facility] [address] [address] PCP - General Family Medicine 02/21/19 Roya Andre PA [address] [place] [address] DR CAMPOS [facility] [place] [address] Physician Delivery And Installation Subcontractor Orthopedic Surgery 04/09/22 Alina Higginbotham, [address] [address] Artificial Breeding Technician Infectious Diseases 10/08/22
--- OUTSIDE RECORDS SUMMARY | 2024-08-10 02:07 | XMS_ITS | Encounter Summary ---
Author Organization [facility] Healthcare Address [address] [place] [address] Care Team Providers Care Field Irrigation Worker Name Role Phone Cassius Ortega NP Primary Care Provider [phone] Roya Andre Unavailable [phone] Reason for Visit * Reason Onset Date Comments Documentation 07/23/2023 Encounter Details Date Type Department Care Team (Late st Contact Info) Description 07/23/2023 Telephone Family Care at [address] [address] Cassius Ortega NP [address] [place] [address] [address] Documentation Social History Tobacco Use [...] on file Legal Sex Female 1:09 AM RADIATOR MECHANIC Gender Identity Not on file Sexual [...] PA started for Wegovy 0.25mg/0.5mL via Covermymeds. Llamsa: [id number] ATOR MECHANIC documented in this encounter Plan of Treatment Not on file documented as of this encounter Visit Diagnoses Not on filedocumented in this encounter Care Teams Field Irrigation Worker Relationship Specialty [place] [address] [facility] [address] [address] PCP - General Family Medicine 02/21/19 Roya Andre PA [address] [facility] [address] [address] Physician Repair Weaver Orthopedic Surgery 04/09/22 Alina Higginbotham, [facility] [address] [facility] [address] Garage Mechanic Infectious Diseases 10/08/22 documented as of this encounter
--- OUTSIDE RECORDS SUMMARY | 2024-08-10 02:07 | XMS_ITS | Encounter Summary ---
Author Organization [facility] Healthcare Address [address] [place] [address] Care Team Providers Care Cruise Staff Member Name Role Phone Cassius Ortega NP Primary Care Provider [phone] Roya Andre Unavailable [phone] Reason for Visit * Reason Onset Date Comments Documentation 05/11/2023 Encounter Details Date Type Department Care Team (Late st Contact Info) Description 05/11/2023 Telephone Family Care at [address] [address] Cassius Ortega NP [address] [place] [address] [address] Documentation Social History Tobacco Use [...] on file Legal Sex Female 1:09 AM WIRE WINDER Gender Identity Not on file Sexual Orientation [...] on filedocumented in this encounter Care Teams Cruise Staff Member Relationship Specialty Start [place] [address] JAIR AR[facility] [address] [address] PCP - General Family Medicine 02/21/19 Roya Andre PA [address] [place] [address] [address] C[address] [place] [address] Physician Construction Materials Tester Orthopedic Surgery 04/09/22 Alina Higginbotham, [facility] [address] [facility] [address] Supervisor Belt And Link Assembly Infectious Diseases 10/08/22 documented as of this encounter
--- OUTSIDE RECORDS SUMMARY | 2024-08-10 02:07 | XMS_ITS | Encounter Summary ---
Author Organization [facility] Healthcare Address [address] [place] [address] Care Team Providers Care Curriculum And Instruction Director Name Role Phone Cassius Ortega NP Primary Care Provider [phone] Roya Andre Unavailable [phone] Reason for Visit * Reason Comments Hyperlipidemia Hypertension Encounter Details Date Type Department Care Team (Late st Contact Info) Description 12/10/2023 2:45 PM CDT Office Visit [place] Wirer [address] [place] [address] Charly Olson MD [address] [place] [address] [address] Primary hypertension (Primary Dx); Mixed hyperlipidemia Social [...] file Legal Sex Female 1:09 AM MANAGER CAR Gender Identity Not on file Sexual Orientation [...] Allergies Allergen Reactions Cefazolin Blisters and Redness Lvadkor-Ype-Yef Reductase Inhibitors Muscle pain and Joint pain [...] DISCLAIMER: This note is transcribed using the Familio direct voice recognition system without human rubber heel and sole press tender. In an effort to expedite patient care, this note has not been adjusted for typographical, grammatical, and syntax by a trained medical territory manager. Portions of this note have been copied from the medical record, but edited appropriately to accurately reflect the patient's current clinical state. Thank you for the consult. We will be happy to follow in this patient's care. Charly Olson, MARTELL@3:34 PM Cc:Cassius Ortega SUPERVISOR HOME ECONOMICS documented in this encounter Miscellaneous Notes * [...] revised on 2018. Non-HDL Cholesterol 86 mg/dL [facility] Comment: Interpretive Data Ages < or = [...] LAB BLOOD ORDERABLES Final Res ult [facility] [address] [address] [place] [address] * ECG 12 lead (12/10/2023) Charly Olson [...] documented as of this encounter Care Teams Curriculum And Instruction Director Relationship Specialty [place] [address] [place] [facility] 2 [facility] [address] [place] [address] PCP - General Family Medicine 02/21/19 Roya Andre PA [address] [place] [address] [address], [place] [address] Physician Fruit Room Hand Orthopedic Surgery 04/09/22 Alina Higginbotham LCSW [address] [facility] [address] Diver Helper Infectious Diseases 10/08/22 documented as of this encounter
--- OUTSIDE RECORDS SUMMARY | 2024-08-10 02:07 | XMS_ITS | Encounter Summary ---
Author Organization [facility] Medical Group Address [address] [address] Care Team Providers Care Airport Operations Duty Manager Name Role Phone Cassius Ortega NP Primary Care Provider [phone] Roya Andre Unavailable [phone] Reason for Visit * Reason Comments Weight Loss Weight loss Encounter Details Date Type Department Care Team (Late st Contact Info) Description 01/08/2023 8:45 AM CDT Office Visit Family Care at [facility] [address] [address] [place] [id number] [place] [address] Encounter for weight loss counseling (Primary [...] on file Legal Sex Female 1:09 AM SWITCHBOARD OPERATOR HELPER Gender Identity Not on file [...] is usually quite accurate but there are jeeper operator areas that can and often occur. All [...] (HCC) documented in this encounter Care Teams Airport Operations Duty Manager Relationship Specialty Start [place] [address] JAIR AR[facility] [address] [address] PCP - General Family Medicine 02/21/19 Roya Andre PA [address] [place] [address] [place] [address] Physician Green Material Value Added Assessor Orthopedic Surgery 04/09/22 Alina Higginbotham, [facility] [address] [facility] [address] Food Crops Farm Hand Infectious Diseases 10/08/22 documented as of this encounter
--- OUTSIDE RECORDS SUMMARY | 2024-08-10 02:07 | XMS_ITS | Encounter Summary ---
Author Organization [facility] Medical Group Address [address] [facility] [address] [place] [address] Care Team Providers Care Vocational Coordinator Name Role Phone Cassius Ortega NP Primary Care Provider [phone] Roya Andre Unavailable [phone] Encounter Details Date Type Department Care Team (Latest Contact Info) Description 11/06/2022 Orders Only [place] Concaving Machine Operator [address] [facility] [address] [place] [address] Paz Calzada MA Hypercholesterolemia (Primary [...] on file Legal Sex Female 1:09 AM CHRISTIAN SCIENCE NURSE Gender Identity Not on file Sexual [...] MD LAB BLOOD ORDERABLES Final Res ult [facility] [address] [address] Department of Laboratories [place] [phone] * (ABNORMAL) Lipid panel (01/19/2023 10:03 AM [...] LAB BLOOD ORDERABLES Final Res ult [facility] [address] [address] Department [place] [address] documented in this encounter Visit Diagnoses Diagnosis Hypercholesterolemia- Primary Pure hypercholesterolemia documented in this encounter Care Teams Vocational Coordinator Relationship Specialty [place] [address] [address] [facility] [address] [place] [address] PCP - General Family Medicine 02/21/19 Roya Andre PA [address] [facility] [address], [place] [address] Physician Secondary School Teacher Orthopedic Surgery 04/09/22 Alina Higginbotham, RECRUITING OPERATIONS CONSULTANT [address] [facility] [address] Blend Plant Operator Infectious Diseases 10/08/22 documented as of this encounter
--- OUTSIDE RECORDS SUMMARY | 2024-08-10 02:07 | XMS_ITS | Encounter Summary ---
Author Organization [facility] Medical Group Address [address] [address] Care Team Providers Care Grinder Machine Setter Name Role Phone Cassius Ortega NP Primary Care Provider [phone] Roya Andre Unavailable [phone] Reason for Visit * Reason Comments Weight Check 1 month weight loss check this morning her weight is 208.0 lb Encounter Details Date Type Department Care Team (Late st Contact Info) Description 02/19/2023 9:15 AM CDT Office Visit Family Care at [address] [address] Cassius Ortega NP [address] [place] [address] Primary hypertension (Primary Dx); Hypothyroidism, unspecified [...] on file Legal Sex Female 1:09 AM DIGITAL PROJECT MANAGER Gender Identity Not on file [...] this encounter Progress Notes * Cassius Ortega, SERVICE NOW DEVELOPER - 02/19/2023 9:15 AM CDT Subjective/Objective Patient [...] documented as of this encounter Care Teams Grinder Machine Setter Relationship Specialty Start [place] [address] [facility] [address] [address] PCP - General Family Medicine 02/21/19 Roya Andre PA [address] [facility] [address], [place] [address] Physician Parachute Line Tier Orthopedic Surgery 04/09/22 Alina Higginbotham, [facility] [address] [facility] [address] Scout Executive Infectious Diseases 10/08/22 documented as of this encounter
--- OUTSIDE RECORDS SUMMARY | 2024-08-10 02:08 | XMS_ITS | Encounter Summary ---
Author Organization [facility] Healthcare Address [address] [place] [address] Care Team Providers Care Land Economist Name Role Phone Cassius Ortega NP Primary Care Provider [phone] Roya Andre Unavailable [phone] Encounter Details Date Type Department Care Team (Late st Contact Info) Description 04/09/2022 9:43 AM CDT Anesthesia Event [facility] Operating Room [address] [place] [address] [place] [address] [facility] [address] [place] [address] Sunny Bullard MD [address] [place] [address] Anesthesia Record Procedure Summary Procedure Name Responsible [...] gi ves break to Rigo Duque CRNA. KITCHEN STEWARD/STEWARDESS remains immediately available. 1033 Proc Start 1035 [...] 922; Abdomen; 07/04/24 (Retired LDA, Removed/Completed by [facility] with LDA Utility); 1213 (Retired LDA, Removed/Completed by [facility] with LDA Utility) 12/28/19922 by Arian [...] Time: 1132 04/09/22 1011 by Bethany Duque, KITCHEN STEWARD/STEWARDESS 04/09/22 1132 by Katy Tran MD RETIRED Surgical Site 04/09/22; 1038; Right; Shoulder; 07/04/24 (Retired LDA, Removed/Completed by [employer] with LDA Utility); 1213 (Retired LDA, Removed/Completed by [employer] with LDA Utility) 04/09/22 1038 by Gladys [...] file Legal Sex Female 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 Cefazolin Blisters and Redness ??? Elrqsfy-Rxr-Bmq Reductase Inhibitors Muscle pain and Joint pain [...] Medication protocol when under care of a KITCHEN STEWARD/STEWARDESS Planned anesthesia: General, regional for postop pain [...] Procedure Name Priority Date/Time Associated Diagnosis Comments HI AN ELECTIVE ENDOTRACHEAL AIRWAY Routine 04/09/2022 10:11 AM CDT ANESTHESIA PERIPHERAL BLOCK Routine 04/09/2022 9:26 AM CDT documented in this encounter Results * HI AN ELECTIVE ENDOTRACHEAL AIRWAY (04/09/2022 10:11 AM CDT) Narrative Bethany Duque CRNA - 04/09/2022 10:11 AM CDT Bethany Duque CRNA ? 04/09/2022 10:11 AM Airway Patient location: OR Urgency: elective Indications for airway management: anesthesia Difficult airway: no Staff: Placed by: KITCHEN STEWARD/STEWARDESS: Bethany Duque CRNA Emergent airway documentation: Risks [...] mg documented in this encounter Care Teams Land Economist Relationship Specialty [place] [address] [address] [address] PCP - General Family Medicine 02/21/19 Roya Andre PA [address] [place] [address] DR CAMPOS [address] [place] [address] Physician Bait Man Orthopedic Surgery 04/09/22 documented as of this encounter
--- OUTSIDE RECORDS SUMMARY | 2024-08-10 02:08 | XMS_ITS | Encounter Summary ---
Author Organization [facility] Medical Group Address [address] [facility] [address] [place] [address] Care Team Providers Care Convertible Top Installer Name Role Phone Cassius Ortega NP Primary Care Provider [phone] Reason for Visit * Reason Onset Date Comments Medical Question/Miscellaneous 04/01/2022 Encounter Details Date Type Department Care Team (Late st Contact Info) Description 04/01/2022 Telephone Family Care at [address] [address] Cassius Ortega NP [address] [place] [address] [address] Medical Question/Miscellaneous Social History Tobacco [...] on file 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 Please f/u. Caller???s Call back #: [phone] Does message need to be routed?Yes-Action Needed documented in this encounter Plan of Treatment Not on file documented as of this encounter Visit Diagnoses Not on filedocumented in this encounter Care Teams Convertible Top Installer Relationship Specialty [place] [address] [facility] [address] [place] [address] PCP - General Family Medicine 02/21/19 documented as of this encounter
--- OUTSIDE RECORDS SUMMARY | 2024-08-10 02:08 | XMS_ITS | Encounter Summary ---
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 ??Testing performed by the [facility] Molecular Infectious Disease Laboratory. The 2019-Novel [...] by: [facility], 1 [place] [address] Nasopharyngeal 03/25/2022 10 :33 AM CDT 03/25/2022 2:15 PM CDT Narrative [facility] ([facility]) - 03/26/2022 5:19 AM CDT Is the patient experiencing any symptoms consistent with COVID (eg. Fever, cough, shortness of breath)?->No What is the reason for testing?->Screening prior to scheduled??procedure or surgery??(Batched) Daniele Morse MD LAB MICROBIOLOGY - GENERAL ORDER NOAH Final Result EDGAR HAIR (MCGREGOR) 1 [facility] [place] [address] documented in this encounter Visit Diagnoses Diagnosis SHREYA (obstructive sleep apnea) Obstructive sleep apnea (adult) (pediatric) documented in this encounter Care Teams Box Office Agent Relationship Specialty [place] [address] [address] [facility] 2 [place] [address] PCP - General Family Medicine 02/21/19 documented as of this encounter
--- OUTSIDE RECORDS SUMMARY | 2024-08-10 02:08 | XMS_ITS | Encounter Summary ---
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 PO appointment [...] Primary documented in this encounter Care Teams Campus Recruiting Internship Relationship Specialty [place] [address] [facility] [address] [place] [address] PCP - General Family Medicine 02/21/19 Roya Andre PA [address] [place] [address] [address], [place] [address] Physician Hospital Food Service Worker Orthopedic Surgery 04/09/22 documented as of this encounter
--- OUTSIDE RECORDS SUMMARY | 2024-08-10 02:08 | XMS_ITS | Encounter Summary ---
Author Organization [facility] Address [address] [facility] [address] [place] [address] Care Team Providers Care Bricklayer Helper Name Role Phone Cassius Ortega NP Primary Care Provider [phone] Roya Andre Unavailable Encounter Details Date Type Department Care Team (Late st Contact Info) Description 05/22/2022 Orders Only [facility] Orthopedics and Sports Medicine 4 [facility] [address] [place] [address] Cuate Mcmullen MD [address] [place] [address] LOAN B [facility] [address] [place] [address] Aftercare following surgery of the [...] on file 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
--- OUTSIDE RECORDS SUMMARY | 2024-08-10 02:08 | XMS_ITS | Encounter Summary ---
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
--- OUTSIDE RECORDS SUMMARY | 2024-08-10 02:08 | XMS_ITS | Encounter Summary ---
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 U ??S ?-- REFERENCE VALUE -- ?<20.0 (Negative) ?Test Performed by: ?[facility] ?[address] [place] [address] ?Snow Blower: Timothy Renae M.D. Ph.D.; CLIA# [id number] Blood 10/08/2022 9:39 AM CLEANING MANAGER 10/08/2022 2:01 PM CLEANING MANAGER us Mary Quiroz MD LAB BLOOD ORDERABLES Final Result TADE[facility]ILLIE ANJELICA One [facility] Department [place] [address] documented in this encounter Visit Diagnoses Not on filedocumented in this encounter Care Teams Tube Room Supervisor Relationship Specialty Start [place] [address] [address] [place] [address] PCP - General Family Medicine 02/21/19 Roya Andre PA [address] [place] [address] [address] CAMPOS [address] [place] [address] Physician Laser Specialist Orthopedic Surgery 04/09/22 Alina Higginbotham [facility] 620 [facility] [address] Multigrapher Infectious Diseases 10/08/22 documented as of this encounter
--- OUTSIDE RECORDS SUMMARY | 2024-08-10 02:08 | XMS_ITS | Encounter Summary ---
Author Organization [facility] Healthcare Address [address] [place] [address] Care Team Providers Care Rental Management Trainee Name Role Phone Cassius Ortega NP Primary Care Provider [phone] Reason for Referral * Diagnostic Imaging (Routine) - Closed Specialty Diagnoses / Procedures Referred By Rickyac t Referred To Contact Diagnoses Cough Procedures XR Chest Pa Lateral 2 [place] [address] [address] [facility] 2 [place] [address] Phone: tel: fax: [address] [address] Referral ID Status Reason Start Date Expiration Date Visits Re quested Visits Authorized [id number] Closed 12/15/2021 01/14/2023 1 1 Reason for Visit * Diagnostic Imaging (Routine) - Closed Specialty Diagnoses / Procedures Referred By Contac t Referred To Contact Diagnoses Cough Procedures XR Chest Pa Lateral 2 [place] [address] [address] [facility] 2 [place] [id number] Phone: tel: fax: [address] [address] Referral ID Status Reason Start Date Expiration Date Visits Re quested Visits Authorized [id number] Closed 12/15/2021 01/14/2023 1 1 Encounter Details Date Type Department Care Team (Latest Contact Info) Description 12/15/2021 1:07 PM CDT - 12/15/2021 11:59 PM CDT Hospital Encounter [facility] Diagnostic Imaging [address] [place] [address] [place] [address] [facility] [address] [place], [place] [id number] [place] [address] [facility] [address]LDG [address] [address] Cough Discharge Disposition: Discharge to [...] on file 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 Cassius Ortega DIRECTOR OF STRATEGIC SOURCING IMG XR PROCEDURES Final Resul t documented in this encounter Visit Diagnoses Diagnosis Cough documented in this encounter Care Teams Rental Management Trainee Relationship Specialty Start Date End Date Cassius Ortega, NAWAF [address] [address] [facility] [address] [address] PCP - General Family Medicine 02/21/19 documented as of this encounter
--- OUTSIDE RECORDS SUMMARY | 2024-08-10 02:08 | XMS_ITS | Encounter Summary ---
Author Organization [facility] Address [address] [facility] [address] [place] [address] Care Team Providers Care Envelope Stamping Machine Operator Name Role Phone Cassius Ortega NP Primary Care Provider [phone] Reason for Visit * Cardiology (Routine) - Closed Specialty Diagnoses / Procedures Referred By Cara alvarez Referred To Contact Diagnoses Palpitations Procedures Event Monitor, 30 Day Event Charly Olson MD Phone: tel: fax: [facility] Referral ID Status Reason Start Date Expiration Date Visits Re quested Visits Authorized [id number] Closed 01/05/2022 02/04/2023 1 1 Encounter Details Date Type Department Care Team (Late st Contact Info) Description 12/22/2021 8:00 AM CDT Ancillary Procedure [facility] Director [address] [address] Palpitations Social History Tobacco Use [...] file 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
--- OUTSIDE RECORDS SUMMARY | 2024-08-10 02:08 | XMS_ITS | Encounter Summary ---
Author Organization [facility] Healthcare Address [address] [place] [address] Care Team Providers Care Elementary School Music Teacher Name Role Phone Cassius Ortega NP Primary Care Provider [phone] Reason for Referral * Sleep Medicine (Routine) - Closed Specialty Diagnoses / Procedures Referred By Cara alvarez Referred To Contact Diagnoses SHREYA (obstructive sleep apnea) Procedures [facility]-Sleep Provider Use Only Daniele Morse MD Phone: tel: fax: [address] [address] Referral ID Status Reason Start Date Expiration Date Visits Re quested Visits Authorized [id number] Closed 03/20/2022 09/16/2022 1 1 Reason for Visit * Sleep Medicine (Routine) - Closed Specialty Diagnoses / Procedures Referred By Cara alvarez Referred To Contact Diagnoses SHREYA (obstructive sleep apnea) Procedures PSG-Sleep Provider Use Only Daniele Morse MD Phone: tel: fax: [address] [address] Referral ID Status Reason Start Date Expiration Date Visits Re quested Visits Authorized [id number] Closed 03/20/2022 09/16/2022 1 1 Encounter Details Date Type Department Care Team (Latest Contact Info) Description 03/26/2022 6:19 PM CDT - 03/26/2022 11:59 PM CDT Hospital Encounter [facility] 1 [place] [address] Daniele Morse MD [address] [place] [address] [address] [place] [address] SHREYA (obstructive sleep apnea) Discharge [...] on file 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
--- OUTSIDE RECORDS SUMMARY | 2024-08-10 02:08 | XMS_ITS | Encounter Summary ---
Author Organization [facility] Medical Group Address [address] [facility] [address] [place] [address] Care Team Providers Care Chemical Research Worker Name Role Phone Cassius Ortega NP Primary Care Provider [phone] Encounter Details Date Type Department Care Team (Late st Contact Info) Description 03/27/2022 Orders Only [place] [address] [facility] [address] [place] [address] Charly Olson MD [address] [place] [address] DR CAMPOS [address] [place] [address] Social History Tobacco Use Types Packs/Day Years [...] on file 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
--- OUTSIDE RECORDS SUMMARY | 2024-08-10 02:08 | XMS_ITS | Encounter Summary ---
Author Organization [facility] Address [address] [facility] [address] [place] [address] Phone Care Team Providers Care B2B Sales Consultant Name Role Phone Cassius Ortega NP Primary Care Provider [phone] Roya Andre Unavailable [phone] Reason for Visit * Reason Comments New Patient * Consultation (Routine) - Closed Specialty Diagnoses / Procedures Referred By Cara t Referred To Contact Infectious Diseases Diagnoses Multiple persistent symptoms after COVID-19 [place] [address] [address] [place] [address] Phone: tel: fax: [facility] Infectious Diseases [address] [facility] 8th Floor, [place] [address] Phone: tel: fax: Referral ID Status Reason Start Date Expiration Date V isits Requested Visits Authorized [id number] Closed Specialty Services Required 08/26/2022 09/25/2023 1 1 Encounter Details Date Type Department Care Team (Late st Contact Info) Description 10/08/2022 8:20 AM SENIOR GEOLOGIST Office Visit [facility] Infectious Diseases [address] [facility] [address] [place] [id number] Mary Quiroz MD [address] [place] [address] Multiple persistent symptoms after COVID-19 (Primary Dx); [...] file Legal Sex Female 1:09 AM SENIOR GEOLOGIST Gender Identity Not on file Sexual Orientation Not on file 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 documented as of this encounter Last Filed Vital Signs Vital Sign Reading Time Taken Comments Blood Pressure 126/80 10/08/2022 8:32 AM SENIOR GEOLOGIST Pulse 62 10/08/2022 8:32 AM SENIOR GEOLOGIST Temperature 36.6 ??C (97.8 ??F) 10/08/2022 8:32 AM CS T Respiratory Rate - - Oxygen Saturation - - Inhaled Oxygen Concentration - - Weight 100.2 kg (221 lb) 10/08/2022 8:32 AM SENIOR GEOLOGIST Height 165 cm (5' 4.96 ) 10/08/2022 8:32 AM SENIOR GEOLOGIST Body Mass Index 36.82 10/08/2022 8:32 AM SENIOR GEOLOGIST documented in this encounter Patient Instructions * Patient Instructions* Mary Quiroz MD - 10/08/2022 8:20 AM SENIOR GEOLOGIST Fatigue Management & Maximizing Energy: Returning to [...] maximizing energy. 3. Planning - Using a journal/meeting planner/agenda can assist with planning tasks on a [...] add up to less overall rest time. Zarate with timing and length of rest. Plan rest into your schedule first, then schedule activities around rest. Think of rest as an activity and plan it into your day. Make rest a habit. To use budgeting terms, resting is making a deposit into your energy bank account. Progressing Activities Physical therapy clinic will help you to develop a symptom-guided rehabilitation program with shortand intermodal dispatcher goals where progressions are not based on [...] feature of maximizing energy is rest and gnosticism SPECIAL AREAS FOR CONSIDERATION: Return to Work [...] look at alternatives to intercourse for intimacy. OR GEOLOGIST OR GEOLOGIST OR GEOLOGIST OR GEOLOGIST * Attachments The following attachments cannot be sent through Care Everywhere. * Chronic Fatigue Syndrome (Discharge Care) (Welsh) documented in this encounter Progress Notes * Mary Quiroz MD - 10/08/2022 8:20 AM CST [facility] Care and Recovery (CARE) from COVID Clinic Initial Visit Chief Complaint: Chief Complaint Patient presents with New Patient Fatigue, shortness of breath HPI: Олег Paz is a 47 y.o. White female presenting to [facility] for long COVID evaluation. Patient name: Олег Paz : 1975 P[place] [address] [address] [place] [address] Race: White Sex at : female Gender [...] been normal. PFTs have gotten worseover time. Communications Specialist is planning on CT chest scan later. [...] emergence from general anesthesia, Hypertension, Interstitiallung disease ([facility]/HCC) ([facility]), SHREYA (obstructive sleep apnea) (05/07/2021), PONV (postoperative nausea and vomiting), Post depression (2002), and Thyroid disease. She has no past medical history of Acute respiratory failure requiring reintubation (CMS/HCC) ([facility]), Breast cancer (CMS/HCC) ([facility]), History of chemotherapy, History of radiation therapy, Postoperative delirium, Seizures (CMS/HCC) ([facility]), Smoking, or Stroke (CMS/HCC) ([facility]). Past Surgical History has a past surgical [...] Allergies Allergen Reactions Cefazolin Blisters and Redness Apajzrm-Sqi-Ycv Reductase Inhibitors Muscle pain and Joint pain [...] no specific testing is currently available for [facility]. Initial assessment includes evaluating for non-COVID conditions that could be contributing to symptoms andevidence of end-organ dysfunction. Assessment and management derived from CDC guidelines, consensus statements, and expert guidance. Fatigue, PESE: most common symptom in [facility]. No current evidence of end-organ damage (e.g., heart failure, pulmonary fibrosis). Another concern here is her untreated SHREYA. Possible symptoms will get better with initiation of BIPAP. - Lab evaluation for reversible etiologies: CBC with differential, CMP, TSH, CK - [facility] behavioral recommendations: discussed importance of energy conservation, [...] contributing - Support and referrals: [facility] [place] ([facility]) Shortness of breath or dyspnea: patient [...] recommendations sent to patient's PCP, Cassius Ortega, POSTAL CLERK RTC PRN. Instructed to contact clinic with [...] she is needing Community Resources or any [place] assistance. Patient acknowledged. Patient voiced good support from family. 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 No needs identified or expressed atthis time. SW will remain available to patient as needed. Cosigned by Mary Quiroz MD at 10/08/2022 10:18 AM SENIOR GEOLOGIST OR GEOLOGIST OR GEOLOGIST documented in this encounter Plan of Treatment Not on file documented as of this encounter Procedures Procedure Name Priority Date/Time Associated Diagnosis Comments BALDOMERO QUALITATIVE WITH REFLEX TO BALDOMERO QUANTITATIVE Routine 10/08/2022 9:39 AM SENIOR GEOLOGIST Multiple persistent symptoms after COVID-19 EGFR Routine 10/08/2022 9:39 AM SENIOR GEOLOGIST Multiple persistent symptoms after COVID-19 DIFFERENTIAL AUTO Routine 10/08/2022 9:3 9 AM SENIOR GEOLOGIST Multiple persistent symptoms after COVID-19 THYROID FUNCTION CASCADE Routine 10/08/2022 9:39 AM SENIOR GEOLOGIST Multiple persistent symptoms after COVID-19 CBC WITH AUTO DIFFERENTIAL Routine 10/08/2022 9:39 AM SENIOR GEOLOGIST Multiple persistent symptoms after COVID-19 CYCLIC CITRUL PEPTIDE ANTIBODY, IGG Routine 10/08/2022 9:39 AM SENIOR GEOLOGIST Multiple persistent symptoms after COVID-19 RHEUMATOID FACTOR Routine 10/08/2022 9:3 9 AM SENIOR GEOLOGIST Multiple persistent symptoms after COVID-19 PHOSPHORUS Routine 10/08/2022 9:39 AM SENIOR GEOLOGIST Multiple persistent symptoms after COVID-19 MAGNESIUM Routine 10/08/2022 9:39 AM SENIOR GEOLOGIST Multiple persistent symptoms after COVID-19 VITAMIN B12 Routine 10/08/2022 9:39 AM SENIOR GEOLOGIST Multiple persistent symptoms after COVID-19 CREATINE KINASE (CK), TOTAL Routine 10/08/2022 9:39 AM SENIOR GEOLOGIST Multiple persistent symptoms after COVID-19 COMPREHENSIVE METABOLIC PANEL Routine 10/08/2022 9:39 AM SENIOR GEOLOGIST Multiple persistent symptoms after COVID-19 documented in this encounter Results * eGFR (10/08/2022 9:39 AM SENIOR GEOLOGIST) eGFR >90 90 - 130 mL/min/1. 73 m2 [facility] Comment: Interpretive Data Reference Interval Normal ?>/= [...] last reviewed 2021. Blood 10/08/2022 9:39 AM SENIOR GEOLOGIST 10/08/2022 2:01 PM SENIOR GEOLOGIST Mary Quiroz MD LAB BLOOD ORDERABLES Final Result [facility] Department [place] [address] * Differential, auto (10/08/2022 9:39 AM SENIOR GEOLOGIST) Neutrophil abs 4.1 1.7 - 6.5 K/cumm [facility] Imm gran abs 0.0 0.0 - 0.1 K/cumm [facility] Lymphocyte abs 2.8 0.8 - 3.3 K/cumm [facility] Monocyte abs 0.6 0.2 - 0.8 K/cumm [facility] Eosinophil abs 0.1 0.0 - 0.5 K/cumm [facility] Basophil abs 0.0 0.0 - 0.1 K/cumm [facility] Neutrophil pct 53.5 % [facility] Comment: Interpretive Data Percent cell count reference ranges are not reported, since discordance with absolute values may lead to misinterpretation of CBC data. Current Interpretive Data was last revised on 2017. Imm gran pct 0.3 % [facility] Comment: Interpretive Data Percent cell count reference ranges are not reported, since discordance with absolute values may lead to misinterpretation of CBC data. Current Interpretive Data was last revised on 2017. Lymphocyte pct 36.5 % [facility] Comment: Interpretive Data Percent cell count reference ranges are not reported, since discordance with absolute values may lead to misinterpretation of CBC data. Current Interpretive Data was last revised on 2017. Monocyte pct 8.3 % [facility] Comment: Interpretive Data Percent cell count reference ranges are not reported, since discordance with absolute values may lead to misinterpretation of CBC data. Current Interpretive Data was last revised on 2017. Eosinophil pct 0.9 % [facility] Comment: Interpretive Data Percent cell count reference ranges are not reported, since discordance with absolute values may lead to misinterpretation of CBC data. Current Interpretive Data was last revised on 2017. Basophil pct 0.5 % [facility] Comment: Interpretive Data Percent cell count reference ranges are not reported, since discordance with absolute values may lead to misinterpretation of CBC data. Current Interpretive Data was last revised on 2017. Blood 10/08/2022 9:39 AM SENIOR GEOLOGIST 10/08/2022 1:56 PM SENIOR GEOLOGIST us Mary Quiroz MD LAB BLOOD ORDERABLES Final Result [facility] Department [place] [address] * Phosphorus (10/08/2022 9:39 AM SENIOR GEOLOGIST) Phosphorus, pl 3.3 2.3 - 4.5 mg/dL [facility] Blood 10/08/2022 9:39 AM SENIOR GEOLOGIST 10/08/2022 1:56 PM SENIOR GEOLOGIST us Mary Quiroz MD LAB BLOOD ORDERABLES Final Result Performing Organization Address [facility] [place] [address] * Magnesium (10/08/2022 9:39 AM SENIOR GEOLOGIST) Magnesium 2.1 1.4 - 2.5 mg/dL [facility] Blood 10/08/2022 9:39 AM SENIOR GEOLOGIST 10/08/2022 1:56 PM SENIOR GEOLOGIST us Mary Quiroz MD LAB BLOOD ORDERABLES Final Result Performing Organization Address [facility] de Phone Number [facility] [place] [place] [address] * Vitamin B12 (10/08/2022 9:39 AM SENIOR GEOLOGIST) Vitamin B12 652 230 - 1,250 pg/mL [facility] Blood 10/08/2022 9:39 AM SENIOR GEOLOGIST 10/08/2022 1:56 PM SENIOR GEOLOGIST us Mary Quiroz MD LAB BLOOD ORDERABLES Final Result Performing Organization Address City/[facility] Co de Phone Number [facility] [place] [place] [address] * Creatine kinase (CK), total (10/08/2022 9:39 AM SENIOR GEOLOGIST) CK 182 30 - 200 Units/L [facility] Blood 10/08/2022 9:39 AM SENIOR GEOLOGIST 10/08/2022 1:56 PM SENIOR GEOLOGIST us Mary Quiroz MD LAB BLOOD ORDERABLES Final Result Performing Organization Address City/[facility]/ZIP Co de Phone Number [facility] [place] [address] * TSH reflex to free T4 (10/08/2022 9:39 AM SENIOR GEOLOGIST) [facility] TSH 0.52 0.30 - 4.20 mcIUnit/mL [facility] Blood 10/08/2022 9:39 AM SENIOR GEOLOGIST 10/08/2022 1:56 PM SENIOR GEOLOGIST Mary Quiroz MD LAB BLOOD ORDERABLES Final Result Performing Organization Address City/[facility] Co de Phone Number [facility] [place] [address] * (ABNORMAL) CBC with auto differential (10/08/2022 9:39 AM SENIOR GEOLOGIST) [facility] WBC 7.7 3.8 - 9.9 K/cumm [facility] Hgb 11.8(L) 11.9 - 15.5 g/dL [facility] Hct 36.8 35.6 - 45.5 % [facility] Plt 283 150 - 400 K/cumm [facility] MPV 9.1 9.1 - 12.3 fL [facility] RBC 4.04 3.90 - 5.20 M/cumm [facility] MCV 91.1 81.3 - 96.4 fL [facility] MCH 29.2 27.1 - 33.3 pg [facility] MCHC 32.1(L) 32.3 - 35.7 g/dL [facility] RDW CV 14.6 11.1 - 14.9 % [facility] RDW SD 49.7(H) 35.7 - 48.1 fL [facility] NRBC abs 0.00 0.00 - 0.01 K/cumm [facility] Blood 10/08/2022 9:39 AM SENIOR GEOLOGIST 10/08/2022 1:56 PM SENIOR GEOLOGIST Result [facility] Mary Quiroz MD LAB BLOOD ORDERABLES Final Result Performing Organization Address [facility] de Phone Number [facility] [place] [address] * Cyclic citrul peptide antibody, IgG (10/08/2022 9:39 AM SENIOR GEOLOGIST) Pathologist [facility] CCP Ab See Comment <=2.9 [facility] Comment: Testing performed by: [place] [address]. ??Results to follow. Interpretive data Negative: <3 units/mL Positive: > or equal to 3 units/mL Current interpretive data was last revised on 2016. Blood 10/08/2022 9:39 AM SENIOR GEOLOGIST 10/08/2022 1:56 PM SENIOR GEOLOGIST Result [facility] Mary Quiroz MD LAB BLOOD ORDERABLES Final Result Performing Organization Address [facility] de Phone Number [facility] [place] [place] [address] * Rheumatoid factor (10/08/2022 9:39 AM SENIOR GEOLOGIST) [facility] Rheumatoid factor, quant <10.0 0.1 - 15.0 IUnits/mL [facility] Blood 10/08/2022 9:39 AM SENIOR GEOLOGIST 10/08/2022 1:56 PM SENIOR GEOLOGIST Result [facility] Mary Quiroz MD LAB BLOOD ORDERABLES Final Result Performing Organization Address [facility] [place] [address] * BALDOMERO qualitative with reflex to BALDOMERO Quantitative (10/08/2022 9:39 AM SENIOR GEOLOGIST) [facility] BALDOMERO Positive [facility] Comment: Interpretive Data Normal range for BALDOMERO [...] revised on 2020. BALDOMERO, quant 1:320 titer [facility] BALDOMERO, interp Speckled [facility] Blood 10/08/2022 9:39 AM SENIOR GEOLOGIST 10/08/2022 1:56 PM SENIOR GEOLOGIST Mary Quiroz MD LAB BLOOD ORDERABLES Final Result [facility] Department [place] [address] * Comprehensive metabolic panel (10/08/2022 9:39 AM SENIOR GEOLOGIST) Sodium 140 135 - 145 mmol/L [facility] Potassium, pl 3.9 3.3 - 4.9 mmol/L [facility] Chloride 103 97 - 110 mmol/L [facility] CO2 28 22 - 32 mmol/L [facility] Anion gap 9 2 - 15 mmol/L [facility] BUN 12 8 - 25 mg/dL [facility] Creatinine 0.69 0.60 - 1.10 mg/dL [facility] Glucose 77 70 - 199 mg/dL [facility] Comment: Interpretive Data Fasting glucose >/= 126 [...] 2022. Calcium 9.8 8.5 - 10.3 mg/dL [facility] Bilirubin, total 0.3 0.1 - 1.2 mg/dL [facility] Protein, pl 8.2 6.5 - 8.5 g/dL [facility] Albumin 4.8 3.5 - 5.0 g/dL [facility] Alk phos 69 40 - 130 Units/L [facility] ALT 31 7 - 45 Units/L [facility] AST 28 10 - 45 Units/L [facility] Blood 10/08/2022 9:39 AM SENIOR GEOLOGIST 10/08/2022 1:56 PM SENIOR GEOLOGIST us Mary Quiroz MD LAB BLOOD ORDERABLES Final Result [facility] Department [place] [address] documented in this encounter Visit Diagnoses Diagnosis Multiple persistent symptoms after COVID-19- Primary History of COVID-19 documented in this encounter Orders Outpatient Referral Count Last Ordered Date Fir st Ordered Date AMB REFERRAL TO INFECTIOUS DISEASE 1 2022 documented in this encounter Care Teams B2B Sales Consultant Relationship Specialty Start [place] [address] [address] [facility] [address] [place] [address] PCP - General Family Medicine 02/21/19 Roya Andre PA 4 [facility] [address] [place] [address] Physician Local Area Network Administrator Orthopedic Surgery 04/09/22 Alina Higginbotham LCSW [address] [facility] [address] Barker Operator Infectious Diseases 10/08/22 documented as of this encounter
--- OUTSIDE RECORDS SUMMARY | 2024-08-10 02:08 | XMS_ITS | Encounter Summary ---
Author Organization [facility] Address [address] [place] [address] Care Team Providers Care Varnish Dipper Name Role Phone Cassius Ortega NP Primary Care Provider [phone] Encounter Details Date Type Department Care Team (Late st Contact Info) Description 04/07/2022 9:50 AM CDT Lab [address] [address] Cuate Mcmullen MD [address] [place] [address] [address] [address] Impingement syndrome of right shoulder; Biceps tendinitis [...] on file Legal Sex Female 1:09 AM SMALL STOCK FACER Gender Identity Not on file Sexual [...] and NAAT . ??Testing performed by the [facility] Molecular Infectious Disease Laboratory. The [...] on September 05, 2020. Testing performed by: [facility], [address], [place]., [address] Nasopharyngeal 04/07/2022 9: 48 AM CDT 04/07/2022 3:15 PM CDT Narrative [facility] ([facility]) - 04/08/2022 12:24 AM CDT Is the patient experiencing any symptoms consistent with COVID (eg. Fever, cough, shortness of breath)?->No What is the reason for testing?->Screening prior to scheduled??procedure or surgery??(Batched) us Cuate Mcmullen MD LAB MICROBIOLOGY - GENERAL O R[place]ACHASE Final Result [facility] ([place]) [address] [facility] [place] [address] documented in this encounter Visit Diagnoses Diagnosis Impingement syndrome of right shoulder Biceps tendinitis on right Arthritis of right acromioclavicular joint Nontraumatic incomplete tear of right rotator cuff documented in this encounter Care Teams Varnish Dipper Relationship Specialty Start [place] [address] [address] [facility] [address] [address] PCP - General Family Medicine 02/21/19 documented as of this encounter
--- OUTSIDE RECORDS SUMMARY | 2024-08-10 02:08 | XMS_ITS | Encounter Summary ---
Author Organization [facility] Address [address] [address] Care Team Providers Care Obstetrics Gyn Name Role Phone Cassius Ortega NP Primary Care Provider [phone] Reason for Visit * Cardiology (Routine) - Closed Specialty Diagnoses / Procedures Referred By Contac t Referred To Contact Diagnoses SOB (shortness of breath) Procedures Transthoracic Echo Complete W Doppler/CF Charly Olson MD Phone: tel: fax: [facility] Referral ID Status Reason Start Date Expiration Date Visits Re quested Visits Authorized [id number] Closed 12/18/2021 01/17/2023 1 1 Encounter Details Date Type Department Care Team (Latest Contact Info) Description 01/02/2022 9:00 AM CDT Ancillary Procedure [place] [employer] Roofer Helper [address] [address] SOB (shortness of breath) Social [...] file Legal Sex Female 1:09 AM MANAGER PRODUCTION Gender Identity Not on file Sexual Orientation [...] breath documented in this encounter Care Teams Obstetrics Gyn Relationship Specialty [place] [address] [address] [facility] [address] [address] PCP - General Family Medicine 02/21/19 documented as of this encounter
--- OUTSIDE RECORDS SUMMARY | 2024-08-10 02:08 | XMS_ITS | Encounter Summary ---
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 * General Anesthesia (Discharge Care) ([place]izen [place]) * Ascorbic Acid (Vitamin C) (By mouth) ([place]) * Vitamin D (By mouth) ([place]) * Ondansetron (By mouth, Into the mouth) ([place]izen [place]) * Oxycodone/Acetaminophen (By mouth) ([place]) * Senna (By mouth) ([place]izen [place]) * Peripheral Nerve Block (Discharge Care) ([place]izen [place]) documented in this encounter Medications at Time [...] getting worse she like discuss surgical options. Lapel Padder Blindstitch completed by using M*Modal Fluency Direct speaking [...] of Acute respiratory failure requiring reintubation (CMS/HCC) ([facility]), Breast cancer (CMS/HCC) ([facility]), History of chemotherapy, History of radiation therapy, [...] getting worse she like discuss surgical options. Lapel Padder Blindstitch completed by using M*Modal Fluency Direct speaking [...] history of Acute respiratory failure requiring reintubation ([facility]) ([facility]), Breast cancer ([facility]) ([facility]), History of chemotherapy, History of radiation therapy, [...] RN - 03/31/2022 4:34 PM CDT 03/31/22 3337 Sleep Apnea Questions Have you ever had [...] included. Operative Report SURGEON: Cuate Mcmullen MD Java Lead Developer: Gladys Mcgraw Scrub: Mc Vaughn RN; Tamara [...] Implant Name Type Inv. Item Serial No. Mastercam Programmer Lot No. LRB No. Used Action [employer] SET IMPLANT [employer] FIBERTAK BICEPS STERILE LATEX FREE AR-3670 - [id number] [employer] SET IMPLANT [employer] FIBERTAK BICEPS STERILE LATEX FREE AR-3670 [employer] [id number] Right 1 Implanted Estimated Blood Loss: 10 [...] Mcmullen MD Date: 04/09/2022 Time: 11:57 AM Lapel Padder Blindstitch completed by using M*Modal Fluency Direct speaking software, therefore, transcriptionvariances may occur. * Perioperative Nursing Note - Kelly Moncada RN - 03/31/2022 4:32 PM CDT Covid screening on 04-07-22 here at [facility]. * Pre-Procedure Instructions - Kelly Moncada RN - 03/31/2022 4:25 PM CDT We are pleased that you and your doctor have chosen [facility] for your surgery. We hope that the [...] morning of surgery Use no make-up, nail qatari, lotions, oils or powders on your skin. [...] Comment: Switch to gravity)0943 (Restarted - Provider: eBthany Duque CRNA)1055 (Anesthesia Volume Adjustment - Provider: [...] 04/09 documented in this encounter Care Teams Scanner Supervisor Relationship Specialty [place] [address] [address] [facility] [address] [address] PCP - General Family Medicine 02/21/19 Roya Andre PA [address] [place] [address] [address] [place] [address] Physician Campground Manager Orthopedic Surgery 04/09/22 documented as of this encounter
--- OUTSIDE RECORDS SUMMARY | 2024-08-10 02:08 | XMS_ITS | Encounter Summary ---
Author Organization [facility] Address [address] 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
--- OUTSIDE RECORDS SUMMARY | 2024-08-10 02:08 | XMS_ITS | Encounter Summary ---
Author Organization [facility] Address [address] [facility] [address] [place] [address] Care Team Providers Care Program Director/Music Director Name Role Phone Cassius Ortega NP Primary Care Provider [phone] Reason for Visit * Reason Onset Date Comments Surgical Clearance 04/01/2022 Encounter Details Date Type Department Care Team (Late st Contact Info) Description 04/01/2022 Telephone [facility] Orthopedics and Sports Medicine [address] [place] [address] [address], [place] [address] Allison Harris MA Surgical Clearance [...] on file Legal Sex Female 1:09 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 Olson. Letter sent through [employer] * Telephone Encounter - Allison Harris MA [...] for surgery by Cardiology. Letter sent through [employer]. documented in this encounter Plan of Treatment Not on file documented as of this encounter Visit Diagnoses Not on filedocumented in this encounter Care Teams Program Director/Music Director Relationship Specialty Start [place] [address] [address] [facility] [address] [address] PCP - General Family Medicine 02/21/19 documented as of this encounter
--- OUTSIDE RECORDS SUMMARY | 2024-08-10 02:08 | XMS_ITS | Encounter Summary ---
Author Organization [facility] Address [address] [facility] [address] [place] [address] Phone Care Team Providers Care Consumer Safety Inspector Name Role Phone Cassius Ortega NP Primary Care Provider [phone] Reason for Visit * Reason Comments Ear Problem Fluid in ear * Consultation (Routine) - Closed Specialty Diagnoses / Procedures Referred By Cara alvarez Referred To Contact Otolaryngology Diagnoses Bilateral chronic [place] [address] [facility] [address] [place] [address] Phone: tel: fax: [facility]) - [facility] [address] [facility] Office Building [address] [place] [address] Phone: tel: fax: Referral ID Status Reason Start Date Expiration Date V isits Requested Visits Authorized [id number] Closed Specialty Services Required 12/15/2021 08/01/2022 12 12 Encounter Details Date Type Department Care Team (Late st Contact Info) Description 12/24/2021 2:00 PM CDT Office Visit [facility] - [facility] [address] [facility] 2nd Floor, [address] [place] [address] Kennedi Floyd NP [address] [place] [address] Allergic rhinitis, unspecified seasonality, unspecified trigger (Primary [...] on file 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
--- OUTSIDE RECORDS SUMMARY | 2024-08-10 02:08 | XMS_ITS | Encounter Summary ---
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
--- OUTSIDE RECORDS SUMMARY | 2024-08-10 02:08 | XMS_ITS | Encounter Summary ---
Author Organization [facility] Medical Group Address [address] [address] Care Team Providers Care Balance Clerk Name Role Phone Cassius Ortega NP Primary Care Provider Roya Andre Unavailable [phone] Reason for Visit * Reason Comments Follow-up Encounter Details Date Type Department Care Team (Latest Contact Info) Description 07/03/2022 1:45 PM BULB BRANDER Office Visit [facility] Orthopedics and Sports Medicine 4 [facility] [address] [place] [id number] Roya Andre PA [address] [place] [address] [address] [place] [address] Aftercare following surgery of the musculoskeletal system [...] on file Legal Sex Female 1:09 AM BULB BRANDER Gender Identity Not on file Sexual Orientation Not on file 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 documented as of this encounter Last Filed Vital Signs Vital Sign Reading Time Taken Comments Blood Pressure 136/88 07/03/2022 1:45 PM BULB BRANDER Pulse 73 07/03/2022 1:45 PM BULB BRANDER Temperature - - Respiratory Rate - - Oxygen Saturation - - Inhaled Oxygen Concentration - - Weight 103.5 kg (228 lb 3.2 oz) 07/03/2022 1:45 PM BULB BRANDER Height 165.1 cm (5' 5 ) 07/03/2022 1:45 PM BULB BRANDER Body Mass Index 37.97 07/03/2022 1:45 PM BULB BRANDER documented in this encounter Progress Notes * Roya Andre PA - 07/03/2022 1:45 PM CST Images from the original note were not included. Post-Op Visit Note HPI: Patient is 3 mos s/p right shoulder arthroscopy with subacromial decompression, distal clavicle excision, subpec biceps tenodesis, and rotator cuff debridement. She has been completing outpatient PT at [facility] in [facility] and is making great functional improvement. [...] expressed understanding of plan. Roya Andre PA-C BRANDER documented in this encounter Plan of Treatment Not on file documented as of this encounter Visit Diagnoses Diagnosis Aftercare following surgery of the musculoskeletal system- Primary Aftercare following surgery of the musculoskeletal system, NEC S/P arthroscopy of right shoulder documented in this encounter Care Teams Balance Clerk Relationship Specialty [place] [address] [address] [address] PCP - General Family Medicine 02/21/19 Roya Andre PA [address] [place] [address] [address], [place] [address] Physician Dolly Pusher Orthopedic Surgery 04/09/22 documented as of this encounter
--- OUTSIDE RECORDS SUMMARY | 2024-08-10 02:08 | XMS_ITS | Encounter Summary ---
Author Organization [facility] Medical [facility] Address [address] [facility] [address] [place] [address] Care Team Providers Care Grants Assistant Name Role Phone Cassius Ortega NP Primary Care Provider [phone] Reason for Referral * Cardiology (Routine) - Closed Specialty Diagnoses / Procedures Referred By Contac t Referred To Contact Diagnoses SOB (shortness of breath) Procedures Transthoracic Echo Complete W Doppler/CF Charly Olson MD Phone: tel: fax: [facility] Referral ID Status Reason Start Date Expiration Date Visits Re quested Visits Authorized [id number] Closed 12/18/2021 01/17/2023 1 1 Encounter Details Date Type Department Care Team (Late st Contact Info) Description 12/18/2021 Orders Only [place] Blade Aligner [address] 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
--- OUTSIDE RECORDS SUMMARY | 2024-08-10 02:08 | XMS_ITS | Encounter Summary ---
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 Gender Identity Not on file Sexual [...] Final Res ult [facility] ([facility]) 1 [facility] [place] [address] * Hepatic function panel (03/26/2022 12:45 PM [...] BLOOD ORDERABLES Final Res ult [facility] ([place]) 1 [facility] Department [place] [address] documented in this encounter Visit Diagnoses Diagnosis Statin intolerance documented in this encounter Care Teams Records Clerk Relationship Specialty [place] [address] [address] [facility] [address] [address] PCP - General Family Medicine 02/21/19 documented as of this encounter
--- OUTSIDE RECORDS SUMMARY | 2024-08-10 02:08 | XMS_ITS | Encounter Summary ---
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 documented as of this encounter Plan of Treatment Not on file documented as of this encounter Procedures Procedure Name Priority Date/Time Associated Diagnosis Comments HEPATIC FUNCTION PANEL Routine 09/02/2022 3:16 PM SCREEN MAKING SUPERVISOR documented in this encounter Results * (ABNORMAL) Hepatic function panel (09/02/2022 3:16 PM SCREEN MAKING SUPERVISOR) Bilirubin, total 0.3 0.1 - 1.2 mg/dL [...] Units/L CERNER CH Blood 09/02/2022 3:16 PM SCREEN MAKING SUPERVISOR 09/02/2022 3:22 PM SCREEN MAKING SUPERVISOR us Timothy Crouch MD LAB BLOOD ORDERABLES Fi nal Result [facility] [address] [address] Department [place] [address] documented in this encounter Visit Diagnoses Not on filedocumented in this encounter Care Teams Director Insurance Relationship Specialty Start [place] [address] [address] [facility] [address] [place] [address] PCP - General Family Medicine 02/21/19 Roya Andre PA [address] [place] [address] [address] [place] [address] Physician Regional Vice President Surgical Sales Orthopedic Surgery 04/09/22 documented as of this encounter
--- OUTSIDE RECORDS SUMMARY | 2024-08-10 02:08 | XMS_ITS | Encounter Summary ---
Author Organization [facility] Medical Group Address [address] [facility] [address] [place] [address] Care Team Providers Care Tire Center Supervisor Name Role Phone Cassius Ortega NP Primary Care Provider [phone] Reason for Referral * Sleep Medicine (Routine) - Closed Specialty Diagnoses / Procedures Referred By Contac t Referred To Contact Diagnoses SHREYA (obstructive sleep apnea) Procedures PSG-Sleep Provider Use Only Daniele Morse MD Phone: tel: fax: [facility] 1 [place] [address] Referral ID Status Reason Start Date Expiration Date Visits Re quested Visits Authorized [id number] Closed 03/20/2022 09/16/2022 1 1 Encounter Details Date Type Department Care Team (Late st Contact Info) Description 02/26/2022 1:15 PM CDT Office Visit [facility] [address] [facility] [address] [place] [address] Daniele Morse MD [address] [place] [address] [address] [place] [address] SHREYA (obstructive sleep apnea) (Primary [...] file 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 Lincoln Sleepiness Scale score is 5. 3. Severe [...] WBC 9.7, hemoglobin 11.8, hematocrit 37.1 platelets [id number]. Progress notes from 12/24/2021 of Ms. Everett [...] or continued 6.Avoid alcohol sedatives and other NETWORKING ENGINEER depression that may worsen sleep apnea [...] and NAAT . ??Testing performed by the [facility] Molecular Infectious Disease Laboratory. The [...] on September 05, 2020. Testing performed by: [facility], 1 [place]., [address] Nasopharyngeal 03/25/2022 10 :33 AM CDT 03/25/2022 2:15 PM CDT Narrative [facility] ([facility]) - 03/26/2022 5:19 AM CDT Is the patient experiencing any symptoms consistent with COVID (eg. Fever, cough, shortness of breath)?->No What is the reason for testing?->Screening prior to scheduled??procedure or surgery??(Batched) Daniele Morse MD LAB MICROBIOLOGY - GENERAL ORDER NOAH Final Result [facility] ([facility]) 1 [facility] Department of Laboratories [place], [place] [address] documented in this encounter Visit Diagnoses Diagnosis SHREYA (obstructive sleep apnea)- Primary Obstructive sleep apnea (adult) (pediatric) Hypersomnia with sleep apnea Hypersomnia with sleep apnea, unspecified Severe obesity (BMI 35.0-35.9 with comorbidity) (HCC) SHREYA (obstructive sleep apnea) Obstructive sleep apnea (adult) (pediatric) SHREYA (obstructive sleep apnea) Obstructive sleep apnea (adult) (pediatric) documented in this encounter Care Teams Tire Center Supervisor Relationship Specialty [place] [address] [address] [facility] 2 [place] [id number] PCP - General Family Medicine 02/21/19 documented as of this encounter
--- OUTSIDE RECORDS SUMMARY | 2024-08-10 02:08 | XMS_ITS | Encounter Summary ---
Author Organization [facility] Healthcare Address [address] [place] [address] Care Team Providers Care Medical Coder Name Role Phone Cassius Ortega NP Primary Care Provider [phone] Reason for Referral * Diagnostic Imaging (Routine) - Closed Specialty Diagnoses / Procedures Referred By Cara alvarez Referred To Contact Diagnoses Other forms of dyspnea Procedures XR Chest Pa Lateral 2 Views Timothy Crouch MD [address] [place], [place] [id number] Phone: tel: fax: [address] [address] Referral ID Status Reason Start Date Expiration Date Visits Re quested Visits Authorized [id number] Closed 03/04/2022 04/03/2023 1 1 Reason for Visit * Diagnostic Imaging (Routine) - Closed Specialty Diagnoses / Procedures Referred By Cara alvarez Referred To Contact Diagnoses Other forms of dyspnea Procedures XR Chest Pa Lateral 2 Views Timothy Crouch MD [address] [place] [address] Phone: tel: fax: [address] [address] Referral ID Status Reason Start Date Expiration Date Visits Re quested Visits Authorized [id number] Closed 03/04/2022 04/03/2023 1 1 Encounter Details Date Type Department Care Team (Latest Contact Info) Description 03/04/2022 12:13 PM CDT - 03/04/2022 11:59 PM CDT Hospital Encounter [facility] Diagnostic Imaging [address] [place] [id number] [place] [address] [facility] [address] [place] [address] Other forms of dyspnea Discharge Disposition: Discharge [...] file 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
--- OUTSIDE RECORDS SUMMARY | 2024-08-10 02:08 | XMS_ITS | Encounter Summary ---
Author Organization [facility] Healthcare Address [address] [place], [place] [address] Care Team Providers Care Telegrapher Agent Name Role Phone Cassius Ortega NP Primary Care Provider [phone] Reason for Referral * Diagnostic Imaging (Routine) - Closed Specialty Diagnoses / Procedures Referred By Cara alvarez Referred To Contact Diagnoses Encounter for screening mammogram for malignant neoplasm of breast Procedures Screening Mammogram Bilateral W Kelly Madera MD [address] [facility] [phone] [place] [address] Phone: tel: fax: [address] [address] Referral ID Status Reason Start Date Expiration Date Visits Re quested Visits Authorized [id number] Closed 01/22/2022 02/21/2023 1 1 Reason for Visit * Diagnostic Imaging (Routine) - Closed Specialty Diagnoses / Procedures Referred By Cara alvarez Referred To Contact Diagnoses Encounter for screening mammogram for malignant neoplasm of breast Procedures Screening Mammogram Bilateral W Kelly [place] MD [address] [facility] [phone] [place] [address] Phone: tel: fax: [address] [address] Referral ID Status Reason Start Date Expiration Date Visits Re quested Visits Authorized [id number] Closed 01/22/2022 02/21/2023 1 1 Encounter Details Date Type Department Care Team (Latest Contact Info) Description 01/22/2022 10:39 AM CDT - 01/22/2022 11:59 PM CDT Hospital Encounter [facility] Imaging and Radiology [address] [place] [address] Kelly Irizarry MD [address] [facility] MSC [phone] [place], [place] [id number] Encounter for screening mammogram for malignant neoplasm [...] on file 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
--- OUTSIDE RECORDS SUMMARY | 2024-08-10 02:08 | XMS_ITS | Encounter Summary ---
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 lOson patient sent him a message documented in [...] Final Res ult [facility] ([facility]) 1 [facility] Department [place] [address] * (ABNORMAL) Lipid panel (03/26/2022 12:45 PM CDT) [facility] Cholesterol 238(H) 30 - 199 mg/dL [facility] [...] BLOOD ORDERABLES Final Res ult [facility] ([place]) 1 [facility] Department [place] [address] documented in this encounter Visit Diagnoses Diagnosis Statin intolerance- Primary documented in this encounter Discontinued Medications Medication Sig Discontinue Reason Start Date End Da te atorvastatin (LIPITOR) 10 mg tablet TAKE 1 TABLET BY MOUTH EVERY DAY Side effects 12/30/2021 03/26/2022 documented as of this encounter Care Teams Design Center Consultant Relationship Specialty [place] [address] [address] [facility] [address] [address] PCP - General Family Medicine 02/21/19 documented as of this encounter
--- OUTSIDE RECORDS SUMMARY | 2024-08-10 02:08 | XMS_ITS | Encounter Summary ---
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 This test has not been cleared or approved by the U.S. Food and Drug Administration. Test Performed by: [facility] [place] [address] Car Servicer: Timothy Renae M.D. Ph.D.; CLIA# [id number] Blood 10/26/2022 10:2 5 AM CDT 10/26/2022 10:56 AM CDT Timothy Crouch MD LAB BLOOD ORDERABLES [facility] Result [facility] [address] [address] Department [place] [address] * Hepatic function panel (10/26/2022 [...] MD LAB BLOOD ORDERABLES nal Result [facility] [address] [address] Department [place] [address] documented in this encounter Visit Diagnoses Not on filedocumented in this encounter Care Teams Dry Cell Sealer Relationship Specialty [place] [address] [address] [facility] [address] [place] [address] PCP - General Family Medicine 02/21/19 Roya Andre PA [address] [place] [address] [facility] [address], [place] [address] Physician Process Assistant Orthopedic Surgery 04/09/22 Alina Higginbotham LCSW [address] [facility] [address] Geological Sample Tester Infectious Diseases 10/08/22 documented as of this encounter
--- OUTSIDE RECORDS SUMMARY | 2024-08-10 02:08 | XMS_ITS | Encounter Summary ---
Author Organization [facility] Address 670 [facility] 300 [place] [address] Care Team Providers Care Shredding Floor Equipment Operator Name Role Phone Cassius Ortega NP Primary Care Provider Roya Andre Unavailable [phone] Reason for Visit * Reason Onset Date Comments disability paperwork 04/13/2022 Encounter Details Date Type Department Care Team (Late st Contact Info) Description 04/13/2022 Telephone [facility] Orthopedics and Sports Medicine [address] [place] [address] [address], [place] [address] Minal [place], [place] disability paperwork [...] file 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
--- OUTSIDE RECORDS SUMMARY | 2024-08-10 02:08 | XMS_ITS | Encounter Summary ---
Author Organization [facility] Address 670 [facility] 300 [place] [address] Care Team Providers Care Unloader Operator Name Role Phone Cassius Ortega NP Primary Care Provider Roya Andre Unavailable [phone] Encounter Details Date Type Department Care Team (Late st Contact Info) Description 04/10/2022 Telephone [facility] Orthopedics and Sports Medicine 4 [facility] [address] [place] [address] Cuate Mcmullen MD [address] [place] [address] [address] CATES [address] [place] [address] Social History Tobacco Use Types [...] file 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
--- OUTSIDE RECORDS SUMMARY | 2024-08-10 02:08 | XMS_ITS | Encounter Summary ---
Author Organization [facility] Address [address] [facility] 300 [place] [address] Care Team Providers Care City Manager Name Role Phone Cassius Ortega NP Primary Care Provider Roya Andre Unavailable [phone] Reason for Visit * Reason Comments Post-op Encounter Details Date Type Department Care Team (Latest Contact Info) Description 04/22/2022 1:15 PM CDT Office Visit [facility] Orthopedics and Sports Medicine 4 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 She has started outpatient PT at [facility] in [facility] Vital signs: height is 165.1 cm [...] likely return 6-8 weeks. 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
--- OUTSIDE RECORDS SUMMARY | 2024-08-10 02:08 | XMS_ITS | Encounter Summary ---
Author Organization [facility] Address [address] [address] Care Team Providers Care Aerologist Name Role Phone Cassius Ortega NP Primary Care Provider Roya Andre Unavailable [phone] Reason for Visit * Reason Comments Follow-up Encounter Details Date Type Department Care Team (Late st Contact Info) Description 05/28/2022 11:15 AM CDT Office Visit [facility] Orthopedic and Sports Medicine [address] [place] [address] Roya Andre PA [address] [place] [address] [address] Aftercare following surgery of the [...] on file Legal Sex Female 1:09 AM REROLLER HAND Gender Identity Not on file Sexual [...] She has been completing outpatient PT at [facility] in [facility] Vital signs: height is 165.1 cm [...] in 2-4 week. 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 Roya Andre PA-C LLER HAND documented in this encounter Plan of Treatment Not on file documented as of this encounter Visit Diagnoses Diagnosis Aftercare following surgery of the musculoskeletal system- Primary Aftercare following surgery of the musculoskeletal system, NEC S/P arthroscopy of right shoulder documented in this encounter Care Teams Aerologist Relationship Specialty [place] [address] [address] PCP - General Family Medicine 02/21/19 Roya Andre PA [address] [facility] [address] [address] Physician Manager Staffing Orthopedic Surgery 04/09/22 documented as of this encounter
--- OUTSIDE RECORDS SUMMARY | 2024-08-10 02:08 | XMS_ITS | Encounter Summary ---
Author Organization [facility] Address 670 [facility] 300 [place] [address] Care Team Providers Care Health Unit Supervisor Name Role Phone Cassius Ortega NP Primary Care Provider [phone] Reason for Referral * Cardiology (Routine) - Closed Specialty Diagnoses / Procedures Referred By Contjennifer alvarez Referred To Contact Diagnoses Palpitations Procedures Event Monitor, 30 Day Event Charly Olson MD Phone: tel: fax: [facility] Referral ID Status Reason Start Date Expiration Date Visits Re quested Visits Authorized [id number] Closed 01/05/2022 02/04/2023 1 1 Encounter Details Date Type Department Care Team (Late st Contact Info) Description 01/05/2022 Orders Only [place] Hazardous Waste Technician [address] [facility] [address] [place] [address] Charly Olson MD [address] [place] [address] [place] [address] Palpitations (Primary Dx) Social History Tobacco Use [...] file 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
--- OUTSIDE RECORDS SUMMARY | 2024-08-10 02:08 | XMS_ITS | Encounter Summary ---
Author Organization [facility] Address [address] [place] [address] Care Team Providers Care Pneumatic System Conveyor Operator Name Role Phone Cassius Ortega NP Primary Care Provider Roya Andre Unavailable [phone] Encounter Details Date Type Department Care Team (Latest Contact Info) Description 04/09/2022 7:53 AM CDT - 04/09/2022 2:33 PM CDT Hospital Encounter [facility] Operating Room 1 [place] [address] Cuate Mcmullen MD [address] [place] [address] [address] CAT[address] [place] [address] Discharge Disposition: Discharge to home or self [...] on file 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 * General Anesthesia (Discharge Care) (Vietnamese) * Ascorbic Acid (Vitamin C) (By mouth) (Vietnamese) * Vitamin D (By mouth) (Vietnamese) * Ondansetron (By mouth, Into the mouth) (Vietnamese) * Oxycodone/Acetaminophen (By mouth) (Vietnamese) * Senna (By mouth) (Vietnamese) * Peripheral Nerve Block (Discharge Care) (Vietnamese) documented in this encounter Medications at Time [...] getting worse she like discuss surgical options. County Coroner completed by using M*Modal Fluency Direct speaking [...] history of Acute respiratory failure requiring reintubation ([facility]) ([facility]), Breast cancer ([facility]) ([facility]), History of chemotherapy, History of [...] keeps gettingworse she like discuss surgical options. County Coroner completed by using M*Modal Fluency Direct speaking [...] history of Acute respiratory failure requiring reintubation ([facility]) ([facility]), Breast cancer ([facility]) ([facility]), History of chemotherapy, History of [...] included. Operative Report SURGEON: Cuate Mcmullen MD State Tested Nursing Assistant: Gladys Mcgraw Scrub: Mc Vaughn RN; Tamara [...] Implant Name Type Inv. Item Serial No. Auto Parts Clerk Lot No. LRB No. Used Action [employer] SET IMPLANT ARTHREX FIBERTAK BICEPS STERILE LATEX FREE AR-3670 - [id number] ARTHREX INCSET IMPLANT ARTHREX FIBERTAK BICEPS STERILE LATEX FREE AR- 3670 [employer] Inc [id number] Right 1 Implanted Estimated Blood Loss: 10 [...] Mcmullen MD Date: 04/09/2022 Time: 11:57 AM County Coroner completed by using M*Modal Fluency Direct speaking software, therefore, transcriptionvariances may occur. * Perioperative Nursing Note - Kelly Moncada RN - 03/31/2022 4:32 PM CDT Covid screening on 04-07-22 here at [facility]. * Pre-Procedure Instructions - Kelly Moncada RN - 03/31/2022 4:25 PM CDT We are pleased that you and your doctor have chosen [facility] for your surgery. We hope [...] morning of surgery Use no make-up, nail citizen of [place], lotions, oils or powders on your skin. [...] 04/09 documented in this encounter Care Teams Pneumatic System Conveyor Operator Relationship Specialty [place] [address] [address] [facility] [address] [address] PCP - General Family Medicine 02/21/19 Roya Andre PA [address] [place] [address] [address] CAMPOS [address] [place] [address] Physician Ledger Clerk Orthopedic Surgery 04/09/22 documented as of this encounter
--- OUTSIDE RECORDS SUMMARY | 2024-08-10 02:08 | XMS_ITS | Encounter Summary ---
Author Organization [facility] Address 670 [facility] 300 [place] [address] Care Team Providers Care Generation Engineering Technologist Name Role Phone Cassius Ortega NP Primary Care Provider Roya Andre Unavailable [phone] Reason for Visit * Reason Comments Follow-up Encounter Details Date Type Department Care Team (Late st Contact Info) Description 05/08/2022 1:00 PM CDT Office Visit [place] Machine Stripper Cutter [address] [address] Charly Olson MD [address] [place] [address] [address] Regular check-up (Primary Dx); Primary hypertension; Moderate [...] on file 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 Gender Identity Not on file [...] Allergies Allergen Reactions Cefazolin Blisters and Redness Gihfadl-Clr-Eyi Reductase Inhibitors Muscle pain and Joint pain [...] hyperlipidemia documented in this encounter Care Teams Generation Engineering Technologist Relationship Specialty [place] [address] [address] BLDG 2 [facility] 406 [place] [address] PCP - General Family Medicine 02/21/19 Roya Andre PA 4 [facility] [address], [place] [address] Physician Package Sealer Orthopedic Surgery 04/09/22 documented as of this encounter
--- OUTSIDE RECORDS SUMMARY | 2024-08-10 02:08 | XMS_ITS | Encounter Summary ---
Author Organization [facility] Address 670 [facility] 300 [place] [address] Care Team Providers Care Resident Care Coordinator Name Role Phone Cassius Ortega NP Primary Care Provider [phone] Roya Andre Unavailable [phone] Encounter Details Date Type Department Care Team (Late st Contact Info) Description 04/09/2022 Telephone [facility] 4 [facility] [address] [place] [address] Daniele Morse MD [address] [place] [address] [address] [place] [address] Social History Tobacco Use Types [...] on file 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 * Telephone Encounter - Jv Mckeon - 04/09/2022 2:39 PM CDT Whitney from [facility] is requesting the next step for patient's after most recent sleep study. Isshe needing to be switched to a Bipap? Please advise. documented in this encounter Plan of Treatment Not on file documented as of this encounter Visit Diagnoses Not on filedocumented in this encounter Care Teams Resident Care Coordinator Relationship Specialty Start [place] [address] [address] [facility] [address] [address] PCP - General Family Medicine 02/21/19 Roya Andre PA [address] [place] [address] [facility] [address] [place] [address] Physician Security Alarm Installer Orthopedic Surgery 04/09/22 documented as of this encounter
--- OUTSIDE RECORDS SUMMARY | 2024-08-10 02:08 | XMS_ITS | Encounter Summary ---
Author Organization [facility] Address [address] [facility] [address] [place] [address] Care Team Providers Care Fur Puller Name Role Phone Cassius Ortega NP Primary Care Provider [phone] Roya Andre Unavailable [phone] Reason for Referral * Consultation (Routine) - Closed Specialty Diagnoses / Procedures Referred By Cara alvarez Referred To Contact Infectious Diseases Diagnoses Multiple persistent symptoms after COVID-19 [place] [address] [facility] BLDG [address] [place] [address] Phone: tel: fax: [facility] Infectious Diseases [address] 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
--- OUTSIDE RECORDS SUMMARY | 2024-08-10 02:09 | XMS_ITS | Encounter Summary ---
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 ? MILD difficulty breathing (e.g., minimal/no SOB at rest, SOB with walking, pulse <100) and still present when not coughing Protocols used: [id number] ACTION NEEDED: Please call Pt [phone] to schedule appointment tomorrow. Pt states on Wednesday started to have a cough, sore throat, felt winded walking. Pt took Home Covid-19 test-negative Wednesday. Pt had E-visit yesterday and was prescribed Medrol dose pack. Pt states her Niece is a ACCOUNTS PAYABLE ASSOCIATE and was told left lung diminished breath [...] in person. RN unable to schedule at [facility] and called backline Lashell who advised RN to task to Admin to schedule OV. Care advice: Fluids,warm fluids, cough drops, normal saline nasal spray, humidifier, warm salt water gargle, steamy bathroom. Call Back If: Difficulty breathing, chest pain, severe pain, fever, wheezing,or any worsening sx. Pt verbalizes understanding and is agreeable with this plan. HP TASK ADMIN. ER INSPECTOR ELECTRIC * Telephone Encounter - Ko Martin RN - 07/16/2021 1:50 PM DEICER INSPECTOR ELECTRIC Regarding: Cough, winded ----- Message from Janeth Martin sent at 07/16/2021 1:45 PM DEICER INSPECTOR ELECTRIC ----- Symptom Based Call Chief Complaint: Cough, winded Did you review 911/Red Flag List?Yes Duration: Started on Wednesday Why was appointment not scheduled? Red Flag Caller's Callback #: [phone] Additional Comments: Pt is calling stating she is winded and did a evisit yesterday on [employer]. Pt states she is on a z noy but think she has bronchitis. Pt states her niece who is a ACCOUNTS PAYABLE ASSOCIATE listened to her and stated she has congestion in her lung Does message need to be routed? Yes-Action Needed Symptoms:(!) Yes (Cough, congestion, runny nose, congestion) (07/16/2021 1:41 PM)Exposure: No (07/16/2021 1:41 PM)Positive COVID-19 test within the last 14 days:No (07/16/2021 1:41 PM) Following [facility] COVID-19 Scheduling Guidelines ER INSPECTOR ELECTRIC documented in this encounter Plan of Treatment Not on file documented as of this encounter Visit Diagnoses Not on filedocumented in this encounter Additional Health Concerns Infection Onset Date Last Indicated Resolved Time COVID: Suspected 07/15/2021 07/15/2021 07/29/2021 3:05 AM DEICER INSPECTOR ELECTRIC documented as of this encounter Care Teams Battery Wrecker Operator Relationship Specialty [place] [address] [address] BLDG [address] [address] PCP - General Family Medicine 02/21/19 documented as of this encounter
--- OUTSIDE RECORDS SUMMARY | 2024-08-10 02:09 | XMS_ITS | Encounter Summary ---
Author Organization [facility] Address [address] [address] Care Team Providers Care Truck Bracer Name Role Phone Cassius Ortega NP Primary Care Provider Encounter Details Date Type Department Care Team (Late st Contact Info) Description 07/15/2021 Orders Only [facility] Testing Site - [place], [place] [address] [place] [id number] Martha Norton NP [address] [place], [place] [id number] Exposure to SARS-associated coronavirus (Primary Dx) Social [...] on file Legal Sex Female 1:09 AM INCLUSION INTERN Gender Identity Not on file Sexual [...] No ?? Please select the performing region: [facility] ?? Referral Notes USION INTERN documented in this encounter Plan of Treatment Not on file documented as of this encounter Visit Diagnoses Diagnosis Exposure to SARS-associated coronavirus- Primary documented in this encounter Additional Health Concerns Infection Onset Date Last Indicated Resolved Time COVID: Suspected 07/15/2021 07/15/2021 07/29/2021 3:05 AM INCLUSION INTERN documented as of this encounter Care Teams Truck Bracer Relationship Specialty [place] [address] [address]NOLD [facility] [address] [address] PCP - General Family Medicine 02/21/19 documented as of this encounter
--- OUTSIDE RECORDS SUMMARY | 2024-08-10 02:09 | XMS_ITS | Encounter Summary ---
Author Organization [facility] Address [address] [address] Care Team Providers Care Visual Supervisor Name Role Phone Cassius Ortega NP Primary Care Provider [phone] Reason for Visit * Diagnostic Imaging (Routine) - Closed Specialty Diagnoses / Procedures Referred By Contac t Referred To Contact Diagnoses Right shoulder pain, unspecified chronicity Procedures XR Shoulder Right 2 or More Views Cuate Mcmullen MD [address] [place] [address] [address] CAT[address] [address] Phone: tel: fax: [facility] Referral ID Status Reason Start Date Expiration Date Visits Re quested Visits Authorized [id number] Closed 09/12/2021 10/12/2022 1 1 Encounter Details Date Type Department Care Team (Late st Contact Info) Description 09/12/2021 8:05 AM TIPPLE SUPERVISOR Ancillary Procedure [facility] Imaging at [address] [address] Social History Tobacco Use Types [...] on file Legal Sex Female 1:09 AM TIPPLE SUPERVISOR Gender Identity Not on file Sexual [...] Read Routine (OP Routine) 09/12/2021 10:15 AM TIPPLE SUPERVISOR Right shoulder pain, unspecified chronicity documented in this encounter Results * XR Shoulder Right 2 or More Views (09/12/2021 10:15 AM TIPPLE SUPERVISOR) Anatomical Region Laterality Modality Upper Extremities, Shoulder Right Digi joe Radiography Narrative 09/12/2021 10:54 AM TIPPLE SUPERVISOR Four views right shoulder show no fracture subluxation dislocation type 2 acromion AC joint arthritis us Cuate Mcmullen MD IMG XR PROCEDURES Final Resu lt documented in this encounter Visit Diagnoses Not on filedocumented in this encounter Care Teams Visual Supervisor Relationship Specialty Start [place] [address] [address]LD[address] [address] PCP - General Family Medicine 02/21/19 documented as of this encounter
--- OUTSIDE RECORDS SUMMARY | 2024-08-10 02:09 | XMS_ITS | Encounter Summary ---
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 Caller's Callback #: [phone] Did you relay expectation for processing (up to 24 hours)? yes documented in this encounter Plan of Treatment Not on file documented as of this encounter Visit Diagnoses Not on filedocumented in this encounter Care Teams Vp Data Relationship Specialty [place] [address] [address] PCP - General Family Medicine 02/21/19 documented as of this encounter
--- OUTSIDE RECORDS SUMMARY | 2024-08-10 02:09 | XMS_ITS | Encounter Summary ---
Author Organization [facility] Address [address] [address] Care Team Providers Care Poultry Processor Name Role Phone Cassius Ortega NP Primary Care Provider Reason for Referral * Diagnostic Imaging (Routine) - Closed Specialty Diagnoses / Procedures Referred By Contjennifer t Referred To Contact Diagnoses Cough Procedures XR Chest Pa Lateral 2 [place] [address] [address] [facility] [address] [address] Phone: tel: fax: [address] [address] Referral ID Status Reason Start Date Expiration Date Visits Re quested Visits Authorized [id number] Closed 12/15/2021 01/14/2023 1 1 Encounter Details Date Type Department Care Team (Late st Contact Info) Description 12/15/2021 Orders Only Family Care at [address] [address] [place] [address] [address]AN DG [address] [address] Cough (Primary Dx) Social History [...] on file 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 us Cassius Ortega DIPPER OPERATOR IMG XR PROCEDURES Final Resul t [...] 12/15/2021 4:40 PM CDT us Cassius Ortega DIPPER OPERATOR LAB BLOOD ORDERABLES Final Re sult [facility] [address] [address] Department [place] [address] * (ABNORMAL) CBC with auto differential (12/15/2021 [...] 12/15/2021 4:40 PM CDT us Cassius Ortega DIPPER OPERATOR LAB BLOOD ORDERABLES Final Re sult [facility] [address] [address] Department [place] [address] documented in this encounter Visit Diagnoses Diagnosis Cough- Primary Cough documented in this encounter Care Teams Poultry Processor Relationship Specialty Start Date End Date Cassius Ortega, NAWAF [address] [address] [place] [address] PCP - General Family Medicine 02/21/19 documented as of this encounter
--- OUTSIDE RECORDS SUMMARY | 2024-08-10 02:09 | XMS_ITS | Encounter Summary ---
Author Organization [facility] Address [address] [facility] 300 [place] [address] Care Team Providers Care Environmental Health Safety Manager Name Role Phone Cassius Ortega NP Primary Care Provider [phone] Reason for Visit * Reason Onset Date Comments Test Results 05/07/2021 Encounter Details Date Type Department Care Team (Late st Contact Info) Description 05/07/2021 Telephone Family Care at [address] [address] Marisol West NP [address] [facility] 110 [place] [address] Test Results Social History Tobacco Use Types [...] on file 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
--- OUTSIDE RECORDS SUMMARY | 2024-08-10 02:09 | XMS_ITS | Encounter Summary ---
Author Organization [facility] Address 670 [facility] 300 [place] [address] Care Team Providers Care Medical Safety Director Name Role Phone Cassius Ortega NP Primary Care Provider [phone] Reason for Visit * Reason Comments Follow-up Thyroid levels and h ep B vaccine Encounter Details Date Type Department Care Team (Late st Contact Info) Description 10/27/2021 3:00 PM CDT Office Visit Family Care at [facility] [address] [address] [place] [address] [address] Primary hypertension (Primary Dx); Hypothyroidism, [...] on file 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 Identifiablecauses of hypertension include a [...] is usually quite accurate but there are heavy equipment diesel mechanic areas that can and often occur. All [...] metabolic panel (10/27/2021 3:44 PM CDT) Pathologist [facility] Sodium 138 135 - 145 mmol/L CERNER [...] CDT 10/27/2021 8:55 PM CDT Brook Powers NATURAL RESOURCES ENGINEER LAB BLOOD ORDERABLES Final Result Performing Organization Address City/[facility]/ZIP Co de Phone Number [facility] [address] [address] Department [employer] [place], [place] [id number] * (ABNORMAL) TSH reflex to free T4 (10/27/2021 3:44 PM CDT) TSH 0.21(L) 0.30 - 4.20 mcIUnit/mL [facility] CH Blood 10/27/2021 3:44 PM CDT 10/27/2021 8:55 PM CDT Brook Powers NATURAL RESOURCES ENGINEER LAB BLOOD ORDERABLES Final Result Performing Organization Address [facility] Co de Phone Number [facility] [address] [address] Department [employer] [place] [address] documented in this encounter Visit Diagnoses Diagnosis [...] 03/31/2022 added in this encounter Care Teams Medical Safety Director Relationship Specialty Start [place] [address] [address] [facility] [address] [address] PCP - General Family Medicine 02/21/19 documented as of this encounter
--- OUTSIDE RECORDS SUMMARY | 2024-08-10 02:09 | XMS_ITS | Encounter Summary ---
Author Organization [facility] Address 6[address] [facility] 300 [place] [address] Care Team Providers Care Bilingual Kindergarten Teacher Name Role Phone Cassius Ortega NP Primary Care Provider [phone] Reason for Visit * Reason Comments Injections Hep B Encounter Details Date Type Department Care Team (Latest Contact Info) Description 07/01/2021 9:00 AM NURSES MEDICAL ASSISTANTS PHLEBOTOMISTS Clinical Support Family Care at [address] [address] Need for hepatitis B booster [...] on file Legal Sex Female 1:09 AM NURSES MEDICAL ASSISTANTS PHLEBOTOMISTS Gender Identity Not on file Sexual Orientation [...] 07/01/2021 documented in this encounter Care Teams Bilingual Kindergarten Teacher Relationship Specialty Start [place] [address] [address] [address] PCP - General Family Medicine 02/21/19 documented as of this encounter
--- OUTSIDE RECORDS SUMMARY | 2024-08-10 02:09 | XMS_ITS | Encounter Summary ---
Author Organization [facility] Address 670 [facility] 300 [place] [address] Care Team Providers Care Correction Officer Reformatory Name Role Phone Cassius Ortega NP Primary Care Provider [phone] Encounter Details Date Type Department Care Team (Late st Contact Info) Description 12/15/2021 10:15 AM CDT Telemedicine Family Care at [address] [address] Cassius Ortega NP [address] [place] [address] [address] Long COVID (Primary Dx); Cough; [...] on file Legal Sex Female 1:09 AM SOAP GRINDER Gender Identity Not on file Sexual Orientation Not on file 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 Cough (R05.9) Comments: will get chest xray [...] in her [place] of [place]. The patient visit started at 1115 and [...] telephone or video visit [facility] emergency[facility] them. After being given [...] type documented in this encounter Care Teams Correction Officer Reformatory Relationship Specialty [place] [address] JA[address] ARNOLD [facility] [address] [address] PCP - General Family Medicine 02/21/19 documented as of this encounter
--- OUTSIDE RECORDS SUMMARY | 2024-08-10 02:09 | XMS_ITS | Encounter Summary ---
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
--- OUTSIDE RECORDS SUMMARY | 2024-08-10 02:09 | XMS_ITS | Encounter Summary ---
Author Organization [facility] Address 670 [facility] 300 [place] [address] Care Team Providers Care Mail Sorting Supervisor Name Role Phone Cassius Ortega NP Primary Care Provider [phone] Reason for Visit * Reason Comments Hypertension Follow-up Encounter Details Date Type Department Care Team (Late st Contact Info) Description 05/02/2021 11:15 AM CDT Office Visit Hobgood Casket Inspector [address] [place] [address] Charly Olson MD [address] [place] [address] [address] Primary hypertension (Primary Dx); Hyperlipidemia, unspecified hyperlipidemia [...] on file Legal Sex Female 1:09 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 losartan (COZAAR) 100 mg tablet Take [...] type documented in this encounter Care Teams Mail Sorting Supervisor Relationship Specialty [place] [address] [address] [address] PCP - General Family Medicine 02/21/19 documented as of this encounter
--- OUTSIDE RECORDS SUMMARY | 2024-08-10 02:09 | XMS_ITS | Encounter Summary ---
Author Organization [facility] Medical [facility] Address 670 [facility] [address] [place] [address] Care Team Providers Care Inventory Specialist Name Role Phone Cassius Ortega NP Primary Care Provider [phone] Reason for Referral * Consultation (Routine) - Closed Specialty Diagnoses / Procedures Referred By Cara alvarez Referred To Contact Otolaryngology Diagnoses Bilateral chronic serous otitis media Cassius Ortega NP [address] [place] [address] [address] Phone: tel: fax: [facility]) - [facility] ENT [address] [place] [address] Medical Office Building 2 [address] [place] [address] Phone: tel: fax: Referral ID Status Reason Start Date Expiration Date V isits Requested Visits Authorized [id number] Closed Specialty Services Required 12/15/2021 08/01/2022 12 12 Question Answer Please select the performing region: [facility] (All Locations) [167] # of visits: 1 Comments [facility] Encounter Details Date Type Department Care Team (Late st Contact Info) Description 12/15/2021 Orders Only Family Care at [address] [place] [address] [place] [address] [facility] 2 [facility] [address] [place] [address] Bilateral chronic serous otitis media (Primary Dx); [...] on file 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
--- OUTSIDE RECORDS SUMMARY | 2024-08-10 02:09 | XMS_ITS | Encounter Summary ---
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
--- OUTSIDE RECORDS SUMMARY | 2024-08-10 02:09 | XMS_ITS | Encounter Summary ---
Author Organization [facility] Address [address] [address] Care Team Providers Care Crm Marketing Analyst Name Role Phone Cassius Ortega NP Primary Care Provider [phone] Reason for Referral * Sleep Medicine (Routine) - Closed Specialty Diagnoses / Procedures Referred By Cara alvarez Referred To Contact Diagnoses Obstructive sleep apnea syndrome Procedures Portable/[place] [address] [address]AN DG [address] [address] Phone: tel: fax: [address] [address] Referral ID Status Reason Start Date Expiration Date Visits Re quested Visits Authorized [id number] Closed 04/18/2021 07/17/2021 1 1 Encounter Details Date Type Department Care Team (Late st Contact Info) Description 04/14/2021 9:30 AM CDT Office Visit Family Care at [address] [address] [place] [address] JAIR KHAN DG [address] [address] Hypothyroidism, unspecified type (Primary Dx); [...] on file Legal Sex Female 1:09 AM TIME BUYER Gender Identity Not on file Sexual [...] this encounter Progress Notes * Cassius Ortega, AUTOMOTIVE SERVICE MANAGEMENT TEACHER - 04/14/2021 9:30 AM CDT Subjective/Objective Patient ID: [id number] Paz is a 46 y.o. female. Chief Complaint No chief complaint on file. Pt here for follow up on her htn and hypothyroidism. She states she has had a couple of episodes ofheart fluttering/palpitations which was directly followed by a cough. She states she has been told she has sleep apnea - a BEAM MACHINE OPERATOR advised her that when she was sedated [...] the device and application by the registered textile technologist at the [facility]. ??The study included channels of heart rate, body position, respiratory effort, respiratory airflow, snoring and oxygen saturation analysis. ??The study was a analyzed by the textile technologist and the raw data was reviewed [...] continued 7. Avoid alcohol sedatives and other TIMBER TRIMMER depression that may worsen sleep apnea and [...] be taken into consideration. us Cassius Ortega AUTOMOTIVE SERVICE MANAGEMENT TEACHER [facility]EP CENTER ORDERABLES Final Result * TSH (05/02/2021 11:59 AM CDT) Thyroid Stimulating Hormone 0.33 0.30 - 4.20 mcIUnit/mL [facility] Blood 05/02/2021 11:5 9 AM CDT 05/02/2021 5:14 PM CDT us Cassius Ortega NP LAB BLOOD ORDERABLES Final Re sult [facility] [address] [address] Department [place] [address] documented in this encounter Visit Diagnoses Diagnosis [...] 04/14/2021 documented in this encounter Care Teams Crm Marketing Analyst Relationship Specialty Start Date End Date Cassius Ortega, NAWAF [address] JAIR KHAN [facility] [address] [address] PCP - General Family Medicine 02/21/19 documented as of this encounter
--- OUTSIDE RECORDS SUMMARY | 2024-08-10 02:09 | XMS_ITS | Encounter Summary ---
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 [address] [address] PCP - General Family Medicine 02/21/19 documented as of this encounter
--- OUTSIDE RECORDS SUMMARY | 2024-08-10 02:09 | XMS_ITS | Encounter Summary ---
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 73 m2 EDG[facility] [...] CDT 10/27/2021 8:58 PM CDT Brook Powers KIOSK SALES REPRESENTATIVE LAB BLOOD ORDERABLES Final Result Performing Organization Address City/[facility] Co de Phone Number [facility] [address] [address] Department [place] [address] * T4, free (10/27/2021 3:44 PM CDT) Free T4 1.36 0.90 - 1.70 ng/dL [facility] Blood 10/27/2021 3:44 PM CDT 10/27/2021 8:58 PM CDT Brook Powers NP LAB BLOOD ORDERABLES Final Result Performing Organization Address City/[facility] Co de Phone Number [facility] [address] [address] Khan Department [place] [address] * (ABNORMAL) Comprehensive metabolic panel (10/27/2021 3:44 [...] CDT 10/27/2021 8:55 PM CDT Brook Powers KIOSK SALES REPRESENTATIVE LAB BLOOD ORDERABLES Final Result Performing Organization Address City/[facility]/ZIP Co de Phone Number [facility] [address] [place] [place] [address] * (ABNORMAL) TSH reflex to free T4 (10/27/2021 3:44 PM CDT) TSH 0.21(L) 0.30 - 4.20 mcIUnit/mL C[facility]ER CH Blood 10/27/2021 3:44 PM CDT 10/27/2021 8:55 PM CDT Brook Powers NP LAB BLOOD ORDERABLES Final Result Performing Organization Address City/[facility]/ZIP Co de Phone Number [facility] [address] [address] Department [place] [address] documented in this encounter Visit Diagnoses Diagnosis Hypothyroidism, unspecified type Primary hypertension Unspecified essential hypertension documented in this encounter Care Teams Cosmetic Manager Relationship Specialty Start [place] [address] [address] KHAN BLDG 2 [facility] 406 [place] [address] PCP - General Family Medicine 02/21/19 documented as of this encounter
--- OUTSIDE RECORDS SUMMARY | 2024-08-10 02:09 | XMS_ITS | Encounter Summary ---
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 Gender Identity Not on file [...] LAB BLOOD ORDERABLES Final Re sult [facility] [address] [address] Department [place] [address] * (ABNORMAL) Differential, auto (12/15/2021 12:44 PM CDT) Neutrophil abs 7.8(H) 1.7 - 6.5 K/cumm [facility]NER Imm gran abs 0.1 0.0 - 0.1 K/cumm [facility] Lymphocyte abs 1.6 0.8 - 3.3 K/cumm [facility] Monocyte abs 0.2 0.2 - 0.8 K/cumm [facility] Eosinophil abs 0.0 0.0 - 0.5 K/cumm [facility] Basophil abs 0.0 0.0 - 0.1 K/cumm [facility] Neutrophil pct 81.1 % [facility] [...] revised on 2017. Monocyte pct 1.6 % [facility] Comment: Interpretive Data Percent cell count reference ranges are not reported, since discordance with absolute values may lead to misinterpretation of CBC data. Current Interpretive Data was last revised on 2017. Eosinophil pct 0.1 % [facility] Comment: Interpretive Data Percent cell count reference ranges are not reported, since discordance with absolute values may lead to misinterpretation of CBC data. Current Interpretive Data was last revised on 2017. Basophil pct 0.3 % [facility] Comment: Interpretive Data Percent cell count reference ranges are not reported, since discordance with absolute values may lead to misinterpretation of CBC data. Current Interpretive Data was last revised on 2017. Blood 12/15/2021 12:4 4 PM CDT 12/15/2021 4:40 PM CDT us Cassius Ortega TUNG NUT GROWER LAB BLOOD ORDERABLES Final Re sult [facility] [address] [address] Department [place] [address] * (ABNORMAL) CBC with auto differential (12/15/2021 12:44 PM CDT) WBC 9.7 3.8 - 9.9 K/cumm [facility] Hgb 11.8(L) 11.9 - 15.5 g/dL [facility] Hct 37.1 35.6 - 45.5 % [facility] Plt 275 150 - 400 K/cumm [facility] MPV 9.4 9.1 - 12.3 fL [facility] RBC 4.02 3.90 - 5.20 M/cumm [facility] MCV 92.3 81.3 - 96.4 fL [facility] MCH 29.4 27.1 - 33.3 pg [facility] MCHC 31.8(L) 32.3 - 35.7 g/dL [facility] RDW CV 13.4 11.1 - 14.9 % [facility] RDW SD 45.3 35.7 - 48.1 fL [facility] NRBC abs 0.00 0.00 - 0.01 K/cumm [facility] Blood 12/15/2021 12:4 4 PM CDT 12/15/2021 4:40 PM CDT us Cassius Ortega TUNG NUT GROWER LAB BLOOD ORDERABLES Final Re sult [facility] [address] [address] Department [place] [address] * (ABNORMAL) Comprehensive metabolic panel (12/15/2021 12:44 [...] LAB BLOOD ORDERABLES Final Re sult [facility] [address] [address] Department [place] [address] documented in this encounter Visit Diagnoses Diagnosis Cough documented in this encounter Care Teams Cytotechnologist Supervisor Relationship Specialty Start Date End Date Cassius Ortega, NAWAF [address] [address] [place] [address] PCP - General Family Medicine 02/21/19 documented as of this encounter
--- OUTSIDE RECORDS SUMMARY | 2024-08-10 02:09 | XMS_ITS | Encounter Summary ---
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
--- OUTSIDE RECORDS SUMMARY | 2024-08-10 02:09 | XMS_ITS | Encounter Summary ---
Author Organization [facility] Address [address] [facility] [address] [place] [address] Care Team Providers Care Header Operator Name Role Phone Cassius Ortega NP Primary Care Provider [phone] Reason for Visit * Reason Onset Date Comments Medical Question/Miscellaneous 06/16/2021 Encounter Details Date Type Department Care Team (Late st Contact Info) Description 06/16/2021 Telephone Family Care at [facility] [address] [address] Cassius Ortega NP [address] [place] [address] 2 [facility] [address] [place] [address] Medical Question/Miscellaneous Social History Tobacco [...] on file Legal Sex Female 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 Gender Identity Not on file Sexual Orientation [...] Transferred to backline Caller???s Call back #: [phone] Does message need to be routed?No FRONT PRESSER documented in this encounter Plan of Treatment Not on file documented as of this encounter Visit Diagnoses Not on filedocumented in this encounter Additional Health Concerns Infection Onset Date Last Indicated Resolved Time COVID: Suspected 07/15/2021 07/15/2021 07/29/2021 3:05 AM VEST FRONT PRESSER documented as of this encounter Care Teams Header Operator Relationship Specialty [place] [address] [address] [facility] [address] [address] PCP - General Family Medicine 02/21/19 documented as of this encounter
--- OUTSIDE RECORDS SUMMARY | 2024-08-10 02:09 | XMS_ITS | Encounter Summary ---
Author Organization [facility] Address [address] [address] Care Team Providers Care Stacker Attendant Name Role Phone Cassius Ortega NP Primary Care Provider Reason for Referral * Diagnostic Imaging (Routine) - Closed Specialty Diagnoses / Procedures Referred By Contac t Referred To Contact Diagnoses Right shoulder pain, unspecified chronicity Procedures XR Shoulder Right 2 or More Views Cuate Mcmullen MD [address] [facility] [address] [place] [address] [address] Phone: tel: fax: [facility] Referral ID Status Reason Start Date Expiration Date Visits Re quested Visits Authorized [id number] Closed 09/12/2021 10/12/2022 1 1 SCIENTIST Reason for Visit * Reason Comments Pain Encounter Details Date Type Department Care Team (Latest Contact Info) Description 09/12/2021 10:00 AM QC SCIENTIST Office Visit [facility] Orthopedic and Sports Medicine [address] [place] [phone] Cuate Mcmullen MD [address] [facility] [address] [place] [address] [place] [address] Right shoulder pain, unspecified chronicity [...] on file Legal Sex Female 1:09 AM QC SCIENTIST Gender Identity Not on file Sexual Orientation Not on file 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 Cheese Cook completed by using M*Modal Fluency Direct speaking [...] history of Acute respiratory failure requiring reintubation ([facility]) ([facility]), Breast cancer ([facility]) ([facility]), History of chemotherapy, History of radiation [...] in the office today. TARIK Strong MD SCIENTIST documented in this encounter Plan of Treatment Not on file documented as of this encounter Procedures Procedure Name Priority Date/Time Associated Diagnosis Comments XR SHOULDER RIGHT 2 OR MORE VIEWS Schedule Routine, Read Routine (OP Routine) 09/12/2021 10:15 AM QC SCIENTIST Right shoulder pain, unspecified chronicity documented in this encounter Results * XR Shoulder Right 2 or More Views (09/12/2021 10:15 AM QC SCIENTIST) Anatomical Region Laterality Modality Upper Extremities, Shoulder Right Digi joe Radiography Narrative 09/12/2021 10:54 AM QC SCIENTIST Four views right shoulder show no fracture subluxation dislocation type 2 acromion AC joint arthritis us Cuate Mcmlulen MD IMG XR PROCEDURES Final Resu lt documented in this encounter Visit Diagnoses Diagnosis Right shoulder pain, unspecified chronicity- Primary Pre-operative exam Unspecified pre-operative examination Impingement syndrome of right shoulder Biceps tendinitis of right upper extremity Arthritis of right acromioclavicular joint Nontraumatic incomplete tear of right rotator cuff documented in this encounter Care Teams Stacker Attendant Relationship Specialty Start [place] [address] [address] [facility] [address] [address] PCP - General Family Medicine 02/21/19 documented as of this encounter
--- OUTSIDE RECORDS SUMMARY | 2024-08-10 02:09 | XMS_ITS | Encounter Summary ---
Author Organization [facility] Address [address] [facility] [address] [place] [address] Care Team Providers Care Bone Process Operator Name Role Phone Cassius Ortega NP Primary Care Provider [phone] Reason for Visit * Reason Onset Date Comments surgery clearance 11/17/2021 Encounter Details Date Type Department Care Team (Late st Contact Info) Description 11/17/2021 Telephone [facility] Orthopedics and Sports Medicine [address] [place] [address] [address], [place] [address] Tiffanie Majano RMA surgery clearance [...] on file Legal 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 She stated that she needs to reschedule her surgery. Please call the patient to schedule. She would like sometime in fall. documented in this encounter Plan of Treatment Not on file documented as of this encounter Visit Diagnoses Not on filedocumented in this encounter Care Teams Bone Process Operator Relationship Specialty [place] [address] [address] [facility] [address] [place] [address] PCP - General Family Medicine 02/21/19 documented as of this encounter
--- OUTSIDE RECORDS SUMMARY | 2024-08-10 02:09 | XMS_ITS | Encounter Summary ---
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 She was given instructions regarding follow up and timeframe if symptoms worsen or don???t improve. These instructions were included in the girnarsoft message reply tothe patient. Patient Instructions were [...] Referral Reason: Specialty Services Required Referral Location: [facility] Requested Specialty: Family Medicine Number of Visits Requested: 1 Martha Norton NP ECONOMIST documented in this encounter Plan of Treatment Not on file documented as of this encounter Visit Diagnoses Diagnosis Viral upper respiratory tract infection with cough- Primary documented in this encounter Care Teams Photographic Editor Relationship Specialty [place] [address] [address] [facility] [address] [place] [address] PCP - General Family Medicine 02/21/19 documented as of this encounter
--- OUTSIDE RECORDS SUMMARY | 2024-08-10 02:09 | XMS_ITS | Encounter Summary ---
Author Organization [facility] Healthcare Address [address] [place] [address] Care Team Providers Care Athletic Equipment Manager Name Role Phone Cassius Ortega NP Primary Care Provider [phone] Reason for Referral * Sleep Medicine (Routine) - Closed Specialty Diagnoses / Procedures Referred By Cara alvarez Referred To Contact Diagnoses Obstructive sleep apnea syndrome Procedures Portable/[place] [address] [address] [facility] 2 [place] [address] Phone: tel: fax: [address] [phone] Referral ID Status Reason Start Date Expiration Date Visits Re quested Visits Authorized [id number] Closed 04/18/2021 07/17/2021 1 1 Reason for Visit * Sleep Medicine (Routine) - Closed Specialty Diagnoses / Procedures Referred By Cara alvarez Referred To Contact Diagnoses Obstructive sleep apnea syndrome Procedures Portable/[place] [address] [address] [facility] 2 [place] [address] Phone: tel: fax: [address] [phone] Referral ID Status Reason Start Date Expiration Date Visits Re quested Visits Authorized [id number] Closed 04/18/2021 07/17/2021 1 1 Encounter Details Date Type Department Care Team (Latest Contact Info) Description 05/01/2021 2:00 PM CDT - 05/01/2021 11:59 PM CDT Hospital Encounter [facility] [address] [place] [phone] [place] [address] [facility] [address] [place] [address] [place] [address] [address] [facility] [address] [place] [address] Obstructive sleep apnea syndrome Discharge [...] on file Legal Sex Female 1:09 AM CIGARETTE PACKAGE EXAMINER Gender Identity Not on file Sexual Orientation [...] night diagnostic study utilizing unattended FDA approved ResZykis apnea link home air portable monitoring device investigating for obstructive sleep apnea. Thepatient was provided instruction of the device and application by the registered automation technologist at the Sleep [facility] Center. The study included channels of heart rate, body position, respiratory effort, respiratory airflow, snoring and oxygen saturation analysis. The study was a analyzed by the automation technologist and the raw data was reviewed [...] continued 7. Avoid alcohol sedatives and other USPS LETTER CARRIER depression that may worsen sleep apnea and [...] the device and application by the registered automation technologist at the [facility]. ??The study included channels of heart rate, body position, respiratory effort, respiratory airflow, snoring and oxygen saturation analysis. ??The study was a analyzed by the automation technologist and the raw data was reviewed [...] continued 7. Avoid alcohol sedatives and other USPS LETTER CARRIER depression that may worsen sleep apnea and [...] (pediatric) documented in this encounter Care Teams Athletic Equipment Manager Relationship Specialty Start Date End Date Cassius Ortega, NAWAF [address] [address] [facility] [address] [address] PCP - General Family Medicine 02/21/19 documented as of this encounter
--- OUTSIDE RECORDS SUMMARY | 2024-08-10 02:09 | XMS_ITS | Encounter Summary ---
Author Organization [facility] Address 6[address] [facility] [address] [place] [address] Care Team Providers Care Data Security Coordinator Name Role Phone Cassius Ortega NP Primary Care Provider Encounter Details Date Type Department Care Team (Late st Contact Info) Description 08/19/2021 1:15 PM QA SOFTWARE TESTER Office Visit [facility] 4 [facility] [address] [place] [address] Daniele Morse MD [address] [place] [address] [address] [place] [address] Moderate obstructive sleep apnea (Primary Dx); Hypersomnia with sleep apnea; Severe obesity (BMI 35.0-35.9 with comorbidity) (CMS/HCC) ([facility]) Social History Tobacco Use Types Packs/Day [...] on file Legal Sex Female 1:09 AM QA SOFTWARE TESTER Gender Identity Not on file Sexual Orientation Not on file 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 documented as of this encounter Last Filed Vital Signs Vital Sign Reading Time Taken Comments Blood Pressure 119/79 08/19/2021 1:19 PM QA SOFTWARE TESTER Pulse 67 08/19/2021 1:19 PM QA SOFTWARE TESTER Temperature - - Respiratory Rate - - Oxygen Saturation - - Inhaled Oxygen Concentration - - Weight 102.2 kg (225 lb 3.2 oz) 08/19/2021 1:19 PM QA SOFTWARE TESTER Height 165.1 cm (5' 5 ) 08/19/2021 1:19 PM QA SOFTWARE TESTER Body Mass Index 37.48 08/19/2021 1:19 PM QA SOFTWARE TESTER documented in this encounter Progress Notes * [...] for air, talking sleep and awakening with wharf helper headaches. Denies witnessed stoppage with while sleeping, restless sleep, talking walking sleep, creepy crawly feeling legs, leg jerks, urge to move her legs and nighttime wheezing awakens 2-3 times, occasionally go to the restroom. Takes less than 5 minutes to fall asleep. Awakens with a p erception of usually non refreshing sleep. Does feel fatigued and tired in the daytime [place] Sleepiness Scale score is 4. Does not [...] Not on file Occupational History ??? Occupation: [employer] Employer: [employer] Tobacco Use ??? Smoking status: Never Smoker [...] in losing weight. Patient verbalizes an understanding. SOFTWARE TESTER SOFTWARE TESTER documented in this encounter Plan of Treatment Not on file documented as of this encounter Visit Diagnoses Diagnosis Moderate obstructive sleep apnea- Primary Hypersomnia with sleep apnea Hypersomnia with sleep apnea, unspecified Severe obesity (BMI 35.0-35.9 with comorbidity) ([facility]) documented in this encounter Care Teams Data Security Coordinator Relationship Specialty [place] [address] [place] [address] PCP - General Family Medicine 02/21/19 documented as of this encounter
--- OUTSIDE RECORDS SUMMARY | 2024-08-10 02:09 | XMS_ITS | Encounter Summary ---
Author Organization [facility] Address [address] [facility] [address] [place] [address] Care Team Providers Care Plastic Jig And Fixture Builder Name Role Phone Cassius Ortega NP Primary Care Provider [phone] Reason for Visit * Reason Onset Date Comments Test Results 12/04/2020 Encounter Details Date Type Department Care Team (Late st Contact Info) Description 12/04/2020 Telephone Family Care at [address] [address] Lita Murguia CMA Test Results [...] file Legal Sex Female 1:09 AM SENIOR ECONOMIST Gender Identity Not on file Sexual [...] on filedocumented in this encounter Care Teams Plastic Jig And Fixture Builder Relationship Specialty [place] [address] [address] [address] PCP - General Family Medicine 02/21/19 documented as of this encounter
--- OUTSIDE RECORDS SUMMARY | 2024-08-10 02:09 | XMS_ITS | Encounter Summary ---
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 Mcmullen per patients request END TESTER * Telephone Encounter - Allison Harris MA - 08/25/2021 5:24 PM DRY END TESTER Patient called and left voicemail. She would like to schedule with Dr. Mcmullen to discuss surgery. Please call patient to schedule. END TESTER documented in this encounter Plan of Treatment Not on file documented as of this encounter Visit Diagnoses Not on filedocumented in this encounter Care Teams Resource Paraprofessional Relationship Specialty [place] [address] [address] [address] PCP - General Family Medicine 02/21/19 documented as of this encounter
--- OUTSIDE RECORDS SUMMARY | 2024-08-10 02:09 | XMS_ITS | Encounter Summary ---
Author Organization [facility] Healthcare Address [address] [place] [address] Care Team Providers Care Accounting Manager Assistant Controller Name Role Phone Cassius Ortega NP Primary Care Provider [phone] Encounter Details Date Type Department Care Team (Late st Contact Info) Description 05/02/2021 12:05 PM CDT Lab [address] [address] Brittani [place]osto [place] [id number] [place] [address] Cassius Or[place] [id number] [place] [address] [address] [place] [id number] Hypothyroidism, unspecified type Discharge Disposition: Discharge to [...] file Legal Sex Female 1:09 AM INDUSTRIAL ORGANIZATIONAL PSYCHOLOGIST Gender Identity Not on file Sexual Orientation [...] LAB BLOOD ORDERABLES Final Re sult [facility] [address] [address] Department [place] [address] documented in this encounter Visit Diagnoses Diagnosis Hypothyroidism, unspecified type documented in this encounter Care Teams Accounting Manager Assistant Controller Relationship Specialty Start [place] [address] [address] [place] [address] PCP - General Family Medicine 02/21/19 documented as of this encounter
--- OUTSIDE RECORDS SUMMARY | 2024-08-10 02:09 | XMS_ITS | Encounter Summary ---
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 * Telephone Encounter - Lita Murguia MA [...] on filedocumented in this encounter Care Teams Pick Pack Worker Relationship Specialty [place] [address] [address] [facility] [address] [address] PCP - General Family Medicine 02/21/19 documented as of this encounter
--- OUTSIDE RECORDS SUMMARY | 2024-08-10 02:09 | XMS_ITS | Encounter Summary ---
Author Organization [facility] Medical Group Address [address] [address] Care Team Providers Care Golf Club Head Inspector And Adjuster Name Role Phone Cassius Ortega NP Primary Care Provider [phone] Encounter Details Date Type Department Care Team (Late st Contact Info) Description 07/17/2021 3:00 PM LENDING ADVISOR Office Visit [facility] Respiratory Clinic [address] [place] [address] Inocencio Greenwood MD [address] [place] [address] [address] Bronchitis (Primary Dx) Social History Tobacco Use [...] on file Legal Sex Female 1:09 AM LENDING ADVISOR Gender Identity Not on file Sexual [...] - Oxygen Saturation 99% 07/17/2021 2:55 PM LENDING ADVISOR Inhaled Oxygen Concentration - - Weight - [...] from the original note were not included. [facility] Res[facility] Clinic @ [facility] (Covid-19) Visit date: 07/17/2021 Patient presents to [...] (175 mcg total) by mouth daily 30 [id number] ??? losartan (COZAAR) 100 mg tablet Take [...] of symptoms. 2. Patient to look at [employer] for additional specific information regarding COVID-19 or [...] prescribed, if applicable, as well as any zzbm-khs-[id number] remedies. she was given instructions regarding follow up and timeframe if symptoms worsen or don???t improve. These instructions were included in the [employer] message reply tothe patient. Patient Instructions were included in the message reply to patient. Inocencio Greenwood MD ING ADVISOR documented in this encounter Plan of Treatment Not on file documented as of this encounter Visit Diagnoses Diagnosis Bronchitis- Primary Bronchitis, not specified as acute or chronic documented in this encounter Additional Health Concerns Infection Onset Date Last Indicated Resolved Time COVID: Suspected 07/15/2021 07/15/2021 07/29/2021 3:05 AM LENDING ADVISOR documented as of this encounter Care Teams Golf Club Head Inspector And Adjuster Relationship Specialty [place] [address] [address] [address] PCP - General Family Medicine 02/21/19 documented as of this encounter
--- OUTSIDE RECORDS SUMMARY | 2024-08-10 02:10 | XMS_ITS | Encounter Summary ---
Author Organization [facility] Medical Group Address [address] [facility] [address] [place] [address] Care Team Providers Care Kitchen Food Server Name Role Phone Cassius Ortega NP Primary Care Provider [phone] Reason for Visit * Reason Onset Date Comments Dizziness 10/28/2020 Encounter Details Date Type Department Care Team (Late st Contact Info) Description 10/28/2020 Nurse Triage Family Care at [facility] [id number] [place] [address] Cassius Ortega NP [address] [place] [address] [address] Social History Tobacco Use Types [...] on file Legal Sex Female 1:09 AM TOBACCO GRADER Gender Identity Not on file Sexual Orientation Not on file 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 Spinning or tilting sensation (vertigo) present now Protocols used: [id number] 45 y/o pt c/o severe dizziness when [...] Denies any Hx of vertigo. Works at [employer], but declines wanting to go to ED. [...] not scheduled?attempted no soon Caller's Callback #: [phone] Additional Comments: N/a Did you relay expectation for call back (hand spring repairer helper: Red Flag 10-15 min; non- emergent up to 3 hours)(Practice: Red Flag warm transfer; non-emergent up to 24 hours)? Yes documented in this encounter Plan of Treatment Not on file documented as of this encounter Visit Diagnoses Not on filedocumented in this encounter Care Teams Kitchen Food Server Relationship Specialty [place] [address] [address] [facility] 2 [place] [address] PCP - General Family Medicine 02/21/19 documented as of this encounter
--- OUTSIDE RECORDS SUMMARY | 2024-08-10 02:10 | XMS_ITS | Encounter Summary ---
Author Organization [facility] Healthcare Address [address] [place] [address] Care Team Providers Care High School Business Teacher Name Role Phone Cassius Ortega NP Primary Care Provider [phone] Reason for Visit * Reason Onset Date Comments COVID-19 EVALUATION 10/28/2020 Encounter Details Date Type Department Care Team (Late st Contact Info) Description 10/28/2020 Telephone [facility] Healthcare Occupatipending sale to [facility] [address] [place] [address] Room 3420 (Third Floor) [place] [address] Aye Ballard, RN COVID-19 EVALUATION Social History [...] on file Legal Sex Female 1:09 AM STONE GANG SAWYER Gender Identity Not on file Sexual Orientation [...] Employee COVID-19 Screening 05/03/2020 10/11/2020 10/28/2020 Email: [email or web address] Employee/Student ID# [id number] Phone: [phone] Are you an employee or student? Employee Employee Employee Employer: [employer] Employee Facility: [facility] Does your job primarily involve providing care for bone marrow transplant patients? 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 Man Advanced Modality Technologist Envelope Sealer/Printer Slotter Feeder name and email address: [email or web address] Are you working/studying from home or [...] and test for symptoms Testing Site Location: [facility] Notes: - - Patient will have someone drive her to the testing site as she is still dizzy or will wait until she is feeling better Script A1 (Stay home and test) for symptomatic HCW with known significant exposure Given your symptoms, you should not come to work and will be referred for testing. ??? Please go to the employee testing site at [place] [address] [place] [address]. ??? You will be tested for both [...] Occupational Health will notify you and your player development manager when you can return to work. ??? Should your test result positive, [facility] will work with you to identify any close contacts you may have had at work. [facility] will then alert your work contacts directly; you do not have to. Your aluminum boat assembly supervisor should consult with [facility] if they have any questions and before any communication with coworkers about a positive test. [facility] will help ensure that coworkers potentially at risk are notified and given appropriate advice without unnecessary disclosure of personal health information. ??? We will send you an email with self-quarantine instructions (see [facility] Guidance for At-Home Isolation: Employees). ??? You must follow any additional isolation or quarantine instructions provided to you from federal, state or local public health authorities. ??? You should let your aluminum boat assembly supervisor know that you will not be coming to work. Although the Call Center will email your aluminum boat assembly supervisor to confirm that you have been instructed not to come to work, it is still your responsibility to notify your aluminum boat assembly supervisor as you would for any other work absence. You should receive an email from the call center with these instructions. The email will come from [email or web address]; if you do not receive it, please check to see if your email room server has automatically routed it to [email or web address]. documented in this encounter Plan of Treatment Not on file documented as of this encounter Results * Influenza A/B and COVID-19 PCR ([facility] ONLY) Nasopharyngeal (10/28/2020 3:21 PM CDT) COVID-19 RNA Not Detected [facility] Comment: Interpretive Data Synonyms for this test include: PCR and NAAT . ??Testing performed by the [facility] Molecular Infectious Disease Laboratory. The 2019-Novel Coronavirus [...] 05, 2020. Influenza A RNA Not Detected [facility] Influenza B RNA Not Detected [facility] Comment: Interpretive Data Testing performed by the [facility] Molecular Infectious Disease Laboratory. This test is performed using the jessica Influenza A/B Assay. This is a real-time RT-PCR test for the qualitative detection of nucleic acid from Influenza A and Influenza B. This assay has been reviewed by the FDA for Emergency Use Authorization (EUA). The performance characteristics have been verified by the [facility]. Results should be interpreted in combination with clinical context and a negative result does not rule out infection. ?? Interpretive data last revised 2020. First COVID-19 test? No [facility] Employeed in healthcare? Yes [facility] status? No [facility] Group care resident? No [facility] Hospitalized? No [facility] Is patient in ICU? No [facility] Symptomatic as defined by CDC? Yes [facility] Nasopharyngeal 10/28/2020 3: 21 PM CDT 10/28/2020 7:23 PM CDT Narrative [facility] - 10/29/2020 6:14 AM CDT Patient is employed by/enrolled at:->[employer] Date of Symptom Onset->10/25/20 us Alley Ricketts MD LAB MICROBIOLOGY - GENERAL ORDERABLES Final Result [facility] Department [place] [address] documented in this encounter Visit Diagnoses Diagnosis Diarrhea, unspecified type- Primary Diarrhea, unspecified type documented in this encounter Additional Health Concerns Infection Onset Date Last Indicated Resolved Time COVID: Suspected 10/28/2020 10/28/2020 10/29/2020 6:16 AM CDT documented as of this encounter Care Teams High School Business Teacher Relationship Specialty [place] [address] [address] PCP - General Family Medicine 02/21/19 documented as of this encounter
--- OUTSIDE RECORDS SUMMARY | 2024-08-10 02:10 | XMS_ITS | Encounter Summary ---
Author Organization [facility] Medical Group Address [address] [facility] [address] [place] [address] Care Team Providers Care Surgical Aides Teacher Name Role Phone Cassius Ortega NP Primary Care Provider [phone] Reason for Visit * Reason Comments Pain Encounter Details Date Type Department Care Team (Latest Contact Info) Description 07/01/2020 11:30 AM FLEET OPERATIONS MANAGER Office Visit [facility] Medical Group Orthopedics and Sports Medicine [facility] [address] [place] [id number] Cuate Mcmullen MD [address] [place] [address] [facility] [address] [place] [address] Nontraumatic incomplete tear of right rotator cuff [...] on file Legal Sex Female 1:09 AM FLEET OPERATIONS MANAGER Gender Identity Not on file Sexual Orientation Not on file 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 documented as of this encounter Last Filed Vital Signs Vital Sign Reading Time Taken Comments Blood Pressure 111/78 07/01/2020 11:34 AM FLEET OPERATIONS MANAGER Pulse 67 07/01/2020 11:34 AM FLEET OPERATIONS MANAGER Temperature 35.9 ??C (96.7 ??F) 07/01/2020 1 1:34 AM FLEET OPERATIONS MANAGER Respiratory Rate - - Oxygen Saturation - - Inhaled Oxygen Concentration - - Weight 103.2 kg (227 lb 9.6 oz) 020 11:34 AM FLEET OPERATIONS MANAGER Height 165.1 cm (5' 5 ) 07/01/2020 11:3 4 AM FLEET OPERATIONS MANAGER Body Mass Index 37.87 07/01/2020 11:34 AM FLEET OPERATIONS MANAGER documented in this encounter Progress Notes * [...] she is not here for surgical consultation. Nightman completed by using M*Modal Fluency Direct speaking [...] failure requiring reintubation ([facility]), Breast cancer ([facility]), History of chemotherapy, History of [...] decreasing BMI below 30. TARIK Thomas MD T OPERATIONS MANAGER documented in this encounter Plan of Treatment Not on file documented as of this encounter Visit Diagnoses Diagnosis Nontraumatic incomplete tear of right rotator cuff- Primary Biceps tendinitis of right upper extremity Arthritis of right acromioclavicular joint documented in this encounter Care Teams Surgical Aides Teacher Relationship Specialty [place] [address] [address] [address] PCP - General Family Medicine 02/21/19 documented as of this encounter
--- OUTSIDE RECORDS SUMMARY | 2024-08-10 02:10 | XMS_ITS | Encounter Summary ---
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 Gender Identity Not on file Sexual Orientation [...] Results * eGFR (10/29/2020 2:46 PM CDT) [facility] eGFR 101 mL/min/1.7 3 m2 [facility] Comment: Interpretive [...] 10/29/2020 4:15 PM CDT us Cassius Ortega SALES FORCE ADMINISTRATOR LAB BLOOD ORDERABLES Final Re sult [facility] [address] [address] Department [place] [address] * Differential, auto (10/29/2020 2:46 PM CDT) Neutrophil abs 6.4 1.7 - 6.5 K/cumm [facility] Imm gran abs 0.0 0.0 - 0.1 K/cumm [facility] Lymphocyte abs 2.3 0.8 - 3.3 K/cumm [facility] Monocyte abs 0.7 0.2 - 0.8 K/cumm [facility] Eosinophil abs 0.1 0.0 - 0.5 K/cumm [facility] Basophil abs 0.0 0.0 - 0.1 K/cumm [facility] Neutrophil pct 66.7 % [facility] Comment: Interpretive Data Percent cell count reference ranges are not reported, since discordance with absolute values may lead to misinterpretation of CBC data. Current Interpretive Data was last revised on 2017. Imm gran pct 0.4 % [facility] Comment: Interpretive Data Percent cell count reference ranges are not reported, since discordance with absolute values may lead to misinterpretation of CBC data. Current Interpretive Data was last revised on 2017. Lymphocyte pct 24.5 % [facility] Comment: Interpretive Data Percent cell count reference ranges are not reported, since discordance with absolute values may lead to misinterpretation of CBC data. Current Interpretive Data was last revised on 2017. Monocyte pct 7.2 % [facility] Comment: Interpretive Data Percent cell [...] CDT 10/29/2020 3:13 PM CDT Cassius Ortega SALES FORCE ADMINISTRATOR LAB BLOOD ORDERABLES Final Re sult [facility] [address] [address] Department [place] [address] * CBC with auto differential (10/29/2020 2:46 PM CDT) WBC 9.6 3.8 - 9.9 K/cumm [facility] Hgb 12.5 11.9 - 15.5 g/dL [facility] Hct 38.4 35.6 - 45.5 % [facility] Plt 293 150 - 400 K/cumm [facility] MPV 9.2 9.1 - 12.3 fL [facility] RBC 4.15 3.90 - 5.20 M/cumm [facility] MCV 92.5 81.3 - 96.4 fL [facility] MCH 30.1 27.1 - 33.3 pg [facility] MCHC 32.6 32.3 - 35.7 g/dL [facility] RDW CV 13.1 11.1 - 14.9 % [facility] RDW SD 44.8 35.7 - 48.1 fL [facility] NRBC abs 0.00 0.00 - 0.01 K/cumm [facility] Blood specimen (specimen) 10/29/2020 2:46 PM CDT 10/29/2020 3:13 PM CDT Cassius Ortega SALES FORCE ADMINISTRATOR LAB BLOOD ORDERABLES Final Re sult Performing Organization Address City/[facility]/ZIP Co de Phone Number [facility] [address] [address] Department [place] [address] * Comprehensive metabolic panel (10/29/2020 2:46 PM [...] CDT 10/29/2020 3:13 PM CDT Cassius Ortega SALES FORCE ADMINISTRATOR LAB BLOOD ORDERABLES Final Re sult [facility] [address] [address] Department [place] [address] * (ABNORMAL) TSH (10/29/2020 2:46 PM CDT) Thyroid Stimulating Hormone 10.02(H) 0.30 - 4.20 mcIUnit/mL [facility] Blood specimen (specimen) 10/29/2020 2:46 PM CDT 10/29/2020 3:13 PM CDT Cassius Ortega NP LAB BLOOD ORDERABLES Final Re sult Performing Organization Address [facility] Co de Phone Number [facility] [address] [address] Department [employer] [place] [address] documented in this encounter Visit Diagnoses Diagnosis Fatigue, unspecified type Bradycardia Other specified cardiac dysrhythmias documented in this encounter Care Teams Financial Services Intern Relationship Specialty [place] [address] [address] [facility] [address] [place] [address] PCP - General Family Medicine 02/21/19 documented as of this encounter
--- OUTSIDE RECORDS SUMMARY | 2024-08-10 02:10 | XMS_ITS | Encounter Summary ---
Author Organization [facility] Medical Group Address [address] [address] Care Team Providers Care Staff Counselor Name Role Phone Cassius Ortega NP Primary Care Provider [phone] Reason for Referral * Diagnostic Imaging (Routine) - Closed Specialty Diagnoses / Procedures Referred By Contjennifer t Referred To Contact Diagnoses Screening-pulmonary TB Procedures XR Chest 1 [place] [address] [address] [address] Phone: tel: fax: [address] [address] Referral ID Status Reason Start Date Expiration Date Visits Re quested Visits Authorized [id number] Closed 12/04/2020 01/03/2022 1 1 Reason for Visit * Reason Comments Preventative Care physical exam Encounter Details Date Type Department Care Team (Late st Contact Info) Description 12/04/2020 12:30 PM CDT Office Visit Family Care at [address] [address] [place] [address] [address] [address] Annual physical exam (Primary Dx); Need for [...] on file 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 Gender Identity Not on file Sexual Orientation [...] this encounter Progress Notes * Cassius Ortega WELDING LEAD BURNER - 12/04/2020 12:30 PM CDT Images from [...] antibody, total (12/04/2020 1:00 PM CDT) Pathologist [facility] Hep B core IgG/IgM Nonreactive Nonreactive [facility] Comment:Testing performed by : [facility], [address] [facility], [place]., [address] Blood specimen (specimen) 12/04/2020 1:00 PM CDT 12/05/2020 8:50 AM CDT Cassius Ortega NP LAB MICROBIOLOGY - GENERAL OR DERABLES Edited Result - Final [facility] [address] [address] Department [place] [address] * Varicella Zoster (VZV) IgG Blood (12/04/2020 1:00 PM CDT) VZV IgG Reactive Nonreactive [facility] Comment: IgG antibodies to Varicella Zoster virus detected.?? This may indicate that the patient was exposed to Varicella Zoster through??infection or vaccination. Testing performed by: [facility], [address] [place] [address]., [address] Blood specimen (specimen) 12/04/2020 1:00 PM CDT 12/05/2020 8:49 AM CDT Cassius Ortega WELDING LEAD BURNER LAB MICROBIOLOGY - GENERAL OR DERABLES Final Result Performing Organization Address [facility] Co de Phone Number [facility] [address] [address] [facility] [employer] [address] * (ABNORMAL) Rubeola antibody IgG (12/04/2020 1:00 PM CDT) Pathologist [facility] Measles IgG Positive(A ) Negative [facility] Comment:Testing performed by : [facility], [address] [place] [address]., [address] Blood specimen (specimen) 12/04/2020 1:00 PM CDT 12/05/2020 8:49 AM CDT Cassius Ortega WELDING LEAD BURNER LAB MICROBIOLOGY - GENERAL OR DERABLES Final Result Performing Organization Address [facility] Co de Phone Number [facility] [address] [address] [facility] [employer] [address] * Rubella IgG (12/04/2020 1:00 PM CDT) Pathologist [facility] Rubella IgG Reactive [facility] Comment: Interpretive Data Nonreactive: ??No detectable [...] last revised on 2020. Testing performed by: [facility], [address] [place] [address] [place]., [address] Blood specimen (specimen) 12/04/2020 1:00 PM CDT 12/05/2020 8:49 AM CDT Cassius Ortega NP LAB MICROBIOLOGY - GENERAL OR DERABLES Final Result Performing Organization Address [facility] Co de Phone Number [place] [address] [address] Department [place] [address] * (ABNORMAL) Mumps antibody, IgG (12/04/2020 1:00 [...] last revised on 2016. Testing performed by: [facility], [address] [place]., [address] Blood specimen (specimen) 12/04/2020 1:00 PM CDT 12/05/2020 8:49 AM CDT Cassius Ortega NP LAB MICROBIOLOGY - GENERAL OR DERABLES Final Result Performing Organization Address [facility] Co de Phone Number [facility] [address] [address] Department [place] [address] documented in this encounter Visit Diagnoses Diagnosis [...] 12/04/2020 documented in this encounter Care Teams Staff Counselor Relationship Specialty Start [place] [address] [address] [facility] [address] [place] [address] PCP - General Family Medicine 02/21/19 documented as of this encounter
--- OUTSIDE RECORDS SUMMARY | 2024-08-10 02:10 | XMS_ITS | Encounter Summary ---
Author Organization [facility] Address [address] [facility] [address] [place] [address] Care Team Providers Care Alumina Plant Supervisor Name Role Phone Cassius Ortega NP Primary Care Provider Reason for Visit * Reason Comments Hypertension Follow-up Dizziness light headed Encounter Details Date Type Department Care Team (Late st Contact Info) Description 11/01/2020 10:30 AM CDT Office Visit [place] Braille Typist [id number] [address] Charly Olson MD [address] [place] [address] [address] Essential hypertension (Primary Dx); Lightheadedness Social History [...] on file 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 losartan (COZAAR) 50 mg tablet Take [...] BUN SERUM mg/dL 15 CREATININE mg/dL 0.71 EIT-NRP-FAGEXQO mL/min/1.73 m2 101 GLUCOSE mg/dL 89 CALCIUM [...] giddiness documented in this encounter Care Teams Alumina Plant Supervisor Relationship Specialty [place] [address] [facility] [address] [place] [address] PCP - General Family Medicine 02/21/19 documented as of this encounter
--- OUTSIDE RECORDS SUMMARY | 2024-08-10 02:10 | XMS_ITS | Encounter Summary ---
Author Organization [facility] Medical [facility] Address [address] [address] Care Team Providers Care Lab Systems Analyst Name Role Phone Cassius Ortega NP Primary Care Provider [phone] Reason for Visit * Reason Comments Pain Encounter Details Date Type Department Care Team (Late st Contact Info) Description 08/14/2020 3:45 PM REFERENCE INVESTIGATOR Office Visit [facility] Orthopedics and Sports Medicine [address] [place] [phone] Cuate Mcmullen MD [address] [place] [address] [address]ES [address] [address] Achilles tendinitis of left lower extremity (Primary [...] on file Legal Sex Female 1:09 AM REFERENCE INVESTIGATOR Gender Identity Not on file Sexual Orientation Not on file 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 documented as of this encounter Last Filed Vital Signs Vital Sign Reading Time Taken Comments Blood Pressure 127/74 08/14/2020 3:58 PM REFERENCE INVESTIGATOR Pulse 72 08/14/2020 3:58 PM REFERENCE INVESTIGATOR Temperature 36.4 ??C (97.6 ??F) 08/14/2020 3:58 PM CS T Respiratory Rate - - Oxygen Saturation - - Inhaled Oxygen Concentration - - Weight 101.2 kg (223 lb) 08/14/2020 3:58 PM REFERENCE INVESTIGATOR Height 165.1 cm (5' 5 ) 08/14/2020 3:58 PM REFERENCE INVESTIGATOR Body Mass Index 37.11 08/14/2020 3:58 PM REFERENCE INVESTIGATOR documented in this encounter Progress Notes * [...] boot and is here for 2nd opinion. Corporate Safety Director completed by using M*Modal Fluency Direct speaking [...] history of Acute respiratory failure requiring reintubation ([facility]), Breast cancer ([facility]), History of chemotherapy, History of radiation therapy, [...] Continue non op treatment. TARIK Juarez MD RENCE INVESTIGATOR documented in this encounter Plan of Treatment Not on file documented as of this encounter Procedures Procedure Name Priority Date/Time Associated Diagnosis Comments ESTROGENS, FRACTIONATED Routine 08/20/2020 8:38 AM REFERENCE INVESTIGATOR documented in this encounter Results * Estrogens, fractionated (08/20/2020 8:38 AM REFERENCE INVESTIGATOR) Estrone 81 pg/mL [facility] Comment: REFERENCE VALUE Premenopausal :17-200 Postmenopausal : 7-40 ADDITIONAL INFORMATION This test was developed and its performance characteristics determined by [facility] in a manner consistent with CLIA requirements. This test has not been cleared or approved by the U.S. Food and Drug Administration. Estradiol 33 pg/mL [facility] Comment: REFERENCE VALUE Premenopausal: 15-350 (E2 levels vary widely through the menstrual cycle.) Postmenopausal: <10 ADDITIONAL INFORMATION This test was developed and its performance characteristics determined by [facility] in a manner consistent with CLIA requirements. This test has not been cleared or approved by the U.S. Food and Drug Administration. Test Performed by: [facility] [place] [address] Rim Roller Operator: Timothy Renae M.D. Ph.D.; CLIA# [id number] Blood specimen (specimen) 08/20/2020 8:38 AM REFERENCE INVESTIGATOR 08/20/2020 11:51 AM REFERENCE INVESTIGATOR Anjali Varela DPM LAB BLOOD ORDERABLES Final R esult [facility] [address] [address] Department [place] [address] documented in this encounter Visit Diagnoses Diagnosis Achilles tendinitis of left lower extremity- Primary Body mass index (BMI) 37.0-37.9, adult documented in this encounter Care Teams Lab Systems Analyst Relationship Specialty [place] [address] [address] [facility] [address] [place] [address] PCP - General Family Medicine 02/21/19 documented as of this encounter
--- OUTSIDE RECORDS SUMMARY | 2024-08-10 02:10 | XMS_ITS | Encounter Summary ---
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
--- OUTSIDE RECORDS SUMMARY | 2024-08-10 02:10 | XMS_ITS | Encounter Summary ---
Author Organization [facility] Address [address] 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 Yes documented in this encounter Plan of Treatment Not on file documented as of this encounter Visit Diagnoses Not on filedocumented in this encounter Care Teams Machine Shop Instructor Relationship Specialty [place] [address] [facility] 406 [place] [address] PCP - General Family Medicine 02/21/19 documented as of this encounter
--- OUTSIDE RECORDS SUMMARY | 2024-08-10 02:10 | XMS_ITS | Encounter Summary ---
Author Organization [facility] Medical Group Address [address] [facility] [address] [place] [address] Care Team Providers Care Chief Informatics Officer Name Role Phone Cassius Ortega NP Primary Care Provider Reason for Visit * Reason Onset Date Comments Appointment 07/03/2020 Encounter Details Date Type Department Care Team (Late st Contact Info) Description 07/03/2020 Telephone Family Care at [address] [address] Lita Murguia CMA Appointment Social [...] on file Legal Sex Female 1:09 AM CHIEF INFORMATICS OFFICER Gender Identity Not on file Sexual Orientation Not on file 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 F INFORMATICS OFFICER * Telephone Encounter - Lita Murguia MA - 07/03/2020 3:10 PM CST Received a fax from Dr Mcmullen office asking for medical clearnce to be faxed for pt's surgery. Per cassius Ortega, patient needs an appointment for clearance before this can be done. Left message to call office regarding appt. F INFORMATICS OFFICER documented in this encounter Plan of Treatment Not on file documented as of this encounter Visit Diagnoses Not on filedocumented in this encounter Care Teams Chief Informatics Officer Relationship Specialty [place] [address] [address] [address] PCP - General Family Medicine 02/21/19 documented as of this encounter
--- OUTSIDE RECORDS SUMMARY | 2024-08-10 02:10 | XMS_ITS | Encounter Summary ---
Author Organization [facility] Medical [facility] Address 6[address] [facility] [address] [place] [address] Care Team Providers Care Activity Aide Name Role Phone Cassius Ortega NP Primary Care Provider [phone] Encounter Details Date Type Department Care Team (Late st Contact Info) Description 07/17/2020 Telephone [place] Fabric Machine Operator [address] [facility] [address] [place] [address] Charly Olson MD [address] [place] [address] [address] Social History Tobacco Use Types Packs/Day Years Used Date Smoking Tobacco: Never Smokeless Tobacco: Never Alcohol Use Standard Drinks/Week Comments Yes 0 (1 standard drink = 0.6 oz pur e alcohol) socially PHQ-2 Answer Date Recorded PHQ-2 Score 2 05/15/2019 Comments No Sex and Gender Information Value Date Recorded Sex Assigned at Not on file Legal Sex Female 1:09 AM HEMATOLOGY SUPERVISOR Gender Identity Not on file Sexual [...] on: 07/23/2020 11:48 AM Modules accepted: Orders TOLOGY SUPERVISOR * Telephone Encounter - Pavan Jackson MA - 07/23/2020 11:45 AM CST Pt aware otp and would like rx to go [facility] TOLOGY SUPERVISOR * Telephone Encounter - Pavan Jackson MA - 07/23/2020 9:30 AM CST lmom lt TOLOGY SUPERVISOR * Telephone Encounter - Charly Olson MD - 07/23/2020 8:57 AM CST Total Chol 266, LDL-C 148 Start atorvastatin 10 mg daily Recheck lipids in 4 weeks. TOLOGY SUPERVISOR * Telephone Encounter - Pavan Jackson MA - 07/17/2020 8:52 AM CST There is a new lab in the chart for you to view. Results? TOLOGY SUPERVISOR documented in this encounter Plan of Treatment Not on file documented as of this encounter Visit Diagnoses Not on filedocumented in this encounter Care Teams Activity Aide Relationship Specialty [place] [address] [address] [facility] [address] [address] PCP - General Family Medicine 02/21/19 documented as of this encounter
--- OUTSIDE RECORDS SUMMARY | 2024-08-10 02:10 | XMS_ITS | Encounter Summary ---
Author Organization [facility] Address [address] [place] [address] Care Team Providers Care Patient Biller Name Role Phone Cassius Ortega NP Primary Care Provider [phone] Reason for Referral * Diagnostic Imaging (Routine) - Closed Specialty Diagnoses / Procedures Referred By Cara t Referred To Contact Diagnoses Encounter for screening mammogram for malignant neoplasm of breast Procedures Screening Mammogram Bilateral [place] Screening Mammogram, Self [address] [address] Referral ID Status Reason Start Date Expiration Date Visits Re quested Visits Authorized [id number] Closed 06/19/2020 07/19/2021 1 1 ESSOR OF PSYCHOLOGY Reason for Visit * Diagnostic Imaging (Routine) - Closed Specialty Diagnoses / Procedures Referred By Cara alvarez Referred To Contact Diagnoses Encounter for screening mammogram for malignant neoplasm of breast Procedures Screening Mammogram Bilateral [place] Screening Mammogram, Self [address] [address] Referral ID Status Reason Start Date Expiration Date Visits Re quested Visits Authorized [id number] Closed 06/19/2020 07/19/2021 1 1 Encounter Details Date Type Department Care Team (Latest Contact Info) Description 06/20/2020 4:23 PM PROFESSOR OF PSYCHOLOGY - 06/20/2020 11:59 PM PROFESSOR OF PSYCHOLOGY Hospital Encounter [facility] Imaging and Radiology [address] [place] [address] Screening Mammogram, Self Encounter for screening mammogram [...] on file Legal Sex Female 1:09 AM PROFESSOR OF PSYCHOLOGY Gender Identity Not on file Sexual Orientation [...] 1 tablet (150 mcg total) by mouth whanau support worker before breakfast 90 tablet 3 05/17/2019 0 [...] Read Routine (OP Routine) 06/20/2020 4:41 PM PROFESSOR OF PSYCHOLOGY Encounter for screening mammogram for malignant neoplasm of breast documented in this encounter Results * Screening Mammogram Bilateral [place] (06/20/2020 4:41 PM PROFESSOR OF PSYCHOLOGY) Anatomical Region Laterality Modality Breast Bilateral Mammography 06/21/2020 7:33 AM PROFESSOR OF PSYCHOLOGY Impressions 06/21/2020 7:37 AM PROFESSOR OF PSYCHOLOGY BI-RADS Category 2, benign. ?? Annual screening mammography. ?? Electronically signed by: Izabella Patton M.D. Narrative 06/21/2020 7:37 AM PROFESSOR OF PSYCHOLOGY Examination: Bilateral screening digital mammography with CAD [...] breast documented in this encounter Care Teams Patient Biller Relationship Specialty [place] [address] [address] [facility] [address] [address] PCP - General Family Medicine 02/21/19 documented as of this encounter
--- OUTSIDE RECORDS SUMMARY | 2024-08-10 02:10 | XMS_ITS | Encounter Summary ---
Author Organization [facility] Medical Group Address [address] 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 Quinonez OR MICROSOFT NET DEVELOPER * Telephone Encounter - Eva Spann MA - 07/22/2020 3:09 PM CST Patient is requesting a second opinion from you. The patient has been under the care of Dr. Varela, Achilles tendinitis, left leg. She continues to have issues and would like your advice. Please advise. Thank you MRI Report scanned into [employer] [phone] OR MICROSOFT NET DEVELOPER documented in this encounter Plan of Treatment Not on file documented as of this encounter Visit Diagnoses Not on filedocumented in this encounter Care Teams Stock Handler Floorperson Relationship Specialty [place] [address] [address] [facility] [address] [address] PCP - General Family Medicine 02/21/19 documented as of this encounter
--- OUTSIDE RECORDS SUMMARY | 2024-08-10 02:10 | XMS_ITS | Encounter Summary ---
Author Organization [facility] Medical [facility] Address 6[address] [facility] 300 [place] [address] Care Team Providers Care Bead Stringer Name Role Phone Cassius Ortega NP Primary Care Provider [phone] Reason for Visit * Reason Comments Hyperlipidemia Hypertension Follow-up Encounter Details Date Type Department Care Team (Late st Contact Info) Description 07/16/2020 2:30 PM OPTOMECHANICAL ENGINEER Office Visit [place] [employer] [address] [place] [address] Charly Olson MD [address] [place] [address] [address] Essential hypertension (Primary Dx); Hyperlipidemia, unspecified hyperlipidemia [...] on file Legal Sex Female 1:09 AM OPTOMECHANICAL ENGINEER Gender Identity Not on file Sexual Orientation Not on file 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 documented as of this encounter Last Filed Vital Signs Vital Sign Reading Time Taken Comments Blood Pressure 126/78 07/16/2020 2:27 PM OPTOMECHANICAL ENGINEER Pulse 80 07/16/2020 2:27 PM OPTOMECHANICAL ENGINEER Temperature 36.9 ??C (98.4 ??F) 07/16/2020 2:27 PM CS T Respiratory Rate 18 07/16/2020 2:27 PM OPTOMECHANICAL ENGINEER Oxygen Saturation 96% 07/16/2020 2:27 PM OPTOMECHANICAL ENGINEER Inhaled Oxygen Concentration - - Weight - - Height 165.1 cm (5' 5 ) 07/16/2020 2:27 PM OPTOMECHANICAL ENGINEER Body Mass Index - - documented in [...] 1 tablet (150 mcg total) by mouth transportation specialist before breakfast 90 tablet 3 ??? losartan [...] care. MARTELL Campbell@4:00 PM Cc:Cassius Ortega NP MECHANICAL ENGINEER documented in this encounter Plan of Treatment Not on file documented as of this encounter Visit Diagnoses Diagnosis Essential hypertension- Primary Unspecified essential hypertension Hyperlipidemia, unspecified hyperlipidemia type documented in this encounter Care Teams Bead Stringer Relationship Specialty [place] [address] [address] [facility] [address] [address] PCP - General Family Medicine 02/21/19 documented as of this encounter
--- OUTSIDE RECORDS SUMMARY | 2024-08-10 02:10 | XMS_ITS | Encounter Summary ---
Author Organization [facility] Healthcare Address [address] [place] [address] Care Team Providers Care Enterprise Application Analyst Name Role Phone Cassius Ortega NP Primary Care Provider [phone] Reason for Referral * Diagnostic Imaging (Routine) - Closed Specialty Diagnoses / Procedures Referred By Cara alvarez Referred To Contact Diagnoses Screening-pulmonary TB Procedures XR Chest 1 [place] [address] [address] [facility] 2 [place] [id number] Phone: tel: fax: [address] [address] Referral ID Status Reason Start Date Expiration Date Visits Re quested Visits Authorized [id number] Closed 12/04/2020 01/03/2022 1 1 Reason for Visit * Diagnostic Imaging (Routine) - Closed Specialty Diagnoses / Procedures Referred By Contac t Referred To Contact Diagnoses Screening-pulmonary TB Procedures XR Chest 1 [place] [address] [address] [facility] 2 [place] [id number] Phone: tel: fax: [address] [address] Referral ID Status Reason Start Date Expiration Date Visits Re quested Visits Authorized [id number] Closed 12/04/2020 01/03/2022 1 1 Encounter Details Date Type Department Care Team (Latest Contact Info) Description 12/04/2020 1:20 PM CDT - 12/04/2020 11:59 PM CDT Hospital Encounter [facility] Diagnostic Imaging [address] [place] [address] [place] [address] [address] [place] [address] [facility] BLDG [address] [address] Screening-pulmonary TB Discharge Disposition: Discharge [...] on file Legal Sex Female 1:09 AM [place] [employer] [place] SALESPERSON Gender Identity Not on file Sexual Orientation [...] tuberculosis documented in this encounter Care Teams Enterprise Application Analyst Relationship Specialty [place] [address] [address] [facility] [address] [address] PCP - General Family Medicine 02/21/19 documented as of this encounter
--- OUTSIDE RECORDS SUMMARY | 2024-08-10 02:10 | XMS_ITS | Encounter Summary ---
Author Organization [facility] Medical Group Address [address] [facility] [address] [place] [address] Care Team Providers Care Assistant Professor Of Nursing Name Role Phone Cassius Ortega NP Primary Care Provider [phone] Encounter Details Date Type Department Care Team (Late st Contact Info) Description 10/30/2020 Orders Only Family Care at [place] [id number] [address] Cassius Ortega NP [address] [place] [address] [address] Social History Tobacco Use Types [...] on file Legal Sex Female 1:09 AM WOOD HEEL FLAP TRIMMER Gender Identity Not on file Sexual Orientation [...] 1 tablet (150 mcg total) by mouth dip lube operator before breakfast 07/01/2020 10/30/2020 documented as of this encounter Care Teams Assistant Professor Of Nursing Relationship Specialty Start [place] [address] [address] [facility] [address] [address] PCP - General Family Medicine 02/21/19 documented as of this encounter
--- OUTSIDE RECORDS SUMMARY | 2024-08-10 02:10 | XMS_ITS | Encounter Summary ---
Author Organization [facility] Medical Group Address [address] [facility] [address] [place] [address] Care Team Providers Care Capacitor Repairer Name Role Phone Cassius Ortega NP Primary Care Provider [phone] Reason for Visit * Reason Comments Dizziness Fatigue Encounter Details Date Type Department Care Team (Late st Contact Info) Description 10/29/2020 1:00 PM CDT Telemedicine Family Care at [address] [address] Cassius Ortega NP [address] [place] [address] [address] Fatigue, unspecified type (Primary Dx); [...] file 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BLAST FURNACE Gender Identity Not on file Sexual Orientation [...] this encounter Progress Notes * Cassius Ortega, HEAD BONE GRINDER - 10/29/2020 1:00 PM CDT Images from [...] Stimulating Hormone 10.02(H) 0.30 - 4.20 mcIUnit/mL [facility] Blood specimen (specimen) 10/29/2020 2:46 PM CDT 10/29/2020 3:13 PM CDT Cassius Ortega NP LAB BLOOD ORDERABLES Final Re sult [facility] [address] [address] Department [place] [address] * Comprehensive metabolic panel (10/29/2020 2:46 PM CDT) Sodium 136 135 - 145 mmol/L [facility] Potassium, pl 4.3 3.3 - 4.9 mmol/L [facility] Chloride 104 97 - 110 mmol/L [facility] CH CO2 24 22 - 32 mmol/L [facility] Anion gap 8 2 - 15 mmol/L [facility] BUN 15 8 - 25 mg/dL [facility] Creatinine 0.71 0.60 - 1.10 mg/dL [facility] Glucose 89 70 - 199 mg/dL [facility] Comment: Interpretive Data Fasting glucose [...] CDT 10/29/2020 3:13 PM CDT Cassius Ortega HEAD BONE GRINDER LAB BLOOD ORDERABLES Final Re sult [facility] [address] Department [place] [address] * CBC with auto differential [...] LAB BLOOD ORDERABLES Final Re sult [facility] [address] [address] Department [place] [address] documented in this encounter Visit Diagnoses Diagnosis Fatigue, unspecified type- Primary Bradycardia Other specified cardiac dysrhythmias BMI 37.0-37.9, adult documented in this encounter Care Teams Capacitor Repairer Relationship Specialty Start Date End Date Cassius Ortega, HEAD BONE GRINDER [address] [address] [facility] [address] [place] [address] PCP - General Family Medicine 02/21/19 documented as of this encounter
--- OUTSIDE RECORDS SUMMARY | 2024-08-10 02:10 | XMS_ITS | Encounter Summary ---
Author Organization [facility] Medical Group Address [address] [place] [address] Care Team Providers Care Control Center Operator Name Role Phone Cassius Ortega NP Primary Care Provider Encounter Details Date Type Department Care Team (Late st Contact Info) Description 07/16/2020 Orders Only Disney Reservations Specialist [address] 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 documented as of this encounter Plan of Treatment Not on file documented as of this encounter Results * (ABNORMAL) Lipid panel (07/16/2020 3:39 PM COMMERCIAL LINES MANAGER) [facility] Cholesterol 266(H) 30 - 199 mg/dL [facility] [...] FLOR Blood specimen (specimen) 07/16/2020 3:39 PM COMMERCIAL LINES MANAGER 07/16/2020 7:50 PM COMMERCIAL LINES MANAGER us Charly Olson MD LAB BLOOD ORDERABLES Final Res ult [place] [address] [address] Department [place] [address] documented in this encounter Visit Diagnoses Diagnosis Hyperlipidemia, unspecified hyperlipidemia type- Primary documented in this encounter Care Teams Control Center Operator Relationship Specialty [place] [address] [address] [facility] [address] [place] [address] PCP - General Family Medicine 02/21/19 documented as of this encounter
--- OUTSIDE RECORDS SUMMARY | 2024-08-10 02:10 | XMS_ITS | Encounter Summary ---
Author Organization [facility] Healthcare Address [address] [place] [address] Care Team Providers Care Industrial Gas Fitter Name Role Phone Cassius Ortega NP Primary Care Provider [phone] Reason for Visit * Reason Onset Date Comments COVID-19 EVALUATION 10/11/2020 Encounter Details Date Type Department Care Team (Late st Contact Info) Description 10/11/2020 Telephone [facility] Healthcare [facility]iformerly [facility] [address] [place] [address] Room 3420 (Third Floor) [place] [address] Irene Wang RN COVID-19 EVALUATION Social History [...] on file Legal Sex Female 1:09 AM ENDOSCOPY TECH Gender Identity Not on file Sexual Orientation Not on file 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 Employee Employee Employer: [employer] Employee Facility: [facility] Does your job primarily involve providing care for bone marrow transplant patients? 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 iii. You should let your banquet kitchen supervisor know that you will not be coming to work. Although the Call Center will email your banquet kitchen supervisor to confirm that you have been instructed not to come to work, it is still your responsibility to notify your banquet kitchen supervisor as you would for any other work absence. SCOPY TECH documented in this encounter Plan of Treatment Not on file documented as of this encounter Visit Diagnoses Not on filedocumented in this encounter Care Teams Industrial Gas Fitter Relationship Specialty [place] [address] [address] PCP - General Family Medicine 02/21/19 documented as of this encounter
--- OUTSIDE RECORDS SUMMARY | 2024-08-10 02:10 | XMS_ITS | Encounter Summary ---
Author Organization [facility] Medical Group Address [address] [place] [address] Care Team Providers Care Superintendent Custodian Janitor Name Role Phone Cassius Ortega NP Primary Care Provider Encounter Details Date Type Department Care Team (Late st Contact Info) Description 07/30/2020 Telephone [facility] Medical Group Orthopedics and Sports Medicine [address] [facility] [address] [place] [address] Cuate Mcmullen MD [address] [place] [address] [address] [place] [address] Social History Tobacco Use Types Packs/Day Years Used Date Smoking Tobacco: Never Smokeless Tobacco: Never Alcohol Use Standard Drinks/Week Comments Yes 0 (1 standard drink = 0.6 oz pur e alcohol) socially PHQ-2 Answer Date Recorded PHQ-2 Score 2 05/15/2019 Comments No Sex and Gender Information Value Date Recorded Sex Assigned at Not on file Legal Sex Female 1:09 AM RIG MANAGER Gender Identity Not on file Sexual [...] was going check herschedule and call back MANAGER documented in this encounter Plan of Treatment Not on file documented as of this encounter Visit Diagnoses Not on filedocumented in this encounter Care Teams Superintendent Custodian Janitor Relationship Specialty [place] [address] [address] [facility] [address] [address] PCP - General Family Medicine 02/21/19 documented as of this encounter
--- OUTSIDE RECORDS SUMMARY | 2024-08-10 02:10 | XMS_ITS | Encounter Summary ---
Author Organization [facility] Healthcare Address [address] [place] [address] Care Team Providers Care Adoption Agent Name Role Phone Cassius Ortega NP Primary Care Provider [phone] Encounter Details Date Type Department Care Team (Late st Contact Info) Description 07/16/2020 3:40 PM DISPATCHER SERVICE OR WORK Lab [address] [address] Charly Olson MD [address] [place] [address] [address] Hyperlipidemia, unspecified hyperlipidemia type Discharge Disposition: Discharge [...] on file Legal Sex Female 1:09 AM DISPATCHER SERVICE OR WORK Gender Identity Not on file Sexual Orientation [...] Comments LIPID PANEL Routine 07/16/2020 3:39 PM DISPATCHER SERVICE OR WORK Hyperlipidemia, unspecified hyperlipidemia type documented in this encounter Results * (ABNORMAL) Lipid panel (07/16/2020 3:39 PM DISPATCHER SERVICE OR WORK) Cholesterol 266(H) 30 - 199 mg/dL [facility] [...] FLOR Blood specimen (specimen) 07/16/2020 3:39 PM DISPATCHER SERVICE OR WORK 07/16/2020 7:50 PM DISPATCHER SERVICE OR WORK us Charly Olson MD LAB BLOOD ORDERABLES Final Res ult [place] [address] [address] Department [place] [address] documented in this encounter Visit Diagnoses Diagnosis Hyperlipidemia, unspecified hyperlipidemia type documented in this encounter Care Teams Adoption Agent Relationship Specialty [place] [address] [address] [place] [address] PCP - General Family Medicine 02/21/19 documented as of this encounter
--- OUTSIDE RECORDS SUMMARY | 2024-08-10 02:10 | XMS_ITS | Encounter Summary ---
Author Organization [facility] Healthcare Address [address] [place] [address] Care Team Providers Care Forest Resource Specialist Name Role Phone Cassius Ortega NP Primary Care Provider [phone] Roya Andre Unavailable [phone] Encounter Details Date Type Department Care Team (Late st Contact Info) Description 05/22/2020 Telephone [facility] - Imaging [address] [place] [address] Transcribed Order, Provider Social History [...] on file Legal Sex Female 1:09 AM 3D MODELER Gender Identity Not on file Sexual [...] COVID: Suspected 07/15/2021 07/15/2021 07/29/2021 3:05 AM 3D MODELER documented as of this encounter Care Teams Forest Resource Specialist Relationship Specialty [place] [address] [address] [facility] [address] [facility] [address] [place] [address] PCP - General Family Medicine 02/21/19 Roya Andre PA [address] [place] [address] [facility] [address], [place] [address] Physician Supervisor Vendor Quality Orthopedic Surgery 04/09/22 Alina Higginbotham, [facility] [address] [facility] [address] Plant Controller Infectious Diseases 10/08/22 documented as of this encounter
--- OUTSIDE RECORDS SUMMARY | 2024-08-10 02:10 | XMS_ITS | Encounter Summary ---
Author Organization [facility] Healthcare Address [address] [place] [address] Care Team Providers Care Sales Agent Business Services Name Role Phone Cassius Ortega NP Primary Care Provider [phone] Encounter Details Date Type Department Care Team (Late st Contact Info) Description 08/20/2020 8:40 AM MACHINE BOSS Lab [address] [address] Anjali Varela, DPOlivia [address] [id number] Discharge Disposition: Discharge to home or self [...] on file Legal Sex Female 1:09 AM MACHINE BOSS Gender Identity Not on file Sexual Orientation [...] filedocumented in this encounter Care Teams Sales Agent Business Services Relationship Specialty [place] [address] [address] [facility] [address] [place] [id number] PCP - General Family Medicine 02/21/19 documented as of this encounter
--- OUTSIDE RECORDS SUMMARY | 2024-08-10 02:10 | XMS_ITS | Encounter Summary ---
Author Organization [facility] Healthcare Address [address] [place] [address] Care Team Providers Care Animal Nursery Worker Name Role Phone Cassius Ortega NP Primary Care Provider [phone] Reason for Referral * Diagnostic Imaging (Routine) - Closed Specialty Diagnoses / Procedures Referred By Cara alvarez Referred To Contact Radiology Diagnoses Achilles tendinitis, left leg Procedures MRI Ankle Left WO Contrast Anjali Varela DPM Phone: tel: fax: [place] [address] [place] [address] Referral ID Status Reason Start Date Expiration Date Visits Re quested Visits Authorized [id number] Closed 05/01/2020 10/28/2020 1 1 Reason for Visit * Diagnostic Imaging (Routine) - Closed Specialty Diagnoses / Procedures Referred By Cara alvarez Referred To Contact Radiology Diagnoses Achilles tendinitis, left leg Procedures MRI Ankle Left WO Contrast Anjali Varela DPM Phone: tel: fax: [place] [address] [place] [address] Referral ID Status Reason Start Date Expiration Date Visits Re quested Visits Authorized [id number] Closed 05/01/2020 10/28/2020 1 1 Encounter Details Date Type Department Care Team (Latest Contact Info) Description 05/23/2020 5:05 PM CDT - 05/23/2020 11:59 PM CDT Hospital Encounter [facility] - Imaging [address] [place] [phone] Anjali Varela, DPOlivia [address] [address] Achilles tendinitis, left leg Discharge Disposition: Discharge [...] on file Legal Sex Female 1:09 AM 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
--- OUTSIDE RECORDS SUMMARY | 2024-08-10 02:10 | XMS_ITS | Encounter Summary ---
Author Organization [facility] Healthcare Address [address] [place] [address] Care Team Providers Care Igniter Assembler Name Role Phone Cassius Ortega NP Primary Care Provider [phone] Encounter Details Date Type Department Care Team (Late st Contact Info) Description 10/28/2020 6:55 PM CDT Lab [address] [address] Diarrhea, unspecified type Social History Tobacco Use [...] file Legal Sex Female 1:09 AM FILM MOUNTER Gender Identity Not on file Sexual Orientation [...] Results * Influenza A/B and COVID-19 PCR ([facility] ONLY) Nasopharyngeal (10/28/2020 3:21 PM CDT) COVID-19 RNA Not Detected [facility] Comment: Interpretive Data Synonyms for this [...] 05, 2020. Influenza A RNA Not Detected [facility] Influenza B RNA Not Detected [facility] Comment: Interpretive Data Testing performed by the [facility] Molecular Infectious Disease Laboratory. This test is performed using the jessica Influenza A/B Assay. This is a real-time RT-PCR test for the qualitative detection of nucleic acid from Influenza A and Influenza B. This assay has been reviewed by the FDA for Emergency Use Authorization (EUA). The performance characteristics have been verified by the [facility] Laboratory. Results should be interpreted in combination with clinical context and a negative result does not rule out infection. ?? Interpretive data last revised 2020. First COVID-19 test? No [facility] Employeed in healthcare? Yes [facility] status[facility] No [facility] Group care resident? No [facility] Hospitalized? No [facility] Is patient in ICU? No [facility] Symptomatic as defined by CDC? Yes [facility] Nasopharyngeal 10/28/2020 3: 21 PM CDT 10/28/2020 7:23 PM CDT Narrative [facility] - 10/29/2020 6:14 AM CDT Patient is employed by/enrolled at:->[employer] Date of Symptom Onset->3/26/21 us Alley Ricketts MD LAB MICROBIOLOGY - GENERAL ORDERABLES Final Result [facility] [address] [facility] Department [place] [address] documented in this encounter Visit Diagnoses Diagnosis Diarrhea, unspecified type documented in this encounter Additional Health Concerns Infection Onset Date Last Indicated Resolved Time COVID: Suspected 10/28/2020 10/28/2020 10/29/2020 6:16 AM CDT documented as of this encounter Care Teams Igniter Assembler Relationship Specialty [place] [address] [address] [facility] [address] [address] PCP - General Family Medicine 02/21/19 documented as of this encounter
--- OUTSIDE RECORDS SUMMARY | 2024-08-10 02:10 | XMS_ITS | Encounter Summary ---
Author Organization [facility] Medical Group Address [address] [facility] [address] [place] [address] Care Team Providers Care Web Development Intern Name Role Phone Cassius Ortega NP Primary Care Provider Encounter Details Date Type Department Care Team (Late st Contact Info) Description 11/26/2020 Orders Only Emet Forensic Engineer [address] [facility] [address] [place] [address] Charly Olson MD [address] [place] [address] [address] Social History Tobacco Use Types Packs/Day Years [...] on file Legal Sex Female 1:09 AM CHANGE DIRECTOR Gender Identity Not on file Sexual [...] documented as of this encounter Care Teams Web Development Intern Relationship Specialty [place] [address] [address] [facility] [address] [address] PCP - General Family Medicine 02/21/19 documented as of this encounter
--- OUTSIDE RECORDS SUMMARY | 2024-08-10 02:10 | XMS_ITS | Encounter Summary ---
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 Testing performed by: [facility], [address] [facility], [place]., [address] Blood specimen (specimen) 12/04/2020 1:00 PM CDT 12/05/2020 8:49 AM CDT us Cassius Ortega NP LAB MICROBIOLOGY - GENERAL OR DERABLES Final Result [place] [address] [place] [address] * Rubella IgG (12/04/2020 1:00 PM CDT) Pathologist [facility] Rubella IgG Reactive [facility] Comment: Interpretive Data [...] last revised on 2020. Testing performed by: [facility], [address] [place] [address]., [address] Blood specimen (specimen) 12/04/2020 1:00 PM CDT 12/05/2020 8:49 AM CDT Cassius Ortega NP LAB MICROBIOLOGY - GENERAL OR DERABLES Final Result Performing Organization Address [facility] de Phone Number [facility] [address] [address] [facility] [place] [address] * (ABNORMAL) Rubeola antibody IgG (12/04/2020 1:00 PM CDT) Pathologist [facility] Measles IgG Positive(A ) Negative [facility] Comment:Testing performed by : [facility], [address] [place] [address]., [address] Blood specimen (specimen) 12/04/2020 1:00 PM CDT 12/05/2020 8:49 AM CDT Cassius Ortega NP LAB MICROBIOLOGY - GENERAL OR DERABLES Final Result Performing Organization Address City[facility] Co de Phone Number [facility] [address] [place] [address] * Varicella Zoster (VZV) IgG Blood (12/04/2020 1:00 PM CDT) VZV IgG Reactive Nonreactive [facility] Comment: IgG antibodies to Varicella Zoster virus detected.?? This may indicate that the patient was exposed to Varicella Zoster through??infection or vaccination. Testing performed by: [facility], [address] [place] [address]., [address] Blood specimen (specimen) 12/04/2020 1:00 PM CDT 12/05/2020 8:49 AM CDT Cassius Ortega NP LAB MICROBIOLOGY - GENERAL OR DERABLES Final Result [place] [address] [address] Department [place] [address] * Hepatitis B core antibody, total (12/04/2020 1:00 PM CDT) Pathologist [facility] Hep B core IgG/IgM Nonreactive Nonreactive [facility] [place] Comment:Testing performed by : [facility], [address] [facility], [place]., [address] Blood specimen (specimen) 12/04/2020 1:00 PM CDT 12/05/2020 8:50 AM CDT Cassius Ortega NP LAB MICROBIOLOGY - GENERAL OR DERABLES Edited Result - Final [place] [address] [address] Department [place] [address] documented in this encounter Visit Diagnoses Diagnosis Annual physical exam Routine general medical examination at a health care facility documented in this encounter Care Teams Emergency Management Coordinator Relationship Specialty Start [place] [address] [address] [facility] [address] [place] [address] PCP - General Family Medicine 02/21/19 documented as of this encounter
--- OUTSIDE RECORDS SUMMARY | 2024-08-10 02:11 | XMS_ITS | Encounter Summary ---
Author Organization [facility] Healthcare Address [address] [place] [address] Care Team Providers Care Placement Assistant Name Role Phone Cassius Ortega NP Primary Care Provider [phone] Encounter Details Date Type Department Care Team (Late st Contact Info) Description 12/28/2019 7:30 AM CDT - 12/28/2019 10:50 AM CDT Surgery [facility] Operating Room [address] [place] [address] Kelly Irizarry MD [address] [facility] [phone] [place] [address] LAPAROSCOPIC HYSTERECTOMY Surgery Details Date/Time Status Location OR Service Patient Class Case Cl ass Case Type Trauma Case? 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 Hasn't seen a Combination Welder in at least 5 years. Last saw [...] 1 tablet (150 mcg total) by mouth staking press operator before breakfast Commonly known as: SYNTHROID [...] 1 tablet (150 mcg total) by mouth staking press operator before breakfast 90 tablet 3 05/17/2019 [...] Andrade MD - 12/28/2019 6:39 AM CDT CORONER/MEDICAL EXAMINER Pre-Op Chief Complaint: scheduled surgery HPI: Jaz [...] ago and this was normal. Hasn't jesus Combination Welder in at least 5 years. Last saw [...] ??? TUBAL LIGATION 2008 Bilateral tubal ligation CORONER/MEDICAL EXAMINER History: No LMP recorded. Pap History: No [...] WBC 12.7(H) 3.8 - 9.9 K/cumm [facility] Hgb 10.7(L) 11.9 - 15.5 g/dL [facility] Hct 32.1(L) 35.6 - 45.5 % [facility] Plt 299 150 - 400 K/cumm [facility] MPV 9.4 9.1 - 12.3 fL [facility] RBC 3.63(L) 3.90 - 5.20 M/cumm [facility] MCV 88.4 81.3 - 96.4 fL [facility] MCH 29.5 27.1 - 33.3 pg [facility] MCHC 33.3 32.3 - 35.7 g/dL [facility] RDW CV 13.9 11.1 - 14.9 % [facility] RDW SD 44.8 35.7 - 48.1 fL [facility] NRBC abs 0.00 0.00 - 0.01 K/cumm [facility] Blood specimen (specimen) 12/28/2019 9:38 PM CDT 12/28/2019 10:29 PM CDT us Kelly Irizarry MD LAB BLOOD ORDLukas WOLFE Final Result [facility] [place] [address] * Surgical pathology (12/28/2019 9:44 AM CDT) Tissue (Uterus with/without tubes & ovaries, Non-neoplastic) 12/28/2019 9:44 AM CDT Narrative PATHOLOGY [facility] - 01/02/2020 3:34 PM CDT EPIC results best viewed via link to PDF [facility] Alise Gallo Laboratory [place] [address] SURGICAL PATHOLOGY REPORT FINAL Patient Name: ?? JAZ ALFORD Gender: ??F : ??1975 (Age: 44) Address: ??[address], [place], [place] ??[address] Hospital #: ??[id number] Taken:12/28/2019 Received:12/28/2019 Reported: 01/02/2020 Patient Type: [facility] Observation ?? Service: Surgery Location: [facility] 1026 Physician(s): ??Kelly Irizarry M.D. Cassius Ortega NP [...] and left ? - No histopathologic abnormality [facility]/01/01/2020 14:06 By this signature, I attest that [...] respectively; A3 to A4 - anterior endomyometrium, sales representative adding machines full-thickness sections with roughened serosa included in A3; A5 to A6 - posterior endomyometrium, bisected sales representative adding machines full-thickness section; A7 - sales representative adding machines shorter fallopian tube; A8 - sales representative adding machines longer fallopian tube. ??Jar 2. mr2/12/29/2019 09:25 PA(s): Maria Arias MS, PA ([facility]) By this signature, I attest that the above diagnosis is based upon my personal examination of the slides(and/or other material). The performance characteristics of some immunohistochemical stains, fluorescence in-situ hybridization tests and immunophenotyping by flow cytometry cited in this report (if any) were determined by the Surgical Pathology Department at [facility] as part of an ongoing quality cloth tester program and in compliance with federally mandated [...] determined by the Surgical Pathology Department of [facility]. ??It has not been cleared or approved by the U. S. Food and Drug Administration. IMAGES AND SCANNED DOCUMENTS, IF INCLUDED, ONLY VIEWABLE IN PDF VERSION OF REPORT us Kelly Maria Irizarry MD LAB PATHOLOGY ORDERABLES Final Result PATHOLOGY [facility] 3rd Floor [place], [place] [phone] * POCT hCG, urine (12/28/2019 6:27 AM CDT) HCG, ur, POC Negative Lot Number [id number] QC Backgroud Clear Acceptable QC Control Line Acceptable Urine 12/28/2019 6:27 AM CDT Shonna Knight NP POINT OF CARE TEST ORDERABLES Final Result * (ABNORMAL) CBC without differential (12/28/2019 6:10 AM CDT) Pathologist [facility] WBC 7.5 3.8 - 9.9 K/cumm [facility] Hgb 11.4(L) 11.9 - 15.5 g/dL [facility] Hct 34.5(L) 35.6 - 45.5 % [facility] Plt 283 150 - 400 K/cumm [facility] MPV 9.0(L) 9.1 - 12.3 fL [facility] RBC 3.98 3.90 - 5.20 M/cumm [facility] MCV 86.7 81.3 - 96.4 fL [facility] MCH 28.6 27.1 - 33.3 pg [facility] MCHC 33.0 32.3 - 35.7 g/dL [facility] RDW CV 13.8 11.1 - 14.9 % [facility] RDW SD 43.6 35.7 - 48.1 fL [facility] NRBC abs 0.00 0.00 - 0.01 K/cumm [facility] Blood specimen (specimen) 12/28/2019 6:10 AM CDT 12/28/2019 6:27 AM CDT us Kellyfam Irizarry MD LAB BLOOD ORDE RABLES Final Result [facility] Department [place] [address] * (ABNORMAL) Basic metabolic panel (12/28/2019 6:10 AM CDT) Sodium 136 135 - 145 mmol/L [facility] Potassium, pl 4.2 3.3 - 4.9 mmol/L [facility] Chloride 105 97 - 110 mmol/L [facility] CO2 21(L) 22 - 32 mmol/L [facility] Anion gap 10 2 - 15 mmol/L [facility] BUN 8 8 - 25 mg/dL [facility] Creatinine 0.67 0.60 - 1.10 mg/dL [facility] Glucose 100 70 - 199 mg/dL [facility] Comment: Interpretive Data Fasting glucose >/= [...] Calcium 9.0 8.5 - 10.3 mg/dL [facility] Blood specimen (specimen) 12/28/2019 6:10 AM CDT 12/28/2019 6:27 AM CDT us Kelly Irizarry MD LAB BLOOD SETH WOLFE Final Result [facility] [place] [address] documented in this encounter Visit Diagnoses Diagnosis [...] hours, Indications: Pain 1630 (Given - Provider: uJdy Omer RN) 0028 (Given - Provider: Dexter [...] 12/28/2019 documented in this encounter Care Teams Placement Assistant Relationship Specialty [place] [address] [facility] [address] [address] PCP - General Family Medicine 02/21/19 documented as of this encounter
--- OUTSIDE RECORDS SUMMARY | 2024-08-10 02:11 | XMS_ITS | Encounter Summary ---
Author Organization [facility] Address [address] [facility] [address] [place] [address] Phone Care Team Providers Care Heel Lift Gouger Name Role Phone Cassius Ortega NP Primary Care Provider [phone] Encounter Details Date Type Department Care Team (Late st Contact Info) Description 10/18/2019 Orders Only [facility] Obstetrics and Gynecology [address] [facility] Outpatient Health 7th Floor [address] [place] [address] Kelly Irizarry MD [address] [facility] [phone] [place] [address] Social History Tobacco Use Types Packs/Day Years Used Date Smoking Tobacco: Never Smokeless Tobacco: Never Alcohol Use Standard Drinks/Week Comments Yes 0 (1 standard drink = 0.6 oz pur e alcohol) PHQ-2 Answer Date Recorded PHQ-2 Score 2 05/15/2019 Comments No Sex and Gender Information Value Date Recorded Sex Assigned at Not on file 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
--- OUTSIDE RECORDS SUMMARY | 2024-08-10 02:11 | XMS_ITS | Encounter Summary ---
Author Organization [facility] Address [address] [facility] [address] [place] [address] Phone Care Team Providers Care Manager Instrumentation Name Role Phone Cassius Ortega NP Primary Care Provider [phone] Reason for Visit * Reason Comments Post-op Visit Encounter Details Date Type Department Care Team (Late st Contact Info) Description 01/08/2020 2:30 PM CDT Office Visit 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 Financial resource [...] on phone: None Gets together: None Attends sabianist service: None Active member of club or [...] tablet (150 mcg total) by mouth early childhood education coordinator before breakfast (Patient taking differently: Take 150 mcg by mouth early childhood education coordinator before breakfast ), Disp: 90 tablet, Rfl: [...] PM CDT) Report Final Report: No growth [facility] Urine, in and out catheter 01/08/2020 3:01 PM CDT 01/08/2020 6:06 PM CDT Narrative [facility] - 01/09/2020 7:25 PM CDT Testing performed by [facility] ([phone]) us Kelly Irizarry MD LAB MICROBIOLO GY - GENERAL ORDERABLES Final Result [facility] Department [place] [address] * (ABNORMAL) POCT urinalysis dipstick (01/08/2020 2:45 PM CDT) Color, Urine, POC Yellow Clarity, ur, POC Cloudy(A) Clear Glucose, ur, POC Negative Negative mg/dL Bilirubin, ur, POC Negative Negative, Small, Moderate, Large Ketones, ur, POC Negative Negative Specific Uneeda, POC 1.010 1.005 - 1.030 Blood, ur, [...] as of this encounter Care Teams Manager Instrumentation Relationship Specialty [place] [address] [address] [address] PCP - General Family Medicine 02/21/19 documented as of this encounter
--- OUTSIDE RECORDS SUMMARY | 2024-08-10 02:11 | XMS_ITS | Encounter Summary ---
Author Organization [facility] Address [address] [facility] [address] [place] [address] Phone Care Team Providers Care Manager Gallery Name Role Phone Cassius Ortega NP Primary Care Provider [phone] Reason for Visit * Reason Onset Date Comments Med Refill 09/22/2019 Encounter Details Date Type Department Care Team (Late st Contact Info) Description 09/22/2019 Telephone [facility] Obstetrics and Gynecology [facility] Outpatient Health 7th Floor [address] [place] [address] Kelly Irizarry MD [facility] MSC [phone] [place] [address] Med Refill Social History Tobacco [...] file 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 Thanks! HER OPERATOR * Telephone Encounter - Bethany Holder - 09/22/2019 9:00 AM CST Please clarify norethindrone dose and instructions. Rx has two different direction on it. Thank you HER OPERATOR documented in this encounter Plan of Treatment Not on file documented as of this encounter Visit Diagnoses Not on filedocumented in this encounter Care Teams Manager Gallery Relationship Specialty [place] [address] [address] [facility] [address] [address] PCP - General Family Medicine 02/21/19 documented as of this encounter
--- OUTSIDE RECORDS SUMMARY | 2024-08-10 02:11 | XMS_ITS | Encounter Summary ---
Author Organization [facility] Address [address] [facility] [address] [place] [address] Phone Care Team Providers Care Frame Changer Name Role Phone Cassius Ortega NP Primary Care Provider Encounter Details Date Type Department Care Team (Late st Contact Info) Description 01/08/2020 Telephone [facility] Obstetrics and Gynecology [address] [facility] Outpatient Health 7th Floor [address] [place] [address] Shila Hatch NP [address] [address] Social History Tobacco Use Types Packs/Day Years Used Date Smoking Tobacco: Never Smokeless Tobacco: Never Alcohol Use Standard Drinks/Week Comments Yes 0 (1 standard drink = 0.6 oz pur e alcohol) socially PHQ-2 Answer Date Recorded PHQ-2 Score 2 05/15/2019 Comments No Sex and Gender Information Value Date Recorded Sex Assigned at Not on file 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
--- OUTSIDE RECORDS SUMMARY | 2024-08-10 02:11 | XMS_ITS | Encounter Summary ---
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 (e.g., recent heavy equipment rental manager surgery, recent heavy equipment rental manager procedure; known bleeding disorder, cervical cancer, polycystic [...] period? no Protocols used: VAGINAL BLEEDING - [id number], VAGINAL [id number] After speaking with the pt. She states [...] on filedocumented in this encounter Care Teams Solar Panel Technician Relationship Specialty [place] [address] [address] [facility] [address] [address] PCP - General Family Medicine 02/21/19 documented as of this encounter
--- OUTSIDE RECORDS SUMMARY | 2024-08-10 02:11 | XMS_ITS | Encounter Summary ---
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 Problems/Diagnoses: Active Problems: Abnormal uterine bleeding [...] and this was normal. Hasn't seen a Zoo Caretaker in at least 5 years. Last saw [...] 1 tablet (150 mcg total) by mouth raise drill operator before breakfast Commonly known as: SYNTHROID [...] 1 tablet (150 mcg total) by mouth raise drill operator before breakfast 90 tablet 3 05/17/2019 [...] today Lorraine Sheth MD Cosigned by Kelly rIizarry MD at 12/29/2019 1:48 PM CDT Associated [...] Andrade MD - 12/28/2019 6:39 AM CDT INTERNAL MEDICINE VETERINARY TECHNICIAN Pre-Op Chief Complaint: scheduled surgery HPI: Jaz [...] ago and this was normal. Hasn't jesus Zoo Caretaker in at least 5 years. Last saw [...] ??? TUBAL LIGATION 2008 Bilateral tubal ligation INTERNAL MEDICINE VETERINARY TECHNICIAN History: No LMP recorded. Pap History: No [...] positioned [facility] the dorsal lithotomy [facility] and examined under anesthesia with the above [...] CDT) WBC 12.7(H) 3.8 - 9.9 K/cumm [facility] Hgb 10.7(L) 11.9 - 15.5 g/dL [facility] Hct 32.1(L) 35.6 - 45.5 % [facility] Plt 299 150 - 400 K/cumm [facility] MPV 9.4 9.1 - 12.3 fL [facility] RBC 3.63(L) 3.90 - 5.20 M/cumm [facility] MCV 88.4 81.3 - 96.4 fL [facility] MCH 29.5 27.1 - 33.3 pg [facility] MCHC 33.3 32.3 - 35.7 g/dL [facility] RDW CV 13.9 11.1 - 14.9 % [facility] RDW SD 44.8 35.7 - 48.1 fL [facility] NRBC abs 0.00 0.00 - 0.01 K/cumm [facility] Blood specimen (specimen) 12/28/2019 9:38 PM CDT 12/28/2019 10:29 PM CDT us Kellyfam Irizarry MD LAB BLOOD SETH WOLFE Final Result [facility] Department [place] [address] * Surgical pathology (12/28/2019 9:44 AM CDT) Tissue (Uterus with/without tubes & ovaries, Non-neoplastic) 12/28/2019 9:44 AM CDT Narrative PATHOLOGY [facility] - 01/02/2020 3:34 PM CDT EPIC results best viewed via link to PDF [facility] Alise Gallo Laboratory [place] [address] SURGICAL PATHOLOGY REPORT FINAL Patient Name: ?? JAZ ALFORD Gender: ??F : ??1975 (Age: 44) Address: [address] [place], [place] ??[address] [facility] #: ??[id number] Taken:12/28/2019 Received:12/28/2019 Reported: 01/02/2020 Patient Type: [facility] Observation ?? Service: Surgery Location: [place] [address] Physician(s): ??Kelly Irizarry M.D. Cassius Ortega NP [...] respectively; A3 to A4 - anterior endomyometrium, in home sales representative full-thickness sections with roughened serosa included in A3; A5 to A6 - posterior endomyometrium, bisected in home sales representative full-thickness section; A7 - in home sales representative shorter fallopian tube; A8 - in home sales representative longer fallopian tube. ??Jar 2. 09/06/2812/29/2019 09:25 PA(s): Maria Arias MS, PA ([facility]) By this signature, I attest that the above diagnosis is based upon my personal examination of the slides(and/or other material). The performance characteristics of some immunohistochemical stains, fluorescence in-situ hybridization tests and immunophenotyping by flow cytometry cited in this report (if any) were determined by the Surgical Pathology Department at [facility] as part of an ongoing quality control lead program and in compliance with federally mandated [...] determined by the Surgical Pathology Department of [facility]. ??It has not been cleared or approved by the U. S. Food and Drug Administration. IMAGES AND SCANNED DOCUMENTS, IF INCLUDED, ONLY VIEWABLE IN PDF VERSION OF REPORT Kelly Irizarry MD LAB PATHOLOGY ORDERABLES Final Result PATHOLOGY [facility] 3rd Floor [place], [place] [phone] * POCT hCG, urine (12/28/2019 6:27 AM CDT) [facility] HCG, ur, POC Negative Lot Number [id number] QC Backgroud Clear Acceptable QC Control Line Acceptable Urine 12/28/2019 6:27 AM CDT Shonna Knight NP POINT OF CARE TEST ORDERABLES Final Result * (ABNORMAL) CBC without differential (12/28/2019 6:10 AM CDT) [facility] WBC 7.5 3.8 - 9.9 K/cumm [facility] Hgb 11.4(L) 11.9 - 15.5 g/dL [facility] Hct 34.5(L) 35.6 - 45.5 % [facility] Plt 283 150 - 400 K/cumm [facility] MPV 9.0(L) 9.1 - 12.3 fL [facility] RBC 3.98 3.90 - 5.20 M/cumm [facility] MCV 86.7 81.3 - 96.4 fL [facility] MCH 28.6 27.1 - 33.3 pg [facility] MCHC 33.0 32.3 - 35.7 g/dL [facility] RDW CV 13.8 11.1 - 14.9 % [facility] RDW SD 43.6 35.7 - 48.1 fL [facility] NRBC abs 0.00 0.00 - 0.01 K/cumm [facility] Blood specimen (specimen) 12/28/2019 6:10 AM CDT 12/28/2019 6:27 AM CDT us Kelly Maria Irizarry MD LAB BLOOD ORDE YANETH Final Result [facility] [place] [address] * (ABNORMAL) Basic metabolic panel (12/28/2019 6:10 AM CDT) [facility] Sodium 136 135 - 145 mmol/L [facility] Potassium, pl 4.2 3.3 - 4.9 mmol/L [facility] Chloride 105 97 - 110 mmol/L [facility] CO2 21(L) 22 - 32 mmol/L [facility] Anion gap 10 2 - 15 mmol/L [facility] BUN 8 8 - 25 mg/dL [facility] Creatinine 0.67 0.60 - 1.10 mg/dL [facility] Glucose 100 70 - 199 mg/dL [facility] Comment: Interpretive Data Fasting glucose >/= 126 [...] 2017. Calcium 9.0 8.5 - 10.3 mg/dL [facility] Blood specimen (specimen) 12/28/2019 6:10 AM CDT 12/28/2019 6:27 AM CDT us Kelly Maria Irizarry MD LAB BLOOD ORDE YANETH Final Result Performing Organization Address City/[facility] [address]/ZIP Co de Phone Number [facility] [place] [address] documented in this encounter Visit Diagnoses Diagnosis [...] Tineo RN)[id number] (Stopped - Provider: Judy Omer, [place]) PRN [...] 12/28/2019 documented in this encounter Care Teams Help Desk Agent Relationship Specialty Start [place] [address] [facility] [facility] [address] [address] PCP - General Family Medicine 02/21/19 documented as of this encounter
--- OUTSIDE RECORDS SUMMARY | 2024-08-10 02:11 | XMS_ITS | Encounter Summary ---
Author Organization [facility] Healthcare Address [address] [place] [address] Care Team Providers Care Thread Drawer Name Role Phone Cassius Ortega NP Primary Care Provider [phone] Encounter Details Date Type Department Care Team (Late st Contact Info) Description 05/03/2020 11:00 AM CDT Lab [facility] [address] [place] [address] Alley Ricketts MD 4528 [facility] [address] [place], [place] [id number] Sore throat Discharge Disposition: Discharge to home [...] on file Legal Sex Female 1:09 AM OPERATIONS/DISPATCH Gender Identity Not on file Sexual Orientation [...] 11:45 AM CDT) COVID-19 RNA Not Detected [facility] Comment: Interpretive Data Testing performed at [facility] Molecular Infectious Disease Laboratory. The 2018-Novel [...] last revised on 2019. Testing performed by: [facility], [address] [place] [address], [address] First COVID-19 test? No [facility] Comment:Testing performed by : [facility], [address] [place] [address], [address] Employeed in healthcare? Yes [facility] Comment:Testing performed by : [facility], [address] [place] [address], [address] status? No [facility] Comment:Testing performed by : [facility], [address] [place] [address], [address] Group care resident? No [facility] Comment:Testing performed by : [facility], [address] [place] [address], [address] Hospitalized? No [facility] Comment:Testing performed by : [address], [address] Is patient in ICU? No [facility] Comment:Testing performed by : [address], [address] Symptomatic as defined by CDC? Yes [facility] Comment:Testing performed by : [facility], 1 [facility], [place]., [address] Nasopharyngeal 05/03/2020 11 :45 AM CDT 05/04/2020 8:25 AM CDT [facility]ative [facility] - 05/04/2020 5:02 PM CDT Patient is employed by/enrolled at:->[facility] What is the reason for testing?->Symptoms compatible with COVID-19 in high-risk group (defined above in process inst.) Date of symptom onset->05/03/20 us Alley Ricketts MD LAB MICROBIOLOGY - GENERAL ORDERABLES Final Result [facility] [address] Department of Laboratories [place], [place] [id number] documented in this encounter Visit Diagnoses Diagnosis Sore throat Acute pharyngitis documented in this encounter Additional Health Concerns Infection Onset Date Last Indicated Resolved Time COVID: Suspected 05/03/2020 05/03/2020 05/04/2020 5:04 PM CDT documented as of this encounter Care Teams Thread Drawer Relationship Specialty Start [place] [address] [address] [facility] [address] [address] PCP - General Family Medicine 02/21/19 documented as of this encounter
--- OUTSIDE RECORDS SUMMARY | 2024-08-10 02:11 | XMS_ITS | Encounter Summary ---
Author Organization [facility] Healthcare Address [address] [place] [address] Care Team Providers Care Phlebotomist Lab Assistant Name Role Phone Cassius Ortega NP Primary Care Provider [phone] Reason for Visit * Reason Onset Date Comments [facility] 11/09/2019 Encounter Details Date Type Department Care Team (Late st Contact Info) Description 11/09/2019 Telephone [facility] HealthCare/ Physicians [address] [place] [address] [place] [address] [facility] [address] [address] [facility] Medical Social History Tobacco Use Types Packs/Day Years Used Date Smoking Tobacco: Never Smokeless Tobacco: Never Alcohol Use Standard Drinks/Week Comments Yes 0 (1 standard drink = 0.6 oz pur e alcohol) PHQ-2 Answer Date Recorded PHQ-2 Score 2 05/15/2019 Comments No Sex and Gender Information Value Date Recorded Sex Assigned at Not on file Legal Sex Female 1:09 AM MACHINING ASSOCIATE Gender Identity Not on file Sexual [...] courtesy call to advise. Caller's Callback #: [phone] Did you relay expectation for processing (up to 24 hours)? Sending as FYI documented in this encounter Plan of Treatment Not on file documented as of this encounter Visit Diagnoses Not on filedocumented in this encounter Care Teams Phlebotomist Lab Assistant Relationship Specialty Start [place] [address] [address] [facility] [address] [address] PCP - General Family Medicine 02/21/19 documented as of this encounter
--- OUTSIDE RECORDS SUMMARY | 2024-08-10 02:11 | XMS_ITS | Encounter Summary ---
Author Organization [facility] Healthcare Address [address] [place] [address] Care Team Providers Care Manager Sales And Marketing Name Role Phone Cassius Ortega NP Primary Care Provider [phone] Encounter Details Date Type Department Care Team (Late st Contact Info) Description 12/28/2019 7:25 AM CDT Anesthesia Event [facility] Operating Room [address] [place] [id number] Janeth Soares MD [address] [place] [address] Melquiades Porter MD [address] [place] [address] Anesthesia Record Procedure Summary Procedure Name Responsible [...] 0923; Abdomen; 07/04/24 (Retired LDA, Removed/Completed by Lentigen with LDA Utility); 1213 (Retired LDA, Removed/Completed by Lentigen with LDA Utility) 12/28/19 0923 by Arian [...] on file Legal Sex Female 1:09 AM BRICK BURNER Gender Identity Not on file Sexual Orientation Not on file 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 documented as of this encounter OR Notes * Anesthesia Postprocedure Evaluation - Janeth Soares MD - 12/28/2019 11:31 AM CDT Patient: Олег Paz Procedure Summary Date: 12/28/19 Room / Location: [facility] OR POD 1 ROOM 321 / [facility] OR POD 1 Anesthesia Start: 724 Anesthesia [...] time: 12/28/2019 7:45 AM Staff: Placed by: CUSTOMER SERVICE ENGINEER: Micaela Murguia CRNA Preprocedure prep: Prep solution: [...] Supervising provider: Janeth Soares MD Placed by: CUSTOMER SERVICE ENGINEER: Micaela Murguia CRNA Emergent airway documentation: Risks [...] Planning Preoperative Evaluation Record Evaluation type/location: CPAP [facility] Planned procedure site: [facility] PVT OR (Pod 1) Date: 12/26/19 Anesthesia [...] on statin therapy) Pertinent negatives: CAD ; SC ; CABG ; valvular heart disease; valve [...] Pre-Procedural Assessment performedby the above primary evaluating MATCHER OPERATOR, who is currently in the CPAP MATCHER OPERATOR Orientation interval. Signed by: Kelly Terrazas NP [...] 1 tablet (150 mcg total) by mouth rice drier operator before breakfast Patient taking differently: Take 150 mcg by mouth rice drier operator before breakfast losartan (COZAAR) 50 mg tablet 05/09/19 -- Historical Provider, norethindrone (AYGESTIN) 5 mg tablet 11/30/19 11/29/20 Kelly Irizarry MD Take 2 tablets (10 mg [...] Medication protocol when under care of a CUSTOMER SERVICE ENGINEER Planned anesthesia: General Team communication plan: oral ET tube Induction: Induction: intravenous. Postoperative Plan: Postoperative administration opioids intended. Informed Consent: Discussed plan with CUSTOMER SERVICE ENGINEER. Anesthesia plan and risks discussed with patient. [...] Priority Date/Time Associated Diagnosis Comments HI AN PROCEDURE PLACEHOLDER Routine 12/28/2019 8:05 AM CDT HI AN PROCEDURE PLACEHOLDER Routine 12/28/2019 8:02 AM CDT HI AN ELECTIVE ENDOTRACHEAL AIRWAY Routine 12/28/2019 8:02 AM CDT documented in this encounter Results * HI AN PROCEDURE PLACEHOLDER (12/28/2019 8:05 AM CDT) Micaela Pelayo CRNA - 12/28/2019 8:05 AM CDT Micaela Murguia CRNA ? 12/28/2019 ??8:06 AM Peripheral IV Catheter Patient location: OR Start time: 12/28/2019 7:45 AM End time: 12/28/2019 7:45 AM Staff: Placed by: CUSTOMER SERVICE ENGINEER: Micaela Murguia CRNA Preprocedure prep: Prep solution: alcohol PPE: gloves and provider hat/mask PIV line: Laterality: right Site: hand Catheter size: 18 g Technique: direct visualization Procedure details: good blood return and occlusive dressing applied Number of attempts: 1 Assessment: Events: patient tolerated procedure well with no complications Janeth Soares MD ANESTHESIA ORDERABLE S Final Result * HI AN ELECTIVE ENDOTRACHEAL AIRWAY, HI AN PROCEDURE PLACEHOLDER (12/28/2019 8:02 AM CDT) Micaela Pelayo CRNA - 12/28/2019 8:02 AM CDT Micaela Murguia CRNA ? 12/28/2019 ??8:04 AM Airway Patient location: OR Urgency: elective Date/time: 12/28/2019 7:40 AM Indications for airway management: anesthesia Difficult airway: no Staff: Supervising provider: Janeth Soares MD Placed by: CUSTOMER SERVICE ENGINEER: Micaela Murguia CRNA Emergent airway documentation: Risks [...] mg documented in this encounter Care Teams Manager Sales And Marketing Relationship Specialty [place] [address] [address] [address] PCP - General Family Medicine 02/21/19 documented as of this encounter
--- OUTSIDE RECORDS SUMMARY | 2024-08-10 02:11 | XMS_ITS | Encounter Summary ---
Author Organization [facility] Healthcare Address [address] [place] [address] Care Team Providers Care Library Clerical Assistant Name Role Phone Cassius Ortega NP Primary Care Provider [phone] Reason for Visit * Reason Onset Date Comments COVID-19 EVALUATION 05/03/2020 Encounter Details Date Type Department Care Team (Late st Contact Info) Description 05/03/2020 Telephone [facility] [address] [place] [address] Room 3420 (Third Floor) [place] [address] Aye Ballard RN COVID-19 EVALUATION Social History [...] file Legal Sex Female 1:09 AM DIRECTOR RADIO Gender Identity Not on file Sexual Orientation [...] AM CDT Employee COVID-19 Screening 05/03/2020 Email: [email or web address] Employee/Student ID# [id number] Phone: [phone] Are you an employee or student? Employee Employer: [facility] Employee Facility: [facility] Does your job primarily involve providing care for bone marrow transplant patients? No What department do you work/study in? 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 ?? If you are working on site, you must leave work now. Notify your supervisor engines road that you have been directed to do so by the Occupational Health Employee Covid- 19 Call Center. ?? Please go to the testing site as directed for a Covid-19 test. They should be expecting you; if there is any confusion, please call us at [phone]. ?? While you are awaiting testing and results, you must remain away from any on- site work. You should isolate yourself at home, avoid contact with any household members as much as possible, and stay in your home without leaving except for medical care. If you are in a role that you can perform remotely at home, please discuss with your manager spring. ?? If your symptoms worsen, please call [...] Health. Occupational Health will notify youand your entry level assistant manager when you can return to work. ?? Should your test result positive, Occupational Health ([place]) will work with you to identify any close contacts you may have had at work. [place] will then alert your work contacts directly; you do not have to. Your supervisor engines road should consult with [place] if they have [...] hours. Your resultswill also post to your [facility]/[employer] account ([email or web address]) We will send you an email with home quarantine instructions. If you have any questions, please callus at [phone] documented in this encounter Plan of Treatment Not on file documented as of this encounter Results * COVID-19 Coronavirus RNA Nasopharyngeal (05/03/2020 11:45 AM CDT) COVID-19 RNA Not Detected [facility] Comment: Interpretive Data Testing performed at [facility] Molecular Infectious Disease Laboratory. The 2019-Novel Coronavirus [...] last revised on 2019. Testing performed by: [facility], [address] [place] [address], [id number] First COVID-19 test? No [facility] Comment:Testing performed by : [facility], [address] [place] [address], [address] Employeed in healthcare? Yes [facility] Comment:Testing performed by : [facility], [address] [place] [address], [address] status? No [facility] Comment:Testing performed by : [facility], [address] [place] [address], [address] Group care resident? No [facility] Comment:Testing performed by : [facility], [address] [facility], [address] Hospitalized? No [facility] Comment:Testing performed by : [facility], [address] [place] [address], [address] Is patient in ICU? No [facility] Comment:Testing performed by : [facility], [address] [place] [address], [address] Symptomatic as defined by CDC? Yes [facility] Comment:Testing performed by : [address], [address] Nasopharyngeal 05/03/2020 11 :45 AM CDT 05/04/2020 8:25 AM CDT Narrative [facility] - 05/04/2020 5:02 PM CDT Patient is employed by/enrolled at:->[facility] What is the reason for testing?->Symptoms compatible with COVID-19 in high-risk group (defined above in process inst.) Date of symptom onset->05/03/20 us Alley Ricketts MD LAB MICROBIOLOGY - GENERAL ORDERABLES Final Result [facility] [address] Department [place] [address] documented in this encounter Visit Diagnoses Diagnosis Sore throat- Primary Acute pharyngitis Sore throat Acute pharyngitis documented in this encounter Additional Health Concerns Infection Onset Date Last Indicated Resolved Time COVID: Suspected 05/03/2020 05/03/2020 05/04/2020 5:04 PM CDT documented as of this encounter Care Teams Library Clerical Assistant Relationship Specialty Start [place] [address] [address] [facility] [address] [address] PCP - General Family Medicine 02/21/19 documented as of this encounter
--- OUTSIDE RECORDS SUMMARY | 2024-08-10 02:11 | XMS_ITS | Encounter Summary ---
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 Urine, in and out catheter 01/08/2020 3:01 PM CDT 01/08/2020 6:06 PM CDT Narrative [facility] - 01/09/2020 7:25 PM CDT Testing performed by [facility] Microbiology Laboratory ([phone]) us Kelly Maria Irizarry MD LAB MICROBIOLO GY - GENERAL ORDERABLES Final Result [facility] One [facility] Department [place] [address] documented in this encounter Visit Diagnoses Diagnosis Hematuria, unspecified type documented in this encounter Care Teams Floral Merchandiser Relationship Specialty [place] [address] [address] [facility] [address] [place] [address] PCP - General Family Medicine 02/21/19 documented as of this encounter
--- OUTSIDE RECORDS SUMMARY | 2024-08-10 02:11 | XMS_ITS | Encounter Summary ---
Author Organization [facility] Address [address] [facility] [address] [place] [address] Phone Care Team Providers Care Depositing Machine Operator Name Role Phone Cassius Ortega NP Primary Care Provider [phone] Encounter Details Date Type Department Care Team (Late st Contact Info) Description 10/24/2019 Orders Only 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
--- OUTSIDE RECORDS SUMMARY | 2024-08-10 02:11 | XMS_ITS | Encounter Summary ---
Author Organization [facility] Healthcare Address [address] [place] [address] Care Team Providers Care Buttonholer Name Role Phone Cassius Ortega NP Primary Care Provider [phone] Encounter Details Date Type Department Care Team (Late st Contact Info) Description 10/20/2019 11:45 AM CDT Lab [facility] PATHOLOGY [address] [place] [address] Social History Tobacco Use Types Packs/Day Years Used Date Smoking Tobacco: Never Smokeless Tobacco: Never Alcohol Use Standard Drinks/Week Comments Yes 0 (1 standard drink = 0.6 oz pur e alcohol) PHQ-2 Answer Date Recorded PHQ-2 Score 2 05/15/2019 Comments No Sex and Gender Information Value Date Recorded Sex Assigned at Not on file Legal Sex Female 1:09 AM COURTROOM DEPUTY Gender Identity Not on file Sexual Orientation [...] best viewed via link to PDF [facility] Alise Gallo [facility] [place] [address] SURGICAL PATHOLOGY REPORT FINAL Patient Name: ?? DEEJAY ALFORD Gender: ??F : ??1975 (Age: 44) Address: ??[address] [place] [address] Hospital #: ??[id number] Taken:10/20/2019 Received:10/20/2019 Reported: 10/23/2019 Patient Type: [facility] Ref Lab ?? Service: Gynecology Location: [facility] Physician(s): ??Kelly Irizarry M.D. Diagnosis: Uterus, endometrium, [...] determined by the Surgical Pathology Department at [facility] as part of an ongoing quality measurement specialist program and in compliance with federally mandated [...] determined by the Surgical Pathology Department of [facility]. ??It has not been cleared or approved by the U. S. Food and Drug Administration. IMAGES AND SCANNED DOCUMENTS, IF INCLUDED, ONLY VIEWABLE IN PDF VERSION OF REPORT us Kelly Maria Irizarry MD LAB PATHOLOGY ORDERABLES Final Result documented in this encounter Visit Diagnoses Not on filedocumented in this encounter Care Teams Buttonholer Relationship Specialty Start [place] [address] [address] [facility] [address] [place] [address] PCP - General Family Medicine 02/21/19 documented as of this encounter
--- OUTSIDE RECORDS SUMMARY | 2024-08-10 02:11 | XMS_ITS | Encounter Summary ---
Author Organization [facility] Address [address] [facility] [address] [place] [address] Phone Care Team Providers Care Instructor Apparel Manufacture Name Role Phone Cassius Ortega NP Primary Care Provider [phone] Reason for Visit * Reason Comments Follow up from ultrasound Encounter Details Date Type Department Care Team (Late st Contact Info) Description 09/20/2019 4:30 PM DIRECTOR OF INSTRUCTION Office Visit [facility] Obstetrics and Gynecology [facility] Outpatient Health 7th Floor [address] [place] [address] Kelly Irizarry MD [address] [place] [address] [phone] [place] [address] Abnormal uterine bleeding (Primary Dx); [...] Legal Sex Female 1:09 AM DIRECTOR OF INSTRUCTION Gender Identity Not on file Sexual Orientation Not on file 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 documented as of this encounter Last Filed Vital Signs Vital Sign Reading Time Taken Comments Blood Pressure 125/85 09/20/2019 4:30 PM DIRECTOR OF INSTRUCTION Pulse - - Temperature - - Respiratory Rate - - Oxygen Saturation - - Inhaled Oxygen Concentration - - Weight 98.1 kg (216 lb 6 oz) 09/20/2019 4:30 PM DIRECTOR OF INSTRUCTION Height 165.1 cm (5' 5 ) 09/20/2019 4:30 PM DIRECTOR OF INSTRUCTION Body Mass Index 36.01 09/20/2019 4:30 PM DIRECTOR OF INSTRUCTION documented in this encounter Ordered Prescriptions Prescription [...] Irizarry MD - 09/20/2019 4:30 PM CST TAX CLERK visit note Chief Complaint: Chief Complaint Follow [...] and this was normal. Hasn't seen a [facility] in at least 5 years. Last saw [...] HX OTHER MEDICAL 2006 Caesarean section; Comments: [facility] 04/06/2014 - ??? HX OTHER MEDICAL 2008 C section; Comments: [facility] 04/06/2014 - ??? HX OTHER MEDICAL 05/2013 l4/l5 dissection; Comments: [facility] 04/06/2014 - ??? HX OTHER MEDICAL 2008 Tubaligation; Comments: [facility] 04/06/2014 - ??? HX OTHER MEDICAL postpardum [...] level: None Occupational History ??? 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 Financial resource strain: [...] on phone: None Gets together: None Attends protestant service: None Active member of club or [...] 1 tablet (150 mcg total) by mouth tamale machine feeder before breakfast, Disp: 90 tablet, Rfl: 3 [...] documented as of this encounter Care Teams Instructor Apparel Manufacture Relationship Specialty Start [place] [address] [address] [address] PCP - General Family Medicine 02/21/19 documented as of this encounter
--- OUTSIDE RECORDS SUMMARY | 2024-08-10 02:11 | XMS_ITS | Encounter Summary ---
Author Organization [facility] Address [address] [facility] [address] [place] [address] Care Team Providers Care Owner Consulting Engineer Name Role Phone Cassius Ortega NP Primary Care Provider Encounter Details Date Type Department Care Team (Late st Contact Info) Description 04/15/2020 Telephone [place] Coating Machine Operator [address] [facility] [address] [place] [address] Charly Olson MD [address] [place] [address] Social History Tobacco Use Types Packs/Day Years Used Date Smoking Tobacco: Never Smokeless Tobacco: Never Alcohol Use Standard Drinks/Week Comments Yes 0 (1 standard drink = 0.6 oz pur e alcohol) socially PHQ-2 Answer Date Recorded PHQ-2 Score 2 05/15/2019 Comments No Sex and Gender Information Value Date Recorded Sex Assigned at Not on file Legal Sex Female 1:09 AM STATISTICAL ENGINEER Gender Identity Not on file Sexual [...] on filedocumented in this encounter Care Teams Owner Consulting Engineer Relationship Specialty [place] [address] [address] [facility] [address] [address] PCP - General Family Medicine 02/21/19 documented as of this encounter
--- OUTSIDE RECORDS SUMMARY | 2024-08-10 02:11 | XMS_ITS | Encounter Summary ---
Author Organization [facility] Address [address] [facility] [address] [place] [address] Phone Care Team Providers Care Canal Boat Captain Name Role Phone Cassius Ortega NP Primary Care Provider [phone] Reason for Visit * Consultation (Routine) - Closed Specialty Diagnoses / Procedures Referred By Cara alvarez Referred To Contact Obstetrics and Gynecology Diagnoses Thickened endometrium Kelly Irizarry MD [address] [facility] [phone] [place] [address] Phone: tel: fax: [facility] (All Locations) Referral ID Status Reason Start Date Expiration Date V isits Requested Visits Authorized [id number] Closed Specialty Services Required 10/18/2019 04/28/2021 1 1 Encounter Details Date Type Department Care Team (Late st Contact Info) Description 10/20/2019 9:15 AM CDT Procedure visit [facility] Obstetrics and Gynecology [facility] 7th Floor [address] [place] [address] Kelly Irizarry MD [address] [facility] [phone] [place] [address] Thickened endometrium Social History Tobacco [...] file Legal Sex Female 1:09 AM INDUSTRIAL THERAPIST Gender Identity Not on file Sexual [...] Fir st Ordered Date AMB REFERRAL TO OB-TEXTILE WORKER 1 10/20/2019 documented in this encounter Care Teams Canal Boat Captain Relationship Specialty [place] [address] [address] [facility] [address] [address] PCP - General Family Medicine 02/21/19 documented as of this encounter
--- OUTSIDE RECORDS SUMMARY | 2024-08-10 02:11 | XMS_ITS | Encounter Summary ---
Author Organization [facility] Address [address] [facility] [address] [place] [address] Phone Care Team Providers Care Director Of Promotions Name Role Phone Cassius Ortega NP Primary Care Provider [phone] Encounter Details Date Type Department Care Team (Late st Contact Info) Description 11/28/2019 Orders Only [facility] Obstetrics and Gynecology [address] 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
--- OUTSIDE RECORDS SUMMARY | 2024-08-10 02:11 | XMS_ITS | Encounter Summary ---
Author Organization [facility] Address [address] [facility] [address] [place] [address] Phone Care Team Providers Care Internship Name Role Phone Cassius Ortega NP Primary Care Provider [phone] Reason for Visit * Reason Comments Follow-up Encounter Details Date Type Department Care Team (Late st Contact Info) Description 01/24/2020 1:20 PM CDT Office Visit [facility] Obstetrics and Gynecology [address] [facility] Outpatient Health 7th Floor [address] [place] [address] Kelly Irizarry MD [address] [place] [address] [facility] [phone] [place] [address] Postop check (Primary Dx) Social [...] on file Legal Sex Female 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
--- OUTSIDE RECORDS SUMMARY | 2024-08-10 02:11 | XMS_ITS | Encounter Summary ---
Author Organization [facility] Address [address] [facility] [address] [place] [address] Care Team Providers Care Repairer Hairspring Name Role Phone Cassius Ortega NP Primary Care Provider Encounter Details Date Type Department Care Team (Late st Contact Info) Description 11/07/2019 Orders Only [facility] [address] [facility] [address] [place] [address] Cassius Ortega [place] [id number] [place] [address] 2 [facility] [address] [place] [address] Social History Tobacco Use Types Packs/Day Years Used Date Smoking Tobacco: Never Smokeless Tobacco: Never Alcohol Use Standard Drinks/Week Comments Yes 0 (1 standard drink = 0.6 oz pur e alcohol) PHQ-2 Answer Date Recorded PHQ-2 Score 2 05/15/2019 Comments No Sex and Gender Information Value Date Recorded Sex Assigned at Not on file Legal Sex Female 1:09 AM CV/CVN 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
--- OUTSIDE RECORDS SUMMARY | 2024-08-10 02:11 | XMS_ITS | Encounter Summary ---
Author Organization 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
--- OUTSIDE RECORDS SUMMARY | 2024-08-10 02:11 | XMS_ITS | Encounter Summary ---
Author Organization [facility] Address [address] [facility] [address] [place] [address] Phone Care Team Providers Care Water Taxi Operator Name Role Phone Cassius Ortega NP Primary Care Provider [phone] Encounter Details Date Type Department Care Team (Late st Contact Info) Description 12/27/2019 Orders Only [facility] Obstetrics and Gynecology [address] [facility] Outpatient Health 7th Floor [address] [place] [address] Kelly Irizarry MD [address] [facility] [phone] [place] [address] Social History Tobacco Use Types Packs/Day Years Used Date Smoking Tobacco: Never Smokeless Tobacco: Never Alcohol Use Standard Drinks/Week Comments Yes 0 (1 standard drink = 0.6 oz pur e alcohol) socially PHQ-2 Answer Date Recorded PHQ-2 Score 2 05/15/2019 Comments No Sex and Gender Information Value Date Recorded Sex Assigned at Not on file 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
--- OUTSIDE RECORDS SUMMARY | 2024-08-10 02:12 | XMS_ITS | Encounter Summary ---
Author Organization [facility] Address [address] [place] [address] Care Team Providers Care Oracle Database Administrator Name Role Phone Cassius Ortega NP Primary Care Provider [phone] Encounter Details Date Type Department Care Team (Late st Contact Info) Description 09/04/2019 3:20 PM SUPERVISOR PARTIAL DENTURE DEPARTMENT Lab [address] [address] Social History Tobacco Use Types Packs/Day Years Used Date Smoking Tobacco: Never Smokeless Tobacco: Never Alcohol Use Standard Drinks/Week Comments Yes 0 (1 standard drink = 0.6 oz pur e alcohol) PHQ-2 Answer Date Recorded PHQ-2 Score 2 05/15/2019 Comments No Sex and Gender Information Value Date Recorded Sex Assigned at Not on file 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PARTIAL DENTURE DEPARTMENT Gender Identity Not on file Sexual Orientation Not on file 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 GONORRHOEAE/C. TRACHOMATIS AMPLIFICATION Routine 09/01/2019 8:25 AM SUPERVISOR PARTIAL DENTURE DEPARTMENT documented in this encounter Results * N. gonorrhoeae/C. trachomatis Amplification Thin prep (09/01/2019 8:25 AM SUPERVISOR PARTIAL DENTURE DEPARTMENT) C. trachomatis Not detected Not detected [facility] N. gonorrhoeae Not detected Not detected [facility] Comment: Testing performed by the [facility]. This assay detects Chlamydia trachomatis and Neisseria gonorrhoeae by nucleic acid amplification testing (NAAT). This test is approved by the [place] Food and Drug Administration and the performance characteristics have been verified by the laboratory. The performance characteristics of this test have not been evaluated in women or individuals less than 16 years of age. Thin prep 09/01/2019 8:25 AM SUPERVISOR PARTIAL DENTURE DEPARTMENT 09/05/2019 8:25 AM SUPERVISOR PARTIAL DENTURE DEPARTMENT Narrative [facility] - 09/06/2019 11:51 AM SUPERVISOR PARTIAL DENTURE DEPARTMENT [id number] Physician No LAB MICROBIOLOGY - GENERAL ORDER NOAH Final Result [facility] [address] [address] [place] [address] documented in this encounter Visit Diagnoses Not on filedocumented in this encounter Care Teams Oracle Database Administrator Relationship Specialty [place] [address] [address] [place] [address] PCP - General Family Medicine 02/21/19 documented as of this encounter
--- OUTSIDE RECORDS SUMMARY | 2024-08-10 02:12 | XMS_ITS | Encounter Summary ---
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
--- OUTSIDE RECORDS SUMMARY | 2024-08-10 02:12 | XMS_ITS | Encounter Summary ---
Author Organization [facility] Address [address] [facility] [address] [place] [address] Care Team Providers Care Tool Room Machinist Name Role Phone Kelly Olson NP Primary Care Provider [phone] Encounter Details Date Type Department Care Team (Late st Contact Info) Description 01/24/2018 Telephone [facility] [address] [facility] [address] [place] [address] Jennifer Zazueta [place] [id number] [place] [address] [address] [place] [address] Social History Tobacco Use Types Packs/Day Years Used Date Smoking Tobacco: Never Smokeless Tobacco: Never Alcohol Use Standard Drinks/Week Comments Yes 0 (1 standard drink = 0.6 oz pur e alcohol) Comments No Sex and Gender Information Value Date Recorded Sex Assigned at Not on file Legal Sex Female 1:09 AM CLIENT SERVICE REPRESENTATIVE Gender Identity Not on file Sexual [...] filedocumented in this encounter Care Teams Tool Room Machinist Relationship Specialty [place] [address] [place] [address] [address] PCP - General 03/15/17 06/20/18 documented as of this encounter
--- OUTSIDE RECORDS SUMMARY | 2024-08-10 02:12 | XMS_ITS | Encounter Summary ---
Author Organization [facility] Address [address] [facility] [address] [place] [address] Phone Care Team Providers Care Front Desk Host Name Role Phone Kelly Olson NP Primary Care Provider [phone] Brittani Agosto MD Primary Care Provider [phone] Cassius Ortega NP Primary Care Provider [phone] Roya Andre Unavailable [phone] Encounter Details Date Type Department Care Team (Late st Contact Info) Description 09/09/2017 Orders Only [facility] ProviderAnais MD [address] [place] [address] Social History Tobacco Use Types Packs/Day Years Used Date Smoking Tobacco: Never Smokeless Tobacco: Never Alcohol Use Standard Drinks/Week Comments Yes 0 (1 standard drink = 0.6 oz pur e alcohol) Comments No Sex and Gender Information Value Date Recorded Sex Assigned at Not on file Legal Sex Female 1:09 AM JAVA SUPPORT ENGINEER Gender Identity Not on file Sexual Orientation Not on file 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 Historical Provider MD LAB CYTOLOGY ORDERABLES F inal Result * DISCHARGE LABORATORY CUMULATIVE REPORT (09/09/2017 12:00 AM JAVA SUPPORT ENGINEER) Narrative 09/09/2017 12:00 AM JAVA SUPPORT ENGINEER Ordered by an unspecified provider. Historical Provider [...] COVID: Suspected 07/15/2021 07/15/2021 07/29/2021 3:05 AM JAVA SUPPORT ENGINEER documented as of this encounter Care Teams Front Desk Host Relationship Specialty [place] [address] [address] [facility] [address] [place] [address] PCP - General 03/15/17 06/20/18 [place] [address] [address] [facility] [address] [place] [address] PCP - General Family Medicine 06/21/18 02/19/19 [place] [address] [facility] [address] [place] [address] PCP - General Family Medicine 02/21/19 Roya Andre PA [address] [facility] [address] [place] [address] Physician Speeder Machine Operator Orthopedic Surgery 04/09/22 Alina Higginbotham SUPERVISOR CARTOGRAPHY [address] [facility] [address] Business Area Manager Infectious Diseases 10/08/22 documented as of this encounter
--- OUTSIDE RECORDS SUMMARY | 2024-08-10 02:12 | XMS_ITS | Encounter Summary ---
Author Organization [facility] Healthcare Address [address] [place] [address] Care Team Providers Care Bank Analyst Name Role Phone Kelly Olson NP Primary Care Provider [phone] Reason for Visit * Diagnostic Imaging (Routine) - Closed Specialty Diagnoses / Procedures Referred By Contac t Referred To Contact Diagnoses Right upper quadrant pain Procedures NM Hepatobiliary Imaging W Pharmaceutical Intervention NM Hepatobiliary Imaging W Gallbladder Jennifer Zazueta MD Phone: tel: fax: [address] [address] Referral ID Status Reason Start Date Expiration Date Visits Re quested Visits Authorized [id number] Closed 01/24/2018 08/05/2019 1 1 Encounter Details Date Type Department Care Team (Late st Contact Info) Description 01/25/2018 9:00 AM CDT - 01/25/2018 11:59 PM CDT Hospital Encounter [facility] Nuclear Medicine [address] [place] [address] [place] [address] [address] Right upper quadrant pain Discharge [...] file Legal Sex Female 1:09 AM DIRECTOR DATA MANAGEMENT Gender Identity Not on file Sexual Orientation [...] mcg tablet Take 150 mcg by mouth commercial electrician before breakfast. 09/06/2018 documented as of this [...] by: Jessica Lilly M.D. Jennifer Zazueta MD [facility] PROCEDURES Final Result documented in this [...] 01/25/2018 documented in this encounter Care Teams Bank Analyst Relationship Specialty [place] [address] [place] [id number] PCP - General 03/15/17 06/20/18 documented as of this encounter
--- OUTSIDE RECORDS SUMMARY | 2024-08-10 02:12 | XMS_ITS | Encounter Summary ---
Author Organization [facility] Healthcare Address [address] [place] [address] Care Team Providers Care Field Care Manager Name Role Phone Cassius Ortega NP Primary Care Provider [phone] Reason for Visit * Reason Comments Chest Pain Encounter Details Date Type Department Care Team (Late st Contact Info) Description 04/13/2019 8:58 AM CDT - 04/13/2019 3:34 PM T Emergency [facility] Emergency Department [address] [place] [address] [place] [address] [facility] [address] [place], [place] [id number] Chest pain, unspecified type (Primary Dx); Essential [...] on file Legal Sex Female 1:09 AM CIRCUS HAND Gender Identity Not on file Sexual [...] Care Everywhere. * Chest Pain (AfterCare(R) Instructions(ER/ED)) (Telugu) * Hypertension, To Be Confirmed (Telugu) documented in this encounter Medications at Time [...] 1 tablet (150 mcg total) by mouth machine deicer element winder before breakfast 30 tablet 02/21/2019 9 traMADol [...] HX OTHER MEDICAL 2006 Caesarean section; Comments: [facility] 04/06/2014 - ??? HX OTHER MEDICAL 2008 C section; Comments: [facility] 04/06/2014 - ??? HX OTHER MEDICAL 05/2013 l4/l5 dissection; Comments: [facility] 04/06/2014 - ??? HX OTHER MEDICAL 2008 Tubaligation; Comments: [facility] 04/06/2014 - ??? HX OTHER MEDICAL [...] education level: None Occupational History ??? Occupation: [employer] Employer: [employer] Social Needs ??? 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 She reports the pain starts in her chest and radiates to her back and into her LUE. Pt also states she has numbness in LUE, nausea, and notes SOB. Pt states her BP was 209/108 at work. She is currently taking Celexa. She denies history of smoking or any pain upon deep inspiration. History provided by: Patient gambling cashier used: No Patient History Patient Active Problem [...] HX OTHER MEDICAL 2006 Caesarean section; Comments: [facility] 04/06/2014 - ??? HX OTHER MEDICAL 2008 C section; Comments: [facility] 04/06/2014 - ??? HX OTHER MEDICAL 05/2013 l4/l5 dissection; Comments: [facility] 04/06/2014 - ??? HX OTHER MEDICAL 2008 Tubaligation; Comments: [facility] 04/06/2014 - ??? HX OTHER MEDICAL [...] CHANGE. Electronically signed by: Александр Underwood M.D. [facility] Number of Diagnoses or Management Options [...] Comment: Discussed patient's case with Dr. Almonte, pepper cutter, who agree with plan for discharge following [...] 5th Gen 6 6 - 14 ng/L [facility] Troponin T, 3 Hr Delta 0 ng/L [facility] Blood specimen (specimen) 04/13/2019 12:30 PM CDT 04/13/2019 12:40 PM CDT us Libertad Suazo MD LAB BLOOD ORDERABLES Fi nal Result [facility] [address] [place] [address] * TRANSTHORACIC ECHO (TTE) COMPLETE W DOPPLER/CF WO CONTRAST (04/13/2019 11:18 AM CDT) Anatomical Region Laterality Modality Ultrasound 04/13/2019 10:4 4 AM CDT Narrative 04/13/2019 11:27 [place] [address] Echocardiogram Report Patient Name: JAZ ALFORD : 1975 Study Date: 04/13/2019 10:44:45 AM Gender: F Tech: Location: ED03 Ref.Provider: LIBERTAD SUAOZ Height(Cm): 165 BSA: 6.53 Weight(Kg): 931 Heart [...] function. Electronically Signed By: Charly Almonte MD, [facility] 2019-04-13 11:27:45 CDT Procedure Note Charly Almonte MD - 04/13/2019 [place] [address] Echocardiogram Report Patient Name: JAZ ALFORDPatient ID: [id number] : [id number] Date: 04/13/2019 10:44:45 AM Gender: FAccession #: [id number] Tech: JCLocation: ED03 Ref.Provider: Tracy SUAZOt(Cm): 165 [...] - 100 ] msec MVA3.40 MV Decel Fraq718 [ 104 - 258 ] msec PV [...] function. Electronically Signed By: Charly Almonte MD, [facility] 2019-04-13 11:27:45 CDT us Nguyen Melgoza ACTUARIAL MATHEMATICIAN CV ECHO PROCEDURES Final Result * XR [...] CHANGE. Electronically signed by: Александр Underwood M.D. us Libertad Suazo MD IMG XR PROCEDURES Final Result * eGFR (04/13/2019 9:11 AM CDT) Pathologist [facility] eGFR 104 mL/min/1.7 3 m2 [facility] Comment: Interpretive Data Reference Interval Normal ?>/= 90 mL/min/1.73m2 Mildly decreased* ? 60 - 89 mL/min/1.73m2 Mildly to moderately decreased ?45 - 59 mL/min/1.73m2 Moderately to severely decreased ??30 - 44 mL/min/1.73m2 Severely decreased ?15 - 29 mL/min/1.73m2 Kidney Failure ?< 15 ??mL/min/1.73m2 *Relative to young adult level If -Turkmen multiply value by 1.16. Estimated glomerular filtration [...] CDT Libertad Suazo MD LAB BLOOD ORDERABLES [facility] Result [facility] [address] [place] [address] * Differential, auto (04/13/2019 9:11 AM CDT) Neutrophil abs 4.7 1.7 - 6.5 K/cumm [facility] Imm gran abs 0.0 0.0 - 0.1 K/cumm [facility] Lymphocyte abs 2.1 0.8 - 3.3 K/cumm [facility] Monocyte abs 0.7 0.2 - 0.8 K/cumm [facility] Eosinophil abs 0.1 0.0 - 0.5 K/cumm [facility] Basophil abs 0.0 0.0 - 0.1 K/cumm [facility] Neutrophil pct 61.5 % [facility] Comment: Interpretive Data [...] CDT Libertad Suazo MD LAB BLOOD ORDERABLES [facility] Result [facility] [address] [place] [address] * (ABNORMAL) D-dimer, quantitative (04/13/2019 9:11 AM [...] ORDERABLES Fi nal Result Performing Organization Address [facility] de Phone Number [facility] [address] [place] [address] * Troponin T 5th Gen series (Baseline, 3hr, 6hr) (04/13/2019 9:11 AM CDT) Troponin T, Baseline 5th Gen <6 6 - 14 ng/L [facility] Blood specimen (specimen) 04/13/2019 9:11 AM CDT 04/13/2019 9:21 AM CDT Libertad Suazo MD LAB BLOOD ORDERABLES Fi nal Result Performing Organization Address [facility] de Phone Number [facility] [address] [place] [address] * Protime-INR (04/13/2019 9:11 AM CDT) PT 10.9 9.5 - 13.0 sec [facility] INR 0.93 0.90 - 1.20 [facility] Blood specimen (specimen) 04/13/2019 9:11 AM CDT 04/13/2019 9:20 AM CDT Libertad Suazo MD LAB BLOOD ORDERABLES Fi nal Result Performing Organization Address [facility] de Phone Number [facility] [address] [place] [address] * Comprehensive metabolic panel (04/13/2019 9:11 AM [...] LAB BLOOD ORDERABLES Fi nal Result [facility] [address] [place] [address] * (ABNORMAL) CBC with auto differential (04/13/2019 9:11 AM CDT) WBC 7.6 3.8 - 9.9 K/cumm [facility] Hgb 12.0 11.9 - 15.5 g/dL [facility] Hct 37.3 35.6 - 45.5 % [facility] Plt 322 150 - 400 K/cumm [facility] MPV 9.3 9.1 - 12.3 fL [facility] RBC 4.29 3.90 - 5.20 M/cumm [facility] MCV 86.9 81.3 - 96.4 fL [facility] MCH 28.0 27.1 - 33.3 pg [facility] MCHC 32.2(L) 32.3 - 35.7 g/dL [facility] RDW CV 13.3 11.1 - 14.9 % [facility] RDW SD 42.5 35.7 - 48.1 fL [facility] NRBC abs 0.00 0.00 - 0.01 K/cumm [facility] Blood specimen (specimen) 04/13/2019 9:11 AM CDT 04/13/2019 9:20 AM CDT Libertad Suazo MD LAB BLOOD ORDERABLES Fi nal Result Performing Organization Address [facility] de Phone Number [facility] [address] [place] [address] * ECG 12 lead (04/13/2019 9:00 AM CDT) 04/13/2019 9:00 AM CDT Narrative [facility] - 04/13/2019 3:25 PM CDT Vent Rate: 72 bpm RR Interval: [address] Interval: 174 msec QRS Duration: 88 msec QT Interval: 400 msec QTC Interval: 425 msec P-R-T [place]: 63 - 15 - 35 degrees SINUS RHYTHM POSSIBLE LEFT ATRIAL ENLARGEMENT POSSIBLE RIGHT VENTRICULAR CONDUCTION DELAY BORDERLINE ECG Electronically Signed By: Nathaniel Villatoro MD Yin You MD ECG ORDERABLES Final Result Performing Organization Address [facility] de Phone Number [facility] documented in this encounter Visit Diagnoses [...] RN) documented in this encounter Care Teams Field Care Manager Relationship Specialty Start [place] [address] [address] [facility] [address] [address] PCP - General Family Medicine 02/21/19 documented as of this encounter
--- OUTSIDE RECORDS SUMMARY | 2024-08-10 02:12 | XMS_ITS | Encounter Summary ---
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 60 - 89 mL/min/1.73m2 Mildly to moderately decreased ?45 - 59 mL/min/1.73m2 Moderately to severely decreased ??30 - 44 mL/min/1.73m2 Severely decreased ?15 - 29 mL/min/1.73m2 Kidney Failure ?< 15 ??mL/min/1.73m2 *Relative to young adult level If -[place] multiply value by 1.16. Estimated glomerular filtration [...] NP LAB BLOOD ORDERABLES Final Re sult [facility] [address] [place] [address] * Differential, auto (05/15/2019 10:17 AM CDT) Neutrophil abs 4.3 1.7 - 6.5 K/cumm [facility] Imm gran abs 0.0 0.0 - 0.1 K/cumm [facility] Lymphocyte abs 2.2 0.8 - 3.3 K/cumm [facility] Monocyte abs 0.6 0.2 - 0.8 K/cumm [facility] Eosinophil abs 0.1 0.0 - 0.5 K/cumm [facility] Basophil abs 0.0 0.0 - 0.1 K/cumm [facility] Neutrophil pct 59.9 % [facility] Comment: Interpretive Data Percent cell count reference ranges are not reported, since discordance with absolute values may lead to misinterpretation of CBC data. Current Interpretive Data was last revised on 2017. Imm gran pct 0.4 % [facility] Comment: Interpretive Data Percent cell count reference ranges are not reported, since discordance with absolute values may lead to misinterpretation of CBC data. Current Interpretive Data was last revised on 2017. Lymphocyte pct 30.4 % [facility] Comment: Interpretive Data Percent cell count reference ranges are not reported, since discordance with absolute values may lead to misinterpretation of CBC data. Current Interpretive Data was last revised on 2017. Monocyte pct 7.6 % [facility] Comment: Interpretive Data Percent cell count reference ranges are not reported, since discordance with absolute values may lead to misinterpretation of CBC data. Current Interpretive Data was last revised on 2017. Eosinophil pct 1.3 % [facility] Comment: Interpretive Data Percent cell count reference ranges are not reported, since discordance with absolute values may lead to misinterpretation of CBC data. Current Interpretive Data was last revised on 2017. Basophil pct 0.4 % [facility] Comment: Interpretive Data Percent cell count reference ranges are not reported, since discordance with absolute values may lead to misinterpretation of CBC data. Current Interpretive Data was last revised on 2017. Blood specimen (specimen) 05/15/2019 10:17 AM CDT 05/15/2019 11:30 AM CDT Cassius Ortega NP LAB BLOOD ORDERABLES Final Re sult [facility] [address] [place] [address] * (ABNORMAL) CBC with auto differential (05/15/2019 10:17 AM CDT) WBC 7.2 3.8 - 9.9 K/cumm [facility] Hgb 11.5(L) 11.9 - 15.5 g/dL [facility] Hct 36.1 35.6 - 45.5 % [facility] Plt 328 150 - 400 K/cumm [facility] MPV 9.5 9.1 - 12.3 fL [facility] RBC 4.17 3.90 - 5.20 M/cumm [facility] MCV 86.6 81.3 - 96.4 fL [facility] MCH 27.6 27.1 - 33.3 pg [facility] MCHC 31.9(L) 32.3 - 35.7 g/dL [facility] RDW CV 13.7 11.1 - 14.9 % [facility] RDW SD 43.5 35.7 - 48.1 fL [facility] NRBC abs 0.00 0.00 - 0.01 K/cumm [facility] Blood specimen (specimen) 05/15/2019 10:17 AM CDT 05/15/2019 11:30 AM CDT Cassius Ortega OIL AND GAS RECRUITER LAB [place]LOOD [place] [address] [place] [address] * Comprehensive metabolic panel (05/15/2019 10:17 AM [...] 05/15/2019 11:30 AM CDT us Cassius Ortega OIL AND GAS RECRUITER LAB BLOOD ORDERABLES Final Re sult [facility] [address] [place] [address] * (ABNORMAL) Lipid panel (05/15/2019 10:17 AM [...] CDT 05/15/2019 11:30 AM CDT Cassius Ortega OIL AND GAS RECRUITER LAB BLOOD ORDERABLES Final Re sult Performing Organization Address [facility] de Phone Number [facility] [address] [place] [address] * TSH (05/15/2019 10:17 AM CDT) Thyroid Stimulating Hormone 0.87 0.30 - 4.20 mcIUnit/mL [facility] Blood specimen (specimen) 05/15/2019 10:17 AM CDT 05/15/2019 11:30 AM CDT Cassius Ortega OIL AND GAS RECRUITER LAB BLOOD ORDERABLES Final Re sult Performing Organization Address [facility] de Phone Number [facility] [address] [place] [address] * Hemoglobin A1c (05/15/2019 10:17 AM CDT) Hgb A1C 5.6 4.0 - 5.6 % [facility] Estimated Average Glucose 114 mg/dL [facility] Comment: The ADA recommends reporting an estimated Average Glucose (eAG) with all Hemoglobin A1c results using the equation derived from a study of 507 normal and diabetic adults. ??Minority populations were underrepresented and children were not included. ?? (Diabetes Care 31:7054-0275, 2008). ??The eAG is not equivalent to a fasting glucose. Blood specimen (specimen) 05/15/2019 10:17 AM CDT 05/15/2019 11:30 AM CDT Cassius Ortega NP LAB BLOOD ORDERABLES Final Re sult Performing Organization Address City/State/[facility] Co de Phone Number [facility] [address] [place] [address] documented in this encounter Visit Diagnoses Diagnosis Annual physical exam Routine general medical examination at a health care facility Hypothyroidism, unspecified type Essential hypertension Unspecified essential hypertension documented in this encounter Care Teams Air Tool Operator Relationship Specialty [place] [address] [address] [facility] [address] [address] PCP - General Family Medicine 02/21/19 documented as of this encounter
--- OUTSIDE RECORDS SUMMARY | 2024-08-10 02:12 | XMS_ITS | Encounter Summary ---
Author Organization [facility] Healthcare Address [address] [place] [address] Care Team Providers Care Filling Mixer Name Role Phone Brittani Agosto MD Primary Care Provider [phone] Encounter Details Date Type Department Care Team (Late st Contact Info) Description 02/25/2017 10:31 AM CDT - 02/25/2017 2:11 PM CDT Hospital Encounter [facility] GI Lab [address] [place] [address] [place] [address] [address] Discharge Disposition: Discharge to home or self care Social History Tobacco Use Types Packs/Day Years Used Date Smoking Tobacco: Never Smokeless Tobacco: Never Alcohol Use Standard Drinks/Week Comments Yes 0 (1 standard drink = 0.6 oz pur e alcohol) Comments No Sex and Gender Information Value Date Recorded Sex Assigned at Not on file 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 Patient Type: CH SDS [...] ??Report Electronically Reviewed and Signed Out By ??Raphael Bradley M.D. ??03/01/2017 11:46:30 Specimen(s) Received: A: [...] determined by the Surgical Pathology Department at [facility] as part of an ongoing business quality assurance analyst program and in compliance with federally mandated [...] characteristics determined by the Surgical Pathology Department [facility]. ??It has not been cleared or approved [...] on filedocumented in this encounter Care Teams Filling Mixer Relationship Specialty [place] [address] [address] [place] [id number] PCP - General 12/22/16 03/14/17 documented as of this encounter
--- OUTSIDE RECORDS SUMMARY | 2024-08-10 02:12 | XMS_ITS | Encounter Summary ---
Author Organization [facility] Medical Group Address [address] [place] [address] Care Team Providers Care Grocery Store Clerk Name Role Phone Brittani Agosto MD Primary Care Provider [phone] Encounter Details Date Type Department Care Team (Late st Contact Info) Description 08/11/2018 Orders Only [facility] Medical Group Orthopedics and Sports Medicine [address] [place] [phone] Cuate Mcmullen MD [address] [place] [address] [address] [place] [address] Incomplete tear of right rotator cuff (Primary [...] on file 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
--- OUTSIDE RECORDS SUMMARY | 2024-08-10 02:12 | XMS_ITS | Encounter Summary ---
Author Organization [facility] Medical Group Address [address] [facility] [place]note 2] [address] [place] [address] Care Team Providers Care Patent Prosecution Paralegal Name Role Phone Kelly Olson NP Primary Care Provider + [phone] Reason for Visit * Reason Onset Date Comments Whitney- Appt Request 08/24/2017 Encounter Details Date Type Department Care Team (Late st Contact Info) Description 08/24/[address] 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 RAM MANAGER * Telephone Encounter - Lindsay Murguia - 08/24/2017 9:53 AM CST To Lorri RAM MANAGER * Telephone Encounter - Kendra Sloan - 08/24/2017 9:33 AM CST Patient called with anxiety concerns and attempted to schedule but states she needs to be seen sooner than first available in October and would like call back to further discuss if a sooner appt could be accommodated. Please advise. RAM MANAGER documented in this encounter Plan of Treatment Not on file documented as of this encounter Visit Diagnoses Not on filedocumented in this encounter Care Teams Patent Prosecution Paralegal Relationship Specialty [place] [address] [address] PCP - General 03/15/17 06/20/18 documented as of this encounter
--- OUTSIDE RECORDS SUMMARY | 2024-08-10 02:12 | XMS_ITS | Encounter Summary ---
Author Organization [facility] Medical [facility] Address [address] [address] Care Team Providers Care Air Traffic Instructor Name Role Phone Brittani Agosto MD Primary Care Provider [phone] Reason for Visit * Reason Comments Pain Encounter Details Date Type Department Care Team (Latest Contact Info) Description 07/08/2018 8:30 AM HOT BOX CHECKER Office Visit [facility] Orthopedics and Sports Medicine [address] [place] [phone] Cuate Mcmullen MD [address] [place] [address] [address]ES [address] [address] Incomplete tear of right rotator cuff (Primary [...] on file Legal Sex Female 1:09 AM HOT BOX CHECKER Gender Identity Not on file Sexual Orientation Not on file 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 documented as of this encounter Last Filed Vital Signs Vital Sign Reading Time Taken Comments Blood Pressure 119/75 07/08/2018 8:51 AM HOT BOX CHECKER Pulse 65 07/08/2018 8:51 AM HOT BOX CHECKER Temperature - - Respiratory Rate - - Oxygen Saturation - - Inhaled Oxygen Concentration - - Weight 92.1 kg (203 lb) 07/08/2018 8:51 AM HOT BOX CHECKER Height 165.1 cm (5' 5 ) 07/08/2018 8:51 AM HOT BOX CHECKER Body Mass Index 33.78 07/08/2018 8:51 AM HOT BOX CHECKER documented in this encounter Progress Notes * [...] positive Hawkin's test: positive Impingement signs: positive Maiclo's: positive Speed's: positive Left shoulder The patient [...] in the office today. TARIK Strong MD BOX CHECKER documented in this encounter Plan of [...] 05/15/2019 added in this encounter Care Teams Air Traffic Instructor Relationship Specialty Start [place] [address] [place] [address] PCP - General Family Medicine 06/21/18 02/19/19 documented as of this encounter
--- OUTSIDE RECORDS SUMMARY | 2024-08-10 02:12 | XMS_ITS | Encounter Summary ---
Author Organization [facility] Medical Group Address [address] [facility] [address] [place] [address] Care Team Providers Care Lease Buyer Name Role Phone Kelly Olson NP Primary Care Provider [phone] Encounter Details Date Type Department Care Team (Late st Contact Info) Description 01/19/2018 Telephone [facility] [address] [facility] [address] [place] [address] Jennifer Zazueta MD [id number] [place] [address] [address] [place] [address] Social History Tobacco Use Types Packs/Day Years Used Date Smoking Tobacco: Never Smokeless Tobacco: Never Alcohol Use Standard Drinks/Week Comments Yes 0 (1 standard drink = 0.6 oz pur e alcohol) Comments No Sex and Gender Information Value Date Recorded Sex Assigned at Not on file 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
--- OUTSIDE RECORDS SUMMARY | 2024-08-10 02:12 | XMS_ITS | Encounter Summary ---
Author Organization [facility] Healthcare Address [address] [place] [address] Care Team Providers Care Vp Digital Marketing Social Media And Crm Name Role Phone Cassius Ortega NP Primary Care Provider [phone] Reason for Referral * Diagnostic Imaging (Routine) - Closed Specialty Diagnoses / Procedures Referred By Cara alvarez Referred To Contact Diagnoses Screening mammogram, encounter for Annual physical exam Hypothyroidism, unspecified type Essential hypertension Procedures Screening Mammogram Bilateral W Cassius Palmer NP Phone: tel: fax: [address] [address] Referral ID Status Reason Start Date Expiration Date Visits Re quested Visits Authorized [id number] Closed 05/15/2019 11/23/2020 1 1 Reason for Visit * Diagnostic Imaging (Routine) - Closed Specialty Diagnoses / Procedures Referred By Cara alvarez Referred To Contact Diagnoses Screening mammogram, encounter for Annual physical exam Hypothyroidism, unspecified type Essential hypertension Procedures Screening Mammogram Bilateral W Cassius Palmer NP Phone: tel: fax: [address] [address] Referral ID Status Reason Start Date Expiration Date Visits Re quested Visits Authorized [id number] Closed 05/15/2019 11/23/2020 1 1 Encounter Details Date Type Department Care Team (Latest Contact Info) Description 05/15/2019 11:19 AM CDT - 05/15/2019 11:59 PM CDT Hospital Encounter [facility] [address] [place] [phone] [place] [address] [id number] [place] [address] [facility] [address] [address] Screening mammogram, encounter for; Annual [...] on file 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
--- OUTSIDE RECORDS SUMMARY | 2024-08-10 02:12 | XMS_ITS | Encounter Summary ---
Author Organization [facility] Medical Group Address [address] [address] Care Team Providers Care Fig Washer Name Role Phone Brittani Agosto MD Primary Care Provider [phone] Encounter Details Date Type Department Care Team (Late st Contact Info) Description 08/10/2018 Orders Only [facility] Orthopedics and Sports Medicine [address] [place] [phone] Nolan Bernard PA [address] [place] [address] [address] [place] [address] Social History Tobacco Use Types Packs/Day Years Used Date Smoking Tobacco: Never Smokeless Tobacco: Never Alcohol Use Standard Drinks/Week Comments Yes 0 (1 standard drink = 0.6 oz pur e alcohol) Comments No Sex and Gender Information Value Date Recorded Sex Assigned at Not on file 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
--- OUTSIDE RECORDS SUMMARY | 2024-08-10 02:12 | XMS_ITS | Encounter Summary ---
Author Organization [facility] Medical Group Address [address] [facility] [address] [place] [address] Care Team Providers Care Wellness Trainer Name Role Phone Brittani Agosto MD Primary Care Provider [phone] Reason for Visit * Reason Onset Date Comments Appt for med refill. 09/06/2018 Encounter Details Date Type Department Care Team (Late st Contact Info) Description 09/06/2018 Telephone [facility] [address] [place] [address] Wilma Soriano MA Appt for med refill. 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 30 tablet 09/06/2018 9 documented in this encounter Miscellaneous Notes * Telephone Encounter - Wilma Soriano MA - 09/06/2018 9:03 AM CST Called patient, lmom informed Rx's sent. tg ICULTURAL MANAGER * Telephone Encounter - Brittani Agosto MD - 09/06/2018 8:48 AM HORTICULTURAL MANAGER Rx's sent ICULTURAL MANAGER * Telephone Encounter - Wilma Soriano MA - 09/06/2018 8:19 AM CST Called patient, she stated that she would make an appointment. Patient stated that she needs Levothyroxine refilled as well. Patient is scheduled to see Dr. Oconnell on Wednesday09/23/2018 @ 8:00 am. tg ICULTURAL MANAGER documented in this encounter Plan of Treatment Not on file documented as of this encounter Visit Diagnoses Not on filedocumented in this encounter Discontinued Medications Medication Sig Discontinue Reason Start Date End Da te levothyroxine (SYNTHROID, LEVOTHROID) 150 mcg tablet TAKE 1 TABLET BY MOUTH EVERY DAY 03/26/2017 12/18/2017 levothyroxine (SYNTHROID, LEVOTHROID) 150 mcg tablet Take 150 mcg by mouth hospice entrance attendant before breakfast. Reorder 09/06/2018 citalopram (CeleXA) 40 mg tablet Take 1 tablet (40 mg total) by mouth daily. Reorder 09/09/2017 09/06/2018 documented as of this encounter Care Teams Wellness Trainer Relationship Specialty [place] [id number] [address] PCP - General Family Medicine 06/21/18 02/19/19 documented as of this encounter
--- OUTSIDE RECORDS SUMMARY | 2024-08-10 02:12 | XMS_ITS | Encounter Summary ---
Author Organization [facility] Address [address] [facility] [address] [place] [address] Care Team Providers Care Fur Comber Name Role Phone Brittani Agosto MD Primary Care Provider [phone] Reason for Referral * Diagnostic Imaging (Routine) - Closed Specialty Diagnoses / Procedures Referred By Cara alvarez Referred To Contact Radiology Diagnoses Acute pain of right shoulder Rotator cuff insufficiency of right shoulder Procedures MRI Shoulder Right WO Contrast Nolan Bernard PA Phone: tel: fax: [address] [address] Referral ID Status Reason Start Date Expiration Date Visits Re quested Visits Authorized [id number] Closed 06/21/2018 12/31/2019 1 1 FORM WORKER Reason for Visit * Reason Comments Follow-up Encounter Details Date Type Department Care Team (Late st Contact Info) Description 06/21/2018 3:00 PM PLATFORM WORKER Office Visit [facility] Orthopedics and Sports Medicine [address] 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 documented as of this encounter Last Filed Vital Signs Vital Sign Reading Time Taken Comments Blood Pressure 124/69 06/21/2018 3:40 PM PLATFORM WORKER Pulse 67 06/21/2018 3:40 PM PLATFORM WORKER Temperature - - Respiratory Rate - - Oxygen Saturation - - Inhaled Oxygen Concentration - - Weight 98 kg (216 lb) 06/21/2018 3:40 PM PLATFORM WORKER Height 160 cm (5' 3 ) 06/21/2018 3:40 PM PLATFORM WORKER Body Mass Index 38.26 06/21/2018 3:40 PM PLATFORM WORKER documented in this encounter Progress Notes * [...] Cuate Mcmullen MD at 06/27/2018 9:05 PM PLATFORM WORKER FORM WORKER FORM WORKER documented in this encounter Plan of Treatment Not on file documented as of this encounter Results * MRI Shoulder Right WO Contrast (07/04/2018 7:24 PM PLATFORM WORKER) Anatomical Region Laterality Modality Upper Extremities Right Magnetic Reson ance 07/04/2018 8:56 PM PLATFORM WORKER Impressions 07/04/2018 8:57 PM PLATFORM WORKER 1. ??Tendinosis or partial tear of the supraspinatus tendon. 2. ??Osteoarthrosis of the acromioclavicular joint. Electronically signed by: Jani Guevara M.D. Narrative 07/04/2018 8:57 PM PLATFORM WORKER EXAM: Right shoulder MRI HISTORY: Pain in [...] extremity documented in this encounter Care Teams Fur Comber Relationship Specialty [place] [address] [address] [place] [id number] PCP - General Family Medicine 06/21/18 02/19/19 documented as of this encounter
--- OUTSIDE RECORDS SUMMARY | 2024-08-10 02:12 | XMS_ITS | Encounter Summary ---
Author Organization [facility] Healthcare Address [address] [place] [address] Care Team Providers Care Sewer Line Repairer Name Role Phone Kelly Olson NP Primary Care Provider [phone]- [phone] Encounter Details Date Type Department Care Team (Late st Contact Info) Description 09/27/2017 1:45 PM EXPERIMENTAL ROCKET SLED MECHANIC Lab [place] [id number] [place] [address] Brittani Agosto MD [id number] [place] [address] [place] [address] [place] [address] Well female exam with routine gynecological exam; [...] on file Legal Sex Female 1:09 AM EXPERIMENTAL ROCKET SLED MECHANIC Gender Identity Not on file Sexual [...] Diagnosis Comments EGFR Routine 09/27/2017 1:40 PM EXPERIMENTAL ROCKET SLED MECHANIC Well female exam with routine gynecological exam DIFFERENTIAL AUTO Routine 09/27/2017 1:4 0 PM EXPERIMENTAL ROCKET SLED MECHANIC Well female exam with routine gynecological exam HSV 1 AND 2 ANTIBODIES, IGG, IGM Routine 09/27/2017 1:40 PM EXPERIMENTAL ROCKET SLED MECHANIC Well female exam with routine gynecological exam HIV 1/2 ANTIBODY PLUS P24 ANTIGEN Routine 09/27/2017 1:40 PM EXPERIMENTAL ROCKET SLED MECHANIC Well female exam with routine gynecological exam CBC WITH AUTO DIFFERENTIAL Routine 09/27/2017 1:40 PM EXPERIMENTAL ROCKET SLED MECHANIC Well female exam with routine gynecological exam RPR Routine 09/27/2017 1:40 PM EXPERIMENTAL ROCKET SLED MECHANIC Well female exam with routine gynecological exam TSH Routine 09/27/2017 1:40 PM EXPERIMENTAL ROCKET SLED MECHANIC Well female exam with routine gynecological exam Hypothyroidism, unspecified type LIPID PANEL Routine 09/27/2017 1:40 PM EXPERIMENTAL ROCKET SLED MECHANIC Well female exam with routine gynecological exam COMPREHENSIVE METABOLIC PANEL Routine 09/27/2017 1:40 PM EXPERIMENTAL ROCKET SLED MECHANIC Well female exam with routine gynecological exam DISCHARGE LABORATORY CUMULATIVE REPORT 09/27/2017 12:00 AM EXPERIMENTAL ROCKET SLED MECHANIC documented in this encounter Results * eGFR (09/27/2017 1:40 PM EXPERIMENTAL ROCKET SLED MECHANIC) [facility] eGFR 91 mL/min/1.7 3 m2 [facility] FLRO Comment: Interpretive Data Reference Interval Normal ?>/= 90 mL/min/1.73m2 Mildly decreased* ? 60 - 89 mL/min/1.73m2 Mildly to moderately decreased ?45 - 59 mL/min/1.73m2 Moderately to severely decreased ??30 - 44 mL/min/1.73m2 Severely decreased ?15 - 29 mL/min/1.73m2 Kidney Failure ?< 15 ??mL/min/1.73m2 *Relative to young adult level If -[place] multiply value by 1.16. Estimated glomerular filtration [...] 2016. Blood specimen (specimen) 09/27/2017 1:40 PM EXPERIMENTAL ROCKET SLED MECHANIC 09/27/2017 3:02 PM EXPERIMENTAL ROCKET SLED MECHANIC Narrative [facility] - 09/27/2017 3:32 PM EXPERIMENTAL ROCKET SLED MECHANIC us Kelly Olson SALES FLOOR MANAGER LAB BLOOD ORDERABLES Final Result [facility] [address] [address] [place] [address] * (ABNORMAL) Differential, auto (09/27/2017 1:40 PM EXPERIMENTAL ROCKET SLED MECHANIC) Neutrophil pct 65.7 % [facility] Imm [...] Basophil abs 0.05 0.00 - 0.10 K/cumm [facility] Blood specimen (specimen) 09/27/2017 1:40 PM EXPERIMENTAL ROCKET SLED MECHANIC 09/27/2017 2:54 PM EXPERIMENTAL ROCKET SLED MECHANIC Narrative [facility] - 09/27/2017 3:30 PM EXPERIMENTAL ROCKET SLED MECHANIC Kelly Olson NP LAB BLOOD ORDERABLES Final Result Performing Organization Address [facility] Co de Phone Number ED[facility] FLOR [address] [address] [facility] [place] [address] * RPR, serum (09/27/2017 1:40 PM EXPERIMENTAL ROCKET SLED MECHANIC) Pathologist [facility] RPR Non-Reactiv e Non-Reactiv e [facility] Blood specimen (specimen) 09/27/2017 1:40 PM EXPERIMENTAL ROCKET SLED MECHANIC 09/27/2017 2:54 PM EXPERIMENTAL ROCKET SLED MECHANIC Narrative [facility] - 09/28/2017 12:06 PM EXPERIMENTAL ROCKET SLED MECHANIC Kelly Olson NP LAB MICROBIOLOGY - GENERAL ORDERABLES Final Result Performing Organization Address [facility] de Phone Number EDGAR [address] [address] [facility] [employer] [address] * HSV 1 and 2 antibodies IgG, IgM (09/27/2017 1:40 PM EXPERIMENTAL ROCKET SLED MECHANIC) Pathologist [facility] HSV 1 IgG Positive Negative [facility] HSV 2 IgG Negative Negative [facility] HSV 1/2 IgM Negative Negative [facility] Comment: ADDITIONAL INFORMATION This test has been modified from the netezza developer's instructions. Its performance characteristics were determined by [facility] in a manner consistent with CLIA requirements. This test has not been cleared or approved by the U.S. Food and Drug Administration. Test Performed by: [facility] - [address] [address] Blood specimen (specimen) 09/27/2017 1:40 PM EXPERIMENTAL ROCKET SLED MECHANIC 09/27/2017 2:54 PM EXPERIMENTAL ROCKET SLED MECHANIC Narrative [facility] - 09/29/2017 7:12 PM EXPERIMENTAL ROCKET SLED MECHANIC Kelly Olson NP LAB MICROBIOLOGY - GENERAL ORDERABLES Final Result Performing Organization Address [facility] de Phone Number [facility] [address] [address] [facility] [place] [address] * HIV-1 and HIV-2 antibody with P24 antigen immunoassay (09/27/2017 1:40 PM EXPERIMENTAL ROCKET SLED MECHANIC) [facility] HIV 1/2 ab + p24 ag Nonreactive [facility] Blood specimen (specimen) 09/27/2017 1:40 PM EXPERIMENTAL ROCKET SLED MECHANIC 09/27/2017 2:54 PM EXPERIMENTAL ROCKET SLED MECHANIC Narrative [facility] - 09/27/2017 4:17 PM EXPERIMENTAL ROCKET SLED MECHANIC Kelly Olson NP LAB MICROBIOLOGY - GENERAL ORDERABLES Final Result Performing Organization Address [facility] Phone Number [facility] [address] [address] Department [place] [place] [address] * (ABNORMAL) Lipid panel (09/27/2017 1:40 PM EXPERIMENTAL ROCKET SLED MECHANIC) [facility] Cholesterol 255(H) 100 - 200 mg/dL [facility] Comment: Interpretive Data Desirable: ?<200 mg/dL Borderline high: ??200-239 mg/dL High: ? >240 mg/dL Current interpretive data was last revised on 2016. Triglycerides 170(H) 10 - 150 mg/dL [facility] Comment: Interpretive Data Desirable: ? < 150 ? mg/dL Borderline High: ? 150 - 199 mg/dL High: ?200 - 499 mg/dL Very High: ? > or = 499 ??mg/dL Current interpretive data was last revised on 2016. HDL 51 40 - 59 mg/dL [facility] Comment: Interpretive Data Less than 40 [...] 2016. Blood specimen (specimen) 09/27/2017 1:40 PM EXPERIMENTAL ROCKET SLED MECHANIC 09/27/2017 2:54 PM EXPERIMENTAL ROCKET SLED MECHANIC Narrative [facility] - 09/27/2017 3:32 PM EXPERIMENTAL ROCKET SLED MECHANIC Kelly Olson NP LAB BLOOD ORDERABLES Final Result Performing Organization Address [facility] Co de Phone Number [place] [address] [address] [employer] [place] [address] * TSH (09/27/2017 1:40 PM EXPERIMENTAL ROCKET SLED MECHANIC) Thyroid Stimulating Hormone 2.36 0.45 - 5.33 mcIUnit/mL [facility] Blood specimen (specimen) 09/27/2017 1:40 PM EXPERIMENTAL ROCKET SLED MECHANIC 09/27/2017 2:54 PM EXPERIMENTAL ROCKET SLED MECHANIC Narrative [facility] - 09/27/2017 3:37 PM EXPERIMENTAL ROCKET SLED MECHANIC Klely Olson NP LAB BLOOD ORDERABLES Final Result Performing Organization Address City/[facility] Co de Phone Number [place] [address] [address] Department [employer] [address] * (ABNORMAL) Comprehensive metabolic panel (09/27/2017 1:40 PM EXPERIMENTAL ROCKET SLED MECHANIC) Sodium 134(L) 135 - 145 mmol/L [facility] [...] CH Blood specimen (specimen) 09/27/2017 1:40 PM EXPERIMENTAL ROCKET SLED MECHANIC 09/27/2017 2:54 PM EXPERIMENTAL ROCKET SLED MECHANIC Narrative [facility] - 09/27/2017 3:32 PM EXPERIMENTAL ROCKET SLED MECHANIC us Kelly Olson NP LAB BLOOD ORDERABLES Final Result [facility] [address] [address] Department [place] [address] * (ABNORMAL) CBC with auto differential (09/27/2017 1:40 PM EXPERIMENTAL ROCKET SLED MECHANIC) WBC 11.71(H) 3.80 - 9.90 K/cumm [facility] RBC 4.23 3.90 - 5.20 M/cumm [facility] Hgb 12.2 11.9 - 15.5 g/dL [facility] Hct 37.2 35.6 - 45.5 % [facility] MCV 87.9 81.3 - 96.4 fL [facility] MCH 28.8 27.1 - 33.3 pg [facility] MCHC 32.8 32.3 - 35.7 g/dL [facility] RDW CV 14.0 11.1 - 14.9 % [facility] RDW SD 45.3 35.7 - 48.1 fL [facility] CH Plt 316 150 - 400 K/cumm [facility] MPV 9.3 9.1 - 12.3 fL [facility] NRBC abs 0.00 0.00 - 0.01 K/cumm [facility] Blood specimen (specimen) 09/27/2017 1:40 PM EXPERIMENTAL ROCKET SLED MECHANIC 09/27/2017 2:54 PM EXPERIMENTAL ROCKET SLED MECHANIC Narrative [facility] - 09/27/2017 3:30 PM EXPERIMENTAL ROCKET SLED MECHANIC Kelly Olson NP LAB BLOOD ORDERABLES Final Result [facility] [address] [address] Department [place] [address] * DISCHARGE LABORATORY CUMULATIVE REPORT (09/27/2017 12:00 AM EXPERIMENTAL ROCKET SLED MECHANIC) Narrative 09/27/2017 12:00 AM EXPERIMENTAL ROCKET SLED MECHANIC Ordered by an unspecified provider. Historical Provider LAB BLOOD ORDERABLES Tahira l Result documented in this encounter Visit Diagnoses Diagnosis Well female exam with routine gynecological exam Routine gynecological examination Hypothyroidism, unspecified type documented in this encounter Care Teams Sewer Line Repairer Relationship Specialty Start Date End Date Kelly Olson, NAWAF [address] [address] PCP - General 03/15/17 06/20/18 documented as of this encounter
--- OUTSIDE RECORDS SUMMARY | 2024-08-10 02:12 | XMS_ITS | Encounter Summary ---
Author Organization [facility] Medical Group Address [address] [facility] [address] [place] [address] Care Team Providers Care Patient Svcs Mgr Name Role Phone Kelly Olson NP Primary Care Provider [phone]- [phone] Reason for Referral * Diagnostic Imaging (Routine) - Closed Specialty Diagnoses / Procedures Referred By Contac t Referred To Contact Diagnoses Right upper quadrant abdominal pain Procedures US RUQ Jennifer Zazueta MD Phone: tel: fax: [facility] [id number] [place] [phone] Referral ID Status Reason Start Date Expiration Date Visits Re quested Visits Authorized [id number] Closed 01/19/2018 07/31/2019 1 1 Reason for Visit * Reason Comments Epigastric Pain Bloated Encounter Details Date Type Department Care Team (Late st Contact Info) Description 01/19/2018 11:30 AM CDT Office Visit [facility] [address] [facility] [address] [place] [address] Jennifer Zazueta MD [address] [place] [address] [address] [place] [address] Bloating (Primary Dx); Right upper quadrant abdominal pain Social History Tobacco Use Types Packs/Day Years Used Date Smoking Tobacco: Never Smokeless Tobacco: Never Alcohol Use Standard Drinks/Week Comments Yes 0 (1 standard drink = 0.6 oz pur e alcohol) Comments No Sex and Gender Information Value Date Recorded Sex Assigned at Not on file Legal Sex Female 1:09 AM CIVIL RIGHTS INVESTIGATOR Gender Identity Not on file Sexual [...] refuse treatment. The above information is an teacher aide only. It is not intended as [...] the copyrighted property of [employer] or [employer]. documented in this encounter Progress Notes * Jennifer Zazueta MD - 01/19/2018 11:30 AM CDT Images from the original note were not included. [facility] Gastroenterology Subjective/Objective Patient ID: [id number] [...] CDT) WBC 7.4 3.8 - 9.9 K/cumm [facility] RBC 3.87(L) 3.90 - 5.20 M/cumm [facility] Hgb 11.2(L) 11.9 - 15.5 g/dL [facility] Hct 35.0(L) 35.6 - 45.5 % [facility] MCV 90.4 81.3 - 96.4 fL [facility] MCH 28.9 27.1 - 33.3 pg [facility] MCHC 32.0(L) 32.3 - 35.7 g/dL [facility] RDW CV 13.4 11.1 - 14.9 % [facility] RDW SD 44.3 35.7 - 48.1 fL [facility] Plt 248 150 - 400 K/cumm [facility] MPV 9.2 9.1 - 12.3 fL [facility] NRBC abs 0.00 0.00 - 0.01 K/cumm [facility] Blood specimen (specimen) 01/20/2018 9:37 AM CDT 01/20/2018 10:14 AM CDT Narrative [facility] - 01/20/2018 10:37 AM CDT Jennifer Zazueta MD LAB BLOOD ORDERABLES [facility] Result Performing Organization Address [facility] Co de Phone Number [facility] [place] [address] [address] [facility] [place] [address] * Hepatic function panel (01/20/2018 9:37 AM [...] CDT Jennifer Zazueta MD LAB BLOOD ORDERABLES [facility] Result Performing Organization Address [facility] de Phone Number [place] [address] [address] [facility] [place] [address] * US RUQ (01/20/2018 9:35 AM CDT) [...] mcg tablet Take 150 mcg by mouth apprentice architect before breakfast. 09/06/2018 added in this encounter Care Teams Patient Svcs Mgr Relationship Specialty [place] [address] [facility] [address] [place] [address] PCP - General 03/15/17 06/20/18 documented as of this encounter
--- OUTSIDE RECORDS SUMMARY | 2024-08-10 02:12 | XMS_ITS | Encounter Summary ---
Author Organization [facility] Medical Group Address [address] [facility] [address] [place] [address] Care Team Providers Care Kiln Tester Name Role Phone Kelly Olson NP Primary Care Provider [phone]- [phone] Encounter Details Date Type Department Care Team (Late st Contact Info) Description 01/26/2018 Telephone [facility] [address] [facility] [address] [place] [address] Angelique Zazueta [place] [id number] [place] [address] [address] [place] [address] Social History Tobacco Use Types Packs/Day Years Used Date Smoking Tobacco: Never Smokeless Tobacco: Never Alcohol Use Standard Drinks/Week Comments Yes 0 (1 standard drink = 0.6 oz pur e alcohol) Comments No Sex and Gender Information Value Date Recorded Sex Assigned at Not on file Legal Sex Female 1:09 AM ELECTION ASSISTANT Gender Identity Not on file Sexual [...] accepted: Orders * Telephone Encounter - Angelique Zazueta MD - 01/26/2018 1:53 PM CDT I'll [...] on filedocumented in this encounter Care Teams Kiln Tester Relationship Specialty [place] [address] [address] PCP - General 03/15/17 06/20/18 documented as of this encounter
--- OUTSIDE RECORDS SUMMARY | 2024-08-10 02:12 | XMS_ITS | Encounter Summary ---
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
--- OUTSIDE RECORDS SUMMARY | 2024-08-10 02:12 | XMS_ITS | Encounter Summary ---
Author Organization [facility] Medical Group Address [address] [facility] [address] [place] [address] Care Team Providers Care Family Protection Specialist Name Role Phone Brittani Agosto MD Primary Care Provider [phone] Reason for Visit * Reason Onset Date Comments cancel surgery 08/16/2018 Encounter Details Date Type Department Care Team (Late st Contact Info) Description 08/16/2018 Telephone [facility] Medical [facility] Orthopedics and Sports Medicine [address] [facility] [address] [place] [address] Cuate Mcmullen MD [address] [place] [address] [address] [facility] [address] [place] [address] cancel surgery Social History Tobacco Use Types Packs/Day Years Used Date Smoking Tobacco: Never Smokeless Tobacco: Never Alcohol Use Standard Drinks/Week Comments Yes 0 (1 standard drink = 0.6 oz pur e alcohol) Comments No Sex and Gender Information Value Date Recorded Sex Assigned at Not on file Legal Sex Female 1:09 AM WINDOWS INFRASTRUCTURE ENGINEER Gender Identity Not on file Sexual Orientation Not on file 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 Will call us back later in year to re-schedule. Called Kelly in OR scheduling and cancelled. Sent cancel to [facility] OWS INFRASTRUCTURE ENGINEER documented in this encounter Plan of Treatment Not on file documented as of this encounter Visit Diagnoses Not on filedocumented in this encounter Care Teams Family Protection Specialist Relationship Specialty [place] [address] [address] PCP - General Family Medicine 06/21/18 02/19/19 documented as of this encounter
--- OUTSIDE RECORDS SUMMARY | 2024-08-10 02:12 | XMS_ITS | Encounter Summary ---
Author Organization [facility] Medical Group Address [address] [facility] [address] [place] [address] Care Team Providers Care Human Resources Trainee Name Role Phone Kelly Olson NP Primary Care Provider [phone] Encounter Details Date Type Department Care Team (Late st Contact Info) Description 01/21/2018 Telephone [facility] [address] [facility] [address] [place] [address] Jennifer [place]azueta [place] [id number] [place] [address] [address] [place] [address] Social History Tobacco Use Types Packs/Day Years Used Date Smoking Tobacco: Never Smokeless Tobacco: Never Alcohol Use Standard Drinks/Week Comments Yes 0 (1 standard drink = 0.6 oz pur e alcohol) Comments No Sex and Gender Information Value Date Recorded Sex Assigned at Not on file Legal Sex Female 1:09 AM JIGGER CROWN POUNCING MACHINE OPERATOR Gender Identity Not on file [...] test,if you have any questions please call [phone] opt 2 or the pt can call [...] on filedocumented in this encounter Care Teams Human Resources Trainee Relationship Specialty [place] [address] [address] PCP - General 03/15/17 06/20/18 documented as of this encounter
--- OUTSIDE RECORDS SUMMARY | 2024-08-10 02:12 | XMS_ITS | Encounter Summary ---
Author Organization [facility] Medical Group Address [address] [facility] [address] [place] [address] Care Team Providers Care Custom Protection Officer Name Role Phone Kelly Olson NP Primary Care Provider [phone]- [phone] Encounter Details Date Type Department Care Team (Late st Contact Info) Description 01/24/2018 Orders Only [facility] [address] [facility] [address] [place] [address] [place] [address] [facility] [address] [place] [address] Right upper quadrant pain (Primary Dx) Social History Tobacco Use Types Packs/Day Years Used Date Smoking Tobacco: Never Smokeless Tobacco: Never Alcohol Use Standard Drinks/Week Comments Yes 0 (1 standard drink = 0.6 oz pur e alcohol) Comments No Sex and Gender Information Value Date Recorded Sex Assigned at Not on file Legal Sex Female 1:09 AM REVIEW CONSULTANT Gender Identity Not on file Sexual [...] quadrant documented in this encounter Care Teams Custom Protection Officer Relationship Specialty [place] [address] [place] [address] PCP - General 03/15/17 06/20/18 documented as of this encounter
--- OUTSIDE RECORDS SUMMARY | 2024-08-10 02:12 | XMS_ITS | Encounter Summary ---
Author Organization [facility] Medical Group Address [address] [facility] [address] [place] [address] Care Team Providers Care Windows 7 Deployment Lead Name Role Phone Cassius Ortega NP Primary Care Provider [phone] Reason for Referral * Diagnostic Imaging (Routine) - Closed Specialty Diagnoses / Procedures Referred By Cara alavrez Referred To Contact Diagnoses Screening mammogram, encounter for Annual physical exam Hypothyroidism, unspecified type Essential hypertension Procedures Screening Mammogram Bilateral W Cassius Palmer NP Phone: tel: fax: [address] [address] Referral ID Status Reason Start Date Expiration Date Visits Re quested Visits Authorized [id number] Closed 05/15/2019 11/23/2020 1 1 Reason for Visit * Reason Comments Preventative Care physical exam Encounter Details Date Type Department Care Team (Late st Contact Info) Description 05/15/2019 9:30 AM CDT Office Visit Family Care at [address] [address] Cassius Ortega NP [address] [place] [address] [address] [place] [address] Annual physical exam (Primary Dx); Screening mammogram, [...] on file Legal Sex Female 1:09 AM PHYSICAL THER Gender Identity Not on file Sexual Orientation [...] this encounter Progress Notes * Cassius Ortega, RESEARCH BIOSTATISTICIAN - 05/15/2019 9:30 AM CDT Subjective/Objective Patient [...] children were not included. ?? (Diabetes Care 31:4798-6435, 2007). ??The eAG is not equivalent to a fasting glucose. Blood specimen (specimen) 05/15/2019 10:17 AM CDT 05/15/2019 11:30 AM CDT Cassius Ortega RESEARCH BIOSTATISTICIAN LAB BLOOD ORDERABLES Final Re sult Performing Organization Address [facility] de Phone Number [facility] [address] [place] [address] * TSH (05/15/2019 10:17 AM CDT) Thyroid Stimulating Hormone 0.87 0.30 - 4.20 mcIUnit/mL [facility] Blood specimen (specimen) 05/15/2019 10:17 AM CDT 05/15/2019 11:30 AM CDT Cassius Ortega RESEARCH BIOSTATISTICIAN LAB BLOOD ORDERABLES Final Re sult Performing Organization Address [facility] de Phone Number [facility] [address] [place] [address] * (ABNORMAL) Lipid panel (05/15/2019 10:17 AM [...] 05/15/2019 11:30 AM CDT us Cassius Ortega RESEARCH BIOSTATISTICIAN LAB BLOOD ORDERABLES Final Re sult [facility] [address] [place] [address] * Comprehensive metabolic panel (05/15/2019 10:17 AM [...] LAB BLOOD ORDERABLES Final Re sult [facility] [address] [place] [address] * (ABNORMAL) CBC with auto differential (05/15/2019 [...] [facility] MCHC 31.9(L) 32.3 - 35.7 g/dL [facility] RDW CV 13.7 11.1 - 14.9 % [facility] RDW SD 43.5 35.7 - 48.1 fL [facility] NRBC abs 0.00 0.00 - 0.01 K/cumm [facility] Blood specimen (specimen) 05/15/2019 10:17 AM CDT 05/15/2019 11:30 AM CDT Cassius Ortega NP LAB BLOOD ORDERABLES Final Re sult [facility] [address] [place] [address] documented in this encounter Visit Diagnoses Diagnosis [...] 04/22/2020 added in this encounter Care Teams Windows 7 Deployment Lead Relationship Specialty [place] [address] [address] [place] [address] PCP - General Family Medicine 02/21/19 documented as of this encounter
--- OUTSIDE RECORDS SUMMARY | 2024-08-10 02:12 | XMS_ITS | Encounter Summary ---
Author Organization [facility] Medical Group Address [address] [facility] [address] [place] [address] Care Team Providers Care Avionic Technician Name Role Phone Brittani Agosto MD Primary Care Provider [phone] Reason for Visit * Reason Onset Date Comments Triny...medical question 09/12/2018 Encounter Details Date Type Department Care Team (Late st Contact Info) Description 09/12/2018 Telephone [facility] at [facility] [address] [address] [place]ani Agosto [place] [id number] [place] [address] Triny...medical question Social History Tobacco Use Types Packs/Day Years Used Date Smoking Tobacco: Never Smokeless Tobacco: Never Alcohol Use Standard Drinks/Week Comments Yes 0 (1 standard drink = 0.6 oz pur e alcohol) Comments No Sex and Gender Information Value Date Recorded Sex Assigned at Not on file Legal Sex Female 1:09 AM MEAT CUTTING BLOCK REPAIRER Gender Identity Not on file Sexual [...] Brittani Agosto MD - 09/12/2018 12:56 PM MEAT CUTTING BLOCK REPAIRER sent CUTTING BLOCK REPAIRER * Telephone Encounter - Estefani Rangel - 09/12/2018 12:28 PM CST Patient is calling because office sent her Celexa to wrong pharmacy. Her current pharmacy is [facility] at [phone] in [place]. Please resend script to correct pharmacy. She is just about out ofher medication. Patient can be reached at [phone]..Sending HP CUTTING BLOCK REPAIRER documented in this encounter Plan of Treatment Not on file documented as of this encounter Visit Diagnoses Not on filedocumented in this encounter Discontinued Medications Medication Sig Discontinue Reason Start Date End Da te citalopram (CeleXA) 40 mg tablet Take 1 tablet (40 mg total) by mouth daily. Reorder 09/06/2018 09/12/2018 documented as of this encounter Care Teams Avionic Technician Relationship Specialty [place] [address] [address] PCP - General Family Medicine 06/21/18 02/19/19 documented as of this encounter
--- OUTSIDE RECORDS SUMMARY | 2024-08-10 02:12 | XMS_ITS | Encounter Summary ---
Author Organization [facility] Medical Group Address [address] [address] Care Team Providers Care Textile Designer Name Role Phone Brittani Agosto MD Primary Care Provider [phone] Cassius Ortega NP Primary Care Provider [phone] Encounter Details Date Type Department Care Team (Late st Contact Info) Description 06/30/2018 Orders Only [facility] Health Information Management [address] [place] [address] Scanning, Provider Social History Tobacco Use Types Packs/Day Years Used Date Smoking Tobacco: Never Smokeless Tobacco: Never Alcohol Use Standard Drinks/Week Comments Yes 0 (1 standard drink = 0.6 oz pur e alcohol) PHQ-2 Answer Date Recorded PHQ-2 Score 2 05/15/2019 Comments No Sex and Gender Information Value Date Recorded Sex Assigned at Not on file 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
--- OUTSIDE RECORDS SUMMARY | 2024-08-10 02:12 | XMS_ITS | Encounter Summary ---
Author Organization [facility] Medical Group Address [address] [facility] [address] [place] [address] Care Team Providers Care Ug Designer Name Role Phone Kelly Olson NP Primary Care Provider + [phone] Reason for Visit * Reason Onset Date Comments Earache 04/08/2017 Encounter Details Date Type Department Care Team (Late st Contact Info) Description 04/08/2017 Nurse Triage [facility] at [facility] [address] [address] [place] [address] [place] [address] Social History Tobacco Use Types Packs/Day Years Used Date Smoking Tobacco: Never Smokeless Tobacco: Never Alcohol Use Standard Drinks/Week Comments Yes 0 (1 standard drink = 0.6 oz pur e alcohol) Comments No Sex and Gender Information Value Date Recorded Sex Assigned at Not on file 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. * Telephone Encounter - Kelly Olson NP [...] Patient c/o: Pain in both ears (same sound person request as yesterday).Patient has used drops and [...] meds for earache Patient has HX of: [facility] Abx and ear drops. A:Earache-Patient wants to be seen R: Home Care Instructions/Education given: Patient verbalizes understanding of the instructions, iscomfortable with the plan and will comply with the plan. Disposition per guideline:See today or tomorrow in office. No appt availalb.e PLEASE ADVISE PATIENT:[phone] (w). Patient would like to be seen today. Allergies and pharmacywere verified. High tasked to PCP's clinical group. Reason for Disposition ??? Patient wants to be seen Protocols used: [id number] * Telephone Encounter - Fatoumata Galo RN - 04/08/2017 8:59 AM CDT Regarding: Pain in both ears (same sound person request as yesterday) ----- Message from Ellen Tapia sent at 04/08/2017 8:58 AM CDT ----- Symptom Based Call Chief Complaint: Pain in both ears (same sound person request as yesterday) Duration: 3 weeks Appointment [...] on filedocumented in this encounter Care Teams Ug Designer Relationship Specialty [place] [address] [address] PCP - General 03/15/17 06/20/18 documented as of this encounter
--- OUTSIDE RECORDS SUMMARY | 2024-08-10 02:12 | XMS_ITS | Encounter Summary ---
Author Organization [facility] Medical Group Address [address] [facility] [address] [place] [address] Care Team Providers Care Community Service Officer Name Role Phone Brittani Agosto MD Primary Care Provider [phone] Reason for Visit * Reason Onset Date Comments Med Refill 09/12/2018 Encounter Details Date Type Department Care Team (Late st Contact Info) Description 09/12/2018 Telephone [facility] [address] [place] [address] [address], [place] [address] Jennifer Zazueta [place] [address] [place] [address] [address] [place] [address] Med Refill Social History Tobacco Use Types Packs/Day Years Used Date Smoking Tobacco: Never Smokeless Tobacco: Never Alcohol Use Standard Drinks/Week Comments Yes 0 (1 standard drink = 0.6 oz pur e alcohol) Comments No Sex and Gender Information Value Date Recorded Sex Assigned at Not on file Legal Sex Female 1:09 AM ACCOUNT ADVISOR Gender Identity Not on file Sexual Orientation Not on file 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 OV UNT ADVISOR * Telephone Encounter - Irina Camarillo MA - 09/13/2018 11:56 AM ACCOUNT ADVISOR Please see request below from patient and direct. Pt has not been seen since December/2017 and is requesting rx for Bentyl UNT ADVISOR * Telephone Encounter - Joni Hill - 09/13/2018 8:30 AM CST 01/19/18 Espitia 03/19/18 No Show Espitia NFS The patient called the office to request a rx for Bentyl be sent to [facility] UNT ADVISOR documented in this encounter Plan of Treatment Not on file documented as of this encounter Visit Diagnoses Not on filedocumented in this encounter Care Teams Community Service Officer Relationship Specialty Start [place] [address] [address] PCP - General Family Medicine 06/21/18 02/19/19 documented as of this encounter
--- OUTSIDE RECORDS SUMMARY | 2024-08-10 02:12 | XMS_ITS | Encounter Summary ---
Author Organization [facility] Medical Group Address [address] [facility] [address] [place] [address] Care Team Providers Care Purse Maker Name Role Phone Brittani Agosto MD Primary Care Provider [phone] Encounter Details Date Type Department Care Team (Late st Contact Info) Description 03/10/2017 Telephone [facility] [address] [place] [address] [address], [place] [address] Irina Camarillo CMA Social History Tobacco Use Types Packs/Day Years Used Date Smoking Tobacco: Never Smokeless Tobacco: Never Alcohol Use Standard Drinks/Week Comments Yes 0 (1 standard drink = 0.6 oz pur e alcohol) Comments No Sex and Gender Information Value Date Recorded Sex Assigned at Not on file Legal Sex Female 1:[address] Gender Identity Not on file Sexual Orientation [...] on filedocumented in this encounter Care Teams Purse Maker Relationship Specialty [place] [address] [address] PCP - General 12/22/16 03/14/17 documented as of this encounter
--- OUTSIDE RECORDS SUMMARY | 2024-08-10 02:12 | XMS_ITS | Encounter Summary ---
Author Organization [facility] Healthcare Address [address] [id number] Care Team Providers Care Milk House Worker Name Role Phone Cassius Ortega NP Primary Care Provider [phone] Reason for Referral * Diagnostic Imaging (Routine) - Closed Specialty Diagnoses / Procedures Referred By Cara alvarez Referred To Contact Diagnoses Abnormal uterine bleeding (AUB) Bulky or enlarged uterus Procedures US Pelvis Complete Christin oMrrison NP [address] [facility] [phone] [place] [address] Phone: tel: fax: [facility] (All Locations) Referral ID Status Reason Start Date Expiration Date Visits Re quested Visits Authorized [id number] Closed 09/01/2019 03/12/2021 1 1 OR CLIP FASTENER Reason for Visit * Diagnostic Imaging (Routine) - Closed Specialty Diagnoses / Procedures Referred By Cara alvarez Referred To Contact Diagnoses Abnormal uterine bleeding (AUB) Bulky or enlarged uterus Procedures US Pelvis Complete Christin Morrison NP [address] [facility] [phone] [place] [address] Phone: tel: fax: [facility] (All Locations) Referral ID Status Reason Start Date Expiration Date Visits Re quested Visits Authorized [id number] Closed 09/01/2019 03/12/2021 1 1 Encounter Details Date Type Department Care Team (Latest Contact Info) Description 09/18/2019 2:58 PM PIN OR CLIP FASTENER - 09/18/2019 11:59 PM PIN OR CLIP FASTENER Hospital Encounter [facility] Ul[facility]ound [address] [facility], 7th Floor, [address] [place] [facility] [place] [id number] Parviz Farrell MD [address] [facility] [place] [address] [place], [place] [id number] Christin Morrison NP [address] [facility] [place] MSC [phone] [place], [place] [id number] Abnormal uterine bleeding (AUB); Bulky or enlarged [...] on file Legal Sex Female 1:09 AM PIN OR CLIP FASTENER Gender Identity Not on file Sexual Orientation [...] 1 tablet (150 mcg total) by mouth supervisor cutting department before breakfast 90 tablet 3 05/17/2019 0 [...] call/overall pelvic us results. Christin Morrison NP OR CLIP FASTENER documented in this encounter Plan of Treatment Not on file documented as of this encounter Procedures Procedure Name Priority Date/Time Associated Diagnosis Comments US PELVIS COMPLETE Schedule Routine, Read Routine (OP Routine) 09/18/2019 2:58 PM PIN OR CLIP FASTENER Abnormal uterine bleeding (AUB) Bulky or enlarged uterus documented in this encounter Results * US Pelvis Complete (09/18/2019 2:58 PM PIN OR CLIP FASTENER) Cul de Sac No free fluid visualized [facility] Endometrial Thickness 7.9 mm&millim eters [facility] Anatomical Region Laterality Modality Pelvis N/A Ultrasound 09/18/2019 3:00 PM PIN OR CLIP FASTENER us Christin Morrison NP IMG US PROCEDURES Final Re sult documented in this encounter Visit Diagnoses Diagnosis Abnormal uterine bleeding (AUB) Bulky or enlarged uterus Hypertrophy of uterus documented in this encounter Care Teams Milk House Worker Relationship Specialty Start [place] [address] [address] [facility] [address] [address] PCP - General Family Medicine 02/21/19 documented as of this encounter
--- OUTSIDE RECORDS SUMMARY | 2024-08-10 02:12 | XMS_ITS | Encounter Summary ---
Author Organization [facility] Medical Group Address [address] [address] Care Team Providers Care Manager Of Security Name Role Phone Kelly Olson NP Primary Care Provider [phone] Encounter Details Date Type Department Care Team (Latest Contact Info) Description 09/24/2017 10:01 AM RIFLE CASE REPAIRER - 09/24/2017 11:59 PM RIFLE CASE REPAIRER Hospital Encounter [facility] Orthopedics and Sports Medicine [address] [place] [phone] Discharge Disposition: Discharge to home or self care Social History Tobacco Use Types Packs/Day Years Used Date Smoking Tobacco: Never Smokeless Tobacco: Never Alcohol Use Standard Drinks/Week Comments Yes 0 (1 standard drink = 0.6 oz pur e alcohol) Comments No Sex and Gender Information Value Date Recorded Sex Assigned at Not on file Legal Sex Female 1:09 AM RIFLE CASE REPAIRER Gender Identity Not on file Sexual [...] Read Routine (OP Routine) 09/24/2017 10:10 AM RIFLE CASE REPAIRER Right shoulder pain, unspecified chronicity documented in this encounter Results * XR Shoulder Right 4 Views (09/24/2017 10:10 AM RIFLE CASE REPAIRER) Anatomical Region Laterality Modality Upper Extremities, Shoulder Right Radi ographic Imaging Narrative 09/24/2017 10:39 AM RIFLE CASE REPAIRER Four views 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
--- OUTSIDE RECORDS SUMMARY | 2024-08-10 02:12 | XMS_ITS | Encounter Summary ---
Author Organization [facility] Address [address] [facility] [address] [place] [address] Phone Care Team Providers Care Subassembler Name Role Phone Cassius Ortega NP Primary Care Provider [phone] Reason for Referral * Diagnostic Imaging (Routine) - Closed Specialty Diagnoses / Procedures Referred By Cara alvarez Referred To Contact Diagnoses Abnormal uterine bleeding (AUB) Bulky or enlarged uterus Procedures US Pelvis Complete Christin Morrison NP [address] [facility] MSC [phone] [place] [address] Phone: tel: fax: [facility] (All Locations) Referral ID Status Reason Start Date Expiration Date Visits Re quested Visits Authorized [id number] Closed 09/01/2019 03/12/2021 1 1 ULAR PHYSICIAN Reason for Visit * Reason Comments irregular cycles Encounter Details Date Type Department Care Team (Late st Contact Info) Description 09/01/2019 9:00 AM VASCULAR PHYSICIAN Office Visit [facility] Obstetrics and Gynecology [address] [place] [address] Health 7th Floor [address] [place] [address] Christin Morrison NP [address] [facility] [phone] [place] [address] Abnormal uterine bleeding (AUB) (Primary Dx); Bulky [...] on file Legal Sex Female 1:09 AM VASCULAR PHYSICIAN Gender Identity Not on file Sexual Orientation Not on file 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 female who presents as New Senior Policy Associate/re establish care visit todayfor AUB. Previous pt of Dr Irizarry. Has been having heavy menses for the last year. However she didhave 2 menses in July. Her monthly menses last about 7 days. 3/7 are heavy using at least 10 ormore pads those heavy days. Her GP physician did a pap on her 3 years ago and this was normal. Hasn't seen a Restaurant Associate in at least 5 years. Last saw [...] HX OTHER MEDICAL 2006 Caesarean section; Comments: [facility] 04/06/2014 - ??? HX OTHER MEDICAL 2008 C section; Comments: [facility] 04/06/2014 - ??? HX OTHER MEDICAL 05/2013 l4/l5 dissection; Comments: [facility] 04/06/2014 - ??? HX OTHER MEDICAL 2008 Tubaligation; Comments: [facility] 04/06/2014 - ??? HX OTHER MEDICAL postpardum [...] Occupational History ??? 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 Financial resource strain: Not [...] file Gets together: Not on file Attends moravian service: Not on file Active member of [...] 1 tablet (150 mcg total) by mouth corporate safety manager before breakfast, Disp: 90 tablet, Rfl: 3 [...] to discuss results/management Christin Morrison NP 09/01/2019 ULAR PHYSICIAN documented in this encounter Plan of Treatment Not on file documented as of this encounter Results * US Pelvis Complete (09/18/2019 2:58 PM VASCULAR PHYSICIAN) Cul de Sac No free fluid visualized [facility] Endometrial Thickness 7.9 mm&millim eters [facility] Anatomical Region Laterality Modality Pelvis N/A Ultrasound 09/18/2019 3:00 PM VASCULAR PHYSICIAN Christin Morrison NP IMG US PROCEDURES Final Re sult * (ABNORMAL) CBC with auto differential (09/01/2019 10:03 AM VASCULAR PHYSICIAN) WBC 7.3 3.8 - 9.9 K/cumm [facility] Hgb 10.9(L) 11.9 - 15.5 g/dL [facility] Hct 33.1(L) 35.6 - 45.5 % [facility] Plt 306 150 - 400 K/cumm [facility] MPV 9.0(L) 9.1 - 12.3 fL [facility] RBC 3.89(L) 3.90 - 5.20 M/cumm [facility] MCV 85.1 81.3 - 96.4 fL [facility] MCH 28.0 27.1 - 33.3 pg [facility] MCHC 32.9 32.3 - 35.7 g/dL [facility] RDW CV 14.3 11.1 - 14.9 % [facility] RDW SD 44.1 35.7 - 48.1 fL [facility] NRBC abs 0.00 0.00 - 0.01 K/cumm [facility] Blood specimen (specimen) 09/01/2019 10:03 AM VASCULAR PHYSICIAN 09/01/2019 10:21 AM VASCULAR PHYSICIAN Christin Morrison NP LAB BLOOD ORDERABLES Final Result [facility] [place] [address] documented in this encounter Visit Diagnoses Diagnosis [...] documented as of this encounter Care Teams Subassembler Relationship Specialty [place] [address] [address] [facility] [address] [address] PCP - General Family Medicine 02/21/19 documented as of this encounter
--- OUTSIDE RECORDS SUMMARY | 2024-08-10 02:12 | XMS_ITS | Encounter Summary ---
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
--- OUTSIDE RECORDS SUMMARY | 2024-08-10 02:12 | XMS_ITS | Encounter Summary ---
Author Organization [facility] Healthcare Address [address] [place] [address] Care Team Providers Care Shellfish Checker Name Role Phone Cassius Ortega NP Primary Care Provider [phone] Encounter Details Date Type Department Care Team (Late st Contact Info) Description 04/05/2019 9:30 AM CDT Lab [id number] [place] [address] No, Physician Discharge Disposition: Discharge to home or self care Social History Tobacco Use Types Packs/Day Years Used Date Smoking Tobacco: Never Smokeless Tobacco: Never Alcohol Use Standard Drinks/Week Comments Yes 0 (1 standard drink = 0.6 oz pur e alcohol) Comments No Sex and Gender Information Value Date Recorded Sex Assigned at Not on file Legal Sex Female 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 This test has not been cleared or approved by the U.S. Food and Drug Administration. Test Performed by: [place] [address] Appliance Fixer: Timothy Renae M.D. Ph.D.; CLIA# [id number] Urine 04/30/2019 6:00 PM CDT 05/01/2019 7:22 AM CDT us Charly Olson MD LAB URINE ORDERABLES Final Res ult [place] [address] [place] [address] * VMA, urine, 24 hour (04/30/2019 6:00 PM CDT) VMA, adult, ur 4.5 <8.0 mg/24H [facility] Comment: Performed by: ??[facility] ??[address] [place], [place] [address] [address] ??Appliance Fixer: Timothy Renae II, MD, PhD VMA, child, ur Not Reported [facility] Urine 04/30/2019 6:00 PM CDT 05/01/2019 7:14 AM CDT us Charly Olson MD LAB URINE ORDERABLES Final Res ult [facility] [address] [place] [address] * T-SPOT.TB (04/05/2019 9:28 AM CDT) T-SPOT.TB Negative Negative [facility] Comment: Limitations from [...] with T-SPOT.TB test. T-Spot testing performed by [facility], [address] [place] [address]. [id number] A negative test result does not exclude [...] test. T-SPOT.TB Panel A Spot Count 0 [facility] T-SPOT.TB Panel B Spot Count 0 [facility] T-SPOT.TB Negative Control Passed [facility] T-SPOT.TB Positive Control Passed [facility] Blood specimen (specimen) 04/05/2019 9:28 AM CDT 04/05/2019 5:21 PM CDT us Notinfile Unknown LAB MICROBIOLOGY - GENERAL ORD ERABLES Final Result [facility] [address] [place] [address] documented in this encounter Visit Diagnoses Not on filedocumented in this encounter Care Teams Shellfish Checker Relationship Specialty [place] [address] [address] [place] [address] PCP - General Family Medicine 02/21/19 documented as of this encounter
--- OUTSIDE RECORDS SUMMARY | 2024-08-10 02:12 | XMS_ITS | Encounter Summary ---
Author Organization [facility] Healthcare Address [address] [place] [address] Care Team Providers Care Superior Court Clerk Name Role Phone Kelly Olson NP Primary Care Provider [phone] Encounter Details Date Type Department Care Team (Late st Contact Info) Description 09/09/2017 8:05 PM WIRELESS RETAIL MANAGER Lab [address] [address] Social History Tobacco Use Types Packs/Day Years Used Date Smoking Tobacco: Never Smokeless Tobacco: Never Alcohol Use Standard Drinks/Week Comments Yes 0 (1 standard drink = 0.6 oz pur e alcohol) Comments No Sex and Gender Information Value Date Recorded Sex Assigned at Not on file Legal Sex Female 1:09 AM WIRELESS RETAIL MANAGER Gender Identity Not on file Sexual Orientation Not on file 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 documented as of this encounter Plan of Treatment Not on file documented as of this encounter Procedures Procedure Name Priority Date/Time Associated Diagnosis Comments GONORRHEA DNA, THIN PREP Routine 09/09/2017 8:25 AM WIRELESS RETAIL MANAGER CHLAMYDIA DNA, THIN PREP Routine 09/09/2017 8:25 AM WIRELESS RETAIL MANAGER documented in this encounter Results * Gonorrhea DNA, Thin Prep (09/09/2017 8:25 AM WIRELESS RETAIL MANAGER) Gonorrheae (GC) DNA, thin prep Negative Negative [facility] Comment: Interpretive Data This test has been [...] on 2016 Thin prep 09/09/2017 8:25 AM WIRELESS RETAIL MANAGER 09/09/2017 8:04 PM WIRELESS RETAIL MANAGER Narrative [facility] - 09/10/2017 11:24 AM WIRELESS RETAIL MANAGER Kelly Olson NP LAB BLOOD ORDERABLES Final Result Performing Organization Address City/[facility]/ZIP Co de Phone Number [facility] [address] [address] [place] [address] * Chlamydia DNA, Thin Prep (09/09/2017 8:25 AM WIRELESS RETAIL MANAGER) Chlamydia Amplified RNA, Liquid-based pap Negative Negative [facility] Comment: Interpretive Data This test has been [...] on 2016 Thin prep 09/09/2017 8:25 AM WIRELESS RETAIL MANAGER 09/09/2017 8:04 PM WIRELESS RETAIL MANAGER Narrative [facility] - 09/10/2017 11:24 AM WIRELESS RETAIL MANAGER Kelly Olson NP LAB BLOOD ORDERABLES Final Result [facility] [address] [address] [facility] [employer] [place] [address] documented in this encounter Visit Diagnoses Not on filedocumented in this encounter Care Teams Superior Court Clerk Relationship Specialty [place] [address] [address] [phone] PCP - General 03/15/17 06/20/18 documented as of this encounter
--- OUTSIDE RECORDS SUMMARY | 2024-08-10 02:12 | XMS_ITS | Encounter Summary ---
Author Organization [facility] Address [address] [facility] [address] [place] [address] Care Team Providers Care Maintenance Of Way Clerk Name Role Phone Cassius Ortega NP Primary Care Provider [phone] Reason for Visit * Reason Onset Date Comments Test Results 05/17/2019 Encounter Details Date Type Department Care Team (Late st Contact Info) Description 05/17/2019 Telephone Family Care at [address] [address] Lita Murguia CMA Test Results [...] on file Legal Sex Female 1:09 AM HEAT TREATER Gender Identity Not on file Sexual Orientation [...] on filedocumented in this encounter Care Teams Maintenance Of Way Clerk Relationship Specialty Start [place] [address] [address] [facility] [address] [address] PCP - General Family Medicine 02/21/19 documented as of this encounter
--- OUTSIDE RECORDS SUMMARY | 2024-08-10 02:12 | XMS_ITS | Encounter Summary ---
Author Organization [facility] Medical Group Address [address] [address] Care Team Providers Care Alarm Mechanic Name Role Phone Kelly Olson NP Primary Care Provider +- [phone] Reason for Visit * Reason Comments Preventative Care Well women exam Anxiety Encounter Details Date Type Department Care Team (Latest Contact Info) Description 09/09/2017 7:45 AM SHOWER ROOM ATTENDANT Office Visit Family Care at [facility] [address] [address] Kelly [place] [id number] [place] [address] Well female exam with routine gynecological [...] on file Legal Sex Female 1:09 AM SHOWER ROOM ATTENDANT Gender Identity Not on file Sexual Orientation Not on file 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 documented as of this encounter Last Filed Vital Signs Vital Sign Reading Time Taken Comments Blood Pressure 142/66 09/09/2017 7:57 AM SHOWER ROOM ATTENDANT Pulse 81 09/09/2017 7:57 AM SHOWER ROOM ATTENDANT Temperature 36.6 ??C (97.8 ??F) 09/09/2017 7:57 AM CS T Respiratory Rate - - Oxygen Saturation - - Inhaled Oxygen Concentration - - Weight 98.4 kg (217 lb) 09/09/2017 7:57 AM SHOWER ROOM ATTENDANT Height 161.3 cm (5' 3.5 ) 09/09/2017 7:57 AM SHOWER ROOM ATTENDANT Body Mass Index 37.84 09/09/2017 7:57 AM SHOWER ROOM ATTENDANT documented in this encounter Ordered Prescriptions Prescription [...] this encounter Progress Notes * Kelly Olson, SENIOR BUSINESS CONSULTANT - 09/09/2017 7:45 AM CST Subjective/Objective Patient ID: Deejay Alofrd is a 42 y.o. female. Chief Complaint [...] times a day as needed for anxiety. ER ROOM ATTENDANT documented in this encounter Miscellaneous Notes * Assessment & Plan Note - Kelly Olson NP - 09/09/2017 9:22 AM SHOWER ROOM ATTENDANT Associated Problem(s): BMI 37.0-37.9, adult Weight is unchanged. Discussed the patient's BMI. The BMI is above average; BMI management plan is completed. General weight loss/lifestyle modification strategies discussed (elicit support from others; identify saboteurs; non-food rewards, etc). ER ROOM ATTENDANT * Assessment & Plan Note - Kelly Olson NP - 09/09/2017 9:19 AM SHOWER ROOM ATTENDANT Associated Problem(s): Anxiety Uncontrolled with recent stress with marriage and separation. Plan to increase Citalopram to 40 mg daily. Start Xanax 0.5 mg 1 every 8hrs prn. ER ROOM ATTENDANT * Assessment & Plan Note - Kelly Olson NP - 09/09/2017 9:18 AM SHOWER ROOM ATTENDANT Associated Problem(s): Screening mammogram, encounter for (Resolved 01/09/2020) RX for mammogram ER ROOM ATTENDANT * Assessment & Plan Note - Kelly Olson NP - 09/09/2017 9:18 AM SHOWER ROOM ATTENDANT Associated Problem(s): Screening for malignant neoplasm of cervix (Resolved 01/09/2020) As above. ER ROOM ATTENDANT * Assessment & Plan Note - Kelly Olson NP - 09/09/2017 9:16 AM SHOWER ROOM ATTENDANT Associated Problem(s): Well female exam with routine gynecological exam (Resolved 01/09/2020) Pap smear done. Will follow ACOG guidelines. Plan to obtain HSV, RPR, and HIV ER ROOM ATTENDANT documented in this encounter Plan of Treatment Not on file documented as of this encounter Procedures Procedure Name Priority Date/Time Associated Diagnosis Comments CYTOLOGY Routine 09/09/2017 7:42 AM SHOWER ROOM ATTENDANT Well female exam with routine gynecological exam documented in this encounter Results * RPR, serum (09/27/2017 1:40 PM SHOWER ROOM ATTENDANT) RPR Non-Reactiv e Non-Reactiv e TADEONER Blood specimen (specimen) 09/27/2017 1:40 PM SHOWER ROOM ATTENDANT 09/27/2017 2:54 PM SHOWER ROOM ATTENDANT Narrative [facility] - 09/28/2017 12:06 PM SHOWER ROOM ATTENDANT Kelly Olson NP LAB MICROBIOLOGY - GENERAL ORDERABLES Final Result [facility] [address] [address] [place] [address] * HSV 1 and 2 antibodies IgG, IgM (09/27/2017 1:40 PM SHOWER ROOM ATTENDANT) Pathologist [facility] HSV 1 IgG Positive Negative [facility] HSV 2 IgG Negative Negative [facility] HSV 1/2 IgM Negative Negative [facility] Comment: ADDITIONAL INFORMATION This test has been modified from the bolting machine operator's instructions. Its performance characteristics were determined by [facility] in a manner consistent with CLIA requirements. This test has not been cleared or approved by the U.S. Food and Drug Administration. Test Performed by: [facility] [address] [place] [address] Blood specimen (specimen) 09/27/2017 1:40 PM SHOWER ROOM ATTENDANT 09/27/2017 2:54 PM SHOWER ROOM ATTENDANT Narrative [facility] - 09/29/2017 7:12 PM SHOWER ROOM ATTENDANT Kelly Olson NP LAB MICROBIOLOGY - GENERAL ORDERABLES Final Result Performing Organization Address City/[facility]/ZIP Co de Phone Number [facility] [address] [place] [address] * HIV-1 and HIV-2 antibody with P24 antigen immunoassay (09/27/2017 1:40 PM SHOWER ROOM ATTENDANT) Pathologist [facility] HIV 1/2 ab + p24 ag Nonreactive [facility] Blood specimen (specimen) 09/27/2017 1:40 PM SHOWER ROOM ATTENDANT 09/27/2017 2:54 PM SHOWER ROOM ATTENDANT Narrative [facility] - 09/27/2017 4:17 PM SHOWER ROOM ATTENDANT Kelly Olson NP LAB MICROBIOLOGY - GENERAL ORDERABLES Final Result [facility] [address] [place] [address] * (ABNORMAL) Lipid panel (09/27/2017 1:40 PM SHOWER ROOM ATTENDANT) [facility] Signature Cholesterol 255(H) 100 - 200 [...] revised on 2016. Non-HDL Cholesterol 204 mg/dL [facility] Comment: Interpretive Data When triglycerides are >200 mg/dL, non-HDL C is a secondary target of therapy, with a goal 30 mg/dL higher than the identified LDL-C goal. Current interpretive data was last revised 2016. Blood specimen (specimen) 09/27/2017 1:40 PM SHOWER ROOM ATTENDANT 09/27/2017 2:54 PM SHOWER ROOM ATTENDANT Narrative [facility] - 09/27/2017 3:32 PM SHOWER ROOM ATTENDANT Kelly Olson SENIOR BUSINESS CONSULTANT LAB BLOOD ORDERABLES Final Result Performing Organization Address [facility] Co de Phone Number [facility] FLOR [address] [address] Department [place] [address] * TSH (09/27/2017 1:40 PM SHOWER ROOM ATTENDANT) Pathologist [facility] Thyroid Stimulating Hormone 2.36 0.45 - 5.33 mcIUnit/mL [facility] Blood specimen (specimen) 09/27/2017 1:40 PM SHOWER ROOM ATTENDANT 09/27/2017 2:54 PM SHOWER ROOM ATTENDANT Narrative [facility] - 09/27/2017 3:37 PM SHOWER ROOM ATTENDANT Kelly Olson SENIOR BUSINESS CONSULTANT LAB BLOOD ORDERABLES Final Result Performing Organization Address [facility] Co de Phone Number [facility] FLOR [address] Department [place] [address] * (ABNORMAL) Comprehensive metabolic panel (09/27/2017 1:40 PM SHOWER ROOM ATTENDANT) Pathologist [facility] Sodium 134(L) 135 - 145 mmol/L [facility] Potassium, pl 3.5 3.5 - 5.1 mmol/L [facility] CO2 25 22 - 32 mmol/L [facility] BUN 13 8 - 24 mg/dL [facility] Glucose 112 70 - 199 mg/dL [facility] Comment: Interpretive Data Fasting glucose [...] CH Blood specimen (specimen) 09/27/2017 1:40 PM SHOWER ROOM ATTENDANT 09/27/2017 2:54 PM SHOWER ROOM ATTENDANT Narrative [facility] - 09/27/2017 3:32 PM SHOWER ROOM ATTENDANT Kelly Olson SENIOR BUSINESS CONSULTANT [place] [address] [address] Department [place] [address] * (ABNORMAL) CBC with auto differential (09/27/2017 1:40 PM SHOWER ROOM ATTENDANT) WBC 11.71(H) 3.80 - 9.90 K/cumm [facility] [...] CH Blood specimen (specimen) 09/27/2017 1:40 PM SHOWER ROOM ATTENDANT 09/27/2017 2:54 PM SHOWER ROOM ATTENDANT Narrative [facility] - 09/27/2017 3:30 PM SHOWER ROOM ATTENDANT Kelly Olson SENIOR BUSINESS CONSULTANT LAB BLOOD ORDERABLES Final Result [facility] [address] Department [place] [address] * Cytology (09/09/2017 7:42 AM SHOWER ROOM ATTENDANT) Fluid 09/09/2017 7:42 AM SHOWER ROOM ATTENDANT 09/09/2017 7:42 AM SHOWER ROOM ATTENDANT Narrative PATHOLOGY - 09/10/2017 3:13 PM SHOWER ROOM ATTENDANT [facility] Department of Pathology [address] [place] [address] Final Report with Addendum ?Patient Name: DEEJAY ALFORD Address: [address] [place] [address] Service: Laboratory ??[place], [place] ??[id number] Location: Lab Taken: 09/09/2017 Gender: F Received 09/09/2017 : 1975 (Age: 42) Hospital #: [id number] Accessioned: 09/10/2017 ?? Patient Type: Ref Lab Reported 09/10/2017 Physician(s): Kelly Olson NCarmen. Kelly Olson N.Mattie. ?? Diagnosis: Source of Specimen: ? Imaged Thinprep Pap Test plus HPV - Financial Services Education Consultant Cytologic Material Specimen Adequacy: ?- Satisfactory for [...] Imaged Thinprep Pap Test plus HPV - Financial Services Education Consultant Cytologic Material Clinical History: Last Menstrual Period: [...] determined by the Surgical Pathology Department at [facility] as part of an ongoing vice president quality program and in compliance with federally [...] characteristics determined by the Surgical Pathology Department [facility]. ??It has not been cleared or approved by the U. S. Food and Drug Administration. Kelly Olson NP LAB CYTOLOGY ORDERABLES Fi nal Result PATHOLOGY [address] [place] [address] documented in this encounter Visit Diagnoses Diagnosis [...] documented as of this encounter Care Teams Alarm Mechanic Relationship Specialty [place] [address] [address] PCP - General 03/15/17 06/20/18 documented as of this encounter
--- OUTSIDE RECORDS SUMMARY | 2024-08-10 02:12 | XMS_ITS | Encounter Summary ---
Author Organization [facility] Healthcare Address [address] [place] [address] Care Team Providers Care General Partner Name Role Phone Brittani Agosto MD Primary Care Provider [phone] Reason for Visit * Diagnostic Imaging (Routine) - Closed Specialty Diagnoses / Procedures Referred By Cara alvarez Referred To Contact Radiology Diagnoses Acute pain of right shoulder Rotator cuff insufficiency of right shoulder Procedures MRI Shoulder Right WO Contrast Nolan Bernard PA Phone: tel: fax: [address] [address] Referral ID Status Reason Start Date Expiration Date Visits Re quested Visits Authorized [id number] Closed 06/21/2018 12/31/2019 1 1 Encounter Details Date Type Department Care Team (Latest Contact Info) Description 07/04/2018 6:46 PM TANDEM MILL OPERATOR - 07/04/2018 11:59 PM TANDEM MILL OPERATOR Hospital Encounter [facility] Center [address] [place] [address] Nolan Bernard PA [address] [place] [address] [address] [place] [address] Cuate Mcmullen MD [address] [place] [address] [address] [place] [address] Discharge Disposition: Discharge to home or self care Social History Tobacco Use Types Packs/Day Years Used Date Smoking Tobacco: Never Smokeless Tobacco: Never Alcohol Use Standard Drinks/Week Comments Yes 0 (1 standard drink = 0.6 oz pur e alcohol) Comments No Sex and Gender Information Value Date Recorded Sex Assigned at Not on file Legal Sex Female 1:09 AM TANDEM MILL OPERATOR Gender Identity Not on file Sexual [...] mcg tablet Take 150 mcg by mouth on air director before breakfast. 09/06/2018 traMADol (ULTRAM) 50 mg [...] Read Routine (OP Routine) 07/04/2018 7:24 PM TANDEM MILL OPERATOR Acute pain of right shoulder Rotator cuff insufficiency of right shoulder documented in this encounter Results * MRI Shoulder Right WO Contrast (07/04/2018 7:24 PM TANDEM MILL OPERATOR) Anatomical Region Laterality Modality Upper Extremities Right Magnetic Reson ance 07/04/2018 8:56 PM TANDEM MILL OPERATOR Impressions 07/04/2018 8:57 PM TANDEM MILL OPERATOR 1. ??Tendinosis or partial tear of the supraspinatus tendon. 2. ??Osteoarthrosis of the acromioclavicular joint. Electronically signed by: Jani Guevara M.D. Narrative 07/04/2018 8:57 PM TANDEM MILL OPERATOR EXAM: Right shoulder MRI HISTORY: Pain in [...] on filedocumented in this encounter Care Teams General Partner Relationship Specialty Start [place] [address] [address] PCP - General Family Medicine 06/21/18 02/19/19 documented as of this encounter
--- OUTSIDE RECORDS SUMMARY | 2024-08-10 02:12 | XMS_ITS | Encounter Summary ---
Author Organization [facility] Medical Group Address [address] [address] Care Team Providers Care Customer Experience Retail Clerk Name Role Phone Brittani Agosto MD Primary Care Provider [phone] Reason for Referral * Injectables (Routine) - Closed Specialty Diagnoses / Procedures Referred By Contac t Referred To Contact Diagnoses Nontraumatic incomplete tear of right rotator cuff Procedures Large Joint (Hip, Knee, Shoulder) Injection: R subacromial bursa Nolan Bernard PA Phone: tel: fax: [facility] Referral ID Status Reason Start Date Expiration Date Visits Re quested Visits Authorized [id number] Closed 11/28/2018 06/08/2020 1 1 Reason for Visit * Reason Comments Follow-up Encounter Details Date Type Department Care Team (Latest Contact Info) Description 11/28/2018 1:00 PM CDT Office Visit [facility] Orthopedics and Sports Medicine [address] [place] [phone] Nolan Bernard PA [address] [place] [address] [place] [address] Nontraumatic incomplete tear of right rotator cuff [...] file Legal Sex Female 1:09 AM TOBACCO STEMMER MACHINE Gender Identity Not on file Sexual Orientation [...] Procedure Name Priority Date/Time Associated Diagnosis Comments SD ARTHROCENTESIS ASPIR&/INJ MAJOR JT/BURSA W/O US Routine 11/28/2018 1:00 PM CDT Nontraumatic incomplete tear of right rotator cuff documented in this encounter Results * SD ARTHROCENTESIS ASPIR&/INJ MAJOR JT/BURSA W/O US (11/28/2018 [...] 11/29/2018 documented in this encounter Care Teams Customer Experience Retail Clerk Relationship Specialty Start [place] [address] [address] PCP - General Family Medicine 06/21/18 02/19/19 documented as of this encounter
--- OUTSIDE RECORDS SUMMARY | 2024-08-10 02:12 | XMS_ITS | Encounter Summary ---
Author Organization [facility] Healthcare Address [address] [place] [address] Care Team Providers Care Tire Building Supervisor Name Role Phone Cassius Ortega NP Primary Care Provider [phone] Encounter Details Date Type Department Care Team (Late st Contact Info) Description 09/01/2019 10:05 AM BEATER OUT Lab [facility] Outpatient Health [address] [facility] Outpatient Health [place], [place] [id number] Christin Morrison NP [address] [facility] [phone] [place], [place] [id number] Abnormal uterine bleeding (AUB) Discharge Disposition: Discharge [...] on file Legal Sex Female 1:09 AM BEATER OUT Gender Identity Not on file Sexual Orientation [...] appt with Dr Irizarry. Christin Morrison NP ER OUT documented in this encounter Plan of Treatment Not on file documented as of this encounter Procedures Procedure Name Priority Date/Time Associated Diagnosis Comments CYTOLOGY Routine 09/01/2019 10:38 AM BEATER OUT DIFFERENTIAL AUTO Routine 09/01/2019 10: 03 AM BEATER OUT Abnormal uterine bleeding (AUB) CBC WITH AUTO DIFFERENTIAL Routine 09/01/2019 10:03 AM BEATER OUT Abnormal uterine bleeding (AUB) documented in this encounter Results * Cytology (09/01/2019 10:38 AM BEATER OUT) 09/01/2019 10:3 8 AM BEATER OUT 09/01/2019 12:11 PM BEATER OUT Narrative 09/07/2019 10:27 AM BEATER OUT EPIC results best viewed via link to PDF [facility] Alise Gallo Laboratory of Surgical Pathology [place] [address] CYTOPATHOLOGY REPORT FINAL Patient Name: ??DEEJAY ALFORDMaurice Gender: ??F : ??1975 (Age: 44) Address: ??[address] [place] [address] [place], [place] ??[address] Hospital #: ??[id number] Service: ??Gynecology Location: ??[facility] Patient Type: ??MERGED WITH [facility] Ancillary Taken: ??09/01/2019 Received: ??09/01/2019 Accessioned: ??09/01/2019 [...] 68. ??This HPV test was performed at [facility] in [place], [place] utilizing the Gen-Probe Aptima assay. /09/07/2019 [...] AUB. The [place] [address]. The Gonorrhea/[place]lam[place] [address]. Report Images and scanned documents, if included only viewable in PDF version The performance characteristics of some immunohistochemical stains, in-situ hybridization and fluorescence in-situ hybridization tests and immunophenotyping by flow cytometry cited in this report (if any) were determined by the Surgical Pathology Department at [facility] as part of an ongoing design quality engineer program and in compliance with federally [...] by the Surgical Pathology Department of [facility]. ??It has not been cleared or approved by the U. S. Food and Drug Administration. Christin Morrison RANGE ECOLOGIST LAB CYTOLOGY ORDERABLES Fi nal Result * Differential, auto (09/01/2019 10:03 AM BEATER OUT) Neutrophil abs 4.2 1.7 - 6.5 K/cumm [...] revised on 2017. Lymphocyte pct 32.9 % [facility] Comment: Interpretive Data Percent cell count reference ranges are not reported, since discordance with absolute values may lead to misinterpretation of CBC data. Current Interpretive Data was last revised on 2017. Monocyte pct 8.6 % [facility] Comment: Interpretive Data Percent cell count reference ranges are not reported, since discordance with absolute values may lead to misinterpretation of CBC data. Current Interpretive Data was last revised on 2017. Eosinophil pct 0.7 % [facility] Comment: Interpretive Data Percent cell count reference ranges are not reported, since discordance with absolute values may lead to misinterpretation of CBC data. Current Interpretive Data was last revised on 2017. Basophil pct 0.4 % [facility] Comment: Interpretive Data Percent cell count reference ranges are not reported, since discordance with absolute values may lead to misinterpretation of CBC data. Current Interpretive Data was last revised on 2017. Blood specimen (specimen) 09/01/2019 10:03 AM BEATER OUT 09/01/2019 10:21 AM BEATER OUT Christin Morrison RANGE ECOLOGIST LAB BLOOD ORDERABLES Final Result [facility] Department [place] [address] * (ABNORMAL) CBC with auto differential (09/01/2019 10:03 AM BEATER OUT) WBC 7.3 3.8 - 9.9 K/cumm [facility] Hgb 10.9(L) 11.9 - 15.5 g/dL [facility] Hct 33.1(L) 35.6 - 45.5 % [facility] Plt 306 150 - 400 K/cumm [facility] MPV 9.0(L) 9.1 - 12.3 fL [facility] RBC 3.89(L) 3.90 - 5.20 M/cumm [facility] MCV 85.1 81.3 - 96.4 fL [facility] MCH 28.0 27.1 - 33.3 pg [facility] MCHC 32.9 32.3 - 35.7 g/dL [facility] RDW CV 14.3 11.1 - 14.9 % [facility] SD 44.1 35.7 - 48.1 fL [facility] NRBC abs 0.00 0.00 - 0.01 K/cumm [facility] Blood specimen (specimen) 09/01/2019 10:03 AM BEATER OUT 09/01/2019 10:21 AM BEATER OUT Christin Morrison NP LAB BLOOD ORDERABLES Final Result Performing Organization Address City/State/[facility] Co de Phone Number [facility] Department [place] [address] documented in this encounter Visit Diagnoses Diagnosis Abnormal uterine bleeding (AUB) documented in this encounter Care Teams Tire Building Supervisor Relationship Specialty [place] [address] [address] [facility] [address] [place] [address] PCP - General Family Medicine 02/21/19 documented as of this encounter
--- OUTSIDE RECORDS SUMMARY | 2024-08-10 02:12 | XMS_ITS | Encounter Summary ---
Author Organization [facility] Healthcare Address [address] [place] [address] Care Team Providers Care Financial Health Counselor Name Role Phone Cassius Ortega NP Primary Care Provider [phone] Reason for Referral * Diagnostic Imaging (Routine) - Closed Specialty Diagnoses / Procedures Referred By Contac t Referred To Contact Diagnoses Atherosclerosis of renal artery (HCC) Procedures US Renal Doppler Charly Olson MD Phone: tel: fax: [address] [address] Referral ID Status Reason Start Date Expiration Date Visits Re quested Visits Authorized [id number] Closed 04/14/2019 10/23/2020 1 1 Reason for Visit * Diagnostic Imaging (Routine) - Closed Specialty Diagnoses / Procedures Referred By Contac t Referred To Contact Diagnoses Atherosclerosis of renal artery (HCC) Procedures US Renal Doppler Charly Olson MD Phone: tel: fax: [address] [address] Referral ID Status Reason Start Date Expiration Date Visits Re quested Visits Authorized [id number] Closed 04/14/2019 10/23/2020 1 1 Encounter Details Date Type Department Care Team (Latest Contact Info) Description 04/24/2019 8:27 AM CDT - 04/24/2019 11:59 PM CDT Hospital Encounter [facility] [address] [place] [address] Charly Olson MD [address] [facility] [address] [place] [address] Atherosclerosis of renal artery (CMS/HCC) Discharge Disposition: [...] on file Legal Sex Female 1:09 AM EDUCATIONAL AID Gender Identity Not on file Sexual Orientation [...] 1 tablet (150 mcg total) by mouth journeyman operator assistant before breakfast 30 tablet 02/21/2019 9 traMADol [...] by: Jostin Barger M.D. Charly Olson MD [facility] PROCEDURES Final Result documented in this encounter Visit Diagnoses Diagnosis Atherosclerosis of renal artery (HCC) Atherosclerosis of renal artery documented in this encounter Care Teams Financial Health Counselor Relationship Specialty [place] [address] [address] [address] PCP - General Family Medicine 02/21/19 documented as of this encounter
--- OUTSIDE RECORDS SUMMARY | 2024-08-10 02:12 | XMS_ITS | Encounter Summary ---
Author Organization [facility] Medical Group Address [address] [facility] [address] [place] [address] Care Team Providers Care Recoater Name Role Phone Kelly Olson NP Primary Care Provider [phone] Reason for Visit * Reason Onset Date Comments MRI order 05/03/2018 Encounter Details Date Type Department Care Team (Late st Contact Info) Description 05/03/2018 Telephone [facility] Medical Group Orthopedics and Sports Medicine [address] [facility] [address] [place] [address] Cuate Mcmullen MD [address] [place] [address] [address] [facility] [address] [place], [place] [id number] MRI order Social History Tobacco Use Types Packs/Day Years Used Date Smoking Tobacco: Never Smokeless Tobacco: Never Alcohol Use Standard Drinks/Week Comments Yes 0 (1 standard drink = 0.6 oz pur e alcohol) Comments No Sex and Gender Information Value Date Recorded Sex Assigned at Not on file Legal Sex Female 1:09 AM MANAGER LOCAL Gender Identity Not on file Sexual Orientation [...] on filedocumented in this encounter Care Teams Recoater Relationship Specialty [place] [address] [address] PCP - General 03/15/17 06/20/18 documented as of this encounter
--- OUTSIDE RECORDS SUMMARY | 2024-08-10 02:12 | XMS_ITS | Encounter Summary ---
Author Organization [facility] Address [address] [address] Care Team Providers Care Lime Filter Operator Name Role Phone Kelly Olson NP Primary Care Provider +1- [phone] Reason for Visit * Reason Comments Pain Encounter Details Date Type Department Care Team (Late st Contact Info) Description 09/24/2017 9:15 AM AIR HAMMER OPERATOR Office Visit [facility] Orthopedics and Sports Medicine [address] [place] [phone] Cuate Mcmullen MD [address] [place] [address] [address] CATES [address] [address] Impingement syndrome of right shoulder (Primary Dx); [...] file Legal Sex Female 1:09 AM AIR HAMMER OPERATOR Gender Identity Not on file Sexual Orientation Not on file 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 documented as of this encounter Last Filed Vital Signs Vital Sign Reading Time Taken Comments Blood Pressure 134/88 09/24/2017 10:05 AM AIR HAMMER OPERATOR Pulse 67 09/24/2017 10:05 AM AIR HAMMER OPERATOR Temperature - - Respiratory Rate - - Oxygen Saturation - - Inhaled Oxygen Concentration - - Weight 98.4 kg (217 lb) 09/24/2017 10:05 AM AIR HAMMER OPERATOR Height 161.3 cm (5' 3.5 ) 09/24/2017 10:05 AM CS T Body Mass Index 37.84 09/24/2017 10:05 AM AIR HAMMER OPERATOR documented in this encounter Progress Notes * [...] because the problemshe worsened catheterization lab at [facility] Pain Assessment Pain Assessment: 0-10 Pain Score: [...] will get MRI before her next follow-up HAMMER OPERATOR documented in this encounter Plan of Treatment Not on file documented as of this encounter Procedures Procedure Name Priority Date/Time Associated Diagnosis Comments XR SHOULDER RIGHT 2 OR MORE VIEWS Schedule Routine, Read Routine (OP Routine) 09/24/2017 10:10 AM AIR HAMMER OPERATOR Right shoulder pain, unspecified chronicity VT ARTHROCENTESIS ASPIR&/INJ MAJOR JT/BURSA W/O US Routine 09/24/2017 9:15 AM AIR HAMMER OPERATOR Impingement syndrome of right shoulder Biceps tendinitis of right upper extremity documented in this encounter Results * XR Shoulder Right 4 Views (09/24/2017 10:10 AM AIR HAMMER OPERATOR) Anatomical Region Laterality Modality Upper Extremities, Shoulder Right Radi ographic Imaging Narrative 09/24/2017 10:39 AM AIR HAMMER OPERATOR Four views right shoulder shows type 3 acromion AC joint arthritis no fracture subluxation dislocation normal axillary view us Cuate Mcmullen MD IMG XR PROCEDURES Final Resu lt * VT ARTHROCENTESIS ASPIR&/INJ MAJOR JT/BURSA W/O US (09/24/2017 9:15 AM AIR HAMMER OPERATOR) Narrative Cuate Mcmullen MD - 09/24/2017 9:15 AM AIR HAMMER OPERATOR Cuate Mcmullen MD ? 09/24/2017 ??4:27 PM [...] right upper extremity Given 09/24/2017 10:43 AM AIR HAMMER OPERATOR 80 mg documented in this encounter Care Teams Lime Filter Operator Relationship Specialty [place] [address] [address] PCP - General 03/15/17 06/20/18 documented as of this encounter
--- OUTSIDE RECORDS SUMMARY | 2024-08-10 02:12 | XMS_ITS | Encounter Summary ---
Author Organization [facility] Healthcare Address [address] [place] [address] Care Team Providers Care Mining Teacher Name Role Phone Kelly Olson NP Primary Care Provider [phone]- [phone] Encounter Details Date Type Department Care Team (Late st Contact Info) Description 01/20/2018 9:45 AM CDT Lab [address] [address] Right upper quadrant abdominal pain Social History Tobacco Use Types Packs/Day Years Used Date Smoking Tobacco: Never Smokeless Tobacco: Never Alcohol Use Standard Drinks/Week Comments Yes 0 (1 standard drink = 0.6 oz pur e alcohol) Comments No Sex and Gender Information Value Date Recorded Sex Assigned at Not on file 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STATEMENT CLERKS Gender Identity Not on file Sexual Orientation [...] AM CDT [facility]ative [facility] - 01/20/2018 10:37 AM CDT Jennifer Zazueta MD LAB BLOOD ORDERABLES Fi nal Result Performing Organization Address [facility] de Phone Number [facility] [address] Department Spinal Integration [place], [place] [id number] * (ABNORMAL) CBC with auto differential (01/20/2018 9:37 AM CDT) WBC 7.4 3.8 - 9.9 K/cumm [facility] RBC 3.87(L) 3.90 - 5.20 M/cumm [facility] Hgb 11.2(L) 11.9 - 15.5 g/dL [facility] Hct 35.0(L) 35.6 - 45.5 % [facility] MCV 90.4 81.3 - 96.4 fL [facility] MCH 28.9 27.1 - 33.3 pg [facility] MCHC 32.0(L) 32.3 - 35.7 g/dL [facility] RDW CV 13.4 11.1 - 14.9 % [facility] RDW SD 44.3 35.7 - 48.1 fL [facility] Plt 248 150 - 400 K/cumm [facility] MPV 9.2 9.1 - 12.3 fL [facility] NRBC abs 0.00 0.00 - 0.01 K/cumm [facility] Blood specimen (specimen) 01/20/2018 9:37 AM CDT 01/20/2018 10:14 AM CDT Narrative [facility] CH - 01/20/2018 10:37 AM CDT Jennifer Zazueta MD LAB BLOOD ORDERABLES Fi nal Result Performing Organization Address [facility] Co de Phone Number [facility] [address] Department Spinal Integration [place], [place] [phone] * Hepatic function panel (01/20/2018 9:37 AM [...] ORDERABLES Fi nal Result Performing Organization Address City/State/[facility] Co de Phone Number [facility] [address] Department [place] [address] documented in this encounter Visit Diagnoses Diagnosis Right upper quadrant abdominal pain documented in this encounter Care Teams Mining Teacher Relationship Specialty [place] [address] [address] [address] PCP - General 03/15/17 06/20/18 documented as of this encounter
--- OUTSIDE RECORDS SUMMARY | 2024-08-10 02:12 | XMS_ITS | Encounter Summary ---
Author Organization [facility] Healthcare Address [address] [place] [address] Care Team Providers Care Repair Mechanic Name Role Phone Cassius Ortega NP Primary Care Provider [phone] Encounter Details Date Type Department Care Team (Late st Contact Info) Description 04/13/2019 9:19 AM CDT - 04/13/2019 11:59 PM CDT Hospital Encounter [facility] Diagnostic Imaging [address] [place] [address] [place] [address] [facility] [address] [place] [address] Discharge Disposition: Discharge to home or self care Social History Tobacco Use Types Packs/Day Years Used Date Smoking Tobacco: Never Smokeless Tobacco: Never Alcohol Use Standard Drinks/Week Comments Yes 0 (1 standard drink = 0.6 oz pur e alcohol) Comments No Sex and Gender Information Value Date Recorded Sex Assigned at Not on file Legal Sex Female 1:09 AM CONCESSION MANAGER Gender Identity Not on file Sexual [...] 1 tablet (150 mcg total) by mouth forensics analyst before breakfast 30 tablet 02/21/2019 9 traMADol [...] on filedocumented in this encounter Care Teams Repair Mechanic Relationship Specialty [place] [address] [address] [facility] [address] [place] [address] PCP - General Family Medicine 02/21/19 documented as of this encounter
--- OUTSIDE RECORDS SUMMARY | 2024-08-10 02:12 | XMS_ITS | Encounter Summary ---
Author Organization [facility] Healthcare Address [address] [place] [address] Care Team Providers Care M1A1 Tank Crewman Name Role Phone Kelly Olson NP Primary Care Provider [phone]- [phone] Reason for Referral * Diagnostic Imaging (Routine) - Closed Specialty Diagnoses / Procedures Referred By Contac t Referred To Contact Diagnoses Right upper quadrant abdominal pain Procedures US Jennifer Gil MD Phone: tel: fax: [address] [phone] Referral ID Status Reason Start Date Expiration Date Visits Re quested Visits Authorized [id number] Closed 01/19/2018 07/31/2019 1 1 Reason for Visit * Diagnostic Imaging (Routine) - Closed Specialty Diagnoses / Procedures Referred By Contac t Referred To Contact Diagnoses Right upper quadrant abdominal pain Procedures US Jennifer Gil MD Phone: tel: fax: [address] [phone] Referral ID Status Reason Start Date Expiration Date Visits Re quested Visits Authorized [id number] Closed 01/19/2018 07/31/2019 1 1 Encounter Details Date Type Department Care Team (Late st Contact Info) Description 01/20/2018 8:55 AM CDT - 01/20/2018 11:59 PM CDT Hospital Encounter [facility] ` [address] [place] [address] [place] [address] [facility] [address] [place] [address] Right upper quadrant abdominal pain [...] file Legal Sex Female 1:09 AM TEST DRILLER Gender Identity Not on file Sexual [...] mcg tablet Take 150 mcg by mouth sales operations before breakfast. 09/06/2018 documented as of this [...] by: Jostin Barger M.D. Jennifer Zazueta MD [facility] PROCEDURES Final Result documented in this encounter Visit Diagnoses Diagnosis Right upper quadrant abdominal pain documented in this encounter Care Teams M1A1 Tank Crewman Relationship Specialty [place] [address] [address] PCP - General 03/15/17 06/20/18 documented as of this encounter
--- OUTSIDE RECORDS SUMMARY | 2024-08-10 02:12 | XMS_ITS | Encounter Summary ---
Author Organization [facility] Healthcare Address [address] [place] [address] Care Team Providers Care Materials Research Engineer Name Role Phone Cassius Ortega NP Primary Care Provider [phone] Encounter Details Date Type Department Care Team (Late st Contact Info) Description 05/01/2019 7:30 AM CDT Lab [address] [id number] Charly Olson MD [address] [place] [address] DR C[address] [place] [address] Discharge Disposition: Discharge to home or self care Social History Tobacco Use Types Packs/Day Years Used Date Smoking Tobacco: Never Smokeless Tobacco: Never Alcohol Use Standard Drinks/Week Comments Yes 0 (1 standard drink = 0.6 oz pur e alcohol) Comments No Sex and Gender Information Value Date Recorded Sex Assigned at Not on file Legal Sex Female 1:09 AM MANAGER CODING Gender Identity Not on file Sexual Orientation [...] VALUE [id number] (Normotensive) <1300 (Hypertensive) Performed by: ??[facility] ??[address] [place] [address] ??Small Stock Facer: Timothy Renae II, MD, PhD Urine 04/30/2019 6:00 PM CDT 05/01/2019 10:19 AM CDT us Charly Olson MD LAB URINE ORDERABLES Final Res ult [facility] [address] [place] [address] documented in this encounter Visit Diagnoses Not on filedocumented in this encounter Care Teams Materials Research Engineer Relationship Specialty [place] [address] [address] [place] [address] PCP - General Family Medicine 02/21/19 documented as of this encounter
--- OUTSIDE RECORDS SUMMARY | 2024-08-10 02:12 | XMS_ITS | Encounter Summary ---
Author Organization [facility] Address [address] [facility] [address] [place] [address] Care Team Providers Care Loom Fixer Apprentice Name Role Phone Brittani Agosto MD Primary Care Provider [phone] Reason for Visit * Reason Onset Date Comments Procedure 02/17/2017 Encounter Details Date Type Department Care Team (Late st Contact Info) Description 02/17/2017 Telephone [facility] Specialists [facility] [address] [place] [address] [address], [place] [address] Jennifer Zazueta MD [address] [place] [address] [address] [place] [address] Procedure Social History Tobacco Use Types Packs/Day Years Used Date Smoking Tobacco: Never Smokeless Tobacco: Never Alcohol Use Standard Drinks/Week Comments Yes 0 (1 standard drink = 0.6 oz pur e alcohol) Comments No Sex and Gender Information Value Date Recorded Sex Assigned at Not on file Legal Sex Female 1:09 AM AUDIO VISUAL COORDINATOR Gender Identity Not on file Sexual [...] on filedocumented in this encounter Care Teams Loom Fixer Apprentice Relationship Specialty [place] [address] [address] [place] [id number] PCP - General 12/22/16 03/14/17 documented as of this encounter
--- OUTSIDE RECORDS SUMMARY | 2024-08-10 02:12 | XMS_ITS | Encounter Summary ---
Author Organization [facility] Address [address] [address] Care Team Providers Care Cost Engineer Name Role Phone Kelly Olson NP Primary Care Provider [phone]- [phone] Reason for Visit * Reason Onset Date Comments Medical Question 06/17/2018 Encounter Details Date Type Department Care Team (Late st Contact Info) Description 06/17/2018 Telephone [facility] Orthopedics and Sports Medicine [address] [place] [phone] Cuate Mcmullen MD [address] [place] [address] DR CATES [address] [address] Medical Question Social History Tobacco Use Types Packs/Day Years Used Date Smoking Tobacco: Never Smokeless Tobacco: Never Alcohol Use Standard Drinks/Week Comments Yes 0 (1 standard drink = 0.6 oz pur e alcohol) Comments No Sex and Gender Information Value Date Recorded Sex Assigned at Not on file Legal Sex Female 1:09 AM ELECTRICIAN MARINE Gender Identity Not on file Sexual Orientation Not on file 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 TRICIAN MARINE * Telephone Encounter - Nolan Bernard PA - 06/17/2018 1:04 PM ELECTRICIAN MARINE Please let her know that she needs to continue to alternate tylenol and ibuprofen but to not exceedmore than 2400mg per day of ibuprofen and 4000mg of tylenol. We will order an MRI but she does not need to come in to see me on Wednesday, I cannot re inject her. Please order MRI TRICIAN MARINE * Telephone Encounter - Alise Arzate - [...] hurts to move her arm. Please advise. TRICIAN MARINE documented in this encounter Plan of Treatment Not on file documented as of this encounter Visit Diagnoses Not on filedocumented in this encounter Care Teams Cost Engineer Relationship Specialty [place] [address] [address] PCP - General 03/15/17 06/20/18 documented as of this encounter
--- OUTSIDE RECORDS SUMMARY | 2024-08-10 02:12 | XMS_ITS | Encounter Summary ---
Author Organization [facility] Address [address] [facility] [address] [place] [address] Care Team Providers Care Fabrication Mig Welder Name Role Phone Kelly Olson NP Primary Care Provider [phone]- [phone] Brittani Agosto MD Primary Care Provider [phone] Cassius Ortega NP Primary Care Provider [phone] Encounter Details Date Type Department Care Team (Late st Contact Info) Description 04/07/2017 Telephone Family Care at [address] [address] Kelly Olson NP [address] [place] [address] Social History Tobacco Use Types Packs/Day Years Used Date Smoking Tobacco: Never Smokeless Tobacco: Never Alcohol Use Standard Drinks/Week Comments Yes 0 (1 standard drink = 0.6 oz pur e alcohol) PHQ-2 Answer Date Recorded PHQ-2 Score 2 05/15/2019 Comments No Sex and Gender Information Value Date Recorded Sex Assigned at Not on file Legal Sex Female 1:09 AM DRYWALL TAPER HELPER Gender Identity Not on file Sexual [...] documented as of this encounter Care Teams Fabrication Mig Welder Relationship Specialty [place] [address] [address] PCP - General 03/15/17 06/20/18 [place] [address] [address] PCP - General Family Medicine 06/21/18 02/19/19 [place] [address] [address] [facility] [address] [address] PCP - General Family Medicine 02/21/19 documented as of this encounter
--- OUTSIDE RECORDS SUMMARY | 2024-08-10 02:12 | XMS_ITS | Encounter Summary ---
Author Organization [facility] Address [address] [address] Care Team Providers Care Blow Mold Technician Name Role Phone Kelly Olson NP Primary Care Provider [phone] Reason for Referral * Injectables (Routine) - Closed Specialty Diagnoses / Procedures Referred By Cara t Referred To Contact Diagnoses Impingement syndrome of right shoulder Biceps tendinitis of right upper extremity Procedures Large Joint Arthrocentesis Brook Singer PA Phone: tel: fax: Referral ID Status Reason Start Date Expiration Date Visits Re quested Visits Authorized [id number] Closed 05/10/2018 11/19/2019 1 1 Reason for Visit * Reason Comments Pain Encounter Details Date Type Department Care Team (Late st Contact Info) Description 05/10/2018 3:30 PM CDT Office Visit [facility] Orthopedics and Sports Medicine [address] [place] [address] [address] [place] [address] Brook Singer PA [address] [place] [address] [address] [place] [address] Impingement syndrome of right shoulder (Primary Dx); [...] on file Legal Sex Female 1:09 AM PLASTIC MACHINE OPERATOR Gender Identity Not on file [...] Procedure Name Priority Date/Time Associated Diagnosis Comments [place] ARTHROCENTESIS ASPIR&/INJ MAJOR JT/BURSA W/O US Routine 05/10/2018 3:30 PM CDT Impingement syndrome of right shoulder Biceps tendinitis of right upper extremity documented in this encounter Results * IA ARTHROCENTESIS ASPIR&/INJ MAJOR JT/BURSA W/O US (05/10/2018 [...] mg documented in this encounter Care Teams Blow Mold Technician Relationship Specialty [place] [address] [place] [address] PCP - General 03/15/17 06/20/18 documented as of this encounter
--- OUTSIDE RECORDS SUMMARY | 2024-08-10 02:12 | XMS_ITS | Encounter Summary ---
Author Organization [facility] Address [address] [facility] [address] [place] [address] Care Team Providers Care Staff Physician Name Role Phone Brittani Agosto MD Primary Care Provider [phone] Encounter Details Date Type Department Care Team (Late st Contact Info) Description 08/17/2018 Orders Only [facility] Orthopedics and Sports Medicine [address] [facility] [address] [place] [address] Nolan Bernard PA [address] [place] [address] [address] [place] [address] Social History Tobacco Use Types Packs/Day Years [...] documented as of this encounter Care Teams Staff Physician Relationship Specialty [place] [address] [address] PCP - General Family Medicine 06/21/18 02/19/19 documented as of this encounter
--- OUTSIDE RECORDS SUMMARY | 2024-08-10 02:12 | XMS_ITS | Encounter Summary ---
Author Organization [facility] Address [address] [facility] [address] [place] [address] Care Team Providers Care Caser In Name Role Phone Kelly Olson NP Primary Care Provider +- [phone] Encounter Details Date Type Department Care Team (Late st Contact Info) Description 04/07/2017 Nurse Triage Family Care at [place] [id number] [facility] [address] [place] [address] Evi Espinoza RN Social History Tobacco Use Types Packs/Day Years Used Date Smoking Tobacco: Never Smokeless Tobacco: Never Alcohol Use Standard Drinks/Week Comments Yes 0 (1 standard drink = 0.6 oz pur e alcohol) Comments No Sex and Gender Information Value Date Recorded Sex Assigned at Not on file Legal Sex Female 1:09 AM ELECTRONIC TESTER Gender Identity Not on file Sexual [...] on filedocumented in this encounter Care Teams Caser In Relationship Specialty [place] [address] [address] [place] [id number] PCP - General 03/15/17 06/20/18 documented as of this encounter
--- OUTSIDE RECORDS SUMMARY | 2024-08-10 02:12 | XMS_ITS | Encounter Summary ---
Author Organization [facility] Healthcare Address [address] [place] [address] Care Team Providers Care Pest Control Applicator Name Role Phone Brittani Agosto MD Primary Care Provider [phone] Encounter Details Date Type Department Care Team (Late st Contact Info) Description 02/17/2017 2:45 PM CDT Lab [address] [address] Epigastric pain; Bloating Social History Tobacco Use Types Packs/Day Years Used Date Smoking Tobacco: Never Smokeless Tobacco: Never Alcohol Use Standard Drinks/Week Comments Yes 0 (1 standard drink = 0.6 oz pur e alcohol) Comments No Sex and Gender Information Value Date Recorded Sex Assigned at Not on file Legal Sex Female 1:09 AM NETWORK OPERATIONS PROJECT MANAGER Gender Identity Not on file [...] units/mL [facility] Comment:Test Performed by: Olivia [address] [address] Blood specimen (specimen) 02/17/2017 2:41 PM CDT 02/17/2017 2:41 PM CDT us Jennifer Zazueta MD LAB BLOOD ORDERABLES Fi nal Result [facility] [address] [place] [address] * CRP (02/17/2017 2:41 PM [...] ORDERABLES Fi nal Result Performing Organization Address City/[facility] Co de Phone Number [facility] [address] [place] [address] * Amylase (02/17/2017 2:41 PM CDT) Amylase 50 35 - 100 Units/L [facility] Blood specimen (specimen) 02/17/2017 2:41 PM CDT 02/17/2017 2:41 PM CDT Jennifer Zazueta MD LAB BLOOD ORDERABLES Fi nal Result Performing Organization Address [facility] de Phone Number [facility] [address] [place] [address] documented in this encounter Visit Diagnoses Diagnosis Epigastric pain Abdominal pain, epigastric Bloating Flatulence, eructation, and gas pain documented in this encounter Care Teams Pest Control Applicator Relationship Specialty Start [place] [address] [address] PCP - General 12/22/16 03/14/17 documented as of this encounter
--- OUTSIDE RECORDS SUMMARY | 2024-08-10 02:13 | XMS_ITS | Encounter Summary ---
Author Organization [facility] Address [address] [facility] [address] [place] [address] Care Team Providers Care Senior Reservoir Engineer Name Role Phone Brittani Agosto MD Primary Care Provider [phone] Encounter Details Date Type Department Care Team (Late st Contact Info) Description 01/20/2017 Telephone Family Care at [facility] [address] [address] [place] [address] [facility] [address] [place] [address] Social History Tobacco Use Types Packs/Day Years Used Date Smoking Tobacco: Never Smokeless Tobacco: Never Alcohol Use Standard Drinks/Week Comments Yes 0 (1 standard drink = 0.6 oz pur e alcohol) Comments No Sex and Gender Information Value Date Recorded Sex Assigned at Not on file Legal Sex Female 1:09 AM DUST BOX WORKER Gender Identity Not on file Sexual Orientation Not on file documented as of this encounter Miscellaneous Notes * Telephone Encounter - Brittani Agosto MD - 01/20/2017 9:51 PM CDT . documented in this encounter Plan of Treatment Not on file documented as of this encounter Visit Diagnoses Not on filedocumented in this encounter Care Teams Senior Reservoir Engineer Relationship Specialty Start [place] [address] [address] PCP - General 12/22/16 03/14/17 documented as of this encounter
--- OUTSIDE RECORDS SUMMARY | 2024-08-10 02:13 | XMS_ITS | Encounter Summary ---
Author Organization [facility] Healthcare Address [address] [place] [address] Care Team Providers Care Gis Application Developer Name Role Phone Kelly Murphy NP Primary Care Provider +1- [phone] Encounter Details Date Type Department Care Team (Late st Contact Info) Description 08/21/2014 12:31 PM TEXTILE BROKER - 08/21/2014 11:59 PM [facility] Hospital [place] [address] [address] [place] [address] [address] Disturbance of skin sensation; Cervical spondylosis without myelopathy Social History Tobacco Use Types Packs/Day Years Used Date Smoking Tobacco: Never Alcohol Use Standard Drinks/Week Comments Yes 0 (1 standard drink = 0.6 oz pur e alcohol) Comments Unknown Sex and Gender Information Value Date Recorded Sex Assigned at Not on file Legal Sex Female 1:09 AM TEXTILE BROKER Gender Identity Not on file Sexual Orientation [...] OR MORE VIEWS Routine 08/21/2014 4:17 PM TEXTILE BROKER PLASMA FERRITIN Routine 08/21/2014 12:37 PM TEXTILE BROKER PLASMA CYANOCOBALAMIN (VITAMIN B12) Routine 08/21/2014 12:37 PM TEXTILE BROKER DISCHARGE LABORATORY CUMULATIVE REPORT 08/21/2014 documented in this encounter Results * XR Spine Cervical Rtn W Flexion And Extension 6+ View (08/21/2014 4:17 PM TEXTILE BROKER) Anatomical Region Laterality Modality Spine N/A Radiographic Leti ging 08/21/2014 4:17 PM TEXTILE BROKER Narrative 08/22/2014 8:35 AM TEXTILE BROKER DATE OF EXAM: ??Aug 21 2014 ??4:17PM Acc#: ??[id number] ??EDX 0023 - XR Cerv. Spine Routine [...] MULTI-LEVEL UNCOVERTEBRAL JOINT OSTEOARTHRITIS, DESCRIBED ABOVE. ?? ION EXCHANGE OPERATOR: ??DM2 TRANSCRIBE DATE/TIME: ??Aug 21 2014 ??8:49P RADIOLOGIST: ??BILLIE QUIROS M.D. ??READ ON: ??Aug 21 2014 ??5:24P ORDERING DR: KELLY MURPHY N.P. THIS DOCUMENT HAS BEEN ELECTRONICALLY SIGNED BY: ??CHULA Perez, BILLIE ??ON: ??Aug 22 2014 ??8:35A Attending: ??JEFFREY, ??KELLY Requesting: ??JEFFREY, ??KELLY Requesting Fax: ??[phone] Attending Fax: ??[phone] Attending ID: ??[id number] Requesting ID: ??[id number] Report To 1 ID: ?? Report To 1 Name: ??, ?? Report To 1 FAX: ??-- Report To 2 ID: ?? Report To 2 Name: ??, ?? Report To 2 FAX: ??-- NextGen Order #: ?? Procedure Note Provider, MD Anais - 11/28/2016 DATE OF EXAM: Aug 21 2014 4:17PM Acc#: [id number] EDX 0023 - XR Cerv. Spine Routine [...] MILD MULTI-LEVEL UNCOVERTEBRAL JOINT OSTEOARTHRITIS, DESCRIBED ABOVE. ION EXCHANGE OPERATOR: EDUARDO TRANSCRIBE DATE/TIME: Aug 21 2014 8:49P RADIOLOGIST: BILLIE QUIROS M.D. READ ON: Aug 21 2014 5:24P ORDERING DR: KELLY MURPHY N.P. THIS DOCUMENT HAS BEEN ELECTRONICALLY SIGNED BY: BILLIE QUIROS M.D. ON: Aug 22 2014 8:35A Attending: KELLY MURPHY Requesting: KELLY MURPHY Requesting Attending Attending ID: [id number] Requesting ID: [id number] Report To 1 ID: Report To 1 Name: , Report To 1 FAX: -- Report To 2 ID: Report To 2 Name: , Report To 2 FAX: -- NextGen Order #: Historical Provider IMG XR PROCEDURES Final R esult * Plasma ferritin (08/21/2014 12:37 PM TEXTILE BROKER) Ferritin 24 11 - 310 ng/ml HISTORICAL RESULTS Plasma 08/21/2014 12:3 7 PM TEXTILE BROKER Result [facility] Kelly Murphy FAMILY INTERVENTION SPECIALIST LAB BLOOD ORDERABLES Final Result Performing Organization Address City/[facility] de Phone Number HISTORICAL RESULTS * Plasma cyanocobalamin (vitamin B12) (08/21/2014 12:37 PM TEXTILE BROKER) Cyanocobalamin (Vit B12) 298 180 - 920 pg/ml HISTORICAL RESULTS Comment: B12 Reference Ranges: (greater than 1 year of age) ?Normal: ?180 - 920 pg/ml Indeterminate: ??145 - 180 pg/ml ?? Deficient: ? <145 pg/ml Plasma 08/21/2014 12:3 7 PM TEXTILE BROKER Result [facility] Kelly Murphy FAMILY INTERVENTION SPECIALIST LAB BLOOD ORDERABLES Final Result Performing Organization Address City/[facility] Co de Phone Number HISTORICAL RESULTS * DISCHARGE LABORATORY CUMULATIVE REPORT (08/21/2014) Narrative 08/21/2014 Ordered by an unspecified provider. Historical Provider LAB BLOOD ORDERABLES Tahira l Result documented in this encounter Visit Diagnoses Diagnosis Disturbance of skin sensation Cervical spondylosis without myelopathy documented in this encounter Care Teams Gis Application Developer Relationship Specialty Start Date End Date Kelly Murphy, FAMILY INTERVENTION SPECIALIST [address] [address] PCP - General 08/20/14 12/21/16 documented as of this encounter
--- OUTSIDE RECORDS SUMMARY | 2024-08-10 02:13 | XMS_ITS | Encounter Summary ---
Author Organization [facility] Facility Care Team Providers Care Cone Winder Name Role Phone Kelly Olson NP Primary Care Provider +1- [phone] Encounter Details Date Type Department Care Team (Late st Contact Info) Description 04/29/2015 10:10 AM CDT - 04/29/2015 4:00 PM CDT Hospital Encounter [facility] CLINCONV [place], Rd Kathleen MD [address] [facility] [place] [address] Carpal tunnel syndrome; Lesion of ulnar nerve Social History Tobacco Use Types Packs/Day Years Used Date Smoking Tobacco: Never Alcohol Use Standard Drinks/Week Comments Yes 0 (1 standard drink = 0.6 oz pur e alcohol) Comments Unknown Sex and Gender Information Value Date Recorded Sex Assigned at Not on file Legal Sex Female 1:09 AM 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 Surgeon: Rd Chance M.D. Dictating: Rd Chance M.D. Service Dt: 04/29/2015 OPERATIVE REPORT FIRST ART HISTORIAN: Parviz Galvez MD ANESTHESIA: General. PREOPERATIVE DIAGNOSIS [...] the entire case. Electronically Signed By Rd hCance M.D. 05/08/2015 07:[address] Chance M.D[address] [facility]/douglas #[id number] Editing MT: TD: 04/29/2015 13:28:00 cc: Orthopedic Billing Rd Chance M.D. documented in this encounter Plan of Treatment Not on file documented as of this encounter Visit Diagnoses Diagnosis Carpal tunnel syndrome Lesion of ulnar nerve documented in this encounter Care Teams Cone Winder Relationship Specialty [place] [address] [place] [address] PCP - General 08/20/14 12/21/16 documented as of this encounter
--- OUTSIDE RECORDS SUMMARY | 2024-08-10 02:13 | XMS_ITS | Encounter Summary ---
Author Organization [facility] Healthcare Address [address] [place] [address] Care Team Providers Care Plodding Operator Name Role Phone Kelly Olson NP Primary Care Provider +1- [phone] Encounter Details Date Type Department Care Team (Late st Contact Info) Description 10/25/2015 4:38 PM CDT - 10/25/2015 11:59 PM CDT Hospital Encounter [place] [address] [address] [place] [address] [address] Hypothyroidism Social History Tobacco Use Types Packs/Day Years Used Date Smoking Tobacco: Never Alcohol Use Standard Drinks/Week Comments Yes 0 (1 standard drink = 0.6 oz pur e alcohol) Comments Unknown Sex and Gender Information Value Date Recorded Sex Assigned at Not on file 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
--- OUTSIDE RECORDS SUMMARY | 2024-08-10 02:13 | XMS_ITS | Encounter Summary ---
Author Organization [facility] Facility Care Team Providers Care Outsoles Channel Opener Name Role Phone Kelly Olson NP Primary Care Provider +1- [phone] Encounter Details Date Type Department Care Team (Late st Contact Info) Description 05/09/2015 - 05/09/2015 11:59 PM CDT Hospital Encounter [facility] CLINCONV Rd Chance MD [address] [place] [address] Social History Tobacco Use Types Packs/Day Years Used Date Smoking Tobacco: Never Alcohol Use Standard Drinks/Week Comments Yes 0 (1 standard drink = 0.6 oz pur e alcohol) Comments Unknown Sex and Gender Information Value Date Recorded Sex Assigned at Not on file Legal Sex Female 1:09 AM TALENT SOURCER Gender Identity Not on file Sexual Orientation Not on file documented as of this encounter Medications at Time of Discharge levothyroxine (SYNTHROID, LEVOTHROID) 150 mcg tablet TAKE 1 TABLET BY MOUTH EVERY DAY 90 2 04/28/2011 03/26/2017 documented as of this encounter Plan of Treatment Not on file documented as of this encounter Visit Diagnoses Not on filedocumented in this encounter Care Teams Outsoles Channel Opener Relationship Specialty [place] [address] [facility] [address] [place] [address] PCP - General 08/20/14 12/21/16 documented as of this encounter
--- OUTSIDE RECORDS SUMMARY | 2024-08-10 02:13 | XMS_ITS | Encounter Summary ---
Author Organization [facility] Facility Care Team Providers Care Chief Human Resources Officer Name Role Phone Kelly Olson NP Primary Care Provider +1- [phone] Encounter Details Date Type Department Care Team (Late st Contact Info) Description 01/17/2016 7:27 AM CDT - 01/17/2016 3:50 PM CDT Hospital Encounter [facility] CLINCONV [place], Bethany Gardner MD [address] [facility] [address] [place] [address] Other specified disorders of breast; Benign neoplasm of peripheral nerves and autonomic nervous system, unspecified; Hypertrophy of breast; [facility] drug therapy Social History Tobacco Use Types Packs/Day Years Used Date Smoking Tobacco: Never Alcohol Use Standard Drinks/Week Comments Yes 0 (1 standard drink = 0.6 oz pur e alcohol) Comments Unknown Sex and Gender Information Value Date Recorded Sex Assigned at Not on file 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 Surgeon: Bethany Corcoran M.D. Dictating: Bethany Corcoran M.D. Service Dt: 01/17/2016 OPERATIVE REPORT Facility: [facility] FIRST CASHIER PARKING LOT: Dr. Dottie Huerta SECOND/THIRD CASHIER PARKING LOT: ANESTHESIA: Monitored anesthesia care and local. PREOPERATIVE [...] 01:15 PM CDT Bethany Corcoran M.D. A[facility]:sp #[id number] Editing MT: TD: 01/19/2016 02:58 PM documented [...] agrees with it. ACC# ??Date Time ??Exam [id number] Jan 17, 2016 08:51:00 [facility] [address] Breast Localz Mamm Gd L [id number] Jan 17, 2016 11:35:00 [facility] [address] Rad Exam Surgical Specimen L EXAMINATION: ?? [...] throughout the entire procedure. Dr. Engle (diagnostic vice president of brand management) also participated in this examination. IMPRESSION: ?? Successful wire localization of the area of interest within the LEFT breast utilizing digital mammographic guidance. Requested By: Dictated By: ?? TERESA ENGLE M.D. ??on Jan 17 2016 11:58A This document has been electronically signed by: ARLEY MORA M.D. on Jan 17 2016 ??4:17P [id number] Procedure Note Provider, MD Anais - 11/28/2016 ARLEY MORA M.D. TERESA ENGLE M.D. FINAL REPORT The radiology attending physician has personally reviewed this study, and has reviewed and/or edited this written report and agrees with it. ACC# Date Time Exam [id number] Jan 17, 2016 08:51:00 [facility] [address] Breast Localz Mamm Gd L [id number] Jan 17, 2016 11:35:00 [facility] [place] [address] Rad Exam Surgical Specimen L EXAMINATION: LEFT [...] throughout the entire procedure. Dr. Engle (diagnostic vice president of brand management) also participated in this examination. IMPRESSION: Successful wire localization of the area of interest within the LEFT breast utilizing digital mammographic guidance. Requested By: Dictated By: TERESA ENGLE M.D. on Jan 17 2016 11:58A This document has been electronically signed by: ARLEY MORA M.D. on Jan 17 2016 4:17P [id number] us Historical Provider MD MCMANUS MAMMO PROCEDURES [...] agrees with it. ACC# ??Date Time ??Exam [id number] Jan 17, 2016 08:51:00 [facility] [address] Breast Localz Mamm Gd L [id number] Jan 17, 2016 11:35:00 [facility] [address] Rad Exam Surgical Specimen L EXAMINATION: ?? [...] throughout the entire procedure. Dr. Engle (diagnostic vice president of brand management) also participated in this examination. IMPRESSION: ?? Successful wire localization of the area of interest within the LEFT breast utilizing digital mammographic guidance. Requested By: Dictated By: ?? TERESA ENGLE M.D. ??on Jan 17 2016 11:58A This document has been electronically signed by: ARLEY MORA M.D. on Jan 17 2016 ??4:17P [id number] Procedure Note Provider, MD Anais - 11/28/2016 ARLEY MORA M.D. TERESA ENGLE M.D. FINAL REPORT The radiology attending physician has personally reviewed this study, and has reviewed and/or edited this written report and agrees with it. ACC# Date Time Exam [id number] Jan 17, 2016 08:51:00 [facility] [address] Breast Localz Mamm Gd L [id number] Jan 17, 2016 11:35:00 [facility] [address] Rad Exam Surgical Specimen L EXAMINATION: LEFT [...] throughout the entire procedure. Dr. Engle (diagnostic vice president of brand management) also participated in this examination. IMPRESSION: Successful wire localization of the area of interest within the LEFT breast utilizing digital mammographic guidance. Requested By: Dictated By: TERESA ENGLE M.D. on Jan 17 2016 11:58A This document has been electronically signed by: ARLEY MORA M.D. on Jan 17 2016 4:17P [id number] us Historical Provider IMLisandro MAMMO PROCEDURES Tahira l Result * Surgical pathology (01/17/2016) Narrative 01/17/2016 Ordered by an unspecified provider. us Historical Provider LAB PATHOLOGY ORDERABLES Final Result documented in this encounter Visit Diagnoses Diagnosis Other specified disorders of breast Benign neoplasm of peripheral nerves and autonomic nervous system, unspecified Hypertrophy of breast Other terminal gauger (current) drug therapy documented in this encounter Care Teams Chief Human Resources Officer Relationship Specialty [place] [address] [address] PCP - General 08/20/14 12/21/16 documented as of this encounter
--- OUTSIDE RECORDS SUMMARY | 2024-08-10 02:13 | XMS_ITS | Encounter Summary ---
Author Organization [facility] Medical Group Address [address] [facility] [address] [place] [address] Care Team Providers Care Paratransit Operator Name Role Phone Marco A Agosto MD Primary Care Provider + -[phone] Reason for Referral * Diagnostic Imaging (Routine) - Closed Specialty Diagnoses / Procedures Referred By Contac t Referred To Contact Diagnoses Right upper quadrant pain Procedures US Abdomen Limited Marco A Agosto MD Phone: tel: fax: Referral ID Status Reason Start Date Expiration Date Visits Re quested Visits Authorized [id number] Closed 01/20/2017 07/19/2017 1 1 Reason for Visit * Reason Comments Abdominal Pain c/o cramping, bloati ng, x 3 weeks Encounter Details Date Type Department Care Team (Late st Contact Info) Description 01/20/2017 2:15 PM CDT Office Visit [facility] at [facility] [address] [facility] [address] [place] [address] Marco A Agosto MD [address] [place] [address] [address] [place] [address] Right upper quadrant pain (Primary [...] on file 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 HX OTHER MEDICAL 2008 C section; Comments: [facility] 04/06/2014 - ??? HX OTHER MEDICAL 05/2013 l4/l5 dissection; Comments: [facility] 04/06/2014 - ??? HX OTHER MEDICAL 2008 Tubaligation; Comments: [facility] 04/06/2014 - ??? HX OTHER MEDICAL [...] OF EXAM: ??Jan 25 2017 11:33AM Acc#: ??[id number] ??EUS [id number] - US RUQ ?? DIAGNOSIS: [...] Electronically signed by: Shreyas Barger M.D. ? INFORMATION TECHNOLOGY MANAGER: ??PSC TRANSCRIBE DATE/TIME: ??Jan 25 2017 ??2:18P RADIOLOGIST: ??SHREYAS BARGER M.D. ??READ ON: ??Jan 25 2017 ??2:22P ORDERING DR: MARCO A AGOSTO M.D. ? THIS DOCUMENT HAS BEEN ELECTRONICALLY SIGNED BY: ??PARUL Perez, SHREYAS ??ON: ??Jan 25 2017 ??2:18P Attending: ??ROBB, ??MARCO A Requesting: ??ROBB, ??MARCO A Requesting Fax: ??[phone] Attending Fax: ??[phone] Attending ID: ??[id number] Requesting ID: ??[id number] Report To 1 ID: ?? Report To 1 Name: ??, ?? Report To 1 FAX: ??-- Report To 2 ID: ?? Report To 2 Name: ??, ?? Report To 2 FAX: ??-- NextGen Order #: ??[id number] Procedure Note Miscellaneous, Not In File / Provider, MD Anais - 01/25/2017 DATE OF EXAM: Jan 25 2017 11:33AM Acc#: [id number] EUS [id number] - US RUQ DIAGNOSIS: RIGHT [...] study. Electronically signed by: Shreyas Barger M.D. INFORMATION TECHNOLOGY MANAGER: PSC TRANSCRIBE DATE/TIME: Jan 25 2017 2:18P RADIOLOGIST: SHREYAS BARGER M.D. READ ON: Jan 25 2017 2:22P ORDERING DR: MARCO A AGOSTO M.D. THIS DOCUMENT HAS BEEN ELECTRONICALLY SIGNED BY: SHREYAS BARGER M.D. ON: Jan 25 2017 2:18P Attending: MARCO A AGOSTO Requesting: MARCO A AGOSTO Requesting Attending Attending ID: [id number] Requesting ID: [id number] Report To 1 ID: Report To 1 Name: , Report To 1 FAX: -- Report To 2 ID: Report To 2 Name: , Report To 2 FAX: -- NextGen Order #: [id number] us Marco A Agosto MD IMG US [...] ORDERABLES Tahira l Result Performing Organization Address City/[facility]/ZIP Co de Phone Number [place] [address] Department [employer] [place] [address] * Comprehensive metabolic panel (01/20/2017 [...] ORDERABLES Tahira l Result Performing Organization Address City/[facility]/ZIP Co de Phone Number [place] [address] Department [place] [address] documented in this encounter Visit [...] documented as of this encounter Care Teams Paratransit Operator Relationship Specialty Start [place] [address] [place] [address] PCP - General 12/22/16 03/14/17 documented as of this encounter
--- OUTSIDE RECORDS SUMMARY | 2024-08-10 02:13 | XMS_ITS | Encounter Summary ---
Author Organization [facility] Facility Care Team Providers Care Maintenance Leader Name Role Phone Kelly Olson NP Primary Care Provider +1- [phone] Encounter Details Date Type Department Care Team (Late st Contact Info) Description 10/19/2014 - 10/19/2014 11:59 PM CDT Hospital [facility] [place] [address] [facility] [address] [place] [address] Social History Tobacco Use Types Packs/Day Years Used Date Smoking Tobacco: Never Alcohol Use Standard Drinks/Week Comments Yes 0 (1 standard drink = 0.6 oz pur e alcohol) Comments Unknown Sex and Gender Information Value Date Recorded Sex Assigned at Not on file 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
--- OUTSIDE RECORDS SUMMARY | 2024-08-10 02:13 | XMS_ITS | Encounter Summary ---
Author Organization [facility] Medical Group Address [address] [facility] [address] [place] [address] Care Team Providers Care Cordwood Cutter Helper Name Role Phone Brittani Agosto MD Primary Care Provider +1 -[phone] Encounter Details Date Type Department Care Team (Late st Contact Info) Description 02/17/2017 Telephone [facility] [address], [place] [address] Deanne Maher MA Social History Tobacco Use Types Packs/Day Years Used Date Smoking Tobacco: Never Smokeless Tobacco: Never Alcohol Use Standard Drinks/Week Comments Yes 0 (1 standard drink = 0.6 oz pur e alcohol) Comments No Sex and Gender Information Value Date Recorded Sex Assigned at Not on file 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
--- OUTSIDE RECORDS SUMMARY | 2024-08-10 02:13 | XMS_ITS | Encounter Summary ---
Author Organization [facility] Facility Care Team Providers Care Electric Relay Tester Name Role Phone Kelly Olson NP Primary Care Provider +1- [phone] Encounter Details Date Type Department Care Team (Late st Contact Info) Description 10/11/2014 5:57 AM CDT - 10/11/2014 4:00 PM CDT Hospital Encounter [facility] CLINCONV Rd Chance MD [address] [facility] [place] [address] Carpal tunnel syndrome Social History Tobacco Use Types Packs/Day Years Used Date Smoking Tobacco: Never Alcohol Use Standard Drinks/Week Comments Yes 0 (1 standard drink = 0.6 oz pur e alcohol) Comments Unknown Sex and Gender Information Value Date Recorded Sex Assigned at Not on file Legal Sex Female 1:09 AM 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 Surgeon: Rd Chance M.D. Dictating: Rd Chance M.D. Service Dt: 10/11/2014 OPERATIVE REPORT FIRST SENIOR REACTOR OPERATOR: Peter Gonsales MD ANESTHESIA: [place] block. PREOPERATIVE [...] above information. We then put up the [place] block and were able to start our [...] P Rd Chance M.D. [facility]/cxl #[id number] Editing MT: TD: 10/11/2014 11:33:00 cc: Orthopedic Billing Rd Chance M.D. documented in this encounter Plan of Treatment Not on file documented as of this encounter Visit Diagnoses Diagnosis Carpal tunnel syndrome documented in this encounter Care Teams Electric Relay Tester Relationship Specialty [place] [address] [address] PCP - General 08/20/14 12/21/16 documented as of this encounter
--- OUTSIDE RECORDS SUMMARY | 2024-08-10 02:13 | XMS_ITS | Encounter Summary ---
Author Organization [facility] Medical Group Address [address] [facility] [address] [place] [address] Care Team Providers Care Mud Jack Nozzleman Name Role Phone Brittani Agosto MD Primary Care Provider +1 -[phone] Reason for Visit * Reason Comments Abdominal Pain Bloated Nausea Encounter Details Date Type Department Care Team (Late st Contact Info) Description 02/17/2017 11:00 AM CDT Office Visit [facility] [address] [place] [address] [address] [address] [place] Zazueta [place] [id number] [place] [address] [address] [place] [address] Bloating (Primary Dx); Epigastric pain; Diarrhea, unspecified type Social History Tobacco Use Types Packs/Day Years Used Date Smoking Tobacco: Never Smokeless Tobacco: Never Alcohol Use Standard Drinks/Week Comments Yes 0 (1 standard drink = 0.6 oz pur e alcohol) Comments No Sex and Gender Information Value Date Recorded Sex Assigned at Not on file Legal Sex Female 1:09 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 HX OTHER MEDICAL 2008 C section; Comments: [facility] 04/06/2014 - ??? HX OTHER MEDICAL 05/2013 l4/l5 dissection; Comments: [facility] 04/06/2014 - ??? HX OTHER MEDICAL 2008 Tubaligation; Comments: [facility] 04/06/2014 - ??? HX OTHER MEDICAL [...] TTG IgA (02/17/2017 2:41 PM CDT) Pathologist [facility] TTG ab, IgA <1.2 <4.0 (Negative) units/mL EDGAR Comment:Test Performed by: [place] [address] Blood specimen (specimen) 02/17/2017 2:41 PM CDT 02/17/2017 2:41 PM CDT Jennifer Zazueta MD LAB BLOOD ORDERABLES nal Result [facility] [address] [facility] Department [place] [address] * CRP (02/17/2017 2:41 PM CDT) Pathologist [facility] hsCRP 1.8 0.0 - 2.9 mg/L EDGAR [...] ORDERABLES Fi nal Result Performing Organization Address [facility] Co de Phone Number [facility] [address] [place] [address] * Amylase (02/17/2017 2:41 PM CDT) Amylase 50 35 - 100 Units/L [facility] Blood specimen (specimen) 02/17/2017 2:41 PM CDT 02/17/2017 2:41 PM CDT Jennifer Zazueta MD LAB BLOOD ORDERABLES Fi nal Result Performing Organization Address [facility] de Phone Number [facility] [address] [place] [address] documented in this encounter Visit Diagnoses Diagnosis Bloating- Primary Flatulence, eructation, and gas pain Epigastric pain Abdominal pain, epigastric Diarrhea, unspecified type documented in this encounter Historical Medications * This list may reflect changes made after this encounter. famotidine (PEPCID) 20 mg tablet Take 20 mg by mouth daily. 05/15/2019 added in this encounter Care Teams Mud Jack Nozzleman Relationship Specialty [place] [address] [address] PCP - General 12/22/16 03/14/17 documented as of this encounter
--- OUTSIDE RECORDS SUMMARY | 2024-08-10 02:13 | XMS_ITS | Encounter Summary ---
Author Organization [facility] Facility Care Team Providers Care Cement Gun Operator Name Role Phone Kelly Olson NP Primary Care Provider +1- [phone] Encounter Details Date Type Department Care Team (Late st Contact Info) Description 03/30/2014 - 03/30/2014 11:59 PM CDT Hospital Encounter [facility] CL[facility] Kelly Irizarry MD [address] [facility] MSC [phone] [place] [address] Other breast disorders Social History Tobacco Use Types Packs/Day Years Used Date Smoking Tobacco: Never Alcohol Use Standard Drinks/Week Comments Yes 0 (1 standard drink = 0.6 oz pur e alcohol) Comments Unknown Sex and Gender Information Value Date Recorded Sex Assigned at Not on file Legal Sex Female 1:09 AM TROLLEY CLEANER Gender Identity Not on file Sexual Orientation [...] M.D. FINAL REPORT ACC# ??Date Time ??Exam [id number] Mar 30, 2014 14:52:00 [facility] [id number] Consult Out Films (read) EXAMINATION: ?? READING OF OUTSIDE IMAGING EXAMINATION - left unilateral diagnostic full-field digital mammogram on 03/28/2004 (4 images) is from [facility] and bilateral full-field digital screening mammogram with tomosynthesis from [facility] dated 02/16/2014 (4 images). DATE OF INTERPRETATION: [...] images may or may not represent the [place] source data set and thus may contain changes which may lower the sensitivity in the second opinion interpretation. Requested By: Dictated By: ?? LORIN DAVIS M.D. ??on Mar 30 2014 ??3:09P This document has been electronically signed by: LORIN DAVIS M.D. on Mar 30 2014 ??3:09P Procedure Note Provider, MD Anais - 11/28/2016 LORIN DAVIS M.D. FINAL REPORT ACC# Date Time Exam [id number] Mar 30, 2014 14:52:00 [facility] [id number] Consult Out Films (read) EXAMINATION: READING OF OUTSIDE IMAGING EXAMINATION - left unilateral diagnostic full-field digital mammogram on 03/28/2004 (4 images) is from [facility] and bilateral full-field digital screening mammogram with tomosynthesis from [facility] dated 02/16/2014 (4 images). DATE OF INTERPRETATION: [...] images may or may not represent the [place] source data set and thus may contain [...] disorders documented in this encounter Care Teams Cement Gun Operator Relationship Specialty [place] [address] [address] PCP - General 09/15/12 08/19/14 documented as of this encounter
--- OUTSIDE RECORDS SUMMARY | 2024-08-10 02:13 | XMS_ITS | Encounter Summary ---
Author Organization [facility] Facility Care Team Providers Care Rubber Covering Machine Operator Name Role Phone Kelly Olson NP Primary Care Provider +1- [phone] Encounter Details Date Type Department Care Team (Late st Contact Info) Description 04/03/2014 - 04/03/2014 11:59 PM CDT Hospital Encounter [facility] CLINCON[facility] Kelly Irizarry MD [address] [facility] MSC [phone] [place], [place] [id number] Other breast disorders Social History Tobacco Use Types Packs/Day Years Used Date Smoking Tobacco: Never Alcohol Use Standard Drinks/Week Comments Yes 0 (1 standard drink = 0.6 oz pur e alcohol) Comments Unknown Sex and Gender Information Value Date Recorded Sex Assigned at Not on file Legal Sex Female 1:09 AM CHANNEL SPECIALIST Gender Identity Not on file Sexual [...] agrees with it. ACC# ??Date Time ??Exam [id number] Apr 03, 2014 09:12:00 [facility] [id number] Sono Breast (Unilateral) L EXAMINATION: ?? LEFT [...] been scheduled to return to the Breast [facility] for a stereotactic-guided core needle biopsy [...] this written report and agrees with it. [facility]# Date Time Exam [id number] Apr 03, 2014 09:12:00 [facility] [id number] Sono Breast (Unilateral) L EXAMINATION: LEFT BREAST [...] has been scheduled to return to the [facility] for a stereotactic-guided core needle biopsy of [...] disorders documented in this encounter Care Teams Rubber Covering Machine Operator Relationship Specialty [place] [address] [address] PCP - General 09/15/12 08/19/14 documented as of this encounter
--- OUTSIDE RECORDS SUMMARY | 2024-08-10 02:13 | XMS_ITS | Encounter Summary ---
Author Organization [facility] Healthcare Address [address] [place] [address] Care Team Providers Care Lifestyle Coordinator Name Role Phone Brittani Agosto MD Primary Care Provider +1 -[phone] Encounter Details Date Type Department Care Team (Latest Contact Info) Description 01/20/2017 3:52 PM CDT - 01/20/2017 11:59 PM CDT Hospital Encounter [place] [address] [address] Discharge Disposition: Discharge to home or self care Social History Tobacco Use Types Packs/Day Years Used Date Smoking Tobacco: Never Smokeless Tobacco: Never Alcohol Use Standard Drinks/Week Comments Yes 0 (1 standard drink = 0.6 oz pur e alcohol) Comments No Sex and Gender Information Value Date Recorded Sex Assigned at Not on file Legal Sex Female 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
--- OUTSIDE RECORDS SUMMARY | 2024-08-10 02:13 | XMS_ITS | Encounter Summary ---
Author Organization [facility] Healthcare Address [address] [place] [address] Care Team Providers Care Furnace Filler Name Role Phone Brittani Agosto MD Primary Care Provider +1 -[phone] Encounter Details Date Type Department Care Team (Latest Contact Info) Description 12/22/2016 8:17 AM CDT - 12/22/2016 11:59 PM CDT Hospital Encounter [place] [address] [address] [place] [address] [address] Discharge Disposition: Discharge to home or self care Social History Tobacco Use Types Packs/Day Years Used Date Smoking Tobacco: Never Alcohol Use Standard Drinks/Week Comments Yes 0 (1 standard drink = 0.6 oz pur e alcohol) Comments Unknown Sex and Gender Information Value Date Recorded Sex Assigned at Not on file Legal Sex Female 1:09 AM BLUEPRINT TRACER Gender Identity Not on file Sexual Orientation [...] CDT Narrative 12/22/2016 1:46 PM CDT Acc#: ??[id number] JENNIFER 0047 - Screening Mamm W Connor [...] TECHNOLOGIST: ?? JAY RANDLE, TECHNOLOGIST MEDICAL IMAGING AIR INTERCEPT CONTROLLER SUPERVISOR: ??[facility] TRANSCRIBE DATE/TIME: ??Dec 22 2016 10:01A RADIOLOGIST: ??JESSICA PENA M.D. ??READ ON: ??Dec 22 2016 10:05A ORDERING DR: KELLY MURPHY N.P. ? THIS DOCUMENT HAS BEEN ELECTRONICALLY SIGNED BY: ??BECKY Perez, JESSICA ??ON: ??Dec 22 2016 10:01A Attending: ??JEFFREY, ??KELLY Requesting: ??JEFFREY, ??KELLY Requesting Fax: ??[phone] Attending Fax: ??[phone] Attending ID: ??[id number] Requesting ID: ??[id number] Report To 1 ID: ?? Report To 1 Name: ??, ?? Report To 1 FAX: ??-- Report To 2 ID: ?? Report To 2 Name: ??, ?? Report To 2 FAX: ??-- NextGen Order #: ?? Procedure Note Miscellaneous, Not In File / Provider, MD Anais - 12/27/2016 Acc#: [id number] JENNIFER 0047 - Screening Mamm W Connor Bi DATE OF EXAM: Dec 22 2016 8:46AM DIAGNOSIS: ENCOUNTER FOR [facility] SCREENING FOR MALIGNAN CLINICAL HISTORY: SCREENING [...] M.D. TECHNOLOGIST: JAY RANDLE TECHNOLOGIST MEDICAL IMAGING AIR INTERCEPT CONTROLLER SUPERVISOR: [facility] TRANSCRIBE DATE/TIME: Dec 22 2016 10:01A RADIOLOGIST: JESSICA PENA M.D. READ ON: Dec 22 2016 10:05A ORDERING DR: KELLY MURPHY N.P. THIS DOCUMENT HAS BEEN ELECTRONICALLY SIGNED BY: JESSICA PENA M.D. ON: Dec 22 2016 10:01A Attending: KELLY MURPHY Requesting: KELLY MURPHY Requesting Attending Attending ID: [id number] Requesting ID: [id number] Report To 1 ID: Report To 1 Name: , Report To 1 FAX: -- Report To 2 ID: Report To 2 Name: , Report To 2 FAX: -- NextGen Order #: us Not In File Miscellaneous IMG MAMMO PROCEDURES F inal Result documented in this encounter Visit Diagnoses Not on filedocumented in this encounter Care Teams Furnace Filler Relationship Specialty [place] [address] [place] [address] PCP - General 12/22/16 03/14/17 documented as of this encounter
--- OUTSIDE RECORDS SUMMARY | 2024-08-10 02:13 | XMS_ITS | Encounter Summary ---
Author Organization [facility] Healthcare Address [address] [place] [address] Care Team Providers Care Oyster Shipper Name Role Phone Eagle Murphy NP Primary Care Provider +1- [phone] Encounter Details Date Type Department Care Team (Late st Contact Info) Description 09/03/2014 4:38 PM ROUTER OPERATOR - 09/03/2014 11:59 PM [facility] Hospital [place] [address] [address] [place] [address] [id number] Pain in joint, shoulder region Social History Tobacco Use Types Packs/Day Years Used Date Smoking Tobacco: Never Alcohol Use Standard Drinks/Week Comments Yes 0 (1 standard drink = 0.6 oz pur e alcohol) Comments Unknown Sex and Gender Information Value Date Recorded Sex Assigned at Not on file Legal Sex Female 1:09 AM ROUTER OPERATOR Gender Identity Not on file Sexual [...] JOINT W CONTRAST Routine 09/03/2014 5:37 PM ROUTER OPERATOR documented in this encounter Results * MRI Upper Extremity Joint W Contrast (09/03/2014 5:37 PM ROUTER OPERATOR) Anatomical Region Laterality Modality Upper Extremities N/A Magnetic Reson ance 09/03/2014 5:37 PM ROUTER OPERATOR Narrative 09/04/2014 12:36 PM ROUTER OPERATOR MRI SHOULDER - RIGHT Acc#: ??[id number] DATE OF EXAM: ??Sep ??2014 CLINICAL HISTORY: [...] Fax: ??-- Attending ID: ?? Requesting ID: ??[id number] Report To 1 ID: ??[id number] Report To 1 Name: ??EAGLE MURPHY Report To 1 FAX: ??-- NextGen Order #: Procedure Note Provider, MD Anais - 11/28/2016 MRI SHOULDER - RIGHT Acc#: [id number] DATE OF EXAM: Sep 03 2014 CLINICAL [...] Attending Fax: -- Attending ID: Requesting ID: [id number] Report To 1 ID: [id number] Report To 1 Name: EAGLE MURPHY Report To 1 FAX: -- NextGen Order #: Historical Provider MD MCMANUS MRI PROCEDURES Final Result documented in this encounter Visit Diagnoses Diagnosis Pain in joint, shoulder region documented in this encounter Care Teams Oyster Shipper Relationship Specialty [place] [address] [place] [address] PCP - General 08/20/14 12/21/16 documented as of this encounter
--- OUTSIDE RECORDS SUMMARY | 2024-08-10 02:13 | XMS_ITS | Encounter Summary ---
Author Organization [facility] Facility Care Team Providers Care Land Leasing Examiner Name Role Phone Kelly Olson NP Primary Care Provider +- [phone] Encounter Details Date Type Department Care Team (Latest Contact Info) Description 12/10/2015 - 12/10/2015 11:59 PM T Hospital Encounter [facility] Kelly Olson TWITCHELL OPERATOR [address] [place] [address] Fibroadenosis of left breast Social History Tobacco Use Types Packs/Day Years Used Date Smoking Tobacco: Never Alcohol Use Standard Drinks/Week Comments Yes 0 (1 standard drink = 0.6 oz pur e alcohol) Comments Unknown Sex and Gender Information Value Date Recorded Sex Assigned at Not on file Legal Sex Female 1:09 AM EXECUTIVE RELATIONS SPECIALIST Gender Identity Not on file Sexual [...] agrees with it. ACC# ??Date Time ??Exam [id number] December 10, 2015 14:03:00 [facility] [address] Breast Bx Incl Loc Sono L [id number] December 10, 2015 14:17:00 [facility] [id number] Mamm Unilat Post Bx Films L ?? Technologist(s): Brenda Mabry; ; ACC# ??Date Time ??Exam [id number] December 10, 2015 14:03:00 [facility] [address]77 Breast Bx Incl Loc Sono L [id number] December 10, 2015 14:17:00 [facility] [id number] Mamm Unilat Post Bx Films L ?? [...] Roya Willis, MSN ACNS-BC of the Breast [facility] on 12/17/15, and is scheduled to see [...] ZAMORA M.D. on Dec 23 2015 10:38A [id number] Procedure Note Provider, MD Anais - 11/28/2016 MARIA ZAMORA M.D. FINAL REPORT The radiology attending physician has personally reviewed this study, and has reviewed and/or edited this written report and agrees with it. ACC# Date Time Exam [id number] December 10, 2015 14:03:00 [facility] 59923 Breast Bx Incl Loc Sono L [id number] December 10, 2015 14:17:00 [facility] 38256Y Mamm Unilat Post Bx Films L Technologist(s): Brenda Mabry; ; ACC# Date Time Exam [id number] December 10, 2015 14:03:00 C [address]6711 Breast Bx Incl Loc Sono L [id number] December 10, 2015 14:17:00 [facility] 96334D Mamm Unilat Post Bx Films L Technologist(s): [...] Pathology pending. ADDENDUM #1 by Roya Willis, [facility] ACNS-BC for Dr. Maria Zamora on 12/19/15 [...] recommendations by STEVEN Zafar ACNS-BC of the [facility] on 12/17/15, and is scheduled to see Dr. Bethany Corcoran for surgical consultation on 12/19/15. Requested By: Dictated By: TARYN RODRIGUEZ M.D. on Dec 10 2015 2:19P This document has been electronically signed by: MARIA ZAMORA M.D. on Dec 10 2015 4:27P Addendum Dictated by: ROYA WILLIS [facility] on Dec 19 2015 12:45P This Addendum has been electronically signed by: MARIA ZAMORA M.D. on Dec 23 2015 10:38A [id number] us Historical Provider MD MCMANUS MAMMO PROCEDURES [...] agrees with it. ACC# ??Date Time ??Exam [id number] December 10, 2015 14:03:00 [facility] [address]7725 Breast Bx Incl Loc Sono L [id number] December 10, 2015 14:17:00 [facility] [id number] Mamm Unilat Post Bx Films L ?? Technologist(s): Brenda Mabry; ; ACC# ??Date Time ??Exam [id number] December 10, 2015 14:03:00 [facility] 10057 Breast Bx Incl Loc Sono L [id number] December 10, 2015 14:17:00 [facility] 63149N Mamm Unilat Post Bx Films L ?? [...] recommendations by STEVEN Zafar ACNS-BC of the [facility] on 12/17/15, and is scheduled to see [...] ZAMORA M.D. on Dec 23 2015 10:38A [id number] Procedure Note Provider, MD Anais - 11/28/2016 MARIA ZAMORA M.D. FINAL REPORT The radiology attending physician has personally reviewed this study, and has reviewed and/or edited this written report and agrees with it. ACC# Date Time Exam [id number] December 10, 2015 14:03:00 [facility] 13139 Breast Bx Incl Loc Sono L [id number] December 10, 2015 14:17:00 [facility] 90917R Mamm Unilat Post Bx Films L Technologist(s): Brenda Mabry; ; ACC# Date Time Exam [id number] December 10, 2015 14:03:00 [facility] [address]252 Breast Bx Incl Loc Sono L [id number] December 10, 2015 14:17:00 [facility] 91466Y Mamm Unilat Post Bx Films L Technologist(s): [...] Pathology pending. ADDENDUM #1 by STEVEN Zafar [facility]- for Dr. Maria Zamora on 12/19/15 at [...] by STEVEN Zafar ACNS-BC of the Breast [facility] on 12/17/15, and is scheduled to see [...] ZAMORA M.D. on Dec 23 2015 10:38A [id number] us Historical Provider IMG US PROCEDURES Final R esult * Surgical pathology (12/10/2015) Narrative 12/10/2015 Ordered by an unspecified provider. Historical Provider LAB PATHOLOGY ORDERABLES Final Result documented in this encounter Visit Diagnoses Diagnosis Fibroadenosis of left breast documented in this encounter Care Teams Land Leasing Examiner Relationship Specialty [place] [address] [place] [id number] PCP - General 08/20/14 12/21/16 documented as of this encounter
--- OUTSIDE RECORDS SUMMARY | 2024-08-10 02:13 | XMS_ITS | Encounter Summary ---
Author Organization [facility] Healthcare Address [address] [place] [address] Care Team Providers Care Diesel Truck Mechanic Name Role Phone Brittani Agosto MD Primary Care Provider +1 -[phone] Encounter Details Date Type Department Care Team (Late st Contact Info) Description 02/17/2017 2:29 PM CDT - 02/17/2017 11:59 PM CDT Hospital Encounter [place] [address] [address] Discharge Disposition: Discharge to home or self care Social History Tobacco Use Types Packs/Day Years Used Date Smoking Tobacco: Never Smokeless Tobacco: Never Alcohol Use Standard Drinks/Week Comments Yes 0 (1 standard drink = 0.6 oz pur e alcohol) Comments No Sex and Gender Information Value Date Recorded Sex Assigned at Not on file Legal Sex Female 1:09 AM ASSOCIATE DENTIST Gender Identity Not on file Sexual Orientation [...] on filedocumented in this encounter Care Teams Diesel Truck Mechanic Relationship Specialty Start [place] [address] [address] PCP - General 12/22/16 03/14/17 documented as of this encounter
--- OUTSIDE RECORDS SUMMARY | 2024-08-10 02:13 | XMS_ITS | Encounter Summary ---
Author Organization [facility] Healthcare Address [address] [place] [address] Care Team Providers Care Farm Crops Teacher Name Role Phone Brittani Agosto MD Primary Care Provider +1 -[phone] Encounter Details Date Type Department Care Team (Late st Contact Info) Description 01/20/2017 4:00 PM CDT Lab [address] [address] Right upper quadrant pain Social History Tobacco Use Types Packs/Day Years Used Date Smoking Tobacco: Never Smokeless Tobacco: Never Alcohol Use Standard Drinks/Week Comments Yes 0 (1 standard drink = 0.6 oz pur e alcohol) Comments No Sex and Gender Information Value Date Recorded Sex Assigned at Not on file Legal Sex Female 1:09 AM SECURITY RESEARCHER Gender Identity Not on file Sexual Orientation [...] ??mL/min/1.73m2 *Relative to young adult level If -Japanese multiply value by 1.16. Estimated glomerular filtration [...] ORDERABLES Tahira l Result Performing Organization Address [facility] Co de Phone Number EDGAR [address] [address] Department [place] [address] * (ABNORMAL) Differential, auto (01/20/2017 [...] Organization Address [facility] de Phone Number EDGAR FLOR [address] [address] Department of Laboratories [place], [place] [id number] * (ABNORMAL) CBC with auto differential (01/20/2017 [...] BLOOD ORDERABLES [place] [address] [address] Department [place] [address] * Comprehensive metabolic panel (01/20/2017 3:57 PM CDT) Pathologist [facility] Sodium 137 135 - 145 mmol/L CERNER [...] LAB BLOOD ORDERABLES Tahira l Result EDGAR [address] [address] Department [place] [address] documented in this encounter Visit Diagnoses Diagnosis Right upper quadrant pain Abdominal pain, right upper quadrant documented in this encounter Care Teams Farm Crops Teacher Relationship Specialty Start [place] [address] [address] PCP - General 12/22/16 03/14/17 documented as of this encounter
--- OUTSIDE RECORDS SUMMARY | 2024-08-10 02:13 | XMS_ITS | Encounter Summary ---
Author Organization [facility] Address [address] [facility] [address] [place] [address] Care Team Providers Care Sales Support Engineer Name Role Phone Brittani Agosto MD Primary Care Provider [phone] Encounter Details Date Type Department Care Team (Late st Contact Info) Description 01/25/2017 Telephone Family Care at [facility] [address] [facility] [address] [place] [address] [place] [address] [facility] [address] [place] [address] Social History Tobacco Use Types Packs/Day Years Used Date Smoking Tobacco: Never Smokeless Tobacco: Never Alcohol Use Standard Drinks/Week Comments Yes 0 (1 standard drink = 0.6 oz pur e alcohol) Comments No Sex and Gender Information Value Date Recorded Sex Assigned at Not on file Legal Sex Female 1:09 AM CLINICAL SCIENCE LIAISON Gender Identity Not on file Sexual Orientation Not on file documented as of this encounter Miscellaneous Notes * Telephone Encounter - Mehdi Tang MA - 01/28/2017 4:27 PM CDT Called and left pt a message to call and schedule an [place] with Dr Mayers. * Telephone Encounter - Mehdi Tang MA - 01/28/2017 1:[address] Mayers [phone] * Telephone Encounter - Brittani Agosto MD [...] filedocumented in this encounter Care Teams Sales Support Engineer Relationship Specialty [place] [address] [address] PCP - General 12/22/16 03/14/17 documented as of this encounter
--- OUTSIDE RECORDS SUMMARY | 2024-08-10 02:13 | XMS_ITS | Encounter Summary ---
Author Organization [facility] Facility Care Team Providers Care Executive Associate Name Role Phone Kelly Olson NP Primary Care Provider +1- [phone] Encounter Details Date Type Department Care Team (Late st Contact Info) Description 04/09/2014 - 04/09/2014 11:59 PM CDT Hospital Encounter [facility] Kelly Irizarry MD [address] [facility] [phone] [place], [place] [id number] Hypertrophy of breast; Fibrosclerosis of breast Social History Tobacco Use Types Packs/Day Years Used Date Smoking Tobacco: Never Alcohol Use Standard Drinks/Week Comments Yes 0 (1 standard drink = 0.6 oz pur e alcohol) Comments Unknown Sex and Gender Information Value Date Recorded Sex Assigned at Not on file 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 ACC# ??Date Time ??Exam [id number] Apr 09, 2014 14:06:00 [facility] 89933 Breast Bx Incl Loc Stereo L [id number] Apr 09, 2014 14:17:00 [facility] 07177N Mamm Unilat Post Bx Films L ACC# ??Date Time ??Exam [id number] Apr 09, 2014 14:06:00 [facility] 46971 Breast Bx Incl Loc Stereo L [id number] Apr 09, 2014 14:17:00 [facility] 46151C Mamm Unilat Post Bx Films L EXAMINATION: [...] entire procedure. Dr. Hammonds (diagnostic vice president marketing & development) and Dr. Cardozo (diagnostic vice president marketing & development) also participated in this examination. ?? IMPRESSION: [...] mammography is recommended, in accordance with the [place] breast cancer screening guidelines. ??The patient was notified of the biopsy results and recommendation by Roya Willis, MSN, ACNS-BC of the [facility] on 04/13/2014. ?? Requested By: [...] agrees with it. ACC# Date Time Exam [id number] Apr 09, 2014 14:06:00 [facility] 70760 Breast Bx Incl Loc Stereo L [id number] Apr 09, 2014 14:17:00 [facility] 83575L Mamm Unilat Post Bx Films L ACC# Date Time Exam [id number] Apr 09, 2014 14:06:00 [facility] 89773 Breast Bx Incl Loc Stereo L [id number] Apr 09, 2014 14:17:00 [facility] 60175W Mamm Unilat Post Bx Films L EXAMINATION: [...] a #11 scalpel blade. A 9 gauge Agolo vacuum-assisted biopsy needle was then advanced through the skin incision to the level of the focal asymmetry of interest from a lateral approach utilizing stereotactic guidance and a total of 6 tissue cores were obtained. A Crystal Clear VisionurMark tissue marker clip was then placed at [...] entire procedure. Dr. Hammonds (diagnostic vice president marketing & development) and Dr. Cardozo (diagnostic vice president marketing & development) also participated in this examination. IMPRESSION: Successful [...] mammography is recommended, in accordance with the [place] breast cancer screening guidelines. The patient was notified of the biopsy results and recommendation by Roya Willis, MSN, ACNS-BC of the [facility] on 04/13/2014. Requested By: Dictated By: LE [...] agrees with it. ACC# ??Date Time ??Exam [id number] Apr 09, 2014 14:06:00 [facility] 59149 Breast Bx Incl Loc Stereo L [id number] Apr 09, 2014 14:17:00 [facility] 82266G Mamm Unilat Post Bx Films L ACC# ??Date Time ??Exam [id number] Apr 09, 2014 14:06:00 [facility] 62822 Breast Bx Incl Loc Stereo L [id number] Apr 09, 2014 14:17:00 [facility] 48829D Mamm Unilat Post Bx Films L EXAMINATION: [...] a #11 scalpel blade. ??A 9 gauge Agolo vacuum-assisted biopsy needle was then advanced through the skin incision to the level of the focal asymmetry of interest from a lateral approach utilizing stereotactic guidance and a total of 6 tissue cores were obtained. A Crystal Clear VisionurMark tissue marker clip was then placed at [...] entire procedure. Dr. Hammonds (diagnostic vice president marketing & development) and Dr. Cardozo (diagnostic vice president marketing & development) also participated in this examination. ?? IMPRESSION: [...] mammography is recommended, in accordance with the [employer] breast cancer screening guidelines. ??The patient was notified of the biopsy results and recommendation by Roya Willis, MSN, ACNS- of the [facility] on 04/13/2014. ?? Requested By: Dictated By: [...] agrees with it. ACC# Date Time Exam [id number] Apr 09, 2014 14:06:00 [facility] 24441 Breast Bx Incl Loc Stereo L [id number] Apr 09, 2014 14:17:00 [facility] 79008Y Mamm Unilat Post Bx Films L ACC# Date Time Exam [id number] Apr 09, 2014 14:06:00 [facility] 58548 Breast Bx Incl Loc Stereo L [id number] Apr 09, 2014 14:17:00 [facility] 04855I Mamm Unilat Post Bx Films L EXAMINATION: [...] a #11 scalpel blade. A 9 gauge Agolo vacuum-assisted biopsy needle was then advanced through [...] entire procedure. Dr. Hammonds (diagnostic vice president marketing & development) and Dr. Cardozo (diagnostic vice president marketing & development) also participated in this examination. IMPRESSION: Successful [...] mammography is recommended, in accordance with the [employer] breast cancer screening guidelines. The patient was notified of the biopsy results and recommendation by Roya Willis, MSN, ACNS-BC of the [facility] on 04/13/2014. Requested By: Dictated By: LE [...] breast documented in this encounter Care Teams Executive Associate Relationship Specialty [place] [address] [address] PCP - General 09/15/12 08/19/14 documented as of this encounter
--- OUTSIDE RECORDS SUMMARY | 2024-08-10 02:13 | XMS_ITS | Encounter Summary ---
Author Organization [facility] Address [address] [facility] [address] [place] [address] Care Team Providers Care Bus Driver Name Role Phone Brittani Agosto MD Primary Care Provider [phone] Reason for Visit * Reason Onset Date Comments Dr. Farah/Nishant Mera 01/22/2017 Encounter Details Date Type Department Care Team (Late st Contact Info) Description 01/22/2017 Telephone Family Care at [facility] [address] [address] [place] [address] [address] [address] 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 documented in this encounter Plan of Treatment Not on file documented as of this encounter Visit Diagnoses Not on filedocumented in this encounter Care Teams Bus Driver Relationship Specialty [place] [address] [address] PCP - General 12/22/16 03/14/17 documented as of this encounter
--- OUTSIDE RECORDS SUMMARY | 2024-08-10 02:13 | XMS_ITS | Encounter Summary ---
Author Organization [facility] Address [address] [facility] [address] [place] [address] Care Team Providers Care Supervisor Electron Tube Processing Name Role Phone Brittani Agosto MD Primary Care Provider [phone] Reason for Visit * Reason Onset Date Comments Rtiny - Test Results 01/27/2017 Encounter Details Date Type Department Care Team (Late st Contact Info) Description 01/27/2017 Telephone Family Care at [facility] [address] [address] [place] [address] [address] Triny - Test Results Social History Tobacco Use Types Packs/Day Years Used Date Smoking Tobacco: Never Smokeless Tobacco: Never Alcohol Use Standard Drinks/Week Comments Yes 0 (1 standard drink = 0.6 oz pur e alcohol) Comments No Sex and Gender Information Value Date Recorded Sex Assigned at Not on file 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
--- OUTSIDE RECORDS SUMMARY | 2024-08-10 02:13 | XMS_ITS | Encounter Summary ---
Author Organization [facility] Healthcare Address [address] [place] [address] Care Team Providers Care Layer Off Name Role Phone Kelly Olson NP Primary Care Provider [phone]- [phone] Encounter Details Date Type Department Care Team (Late st Contact Info) Description 03/28/2014 8:52 AM CDT - 03/28/2014 11:59 PM CDT Hospital Encounter [facility] Kelly Wood MD [address] [facility] [id number] [place] [address] Abnormal mammogram Social History Tobacco Use Types Packs/Day Years Used Date Smoking Tobacco: Never Alcohol Use Standard Drinks/Week Comments Yes 0 (1 standard drink = 0.6 oz pur e alcohol) Comments Unknown Sex and Gender Information Value Date Recorded Sex Assigned at Not on file 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 JAY RANDLE, TECHNOLOGIST MEDICAL IMAGING CARDIOVASCULAR INVASIVE SPECIALIST: ??DM2 TRANSCRIBE DATE/TIME: ??Mar 28 2014 ??8:15P RADIOLOGIST: ??REZA MCNEAL M.D. ??READ ON: ??Mar 28 2014 ??5:13P ORDERING DR: KELLY PARSONS M.D. THIS DOCUMENT HAS BEEN ELECTRONICALLY SIGNED BY: ??REZA MCNEAL M.D. ??ON: ??Mar 28 2014 ??8:45P Requesting Fax: ??[phone] Procedure Note Provider, MD Anais - 11/28/2016 Acc#: [id number] JENNIFER 0049 - Diag Mamm Connor Addl [...] EVALUATION. TECHNOLOGIST: JAY RANDLE, TECHNOLOGIST MEDICAL IMAGING CARDIOVASCULAR INVASIVE SPECIALIST: DM2 TRANSCRIBE DATE/TIME: Mar 28 2014 8:15P [...] unspecified documented in this encounter Care Teams Layer Off Relationship Specialty [place] [address] [address] PCP - General 09/15/12 08/19/14 documented as of this encounter
--- OUTSIDE RECORDS SUMMARY | 2024-08-10 02:13 | XMS_ITS | Encounter Summary ---
Author Organization [facility] Healthcare Address [address] [place] [address] Care Team Providers Care Cover Machine Operator Name Role Phone Kelly Olson NP Primary Care Provider +1- [phone] Encounter Details Date Type Department Care Team (Latest Contact Info) Description 08/28/2014 3:39 PM ALTERNATIVE FINANCING SPECIALIST - 08/28/2014 11:59 PM [facility] Hospital [place] [address] [address] [place] [address] [address] Disturbance of skin sensation; Other nonspecific abnormal [...] on file Legal Sex Female 1:09 AM ALTERNATIVE FINANCING SPECIALIST Gender Identity Not on file Sexual [...] structure documented in this encounter Care Teams Cover Machine Operator Relationship Specialty [place] [address] [place] [address] PCP - General 08/20/14 12/21/16 documented as of this encounter
--- OUTSIDE RECORDS SUMMARY | 2024-08-10 02:13 | XMS_ITS | Encounter Summary ---
Author Organization 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 EDWARD BRADSHAWTECHNOLOGIST MEDICAL IMAGING COLLEGE COACH: ??PW2 TRANSCRIBE DATE/TIME: ??Nov 20 2015 ??8:25P RADIOLOGIST: ??BILLIE SAPP M.D. ??READ ON: ??Nov 20 2015 ??4:33P ORDERING DR: KELLY PARSONS M.D. THIS DOCUMENT HAS BEEN ELECTRONICALLY SIGNED BY: ??BILLIE SAPP M.D. ??ON: ??Nov 21 2015 ??8:42A ? COLLEGE COACH: ??PW2 TRANSCRIBE DATE/TIME: ??Nov 20 2015 ??8:25P RADIOLOGIST: ??BILLIE SAPP M.D. ??READ ON: ??Nov 20 2015 ??4:33P ORDERING DR: KELLY PARSONS M.D. THIS DOCUMENT HAS BEEN ELECTRONICALLY SIGNED BY: ??BILLIE SAPP M.D. ??ON: ??Nov 21 2015 ??8:42A Attending: ??ISSA, ??KELLY Requesting: ??ISSA, ??KELLY Requesting Fax: ??[phone] Attending Fax: ??[phone] Attending ID: ??[id number] Requesting ID: ??[id number] Report To 1 ID: ?? Report To 1 Name: ??, ?? Report To 1 FAX: ??-- Report To 2 ID: ?? Report To 2 Name: ??, ?? Report To 2 FAX: ??-- NextGen Order #: ?? Procedure Note Provider, MD Anais - 11/28/2016 Acc#: [id number] JENNIFER 0017 - Screening Mamm BI DATE [...] Dr. Sapp TECHNOLOGIST: EDWARD BRADSHAWTECHNOLOGIST MEDICAL IMAGING COLLEGE COACH: JAY JAY TRANSCRIBE DATE/TIME: Nov 20 2015 8:25P RADIOLOGIST: BILLIE SAPP M.D. READ ON: Nov 20 2015 4:33P ORDERING DR: KELLY PARSONS M.D. THIS DOCUMENT HAS BEEN ELECTRONICALLY SIGNED BY: BILLIE SAPP M.D. ON: Nov 21 2015 8:42A COLLEGE COACH: JAY JAY TRANSCRIBE DATE/TIME: Nov 20 2015 8:25P RADIOLOGIST: BILLIE SAPP M.D. READ ON: Nov 20 2015 4:33P ORDERING DR: KELLY PARSONS M.D. THIS DOCUMENT HAS BEEN ELECTRONICALLY SIGNED BY: BILLIE SAPP M.D. ON: Nov 21 2015 8:42A Attending: KELLY PARSONS Requesting: KELLY PARSONS Requesting Attending Attending ID: [id number] Requesting ID: [id number] Report To 1 ID: Report To 1 [...] breast documented in this encounter Care Teams Tight Rope Walker Relationship Specialty [place] [address] [place] [address] PCP - General 08/20/14 12/21/16 documented as of this encounter
--- OUTSIDE RECORDS SUMMARY | 2024-08-10 02:13 | XMS_ITS | Encounter Summary ---
Author Organization [facility] Address [address] [facility] [address] [place] [address] Care Team Providers Care Asthma Educator Name Role Phone Brittani Agosto MD Primary Care Provider Encounter Details Date Type Department Care Team (Late st Contact Info) Description 02/17/2017 Orders Only 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
--- OUTSIDE RECORDS SUMMARY | 2024-08-10 02:13 | XMS_ITS | Encounter Summary ---
Author Organization [facility] Healthcare Address [address] [place] [address] Care Team Providers Care Diamond Assorter Name Role Phone Brittani Agosto MD Primary Care Provider +1 -[phone] Reason for Referral * Diagnostic Imaging (Routine) - Closed Specialty Diagnoses / Procedures Referred By Contac t Referred To Contact Diagnoses Right upper quadrant pain Procedures US Abdomen Limited Brittani Agosto MD Phone: tel: fax: Referral ID Status Reason Start Date Expiration Date Visits Re quested Visits Authorized [id number] Closed 01/20/2017 07/19/2017 1 1 Encounter Details Date Type Department Care Team (Latest Contact Info) Description 01/25/2017 10:59 AM CDT - 01/25/2017 11:59 PM CDT Hospital Encounter [place] [address] [address] Right upper quadrant pain Discharge Disposition: Discharge [...] file 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 DIAGNOSIS: [...] Electronically signed by: Shreyas Barger M.D. ? DIGITAL BUSINESS ANALYST: ??PSC TRANSCRIBE DATE/TIME: ??Jan 25 2017 ??2:18P RADIOLOGIST: ??SHREYAS BARGER M.D. ??READ ON: ??Jan 25 2017 ??2:22P ORDERING DR: BRITTANI AGOSTO M.D. ? THIS DOCUMENT HAS BEEN ELECTRONICALLY SIGNED BY: ??PARUL Perez, SHREYAS ??ON: ??Jan 25 2017 ??2:18P Attending: ??ROBB, ??BRITTANI Requesting: ??ROBB, ??BRITTANI Requesting Fax: ??[phone] Attending Fax: ??[phone] Attending ID: ??[id number] Requesting ID: ??[id number] Report To 1 ID: ?? Report To 1 Name: ??, ?? Report To 1 FAX: ??-- Report To 2 ID: ?? Report To 2 Name: ??, ?? Report To 2 FAX: ??-- NextGen Order #: ??[id number] Procedure Note Miscellaneous, Not In File / Provider, MD Anais - 01/25/2017 DATE OF EXAM: Jan 25 2017 11:33AM Acc#: [id number] EUS [id number] - US RUQ DIAGNOSIS: RIGHT [...] study. Electronically signed by: Shreyas Barger M.D. DIGITAL BUSINESS ANALYST: KATARZYNA TRANSCRIBE DATE/TIME: Jan 25 2017 2:18P RADIOLOGIST: SHREYAS BARGER M.D. READ ON: Jan 25 2017 2:22P ORDERING DR: BRITTANI AGOSTO M.D. THIS DOCUMENT HAS BEEN ELECTRONICALLY SIGNED BY: SHREYAS BARGER M.D. ON: Jan 25 2017 2:18P Attending: BRITTANI AGOSTO Requesting: BRITTANI AGOSTO Requesting Attending Attending ID: [id number] Requesting ID: [id number] Report To 1 ID: Report To 1 Name: , Report To 1 FAX: -- Report To 2 ID: Report To 2 Name: , Report To 2 FAX: -- NextGen Order #: [id number] us Brittani Agosto MD IMG US PROCEDURES Final R esult documented in this encounter Visit Diagnoses Diagnosis Right upper quadrant pain Abdominal pain, right upper quadrant documented in this encounter Care Teams Diamond Assorter Relationship Specialty Start [place] [address] [address] PCP - General 12/22/16 03/14/17 documented as of this encounter
--- OUTSIDE RECORDS SUMMARY | 2024-08-10 02:13 | XMS_ITS | Encounter Summary ---
Author Organization [facility] Facility Care Team Providers Care Chemical Operator Name Role Phone Kelly Olson NP Primary Care Provider +1- [phone] Encounter Details Date Type Department Care Team (Late st Contact Info) Description 12/03/2015 - 12/03/2015 11:59 PM CDT Hospital Encounter 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 ACC# ??Date Time ??Exam [id number] December 03, 2015 16:06:00 C 21178 Diag Mammogram Unilateral L ?? Technologist(s): Yoanna Chanel; ; [id number] December 03, 2015 16:16:00 C 55447 Breast US unilateral, ltd L [id number] December 03, 2015 16:06:00 [facility] 31667 DigBreast Connor uni L ?? Technologist(s): Yoanna Chanel; ; ACC# ??Date Time ??Exam [id number] December 03, 2015 16:06:00 C 35539 Diag Mammogram Unilateral L ?? Technologist(s): Yoanna Chanel; ; [id number] December 03, 2015 16:16:00 C 49276 Breast US unilateral, ltd L [id number] December 03, 2015 16:06:00 C 29246 DigBreast Connor uni L ?? Technologist(s): Yoanna Chanel; ; EXAMINATION: ?? LEFT ??FULL FIELD DIGITAL DIAGNOSTIC MAMMOGRAM, DIGITAL LEFT BREAST TOMOSYNTHESIS, AND LEFT BREAST SONOGRAM HISTORY: Abnormal outside mammogram from [facility] for asymmetry in the upper outer quadrant [...] been scheduled to return to the [facility] for an ultrasound-guided core needle biopsy of the LEFT breast on 12/10/2015 at 12:15 p.m.. OVERALL FINAL ASSESSMENT: BI-RADS Category 4A: Suspicious abnormality. ?? Low suspicion for malignancy. ?? Requested By: Dictated By: ?? GALEN CAMP, ?? on November ??2015 ??8:57A This document has been electronically signed by: MELODIE FERNANDEZ M.D. on November ??5 2015 ??9:52A [id number] Procedure Note Provider, MD Anais - 11/28/2016 MELODIE FERNANDEZ M.D. GALEN CAMP, FINAL REPORT The radiology attending physician has personally reviewed this study, and has reviewed and/or edited this written report and agrees with it. ACC# Date Time Exam [id number] December 03, 2015 16:06:00 [facility] 56550 Diag Mammogram Unilateral L Technologist(s): Yoanna Chanel; ; [id number] December 03, 2015 16:16:00 [facility] 82829 Breast US unilateral, ltd L [id number] December 03, 2015 16:06:00 C 94419 DigBreast Connor uni L Technologist(s): Yoanna Chanel; ; ACC# Date Time Exam [id number] December 03, 2015 16:06:00 C 24286 Diag Mammogram Unilateral L Technologist(s): Yoanna Chanel; ; [id number] December 03, 2015 16:16:00 C 57924 Breast US unilateral, ltd L [id number] December 03, 2015 16:06:00 C 09382 DigBreast Connor uni L Technologist(s): Yoanna Chanel; ; EXAMINATION: LEFT FULL FIELD DIGITAL DIAGNOSTIC MAMMOGRAM, DIGITAL LEFT BREAST TOMOSYNTHESIS, AND LEFT BREAST SONOGRAM HISTORY: Abnormal outside mammogram from [facility] for asymmetry in the upper outer quadrant [...] has been scheduled to return to the [facility] for an ultrasound-guided core needle biopsy of the LEFT breast on 12/10/2015 at 12:15 p.m.. OVERALL FINAL ASSESSMENT: BI-RADS Category 4A: Suspicious abnormality. Low suspicion for malignancy. Requested By: Dictated By: GALEN CAMP, on Dec 04 2015 8:57A This document has been electronically signed by: MELODIE FERNANDEZ M.D. on Dec 05 2015 9:52A [id number] us Historical Provider MD MCMANUS US PROCEDURES [...] agrees with it. ACC# ??Date Time ??Exam [id number] December 03, 2015 16:06:00 [facility] 63093 Diag Mammogram Unilateral L ?? Technologist(s): Yoanna Chanel; ; [id number] December 03, 2015 16:16:00 [facility] 69416 Breast US unilateral, ltd L [id number] December 03, 2015 16:06:00 [facility] 25254 DigBreast Connor uni L ?? Technologist(s): Yoanna Chanel; ; ACC# ??Date Time ??Exam [id number] December 03, 2015 16:06:00 [facility] 81894 Diag Mammogram Unilateral L ?? Technologist(s): Yoanna Chanel; ; [id number] December 03, 2015 16:16:00 [facility] 24019 Breast US unilateral, ltd L [id number] December 03, 2015 16:06:00 [facility] 43366 DigBreast Connor uni L ?? Technologist(s): Yoanna Chanel; ; EXAMINATION: ?? LEFT ??FULL FIELD DIGITAL DIAGNOSTIC MAMMOGRAM, DIGITAL LEFT BREAST TOMOSYNTHESIS, AND LEFT BREAST SONOGRAM HISTORY: Abnormal outside mammogram from [facility] for asymmetry in the upper outer quadrant [...] as a part of this examination. COMPARISON: [id number], 06/14/2012, 11/20/2015 BREAST PARENCHYMAL COMPOSITION: There are [...] been scheduled to return to the [facility] for an ultrasound-guided core needle biopsy of the LEFT breast on 12/10/2015 at 12:15 p.m.. OVERALL FINAL ASSESSMENT: BI-RADS Category 4A: Suspicious abnormality. ?? Low suspicion for malignancy. ?? Requested By: Dictated By: ?? GALEN CAMP, ?? on November ??2015 ??8:57A This document has been electronically signed by: MELODIE FERNANDEZ M.D. on November ??2015 ??9:52A [id number] Procedure Note Provider, MD Anais - 11/28/2016 MELODIE FERNANDEZ M.D. GLAEN CAMP, FINAL REPORT The radiology attending physician has personally reviewed this study, and has reviewed and/or edited this written report and agrees with it. ACC# Date Time Exam [id number] December 03, 2015 16:06:00 [facility] 45162 Diag Mammogram Unilateral L Technologist(s): Yoanna Chanel; ; [id number] December 03, 2015 16:16:00 [facility] 37354 Breast US unilateral, ltd L [id number] December 03, 2015 16:06:00 [facility] 61375 DigBreast Connor uni L Technologist(s): Yoanna Chanel; ; ACC# Date Time Exam [id number] December 03, 2015 16:06:00 [facility] 72456 Diag Mammogram Unilateral L Technologist(s): Yoanna Chanel; ; [id number] December 03, 2015 16:16:00 [facility] 33096 Breast US unilateral, ltd L [id number] December 03, 2015 16:06:00 [facility] 17874 DigBreast Connor uni L Technologist(s): Yoanna Chanel; ; EXAMINATION: LEFT FULL FIELD DIGITAL DIAGNOSTIC MAMMOGRAM, DIGITAL LEFT BREAST TOMOSYNTHESIS, AND LEFT BREAST SONOGRAM HISTORY: Abnormal outside mammogram from [facility] for asymmetry in the upper outer quadrant [...] been scheduled to return to the [facility] for an ultrasound-guided core needle biopsy of the LEFT breast on 12/10/2015 at 12:15 p.m.. OVERALL FINAL ASSESSMENT: BI-RADS Category 4A: Suspicious abnormality. Low suspicion for malignancy. Requested By: Dictated By: GALEN CAMP, on Dec 04 2015 8:57A This document has been electronically signed by: MELODIE FERNANDEZ M.D. on Dec 05 2015 9:52A [id number] us Historical Provider MD MCMANUS MAMMO PROCEDURES [...] agrees with it. ACC# ??Date Time ??Exam [id number] December 03, 2015 16:06:00 [facility] 76192 Diag Mammogram Unilateral L ?? Technologist(s): Yoanna Chanel; ; [id number] December 03, 2015 16:16:00 [facility] 27822 Breast US unilateral, ltd L [id number] December 03, 2015 16:06:00 [facility] 13199 DigBreast Connor uni L ?? Technologist(s): Yoanna Chanel; ; ACC# ??Date Time ??Exam [id number] December 03, 2015 16:06:00 C 37205 Diag Mammogram Unilateral L ?? Technologist(s): Yoanna Chanel; ; [id number] December 03, 2015 16:16:00 [facility] 58962 Breast US unilateral, ltd L [id number] December 03, 2015 16:06:00 [facility] 63203 DigBreast Connor uni L ?? Technologist(s): Yoanna Chanel; ; EXAMINATION: ?? LEFT ??FULL FIELD DIGITAL DIAGNOSTIC MAMMOGRAM, DIGITAL LEFT BREAST TOMOSYNTHESIS, AND LEFT BREAST SONOGRAM HISTORY: Abnormal outside mammogram from [facility] for asymmetry in the upper outer quadrant [...] as a part of this examination. COMPARISON: [id number], 06/14/2012, 11/20/2015 BREAST PARENCHYMAL COMPOSITION: There are [...] has been scheduled to return to the [facility] for an ultrasound-guided core needle biopsy of [...] agrees with it. ACC# Date Time Exam [id number] December 03, 2015 16:06:00 [facility] 40756 Diag Mammogram Unilateral L Technologist(s): Yoanna Chanel; ; [id number] December 03, 2015 16:16:00 [facility] 33495 Breast US unilateral, ltd L [id number] December 03, 2015 16:06:00 [facility] 29751 DigBreast Connor uni L Technologist(s): Yoanna Chanel; ; ACC# Date Time Exam [id number] December 03, 2015 16:06:00 [facility] 99220 Diag Mammogram Unilateral L Technologist(s): Yoanna Chanel; ; [id number] December 03, 2015 16:16:00 [facility] 29506 Breast US unilateral, ltd L [id number] December 03, 2015 16:06:00 [facility] 28098 DigBreast Connor uni L Technologist(s): Yoanna Chanel; ; EXAMINATION: LEFT FULL FIELD DIGITAL DIAGNOSTIC MAMMOGRAM, DIGITAL LEFT BREAST TOMOSYNTHESIS, AND LEFT BREAST SONOGRAM HISTORY: Abnormal outside mammogram from [facility] for asymmetry in the upper outer quadrant [...] as a part of this examination. COMPARISON: [id number], 06/14/2012, 11/20/2015 BREAST PARENCHYMAL COMPOSITION: There are [...] been scheduled to return to the [facility] for an ultrasound-guided core needle biopsy [...] breast documented in this encounter Care Teams Chemical Operator Relationship Specialty [place] [address] [address] PCP - General 08/20/14 12/21/16 documented as of this encounter
--- OUTSIDE RECORDS SUMMARY | 2024-08-10 02:14 | XMS_ITS | Encounter Summary ---
Author Organization [facility] Facility Care Team Providers Care Tax Credit Leasing Consultant Name Role Phone Kelly Olson NP Primary Care Provider +1- [phone] Encounter Details Date Type Department Care Team (Late st Contact Info) Description 05/31/2013 9:13 AM CDT - 06/02/2013 5:43 PM CDT Hospital Encounter [facility] Social History Tobacco Use Types Packs/Day Years Used Date Smoking Tobacco: Never Alcohol Use Standard Drinks/Week Comments Yes 0 (1 standard drink = 0.6 oz pur e alcohol) Comments Unknown Sex and Gender Information Value Date Recorded Sex Assigned at Not on file 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 She lives in [place], [place] with her two children who are [...] 05/31/2013 02:02 P Jeffry Javed M.D. EWS/pxv #[id number] Editing MT: TD: 05/31/2013 11:48:00 cc: Ana Sterling M.D. documented in this encounter Consult Notes * Provider, MD Anais - 05/30/2013 12:00 AM CDT Patient: Jaz Alford Reg No: [id number] [facility] #: [id number] Admit Dt.: 05/30/2013 : 1975 Room No: [id number] Attending: Medicine Medicine Consulting: Gold Burkett M.D. [...] illicit drugs. 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 Has two children and one . [...] Burkett M.D. 06/04/2013 08:37 A Ana Ortiz/lei #[id number] Editing MT: TD: 05/31/2013 07:38:00 cc: Jignesh Butts M.D. Medicine Medicine Gold Burkett M.D. documented in this encounter Miscellaneous Notes * Op Note - Provider, MD Anais - 06/01/2013 12:00 AM CDT Patient: Jaz Alford Reg No: [id number] [facility] #: [id number] Admit Dt.: 05/31/2013 : 1975 Pt Type: 100 Room No: [id number] Attending: Gold Burkett M.D. Surgeon: Gold Burkett M.D. Dictating: Gold Burkett M.D. Service Dt: 06/01/[address] ENGINEER: GINO ALMONTE M.D. ANESTHESIA: GENERAL ENDOTRACHEAL ANESTHESIA. [...] Burkett M.D. 06/04/2013 10:00 A Ana Ortiz/ricardo #[id number] Editing MT: TD: 06/03/2013 17:00:00 cc: Ana [...] Urine 06/02/2013 6:02 AM CDT Sherry Fletcher PUDDLER HELPER LAB BLOOD ORDERABLES Final Result HISTORICAL RESULTS * Discharge Laboratory Cumulative Report (06/02/2013 12:00 AM CDT) 06/02/2013 Narrative HISTORICAL RESULTS - 06/02/2013 7:18 PM CDT ?[facility] ?Department of Laboratories ? [address] [facility] ? [place], [place] [address] Patient Name: ??JAZ ALFORD Rec Number: [id number] Fin Number: ?[id number] Date: ?1975 Sex/Age: ? Female 38 years Admit Date: ?05/31/2013 Discharge Date: 06/02/2013 Doctor: ?[facility] , [address]2 Facility: ?[facility] Location: ?0115 01 [address] Chart Printed: 06/02/2013 19:18 ?? * Abnormal [...] ?URINALYSIS ?Macroscopic ?Test: Color ? Clarity ??Specific [place] ? Reference: [Yellow] ?[Clear] ??[1.003-1.030] ? Units: [...] ?Test: Neut Pct Auto ??Lymph Pct Auto ??Canadian Pct Auto ? Reference: [38.7-74.5] ?[20.0-54.3] ? [4.3-13.5] ? Units: % ?% ? % 05/31/2013 ?? 10:51:00 ?? 91.2 ??H ?6.9 ??L ?1.8 ??L ?Test: Eos Pct Auto ??Baso Pct Auto ??Neut Abs Auto ? Reference: [0.0-6.0] ? [0.0-3.0] ?[1.8-6.6] ? Units: % ? % ?K/cumm 05/31/2013 ?? 10:51:00 ?? 0.0 ? 0.1 ?11.7 ??H ?Test: Lymph Abs Auto ??Canadian Abs Auto ??Eos Abs Auto ? Reference: [...] updated copy of the Tool Book at [email or web address] Current Interpretive Data was last revised 2011. [...] ??21:00:00 ??PT Historical Provider LAB BLOOD ORDERABLES Thaira l Result Performing Organization Address [facility] de Phone Number HISTORICAL RESULTS * Urine chorionic gonadotropin (HCG) (06/01/2013 11:20 AM CDT) HCG, ur Negative HISTORICAL RESULTS Urine 06/01/2013 11:2 0 AM CDT Jeffry Javed MD LAB BLOOD ORDERABLES Tahira l Result Performing Organization Address [facility] de Phone Number HISTORICAL RESULTS * Urine (aerobic) culture (05/31/2013 7:49 PM CDT) Urine, bladder (Unknown) 05/31/2013 7:49 PM CDT 05/31/2013 8:10 PM CDT Narrative HISTORICAL RESULTS - 06/02/2013 2:48 PM CDT Insignificant growth based on current clinical standards. Historical Provider LAB MICROBIOLOGY - GENERA L ORDERABLES Final Result Performing Organization Address [facility] de Phone Number HISTORICAL RESULTS * Urinalysis [...] ORDERABLES F inal Result Performing Organization Address [facility] de Phone Number HISTORICAL [...] ORDERABLES F inal Result Performing Organization Address [facility] de Phone Number HISTORICAL [...] ORDERABLES F inal Result Performing Organization Address [facility] de Phone Number HISTORICAL [...] M.D. FINAL REPORT ACC# ??Date Time ??Exam [id number] May 31, 2013 18:50:00 58758 Chest 2 views Front&Lat EXAMINATION: ?? PA [...] M.D. FINAL REPORT ACC# Date Time Exam [id number] May 31, 2013 18:50:00 99003 Chest 2 views Front&Lat EXAMINATION: PA and [...] BLOOD ORDERABLES Final Result Performing Organization Address City/State/[facility] Co de Phone Number HISTORICAL RESULTS * [...] updated copy of the Tool Book at [email or web address] Current Interpretive Data was last revised 2011. [...] RESULTS - 06/02/2013 4:49 PM CDT ? [facility] ?[facility] ?[place], [place] [address] ? Patient Name: ??ROCÍOPARAM PAULAN Brianne ? Med Rec Number: [id number] ? Fin Number: ?[id number] ? Date: ?1975 ? Sex/Age: ? Female 38 years ? Admit Date: ?05/31/2013 ? Discharge Date: ? Doctor: ?MEDICINE , 1302 ? Facility: ?[facility] ? Location: ?0115 [id number] [id number] ?* Abnormal ??A Alert ??f Footnote [...] agrees with it. ACC# ??Date Time ??Exam [id number] May 30, 2013 22:11:00 01911 MRI Lumbar Spine wo cont EXAMINATION: ?? [...] agrees with it. ACC# Date Time Exam [id number] May 30, 2013 22:11:00 96431 MRI Lumbar Spine wo cont EXAMINATION: Lumbar [...] on filedocumented in this encounter Care Teams Tax Credit Leasing Consultant Relationship Specialty [place] [address] [place] [address] PCP - General 09/15/12 08/19/14 documented as of this encounter
--- OUTSIDE RECORDS SUMMARY | 2024-08-10 02:14 | XMS_ITS | Encounter Summary ---
Author Organization [facility] Facility Care Team Providers Care Tuber Helper Name Role Phone Unavailable Primary Care Provider Unavailabl e Encounter Details Date Type Department Care Team (Late st Contact Info) Description 10/11/2008 12:44 PM CDT - 10/15/2008 11:44 AM CDT Hospital [facility] Kelly Wood MD [address] 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
--- OUTSIDE RECORDS SUMMARY | 2024-08-10 02:14 | XMS_ITS | Encounter Summary ---
Author Organization [facility] Facility Care Team Providers Care Fire Investigation Manager Name Role Phone Kelly Olson NP Primary Care Provider +1- [phone] Encounter Details Date Type Department Care Team (Late st Contact Info) Description 05/09/2013 - 05/09/2013 11:59 PM CDT Hospital Encounter [facility] Yesy Haro MD [address] [place] [address] Antibody response examination Social History Tobacco Use Types Packs/Day Years Used Date Smoking Tobacco: Never Alcohol Use Standard Drinks/Week Comments Yes 0 (1 standard drink = 0.6 oz pur e alcohol) Comments Unknown Sex and Gender Information Value Date Recorded Sex Assigned at Not on file Legal Sex Female 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 [facility] ? Department of Laboratories ?[facility] [address] ?[facility] ?Outpatient ?Physician Patient Name: ? ROCÍODEEJAY Med Rec Number: ?? [id number] Date of : ?1975 Gender/Age: ? Female [...] ORDERABLES Tahira l Result Performing Organization Address [facility] de Phone Number HISTORICAL RESULTS * (ABNORMAL) Serum Rubeola ab, IgG (05/09/2013 3:55 PM CDT) Rubeola ab, IgG Positive(A ) Negative HISTORICAL RESULTS Serum 05/09/2013 3:55 PM CDT Yesy Haro MD LAB BLOOD ORDERABLES Fin al Result Performing Organization Address [facility] de Phone Number HISTORICAL RESULTS documented in this encounter Visit Diagnoses Diagnosis Antibody response examination documented in this encounter Care Teams Fire Investigation Manager Relationship Specialty [place] [address] [address] PCP - General 09/15/12 08/19/14 documented as of this encounter
--- OUTSIDE RECORDS SUMMARY | 2024-08-10 02:14 | XMS_ITS | Encounter Summary ---
Author Organization [facility] Facility Care Team Providers Care [employer]ler [employer] Name Role Phone Unavailable Primary Care Provider Unavailabl e Encounter Details Date Type Department Care Team (Latest Contact Info) Description 09/30/2008 2:37 AM HOSPICE CASE MANAGER - 09/30/2008 4:23 AM HOSPICE CASE MANAGER Hospital Encounter [facility] Dexter Joy MD [address] [place] [address] Other current maternal conditions classifiable elsewhere, antepartum Social History Tobacco Use Types Packs/Day Years Used Date Smoking Tobacco: Never Assessed Comments Unknown Sex and Gender Information Value Date Recorded Sex Assigned at Not on file Legal Sex Female 1:09 AM HOSPICE CASE MANAGER Gender Identity Not on file Sexual Orientation Not on file documented as of this encounter Plan of Treatment Not on file documented as of this encounter Visit Diagnoses Diagnosis Other current maternal conditions classifiable elsewhere, antepartum documented in this encounter
--- OUTSIDE RECORDS SUMMARY | 2024-08-10 02:14 | XMS_ITS | Encounter Summary ---
Author Organization [facility] Facility Care Team Providers Care Technical Training Specialist Name Role Phone Kelly Olson NP Primary Care Provider +1- [phone] Encounter Details Date Type Department Care Team (Late st Contact Info) Description 04/05/2013 - 04/05/2013 11:59 PM CDT Hospital Encounter [facility] Yesy Haro MD [address] [facility] [address] [place] [address] Cramp of limb Social History Tobacco Use Types Packs/Day Years Used Date Smoking Tobacco: Never Assessed Comments Unknown Sex and Gender Information Value Date Recorded Sex Assigned at Not on file Legal Sex Female 1:09 AM TRAIN GATEMAN Gender Identity Not on file Sexual Orientation [...] RESULTS - 04/07/2013 5:14 PM CDT ? [facility] ? Department of Laboratories ?[facility] [address] ?[facility] ?[address] ?[place] [address] Patient Name: ? DEEJAY ALFORD Med Rec Number: ?? [id number] Date of : ?1975 Gender/Age: ? Female [...] 04/05/2013 16:47:50 ??T3 Free: Testing performed by: [facility], [place] [address] ?HEMATOLOGY ?Standard Hematology ?04/05/2013 ?16:47:50 Test ?Units [...] Lymph Pct Auto ??42.0 ?% ? 20.0-54.3 [place] Pct Auto ?? 6.5 ? % ? 4.3-13.5 Eos Pct Auto ?0.8 ? % ? 0.0-6.0 Baso Pct Auto ?? 0.3 ? % ? 0.0-3.0 Neut Abs Auto ?? 4.6 ? K/cumm ??1.8-6.6 Lymph Abs Auto ??3.8 ??H ?K/cumm ??1.2-3.3 [place] Abs Auto ?? 0.6 ? K/cumm ??0.2-1.2 Eos Abs Auto ?0.1 ? K/cumm ??0.0-0.5 Baso Abs Auto ?? 0.0 ? K/cumm ??0.0-0.2 ?04/05/2013 ?16:47:50 Test ?Units ??Reference ESR ?? 29 ??H ? mm/H ?? 0-25 ? SEROLOGY ?04/05/2013 ?16:47:00 Test ?Units ??Reference C-Reactive Protein ??1.0 ? mg/L ?? 0.0-9.9 us Historical Provider MD LAB BLOOD ORDERABLES Tahira l Result Performing Organization Address [facility] Phone Number HISTORICAL RESULTS * Serum alanine transaminase (ALT) (04/05/2013 4:47 PM CDT) ALT 21 7 - 53 Units/L HISTORICAL RESULTS Serum 04/05/2013 4:47 PM CDT Yesy Haro MD LAB BLOOD ORDERABLES Fin al Result Performing Organization Address [facility] de Phone Number HISTORICAL RESULTS * Serum aspartate transaminase (AST) (04/05/2013 4:47 PM CDT) AST 21 11 - 47 Units/L HISTORICAL RESULTS Serum 04/05/2013 4:47 PM CDT Yesy Haro MD LAB BLOOD ORDERABLES Fin al Result Performing Organization Address [facility] de Phone Number HISTORICAL RESULTS * Serum thyroid-stimulating hormone (TSH) (04/05/2013 4:47 PM CDT) TSH 4.66 0.35 - 5.50 mcIUnits/m l HISTORICAL RESULTS Comment: Interpretive Data Hyperthyroid: ??<0.1 mcIUnit/mL Hypothyroid: ??>12.0 mcIUnit/mL Current interpretive data was last revised on 00. Serum 04/05/2013 4:4 7 PM CDT Yesy Haro MD LAB BLOOD ORDERABLES Fin al Result Performing Organization Address [facility] Phone Number HISTORICAL RESULTS * Serum lactate dehydrogenase (LDH) (04/05/2013 4:47 PM CDT) Pathologist [facility] Lactate dehydrogenase (LDH) 199 100 - 250 Units/L HISTORICAL RESULTS Serum 04/05/2013 4:47 PM CDT Yesy Haro MD LAB BLOOD ORDERABLES Fin al Result Performing Organization Address [facility] Phone Number HISTORICAL RESULTS * (ABNORMAL) Serum creatine kinase (CK) (04/05/2013 4:47 PM CDT) CK 231(H) 20 - 170 Units/L HISTORICAL RESULTS Serum 04/05/2013 4:47 PM CDT Yesy Haro MD LAB BLOOD ORDERABLES Fin al Result Performing Organization Address [facility] de Phone Number HISTORICAL RESULTS * Serum C-reactive protein (04/05/2013 4:47 PM CDT) C-RP 1.0 0.0 - 9.9 mg/L HISTORICAL RESULTS Serum 04/05/2013 4:47 PM CDT Yesy Haro MD LAB BLOOD ORDERABLES Fin al Result Performing Organization Address [facility] de Phone Number HISTORICAL RESULTS * Serum triiodothyronine (T3), free (04/05/2013 4:47 PM CDT) Free T3 3.00 2.30 - 4.20 pg/ml HISTORICAL RESULTS Serum 04/05/2013 4:47 PM CDT Result [facility] Yesy Haro MD LAB BLOOD ORDERABLES Fin al Result Performing Organization Address [facility] de Phone Number HISTORICAL RESULTS * Serum aldolase (04/05/2013 4:47 PM CDT) Pathologist [facility] Aldolase 6.1 0.0 - 8.0 Units/L HISTORICAL RESULTS Serum 04/05/2013 4:47 PM CDT Yesy Haro MD LAB BLOOD ORDERABLES Fin al Result Performing Organization Address [facility] de Phone Number HISTORICAL RESULTS * Serum thyroxine (T4), free (04/05/2013 4:47 PM CDT) Free T4 1.01 0.90 - 1.80 ng/dl HISTORICAL RESULTS Serum 04/05/2013 4:47 PM CDT Yesy Haro MD LAB BLOOD ORDERABLES Fin al Result Performing Organization Address [facility] de Phone Number HISTORICAL RESULTS * (ABNORMAL) Blood cell count (CBC) (04/05/2013 4:47 PM CDT) Pathologist [facility] WBC 9.1 3.8 - 9.8 K/cumm HISTORICAL [...] limb documented in this encounter Care Teams Technical Training Specialist Relationship Specialty [place] [address] [address] PCP - General 09/15/12 08/19/14 documented as of this encounter
--- OUTSIDE RECORDS SUMMARY | 2024-08-10 02:14 | XMS_ITS | Encounter Summary ---
Author Organization [facility] Facility Care Team Providers Care Juice Mixer Name Role Phone Kelly Olson NP Primary Care Provider +1- [phone] Encounter Details Date Type Department Care Team (Late st Contact Info) Description 04/28/2013 - 04/28/2013 11:59 PM CDT Hospital Encounter 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 [facility] ? Department of Laboratories ?[place] [address] ?[facility] ?Outpatient ?Physician Patient Name: ? DEEJAY ALFORD Brianne Med Rec Number: ?? [id number] Date of : ?1975 Gender/Age: ? Female [...] ORDERABLES Tahira granger Result Performing Organization Address [facility] Co de Phone Number HISTORICAL RESULTS * [...] ORDERABLES Fin al Result Performing Organization Address [facility] Co de Phone Number HISTORICAL RESULTS documented in this encounter Visit Diagnoses Diagnosis Antibody response examination documented in this encounter Care Teams Juice Mixer Relationship Specialty [place] [address] [address] [place] [address] PCP - General 09/15/12 08/19/14 documented as of this encounter
--- OUTSIDE RECORDS SUMMARY | 2024-08-10 02:14 | XMS_ITS | Encounter Summary ---
Author Organization [facility] Facility Care Team Providers Care Employee Benefits Manager Name Role Phone Kelly Olson NP Primary Care Provider +- [phone] Encounter Details Date Type Department Care Team (Late st Contact Info) Description 03/15/2012 - 03/15/2012 11:59 PM T Hospital Encounter [facility] Yesy Haro MD [address] [facility] [place] [address] Routine general medical examination at a health care facility Social History Tobacco Use Types Packs/Day Years Used Date Smoking Tobacco: Never Assessed Comments Unknown Sex and Gender Information Value Date Recorded Sex Assigned at Not on file Legal Sex Female 1:09 AM 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
--- OUTSIDE RECORDS SUMMARY | 2024-08-10 02:14 | XMS_ITS | Encounter Summary ---
Author Organization [facility] Facility Care Team Providers Care Turn Machine Operator Name Role Phone Unavailable Primary Care Provider Unavailabl e Encounter Details Date Type Department Care Team (Late st Contact Info) Description 03/19/2008 - 03/19/2008 11:59 PM CDT Hospital Encounter [facility] Dexter Joy MD [address] [place] [address] Social History Tobacco Use Types Packs/Day Years Used Date Smoking Tobacco: Never Assessed Comments Unknown Sex and Gender Information Value Date Recorded Sex Assigned at Not on file Legal Sex Female 1:09 AM DICTAPHONE TRANSCRIBER Gender Identity Not on file Sexual Orientation Not on file documented as of this encounter Plan of Treatment Not on file documented as of this encounter Visit Diagnoses Not on filedocumented in this encounter
--- OUTSIDE RECORDS SUMMARY | 2024-08-10 02:14 | XMS_ITS | Encounter Summary ---
Author Organization [facility] Facility Care Team Providers Care Air Boatswain Name Role Phone Kelly Olson NP Primary Care Provider +1- [phone] Encounter Details Date Type Department Care Team (Latest Contact Info) Description 11/24/2012 - 11/24/2012 11:59 PM CDT Hospital Encounter [facility] Arthralgia of temporomandibular joint; History of other injury Social History Tobacco Use Types Packs/Day Years Used Date Smoking Tobacco: Never Assessed Comments Unknown Sex and Gender Information Value Date Recorded Sex Assigned at Not on file Legal Sex Female 1:09 AM 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 ACC# ??Date Time ??Exam [id number] Nov 24, 2012 10:08:00 [id number] Skull < 4 views EXAMINATION: ?Skull less [...] agrees with it. ACC# Date Time Exam [id number] Nov 24, 2012 10:08:00 84377 Skull < 4 views EXAMINATION: Skull less [...] agrees with it. ACC# ??Date Time ??Exam [id number] Nov 24, 2012 09:15:00 14885 TMJ Bilateral Open/Closed L [id number] Nov 24, 2012 09:48:00 81364 Orthopantogram ACC# ??Date Time ??Exam [id number] Nov 24, 2012 09:15:00 83755 TMJ Bilateral Open/Closed L [id number] Nov 24, 2012 09:48:00 [id number] Orthopantogram EXAMINATION: ? 1. Bilateral temporomandibular joints [...] agrees with it. ACC# Date Time Exam [id number] Nov 24, 2012 09:15:00 74888 TMJ Bilateral Open/Closed L [id number] Nov 24, 2012 09:48:00 26085 Orthopantogram ACC# Date Time Exam [id number] Nov 24, 2012 09:15:00 91673 TMJ Bilateral Open/Closed L [id number] Nov 24, 2012 09:48:00 70079 Orthopantogram EXAMINATION: 1. Bilateral temporomandibular joints open/closed [...] agrees with it. ACC# ??Date Time ??Exam [id number] Nov 24, 2012 09:15:00 85701 TMJ Bilateral Open/Closed L [id number] Nov 24, 2012 09:48:00 41013 Orthopantogram ACC# ??Date Time ??Exam [id number] Nov 24, 2012 09:15:00 20308 TMJ Bilateral Open/Closed L [id number] Nov 24, 2012 09:48:00 53232 Orthopantogram EXAMINATION: ? 1. Bilateral temporomandibular joints [...] agrees with it. ACC# Date Time Exam [id number] Nov 24, 2012 09:15:00 20519 TMJ Bilateral Open/Closed L [id number] Nov 24, 2012 09:48:00 99953 Orthopantogram ACC# Date Time Exam [id number] Nov 24, 2012 09:15:00 52512 TMJ Bilateral Open/Closed L [id number] Nov 24, 2012 09:48:00 36590 Orthopantogram EXAMINATION: 1. Bilateral temporomandibular joints open/closed [...] injury documented in this encounter Care Teams Air Boatswain Relationship Specialty [place] [address] [address] PCP - General 09/15/12 08/19/14 documented as of this encounter
--- OUTSIDE RECORDS SUMMARY | 2024-08-10 02:14 | XMS_ITS | Encounter Summary ---
Author Organization [facility] Facility Care Team Providers Care Move Coordinator Name Role Phone Kelly Olson NP Primary Care Provider +1- [phone] Encounter Details Date Type Department Care Team (Late st Contact Info) Description 04/17/2011 - 04/17/2011 11:59 PM T Hospital Encounter [facility] eYsy Haro MD [address] [facility] [address] [place] [address] Hypothyroidism; Vitamin D deficiency; Impaired fasting glucose; Other and unspecified hyperlipidemia Social History Tobacco Use Types Packs/Day Years Used Date Smoking Tobacco: Never Assessed Comments Unknown Sex and Gender Information Value Date Recorded Sex Assigned at Not on file Legal Sex Female 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
--- OUTSIDE RECORDS SUMMARY | 2024-08-10 02:14 | XMS_ITS | Encounter Summary ---
Author Organization [facility] Facility Care Team Providers Care Plumbing Engineering Draftsperson Name Role Phone Kelly Olson NP Primary Care Provider +1- [phone] Encounter Details Date Type Department Care Team (Late st Contact Info) Description 09/15/2012 - 09/15/2012 11:59 PM ENVIRONMENTAL FIELD TEAM MEMBER Hospital Encounter [facility] T[facility]andra Jha MD [address] [facility] [address] [place] [address] Pain in joint, lower leg Social History Tobacco Use Types Packs/Day Years Used Date Smoking Tobacco: Never Assessed Comments Unknown Sex and Gender Information Value Date Recorded Sex Assigned at Not on file Legal Sex Female 1:09 AM ENVIRONMENTAL FIELD TEAM MEMBER Gender Identity Not on file [...] KNEE 4+ VW Routine 09/15/2012 3:32 PM ENVIRONMENTAL FIELD TEAM MEMBER documented in this encounter Results * XR Knee 4+ VW (09/15/2012 3:32 PM ENVIRONMENTAL FIELD TEAM MEMBER) Anatomical Region Laterality Modality N/A Radiographic Leti ging 09/15/2012 3:32 PM ENVIRONMENTAL FIELD TEAM MEMBER Narrative 09/16/2012 4:16 PM ENVIRONMENTAL FIELD TEAM MEMBER LIDIA LOZOYA M.D. REJI BRANNON, FINAL REPORT The radiology attending physician has personally reviewed this study, and has reviewed and/or edited this written report and agrees with it. ACC# ??Date Time ??Exam [id number] Sep 15, 2012 15:32:00 [id number] Knee Complete min 4 views L EXAMINATION: [...] agrees with it. ACC# Date Time Exam [id number] Sep 15, 2012 15:32:00 [id number] Knee Complete min 4 views L EXAMINATION: [...] leg documented in this encounter Care Teams Plumbing Engineering Draftsperson Relationship Specialty [place] [address] [address] PCP - General 09/15/12 08/19/14 documented as of this encounter
--- OUTSIDE RECORDS SUMMARY | 2024-08-10 02:14 | XMS_ITS | Encounter Summary ---
Author Organization [facility] Facility Care Team Providers Care Braided Rug Maker Name Role Phone Unavailable Primary Care Provider Unavailabl e Encounter Details Date Type Department Care Team (Late st Contact Info) Description 12/07/2008 - 12/07/2008 11:59 PM CDT Hospital Encounter [facility] Kisha Osborn MD [address] [facility] [id number] [place] [address] Other specified episodic mood disorder Social History Tobacco Use Types Packs/Day Years Used Date Smoking Tobacco: Never Assessed Comments Unknown Sex and Gender Information Value Date Recorded Sex Assigned at Not on file Legal Sex Female 1:09 AM COMFORT STATION ATTENDANT Gender Identity Not on file Sexual Orientation Not on file documented as of this encounter Plan of Treatment Not on file documented as of this encounter Visit Diagnoses Diagnosis Other specified episodic mood disorder documented in this encounter
--- OUTSIDE RECORDS SUMMARY | 2024-08-10 02:14 | XMS_ITS | Encounter Summary ---
Author Organization [facility] Facility Care Team Providers Care Accounting Intern Name Role Phone Unavailable Primary Care Provider Unavailabl e Encounter Details Date Type Department Care Team (Late st Contact Info) Description 05/11/2008 - 05/11/2008 11:59 PM CDT Hospital Encounter [facility] Eliane Lanza Social History Tobacco Use Types Packs/Day Years Used Date Smoking Tobacco: Never Assessed Comments Unknown Sex and Gender Information Value Date Recorded Sex Assigned at Not on file Legal Sex Female 1:09 AM SERVICES COORDINATOR Gender Identity Not on file Sexual Orientation Not on file documented as of this encounter Plan of Treatment Not on file documented as of this encounter Visit Diagnoses Not on filedocumented in this encounter
--- OUTSIDE RECORDS SUMMARY | 2024-08-10 02:14 | XMS_ITS | Encounter Summary ---
Author Organization [facility] Facility Care Team Providers Care Exhibit Cleaner Name Role Phone Kelly Olson NP Primary Care Provider +1- [phone] Encounter Details Date Type Department Care Team (Late st Contact Info) Description 03/17/2012 - 03/17/2012 11:59 PM T Hospital Encounter [facility] Tonny Zepeda MD [address] [facility] [address] [place] [address] Benign neoplasm of eyelid; Benign neoplasm of skin of other and unspecified parts of face Social History Tobacco Use Types Packs/Day Years Used Date Smoking Tobacco: Never Assessed Comments Unknown Sex and Gender Information Value Date Recorded Sex Assigned at Not on file Legal Sex Female 1:09 AM RESTAURANT ASSISTANT Gender Identity Not on file Sexual [...] face documented in this encounter Care Teams Exhibit Cleaner Relationship Specialty [place] [address] [place] [id number] PCP - General 11/07/10 09/14/12 documented as of this encounter
--- OUTSIDE RECORDS SUMMARY | 2024-08-10 02:14 | XMS_ITS | Encounter Summary ---
Author Organization [facility] Facility Care Team Providers Care Cardiology Manager Name Role Phone Unavailable Primary Care Provider Unavailabl e Encounter Details Date Type Department Care Team (Late st Contact Info) Description 05/21/2008 - 05/21/2008 11:59 PM CDT Hospital Encounter [facility] Dexter Joy MD [address] [place] [address] Social History Tobacco Use Types Packs/Day Years Used Date Smoking Tobacco: Never Assessed Comments Unknown Sex and Gender Information Value Date Recorded Sex Assigned at Not on file Legal Sex Female 1:09 AM PARACHUTE PANEL JOINER Gender Identity Not on file Sexual Orientation Not on file documented as of this encounter Plan of Treatment Not on file documented as of this encounter Visit Diagnoses Not on filedocumented in this encounter
--- OUTSIDE RECORDS SUMMARY | 2024-08-10 02:14 | XMS_ITS | Encounter Summary ---
Author Organization [facility] Facility Care Team Providers Care Granite Countertop Installer Name Role Phone Kelly Olson NP Primary Care Provider + [phone] Encounter Details Date Type Department Care Team (Late st Contact Info) Description 03/06/2010 - 03/06/2010 11:59 PM CDT Hospital Encounter [facility] Dexter Webb MD [facility] [address] [facility] [address], [place] [address] Screening for malignant neoplasm of cervix Social History Tobacco Use Types Packs/Day Years Used Date Smoking Tobacco: Never Assessed Comments Unknown Sex and Gender Information Value Date Recorded Sex Assigned at Not on file Legal Sex Female 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
--- OUTSIDE RECORDS SUMMARY | 2024-08-10 02:14 | XMS_ITS | Encounter Summary ---
Author Organization [facility] Facility Care Team Providers Care Tomato Paste Maker Name Role Phone Kelly Olson NP Primary Care Provider +1- [phone] Encounter Details Date Type Department Care Team (Late st Contact Info) Description 02/20/2010 - 02/20/2010 11:59 PM T Hospital Encounter [facility] Yesy Haro MD [address] [facility] [address] [place] [address] Maternal thyroid dysfunction, antepartum; Hypothyroidism; Maternal mental disorder, antepartum; Other complication of , antepartum; Other and unspecified hyperlipidemia Social History Tobacco Use Types Packs/Day Years Used Date Smoking Tobacco: Never Assessed Comments Unknown Sex and Gender Information Value Date Recorded Sex Assigned at Not on file Legal Sex Female 1:09 AM TRAVEL COUNSELOR Gender Identity Not on file Sexual [...] hyperlipidemia documented in this encounter Care Teams Tomato Paste Maker Relationship Specialty [place] [address] [facility] [address] [place] [address] PCP - General 06/18/09 11/06/10 documented as of this encounter
--- OUTSIDE RECORDS SUMMARY | 2024-08-10 02:14 | XMS_ITS | Encounter Summary ---
Author Organization [facility] Facility Care Team Providers Care Account Strategist Name Role Phone Unavailable Primary Care Provider Unavailabl e Encounter Details Date Type Department Care Team (Late st Contact Info) Description 02/13/2008 - 02/13/2008 11:59 PM CDT Hospital Encounter [facility] Dexter Joy MD [address] [place] [address] Social History Tobacco Use Types Packs/Day Years Used Date Smoking Tobacco: Never Assessed Comments Unknown Sex and Gender Information Value Date Recorded Sex Assigned at Not on file Legal Sex Female 1:09 AM SET UP MECHANIC HEADING MACHINES Gender Identity Not on file Sexual Orientation Not on file documented as of this encounter Plan of Treatment Not on file documented as of this encounter Visit Diagnoses Not on filedocumented in this encounter
--- OUTSIDE RECORDS SUMMARY | 2024-08-10 02:14 | XMS_ITS | Encounter Summary ---
Author Organization [facility] Facility Care Team Providers Care Rigging Slinger Name Role Phone Kelly Olson NP Primary Care Provider + [phone] Encounter Details Date Type Department Care Team (Late st Contact Info) Description 06/18/2009 - 06/18/2009 11:59 PM PETROLEUM REFINERY WORKER Hospital Encounter [facility] Brant Gregorio MD [address] [facility] [address] [place], [place] [id number] Benign neoplasm of other specified sites of skin Social History Tobacco Use Types Packs/Day Years Used Date Smoking Tobacco: Never Assessed Comments Unknown Sex and Gender Information Value Date Recorded Sex Assigned at Not on file Legal Sex Female 1:09 AM PETROLEUM REFINERY WORKER Gender Identity Not on file Sexual Orientation Not on file documented as of this encounter Plan of Treatment Not on file documented as of this encounter Visit Diagnoses Diagnosis Benign neoplasm of other specified sites of skin documented in this encounter Care Teams Rigging Slinger Relationship Specialty [place] [address] [facility] [address] [place] [address] PCP - General 06/18/09 11/06/10 documented as of this encounter
--- OUTSIDE RECORDS SUMMARY | 2024-08-10 02:14 | XMS_ITS | Encounter Summary ---
Author Organization [facility] Facility Care Team Providers Care Clinical Account Specialist Name Role Phone Kelly Olson NP Primary Care Provider +1- [phone] Encounter Details Date Type Department Care Team (Late st Contact Info) Description 04/07/2013 - 04/07/2013 11:59 PM CDT Hospital Encounter [facility] TARAHCONYesy Jha MD [address] [facility] [address] [address] [place] [address] Cramp of limb Social History Tobacco Use Types Packs/Day Years Used Date Smoking Tobacco: Never Assessed Comments Unknown Sex and Gender Information Value Date Recorded Sex Assigned at Not on file Legal Sex Female 1:09 AM ACCOUNT DEVELOPMENT REPRESENTATIVE Gender Identity Not on file Sexual [...] RESULTS - 04/07/2013 5:14 PM CDT ? [facility] ? Department of Laboratories ?[place] [address] ?[facility] ?[address] ?[place] [address] Patient Name: ? DEEJAY ALFORD Med Rec Number: ?? [id number] Date of : ?1975 Gender/Age: ? Female 38 years Doctor: ? Yesy Haro M.D. Report Date/Time: 04/07/2013 17:14 ?* Abnormal ??C Critical ??f Footnote ??^ Corrected ??L Low ??H High ?i Interp Data ??@ Reference Lab ?Chart Type: Cumulative ?URINALYSIS ?04/07/2013 ?13:49:37 Test ?Units ??Reference Color ? Colorless ?[Yellow] Clarity ? Cloudy ??* ?[Clear] Specific Butler ??1.005 ?[1.003-1.030] pH ?5.5 ?[5.0-8.0] Albumin ? [...] Address City/[facility]/ZIP Co de Phone Number HISTORICAL RESULTS * [...] al Result Performing Organization Address [facility] de Phone Number HISTORICAL RESULTS documented in this encounter Visit Diagnoses Diagnosis Cramp of limb documented in this encounter Care Teams Clinical Account Specialist Relationship Specialty [place] [address] [address] PCP - General 09/15/12 08/19/14 documented as of this encounter
--- OUTSIDE RECORDS SUMMARY | 2024-08-10 02:14 | XMS_ITS | Encounter Summary ---
Author Organization [facility] Facility Care Team Providers Care Account Information Clerk Name Role Phone Unavailable Primary Care Provider Unavailabl e Encounter Details Date Type Department Care Team (Late st Contact Info) Description 03/23/2008 - 03/23/2008 11:59 PM CDT Hospital Encounter [facility] Dexter Joy MD [address] [place] [address] Social History Tobacco Use Types Packs/Day Years Used Date Smoking Tobacco: Never Assessed Comments Unknown Sex and Gender Information Value Date Recorded Sex Assigned at Not on file Legal Sex Female 1:09 AM MANAGER COSTING Gender Identity Not on file Sexual Orientation Not on file documented as of this encounter Plan of Treatment Not on file documented as of this encounter Visit Diagnoses Not on filedocumented in this encounter
--- OUTSIDE RECORDS SUMMARY | 2024-08-10 02:14 | XMS_ITS | Encounter Summary ---
Author Organization [facility] Facility Care Team Providers Care Aerodynamics Professor Name Role Phone Kelly Olson NP Primary Care Provider +1- [phone] Encounter Details Date Type Department Care Team (Late st Contact Info) Description 07/17/2011 - 07/17/2011 11:59 PM LABORER WOOD PRESERVING PLANT Hospital Encounter [facility] [place] [address] [place], [place] [id number] Exostosis Social History Tobacco Use Types Packs/Day Years Used Date Smoking Tobacco: Never Assessed Comments Unknown Sex and Gender Information Value Date Recorded Sex Assigned at Not on file Legal Sex Female 1:09 AM LABORER WOOD PRESERVING PLANT Gender Identity Not on file Sexual Orientation [...] site documented in this encounter Care Teams Aerodynamics Professor Relationship Specialty [place] [address] [place] [address] PCP - General 11/07/10 09/14/12 documented as of this encounter
--- OUTSIDE RECORDS SUMMARY | 2024-08-10 02:14 | XMS_ITS | Encounter Summary ---
Author Organization [facility] Facility Care Team Providers Care Portuguese Tutor Name Role Phone Unavailable Primary Care Provider Unavailabl e Encounter Details Date Type Department Care Team (Late st Contact Info) Description 05/10/2008 - 05/10/2008 11:59 PM CDT Hospital Encounter [facility] Kelly Wood MD [address] [facility] [id number] [place], [place] [id number] Social History Tobacco Use Types Packs/Day Years Used Date Smoking Tobacco: Never Assessed Comments Unknown Sex and Gender Information Value Date Recorded Sex Assigned at Not on file Legal Sex Female 1:09 AM SHIELD CLEANER Gender Identity Not on file Sexual Orientation Not on file documented as of this encounter Plan of Treatment Not on file documented as of this encounter Visit Diagnoses Not on filedocumented in this encounter
--- OUTSIDE RECORDS SUMMARY | 2024-08-10 02:14 | XMS_ITS | Encounter Summary ---
Author Organization [facility] Facility Care Team Providers Care Brim Ironer Hand Name Role Phone Unavailable Primary Care Provider Unavailabl e Encounter Details Date Type Department Care Team (Late st Contact Info) Description 06/18/2008 - 06/18/2008 11:59 PM CYBER POLICY AND STRATEGY PLANNER Hospital Encounter [facility] Dexter Joy MD [address] [place] [address] Other specified screening Social History Tobacco Use Types Packs/Day Years Used Date Smoking Tobacco: Never Assessed Comments Unknown Sex and Gender Information Value Date Recorded Sex Assigned at Not on file Legal Sex Female 1:09 AM CYBER POLICY AND STRATEGY PLANNER Gender Identity Not on file Sexual Orientation Not on file documented as of this encounter Plan of Treatment Not on file documented as of this encounter Visit Diagnoses Diagnosis Other specified screening documented in this encounter
--- OUTSIDE RECORDS SUMMARY | 2024-08-10 02:14 | XMS_ITS | Encounter Summary ---
Author Organization [facility] Facility Care Team Providers Care Crew Trainer Name Role Phone Kelly Olson NP Primary Care Provider +1- [phone] Encounter Details Date Type Department Care Team (Late st Contact Info) Description 06/14/2012 - 06/14/2012 11:59 PM [facility] Hospital Encounter [facility] Oma Portillo NP [address] [facility] [address] [place] [address] Other screening mammogram Social History Tobacco Use Types Packs/Day Years Used Date Smoking Tobacco: Never Assessed Comments Unknown Sex and Gender Information Value Date Recorded Sex Assigned at Not on file Legal Sex Female 1:09 AM GRAIN ELEVATOR AGENT Gender Identity Not on file Sexual [...] mammogram documented in this encounter Care Teams Crew Trainer Relationship Specialty [place] [address] [facility] [address] [place], [place] [id number] PCP - General 11/07/10 09/14/12 documented as of this encounter
--- OUTSIDE RECORDS SUMMARY | 2024-08-10 02:14 | XMS_ITS | Encounter Summary ---
Author Organization [facility] Facility Care Team Providers Care Oil Heater Operator Name Role Phone Kelly Olson NP Primary Care Provider +- [phone] Encounter Details Date Type Department Care Team (Late st Contact Info) Description 09/17/2010 - 09/17/2010 11:59 PM LIQUOR ESTABLISHMENT MANAGER Hospital Encounter [facility] Yesy Talbert MD [address] [facility] [address] [place] [address] Hypothyroidism; Other abnormal glucose; Pure hypercholesterolemia Social History Tobacco Use Types Packs/Day Years Used Date Smoking Tobacco: Never Assessed Comments Unknown Sex and Gender Information Value Date Recorded Sex Assigned at Not on file Legal Sex Female 1:09 AM LIQUOR ESTABLISHMENT MANAGER Gender Identity Not on file Sexual Orientation Not on file documented as of this encounter Plan of Treatment Not on file documented as of this encounter Visit Diagnoses Diagnosis Hypothyroidism Unspecified hypothyroidism Other abnormal glucose Pure hypercholesterolemia documented in this encounter Care Teams Oil Heater Operator Relationship Specialty [place] [address] [facility] [address] [place] [address] PCP - General 06/18/09 11/06/10 documented as of this encounter
--- OUTSIDE RECORDS SUMMARY | 2024-08-10 02:14 | XMS_ITS | Encounter Summary ---
Author Organization [facility] Facility Care Team Providers Care Director Sales Name Role Phone Kelly Olson NP Primary Care Provider +1- [phone] Encounter Details Date Type Department Care Team (Late st Contact Info) Description 03/02/2013 - 03/02/2013 11:59 PM CDT Hospital Encounter [facility] Yesy Haro MD [address] [facility] [address] [place] [address] Cramp of limb Social History Tobacco Use Types Packs/Day Years Used Date Smoking Tobacco: Never Assessed Comments Unknown Sex and Gender Information Value Date Recorded Sex Assigned at Not on file Legal Sex Female 1:09 AM RIGGER UP Gender Identity Not on file Sexual [...] RESULTS - 03/03/2013 9:07 AM CDT ? [facility] ? Department of Laboratories ?[facility] [address] ?[facility] ?Outpatient ?Physician Patient Name: ? DEEJAY ALFORD Med Rec Number: ?? [id number] Date of : ?1975 Gender/Age: ? Female [...] ORDERABLES Tahira l Result Performing Organization Address [facility] de Phone Number HISTORICAL RESULTS * (ABNORMAL) Serum creatine kinase (CK) (03/02/2013 3:30 PM CDT) CK 175(H) 20 - 170 Units/L HISTORICAL RESULTS Serum 03/02/2013 3:30 PM CDT Yesy Haro MD LAB BLOOD ORDERABLES Fin al Result Performing Organization Address [facility] de Phone Number HISTORICAL RESULTS * Plasma amylase (03/02/2013 3:30 PM CDT) [place], [address] 28 - 100 Units/L HISTORICAL RESULTS Plasma 03/02/2013 3:30 PM CDT Yesy Haro MD LAB BLOOD ORDERABLES Fin al Result Performing Organization Address [facility] de Phone Number HISTORICAL RESULTS documented in this encounter Visit Diagnoses Diagnosis Cramp of limb documented in this encounter Care Teams Director Sales Relationship Specialty [place] [address] [address] [place] [address] PCP - General 09/15/12 08/19/14 documented as of this encounter
--- OUTSIDE RECORDS SUMMARY | 2024-08-10 02:14 | XMS_ITS | Encounter Summary ---
Author Organization [facility] Facility Care Team Providers Care Review Specialist Name Role Phone Unavailable Primary Care Provider Unavailabl e Encounter Details Date Type Department Care Team (Late st Contact Info) Description 08/30/2008 - 08/30/2008 11:59 PM GROUNDS MANAGER Hospital Encounter [facility] Kelly Wood MD [address] [facility] [phone] [place], [place] [id number] Encounter for supervision of normal in multigravida Social History Tobacco Use Types Packs/Day Years Used Date Smoking Tobacco: Never Assessed Comments Unknown Sex and Gender Information Value Date Recorded Sex Assigned at Not on file Legal Sex Female 1:09 AM GROUNDS MANAGER Gender Identity Not on file Sexual Orientation Not on file documented as of this encounter Plan of Treatment Not on file documented as of this encounter Visit Diagnoses Diagnosis Encounter for supervision of normal in multigravida documented in this encounter
--- OUTSIDE RECORDS SUMMARY | 2024-08-10 02:14 | XMS_ITS | Encounter Summary ---
Author Organization [facility] Facility Care Team Providers Care Syrup Mixer Helper Name Role Phone Kelly Olson NP Primary Care Provider +1- [phone] Encounter Details Date Type Department Care Team (Late st Contact Info) Description 02/24/2013 - 02/24/2013 11:59 PM CDT Hospital Encounter [facility] TARAHCONYesy Jha MD [address] [facility] [address] [place] [address] Cramp of limb Social History Tobacco Use Types Packs/Day Years Used Date Smoking Tobacco: Never Assessed Comments Unknown Sex and Gender Information Value Date Recorded Sex Assigned at Not on file Legal Sex Female 1:09 AM BAND NAILER Gender Identity Not on file Sexual Orientation [...] RESULTS - 02/25/2013 9:08 AM CDT ? [facility] ? Department of Laboratories ?[facility] [address] ?[facility] ?[address] [address] ?[place] [address] Patient Name: ? DEEJAY ALFORD Med Rec Number: ?? [id number] Date of : ?1975 Gender/Age: ? Female [...] 15:06:00 Test ? Units ? Reference TSH (Arrington) i ??1.22 ?mcIUnit/mL ??0.35-5.50 02/24/2013 15:06:00 TSH (Arrington): Interpretive Data Hyperthyroid: ??<0.1 mcIUnit/mL Hypothyroid: ??>12.0 mcIUnit/mL Current interpretive data was last revised on 00. ?Other Chemistry ?02/24/2013 ?15:06:00 Test ?Units ??Reference 25 Hydroxy Vitamin D ??26 ??L ? ng/mL ??30-100 ?HEMATOLOGY ?02/24/2013 ?15:06:00 Test ?Units ??Reference ESR ?? 13 ?mm/H ?? 0-25 us Historical Provider LAB BLOOD ORDERABLES Tahira l Result Performing Organization Address [facility] de Phone Number HISTORICAL RESULTS * Serum thyroid-stimulating hormone (TSH) (02/24/2013 3:06 PM CDT) TSH 1.22 0.35 - 5.50 mcIUnits/m l HISTORICAL RESULTS Comment: Interpretive Data Hyperthyroid: ??<0.1 mcIUnit/mL Hypothyroid: ??>12.0 mcIUnit/mL Current interpretive data was last revised on 00. Serum 02/24/2013 3:06 PM CDT us Yesy Haro MD LAB BLOOD ORDERABLES Fin al Result Performing Organization Address [facility] de Phone Number HISTORICAL RESULTS * (ABNORMAL) Serum creatine kinase (CK) (02/24/2013 3:06 PM CDT) CK 178(H) 20 - 170 Units/L HISTORICAL RESULTS Serum 02/24/2013 3:06 PM CDT Yesy Haro MD LAB BLOOD ORDERABLES Fin al Result Performing Organization Address [facility] de Phone Number HISTORICAL RESULTS * (ABNORMAL) Serum 25-hydroxycholecalciferol (vitamin D) (02/24/2013 3:06 PM CDT) 25-OH Vit D 26(L) 30 - 100 ng/ml HISTORICAL RESULTS Serum 02/24/2013 3:06 PM CDT Yesy Haro MD LAB BLOOD ORDERABLES Fin al Result Performing Organization Address [facility] de Phone Number HISTORICAL RESULTS * [...] ORDERABLES Fin al Result Performing Organization Address City/[facility] Co de Phone Number HISTORICAL RESULTS * Serum magnesium (02/24/2013 3:06 PM CDT) Pathologist [facility] Magnesium 2.3 1.4 - 2.5 mg/dl HISTORICAL RESULTS Serum 02/24/2013 3:06 PM CDT Yesy Haro MD LAB BLOOD ORDERABLES Fin al Result Performing Organization Address [facility] de Phone Number HISTORICAL RESULTS * Serum glucose (02/24/2013 3:06 PM CDT) Glucose 94 65 - 199 mg/dl HISTORICAL RESULTS Serum 02/24/2013 3:06 PM CDT Yesy Haro MD LAB BLOOD ORDERABLES Fin al Result Performing Organization Address [facility] de Phone Number HISTORICAL RESULTS * Blood erythrocyte sedimentation rate (ESR) (02/24/2013 3:06 PM CDT) Erythrocyte sedimentation rate 13.0 0.0 - 25.0 mm/hr HISTORICAL RESULTS Blood specimen (specimen) 02/24/2013 3:06 PM CDT Yesy Haro MD LAB BLOOD ORDERABLES Fin al Result Performing Organization Address [facility] de Phone Number HISTORICAL RESULTS documented in this encounter Visit Diagnoses Diagnosis Cramp of limb documented in this encounter Care Teams Syrup Mixer Helper Relationship Specialty [place] [address] [address] PCP - General 09/15/12 08/19/14 documented as of this encounter
--- OUTSIDE RECORDS SUMMARY | 2024-08-10 02:14 | XMS_ITS | Encounter Summary ---
Author Organization [facility] Facility Care Team Providers Care Front Desk Admin Name Role Phone Kelly Olson NP Primary Care Provider +1- [phone] Encounter Details Date Type Department Care Team (Latest Contact Info) Description 05/06/2013 - 05/06/2013 11:59 PM CDT Hospital Encounter [facility] Low back pain; Degeneration of lumbar or lumbosacral intervertebral disc Social History Tobacco Use Types Packs/Day Years Used Date Smoking Tobacco: Never Assessed Comments Unknown Sex and Gender Information Value Date Recorded Sex Assigned at Not on file Legal Sex Female 1:09 AM SEWING MACHINE ADJUSTER Gender Identity Not on file Sexual Orientation [...] agrees with it. ACC# ??Date Time ??Exam [id number] May 06, 2013 13:40:00 [id number] MRI Lumbar Spine wo cont ACC# ??Date Time ??Exam [id number] May 06, 2013 13:40:00 [id number] MRI Lumbar Spine wo cont ?? EXAMINATION: [...] agrees with it. ACC# Date Time Exam [id number] May 06, 2013 13:40:00 [id number] MRI Lumbar Spine wo cont ACC# Date Time Exam [id number] May 06, 2013 13:40:00 [id number] MRI Lumbar Spine wo cont EXAMINATION: Lumbar [...] disc documented in this encounter Care Teams Front Desk Admin Relationship Specialty [place] [address] [address] PCP - General 09/15/12 08/19/14 documented as of this encounter
--- OUTSIDE RECORDS SUMMARY | 2024-08-10 02:14 | XMS_ITS | Encounter Summary ---
Author Organization [facility] Facility Care Team Providers Care Fish Cleaner Name Role Phone Kelly Olson NP Primary Care Provider +1- [phone] Encounter Details Date Type Department Care Team (Late st Contact Info) Description 07/28/2011 - 07/28/2011 11:59 PM WASHER HAND Hospital Encounter [facility] [place] [address] [place], [place] [id number] Pain in joint, shoulder region Social History Tobacco Use Types Packs/Day Years Used Date Smoking Tobacco: Never Assessed Comments Unknown Sex and Gender Information Value Date Recorded Sex Assigned at Not on file Legal Sex Female 1:09 AM WASHER HAND Gender Identity Not on file Sexual [...] region documented in this encounter Care Teams Fish Cleaner Relationship Specialty [place] [address] [place] [address] PCP - General 11/07/10 09/14/12 documented as of this encounter
--- OUTSIDE RECORDS SUMMARY | 2024-08-10 02:14 | XMS_ITS | Encounter Summary ---
Author Organization [facility] Healthcare Address [address] [place] [address] Care Team Providers Care Director Of Marketing Communications Name Role Phone Kelly Olson NP Primary Care Provider +1- [phone] Encounter Details Date Type Department Care Team (Late st Contact Info) Description 02/16/2014 1:32 PM CDT - 02/16/2014 11:59 PM CDT Hospital Encounter [facility] Kelly Wood MD [address] [facility] [phone] [place], [place] [id number] Other screening mammogram; Inconclusive mammogram Social History Tobacco Use Types Packs/Day Years Used Date Smoking Tobacco: Never Alcohol Use Standard Drinks/Week Comments Yes 0 (1 standard drink = 0.6 oz pur e alcohol) Comments Unknown Sex and Gender Information Value Date Recorded Sex Assigned at Not on file Legal Sex Female 1:09 AM INDUCTOR TESTER Gender Identity Not on file Sexual [...] CDT Narrative 03/19/2014 11:41 PM CDT Acc#: ??[id number] JENNIFER 0047 - Screening Mamm W Connor [...] Prior outside mammographic examination dated 06/14/2012 from [facility] is now available for comparison. The [...] TECHNOLOGIST: ?? LINDA ROBISON, TECHNOLOGIST MEDICAL IMAGING CLOTH WASHER OPERATOR: ??PW2 TRANSCRIBE DATE/TIME: ??Feb 16 2014 ??5:20P RADIOLOGIST: ??HARRY PENA M.D. ??READ ON: ??Feb 16 2014 ??3:49P ORDERING DR: KELLY PARSONS M.D. THIS DOCUMENT HAS BEEN ELECTRONICALLY SIGNED BY: ??HARRY PENA M.D. ??ON: ??Mar 19 2014 11:41P ? CLOTH WASHER OPERATOR: ??PW2 TRANSCRIBE DATE/TIME: ??Feb 16 2014 ??5:20P RADIOLOGIST: ??HARRY PENA M.D. ??READ ON: ??Feb 16 2014 ??3:49P ORDERING DR: KELLY PARSONS M.D. THIS DOCUMENT HAS BEEN ELECTRONICALLY SIGNED BY: ??HARRY PENA M.D. ??ON: ??Mar 19 2014 11:41P ? CLOTH WASHER OPERATOR: ??PW2 TRANSCRIBE DATE/TIME: ??Feb 16 2014 ??5:20P RADIOLOGIST: ??HARRY PENA M.D. ??READ ON: ??Feb 16 2014 ??3:49P ORDERING DR: KELLY PARSONS M.D. THIS DOCUMENT HAS BEEN ELECTRONICALLY SIGNED BY: ??HARRY PENA M.D. ??ON: ??Mar 19 2014 11:41P Requesting Fax: ??[phone] Procedure Note Provider, MD Anais - 11/28/2016 Acc#: [id number] JENNIFER 0047 - Screening Mamm W Connor [...] Prior outside mammographic examination dated 06/14/2012 from [facility] is now available for comparison. The [...] RECOMMENDED. TECHNOLOGIST: LINDA ROBISON, TECHNOLOGIST MEDICAL IMAGING CLOTH WASHER OPERATOR: JAY JAY TRANSCRIBE DATE/TIME: Feb 16 2014 5:20P RADIOLOGIST: HARRY PENA M.D. READ ON: Feb 16 2014 3:49P ORDERING DR: KELLY PARSONS M.D. THIS DOCUMENT HAS BEEN ELECTRONICALLY SIGNED BY: HARRY PENA M.D. ON: Mar 19 2014 11:41P CLOTH WASHER OPERATOR: JAY JAY TRANSCRIBE DATE/TIME: Feb 16 2014 5:20P RADIOLOGIST: HARRY PENA M.D. READ ON: Feb 16 2014 3:49P ORDERING DR: KELLY PARSONS M.D. THIS DOCUMENT HAS BEEN ELECTRONICALLY SIGNED BY: HARRY PENA M.D. ON: Mar 19 2014 11:41P CLOTH WASHER OPERATOR: JAY JAY TRANSCRIBE DATE/TIME: Feb 16 2014 [...] mammogram documented in this encounter Care Teams Director Of Marketing Communications Relationship Specialty [place] [address] [place] [address] PCP - General 09/15/12 08/19/14 documented as of this encounter
--- OUTSIDE RECORDS SUMMARY | 2024-08-10 02:14 | XMS_ITS | Encounter Summary ---
Author Organization [facility] Facility Care Team Providers Care Renewable Energy Trader Name Role Phone Unavailable Primary Care Provider Unavailabl e Encounter Details Date Type Department Care Team (Late st Contact Info) Description 03/08/2008 - 03/08/2008 11:59 PM CDT Hospital Encounter [facility] Dexter Joy MD [address] [place] [address] Social History Tobacco Use Types Packs/Day Years Used Date Smoking Tobacco: Never Assessed Comments Unknown Sex and Gender Information Value Date Recorded Sex Assigned at Not on file Legal Sex Female 1:09 AM HEATING MECHANIC Gender Identity Not on file Sexual Orientation Not on file documented as of this encounter Plan of Treatment Not on file documented as of this encounter Visit Diagnoses Not on filedocumented in this encounter
--- OUTSIDE RECORDS SUMMARY | 2024-08-10 02:14 | XMS_ITS | Encounter Summary ---
Author Organization [facility] Facility Care Team Providers Care Piece Goods Packer Name Role Phone Unavailable Primary Care Provider Unavailabl e Encounter Details Date Type Department Care Team (Late st Contact Info) Description 02/09/2008 - 02/09/2008 11:59 PM CDT Hospital Encounter [facility] Dexter Joy MD [address] [place] [address] Social History Tobacco Use Types Packs/Day Years Used Date Smoking Tobacco: Never Assessed Comments Unknown Sex and Gender Information Value Date Recorded Sex Assigned at Not on file Legal Sex Female 1:09 AM SURVEY AND MAPPING 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
--- OUTSIDE RECORDS SUMMARY | 2024-08-10 02:14 | XMS_ITS | Encounter Summary ---
Author Organization [facility] Facility Care Team Providers Care Plaster Block Layer Name Role Phone Kelly Olson NP Primary Care Provider + [phone] Encounter Details Date Type Department Care Team (Late st Contact Info) Description 07/19/2009 - 07/19/2009 11:59 PM BOW REHAIRER Hospital Encounter [facility] Dexter Webb MD [address] [place] [address] Hypothyroidism Social History Tobacco Use Types Packs/Day Years Used Date Smoking Tobacco: Never Assessed Comments Unknown Sex and Gender Information Value Date Recorded Sex Assigned at Not on file Legal Sex Female 1:09 AM BOW REHAIRER Gender Identity Not on file Sexual Orientation Not on file documented as of this encounter Plan of Treatment Not on file documented as of this encounter Visit Diagnoses Diagnosis Hypothyroidism Unspecified hypothyroidism documented in this encounter Care Teams Plaster Block Layer Relationship Specialty [place] [address] [address] [place] [address] PCP - General 06/18/09 11/06/10 documented as of this encounter
--- OUTSIDE RECORDS SUMMARY | 2024-08-10 02:14 | XMS_ITS | Encounter Summary ---
Author Organization [facility] Facility Care Team Providers Care Granite Polisher Name Role Phone Kelly Olson NP Primary Care Provider + [phone] Encounter Details Date Type Department Care Team (Late st Contact Info) Description 09/06/2009 - 09/06/2009 11:59 PM DATER ASSEMBLER Hospital Encounter [facility] Dexter Webb MD [address] [facility] [address], [place] [id number] Maternal thyroid dysfunction, antepartum Social History Tobacco Use Types Packs/Day Years Used Date Smoking Tobacco: Never Assessed Comments Unknown Sex and Gender Information Value Date Recorded Sex Assigned at Not on file Legal Sex Female 1:09 AM DATER ASSEMBLER Gender Identity Not on file Sexual Orientation Not on file documented as of this encounter Plan of Treatment Not on file documented as of this encounter Visit Diagnoses Diagnosis Maternal thyroid dysfunction, antepartum Thyroid dysfunction, antepartum documented in this encounter Care Teams Granite Polisher Relationship Specialty [place] [address] [address] [facility] [address] [place] [address] PCP - General 06/18/09 11/06/10 documented as of this encounter
--- OUTSIDE RECORDS SUMMARY | 2024-08-10 02:14 | XMS_ITS | Encounter Summary ---
Author Organization [facility] Facility Care Team Providers Care Staff Weapons Officer Name Role Phone Unavailable Primary Care Provider Unavailabl e Encounter Details Date Type Department Care Team (Late st Contact Info) Description 06/12/2009 - 06/12/2009 11:59 PM COAL DIGGER Hospital Encounter [facility] Dexter Joy MD [address] [place] [address] Hypothyroidism Social History Tobacco Use Types Packs/Day Years Used Date Smoking Tobacco: Never Assessed Comments Unknown Sex and Gender Information Value Date Recorded Sex Assigned at Not on file Legal Sex Female 1:09 AM COAL DIGGER Gender Identity Not on file Sexual Orientation Not on file documented as of this encounter Plan of Treatment Not on file documented as of this encounter Visit Diagnoses Diagnosis Hypothyroidism Unspecified hypothyroidism documented in this encounter
--- OUTSIDE RECORDS SUMMARY | 2024-08-10 02:14 | XMS_ITS | Encounter Summary ---
Author Organization [facility] Facility Care Team Providers Care Spot Sprayer Name Role Phone Unavailable Primary Care Provider Unavailabl e Encounter Details Date Type Department Care Team (Late st Contact Info) Description 09/16/2007 - 09/16/2007 11:59 PM DOCTOR OSTEOPATHIC Hospital Encounter [facility] Dexter Joy MD [address] [place] [address] Social History Tobacco Use Types Packs/Day Years Used Date Smoking Tobacco: Never Assessed Comments Unknown Sex and Gender Information Value Date Recorded Sex Assigned at Not on file Legal Sex Female 1:09 AM DOCTOR OSTEOPATHIC Gender Identity Not on file Sexual Orientation Not on file documented as of this encounter Plan of Treatment Not on file documented as of this encounter Visit Diagnoses Not on filedocumented in this encounter
--- OUTSIDE RECORDS SUMMARY | 2024-08-10 02:14 | XMS_ITS | Encounter Summary ---
Author Organization [facility] Facility Care Team Providers Care Enamel Finisher Name Role Phone Unavailable Primary Care Provider Unavailabl e Encounter Details Date Type Department Care Team (Late st Contact Info) Description 11/26/2008 - 11/26/2008 11:59 PM CDT Hospital Encounter [facility] Kisha Osborn MD [address] [facility] [phone] [place] [address] Screening for malignant neoplasm of cervix Social History Tobacco Use Types Packs/Day Years Used Date Smoking Tobacco: Never Assessed Comments Unknown Sex and Gender Information Value Date Recorded Sex Assigned at Not on file Legal Sex Female 1:09 AM FIELD APPRAISER Gender Identity Not on file Sexual Orientation Not on file documented as of this encounter Plan of Treatment Not on file documented as of this encounter Visit Diagnoses Diagnosis Screening for malignant neoplasm of cervix Screening for malignant neoplasm of the cervix documented in this encounter
--- OUTSIDE RECORDS SUMMARY | 2024-08-10 02:14 | XMS_ITS | Encounter Summary ---
Author Organization [facility] Facility Care Team Providers Care Internet Sales Manager Name Role Phone Unavailable Primary Care Provider Unavailabl e Encounter Details Date Type Department Care Team (Latest Contact Info) Description 07/04/2008 - 07/04/2008 11:59 PM CLAIM ADMINISTRATOR Hospital Encounter [facility] Dexter Joy MD [address] [facility] [address] [place] [address] Encounter for supervision of normal in multigravida Social History Tobacco Use Types Packs/Day Years Used Date Smoking Tobacco: Never Assessed Comments Unknown Sex and Gender Information Value Date Recorded Sex Assigned at Not on file Legal Sex Female 1:09 AM CLAIM ADMINISTRATOR Gender Identity Not on file Sexual Orientation Not on file documented as of this encounter Plan of Treatment Not on file documented as of this encounter Visit Diagnoses Diagnosis Encounter for supervision of normal in multigravida documented in this encounter
--- OUTSIDE RECORDS SUMMARY | 2024-08-10 02:14 | XMS_ITS | Encounter Summary ---
Author Organization [facility] Facility Care Team Providers Care Pool Servicer Name Role Phone Kelly Olson NP Primary Care Provider +- [phone] Encounter Details Date Type Department Care Team (Late st Contact Info) Description 04/16/2011 - 04/16/2011 11:59 PM T Hospital Encounter [facility] Yesy Haro MD [address] [address] [place] [address] Pain in joint, forearm Social History Tobacco Use Types Packs/Day Years Used Date Smoking Tobacco: Never Assessed Comments Unknown Sex and Gender Information Value Date Recorded Sex Assigned at Not on file Legal Sex Female 1:09 AM CONFIGURATION MANAGEMENT ADMINISTRATOR Gender Identity Not on file Sexual Orientation Not on file documented as of this encounter Plan of Treatment Not on file documented as of this encounter Visit Diagnoses Diagnosis Pain in joint, forearm documented in this encounter Care Teams Pool Servicer Relationship Specialty [place] [address] [facility] [address] [place] [address] PCP - General 11/07/10 09/14/12 documented as of this encounter
--- OUTSIDE RECORDS SUMMARY | 2024-08-10 02:14 | XMS_ITS | Encounter Summary ---
Author Organization [facility] Facility Care Team Providers Care Beck Operator Name Role Phone Kelly Olson NP Primary Care Provider +[phone]- [phone] Encounter Details Date Type Department Care Team (Late st Contact Info) Description 03/22/2013 - 03/22/2013 11:59 PM CDT Hospital Encounter [facility] Jha MD [address] [facility] [place] [address] Cramp of limb Social History Tobacco Use Types Packs/Day Years Used Date Smoking Tobacco: Never Assessed Comments Unknown Sex and Gender Information Value Date Recorded Sex Assigned at Not on file Legal Sex Female 1:09 AM ACCOUNTING SUPERVISOR Gender Identity Not on file Sexual [...] RESULTS - 03/22/2013 5:08 PM CDT ? [facility] ? Department of Laboratories ?[facility] [address] ?[facility] ?Outpatient ?Physician Patient Name: ? DEEJAY ALFORD Med Rec Number: ?? [id number] Date of : ?1975 Gender/Age: ? Female [...] ??0.0-8.0 03/22/2013 10:45:00 ??Aldolase: Testing performed by: [place] [address] us Historical Provider LAB BLOOD ORDERABLES Tahira l Result Performing Organization Address [facility] de Phone Number HISTORICAL RESULTS * Serum creatine kinase (CK) (03/22/2013 10:45 AM CDT) CK 157 20 - 170 Units/L HISTORICAL RESULTS Serum 03/22/2013 10:4 5 AM CDT Yesy Haro MD LAB BLOOD ORDERABLES Fin al Result Performing Organization Address [facility] de Phone Number HISTORICAL RESULTS * Serum aldolase (03/22/2013 10:45 AM CDT) Aldolase 4.8 0.0 - 8.0 Units/L HISTORICAL RESULTS Serum 03/22/2013 10:4 5 AM CDT Yesy Haro MD LAB BLOOD ORDERABLES Fin al Result Performing Organization Address [facility] de Phone Number HISTORICAL RESULTS documented in this encounter Visit Diagnoses Diagnosis Cramp of limb documented in this encounter Care Teams Beck Operator Relationship Specialty [place] [address] [facility] [address] [place] [address] PCP - General 09/15/12 08/19/14 documented as of this encounter
--- OUTSIDE RECORDS SUMMARY | 2024-08-10 02:15 | XMS_ITS | Encounter Summary ---
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
--- OUTSIDE RECORDS SUMMARY | 2024-08-10 02:15 | XMS_ITS | Encounter Summary ---
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
--- OUTSIDE RECORDS SUMMARY | 2024-08-10 02:15 | XMS_ITS | Encounter Summary ---
Author Organization [facility] Facility Care Team Providers Care Icu Rn Name Role Phone Unavailable Primary Care Provider Unavailabl e Encounter Details Date Type Department Care Team (Late st Contact Info) Description 08/09/2006 - 08/09/2006 11:59 PM DRY ROOM OPERATOR Hospital Encounter [facility] Dexter Joy MD [address] [place] [address] Social History Tobacco Use Types Packs/Day Years Used Date Smoking Tobacco: Never Assessed Comments Unknown Sex and Gender Information Value Date Recorded Sex Assigned at Not on file Legal Sex Female 1:09 AM DRY ROOM OPERATOR Gender Identity Not on file Sexual Orientation Not on file documented as of this encounter Plan of Treatment Not on file documented as of this encounter Visit Diagnoses Not on filedocumented in this encounter
--- OUTSIDE RECORDS SUMMARY | 2024-08-10 02:15 | XMS_ITS | Encounter Summary ---
Author Organization [facility] Facility Care Team Providers Care Batcher Operator Name Role Phone Unavailable Primary Care Provider Unavailabl e Encounter Details Date Type Department Care Team (Late st Contact Info) Description 06/28/2007 - 06/28/2007 11:59 PM GERM DRIER Hospital Encounter [facility] Dexter Joy MD [address] [place] [address] Social History Tobacco Use Types Packs/Day Years Used Date Smoking Tobacco: Never Assessed Comments Unknown Sex and Gender Information Value Date Recorded Sex Assigned at Not on file Legal Sex Female 1:09 AM GERM DRIER Gender Identity Not on file Sexual Orientation Not on file documented as of this encounter Plan of Treatment Not on file documented as of this encounter Visit Diagnoses Not on filedocumented in this encounter
--- OUTSIDE RECORDS SUMMARY | 2024-08-10 02:15 | XMS_ITS | Encounter Summary ---
Author Organization 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
--- OUTSIDE RECORDS SUMMARY | 2024-08-10 02:15 | XMS_ITS | Encounter Summary ---
Author Organization [facility] Facility Care Team Providers Care Business Development Officer Name Role Phone Unavailable Primary Care Provider Unavailabl e Encounter Details Date Type Department Care Team (Late st Contact Info) Description 08/01/2007 - 08/01/2007 11:59 PM THIRD HELPER Hospital Encounter [facility] Dexter Joy MD [address] [place] [address] Social History Tobacco Use Types Packs/Day Years Used Date Smoking Tobacco: Never Assessed Comments Unknown Sex and Gender Information Value Date Recorded Sex Assigned at Not on file Legal Sex Female 1:09 AM THIRD HELPER Gender Identity Not on file Sexual Orientation Not on file documented as of this encounter Plan of Treatment Not on file documented as of this encounter Visit Diagnoses Not on filedocumented in this encounter
== END 2024-08-03 08:13 | disposition left against medical advice (07) ==
LOC: ANHED 07:27
DX: R20.0 Anesthesia of skin (principal)
CPT/HCPCS: 99199